=== PATIENT | female | born 1940 | race Caucasian/White ===

== ENCOUNTER 2017-09-02 17:07 | Emergency (ER) | payer MEDICARE, OTHER, SELFPAY ==
[2017-09-02 17:09] VITALS: BP 160/90; PULSE 74; RESP 18; TEMP 37.2; O2SAT 97
--- NOTE | 2017-09-02 17:29 | EKG12_ITS ---
Test Reason : N/V Blood Pressure : / mmHG Vent. Rate : 068 BPM Atrial Rate : 068 BPM P-R Int : 130 ms QRS Dur : 086 ms QT Int : 400 ms P-R-T Axes : 079 065 069 degrees QTc Int : 425 ms Normal sinus rhythm Nonspecific ST abnormality Abnormal ECG Confirmed by BETTIE SNOW, QUETA ([id number]), image editor DIANELYS GREENBERG ([id number]) on 09/07/2017 2:13:03 PM Referred By: ESTHELA Confirmed By:QUETA ALEXANDRE MD
--- NOTE | 2017-09-02 17:29 | CT_ITS ---
STUDY: CT BRAIN WITHOUT CONTRAST REASON FOR EXAM: Female, 77 years old. Headache, nausea/vomiting RADIATION DOSAGE (If Supplied By Facility): CTDIvol = ( 60.81 ) mGy, DLP = ( 998.67 ) mGycm TECHNIQUE: Transaxial CT imaging of the brain was performed without administration of intravenous contrast material. Individualized dose optimization techniques were used for this CT. COMPARISON: None. FINDINGS: Normal soft tissue structures. Normal calvarium. Slightly prominent size ventricles and extra-axial spaces with frontal atrophy. Mild white matter microangiopathic ischemic changes of the cerebral hemispheres. Normal basal ganglia and thalami. Normal brainstem. Normal cerebellum. There is no intracranial hemorrhage. There are no findings of an acute ischemic infarction. Normal visualized paranasal sinuses. CT/Brain/Head without Contrast IMPRESSION: Age-related and chronic changes of the brain. Electronically Signed: Morris Gaston DO at 18:22 EDT Tel [phone], Service support ,
[2017-09-02 17:37] VITALS: PULSE 69; RESP 15
[2017-09-02] MEDS: Ondansetron 4 MG/2 ML Vial IV (17:48)
[2017-09-02] MEDS: 0.9% Normal Saline 1,000 ML 150 ML IV (17:48)
[2017-09-02 18:01] LABS: Absolute Lymphocyte Count 4.71 X10^3/ul (0.83-4.51); Absolute Neutrophil Count 18.4 X10^3/uL (2.0-7.7); Basophil# 0.03 X10^3/uL; Basophil% 0.1 % (0-1); Eosinophil# 0.02 X10^3/uL; Eosinophils% 0.1 % (0-5); Hematocrit 43.7 % (37-47); Hemoglobin 14.8 g/dl (12.0-15.0); Lymphocyte # 4.71 X10^3/ul (4.0); Lymphocyte % 19.6 % (19-41); Mean Corp Hgb Conc 33.9 g/gl (32-36); Mean Corpuscular Hgb 31.6 pg (27.0-32.0); Mean Corpuscular Volume 93.4 fL (81-99); Mean Platelet Vol. 11.3 fl (6.2-12.0); Monocyte# 0.68 X10^3/uL; Monocyte% 2.8 % (0-10); Neutrophil # 18.42 X10^3/uL (2.7-7.7); Neutrophil % 76.9 % (47-70); Platelet Count 319 K/mm3 (150-450); RBC Distribution Width CV 13.4 % (11.6-14.6); RBC Distribution Width SD 44.2 fl (35.1-43.9); Red Blood Count 4.68 M/mm3 (4.2-5.4)
[2017-09-02] MEDS: Meclizine HCl 25 MG Tablet PO (18:05)
[2017-09-02 18:06] LABS: POSITIVE COUNT NO; POSITIVE DIFFERENTIAL NO; POSITIVE MORPHOLOGY NO
[2017-09-02 18:38] LABS: Anion Gap 9 (5-15); BUN 20 mg/dL (7-18); BUN/Creat Ratio 30.6 RATIO (10-20); Calcium,Total 9.2 mg/dL (8.5-10.1); Chloride 108 mmol/L (98-107); Creatinine, Serum 0.65 mg/dL (0.55-1.02); EST Glomerular Filtration Rate 94 mL/min (>60); Est Glom Filt Rate - Afr Amer 114 mL/min (>60); Estimated Creatinine Clearance 36.68 ml/min; Glucose 147 mg/dL (74-106); Lipase 206 U/L (73-393); Potassium 4.2 mmol/L (3.5-5.1); Sodium Level 144 mmol/L (136-145)
--- NOTE | 2017-09-02 18:50 | RAD_ITS ---
STUDY: X-RAY CHEST REASON FOR EXAM: Female, 77 years old. Cough TECHNIQUE: Frontal and lateral views COMPARISON: None. FINDINGS: The lungs are slightly hyperaerated. There is no demonstrated pleural abnormality. Mildly prominent size heart. Normal mediastinum and porfirio. There are metallic densities of the mediastinum. Normal visualized pulmonary arteries. Normal visualized aortic arch and descending thoracic aorta. Degenerative changes of the thoracic spine. Normal visualized ribs, clavicles, and shoulders. There is no demonstrated abnormality of the visualized soft tissue structures of the upper abdomen. RAD/Chest PA and Lateral IMPRESSION: Mildly prominent cardiac shadow. No acute pulmonary pathology. Electronically Signed: Morris Gaston DO at 19:02 EDT Tel [phone], Service support ,
[2017-09-02 19:25] VITALS: BP 147/68; PULSE 68; RESP 14; O2SAT 100
--- NOTE | 2017-09-02 19:59 | ED.VISSUMM ---
- ER Visit Summary Date of Service: 09/02/17 Chief Complaint: [Dizziness and vomiting] History of Present Illness: The patient is a 77 F [presents to the emergency department with complaint of dizziness and vomiting that started prior to coming the emergency department. 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 Patient took her medications when she got home and then went to a [facility] appointment. While sitting at the [employer] she developed dizziness initially that she describes as spinning sensation followed by vomiting. Patient is vomited multiple times and presents for evaluation. Patient denies any pain in her head. She denies any chest pain or shortness of breath. Patient states that she has had vertiginous type symptoms in the past off and on but not this severe. Patient does have a history of non-Hodgkin's lymphoma and COPD. There is question as to whether or not her symptoms are related to the Augmentin and prednisone that she started today.] Physical Examination: [HEENT-PERRLA, EOMI. Cranial nerves II through XII grossly intact. TMs clear. Mucous membranes moist. No adenopathy. Cardiovascular-regular rate and rhythm without murmur or ectopy Lungs-clear to auscultation, chest wall stable without crepitus or subcu emphysema Abdomen-normoactive bowel sounds, soft, nontender, no rebound or rigidity, no peritoneal signs. Neuro equn-kalqzk-khxy and heel rahman testing within normal limits, negative Romberg, negative pronator drift, fundi benign. Hallpike maneuver performed was positive for nystagmus with head turn to the right and left. Extremities-intact ?4, normal range of motion, normal pulses, atraumatic] Test Results: [EKG obtained on arrival shows sinus rhythm with a ventricular rate of 60 bpm with some nonspecific ST changes noted. CBC with differential showed an elevated white count of 24,000, hemoglobin 14.8, hematocrit 44, platelets 319. Chemistries unremarkable. Lipase was 206. Troponin is less than 0.015. CT scan of the brain without contrast showed chronic involutional changes otherwise nothing acute. Chest x-ray showed nothing acute.] Emergency Department Course and Treatment: [Patient was medicated with Zofran and Antivert and had significant improvement in her symptoms. Patient was able to ambulate to the bathroom and back without difficulty. Patient had no further vomiting. At this point I feel her elevated white blood cell count likely related to her non-Hodgkin's lymphoma in combination with reactive phenomenon due to the vomiting as well as the fact that she has started prednisone. Patient states that with her non-Hodgkin's lymphoma which she is currently being followed by Dr. Mcmillan he has had intermittent spikes in her white blood cell counts. I do not see any other etiology of infection.] Treatment Plan: [Patient will be discharged home with a prescription for Antivert as well as Zofran. Patient advised to return if persistent dizziness, vomiting, or condition should worsen in any way. At this point my suspicion is that patient likely has vertigo and her symptoms were not related to the prednisone and Augmentin. If patient should notice that soon after taking these medications tomorrow her symptoms return then we may need to look at discontinuing these medications.] Disposition: [Discharged home in stable condition] Impression: [Vertigo Vomiting] This note was generated with [employer] dictation software. It may contain incorrect words, spelling, and punctuation that were not noted in review of the chart prior to signing ED Disposition - Plan for ED Patient: Chief Complaint: Nausea/Vomiting/Diarrhea Referrals: Donnell Tse MD [Primary Care Provider] -
--- NOTE | 2017-09-02 20:04 | ED.DCSUM_ITS ---
- ER Visit Summary Date of Service: 09/02/17 Chief Complaint: [Dizziness and vomiting] History of Present Illness: The patient is a 77 F [presents to the emergency department with complaint of dizziness and vomiting that started prior to coming the emergency department. 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 Patient took her medications when she got home and then went to a [facility] appointment. While sitting at the [employer] she developed dizziness initially that she describes as spinning sensation followed by vomiting. Patient is vomited multiple times and presents for evaluation. Patient denies any pain in her head. She denies any chest pain or shortness of breath. Patient states that she has had vertiginous type symptoms in the past off and on but not this severe. Patient does have a history of non-Hodgkin's lymphoma and COPD. There is question as to whether or not her symptoms are related to the Augmentin and prednisone that she started today.] Physical Examination: [HEENT-PERRLA, EOMI. Cranial nerves II through XII grossly intact. TMs clear. Mucous membranes moist. No adenopathy. Cardiovascular-regular rate and rhythm without murmur or ectopy Lungs-clear to auscultation, chest wall stable without crepitus or subcu emphysema Abdomen-normoactive bowel sounds, soft, nontender, no rebound or rigidity, no peritoneal signs. Neuro ufyl-dxmdwe-vixd and heel rahman testing within normal limits, negative Romberg, negative pronator drift, fundi benign. Hallpike maneuver performed was positive for nystagmus with head turn to the right and left. Extremities-intact ?4, normal range of motion, normal pulses, atraumatic] Test Results: [EKG obtained on arrival shows sinus rhythm with a ventricular rate of 60 bpm with some nonspecific ST changes noted. CBC with differential showed an elevated white count of 24,000, hemoglobin 14.8, hematocrit 44, platelets 319. Chemistries unremarkable. Lipase was 206. Troponin is less than 0.015. CT scan of the brain without contrast showed chronic involutional changes otherwise nothing acute. Chest x-ray showed nothing acute.] Emergency Department Course and Treatment: [Patient was medicated with Zofran and Antivert and had significant improvement in her symptoms. Patient was able to ambulate to the bathroom and back without difficulty. Patient had no further vomiting. At this point I feel her elevated white blood cell count likely related to her non-Hodgkin's lymphoma in combination with reactive phenomenon due to the vomiting as well as the fact that she has started prednisone. Patient states that with her non-Hodgkin's lymphoma which she is currently being followed by Dr. Mcmillan he has had intermittent spikes in her white blood cell counts. I do not see any other etiology of infection.] Treatment Plan: [Patient will be discharged home with a prescription for Antivert as well as Zofran. Patient advised to return if persistent dizziness, vomiting, or condition should worsen in any way. At this point my suspicion is that patient likely has vertigo and her symptoms were not related to the prednisone and Augmentin. If patient should notice that soon after taking these medications tomorrow her symptoms return then we may need to look at discontinuing these medications.] Disposition: [Discharged home in stable condition] Impression: [Vertigo Vomiting] This note was generated with [employer] dictation software. It may contain incorrect words, spelling, and punctuation that were not noted in review of the chart prior to signing ED Disposition - Plan for ED Patient: Chief Complaint: Nausea/Vomiting/Diarrhea Referrals: Donnell Tse MD [Primary Care Provider] -
--- NOTE | 2017-09-02 20:04 | ED.DEP ---
ED Disposition - Plan for ED Patient: Chief Complaint: Nausea/Vomiting/Diarrhea Instructions: ED BPV Vertigo, ED Nausea Vomiting Prescriptions: Ondansetron [Zofran Odt] 4 mg PO Q8H PRN PRN #10 tab PRN Reason: Nausea Meclizine HCl [Antivert] 25 mg PO 4X/DAY PRN PRN #20 tab PRN Reason: Dizziness Referrals: Donnell Tse MD [Primary Care Provider] - 3-5 Days
[2017-09-02 20:19] VITALS: BP 155/100; PULSE 73; RESP 16; O2SAT 96
--- NOTE | 2017-09-02 20:20 | ED.RN ---
PT GIVEN WRITTEN AND VERBAL DISCHARGE INSTRUCTIONS AND HOME GOING PRESCRIPTIONS. PT VERBALIZES UNDERSTANDING AND DENIES ANY FURTHER QUESTIONS. THIS RN D/C IV. ANGIOCATH INTACT. SITE COVERED WITH 2X2 GAUZE AND PAPER TAPE. THIS RN ASSISTS PT IN DRESSING AND AMBULATES WITH PT OUT TO FAMILY VEHICLE.
== END 2017-09-02 20:21 | disposition home or self-care (01) ==
LOC: ED 18:31
PROVIDERS: Emergency Provider Emergency Medicine; Family Provider Family Medicine; PCP Family Medicine
DX: R42 Dizziness and giddiness (principal); R11.10 Vomiting, unspecified; C85.90 Non-Hodgkin lymphoma, unspecified, unspecified site; J44.9 Chronic obstructive pulmonary disease, unspecified; Z90.710 Acquired absence of both cervix and uterus; Z79.899 Other long term (current) drug therapy
CPT/HCPCS: 70450; 71046; 80048; 83690; 84484; 85025; 93005; 96361; 96374; 99285; J7030; A4216; J2405

== ENCOUNTER → 2018-03-15 06:43 | Outpatient (CLI) | payer MEDICARE, OTHER, SELFPAY ==
--- NOTE | 2018-03-15 06:58 | MRI_ITS ---
STUDY: MRI BRAIN WITH AND WITHOUT CONTRAST (ATTENTION INTERNAL AUDITORY CANALS - I.A.C.'s) REASON FOR EXAM: Female, 77 years old. dizziness, LEFT ear tinnitus, x several months. TECHNIQUE: Standardized multiplanar fat and water weighted pulse sequences were obtained. 5 ml of Gadavist contrast material was administered intravenously for the contrast portion of the examination. COMPARISON: CT of the head dated September 02 FINDINGS: Normal bilateral temporal bones. Normal bilateral internal auditory canals. There is no demonstrated intracanalicular or cisternal vestibular schwannoma (acoustic neuroma). Normal bilateral cochlea, vestibules and semicircular canals. There is approximately 0.5 x 2.0 cm enhancing mass at the right prepontine region in close proximity of the cisternal 5th cranial nerve. There is mild cerebral atrophy with widening of the extra-axial spaces and ventricular dilatation. There are multiple white matter hyperintensities, distributed throughout the deep white matter tracts of the cerebral hemispheres, consistent with mild chronic white matter ischemic changes. Normal bilateral basal ganglia. Normal thalami. Normal flow voids within the major intracranial circulation suggesting patency by spin echo criteria. Normal venous enhancement. There is no enhancing intra-axial or extra-axial abnormality. There is no extra-axial fluid accumulation. Normal sella turcica, pituitary gland, infundibular stalk, optic chiasm and hypothalamus. Normal tectal plate and pineal gland. Normal midbrain, emily and medulla. Normal cerebellum. Normal basal cisterns. No demonstrated orbital abnormality, within the constraints of a routine brain study. There is mucoperiosteal inflammatory disease of the paranasal sinuses consistent with mild chronic sinusitis. MRI/Brain W/WO Contrast IMPRESSION: Normal bilateral internal auditory canals (I.A.C's). 2 cm right prepontine enhancing lesion, most compatible with meningioma. Electronically Signed: Jose Alvarez MD at 16:00 EST Tel , Service support ,
[2018-03-15 07:45] LABS: CREATININE FINGERSTICK 0.8 mg/dL (0.55-1.02); EGFR FINGERSTICK > 60.0000 mL/min (>60)
--- OUTSIDE RECORDS SUMMARY | 2018-05-17 06:57 | XMS RPT_ITS ---
:1940 Author Organization OHIP Care Team Providers Name Role Phone JEY TSE Referring Unavailable JEY TSE Referring Unavailable JEY TSE Attending Unavailable JEY TSE Attending Unavailable JEY TSE Attending Unavailable KRUPA ANGULO Attending Unavailable JEY TSE Referring Unavailable JEY TSE Attending Unavailable JEY TSE Referring Unavailable JEY TSE Referring Unavailable JEY TSE Attending Unavailable JEY TSE Referring Unavailable ELENITA ARDON (TYPE PHOTOGRAPHY SUPERVISOR) Attending Unavailable JESS BUNDY (PA) Attending Unavailable JESS BUNDY (PA) Referring Unavailable JESS BUNDY (PA) Referring Unavailable Remberto WYATT (PA-C) Attending Unavailable ALVIN PENNINGTON Attending Unavailable JEY TSE Referring Unavailable ALVIN PENNINGTON Referring Unavailable Dennis Mendosa Attending Unavailable Dennis Mendosa Referring Unavailable Jey Tse Primary Care Unavailable Ronak Roper Attending Unavailable Jey Tse Referring Unavailable Thao Archer Attending Unavailable Ronak Roper Attending Unavailable Jey Tse Referring Unavailable Jey Tse Primary Care Unavailable Caro Palacios Attending Unavailable PROBLEMS PROBLEMS DATE TYPE CONDITION / CODE ATTENDING STATUS SOURCE 05/11/2016 Active Lymphoid leukemia, NA Active [place] unspecified not [facility] Main having achieved [place] remission / Repository C91.90(ICD-10) 03/18/2018 Active 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 [place] (current) drug [facility] therapy / [place] Z79.899(ICD-10) Repository 03/18/2018 Active Cough / R05(ICD-10) NA Active [place] [facility] [place] Repository 03/18/2018 Active Non-Hodgkin lymphoma, NA Active [place] unspecified, Clinic Main unspecified site / [place] C85.90(ICD-10) Repository 03/18/2018 Active Chronic obstructive NA Active [place] pulmonary disease, Clinic Main unspecified / [place] J44.9(ICD-10) Repository 11/20/2017 Active Encounter for NA Active [place] immunization / Clinic Main Z23(ICD-10) [place] Repository 09/29/2017 Active Hyperosmolality and NA Active [place] hypernatremia / Clinic Main E87.0(ICD-10) [place] Repository 09/29/2017 Active Other abnormal NA Active [place] findings in urine / Clinic Main R82.99(ICD-10) [place] Repository 09/16/2017 Active Diarrhea, unspecified NA Active [place] / R19.7(ICD-10) Clinic Main [place] Repository 09/16/2017 Active Hyperglycemia, NA Active [place] unspecified / Clinic Main R73.9(ICD-10) [place] Repository 10/27/2017 Unknown R42 - Dizziness and Ungur, Remus Active [place] giddiness / [facility] R42(ICD-10) Hospital Repository 05/11/2016 Active 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 not having [place] achieved remission / Repository C91.10(ICD-10) PROCEDURES PROCEDURES No Procedure Records FoundRESULTS RESULTS CBC AND DIFFERENTIAL Collected: 03/18/2018 Status: F Source: [place] 11:46 AM [facility] REPOSITORY TYPE CODE TESTS RESULT OUT OF REFERENCE UNITS RANGE LAB WBC 3.70-11.00 k/uL WBC 7.86 LAB RBC 3.90-5.20 m/uL RBC 4.90 LAB HGB 11.5-15.5 g/dL Hemoglobin 15.3 LAB HCT 36.0-46.0 % High Hematocrit 47.1 LAB MCV 80.0-100.0 fL MCV 96.1 LAB MCH 26.0-34.0 pG MCH 31.2 LAB MCHC 30.5-36.0 g/dL MCHC 32.5 LAB RDWCV 11.5-15.0 % RDW-CV 13.9 LAB PLTCT 150-400 k/uL Low Platelet Count 134 LAB MPV 9.0-12.7 fL MPV 12.4 LAB ANEUT % Neut% 55.3 LAB AANEUT 1.45-7.50 k/uL Abs Neut 4.32 LAB ALYMP % Lymph% 35.1 LAB AALYMP 1.00-4.00 k/uL Abs Lymph 2.76 LAB AMONO % [place]% 8.5 LAB AAMONO <0.87 k/uL Abs [place] 0.67 LAB AEOS % Eosin% 0.6 LAB AAEOS <0.46 k/uL Abs Eosin 0.05 LAB ABASO % Baso% 0.5 LAB AABASO <0.11 k/uL Abs Baso 0.04 LAB AUNRBC 0 /100 WBC NRBCs 0.0 LAB ABNRBC <0.01 k/uL Absolute nRBC <0.01 LAB DTYP DTYPE Auto Diff Performed By: #### CBCDIF, BMP #### [facility] [address] [place] [id number] BASIC METABOLIC PANL Collected: 03/18/2018 Status: F Source: [place] 11:46 AM [facility] MAIN CAMPUS REPOSITORY TYPE CODE TESTS RESULT OUT OF REFERENCE UNITS RANGE LAB GLU 74-99 mg/dL Glucose 95 Result Comment: The [place] Diabetes Association (ADA) provides guidance for cutoff values for fasting glucose and random glucose. The ADA defines fasting as no caloric intake for at least 8 hours. Fas ting plasma glucose results between 100 to 125 mg/dL indicate increased risk for diabetes (prediabetes). Fasting plasma glucose results greater than or equal to 126 mg/dL meet the criteria for diagnosis of diabetes. In the absence of unequivocal hyperglycemia, results should be confirmed by repeat testing. In a patient with classic symptoms of hyperglycemia or hyperglycemic crisis, random plasma glucose results greater than or equal to 200 mg/dL meet the criteria for diagnosis of diabetes. Reference: Standards of Medical Care in Diabetes 2016, [place] Diabetes Association. Diabetes Care. 2016.39(Suppl 1). LAB BUN 7-21 mg/dL BUN 12 LAB CRET 0.58-0.96 mg/dL Creatinine 0.68 LAB NA 136-144 mmol/L Sodium 142 LAB K 3.7-5.1 mmol/L Potassium Low 3.6 LAB CL 97-105 mmol/L Chloride 102 LAB CO2 22-30 mmol/L CO2 24 LAB AGAP 9-18 mmol/L Anion Gap 16 LAB CA 8.5-10.2 mg/dL Calcium, Total 9.3 LAB GFRAA eGFR- Amer. >60 LAB GFRNAA . eGFR-All Other Races >60 Result Comment: eGFR (Estimated GFR) Units of measure: mL/min/1.73 meters squared eGFR is derived from the reexpressed MDRD Study equation using the following parameters: serum creatinine, age, gender and race. The creatinine assay has been calibrated to be traceable to IDMS. An eGFR <60 mL/min/1.73m2 for >3 months is consistent with chronic kidney disease. Refer to KDOQI guidelines for clinical interpretation. In patients with unstable renal function, e.g. those with acute kidney injury, the eGFR may not accurately reflect actual GFR. Performed By: #### CBCDIF, BMP #### [facility] [address] [place], [place] [address] LIPID PANEL, BASIC Collected: 03/18/2018 Status: F Source: [place] 11:46 AM [facility] MAIN CAMPUS REPOSITORY TYPE CODE TESTS RESULT OUT OF REFERENCE UNITS RANGE LAB CHOL <200 mg/dL Cholesterol High 209 Result Comment: <200 mg/dL, Desirable 200-239 mg/dL, Borderline high >239 mg/dL, High LAB TRIGLY <150 mg/dL Triglyceride 86 Result Comment: <150 mg/dL, Normal 150-199 mg/dL, Borderline high 200-499 mg/dL, High >499 mg/dL, Very high LAB HDL >39 mg/dL HDL-Cholesterol 85 Result Comment: 40-59 mg/dL, Acceptable >59 mg/dL, High: Negative risk factor for coronary heart disease <40 mg/dL, Low: Positive risk factor for coronary heart disease LAB LDL <100 mg/dL LDL-Cholesterol High 107 Result Comment: <100 mg/dL, Optimal 100-129 mg/dL, Near optimal/above optimal 130-159 mg/dL, Borderline high 160-189 mg/dL, High >189 mg/dL, Very high Secondary prevention optimal LDL Cholesterol levels are recommended to be < 70 mg/dL LAB NONHDL <130 mg/dL Non HDL Cholesterol 124 Result Comment: <130 mg/dL, Optimal 130-159 mg/dL, Near optimal/above optimal 160-189 mg/dL, Borderline high 190-219 mg/dL, High >219 mg/dL, Very high Secondary prevention optimal non HDL Cholesterol levels are recommended to be < 100 mg/dL LAB FT hrs Fasting Time 12 LAB VLDL <30 mg/dL VLDL Cholesterol 17 LAB TCHDL <5.10 TC:HDL Ratio 2.46 LAB LDLHDL <2.54 LDL:HDL Ratio 1.26 Result Comment: Reference: 1. National Cholesterol Education Program ATP III Guideline At-A-Glance Quick Desk Reference: National Heart, Lung, and Blood [place]. National Institutes of Health. 2001: NIH Publication No. 01-3305. 2. An International Atherosclerosis Society position paper: global recommendations for the management of dyslipidemia: executive summary, Atherosclerosis. 2014: 232(2):410-413. Performed By: #### LIPB #### [facility] [address], [place] [address] XR CHEST 2V FRONTAL/LAT Observed: 03/18/2018 Status: F Source: [place] 11:25 AM [facility] MAIN [facility] REPOSITORY * * *Final Report* * * DATE OF EXAM: Mar 18 2018 11:25AM WOX [id number] - XR CHEST 2V FRONTAL/LAT / PROCEDURE REASON: Cough * * * * Physician Interpretation * * * * EXAMINATION: CHEST RADIOGRAPH (2 VIEW FRONTAL and LATERAL) CLINICAL HISTORY: Cough MQ: XC2_5 Comparison: 06/05/2016 RESULT: Lines, tubes, and devices: None. Lungs and pleura: No consolidation. No lung mass. No pleural effusion. Lung hyperexpansion consistent with COPD. Cardiomediastinal silhouette: Normal cardiac size. Stable aortic ectasia Other: Surgical clips in the deep left hilar region. IMPRESSION: No acute radiographic abnormality. School Social Worker: TAMMY Transcribe Date/Time: Mar 18 2018 11:53A Dictated by : KEYONA MANZO MD This examination was interpreted and the report reviewed and electronically signed by: KEYONA MANZO MD on Mar 18 2018 11:54AM EST [id number] PROGRESS Observed: 03/18/2018 Status: COMPLETED Source: [place] 11:[address] [facility] REPOSITORY HNO ID: [id number] Author: Sade Tierney (Rt) Olivia Florentino Service: (none) Author Type: Fitness Management Director Type: Progress Notes Filed: 03/18/2018 11:25 AM Note Text: Radiology Service Progress Note PATIENT NAME: Madison Penaloza DATE OF SERVICE: March 18, 2018 TIME: 11:16 AM PATIENT IDENTITY VERIFICATION COMPLETED USING TWO (2) METHODS: Patient confirmed name verbally and Date of . PATIENT GENDER DATA: Female. status: : No status: NO. PATIENT RELEVANT IMPLANT DATA REVIEWED: Not Applicable RADIOLOGY DEPARTMENT: General X-ray: Exam(s) Completed: Chest X-Ray PERIPHERAL IV DATA: Not applicable SIGNED BY: RT Bethanie March 18, 2018 11:16 AM PROGRESS Observed: 03/18/2018 Status: COMPLETED Source: [place] 10:[address] [facility] REPOSITORY HNO ID: [id number] Author: Jey Tse Service: (none) Author Type: Physician Type: Progress Notes Filed: 03/19/2018 10:26 AM Note Text: Patient presents with: URI HPI: Patient presents today for office visit for follow up. Nursing Notes: Tuyet Holm LPN 03/18/2018 10:17 AM Signed Patient presents today complaining of increased cough. Duration: 3-4 days ago. Cough is productive:yes states that is milky white. Fever: :No. Shortness of breath:YES. Sore throat :scratchy. Ear Pain :left ear. See note below saw ENT. Chest Pain :YES. Previous treatments tried: mucinex and just used last of phenergan DM prescribed which helps some. Saw ENT for ear trouble and then had MRI is waiting for call from [facility] main neurosurgeon to see ENT there. MRI printed for physician review. Saw Dr. Mendosa. Had mri that was normal for her IAC. 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 Has some mild inflammatory paranasal sinus disease with chronic sinusitis. She seemed like she was improving and then started up again. Dr Mendosa was seeing her for some dizziness she has been having. Has some hoarseness but she thinks he looked at her vocal cords as well. Does not feel as bad but feels like is getting worse again. Having cough which is white. MEDICATIONS: Current Outpatient Prescriptions: Promethazine-DM (PHENERGAN-DM) 6.25-15 mg/5 mL syrup Take 5 mL by mouth four times daily as needed. budesonide-formoterol (SYMBICORT) 160-4.5 mcg/actuation inhaler Inhale 2 Puffs as instructed twice daily. tiotropium (SPIRIVA WITH HANDIHALER) 18 mcg inhalation capsule INHALE THE CONTENTS OF ONE CAPSULE ONCE DAILY VENTOLIN HFA 90 mcg/actuation inhaler INHALE TWO PUFFS BY MOUTH 4 TIMES DAILY NEEDED FOR WHEEZING OR SHORTNESS OF BREATH fluticasone (FLONASE) 50 mcg/actuation nasal spray Use 1 [place] in each nostril once daily. alendronate (FOSAMAX) 70 mg tablet Take 1 tablet by mouth once each week. Take with a full glass of water, on an empty stomach; do NOT lie down for 30minutes. Cholecalciferol, Vitamin D3, (VITAMIN D-3) 2,000 unit cap Take 1 capsule by mouth once daily. CALCIUM ORAL Take 1 tablet by mouth once daily. MAGNESIUM ORAL Take 1 tablet by mouth once daily. doxycycline monohydrate (MONODOX) 100 mg capsule Take 1 capsule by mouth twice daily. No current facility-administered medications for this visit. ALLERGIES: ALLERGIES Allergen Reactions - Augmentin [Amoxicil* Vomiting - Codeine GI Upset, Vomiting - Shellfish Containin* Swelling, Anaphylaxis, Shortness of Breath - Bacitracin Itching - Latex Rash PAST MEDICAL HISTORY Diagnosis Date - Breast cancer (HCC) Left mastectomy. Right mastectomy. Bilateral reconstructions. No chemo/XRT. - Cervical cancer (HCC) Remote. SOHEILA/BSO. No chemo or XRT. - COPD (chronic obstructive pulmonary disease) (HCC) - Mitral valve regurgitation - Non Hodgkin's lymphoma (HCC) About 14 years ago. No XRT, chemotherapy. Watchful waiting. - Osteoporosis PAST SURGICAL HISTORY Procedure Laterality Date - BREAST RECONSTRUCTION - CATARACT EXTRACTION HX Bilateral 2011 - CATARACT SURGERY, COMPLEX - COLONOSCOPY W/BX 10/12/2016 - DANDC DIAG AND/OR THERAP, NOT OB - EGD - EGD W/O [facility] SPECIMEN W/BX 10/12/2016 - HEMORRHOIDECTOMY - MASTECTOMY HX Bilateral 1982 - PAST SURGICAL HISTORY OF Bronchial artery embolization, left lung - PAST SURGICAL HISTORY OF 2002 Lymph node removal on left arm - SLING OPER STRES INCONTINENCE - TOT ABDOMINL HYSTERECTOMY 1984 FAMILY HISTORY Problem Relation Age of Onset - Alzheimer's Disease Mother in her 80s. - Aneurysm Father AAA at age 61. - other (Chronic bronchitis.) Father - other (Other) Brother Parkinson's vs [place]'s. age 61. Social History Marital status: Spouse name: Years of education: Number of children: Social History Main Topics Smoking status: Former Smoker Packs/day: 1.00 Years: 30.00 Types: Cigarettes Quit date: 02/22/1999 Smokeless tobacco: Never Used Comment: Father smoked in childhood home. Alcohol use: Yes 6.0 oz/week Glasses of Wine (5oz): 4 per week Comment: With dinner. Drug use: No Reviewed current medications, allergies, past medical history, surgical history, family history and social history today. REVIEW OF SYSTEMS All other reviewed and negative other than HPI. VITALS: BP 136/72 Pulse 77 Temp 37 ?C (98.6 ?F) (Tympanic) SpO2 98% Last 4 Encounter Wt Readings: Date: Wt: 02/07/2018 49.9 kg (110 lb) 12/23/2017 49.9 kg (110 lb) 09/16/2017 47.6 kg (105 lb) 09/07/2017 48.1 kg (106 lb) PHYSICAL EXAMINATION: General appearance: Well appearing, alert, in no acute distress, well-hydrated, well nourished. Skin: Skin color, texture, turgor normal, no suspicious rashes or lesions Head: Normocephalic, no masses, lesions, tenderness or abnormalities Eyes: Anicteric sclera. Pupils are equally round and reactive to light. Extraocular movements are intact. Ears: External ears normal, canals clear Nose/Sinuses: Nares normal, septum midline, mucosa normal, no drainage or sinus tenderness Oropharynx: Lips, mucosa, and tongue normal, teeth and gums normal, oropharynx normal and purulent drainage in posterior pharynx Neck: Negative findings: no adenopath Lungs: lungs clear to auscultation. No wheezing, rhonchi, rales Heart: RRR without murmur, gallop, or rubs. No ectopy Abdomen: Normal abdominal exam, Abdomen soft, non-tender. Bowel sounds normal. No masses, organomegaly Extremities: No deformities, edema, skin discoloration, clubbing or cyanosis. Good capillary refill. ASSESSMENT/PLAN: 1. Cough - ICD9: 786.2, ICD10: R05 (primary diagnosis) - check labs and Call if symptoms worsen at all or if not better in one to two weeks - XR CHEST 2V FRONTAL/LAT - CBC + DIFF - BASIC METABOLIC PNL - see med orders. - Call if symptoms worsen at all or if not better in one to two weeks 2. Bacterial sinusitis - ICD9: 473.9, 041.9, ICD10: J32.9, B96.89 3. Meningioma (HCC) - ICD9: 225.2, ICD10: D32.9 Follow with neursurgery 4. Vertigo - ICD9: 780.4, ICD10: R42 - per ent and neurosurgery 5. CLL (chronic lymphocytic leukemia) ([facility]) - ICD9: 204.10, ICD10: C91.90 - check labs. - CBC + DIFF - BASIC METABOLIC PNL 6. Non-Hodgkin's lymphoma, unspecified body region, unspecified non-Hodgkin lymphoma type (HCC) - ICD9: 202.80, ICD10: C85.90 Check labs - CBC + DIFF - BASIC METABOLIC PNL 7. Chronic obstructive pulmonary disease, unspecified COPD type (HCC) - ICD9: 496, ICD10: J44.9 - CBC + DIFF - BASIC METABOLIC PNL 8. Bronchitis - ICD9: 490, ICD10: J40 - PROMETHAZINE-DM 6.25 MG-15 MG/5 ML ORAL SYRUP Jey Tse MD CNOV Observed: 03/18/2018 Status: COMPLETED Source: [place] 10:[address] [facility] REPOSITORY Office Visit (FAMPWS) MADISON PENALOZA ([id number]) 1940 F Date Time Provider Department 03/18/18 10:00 AM JEY TSE During your visit today, we recorded the following information about you: Temperature Pulse Blood pressure 98.6 degrees 77/minute 136/72 Tuyet Holm LPN 03/18/2018 10:17 AM Signed Patient presents today complaining of increased cough. Duration: 3-4 days ago. Cough is productive:yes states that is milky white. Fever: :No. Shortness of breath:YES. Sore throat :scratchy. Ear Pain :left ear. See note below saw ENT. Chest Pain :YES. Previous treatments tried: mucinex and just used last of phenergan DM prescribed which helps some. Saw ENT for ear trouble and then had MRI is waiting for call from [facility] main neurosurgeon to see ENT there. MRI printed for physician review. Jey Tse MD 03/19/2018 10:26 AM Signed Patient presents with: URI HPI: Patient presents today for office visit for follow up. Nursing Notes: Tuyet Holm LPN 03/18/2018 10:17 AM Signed Patient presents today complaining of increased cough. Duration: 3-4 days ago. Cough is productive:yes states that is milky white. Fever: :No. Shortness of breath:YES. Sore throat :scratchy. Ear Pain :left ear. See note below saw ENT. Chest Pain :YES. Previous treatments tried: mucinex and just used last of phenergan DM prescribed which helps some. Saw ENT for ear trouble and then had MRI is waiting for call from [facility] main neurosurgeon to see ENT there. MRI printed for physician review. Saw Dr. Mendosa. Had mri that was normal for her IAC. 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 Has some mild inflammatory paranasal sinus disease with chronic sinusitis. She seemed like she was improving and then started up again. Dr Mendosa was seeing her for some dizziness she has been having. Has some hoarseness but she thinks he looked at her vocal cords as well. Does not feel as bad but feels like is getting worse again. Having cough which is white. MEDICATIONS: Current Outpatient Prescriptions: Promethazine-DM (PHENERGAN-DM) 6.25-15 mg/5 mL syrup Take 5 mL by mouth four times daily as needed. budesonide-formoterol (SYMBICORT) 160-4.5 mcg/actuation inhaler Inhale 2 Puffs as instructed twice daily. tiotropium (SPIRIVA WITH HANDIHALER) 18 mcg inhalation capsule INHALE THE CONTENTS OF ONE CAPSULE ONCE DAILY VENTOLIN HFA 90 mcg/actuation inhaler INHALE TWO PUFFS BY MOUTH 4 TIMES DAILY NEEDED FOR WHEEZING OR SHORTNESS OF BREATH fluticasone (FLONASE) 50 mcg/actuation nasal spray Use 1 [place] in each nostril once daily. alendronate (FOSAMAX) 70 mg tablet Take 1 tablet by mouth once each week. Take with a full glass of water, on an empty stomach; do NOT lie down for 30minutes. Cholecalciferol, Vitamin D3, (VITAMIN D-3) 2,000 unit cap Take 1 capsule by mouth once daily. CALCIUM ORAL Take 1 tablet by mouth once daily. MAGNESIUM ORAL Take 1 tablet by mouth once daily. doxycycline monohydrate (MONODOX) 100 mg capsule Take 1 capsule by mouth twice daily. No current facility-administered medications for this visit. ALLERGIES: ALLERGIES Allergen Reactions - Augmentin [Amoxicil* Vomiting - Codeine GI Upset, Vomiting - Shellfish Containin* Swelling, Anaphylaxis, Shortness of Breath - Bacitracin Itching - Latex Rash PAST MEDICAL HISTORY Diagnosis Date - Breast cancer (HCC) Left mastectomy. Right mastectomy. Bilateral reconstructions. No chemo/XRT. - Cervical cancer (HCC) Remote. SOHEILA/BSO. No chemo or XRT. - COPD (chronic obstructive pulmonary disease) (HCC) - Mitral valve regurgitation - Non Hodgkin's lymphoma (HCC) About 14 years ago. No XRT, chemotherapy. Watchful waiting. - Osteoporosis PAST SURGICAL HISTORY Procedure Laterality Date - BREAST RECONSTRUCTION - CATARACT EXTRACTION HX Bilateral 2011 - CATARACT SURGERY, COMPLEX - COLONOSCOPY W/BX 10/12/2016 - DANDC DIAG AND/OR THERAP, NOT OB - EGD - EGD W/O [facility] SPECIMEN W/BX 10/12/2016 - HEMORRHOIDECTOMY - MASTECTOMY HX Bilateral 1982 - PAST SURGICAL HISTORY OF Bronchial artery embolization, left lung - PAST SURGICAL HISTORY OF 2002 Lymph node removal on left arm - SLING OPER STRES INCONTINENCE - TOT ABDOMINL HYSTERECTOMY 1984 FAMILY HISTORY Problem Relation Age of Onset - Alzheimer's Disease Mother in her 80s. - Aneurysm Father AAA at age 61. - other (Chronic bronchitis.) Father - other (Other) Brother Parkinson's vs [place]'s. age 61. Social History Marital status: Spouse name: Years of education: Number of children: Social History Main Topics Smoking status: Former Smoker Packs/day: 1.00 Years: 30.00 Types: Cigarettes Quit date: 02/22/1999 Smokeless tobacco: Never Used Comment: Father smoked in childhood home. Alcohol use: Yes 6.0 oz/week Glasses of Wine (5oz): 4 per week Comment: With dinner. Drug use: No Reviewed current medications, allergies, past medical history, surgical history, family history and social history today. REVIEW OF SYSTEMS All other reviewed and negative other than HPI. VITALS: BP 136/72 Pulse 77 Temp 37 ?C (98.6 ?F) (Tympanic) SpO2 98% Last 4 Encounter Wt Readings: Date: Wt: 02/07/2018 49.9 kg (110 lb) 12/23/2017 49.9 kg (110 lb) 09/16/2017 47.6 kg (105 lb) 09/07/2017 48.1 kg (106 lb) PHYSICAL EXAMINATION: General appearance: Well appearing, alert, in no acute distress, well-hydrated, well nourished. Skin: Skin color, texture, turgor normal, no suspicious rashes or lesions Head: Normocephalic, no masses, lesions, tenderness or abnormalities Eyes: Anicteric sclera. Pupils are equally round and reactive to light. Extraocular movements are intact. Ears: External ears normal, canals clear Nose/Sinuses: Nares normal, septum midline, mucosa normal, no drainage or sinus tenderness Oropharynx: Lips, mucosa, and tongue normal, teeth and gums normal, oropharynx normal and purulent drainage in posterior pharynx Neck: Negative findings: no adenopath Lungs: lungs clear to auscultation. No wheezing, rhonchi, rales Heart: RRR without murmur, gallop, or rubs. No ectopy Abdomen: Normal abdominal exam, Abdomen soft, non-tender. Bowel sounds normal. No masses, organomegaly Extremities: No deformities, edema, skin discoloration, clubbing or cyanosis. Good capillary refill. ASSESSMENT/PLAN: 1. Cough - ICD9: 786.2, ICD10: R05 (primary diagnosis) - check labs and Call if symptoms worsen at all or if not better in one to two weeks - XR CHEST 2V FRONTAL/LAT - CBC + DIFF - BASIC METABOLIC PNL - see med orders. - Call if symptoms worsen at all or if not better in one to two weeks 2. Bacterial sinusitis - ICD9: 473.9, 041.9, ICD10: J32.9, B96.89 3. Meningioma (HCC) - ICD9: 225.2, ICD10: D32.9 Follow with neursurgery 4. Vertigo - ICD9: 780.4, ICD10: R42 - per ent and neurosurgery 5. CLL (chronic lymphocytic leukemia) (HCC) - ICD9: 204.10, ICD10: C91.90 - check labs. - CBC + DIFF - BASIC METABOLIC PNL 6. Non-Hodgkin's lymphoma, unspecified body region, unspecified non-Hodgkin lymphoma type (HCC) - ICD9: 202.80, ICD10: C85.90 Check labs - CBC + DIFF - BASIC METABOLIC PNL 7. Chronic obstructive pulmonary disease, unspecified COPD type (HCC) - ICD9: 496, ICD10: J44.9 - CBC + DIFF - BASIC METABOLIC PNL 8. Bronchitis - ICD9: 490, ICD10: J40 - PROMETHAZINE-DM 6.25 MG-15 MG/5 ML ORAL SYRUP Jey Tse MD Referring Provider: SELF [[id number]] Allergies As of Date: 03/18/2018 Noted Allergy Reaction AUGMENTIN (AMOXICILLIN-POT CLAVUL*12/23/2017 11 - Vomiting CODEINE 03/03/2016 8 - GI Upset 11 - Vomiting SHELLFISH CONTAINING PRODUCTS 03/03/2016 7 - Swelling 10 - Anaphylaxis 12 - Shortness of Breath BACITRACIN 03/03/2016 9 - Itching LATEX 03/03/2016 2 - Rash Date Reviewed: 03/18/2018 Reviewed by: Tuyet Holm LPN - Fully Assessed Reason for Visit: URI [115] Primary Visit Diagnosis:Cough [R05] Other Visit Diagnoses:Bacterial sinusitis [J32.9, B96.89] Meningioma (HCC) [D32.9] Vertigo [R42] CLL (chronic lymphocytic leukemia) (HCC) [C91.90] Non-Hodgkin's lymphoma, unspecified body region, unspecified non-Hodgkin lymphoma type (HCC) [C85.90] Chronic obstructive pulmonary disease, unspecified COPD type (HCC) [J44.9] Acute otitis media, left [H66.92] Bronchitis [J40] Order(s):XR CHEST 2V FRONTAL/LAT [3992821] Order #: [id number] FUTURE CBC + DIFF [SQCBCDIF] Order #: [id number] FUTURE BASIC METABOLIC PNL [SQBMP] Order #: [id number] FUTURE predniSONE (DELTASONE) 20 mg tabletTake 1 tablet by mouth once daily for 5 days. Take daily with food.Disp: 5 tabletRfl: 0 cefUROXime (CEFTIN) 250 mg tabletTake 1 tablet by mouth twice daily for 10 days.Disp: 20 tabletRfl: 0 Promethazine-DM (PHENERGAN-DM) 6.25-15 mg/5 mL syrupTake 5 mL by mouth four times daily as needed.Disp: 120 mLRfl: 0 Prescriptions as of 03/18/2018 Sig: PROMETHAZINE-DM 6.25 MG-15 MG* Take 5 mL by mouth four times* BUDESONIDE-FORMOTEROL HFA 160* Inhale 2 Puffs as instructed * TIOTROPIUM BROMIDE 18 MCG CAP* INHALE THE CONTENTS OF ONE CA* VENTOLIN HFA 90 MCG/ACTUATION* INHALE TWO PUFFS BY MOUTH 4 T* FLUTICASONE 50 MCG/ACTUATION * Use 1 [place] in each nostril o* ALENDRONATE 70 MG TABLET Take 1 tablet by mouth once e* CHOLECALCIFEROL (VITAMIN D3) * Take 1 capsule by mouth once * CALCIUM ORAL Take 1 tablet by mouth once d* MAGNESIUM ORAL Take 1 tablet by mouth once d* PREDNISONE 20 MG TABLET Take 1 tablet by mouth once d* CEFUROXIME AXETIL 250 MG TABL* Take 1 tablet by mouth twice * DOXYCYCLINE MONOHYDRATE 100 M* Take 1 capsule by mouth twice* Problem List As Of Date 03/18/2018 Noted Resolved CLL (chronic lymphocytic leukemia) (HCC) [C91.9*INVALID FOR* Epigastric pain [R10.13] INVALID FOR* Emphysema of lung (HCC) [J43.9] INVALID FOR* Breast cancer (HCC) [C50.919] More... Mitral valve regurgitation [I34.0] More... Osteoporosis [M81.0] Non Hodgkin's lymphoma (HCC) [C85.90] More... COPD (chronic obstructive pulmonary disease) (H* Mixed hyperlipidemia [E78.2] INVALID FOR* History of breast cancer in female [Z85.3] INVALID FOR* Meningioma (HCC) [D32.9] INVALID FOR* More... Visit Notes: >> Tuyet Holm LPN WedMar 18, 2018 10:06 AM Status: Signed Patient presents today complaining of increased cough. Duration: 3-4 days ago. Cough is productive:yes states that is milky white. Fever: :No. Shortness of breath:YES. Sore throat :scratchy. Ear Pain :left ear. See note below saw ENT. Chest Pain :YES. Previous treatments tried: mucinex and just used last of phenergan DM prescribed which helps some. Saw ENT for ear trouble and then had MRI is waiting for call from [facility] main neurosurgeon to see ENT there. MRI printed for physician review. Prescriptions ordered this encounter Disp Refills Start End PREDNISONE 20 MG TABLET 5 ta* 0 03/18/2018 03/23/2018 Route: ORAL Sig: Take 1 tablet by mouth once daily for 5 days. Take daily with food. CEFUROXIME AXETIL 250 MG TABLET 20 t* 0 03/18/2018 03/28/2018 Cmt: augmentin is not an allergy just an intolerance Route: ORAL Sig: Take 1 tablet by mouth twice daily for 10 days. PROMETHAZINE-DM 6.25 MG-15 MG/5 ML O* 120 * 0 03/18/2018 Route: ORAL Sig: Take 5 mL by mouth four times daily as needed. Medications Discontinued During This Encounter Promethazine-DM (PHENERGAN-DM) 6.25-* 120 * 0 02/17/2018 03/18/2018 Route: ORAL Sig: Take 5 mL by mouth four times daily as needed. Disc: Reason for discontinue is not on file. Disposition: Return if symptoms worsen or fail to improve. Follow-up and Disposition History Recorded Encounter Status:Closed by JEY TSE MD on 03/19/18 CREATININE FINGERSTICK Collected: 03/15/2018 Status: F Source: [place] 7:38 AM [facility] [place] REPOSITORY TYPE CODE TESTS RESULT OUT OF RANGE REFERENCE UNITS LAB L9100.0210 0.55-1.02 mg/dL Normal CREATININE WB 0.8 LAB L9100.0220 >60 mL/min EGFR WB Normal > 60.0000 Performed By: #### L9100.0200 #### [facility] Point of Care [address] [place] [address] BRAIN W/WO CONTRAST Observed: 03/15/2018 Status: F Source: [place] 6:58 AM [facility] REPOSITORY [facility] Imaging Services [address] [place] [address] Brain W/WO Contrast MR#: [id number] Acct: [id number] Name: MADISON PENALOZA Rep #: [id number] : 1940 F 77 From: Jose Alvarez PCP: Jey Tse MD Status: REG CLI Study: Brain W/WO Contrast Date of Exam: 03/15/18 Exam# [id number] Ordering Dr: Dennis Mendosa MD STUDY: MRI BRAIN WITH AND WITHOUT CONTRAST (ATTENTION INTERNAL AUDITORY CANALS - I.A.C.'s) REASON FOR EXAM: Female, 77 years old. dizziness, LEFT ear tinnitus, x several months. TECHNIQUE: Standardized multiplanar fat and water weighted pulse sequences were obtained. 5 ml of Gadavist contrast material was administered intravenously for the contrast portion of the examination. COMPARISON: CT of the head dated September 02 FINDINGS: Normal bilateral temporal bones. Normal bilateral internal auditory canals. There is no demonstrated intracanalicular or cisternal vestibular schwannoma (acoustic neuroma). Normal bilateral cochlea, vestibules and semicircular canals. There is approximately 0.5 x 2.0 cm enhancing mass at the right prepontine region in close proximity of the cisternal 5th cranial nerve. There is mild cerebral atrophy with widening of the extra- axial spaces and ventricular dilatation. There are multiple white matter hyperintensities, distributed throughout the deep white matter tracts of the cerebral hemispheres, consistent with mild chronic white matter ischemic changes. Normal bilateral basal ganglia. Normal thalami. Normal flow voids within the major intracranial circulation suggesting patency by spin echo criteria. Normal venous enhancement. There is no enhancing intra-axial or extra-axial abnormality. There is no extra-axial fluid accumulation. Normal sella turcica, pituitary gland, infundibular stalk, optic chiasm and hypothalamus. Normal tectal plate and pineal gland. Normal midbrain, emily and medulla. Normal cerebellum. Normal basal cisterns. No demonstrated orbital abnormality, within the constraints of a routine brain study. There is mucoperiosteal inflammatory disease of the paranasal sinuses consistent with mild chronic sinusitis. MRI/Brain W/WO Contrast IMPRESSION: Normal bilateral internal auditory canals (I.A.C's). 2 cm right prepontine enhancing lesion, most compatible with meningioma. Electronically Signed: Jose Alvarez MD at 16:00 EST Tel , Service support , CC: Dennis Mendosa MD; Jey Tse MD School Social Worker: Signed PROGRESS Observed: 02/14/2018 Status: COMPLETED Source: [place] 11:30 AM [facility] [place] REPOSITORY O ID: [id number] Author: Jey Tse Service: (none) Author Type: Physician Type: Progress Notes Filed: 02/14/2018 11:37 AM Note Text: Patient presents with: Cough HPI: Patient presents today for office visit for follow up. Seen last week for uri. Has gotten worse. Now with layirngitis. Using her inhalers. Feeling more wheezy. Cough is productive of thick white sputum. No fever or chills No nausea or vomiting. No sinus pressure. Some left ear pain. MEDICATIONS: Current Outpatient Prescriptions: alendronate (FOSAMAX) 70 mg tablet Take 1 tablet by mouth once each week. Take with a full glass of water, on an empty stomach; do NOT lie down for 30minutes. budesonide-formoterol (SYMBICORT) 160-4.5 mcg/actuation inhaler Inhale 2 Puffs as instructed twice daily. CALCIUM ORAL Take 1 tablet by mouth once daily. Cholecalciferol, Vitamin D3, (VITAMIN D-3) 2,000 unit cap Take 1 capsule by mouth once daily. fluticasone (FLONASE) 50 mcg/actuation nasal spray Use 1 [facility] in each nostril once daily. MAGNESIUM ORAL Take 1 tablet by mouth once daily. tiotropium (SPIRIVA WITH HANDIHALER) 18 mcg inhalation capsule INHALE THE CONTENTS OF ONE CAPSULE ONCE DAILY VENTOLIN HFA 90 mcg/actuation inhaler INHALE TWO PUFFS BY MOUTH 4 TIMES DAILY NEEDED FOR WHEEZING OR SHORTNESS OF BREATH No current facility-administered medications for this visit. ALLERGIES: ALLERGIES Allergen Reactions - Augmentin [Amoxicil* Vomiting - Codeine GI Upset, Vomiting - Shellfish Containin* Swelling, Anaphylaxis, Shortness of Breath - Bacitracin Itching - Latex Rash PAST MEDICAL HISTORY Diagnosis Date - Breast cancer (HCC) Left mastectomy. Right mastectomy. Bilateral reconstructions. No chemo/XRT. - Cervical cancer (HCC) Remote. SOHEILA/BSO. No chemo or XRT. - COPD (chronic obstructive pulmonary disease) (HCC) - Mitral valve regurgitation - Non Hodgkin's lymphoma (HCC) About 14 years ago. No XRT, chemotherapy. Watchful waiting. - Osteoporosis PAST SURGICAL HISTORY Procedure Laterality Date - BREAST RECONSTRUCTION - CATARACT EXTRACTION HX Bilateral 2011 - CATARACT SURGERY, COMPLEX - COLONOSCOPY W/BX 10/12/2016 - [facility] DIAG AND/OR THERAP, NOT OB - EGD - EGD W/O [facility] SPECIMEN W/BX 10/12/2016 - HEMORRHOIDECTOMY - MASTECTOMY HX Bilateral 1982 - PAST SURGICAL HISTORY OF Bronchial artery embolization, left lung - PAST SURGICAL HISTORY OF 2002 Lymph node removal on left arm - SLING OPER STRES INCONTINENCE - TOT ABDOMINL HYSTERECTOMY 1984 FAMILY HISTORY Problem Relation Age of Onset - Alzheimer's Disease Mother in her 80s. - Aneurysm Father AAA at age 61. - other (Chronic bronchitis.) Father - other (Other) Brother Parkinson's vs [place]'s. age 61. Social History Marital status: Spouse name: Years of education: Number of children: Social History Main Topics Smoking status: Former Smoker Packs/day: 1.00 Years: 30.00 Types: Cigarettes Quit date: 02/22/1999 Smokeless tobacco: Never Used Comment: Father smoked in childhood home. Alcohol use: Yes 6.0 oz/week Glasses of Wine (5oz): 4 per week Comment: With dinner. Drug use: No Reviewed current medications, allergies, past medical history, surgical history, family history and social history today. REVIEW OF SYSTEMS All other reviewed and negative other than HPI. HEALTH MAINTENANCE: Reviewed health maintenance issues today and recommended the following in detail. VITALS: BP 124/72 Pulse 90 Temp 36.8 ?C (98.2 ?F) (Tympanic) SpO2 96% Last 4 Encounter Wt Readings: Date: Wt: 02/07/2018 49.9 kg (110 lb) 12/23/2017 49.9 kg (110 lb) 09/16/2017 47.6 kg (105 lb) 09/07/2017 48.1 kg (106 lb) PHYSICAL EXAMINATION: General appearance: Well appearing, alert, in no acute distress, well-hydrated, well nourished. Skin: Skin color, texture, turgor normal, no suspicious rashes or lesions Head: Normocephalic, no masses, lesions, tenderness or abnormalities Ears: left tm is full and red. Nose/Sinuses: Nares normal, septum midline, mucosa normal, no drainage or sinus tenderness Oropharynx: Lips, mucosa, and tongue normal, teeth and gums normal, oropharynx normal Neck: Negative findings: no adenopathy Lungs: lungs clear to auscultation. No wheezing, rhonchi, rales Heart: RRR without murmur, gallop, or rubs. No ectopy Abdomen: Normal abdominal exam, Abdomen soft, non-tender. Bowel sounds normal. No masses, organomegaly Extremities: No deformities, edema, skin discoloration, clubbing or cyanosis. Good capillary refill. ASSESSMENT/PLAN: 1. Acute otitis media, left - ICD9: 382.9, ICD10: H66.92 (primary diagnosis) - Follow up in one week if symptoms persist or worsen. - DOXYCYCLINE MONOHYDRATE 100 MG CAPSULE - PROMETHAZINE-DM 6.25 MG-15 MG/5 ML SYRUP 2. Bronchitis - ICD9: 490, ICD10: J40 - Discussed risks and benefits of new medication with the patient. Advised them to call if any side effects or questions. - Red flags for re-assessment reviewed with patient in detail. - Call if symptoms worsen at all or if not better in one to two weeks - DOXYCYCLINE MONOHYDRATE 100 MG CAPSULE - PROMETHAZINE-DM 6.25 MG-15 MG/5 ML SYRUP - PREDNISONE 20 MG TABLET 3. Chronic obstructive pulmonary disease, unspecified COPD type (HCC) - ICD9: 496, ICD10: J44.9 - PREDNISONE 20 MG TABLET Jey Tse MD CNOV Observed: 02/14/2018 Status: COMPLETED Source: [place] 11:[address] [facility] REPOSITORY [facility] MADISON PENALOZA ([id number]) 1940 F Date Time Provider Department 02/14/18 11:20 AM [facility]SE [facility] During your visit today, we recorded the following information about you: Temperature Pulse Blood pressure 98.2 degrees 90/minute 124/72 Jey Tse MD 02/14/2018 11:37 AM Signed Patient presents with: Cough HPI: Patient presents today for office visit for follow up. Seen last week for uri. Has gotten worse. Now with layirngitis. Using her inhalers. Feeling more wheezy. Cough is productive of thick white sputum. No fever or chills No nausea or vomiting. No sinus pressure. Some left ear pain. MEDICATIONS: Current Outpatient Prescriptions: alendronate (FOSAMAX) 70 mg tablet Take 1 tablet by mouth once each week. Take with a full glass of water, on an empty stomach; do NOT lie down for 30minutes. budesonide-formoterol (SYMBICORT) 160-4.5 mcg/actuation inhaler Inhale 2 Puffs as instructed twice daily. CALCIUM ORAL Take 1 tablet by mouth once daily. Cholecalciferol, Vitamin D3, (VITAMIN D-3) 2,000 unit cap Take 1 capsule by mouth once daily. fluticasone (FLONASE) 50 mcg/actuation nasal spray Use 1 [facility] in each nostril once daily. MAGNESIUM ORAL Take 1 tablet by mouth once daily. tiotropium (SPIRIVA WITH HANDIHALER) 18 mcg inhalation capsule INHALE THE CONTENTS OF ONE CAPSULE ONCE DAILY VENTOLIN HFA 90 mcg/actuation inhaler INHALE TWO PUFFS BY MOUTH 4 TIMES DAILY NEEDED FOR WHEEZING OR SHORTNESS OF BREATH No current facility-administered medications for this visit. ALLERGIES: ALLERGIES Allergen Reactions - Augmentin [Amoxicil* Vomiting - Codeine GI Upset, Vomiting - Shellfish Containin* Swelling, Anaphylaxis, Shortness of Breath - Bacitracin Itching - Latex Rash PAST MEDICAL HISTORY Diagnosis Date - Breast cancer (HCC) Left mastectomy. Right mastectomy. Bilateral reconstructions. No chemo/XRT. - Cervical cancer (HCC) Remote. SOHEILA/BSO. No chemo or XRT. - COPD (chronic obstructive pulmonary disease) (HCC) - Mitral valve regurgitation - Non Hodgkin's lymphoma (HCC) About 14 years ago. No XRT, chemotherapy. Watchful waiting. - Osteoporosis PAST SURGICAL HISTORY Procedure Laterality Date - BREAST RECONSTRUCTION - CATARACT EXTRACTION HX Bilateral 2011 - CATARACT SURGERY, COMPLEX - COLONOSCOPY W/BX 10/12/2016 - [facility] DIAG AND/OR THERAP, NOT OB - EGD - EGD W/O [facility] SPECIMEN W/BX 10/12/2016 - HEMORRHOIDECTOMY - MASTECTOMY HX Bilateral 1982 - PAST SURGICAL HISTORY OF Bronchial artery embolization, left lung - PAST SURGICAL HISTORY OF 2002 Lymph node removal on left arm - SLING OPER STRES INCONTINENCE - TOT ABDOMINL HYSTERECTOMY 1984 FAMILY HISTORY Problem Relation Age of Onset - Alzheimer's Disease Mother in her 80s. - Aneurysm Father AAA at age 61. - other (Chronic bronchitis.) Father - other (Other) Brother Parkinson's vs [place]'s. age 61. Social History Marital status: Spouse name: Years of education: Number of children: Social History Main Topics Smoking status: Former Smoker Packs/day: 1.00 Years: 30.00 Types: Cigarettes Quit date: 02/22/1999 Smokeless tobacco: Never Used Comment: Father smoked in childhood home. Alcohol use: Yes 6.0 oz/week Glasses of Wine (5oz): 4 per week Comment: With dinner. Drug use: No Reviewed current medications, allergies, past medical history, surgical history, family history and social history today. REVIEW OF SYSTEMS All other reviewed and negative other than HPI. HEALTH MAINTENANCE: Reviewed health maintenance issues today and recommended the following in detail. VITALS: BP 124/72 Pulse 90 Temp 36.8 ?C (98.2 ?F) (Tympanic) SpO2 96% Last 4 Encounter Wt Readings: Date: Wt: 02/07/2018 49.9 kg (110 lb) 12/23/2017 49.9 kg (110 lb) 09/16/2017 47.6 kg (105 lb) 09/07/2017 48.1 kg (106 lb) PHYSICAL EXAMINATION: General appearance: Well appearing, alert, in no acute distress, well-hydrated, well nourished. Skin: Skin color, texture, turgor normal, no suspicious rashes or lesions Head: Normocephalic, no masses, lesions, tenderness or abnormalities Ears: left tm is full and red. Nose/Sinuses: Nares normal, septum midline, mucosa normal, no drainage or sinus tenderness Oropharynx: Lips, mucosa, and tongue normal, teeth and gums normal, oropharynx normal Neck: Negative findings: no adenopathy Lungs: lungs clear to auscultation. No wheezing, rhonchi, rales Heart: RRR without murmur, gallop, or rubs. No ectopy Abdomen: Normal abdominal exam, Abdomen soft, non-tender. Bowel sounds normal. No masses, organomegaly Extremities: No deformities, edema, skin discoloration, clubbing or cyanosis. Good capillary refill. ASSESSMENT/PLAN: 1. Acute otitis media, left - ICD9: 382.9, ICD10: H66.92 (primary diagnosis) - Follow up in one week if symptoms persist or worsen. - DOXYCYCLINE MONOHYDRATE 100 MG CAPSULE - PROMETHAZINE-DM 6.25 MG-15 MG/5 ML SYRUP 2. Bronchitis - ICD9: 490, ICD10: J40 - Discussed risks and benefits of new medication with the patient. Advised them to call if any side effects or questions. - Red flags for re-assessment reviewed with patient in detail. - Call if symptoms worsen at all or if not better in one to two weeks - DOXYCYCLINE MONOHYDRATE 100 MG CAPSULE - PROMETHAZINE-DM 6.25 MG-15 MG/5 ML SYRUP - PREDNISONE 20 MG TABLET 3. Chronic obstructive pulmonary disease, unspecified COPD type (HCC) - ICD9: 496, ICD10: J44.9 - PREDNISONE 20 MG TABLET Jey Tse MD Referring Provider: SELF [[id number]] Allergies As of Date: 02/14/2018 Noted Allergy Reaction AUGMENTIN (AMOXICILLIN-POT CLAVUL*12/23/2017 11 - Vomiting CODEINE 03/03/2016 8 - GI Upset 11 - Vomiting SHELLFISH CONTAINING PRODUCTS 03/03/2016 7 - Swelling 10 - Anaphylaxis 12 - Shortness of Breath BACITRACIN 03/03/2016 9 - Itching LATEX 03/03/2016 2 - Rash Date Reviewed: 02/14/2018 Reviewed by: Tuyet Holm LPN - Fully Assessed Reason for Visit: Cough [28] Primary Visit Diagnosis:Acute otitis media, left [H66.92] Other Visit Diagnoses:Bronchitis [J40] Chronic obstructive pulmonary disease, unspecified COPD type ([facility]) [J44.9] Order(s):doxycycline monohydrate (MONODOX) 100 mg capsuleTake 1 capsule by mouth twice daily.Disp: 20 capsuleRfl: 0 Promethazine-DM (PHENERGAN-DM) 6.25-15 mg/5 mL syrupTake 5 mL by mouth four times daily as needed.Disp: 120 mLRfl: 0 predniSONE (DELTASONE) 20 mg tabletTake 1 tablet by mouth once daily for 5 days. Take daily with food.Disp: 5 tabletRfl: 0 Prescriptions as of 02/14/2018 Sig: ALENDRONATE 70 MG TABLET Take 1 tablet by mouth once e* BUDESONIDE-FORMOTEROL HFA 160* Inhale 2 Puffs as instructed * CALCIUM ORAL Take 1 tablet by mouth once d* CHOLECALCIFEROL (VITAMIN D3) * Take 1 capsule by mouth once * DOXYCYCLINE MONOHYDRATE 100 M* Take 1 capsule by mouth twice* FLUTICASONE 50 MCG/ACTUATION * Use 1 [facility] in each nostril o* MAGNESIUM ORAL Take 1 tablet by mouth once d* PREDNISONE 20 MG TABLET Take 1 tablet by mouth once d* PROMETHAZINE-DM 6.25 MG-15 MG* Take 5 mL by mouth four times* TIOTROPIUM BROMIDE 18 MCG CAP* INHALE THE CONTENTS OF ONE CA* VENTOLIN HFA 90 MCG/ACTUATION* INHALE TWO PUFFS BY MOUTH 4 T* Problem List As Of Date 02/14/2018 Noted Resolved CLL (chronic lymphocytic leukemia) ([facility]) [C91.9*INVALID FOR* Epigastric pain [R10.13] INVALID FOR* Emphysema of lung ([facility]) [J43.9] INVALID FOR* Breast cancer ([facility]) [C50.919] More... Mitral valve regurgitation [I34.0] More... Osteoporosis [M81.0] Non Hodgkin's lymphoma (HCC) [C85.90] More... COPD (chronic obstructive pulmonary disease) (H* Mixed hyperlipidemia [E78.2] INVALID FOR* History of breast cancer in female [Z85.3] INVALID FOR* Prescriptions ordered this encounter Disp Refills Start End DOXYCYCLINE MONOHYDRATE 100 MG CAPSU* 20 c* 0 02/14/2018 Route: ORAL Sig: Take 1 capsule by mouth twice daily. PROMETHAZINE-DM 6.25 MG-15 MG/5 ML S* 120 * 0 02/14/2018 Route: ORAL Sig: Take 5 mL by mouth four times daily as needed. PREDNISONE 20 MG TABLET 5 ta* 0 02/14/2018 02/19/2018 Route: ORAL Sig: Take 1 tablet by mouth once daily for 5 days. Take daily with food. Encounter Status:Closed by JEY TSE MD on 02/14/18 PROGRESS Observed: 02/07/2018 Status: COMPLETED Source: [place] 8:[address] [facility] REPOSITORY O ID: [id number] Author: Jey Tse Service: (none) Author Type: Physician Type: Progress Notes Filed: 02/07/2018 8:32 AM Note Text: No chief complaint on file. HPI: Patient presents today for office visit for acute visit. Nursing Notes: An Leach Ma 02/07/2018 8:10 AM Unsigned DURATION OF SYMPTOMS: Began 3 days ago ONSET OF SYMPTOMS: Gradual FEVER: No BODYACHES: Mild TIREDNESS: Mild HEADACHE: No EAR SYMPTOMS: Pressure in left ear STUFFY NOSE: Yes POST NASAL DRIP: No SNEEZING: No SORE THROAT: Yes - mild COUGH: Yes, with sputum production CHEST DISCOMFORT: Yes - described as heavy, tight SHORTNESS OF BREATH: Yes - at rest WHEEZING: Yes - patient has positive history of asthma SPUTUM PRODUCTION: Yellow OVER THE COUNTER MEDICATION PATIENT IS TAKING: No, using Tessalon Pearls ALLERGIES VERIFIED WITH PATIENT: Yes DOCUMENTED ALLERGIES: Augmentin [Amoxicillin-Pot Clavulanate]; Codeine; Shellfish Containing Products; Bacitracin; Latex Asthma is stable. Using her inhalers. Coughing is keeping her up at night. No gi.issues. MEDICATIONS: Current Outpatient Prescriptions: alendronate (FOSAMAX) 70 mg tablet Take 1 tablet by mouth once each week. Take with a full glass of water, on an empty stomach; do NOT lie down for 30minutes. budesonide-formoterol (SYMBICORT) 160-4.5 mcg/actuation inhaler Inhale 2 Puffs as instructed twice daily. CALCIUM ORAL Take 1 tablet by mouth once daily. Cholecalciferol, Vitamin D3, (VITAMIN D-3) 2,000 unit cap Take 1 capsule by mouth once daily. fluticasone (FLONASE) 50 mcg/actuation nasal spray Use 1 [place] in each nostril once daily. MAGNESIUM ORAL Take 1 tablet by mouth once daily. tiotropium (SPIRIVA WITH HANDIHALER) 18 mcg inhalation capsule INHALE THE CONTENTS OF ONE CAPSULE ONCE DAILY VENTOLIN HFA 90 mcg/actuation inhaler INHALE TWO PUFFS BY MOUTH 4 TIMES DAILY NEEDED FOR WHEEZING OR SHORTNESS OF BREATH No current facility-administered medications for this visit. ALLERGIES: ALLERGIES Allergen Reactions - Augmentin [Amoxicil* Vomiting - Codeine GI Upset, Vomiting - Shellfish Containin* Swelling, Anaphylaxis, Shortness of Breath - Bacitracin Itching - Latex Rash PAST MEDICAL HISTORY Diagnosis Date - Breast cancer (HCC) Left mastectomy. Right mastectomy. Bilateral reconstructions. No chemo/XRT. - Cervical cancer (HCC) Remote. SOHEILA/BSO. No chemo or XRT. - COPD (chronic obstructive pulmonary disease) (HCC) - Mitral valve regurgitation - Non Hodgkin's lymphoma (HCC) About 14 years ago. No XRT, chemotherapy. Watchful waiting. - Osteoporosis PAST SURGICAL HISTORY Procedure Laterality Date - BREAST RECONSTRUCTION - CATARACT EXTRACTION HX Bilateral 2011 - CATARACT SURGERY, COMPLEX - COLONOSCOPY W/BX 10/12/2016 - [facility] DIAG AND/OR THERAP, NOT OB - EGD - EGD W/O [facility] SPECIMEN W/BX 10/12/2016 - HEMORRHOIDECTOMY - MASTECTOMY HX Bilateral 1982 - PAST SURGICAL HISTORY OF Bronchial artery embolization, left lung - PAST SURGICAL HISTORY OF 2002 Lymph node removal on left arm - SLING OPER STRES INCONTINENCE - TOT ABDOMINL HYSTERECTOMY 1984 FAMILY HISTORY Problem Relation Age of Onset - Alzheimer's Disease Mother in her 80s. - Aneurysm Father AAA at age 61. - other (Chronic bronchitis.) Father - other (Other) Brother Parkinson's vs [place]'s. age 61. Social History Marital status: Spouse name: Years of education: Number of children: Social History Main Topics Smoking status: Former Smoker Packs/day: 1.00 Years: 30.00 Types: Cigarettes Quit date: 02/22/1999 Smokeless tobacco: Never Used Comment: Father smoked in childhood home. Alcohol use: Yes 6.0 oz/week Glasses of Wine (5oz): 4 per week Comment: With dinner. Drug use: No Reviewed current medications, allergies, past medical history, surgical history, family history and social history today. REVIEW OF SYSTEMS All other reviewed and negative other than HPI. HEALTH MAINTENANCE: Reviewed health maintenance issues today VITALS: BP 136/82 Pulse 72 Temp (!) 35.9 ?C (96.7 ?F) (Tympanic) Wt 49.9 kg (110 lb) SpO2 98% BMI 21.48 kg/m? Last 4 Encounter Wt Readings: Date: Wt: 02/07/2018 49.9 kg (110 lb) 12/23/2017 49.9 kg (110 lb) 09/16/2017 47.6 kg (105 lb) 09/07/2017 48.1 kg (106 lb) PHYSICAL EXAMINATION: General appearance: Well appearing, alert, in no acute distress, well-hydrated, well nourished. Skin: Skin color, texture, turgor normal, no suspicious rashes or lesions Head: Normocephalic, no masses, lesions, tenderness or abnormalities Eyes: Anicteric sclera. Pupils are equally round and reactive to light. Extraocular movements are intact. Ears: External ears normal, canals clear Nose/Sinuses: Nares normal, septum midline, mucosa normal, no drainage or sinus tenderness Oropharynx: Lips, mucosa, and tongue normal, teeth and gums normal, oropharynx normal Neck:no lymphaenopathy Lungs: lungs clear to auscultation. No wheezing, rhonchi, rales Heart: RRR without murmur, gallop, or rubs. No ectopy Abdomen: Normal abdominal exam, Abdomen soft, non-tender. Bowel sounds normal. No masses, organomegaly Extremities: No deformities, edema, skin discoloration, clubbing or cyanosis. Good capillary refill. ASSESSMENT/PLAN: 1. URI, acute - ICD9: 465.9, ICD10: J06.9 - Discussed viral etiology and rationale for treatment. - Symptomatic treatment with prn analgesia - Supportive care with fluids and rest - Follow up in one week if symptoms persist or sooner if worsening of symptoms Jey Tse MD CNOV Observed: 02/07/2018 Status: COMPLETED Source: [place] 8:[address] [facility] REPOSITORY Office Visit (FAMPWS) [place] ([id number]) 1940 F Date Time Provider Department 02/07/18 8:00 AM [facility] During your visit today, we recorded the following information about you: Temperature Pulse Blood pressure Weight 96.7 degrees 72/minute 136/82 49.9 kg An Leach Ma 02/07/2018 8:18 AM Signed DURATION OF SYMPTOMS: Began 3 days ago ONSET OF SYMPTOMS: Gradual FEVER: No BODYACHES: Mild TIREDNESS: Mild HEADACHE: No EAR SYMPTOMS: Pressure in left ear STUFFY NOSE: Yes POST NASAL DRIP: No SNEEZING: No SORE THROAT: Yes - mild COUGH: Yes, with sputum production CHEST DISCOMFORT: Yes - described as heavy, tight SHORTNESS OF BREATH: Yes - at rest WHEEZING: Yes - patient has positive history of asthma SPUTUM PRODUCTION: Yellow OVER THE COUNTER MEDICATION PATIENT IS TAKING: No, using Tessalon Pearls ALLERGIES VERIFIED WITH PATIENT: Yes DOCUMENTED ALLERGIES: Augmentin [Amoxicillin-Pot Clavulanate]; Codeine; Shellfish Containing Products; Bacitracin; Latex Jey Tse MD 02/07/2018 8:32 AM Signed No chief complaint on file. HPI: Patient presents today for office visit for acute visit. Nursing Notes: An Leach Ma 02/07/2018 8:10 AM Unsigned DURATION OF SYMPTOMS: Began 3 days ago ONSET OF SYMPTOMS: Gradual FEVER: No BODYACHES: Mild TIREDNESS: Mild HEADACHE: No EAR SYMPTOMS: Pressure in left ear STUFFY NOSE: Yes POST NASAL DRIP: No SNEEZING: No SORE THROAT: Yes - mild COUGH: Yes, with sputum production CHEST DISCOMFORT: Yes - described as heavy, tight SHORTNESS OF BREATH: Yes - at rest WHEEZING: Yes - patient has positive history of asthma SPUTUM PRODUCTION: Yellow OVER THE COUNTER MEDICATION PATIENT IS TAKING: No, using Tessalon Pearls ALLERGIES VERIFIED WITH PATIENT: Yes DOCUMENTED ALLERGIES: Augmentin [Amoxicillin-Pot Clavulanate]; Codeine; Shellfish Containing Products; Bacitracin; Latex Asthma is stable. Using her inhalers. Coughing is keeping her up at night. No gi.issues. MEDICATIONS: Current Outpatient Prescriptions: alendronate (FOSAMAX) 70 mg tablet Take 1 tablet by mouth once each week. Take with a full glass of water, on an empty stomach; do NOT lie down for 30minutes. budesonide-formoterol (SYMBICORT) 160-4.5 mcg/actuation inhaler Inhale 2 Puffs as instructed twice daily. CALCIUM ORAL Take 1 tablet by mouth once daily. Cholecalciferol, Vitamin D3, (VITAMIN D-3) 2,000 unit cap Take 1 capsule by mouth once daily. fluticasone (FLONASE) 50 mcg/actuation nasal spray Use 1 Providence in each nostril once daily. MAGNESIUM ORAL Take 1 tablet by mouth once daily. tiotropium (SPIRIVA WITH HANDIHALER) 18 mcg inhalation capsule INHALE THE CONTENTS OF ONE CAPSULE ONCE DAILY VENTOLIN HFA 90 mcg/actuation inhaler INHALE TWO PUFFS BY MOUTH 4 TIMES DAILY NEEDED FOR WHEEZING OR SHORTNESS OF BREATH No current facility-administered medications for this visit. ALLERGIES: ALLERGIES Allergen Reactions - Augmentin [Amoxicil* Vomiting - Codeine GI Upset, Vomiting - Shellfish Containin* Swelling, Anaphylaxis, Shortness of Breath - Bacitracin Itching - Latex Rash PAST MEDICAL HISTORY Diagnosis Date - Breast cancer (HCC) Left mastectomy. Right mastectomy. Bilateral reconstructions. No chemo/XRT. - Cervical cancer (HCC) Remote. SOHEILA/BSO. No chemo or XRT. - COPD (chronic obstructive pulmonary disease) (HCC) - Mitral valve regurgitation - Non Hodgkin's lymphoma (HCC) About 14 years ago. No XRT, chemotherapy. Watchful waiting. - Osteoporosis PAST SURGICAL HISTORY Procedure Laterality Date - BREAST RECONSTRUCTION - CATARACT EXTRACTION HX Bilateral 2011 - CATARACT SURGERY, COMPLEX - COLONOSCOPY W/BX 10/12/2016 - [facility] DIAG AND/OR THERAP, NOT OB - EGD - EGD W/O [facility] SPECIMEN W/BX 10/12/2016 - HEMORRHOIDECTOMY - MASTECTOMY HX Bilateral 1982 - PAST SURGICAL HISTORY OF Bronchial artery embolization, left lung - PAST SURGICAL HISTORY OF 2002 Lymph node removal on left arm - SLING OPER STRES INCONTINENCE - TOT ABDOMINL HYSTERECTOMY 1984 FAMILY HISTORY Problem Relation Age of Onset - Alzheimer's Disease Mother in her 80s. - Aneurysm Father AAA at age 61. - other (Chronic bronchitis.) Father - other (Other) Brother Parkinson's vs Donavon's. age 61. Social History Marital status: Spouse name: Years of education: Number of children: Social History Main Topics Smoking status: Former Smoker Packs/day: 1.00 Years: 30.00 Types: Cigarettes Quit date: 02/22/1999 Smokeless tobacco: Never Used Comment: Father smoked in childhood home. Alcohol use: Yes 6.0 oz/week Glasses of Wine (5oz): 4 per week Comment: With dinner. Drug use: No Reviewed current medications, allergies, past medical history, surgical history, family history and social history today. REVIEW OF SYSTEMS All other reviewed and negative other than HPI. HEALTH MAINTENANCE: Reviewed health maintenance issues today VITALS: BP 136/82 Pulse 72 Temp (!) 35.9 ?C (96.7 ?F) (Tympanic) Wt 49.9 kg (110 lb) SpO2 98% BMI 21.48 kg/m? Last 4 Encounter Wt Readings: Date: Wt: 02/07/2018 49.9 kg (110 lb) 12/23/2017 49.9 kg (110 lb) 09/16/2017 47.6 kg (105 lb) 09/07/2017 48.1 kg (106 lb) PHYSICAL EXAMINATION: General appearance: Well appearing, alert, in no acute distress, well-hydrated, well nourished. Skin: Skin color, texture, turgor normal, no suspicious rashes or lesions Head: Normocephalic, no masses, lesions, tenderness or abnormalities Eyes: Anicteric sclera. Pupils are equally round and reactive to light. Extraocular movements are intact. Ears: External ears normal, canals clear Nose/Sinuses: Nares normal, septum midline, mucosa normal, no drainage or sinus tenderness Oropharynx: Lips, mucosa, and tongue normal, teeth and gums normal, oropharynx normal Neck:no lymphaenopathy Lungs: lungs clear to auscultation. No wheezing, rhonchi, rales Heart: RRR without murmur, gallop, or rubs. No ectopy Abdomen: Normal abdominal exam, Abdomen soft, non-tender. Bowel sounds normal. No masses, organomegaly Extremities: No deformities, edema, skin discoloration, clubbing or cyanosis. Good capillary refill. ASSESSMENT/PLAN: 1. URI, acute - ICD9: 465.9, ICD10: J06.9 - Discussed viral etiology and rationale for treatment. - Symptomatic treatment with prn analgesia - Supportive care with fluids and rest - Follow up in one week if symptoms persist or sooner if worsening of symptoms Jey Tse MD Referring Provider: SELF [[id number]] Allergies As of Date: 02/07/2018 Noted Allergy Reaction AUGMENTIN (AMOXICILLIN-POT CLAVUL*12/23/2017 11 - Vomiting CODEINE 03/03/2016 8 - GI Upset 11 - Vomiting SHELLFISH CONTAINING PRODUCTS 03/03/2016 7 - Swelling 10 - Anaphylaxis 12 - Shortness of Breath BACITRACIN 03/03/2016 9 - Itching LATEX 03/03/2016 2 - Rash Date Reviewed: 02/07/2018 Reviewed by: An Leach Ma - Fully Assessed Primary Visit Diagnosis:URI, acute [J06.9] Prescriptions as of 02/07/2018 Sig: ALENDRONATE 70 MG TABLET Take 1 tablet by mouth once e* BUDESONIDE-FORMOTEROL HFA 160* Inhale 2 Puffs as instructed * CALCIUM ORAL Take 1 tablet by mouth once d* CHOLECALCIFEROL (VITAMIN D3) * Take 1 capsule by mouth once * FLUTICASONE 50 MCG/ACTUATION * Use 1 Providence in each nostril o* MAGNESIUM ORAL Take 1 tablet by mouth once d* TIOTROPIUM BROMIDE 18 MCG CAP* INHALE THE CONTENTS OF ONE CA* VENTOLIN HFA 90 MCG/ACTUATION* INHALE TWO PUFFS BY MOUTH 4 T* Problem List As Of Date 02/07/2018 Noted Resolved CLL (chronic lymphocytic leukemia) (HCC) [C91.9*INVALID FOR* Epigastric pain [R10.13] INVALID FOR* Emphysema of lung (HCC) [J43.9] INVALID FOR* Breast cancer (HCC) [C50.919] More... Mitral valve regurgitation [I34.0] More... Osteoporosis [M81.0] Non Hodgkin's lymphoma (HCC) [C85.90] More... COPD (chronic obstructive pulmonary disease) (H* Mixed hyperlipidemia [E78.2] INVALID FOR* History of breast cancer in female [Z85.3] INVALID FOR* Visit Notes: >> An Leach Ma Mon Feb 07, 2018 8:04 AM Status: Signed DURATION OF SYMPTOMS: Began 3 days ago ONSET OF SYMPTOMS: Gradual FEVER: No BODYACHES: Mild TIREDNESS: Mild HEADACHE: No EAR SYMPTOMS: Pressure in left ear STUFFY NOSE: Yes POST NASAL DRIP: No SNEEZING: No SORE THROAT: Yes - mild COUGH: Yes, with sputum production CHEST DISCOMFORT: Yes - described as heavy, tight SHORTNESS OF BREATH: Yes - at rest WHEEZING: Yes - patient has positive history of asthma SPUTUM PRODUCTION: Yellow OVER THE COUNTER MEDICATION PATIENT IS TAKING: No, using Tessalon Pearls ALLERGIES VERIFIED WITH PATIENT: Yes DOCUMENTED ALLERGIES: Augmentin [Amoxicillin-Pot Clavulanate]; Codeine; Shellfish Containing Products; Bacitracin; Latex Encounter Status:Closed by JEY TSE MD on 02/07/18 PROGRESS Observed: 12/23/2017 Status: COMPLETED Source: [place] 8:11 AM [facility] [place] REPOSITORY O ID: [id number] Author: Krupa Angulo Service: (none) Author Type: Physician Type: Progress Notes Filed: 12/23/2017 8:43 AM Note Text: [facility] [place], 12/23/2017: INTERVAL HISTORY: The patient is here for follow up of COPD. The last Pulmonary Clinic visit was 08/2017. Severe GI distress and vomiting within hours of Augmentin dose prescribed at last visit, seen in ED and completed alternate therapy without complication, and also completed prednisone; with improvement in presentation symptoms. There has been no ED care or hospital admission for exacerbation since. Claims to be consistently compliant with prescribed BID Symbicort and Spiriva QD. No unusual cough. Little non-purulent sputum. No hemoptysis. No pleuritic chest pain. Only occasional wheezing, not unusual. Exertional dyspnea variable but limit efforts to walk almost daily. Albuterol use varies depending on activity and weather; gets relief. ? PMH: Updated with patient today. FAMH: Updated with patient today. SOCH: Updated with patient today. ? Immunization History Administered Date(s) Administered Influenza Seasonal - High Dose - Age 65+ 12/07/2015 11/23/2016 11/20/2017 Pneumococcal-13 Vac Conjugate 03/03/2014 Pneumovax 12/24/2007 ? ? ROS: Reviewed with patient, confirmed as documented by Palak Marie LPN. TO ? Allergies were reviewed and updated, and medications were reconciled with the patient. ? PHYSICAL EXAMINATION: BP 136/80 Pulse 78 Resp 15 Wt 110 lb (49.9kg) SpO2 96% Gen: No acute distress. Cooperative with examination. ENT: Oral hygeine and dentition good. Pharynx clear. No halitosis. Resp: No stridor, accessory respiratory muscle use, supra- sternal or intercostal retractions. No wheezes, crackles. CV: Regular rythm. Heart tones normal. Radial pulses normal. Abd: Non distended. MSK: No kyphoscoliosis. Ext: Warm and well perfused. No clubbing, cyanosis, edema. Skin: No rash, ecchymoses. Neuro: Mental status normal. Affect normal. No tremor. ? DATA REVIEW: DATE: 09/02/17 06/05/16 FVC 2.15 (93 % pred) 2.12 (84 % pred) FEV1 1.03 (60 % pred) 1.12 (59 % pred) +6 % post BD FEV1/FVC 0.48 0.53 ? ? IMPRESSION/RECOMMEND: 1. Chronic obstructive pulmonary disease, emphysema and chronic bronchitis. - Continue Symbicort 160/4.5 2 puffs twice daily. ?Rinse mouth after use. - Continue Spiriva 1 puff once daily. - Trelegy not on insurance formulary. - Continue using Albuterol, 2 puffs prior to activities associated with shortness of breath and up to every 4 hours as needed for shortness of breath/wheezing. - Pneumococcal vaccinations are current and do not need repeated. - Annual Influenza vaccination also up to date. ? Re-assess in 6 months. ? I addressed the questions of the patient, and she expressed understanding and acceptance of my answers Krupa Angulo MD, [facility] [place] [facility] [address] [address] P: [phone] F: [phone] [email or web address] Observed: 12/23/2017 Status: COMPLETED Source: [place] 8:[address] [facility] REPOSITORY Office Visit (ERINWS) [place] ([id number]) 1940 F Date Time Provider Department 12/23/17 8:00 AM KRUPA ANGULO During your visit today, we recorded the following information about you: Pulse Respiration Blood pressure Weight 78/minute 15/minute 136/80 49.9 kg Palak Marie LPN 12/23/2017 8:15 AM Attested Attestation signed by Krupa Angulo at 12/23/2017 8:25 AM Reviewed with patient, confirmed as documented by Palak Marie LPN. TO ROS: General: Generally feels well. Appetite good. Eyes, Ears, nose, throat: denies post nasal drip. denies rhinorrhea. denies purulent nasal discharge. denies epistaxis. notes hoarseness. Vision stable. Cardiac: denies angina, denies edema, denies orthopnea. GI: denies heartburn. denies dysphagia. denies diarrhea. Uro/GENERAL DOC: notes dysuria. notes hesitancy. notes nocturia. Menses: post menopausal Musculoskeletal: notes joint pain. Neuro: denies headache, denies focal weakness. denies tremor. Skin: denies rash. Otherwise negative. Krupa Angulo MD 12/23/2017 8:43 AM Signed [facility] [place], 12/23/2017: INTERVAL HISTORY: The patient is here for follow up of COPD. The last Pulmonary Clinic visit was 08/2017. Severe GI distress and vomiting within hours of Augmentin dose prescribed at last visit, seen in ED and completed alternate therapy without complication, and also completed prednisone; with improvement in presentation symptoms. There has been no ED care or hospital admission for exacerbation since. Claims to be consistently compliant with prescribed BID Symbicort and Spiriva QD. No unusual cough. Little non-purulent sputum. No hemoptysis. No pleuritic chest pain. Only occasional wheezing, not unusual. Exertional dyspnea variable but limit efforts to walk almost daily. Albuterol use varies depending on activity and weather; gets relief. ? PMH: Updated with patient today. FAMH: Updated with patient today. SOCH: Updated with patient today. ? Immunization History Administered Date(s) Administered Influenza Seasonal - High Dose - Age 65+ 12/07/2015 11/23/2016 11/20/2017 Pneumococcal-13 Vac Conjugate 03/03/2014 Pneumovax 12/24/2007 ? ? ROS: Reviewed with patient, confirmed as documented by Palak Marie LPN. TO ? Allergies were reviewed and updated, and medications were reconciled with the patient. ? PHYSICAL EXAMINATION: BP 136/80 Pulse 78 Resp 15 Wt 110 lb (49.9kg) SpO2 96% Gen: No acute distress. Cooperative with examination. ENT: Oral hygeine and dentition good. Pharynx clear. No halitosis. Resp: No stridor, accessory respiratory muscle use, supra- sternal or intercostal retractions. No wheezes, crackles. CV: Regular rythm. Heart tones normal. Radial pulses normal. Abd: Non distended. MSK: No kyphoscoliosis. Ext: Warm and well perfused. No clubbing, cyanosis, edema. Skin: No rash, ecchymoses. Neuro: Mental status normal. Affect normal. No tremor. ? DATA REVIEW: DATE: 09/02/17 06/05/16 FVC 2.15 (93 % pred) 2.12 (84 % pred) FEV1 1.03 (60 % pred) 1.12 (59 % pred) +6 % post BD FEV1/FVC 0.48 0.53 ? ? IMPRESSION/RECOMMEND: 1. Chronic obstructive pulmonary disease, emphysema and chronic bronchitis. - Continue Symbicort 160/4.5 2 puffs twice daily. ?Rinse mouth after use. - Continue Spiriva 1 puff once daily. - Trelegy not on insurance formulary. - Continue using Albuterol, 2 puffs prior to activities associated with shortness of breath and up to every 4 hours as needed for shortness of breath/wheezing. - Pneumococcal vaccinations are current and do not need repeated. - Annual Influenza vaccination also up to date. ? Re-assess in 6 months. ? I addressed the questions of the patient, and she expressed understanding and acceptance of my answers Krupa Angulo MD, [facility] [place] [address] P: [phone] F: [phone] [email or web address] Krupa Angulo MD 12/23/2017 8:41 AM Addendum IMPRESSION/RECOMMEND: 1. Chronic obstructive pulmonary disease, emphysema and chronic bronchitis. - Continue Symbicort 160/4.5 2 puffs twice daily. ?Rinse mouth after use. - Continue Spiriva 1 puff once daily. - Trelegy not on insurance formulary. - Continue using Albuterol, 2 puffs prior to activities associated with shortness of breath and up to every 4 hours as needed for shortness of breath/wheezing. - Pneumococcal vaccinations are current and do not need repeated. - Annual Influenza vaccination also up to date. Krupa Angulo MD, [facility] [address] [address] P: [phone] F: [phone] [email or web address] Referring Provider: SELF [[id number]] Allergies As of Date: 12/23/2017 Noted Allergy Reaction AUGMENTIN (AMOXICILLIN-POT CLAVUL*12/23/2017 11 - Vomiting CODEINE 03/03/2016 8 - GI Upset 11 - Vomiting SHELLFISH CONTAINING PRODUCTS 03/03/2016 7 - Swelling 10 - Anaphylaxis 12 - Shortness of Breath BACITRACIN 03/03/2016 9 - Itching LATEX 03/03/2016 2 - Rash Date Reviewed: 12/23/2017 Reviewed by: Krupa Angulo - Fully Assessed Reason for Visit: Established Patient [175] Cmt: COPD Primary Visit Diagnosis:COPD with chronic bronchitis ([facility]) [J44.9] Other Visit Diagnoses:Pulmonary emphysema, unspecified emphysema type ([facility]) [J43.9] Mitral valve insufficiency, unspecified etiology [I34.0] CLL (chronic lymphocytic leukemia) ([facility]) [C91.90] Prescriptions as of 12/23/2017 Sig: VENTOLIN HFA 90 MCG/ACTUATION* INHALE TWO PUFFS BY MOUTH 4 T* TIOTROPIUM BROMIDE 18 MCG CAP* INHALE THE CONTENTS OF ONE CA* BUDESONIDE-FORMOTEROL HFA 160* Inhale 2 Puffs as instructed * FLUTICASONE 50 MCG/ACTUATION * Use 1 Providence in each nostril o* ALENDRONATE 70 MG TABLET Take 1 tablet by mouth once e* CHOLECALCIFEROL (VITAMIN D3) * Take 1 capsule by mouth once * CALCIUM ORAL Take 1 tablet by mouth once d* MAGNESIUM ORAL Take 1 tablet by mouth once d* Problem List As Of Date 12/23/2017 Noted Resolved CLL (chronic lymphocytic leukemia) ([facility]) [C91.9*INVALID FOR* Epigastric pain [R10.13] INVALID FOR* Emphysema of lung ([facility]) [J43.9] INVALID FOR* Breast cancer ([facility]) [C50.919] More... Mitral valve regurgitation [I34.0] More... Osteoporosis [M81.0] Non Hodgkin's lymphoma ([facility]) [C85.90] More... COPD (chronic obstructive pulmonary disease) (H* Mixed hyperlipidemia [E78.2] INVALID FOR* History of breast cancer in female [Z85.3] INVALID FOR* Notes for Staff Discussed this visit Other instructions from your clinician: IMPRESSION/RECOMMEND: 1. Chronic obstructive pulmonary disease, emphysema and chronic bronchitis. - Continue Symbicort 160/4.5 2 puffs twice daily. ?Rinse mouth after use. - Continue Spiriva 1 puff once daily. - Trelegy not on insurance formulary. - Continue using Albuterol, 2 puffs prior to activities associated with shortness of breath and up to every 4 hours as needed for shortness of breath/wheezing. - Pneumococcal vaccinations are current and do not need repeated. - Annual Influenza vaccination also up to date. Krupa Angulo MD, [facility] [place] [facility] [address] [place] [id number] P: [phone] F: [phone] Visit Notes: >> Palak Marie [employer] [facility] Dec 23, 2017 8:06 AM Status: Attested ROS: General: Generally feels well. Appetite good. Eyes, Ears, nose, throat: denies post nasal drip. denies rhinorrhea. denies purulent nasal discharge. denies epistaxis. notes hoarseness. Vision stable. Cardiac: denies angina, denies edema, denies orthopnea. GI: denies heartburn. denies dysphagia. denies diarrhea. Uro/GENERAL DOC: notes dysuria. notes hesitancy. notes nocturia. Menses: post menopausal Musculoskeletal: notes joint pain. Neuro: denies headache, denies focal weakness. denies tremor. Skin: denies rash. Otherwise negative. Medications Discontinued During This Encounter metroNIDAZOLE (FLAGYL) 500 mg tablet 30 t* 0 09/21/2017 12/23/2017 Route: ORAL Sig: Take 1 tablet by mouth three times daily. Patient not taking: Reported on 12/23/2017 Disc: Course of therapy completed Follow Up: Discussed this visit Disposition: Return in about 6 months (around 06/22/2018). Follow-up and Disposition History Recorded Encounter Status:Closed by KRUPA ANGULO MD on 12/23/17 CNNURSE Observed: 11/20/2017 Status: COMPLETED Source: [place] 9:[address] [facility] REPOSITORY Nurse Visit (CORWST) [place] PENALOZA ([id number]) 1940 F Date Time Provider Department 11/20/17 9:50 AM [facility] During your visit today, we recorded the following information about you: An Leach Ayana 11/20/2017 9:31 AM Signed 77 year old female here for INACTIVATED INFLUENZA VACCINE. Season Patient is identified by name and date of : Yes [] CONTRAINDICATIONS color enhanced section Age less than 6 months? No Allergy to eggs, chicken, chicken feathers, or chicken dander? No Allergy to thimerosal (a preservative) or formaldehyde, gelatin? No History of severe reaction to any vaccine component or a previous dose of influenza vaccination? No History of Guillain-[place] Syndrome within 6 weeks after a previous influenza vaccine? No Patient is not moderately or severely ill? No Current temperature greater or equal to 100.4F? No History of Bone Marrow Transplant prior 6 months or solid organ transplant in the past 3 months ? No History of fainting after a prior injection or medical procedure? No- ? If patient has fainted in the past, the CDC recommends sitting or lying down for 15 minutes after the vaccination. [] VERIFICATION color enhanced section Was the answer Yes for any of the above contraindications? No contraindications present. Acceptable to proceed with vaccine. Patient/guardian agrees the above answers are true to the best of their knowledge? Yes Flu vaccine information sheet given? Yes See immunization activity in [facility] for details of immunizations adminstered today. Patient age: [age] year old For The Flu Season 6-35 months old: Fluzone 0.25 ml - IM (Preservative Free) 3 years of age: Fluzone 0.5 ml - IM (Preservative Free) 3 years and older: Fluzone 0.5 ml- IM-(with Preservatives) 65+ years old: 2-49 years old Fluzone High-Dose 0.5 ml - IM (Preservative Free) FLUMIST- intranasal REMEMBER: If patient is less than 9 years of age and this is the first vaccine of Influenza to be received in any flu season, they should receive a second dose in one months time. Referring Provider: SELF [200] Allergies As of Date: 11/20/2017 Noted Allergy Reaction CODEINE 03/03/2016 8 - GI Upset 11 - Vomiting SHELLFISH CONTAINING PRODUCTS 03/03/2016 7 - Swelling 10 - Anaphylaxis 12 - Shortness of Breath BACITRACIN 03/03/2016 9 - Itching LATEX 03/03/2016 2 - Rash Date Reviewed: 09/16/2017 Reviewed by: An Leach Ma - Fully Assessed Reason for Visit: Imm/Inj [58] Cmt: Flu Vaccine Primary Visit Diagnosis:Need for vaccination [Z23] Order(s):INFLUENZA SEASONAL HIGH DOSE AGE 65+ [[id number]] Order #: [id number] Prescriptions as of 11/20/2017 Sig: METRONIDAZOLE 500 MG TABLET Take 1 tablet by mouth three * TIOTROPIUM BROMIDE 18 MCG CAP* INHALE THE CONTENTS OF ONE CA* BUDESONIDE-FORMOTEROL HFA 160* Inhale 2 Puffs as instructed * FLUTICASONE 50 MCG/ACTUATION * Use 1 Providence in each nostril o* ALENDRONATE 70 MG TABLET Take 1 tablet by mouth once e* X ALBUTEROL SULFATE HFA 90 MCG/* Inhale 2 Puffs as instructed * CHOLECALCIFEROL (VITAMIN D3) * Take 1 capsule by mouth once * CALCIUM ORAL Take 1 tablet by mouth once d* MAGNESIUM ORAL Take 1 tablet by mouth once d* Problem List As Of Date 11/20/2017 Noted Resolved CLL (chronic lymphocytic leukemia) (HCC) [C91.9*INVALID FOR* Epigastric pain [R10.13] INVALID FOR* Emphysema of lung (HCC) [J43.9] INVALID FOR* Breast cancer (HCC) [C50.919] More... Mitral valve regurgitation [I34.0] More... Osteoporosis [M81.0] Non Hodgkin's lymphoma (HCC) [C85.90] More... COPD (chronic obstructive pulmonary disease) (H* Mixed hyperlipidemia [E78.2] INVALID FOR* History of breast cancer in female [Z85.3] INVALID FOR* Encounter Status:Closed by AN LEACH MA on 11/20/17 PROGRESS Observed: 11/16/2017 Status: COMPLETED Source: [place] 10:[address] [facility] REPOSITORY HNO ID: [id number] Author: An Leach Ma Service: (none) Author Type: (none) Type: Progress Notes Filed: 11/20/2017 9:31 AM Note Text: 77 year old female here for INACTIVATED INFLUENZA VACCINE. 4604-6255 Season Patient is identified by name and date of : Yes [] CONTRAINDICATIONS color enhanced section Age less than 6 months? No Allergy to eggs, chicken, chicken feathers, or chicken dander? No Allergy to thimerosal (a preservative) or formaldehyde, gelatin? No History of severe reaction to any vaccine component or a previous dose of influenza vaccination? No History of Guillain-[place] Syndrome within 6 weeks after a previous influenza vaccine? No Patient is not moderately or severely ill? No Current temperature greater or equal to 100.4F? No History of Bone Marrow Transplant prior 6 months or solid organ transplant in the past 3 months ? No History of fainting after a prior injection or medical procedure? No- ? If patient has fainted in the past, the CDC recommends sitting or lying down for 15 minutes after the vaccination. [] VERIFICATION color enhanced section Was the answer Yes for any of the above contraindications? No contraindications present. Acceptable to proceed with vaccine. Patient/guardian agrees the above answers are true to the best of their knowledge? Yes Flu vaccine information sheet given? Yes See immunization activity in [facility] for details of immunizations adminstered today. Patient age: [age] year old For The 5083-3401 Flu Season 6-35 months old: Fluzone 0.25 ml - IM (Preservative Free) 3 years of age: Fluzone 0.5 ml - IM (Preservative Free) 3 years and older: Fluzone 0.5 ml- IM-(with Preservatives) 65+ years old: 2-49 years old Fluzone High-Dose 0.5 ml - IM (Preservative Free) FLUMIST- intranasal REMEMBER: If patient is less than 9 years of age and this is the first vaccine of Influenza to be received in any flu season, they should receive a second dose in one months time. CARDIOLOGY VISIT Observed: 10/29/2017 Status: F Source: [place] REPORT 9:29 AM [facility] REPOSITORY [facility] [address] [place] [address] OFFICE VISIT Date of Service: 10/29/17 MR#: [id number] Acct: [id number] Name: MADISON PENALOZA Rep #: [id number] : 1940 Provider: Ronak Roper MD Age/Sex: 77/F Location: [facility] Status: Signed HPI HPI Details: MADISON PENALOZA, is a 77 F who presents to the office today for for outpatient follow-up of her history of underlying mitral/tricuspid valve disease. She notes that overall she has been doing well from a cardiovascular standpoint. She denies any ongoing symptoms of chest discomfort, difficulty breathing, palpitations, near- syncope or syncope. Other than her transthoracic echocardiogram performed last year she is required no additional cardiovascular diagnostic studies or therapeutic intervention. Her blood pressure was noted to be elevated today. She commented that it has been elevated on other physician appointments as well. Her blood pressure was rechecked today. On recheck her blood pressure was approximately 140/86 mmHg. She states she does have the ability to check her blood pressure at home but she does not do so appear Intake Vital Signs10/29/17 Height 5 ft 1 in 10/29/17 Weight: 108 lb 10/29/17 Body Mass Index (BMI) 20.4 10/29/17 Blood Pressure 150/88 Intake Visit Reasons: 1 Y FU Allergies shellfish derived Allergy (Severe, Verified 10/29/17 08:39) Anaphylaxis bacitracin Allergy (Verified 10/29/17 08:39) Rash codeine Allergy (Verified 10/29/17 08:39) Rash latex Allergy (Verified 10/29/17 08:39) IF PT USES LATEX GLOVES GETS RASH Medications Albuterol IH (ProAir) [Proair Hfa (SP)Vent Pts] 1 - 2 puff INHALATION Q6H PRN PRN 10/09/16 [History Confirmed 10/29/17] Alendronate Sodium [Fosamax] 70 mg PO AVILSE 10/09/16 [History Confirmed 10/29/17] Budesonide/Formoterol 160/4.5 [Symbicort 160/4.5 Mcg Inhaler (SP)] 2 puff INHALATION DAILY 10/09/16 [History Confirmed 10/29/17] Calcium Carbonate [Calcium] 600 mg PO DAILY 10/09/16 [History Confirmed 10/29/17] Fluticasone 0.05% [Flonase Nasal Providence] 1 spray NASAL DAILY 10/09/16 [History Confirmed 10/29/17] Tiotropium Mora [Spiriva 18 MCG] 2 puff INHALATION DAILY 10/09/16 [History Confirmed 10/29/17] Meclizine HCl [Antivert] 25 mg PO 4X/DAY PRN PRN #20 tab 09/02/17 [Rx Confirmed 10/29/17] Ondansetron [Zofran Odt] 4 mg PO Q8H PRN PRN #10 tab 09/02/17 [Rx Confirmed 10/29/17] PFSH Medical History Nonrheumatic tricuspid valve regurgitation (Acute) Nonrheumatic mitral valve regurgitation (Acute) Major hemoptysis (Inactive) Nausea AND vomiting (Acute) Pneumothorax (Chronic) Non-Hodgkin lymphoma (Chronic) CML (chronic myelocytic leukemia) (Chronic) Weight loss (Chronic) COPD (chronic obstructive pulmonary disease) (Chronic) CLL (chronic lymphocytic leukemia) (Inactive) RLQ abdominal pain (Acute) Cervical cancer (Chronic) History of bilateral breast cancer (Chronic) Surgical History History of bladder surgery (Resolved) History of breast reconstruction (Resolved) History of cataract surgery (Resolved) History of dilatation and curettage (Resolved) History of lung surgery (Resolved) History of mastectomy (Resolved) Family History Father Abdominal aortic aneurysm (AAA) Social History Smoking Status: Former smoker alcohol intake: current details: 4 glasses wine per week substance use type: does not use ROS Const Const: Negative for fatigue, weakness, weight gain, weight loss, frequent falls or excessive sweating Eyes Eyes: Negative for change in vision, blurry vision or transient loss of vision ENT ENT: Negative for dizziness or balance problems Cardio Chest Pain: No Palpitations: No Edema: Bilateral (dependent edema) Muscle aches with walking: None Resp Respiratory: Positive for SOB with activity (HX COPD, baseline); negative for SOB at rest GI GI: Negative vomiting or vomiting blood/hematemesis : Negative for hematuria Musc Musc: Positive for muscle aches/ myalgia (nighttime bilat LE cramping); negative for balance problems, muscle weakness or joint pain Skin Skin: Negative non-healing lesions or rash Neuro Neuro: Positive for vertigo (patient started on meclizine); negative for weakness, blurry vision, dizziness, lightheadedness, frequent falls or orthostatic symptoms [place] Hematologic/Lymphatic: Negative for easy bleeding Endo Endo: Negative for fatigue or excessive sweating Psych Psych: Negative for anxiety or depression Allergy Allergy/Immunology: Negative for hives, Negative for rash Cardiology Exam Const Appearance: cooperative, healthy appearing, comfortable, no acute distress, well developed and well groomed Nutritional Appearance: thin Orientation: alert, awake and oriented x3 Head Head: normal to inspection, normocephalic and atraumatic Ears: hearing grossly normal bilaterally Nose: external nose normal Face and Sinus: face symmetric Mouth: oral mucosae normal Teeth and gingiva: fair dentition Eyes Eyelids: eyelids normal Conjunctivae: conjunctivae normal Pupils: PERRL EOM: EOM intact bilaterally Neck Neck: normal visual inspection and full ROM Carotids: normal carotid upstroke Chest Chest inspection: normal inspection of the chest and symmetric chest movement Auscultation: Bilateral: Clear to Auscultation Cardio Palpation: normal PMI Rate: regular rate Rhythm: regular rhythm Heart sounds: S1 normal, S2 normal and mid systolic click Murmur: Grade 2/6, mid systolic and LLSB GI GI: normal to inspection, soft and bowel sounds present Neuro General: alert, awake, oriented x3 and moves all extremities Skin Skin: no rashes or lesions noted Extremities Pulses: Normal: Right Radial Pulse, Left Radial Pulse Lower Extremity Edema: None: Bilateral Psych Psychological: normal affect Supplemental Info She did have a transthoracic echocardiogram performed on 11/06/2016. Interpretation Summary Left ventricular systolic function is normal. The estimated ejection fraction is 65 %. The left atrium is mildly enlarged. The right atrium is mildly enlarged. There is mild mitral annular calcification. Mild mitral valve prolapse, posterior leaflet Mild diffuse mitral valve thickening. Moderate (2+) mitral valve insufficiency. Mild to moderate (1-2+) tricuspid valve insufficiency. Mild focal aortic valve calcification. 2D echocardiographic images demonstrate a small mobile echodensity on the aortic side of the aortic valve appearing c/w a Lambls Excresence. Trivial pulmonic valve insufficiency. Right ventricular systolic pressure estimated to be 23 mmHg. She had a stress test performed at [facility] in [facility] on 07/04/2015. Pharmacologic stress testing with Cardiolite and myocardial perfusion imaging was performed on 07/04/2015. The study was negative for evidence of ischemia or infarction. No transient ischemic dilatation. Assessment AND Plan 1. Nonrheumatic mitral valve insufficiency I34.0 Plan At the present time she appears to be without any obvious acute symptoms. She will continue her current medical management and follow-up. Over time consideration will be given to a follow-up transthoracic echocardiogram to monitor her valvular heart these. 2. Nonrheumatic tricuspid valve regurgitation I36.1 Plan Again she appears to be without any acute changes. She will continue her current therapy and follow-up as noted above 3. HTN (hypertension) I10 Plan Her blood pressure is elevated. She was asked to monitor her blood pressure at home for approximately 4-6 weeks. She was asked to report those blood pressure recordings to the office. If her blood pressure trends remain elevated then she will need adjustment of medications and attempt to bring her blood pressure under better control Plan Detail Additional Comments Thank you for allowing me to participate in the care of your patient. Please don't hesitate to call if any issues arise. This note was generated using a voice recognition system and there may be incorrect words, spelling or punctuation that were not noted when reviewing the office note prior to saving. Follow Up 1 Year (PF) Coding Level of Care Code Off vis,est,level 3 Diagnoses Nonrheumatic mitral valve insufficiency I34.0 Nonrheumatic tricuspid valve regurgitation I36.1 HTN (hypertension) I10 Coding Level of Care Code Off vis,est,level 3 Diagnoses Nonrheumatic mitral valve insufficiency I34.0 Nonrheumatic tricuspid valve regurgitation I36.1 HTN (hypertension) I10 10/29/17 0929 <Electronically signed by Ronak Roper MD> Date Ronak Roper MD Cosigner Signature: Date (if applicable) CC: Jey Tse MD CBC Collected: 09/29/2017 Status: F Source: [place] 9:55 AM [facility] [place] REPOSITORY TYPE CODE TESTS RESULT OUT OF REFERENCE UNITS RANGE LAB WBC 3.70-11.00 k/uL WBC 10.62 LAB RBC 3.90-5.20 m/uL RBC 4.53 LAB HGB 11.5-15.5 g/dL Hemoglobin 14.0 LAB HCT 36.0-46.0 % Hematocrit 43.9 LAB MCV 80.0-100.0 fL MCV 96.9 LAB MCH 26.0-34.0 pG MCH 30.9 LAB MCHC 30.5-36.0 g/dL MCHC 31.9 LAB RDWCV 11.5-15.0 % RDW-CV 14.9 LAB PLTCT 150-400 k/uL Platelet Count 174 LAB MPV 9.0-12.7 fL MPV 12.2 LAB ABSNUC <0.01 k/uL Absolute High nRBC 0.02 Performed By: #### CBC, CMP #### [facility] [address] [place], [place] [address] COMP METABOLIC PANEL Collected: 09/29/2017 Status: F Source: [place] 9:[address] [facility] REPOSITORY TYPE CODE TESTS RESULT OUT OF REFERENCE UNITS RANGE LAB TP 6.3-8.0 g/dL Low Protein, Total 5.6 LAB ALB 3.9-4.9 g/dL Low Albumin 3.7 LAB CA 8.5-10.2 mg/dL Calcium, Total 9.1 LAB TBIL 0.2-1.3 mg/dL Bilirubin, Total 0.5 LAB ALKP 32-117 U/L Alkaline Phosphatase 60 LAB AST 13-35 U/L AST 32 LAB GLU 74-99 mg/dL Glucose 93 Result Comment: The [place] Diabetes Association (ADA) provides guidance for cutoff values for fasting glucose and random glucose. The ADA defines fasting as no caloric intake for at least 8 hours. Fas ting plasma glucose results between 100 to 125 mg/dL indicate increased risk for diabetes (prediabetes). Fasting plasma glucose results greater than or equal to 126 mg/dL meet the criteria for diagnosis of diabetes. In the absence of unequivocal hyperglycemia, results should be confirmed by repeat testing. In a patient with classic symptoms of hyperglycemia or hyperglycemic crisis, random plasma glucose results greater than or equal to 200 mg/dL meet the criteria for diagnosis of diabetes. Reference: Standards of Medical Care in Diabetes 2016, [place] [employer] Association. Diabetes Care. 2016.39(Suppl 1). LAB BUN 7-21 mg/dL BUN 20 LAB CRET 0.58-0.96 mg/dL Creatinine 0.70 LAB NA 136-144 mmol/L Sodium High 145 LAB K 3.7-5.1 mmol/L Potassium 4.1 LAB CL 97-105 mmol/L Chloride High 107 LAB CO2 22-30 mmol/L CO2 24 LAB AGAP 9-18 mmol/L Anion Gap 14 LAB ALT 7-38 U/L ALT 33 LAB GFRAA eGFR- Amer. >60 LAB GFRNAA . eGFR-All Other Races >60 Result Comment: eGFR (Estimated GFR) Units of measure: mL/min/1.73 meters squared eGFR is derived from the reexpressed MDRD Study equation using the following parameters: serum creatinine, age, gender and race. The creatinine assay has been calibrated to be traceable to IDMS. An eGFR <60 mL/min/1.73m2 for >3 months is consistent with chronic kidney disease. Refer to KDOQI guidelines for clinical interpretation. In patients with unstable renal function, e.g. those with acute kidney injury, the eGFR may not accurately reflect actual GFR. Performed By: #### CBC, CMP #### [facility] [address] [place], [place] [address] Observed: 09/29/2017 Status: F Source: [place] URINE CULTURE 9:[address] [facility] REPOSITORY Sp. Request/Comment: - Specimen received in preservative Culture Result - <10,000 CFU/ml Lactose negative gram negative bacilli --> ABNORMAL ALERT Insignificant colony count. No further workup. --> ABNORMAL ALERT Performed By: #### URCUL #### [facility] [address] [place], [place] [address] CNOV Observed: 09/29/2017 Status: COMPLETED Source: [place] 8:[address] [facility] REPOSITORY Office Visit (FAMPWS) MADISON PENALOZA ([id number]) 1940 F Date Time Provider Department 09/29/17 8:20 AM [facility] During your visit today, we recorded the following information about you: Temperature Pulse Respiration Blood pressure 97.3 degrees 80/minute 16/minute 138/78 Jey Tse MD 09/29/2017 11:22 AM Signed No chief complaint on file. HPI: Patient is a 77yo female, who presents today for office visit for F/U on C. Diff treatment (patient mentions virus on intake). Patient was dx with C. Diff on 09/21/17, and was directed to begin Flagyl, push fluids, and follow-up with office in one week. Does not have the diarrhea right now. It is more of constipation, and small amounts of pellet size stool, that is hard. Mrs. Penaloza has been trying to increase the amount of probiotics in diet, Boost, and yogurt. Is no longer eating rice. Increasing fiber in diet and probiotics can help regularity. Patient states she had intestinal problems in the past, doctor at that time prescribed a laxative regime, to make sure that Mrs. Penaloza remains. GI: Prior dx of C. Diff, was prescribed Flagyl, told to increase fluids, and is following up today. Was originally prescribed Augmentin (Amox/Clav) by respiratory therapist which might have lead to exacerbation. On palpation felt a little firm area on sit-up above navel, potentially a ventral hernia. Recommended follow-up up if there is any progression or pain. ONCO: Hx of malignant neoplasm of central left breast. She will see the oncologist next month, will get results sent to us. Patient was directed to never receive the shingles shot due to conditions. CLL: elevated white cells, and hematocrit on last CBC from 09/16/17. Ordering blood tests to see where patient is at on cell counts. Hyperglycemia: last value obtained was 89, recent hba1c is better. Urinary: yesterday it was brownish, but not having urinary pain. Ordering UA to check for presence of bacteria, prior to decision to start/not start antibiotics. No fever or chills. No hematuria. COPD: previous appointment showed numbers that are really good, according to patient. MEDICATIONS: Current Outpatient Prescriptions: metroNIDAZOLE (FLAGYL) 500 mg tablet Take 1 tablet by mouth three times daily. meclizine (ANTIVERT) 25 mg tab Take 25 mg by mouth three times daily. predniSONE (DELTASONE) 10 mg tablet 4 tabs daily for 3 days, 3 tabs daily for 3 days, 2 tabs daily for 3 days, 1 tabs daily for 3 days. benzonatate (TESSALON PERLE) 100 mg capsule Take 1 capsule by mouth three times daily as needed for Cough. albuterol HFA (PROVENTIL HFA, VENTOLIN HFA) 90 mcg/actuation inhaler Inhale 2 Puffs as instructed four times daily as needed. FOR WHEEZING AND SHORTNESS OF BREATH. tiotropium (SPIRIVA WITH HANDIHALER) 18 mcg inhalation capsule INHALE THE CONTENTS OF ONE CAPSULE ONCE DAILY budesonide-formoterol (SYMBICORT) 160-4.5 mcg/actuation inhaler Inhale 2 Puffs as instructed twice daily. fluticasone (FLONASE) 50 mcg/actuation nasal spray Use 1 Providence in each nostril once daily. alendronate (FOSAMAX) 70 mg tablet Take 1 tablet by mouth once each week. Take with a full glass of water, on an empty stomach; do NOT lie down for 30minutes. Cholecalciferol, Vitamin D3, (VITAMIN D-3) 2,000 unit cap Take 1 capsule by mouth once daily. CALCIUM ORAL Take 1 tablet by mouth once daily. MAGNESIUM ORAL Take 1 tablet by mouth once daily. No current facility-administered medications for this visit. ALLERGIES: ALLERGIES Allergen Reactions - Codeine GI Upset, Vomiting - Shellfish Containin* Swelling, Anaphylaxis, Shortness of Breath - Bacitracin Itching - Latex Rash PAST MEDICAL HISTORY Diagnosis Date - Breast cancer (HCC) Left mastectomy. Right mastectomy. Bilateral reconstructions. No chemo/XRT. - Cervical cancer (HCC) Remote. SOHEILA/BSO. No chemo or XRT. - COPD (chronic obstructive pulmonary disease) (HCC) - Mitral valve regurgitation - Non Hodgkin's lymphoma (HCC) About 14 years ago. No XRT, chemotherapy. Watchful waiting. - Osteoporosis PAST SURGICAL HISTORY Procedure Laterality Date - BREAST RECONSTRUCTION - CATARACT EXTRACTION HX Bilateral 2011 - CATARACT SURGERY, COMPLEX - COLONOSCOPY W/BX 10/12/2016 - DANDC DIAG AND/OR THERAP, NOT OB - EGD - EGD W/O BRSH SPECIMEN W/BX 10/12/2016 - HEMORRHOIDECTOMY - MASTECTOMY HX Bilateral 1982 - PAST SURGICAL HISTORY OF Bronchial artery embolization, left lung - PAST SURGICAL HISTORY OF 2002 Lymph node removal on left arm - SLING OPER STRES INCONTINENCE - TOT ABDOMINL HYSTERECTOMY 1984 FAMILY HISTORY Problem Relation Age of Onset - Alzheimer's Disease Mother in her 80s. - Aneurysm Father AAA at age 61. - Chronic bronchitis. [OTHER] Father Social History Marital status: Spouse name: Years of education: Number of children: Social History Main Topics Smoking status: Former Smoker Packs/day: 1.00 Years: 30.00 Types: Cigarettes Quit date: 02/22/1999 Smokeless tobacco: Never Used Comment: Father smoked in childhood home. Alcohol use: Yes 6.0 oz/week Glasses of Wine (5oz): 4 per week Comment: With dinner. Drug use: No Reviewed current medications, allergies, past medical history, surgical history, family history and social history today. REVIEW OF SYSTEMS All other reviewed and negative other than HPI. VITALS: BP 138/78 Pulse 80 Temp 36.3 ?C (97.3 ?F) (Tympanic) Resp 16 Last 4 Encounter Wt Readings: Date: Wt: 09/16/2017 47.6 kg (105 lb) 09/07/2017 48.1 kg (106 lb) 09/02/2017 48.1 kg (106 lb) 09/02/2017 48.1 kg (106 lb) PHYSICAL EXAMINATION: General appearance: Well appearing, alert, in no acute distress, well-hydrated, well nourished. Skin: Skin color, texture, turgor normal, no suspicious rashes or lesions Head: Normocephalic, no masses, lesions, tenderness or abnormalities Lungs: Lungs clear to auscultation. No wheezing, rhonchi, rales Heart: RRR without murmur, gallop, or rubs. No ectopy Abdomen: Palpated small firmness on sit-up. Potential for ventral hernia. Red flags for re-assessment reviewed with patient in detail. Normal abdominal exam, Abdomen soft, non-tender. Bowel sounds normal. No masses, organomegaly Extremities: No deformities, edema, skin discoloration, clubbing or cyanosis. Good capillary refill. Musculoskeletal: No joint swelling, deformity, or tenderness Peripheral pulses: Normal Back: no cva tenderness ASSESSMENT/PLAN: 1. Dark urine - ICD9: 791.9, ICD10: R82.99 (primary diagnosis) - check labs. Call if any issues. - UA DIP B/O - COMP METABOLIC PANEL - URINE CULTURE 2. Chronic obstructive pulmonary disease, unspecified COPD type (HCC) - ICD9: 496, ICD10: J44.9 - stable. 3. CLL (chronic lymphocytic leukemia) (HCC) - ICD9: 204.10, ICD10: C91.90 - recheck labs after treatment. - CBC 4. Non-Hodgkin's lymphoma, unspecified body region, unspecified non-Hodgkin lymphoma type (HCC) - ICD9: 202.80, ICD10: C85.90 - continue to follow with Dr. Pennington. 5. C. difficile colitis - ICD9: 008.45, ICD10: A04.72 - finish antibiotics. - Red flags for re-assessment reviewed with patient in detail. - discussed avoiding antibiotics unless necessary. Consider things like probiotics if needs to be on them. Jey Tse MD . An Leach Ma 09/29/2017 8:32 AM Signed Urology: patient is concerned about urinary symptoms. Duration of symptoms: few days Dysuria: No. Urinary urgency: No. Urinary frequency: No. Suprapubic pain: Yes. Back pain: No. Fever: No. Nausea: No. Vomiting: No. Pt c/o discolored urine and trouble starting to urinate. Bloating after eating. Pt c/o clogged ears. Still with dizziness. Referring Provider: JEY TSE [[id number]] Allergies As of Date: 09/29/2017 Noted Allergy Reaction CODEINE 03/03/2016 8 - GI Upset 11 - Vomiting SHELLFISH CONTAINING PRODUCTS 03/03/2016 7 - Swelling 10 - Anaphylaxis 12 - Shortness of Breath BACITRACIN 03/03/2016 9 - Itching LATEX 03/03/2016 2 - Rash Date Reviewed: 09/16/2017 Reviewed by: An Leach Ma - Fully Assessed Reason for Visit: Urinary Problem [252] Primary Visit Diagnosis:Dark urine [R82.99] Other Visit Diagnoses:Chronic obstructive pulmonary disease, unspecified COPD type ([facility]) [J44.9] CLL (chronic lymphocytic leukemia) ([facility]) [C91.90] Non-Hodgkin's lymphoma, unspecified body region, unspecified non-Hodgkin lymphoma type ([facility]) [C85.90] C. difficile colitis [A04.72] Order(s):UA DIP B/O [[id number]] Order #: [id number] CBC [SQCBC] Order #: [id number] FUTURE COMP METABOLIC PANEL [SQCMP] Order #: [id number] FUTURE URINE CULTURE [SQURCUL] Order #: [id number] Prescriptions as of 09/29/2017 Sig: METRONIDAZOLE 500 MG TABLET Take 1 tablet by mouth three * ALBUTEROL SULFATE HFA 90 MCG/* Inhale 2 Puffs as instructed * TIOTROPIUM BROMIDE 18 MCG CAP* INHALE THE CONTENTS OF ONE CA* BUDESONIDE-FORMOTEROL HFA 160* Inhale 2 Puffs as instructed * FLUTICASONE 50 MCG/ACTUATION * Use 1 [facility] in each nostril o* ALENDRONATE 70 MG TABLET Take 1 tablet by mouth once e* CHOLECALCIFEROL (VITAMIN D3) * Take 1 capsule by mouth once * CALCIUM ORAL Take 1 tablet by mouth once d* MAGNESIUM ORAL Take 1 tablet by mouth once d* Problem List As Of Date 09/29/2017 Noted Resolved CLL (chronic lymphocytic leukemia) ([facility]) [C91.9*INVALID FOR* Epigastric pain [R10.13] INVALID FOR* Emphysema of lung (HCC) [J43.9] INVALID FOR* Breast cancer (HCC) [C50.919] More... Mitral valve regurgitation [I34.0] More... Osteoporosis [M81.0] Non Hodgkin's lymphoma (HCC) [C85.90] More... COPD (chronic obstructive pulmonary disease) (H* Mixed hyperlipidemia [E78.2] INVALID FOR* History of breast cancer in female [Z85.3] INVALID FOR* Visit Notes: >> An Leach Ma WedSep 29, 2017 8:25 AM Status: Signed Urology: patient is concerned about urinary symptoms. Duration of symptoms: few days Dysuria: No. Urinary urgency: No. Urinary frequency: No. Suprapubic pain: Yes. Back pain: No. Fever: No. Nausea: No. Vomiting: No. Pt c/o discolored urine and trouble starting to urinate. Bloating after eating. Pt c/o clogged ears. Still with dizziness. Medications Discontinued During This Encounter predniSONE (DELTASONE) 10 mg tablet 30 t* 0 09/02/2017 09/29/2017 Si tabs daily for 3 days, 3 tabs daily for 3 days, 2 tabs daily for 3 days, 1 tabs daily for 3 days. Disc: Course of therapy completed meclizine (ANTIVERT) 25 mg tab 09/29/2017 Class: Historical Med Route: ORAL Sig: Take 25 mg by mouth three times daily. Disc: Course of therapy completed benzonatate (TESSALON PERLE) 100 mg * 30 c* 0 08/30/2017 09/29/2017 Route: ORAL Sig: Take 1 capsule by mouth three times daily as needed for Cough. Disc: Course of therapy completed Encounter Status:Closed by JEY TSE MD on 09/29/17 PROGRESS Observed: 09/29/2017 Status: COMPLETED Source: [place] 8:[address] [facility] REPOSITORY HNO ID: [id number] Author: Jey Tse Service: (none) Author Type: Physician Type: Progress Notes Filed: 09/29/2017 11:22 AM Note Text: No chief complaint on file. HPI: Patient is a 77yo female, who presents today for office visit for F/U on C. Diff treatment (patient mentions virus on intake). Patient was dx with C. Diff on 09/21/17, and was directed to begin Flagyl, push fluids, and follow-up with office in one week. Does not have the diarrhea right now. It is more of constipation, and small amounts of pellet size stool, that is hard. Mrs. Penaloza has been trying to increase the amount of probiotics in diet, Boost, and yogurt. Is no longer eating rice. Increasing fiber in diet and probiotics can help regularity. Patient states she had intestinal problems in the past, doctor at that time prescribed a laxative regime, to make sure that Mrs. Penaloza remains. GI: Prior dx of C. Diff, was prescribed Flagyl, told to increase fluids, and is following up today. Was originally prescribed Augmentin (Amox/Clav) by respiratory therapist which might have lead to exacerbation. On palpation felt a little firm area on sit-up above navel, potentially a ventral hernia. Recommended follow-up up if there is any progression or pain. ONCO: Hx of malignant neoplasm of central left breast. She will see the oncologist next month, will get results sent to us. Patient was directed to never receive the shingles shot due to conditions. CLL: elevated white cells, and hematocrit on last CBC from 09/16/17. Ordering blood tests to see where patient is at on cell counts. Hyperglycemia: last value obtained was 89, recent hba1c is better. Urinary: yesterday it was brownish, but not having urinary pain. Ordering UA to check for presence of bacteria, prior to decision to start/not start antibiotics. No fever or chills. No hematuria. COPD: previous appointment showed numbers that are really good, according to patient. MEDICATIONS: Current Outpatient Prescriptions: metroNIDAZOLE (FLAGYL) 500 mg tablet Take 1 tablet by mouth three times daily. meclizine (ANTIVERT) 25 mg tab Take 25 mg by mouth three times daily. predniSONE (DELTASONE) 10 mg tablet 4 tabs daily for 3 days, 3 tabs daily for 3 days, 2 tabs daily for 3 days, 1 tabs daily for 3 days. benzonatate (TESSALON PERLE) 100 mg capsule Take 1 capsule by mouth three times daily as needed for Cough. albuterol HFA (PROVENTIL HFA, VENTOLIN HFA) 90 mcg/actuation inhaler Inhale 2 Puffs as instructed four times daily as needed. FOR WHEEZING AND SHORTNESS OF BREATH. tiotropium (SPIRIVA WITH HANDIHALER) 18 mcg inhalation capsule INHALE THE CONTENTS OF ONE CAPSULE ONCE DAILY budesonide-formoterol (SYMBICORT) 160-4.5 mcg/actuation inhaler Inhale 2 Puffs as instructed twice daily. fluticasone (FLONASE) 50 mcg/actuation nasal spray Use 1 [place] in each nostril once daily. alendronate (FOSAMAX) 70 mg tablet Take 1 tablet by mouth once each week. Take with a full glass of water, on an empty stomach; do NOT lie down for 30minutes. Cholecalciferol, Vitamin D3, (VITAMIN D-3) 2,000 unit cap Take 1 capsule by mouth once daily. CALCIUM ORAL Take 1 tablet by mouth once daily. MAGNESIUM ORAL Take 1 tablet by mouth once daily. No current facility-administered medications for this visit. ALLERGIES: ALLERGIES Allergen Reactions - Codeine GI Upset, Vomiting - Shellfish Containin* Swelling, Anaphylaxis, Shortness of Breath - Bacitracin Itching - Latex Rash PAST MEDICAL HISTORY Diagnosis Date - Breast cancer (HCC) Left mastectomy. Right mastectomy. Bilateral reconstructions. No chemo/XRT. - Cervical cancer (HCC) Remote. SOHEILA/BSO. No chemo or XRT. - COPD (chronic obstructive pulmonary disease) (HCC) - Mitral valve regurgitation - Non Hodgkin's lymphoma (HCC) About 14 years ago. No XRT, chemotherapy. Watchful waiting. - Osteoporosis PAST SURGICAL HISTORY Procedure Laterality Date - BREAST RECONSTRUCTION - CATARACT EXTRACTION HX Bilateral 2011 - CATARACT SURGERY, COMPLEX - COLONOSCOPY W/BX 10/12/2016 - [facility] DIAG AND/OR THERAP, NOT OB - EGD - EGD W/O [facility] SPECIMEN W/BX 10/12/2016 - HEMORRHOIDECTOMY - MASTECTOMY HX Bilateral 1982 - PAST SURGICAL HISTORY OF Bronchial artery embolization, left lung - PAST SURGICAL HISTORY OF 2002 Lymph node removal on left arm - SLING OPER STRES INCONTINENCE - TOT ABDOMINL HYSTERECTOMY 1984 FAMILY HISTORY Problem Relation Age of Onset - Alzheimer's Disease Mother in her 80s. - Aneurysm Father AAA at age 61. - Chronic bronchitis. [OTHER] Father Social History Marital status: Spouse name: Years of education: Number of children: Social History Main Topics Smoking status: Former Smoker Packs/day: 1.00 Years: 30.00 Types: Cigarettes Quit date: 02/22/1999 Smokeless tobacco: Never Used Comment: Father smoked in childhood home. Alcohol use: Yes 6.0 oz/week Glasses of Wine (5oz): 4 per week Comment: With dinner. Drug use: No Reviewed current medications, allergies, past medical history, surgical history, family history and social history today. REVIEW OF SYSTEMS All other reviewed and negative other than HPI. VITALS: BP 138/78 Pulse 80 Temp 36.3 ?C (97.3 ?F) (Tympanic) Resp 16 Last 4 Encounter Wt Readings: Date: Wt: 09/16/2017 47.6 kg (105 lb) 09/07/2017 48.1 kg (106 lb) 09/02/2017 48.1 kg (106 lb) 09/02/2017 48.1 kg (106 lb) PHYSICAL EXAMINATION: General appearance: Well appearing, alert, in no acute distress, well-hydrated, well nourished. Skin: Skin color, texture, turgor normal, no suspicious rashes or lesions Head: Normocephalic, no masses, lesions, tenderness or abnormalities Lungs: Lungs clear to auscultation. No wheezing, rhonchi, rales Heart: RRR without murmur, gallop, or rubs. No ectopy Abdomen: Palpated small firmness on sit-up. Potential for ventral hernia. Red flags for re-assessment reviewed with patient in detail. Normal abdominal exam, Abdomen soft, non-tender. Bowel sounds normal. No masses, organomegaly Extremities: No deformities, edema, skin discoloration, clubbing or cyanosis. Good capillary refill. Musculoskeletal: No joint swelling, deformity, or tenderness Peripheral pulses: Normal Back: no cva tenderness ASSESSMENT/PLAN: 1. Dark urine - ICD9: 791.9, ICD10: R82.99 (primary diagnosis) - check labs. Call if any issues. - UA DIP B/O - COMP METABOLIC PANEL - URINE CULTURE 2. Chronic obstructive pulmonary disease, unspecified COPD type (HCC) - ICD9: 496, ICD10: J44.9 - stable. 3. CLL (chronic lymphocytic leukemia) (HCC) - ICD9: 204.10, ICD10: C91.90 - recheck labs after treatment. - CBC 4. Non-Hodgkin's lymphoma, unspecified body region, unspecified non-Hodgkin lymphoma type (HCC) - ICD9: 202.80, ICD10: C85.90 - continue to follow with Dr. Pennington. 5. C. difficile colitis - ICD9: 008.45, ICD10: A04.72 - finish antibiotics. - Red flags for re-assessment reviewed with patient in detail. - discussed avoiding antibiotics unless necessary. Consider things like probiotics if needs to be on them. Jey Tse MD . C DIFFICILE PCR Collected: 09/20/2017 Status: F Source: [place] 7:[address] [facility] REPOSITORY TYPE CODE TESTS RESULT OUT OF RANGE REFERENCE UNITS LAB CDFRES C Abnormal difficile PCR Positive for Alert C. difficile toxin by PCR Result Comment: . A positive PCR result may indicate C. difficile infection or colonization. The positive predictive value of this test for C. difficile infection is highest for patients with clinically significant diarrhea (>=3 unformed stools in 24 h) who do not have an alternative explanation (e.g., recent receipt of laxatives). Toxin EIA testing will also be performed as recommended by IDSA clinical practice guidelines for institutions without preagreed criteria for specimen submission. Performed By: #### CDPCR #### [facility] [address] [place] [address] C. DIFF TOXIN BY Collected: 09/20/2017 Status: F Source: [place] EIA LAB 7:[address] [facility] ORDER ONLY REPOSITORY TYPE CODE TESTS RESULT OUT OF REFERENCE UNITS RANGE LAB CDEIAT C. difficile toxin not detected C.diff by EIA. Toxin EIA Toxin EIA is less sensitive than cell cytotoxin and PCR assays. Clinical correlation of PCR positive/toxin EIA negative results is required to distinguish C. difficile colonization from disease. Performed By: #### CDEIA #### [facility] [employer] [address] [place] [address] Observed: 09/20/2017 Status: F Source: [place] OVA AND PARASITE SCR 7:[address] [facility] REPOSITORY Sp. Request/Comment: - Specimen received in Ova and Parasite Kit. Culture Result - Negative for Giardia lamblia and Cryptosporidium species by EIA. Performed By: #### OVAPSC #### [facility] [address] [place], [place] [address] ENTERIC BACT PNL PCR Collected: 09/20/2017 Status: F Source: [place] 7:[address] [facility] REPOSITORY TYPE CODE TESTS RESULT OUT OF REFERENCE UNITS RANGE LAB PCRSHG Shigella/EIEC Not Detected DNA LAB PCRCMP Campy jejun/coli DNA Not Detected LAB PCRSTX Shiga toxin gene(s) Not Detected LAB PCRSAL Salmonella spp. Not Detected DNA Performed By: #### STLPCR #### [facility] [employer] [address] [place], [place] [address] BASIC METABOLIC PANL Collected: 09/16/2017 Status: F Source: [place] 12:[address] [facility] REPOSITORY TYPE CODE TESTS RESULT OUT OF REFERENCE UNITS RANGE LAB GLU 74-99 mg/dL Glucose 89 Result Comment: The [place] Diabetes [employer] (ADA) provides guidance for cutoff values for fasting glucose and random glucose. The ADA defines fasting as no caloric intake for at least 8 hours. Fas ting plasma glucose results between 100 to 125 mg/dL indicate increased risk for diabetes (prediabetes). Fasting plasma glucose results greater than or equal to 126 mg/dL meet the criteria for diagnosis of diabetes. In the absence of unequivocal hyperglycemia, results should be confirmed by repeat testing. In a patient with classic symptoms of hyperglycemia or hyperglycemic crisis, random plasma glucose results greater than or equal to 200 mg/dL meet the criteria for diagnosis of diabetes. Reference: Standards of Medical Care in Diabetes 2016, [place] [employer] Association. Diabetes Care. 2016.39(Suppl 1). LAB BUN 7-21 mg/dL BUN 16 LAB CRET 0.58-0.96 mg/dL Creatinine 0.59 LAB NA 136-144 mmol/L Sodium High 147 LAB K 3.7-5.1 mmol/L Potassium 4.0 LAB CL 97-105 mmol/L Chloride High 108 LAB CO2 22-30 mmol/L CO2 22 LAB AGAP 9-18 mmol/L Anion Gap 17 LAB CA 8.5-10.2 mg/dL Calcium, Total 9.6 LAB GFRAA eGFR- Amer. >60 LAB GFRNAA . eGFR-All Other Races >60 Result Comment: eGFR (Estimated GFR) Units of measure: mL/min/1.73 meters squared eGFR is derived from the reexpressed MDRD Study equation using the following parameters: serum creatinine, age, gender and race. The creatinine assay has been calibrated to be traceable to [place]. An eGFR <60 mL/min/1.73m2 for >3 months is consistent with chronic kidney disease. Refer to KDOQI guidelines for clinical interpretation. In patients with unstable renal function, e.g. those with acute kidney injury, the eGFR may not accurately reflect actual GFR. Performed By: #### BMP, HBA1C, CBCDIF #### [facility] [employer] [address] [place], [place] [address] HEMOGLOBIN A1C Collected: 09/16/2017 Status: F Source: [place] 12:13 [facility] REPOSITORY TYPE CODE TESTS RESULT OUT OF REFERENCE UNITS RANGE LAB HGBA1C 4.3-5.6 % Hemoglobin A1c 5.5 LAB HBA0 mg/dL Est. Average Glucose 111 Result Comment: eAG: (Estimated average glucose) is a calculated value from HgbA1c and is provider relations representative of the average blood glucose level in the last 2-3 month period. Performed By: #### BMP, HBA1C, CBCDIF #### [facility] [employer] [address] [place], [place] [address] CBC AND DIFFERENTIAL Collected: 09/16/2017 Status: F Source: [place] 12:[address] [facility] REPOSITORY TYPE CODE TESTS RESULT OUT OF REFERENCE UNITS RANGE LAB WBC 3.70-11.00 k/uL WBC High 17.98 LAB RBC 3.90-5.20 m/uL RBC 5.00 LAB HGB 11.5-15.5 g/dL Hemoglobin 15.4 LAB HCT 36.0-46.0 % Hematocrit High 49.4 LAB MCV 80.0-100.0 fL MCV 98.8 LAB MCH 26.0-34.0 pG MCH 30.8 LAB MCHC 30.5-36.0 g/dL MCHC 31.2 LAB RDWCV 11.5-15.0 % RDW-CV 15.0 LAB PLTCT 150-400 k/uL Platelet Count 152 LAB MPV 9.0-12.7 fL MPV High 12.8 LAB ANEUT % Neut% 57.8 LAB AANEUT 1.45-7.50 k/uL Abs Neut High 10.39 LAB ALYMP % Lymph% 38.7 LAB AALYMP 1.00-4.00 k/uL Abs Lymph High 6.96 LAB AMONO % [place]% 2.8 LAB AAMONO <0.87 k/uL Abs [place] 0.50 LAB AEOS % Eosin% 0.7 LAB AAEOS <0.46 k/uL Abs Eosin 0.13 LAB ABASO % Baso% 0.0 LAB AABASO <0.11 k/uL Abs Baso 0.00 LAB ANIIMI Anisocytosis Present LAB OVAIMI Ovalocytes Few LAB POLIMI Polychromasia Slight LAB PLTEST Platelet Estimate Platelet estimate adequate LAB DTYP DTYPE Manual Diff Performed By: #### BMP, HBA1C, CBCDIF #### [facility] [address] [place] [id number] PROGRESS Observed: 09/16/2017 Status: COMPLETED Source: [place] 11:[address] [facility] REPOSITORY HNO ID: [id number] Author: Jey Tse Service: (none) Author Type: Physician Type: Progress Notes Filed: 09/16/2017 12:28 PM Note Text: Patient presents with: 6 Month Exam Diarrhea HPI: Patient presents today for office visit for follow up Nursing Notes: An Leach Ma 09/16/2017 11:30 AM Signed DIARRHEA: Pt is still with diarrhea. She has no more vomiting or nausea. Dizziness has resolved. Eating rice and taking probiotic. Having 2-3 bouts of diarrhea with every meals. Yesterday was about 2 times during the day. Reviewed recent office visits and ER visit. Had wbc of 24,000. Was to follow up with Dr. Pennington. Her glucose was up as well. No further vomiting or nausea. No bloody or black stools. No abd pain. Having some cramping. Still having diarrhea at least three or four times a day. PULM:recently was on augmentin and prednisone for copd exacerbation. Following with pulmonary. Just finished augmentin Osteoporosis: MEDICATIONS: Current Outpatient Prescriptions: meclizine (ANTIVERT) 25 mg tab Take 25 mg by mouth three times daily. predniSONE (DELTASONE) 10 mg tablet 4 tabs daily for 3 days, 3 tabs daily for 3 days, 2 tabs daily for 3 days, 1 tabs daily for 3 days. benzonatate (TESSALON PERLE) 100 mg capsule Take 1 capsule by mouth three times daily as needed for Cough. albuterol HFA (PROVENTIL HFA, VENTOLIN HFA) 90 mcg/actuation inhaler Inhale 2 Puffs as instructed four times daily as needed. FOR WHEEZING AND SHORTNESS OF BREATH. tiotropium (SPIRIVA WITH HANDIHALER) 18 mcg inhalation capsule INHALE THE CONTENTS OF ONE CAPSULE ONCE DAILY budesonide-formoterol (SYMBICORT) 160-4.5 mcg/actuation inhaler Inhale 2 Puffs as instructed twice daily. fluticasone (FLONASE) 50 mcg/actuation nasal spray Use 1 [facility] in each nostril once daily. alendronate (FOSAMAX) 70 mg tablet Take 1 tablet by mouth once each week. Take with a full glass of water, on an empty stomach; do NOT lie down for 30minutes. Cholecalciferol, Vitamin D3, (VITAMIN D-3) 2,000 unit cap Take 1 capsule by mouth once daily. CALCIUM ORAL Take 1 tablet by mouth once daily. MAGNESIUM ORAL Take 1 tablet by mouth once daily. No current facility-administered medications for this visit. ALLERGIES: ALLERGIES Allergen Reactions - Codeine GI Upset, Vomiting - Shellfish Containin* Swelling, Anaphylaxis, Shortness of Breath - Bacitracin Itching - Latex Rash PAST MEDICAL HISTORY Diagnosis Date - Breast cancer (HCC) Left mastectomy. Right mastectomy. Bilateral reconstructions. No chemo/XRT. - Cervical cancer (HCC) Remote. SOHEILA/BSO. No chemo or XRT. - COPD (chronic obstructive pulmonary disease) (HCC) - Mitral valve regurgitation - Non Hodgkin's lymphoma (HCC) About 14 years ago. No XRT, chemotherapy. Watchful waiting. - Osteoporosis PAST SURGICAL HISTORY Procedure Laterality Date - BREAST RECONSTRUCTION - CATARACT EXTRACTION HX Bilateral 2011 - CATARACT SURGERY, COMPLEX - COLONOSCOPY W/BX 10/12/2016 - [facility] DIAG AND/OR THERAP, NOT OB - EGD - EGD W/O [facility] SPECIMEN W/BX 10/12/2016 - HEMORRHOIDECTOMY - MASTECTOMY HX Bilateral 1982 - PAST SURGICAL HISTORY OF Bronchial artery embolization, left lung - PAST SURGICAL HISTORY OF 2002 Lymph node removal on left arm - SLING OPER STRES INCONTINENCE - TOT ABDOMINL HYSTERECTOMY 1984 FAMILY HISTORY Problem Relation Age of Onset - Alzheimer's Disease Mother in her 80s. - Aneurysm Father AAA at age 61. - Chronic bronchitis. [OTHER] Father Social History Marital status: Spouse name: Years of education: Number of children: Social History Main Topics Smoking status: Former Smoker Packs/day: 1.00 Years: 30.00 Types: Cigarettes Quit date: 02/22/1999 Smokeless tobacco: Never Used Comment: Father smoked in childhood home. Alcohol use: Yes 6.0 oz/week Glasses of Wine (5oz): 4 per week Comment: With dinner. Drug use: No Reviewed current medications, allergies, past medical history, surgical history, family history and social history today. REVIEW OF SYSTEMS All other reviewed and negative other than HPI. VITALS: BP 122/60 Pulse 72 Temp 36.1 ?C (97 ?F) (Tympanic) Resp 12 Wt 47.6 kg (105 lb) BMI 20.51 kg/m? Last 4 Encounter Wt Readings: Date: Wt: 09/16/2017 47.6 kg (105 lb) 09/07/2017 48.1 kg (106 lb) 09/02/2017 48.1 kg (106 lb) 09/02/2017 48.1 kg (106 lb) PHYSICAL EXAMINATION: General appearance: Well appearing, alert, in no acute distress, well-hydrated, well nourished. Skin: Skin color, texture, turgor normal, no suspicious rashes or lesions Head: Normocephalic, no masses, lesions, tenderness or abnormalities Oropharynx: Lips, mucosa, and tongue normal, teeth and gums normal, oropharynx normal Neck: Supple, no adenopathy; thyroid symmetric, normal size, no bruits Lungs: Lungs clear to auscultation. No wheezing, rhonchi, rales Heart: RRR without murmur, gallop, or rubs. No ectopy Abdomen: Normal abdominal exam, Abdomen soft, non-tender. Bowel sounds normal. No masses, organomegaly Extremities: No deformities, edema, skin discoloration, clubbing or cyanosis. Good capillary refill. Musculoskeletal: No joint swelling, deformity, or tenderness ASSESSMENT/PLAN: 1. Diarrhea, unspecified type - ICD9: 787.91, ICD10: R19.7 (primary diagnosis) - continue diet. Limit dairy. Call if symptoms worsen at all or if not better in one to two weeks - gi if continues. - CBC + DIFF - BASIC METABOLIC PNL - C. DIFFICILE PCR - CRYPTOSPORIDIUM AND GIARDIA ANTIGENS BY EIA - ENTERIC BACTERIAL PANEL BY PCR 2. Malignant neoplasm of central portion of left female breast, unspecified estrogen receptor status (HCC) - ICD9: 174.1, ICD10: C50.112 - stable. 3. Hyperglycemia - ICD9: 790.29, ICD10: R73.9 - HGB A1C 4. CLL (chronic lymphocytic leukemia) ([facility]) - ICD9: 204.10, ICD10: C91.90 - recheck labs. - CBC + DIFF 5. Pulmonary emphysema, unspecified emphysema type ([facility]) - ICD9: 492.8, ICD10: J43.9 - stable. Jey Tse MD RTO in six months and prn. CNOV Observed: 09/16/2017 Status: COMPLETED Source: [place] 10:[address] [facility] REPOSITORY Office Visit (FAMPWS) MADISON PENALOZA ([id number]) 1940 F Date Time Provider Department 09/16/17 10:40 AM JEY TSE FAMPWS During your visit today, we recorded the following information about you: Temperature Pulse Respiration Blood pressure 97 degrees 72/minute 12/minute 122/60 Weight 47.6 kg An Leach Ma 09/16/2017 11:30 AM Signed DIARRHEA: Pt is still with diarrhea. She has no more vomiting or nausea. Dizziness has resolved. Eating rice and taking probiotic. Having 2-3 bouts of diarrhea with every meals. Yesterday was about 2 times during the day. Jey Tse MD 09/16/2017 12:28 PM Signed Patient presents with: 6 Month Exam Diarrhea HPI: Patient presents today for office visit for follow up Nursing Notes: An Leach Ma 09/16/2017 11:30 AM Signed DIARRHEA: Pt is still with diarrhea. She has no more vomiting or nausea. Dizziness has resolved. Eating rice and taking probiotic. Having 2-3 bouts of diarrhea with every meals. Yesterday was about 2 times during the day. Reviewed recent office visits and ER visit. Had wbc of 24,000. Was to follow up with Dr. Pennington. Her glucose was up as well. No further vomiting or nausea. No bloody or black stools. No abd pain. Having some cramping. Still having diarrhea at least three or four times a day. PULM:recently was on augmentin and prednisone for copd exacerbation. Following with pulmonary. Just finished augmentin Osteoporosis: MEDICATIONS: Current Outpatient Prescriptions: meclizine (ANTIVERT) 25 mg tab Take 25 mg by mouth three times daily. predniSONE (DELTASONE) 10 mg tablet 4 tabs daily for 3 days, 3 tabs daily for 3 days, 2 tabs daily for 3 days, 1 tabs daily for 3 days. benzonatate (TESSALON PERLE) 100 mg capsule Take 1 capsule by mouth three times daily as needed for Cough. albuterol HFA (PROVENTIL HFA, VENTOLIN HFA) 90 mcg/actuation inhaler Inhale 2 Puffs as instructed four times daily as needed. FOR WHEEZING AND SHORTNESS OF BREATH. tiotropium (SPIRIVA WITH HANDIHALER) 18 mcg inhalation capsule INHALE THE CONTENTS OF ONE CAPSULE ONCE DAILY budesonide-formoterol (SYMBICORT) 160-4.5 mcg/actuation inhaler Inhale 2 Puffs as instructed twice daily. fluticasone (FLONASE) 50 mcg/actuation nasal spray Use 1 [place] in each nostril once daily. alendronate (FOSAMAX) 70 mg tablet Take 1 tablet by mouth once each week. Take with a full glass of water, on an empty stomach; do NOT lie down for 30minutes. Cholecalciferol, Vitamin D3, (VITAMIN D-3) 2,000 unit cap Take 1 capsule by mouth once daily. CALCIUM ORAL Take 1 tablet by mouth once daily. MAGNESIUM ORAL Take 1 tablet by mouth once daily. No current facility-administered medications for this visit. ALLERGIES: ALLERGIES Allergen Reactions - Codeine GI Upset, Vomiting - Shellfish Containin* Swelling, Anaphylaxis, Shortness of Breath - Bacitracin Itching - Latex Rash PAST MEDICAL HISTORY Diagnosis Date - Breast cancer (HCC) Left mastectomy. Right mastectomy. Bilateral reconstructions. No chemo/XRT. - Cervical cancer (HCC) Remote. SOHEILA/BSO. No chemo or XRT. - COPD (chronic obstructive pulmonary disease) (HCC) - Mitral valve regurgitation - Non Hodgkin's lymphoma (HCC) About 14 years ago. No XRT, chemotherapy. Watchful waiting. - Osteoporosis PAST SURGICAL HISTORY Procedure Laterality Date - BREAST RECONSTRUCTION - CATARACT EXTRACTION HX Bilateral 2011 - CATARACT SURGERY, COMPLEX - COLONOSCOPY W/BX 10/12/2016 - DANDC DIAG AND/OR THERAP, NOT OB - EGD - EGD W/O BRSH SPECIMEN W/BX 10/12/2016 - HEMORRHOIDECTOMY - MASTECTOMY HX Bilateral 1982 - PAST SURGICAL HISTORY OF Bronchial artery embolization, left lung - PAST SURGICAL HISTORY OF 2002 Lymph node removal on left arm - SLING OPER STRES INCONTINENCE - TOT ABDOMINL HYSTERECTOMY 1984 FAMILY HISTORY Problem Relation Age of Onset - Alzheimer's Disease Mother in her 80s. - Aneurysm Father AAA at age 61. - Chronic bronchitis. [OTHER] Father Social History Marital status: Spouse name: Years of education: Number of children: Social History Main Topics Smoking status: Former Smoker Packs/day: 1.00 Years: 30.00 Types: Cigarettes Quit date: 02/22/1999 Smokeless tobacco: Never Used Comment: Father smoked in childhood home. Alcohol use: Yes 6.0 oz/week Glasses of Wine (5oz): 4 per week Comment: With dinner. Drug use: No Reviewed current medications, allergies, past medical history, surgical history, family history and social history today. REVIEW OF SYSTEMS All other reviewed and negative other than HPI. VITALS: BP 122/60 Pulse 72 Temp 36.1 ?C (97 ?F) (Tympanic) Resp 12 Wt 47.6 kg (105 lb) BMI 20.51 kg/m? Last 4 Encounter Wt Readings: Date: Wt: 09/16/2017 47.6 kg (105 lb) 09/07/2017 48.1 kg (106 lb) 09/02/2017 48.1 kg (106 lb) 09/02/2017 48.1 kg (106 lb) PHYSICAL EXAMINATION: General appearance: Well appearing, alert, in no acute distress, well-hydrated, well nourished. Skin: Skin color, texture, turgor normal, no suspicious rashes or lesions Head: Normocephalic, no masses, lesions, tenderness or abnormalities Oropharynx: Lips, mucosa, and tongue normal, teeth and gums normal, oropharynx normal Neck: Supple, no adenopathy; thyroid symmetric, normal size, no bruits Lungs: Lungs clear to auscultation. No wheezing, rhonchi, rales Heart: RRR without murmur, gallop, or rubs. No ectopy Abdomen: Normal abdominal exam, Abdomen soft, non-tender. Bowel sounds normal. No masses, organomegaly Extremities: No deformities, edema, skin discoloration, clubbing or cyanosis. Good capillary refill. Musculoskeletal: No joint swelling, deformity, or tenderness ASSESSMENT/PLAN: 1. Diarrhea, unspecified type - ICD9: 787.91, ICD10: R19.7 (primary diagnosis) - continue diet. Limit dairy. Call if symptoms worsen at all or if not better in one to two weeks - gi if continues. - CBC + DIFF - BASIC METABOLIC PNL - C. DIFFICILE PCR - CRYPTOSPORIDIUM AND GIARDIA ANTIGENS BY EIA - ENTERIC BACTERIAL PANEL BY PCR 2. Malignant neoplasm of central portion of left female breast, unspecified estrogen receptor status (HCC) - ICD9: 174.1, ICD10: C50.112 - stable. 3. Hyperglycemia - ICD9: 790.29, ICD10: R73.9 - HGB A1C 4. CLL (chronic lymphocytic leukemia) (HCC) - ICD9: 204.10, ICD10: C91.90 - recheck labs. - CBC + DIFF 5. Pulmonary emphysema, unspecified emphysema type (HCC) - ICD9: 492.8, ICD10: J43.9 - stable. Jey Tse MD RTO in six months and prn. Referring Provider: JEY TSE [[id number]] Allergies As of Date: 09/16/2017 Noted Allergy Reaction CODEINE 03/03/2016 8 - GI Upset 11 - Vomiting SHELLFISH CONTAINING PRODUCTS 03/03/2016 7 - Swelling 10 - Anaphylaxis 12 - Shortness of Breath BACITRACIN 03/03/2016 9 - Itching LATEX 03/03/2016 2 - Rash Date Reviewed: 09/16/2017 Reviewed by: An Leach Ma - Fully Assessed Reason for Visit: 6 Month Exam [189] Diarrhea [35] Primary Visit Diagnosis:Diarrhea, unspecified type [R19.7] Other Visit Diagnoses:Malignant neoplasm of central portion of left female breast, unspecified estrogen receptor status (HCC) [C50.112] Hyperglycemia [R73.9] CLL (chronic lymphocytic leukemia) (HCC) [C91.90] Pulmonary emphysema, unspecified emphysema type (HCC) [J43.9] Order(s):CBC + DIFF [SQCBCDIF] Order #: [id number] FUTURE BASIC METABOLIC PNL [SQBMP] Order #: [id number] FUTURE HGB A1C [ATSVW1T] Order #: [id number] FUTURE C. DIFFICILE PCR [SQCDPCR] Order #: [id number] CRYPTOSPORIDIUM AND GIARDIA ANTIGENS BY EIA [SQOVAPSC] Order #: [id number] ENTERIC BACTERIAL PANEL BY PCR [SQSTLPCR] Order #: [id number] FUTURE Prescriptions as of 09/16/2017 Sig: MECLIZINE 25 MG TABLET Take 25 mg by mouth three gabriella* PREDNISONE 10 MG TABLET 4 tabs daily for 3 days, 3 ta* BENZONATATE 100 MG CAPSULE Take 1 capsule by mouth three* ALBUTEROL SULFATE HFA 90 MCG/* Inhale 2 Puffs as instructed * TIOTROPIUM BROMIDE 18 MCG CAP* INHALE THE CONTENTS OF ONE CA* BUDESONIDE-FORMOTEROL HFA 160* Inhale 2 Puffs as instructed * FLUTICASONE 50 MCG/ACTUATION * Use 1 Providence in each nostril o* ALENDRONATE 70 MG TABLET Take 1 tablet by mouth once e* CHOLECALCIFEROL (VITAMIN D3) * Take 1 capsule by mouth once * CALCIUM ORAL Take 1 tablet by mouth once d* MAGNESIUM ORAL Take 1 tablet by mouth once d* Problem List As Of Date 09/16/2017 Noted Resolved CLL (chronic lymphocytic leukemia) (HCC) [C91.9*INVALID FOR* Epigastric pain [R10.13] INVALID FOR* Emphysema of lung (HCC) [J43.9] INVALID FOR* Breast cancer (HCC) [C50.919] More... Mitral valve regurgitation [I34.0] More... Osteoporosis [M81.0] Non Hodgkin's lymphoma (HCC) [C85.90] More... COPD (chronic obstructive pulmonary disease) (H* Mixed hyperlipidemia [E78.2] INVALID FOR* History of breast cancer in female [Z85.3] INVALID FOR* Visit Notes: >> An Leach Ma [facility] Sep 16, 2017 11:26 AM Status: Signed DIARRHEA: Pt is still with diarrhea. She has no more vomiting or nausea. Dizziness has resolved. Eating rice and taking probiotic. Having 2-3 bouts of diarrhea with every meals. Yesterday was about 2 times during the day. Medications Discontinued During This Encounter ondansetron (ZOFRAN) 4 mg tablet 09/16/2017 Class: Historical Med Route: ORAL Sig: Take 4 mg by mouth every 8 hours as needed. Disc: Course of therapy completed Zinc 50 mg tab 09/16/2017 Class: Historical Med Route: ORAL Sig: Take by mouth. Disc: Course of therapy completed Disposition: Return in about 6 months (around 03/19/2018). Follow-up and Disposition History Recorded Encounter Status:Closed by JEY TSE MD on 09/16/17 PROGRESS Observed: 09/08/2017 Status: COMPLETED Source: [place] 9:[address] [facility] REPOSITORY O ID: [id number] Author: Elenita Ardon Service: (none) Author Type: Nurse Practitioner Type: Progress Notes Filed: 09/08/2017 10:04 AM Note Text: 09/08/2017 Patient presents with: ED Follow-up: vomiting/dizziness SUBJECTIVE: This is a 77 year old that is here today for ER follow up. She was seen in [facility] ER 09/02 for dizziness and vomiting. [facility] and augmentin for a persistent cough. She states that it started with room spinning, then she had an episode of emesis. EKG showed SR 60 CBC showed elevated WBC 24.0. CT brain showed chronic changes. Normal CXR. She was medicated with zofran and antivert that improved her symptoms, so she was discharged with scripts for these and told to follow up with Dr. Pennington as planned about the WBCs. She was diagnosed with vertigo. She states that they did a procedure on her that sounds like the Sariah maneuver. Her symptoms of room spinning and vomiting have improved, but she has had diarrhea since she was seen. She has 3 days of the prednisone and augmentin left. She feels that her cough is improving. Diarrhea is not watery, but mushy. No blood, foul odor, or mucous. No fever or chills. She is feeling more fatigued than normal. Admits that she is not eating a lot for fear of more diarrhea. She has not had any today and this is the first time in 4 days that she has not had some yet at this point in the day. It was small amounts several times a day. She is drinking extra water and ensure with her medication. Has attempted some bland foods. PAST MEDICAL HISTORY Diagnosis Date - Breast cancer (HCC) Left mastectomy. Right mastectomy. Bilateral reconstructions. No chemo/XRT. - Cervical cancer (HCC) Remote. SOHEILA/BSO. No chemo or XRT. - COPD (chronic obstructive pulmonary disease) (HCC) - Mitral valve regurgitation - Non Hodgkin's lymphoma (HCC) About 14 years ago. No XRT, chemotherapy. Watchful waiting. - Osteoporosis ALLERGIES Codeine; Shellfish Containing Products; Bacitracin; Latex MEDICATIONS Current Outpatient Prescriptions: ondansetron (ZOFRAN) 4 mg tablet Take 4 mg by mouth every 8 hours as needed. meclizine (ANTIVERT) 25 mg tab Take 25 mg by mouth three times daily. predniSONE (DELTASONE) 10 mg tablet 4 tabs daily for 3 days, 3 tabs daily for 3 days, 2 tabs daily for 3 days, 1 tabs daily for 3 days. amoxicillin-clavulanic acid (AUGMENTIN) 875-125 mg per tablet Take 1 tablet by mouth twice daily for 7 days. benzonatate (TESSALON PERLE) 100 mg capsule Take 1 capsule by mouth three times daily as needed for Cough. albuterol HFA (PROVENTIL HFA, VENTOLIN HFA) 90 mcg/actuation inhaler Inhale 2 Puffs as instructed four times daily as needed. FOR WHEEZING AND SHORTNESS OF BREATH. tiotropium (SPIRIVA WITH HANDIHALER) 18 mcg inhalation capsule INHALE THE CONTENTS OF ONE CAPSULE ONCE DAILY budesonide-formoterol (SYMBICORT) 160-4.5 mcg/actuation inhaler Inhale 2 Puffs as instructed twice daily. fluticasone (FLONASE) 50 mcg/actuation nasal spray Use 1 Providence in each nostril once daily. alendronate (FOSAMAX) 70 mg tablet Take 1 tablet by mouth once each week. Take with a full glass of water, on an empty stomach; do NOT lie down for 30minutes. Cholecalciferol, Vitamin D3, (VITAMIN D-3) 2,000 unit cap Take 1 capsule by mouth once daily. CALCIUM ORAL Take 1 tablet by mouth once daily. Zinc 50 mg tab Take by mouth. MAGNESIUM ORAL Take 1 tablet by mouth once daily. No current facility-administered medications for this visit. Medications and allergies reviewed by this provider. SOCIAL HISTORY Social History Marital status: Spouse name: Years of education: Number of children: Social History Main Topics Smoking status: Former Smoker Packs/day: 1.00 Years: 30.00 Types: Cigarettes Quit date: 02/22/1999 Smokeless tobacco: Never Used Comment: Father smoked in childhood home. Alcohol use: Yes 6.0 oz/week Glasses of Wine (5oz): 4 per week Comment: With dinner. Drug use: No REVIEW OF SYSTEMS GENERAL: No weight loss, malaise or fevers RESPIRATORY: Negative for cough, hemoptysis, wheezing, dyspnea or shortness of breath, See HPI CARDIOVASCULAR: Negative for chest pain, leg swelling, hypertension, CHF or palpitations GI: See HPI SKIN: Negative for lesions, rash, and itching NEURO: No history of headaches, syncope, paralysis, seizures or tremors and See HPI OBJECTIVE: BP 126/74 (BP Site: Left Arm, BP Position: Sitting, BP Cuff Size: Regular Adult) Pulse 66 Temp 36.3 ?C (97.4 ?F) (Left Tympanic) Resp 12 Wt 48.1 kg (106 lb) BMI 20.70 kg/m? . Vital signs reviewed by this provider. PHYSICAL EXAMINATION: General appearance: Well appearing, alert, in no acute distress, well-hydrated, well nourished. Skin: Skin color, texture, turgor normal, no suspicious rashes or lesions Eyes: Anicteric sclera. Pupils are equally round and reactive to light. Extraocular movements are intact. Ears: External ears normal, canals clear, TMs normal Neck: Supple, no adenopathy; thyroid symmetric, normal size, no bruits Lungs: Lungs clear to auscultation. No wheezing, rhonchi, rales Heart: RRR without murmur, gallop, or rubs. No ectopy Abdomen: Normal abdominal exam, Abdomen soft, non-tender. Bowel sounds normal. No masses, organomegaly Extremities: No deformities, edema, skin discoloration, clubbing or cyanosis. Good capillary refill. , Pulses: 2+ Neuro: Gait normal. Sensation grossly intact., Negative findings: speech normal, mental status intact, muscle tone normal, muscle strength normal ASSESSMENT/PLAN: 1. Follow up - ICD9: V67.9, ICD10: Z09 (primary diagnosis) - discussed that based on symptoms, it sounds like she likely had an episode of vertigo, but she may also be having a GI reaction to the antibiotic with the loose stools. Encouraged increased fluids, diet as tolerated with protein. 2. Vertigo - ICD9: 780.4, ICD10: R42 - Antivert as needed - offered refill because they will be going on a trip to [place], but she feels that she has enough if she needs it. - Discussed Sariah can be done on her own at home - Discussed if she continues to have these symptoms, PT may be beneficial as well - Follow up with PCP as planned 3. Diarrhea, unspecified type - ICD9: 787.91, ICD10: R19.7 - likely related to the antibiotic use - Encouraged probiotic. She states that she would prefer Activia yogurt - encouraged diet as tolerated and adequate fluids - follow up as planned with PCP. If symptoms persist or worsen may need stool studies. 4. Nausea and vomiting, intractability of vomiting not specified, unspecified vomiting type - ICD9: 787.01, ICD10: R11.2 - resolved - follow up if symptoms return Elenita Ardon APRN.TYPE PHOTOGRAPHY SUPERVISOR 12 LEAD ELECTROCARDIOGRAM Observed: 09/07/2017 Status: F Source: [place] 2:13 PM [facility] REPOSITORY [facility] Cardiovascular Services [address] [place] [id number] Lead EKG 09/02/17 1743 MR#: [id number] Acct: [id number] Name: MADISON PENALOZA Rep #: [id number] : 1940 77 From: Juventino Padilla MD Attending Dr: Status: DEP ER Ordering Dr: Caro Palacios DO Date: 09/02/17 Location: ED Sex: F C Admitted: Test Reason : N/V Blood Pressure : / mmHG Vent. Rate : 068 BPM Atrial Rate : 068 BPM P-R Int : 130 ms QRS Dur : 086 ms QT Int : 400 ms P-R-T Axes : 079 065 069 degrees QTc Int : 425 ms Normal sinus rhythm Nonspecific ST abnormality Abnormal ECG Confirmed by JUVENTINO PADILLA MD ([id number]), editor news DIANELYS GREENBERG ([id number]) on 09/07/2017 2:13:03 PM Referred By: ESTHELA Confirmed By:JUVENTINO PADILLA MD 09/07/17 1413 Date Juventino Padilla MD CC: Caro Tse MD Signed CNOV Observed: 09/07/2017 Status: COMPLETED Source: [place] 9:[address] [facility] REPOSITORY Office Visit (FAMPWS) MADISON PENALOZA ([id number]) 1940 F Date Time Provider Department 09/07/17 9:40 AM ELENITA ARDON [facility] During your visit today, we recorded the following information about you: Temperature Pulse Respiration Blood pressure 97.4 degrees 66/minute 12/minute 126/74 Weight 48.1 kg Elenita Ardon APRN.CNP 09/07/2017 10:33 AM Signed Sariah Maneuver Elenita Ardon APRN.CNP 09/08/2017 10:04 AM Signed 09/08/2017 Patient presents with: ED Follow-up: vomiting/dizziness SUBJECTIVE: This is a 77 year old that is here today for ER follow up. She was seen in [facility] ER 09/02 for dizziness and vomiting. She described [facility] she [facility] pred[facility]one and augmentin for a persistent cough. She states that it started with room spinning, then she had an episode of emesis. EKG showed SR 60 CBC showed elevated WBC 24.0. CT brain showed chronic changes. Normal CXR. She was medicated with zofran and antivert that improved her symptoms, so she was discharged with scripts for these and told to follow up with Dr. Pennington as planned about the WBCs. She was diagnosed with vertigo. She states that they did a procedure on her that sounds like the Sariah maneuver. Her symptoms of room spinning and vomiting have improved, but she has had diarrhea since she was seen. She has 3 days of the prednisone and augmentin left. She feels that her cough is improving. Diarrhea is not watery, but mushy. No blood, foul odor, or mucous. No fever or chills. She is feeling more fatigued than normal. Admits that she is not eating a lot for fear of more diarrhea. She has not had any today and this is the first time in 4 days that she has not had some yet at this point in the day. It was small amounts several times a day. She is drinking extra water and ensure with her medication. Has attempted some bland foods. PAST MEDICAL HISTORY Diagnosis Date - Breast cancer (HCC) Left mastectomy. Right mastectomy. Bilateral reconstructions. No chemo/XRT. - Cervical cancer (HCC) Remote. SOHEILA/BSO. No chemo or XRT. - COPD (chronic obstructive pulmonary disease) (HCC) - Mitral valve regurgitation - Non Hodgkin's lymphoma (HCC) About 14 years ago. No XRT, chemotherapy. Watchful waiting. - Osteoporosis ALLERGIES Codeine; Shellfish Containing Products; Bacitracin; Latex MEDICATIONS Current Outpatient Prescriptions: ondansetron (ZOFRAN) 4 mg tablet Take 4 mg by mouth every 8 hours as needed. meclizine (ANTIVERT) 25 mg tab Take 25 mg by mouth three times daily. predniSONE (DELTASONE) 10 mg tablet 4 tabs daily for 3 days, 3 tabs daily for 3 days, 2 tabs daily for 3 days, 1 tabs daily for 3 days. amoxicillin-clavulanic acid (AUGMENTIN) 875-125 mg per tablet Take 1 tablet by mouth twice daily for 7 days. benzonatate (TESSALON PERLE) 100 mg capsule Take 1 capsule by mouth three times daily as needed for Cough. albuterol HFA (PROVENTIL HFA, VENTOLIN HFA) 90 mcg/actuation inhaler Inhale 2 Puffs as instructed four times daily as needed. FOR WHEEZING AND SHORTNESS OF BREATH. tiotropium (SPIRIVA WITH HANDIHALER) 18 mcg inhalation capsule INHALE THE CONTENTS OF ONE CAPSULE ONCE DAILY budesonide-formoterol (SYMBICORT) 160-4.5 mcg/actuation inhaler Inhale 2 Puffs as instructed twice daily. fluticasone (FLONASE) 50 mcg/actuation nasal spray Use 1 Providence in each nostril once daily. alendronate (FOSAMAX) 70 mg tablet Take 1 tablet by mouth once each week. Take with a full glass of water, on an empty stomach; do NOT lie down for 30minutes. Cholecalciferol, Vitamin D3, (VITAMIN D-3) 2,000 unit cap Take 1 capsule by mouth once daily. CALCIUM ORAL Take 1 tablet by mouth once daily. Zinc 50 mg tab Take by mouth. MAGNESIUM ORAL Take 1 tablet by mouth once daily. No current facility-administered medications for this visit. Medications and allergies reviewed by this provider. SOCIAL HISTORY Social History Marital status: Spouse name: Years of education: Number of children: Social History Main Topics Smoking status: Former Smoker Packs/day: 1.00 Years: 30.00 Types: Cigarettes Quit date: 02/22/1999 Smokeless tobacco: Never Used Comment: Father smoked in childhood home. Alcohol use: Yes 6.0 oz/week Glasses of Wine (5oz): 4 per week Comment: With dinner. Drug use: No REVIEW OF SYSTEMS GENERAL: No weight loss, malaise or fevers RESPIRATORY: Negative for cough, hemoptysis, wheezing, dyspnea or shortness of breath, See HPI CARDIOVASCULAR: Negative for chest pain, leg swelling, hypertension, CHF or palpitations GI: See HPI SKIN: Negative for lesions, rash, and itching NEURO: No history of headaches, syncope, paralysis, seizures or tremors and See HPI OBJECTIVE: BP 126/74 (BP Site: Left Arm, BP Position: Sitting, BP Cuff Size: Regular Adult) Pulse 66 Temp 36.3 ?C (97.4 ?F) (Left Tympanic) Resp 12 Wt 48.1 kg (106 lb) BMI 20.70 kg/m? . Vital signs reviewed by this provider. PHYSICAL EXAMINATION: General appearance: Well appearing, alert, in no acute distress, well-hydrated, well nourished. Skin: Skin color, texture, turgor normal, no suspicious rashes or lesions Eyes: Anicteric sclera. Pupils are equally round and reactive to light. Extraocular movements are intact. Ears: External ears normal, canals clear, TMs normal Neck: Supple, no adenopathy; thyroid symmetric, normal size, no bruits Lungs: Lungs clear to auscultation. No wheezing, rhonchi, rales Heart: RRR without murmur, gallop, or rubs. No ectopy Abdomen: Normal abdominal exam, Abdomen soft, non-tender. Bowel sounds normal. No masses, organomegaly Extremities: No deformities, edema, skin discoloration, clubbing or cyanosis. Good capillary refill. , Pulses: 2+ Neuro: Gait normal. Sensation grossly intact., Negative findings: speech normal, mental status intact, muscle tone normal, muscle strength normal ASSESSMENT/PLAN: 1. Follow up - ICD9: V67.9, ICD10: Z09 (primary diagnosis) - discussed that based on symptoms, it sounds like she likely had an episode of vertigo, but she may also be having a GI reaction to the antibiotic with the loose stools. Encouraged increased fluids, diet as tolerated with protein. 2. Vertigo - ICD9: 780.4, ICD10: R42 - Antivert as needed - offered refill because they will be going on a trip to [place], but she feels that she has enough if she needs it. - Discussed Sariah can be done on her own at home - Discussed if she continues to have these symptoms, PT may be beneficial as well - Follow up with PCP as planned 3. Diarrhea, unspecified type - ICD9: 787.91, ICD10: R19.7 - likely related to the antibiotic use - Encouraged probiotic. She states that she would prefer Activia yogurt - encouraged diet as tolerated and adequate fluids - follow up as planned with PCP. If symptoms persist or worsen may need stool studies. 4. Nausea and vomiting, intractability of vomiting not specified, unspecified vomiting type - ICD9: 787.01, ICD10: R11.2 - resolved - follow up if symptoms return Elenita Ardon APRN.TYPE PHOTOGRAPHY SUPERVISOR Referring Provider: SELF [[id number]] Allergies As of Date: 09/07/2017 Noted Allergy Reaction CODEINE 03/03/2016 8 - GI Upset 11 - Vomiting SHELLFISH CONTAINING PRODUCTS 03/03/2016 7 - Swelling 10 - Anaphylaxis 12 - Shortness of Breath BACITRACIN 03/03/2016 9 - Itching LATEX 03/03/2016 2 - Rash Date Reviewed: 09/07/2017 Reviewed by: Ronda Ferraro Arm Rest Builder - Fully Assessed Reason for Visit: ED Follow-up [821] Cmt: vomiting/dizziness Reason For Visit History Recorded Primary Visit Diagnosis:Follow up [Z09] Other Visit Diagnoses:Vertigo [R42] Diarrhea, unspecified type [R19.7] Nausea and vomiting, intractability of vomiting not specified, unspecified vomiting type [R11.2] Prescriptions as of 09/07/2017 Sig: ONDANSETRON HCL 4 MG TABLET Take 4 mg by mouth every 8 ho* MECLIZINE 25 MG TABLET Take 25 mg by mouth three gabriella* PREDNISONE 10 MG TABLET 4 tabs daily for 3 days, 3 ta* AMOXICILLIN 875 MG-POTASSIUM * Take 1 tablet by mouth twice * BENZONATATE 100 MG CAPSULE Take 1 capsule by mouth three* ALBUTEROL SULFATE HFA 90 MCG/* Inhale 2 Puffs as instructed * TIOTROPIUM BROMIDE 18 MCG CAP* INHALE THE CONTENTS OF ONE CA* BUDESONIDE-FORMOTEROL HFA 160* Inhale 2 Puffs as instructed * FLUTICASONE 50 MCG/ACTUATION * Use 1 Providence in each nostril o* ALENDRONATE 70 MG TABLET Take 1 tablet by mouth once e* CHOLECALCIFEROL (VITAMIN D3) * Take 1 capsule by mouth once * CALCIUM ORAL Take 1 tablet by mouth once d* ZINC 50 MG TABLET Take by mouth. MAGNESIUM ORAL Take 1 tablet by mouth once d* Problem List As Of Date 09/07/2017 Noted Resolved CLL (chronic lymphocytic leukemia) (HCC) [C91.9*INVALID FOR* Epigastric pain [R10.13] INVALID FOR* Emphysema of lung (HCC) [J43.9] INVALID FOR* Breast cancer (HCC) [C50.919] More... Mitral valve regurgitation [I34.0] More... Osteoporosis [M81.0] Non Hodgkin's lymphoma (HCC) [C85.90] More... COPD (chronic obstructive pulmonary disease) (H* Mixed hyperlipidemia [E78.2] INVALID FOR* History of breast cancer in female [Z85.3] INVALID FOR* Other instructions from your clinician: Sariah Conde Encounter Status:Closed by ELENITA ARDON on 09/08/17 DISCHARGE INSTRUCTION Observed: 09/02/2017 Status: F [facility] [place] [facility] Medical Records Department [address] [place] [address] Discharge Instruction 09/02/172003 MR#: [id number] Acct: [id number] Name: MADISON PENALOZA Rep #: [id number] : 1940 77 From: Caro Palacios DO PCP: Jey Tse MD Status: REG ER ED Disposition - Plan for ED Patient: Chief Complaint: Nausea/Vomiting/Diarrhea Instructions: ED BPV Vertigo, ED Nausea Vomiting Prescriptions: Ondansetron [Zofran Odt] 4 mg PO Q8H PRN PRN #10 tab PRN Reason: Nausea Meclizine HCl [Antivert] 25 mg PO 4X/DAY PRN PRN #20 tab PRN Reason: Dizziness Referrals: Jey Tse MD [Primary Care Provider] - 3-5 Days What to do if you have Problems For any increased pain, shortness of breath, bleeding, nausea or vomiting, chest pain, or any unexpected problems, contact your Primary Care Provider. Call [facility] [facility] ([phone]) or report to the closest Emergency Room. Call 911 if necessary. 09/02/172004 <Electronically signed by Caro Palacios DO> Date Caro Palacios DO Cosigner Signature (If Indicated): Date CC: Jey Tse MD EMERGENCY DEPARTMENT Observed: 09/02/2017 Status: F Source: [place] SUMMARY 8:04 PM [facility] Medical Records Department [address] [place] [address] Emergency Department Summary 09/02/171958 MR#: [id number] Acct: [id number] Name: CAMADISON A Rep #: [id number] : 1940 77 From: Caro Palacios DO PCP: Jey Tse MD Status: REG ER - ER Visit Summary Date of Service: 09/02/17 Chief Complaint: [Dizziness and vomiting] History of Present Illness: The patient is a 77 F [presents to the emergency department with complaint of dizziness and vomiting that started prior to coming the emergency department. Patient states that earlier in the day she had seen the nurse practitioner for her hand plug shaper who started her on Augmentin and prednisone for cough that she has had for several weeks. Patient took her medications when she got home and [facility] While sitting at the [employer] she developed dizziness initially that she describes as spinning sensation followed by vomiting. Patient is vomited multiple times and presents for evaluation. Patient denies any pain in her head. She denies any chest pain or shortness of breath. Patient states that she has had vertiginous type symptoms in the past off and on but not this severe. Patient does have a history of non-Hodgkin's lymphoma and COPD. There is question as to whether or not her symptoms are related to the Augmentin and prednisone that she started today.] Physical Examination: [HEENT-PERRLA, EOMI. Cranial nerves II through XII grossly intact. TMs clear. Mucous membranes moist. No adenopathy. Cardiovascular-regular rate and rhythm without murmur or ectopy Lungs-clear to auscultation, chest wall stable without crepitus or subcu emphysema Abdomen-normoactive bowel sounds, soft, nontender, no rebound or rigidity, no peritoneal signs. Neuro zjcr-[id number]-uvhn and heel rahman testing within normal limits, negative Romberg, negative pronator drift, fundi benign. Hallpike maneuver performed was positive for nystagmus with head turn to the right and left. Extremities-intact 4, normal range of motion, normal pulses, atraumatic] Test Results: [EKG obtained on arrival shows sinus rhythm with a ventricular rate of 60 bpm with some nonspecific ST changes noted. CBC with differential showed an elevated white count of 24,000, hemoglobin 14.8, hematocrit 44, platelets 319. Chemistries unremarkable. Lipase was 206. Troponin is less than 0.015. CT scan of the brain without contrast showed chronic involutional changes otherwise nothing acute. Chest x-ray showed nothing acute.] Emergency Department Course and Treatment: [Patient was medicated with Zofran and Antivert and had significant improvement in her symptoms. Patient was able to ambulate to the bathroom and back without difficulty. Patient had no further vomiting. At this point I feel her elevated white blood cell count likely related to her non-Hodgkin's lymphoma in combination with reactive phenomenon due to the vomiting as well as the fact that she has started prednisone. Patient states that with her non-Hodgkin's lymphoma which she is currently being followed by Dr. Pennington he has had intermittent spikes in her white blood cell counts. I do not see any other etiology of infection.] Treatment Plan: [Patient will be discharged home with a prescription for Antivert as well as Zofran. Patient advised to return if persistent dizziness, vomiting, or condition should worsen in any way. At this point my suspicion is that patient likely has vertigo and her symptoms were not related to the prednisone and Augmentin. If patient should notice that soon after taking these medications tomorrow her symptoms return then we may need to look at discontinuing these medications.] Disposition: [Discharged home in stable condition] Impression: [Vertigo Vomiting] This note was generated with [employer]ak[employer] dictation software. It may contain incorrect words, spelling, and punctuation that were not noted in review of the chart prior to signing ED Disposition - Plan for ED Patient: Chief Complaint: Nausea/Vomiting/Diarrhea Referrals: Jey Tse MD [Primary Care Provider] - What to do if you have Problems For any increased pain, shortness of breath, bleeding, nausea or vomiting, chest pain, or any unexpected problems, contact your Primary Care Provider. Call [facility] ([phone]) or report to the closest Emergency Room. Call 911 if necessary. 09/02/172003 <Electronically signed by Caro Palacios DO> Date Caro Palacios DO Cosigner Signature (If Indicated): Date CC: Jey Tse MD CHEST PA AND LATERAL Observed: 09/02/2017 Status: F Source: [place] [facility] Imaging Services [address] [place] [address] Chest PA and Lateral MR#: [id number] Acct: [id number] Name: MADISON PENALOZA Rep #: [id number] : 1940 F 77 From: Morris Gaston DO PCP: Jey Tse MD Status: REG ER Study: Chest PA and Lateral Date of Exam: 09/02/17 Exam# [id number] Ordering Dr: Caro Palacios DO STUDY: X-RAY CHEST REASON FOR EXAM: Female, 77 years old. Cough TECHNIQUE: Frontal and lateral views COMPARISON: None. FINDINGS: The lungs are slightly hyperaerated. There is no demonstrated pleural abnormality. Mildly prominent size heart. Normal mediastinum and porfirio. There are metallic densities of the mediastinum. Normal visualized pulmonary arteries. Normal visualized aortic arch and descending thoracic aorta. Degenerative changes of the thoracic spine. Normal visualized ribs, clavicles, and shoulders. There is no demonstrated abnormality of the visualized soft tissue structures of the upper abdomen. RAD/Chest PA and Lateral IMPRESSION: Mildly prominent cardiac shadow. No acute pulmonary pathology. Electronically Signed: Morris Gaston DO at 19:02 EDT Tel [phone], Service support , CC: Caro Palacios DO; Jey Tse MD School Social Worker: Signed CBC W/DIFF, AUTOMATED Collected: 09/02/2017 Status: F Source: [place] 5:49 PM [facility] REPOSITORY TYPE CODE TESTS RESULT OUT OF RANGE REFERENCE UNITS LAB L100.1000 4.4-11.0 K/mm3 High WBC 24.0 LAB L100.1200 4.2-5.4 M/mm3 Normal RBC 4.68 LAB L100.1300 12.0-15.0 g/dl Normal HGB 14.8 LAB L100.1400 37-47 % Normal HCT 43.7 LAB L100.1500 81-99 fL Normal MCV 93.4 LAB L100.1600 27.0-32.0 pg Normal MCH 31.6 LAB L100.1700 32-36 g/gl Normal MCHC 33.9 LAB L100.1810 11.6-14.6 % Normal RDW CV 13.4 LAB L100.1820 35.1-43.9 fl High RDW SD 44.2 LAB L100.1900 150-450 K/mm3 Normal PLT 319 LAB L100.2000 6.2-12.0 fl Normal MPV 11.3 LAB L100.2100 47-70 % High NEUT% 76.9 LAB L100.2200 19-41 % Normal LY% 19.6 LAB L100.2300 0-10 % Normal MONO% 2.8 LAB L100.2400 0-5 % Normal EO% 0.1 LAB L100.2500 0-1 % Normal BASO% 0.1 LAB L100.2550 0.0-0.9 % Normal IM GRAN % 0.500 Result Comment: IG% - Immature Granulocytes (promyelocytes, myelocytes and metamyelocytes) > 1% indicates that a LEFT SHIFT is Present. LAB L100.2620 2.0-7.7 X10 3/uL High Absolute Neut 18.4 LAB L100.2720 0.83-4.51 X10 3/ul High Absolute Lymph 4.71 Performed By: #### L100.0100 #### [facility] [address] [place] [address]. [place], [place], [id number] BASIC METABOLIC Collected: 09/02/2017 Status: F Source: [place] PROFILE (BMP) 5:49 PM [facility] REPOSITORY TYPE CODE TESTS RESULT OUT OF RANGE REFERENCE UNITS LAB L501.0100 74-106 mg/dL High GLU 147 Result Comment: Fasting Glucose result greater than or equal to 126 mg/dL suggests DIABETES MELLITUS per A.D.A. criteria. Please note revised GLUCOSE reference range effective 2017. LAB L501.1000 7-18 mg/dL High BUN 20 LAB L501.1100 0.55-1.02 mg/dL Normal CREAT,SERUM 0.65 Result Comment: The validity of the calculated GFR AND GFRAA in patients over 70 years has not been determined. Clinical correlation is essential. LAB L501.1110 >60 mL/min Normal EST GFR 94 Result Comment: Non- GFR Calc LAB L501.1115 >60 mL/min Normal EST GFR - AA 114 Result Comment: GFR Calc LAB L501.1255 ml/min Normal Estimated CRCL 36.68 LAB L501.1300 10-20 RATIO High BUN/CRE 30.6 LAB L501.2200 8.5-10 mg/dL Normal .1 CA 9.2 LAB L501.5300 136-14 mmol/L Normal 5 NA 144 LAB L501.5600 3.5-5. mmol/L Normal 1 K 4.2 LAB L501.5900 98-107 mmol/L High CL 108 LAB L501.6100 21.0-3 mmol/L Normal 2.0 CO2 27.0 LAB L501.6200 5-15 Normal GAP 9 Performed By: #### L500.2500, L501.2450, L501.4010 #### [facility] [address] [facility]. [place], [place], [address] LIPASE Collected: 09/02/2017 Status: F Source: [place] 5:49 PM [facility] REPOSITORY TYPE CODE TESTS RESULT OUT OF RANGE REFERENCE UNITS LAB L501.2450 73-393 U/L Normal LIPASE 206 Performed By: #### L500.2500, L501.2450, L501.4010 #### [facility] [address] [facility] [place], [address] TROPONIN-I Collected: 09/02/2017 Status: F Source: [place] 5:49 PM [facility] REPOSITORY TYPE CODE TESTS RESULT OUT OF RANGE REFERENCE UNITS LAB L501.4010 <0.045 ng/mL Normal < 0.015 TROPONIN-I Result Comment: TROPONIN-I EXPECTED VALUES <0.045 Negative 0.045 - 0.590 Consistent with Cardiac Damage > OR = 0.600 Critical Value Not every elevated troponin is indicative of UT. These values should be used with clinical judgement in examining the patient's clinical picture for diagnosis. To establish a diagnosis of UT versus myocardial injury, there must be a demonstrated rise and/or fall in the troponin values, in addition to ischemic symptoms, EKG changes, new regional wall motion abnormality, and/or angiographical evidence. PLEASE NOTE: REFERENCE RANGES EDITED 17 Performed By: #### L500.2500, L501.2450, L501.4010 #### [facility] [address] [place], [address] BRAIN/HEAD WITHOUT Observed: 09/02/2017 Status: F Source: [place] CONTRAST 5:32 PM [facility] REPOSITORY [facility] Imaging Services [address] [place] [address] Brain/Head without Contrast MR#: [id number] Acct: [id number] Name: MADISON PENALOZA Rep #: [id number] : 1940 F 77 From: Morris Gaston DO PCP: Jey Tse MD Status: PRE ER Study: Brain/Head without Contrast Date of Exam: 09/02/17 Exam# [id number] Ordering Dr: Caro Palacios DO STUDY: CT BRAIN WITHOUT CONTRAST REASON FOR EXAM: Female, 77 years old. Headache, nausea/vomiting RADIATION DOSAGE (If Supplied By Facility): CTDIvol = ( 60.81 ) mGy, DLP = ( 998.67 ) mGycm TECHNIQUE: Transaxial CT imaging of the brain was performed without administration of intravenous contrast material. Individualized dose optimization techniques were used for this CT. COMPARISON: None. FINDINGS: Normal soft tissue structures. Normal calvarium. Slightly prominent size ventricles and extra-axial spaces with frontal atrophy. Mild white matter microangiopathic ischemic changes of the cerebral hemispheres. Normal basal ganglia and thalami. Normal brainstem. Normal cerebellum. There is no intracranial hemorrhage. There are no findings of an acute ischemic infarction. Normal visualized paranasal sinuses. CT/Brain/Head without Contrast IMPRESSION: Age-related and chronic changes of the brain. Electronically Signed: Morris Gaston DO at 18:22 EDT Tel [phone], Service support , CC: Caro Tse MD School Social Worker: Signed PROGRESS Observed: 09/02/2017 Status: COMPLETED Source: [place] 9:[address] [facility] REPOSITORY HNO ID: [id number] Author: Jess Bundy Service: (none) Author Type: Physician Waiter Type: Progress Notes Filed: 09/02/2017 9:33 AM Note Text: [facility] [place], 09/02/17: HPI: The patient is here for follow up of COPD. The last Pulmonary Clinic visit was 02/25/17. Patient was seen in PCP office 08/30/17 secondary to URI. Was not started on antibiotics at that time. Since then the patient has not required ED care for exacerbation. There has been no hospital admission for exacerbation. Claims to be consistently compliant with prescribed maintenance Rx. Cough improving. Tessalon Perles provide relief. Variable sputum, dark yellow and thick. Secretions are improving. No hemoptysis. No pleuritic chest pain. No fevers or chills at this time. No wheezing at this time. Exertional dyspnea worse with chest congestion. Walks every morning, unable to go as far as normal. PMH: Updated with patient today. FAMH: Updated with patient today. SOCH: Updated with patient today. Immunization History Administered Date(s) Administered Influenza Seasonal - High Dose - Age 65+ 12/07/2015 11/23/2016 Pneumococcal-13 Vac Conjugate 03/03/2014 ROS: General: Generally feels . Appetite good. Weight stable. Eyes, Ears, nose, throat: No post nasal drip, rhinorrhea, purulent nasal discharge, epistaxis. No hoarseness. Vision stable. Cardiac: No angina, edema, orthopnea. GI: No heartburn, dysphagia, diarrhea. Uro/GENERAL DOC: No dysuria, hesitancy, nocturia. Musculoskeletal: No pain. Neuro: No headache, focal weakness, tremor. Skin: No rash. Otherwise negative. Allergies were reviewed and updated, and medications were reconciled with the patient. PHYSICAL EXAMINATION: BP 118/60 Pulse 66 Resp 16 Ht 5' 0 (1.52m) Wt 106 lb (48.1kg) SpO2 96% BMI 20.70 kg/(m2). Gen: No acute distress. Cooperative with examination. ENT: Oral hygeine and dentition good. Pharynx clear. No halitosis. Resp: No stridor, accessory respiratory muscle use, supra- sternal or intercostal retractions. No wheezes, crackles. CV: Regular rythm. Heart tones normal. Radial pulses normal. Abd: Non distended. MSK: No kyphoscoliosis. Ext: Warm and well perfused. No clubbing, cyanosis, edema. Skin: No rash, ecchymoses. Neuro: Mental status normal. Affect normal. No tremor. DATA REVIEW: DATE: 09/02/17 06/05/16 FVC 2.15 (93 % pred) 2.12 (84 % pred) FEV1 1.03 (60 % pred) 1.12 (59 % pred) +6 % post BD FEV1/FVC 0.48 0.53 IMPRESSION/RECOMMEND: 1. Chronic obstructive pulmonary disease, emphysema and chronic bronchitis with acute exacerbation. - Start Augmentin 1 tablet daily for 7 days. Eat a yogurt daily while taking this medication. Sent to pharmacy. - Prednisone taper as directed. Sent to pharmacy. If no improvement after above treatment, please call the office or send a [employer] message and I will order a CXR. - Continue Symbicort 160/4.5 2 puffs twice daily. ?Rinse mouth after use. - Continue Spiriva 1 puff once daily. - Continue using Albuterol, 2 puffs prior to activities associated with shortness of breath and up to every 4 hours as needed for shortness of breath/wheezing. - Pneumococcal vaccination repeat 2019. Re-assess in 6 months. I addressed the questions of the patient, and she expressed understanding and acceptance of my answers. Jess Bundy PA-C [facility] [place] [facility] [place] [address] [place] [address] CNOV Observed: 09/02/2017 Status: COMPLETED Source: [place] 9:[address] [facility] REPOSITORY Office Visit (PULMWS) MADISON PENALOZA ([id number]) 1940 F Date Time Provider Department 09/02/17 9:00 AM JESS BUNDY During your visit today, we recorded the following information about you: Pulse Respiration Blood pressure Weight 66/minute 16/minute 118/60 48.1 kg Height 1.524 m Palak Marie MEG 09/02/2017 9:12 AM Signed Intake information documented in the prior visit with Mona Mauro, RFP WRITER today. Jess Bundy PA-C 09/02/2017 9:33 AM Signed [facility] [place], 09/02/17: HPI: The patient is here for follow up of COPD. The last Pulmonary Clinic visit was 02/25/17. Patient was seen in PCP office 08/30/17 secondary to URI. Was not started on antibiotics at that time. Since then the patient has not required ED care for exacerbation. There has been no hospital admission for exacerbation. Claims to be consistently compliant with prescribed maintenance Rx. Cough improving. Tessalon Perles provide relief. Variable sputum, dark yellow and thick. Secretions are improving. No hemoptysis. No pleuritic chest pain. No fevers or chills at this time. No wheezing at this time. Exertional dyspnea worse with chest congestion. Walks every morning, unable to go as far as normal. PMH: Updated with patient today. FAMH: Updated with patient today. SOCH: Updated with patient today. Immunization History Administered Date(s) Administered Influenza Seasonal - High Dose - Age 65+ 12/07/2015 11/23/2016 Pneumococcal-13 Vac Conjugate 03/03/2014 ROS: General: Generally feels . Appetite good. Weight stable. Eyes, Ears, nose, throat: No post nasal drip, rhinorrhea, purulent nasal discharge, epistaxis. No hoarseness. Vision stable. Cardiac: No angina, edema, orthopnea. GI: No heartburn, dysphagia, diarrhea. Uro/GENERAL DOC: No dysuria, hesitancy, nocturia. Musculoskeletal: No pain. Neuro: No headache, focal weakness, tremor. Skin: No rash. Otherwise negative. Allergies were reviewed and updated, and medications were reconciled with the patient. PHYSICAL EXAMINATION: BP 118/60 Pulse 66 Resp 16 Ht 5' 0 (1.52m) Wt 106 lb (48.1kg) SpO2 96% BMI 20.70 kg/(m2). Gen: No acute distress. Cooperative with examination. ENT: Oral hygeine and dentition good. Pharynx clear. No halitosis. Resp: No stridor, accessory respiratory muscle use, supra- sternal or intercostal retractions. No wheezes, crackles. CV: Regular rythm. Heart tones normal. Radial pulses normal. Abd: Non distended. MSK: No kyphoscoliosis. Ext: Warm and well perfused. No clubbing, cyanosis, edema. Skin: No rash, ecchymoses. Neuro: Mental status normal. Affect normal. No tremor. DATA REVIEW: DATE: 09/02/17 06/05/16 FVC 2.15 (93 % pred) 2.12 (84 % pred) FEV1 1.03 (60 % pred) 1.12 (59 % pred) +6 % post BD FEV1/FVC 0.48 0.53 IMPRESSION/RECOMMEND: 1. Chronic obstructive pulmonary disease, emphysema and chronic bronchitis with acute exacerbation. - Start Augmentin 1 tablet daily for 7 days. Eat a yogurt daily while taking this medication. Sent to pharmacy. - Prednisone taper as directed. Sent to pharmacy. If no improvement after above treatment, please call the office or send a [employer] message and I will order a CXR. - Continue Symbicort 160/4.5 2 puffs twice daily. ?Rinse mouth after use. - Continue Spiriva 1 puff once daily. - Continue using Albuterol, 2 puffs prior to activities associated with shortness of breath and up to every 4 hours as needed for shortness of breath/wheezing. - Pneumococcal vaccination repeat 2019. Re-assess in 6 months. I addressed the questions of the patient, and she expressed understanding and acceptance of my answers. Jess Bundy PA-C [facility] [place] [address] [place] [address] Jess Bundy PA-C 09/02/2017 9:32 AM Signed 1. Chronic obstructive pulmonary disease, emphysema and chronic bronchitis with acute exacerbation. - Start Augmentin 1 tablet daily for 7 days. Eat a yogurt daily while taking this medication. Sent to pharmacy. - Prednisone taper as directed. Sent to pharmacy. If no improvement after above treatment, please call the office or send a [employer] message and I will order a CXR. - Continue Symbicort 160/4.5 2 puffs twice daily. ?Rinse mouth after use. - Continue Spiriva 1 puff once daily. - Continue using Albuterol, 2 puffs prior to activities associated with shortness of breath and up to every 4 hours as needed for shortness of breath/wheezing. - Pneumococcal vaccination repeat 2019. Re-assess in 6 months. Referring Provider: JESS BUNDY [[id number]] Allergies As of Date: 09/02/2017 Noted Allergy Reaction CODEINE 03/03/2016 8 - GI Upset 11 - Vomiting SHELLFISH CONTAINING PRODUCTS 03/03/2016 7 - Swelling 10 - Anaphylaxis 12 - Shortness of Breath BACITRACIN 03/03/2016 9 - Itching LATEX 03/03/2016 2 - Rash Date Reviewed: 09/02/2017 Reviewed by: Jess Bundy - Fully Assessed Reason for Visit: Established Patient [175] Cmt: ILD Primary Visit Diagnosis:COPD with exacerbation (HCC) [J44.1] Order(s):predniSONE (DELTASONE) 10 mg tablet4 tabs daily for 3 days, 3 tabs daily for 3 days, 2 tabs daily for 3 days, 1 tabs daily for 3 days.Disp: 30 tabletRfl: 0 amoxicillin-clavulanic acid (AUGMENTIN) 875-125 mg per tabletTake 1 tablet by mouth twice daily for 7 days.Disp: 14 tabletRfl: 0 SPIROMETRY BASELINE ONLY [[id number]] Order #: [id number] FUTURE Prescriptions as of 09/02/2017 Sig: BENZONATATE 100 MG CAPSULE Take 1 capsule by mouth three* ALBUTEROL SULFATE HFA 90 MCG/* Inhale 2 Puffs as instructed * TIOTROPIUM BROMIDE 18 MCG CAP* INHALE THE CONTENTS OF ONE CA* BUDESONIDE-FORMOTEROL HFA 160* Inhale 2 Puffs as instructed * FLUTICASONE 50 MCG/ACTUATION * Use 1 [facility] in each nostril o* ALENDRONATE 70 MG TABLET Take 1 tablet by mouth once e* CALCIUM ORAL Take 1 tablet by mouth once d* PREDNISONE 10 MG TABLET 4 tabs daily for 3 days, 3 ta* AMOXICILLIN 875 MG-POTASSIUM * Take 1 tablet by mouth twice * CHOLECALCIFEROL (VITAMIN D3) * Take 1 capsule by mouth once * ZINC 50 MG TABLET Take by mouth. MAGNESIUM ORAL Take 1 tablet by mouth once d* Problem List As Of Date 09/02/2017 Noted Resolved CLL (chronic lymphocytic leukemia) ([facility]) [C91.9*INVALID FOR* Epigastric pain [R10.13] INVALID FOR* Emphysema of lung (HCC) [J43.9] INVALID FOR* Breast cancer (HCC) [C50.919] More... Mitral valve regurgitation [I34.0] More... Osteoporosis [M81.0] Non Hodgkin's lymphoma (HCC) [C85.90] More... COPD (chronic obstructive pulmonary disease) (H* Mixed hyperlipidemia [E78.2] INVALID FOR* History of breast cancer in female [Z85.3] INVALID FOR* Other instructions from your clinician: 1. Chronic obstructive pulmonary disease, emphysema and chronic bronchitis with acute exacerbation. - Start Augmentin 1 tablet daily for 7 days. Eat a yogurt daily while taking this medication. Sent to pharmacy. - Prednisone taper as directed. Sent to pharmacy. If no improvement after above treatment, please call the office or send a [employer] message and I will order a CXR. - Continue Symbicort 160/4.5 2 puffs twice daily. ?Rinse mouth after use. - Continue Spiriva 1 puff once daily. - Continue using Albuterol, 2 puffs prior to activities associated with shortness of breath and up to every 4 hours as needed for shortness of breath/wheezing. - Pneumococcal vaccination repeat 2019. Re-assess in 6 months. Visit Notes: >> Palak Cynthia WEAVER [facility] Sep 02, 2017 9:04 AM Status: Signed Intake information documented in the prior visit with Mona Mauro RFP WRITER today. Prescriptions ordered this encounter Disp Refills Start End PREDNISONE 10 MG TABLET 30 t* 0 09/02/2017 Si tabs daily for 3 days, 3 tabs daily for 3 days, 2 tabs daily for 3 days, 1 tabs daily for 3 days. AMOXICILLIN 875 MG-POTASSIUM CLAVULA* 14 t* 0 09/02/2017 09/09/2017 Route: ORAL Sig: Take 1 tablet by mouth twice daily for 7 days. Medications Discontinued During This Encounter sucralfate (CARAFATE) 1 gram tablet 90 t* 5 08/30/2017 09/02/2017 Route: ORAL Sig: Take 1 tablet by mouth three times daily. Disc: Discontinued by another Health Care Provider Disposition: Return in about 6 months (around 03/05/2018). Follow-up and Disposition History Recorded Encounter Status:Closed by JESS BUNDY on 09/02/17 PROGRESS Observed: 08/30/2017 Status: COMPLETED Source: [place] 9:[address] [facility] REPOSITORY HNO ID: [id number] Author: Morelia (Reynaldo) Kash Service: (none) Author Type: Nurse Practitioner Type: Progress Notes Filed: 08/30/2017 9:51 AM Note Text: 77 year old female with c/o cough sx over the last 3 weeks. She actually does feel like she is on the mend. Sore throat: scratchy from coughing. Runny/stuffy nose: Yes -- but feel that part is improving. Postnasal drip: Yes. Throat clearing: Yes. Sinus pain/ pressure: once and awhile. Teeth pain: Yes. Headache Yes. Body aches Yes. Ear pain: Yes - left ear. Cough: Yes. Production: Yes. Thick. Fever: No -- but didn't check. Hx asthma - COPD. Hx pneumonia Yes. Smoker: No. OTC meds tried: robitussin. ACTIVE PROBLEM LIST Cll (Chronic Lymphocytic Leukemia) (Hcc) Epigastric Pain Emphysema of Lung (Hcc) Breast Cancer (Hcc) Mitral Valve Regurgitation Osteoporosis Non Hodgkin's Lymphoma (Hcc) Copd (Chronic Obstructive Pulmonary Disease) (Hcc) Mixed Hyperlipidemia History of Breast Cancer in Female Current Outpatient Prescriptions: benzonatate (TESSALON PERLE) 100 mg capsule Take 1 capsule by mouth three times daily as needed for Cough. Disp: 30 capsule Rfl: 0 albuterol HFA (PROVENTIL HFA, VENTOLIN HFA) 90 mcg/actuation inhaler Inhale 2 Puffs as instructed four times daily as needed. FOR WHEEZING AND SHORTNESS OF BREATH. Disp: 1 Each Rfl: 3 tiotropium (SPIRIVA WITH HANDIHALER) 18 mcg inhalation capsule INHALE THE CONTENTS OF ONE CAPSULE ONCE DAILY Disp: 30 capsule Rfl: 11 budesonide-formoterol (SYMBICORT) 160-4.5 mcg/actuation inhaler Inhale 2 Puffs as instructed twice daily. Disp: 1 Inhaler Rfl: 11 fluticasone (FLONASE) 50 mcg/actuation nasal spray Use 1 [place] in each nostril once daily. Disp: 1 Bottle Rfl: 11 alendronate (FOSAMAX) 70 mg tablet Take 1 tablet by mouth once each week. Take with a full glass of water, on an empty stomach; do NOT lie down for 30minutes. Disp: 12 tablet Rfl: 3 sucralfate (CARAFATE) 1 gram tablet Take 1 tablet by mouth three times daily. Disp: 90 tablet Rfl: 5 Cholecalciferol, Vitamin D3, (VITAMIN D-3) 2,000 unit cap Take 1 capsule by mouth once daily. Disp: Rfl: CALCIUM ORAL Take 1 tablet by mouth once daily. Disp: Rfl: Zinc 50 mg tab Take by mouth. Disp: Rfl: MAGNESIUM ORAL Take 1 tablet by mouth once daily. Disp: Rfl: No current facility-administered medications for this visit. OBJECTIVE: BP 112/66 (BP Site: Left Arm, BP Position: Sitting, BP Cuff Size: Regular Adult) Pulse 60 Temp 36.8 ?C (98.3 ?F) (Left Tympanic) Resp 12 Wt 47.6 kg (105 lb) SpO2 98% BMI 20.17 kg/m? General Appearance: Well appearing, alert, in no acute distress, well-hydrated, well nourished.. Skin: Skin color, texture, turgor normal, no suspicious rashes or lesions. Head: Normocephalic, no masses, lesions, tenderness or abnormalities. Eyes: Anicteric sclera. Pupils are equally round and reactive to light. Extraocular movements are intact. . Ears: External ears normal, canals clear, Positive findings: R TM: air/fluid interface visualized, L TM: air/fluid interface visualized. Nose/Sinuses: Nares normal, septum midline, mucosa normal, no drainage or sinus tenderness. Oropharynx: Lips, mucosa, and tongue normal, teeth and gums normal, oropharynx normal. Neck: Supple, no adenopathy Lungs: Lungs clear to auscultation. No wheezing, rhonchi, rales. Heart: RRR without murmur, gallop, or rubs. No ectopy. Neurologic: Gait normal. Assessment: ASSESSMENT/PLAN: 1. URI, acute - ICD9: 465.9, ICD10: J06.9 (primary diagnosis) Pt actually feels that she is on the mend. She would like to hold off on antibiotic at this time. She is going to continue to monitor symptoms, if she notices worsening, she will contact the provider to consider antibiotic therapy. - Symptomatic treatment with prn analgesia - Supportive care with fluids and rest - BENZONATATE 100 MG CAPSULE 2. Epigastric pain - ICD9: 789.06, ICD10: R10.13 Refill: - SUCRALFATE 1 GRAM TABLET Discussed treatment plan and patient voices understanding. Patient's questions answered appropriately. Medications and potential side effects were discussed and patient voices understanding. Return to the office as scheduled or as needed for worsening/no improvement. Morelia Hewitt APRN.CNP CNOV Observed: 08/30/2017 Status: COMPLETED Source: [place] 9:[address] [facility] REPOSITORY Office Visit (FAMPWS) MADISON PENALOZA ([id number]) 1940 F Date Time Provider Department 08/30/17 9:00 AM MORELIA HEWITT (REYNALDO) MEKAWS During your visit today, we recorded the following information about you: Temperature Pulse Respiration Blood pressure 98.3 degrees 60/minute 12/minute 112/66 Weight 47.6 kg Morelia Hewitt APRN.CNP 08/30/2017 9:51 AM Signed 77 year old female with c/o cough sx over the last 3 weeks. She actually does feel like she is on the mend. Sore throat: scratchy from coughing. Runny/stuffy nose: Yes -- but feel that part is improving. Postnasal drip: Yes. Throat clearing: Yes. Sinus pain/ pressure: once and awhile. Teeth pain: Yes. Headache Yes. Body aches Yes. Ear pain: Yes - left ear. Cough: Yes. Production: Yes. Thick. Fever: No -- but didn't check. Hx asthma - COPD. Hx pneumonia Yes. Smoker: No. OTC meds tried: robitussin. ACTIVE PROBLEM LIST Cll (Chronic Lymphocytic Leukemia) (Hcc) Epigastric Pain Emphysema of Lung (Hcc) Breast Cancer (Hcc) Mitral Valve Regurgitation Osteoporosis Non Hodgkin's Lymphoma (Hcc) Copd (Chronic Obstructive Pulmonary Disease) (Hcc) Mixed Hyperlipidemia History of Breast Cancer in Female Current Outpatient Prescriptions: benzonatate (TESSALON PERLE) 100 mg capsule Take 1 capsule by mouth three times daily as needed for Cough. Disp: 30 capsule Rfl: 0 albuterol HFA (PROVENTIL HFA, VENTOLIN HFA) 90 mcg/actuation inhaler Inhale 2 Puffs as instructed four times daily as needed. FOR WHEEZING AND SHORTNESS OF BREATH. Disp: 1 Each Rfl: 3 tiotropium (SPIRIVA WITH HANDIHALER) 18 mcg inhalation capsule INHALE THE CONTENTS OF ONE CAPSULE ONCE DAILY Disp: 30 capsule Rfl: 11 budesonide-formoterol (SYMBICORT) 160-4.5 mcg/actuation inhaler Inhale 2 Puffs as instructed twice daily. Disp: 1 Inhaler Rfl: 11 fluticasone (FLONASE) 50 mcg/actuation nasal spray Use 1 [place] in each nostril once daily. Disp: 1 Bottle Rfl: 11 alendronate (FOSAMAX) 70 mg tablet Take 1 tablet by mouth once each week. Take with a full glass of water, on an empty stomach; do NOT lie down for 30minutes. Disp: 12 tablet Rfl: 3 sucralfate (CARAFATE) 1 gram tablet Take 1 tablet by mouth three times daily. Disp: 90 tablet Rfl: 5 Cholecalciferol, Vitamin D3, (VITAMIN D-3) 2,000 unit cap Take 1 capsule by mouth once daily. Disp: Rfl: CALCIUM ORAL Take 1 tablet by mouth once daily. Disp: Rfl: Zinc 50 mg tab Take by mouth. Disp: Rfl: MAGNESIUM ORAL Take 1 tablet by mouth once daily. Disp: Rfl: No current facility-administered medications for this visit. OBJECTIVE: BP 112/66 (BP Site: Left Arm, BP Position: Sitting, BP Cuff Size: Regular Adult) Pulse 60 Temp 36.8 ?C (98.3 ?F) (Left Tympanic) Resp 12 Wt 47.6 kg (105 lb) SpO2 98% BMI 20.17 kg/m? General Appearance: Well appearing, alert, in no acute distress, well-hydrated, well nourished.. Skin: Skin color, texture, turgor normal, no suspicious rashes or lesions. Head: Normocephalic, no masses, lesions, tenderness or abnormalities. Eyes: Anicteric sclera. Pupils are equally round and reactive to light. Extraocular movements are intact. . Ears: External ears normal, canals clear, Positive findings: R TM: air/fluid interface visualized, L TM: air/fluid interface visualized. Nose/Sinuses: Nares normal, septum midline, mucosa normal, no drainage or sinus tenderness. Oropharynx: Lips, mucosa, and tongue normal, teeth and gums normal, oropharynx normal. Neck: Supple, no adenopathy Lungs: Lungs clear to auscultation. No wheezing, rhonchi, rales. Heart: RRR without murmur, gallop, or rubs. No ectopy. Neurologic: Gait normal. Assessment: ASSESSMENT/PLAN: 1. URI, acute - ICD9: 465.9, ICD10: J06.9 (primary diagnosis) Pt actually feels that she is on the mend. She would like to hold off on antibiotic at this time. She is going to continue to monitor symptoms, if she notices worsening, she will contact the provider to consider antibiotic therapy. - Symptomatic treatment with prn analgesia - Supportive care with fluids and rest - BENZONATATE 100 MG CAPSULE 2. Epigastric pain - ICD9: 789.06, ICD10: R10.13 Refill: - SUCRALFATE 1 GRAM TABLET Discussed treatment plan and patient voices understanding. Patient's questions answered appropriately. Medications and potential side effects were discussed and patient voices understanding. Return to the office as scheduled or as needed for worsening/no improvement. Morelia Hewitt APRN.REYNALDO Hewitt APRN.REYNALDO 08/30/2017 9:45 AM Signed 1. Fred doss to the pharmacy. 2. If anything changes/worsens -- please let me know and consider antibiotic. (fever, worsening cough, coughing out blood, etc). 3. Lots of fluids. Referring Provider: SELF [[id number]] Allergies As of Date: 08/30/2017 Noted Allergy Reaction CODEINE 03/03/2016 8 - GI Upset 11 - Vomiting SHELLFISH CONTAINING PRODUCTS 03/03/2016 7 - Swelling 10 - Anaphylaxis 12 - Shortness of Breath BACITRACIN 03/03/2016 9 - Itching LATEX 03/03/2016 2 - Rash Date Reviewed: 08/30/2017 Reviewed by: Ronda Ferraro Arm Rest Builder - Fully Assessed Reason for Visit: Cough [28] Cmt: X 3 weeks Primary Visit Diagnosis:URI, acute [J06.9] Other Visit Diagnosis:Epigastric pain [R10.13] Order(s):sucralfate (CARAFATE) 1 gram tabletTake 1 tablet by mouth three times daily.Disp: 90 tabletRfl: 5 benzonatate (TESSALON PERLE) 100 mg capsuleTake 1 capsule by mouth three times daily as needed for Cough.Disp: 30 capsuleRfl: 0 Prescriptions as of 08/30/2017 Sig: SUCRALFATE 1 GRAM TABLET Take 1 tablet by mouth three * BENZONATATE 100 MG CAPSULE Take 1 capsule by mouth three* ALBUTEROL SULFATE HFA 90 MCG/* Inhale 2 Puffs as instructed * TIOTROPIUM BROMIDE 18 MCG CAP* INHALE THE CONTENTS OF ONE CA* BUDESONIDE-FORMOTEROL HFA 160* Inhale 2 Puffs as instructed * FLUTICASONE 50 MCG/ACTUATION * Use 1 Providence in each nostril o* ALENDRONATE 70 MG TABLET Take 1 tablet by mouth once e* CHOLECALCIFEROL (VITAMIN D3) * Take 1 capsule by mouth once * CALCIUM ORAL Take 1 tablet by mouth once d* ZINC 50 MG TABLET Take by mouth. MAGNESIUM ORAL Take 1 tablet by mouth once d* Problem List As Of Date 08/30/2017 Noted Resolved CLL (chronic lymphocytic leukemia) (HCC) [C91.9*INVALID FOR* Epigastric pain [R10.13] INVALID FOR* Emphysema of lung (HCC) [J43.9] INVALID FOR* Breast cancer (HCC) [C50.919] More... Mitral valve regurgitation [I34.0] More... Osteoporosis [M81.0] Non Hodgkin's lymphoma (HCC) [C85.90] More... COPD (chronic obstructive pulmonary disease) (H* Mixed hyperlipidemia [E78.2] INVALID FOR* History of breast cancer in female [Z85.3] INVALID FOR* Other instructions from your clinician: 1. Tessalon perles to the pharmacy. 2. If anything changes/worsens -- please let me know and consider antibiotic. (fever, worsening cough, coughing out blood, etc). 3. Lots of fluids. Prescriptions ordered this encounter Disp Refills Start End SUCRALFATE 1 GRAM TABLET 90 t* 5 08/30/2017 Route: ORAL Sig: Take 1 tablet by mouth three times daily. BENZONATATE 100 MG CAPSULE 30 c* 0 08/30/2017 Route: ORAL Sig: Take 1 capsule by mouth three times daily as needed for Cough. Medications Discontinued During This Encounter sucralfate (CARAFATE) 1 gram tablet 90 t* 5 09/17/2016 08/30/2017 Route: ORAL Sig: Take 1 tablet by mouth three times daily. Disc: Reason for discontinue is not on file. benzonatate (TESSALON PERLE) 100 mg * 30 c* 0 08/27/2017 08/30/2017 Route: ORAL Sig: Take 1 capsule by mouth three times daily as needed for Cough. Disc: Reason for discontinue is not on file. Encounter Status:Closed by MORELIA HEWITT CNP on 08/30/17 CNOVSP Observed: 05/11/2017 Status: COMPLETED Source: [place] 8:[address] [facility] REPOSITORY Visit (SP) Office (DAYA) MADISON PENALOZA ([id number]) 1940 F Date Time Provider Department 05/11/17 8:50 AM ALVIN PENNINGTON During your visit today, we recorded the following information about you: Temperature Pulse Blood pressure Weight 98.1 degrees 55/minute 144/80 48.3 kg Alvin Pennington MD 05/12/2017 7:26 AM Signed PATIENT NAME: Madison Penaloza. CLINIC NO: [id number]. ATTENDING PHYSICIAN: Alvin Pennington MD. DATE OF SERVICE:05/11/2017. ? DIAGNOSIS: CLL/SLL ANDamp; history of breast cancer. ? HPI: 76-year-old female with history of CLL/SLL well-differentiated lymphocytic lymphoma since 2002. Patient has been monitored closely and previously had a lymph node biopsy consistent with diagnosis. Patient has minimal symptoms, and was treated previously with rituximab over 10 years ago. Patient had no further treatment and bone marrow biopsy that showed minimal involvement with low-grade B-cell lymphoma. (CD5 positive, monoclonal B-cell population, 23% sample and bone marrow consistent with CLL) Patient had diminished immunoglobulin levels with no sign of infection in the past. She also had an episode of thrombocytopenia in 2014 which resolved spontaneously. FISH- CLL panel last year showed no evidence of structural or chromosomal alteration. PET/CT scan in 2013 showed no evidence of lymphoma. ? Patient has history of COPD from previous tobacco use ([id number]) and quit over 30 years ago. Patient also had history of borderline hypertension, and episode of hemoptysis recur bronchial artery embolization 2006. Patient was diagnosed with early breast cancer over 40 years ago and had bilateral mastectomy and total abdominal hysterectomy. She did not have any chemotherapy, radiation or hormonal/endocrine therapy for breast cancer. Family history significant for breast cancer and ovarian cancer. ? She noted some weight loss and recurrent epigastric pain. No change in bowel habits, diarrhea or constipation. She denied rectal bleeding or melena. Her abdominal pain is worse after taking certain type of food. She had tried gluten-free diet with minimal improvement last year. CT scan of abdomen and pelvis showed no abnormality last year. ? interim history: Patient denied fever, chills, night sweats, or increased fatigue. She has no chest pain, cough or shortness of breath. patient has no abdominal pain, abnormal appetite and her weight has been improving. All medications ANDamp; allergies updated and KP score reviewed by me. REVIEW OF SYSTEMS: ? CONSTITUTIONAL: No fevers, chills, nightsweats, unintended weight loss HEENT: Denies frequent or severe heaches, nasal congestion/sinus symptoms, problematic allergy problems. EYES: No diplopia or blurry vision. CARDIOVASCULAR: No chest pain, dyspnea, palpitations, orthopnea, PND, ankle edema. PULM: No dyspnea, unexplained cough. GI: + Epigastric pain, No dysphagia/odynophagia, problematic reflux, constipation, diarrhea, changes in stool habits, hematochezia, melena. : No new urinary complaints, including dysuria, gross hematuria or pyuria. NEURO: No new balance problems, peripheral weakness/paresthesias or numbness of concern. MUSC-SKEL: No new joint pain, swelling, or erythema. PSY: No concerns regarding depression, anxiety or panic. INTEGUMENTARY: No new skin changes (rash, new or changing mole, new growth) ? PHYSICAL EXAMINATION: 76-year-old female in no acute distress There were no vitals taken for this visit. HEENT: Head is normocephalic, atraumatic. Sclerae white, conjunctivae pink. PEERL. EOMs are intact. Oropharynx is benign. LYMPHATICS: There is no palpable adenopathy in the neck, supraclavicular region, axillae, or groin. LUNGS: Lungs are clear to percussion and auscultation. HEART: Heart is normal without murmurs, gallops, or rubs. ABDOMEN: Soft and nontender without organomegaly. No masses can be palpated. EXTREMITIES: Are without edema. NEUROLOGIC: Exam is physiologic ? LABORATORY DATA: Component Latest Ref Rng ANDamp; Units 05/11/2017 WBC, [place] 3.70 - 11.00 k/uL 12.40 (H) RBC, [place] 3.90 - 5.20 m/uL 4.78 Hemoglobin, [place] 11.5 - 15.5 g/dL 15.1 Hematocrit, [place] 36.0 - 46.0 % 45.7 MCV, [place] 80.0 - 100.0 fL 95.6 MCH, [place] 26.0 - 34.0 pg 31.6 MCHC, [place] 30.5 - 36.0 g/dL 33.0 RDW, [place] 11.5 - 15.0 % 14.4 Platelet Cnt, [place] 150 - 400 k/uL 169 MPV, [place] 9.0 - 12.7 fL 11.9 Absol Gran Count 1.45 - 7.50 k/uL 5.38 Component Latest Ref Rng ANDamp; Units 05/11/2017 Protein, Total 6.3 - 8.0 g/dL 6.3 Albumin 3.9 - 4.9 g/dL 4.4 Calcium 8.5 - 10.2 mg/dL 9.3 Bilirubin, Total 0.2 - 1.3 mg/dL 0.6 Alkaline Phosphatase 32 - 117 U/L 70 AST 13 - 35 U/L 26 Glucose 74 - 99 mg/dL 85 BUN 7 - 21 mg/dL 16 Creatinine 0.58 - 0.96 mg/dL 0.70 Sodium 136 - 144 mmol/L 145 (H) Potassium 3.7 - 5.1 mmol/L 3.6 (L) Chloride 97 - 105 mmol/L 105 CO2 22 - 30 mmol/L 28 Anion Gap 9 - 18 mmol/L 12 ALT 7 - 38 U/L 17 eGFR- ANDgt;60 eGFR-All Other Races . ANDgt;60 LD 135 - 214 U/L 258 (H) ASSESSMENT: 75-year-old female with history of CLL/SLL, previous treated with rituximab. Clinically, patient is stable with no progression of disease ?- history of constipation secondary to irritable bowel syndrome. EGD and colonoscopy last year were normal. Her weight has been improving since last year. ? PLAN: - continue observation, no treatment is needed at this time. -.Repeat CBC, CMP, LDH OV in 1 year - increase fiber and fluid with her diet. Start MiraLAX once daily for constipation and follow up with PCP ? Alvin Pennington MD. Referring Provider: JEY TSE [[id number]] Allergies As of Date: 05/11/2017 Noted Allergy Reaction CODEINE 03/03/2016 8 - GI Upset 11 - Vomiting SHELLFISH CONTAINING PRODUCTS 03/03/2016 7 - Swelling 10 - Anaphylaxis 12 - Shortness of Breath BACITRACIN 03/03/2016 9 - Itching LATEX 03/03/2016 2 - Rash Date Reviewed: 05/11/2017 Reviewed by: Jef Platt - Fully Assessed Reason for Visit: Established Patient [175] Primary Visit Diagnosis:CLL (chronic lymphocytic leukemia) (HCC) [C91.10] Other Visit Diagnosis:History of breast cancer in female [Z85.3] Level of Service: EST PATIENT VISIT LEVEL 3 [[id number]] Disposition: Return in about 1 year (around 05/11/2018). Follow-up and Disposition History Recorded Prescriptions as of 05/11/2017 Sig: ALBUTEROL SULFATE HFA 90 MCG/* Inhale 2 Puffs as instructed * TIOTROPIUM BROMIDE 18 MCG CAP* INHALE THE CONTENTS OF ONE CA* BUDESONIDE-FORMOTEROL HFA 160* Inhale 2 Puffs as instructed * FLUTICASONE 50 MCG/ACTUATION * Use 1 [place] in each nostril o* ALENDRONATE 70 MG TABLET Take 1 tablet by mouth once e* BENZONATATE 100 MG CAPSULE Take 1 capsule by mouth three* SUCRALFATE 1 GRAM TABLET Take 1 tablet by mouth three * CHOLECALCIFEROL (VITAMIN D3) * Take 1 capsule by mouth once * CALCIUM ORAL Take 1 tablet by mouth once d* MAGNESIUM ORAL Take 1 tablet by mouth once d* ZINC 50 MG TABLET Take by mouth. Medication notes this encounter ZINC 50 MG TABLET >> Jef Platt MA 05/11/2017 8:36 AM >> EJF PLATT MA alexandru May 11, 2017 8:36 AM Not taking. Problem List As Of Date 05/11/2017 Noted Resolved CLL (chronic lymphocytic leukemia) (HCC) [C91.1*INVALID FOR* Epigastric pain [R10.13] INVALID FOR* Emphysema of lung (HCC) [J43.9] INVALID FOR* Breast cancer (HCC) [C50.919] More... Mitral valve regurgitation [I34.0] More... Osteoporosis [M81.0] Non Hodgkin's lymphoma (HCC) [C85.90] More... COPD (chronic obstructive pulmonary disease) (H* Mixed hyperlipidemia [E78.2] INVALID FOR* Encounter Status:Closed by ALVIN PENNINGTON MD on 05/12/17 PROGRESS Observed: 05/11/2017 Status: COMPLETED Source: [place] 8:30 AM [facility] [place] REPOSITORY [facility] ID: [id number] Author: Alvin Pennington Service: (none) Author Type: Physician Type: Progress Notes Filed: 05/12/2017 7:26 AM Note Text: PATIENT NAME: Madison Penaloza. CLINIC NO: [id number]. ATTENDING PHYSICIAN: Alvin Pennington MD. DATE OF SERVICE:05/11/2017. ? DIAGNOSIS: CLL/SLL AND history of breast cancer. ? HPI: 76-year-old female with history of CLL/SLL well-differentiated lymphocytic lymphoma since 2002. Patient has been monitored closely and previously had a lymph node biopsy consistent with diagnosis. Patient has minimal symptoms, and was treated previously with rituximab over 10 years ago. Patient had no further treatment and bone marrow biopsy that showed minimal involvement with low-grade B-cell lymphoma. (CD5 positive, monoclonal B-cell population, 23% sample and bone marrow consistent with CLL) Patient had diminished immunoglobulin levels with no sign of infection in the past. She also had an episode of thrombocytopenia in 2014 which resolved spontaneously. FISH-CLL panel last year showed no evidence of structural or chromosomal alteration. PET/CT scan in 2013 showed no evidence of lymphoma. ? Patient has history of COPD from previous tobacco use ([id number]) and quit over 30 years ago. Patient also had history of borderline hypertension, and episode of hemoptysis recur bronchial artery embolization 2006. Patient was diagnosed with early breast cancer over 40 years ago and had bilateral mastectomy and total abdominal hysterectomy. She did not have any chemotherapy, radiation or hormonal/endocrine therapy for breast cancer. Family history significant for breast cancer and ovarian cancer. ? She noted some weight loss and recurrent epigastric pain. No change in bowel habits, diarrhea or constipation. She denied rectal bleeding or melena. Her abdominal pain is worse after taking certain type of food. She had tried gluten-free diet with minimal improvement last year. CT scan of abdomen and pelvis showed no abnormality last year. ? interim history: Patient denied fever, chills, night sweats, or increased fatigue. She has no chest pain, cough or shortness of breath. patient has no abdominal pain, abnormal appetite and her weight has been improving. All medications AND allergies updated and KP score reviewed by me. REVIEW OF SYSTEMS: ? CONSTITUTIONAL: No fevers, chills, nightsweats, unintended weight loss HEENT: Denies frequent or severe heaches, nasal congestion/sinus symptoms, problematic allergy problems. EYES: No diplopia or blurry vision. CARDIOVASCULAR: No chest pain, dyspnea, palpitations, orthopnea, PND, ankle edema. PULM: No dyspnea, unexplained cough. GI: + Epigastric pain, No dysphagia/odynophagia, problematic reflux, constipation, diarrhea, changes in stool habits, hematochezia, melena. : No new urinary complaints, including dysuria, gross hematuria or pyuria. NEURO: No new balance problems, peripheral weakness/paresthesias or numbness of concern. MUSC-SKEL: No new joint pain, swelling, or erythema. PSY: No concerns regarding depression, anxiety or panic. INTEGUMENTARY: No new skin changes (rash, new or changing mole, new growth) ? PHYSICAL EXAMINATION: 76-year-old female in no acute distress There were no vitals taken for this visit. HEENT: Head is normocephalic, atraumatic. Sclerae white, conjunctivae pink. PEERL. EOMs are intact. Oropharynx is benign. LYMPHATICS: There is no palpable adenopathy in the neck, supraclavicular region, axillae, or groin. LUNGS: Lungs are clear to percussion and auscultation. HEART: Heart is normal without murmurs, gallops, or rubs. ABDOMEN: Soft and nontender without organomegaly. No masses can be palpated. EXTREMITIES: Are without edema. NEUROLOGIC: Exam is physiologic ? LABORATORY DATA: Component Latest Ref Rng AND Units 05/11/2017 WBC, [place] 3.70 - 11.00 k/uL 12.40 (H) RBC, [place] 3.90 - 5.20 m/uL 4.78 Hemoglobin, [place] 11.5 - 15.5 g/dL 15.1 Hematocrit, [place] 36.0 - 46.0 % 45.7 MCV, [place] 80.0 - 100.0 fL 95.6 MCH, [place] 26.0 - 34.0 pg 31.6 MCHC, [place] 30.5 - 36.0 g/dL 33.0 RDW, [place] 11.5 - 15.0 % 14.4 Platelet Cnt, [place] 150 - 400 k/uL 169 MPV, [place] 9.0 - 12.7 fL 11.9 Absol Gran Count 1.45 - 7.50 k/uL 5.38 Component Latest Ref Rng AND Units 05/11/2017 Protein, Total 6.3 - 8.0 g/dL 6.3 Albumin 3.9 - 4.9 g/dL 4.4 Calcium 8.5 - 10.2 mg/dL 9.3 Bilirubin, Total 0.2 - 1.3 mg/dL 0.6 Alkaline Phosphatase 32 - 117 U/L 70 AST 13 - 35 U/L 26 Glucose 74 - 99 mg/dL 85 BUN 7 - 21 mg/dL 16 Creatinine 0.58 - 0.96 mg/dL 0.70 Sodium 136 - 144 mmol/L 145 (H) Potassium 3.7 - 5.1 mmol/L 3.6 (L) Chloride 97 - 105 mmol/L 105 CO2 22 - 30 mmol/L 28 Anion Gap 9 - 18 mmol/L 12 ALT 7 - 38 U/L 17 eGFR- >60 eGFR-All Other Races . >60 LD 135 - 214 U/L 258 (H) ASSESSMENT: 75-year-old female with history of CLL/SLL, previous treated with rituximab. Clinically, patient is stable with no progression of disease ?- history of constipation secondary to irritable bowel syndrome. EGD and colonoscopy last year were normal. Her weight has been improving since last year. ? PLAN: - continue observation, no treatment is needed at this time. -.Repeat CBC, CMP, LDH OV in 1 year - increase fiber and fluid with her diet. Start MiraLAX once daily for constipation and follow up with PCP ? Alvin Pennington MD. LUPE ABS GR + CBC Collected: 05/11/2017 Status: F Source: [place] 8:25 AM [facility] [place] REPOSITORY TYPE CODE TESTS RESULT OUT OF REFERENCE UNITS RANGE LAB WWBC 3.70-11.00 k/uL [place] High WBC 12.40 LAB WRBC 3.90-5.20 m/uL [place] RBC 4.78 LAB WHGB 11.5-15.5 g/dL [place] Hemoglobin 15.1 LAB WHCT 36.0-46.0 % [place] Hematocrit 45.7 LAB WMCV 80.0-100.0 fL [place] MCV 95.6 LAB WMCH 26.0-34.0 pg [place] MCH 31.6 LAB WMCHC 30.5-36.0 g/dL [place] MCHC 33.0 LAB WRDW 11.5-15.0 % [place] RDW 14.4 LAB WPLT 150-400 k/uL [place] Platelet Cnt 169 LAB WMPV 9.0-12.7 fL [place] MPV 11.9 Result Comment: Test performed at: [facility], [address] [place] [address]. LAB ABGRAN 1.45-7.50 k/uL Absol Gran 5.38 Count LD Collected: 05/11/2017 Status: F Source: [facility] 8:25 AM [facility] REPOSITORY TYPE CODE TESTS RESULT OUT OF RANGE REFERENCE UNITS LAB LD 135-214 U/L High LD 258 Performed By: #### LD6, CMP #### [facility] [address] [place], [place] [address] COMP METABOLIC PANEL Collected: 05/11/2017 Status: F Source: [place] 8:25 AM [facility] REPOSITORY TYPE CODE TESTS RESULT OUT OF REFERENCE UNITS RANGE LAB TP 6.3-8.0 g/dL Protein, Total 6.3 LAB ALB 3.9-4.9 g/dL Albumin 4.4 LAB CA 8.5-10.2 mg/dL Calcium, Total 9.3 LAB TBIL 0.2-1.3 mg/dL Bilirubin, Total 0.6 LAB ALKP 32-117 U/L Alkaline Phosphatase 70 LAB AST 13-35 U/L AST 26 LAB GLU 74-99 mg/dL Glucose 85 Result Comment: The [place] Diabetes [employer] (ADA) provides guidance for cutoff values for fasting glucose and random glucose. The ADA defines fasting as no caloric intake for at least 8 hours. Fas ting plasma glucose results between 100 to 125 mg/dL indicate increased risk for diabetes (prediabetes). Fasting plasma glucose results greater than or equal to 126 mg/dL meet the criteria for diagnosis of diabetes. In the absence of unequivocal hyperglycemia, results should be confirmed by repeat testing. In a patient with classic symptoms of hyperglycemia or hyperglycemic crisis, random plasma glucose results greater than or equal to 200 mg/dL meet the criteria for diagnosis of diabetes. Reference: Standards of Medical Care in Diabetes 2016, [place] [employer] Association. Diabetes Care. 2016.39(Suppl 1). LAB BUN 7-21 mg/dL BUN 16 LAB CRET 0.58-0.96 mg/dL Creatinine 0.70 LAB NA 136-144 mmol/L Sodium High 145 LAB K 3.7-5.1 mmol/L Low Potassium 3.6 LAB CL 97-105 mmol/L Chloride 105 LAB CO2 22-30 mmol/L CO2 28 LAB AGAP 9-18 mmol/L Anion Gap 12 LAB ALT 7-38 U/L ALT 17 LAB GFRAA eGFR- Amer. >60 LAB GFRNAA . eGFR-All Other Races >60 Result Comment: eGFR (Estimated GFR) Units of measure: mL/min/1.73 meters squared eGFR is derived from the reexpressed MDRD Study equation using the following parameters: serum creatinine, age, gender and race. The creatinine assay has been calibrated to be traceable to IDMS. An eGFR <60 mL/min/1.73m2 for >3 months is consistent with chronic kidney disease. Refer to KDOQI guidelines for clinical interpretation. In patients with unstable renal function, e.g. those with acute kidney injury, the eGFR may not accurately reflect actual GFR. Performed By: #### LD6, CMP #### [facility] [address] [place] [address] ALLERGIES ALLERGIES DATE TYPE / NAME / CODE REACTION SEVERITY SOURCE CODE 12/23/2017 DRUG/81205 AMOXICILLIN-POT Vomiting [facility] 1003(SNOME CLAVULANATE [address] [place] D CT) Repository 10/29/2017 Drug codeine/[id number] Rash Unknown [place] Allergy/41 0(RXNORM) Community 7886350([facility] OMED CT) Repository 10/29/2017 Drug bacitracin/[id number] Rash Unknown [place] Allergy/41 2798(RXNORM) Community 8589328([facility] OMED CT) Repository 10/29/2017 Drug latex/[id number]( IF PT USES LATEX Unknown [place] Allergy/41 RXNORM) GLOVES GETS RASH Community 2822673( Hospital OMED CT) Repository 10/29/2017 Drug shellfish Anaphylaxis SV [place] Allergy/41 derived/[id number] Community 1092947( 4(RXNORM) Hospital OMED CT) Repository 03/03/2016 DRUG CODEINE GI UPSET High [place] [address] [address] [place] 5127854(SN Repository OMED CT) 03/03/2016 Drug SHELLFISH SWELLING High [facility] Class/4195 CONTAINING [address] [place] [address](SNOM PRODUCTS Repository ED CT) 03/03/2016 DRUG BACITRACIN ITCHING [place] [address] [address] [place] 9329083(SN Repository OMED CT) 03/03/2016 DRUG LATEX RASH [place] [address] [address] [place] 3541796(SN Repository OMED CT) ENCOUNTERS ENCOUNTERS ADMIT/DISCHARGE ACCOUNT ADMITTING ENCOUNTER LOCATION SOURCE NUMBER CLASS 03/18/2018/03/18/19 [id number] Ambulatory [address] Repository 03/18/2018/03/18/19 [id number] Ambulatory [address] Repository 03/18/2018/03/18/19 [id number] Ambulatory [address] Repository 03/15/2018 [id number] [facility] 02/14/2018/02/17/20 [id number] Ambulatory [address] [place] Repository 02/07/2018/02/09/20 [id number] Ambulatory [address] Repository 12/23/2017/12/24/19 [id number] Ambulatory [address] Repository 11/20/2017/11/23/19 [id number] Ambulatory [address] Repository 11/01/2017 [id number] Ambulatory BMSBuilding:Loretta Andrade [facility] Repository 10/29/2017/10/30/19 [id number] Ambulatory BMSBuilding:Loretta Andrade 20 MS[facility] Repository 10/27/2017 [id number] Ambulatory BMSBuilding:Loretta Andrade MS[facility] Repository 09/29/2017/09/30/19 [id number] Ambulatory [address] Repository 09/29/2017/10/01/19 [id number] Ambulatory [address] Repository 09/16/2017/09/17/19 [id number] Ambulatory [address] Repository 09/16/2017/09/18/19 [id number] Ambulatory [address] Repository 09/07/2017/09/09/19 [id number] Ambulatory [address] Repository 09/02/2017/09/03/19 [id number] Emergency Lupe Andrade [address] [place] [address] ing:ED Repository 09/02/2017/09/03/19 [id number] Ambulatory [address] Repository 09/02/2017/09/07/19 [id number] Ambulatory [address] Repository 08/30/2017/09/01/19 [id number] Ambulatory [address] Repository 05/11/2017/05/13/19 [id number] Ambulatory [address] Repository 05/11/2017/05/12/19 [id number] Ambulatory [address] Repository PAYERS PAYERS ENCOUNTER GUARANTOR PAYER SUBSCRIBER SOURCE 03/15/2018 MADISON A Primary MADISON A [place] [id number] Insurance:MEDICARE STRINEDOB: [facility] DANBERRY PART A [facility] [id number] Number: Repository [id number]: [phone] [id number] [phone] () Date:2018-03-10 03/15/2018 Secondary MADISON A [place] Insurance:MUTUAL OF STRINEDOB: [facility] Number: [id number] Hospital [id number] Repository Date:1758[place]27[place], [place] [address]QV: 03/15/2018 Tertiary NOT GIVENUNK [place] Insurance:SELF PAY [facility] Number: Effective Repository Date:2018-03-10 11/01/2017 MADISON A Primary MADISON A [place] [id number] Insurance:MEDICARE STRINEDOB: Community DANBERRY PART A [facility] [id number] Number: Repository [id number]: [phone] [id number] [phone] () Date:2017-02-05 11/01/2017 Secondary MADISON A [place] Insurance:MUTUAL OF STRINEDOB: [facility] Number: [id number] Hospital [id number] Repository Date:2709-80-29JDMQZC [place], [place] [address]DO: 11/01/2017 Tertiary NOT GIVENUNK [place] Insurance:SELF PAY [facility] Number: Effective Repository Date:2017-02-05 10/29/2017 MADISON A Primary MADISON A [place] [id number] Insurance:MEDICARE STRINEDOB: Community DANBERRY PART A [facility] [id number] Number: Repository [id number]: [phone] [id number] [phone] () Date:2017-09-14 10/29/2017 Secondary MADISON A [place] Insurance:MUTUAL OF STRINEDOB: [facility] Number: [id number] Hospital [id number] Repository Date:9687-42-73QVSKKUMINNEAP[place]IS, [place] [address]LB: 10/29/2017 Tertiary NOT GIVENUNK [place] Insurance:SELF PAY [facility] Number: Effective Repository Date:2017-10-29 10/27/2017 MADISON A Primary MADISON A [place] [id number] Insurance:MEDICARE STRINEDOB: Community DANBERRY PART A [facility] [id number] Number: Repository [id number]: [phone] [id number] [phone] () Date:2017-10-27 10/27/2017 Secondary MADISON A [place] Insurance:MUTUAL OF STRINEDOB: [facility] Number: [id number] Hospital [id number] Repository Date:5132-63-93RBWAXW [place], [place] [address]RY: 10/27/2017 Tertiary NOT GIVENUNK [place] Insurance:SELF PAY [facility] Number: Effective Repository Date:2017-10-27 09/02/2017 MADISON A Primary MADISON A [place] [id number] Insurance:MEDICARE STRINEDOB: Community DANBERRY PART A [facility] [id number] Number: Repository [id number]: [phone] [id number] [phone] () Date:2017-09-02 09/02/2017 Secondary MADISON A [place] Insurance:MUTUAL OF STRINEDOB: [facility] Number: [id number] Hospital [id number] Repository Date:4116-73-20[place], [place] [address]BP: 09/02/2017 Tertiary NOT GIVENUNK [place] Insurance:SELF PAY [facility] Number: Effective Repository Date:2017-09-02
== END ==
PROVIDERS: Family Provider Family Medicine; PCP Family Medicine; Referring Provider Otolaryngology; Visit Provider Otolaryngology
DX: H93.12 Tinnitus, left ear (principal); R42 Dizziness and giddiness
CPT/HCPCS: 70553; A9585

== ENCOUNTER 2018-04-13 23:07 | Inpatient (IN) | payer MEDICARE, OTHER, SELFPAY ==
[2018-04-13 23:08] VITALS: BP 137/83; PULSE 71; RESP 16; TEMP 35.9; O2SAT 96; BMI 19.8
--- NOTE | 2018-04-13 23:15 | EKG12_ITS ---
Test Reason : Blood Pressure : / mmHG Vent. Rate : 072 BPM Atrial Rate : 072 BPM P-R Int : 126 ms QRS Dur : 086 ms QT Int : 394 ms P-R-T Axes : 077 053 052 degrees QTc Int : 431 ms Sinus rhythm with sinus arrhythmia with occasional Premature ventricular complexes Otherwise normal ECG Confirmed by BETTIE SNOW, QUETA ([id number]), health editor MARIXA LIPSCOMB ([id number]) on 04/18/2018 5:11:18 PM Referred By: Jonathan Hilario Confirmed By:QUETA ALEXANDRE MD
[2018-04-13] MEDS: Ondansetron 4 MG/2 ML Vial IV (23:28)
[2018-04-13] MEDS: 0.9% Normal Saline 1,000 ML 1000 ML IV (23:28)
[2018-04-13 23:46] LABS: Absolute Lymphocyte Count 4.01 X10^3/ul (0.83-4.51); Basophil# 0.01 X10^3/uL; Basophil% 0.1 % (0-1); Eosinophil# 0.15 X10^3/uL; Eosinophils% 0.8 % (0-5); Hematocrit 46.1 % (37-47); Hemoglobin 15.1 g/dl (12.0-15.0); Lymphocyte # 4.01 X10^3/ul (4.0); Lymphocyte % 22.4 % (19-41); Mean Corp Hgb Conc 32.8 g/gl (32-36); Mean Corpuscular Volume 94.7 fL (81-99); Mean Platelet Vol. 11.8 fl (6.2-12.0); Monocyte# 0.67 X10^3/uL; Monocyte% 3.7 % (0-10); Neutrophil # 13.04 X10^3/uL (2.7-7.7); Neutrophil % 72.7 % (47-70); Platelet Count 109 K/mm3 (150-450); RBC Distribution Width CV 14.8 % (11.6-14.6); RBC Distribution Width SD 49.3 fl (35.1-43.9); Red Blood Count 4.87 M/mm3 (4.2-5.4); White Blood Count 17.9 K/mm3 (4.4-11.0)
[2018-04-13 23:47] LABS: POSITIVE COUNT NO; POSITIVE DIFFERENTIAL NO; POSITIVE MORPHOLOGY NO
[2018-04-14] VITALS (8 sets, daily range): BP systolic 105–131; BP diastolic 59–73; PULSE 66–110; RESP 16–20; TEMP 36.8–36.9; O2SAT 92–95; BMI 20.7
[2018-04-14 00:06] LABS: ALB/GLOB Ratio 1.3 RATIO (0.9-2.4); AST(SGOT) 18 U/L (15-37); Alanine Aminotransfer ALT/SGPT 25 U/L (13-56); Albumin, Serum 3.3 g/dL (3.2-5.0); Alkaline Phosphatase 90 U/L (45-117); Anion Gap 6 (5-15); BUN 28 mg/dL (7-18); BUN/Creat Ratio 46.7 RATIO (10-20); Calcium,Total 8.3 mg/dL (8.5-10.1); Chloride 109 mmol/L (98-107); EST Glomerular Filtration Rate 104 mL/min (>60); Est Glom Filt Rate - Afr Amer 125 mL/min (>60); Estimated Creatinine Clearance 36.55 ml/min; Globulin 2.6 g/dL (2.2-4.2); Glucose 123 mg/dL (74-106); Lipase 162 U/L (73-393); Potassium 3.7 mmol/L (3.5-5.1); Protein, Total 5.9 g/dL (6.4-8.2); Sodium Level 145 mmol/L (136-145)
[2018-04-14 00:58] LABS: Mucous, Urine 0 SEEN /hpf (<or=2+); Red Blood Cells-Urine 0 SEEN /hpf (0-5)
[2018-04-14 01:00] LABS: Color, Urine Yellow (Yellow); Glucose, Dipstick Normal (Normal); Ketone-Dipstick Negative (Negative); Leukocyte Esterase-Dipstick 500 /ul (Negative); Nitrite-Dipstick Negative (Negative); Occult Blood-Urine Negative /ul (Negative); Protein-Dipstick Negative (Negative); Specific Gravity, Urine 1.005 (1.002-1.030); Urine Bilirubin Dipstick Negative (Negative); Urine Clarity Clear (Clear); Urine Urobilinogen Normal (Normal)
[2018-04-14 01:08] LABS: White Blood Cells 5-10 SEEN /hpf (0-5)
[2018-04-14 01:09] LABS: Bacteria RARE /hpf (None Seen); Squamous Epithelial Cells - UA 0-5 SEEN /hpf (5-10)
--- NOTE | 2018-04-14 02:07 | PCM.HP.STD ---
Problem List (1) Ileus Status: Acute (2) Gastroenteritis Status: Acute (3) Cystitis Status: Acute History of Present Illness Date of Admission: 04/14/18 Chief Complaint: nausea, vomiting and abdominal pain The patient is a 77 year old F with a significant history of breast cancer status post bilateral mastectomy; non-Hodgkin's lymphoma who presented to the emergency department because of 1 day history of nausea,vomiting, diarrhea and abdominal pain. Associated with her symptoms is chills. His symptoms started after having a sandwich that she prepared from home. Although her also ate a sandwich he did not have any of these symptoms. At the emergency department CT of the abdomen was remarkable for an ileus. Also patient was found to have elevated white count of 17.9. For the patient had abnormal urinalysis. Remarkably patient denies any urinary symptoms. Past Medical History Past Medical History (Chronic Problems): Chronic Problems (Last Reviewed 04/14/18 @ 05:02 by Jonathan Hilario MD) Pneumothorax (Chronic) Non-Hodgkin lymphoma (Chronic) CML (chronic myelocytic leukemia) (Chronic) Weight loss (Chronic) COPD (chronic obstructive pulmonary disease) (Chronic) Medical History: Medical History (Last Reviewed 04/14/18 @ 05:06 by Jonathan Hilario MD) Nonrheumatic tricuspid valve regurgitation (Acute) I36.1 Nonrheumatic mitral valve regurgitation (Acute) I34.0 Major hemoptysis (Inactive) R04.2 Nausea & vomiting (Acute) R11.2 Pneumothorax (Chronic) J93.9 Non-Hodgkin lymphoma (Chronic) C85.90 CML (chronic myelocytic leukemia) (Chronic) C92.10 Weight loss (Chronic) COPD (chronic obstructive pulmonary disease) (Chronic) J44.9 CLL (chronic lymphocytic leukemia) (Inactive) C91.10 RLQ abdominal pain (Acute) R10.31 Cervical cancer C53.9 History of bilateral breast cancer Z85.3 Allergies shellfish derived Allergy (Severe, Verified 04/13/18 23:14) Anaphylaxis bacitracin Allergy (Verified 04/13/18 23:14) Rash codeine Allergy (Verified 04/13/18 23:14) Rash latex Allergy (Verified 04/13/18 23:14) IF PT USES LATEX GLOVES GETS RASH Home Medications: Ambulatory Orders Medication Instructions Recorded Albuterol IH (ProAir) [Proair Hfa 1 - 2 puff INHALATION Q6H PRN PRN 10/09/16 (SP)Vent Pts] Alendronate Sodium [Fosamax] 70 mg PO AVILES 10/09/16 Budesonide/Formoterol 160/4.5 2 puff INHALATION DAILY 10/09/16 [Symbicort 160/4.5 Mcg Inhaler (SP)] Calcium Carbonate [Calcium] 600 mg PO DAILY 10/09/16 Fluticasone 0.05% [Flonase Nasal 1 spray NASAL DAILY 10/09/16 [place]] Tiotropium Hext [Spiriva 18 MCG] 2 puff INHALATION DAILY 10/09/16 Meclizine HCl [Antivert] 25 mg PO 4X/DAY PRN PRN #20 tab 09/02/17 Surgical History: Surgical History (Last Reviewed 04/14/18 @ 05:06 by Jonathan Hilario MD) History of bladder surgery Z98.890 sling surgery for stress incontinence History of breast reconstruction Z98.82 Bilateral 02/2015 History of cataract surgery Z98.49 History of dilatation and curettage Z98.890 History of lung surgery Z98.890 Lt Lung Bronchial Artery embolization 2006 History of mastectomy Z90.10 bilateral 1982 Surgical History: herniorrhaphy, hysterectomy, mastectomy - Bilateral, - - left pulmonary artery embolization for [id number] Psychiatric History: No pertinent 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 Denies: Fever, Weight Change HEENT: Denies: Head Aches, Sinus Congestion, Sinus Drainage Cardiovascular: Denies: Chest Pain, Palpitations Respiratory: Denies: Cough, Shortness of breath at rest, Sputum production Gastrointestinal: Reports: Abdominal Pain, Diarrhea, Nausea, Vomiting Genitourinary: Denies: Dysuria Musculoskeletal: Denies: Joint Pain, Joint Tenderness Skin: Denies: Rash, Wounds Neurological: Denies: Numbness, Tingling, Focal weakness Psychiatric: Denies: Anxiety, Depression, Homicidal Ideations, Suicidal Ideations Hematologic/ Lymphatic: Denies: Easy Bruising, Easy Bleeding VTE Information - Inpt Only VTE Present on Admission: No VTE Mechan Device Prophylaxis: None VTE Pharm Prophylaxis ordered?: Yes Patient Problems: Active and Suspected Problems (Last Reviewed 04/14/18 @ 05:02 by Jonathan Hilario MD) Ileus (Acute) Gastroenteritis (Acute) Cystitis (Acute) - Physical Exam General: Alert, Oriented x3, Cooperative HEENT: Atraumatic, PERRLA, EOMI, Normocephalic Neck: Supple, No JVD, Negative Carotid Bruits Lungs: Clear to auscultation, Normal air movement Cardiovascular: Regular rate, No murmurs Abdomen: Bowel Sounds Present, Soft, Tender - Right lower quadrant Extremities: No edema, Capillary Refill Less than 3 Seconds Skin: No rashes, No breakdown Musculoskeletal: No Tenderness to Palpation of Joints or Extremities Neurological: Cranial nerves II-XII grossly intact Psych/Mental Status: Normal Affect, Appropriate Vital Signs Temp Pulse Resp BP Pulse Ox 96.6 F L 82 17 113/59 L 93 04/13/18 23:08 04/14/18 01:12 04/14/18 01:12 04/14/18 01:12 04/14/18 01:12 Oxygen Delivery Method Room Air Weight: 47.627 kg Body Mass Index (BMI) 19.8 Laboratory Tests Past 24 Hrs 04/13/18 04/13/18 04/14/18 23:35 23:35 00:47 WBC 17.9 H RBC 4.87 Hgb 15.1 H Hct 46.1 MCV 94.7 MCH 31.0 MCHC 32.8 RDW 14.8 H RDW Differential 49.3 H Plt Count 109 L MPV 11.8 Immature Gran % (Auto) 0.300 Neut % (Auto) 72.7 H Lymph % (Auto) 22.4 [place] % (Auto) 3.7 Eos % (Auto) 0.8 Baso % (Auto) 0.1 Absolute Neuts (auto) 13.0 H Absolute Lymphs (auto) 4.01 Total Counted Not Reportable Sodium 145 Potassium 3.7 Chloride 109 H Carbon Dioxide 30.0 Anion Gap 6 BUN 28 H Creatinine 0.60 Estim Creat Clear Calc 36.55 Est GFR (MDRD) Af Amer 125 Est GFR (MDRD) Non-Af 104 BUN/Creatinine Ratio 46.7 H Glucose 123 H Calcium 8.3 L Total Bilirubin 0.50 AST 18 ALT 25 Alkaline Phosphatase 90 Troponin I < 0.015 Total Protein 5.9 L Albumin 3.3 Globulin 2.6 Albumin/Globulin Ratio 1.3 Lipase 162 Urine Color Yellow Urine Clarity Clear Urine pH 7.0 Ur Specific [place] 1.005 Urine Protein Negative Urine Glucose (UA) Normal Urine Ketones Negative Urine Occult Blood Negative Urine Nitrite Negative Urine Bilirubin Negative Urine Urobilinogen Normal Ur Leukocyte Esterase 500 H Urine RBC 0 SEEN Urine WBC 5-10 SEEN Ur Squamous Epith Cells 0-5 SEEN Urine Bacteria RARE Urine Mucus 0 SEEN Assessment/Plan All Active Problems (Last Reviewed 04/14/18 @ 05:02 by Jonathan Hilario MD) Ileus (Acute) Gastroenteritis (Acute) Cystitis (Acute) Nonrheumatic tricuspid valve regurgitation (Acute) Nonrheumatic mitral valve regurgitation (Acute) Nausea & vomiting (Acute) RLQ abdominal pain (Acute) The patient is a 77 year old F with a significant history of breast cancer status post bilateral mastectomy; non-Hodgkin's lymphoma who presented to the emergency department because of 1 day history of nausea vomiting and abdominal pain; and found to have radiographic evidence of ileus and abnormal urinalysis as well as elevated white counts consistent with acute gastroenteritis. Acute gastroenteritis Her ileus is probably from her acute gastroenteritis. Differential diagnosis include bacterial gastroenteritis and viral gastroenteritis. Patient received ceftriaxone the emergency department for probable cystitis. We will continue ceftriaxone and will add Flagyl. We will get enteric stool pathogen and C. difficile. Supportive treatment with IV hydration with potassium supplementation; and IV antiemetics with Zofran. PRN Toradol for pain We will keep n.p.o. for now. Acute Cystitis Patient with abnormal urinalysis. However with no urinary symptoms but because of her abdominal symptoms and chills will treat. In any case patient is receiving ceftriaxone for abdominal infection and this should help with any cystitis. Ileus Likely secondary to acute gastroenteritis. Bowel rest. Management as an acute gastroenteritis. History of asthma Stable PRN albuterol and scheduled DuoNeb ordered. Pulmicort continued. Osteoporosis Alendronate continued. DVT prophylaxis Subcutaneous heparin. Code Visit Inpatient E&M: 27483 Init Hosp L3
--- NOTE | 2018-04-14 02:22 | ED.DCSUM_ITS ---
- ER Visit Summary Date of Service: 04/14/18 Chief Complaint: Vomiting and diarrhea History of Present Illness: The patient is a 77 F with vomiting and diarrhea for 1.5 hours. The patient also reports upper abdominal pain. Denies fevers. Denies any history of this in the past. She did have an upper respiratory infection last month. She is not currently on antibiotics. She has a history of non-Hodgkin's lymphoma and a remote history of breast cancer. Physical Examination: Afebrile and vital signs unremarkable. Heart regular. Lungs clear. Abdomen is tender in the epigastric region. No guarding or rebound. Skin appears normal. Test Results: EKG showed sinus rhythm at a rate of 72. Troponin normal. White count 17.9, hemoglobin 15.1, platelets 109. Chloride 109, glucose 123, BUN 28. Hepatic panel and lipase normal. Urinalysis shows 500 leukocyte esterase, 5-10 white cells, and rare bacteria. Culture pending. CT showed ileus and nonspecific incidental findings. Emergency Department Course and Treatment: Patient treated with fluids and Zofran while awaiting results. Patient's leukocytosis is not a new finding. She is aware of this. She has no signs of sepsis. She does have signs of a urine infection and was treated with Rocephin. Culture pending. Patient has an ileus pattern on CT. I am not sure if her UTI is contributing or if she has another viral illness which is also very likely. Given her age, symptoms, abnormal CT, I did call the hospitalist to admit for further care. Treatment Plan: As above Disposition: Admission Impression: 1. Ileus 2. Nausea vomiting and diarrhea 3. UTI This note was generated with [employer] dictation software. It may contain incorrect words, spelling, and punctuation that were not noted in review of the chart prior to signing ED Disposition - Plan for ED Patient: Referrals: Donnell Tse MD [Primary Care Provider] -
[2018-04-14] MEDS: Ceftriaxone 1 GM/50 ML BAG IV (02:40)
[2018-04-14] MEDS: Potassium Chloride 40 MEQ in 0.45% Normal Saline 1,000 ML 100 MEQ IV (05:10)
[2018-04-14] MEDS: Ketorolac 15 MG/ML Vial IV ×3 (05:10→18:48)
[2018-04-14] MEDS: Ipratropium/Albuterol Sulfate 3 ML AMPUL.NEB INHALATION ×3 (07:34→19:36)
[2018-04-14] MEDS: Budesonide Respules 0.5 MG/2 ML AMPUL.NEB. INHALATION ×2 (07:37→19:36)
[2018-04-14] MEDS: Fluticasone 0.05% 1 SPRAY NASAL.SRY NASAL (09:53)
[2018-04-14] MEDS: Heparin Injection (Vial) 5,000 UNIT/ML VIAL 5000 UNIT SC ×2 (09:54→22:10)
--- NOTE | 2018-04-14 11:11 | PCM.PN.BLA ---
Progress Note Patient seen and examined. She was admitted for nausea, vomiting and diarrhea which is attributed to gastroenteritis that led to ileus. CT scan abdomen reviewed. Today, she has no more nausea or vomiting, no more diarrhea. Denies any more abdominal pain. She not passing flatus, no bowel movement. Her vital signs are stable. Routine blood work was remarkable for leukocytosis, otherwise normal. Urinalysis was unremarkable. She is on IV Rocephin for probable acute cystitis. Her urinalysis revealed clear urine, negative for nitrites, there was 5-10 WBCs and rare bacteria. I doubt that she has acute cystitis. Urine culture is pending. She is on IV Flagyl empirically for gastroenteritis. This gastroenteritis is likely viral in etiology. Plan to DC IV Rocephin, continue empiric IV Flagyl, IV fluids, start clear liquids, collect stool for C. difficile and enteric pathogens, repeat CBC and BMP tomorrow morning.
[2018-04-14] MEDS: 0.9% Normal Saline 1,000 ML 75 ML IV (11:40)
--- NOTE | 2018-04-14 11:42 | CASEMGMT ---
Social Work Pt HCPOA is in electronic medical record under summary section. HCPOA is pt spouse Andre Lofton. SW met with pt who confirmed this is correct. There is not a copy of living will in medical record. Pt states she does have a living will and will request spouse brings in document when he visits pt next. MILDRED Arredondo
[2018-04-14] MEDS: 0.9% NaCl Peripheral Flush Adult/Peds IV ×2 (12:58→18:22)
--- NOTE | 2018-04-14 14:38 | CASEMGMT ---
RN CM Assessment Introduced role of RN CM to patient. Patient is alert, oriented and able to participate in RN CM Assessment. Care providers, pharmacy, and demographics verified. Presentation: Admitted for ileus, Gastroenteritis. CC: N/V, Abd Pain PCP: Donnell Tse Specialists: ENT- Dr Mondragon, ONC- Dr Mcmillan, Cardio- Dr Roper, Pulm- Dr Rahman. Most Dr's/care from [facility]. Preferred Pharmacy: [facility] Insurance: Medicare A&B, [place] Prescription Benefit: Yes LNOK: Andre Lofton Living Arrangements: Retired, Lives with in a Home. Independent with ambulation but recently d/t ear issue causing dizziness- no dz as of yet, patient has been ambulating with stand by assist. Independent with ADL's. capable of assisting with care needs if needed and has a Dtr Johanna Salas and her that live in [place] who could help. 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 Transportation: Patient normally drives but has been transporting lately d/t ear/dizziness issue. States to transport on DC or her Dtr can. DME: Has a Walker at home but does not use. CM encouraged to use if walking without and dizziness for safety/fall prevention. Has a Nebulizer- from [employer]. Denies Home Oxygen or CPAP. States no preference on DME Company. HHC: None in past, prefer to use agency her has in the past but unsure of name- has written down at home. SNF: None in past, prefer to use facility her has in the past but unsure of name- has written down at home DC PLAN: Home with , no anticipated needs. Radha Mccarthy RNCM
--- NOTE | 2018-04-14 23:16 | CT_ITS ---
HISTORY: N/V/D X 1.5 HOURS, HX NON-HODGKINS, BREAST, OVARIAN, CERVICAL CA TECHNIQUE: Helically acquired images were obtained of the abdomen and pelvis following IV contrast. A radiation dose optimization technique was used for this scan. IV Contrast dosage and agent: 100 cc Isovue-300 contrast Oral contrast: None. COMPARISON: 10/16/2016 FINDINGS: LOWER CHEST: Lung bases are clear. No cardiomegaly or pericardial effusion observed. Small hiatal hernia, unchanged. Scattered benign appearing hepatic cysts, unchanged. Negative gallbladder. No biliary dilatation. Normal spleen and pancreas. Bilateral renal excretion of contrast without evidence of hydronephrosis or suspicious renal lesion. Adrenal glands are not enlarged. Abdominal aorta is atherosclerotic. No ascites. Stable retroperitoneal lymph nodes which are not enlarged by CT criteria. GI tract: No obstruction. Increased fluid within the stomach, small bowel, and right colon in keeping with ileus. Diverticulosis coli. Pelvis: The uterus surgically absent. Urinary bladder appears normal. The pelvis shows no free fluid or lymphadenopathy. Bones: No acute osseous abnormality. CT/Abdomen/Pelvis W IV Cont ONLY IMPRESSION: 1. Nonspecific ileus with increased fluid within the stomach, small bowel, and my colon. No bowel obstruction seen. 2. Diverticulosis coli and additional chronic changes, as above. Individualized dose optimization techniques were used for this CT. at 0105 Reported and signed by: Milton Pires MD Electronically Signed: Milton Pires, at 1:04 EST Tel , Service support ,
[2018-04-15] MEDS: Ketorolac 15 MG/ML Vial IV ×3 (00:17→12:26)
[2018-04-15 03:27] VITALS: BP 135/84; PULSE 65; RESP 20; TEMP 36.7; O2SAT 95
[2018-04-15 03:41] VITALS: PULSE 76; RESP 17
[2018-04-15] MEDS: Albuterol 2.5 MG/3 ML VIAL.NEB. INHALATION (03:41)
[2018-04-15 06:14] LABS: Anion Gap 7 (5-15); BUN 12 mg/dL (7-18); BUN/Creat Ratio 28.2 RATIO (10-20); Calcium,Total 7.4 mg/dL (8.5-10.1); Chloride 119 mmol/L (98-107); Creatinine, Serum 0.42 mg/dL (0.55-1.02); EST Glomerular Filtration Rate 154 mL/min (>60); Est Glom Filt Rate - Afr Amer 186 mL/min (>60); Estimated Creatinine Clearance 36.68 ml/min; Glucose 90 mg/dL (74-106); Potassium 3.5 mmol/L (3.5-5.1); Sodium Level 150 mmol/L (136-145)
[2018-04-15 06:20] LABS: Absolute Lymphocyte Count 4.04 X10^3/ul (0.83-4.51); Absolute Neutrophil Count 3.4 X10^3/uL (2.0-7.7); Basophil# 0.01 X10^3/uL; Basophil% 0.1 % (0-1); Eosinophil# 0.26 X10^3/uL; Eosinophils% 3.3 % (0-5); Hematocrit 36.9 % (37-47); Lymphocyte # 4.04 X10^3/ul (4.0); Lymphocyte % 50.8 % (19-41); Mean Corp Hgb Conc 32.5 g/gl (32-36); Mean Corpuscular Hgb 31.3 pg (27.0-32.0); Mean Corpuscular Volume 96.1 fL (81-99); Mean Platelet Vol. 11.7 fl (6.2-12.0); Monocyte# 0.26 X10^3/uL; Monocyte% 3.3 % (0-10); Neutrophil # 3.37 X10^3/uL (2.7-7.7); Neutrophil % 42.4 % (47-70); Platelet Count 88 K/mm3 (150-450); RBC Distribution Width SD 52.8 fl (35.1-43.9); Red Blood Count 3.84 M/mm3 (4.2-5.4)
[2018-04-15 06:38] LABS: POSITIVE COUNT NO; POSITIVE DIFFERENTIAL NO; POSITIVE MORPHOLOGY NO
[2018-04-15 07:17] VITALS: PULSE 72; RESP 22; O2SAT 92
[2018-04-15] MEDS: Ipratropium/Albuterol Sulfate 3 ML AMPUL.NEB INHALATION (07:17)
[2018-04-15] MEDS: Budesonide Respules 0.5 MG/2 ML AMPUL.NEB. INHALATION (07:18)
[2018-04-15 10:20] VITALS: BP 122/86; PULSE 70; RESP 18; TEMP 36.8; O2SAT 97
[2018-04-15] MEDS: Fluticasone 0.05% 1 SPRAY NASAL.SRY NASAL (10:27)
[2018-04-15] MEDS: Heparin Injection (Vial) 5,000 UNIT/ML VIAL 5000 UNIT SC (10:28)
--- NOTE | 2018-04-15 11:42 | PCM.DC ---
- Discharge Diagnoses Current Active Problems: Current Active and Chronic Problems (Last Updated 04/14/18 @ 09:13 by Veronika Rivera MD) Ileus (Acute) Gastroenteritis (Acute) You will use the following diet at home:: Regular Your food should be the consistency of: Regular Discharge Activity: Return to Normal Activity Weight Bearing Status: Weight bearing as tolerated Call your doctor if you observe: Fever of 101 or Higher, Shortness of breath, Dizziness, Fainting spells, Chest pain, Increased palpitations (irregular heartbeat), Uncontrolled pain Instructions: ED Gastroenteritis Viral Allergies/Adverse Reactions: Allergies shellfish derived Allergy (Severe, Verified 04/13/18 23:14) Anaphylaxis bacitracin Allergy (Verified 04/13/18 23:14) Rash codeine Allergy (Verified 04/13/18 23:14) Rash latex Allergy (Verified 04/13/18 23:14) IF PT USES LATEX GLOVES GETS RASH Medications to take at Discharge Albuterol IH (ProAir) [Proair Hfa] 1 - 2 puff INHALATION Q6H PRN PRN 10/09/16 Alendronate Sodium [Fosamax] 70 mg PO AVILES 10/09/16 Budesonide/Formoterol 160/4.5 [Symbicort 160/4.5 Mcg Inhaler (SP)] 2 puff INHALATION BID 10/09/16 Calcium Carbonate [Calcium] 600 mg PO DAILY 10/09/16 Fluticasone 0.05% [Flonase Nasal [place]] 1 spray NASAL DAILY 10/09/16 Tiotropium [place] [Spiriva 18 MCG] 2 puff INHALATION DAILY 10/09/16 Meclizine HCl [Antivert] 25 mg PO 4X/DAY PRN PRN #20 tab 09/02/17 Primary Care Physician: Donnell Tse MD [Primary Care Provider] - Please follow up with your Primary Care Physician in: 1 week. Test Results: Test results from this visit will be discussed in further detail at your follow-up appointment, if applicable.
[2018-04-15 12:41] VITALS: BP 144/58; PULSE 85; RESP 18; TEMP 37.2; O2SAT 96
--- NOTE | 2018-04-15 14:27 | PCM.DC.SUM ---
Discharge Date and Diagnosis Date of Admission: 04/14/18 Date of Discharge: 04/15/18 - Primary Discharge Diagnosis #1 acute gastroenteritis, probably viral in etiology. #2 nonspecific ileus. - Secondary Discharge Diagnosis Chronic Problems (Last Updated 04/14/18 @ 09:13 by Veronika Rivera MD) Nonrheumatic tricuspid valve regurgitation (Chronic) Nonrheumatic mitral valve regurgitation (Chronic) Pneumothorax (Chronic) Non-Hodgkin lymphoma (Chronic) CML (chronic myelocytic leukemia) (Chronic) Weight loss (Chronic) COPD (chronic obstructive pulmonary disease) (Chronic) CLL (chronic lymphocytic leukemia) (Chronic) Hospital Course and Treatment Imaging Results: Clinical Impression(s) from Imaging Studies Abdomen/Pelvis CT 04/14/18 23:16 IMPRESSION: 1. Nonspecific ileus with increased fluid within the stomach, small bowel, and my colon. No bowel obstruction seen. 2. Diverticulosis coli and additional chronic changes, as above. Individualized dose optimization techniques were used for this CT. at 0105 Reported and signed by: Milton Pires MD Electronically Signed: Milton Pires, at 1:04 EST Tel , Service support , Operations: None Procedures: None Summary of Care Provided: Patient seen and examined on the day of discharge and appeared to be stable to be discharged home. She has no more nausea and vomiting, no more diarrhea. She has been tolerating full liquid diet. Her vital signs are stable. The patient is a 77 year old F admitted because of symptoms of nausea, vomiting and diarrhea and she was found to have gastroenteritis which is likely viral that led to nonspecific ileus. CT scan abdomen and pelvis with IV contrast revealed nonspecific ileus with increased fluid within the stomach, small and large bowel, there was no bowel obstruction. On admission, patient did have leukocytosis and other routine blood work was unremarkable. Urinalysis revealed no evidence of acute cystitis. She denied any urinary symptoms but urine culture preliminary report revealed staph species which I think it is a contamination. Patient has been afebrile, leukocytosis resolved. She was treated with IV fluids and started empirically on IV Flagyl. Her symptoms completely resolved with. She remained afebrile, leukocytosis back to normal. Patient tolerated full liquid diet and today, started on regular diet and she did very well. Patient discharged home in a stable medical condition, no antibiotic given upon discharge, continued on her chronic medications without any changes, recommended to ensure good hydration, recommended follow-up with PCP in 1 week. - Physical Exam General: Alert, Oriented x3, Cooperative, No apparent distress HEENT: Atraumatic, PERRLA, EOMI, Normocephalic Oral: Moist Mucosa, No Gingival or Mucosal Lesions/ Ulcerations Neck: Supple, No JVD, Negative Carotid Bruits, Trachea Midline, Thyroid Normal Size and Texture Lungs: Clear to auscultation, No rhonchi, No wheeze, No rales, Diminished Cardiovascular: Regular rate, Regular Rhythm, Normal S1, Normal S2, No murmurs Abdomen: Bowel Sounds Present, Soft, Non Tender, Non-Distended, No Hepato-splenomegaly Extremities: No clubbing, No cyanosis, No edema Skin: No rashes, No breakdown Lymphatic: No Cervical, Supraclavicular, or Inguinal Adenopathy Neurological: Cranial nerves II-XII grossly intact, Neuro grossly intact Psych/Mental Status: Normal Affect, Appropriate Vital Signs Temp Pulse Resp BP Pulse Ox 98.9 F 85 18 144/58 H 96 04/15/18 12:41 04/15/18 12:41 04/15/18 12:41 04/15/18 12:41 04/15/18 12:41 Oxygen Delivery Method Room Air Weight: 111 lb 8.862 oz Body Mass Index (BMI) 20.7 Intake and Output for Last 24 Hours 04/13/18 04/14/18 04/15/18 23:59 23:59 23:59 Intake Total 1603 / 1603 2118 / 2118 Output Total 200 / 200 1850 / 1850 Balance 1403 / 1403 268 / 268 Microbiology Past 72 Hours 04/14/18 00:47 Urine Culture - Preliminary Urine, Clean Catch Staphylococcus species Laboratory Tests Past 24 Hrs 04/15/18 04/15/18 05:50 05:50 WBC 8.0 RBC 3.84 L Hgb 12.0 Hct 36.9 L MCV 96.1 MCH 31.3 MCHC 32.5 RDW 15.0 H RDW Differential 52.8 H Plt Count 88 L MPV 11.7 Immature Gran % (Auto) 0.100 Neut % (Auto) 42.4 L Lymph % (Auto) 50.8 H [place] % (Auto) 3.3 Eos % (Auto) 3.3 Baso % (Auto) 0.1 Absolute Neuts (auto) 3.4 Absolute Lymphs (auto) 4.04 Total Counted Not Reportable Sodium 150 H Potassium 3.5 Chloride 119 H Carbon Dioxide 24.0 Anion Gap 7 BUN 12 Creatinine 0.42 L Estim Creat Clear Calc 36.68 Est GFR (MDRD) Af Amer 186 Est GFR (MDRD) Non-Af 154 BUN/Creatinine Ratio 28.2 H Glucose 90 Calcium 7.4 L Discharge Activity: Return to Normal Activity Weight Bearing Status: Weight bearing as tolerated Call your doctor if you observe: Fever of 101 or Higher, Shortness of breath, Dizziness, Fainting spells, Chest pain, Increased palpitations (irregular heartbeat), Uncontrolled pain Home Medications: Medications to take at Discharge Albuterol IH (ProAir) [Proair Hfa] 1 - 2 puff INHALATION Q6H PRN PRN 10/09/16 Alendronate Sodium [Fosamax] 70 mg PO AVILES 10/09/16 Budesonide/Formoterol 160/4.5 [Symbicort 160/4.5 Mcg Inhaler (SP)] 2 puff INHALATION BID 10/09/16 Calcium Carbonate [Calcium] 600 mg PO DAILY 10/09/16 Fluticasone 0.05% [Flonase Nasal [place]] 1 spray NASAL DAILY 10/09/16 Tiotropium [place] [Spiriva 18 MCG] 2 puff INHALATION DAILY 10/09/16 Meclizine HCl [Antivert] 25 mg PO 4X/DAY PRN PRN #20 tab 09/02/17 Primary Care Physician: Donnell Tse MD [Primary Care Provider] - Please follow up with your Primary Care Physician in: 1 week. Please Follow Up With: Donnell Tse MD Patient Instructions: ED Gastroenteritis Viral Disposition: Home Minutes spent on discharge:: 26 Patient Condition:: Stable Medical Necessity - Tobacco Use Smoking Status: Former smoker Meaningful Use Info Meaningful Use Diagnoses (Choose all that apply): None applicable Code Visit Inpatient E&M: 88641 Disch Hosp
--- NOTE | 2018-04-18 14:45 | CASEMGMT ---
RN CM DC PHONE CALL DC DATE: 04/13/18 DC DISPOSITION: Home LACE/STRATA: 10/25 Message left on pt's machine which had her name as identifier. Call back information given if pt had questions re: medications, f/u or dc instructions. Joanna SUNSHINEN RN ACM
== END 2018-04-15 12:51 | disposition home or self-care (01) | DRG 389 ==
LOC: ED 23:39 → MS3 04-14 02:44
PROVIDERS: Admitting Provider Hospitalist; Emergency Provider Emergency Medicine; Family Provider Family Medicine; PCP Family Medicine; Referring Provider Hospitalist; Visit Provider Hospitalist
DX: K56.7 Ileus, unspecified (principal); C85.90 Non-Hodgkin lymphoma, unspecified, unspecified site; C91.10 Chronic lymphocytic leukemia of B-cell type not having achieved remission; C92.10 Chronic myeloid leukemia, BCR/ABL-positive, not having achieved remission; A08.4 Viral intestinal infection, unspecified; J45.909 Unspecified asthma, uncomplicated; M81.0 Age-related osteoporosis without current pathological fracture; J44.9 Chronic obstructive pulmonary disease, unspecified; Z87.891 Personal history of nicotine dependence; Z90.13 Acquired absence of bilateral breasts and nipples; Z85.3 Personal history of malignant neoplasm of breast; Z79.83 Long term (current) use of bisphosphonates; I36.1 Nonrheumatic tricuspid (valve) insufficiency; I34.0 Nonrheumatic mitral (valve) insufficiency; R63.4 Abnormal weight loss; Z68.20 Body mass index [BMI] 20.0-20.9, adult
CPT/HCPCS: 36415; 74177; 80048; 80053; 81001; 83690; 84484; 85025; 87077; 87086; 87088; 87186; 93005; 94640; 97162; 97166; 97530; 97802; 99284; J7030; J7050; Q9967; A4216; J2405

== ENCOUNTER 2018-06-25 10:10 | Emergency (ER) | payer MEDICARE, OTHER, SELFPAY ==
[2018-04-14 04:35] VITALS: BMI 20.7
[2018-06-25 10:11] VITALS: BP 143/94; PULSE 68; RESP 17; TEMP 36.3; O2SAT 97; BMI 19.2
--- NOTE | 2018-06-25 10:37 | MRI_ITS ---
STUDY: MRI CERVICAL SPINE WITH AND WITHOUT CONTRAST REASON FOR EXAM: Female, 78 years old. NECK PAIN -- pain neck into bilat arms x 1 month, hx breast ca, non hodgkins lymphoma, leukemia. TECHNIQUE: Standardized fat and water weighted pulse sequences were obtained in the sagittal and axial following administration of 10 IV Dotarem. COMPARISON: None FINDINGS: Normal foramen magnum and brainstem-cervical cord junction. Normal craniovertebral junction. Normal anterior atlantoaxial articulation. Normal odontoid process. There is straightening of the normal cervical lordosis. C2-3: There is minimal disc space narrowing and endplate spondylosis. There is no significant disc herniation, central canal or foraminal stenosis. There is facet arthropathy with minimal anterolisthesis C3-4: There is minimal disc space narrowing and endplate spondylosis. There is no central canal stenosis. There is uncovertebral and facet pathology with moderate left foraminal stenosis. There is mild right foraminal stenosis. C4-5: There is severe disc space narrowing and endplates spondylosis. There is grade 1 retrolisthesis with severe central canal stenosis there is uncovertebral facet arthropathy with severe right and mild left foraminal stenosis C5-6: There is severe disc space narrowing and endplates spondylosis.. There is minimal grade 1 retrolisthesis. There is severe central canal stenosis. There is uncovertebral arthropathy with severe right and mild left foraminal stenosis. C6-7: There is mild disc space narrowing and endplates spondylosis. Mild disc osteophyte complex with mild central canal stenosis. Uncovertebral arthropathy with minimal right and moderate left foraminal stenosis. C7-T1: There is minimal disc space narrowing and endplate spondylosis. There is no significant disc herniation, central canal or foraminal stenosis. Normal cervical cord. Normal visualized soft tissue structures. MRI/Spine Cervical W/WO Contrast IMPRESSION: No demonstrated lesion/masses. Moderate/severe multilevel degenerative changes. Electronically Signed: Jose Alvarez MD at 14:32 EDT Tel , Service support ,
--- NOTE | 2018-06-25 10:44 | ED.DCSUM_ITS ---
- ER Visit Summary Date of Service: 06/25/18 Chief Complaint: Neck pain History of Present Illness: The patient is a 78 F who presents for several weeks of neck pain, worse over the last 3 days. Patient has a history of CLL and adult leukemia. She has been having worsening neck pain over the last few weeks and states that she is having excruciating pain at night now, causing her to be unable to sleep. She has been on a muscle relaxer that was prescribed by her primary care doctor, which will make her sleepy but is no longer helping with the pain. She denies any current numbness or weakness in the arms or legs. She states the pain is starting to radiate into her shoulders and on her back. She denies fever, chest pain, shortness of breath, abdominal pain, nausea or vomiting. No history of trauma. Patient also has a history of M?ni?re's disease and a meningioma. She has not been on any recent chemotherapy or radiation treatment. Physical Examination: Vital signs: afebrile, hemodynamically stable, no hypoxia on room air General: well nourished, well developed, in no distress Skin: warm, dry, no rash, no pallor HEENT: normocephalic and atraumatic; PERRL, EOMI, moist mucous membranes, diffuse tenderness in the neck region, no deformities, step-offs or point tende rness in the cervical spine. Patient is able to flex the neck and rotated back and forth. She is sitting against on upright bed to avoid neck extension Cardiovascular: regular rate and rhythm without murmurs, no peripheral edema, 2+ pulses all distal extremities Respiratory: No increased work of breathing, lungs are clear to auscultation bilaterally, no rales, rhonchi or wheezing Abdominal: Abdomen is soft, nontender with normoactive bowel sounds, no guarding or rebound, no masses MSK: Moves all extremities, no deformities, normal strength Neuro: Awake and alert, oriented ?4. No facial droop, sensation and motor function intact and symmetric Test Results: Abnormal Lab Results 06/25/18 06/25/18 06/25/18 10:55 10:55 10:55 WBC 14.3 H RBC 4.25 Hgb 13.4 Hct 39.2 MCV 92.2 MCH 31.5 MCHC 34.2 RDW 13.7 RDW Differential 45.5 H Plt Count 182 MPV 11.6 Immature Gran % (Auto) 0.200 Neut % (Auto) 65.1 Lymph % (Auto) 25.7 [place] % (Auto) 7.2 Eos % (Auto) 1.5 Baso % (Auto) 0.3 Absolute Neuts (auto) 9.3 H Absolute Lymphs (auto) 3.68 Total Counted Not Reportable ESR 30 Sodium 137 Potassium 3.6 Chloride 100 Carbon Dioxide 28.0 Anion Gap 9 BUN 32 H Creatinine 0.72 Estim Creat Clear Calc 35.98 Est GFR (MDRD) Af Amer 101 Est GFR (MDRD) Non-Af 84 BUN/Creatinine Ratio 44.4 H Glucose 85 Calcium 9.4 C-React Prot Ext Range 06/25/18 10:55 WBC RBC Hgb Hct MCV MCH MCHC RDW RDW Differential Plt Count MPV Immature Gran % (Auto) Neut % (Auto) Lymph % (Auto) [place] % (Auto) Eos % (Auto) Baso % (Auto) Absolute Neuts (auto) Absolute Lymphs (auto) Total Counted ESR Sodium Potassium Chloride Carbon Dioxide Anion Gap BUN Creatinine Estim Creat Clear Calc Est GFR (MDRD) Af Amer Est GFR (MDRD) Non-Af BUN/Creatinine Ratio Glucose Calcium C-React Prot Ext Range 65.10 H Clinical Impression(s) from Imaging Studies Cervical Spine MRI 06/25/18 10:37 IMPRESSION: No demonstrated lesion/masses. Moderate/severe multilevel degenerative changes. Electronically Signed: Jose Alvarez MD at 14:32 EDT Tel , Service support , Medications Given Discontinued Medications Sodium Chloride () 500 mls @ 1,000 mls/hr IV .Q30M CANDELARIA Stop: 06/25/18 11:14 Last Admin: 06/25/18 10:56 Dose: 1,000 mls/hr Morphine Sulfate () 2 mg IV X1 ONE Stop: 06/25/18 10:39 Last Admin: 06/25/18 10:57 Dose: 2 mg Ondansetron HCl (Zofran) 4 mg IV X1 ONE Stop: 06/25/18 10:39 Last Admin: 06/25/18 10:57 Dose: 4 mg Emergency Department Course and Treatment: Patient presents complaining of severe neck pain, worse at nighttime, and does have a history of cancer. Patient was given morphine and Zofran for the neck pain as well as IV fluids due to the use of contrast. Labs were performed showing a leukocytosis of 14 but no findings concerning for blood dyscrasia. Labs were remarkable for mild dehydration but no electrolyte derangements. ESR was normal and CRP was elevated. MRI was performed that showed no masses or lesions, no spinal cord compression. Patient did have multilevel degenerative changes, including areas of severe stenosis. Patient's pain was much improved after pain medication. On neuro exam, she had no focal deficits. She declined a prescription for pain medication and is going to continue using ibuprofen. She currently takes 400 mg twice daily and she is going to increase up to 4 times a day at that dose. Patient is going to follow-up with her primary care doctor. She was given a copy of the MRI results as well as a disc with the imaging. Patient was given return precautions of symptoms to watch for. Patient was discharged home well- appearing and neurologically intact. Treatment Plan: [] Disposition: [] Impression: Neck pain, degenerative changes of the cervical spine This note was generated with IAMINTO[employer] dictation software. It may contain incorrect words, spelling, and punctuation that were not noted in review of the chart prior to signing ED Disposition - Plan for ED Patient: Disposition: Home or Assisted Living Instructions: ED Neck Pain No Trauma Referrals: Donnell Tse MD [Primary Care Provider] - As soon as possible Additional Instructions: Please follow-up with your doctor as soon as possible to discuss further management of your neck pain. You may use your ibuprofen up to 4 times a day as needed for pain. If you have severe uncontrolled pain, develop any numbness or weakness in your arms or legs, lose the ability to control your bowels or bladder, or you are unable to have a bowel movement or urinate, please return immediately to the emergency department for another evaluation.
[2018-06-25] MEDS: Morphine 2 MG/ML Syringe IV (10:57)
[2018-06-25] MEDS: Ondansetron 4 MG/2 ML Vial IV (10:57)
[2018-06-25 11:23] LABS: Absolute Lymphocyte Count 3.68 X10^3/ul (0.83-4.51); Absolute Neutrophil Count 9.3 X10^3/uL (2.0-7.7); Basophil# 0.04 X10^3/uL; Basophil% 0.3 % (0-1); Eosinophil# 0.21 X10^3/uL; Eosinophils% 1.5 % (0-5); Hematocrit 39.2 % (37-47); Hemoglobin 13.4 g/dl (12.0-15.0); Lymphocyte # 3.68 X10^3/ul (4.0); Lymphocyte % 25.7 % (19-41); Mean Corp Hgb Conc 34.2 g/gl (32-36); Mean Corpuscular Hgb 31.5 pg (27.0-32.0); Mean Corpuscular Volume 92.2 fL (81-99); Mean Platelet Vol. 11.6 fl (6.2-12.0); Monocyte# 1.03 X10^3/uL; Monocyte% 7.2 % (0-10); Neutrophil # 9.31 X10^3/uL (2.7-7.7); Neutrophil % 65.1 % (47-70); Platelet Count 182 K/mm3 (150-450); RBC Distribution Width CV 13.7 % (11.6-14.6); RBC Distribution Width SD 45.5 fl (35.1-43.9); Red Blood Count 4.25 M/mm3 (4.2-5.4); White Blood Count 14.3 K/mm3 (4.4-11.0)
[2018-06-25 11:25] LABS: POSITIVE COUNT NO; POSITIVE DIFFERENTIAL NO; POSITIVE MORPHOLOGY NO
[2018-06-25 11:32] LABS: BUN 32 mg/dL (7-18); Creatinine, Serum 0.72 mg/dL (0.55-1.02); Estimated Creatinine Clearance 35.98 ml/min; Glucose 85 mg/dL (74-106)
[2018-06-25 11:33] LABS: Anion Gap 9 (5-15); BUN/Creat Ratio 44.4 RATIO (10-20); Calcium,Total 9.4 mg/dL (8.5-10.1); Chloride 100 mmol/L (98-107); EST Glomerular Filtration Rate 84 mL/min (>60); Est Glom Filt Rate - Afr Amer 101 mL/min (>60); Potassium 3.6 mmol/L (3.5-5.1); Sodium Level 137 mmol/L (136-145)
[2018-06-25 11:53] LABS: Erythrocyte Sedimentation Rate 30 mm/hr (0-30)
[2018-06-25 12:41] VITALS: BP 160/91; PULSE 67; O2SAT 97
[2018-06-25 15:27] VITALS: BP 161/92; PULSE 72; RESP 14
== END 2018-06-25 15:27 | disposition home or self-care (01) ==
PROVIDERS: Emergency Provider Emergency Medicine; Family Provider Family Medicine; PCP Family Medicine
DX: M47.812 Spondylosis without myelopathy or radiculopathy, cervical region (principal); M54.2 Cervicalgia; M48.02 Spinal stenosis, cervical region; E86.0 Dehydration; H81.09 Meniere's disease, unspecified ear; Z85.6 Personal history of leukemia
CPT/HCPCS: 72156; 80048; 85025; 85652; 86140; 96361; 96374; 96375; 99283; A9575; J7030; J7040; A4216; J2405

== ENCOUNTER 2019-04-19 11:50 | Inpatient (IN) | payer MEDICARE, OTHER, SELFPAY ==
[2018-11-25 08:34] VITALS: BMI 19.0
[2019-04-19] VITALS (14 sets, daily range): BP systolic 136–158; BP diastolic 75–99; PULSE 74–89; RESP 18–24; TEMP 36.4–36.9; O2SAT 80–99; BMI 18.8; BMI 18.9; BMI 19.5
--- NOTE | 2019-04-19 12:46 | RAD_ITS ---
EXAM DESCRIPTION: PORTABLE AP CHEST CLINICAL HISTORY: 78 years Female, GENERAL WEAKNESS AND NOT FEELING WELL, COUGH GENERAL WEAKNESS AND NOT FEELING WELL, COUGH COMPARISON: Previous portable chest obtained on 09/02/2017 FINDINGS: The thorax is intact. The heart and mediastinum appear to be within normal limits. The lungs appear to be well areated without evidence of pneumonic consolidation or pleural effusion. RAD/Chest 1 View (Portable) IMPRESSION: Normal portable chest. Electronically Signed: Andre Rivas, at 13:56 EST Tel , Service support ,
[2019-04-19 13:01] LABS: Absolute Lymphocyte Count 4.16 X10^3/uL (0.83-4.51); Absolute Neutrophil Count 5.8 X10^3/uL (2.0-7.7); Basophil# 0.02 X10^3/uL; Basophil% 0.2 % (0-1); Eosinophil# 0.03 X10^3/uL; Eosinophils% 0.3 % (0-5); Hemoglobin 14.1 g/dL (12.0-15.0); Lymphocyte # 4.16 X10^3/ul (4.0); Lymphocyte % 38.2 % (19-41); Mean Corp Hgb Conc 34.4 g/dL (32-36); Mean Corpuscular Hgb 31.2 pg (27.0-32.0); Mean Corpuscular Volume 90.7 fL (81-99); Mean Platelet Vol. 11.6 fl (6.2-12.0); Monocyte# 0.83 X10^3/uL; Monocyte% 7.6 % (0-10); NRBC Flagged by Analyzer 0 % (0-5); Neutrophil % 53.2 % (47-70); POSITIVE MORPHOLOGY YES; Platelet Count 131 K/mm3 (150-450); RBC Distribution Width CV 13.2 % (11.6-14.6); RBC Distribution Width SD 44.6 fl (35.1-43.9); Red Blood Count 4.52 M/mm3 (4.2-5.4); White Blood Count 10.9 K/mm3 (4.4-11.0)
[2019-04-19] MEDS: Ipratropium/Albuterol Sulfate 3 ML AMPUL.NEB INHALATION ×2 (13:01→19:02)
[2019-04-19 13:08] LABS: Differential Indicated SCAN CRITERIA MET
[2019-04-19 13:10] LABS: ALB/GLOB Ratio 0.9 RATIO (0.9-2.4); AST(SGOT) 54 U/L (15-37); Alanine Aminotransfer ALT/SGPT 45 U/L (13-56); Albumin, Serum 3.3 g/dL (3.2-5.0); Alkaline Phosphatase 71 U/L (45-117); Anion Gap 9 (5-15); BUN 23 mg/dL (7-18); BUN/Creat Ratio 28.2 RATIO (10-20); Chloride 100 mmol/L (98-107); Creatinine, Serum 0.82 mg/dL (0.55-1.02); EST Glomerular Filtration Rate 72 mL/min (>60); Est Glom Filt Rate - Afr Amer 87 mL/min (>60); Estimated Creatinine Clearance 41.79 ml/min; Globulin 3.6 g/dL (2.2-4.2); Glucose 101 mg/dL (74-106); Protein, Total 6.9 g/dL (6.4-8.2); Sodium Level 136 mmol/L (136-145)
[2019-04-19] MEDS: 0.9% Normal Saline 1,000 ML 1000 ML IV (13:11)
[2019-04-19 13:28] LABS: Reactive Lymphocyte 1+
--- NOTE | 2019-04-19 15:04 | ED.VIS.GEN ---
History of Present Illness Chief Complaint: Cough Informant: Patient Narrative: Patient has COPD. She is here with her who has influenza she had similar symptoms as her . She also has cough and some difficulty breathing. She has some myalgias but no fever, she has some chills. No chest pain, she does not have oxygen at home. Past Medical History - Allergies and Home Meds Allergies/Adverse Reactions: Allergies shellfish derived Allergy (Severe, Verified 04/19/19 11:50) Anaphylaxis bacitracin Allergy (Verified 04/19/19 11:50) Rash codeine Allergy (Verified 04/19/19 11:50) Rash latex Allergy (Verified 04/19/19 11:50) IF PT USES LATEX GLOVES GETS RASH Primary Care Physician: Donnell Tse MD [Primary Care Provider] - Prior records reviewed: Yes Past Medical History: - - COPD Surgical History: herniorrhaphy, hysterectomy, mastectomy - Bilateral, - - left pulmonary artery embolization for [id number] Smoking Status: Former smoker - Family History Maternal Family History: Family History (Last Reviewed 11/25/18 @ 08:36 by Thao Archer) Father Abdominal aortic aneurysm (AAA) Family History: Reports: No pertinent history Review of Systems General: Reports: Chills Eyes: Denies: Visual changes - bilaterally Cardiovascular: Denies: Chest pain Respiratory: Reports: Dyspnea, Cough Gastrointestinal: Denies: Abdominal pain, Vomiting Genitourinary: Denies: Dysuria Musculoskeletal: Reports: Myalgias. Denies: Neck pain, Back pain Skin: Denies: Rash Neurological: Denies: Headache Hematologic: Denies: Easy bruising Physical Exam Vital Signs/Narrative: Vital Signs Temp Pulse Resp BP Pulse Ox 04/19/19 14:36 98.3 F 86 20 H 146/86 H 98 04/19/19 14:04 80 18 136/80 H 95 04/19/19 13:01 89 18 04/19/19 12:33 78 21 H 141/91 H 96 04/19/19 11:51 98.3 F 88 22 H 139/93 H 89 General: Well nourished Head: Normocephalic ENT: Dry mucous membranes Neck: Supple Cardiovascular: Regular rate, Regular rhythm Respiratory: Wheezing, - - Has bilateral wheezing, however she is speaking in full sentences. She is on 2 L of oxygen. Abdomen: Soft Back: Nontender, Normal Inspection Extremities: Nontender Skin: Normal color Neurological: Alert, Oriented x3 Diagnostic/Tx/Re-eval Chest X-Ray - ED: 1 View, Read by Radiologist, Normal - Rhythm Strip Rhythm Strip: Sinus Rhythm - EKG Initial EKG Interpretation: - - Normal sinus rhythm. Normal MI and QTc intervals. Grossly unremarkable EKG TURP rated by emergency doctor - Medical Decision Making Patient is hypoxic on room air, she was started on oxygen, her who has similar symptoms tested positive for influenza, she tested negative however she has the same symptoms at the peak of influenza season, I will treat with Tamiflu she received nebulizer due to her hypoxia I will admit her. ED Disposition - Plan for ED Patient: Disposition: [facility] Diagnosis: Influenza, Hypoxia Referrals: Donnell Tse MD [Primary Care Provider] -
--- NOTE | 2019-04-19 15:08 | PCM.HP.STD ---
Problem List (1) Hypoxia Status: Acute (2) Influenza Status: Acute (3) COPD exacerbation Status: Acute (4) HLD (hyperlipidemia) Status: Chronic Qualifiers: Hyperlipidemia type: unspecified Qualified Code(s): E78.5 - Hyperlipidemia, unspecified (5) Essential hypertension Status: Chronic (6) Non-Hodgkin lymphoma Status: Chronic Qualifiers: Non-Hodgkin lymphoma type: unspecified type Lymphoma site: unspecified region Qualified Code(s): C85.90 - Non-Hodgkin lymphoma, unspecified, unspecified site (7) CML (chronic myelocytic leukemia) Status: Chronic (8) CLL (chronic lymphocytic leukemia) Status: Chronic History of Present Illness Date of Admission: 04/19/19 Chief Complaint: Cough, dyspnea, malaise The patient is a 78 y/o F w/ PMHx: Chronic COPD, Former Tobacco use, HTN, HLD, Hx of CLL, Hx of CML, Hx of Non-Hodgkin's Lymphoma, Hx Breast CA BL s/p BL mastectomy with reconstruction, Hx Cervical CA who presents to the [facility] ED on 04/19/19 with history of onset congestion, rhinorrhea, sore throat, fatigue, malaise, arthralgias myalgias progressively worsening over the last several days with onset of wheezing and increased productive cough with subjective fevers and chills prompting eventual ED presentation with also spouse with similar symptoms who was diagnosed in the ED on day of ED presentation with acute influenza A. Work-up in the ED included T 98.3, heart rate 88, BP 139/93, respiratory rate initially 22, initially 89% on room air with improvement to 95% on 2 L nasal cannula, CBC with WC 10.9, hemoglobin 14.1, platelet 131 without market shift, CMP potassium 3.0, BUN/creatinine 23/0.82, AST/ALT 54/45, troponin less than 0.015, rapid influenza negative, chest x-ray with no acute cardiopulmonary findings. In the ED patient ministered normal saline, Tamiflu as well as DuoNeb therapy. also present in the ED and tested positive for influenza A therefore rapid influenza negative considered likely a false negative. Past Medical History Past Medical History (Chronic Problems): Chronic Problems (Last Reviewed 11/25/18 @ 08:36 by Thao Archer) HLD (hyperlipidemia) (Chronic) Meniere disease (Chronic) Essential hypertension (Chronic) Nonrheumatic tricuspid valve regurgitation (Chronic) Nonrheumatic mitral valve regurgitation (Chronic) Pneumothorax (Chronic) Non-Hodgkin lymphoma (Chronic) CML (chronic myelocytic leukemia) (Chronic) Weight loss (Chronic) COPD (chronic obstructive pulmonary disease) (Chronic) CLL (chronic lymphocytic leukemia) (Chronic) Medical History: Medical History (Last Reviewed 11/25/18 @ 08:36 by Thao Archer) Meniere disease (Chronic) H81.09 Essential hypertension (Chronic) I10 Nonrheumatic tricuspid valve regurgitation (Chronic) I36.1 Nonrheumatic mitral valve regurgitation (Chronic) I34.0 Pneumothorax (Chronic) J93.9 Non-Hodgkin lymphoma (Chronic) C85.90 CML (chronic myelocytic leukemia) (Chronic) C92.10 Weight loss (Chronic) COPD (chronic obstructive pulmonary disease) (Chronic) J44.9 CLL (chronic lymphocytic leukemia) (Chronic) C91.10 Cervical cancer C53.9 History of bilateral breast cancer Z85.3 Allergies shellfish derived Allergy (Severe, Verified 04/19/19 11:50) Anaphylaxis bacitracin Allergy (Verified 04/19/19 11:50) Rash codeine Allergy (Verified 04/19/19 11:50) Rash latex Allergy (Verified 04/19/19 11:50) IF PT USES LATEX GLOVES GETS RASH Home Medications: Ambulatory Orders Medication Instructions Recorded Albuterol Inhaler [Ventolin Hfa 1 - 2 puff INHALATION Q6H PRN PRN 04/19/19 (SP)] Alendronate Sodium [Fosamax] 70 mg PO FR 04/19/19 Budesonide/Formoterol 160/4.5 2 puff INHALATION BID 04/19/19 [Symbicort 160/4.5 Mcg Inhaler (SP)] Calcium Carbonate [Calcium] 500 mg PO DAILY 04/19/19 Fluticasone Propionate [Flonase 1 spray NS DAILY 04/19/19 Allergy Relief] Tiotropium Hunter [Spiriva 18 MCG] 1 puff INHALATION DAILY 04/19/19 Triamterene/Hctz 37.5/25Mg 1 tab PO DAILY 04/19/19 [Triamterene-Hctz 37.5-25 mg Tb] Surgical History: Surgical History (Last Reviewed 11/25/18 @ 08:36 by Thao Archer) History of bladder surgery Z98.890 sling surgery for stress incontinence History of breast reconstruction Z98.82 Bilateral 02/2015 History of cataract surgery Z98.49 History of dilatation and curettage Z98.890 History of lung surgery Z98.890 Lt Lung Bronchial Artery embolization 2006 History of mastectomy Z90.10 bilateral 1982 Surgical History: herniorrhaphy, hysterectomy, mastectomy - Bilateral, - - Left pulmonary artery embolization for [id number], bladder surgery, bilateral breast surgery with mastectomies and reconstructive surgery, cataract surgery, D&C, hernia repair. 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 Tobacco Use: Non-smoker Alcohol: Occasional - She drinks 1 glass of wine nightly. Drugs: None - *Family History Maternal Family History: Family History (Last Reviewed 11/25/18 @ 08:36 by Thao Archer) Father Abdominal aortic aneurysm (AAA) History Items: Dementia - Mother with history of Alzheimer's dementia. Paternal Family History: Family History (Last Reviewed 11/25/18 @ 08:36 by Thao Archer) Father Abdominal aortic aneurysm (AAA) History Items: - - Father with a history of AAA and heart disease. Review of Systems Constitutional: Reports: Anorexia, Chills, Fever, Malaise, Weakness, Fatigue. Denies: Weight Change HEENT: Reports: Nasal Congestion, Sinus Congestion, Sinus Drainage, Sore Throat. Denies: Head Aches Cardiovascular: Denies: Chest Pain, Palpitations Respiratory: Reports: Cough, Shortness of Breath, Shortness of breath at rest, Sputum production, Wheezing Gastrointestinal: Denies: Abdominal Pain, Nausea, Vomiting Genitourinary: Denies: Dysuria Musculoskeletal: Reports: Joint Pain, Muscle pain. Denies: Joint Tenderness Skin: Denies: Rash, Wounds Neurological: Denies: Numbness, Tingling, Focal weakness Psychiatric: Denies: Anxiety, Depression, Homicidal Ideations, Suicidal Ideations Hematologic/ Lymphatic: Reports: Easy Bruising, Easy Bleeding VTE Information - Inpt Only VTE Present on Admission: No VTE Mechan Device Prophylaxis: SCD's VTE Pharm Prophylaxis ordered?: Yes Patient Problems: Active and Suspected Problems (Last Reviewed 11/25/18 @ 08:36 by Thao Archer) Influenza (Acute) Hypoxia (Acute) COPD exacerbation (Acute) Subjective: Seated upright in ED bed, fatigued and ill-appearing. Objective: Physical Examination: General: awake, alert, oriented x 3 and cooperative, seated upright in the ED bed, fatigued and ill-appearing. Skin: normal color, turgor, no icterus, cyanosis. HEENT: AT/NC, EOMI, PERRLA, dry MM, no carotid bruits or JVD noted. Lungs: Diffusely diminished breath sounds, greater bases, mildly increased effort, diffuse soft end expiratory wheezing, coughing bouts with attempted increased effort, no obvious rhonchi or rales. Heart: Regular rate and rhythm; no gallop, rub audible. Abdomen: soft, thin mildly cachectic habitus, NTTP, ND, normal BS, no HSM. Extremities: no cyanosis, clubbing, or edema. Neurological: patient awake, alert, oriented x 3; cognitive function intact; pupils equally reactive to light and accomodation; cranial nerves II-XII grossly normal, moving all 4 extremities, no focal deficits, strength severely global decrease secondary to acute presentation. Psychiatric: affect appears fatigued, ill-appearing, no acute evidence of depressive or anxiety feelings. - Physical Exam Vitals/I&O's: Vital Signs Temp Pulse Resp BP Pulse Ox 98.3 F 86 20 H 146/86 H 98 04/19/19 14:36 04/19/19 14:36 04/19/19 14:36 04/19/19 14:36 04/19/19 14:36 Oxygen Flow Rate (L/min) 2 Oxygen Delivery Method Nasal Cannula Weight: 100 lb Body Mass Index (BMI) 18.8 Intake and Output for Last 24 Hours 04/17/19 04/18/19 04/19/19 23:59 23:59 23:59 Intake Total 1000 / 1000 Balance 1000 / 1000 Microbiology Past 72 Hours 04/19/19 13:05 Mucosa - Nose Influenza Types A,B Direct FA (NIKKI) - Final Laboratory Results 04/19/19 12:25: WBC 10.9, RBC 4.52, Hgb 14.1, Hct 41.0, MCV 90.7, MCH 31.2, MCHC 34.4, RDW Std Deviation 44.6 H, RDW Coeff of Anderson 13.2, Plt Count 131 L, MPV 11.6, Immature Gran % (Auto) 0.500, Neut % (Auto) 53.2, Lymph % (Auto) 38.2, Parke % (Auto) 7.6, Eos % (Auto) 0.3, Baso % (Auto) 0.2, Absolute Neuts (auto) 5.8, Absolute Lymphs (auto) 4.16, Nucleated RBC % 0, Reactive Lymphocytes 1+ 04/19/19 12:25: Sodium 136, Potassium 3.0 L, Chloride 100, Carbon Dioxide 27.0, Anion Gap 9, BUN 23 H, Creatinine 0.82, Estim Creat Clear Calc 41.79, Est GFR (MDRD) Af Amer 87, Est GFR (MDRD) Non-Af 72, BUN/Creatinine Ratio 28.2 H, Glucose 101, Calcium 9.0, Total Bilirubin 0.60, AST 54 H, ALT 45, Alkaline Phosphatase 71, Troponin I < 0.015, Total Protein 6.9, Albumin 3.3, Globulin 3.6, Albumin/Globulin Ratio 0.9 Assessment/Plan All Active Problems (Last Reviewed 11/25/18 @ 08:36 by Thao Archer) Influenza (Acute) Hypoxia (Acute) COPD exacerbation (Acute) Ileus (Acute) Gastroenteritis (Acute) The patient is a 78 y/o F w/ PMHx: Chronic COPD, Former Tobacco use, HTN, HLD, Hx of CLL, Hx of CML, Hx of Non-Hodgkin's Lymphoma, Hx Breast CA BL s/p BL mastectomy with reconstruction, Hx Cervical CA who presents to the [facility] ED on 04/19/19 with history of onset congestion, rhinorrhea, sore throat, fatigue, malaise, arthralgias myalgias progressively worsening over the last several days with onset of wheezing and increased productive cough with subjective fevers and chills prompting eventual ED presentation with also spouse with similar symptoms who was diagnosed in the ED on day of ED presentation with acute influenza A. 1. Hypoxia secondary to Acute on Chronic COPD Exacerbation secondary to General Malaise, Cough, Fever, General Debility secondary to Presumed Influenza A Viral Syndrome: CXR in the ED w/ no acute cardiopulmonary findings. Admission CBC w/ WBC 10.9 with no market left shift. Rapid influenza was negative however her was also evaluated in the ED with similar symptoms and tested influenza A positive therefore presumed that she unfortunately had a false negative testing. Will admit to medical surgical floor given improved vital signs, maintain on oxygen with wean as tolerated, continue ATC duonebs, PRN albuterol, discussed initiation of Solu-Medrol with ED physician with 125 mg IV x1 in the ED and continuation upon admission, HOB, IS parameters. 2. Hypokalemia: Admission K+ 3.0, supplementation given, repeat level in AM. 3. Hypertension: Given presentation and need for hydration we will temporarily hold patient diuretic, gently hydrate, resume once appropriate with PRN IV hydralazine in interim. 4. Hyperlipidemia: Not on regimen, defer to outpatient. 5. Hx of CLL, CML, Non-Hodgkin's Lymphoma, Breast CA, Cervical CA: Patient of note s/p BL s/p BL mastectomy with reconstruction, remission per patient report. 6. Severe protein calorie malnutrition: Evidenced per reduced BMI, habitus with obvious muscle and fat loss, nutrition consulted. 7. Former tobacco usage: Encouraged continued tobacco cessation. 8. DVT prophylaxis: SCDs, Lovenox. 9. CODE status: Patient HCPOA is her and living will is for her in place although her states it is not, encouraged discussions with case management and updating of their material. Discussed CODE status at length including difference between FULL code, DNR-CCA and DNR-CC status. Following discussions about the differences in these status, requested full CODE STATUS. Advanced Care Planning Face to Face Time: 16 minutes. Code Visit Inpatient E&M: 52540 Init Hosp L3 Procedures: 74915 Advncd Care Plan 30 Min
[2019-04-19] MEDS: MethylPREDNISolone 125 MG/2 ML Vial IV (15:25)
[2019-04-19] MEDS: Oseltamivir Phosphate 75 MG Capsule PO (15:25)
--- NOTE | 2019-04-19 15:51 | NURSING ---
MED SURG ACUTE INFLUENZA, HYPOXIA WHITE
[2019-04-19] MEDS: 0.9% Normal Saline 1,000 ML 100 ML IV (21:00)
[2019-04-19] MEDS: Oseltamivir Phosphate 30 MG Capsule PO (22:45)
[2019-04-19] MEDS: Famotidine 20 MG Tablet PO (22:45)
[2019-04-20] VITALS (10 sets, daily range): BP systolic 136–145; BP diastolic 77–99; PULSE 75–91; RESP 16–22; TEMP 36.4–36.6; O2SAT 93–97; BMI 19.5
--- NOTE | 2019-04-20 00:36 | NURSING ---
0025 Patient was up to bathroom with stand-by assist. Was short of breath. O2 sat was 85% on 2L NC. After she was settled back in bed, O2 sat climbed to 93% on 2L NC.
[2019-04-20 06:04] LABS: Absolute Lymphocyte Count 6.49 X10^3/uL (0.83-4.51); Absolute Neutrophil Count 6.4 X10^3/uL (2.0-7.7); Basophil# 0.01 X10^3/uL; Basophil% 0.1 % (0-1); Hematocrit 40.4 % (37-47); Hemoglobin 13.5 g/dL (12.0-15.0); Lymphocyte # 6.49 X10^3/ul (4.0); Lymphocyte % 49.3 % (19-41); Mean Corp Hgb Conc 33.4 g/dL (32-36); Mean Corpuscular Hgb 30.7 pg (27.0-32.0); Mean Corpuscular Volume 91.8 fL (81-99); Mean Platelet Vol. 11.5 fl (6.2-12.0); Monocyte% 1.5 % (0-10); NRBC Flagged by Analyzer 0 % (0-5); Neutrophil # 6.37 X10^3/uL (2.7-7.7); Neutrophil % 48.4 % (47-70); POSITIVE DIFFERENTIAL YES; Platelet Count 154 K/mm3 (150-450); RBC Distribution Width CV 13.3 % (11.6-14.6); RBC Distribution Width SD 45.6 fl (35.1-43.9); White Blood Count 13.2 K/mm3 (4.4-11.0)
[2019-04-20] MEDS: 0.9% Normal Saline 1,000 ML 100 ML IV ×3 (06:06→22:45)
[2019-04-20 06:08] LABS: Differential Indicated SCAN CRITERIA MET
[2019-04-20 06:27] LABS: Differential Comment SCANNED; Platelet Estimate ADEQUATE (ADEQ); Reactive Lymphocyte 1+
[2019-04-20 06:28] LABS: ALB/GLOB Ratio 0.8 RATIO (0.9-2.4); AST(SGOT) 46 U/L (15-37); Alanine Aminotransfer ALT/SGPT 45 U/L (13-56); Albumin, Serum 3.1 g/dL (3.2-5.0); Alkaline Phosphatase 73 U/L (45-117); Anion Gap 7 (5-15); BUN 20 mg/dL (7-18); BUN/Creat Ratio 32.2 RATIO (10-20); Calcium,Total 8.5 mg/dL (8.5-10.1); Chloride 108 mmol/L (98-107); Creatinine, Serum 0.62 mg/dL (0.55-1.02); EST Glomerular Filtration Rate 99 mL/min (>60); Est Glom Filt Rate - Afr Amer 120 mL/min (>60); Globulin 3.7 g/dL (2.2-4.2); Glucose 130 mg/dL (74-106); Potassium 3.8 mmol/L (3.5-5.1); Protein, Total 6.8 g/dL (6.4-8.2); Sodium Level 141 mmol/L (136-145)
[2019-04-20] MEDS: Ipratropium/Albuterol Sulfate 3 ML AMPUL.NEB INHALATION ×4 (07:12→18:49)
[2019-04-20] MEDS: Enoxaparin 40 MG/0.4 ML Syringe SC (08:12)
[2019-04-20] MEDS: guaiFENesin 10 ML UDC (200MG/10ML) 20 ML PO (08:12)
[2019-04-20] MEDS: Oseltamivir Phosphate 30 MG Capsule PO ×2 (08:12→22:45)
--- NOTE | 2019-04-20 11:30 | CASEMGMT ---
RN CM PIPING SUPERVISOR CM to room to meet with patient for initial transition planning/care coordination assessment. RN RONNELL introduced self and role at [facility]. Pt voices understanding and consents to assessment at this time. Pt sitting up in recliner chair in room, in no distress at this time. Pt is A/O at this time and answers all questions appropriately. Care providers, pharmacy, and demographics verified at this time. PCP: Dr Tse Specialists: Dr Mendosa--ENT, Dr Mcmillan-oncologist, Securities Underwriter--Dr Roper, Automatic Pinsetter Mechanic--Dr Varela Preferred Pharmacy: [facility] Retail Insurance: [facility], [place] Prescription Benefit: Yes Living Will/HPOA: Has Healthcare POA, who is her , Andre Lofton and copy found on file @ [facility]. States thought she had a LW done @ [facility] but records not found on file. Pt states would like to talk to to do new LW forms. Qing RODRIGUEZ, made aware. LNOK: , Andre Lofton. Daughter, Johanna Salas. Living Arrangements: Lives with her in one story home. Independent with ADL's and IADL's prior to admission. Daughter, Johanna and son-in-law live about a mile away. Transportation: Pt states does not drive d/t Meniere's disease. provides transportation. DME: States has the following DME: handicap bathroom with shower chair, rails/grab bars, hand held shower, and nebulizer. Has BSC and walker available to use if needed. Does not have Home O2. May need home oxygen at discharge. Given list of local DME companies. 1st preference is [employer]. HHC/SNF: No history of either. Pt wishes to return home at discharge. States she is not sure how well she will feel at discharge and if she may need/want HHC or OP therapy. CM to follow for home oxygen needs and any further discharge planning/needs. Pt voices no further concerns/needs at this time. Advised pt to ask for CM if any further questions/concerns/needs arise. Voices understanding. PLAN: Home. CM to follow for possible HHC or OP therapy. PT/OT evals pending. Follow for Home O2 needs. May need Home O2/ambulation testing completed prior to discharge. No preference of DME company Kimberli SUNSHINEN RN CM
[2019-04-20] MEDS: 0.9% Saline Lock 10 ML Syringe IV (13:32)
[2019-04-20 14:06] LABS: Pathologist Review Reviewed
--- NOTE | 2019-04-20 14:49 | CASEMGMT ---
Social Work Note SW received referral that pt would like to complete LW. Pt's HCPOA has already been completed and copy found on pt's chart. SW completed LW with pt. Original provided to pt and copy placed on pt's chart. Marie Hancock LEARNING AND DEVELOPMENT ASSOCIATE, CONTINUOUS DRYOUT OPERATOR HELPER
--- NOTE | 2019-04-20 14:50 | CASEMGMT ---
Social Work Note HCPOA found on pt's echart, JENNIFER printed copy off and placed on pt's chart. SW completed LW with pt. Copy placed on pt's chart. Marie Hancock DESK PEN SET ASSEMBLER, DENTAL SURGEON
--- NOTE | 2019-04-20 15:07 | CHAPLAIN ---
Type of Pastoral Visit _x__ Initial Visit ___ Follow-up Visit ___ On-call Visit ___ General Patient Visit ___ Spiritual Assessment ___ Family Conference ___ Bereavement ___ Rapid Response ___ Code Blue ___ Other (describe below) Pastoral Care Referral From _x__ Patient ___ Family ___ Nurse ___ Physician ___ Pneumatic Drum Sander ___ Management Services Technician ___ Other (describe below) Sacrament/Intervention _x__ Active listening ___ Anointing ___ Mormon ___ Bereavement ___ Communion ___ Tarsha exploration ___ ___ Life review _x__ Prayer ___ Reconciliation ___ Sacrament of Sick _x__ Supportive presence ___ Wedding ___ Other (describe below) Pastoral Comments
[2019-04-20] MEDS: Famotidine 20 MG Tablet PO (22:45)
[2019-04-20] MEDS: MELATONIN 3 MG TABLET PO (22:51)
[2019-04-21] VITALS (13 sets, daily range): BP systolic 127–148; BP diastolic 81–94; PULSE 69–86; RESP 20–28; TEMP 36.3–36.6; O2SAT 92–98
[2019-04-21] MEDS: Albuterol 2.5 MG/3 ML VIAL.NEB. INHALATION (01:02)
--- NOTE | 2019-04-21 01:16 | NURSING ---
0058 Patient put production line light saying she couldn't breathe, moderately anxious. She had just woken up and had to urinate. Despite being instructed to put on her call light before getting up, pt when to the bathroom by herself. Patient was at 92% on 3L NC, respirations 28. Parul, charge nurse, instructed patient to slow down her breathing and to breathe with pursed lips. As patient's respirations slowed, patient became less anxious. Pulse ox climbed to 94% on 3L NC. Respiratory called to give breathing treatment for wheezing in bases. After treatment, no wheezing auscultated. Fine crackles in bases. Bed alarm set.
[2019-04-21] MEDS: 0.9% Saline Lock 10 ML Syringe IV (05:18)
[2019-04-21] MEDS: Ipratropium/Albuterol Sulfate 3 ML AMPUL.NEB INHALATION ×3 (07:13→19:26)
[2019-04-21] MEDS: 0.9% Normal Saline 1,000 ML 100 ML IV ×2 (07:58→17:27)
[2019-04-21] MEDS: Enoxaparin 40 MG/0.4 ML Syringe SC (08:06)
[2019-04-21] MEDS: Oseltamivir Phosphate 30 MG Capsule PO ×2 (08:07→21:31)
[2019-04-21] MEDS: Acetaminophen 325 MG Tablet 650 MG PO (08:07)
[2019-04-21] MEDS: BENZOCAINE/MENTHOL 1 LOZENGE MUCOUS MEM (08:08)
--- NOTE | 2019-04-21 10:12 | PCM.PROGNOTE ---
Patient Problems: Active and Suspected Problems (Last Reviewed 11/25/18 @ 08:36 by Thao Archer) Influenza (Acute) Hypoxia (Acute) COPD exacerbation (Acute) Subjective: Patient was seen and examined today, she remains on O2 at 3 L via nasal cannula. She complains of shortness of breath with minimal ambulation, she denies any chest pain. Patient has a history of COPD and follows up with Dr. Varela at the [facility]. She states that over the past month she has noticed that she has become more short of breath and wondered whether she could benefit from oxygen. Patient was admitted 2 days ago with influenza A. Patient's daughter is in the room today and I discussed her medical care with her also. - Physical Exam Vitals/I&O's: Vital Signs Temp Pulse Resp BP Pulse Ox 97.7 F L 82 22 H 139/81 H 98 04/21/19 08:01 04/21/19 08:01 04/21/19 08:01 04/21/19 08:01 04/21/19 08:01 Oxygen Flow Rate (L/min) 3 Oxygen Delivery Method Nasal Cannula Weight: 46.856 kg Body Mass Index (BMI) 19.5 Intake and Output for Last 24 Hours 04/19/19 04/20/19 04/21/19 23:59 23:59 23:59 Intake Total 1300 / 1500 3995.00 / 3995.00 1120 / 1120 Output Total 250 / 250 300 / 300 Balance 1300 / 1500 3745.00 / 3745.00 820 / 820 General: Alert, Oriented x3, Cooperative, Well developed HEENT: Atraumatic, PERRLA, EOMI, Normocephalic Oral: Moist Mucosa Neck: Supple, No JVD, Trachea Midline, Thyroid Normal Size and Texture Lungs: Diminished, Wheezes - Scattered expiratory wheezes are noted bilaterally Cardiovascular: Regular rate, Regular Rhythm, Normal S1, Normal S2, No murmurs, PMI Normal, No rub noted Abdomen: Bowel Sounds Present, Soft, Non Tender, Non-Distended Extremities: No clubbing, No cyanosis, No edema, Capillary Refill Less than 3 Seconds Skin: No rashes, No breakdown Musculoskeletal: No Tenderness to Palpation of Joints or Extremities Neurological: Cranial nerves II-XII grossly intact, Neuro grossly intact, Sensory exam intact to light touch and pain, Coordination normal Psych/Mental Status: Normal Affect, Appropriate, Alert and oriented to time, place, person, mood and affect Microbiology Past 72 Hours 04/19/19 19:05 Mucosa - Nasopharyngeal Respiratory Panel (PCR) - Final Influenza A (Subtype H1) 04/19/19 13:05 Mucosa - Nose Influenza Types A,B Direct FA (NIKKI) - Final Laboratory Results 04/20/19 05:40: Diff Path Review Reviewed Current Medications Acetaminophen (Tylenol) 650 mg PO Q6H PRN PRN PRN Reason: Pain Score 1-10/Temp > 100.7 F Last Admin: 04/21/19 08:07 Dose: 650 mg Documented by: Al Hydroxide/Mg Hydroxide (Mylanta Ii) 30 ml PO Q6H PRN PRN PRN Reason: Gastric Burning Albuterol Sulfate (Ventolin Aerosols) 2.5 mg INHALATION Q2H PRN PRN PRN Reason: dyspnea, wheezing Last Admin: 04/21/19 01:02 Dose: 2.5 mg Documented by: Albuterol/Ipratropium (Duoneb) 3 ml INHALATION Q6HWA.RT CANDELARIA Enoxaparin Sodium (Lovenox) 40 mg SC DAILY [facility] Last Admin: 04/21/19 08:06 Dose: 40 mg Documented by: Famotidine (Pepcid) 20 mg PO QHS [facility] Last Admin: 04/20/19 22:45 Dose: 20 mg Documented by: Glucagon () 1 mg IM .X1 PRN PRN Reason: Hypoglycemia Guaifenesin (Robitussin) 20 ml PO Q4H PRN PRN PRN Reason: COUGH Last Admin: 04/20/19 08:12 Dose: 20 ml Documented by: Sodium Chloride () 1,000 mls @ 100 mls/hr IV .Q10H CANDELARIA Last Admin: 04/21/19 07:58 Dose: 100 mls/hr Documented by: Sodium Chloride () 250 mls @ 15 mls/hr IV .[id number] PRN PRN Reason: Saline Flush Magnesium Hydroxide (Milk Of Magnesia) 30 ml PO DAILY PRN PRN PRN Reason: Constipation Methylprednisolone (Solu-Medrol) 40 mg IV Q8 [facility] Last Admin: 04/21/19 05:05 Dose: 40 mg Documented by: Ondansetron HCl (Zofran) 4 mg IV Q8H PRN PRN PRN Reason: NAUSEA/VOMITING Oseltamivir Phosphate (Tamiflu) 30 mg PO BID CANDELARIA Stop: 04/24/19 10:01 Last Admin: 04/21/19 08:07 Dose: 30 mg Documented by: Sodium Chloride () 10 - 40 ml IV UD PRN PRN Reason: SALINE FLUSH Last Admin: 04/21/19 05:18 Dose: 10 ml Documented by: Throat Lozenges (Cepacol Sore Throat Lozenge) 1 lozenge MUCOUS MEM Q2H PRN PRN PRN Reason: SORE THROAT Last Admin: 04/21/19 08:08 Dose: 1 lozenge Documented by: Medical Necessity - Tobacco Use Smoking Status: Former smoker Tobacco Use: Non-smoker Assessment/Plan All Active Problems (Last Reviewed 11/25/18 @ 08:36 by Thao Archer) Influenza (Acute) Hypoxia (Acute) COPD exacerbation (Acute) Ileus (Acute) Gastroenteritis (Acute) #1 influenza A-continue Tamiflu #2 exacerbation of COPD secondary to influenza A infection-continue IV corticosteroids and aerosol treatments, I backed the patient's aerosol treatments down to every 6 hours due to complaints of nervousness and tremor with present aerosol treatments every 4 hours. I told her that she could ask for breathing treatments every 2 hours if necessary however. #3 hypoxia secondary to COPD and concurrent influenza A infection-most likely patient will need home O2 when she goes home #4 chronic lymphocytic leukemia #5 hyperlipidemia I will have pulmonary medicine see the patient to the rest of the daughter, she needs to establish care with a new electrician ship, she does not want to go back to Dr. Varela Code Visit Inpatient E&M: 25590 Subs Hosp L2
--- NOTE | 2019-04-21 12:24 | PCM.CONS.PUL ---
Reason for Consult Date of Consultation: 04/21/19 Reason for Consultation: COPD exacerbation History of Present Illness: The patient is a 78-year-old female, with a history as outlined below, who presented to the emergency department on April 19 with complaints of shortness of breath and cough. The patient has an apparent history of COPD of unknown severity, for which she follows with Dr. Varela at [facility]. She does have an approximate [id number] smoking history, having quit completely at the age of 47. She is currently prescribed Symbicort and as needed albuterol in her home environment. She does report having had pulmonary function studies completed through [facility] previously. She does not currently utilize supplemental oxygen at her baseline. On presentation to the emergency department, the patient was noted to be afebrile and hemodynamically stable. She was, nevertheless, saturating 89% on room air. Initial laboratory evaluation revealed no evidence of a leukocytosis. Chemistry profile was notable for a potassium of 3.0. Troponin was negative. Respiratory viral panel was positive for influenza A. Plain film chest x-ray revealed no acute cardiopulmonary process. The patient was subsequently admitted to the medical surgical floor, where she has been maintained on scheduled bronchodilators, Tamiflu and steroids. Past Medical History Past Medical History (Chronic Problems): Chronic Problems (Last Reviewed 11/25/18 @ 08:36 by Thao Archer) HLD (hyperlipidemia) (Chronic) Meniere disease (Chronic) Essential hypertension (Chronic) Nonrheumatic tricuspid valve regurgitation (Chronic) Nonrheumatic mitral valve regurgitation (Chronic) Pneumothorax (Chronic) Non-Hodgkin lymphoma (Chronic) CML (chronic myelocytic leukemia) (Chronic) Weight loss (Chronic) COPD (chronic obstructive pulmonary disease) (Chronic) CLL (chronic lymphocytic leukemia) (Chronic) Medical History: Medical History (Last Reviewed 11/25/18 @ 08:36 by Thao Archer) Meniere disease (Chronic) H81.09 Essential hypertension (Chronic) I10 Nonrheumatic tricuspid valve regurgitation (Chronic) I36.1 Nonrheumatic mitral valve regurgitation (Chronic) I34.0 Pneumothorax (Chronic) J93.9 Non-Hodgkin lymphoma (Chronic) C85.90 CML (chronic myelocytic leukemia) (Chronic) C92.10 Weight loss (Chronic) COPD (chronic obstructive pulmonary disease) (Chronic) J44.9 CLL (chronic lymphocytic leukemia) (Chronic) C91.10 Cervical cancer C53.9 History of bilateral breast cancer Z85.3 Allergies shellfish derived Allergy (Severe, Verified 04/19/19 11:50) Anaphylaxis bacitracin Allergy (Verified 04/19/19 11:50) Rash codeine Allergy (Verified 04/19/19 11:50) Rash latex Allergy (Verified 04/19/19 11:50) IF PT USES LATEX GLOVES GETS RASH Home Medications: Ambulatory Orders Medication Instructions Recorded Albuterol Inhaler [Ventolin Hfa 1 - 2 puff INHALATION Q6H PRN PRN 04/19/19 (SP)] Alendronate Sodium [Fosamax] 70 mg PO FR 04/19/19 Budesonide/Formoterol 160/4.5 2 puff INHALATION BID 04/19/19 [Symbicort 160/4.5 Mcg Inhaler (SP)] Calcium Carbonate [Calcium] 500 mg PO DAILY 04/19/19 Fluticasone Propionate [Flonase 1 spray NS DAILY 04/19/19 Allergy Relief] Tiotropium [place] [Spiriva 18 MCG] 1 puff INHALATION DAILY 04/19/19 Triamterene/Hctz 37.5/25Mg 1 tab PO DAILY 04/19/19 [Triamterene-Hctz 37.5-25 mg Tb] Surgical History: Surgical History (Last Reviewed 11/25/18 @ 08:36 by Thao Archer) History of bladder surgery Z98.890 sling surgery for stress incontinence History of breast reconstruction Z98.82 Bilateral 02/2015 History of cataract surgery Z98.49 History of dilatation and curettage Z98.890 History of lung surgery Z98.890 Lt Lung Bronchial Artery embolization 2006 History of mastectomy Z90.10 bilateral 1982 Surgical History: herniorrhaphy, hysterectomy, mastectomy - Bilateral, - - Left pulmonary artery embolization for [id number], bladder surgery, bilateral breast surgery with mastectomies and reconstructive surgery, cataract surgery, D&C, hernia repair. Psychiatric History: No pertinent psych hx [employer] History: cervical cancer Lives: Spouse/ Significant Other Smoking Status: Former smoker Tobacco Use: Non-smoker Alcohol: Occasional - She drinks 1 glass of wine nightly. Drugs: None - *Family History Maternal Family History: Family History (Last Reviewed 11/25/18 @ 08:36 by Thao Archer) Father Abdominal aortic aneurysm (AAA) History Items: Dementia - Mother with history of Alzheimer's dementia. Paternal Family History: Family History (Last Reviewed 11/25/18 @ 08:36 by Thao Archer) Father Abdominal aortic aneurysm (AAA) History Items: - - Father with a history of AAA and heart disease. Review of Systems Constitutional: Reports: Chills, Fever, Malaise, Fatigue Eyes: Denies: Blurred vision, Double vision HEENT: Denies: Head Aches, Sinus Congestion, Sinus Drainage Cardiovascular: Denies: Chest Pain, Palpitations Respiratory: Reports: Cough, Shortness of Breath Gastrointestinal: Denies: Abdominal Pain, Nausea, Vomiting Genitourinary: Denies: Dysuria Musculoskeletal: Reports: Muscle pain. Denies: Joint Pain, Joint Tenderness Skin: Denies: Rash, Wounds Neurological: Denies: Numbness, Tingling, Focal weakness Psychiatric: Denies: Anxiety, Depression, Homicidal Ideations, Suicidal Ideations Hematologic/ Lymphatic: Denies: Easy Bruising, Easy Bleeding Patient Problems: Active and Suspected Problems (Last Reviewed 11/25/18 @ 08:36 by Thao Archer) Influenza (Acute) Hypoxia (Acute) COPD exacerbation (Acute) Objective: The patient's most recent lab work, culture data and imaging studies have all been personally reviewed. - Physical Exam Vitals/I&O's: Vital Signs Temp Pulse Resp BP Pulse Ox 97.7 F L 82 22 H 139/81 H 98 04/21/19 08:01 04/21/19 08:01 04/21/19 08:01 04/21/19 08:01 04/21/19 08:01 Oxygen Flow Rate (L/min) 4 Oxygen Delivery Method Nasal Cannula Weight: 103 lb 4.797 oz Body Mass Index (BMI) 19.5 Intake and Output for Last 24 Hours 04/19/19 04/20/19 04/21/19 23:59 23:59 23:59 Intake Total 1300 / 1500 3995.00 / 3995.00 1120 / 1120 Output Total 250 / 250 300 / 300 Balance 1300 / 1500 3745.00 / 3745.00 820 / 820 General: Alert, Oriented x3, Cooperative, No apparent distress, - - Sitting in bedside recliner HEENT: Atraumatic, PERRLA, Normocephalic Oral: No Gingival or Mucosal Lesions/ Ulcerations Neck: Supple, No Nodes, Trachea Midline Lungs: Diminished, - - Faint end expiratory wheeze Cardiovascular: Regular rate, Regular Rhythm, Normal S1, Normal S2 Abdomen: Bowel Sounds Present, Soft, Non Tender Extremities: No clubbing, No cyanosis, No edema Skin: No breakdown Musculoskeletal: No Tenderness to Palpation of Joints or Extremities Lymphatic: No Cervical, Supraclavicular, or Inguinal Adenopathy Neurological: Cranial nerves II-XII grossly intact, Neuro grossly intact Psych/Mental Status: Alert and oriented to time, place, person, mood and affect Labs (Last 48 Hours) 04/19/19 04/19/19 04/19/19 12:25 12:25 12:25 WBC 10.9 RBC 4.52 Hgb 14.1 Hct 41.0 MCV 90.7 MCH 31.2 MCHC 34.4 RDW Std Deviation 44.6 H RDW Coeff of Anderson 13.2 Plt Count 131 L MPV 11.6 Immature Gran % (Auto) 0.500 Neut % (Auto) 53.2 Lymph % (Auto) 38.2 Cuming % (Auto) 7.6 Eos % (Auto) 0.3 Baso % (Auto) 0.2 Absolute Neuts (auto) 5.8 Absolute Lymphs (auto) 4.16 Nucleated RBC % 0 Differential Comment Diff Path Review Reactive Lymphocytes 1+ Platelet Estimate Sodium 136 Potassium 3.0 L Chloride 100 Carbon Dioxide 27.0 Anion Gap 9 BUN 23 H Creatinine 0.82 Estim Creat Clear Calc 41.79 Est GFR (MDRD) Af Amer 87 Est GFR (MDRD) Non-Af 72 BUN/Creatinine Ratio 28.2 H Glucose 101 Calcium 9.0 Magnesium 2.0 Total Bilirubin 0.60 AST 54 H ALT 45 Alkaline Phosphatase 71 Troponin I < 0.015 Total Protein 6.9 Albumin 3.3 Globulin 3.6 Albumin/Globulin Ratio 0.9 04/20/19 04/20/19 05:40 05:40 WBC 13.2 H RBC 4.40 Hgb 13.5 Hct 40.4 MCV 91.8 MCH 30.7 MCHC 33.4 RDW Std Deviation 45.6 H RDW Coeff of Anderson 13.3 Plt Count 154 MPV 11.5 Immature Gran % (Auto) 0.700 Neut % (Auto) 48.4 Lymph % (Auto) 49.3 H Cuming % (Auto) 1.5 Eos % (Auto) 0.0 Baso % (Auto) 0.1 Absolute Neuts (auto) 6.4 Absolute Lymphs (auto) 6.49 H Nucleated RBC % 0 Differential Comment SCANNED Diff Path Review Reviewed Reactive Lymphocytes 1+ Platelet Estimate ADEQUATE Sodium 141 Potassium 3.8 Chloride 108 H Carbon Dioxide 26.0 Anion Gap 7 BUN 20 H Creatinine 0.62 Estim Creat Clear Calc 35.40 Est GFR (MDRD) Af Amer 120 Est GFR (MDRD) Non-Af 99 BUN/Creatinine Ratio 32.2 H Glucose 130 H Calcium 8.5 Magnesium Total Bilirubin 0.60 AST 46 H ALT 45 Alkaline Phosphatase 73 Troponin I Total Protein 6.8 Albumin 3.1 L Globulin 3.7 Albumin/Globulin Ratio 0.8 L Microbiology 04/19/19 19:05 Mucosa - Nasopharyngeal Respiratory Panel (PCR) - Final Influenza A (Subtype H1) 04/19/19 13:05 Mucosa - Nose Influenza Types A,B Direct FA (NIKKI) - Final Clinical Impression(s) from Imaging Studies Chest X-Ray 04/19/19 12:46 IMPRESSION: Normal portable chest. Electronically Signed: Andre Rivas, at 13:56 EST Tel , Service support , Current Medications Acetaminophen (Tylenol) 650 mg PO Q6H PRN PRN PRN Reason: Pain Score 1-10/Temp > 100.7 F Last Admin: 04/21/19 08:07 Dose: 650 mg Documented by: Al Hydroxide/Mg Hydroxide (Mylanta Ii) 30 ml PO Q6H PRN PRN PRN Reason: Gastric Burning Albuterol Sulfate (Ventolin Aerosols) 2.5 mg INHALATION Q2H PRN PRN PRN Reason: dyspnea, wheezing Last Admin: 04/21/19 01:02 Dose: 2.5 mg Documented by: Albuterol/Ipratropium (Duoneb) 3 ml INHALATION Q6HWA.RT CANDELARIA Enoxaparin Sodium (Lovenox) 40 mg SC DAILY [facility] Last Admin: 04/21/19 08:06 Dose: 40 mg Documented by: Famotidine (Pepcid) 20 mg PO QHS CANDELARIA Last Admin: 04/20/19 22:45 Dose: 20 mg Documented by: Glucagon () 1 mg IM .X1 PRN PRN Reason: Hypoglycemia Guaifenesin (Robitussin) 20 ml PO Q4H PRN PRN PRN Reason: COUGH Last Admin: 04/20/19 08:12 Dose: 20 ml Documented by: Sodium Chloride () 1,000 mls @ 100 mls/hr IV .Q10H [facility] Last Admin: 04/21/19 07:58 Dose: 100 mls/hr Documented by: Sodium Chloride () 250 mls @ 15 mls/hr IV .[id number] PRN PRN Reason: Saline Flush Magnesium Hydroxide (Milk Of Magnesia) 30 ml PO DAILY PRN PRN PRN Reason: Constipation Methylprednisolone (Solu-Medrol) 40 mg IV Q8 [facility] Last Admin: 04/21/19 05:05 Dose: 40 mg Documented by: Ondansetron HCl (Zofran) 4 mg IV Q8H PRN PRN PRN Reason: NAUSEA/VOMITING Oseltamivir Phosphate (Tamiflu) 30 mg PO BID [facility] Stop: 04/24/19 10:01 Last Admin: 04/21/19 08:07 Dose: 30 mg Documented by: Sodium Chloride () 10 - 40 ml IV UD PRN PRN Reason: SALINE FLUSH Last Admin: 04/21/19 05:18 Dose: 10 ml Documented by: Throat Lozenges (Cepacol Sore Throat Lozenge) 1 lozenge MUCOUS MEM Q2H PRN PRN PRN Reason: SORE THROAT Last Admin: 04/21/19 08:08 Dose: 1 lozenge Documented by: Assessment/Plan All Active Problems (Last Reviewed 11/25/18 @ 08:36 by Thao Archer) Influenza (Acute) Hypoxia (Acute) COPD exacerbation (Acute) Ileus (Acute) Gastroenteritis (Acute) RECOMMENDATIONS: 1. Agree with continuing scheduled bronchodilators and steroids. 2. Continue Tamiflu x5 days. 3. Wean supplemental oxygen to maintain saturations at or above 90%. 4. Perform walking oximetry study prior to consideration for discharge home. 5. Outpatient pulmonary follow-up in 2 weeks. Recommend repeat pulmonary function studies. IMPRESSIONS: 1. Acute hypoxemic respiratory insufficiency Appears secondary to underlying COPD with exacerbation due to influenza A infection. Agree with continuing Tamiflu, with plans to complete a 5-day course. Continue steroids as ordered. Recommend transitioning to prednisone with plans for a taper at discharge. Continue bronchodilators. Perform walking oximetry study prior to consideration for discharge home. The patient may in fact have a supplemental oxygen need upon discharge. She should follow-up in the pulmonary medicine clinic within 2 weeks with our nurse practitioner. 2. History of non-Hodgkin's lymphoma/hypertension/hyperlipidemia/tobacco dependency in remission Complicates care, management, recovery and prognosis. Continue home medications as indicated. This note was generated with [employer]Crossing dictation software. It may contain incorrect words, spelling, and punctuation that were not noted in checking the note before signing. Code Visit Inpatient E&M: 63255 Init Hosp L3
--- NOTE | 2019-04-21 15:40 | CASEMGMT ---
SHANTELL REYNAGA in to follow up with patient regarding discharge planning. Patient will probably need home oxygen at discharge. Therapy recommending HHC at discharge. Patient had reviewed list and would like [employer] for DME and [facility]. SHANTELL REYNAGA sent referral to [facility] and they are able to accept.
[2019-04-21] MEDS: Famotidine 20 MG Tablet PO (21:31)
[2019-04-22] VITALS (8 sets, daily range): BP systolic 128–140; BP diastolic 70–86; PULSE 79–93; RESP 20; TEMP 36.5–36.7; O2SAT 85–97
[2019-04-22] MEDS: Ipratropium/Albuterol Sulfate 3 ML AMPUL.NEB INHALATION ×3 (00:47→13:14)
[2019-04-22] MEDS: 0.9% Normal Saline 1,000 ML 100 ML IV (03:08)
[2019-04-22] MEDS: Albuterol 2.5 MG/3 ML VIAL.NEB. INHALATION (05:33)
[2019-04-22] MEDS: Enoxaparin 40 MG/0.4 ML Syringe SC (09:04)
[2019-04-22] MEDS: Oseltamivir Phosphate 30 MG Capsule PO (09:05)
--- NOTE | 2019-04-22 11:54 | DCINST_ITS ---
- Discharge Diagnoses Current Active Problems: Current Active and Chronic Problems (Last Reviewed 11/25/18 @ 08:36 by Thao Archer) Influenza (Acute) Hypoxia (Acute) HLD (hyperlipidemia) (Chronic) COPD exacerbation (Acute) You will use the following diet at home:: No restrictions Your food should be the consistency of: Regular Your liquids should be the consistency of: Regular/Thin Discharge Activity: Return to Normal Activity Weight Bearing Status: Full weight bearing Additional Instructions: Use oxygen at 3 L/min via nasal cannula at all times Allergies/Adverse Reactions: Allergies shellfish derived Allergy (Severe, Verified 04/19/19 11:50) Anaphylaxis bacitracin Allergy (Verified 04/19/19 11:50) Rash codeine Allergy (Verified 04/19/19 11:50) Rash latex Allergy (Verified 04/19/19 11:50) IF PT USES LATEX GLOVES GETS RASH Medications to take at Discharge Alendronate Sodium [Fosamax] 70 mg PO FR 04/19/19 Budesonide/Formoterol 160/4.5 [Symbicort 160/4.5 Mcg Inhaler (SP)] 2 puff INHALATION BID 04/19/19 Calcium Carbonate [Calcium] 500 mg PO DAILY 04/19/19 Fluticasone Propionate [Flonase Allergy Relief] 1 spray NS DAILY 04/19/19 Tiotropium [place] [Spiriva 18 MCG] 1 puff INHALATION DAILY 04/19/19 Triamterene/Hctz 37.5/25Mg [Triamterene-Hctz 37.5-25 mg Tb] 1 tab PO DAILY 04/19/19 Albuterol Inhaler [Ventolin Hfa] 2 puff INHALATION 4X/DAY #1 inhaler 04/22/19 Loperamide [Imodium] 2 mg PO Q4H PRN PRN capsule 04/22/19 Oseltamivir Phosphate [Tamiflu] 30 mg PO BID #3 cap 04/22/19 Prednisone 10 mg PO UD #14 tab 04/22/19 The following prescriptions were given: Prednisone 10 mg PO UD #14 tab [facility] Oseltamivir Phosphate [Tamiflu] 30 mg PO BID #3 cap [facility]: [facility] Albuterol Inhaler [Ventolin Hfa] 2 puff INHALATION 4X/DAY #1 inhaler Transmission Status: Pending to [facility] Primary Care Physician: Donenll Tse MD [Primary Care Provider] - Please follow up with your Primary Care Physician in: in one week Test Results: Test results from this visit will be discussed in further detail at your follow- up appointment, if applicable. Please Follow Up With: Conrad Antunez, When: In 2 weeks-call for appointment
--- NOTE | 2019-04-22 12:15 | CM.UR ---
Notified [facility]--on-call center of needed O2. Spoke with Rajeev. Nurse on floor agreed to fax the clinical and order to [employer] number. Chencho Benton RN, [facility].
[2019-04-22] MEDS: 0.9% Saline Lock 10 ML Syringe IV (14:54)
--- NOTE | 2019-04-23 10:27 | DS.PCM_ITS ---
Discharge Date and Diagnosis Date of Admission: 04/19/19 Date of Discharge: 04/22/19 - Primary Discharge Diagnosis #1 influenza A #2 exacerbation of COPD secondary to influenza A infection #3 hypoxia secondary to COPD and concurrent influenza A infection #4 chronic lymphocytic leukemia #5 hyperlipidemia - Secondary Discharge Diagnosis Chronic Problems (Last Reviewed 11/25/18 @ 08:36 by Thao Archer) HLD (hyperlipidemia) (Chronic) Meniere disease (Chronic) Essential hypertension (Chronic) Nonrheumatic tricuspid valve regurgitation (Chronic) Nonrheumatic mitral valve regurgitation (Chronic) Pneumothorax (Chronic) Non-Hodgkin lymphoma (Chronic) CML (chronic myelocytic leukemia) (Chronic) Weight loss (Chronic) COPD (chronic obstructive pulmonary disease) (Chronic) CLL (chronic lymphocytic leukemia) (Chronic) Hospital Course and Treatment Operations: None Procedures: None Summary of Care Provided: The patient is a 78 year old F seen in the emergency room at [facility] with a chief complaint of shortness of breath. Patient was found to be hypoxic on room air, work-up in the emergency room included a chest x-ray that was unremarkable, patient's white blood cell count was normal at 10.9, and potassium was low at 3. Patient was admitted to [place] [address], nasal swab resulted positive for influenza A, patient was maintained on IV corticosteroids and aggressive aerosol treatments. Attempts were made to wean the patient's oxygen off but these were unsuccessful. Patient was seen in consultation by pulmonary medicine. On 04/21/2019, patient was seen and examined: On examination she appeared in good health and spirits. Vital signs as documented. Skin warm and dry and without overt rashes. Neck without JVD. Lungs clear. Heart exam notable for regular rhythm, normal sounds and absence of murmurs, rubs or gallops. Abdomen unremarkable and without evidence of organomegaly, masses, or abdominal aortic enlargement. Extremities nonedematous. Neuro: Cranial nerves II through XII are grossly intact, no focal motor deficits were noted, sensation to light touch and pinprick is intact. Psych: Patient is alert and oriented x3, she does not appear anxious or depressed On 04/21/2019, patient's pulse ox was checked on room air-at rest it was 90%, ambulating on room air it was 85%. Patient was 91% on 3 L ambulating, portable oxygen was set up for the patient, patient is expected to use portable oxygen outside the home and use the oxygen inside her home. On 04/21/2019, patient was discharged to home in stable condition. - Physical Exam Vitals/I&O's: Vital Signs Temp Pulse Resp BP Pulse Ox 97.7 F L 88 20 H 140/86 H 93 04/22/19 12:15 04/22/19 13:14 04/22/19 13:14 04/22/19 12:15 04/22/19 12:15 Oxygen Flow Rate (L/min) 3 Oxygen Delivery Method Nasal Cannula Weight: 46.856 kg Body Mass Index (BMI) 19.5 Intake and Output for Last 24 Hours 04/21/19 04/22/19 04/23/19 23:59 23:59 23:59 Intake Total 3020 / 3320 2418.33 / 2418.33 Output Total 1200 / 1200 400 / 400 Balance 1820 / 2120 2018.33 / 2018.33 Microbiology Past 72 Hours 04/21/19 11:10 Stool Enteric Bacteriology - Final 04/21/19 11:10 Stool C. difficile DNA Amplification - Final 04/19/19 19:05 Mucosa - Nasopharyngeal Respiratory Panel (PCR) - Final Influenza A (Subtype H1) Discharge Activity: Return to Normal Activity Weight Bearing Status: Full weight bearing Home Medications: Medications to take at Discharge Alendronate Sodium [Fosamax] 70 mg PO FR 04/19/19 Budesonide/Formoterol 160/4.5 [Symbicort 160/4.5 Mcg Inhaler (SP)] 2 puff INHALATION BID 04/19/19 Calcium Carbonate [Calcium] 500 mg PO DAILY 04/19/19 Fluticasone Propionate [Flonase Allergy Relief] 1 spray NS DAILY 04/19/19 Tiotropium [place] [Spiriva 18 MCG] 1 puff INHALATION DAILY 04/19/19 Triamterene/Hctz 37.5/25Mg [Triamterene-Hctz 37.5-25 mg Tb] 1 tab PO DAILY 04/19/19 Albuterol Inhaler [Ventolin Hfa] 2 puff INHALATION 4X/DAY #1 inhaler 04/22/19 Loperamide [Imodium] 2 mg PO Q4H PRN PRN cap 04/22/19 Oseltamivir Phosphate [Tamiflu] 30 mg PO BID #3 cap 04/22/19 Prednisone 10 mg PO UD #14 tab 04/22/19 Following Prescrptions Were Given to Patient: Prednisone 10 mg PO UD #14 tab Transmission Status: Received by [facility] Oseltamivir Phosphate [Tamiflu] 30 mg PO BID #3 cap Transmission Status: Received by [facility] Albuterol Inhaler [Ventolin Hfa] 2 puff INHALATION 4X/DAY #1 inhaler Transmission Status: Received by [facility] Primary Care Physician: Donnell Tse MD [Primary Care Provider] - Please follow up with your Primary Care Physician in: in one week Please Follow Up With: Conrad Antunez DO When: In 2 weeks-call for appointment Disposition: Home Minutes spent on discharge:: 33 Patient Condition:: Stable Medical Necessity - Tobacco Use Smoking Status: Former smoker Tobacco Use: Non-smoker Meaningful Use Info Meaningful Use Diagnoses (Choose all that apply): None applicable Code Visit Inpatient E&M: 21015 Disch Hosp
--- NOTE | 2019-04-24 15:33 | CASEMGMT ---
Case Management DC F/u Call: DC Date: 05/21/2019 DC Diagnosis: #1 influenza A #2 exacerbation of COPD secondary to influenza A infection #3 hypoxia secondary to COPD and concurrent influenza A infection #4 chronic lymphocytic leukemia #5 hyperlipidemia DC Disposition: Home with Home O2-[facility], [facility] HHC-Therapy Lace/Strata: 12/25 Called patient listed cell phone on demographics, no answer, Vm did not identify correct patient and therefore no VM was left. Radha Mccarthy RNCM
== END 2019-04-22 15:16 | disposition home or self-care (01) | DRG 193 ==
LOC: ED 15:10 → MS3 15:34
PROVIDERS: Admitting Provider Family Medicine; Emergency Provider Emergency Medicine; PCP Family Medicine; Visit Provider Family Medicine
DX: J10.1 Influenza due to other identified influenza virus with other respiratory manifestations (principal); E43 Unspecified severe protein-calorie malnutrition; J44.1 Chronic obstructive pulmonary disease with (acute) exacerbation; Z68.1 Body mass index [BMI] 19.9 or less, adult; C91.10 Chronic lymphocytic leukemia of B-cell type not having achieved remission; C85.90 Non-Hodgkin lymphoma, unspecified, unspecified site; E87.6 Hypokalemia; R09.02 Hypoxemia; I10 Essential (primary) hypertension; E78.5 Hyperlipidemia, unspecified; I36.1 Nonrheumatic tricuspid (valve) insufficiency; Z87.891 Personal history of nicotine dependence; Z85.3 Personal history of malignant neoplasm of breast
CPT/HCPCS: 36415; 71045; 80053; 83735; 84484; 85025; 87177; 87209; 87493; 87506; 87633; 87804; 94640; 94667; 94668; 97162; 97166; 97530; 97802; 99284; J7030; A4216

== ENCOUNTER → 2019-05-15 08:52 | Outpatient (CLI) | payer MEDICARE, OTHER, SELFPAY ==
[2019-05-02 10:48] VITALS: BMI 19.5
[2019-05-15 09:00] VITALS: PULSE 67; PULSE 83; PULSE 86; PULSE 89; PULSE 91; PULSE 92; PULSE 95; O2SAT 87; O2SAT 89; O2SAT 90; O2SAT 91; O2SAT 96; O2SAT 99
--- NOTE | 2019-05-15 09:48 | CPS ---
Patient arrived with with an O2 tank but currently not wearing it. Patient and said she has only been wearing it at night and have been tracking SpO2 multiple times a day. states her SpO2 is normally mid 90's Patient's pulse ox on RA resting was 97-99%. Patient walked the entire test on RA and stayed above 89% until the end of test at the 6 minute mark anthony. SpO2 at that time was 87%. Patient stopped and rested and was able to come up to a SpO2 of 91%. Patient did state that she did feel severe SOB at that time. I asked the patient if she was willing to walk a little further with the oxygen and she agreed. She walked an additional 3 minutes and her pulse ox stayed above 93%. Kristie [facility]
--- NOTE | 2019-05-15 11:54 | WT_ITS ---
PSN 6 Minute Walk Test - 6 Minute Walk Test 6 Minute Walk Test: 6 Minute Walk Test PSN:6-Minute Walk Test Start: 05/15/19 09:46 Freq: Status: Active Protocol: [id number].6MINW Document 05/15/19 09:00 CATARINO (Rec: 05/15/19 10:02 CATARINO [id number]) 6 Minute Walk Test Date Performed 05/15/19 Time Performed 09:00 Height 5 ft 1 in Weight: 100 lb Weight in Pounds 100.[address]: Sheba Damian Assistive device used: None Pre-test Oxygen Delivery Method Room Air Pulse Ox (%) 99 Pulse Rate (60-100 beats/min) 67 Dyspnea Bill Scale (0-10) 0 Exertion Bill Scale (6-20) 6 1st minute Oxygen Delivery Method Room Air Pulse Ox (%) 96 Pulse Rate (60-100 beats/min) 83 2nd minute Oxygen Delivery Method Room Air Pulse Ox (%) 90 Pulse Rate (60-100 beats/min) 86 3rd minute Oxygen Delivery Method Room Air Pulse Ox (%) 91 Pulse Rate (60-100 beats/min) 89 4th minute Oxygen Delivery Method Room Air Pulse Ox (%) 89 Pulse Rate (60-100 beats/min) 92 5th minute Oxygen Delivery Method Room Air Pulse Ox (%) 91 Pulse Rate (60-100 beats/min) 95 6th minute Oxygen Delivery Method Room Air Pulse Ox (%) 87 Pulse Rate (60-100 beats/min) 89 Dyspnea Bill Scale (0-10) 5 Exertion Bill Scale (6-20) 13 Post-test Oxygen Flow Rate (L/min) (L/min) 2 Oxygen Delivery Method Nasal Cannula Pulse Ox (%) 96 Pulse Rate (60-100 beats/min) 91 Full Laps Walked 17 Partial Lap, Number of Tiles Walked 0 Total Distance Walked (ft) 1003 05/15/19 09:48 Cardiopulmonary Services by Molly Garner Patient arrived with with an O2 tank but currently not wearing it. Patient and said she has only been wearing it at night and have been tracking SpO2 multiple times a day. states her SpO2 is normally mid 90's Patient's pulse ox on RA resting was 97-99%. Patient walked the entire test on RA and stayed above 89% until the end of test at the 6 minute mark anthony. SpO2 at that time was 87%. Patient stopped and rested and was able to come up to a SpO2 of 91%. Patient did state that she did feel severe SOB at that time. I asked the patient if she was willing to walk a little further with the oxygen and she agreed. She walked an additional 3 minutes and her pulse ox stayed above 93%. Kristie [facility] Initialized on 05/15/19 09:48 - END OF NOTE - Interpretation Interpretation: The patient ambulated 1003 feet over the course of 6 minutes beginning on room air without assistive devices or breaks. Pretesting oxygen saturation was noted to be 99% on room air. With ambulation, the candy oxygen saturation was 87% at minute 6 of testing. 2 L/min of supplemental oxygen was applied and the patient was able to complete the remainder of the test while maintaining oxygen saturations within appropriate limits. - Recommendations Recommendations: 2 L/min of supplemental oxygen should be utilized with exertion.
== END ==
LOC: PSN 08:52
PROVIDERS: PCP Family Medicine; Referring Provider Nurse Practitioner Acute Care; Visit Provider Nurse Practitioner Acute Care
DX: J44.1 Chronic obstructive pulmonary disease with (acute) exacerbation (principal)
CPT/HCPCS: 94618

== ENCOUNTER → 2019-09-07 10:40 | Outpatient (CLI) | payer MEDICARE, OTHER, SELFPAY ==
[2019-05-02 10:48] VITALS: BMI 19.5
[2019-06-01 07:49] VITALS: BMI 19.5
--- NOTE | 2019-09-08 08:53 | PFT ---
INTRODUCTION: The patient is a 79-year-old female that presents for pulmonary function studies secondary to a diagnosis of shortness of breath. Respiratory therapy reports good patient effort. Bronchodilators were used during testing. INTERPRETATION: Forced expiration spirometry demonstrates the presence of a moderately severe large airways obstructive ventilatory defect. There was no significant response to aerosolized bronchodilators. Spirograms are of fair quality and do not plateau indicating slow emptying of the lungs. Body plethysmography was performed and reveals an elevated TLC and RV, indicative of underlying hyperinflation and air trapping. Diffusing capacity by single breath CO is within normal limits. IMPRESSION: Irreversible moderately severe large airways obstructive ventilatory defect with associated hyperinflation and air trapping. Diffusing capacity was preserved.
== END ==
PROVIDERS: PCP Family Medicine; Referring Provider Nurse Practitioner Acute Care; Visit Provider Nurse Practitioner Acute Care
DX: J44.9 Chronic obstructive pulmonary disease, unspecified (principal)
CPT/HCPCS: 94060; 94726; 94729

== ENCOUNTER → 2019-09-25 11:57 | Outpatient (CLI) | payer MEDICARE, OTHER, SELFPAY ==
[2019-06-01 07:49] VITALS: BMI 19.5
--- NOTE | 2019-09-25 12:47 | PR.ITP_ITS ---
General Information - General Information Admitting Diagnosis: MODERATE TO SEVER GOLD CLASSIFICATION II COPD Gold Classification:: GOLD 2: Moderate - PFT FEV1:: 1.03 - 09/07/2019 FVC:: 2.35 FEV1/FVC%:: 44 - Education/Goals Barriers to Learning: Vision Impairment Individual Counseling: Initial Assessment: Dyspnea control techniques at rest, a ctivity, and ADLs, Exacerbation prevention & management, O2, Rx, system, safety, ADL management and pacing, Nutrition & weight management, Home exercise plan & guidelines Patient Goals: Increase endurance/stamina: Initial Assessment, Return to recreation/hobby: Initial Assessment, Control panic/anxiety: Initial Assessment, Return to work: Initial Assessment, Improve diet and nutrition: Initial Assessment, Symptom management: Initial Assessment, Take medications correctly: Initial Assessment, Improve weight: Initial Assessment Exercise - Initial Assessment - Visit Date of Eval: 09/25/19 - Problem/Goals Problems: Deconditioning Goals:: Aerobic exercise 30-60 mins x 9 weeks - Physician Prescribed Exercise Modalities: Treadmill, Rower, Airdyne, NuStep, SciFit Intensity: 60-80% of age predicted maximum heart rate reserve Target Heart Rate:: 93-121 - Plan Plan and Plan to Review:: Benefits of exercise, Core components of exercise, How to measure dyspnea level, How to monitor dyspnea level, Exercise intensity, Exercise safety guideline, Home exercise guidelines, Bill: 3-4/-13 Disease Management - Initial - Problems/Goals-Hypoxemia Hypoxemia Problems:: Hypoxemia Hypoxemia Goals:: Hypoxemia managed, Using O2 as Rx's safely - Problems/Goals-Medications Medication Goals: Correct technique/timing & care of MDI, DPI, nebulizer, and spacer. - Problems/Goals-Bronchial Hygiene Bronchial Hygiene Goals:: Pt demonstrates effective cough, effective secretion clearance., Pt describes signs and symptoms of infection. - Initial Assessment Medications: Yes MDI, Yes DPI, Yes NEB, No Spacer Patient Reports:: No cough - Plans Hypoxemia Plan:: Monitor SpO2 rest & with exercise, Train appropriate O2 use with exercise, Train O2 safety & systems Reviewed prescribed medications:: Purpose, Schedule, Side effects, Importance of compliance Instruct correct technique/timing & care:: MDI, DPI, Nebulizer Bronchial Hygiene Plan: Controlled cough, Vibratory PEP device, Role of exercise in secretion clearance, Hydration, Hand hygiene, Evaluate sputum, When to call MD, Signs/symptoms to report:, Influenza/Pneumovax vaccines Psychosocial - Initial Assess - Problems/Goals Problems: Impaired Q.O.L. - Psychosocial Test Depression:: Impaired QOL Tests Completed: SF - 36 survey completed, Mood Scale Test Referred to MD for counseling:: No - Plan Reviewed screening results: Yes Instructions given regarding:: Benefits of exercise, Relaxation techniques, Training in coping strategies Tobacco - Initial Assessment - Program Goals Tobacco Program Goals: Complete smoking cessation. Attend education classes. Improve Knowledge Test score - Stage of Change Stages of Change:: Action - QUIT SMOKING 45 YEARS AGO AFTER HAVING SMOKED FOR ABOUT 30 YEARS. - Learning Barriers Learning Barriers: Vision, Ready to Learn - Family Support Do you have family support?: Yes - Tobacco Use Tobacco Use: Non-smoker Do you use smokeless tobacco?: No - Intervention Smoking Cessation Referral:: No Individual Education/Counseling:: Yes Education Schedule Given:: Yes - Education Gave Education Materials For:: Pulmonary Disease, Risk Factors, Breathing Techniques, Medical Compliance, Pulmonary A&P, Exacerbation Signs & Symptoms, Stress & Relaxation Nutrition/Wt Mgmt - Initial - Problems/Goals Problems: Underweight Goals: BMI 21-25, Prevent further wt loss - Weight Management Knowledge Deficit Management of:: Underweight, Role of exercise in weight control Admit Height:: 5 ft 1 in Admit Weight:: 104 lb - REFER FOR MEDICAL NUTRITION THERAPY. Admit BMI:: 19.6 - Diabetes Diabetes:: No - Intervention Referral to dietitian:: Yes - MEDICAL NUTRITION THERAPY Referral to Diabetic Clinic:: No Will attend diet classes:: Yes - Plan Nutrition Plan: Yes Nutrition education class: Patient Health Questionnaire Initial Assessment 1. Little interest or pleasure in doing things: Not at all 2. Feeling down, depressed, or hopeless: Not at all 3. Trouble falling or staying asleep, or sleeping too much: Not at all 4. Feeling tired or having little energy: More than half the days 5. Poor appetite or overeating: Not at all 6. Feeling bad about yourself -- or that you are a failure or have let yourself or your family down: Not at all 7. Trouble concentrating on things, such as reading the newspaper or watching television: Not at all 8. Moving or speaking so slowly that other people could have noticed. Or the opposite - being so fidgety or restless that you have been moving around a lot more than usual: Not at all 9. Thoughts that you would be better off , or of hurting yourself in some way: Not at all How difficult have these problems made it for you to do your work, take care of things at home, or get along with other people?: Not difficult at all Total Score: 2 COPD Knowledge Test Initial COPD is a lung disease that:: Makes it hard to breathe & gets worse over time In the [place] the term COPD describes 2 main lung conditions:: Emphysema & chronic bronchitis The most common lung irritant that causes COPD is:: Cigarette smoke Common signs and symptoms of COPD include:: An ongoing cough/cough that produces a large amount of mucus, & SOB If you have COPD, what steps can you take?: Quit smoking & avoid secondhand smoke Swelling of the ankles is common in COPD:: False Fatigue [tiredness] is common in COPD:: True Wheezing is common in COPD:: True Crushing chest pain is common in COPD:: True Rapid weight loss is common in COPD:: True Breathlessness is a normal response to exercise: True Exercise should be avoided if it makes you short of breath: True All bronchodilators act within 10 minutes: True A spacer device increases the medication to the lungs: True Annual flu vaccine is recommended for pts w/lung disease: True COPD Knowledge Test Total Score:: 10 COPD Assessment Test [CAT] - Questions Never cough = 0, Cough all the time = 5: 1 No phlegm = 0, Chest full of phlegm = 5: 2 No chest tightness = 0, Chest very tight = 5: 2 No breathless w/exertion = 0, Very breathless w/exertion = 5: 2 No limitations w/activity = 0, Very limited w/activity = 5: 2 Confident leaving home = 0, Not at all confident = 5: 3 Sleep soundly = 0, Don't sleep soundly = 5: 2 Lots of energy = 0, No energy at all = 5: 2 Total CAT score:: 16 Self-Efficacy Initial Assessment We would like to know how confident you are in doing certain activities. Please select your confidence level for:: Select your confidence level for the following using the scale 1-10 where 1 is not at all confident and 10 is totally confident. Your score is the average of all 6 responses. Fatigue: How confident are you that you can keep the fatigue caused by your disease from interfering with the things you want to do? Select Number: 7 Physical Discomfort or Pain: How confident are you that you can keep the physical discomfort or pain of your disease from interfering with the things you want to do? Select Number: 7 Emotional Distress: How confident are you that you can keep the emotional distress caused by your disease from interfering with the things you want to do? Select Number: 8 Other Symptoms or Health Problems: How confident are you that you can keep other symptoms or health problems from interfering with the things you want to do? Select Number: 8 Different Tasks and Activities: How confident are you that you can do the different tasks and activities needed to manage your health condition so as to reduce your need to see a doctor? Select Number: 8 Medication: How confident are you that you can do things other than just taking medication to reduce how much your illness affects your everyday life? Select Number: 8 Total Score:: 7 Nutrition Survey - Nutrition Survey Instructions Scoring Instructions: Scoring is as follows: Yes = 1 points. No = 0 point. Patient score that is >/=12 is considered to be at potential nutritional risk and could benefit from a referral to a registered dietitian. - Nutrition Survey Initial Have you lost >10 lbs over the past 2 months without trying?: No Are you following a special diet at home for diabetes, low fat, or low salt?: Yes Are you interested in meeting with a dietitian for help understanding your diet?: No Do you eat less than 3 meals a day?: No Do you eat fatty meats (pal, sausage, ribs, etc), fried foods, desserts, large amounts of salad dressings, margarine, butter, or cheese most days?: No Do you have food allergies? [Enter types in comment field]: Yes - [facility] REFERRAL FOR MALNUTRITON EXCESS WEIGHT LOSS BMI <20; MEDICAL NUTRITION THERAPY. Do you eat in restaurants more than 3 times a week?: Yes Do you season food with salt, seasoning salt, or garlic salt?: No Do you used canned, boxed, frozen meals, or soups, seasoning packets?: No Total Score:: 3
--- NOTE | 2019-09-25 12:47 | PCM.PR.HP ---
History of Present Illness Arrival date:: 09/25/19 Arrival time:: 12:51 Date of Referral:: 09/13/19 Date of Evaluation: 09/25/19 Referring Physician: DR. DEB JMI Primary Diagnosis: CHRONIC OBSTRUCTIVE PULMONARY DISEASE, MODERATE GOLD CLASSIFICATION II/ History of Present Illness: PT IS A 79/F OF DR[address] DEB AMAYA'Pepe WHO PRESENTS TO PULM REHAB TODAY FOR HER MODERATELY SEVERE OBSTRUCTIVE DISEASE, (COPD)/ CHRONIC RESPIRATORY FAILURE WITH HYPOXIA. mMRC Breathless Scale: When is the patient short of breath? Y/N Grade: Description of Breathlessness: 0 I only get breathless with strenuous exercise. 1 I get short of breath when hurrying on level ground or walking up a slight hill. 2 On level ground, I walk slower than people of the same age because of breathless, or have to stop for breath when walking at my own pace. 3 I stop for breath after walking 100 yards or after a few minutes on level ground. 4 I am too breathless to leave the house or I am breathless when dressing. Respiratory Problems: Yes: Fatigue, Dyspnea with Activity, Cough with Secretions Home Medications: Home Medications Alendronate Sodium [Fosamax] 70 mg PO FR 04/19/19 Calcium Carbonate [Calcium] 500 mg PO DAILY 04/19/19 Triamterene/Hctz 37.5/25Mg [Triamterene-Hctz 37.5-25 mg Tb] 1 tab PO DAILY 04/19/19 Loperamide [Imodium] 2 mg PO Q4H PRN PRN cap 04/22/19 Oseltamivir Phosphate [Tamiflu] 30 mg PO BID #3 cap 04/22/19 albuterol sulfate 90 mcg/actuation aerosol inhaler 2 puff INHALATION 4X/DAY #1 inhaler 05/02/19 fluticasone propionate 50 mcg/actuation nasal spray,suspension 1 spray INTRANASAL DAILY #18.2 ml 05/02/19 guaifenesin 1,200 mg tablet, extended release 12 hr 1,200 mg PO Q12H #60 tab 05/02/19 tiotropium bromide 18 mcg capsule with inhalation device 18 mcg INHALATION DAILY #30 inh 05/02/19 benzonatate 100 mg capsule 100 mg PO ONCE PRN cap 05/03/19 magnesium 30 mg tablet 30 mg PO DAILY 05/03/19 sucralfate 1 gram tablet 1 g PO TID PRN tab 05/03/19 zinc 50 mg tablet 50 mg PO DAILY 05/03/19 budesonide-formoterol HFA 160 mcg-4.5 mcg/actuation aerosol inhaler 2 puff INHALATION BID #10.2 g 08/24/19 Oxygen, Home [Home Oxygen] 2 lpm NASAL 09/25/19 Allergies/Adverse Reactions: Allergies shellfish derived Allergy (Severe, Verified 09/13/19 13:07) Anaphylaxis bacitracin Allergy (Verified 09/13/19 13:07) Rash codeine Allergy (Verified 09/13/19 13:07) Rash latex Allergy (Verified 09/13/19 13:07) IF PT USES LATEX GLOVES GETS RASH [facility] Adverse Reaction (Uncoded 09/25/19 13:21) Swelling - Secretions Thick:: No Thin:: No Hx of Sleep Apnea: No Do you snore loudly (louder than talking or can be heard through closed doors)?: No - huSBANDS STATES FROM TIME TO TIME BUT NOT REGULARLY. Do you often feel tired/ fatigued/ sleepy during daytime?: Yes Has anyone observed you stop breathing during sleep?: No History of Hypertension (for STOP score): Yes STOP Results: Positive Medical Utilization Do you use a peak flow meter at home?: No Do you use a spacer device with your inhalers?: Yes Number of hospital visits in the last year?: 2 Number of emergency room visits in the last year?: 2 Do you see your physician on a regular schedule?: Yes How often?: PCP: 6 MO PULMONARY: 3 MO Advanced Directives - Advanced Directives Power of Director Energy: Yes Living Will: Yes Advance Directives Information Provided: No Advance Directives on File: Yes DNR Order?:: No - MOLST See MOLST form: No Past Medical History - Covid-19 Screening Fever: No Unexplained muscle aches: No Upper respiratory infections symptoms: Yes Gastro-intestinal symptoms: No Dla-Qwcs-Oeqgyw symptoms: No Has tested positive for COVID-19 in last 30 days: No Had contact w/person w/symptoms or Covid-19 (+) last 14 days: No Has High Risk Exposures ID'd by Health dept/Inf Control team: No 65 years or older:: Yes Lives in Assisted Living facility:: No Has a chronic lung disease or moderate to severe asthma:: Yes Has a serious heart condition:: No Immunocompromised:: No Severely obese (Body Mass Index of 40 or higher):: No Diabetic:: No Has chronic kidney disease undergoing dialysis:: No Has liver disease:: No Medical History: Past Medical History (Last Reviewed 09/13/19 @ 13:04 by Magda Butler) Meniere disease (Chronic) H81.09 Essential hypertension (Chronic) I10 Nonrheumatic tricuspid valve regurgitation (Chronic) I36.1 Nonrheumatic mitral valve regurgitation (Chronic) I34.0 Pneumothorax (Chronic) J93.9 Non-Hodgkin lymphoma (Chronic) C85.90 CML (chronic myelocytic leukemia) (Chronic) C92.10 Weight loss (Chronic) COPD (chronic obstructive pulmonary disease) (Chronic) J44.9 CLL (chronic lymphocytic leukemia) (Chronic) C91.10 Cervical cancer C53.9 History of bilateral breast cancer Z85.3 Surgical History: Past Surgical History (Last Reviewed 09/13/19 @ 13:04 by Magda Butler) History of bladder surgery Z98.890 sling surgery for stress incontinence History of breast reconstruction Z98.82 Bilateral 02/2015 History of cataract surgery Z98.49 History of dilatation and curettage Z98.890 History of lung surgery Z98.890 Lt Lung Bronchial Artery embolization 2006 History of mastectomy Z90.10 bilateral 1982 Family History: Family History (Last Reviewed 09/13/19 @ 13:04 by Magda Butler) Father Abdominal aortic aneurysm (AAA) - Current/ Previous Services Pulmonary Rehab:: No Social History - Smoking History Smoking Status: Former smoker Years Smokin Hx Tobacco Use: No Hx Smoking Exposure: No - Alcohol Use Alcohol Usage: Yes - 4 GLASSES OF WINE PER WEEK. - Substance Abuse Hx Substance Use: No - Occupation Occupation (List type of work in comments):: Retired - Hobbies, Recreation, Social Activities Hobbies: Other - GARDENING, FLOWERBEDS, REMODELING ROOM INTERIOR, LOVE SPENDING MONEY. Recreational Activities: I am able to engage in a few activities - USED TO POWER WALK AND CANT PERFORM THAT NOW, Functioning ADL/IADL - Current Ability Current Ability: Independent Self-Care (e.g.,grooming, dressing, & bathing), Independent Ambulation, Independent Transfer, Independent Household tasks (e.g., light meal prep, laundry, shopping) - Pt Functioning Prior to Problem Prior Functioning: Self-Care (e.g.,grooming, dressing, & bathing): Independent, Ambulation: Independent, Transfer: Independent, Household tasks (e.g., light meal prep, laundry, shopping): Independent Social Environment - Status Marital Status: - Current Living Arrangements Living Environment:: Spouse - Children How many children do you have?: 2 - SON/DAUGHTER Do any of your children live nearby?: Yes - DAUGHTER IN [place]/ SON [place] - Safety Do you feel safe in your surroundings?: Yes - Assistance Do you need any assistance at home?: NONE Review of Systems Review of Systems: Right click = Denies (Slash). Left click = Reports ([place]) Respiratory: Reports: Appetite, Normal, Sleep, Normal. Denies: Cough, SOB at Rest, Sputum production Is Patient Pain Free?: No Pain Location: none Pain Level: 0/10 Risk Factor Assessment - Chief Complaint Chief Complaint: 79/F WITH MODERATE TO SEVERE COPD. - Vital Signs Temperature: 97.3 F Pulse Rate: 88 Pulse Rhythm: Regular Respiratory Rate: 18 Pulse Ox: 90 Blood Pressure: 116/68 Nailbeds:: PINK - Diabetes Nutrition Referral for Diabetes: No - Obesity Height: 5 ft 1 in Weight:: 102 lb Weight in Pounds: 102.0 lbs Weight Source: Estimated by Patient Body Mass Index (BMI): 19.3 Nutritional Referral for Obesity: No - REFERRAL FOR MALNUTRITION/WEIGHT LOSS W/DECREASE BMI <19.3-20 - Physical Activity Physical Inactivity: Reg Exercise 30 min/day, Recreational activity - Risk Stratification Risk Guidelines: Lowest Risk: Risk Factor for Smoking, Risk Factor for Dyslipidemia, Risk Factor for Diabetes, Risk Factor for Obesity, Risk Factor for Hypertension, Risk Factor for Depression, Highest Risk: Risk Factor for Sedentary Lifestyle - For Smoking Smoking Risk Guidelines: Smoking Low Risk: None or quit greater than 6 months ago. Smoking Moderate Risk: Smoker or quit 6 months or less ago. Smoking High Risk: Smoker - For Dyslipidemia Dyslipidemia Risk Guidelines: Low Risk: Moderate Risk: High Risk: 15-25% fat 25.1-29% fat >/= 30% fat. <7% sat fat 7-9% sat fat >9% sat fat. <150 mg chol 150-299 mg chol >/= 300 mg chol. LDL <100 LDL 100-129 LDL >/= 130. Chol/HDL ratio <5.0 Chol/HDL ratio 5.0-6.0 Chol/HDL ratio >6.0. Triglycerides <100 Triglycerides 100-149 Triglycerides >/= 150 - For Diabetes Mellitus Diabetes Risk Guidelines: Diabetes Low Risk: HgA1c <6.5% and/or FBG <120. Diabetes Moderate Risk: HgA1c 6.6-7.9% and/or FBG 120-180. Diabetes High Risk: HgA1c >/= 8% and/or FBG >180 - For Obesity/Overweight Obesity/Overweight Risk Guidelines: Obesity Low Risk: BMI <25.0. Obesity Moderate Risk: BMI 25-29.9. Obesity High Risk: BMI >/= 30.0 - For Hypertension Hypertension Risk Guidelines: Hypertension Low Risk: Systolic <120 and Diastolic <80. Hypertension Moderate Risk: Systolic 120-139 and Diastolic 80-89. Hypertension High Risk: Systolic >/= 140 and Diastolic >/= 90 - For Sedentary Lifestyle Sedentary Lifestyle Risk Guidelines: Sedentary Lifestyle Low Risk: >/= 1,500 kcal/week. Sedentary Lifestyle Moderate Risk: 700-1,499 kcal/week. Sedentary Lifestyle High Risk: < 700 kcal/week - For Depression Depression Risk Guidelines: Depression Low Risk: Not clinically depressed. Depression Moderate Risk: Mildly depressed. Depression High Risk: Clinically depressed Motivation - Motivation to Participate On a scale of 1 to 10, how prepared are you to commit to attending program?: 10 What do you see as barriers to successfully being able to complete the program?: DIZZINESS/ SPELLS CONCERNING What do you see as the benefits of succesfully completing the program? In other words, what do you hope to get out of participating in the program?: FEEL BETTER/ HAVE ALWAYS EXERCISED AND DIFFICULT NOT BEING ABLE TO DO THING Are there issues you are dealing with that will interfere with completing the program?: DIZZY SPELLS Do you have a spouse or signficant other, family or friends who will help support you to complete the program?: NICHO AVILEZ Diagnostic Data Review - Pulmonary Function Test FEV1:: 1.03 - 09/07/2019 FVC:: 2.35 FEV1/FVC%:: 44 Gold Classification: GOLD class II(mod. COPD)with FEV1/FVC <70%, 50%</= FEV1< 50% predicted
[2019-09-25 13:20] VITALS: BMI 19.6
[2019-09-25 13:36] VITALS: BP 116/68; PULSE 88; RESP 18; TEMP 36.3; O2SAT 90; BMI 19.3
== END ==
PROVIDERS: PCP Family Medicine; Referring Provider Internal Medicine Critical Care Medicine; Visit Provider Internal Medicine Critical Care Medicine
DX: J44.9 Chronic obstructive pulmonary disease, unspecified (principal); I10 Essential (primary) hypertension; I36.1 Nonrheumatic tricuspid (valve) insufficiency; I34.0 Nonrheumatic mitral (valve) insufficiency; Z85.3 Personal history of malignant neoplasm of breast; Z79.899 Other long term (current) drug therapy

== ENCOUNTER 2019-10-23 09:15 | Outpatient (RCR) | payer MEDICARE, OTHER, SELFPAY ==
[2019-09-25 13:36] VITALS: BMI 19.3
== END 2019-10-23 23:59 ==
LOC: PR 09:15
PROVIDERS: PCP Family Medicine; Referring Provider Internal Medicine Critical Care Medicine; Visit Provider Internal Medicine Critical Care Medicine
DX: J44.9 Chronic obstructive pulmonary disease, unspecified (principal); J96.11 Chronic respiratory failure with hypoxia
CPT/HCPCS: 97150; G0424

== ENCOUNTER → 2019-11-17 09:46 | Outpatient (CLI) | payer MEDICARE, OTHER, SELFPAY ==
[2019-09-25 13:36] VITALS: BMI 19.3
--- NOTE | 2019-11-17 09:47 | ECHOD_ITS ---
Reason For Study: MITRAL VALVE PROLAPSE Procedure This was a 2D Doppler, Color Flow transthoracic echocardiogram. The exam was of adequate technical quality. Exam performed in department. Left Ventricle Normal LV size. Left ventricular systolic function is normal. The estimated ejection fraction is 65 %. The global longitudinal strain = -22 % (normal). No evidence for diastolic dysfunction. No regional wall motion abnormalities noted. Right Ventricle Normal RV size. Normal systolic function. Atria Normal left atrium. Normal right atrium. No doppler evidence for ASD. Mitral Valve There is moderate mitral annular calcification. Extension of the mitral annular calcification onto the base of the posterior mitral valve leaflet. Mild diffuse mitral valve thickening. Mild mitral valve prolapse, posterior leaflet. Mild-Moderate (1-2+) mitral valve insufficiency. Tricuspid Valve Mild diffuse thickening of the tricuspid valve. Mild to moderate (1-2+) tricuspid valve insufficiency. Right ventricular systolic pressure estimated to be 26 mmHg. Aortic Valve Trisinus/trileaflet aortic valve. Mild diffuse aortic valve thickening. Mild focal aortic valve calcification. Aortic sclerosis, no stenosis. Pulmonic Valve The pulmonic valve is not well visualized. Great Vessels Normal sized aortic root. Calcified aortic root. Pericardium/Pleural No pericardial effusion. MMode/2D Measurements & Calculations LVIDd: 3.3 cm IVSd: 1.00 cm Ao root diam: 2.8 cm LVIDs: 2.1 cm LVPWd: 1.0 cm RVDd: 3.2 cm FS: 35.3 % LAV(MOD-bp): 27.9 ml LVAd ap4: 22.2 cm2 SV(MOD-sp4): 38.3 ml LAV(MOD-bp) Indexed: 19.7 ml/m2 EDV(MOD-sp4): 61.5 ml LAV(MOD-sp2): 28.9 ml EDV(sp4-el): 63.0 ml LAV(MOD-sp4): 26.9 ml LVAs ap4: 12.5 cm2 ESV(MOD-sp4): 23.2 ml ESV(sp4-el): 23.6 ml EF(MOD-sp4): 62.3 % EF(sp4-el): 62.6 % SV(sp4-el): 39.4 ml LA A4 area: 12.4 cm2 LA dimension(2D): 2.8 cm RA A4 area: 12.9 cm2 Time Measurements MV dec time: 0.27 sec Doppler Measurements & Calculations MV E max king: 65.7 cm/sec Lat Peak E' King: 7.8 cm/sec Med Peak E' King: 5.1 cm/sec MV A max king: 78.2 cm/sec E/E' lat: 8.5 E/E' med: 13.0 MV E/A: 0.84 Ao V2 max: 161.4 cm/sec LV V1 max: 113.9 cm/sec PA V2 max: 103.3 cm/sec Ao max P.4 mmHg LV V1 max P.2 mmHg TR max king: 237.0 cm/sec TR max P.5 mmHg Interpretation Summary Left ventricular systolic function is normal. The estimated ejection fraction is 65 %. The global longitudinal strain = -22 % (normal). There is moderate mitral annular calcification. Extension of the mitral annular calcification onto the base of the posterior mitral valve leaflet. Mild diffuse mitral valve thickening. Mild mitral valve prolapse, posterior leaflet Mild-Moderate (1-2+) mitral valve insufficiency. Mild diffuse thickening of the tricuspid valve. Mild to moderate (1-2+) tricuspid valve insufficiency. Aortic sclerosis, no stenosis. Calcified aortic root. Right ventricular systolic pressure estimated to be 26 mmHg. No evidence for diastolic dysfunction. 2D echocardiographic images demonstrate a small mobile echodensity on the aortic side of the aortic valve appearing c/w a Lambls Excresence. Ordering Physician: Ronak Roper Referring Physician: DEB JIM Performed By: Marcella Luna RDCS
== END ==
PROVIDERS: PCP Family Medicine; Referring Provider Internal Medicine Cardiovascular Disease; Visit Provider Internal Medicine Cardiovascular Disease
DX: I36.1 Nonrheumatic tricuspid (valve) insufficiency (principal); J44.9 Chronic obstructive pulmonary disease, unspecified; J96.11 Chronic respiratory failure with hypoxia
CPT/HCPCS: 93306; 97150; G0424

== ENCOUNTER 2019-11-22 09:15 | Outpatient (RCR) | payer MEDICARE, OTHER, SELFPAY ==
[2019-09-25 13:36] VITALS: BMI 19.3
--- NOTE | 2019-10-26 09:15 | PCM.PR.TP ---
Exercise - 30-Day Assessment - Physician Prescribed Exercise Modalities: Treadmill, NuStep, SciFit Intensity: 60-80% of age predicted maximum heart rate reserve Aerobic Exercise [30-60 min 3-7x/week]:: Progressing Target heart rate: 93-121 Bill-13 METs - Progression: 0.5-1.0 MET, RPE 11-14 WEEK: 4.6 - Home Exercise Home Exercise:: No Disease Management - 30-Day - Hypoxemia Reassessment: Demonstrates knowledge of O2 Rx with exercise - Medications Medication list reviewed:: Yes Taking medications 100% of the time:: Met Medication reassessment: Yes Pt demonstrates correct technique timing for MDI, Yes Pt demonstrates correct technique timing for DPI, Yes Pt demonstrates correct technique timing for NEB, Yes Pt demonstrates correct technique timing for spacer - Bronchial Hygiene Bronchial Hygiene Plan: Yes Pt demonstrates correctly for effective cough, Yes Pt demo correct for improved hydration, Yes Pt demo correct for hand hygiene Psychosocial - 30-Day - Assessment Reassessment: Management of stress & depression, Practicing interventions, Demonstrate coping strategies, COPD assessment w/ CAT, Self efficacy score Tobacco - 30-Day Assessment - Program Goals Tobacco Program Goals: Complete smoking cessation. Attend education classes. Improve Knowledge Test score - Stage of Change Stages of Change:: Action - Learning Barriers Learning Barriers: Participates in education, Change in behavior - Family Support Do you have family support?: Yes - Tobacco Use Tobacco Use: Non-smoker - Education Gave Education Materials For:: Pulmonary Disease, Risk Factors, Breathing Techniques, Medical Compliance, Pulmonary A&P, Exacerbation Signs & Symptoms, Stress & Relaxation Nutrition/Wt Mgmt - 30-Day - Weight Management Weight Assessment:: BMI 21 to 25 Weight:: 101 lb 8 oz Weight Goals Progress:: Progressing Patient Health Questionnaire 30-Day Re-eval Assessment 1. Little interest or pleasure in doing things: Not at all 2. Feeling down, depressed, or hopeless: Not at all 3. Trouble falling or staying asleep, or sleeping too much: Not at all 4. Feeling tired or having little energy: Several days 5. Poor appetite or overeating: Not at all 6. Feeling bad about yourself -- or that you are a failure or have let yourself or your family down: Not at all 7. Trouble concentrating on things, such as reading the newspaper or watching television: Not at all 8. Moving or speaking so slowly that other people could have noticed. Or the opposite - being so fidgety or restless that you have been moving around a lot more than usual: Not at all 9. Thoughts that you would be better off , or of hurting yourself in some way: Not at all How difficult have these problems made it for you to do your work, take care of things at home, or get along with other people?: Not difficult at all Total Score: 1 COPD Assessment Test [CAT] - Questions Never cough = 0, Cough all the time = 5: 0 No phlegm = 0, Chest full of phlegm = 5: 0 No chest tightness = 0, Chest very tight = 5: 0 No breathless w/exertion = 0, Very breathless w/exertion = 5: 2 No limitations w/activity = 0, Very limited w/activity = 5: 3 Confident leaving home = 0, Not at all confident = 5: 1 Sleep soundly = 0, Don't sleep soundly = 5: 1 Lots of energy = 0, No energy at all = 5: 4 Total CAT score:: 11 Self-Efficacy 30-Day Re-eval Assessment We would like to know how confident you are in doing certain activities. Please select your confidence level for:: Select your confidence level for the following using the scale 1-10 where 1 is not at all confident and 10 is totally confident. Your score is the average of all 6 responses. Fatigue: How confident are you that you can keep the fatigue caused by your disease from interfering with the things you want to do? Select Number: 7 Physical Discomfort or Pain: How confident are you that you can keep the physical discomfort or pain of your disease from interfering with the things you want to do? Select Number: 8 Emotional Distress: How confident are you that you can keep the emotional distress caused by your disease from interfering with the things you want to do? Select Number: 8 Other Symptoms or Health Problems: How confident are you that you can keep other symptoms or health problems from interfering with the things you want to do? Select Number: 8 Different Tasks and Activities: How confident are you that you can do the different tasks and activities needed to manage your health condition so as to reduce your need to see a doctor? Select Number: 8 Medication: How confident are you that you can do things other than just taking medication to reduce how much your illness affects your everyday life? Select Number: 8 Total Score:: 7
== END 2019-11-22 23:59 ==
LOC: PR 09:15
PROVIDERS: PCP Family Medicine; Referring Provider Internal Medicine Critical Care Medicine; Visit Provider Internal Medicine Critical Care Medicine
DX: J44.9 Chronic obstructive pulmonary disease, unspecified (principal); J96.11 Chronic respiratory failure with hypoxia
CPT/HCPCS: 97150; G0424

== ENCOUNTER 2019-12-13 09:15 | Outpatient (RCR) | payer MEDICARE, OTHER, SELFPAY ==
[2019-09-25 13:36] VITALS: BMI 19.3
--- NOTE | 2019-11-29 06:39 | PCM.PR.TP ---
Exercise - 60-Day Assessment - Physician Prescribed Exercise Modalities: Treadmill, NuStep, SciFit Frequency (days/week): 3 Duration (Minutes):: 30-45 Intensity: 60-80% of age predicted maximum heart rate reserve Aerobic Exercise [30-60 min 3-7x/week]:: Progressing Target heart rate: 93-121 max HR 106 Bill-13 METs - Progression: 0.5-1.0 MET, RPE 11-14 WEEK: 5.6 - Home Exercise Home Exercise:: Yes Frequency:: daily Time (minutes):: 30 - walking Disease Management - 60-Day - Hypoxemia Reassessment: Demonstrates knowledge of O2 Rx at rest, Demonstrates knowledge of O2 Rx with exercise, Using O2 as prescribed, Has home O2 as prescribed - Medications Medication list reviewed:: Yes Taking medications 100% of the time:: Met Medication reassessment: Yes Pt demonstrates correct technique timing for MDI, Yes Pt demonstrates correct technique timing for DPI, Yes Pt demonstrates correct technique timing for NEB, Yes Pt demonstrates correct technique timing for spacer - Bronchial Hygiene Bronchial Hygiene Plan: Yes Pt demonstrates correctly for effective cough, Yes Pt demo correct for device, Yes Pt demo correct for improved hydration, Yes Pt demo correct for hand hygiene, Yes Pt demo correct for verbalize when to call MD Psychosocial - 60-Day - Assessment Depression reassess: Management of stress: Progressing, Management of depression: Progressing, Practicing interventions: Progressing Tobacco - 60-Day Assessment - Program Goals Tobacco Program Goals: Complete smoking cessation. Attend education classes. Improve Knowledge Test score - Stage of Change Stages of Change:: Action - Learning Barriers Learning Barriers: Participates in education - patient reports using booklet and online education - Family Support Do you have family support?: Yes - Tobacco Use Tobacco Use: Non-smoker - Education Gave Education Materials For:: Pulmonary Disease, Risk Factors, Breathing Techniques, Medical Compliance, Pulmonary A&P, Exacerbation Signs & Symptoms, Stress & Relaxation Nutrition/Wt Mgmt - 60-Day - Weight Management Weight Assessment:: BMI 21 to 25 Weight:: 101 lb 8 oz Weight Goals Progress:: Progressing Patient Health Questionnaire 60-Day Re-eval Assessment 1. Little interest or pleasure in doing things: Not at all 2. Feeling down, depressed, or hopeless: Not at all 3. Trouble falling or staying asleep, or sleeping too much: Not at all 4. Feeling tired or having little energy: Not at all 5. Poor appetite or overeating: Not at all 6. Feeling bad about yourself -- or that you are a failure or have let yourself or your family down: Not at all 7. Trouble concentrating on things, such as reading the newspaper or watching television: Not at all 8. Moving or speaking so slowly that other people could have noticed. Or the opposite - being so fidgety or restless that you have been moving around a lot more than usual: Not at all 9. Thoughts that you would be better off , or of hurting yourself in some way: Not at all Total Score: 0 COPD Assessment Test [CAT] - Questions Never cough = 0, Cough all the time = 5: 0 No phlegm = 0, Chest full of phlegm = 5: 0 No chest tightness = 0, Chest very tight = 5: 0 No breathless w/exertion = 0, Very breathless w/exertion = 5: 2 No limitations w/activity = 0, Very limited w/activity = 5: 1 Confident leaving home = 0, Not at all confident = 5: 0 Sleep soundly = 0, Don't sleep soundly = 5: 1 Lots of energy = 0, No energy at all = 5: 2 Total CAT score:: 6 Self-Efficacy 60-Day Re-eval Assessment We would like to know how confident you are in doing certain activities. Please select your confidence level for:: Select your confidence level for the following using the scale 1-10 where 1 is not at all confident and 10 is totally confident. Your score is the average of all 6 responses. Fatigue: How confident are you that you can keep the fatigue caused by your disease from interfering with the things you want to do? Select Number: 9 Physical Discomfort or Pain: How confident are you that you can keep the physical discomfort or pain of your disease from interfering with the things you want to do? Select Number: 10 Emotional Distress: How confident are you that you can keep the emotional distress caused by your disease from interfering with the things you want to do? Select Number: 10 Other Symptoms or Health Problems: How confident are you that you can keep other symptoms or health problems from interfering with the things you want to do? Select Number: 10 Different Tasks and Activities: How confident are you that you can do the different tasks and activities needed to manage your health condition so as to reduce your need to see a doctor? Select Number: 10 Medication: How confident are you that you can do things other than just taking medication to reduce how much your illness affects your everyday life? Select Number: 10 Total Score:: 9
== END 2019-12-23 23:59 ==
LOC: PR 09:15
PROVIDERS: PCP Family Medicine; Referring Provider Internal Medicine Critical Care Medicine; Visit Provider Internal Medicine Critical Care Medicine
DX: J44.9 Chronic obstructive pulmonary disease, unspecified (principal); J96.11 Chronic respiratory failure with hypoxia
CPT/HCPCS: 97150; G0424

== ENCOUNTER 2020-09-20 04:15 | Inpatient (IN) | payer MEDICARE, OTHER, SELFPAY ==
[2020-07-03 06:31] VITALS: BMI 18.8
[2020-09-20] VITALS (9 sets, daily range): BP systolic 105–143; BP diastolic 63–86; PULSE 54–88; RESP 12–20; TEMP 36.3–37; O2SAT 92–99; BMI 18.5; BMI 18.1
--- NOTE | 2020-09-20 04:28 | EKG12_ITS ---
Test Reason : ABD PAIN Blood Pressure : / mmHG Vent. Rate : 055 BPM Atrial Rate : 055 BPM P-R Int : 120 ms QRS Dur : 098 ms QT Int : 442 ms P-R-T Axes : 071 068 060 degrees QTc Int : 422 ms Sinus bradycardia with marked sinus arrhythmia Nonspecific ST abnormality Abnormal ECG Confirmed by SHIVA SNOW, ARMOND ([id number]), editorial clerk JEREMIE MENDOZA ([id number]) on 09/26/2020 1:15:03 PM Referred By: RAMIREZ Confirmed By:ARMOND SHANNON MD
--- NOTE | 2020-09-20 04:29 | RAD_ITS ---
STUDY: X-RAY CHEST REASON FOR EXAM: Female, 80 years old. chest pain TECHNIQUE: AP COMPARISON: 04/19/2019 FINDINGS: The lungs are clear and expanded. There is no demonstrated pleural abnormality. Normal size heart. Normal mediastinum and porfirio. Normal visualized pulmonary arteries. Normal visualized aortic arch and descending thoracic aorta. There are diffuse degenerative changes of the visualized thoracic spine. Normal visualized ribs, clavicles, and shoulders. There is no demonstrated abnormality of the visualized soft tissue structures of the upper abdomen. RAD/Chest 1 View (Portable) IMPRESSION: No focal lung consolidative changes. No interval radiographic change. Electronically Signed: Taz Jacobs MD at 6:26 EDT Tel , Service support ,
--- NOTE | 2020-09-20 04:30 | EDS_ITS ---
HPI HPI - GI History of Present Illness Chief Complaint: Abd Pain Informant: patient, spouse/S.O. and EMS Abdominal Pain/Flank Pain Onset: Yesterday Context: Gradual Onset Timing: Continuous and Waxes and wanes Quality: Aching and Sharp Location: Epigastric (and into mid-chest above it; no other radiation; no back or shoulder pain) Current Severity: Moderate Maximum Severity: Severe Worsened by: Nothing Relieved by: Nothing Nausea/Vomiting/Emesis GI Symptom: Positive for Nausea; Negative for Vomiting Diarrhea/Melena/Hematochezia GI Symptom: Negative for Diarrhea, Melena and Hematochezia Associated Symptoms Associated Symptoms: Negative for Dysuria, Frequency, Hematuria and Urgency Narrative Narrative: Patient started getting epigastric discomfort yesterday around 12 hours ago or maybe less, she is not sure exactly the onset time but she thought initially it was acid reflux/indigestion so she took some antiacids but they did not help at all whereas they usually do. Since then discomfort has persisted and become more severe, colicky, she presents for evaluation. She had a remote hysterectomy but no other abdominal surgeries that she can recall. [facility] Medical History (Updated 09/20/20 @ 07:[address] John Lindsey MD) Cervical cancer CLL (chronic lymphocytic leukemia) CML (chronic myelocytic leukemia) COPD (chronic obstructive pulmonary disease) Essential hypertension History of bilateral breast cancer Meniere disease Non-Hodgkin lymphoma Nonrheumatic mitral valve regurgitation Nonrheumatic tricuspid valve regurgitation Pneumothorax Weight loss Home Medications triamterene-hydrochlorothiazid 1 tab PO DAILY 04/19/19 [History Last Taken 04/19/19] fluticasone propionate 50 mcg/actuation nasal spray,suspension 1 spray INTRANASAL DAILY #18.2 ml 05/02/19 [Rx Last Taken Unknown] albuterol sulfate 90 mcg/actuation aerosol inhaler 2 puff INHALATION 4X/DAY #1 inhaler 11/27/19 [Rx Last Taken Unknown] budesonide-formoterol HFA 160 mcg-4.5 mcg/actuation aerosol inhaler 2 puff INHALATION BID #10.2 g 12/19/19 [Rx Last Taken Unknown] tiotropium bromide 18 mcg capsule with inhalation device 18 mcg INHALATION DAILY #30 inh 08/13/20 [Rx Last Taken Unknown] multivitamin 1 tab PO DAILY 09/20/20 [History Last Taken Unknown] Allergy/AdvReac Type Severity Reaction Status Date / Time shellfish derived Allergy Severe Anaphylaxis Verified 09/20/20 04:16 bacitracin Allergy Rash Verified 09/20/20 04:16 codeine Allergy Rash Verified 09/20/20 04:16 latex Allergy IF PT USES Verified 09/20/20 04:16 LATEX GLOVES GETS RASH WALNUTS AdvReac Swelling Uncoded 09/20/20 04:16 Family History Father Abdominal aortic aneurysm (AAA) Surgical History History of bladder surgery History of breast reconstruction History of cataract surgery History of dilatation and curettage History of lung surgery History of mastectomy Social History Smoking Status: Former smoker alcohol intake: current details: 4 glasses wine per week substance use type: does not use ROS ROS ED Constitutional Constitutional ED: Denies chills or fever(s) Eyes Eyes: Denies change in vision or diplopia ENT ENT ED: Denies rhinorrhea or sore throat Cardiovascular Cardiovascular: Denies chest pain or palpitations Respiratory/Chest Respiratory/Chest: Reports other Details: Chronic nonproductive cough, chronic dyspnea, stable and unchanged Gastrointestinal Gastrointestinal: Reports abdominal pain and nausea; Denies diarrhea or vomiting Genitourinary Genitourinary ED: Denies dysuria or hematuria Musculoskeletal Musculoskeletal: Denies back pain or neck pain Integumentary Denies abscess or rash Neurologic Neurologic: Denies headache(s), paresthesias or weakness Psychiatric Psychiatric: Denies anxiety or suicidal thoughts EXAM Physical Exam Const Vital Signs: 09/20/20 04:18 09/20/20 05:15 09/20/20 06:47 Temperature 97.3 F L 97.7 F L Temperature Source Temporal Temporal Pulse Rate 55 L 54 L 59 L Respiratory Rate 17 17 18 Blood Pressure 143/81 H 119/78 105/86 H Blood Pressure Mean 101 91 92 Pulse Ox 95 94 99 Oxygen Delivery Method Room Air Room Air Room Air Positive well nourished and well developed General Appearance ED: well developed and NAD HEENT Reports moist mucous membranes normocephalic and atraumatic Eyes PERRL and EOMs intact bilaterally Neck full ROM and supple Resp normal respiratory effort and clear to auscultation bilaterally Cardio regular rate, regular rhythm and no murmurs GI non-distended Auscultation: normoactive bowel sounds Palpation: soft and tender epigastric and RUQ; Negative for guarding or rebound tenderness present Back/Spine no CVA tenderness, normal ROM and normal to inspection General Back: other FROM Extremity normal to inspection General Extremety ED: Negative for edema, pulses abnormal or tenderness General Extremity: Negative for edema or pulses abnormal Neuro oriented x3, CN's II-XII intact bilaterally and no sensory deficits noted Sensorium / Orientation: awake and alert Motor Exam: strength 5/5 throughout Skin no rashes or lesions noted and no wounds MDM MDM MDM Narrative Medical decision making narrative: Given the patient's symptoms and time of presentation which is 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 Therefore, her pain was treated, labs were sent and she was sent for IV contrasted CT along with IV fluids to flush. Vital signs remained stable, after 2 doses of morphine 2 mg as well as Zofran she was feeling better. Labs show significant leukocytosis and an unusually low potassium that does not correlate with her symptoms; given her normal renal function, she was given IV potassium anyway, mainly to prevent it from going any lower if it is really 2.4; CT results are as below, showing suspicion for a small bowel obstruction. Her gallbladder is also distended, and given the upper discomfort and lack of vomiting, colicky nature of the symptoms, and the possibility of a gallstones seen in the neck, this is noted as well and not out of the realm of possibility. Since she is not vomiting and currently is comfortable, I have held off on NG. Discussion with the patient and family, she has had bowel obstruction in the past, and they do think her hysterectomy is the only abdominal surgery she had in the past. Plan is for admission to medical surgical floor. Discussed w/ surgery, who requests NGT placement in ED. Lab Data Attestation: I reviewed the patient's lab results. Labs: Laboratory Results - last 24 hr 09/20/20 09/20/20 04:40 04:40 WBC 23.7 H RBC 4.51 Hgb 14.1 Hct 42.1 MCV 93.3 MCH 31.3 MCHC 33.5 RDW Std Deviation 45.1 H RDW Coeff of Anderson 13.2 Plt Count 204 MPV 11.4 Immature Gran % (Auto) 0.500 Neut % (Auto) 62.7 Lymph % (Auto) 30.7 [facility] % (Auto) 4.6 Eos % (Auto) 1.1 Baso % (Auto) 0.4 Absolute Neuts (auto) 14.8 H Absolute Lymphs (auto) 7.26 H Nucleated RBC % 0 Sodium 142 Potassium 2.4 L* Chloride 101 Carbon Dioxide 32.0 Anion Gap 9 BUN 25 H Creatinine 0.77 Estim Creat Clear Calc 32.57 Est GFR (MDRD) Af Amer 93 Est GFR (MDRD) Non-Af 77 BUN/Creatinine Ratio 32.4 H Glucose 114 H Calcium 9.6 Total Bilirubin 0.80 AST 50 H ALT 54 Alkaline Phosphatase 69 Troponin I High Sens 9.1 Total Protein 6.4 Albumin 3.7 Globulin 2.7 Albumin/Globulin Ratio 1.4 Lipase 134 Radiography Diagnostic Testing: Radiology Impression Chest X-Ray 09/20/20 04:29 IMPRESSION: No focal lung consolidative changes. No interval radiographic change. Electronically Signed: Taz Jacobs MD at 6:26 EDT Tel , Service support , Abdomen/Pelvis CT 09/20/20 04:53 IMPRESSION: Multiple dilated fluid-filled loops of small bowel throughout the abdomen. There is focal transition point within the right lower quadrant, series 601 image 63-70. Findings concerning for underlying small bowel obstruction. No pneumatosis or free air visualized. Electronically Signed: Taz Jacobs MD at 7:17 EDT Tel , Service support , Rhythm Strip Rhythm Strip: Sinus Rhythm Rate: 60 Ectopy: PAC(s) EKG Initial EKG: Attestation: I personally reviewed and interpreted this EKG as follows: Interpretation: Sinus Rhythm and No Acute Injury Pattern Comments: Frequent PACs Discharge Plan Dx/Rx/DC Orders Clinical Impression: Small bowel obstruction Disposition Disposition: Acute Care Hospital [facility]
[2020-09-20] MEDS: Morphine 2 MG/ML Syringe IV ×2 (04:37→05:23)
[2020-09-20] MEDS: Ondansetron 4 MG/2 ML Vial IV (04:37)
[2020-09-20 04:46] LABS: Absolute Lymphocyte Count 7.26 X10^3/uL (0.83-4.51); Absolute Neutrophil Count 14.8 X10^3/uL (2.0-7.7); Basophil% 0.4 % (0-1); Eosinophil# 0.27 X10^3/uL; Eosinophils% 1.1 % (0-5); Hematocrit 42.1 % (37-47); Hemoglobin 14.1 g/dL (12.0-15.0); Lymphocyte # 7.26 X10^3/ul (0.83-4.51); Lymphocyte % 30.7 % (19-41); Mean Corp Hgb Conc 33.5 g/dL (32-36); Mean Corpuscular Hgb 31.3 pg (27.0-32.0); Mean Corpuscular Volume 93.3 fL (81-99); Mean Platelet Vol. 11.4 fl (6.2-12.0); Monocyte% 4.6 % (0-10); NRBC Flagged by Analyzer 0 % (0-5); Neutrophil # 14.82 X10^3/uL (2.7-7.7); Neutrophil % 62.7 % (47-70); POSITIVE DIFFERENTIAL YES; POSITIVE MORPHOLOGY YES; Platelet Count 204 K/mm3 (150-450); RBC Distribution Width CV 13.2 % (11.6-14.6); RBC Distribution Width SD 45.1 fl (35.1-43.9); Red Blood Count 4.51 M/mm3 (4.2-5.4); White Blood Count 23.7 K/mm3 (4.4-11.0)
[2020-09-20 04:49] LABS: Differential Indicated SCAN CRITERIA MET
--- NOTE | 2020-09-20 04:53 | CT_ITS ---
STUDY: CT ABDOMEN AND PELVIS WITH CONTRAST REASON FOR EXAM: Female, 80 years old. epigastric pain RADIATION DOSAGE (If Supplied By Facility): CTDIvol = ( 18.50 ) mGy, DLP = ( 305.85 ) mGycm TECHNIQUE: Transaxial images were obtained from the dome of the diaphragm to the symphysis pubis without oral contrast. IV 100mL Isovue-370 was administered. Sagittal and coronal images were reconstructed. Individualized dose optimization techniques were used for this CT. COMPARISON: CT abdomen pelvis from 04/14/2018 FINDINGS: The visualized lung bases are unremarkable. The visualized portions of the heart demonstrate scattered coronary artery calcifications. There is a bilateral breast implants. There are multiple small hepatic hypodensities likely cysts largest measuring 1.9 cm in diameter.. Normal gallbladder and extrahepatic biliary system. Normal spleen. Normal pancreas. Normal bilateral adrenal glands. Stable tiny bilateral renal cysts. Normal visualized stomach. There are multiple fluid-filled loops of small bowel throughout the abdomen measuring up to approximately 3 cm in diameter. There are multiple colonic diverticula consistent with diverticulosis. The distal small bowel is decompressed. There is non-visualization of the appendix. There is trace fluid within a small right inguinal hernia. Large amount of retained stool throughout the colon. Correlate for constipation. There is diffuse atherosclerotic calcification of the abdominal aorta, without a demonstrated aneurysm. Normal inferior vena cava. Normal retroperitoneum. Normal urinary bladder. Normal abdominal wall. There are diffuse degenerative changes of the visualized lumbar spine. CT/Abdomen/Pelvis W IV Cont ONLY IMPRESSION: Multiple dilated fluid-filled loops of small bowel throughout the abdomen. There is focal transition point within the right lower quadrant, series 601 image 63-70. Findings concerning for underlying small bowel obstruction. No pneumatosis or free air visualized. Electronically Signed: Taz Jacobs MD at 7:17 EDT Tel , Service support ,
[2020-09-20 05:17] LABS: ALB/GLOB Ratio 1.4 RATIO (0.9-2.4); AST(SGOT) 50 U/L (15-37); Alanine Aminotransfer ALT/SGPT 54 U/L (13-56); Albumin, Serum 3.7 g/dL (3.2-5.0); Alkaline Phosphatase 69 U/L (45-117); Anion Gap 9 (5-15); BUN 25 mg/dL (7-18); BUN/Creat Ratio 32.4 RATIO (10-20); Calcium,Total 9.6 mg/dL (8.5-10.1); Chloride 101 mmol/L (98-107); Creatinine, Serum 0.77 mg/dL (0.55-1.02); EST Glomerular Filtration Rate 77 mL/min (>60); Est Glom Filt Rate - Afr Amer 93 mL/min (>60); Estimated Creatinine Clearance 32.57 ml/min; Globulin 2.7 g/dL (2.2-4.2); Glucose 114 mg/dL (74-106); Lipase 134 U/L (73-393); Potassium 2.4 mmol/L (3.5-5.1); Protein, Total 6.4 g/dL (6.4-8.2); Sodium Level 142 mmol/L (136-145); Troponin-I HS 9.1 pg/mL (3.0-53.7)
[2020-09-20] MEDS: Potassium Chloride 10mEq/100mL 10 MEQ/100 ML IV.SOLN. 100 MEQ IV BOLUS ×3 (05:48→20:04)
--- NOTE | 2020-09-20 07:41 | NURSING ---
MED SURG [facility] SMALL BOWEL OBSTRUCTION
--- NOTE | 2020-09-20 08:09 | RAD_ITS ---
STUDY: X-RAY - ABDOMEN/PELVIS REASON FOR EXAM: Female, 80 years old. ngt placement -- KUB with both diaphragms for NG/OG Verification TECHNIQUE: Single AP view of the abdomen / pelvis. COMPARISON: None. FINDINGS: Nasogastric tube coiled in the left upper car quadrant with the tip likely in the cardia the stomach. There is an unremarkable bowel gas pattern. Excreted contrast in renal collecting systems bilaterally. Normal soft tissue structures. Normal visualized osseous structures. RAD/Abdomen Single View (Portable) IMPRESSION: 1. Nasogastric tube coiled in left upper quadrant with the tip likely in the cardia of the stomach. 2. No bowel obstruction. Electronically Signed: Alf Carbone MD at 8:27 EDT Tel , Service support ,
--- NOTE | 2020-09-20 08:09 | PCM.HP.STD ---
HPI - General General Date of Admission: 09/20/20 HPI Narrative EM PENALOZA, is a 80 F who presents with abdominal pain. She reports the abdominal pain is in her upper abdomen. Patient reports this started yesterday evening. She says she has had nausea but no vomiting. She has not passed a bowel movement or had any flatus since then. No lower abdominal pain. No fevers or chills. She has never had a bowel obstruction in the past. Her only abdominal surgical history is a hysterectomy. [facility] Medical History (Updated 09/20/20 @ 07:[address] John Lindsey MD) Cervical cancer CLL (chronic lymphocytic leukemia) CML (chronic myelocytic leukemia) COPD (chronic obstructive pulmonary disease) Essential hypertension History of bilateral breast cancer Meniere disease Non-Hodgkin lymphoma Nonrheumatic mitral valve regurgitation Nonrheumatic tricuspid valve regurgitation Pneumothorax Weight loss Home Medications triamterene-hydrochlorothiazid 1 tab PO DAILY 04/19/19 [History Last Taken 04/19/19] fluticasone propionate 50 mcg/actuation nasal spray,suspension 1 spray INTRANASAL DAILY #18.2 ml 05/02/19 [Rx Last Taken Unknown] albuterol sulfate 90 mcg/actuation aerosol inhaler 2 puff INHALATION 4X/DAY #1 inhaler 11/27/19 [Rx Last Taken Unknown] budesonide-formoterol HFA 160 mcg-4.5 mcg/actuation aerosol inhaler 2 puff INHALATION BID #10.2 g 12/19/19 [Rx Last Taken Unknown] tiotropium bromide 18 mcg capsule with inhalation device 18 mcg INHALATION DAILY #30 inh 08/13/20 [Rx Last Taken Unknown] multivitamin 1 tab PO DAILY 09/20/20 [History Last Taken Unknown] Allergy/AdvReac Type Severity Reaction Status Date / Time shellfish derived Allergy Severe Anaphylaxis Verified 09/20/20 04:16 bacitracin Allergy Rash Verified 09/20/20 04:16 codeine Allergy Rash Verified 09/20/20 04:16 latex Allergy IF PT USES Verified 09/20/20 04:16 LATEX GLOVES GETS RASH WALNUTS AdvReac Swelling Uncoded 09/20/20 04:16 Family History Father Abdominal aortic aneurysm (AAA) Surgical History History of bladder surgery History of breast reconstruction History of cataract surgery History of dilatation and curettage History of lung surgery History of mastectomy Social History Smoking Status: Former smoker alcohol intake: current details: 4 glasses wine per week substance use type: does not use ROS Constitutional Constitutional: Denies anorexia or fatigue ENT HEENT: Denies abnormal hearing Cardiovascular Cardiovascular: Denies chest pain Respiratory/Chest Respiratory/Chest: Reports dyspnea on exertion; Denies cough or dyspnea Gastrointestinal Gastrointestinal: Reports abdominal pain and nausea; Denies diarrhea, dysphagia, hematemesis or vomiting Genitourinary Genitourinary: Denies difficulty urinating Musculoskeletal Musculoskeletal: Denies abnormal gait Integumentary Integumentary: Denies jaundice Neurologic Neurologic: Denies abnormal gait Psychiatric Psychiatric: Denies anxiety Endocrine Endocrinology: Denies heat intolerance Vital Signs Vital Signs Vital Signs: 09/20/20 04:18 09/20/20 05:15 09/20/20 06:47 Temperature 97.3 F L 97.7 F L Temperature Source Temporal Temporal Pulse Rate 55 L 54 L 59 L Respiratory Rate 17 17 18 Blood Pressure 143/81 H 119/78 105/86 H Blood Pressure Mean 101 91 92 Pulse Ox 95 94 99 Oxygen Delivery Method Room Air Room Air Room Air Weight Weight: 98 lb 1.691 oz Body Mass Index (BMI) 18.5 Physical Exam Const oriented x3 and no apparent distress HEENT normocephalic Eyes PERRL Neck full ROM Chest inspection of chest normal Resp normal respiratory effort Cardio regular rate and regular rhythm GI soft to palpation Inspection: Negative for abdominal distention Palpation: tender epigastric Extremity normal to inspection Results Lab / Micro Data Result Diagrams: 09/20/20 04:40 09/20/20 04:40 Labs: Laboratory Results - last 24 hr 09/20/20 04:40: WBC 23.7 H, RBC 4.51, Hgb 14.1, Hct 42.1, MCV 93.3, MCH 31.3, MCHC 33.5, RDW Std Deviation 45.1 H, RDW Coeff of Anderson 13.2, Plt Count 204, MPV 11.4, Immature Gran % (Auto) 0.500, Neut % (Auto) 62.7, Lymph % (Auto) 30.7, [place] % (Auto) 4.6, Eos % (Auto) 1.1, Baso % (Auto) 0.4, Absolute Neuts (auto) 14.8 H, Absolute Lymphs (auto) 7.26 H, Nucleated RBC % 0 09/20/20 04:40: Sodium 142, Potassium 2.4 L*, Chloride 101, Carbon Dioxide 32.0, Anion Gap 9, BUN 25 H, Creatinine 0.77, Estim Creat Clear Calc 32.57, Est GFR (MDRD) Af Amer 93, Est GFR (MDRD) Non-Af 77, BUN/Creatinine Ratio 32.4 H, Glucose 114 H, Calcium 9.6, Total Bilirubin 0.80, AST 50 H, ALT 54, Alkaline Phosphatase 69, Troponin I High Sens 9.1, Total Protein 6.4, Albumin 3.7, Globulin 2.7, Albumin/Globulin Ratio 1.4, Lipase 134 Rhythm Strip Rhythm Strip: Sinus Rhythm Rate: 60 Ectopy: PAC(s) Radiology Impression Chest X-Ray 09/20/20 04:29 IMPRESSION: No focal lung consolidative changes. No interval radiographic change. Electronically Signed: Taz Jacobs MD at 6:26 EDT Tel , Service support , Abdomen/Pelvis CT 09/20/20 04:53 IMPRESSION: Multiple dilated fluid-filled loops of small bowel throughout the abdomen. There is focal transition point within the right lower quadrant, series 601 image 63-70. Findings concerning for underlying small bowel obstruction. No pneumatosis or free air visualized. Electronically Signed: Taz Jacobs MD at 7:17 EDT Tel , Service support , Assessment & Plan Assessment/Plan (1) Small bowel obstruction: PLAN: Patient is complaining of epigastric pain with nausea. I reviewed her CT scan the patient does have dilated loops of bowel with a transition point and decompressed distal small bowel. Patient does have a surgical history of a hysterectomy. She is never had a bowel obstruction in the past. NG was placed in the ER and did return 700 cc of enteric contents. I reviewed her CT scan with her and I will admit her to the floor on IV fluids. She is hypokalemic I will replace some potassium and recheck this afternoon. Keep NG in place and check KUB in the morning. If KUB is not improved and she is not passing flatus by morning I will order a contrast study. I will also start her on antibiotics due to her elevated white count to prevent translocation of gut bacteria. Omid Garcia MD Pager: [facility] [address] [place] [address], [address] [place] [address] Office:
[2020-09-20] MEDS: Oxymetazoline 0.05% 1 SPRAY SPRAY.BTL 2 SPRAY NASAL (08:10)
[2020-09-20] MEDS: Lidocaine 2% Jelly 1 APPLIC Tube TOPICAL (08:11)
[2020-09-20] MEDS: 0.9% Normal Saline 1,000 ML 100 ML IV ×2 (09:52→17:54)
--- NOTE | 2020-09-20 10:05 | CASEMGMT ---
SHANTELL REYNAGA assessment: Face to Face with patient for initial transition planning/care coordination assessment. SHANTELL REYNAGA introduced self and role at [facility], pt voices understanding and consents to assessment. Pt is sitting up in bed in no distress with NG tube in place on room air. Pt is A/Ox4 and answers all questions appropriately. Pt's /daughter are at bedside. Care providers, pharmacy, and demographics verified. Presentation: Nausea/epigastric pain since yesterday Admitting dx: Small bowel obstruction PCP: Carmencita Specialists: Hipolito, onc; [facility]; ml Antunez Preferred Pharmacy: [facility] Insurance: MCR A/B, [employer] Prescription Benefit: MCR D Living Will/HPOA: Pt has LW/HPOA and is aware that they are on file at [facility]. Pt's , Andre Lofton, is HPOA. LNOK: Andre Lofton, ; Johanna Salas, daughter Living Arrangements: Pt states lives with in 1 story home but our planning on moving into [facility] independent living soon. Pt is independent with ADL's. Transportation: Pt states /family drive and state no transportation concerns. DME/HHC: Pt states has the following DME but does not use: cane, walker, shower chair, and grab bar. Pt also states is on 2L nc at bedtime thru [employer]. Pt states no need for any further DME. Pt states has had HHC in the past but has not been to SNF. Pt states no concerns with going home at time of discharge. Pt is retired. Pt states does not smoke cigarettes or drink ETOH. Pt states no further concerns/needs. CM to follow for any further discharge planning/needs. Advised pt to ask for CM if any further questions/concerns/needs arise, voices understanding. Pt Goal: Home Plan[place] SHANTELL REYNAGA
[2020-09-20] MEDS: Potassium Chloride 10mEq/100mL 10 MEQ/100 ML IV.SOLN. 80 MEQ IV BOLUS ×3 (11:35→18:48)
[2020-09-20] MEDS: Fluticasone 0.05% 1 SPRAY NASAL.SRY NASAL (11:36)
[2020-09-20] MEDS: Albuterol 2.5 MG/3 ML VIAL.NEB. INHALATION ×2 (13:05→19:15)
[2020-09-20 15:18] LABS: Anion Gap 10 (5-15); BUN 24 mg/dL (7-18); BUN/Creat Ratio 40.6 RATIO (10-20); Chloride 104 mmol/L (98-107); Creatinine, Serum 0.59 mg/dL (0.55-1.02); EST Glomerular Filtration Rate 105 mL/min (>60); Est Glom Filt Rate - Afr Amer 126 mL/min (>60); Estimated Creatinine Clearance 31.91 ml/min; Glucose 131 mg/dL (74-106); Potassium 3.4 mmol/L (3.5-5.1); Sodium Level 141 mmol/L (136-145)
[2020-09-20] MEDS: Budesonide Respules 0.5 MG/2 ML AMPUL.NEB. INHALATION (19:15)
[2020-09-21] VITALS (9 sets, daily range): BP systolic 107–149; BP diastolic 63–77; PULSE 68–85; RESP 12–18; TEMP 36.6–37; O2SAT 91–100
[2020-09-21] MEDS: 0.9% Normal Saline 1,000 ML 100 ML IV ×2 (03:38→16:10)
[2020-09-21] MEDS: 0.9% Saline Lock 10 ML Syringe IV (05:50)
--- NOTE | 2020-09-21 05:55 | RAD_ITS ---
HISTORY: sbo. TECHNIQUE: XR Abdomen W/ Decub and/or Erect Views. # of images incl. paperwork: 2. COMPARISON: 09/20/2020. FINDINGS: LUNG BASES: Trace right pleural effusion. FREE AIR: None seen on upright view. BOWEL GAS PATTERN: Nasogastric tube tip in the left upper quadrant in the region of the stomach. Dilated air-fluid levels in the small bowel in the midabdomen. Moderate stool in the colon. CALCIFICATIONS: Probable calcified granulomas of the liver and spleen. SOFT TISSUES: Residual contrast in the bladder. BONES: Degenerative change. RAD/Abd Decub and/or Erect(Portabl IMPRESSION: Persistent small bowel obstruction. at 0906 Reported and signed by: Blanka Duckworth MD Electronically Signed: Blanka Duckworth MD at 9:05 EDT Tel , Service support ,
[2020-09-21] MEDS: Albuterol 2.5 MG/3 ML VIAL.NEB. INHALATION ×3 (06:58→18:45)
[2020-09-21] MEDS: Budesonide Respules 0.5 MG/2 ML AMPUL.NEB. INHALATION ×2 (06:58→18:45)
--- NOTE | 2020-09-21 07:22 | PCM.PN.SRG ---
Subjective Subjective Patient reports improvement in her abdominal pain but still no flatus. Objective Data Objective Data Vital Signs: Vital Signs Temp Pulse Resp BP Pulse Ox 98.4 F 68 16 149/77 H 100 09/21/20 02:36 09/21/20 02:36 09/21/20 02:36 09/21/20 02:36 09/21/20 02:36 Oxygen Delivery Method Room Air Weight: 96 lb 2.015 oz Body Mass Index (BMI) 18.1 Intake & Output: Intake and Output for Last 24 Hours 09/19/20 09/20/20 09/21/20 23:59 23:59 23:59 Intake Total 2061.67 / 2061.67 1023.33 / 1023.33 Output Total 700 / 800 200 / 200 Balance 1361.67 / 1261.67 823.33 / 823.33 Medical Nutrition Assessment Dietitian: Nutrition Therapy Diagnosis Start: 09/20/20 15:04 Freq: Status: Active Protocol: Document 09/20/20 15:04 OSVALDO (Rec: 09/20/20 15:05 OSVALDO [id number]) Nutrition Malnutrition Evidence of Malnutrition Exists No Intake Problem Inadequate Oral Intake Etiology r/t GI dysfunction Signs/Symptoms as evidenced by NPO status. Status Active Problem Recommendation Dietitian Recommendations/Changes Recommend transitional diet with goal of regular/general diet when medically appropriate. Recommend ensure enlive 120mL PO 4x/day at medpass when diet is advanced to PO. Lab / Micro Data Result Diagrams: 09/20/20 04:40 09/20/20 14:37 Labs: Laboratory Results - last 24 hr 09/20/20 14:37: Sodium 141, Potassium 3.4 L, Chloride 104, Carbon Dioxide 27.0, Anion Gap 10, BUN 24 H, Creatinine 0.59, Estim Creat Clear Calc 31.91, Est GFR (MDRD) Af Amer 126, Est GFR (MDRD) Non-Af 105, BUN/Creatinine Ratio 40.6 H, Glucose 131 H, Calcium 9.0 Radiography Diagnostic Testing: Radiology Impression KUB X-Ray 09/20/20 08:09 IMPRESSION: 1. Nasogastric tube coiled in left upper quadrant with the tip likely in the cardia of the stomach. 2. No bowel obstruction. Electronically Signed: Alf Carbone MD at 8:27 EDT Tel , Service support , Rhythm Strip Rhythm Strip: Sinus Rhythm Rate: 60 Ectopy: PAC(s) Physical Exam Const oriented x3 and no apparent distress Resp normal respiratory effort Cardio regular rate and regular rhythm GI soft to palpation and non-tender Assessment & Plan Assessment/Plan (1) Small bowel obstruction: PLAN: X-ray this morning appears improved but the read is pending. It appears that there is gas throughout the colon with stool. The patient's NG output was minimal. Once patient begins passing flatus today I will take the NG out and start clear liquids. Awaiting morning labs. Continue antibiotics for prophylaxis until white count resolves. Omid Garcia MD Pager: [facility] [address] [place] [address], [address] [place] [address] Office:
--- NOTE | 2020-09-21 07:33 | CPS ---
patient weaned to room air.
[2020-09-21 09:21] LABS: Absolute Lymphocyte Count 5.04 X10^3/uL (0.83-4.51); Absolute Neutrophil Count 9.3 X10^3/uL (2.0-7.7); Basophil# 0.06 X10^3/uL; Basophil% 0.4 % (0-1); Eosinophil# 0.17 X10^3/uL; Eosinophils% 1.1 % (0-5); Hematocrit 39.6 % (37-47); Hemoglobin 12.9 g/dL (12.0-15.0); Lymphocyte # 5.04 X10^3/ul (0.83-4.51); Lymphocyte % 32.9 % (19-41); Mean Corp Hgb Conc 32.6 g/dL (32-36); Mean Corpuscular Hgb 30.7 pg (27.0-32.0); Mean Corpuscular Volume 94.3 fL (81-99); Mean Platelet Vol. 12.4 fl (6.2-12.0); Monocyte# 0.67 X10^3/uL; Monocyte% 4.4 % (0-10); NRBC Flagged by Analyzer 0 % (0-5); Neutrophil # 9.33 X10^3/uL (2.7-7.7); Neutrophil % 60.9 % (47-70); POSITIVE DIFFERENTIAL YES; Platelet Count 171 K/mm3 (150-450); RBC Distribution Width CV 13.7 % (11.6-14.6); RBC Distribution Width SD 47.1 fl (35.1-43.9); White Blood Count 15.3 K/mm3 (4.4-11.0)
[2020-09-21 09:30] LABS: Differential Indicated SCAN CRITERIA MET
[2020-09-21 09:43] LABS: Anion Gap 8 (5-15); BUN 23 mg/dL (7-18); Calcium,Total 8.3 mg/dL (8.5-10.1); Chloride 110 mmol/L (98-107); Creatinine, Serum 0.66 mg/dL (0.55-1.02); EST Glomerular Filtration Rate 93 mL/min (>60); Est Glom Filt Rate - Afr Amer 112 mL/min (>60); Estimated Creatinine Clearance 31.91 ml/min; Glucose 90 mg/dL (74-106); Magnesium 1.6 mg/dL (1.6-2.6); Potassium 3.2 mmol/L (3.5-5.1); Sodium Level 144 mmol/L (136-145)
[2020-09-21 10:02] LABS: Differential Comment SCANNED
[2020-09-21] MEDS: Enoxaparin 40 MG/0.4 ML Syringe SC (10:35)
[2020-09-21] MEDS: Potassium Chloride 10mEq/100mL 10 MEQ/100 ML IV.SOLN. 80 MEQ IV BOLUS (12:41)
[2020-09-21] MEDS: Potassium Chloride 10mEq/100mL 10 MEQ/100 ML IV.SOLN. 100 MEQ IV BOLUS ×2 (13:49→14:49)
[2020-09-22] VITALS (7 sets, daily range): BP systolic 109–136; BP diastolic 65–74; PULSE 64–82; RESP 14–18; TEMP 36.4–37.1; O2SAT 96–100
[2020-09-22] MEDS: 0.9% Normal Saline 1,000 ML 100 ML IV (02:10)
[2020-09-22 06:02] LABS: Absolute Lymphocyte Count 4.53 X10^3/uL (0.83-4.51); Absolute Neutrophil Count 6.4 X10^3/uL (2.0-7.7); Basophil# 0.07 X10^3/uL; Basophil% 0.6 % (0-1); Eosinophil# 0.38 X10^3/uL; Eosinophils% 3.2 % (0-5); Hematocrit 35.4 % (37-47); Hemoglobin 11.7 g/dL (12.0-15.0); Lymphocyte # 4.53 X10^3/ul (0.83-4.51); Lymphocyte % 37.7 % (19-41); Mean Corp Hgb Conc 33.1 g/dL (32-36); Mean Corpuscular Hgb 31.1 pg (27.0-32.0); Mean Corpuscular Volume 94.1 fL (81-99); Monocyte# 0.57 X10^3/uL; Monocyte% 4.7 % (0-10); NRBC Flagged by Analyzer 0 % (0-5); Neutrophil # 6.41 X10^3/uL (2.7-7.7); Neutrophil % 53.3 % (47-70); Platelet Count 155 K/mm3 (150-450); RBC Distribution Width CV 13.9 % (11.6-14.6); RBC Distribution Width SD 47.8 fl (35.1-43.9); Red Blood Count 3.76 M/mm3 (4.2-5.4)
[2020-09-22 06:34] LABS: Anion Gap 5 (5-15); BUN 15 mg/dL (7-18); BUN/Creat Ratio 34.9 RATIO (10-20); Calcium,Total 7.1 mg/dL (8.5-10.1); Chloride 111 mmol/L (98-107); Creatinine, Serum 0.43 mg/dL (0.55-1.02); EST Glomerular Filtration Rate 151 mL/min (>60); Est Glom Filt Rate - Afr Amer 183 mL/min (>60); Estimated Creatinine Clearance 31.91 ml/min; Glucose 74 mg/dL (74-106); Potassium 3.1 mmol/L (3.5-5.1); Sodium Level 143 mmol/L (136-145)
--- NOTE | 2020-09-22 07:15 | PCM.PN.SRG ---
Subjective Subjective Patient reports no nausea or vomiting overnight and tolerated clears. She is not passing any flatus. She had a small bowel movement yesterday. Objective Data Objective Data Vital Signs: Vital Signs Temp Pulse Resp BP Pulse Ox 98.5 F 65 14 136/70 H 98 09/22/20 02:06 09/22/20 02:06 09/22/20 02:06 09/22/20 02:06 09/22/20 02:06 Oxygen Flow Rate (L/min) 2 Oxygen Delivery Method Nasal Cannula Weight: 96 lb 2.015 oz Body Mass Index (BMI) 18.1 Intake & Output: Intake and Output for Last 24 Hours 09/20/20 09/21/20 09/22/20 23:59 23:59 23:59 Intake Total 2061.67 / 2061.67 3200.66 / 3200.66 1521.67 / 1521.67 Output Total 700 / 800 350 / 350 Balance 1361.67 / 1261.67 2850.66 / 2850.66 1521.67 / 1521.67 Medical Nutrition Assessment Dietitian: Nutrition Therapy Diagnosis Start: 09/20/20 15:04 Freq: Status: Active Protocol: Document 09/20/20 15:04 OSVALDO (Rec: 09/20/20 15:05 OSVALDO [id number]) Nutrition Malnutrition Evidence of Malnutrition Exists No Intake Problem Inadequate Oral Intake Etiology r/t GI dysfunction Signs/Symptoms as evidenced by NPO status. Status Active Problem Recommendation Dietitian Recommendations/Changes Recommend transitional diet with goal of regular/general diet when medically appropriate. Recommend ensure enlive 120mL PO 4x/day at medpass when diet is advanced to PO. Lab / Micro Data Result Diagrams: 09/22/20 04:35 09/22/20 04:35 Labs: Laboratory Results - last 24 hr 09/21/20 08:18: WBC 15.3 H, RBC 4.20, Hgb 12.9, Hct 39.6, MCV 94.3, MCH 30.7, MCHC 32.6, RDW Std Deviation 47.1 H, RDW Coeff of Andersno 13.7, Plt Count 171, MPV 12.4 H, Immature Gran % (Auto) 0.300, Neut % (Auto) 60.9, Lymph % (Auto) 32.9, [place] % (Auto) 4.4, Eos % (Auto) 1.1, Baso % (Auto) 0.4, Absolute Neuts (auto) 9.3 H, Absolute Lymphs (auto) 5.04 H, Nucleated RBC % 0, Differential Comment SCANNED 09/21/20 08:18: Sodium 144, Potassium 3.2 L, Chloride 110 H, Carbon Dioxide 26.0, Anion Gap 8, BUN 23 H, Creatinine 0.66, Estim Creat Clear Calc 31.91, Est GFR (MDRD) Af Amer 112, Est GFR (MDRD) Non-Af 93, BUN/Creatinine Ratio 35.0 H, Glucose 90, Calcium 8.3 L, Magnesium 1.6 09/22/20 04:35: Sodium 143, Potassium 3.1 L, Chloride 111 H, Carbon Dioxide 27.0, Anion Gap 5, BUN 15, Creatinine 0.43 L, Estim Creat Clear Calc 31.91, Est GFR (MDRD) Af Amer 183, Est GFR (MDRD) Non-Af 151, BUN/Creatinine Ratio 34.9 H, Glucose 74, Calcium 7.1 L 09/22/20 04:35: WBC 12.0 H, RBC 3.76 L, Hgb 11.7 L, Hct 35.4 L, MCV 94.1, MCH 31.1, MCHC 33.1, RDW Std Deviation 47.8 H, RDW Coeff of Anderson 13.9, Plt Count 155, MPV 12.0, Immature Gran % (Auto) 0.500, Neut % (Auto) 53.3, Lymph % (Auto) 37.7, [place] % (Auto) 4.7, Eos % (Auto) 3.2, Baso % (Auto) 0.6, Absolute Neuts (auto) 6.4, Absolute Lymphs (auto) 4.53 H, Nucleated RBC % 0 Radiography Diagnostic Testing: Radiology Impression Abdomen X-Ray 09/21/20 05:55 IMPRESSION: Persistent small bowel obstruction. at 0906 Reported and signed by: Blanka Duckworth MD Electronically Signed: Blanka Duckworth MD at 9:05 EDT Tel , Service support , Rhythm Strip Rhythm Strip: Sinus Rhythm Rate: 60 Ectopy: PAC(s) Physical Exam Const oriented x3 and no apparent distress Resp normal respiratory effort Cardio regular rate GI soft to palpation and non-tender Assessment & Plan Assessment/Plan (1) Small bowel obstruction: PLAN: The patient had a small bowel movement was started on clear liquids yesterday but she is not passing any flatus. She denies any abdominal pain or nausea or vomiting and tolerated clears. As she is not passing flatus I will do a small bowel follow-through with Gastrografin. Once she has more significant bowel function I will advance her diet. I will continue the antibiotics as her white count is still elevated. Omid Garcia MD Pager: [facility] [address] [place] [address], [address] [place] [address] Office:
[2020-09-22] MEDS: Budesonide Respules 0.5 MG/2 ML AMPUL.NEB. INHALATION ×2 (07:20→19:05)
[2020-09-22] MEDS: Albuterol 2.5 MG/3 ML VIAL.NEB. INHALATION ×3 (07:22→19:05)
--- NOTE | 2020-09-22 07:24 | RAD_ITS ---
STUDY: FLUOROSCOPIC SMALL BOWEL FOLLOW-THROUGH WITH SERIAL FILMS, 09/22/2020 REASON FOR EXAM: Female, 80 years old. Small bowel obstruction TECHNIQUE: 2 KUB images obtained at 90 minutes and 4 hours after oral administration of GASTROGRAFIN contrast. 120 mL GASTROGRAFIN and 120 mL water administered orally. COMPARISON: X-ray abdomen 09/21/2020 FINDINGS: At 90 minutes after contrast administration there is persistent contrast retained within the gastric fundus and a small amount within the distal stomach, suggesting a prolonged lag phase and delayed gastric emptying. The stomach is empty on the four-hour film. At 90 minutes, contrast fills the entirety of the duodenum, jejunum and ileum and has just entered the cecum. No apparent significant delay in small bowel transit. At 4 hours, contrast has emptied from the duodenum and majority of jejunum, fills the ileum, and has advanced through the large bowel to the level of the sigmoid. The small and large bowel are nondilated. There are no features of acute obstruction. There is moderate distributed stool in the large bowel, similar to that seen on the x-ray abdomen of 09/21/2020, potentially manifestation of mild constipation. RAD/Small Bowel Series Only IMPRESSION: 1. There is evidence of delayed gastric emptying. 2. There is no evidence of bowel obstruction. Electronically Signed: Alf Maier MD at 12:36 EDT Tel , Service support ,
[2020-09-22] MEDS: Enoxaparin 40 MG/0.4 ML Syringe SC (07:59)
--- NOTE | 2020-09-22 10:45 | US_ITS ---
STUDY: ABDOMINAL ULTRASOUND - RIGHT UPPER QUADRANT REASON FOR VISIT: Female, 80 years old abdominal pain TECHNIQUE: Ultrasound evaluation of the right upper quadrant was performed with real-time and static ashby-scale imaging. TECHNICAL QUALITY: Adequate. COMPARISON: CT scan of the pelvis obtained on 09/20/2020 FINDINGS: Liver the liver is normal in size and shape. There is a simple cyst measuring 2.12 x 1.616 in the superior aspect the left lobe of the liver. The intrahepatic biliary tree appears to be normal. Hepatopedal flow is seen in the portal vein. The gallbladder is normal. The common bile duct measures 5.9 mm opacity over the right portal vein. The head body and tail of the pancreas are normal. No fluid is noted in MORISON''s pouch. The right kidney contains a simple cyst measuring 1 x 0.8 x 0.8 cm in size. The right kidney measures 9 x 4.1 x 1.3 cm in size and no evidence of hydronephrosis is identified. US/Gallbladder IMPRESSION: Normal gallbladder ultrasound. Electronically Signed: Andre Rivas DO at 10:35 EDT Tel , Service support ,
[2020-09-23 02:00] VITALS: BP 134/81; PULSE 66; RESP 18; TEMP 37.1; O2SAT 98
[2020-09-23 06:42] VITALS: PULSE 85; RESP 16; O2SAT 97
[2020-09-23] MEDS: Budesonide Respules 0.5 MG/2 ML AMPUL.NEB. INHALATION (06:42)
[2020-09-23] MEDS: Albuterol 2.5 MG/3 ML VIAL.NEB. INHALATION (06:42)
--- NOTE | 2020-09-23 07:57 | PCM.PN.SRG ---
Subjective Subjective Patient reports she has had several bowel movements and is passing flatus with no abdominal pain or nausea. Objective Data Objective Data Vital Signs: Vital Signs Temp Pulse Resp BP Pulse Ox 98.8 F 66 18 134/81 H 98 09/23/20 02:00 09/23/20 02:00 09/23/20 02:00 09/23/20 02:00 09/23/20 02:00 Oxygen Flow Rate (L/min) 3 Oxygen Delivery Method Nasal Cannula Weight: 96 lb 2.015 oz Body Mass Index (BMI) 18.1 Intake & Output: Intake and Output for Last 24 Hours 09/21/20 09/22/20 09/23/20 23:59 23:59 23:59 Intake Total 3200.66 / 3200.66 2271.67 / 2391.67 120 / 120 Output Total 350 / 350 Balance 2850.66 / 2850.66 2271.67 / 2391.67 120 / 120 Medical Nutrition Assessment Dietitian: Nutrition Therapy Diagnosis Start: 09/20/20 15:04 Freq: Status: Active Protocol: Document 09/20/20 15:04 OSVALDO (Rec: 09/20/20 15:05 OSVALDO [id number]) Nutrition Malnutrition Evidence of Malnutrition Exists No Intake Problem Inadequate Oral Intake Etiology r/t GI dysfunction Signs/Symptoms as evidenced by NPO status. Status Active Problem Recommendation Dietitian Recommendations/Changes Recommend transitional diet with goal of regular/general diet when medically appropriate. Recommend ensure enlive 120mL PO 4x/day at medpass when diet is advanced to PO. Lab / Micro Data Result Diagrams: 09/22/20 04:35 09/22/20 04:35 Radiography Diagnostic Testing: Radiology Impression Small Bowel X-Ray 09/22/20 07:24 IMPRESSION: 1. There is evidence of delayed gastric emptying. 2. There is no evidence of bowel obstruction. Electronically Signed: Alf Maier MD at 12:36 EDT Tel , Service support , Rhythm Strip Rhythm Strip: Sinus Rhythm Rate: 60 Ectopy: PAC(s) Physical Exam Const oriented x3 and no apparent distress Resp normal respiratory effort GI soft to palpation and non-tender Assessment & Plan Assessment/Plan (1) Small bowel obstruction: PLAN: The patient reports that she is passing flatus and having bowel movements with no abdominal pain. Small bowel follow-through showed passage of contrast into the colon. Patient tolerated regular diet after small bowel follow-through yesterday with no nausea. Patient is currently n.p.o. awaiting ultrasound of the gallbladder she has had longstanding right upper quadrant pain. I will also start the patient on a PPI Omid Garcia MD Pager: [facility] [address] [place] [address] Office:
[2020-09-23 09:10] VITALS: BP 119/68; PULSE 63; RESP 12; TEMP 36.8; O2SAT 98
--- NOTE | 2020-09-23 10:32 | DS.PCM_ITS ---
Providers Date of Admission: 09/20/20 Primary Care Physician: Dr. Donnell Tse MD Reason For Visit: SMALL BOWEL OBSTRUCTION Diagnosis Discharge Diagnosis (1) Small bowel obstruction: Status: Acute Code(s): K56.609 - Unspecified intestinal obstruction, unspecified as to partial versus complete obstruction Medications at Discharge Home Medications triamterene-hydrochlorothiazid 1 tab PO DAILY 04/19/19 fluticasone propionate 50 mcg/actuation nasal spray,suspension 1 spray INTRANASAL DAILY #18.2 ml 05/02/19 albuterol sulfate 90 mcg/actuation aerosol inhaler 2 puff INHALATION 4X/DAY #1 inhaler 11/27/19 budesonide-formoterol HFA 160 mcg-4.5 mcg/actuation aerosol inhaler 2 puff INHALATION BID #10.2 g 12/19/19 tiotropium bromide 18 mcg capsule with inhalation device 18 mcg INHALATION DAILY #30 inh 08/13/20 multivitamin 1 tab PO DAILY 09/20/20 Hospital Course Summary of Care Provided Hospital Course: Patient was admitted with a small bowel obstruction. The patient started passing small bowel movements the day after admission and was given a small bowel follow-through. The small bowel follow-through showed de layed emptying of the stomach but clear passage into the colon. The patient has had several bowel movements overnight and has no abdominal pain this morning. She was started on a regular diet which she tolerated and then was transferred home patient was concern for pain after eating that has been going on for the last few years and so an ultrasound the gallbladder was ordered which appears normal. Medical Records Data Medical Nutrition Assessment Dietitian: Nutrition Therapy Diagnosis Start: 09/20/20 15: 04 Freq: Status: Active Protocol: Document 09/20/20 15:04 OSVALDO (Rec: 09/20/20 15:05 OSVALDO [id number]) Nutrition Malnutrition Evidence of Malnutrition Exists No Intake Problem Inadequate Oral Intake Etiology r/t GI dysfunction Signs/Symptoms as evidenced by NPO status. Status Active Problem Recommendation Dietitian Recommendations/Changes Recommend transitional diet with goal of regular/general diet when medically appropriate. Recommend ensure enlive 120mL PO 4x/day at medpass when diet is advanced to PO. Weight / BMI Weight Weight: 96 lb 2.015 oz Body Mass Index (BMI) 18.1 ABG / Lab / Microbiology Data Result Diagrams: 09/22/20 04:35 08/01/21 04:35 Radiography Diagnostic Testing: Radiology Impression Small Bowel X-Ray 09/22/20 07:24 IMPRESSION: 1. There is evidence of delayed gastric emptying. 2. There is no evidence of bowel obstruction. Electronically Signed: Alf Maier MD at 12:36 EDT Tel , Service support , D/C Instructions Discharge Diet: Light diet - advance as tolerated Discharge Activity: No Restrictions Weight Bearing Status: Weight bearing as tolerated Please Follow Up With: Omid Garcia MD When: Please call to schedule 1 week follow up appointment. [phone] Meaningful Use Info Meaningful Use Diagnoses (Choose all that apply): None applicable Discharge Plan Admission Admit Date/Time: 09/20/20 07:57 Attending Provider: Omid Garcia Primary Care Provider: Donnell Tse Discharge Orders/Prescriptions Prescriptions: Continued fluticasone propionate 50 mcg/actuation spray,suspension 1 spray INTRANASAL DAILY Qty: 18.2 RF: 2 budesonide-formoterol 160-4.5 mcg/actuation HFA aerosol inhaler 2 puff inhalation BID Qty: 10.2 RF: 6 triamterene-hydrochlorothiazid 1 EACH tablet 1 tab PO DAILY RF: 0 multivitamin Tablet 1 tab PO DAILY RF: 0 albuterol sulfate 90 mcg/actuation HFA aerosol inhaler 2 puff inhalation 4X/DAY Qty: 1 RF: 2 tiotropium bromide 18 mcg capsule, w/inhalation device 18 mcg inhalation DAILY Qty: 30 RF: 6 Referrals / Follow Up: Donnell Tse MD [Primary Care Provider] - Disposition Disposition (needs filled in before D/C Order can be placed): Home, Self Care
[2020-09-23] MEDS: Fluticasone 0.05% 1 SPRAY NASAL.SRY NASAL (10:45)
--- NOTE | 2020-09-23 10:46 | CASEMGMT ---
This RN CM to room to check in with pt regarding discharge plan/needs. Pt declines any need for further resources and states no concerns with going home with . Pt voices no further questions/concerns/needs and thanks this RN RONNELL. SStkurt STINSON CM
[2020-09-23] MEDS: Pantoprazole Sodium 40 MG Tablet PO (10:49)
--- NOTE | 2020-09-23 11:10 | PHA.DC.MR ---
Pharmacy Service has performed discharge medication reconciliation for this patient. The patient's discharge medication list was reviewed for discrepancies and discrepancies were resolved. Home Medications triamterene-hydrochlorothiazid 1 tab PO DAILY 04/19/19 fluticasone propionate 50 mcg/actuation nasal spray,suspension 1 spray INTRANASAL DAILY #18.2 ml 05/02/19 albuterol sulfate 90 mcg/actuation aerosol inhaler 2 puff INHALATION 4X/DAY #1 inhaler 11/27/19 budesonide-formoterol HFA 160 mcg-4.5 mcg/actuation aerosol inhaler 2 puff INHALATION BID #10.2 g 12/19/19 tiotropium bromide 18 mcg capsule with inhalation device 18 mcg INHALATION DAILY #30 inh 08/13/20 multivitamin 1 tab PO DAILY 09/20/20 pantoprazole 40 mg PO DAILY 30 Days #30 tab 09/23/20
--- NOTE | 2020-09-24 13:38 | CASEMGMT ---
SHANTELL REYNAGA Discharge Follow-Up Phone Call. Aurea: Shazia Strata: 3 Discharge Date: 09/23/20 Adm Dx: SBO Call to pt to inquire about how she has been doing since being discharged from the hospital. Pt's answered and stated pt is not home, that she went to get her hair done w/their daughter. He states she has been doing very well. He states she slept well last night and has had a regular bowel movement. They were able to get the new prescription/Protonix prior to leaving the hospital and pt took the 1st dose today and is taking her other medications as ordered. He is aware of the appt scheduled w/Carmencita 10/01 and they called and got an appt scheduled w/Jose the same day. Their daughter is planning on taking pt to both of those appts that day. He denies having any questions or concerns and thanked SHANTELL REYNAGA for calling. Kimberli GARNER RN, CM
== END 2020-09-23 11:52 | disposition home or self-care (01) | DRG 390 ==
LOC: ED 07:30 → PCU 08:10
PROVIDERS: Admitting Provider Surgery; Emergency Provider Emergency Medicine; PCP Family Medicine; Visit Provider Surgery
DX: K56.609 Unspecified intestinal obstruction, unspecified as to partial versus complete obstruction (principal); E87.6 Hypokalemia; I49.1 Atrial premature depolarization; I10 Essential (primary) hypertension; I34.0 Nonrheumatic mitral (valve) insufficiency; I36.1 Nonrheumatic tricuspid (valve) insufficiency; H81.09 Meniere's disease, unspecified ear; J44.9 Chronic obstructive pulmonary disease, unspecified; Z85.3 Personal history of malignant neoplasm of breast; Z85.6 Personal history of leukemia; Z85.41 Personal history of malignant neoplasm of cervix uteri; Z90.710 Acquired absence of both cervix and uterus; Z79.899 Other long term (current) drug therapy; Z87.891 Personal history of nicotine dependence
CPT/HCPCS: 36415; 71045; 74018; 74019; 74177; 74250; 76705; 80048; 80053; 83690; 83735; 84484; 85025; 93005; 94640; 99285; J7030; J7040; Q9967; A4216; J2405

== ENCOUNTER 2020-12-13 23:42 | Observation (INO) | payer MEDICARE, OTHER, SELFPAY ==
[2020-12-13 23:45] VITALS: BP 147/76; PULSE 76; RESP 16; TEMP 36.4; O2SAT 97; BMI 18.8
[2020-12-14] VITALS (9 sets, daily range): BP systolic 109–131; BP diastolic 71–92; PULSE 58–79; RESP 14–16; TEMP 36.6–36.8; O2SAT 95–99; BMI 17.6
--- NOTE | 2020-12-14 00:03 | EKG12_ITS ---
Test Reason : CP Blood Pressure : / mmHG Vent. Rate : 073 BPM Atrial Rate : 073 BPM P-R Int : 118 ms QRS Dur : 096 ms QT Int : 378 ms P-R-T Axes : 064 059 062 degrees QTc Int : 416 ms Normal sinus rhythm with PAC's Nonspecific ST abnormality Abnormal ECG Confirmed by BETTIE SNOW, QUETA ([id number]), graphics editor JEREMIE MENDOZA ([id number]) on 12/17/2020 12:20:42 PM Referred By: MR Confirmed By:QUETA ALEXANDRE MD
--- NOTE | 2020-12-14 00:06 | RAD_ITS ---
STUDY: X-RAY CHEST REASON FOR EXAM: Female, 80 years old. chest pain TECHNIQUE: 1 view COMPARISON: 09/20/2020 FINDINGS: Cardiomediastinal silhouette is unremarkable. Costophrenic angles are sharp. Lungs are hyperinflated but clear. The trachea is midline. There is no pneumothorax. Multilevel thoracic spondylosis is noted. RAD/Chest 1 View (Portable) IMPRESSION: No acute cardiopulmonary process. Electronically Signed: Niranjan Cabrera MD at 0:55 EDT Tel , Service support ,
[2020-12-14] MEDS: Aspirin 81 MG TAB.CHEW 324 MG PO (00:14)
[2020-12-14 00:16] LABS: Absolute Lymphocyte Count 6.07 X10^3/uL (0.83-4.51); Absolute Neutrophil Count 16.8 X10^3/uL (2.0-7.7); Basophil% 0.4 % (0-1); Eosinophil# 0.26 X10^3/uL; Hematocrit 46.6 % (37-47); Hemoglobin 15.1 g/dL (12.0-15.0); Lymphocyte # 6.07 X10^3/ul (0.83-4.51); Lymphocyte % 24.1 % (19-41); Mean Corp Hgb Conc 32.4 g/dL (32-36); Mean Corpuscular Hgb 30.7 pg (27.0-32.0); Mean Corpuscular Volume 94.7 fL (81-99); Mean Platelet Vol. 11.9 fl (6.2-12.0); Monocyte# 1.81 X10^3/uL; Monocyte% 7.2 % (0-10); NRBC Flagged by Analyzer 0 % (0-5); Neutrophil # 16.79 X10^3/uL (2.7-7.7); Neutrophil % 66.8 % (47-70); POSITIVE DIFFERENTIAL YES; Platelet Count 236 K/mm3 (150-450); RBC Distribution Width CV 13.3 % (11.6-14.6); RBC Distribution Width SD 46.7 fl (35.1-43.9); Red Blood Count 4.92 M/mm3 (4.2-5.4); White Blood Count 25.2 K/mm3 (4.4-11.0)
[2020-12-14 00:19] LABS: Differential Indicated SCAN CRITERIA MET
[2020-12-14 00:35] LABS: Anion Gap 7 (5-15); BUN 31 mg/dL (7-18); Calcium,Total 10.1 mg/dL (8.5-10.1); Chloride 102 mmol/L (98-107); Creatinine, Serum 0.94 mg/dL (0.55-1.02); EST Glomerular Filtration Rate 61 mL/min (>60); Est Glom Filt Rate - Afr Amer 74 mL/min (>60); Estimated Creatinine Clearance 35.35 ml/min; Glucose 119 mg/dL (74-106); Potassium 3.2 mmol/L (3.5-5.1); Sodium Level 144 mmol/L (136-145); Troponin-I HS 5 pg/mL (3.0-54.0)
[2020-12-14 01:12] LABS: Differential Comment SCANNED
[2020-12-14 01:54] LABS: Troponin-I HS 6 pg/mL (3.0-54.0)
--- NOTE | 2020-12-14 02:23 | PCM.HP.STD ---
HPI - General General Date of Admission: 12/14/20 Date of Service: 12/14/20 Chief Complaint: Nausea, emesis, Chest pain HPI Narrative The patient is a 80 y/o F w/ PMHx: CML/CLL, Non-hodgkins lymphoma, Hx BL Breast CA, Chronic COPD, HTN, HLD, GERD who presents to the [facility] ED on 12/14/20 with history of intermittently primarily neck discomfort which then radiates to the shoulder region and occasionally into the chest, awakening her from sleep, primarily right-sided however she does note dull sensation also in the left but has less sensation secondary to history of breast cancer and mastectomy reported as dull aching and eventually sharp stabbing lasting seconds to minutes with associated diaphoresis, dyspnea, nausea with occasional emesis eventually completely resolving she notes often following an emesis prompting eventual ED evaluation. Following patient recent admission with bowel obstruction she has been very diligently attempting to keep her bowels very soft taking intermittently laxatives as opposed to bowel softeners reporting intermittent occasional diarrhea following his laxatives purportedly potentially every second day. Work-up in the ED included T 97.6, heart rate 76, BP 147/76, respiratory rate 16, 97% on room air, CBC with WBC 25.2, hemoglobin 15.1, platelets 236 with left shift and also lymphocytosis, BMP potassium 3.2, carbon oxide 35, BUN/creatinine 31/0.94, glucose 119, initial high-sensitivity cardiac troponin 5 with repeat 6, chest x-ray with no acute cardiopulmonary findings, rapid Covid testing negative, EKG with rate controlled new onset atrial fibrillation. In the ED patient administered ASA 324 mg po x 1. [facility] [place] Medical History (Updated 12/14/20 @ 02:[address] Amina Cespedes MD) Cervical cancer CLL (chronic lymphocytic leukemia) CML (chronic myelocytic leukemia) COPD (chronic obstructive pulmonary disease) Essential hypertension History of bilateral breast cancer Meniere disease Non-Hodgkin lymphoma Nonrheumatic mitral valve regurgitation Nonrheumatic tricuspid valve regurgitation Pneumothorax Weight loss Home Medications triamterene-hydrochlorothiazid 1 tab PO DAILY 04/19/19 [History Last Taken 09/19/20] albuterol sulfate 90 mcg/actuation aerosol inhaler 2 puff INHALATION 4X/DAY #1 inhaler 11/27/19 [Rx Last Taken 09/19/20] budesonide-formoterol HFA 160 mcg-4.5 mcg/actuation aerosol inhaler 2 puff INHALATION BID #10.2 g 12/19/19 [Rx Last Taken 09/19/20] tiotropium bromide 18 mcg capsule with inhalation device 18 mcg INHALATION DAILY #30 inh 08/13/20 [Rx Last Taken 09/19/20] multivitamin 1 tab PO DAILY 09/20/20 [History Last Taken 09/19/20] alendronate 70 mg PO QWEEK 12/13/20 [History Last Taken Unknown] benzonatate 100 mg PO TID PRN 12/13/20 [History Last Taken Unknown] Allergy/AdvReac Type Severity Reaction Status Date / Time shellfish derived Allergy Severe Anaphylaxis Verified 12/13/20 23:52 bacitracin Allergy Rash Verified 12/13/20 23:52 codeine Allergy Rash Verified 12/13/20 23:52 latex Allergy IF PT USES Verified 12/13/20 23:52 LATEX GLOVES GETS RASH WALNUTS AdvReac Swelling Uncoded 12/13/20 23:52 Family History (Updated 12/14/20 @ 03:[address] Amina Cespedes MD) Father Abdominal aortic aneurysm (AAA) Mother Alzheimers disease Surgical History History of bladder surgery History of breast reconstruction History of cataract surgery History of dilatation and curettage History of lung surgery History of mastectomy Social History (Updated 12/14/20 @ 03:[address] Amina Cespedes MD) household members: spouse Smoking Status: Former smoker how long ago did patient quit smokin ppd since 20s, quiting ~ 15 years prior to current presentation. alcohol intake: current details: 4 glasses wine per week substance use type: does not use ROS ROS Narrative Admission Review of Systems: CONSTITUTIONAL: No weight loss, fever, chills, + weakness or fatigue. HEENT: Eyes: No visual loss, blurred vision, double vision or yellow sclerae. Ears, Nose, Throat: No hearing loss, sneezing, congestion, runny nose or sore throat. SKIN: No rash or itching, lesions, wounds. CARDIOVASCULAR: + chest pain, No palpitations, edema, orthopnea, syncopal events. RESPIRATORY: + shortness of breath, No cough or sputum, wheezing, hemoptysis. GASTROINTESTINAL: + N/V, constipation rotating with diarrhea with usage laxatives, No anorexia, abdominal pain, melena, BRBPR. GENITOURINARY: No dysuria, frequency, urgency or retention. NEUROLOGICAL: No headache, dizziness, syncope, paralysis, ataxia, numbness or tingling in the extremities, focal weakness, change in bowel or bladder control, seizure. MUSCULOSKELETAL:+ muscle, back pain, joint pain or stiffness. HEMATOLOGIC: No anemia, bleeding or bruising. LYMPHATICS: No enlarged nodes. No history of splenectomy. PSYCHIATRIC: No history of depression or anxiety. ENDOCRINOLOGIC: No reports of sweating, cold or heat intolerance. No polyuria or polydipsia. ALLERGIES: + history of asthma, hives, eczema or rhinitis. Vital Signs Vital Signs Vital Signs: 12/13/20 23:45 12/13/20 23:48 12/14/20 00:11 Temperature 97.6 F L Temperature Source Oral Pulse Rate 76 Respiratory Rate 16 Respiratory Effort Normal Non-Labored Blood Pressure 147/76 H Blood Pressure Mean 99 Pulse Ox 97 Oxygen Delivery Method Room Air Room Air Weight Weight: 100 lb 1.438 oz Body Mass Index (BMI) 18.8 Physical Exam Narrative Physical Examination: General: Awake, alert, oriented x 3 and cooperative, seated upright in the ED bed in no apparent distress. Skin: Normal color, normal turgor, no icterus, no cyanosis. HEENT: AT/NC, EOMI, PERRLA, MMM, no carotid bruits or JVD noted. Lungs: Mildly diminished, greater bases, appropriate effort, no rales, ronchi or wheezing. Heart: Irregular; no gallop, rub audible, reproducible discomfort to palpation of the right lateral neck region which she states is the pain that she is having when she initially starts to have these episodes. Abdomen: Soft, NTTP, ND, normal BS, no HSM. Extremities: No cyanosis, clubbing, or edema. Neurological: Patient awake, alert, oriented as noted, cognitive function intact; pupils equally reactive to light and accommodation, cranial nerves II-XII grossly normal, moving all 4 extremities, no focal deficits, strength mildly to moderately global decrease secondary to acute presentation complaints. Psychiatric: Affect appears currently fatigued otherwise normal, no acute evidence of depressive or anxiety feelings. Results Lab / Micro Data Result Diagrams: 12/13/20 23:28 12/13/20 23:28 Labs: Laboratory Results - last 24 hr 12/13/20 23:28: WBC 25.2 H, RBC 4.92, Hgb 15.1 H, Hct 46.6, MCV 94.7, MCH 30.7, MCHC 32.4, RDW Std Deviation 46.7 H, RDW Coeff of Anderson 13.3, Plt Count 236, MPV 11.9, Immature Gran % (Auto) 0.500, Neut % (Auto) 66.8, Lymph % (Auto) 24.1, Citrus % (Auto) 7.2, Eos % (Auto) 1.0, Baso % (Auto) 0.4, Absolute Neuts (auto) 16.8 H, Absolute Lymphs (auto) 6.07 H, Nucleated RBC % 0, Differential Comment SCANNED, Diff Path Review June12/13/20 23:28: Sodium 144, Potassium 3.2 L, Chloride 102, Carbon Dioxide 35.0 H, Anion Gap 7, BUN 31 H, Creatinine 0.94, Estim Creat Clear Calc 35.35, Est GFR (MDRD) Af Amer 74, Est GFR (MDRD) Non-Af 61, BUN/Creatinine Ratio 33.0 H, Glucose 119 H, Calcium 10.1, Troponin I High Sens 5 12/14/20 01:30: Troponin I High Sens 6 Micro: Microbiology 12/14/20 00:10 Nasal Secretion SARS-CoV-2 Antigen (Rapid) - Final Radiology Impression Chest X-Ray 12/14/20 00:06 IMPRESSION: No acute cardiopulmonary process. Electronically Signed: Niranjan Cabrera MD at 0:55 EDT Tel , Service support , Assessment & Plan Assessment/Plan (1) Chest pain: QUALIFIERS: Chest pain type: unspecified Qualified Code(s): R07.9 - Chest pain, unspecified PLAN: The patient is a 80 y/o F w/ PMHx: CML/CLL, Non-hodgkins lymphoma, Hx BL Breast CA, Chronic COPD, HTN, HLD, GERD who presents to the [facility] ED on 12/14/20 with history of intermittently primarily neck discomfort which then radiates to the shoulder region and occasionally into the chest, awakening her from sleep, primarily right-sided however she does note dull sensation also in the left but has less sensation secondary to history of breast cancer and mastectomy reported as dull aching and eventually sharp stabbing lasting seconds to minutes with associated diaphoresis, dyspnea, nausea with occasional emesis eventually completely resolving she notes often following an emesis. 1. Atypical chest pain with ? New Onset Paroxsymal atrial fibrillation (Lower suspicion for PAF, appears more consistent with sinus arrhythmia): EKG in ED question sinus arrhythmia versus A. fib per discussion with ED physician, noted to be primarily sinus arrhythmia on monitor which patient admits she has had prior with unremarkable chest x-ray and cardiac enzymes x2 normal however to be cautious given will admit to PCU, maintain on telemetry to further elucidate if patient having truly rhythm changes, complete cardiac enzyme serial set, obtain magnesium level, last ECHO 11/17/19 thus will request repeat with at that time noted normal LV systolic function, EF 65%, mild diffuse MV thickening with mild MV prolapse, mild to moderate MVI, mild diffuse thickening tricuspid valve, mild to moderate TVI, aortic sclerosis with no stenosis, RVSP 26 millimercury with no evidence of diastolic dysfunction, obtain TSH level, will place on therapeutic lovenox in the interim, given atypical chest pain D-dimer requested given history of recent hospitalization with new onset arrhythmia. 2. Hypokalemia: Admission K+ 3.2, magnesium level requested, supplementation given, repeat level in AM. 3. History of recent SBO: Patient reports taking laxatives intermittently per Surgery recommendation based on stool consistency needs following recent bowel obstruction with ongoing bowel movements; however will need to continue to further discuss appropriate intake of these agents and encourage usage of stool softeners and diet alterations. Potassium decreased, magnesium level pending as noted. 4. CML/CLL, history non-Hodgkin's lymphoma, history of bilateral breast cancer: Patient CBC with WBC 25.2, routinely elevated up into the 20s per review of records, plan repeat CBC in a.m., status post mastectomy with reconstructive surgery considered in remission. 5. Chronic COPD: We will hold patient home inhalers and temporarily transition to ATC DuoNeb therapies, as needed albuterol. 6. Hypertension: We will continue triamterene/hydrochlorothiazide home regimen, PRN hydralazine. 7. Hyperlipidemia: Not on regimen, FLP in AM. 8. Former Tobacco use: Encourage continued tobacco cessation. 9. GERD: We will maintain on PPI. 10. DVT prophylaxis: SCDs, Lovenox. 11. CODE status: Patient HCPMALLORY is her who is present and living will is currently in place. Discussed CODE status at length including difference between FULL code, DNR-CCA and DNR-CC status. Following discussions about the differences in these status, requested Full Code status. Advanced Care Planning Face to Face Time: 16 minutes. Charges/Coding Visit Charges OBSV E&M: 83126 Initial observation care L3 Procedures Hospitalists Procedures: 75826 Advncd Care Plan 30 Min
--- NOTE | 2020-12-14 02:24 | ED.VIS.CHEST ---
HPI History of Present Illness Chief Complaint: Chest Pain Narrative Narrative: Patient presenting for evaluation secondary to chest pain. Patient has a underlying history of COPD, CML, hypertension, hyperlipidemia and some mitral valve regurgitation. Patient states that intermittently she has been dealing with episodes where she will be woken from sleep with a sudden onset of chest pain shortness of breath and a cold sweat. States that this is not necessarily exertional, will happen intermittently and then will spontaneously resolve. She denies any past history of heart attacks. Additionally patient states that she has been dealing with relatively frequent loose stools. She was admitted to the hospital secondary to a small bowel obstruction in the summer, states that she will have frequent daily loose stools, but when she does not have a stool in a day she reports that she will take a laxative at the recommendation of general surgery. Patient denies any abdominal pain. Patient denies any underlying history of heart arrhythmias. Review of systems otherwise negative. [facility] Medical History (Updated 12/14/20 @ 02:[address] Mu Flores MD) Cervical cancer CLL (chronic lymphocytic leukemia) CML (chronic myelocytic leukemia) COPD (chronic obstructive pulmonary disease) Essential hypertension History of bilateral breast cancer Meniere disease Non-Hodgkin lymphoma Nonrheumatic mitral valve regurgitation Nonrheumatic tricuspid valve regurgitation Pneumothorax Weight loss Home Medications triamterene-hydrochlorothiazid 1 tab PO DAILY 04/19/19 [History Last Taken 09/19/20] albuterol sulfate 90 mcg/actuation aerosol inhaler 2 puff INHALATION 4X/DAY #1 inhaler 11/27/19 [Rx Last Taken 09/19/20] budesonide-formoterol HFA 160 mcg-4.5 mcg/actuation aerosol inhaler 2 puff INHALATION BID #10.2 g 12/19/19 [Rx Last Taken 09/19/20] tiotropium bromide 18 mcg capsule with inhalation device 18 mcg INHALATION DAILY #30 inh 08/13/20 [Rx Last Taken 09/19/20] multivitamin 1 tab PO DAILY 09/20/20 [History Last Taken 09/19/20] alendronate 70 mg PO QWEEK 12/13/20 [History Last Taken Unknown] benzonatate 100 mg PO TID PRN 12/13/20 [History Last Taken Unknown] Allergy/AdvReac Type Severity Reaction Status Date / Time shellfish derived Allergy Severe Anaphylaxis Verified 12/13/20 23:52 bacitracin Allergy Rash Verified 12/13/20 23:52 codeine Allergy Rash Verified 12/13/20 23:52 latex Allergy IF PT USES Verified 12/13/20 23:52 LATEX GLOVES GETS RASH WALNUTS AdvReac Swelling Uncoded 12/13/20 23:52 Family History Father Abdominal aortic aneurysm (AAA) Surgical History History of bladder surgery History of breast reconstruction History of cataract surgery History of dilatation and curettage History of lung surgery History of mastectomy Social History Smoking Status: Former smoker alcohol intake: current details: 4 glasses wine per week substance use type: does not use ROS ROS ED Constitutional Constitutional ED: Denies fever(s) Eyes Eyes: Denies change in vision ENT ENT ED: Denies rhinorrhea or sore throat Cardiovascular Cardiovascular: Reports as per HPI and chest pain Respiratory/Chest Respiratory/Chest: Reports dyspnea Gastrointestinal Gastrointestinal: Reports diarrhea Genitourinary Genitourinary ED: Denies dysuria Musculoskeletal Musculoskeletal: Denies myalgias or neck pain Integumentary Denies rash Neurologic Neurologic: Denies headache(s), paresthesias or weakness Psychiatric Psychiatric: Denies depression Endocrine Endocrinology: Denies polydipsia or polyuria Hematologic/Lymphatic Hematologic/Lymphatic: Denies easy bleeding or easy bruising Allergic/Immunologic Allergic/Immunologic ED: Denies urticaria EXAM Physical Exam Const Vital Signs: 12/13/20 23:45 12/13/20 23:48 12/14/20 00:11 Temperature 97.6 F L Temperature Source Oral Pulse Rate 76 Respiratory Rate 16 Respiratory Effort Normal Non-Labored Blood Pressure 147/76 H Blood Pressure Mean 99 Pulse Ox 97 Oxygen Delivery Method Room Air Room Air Positive well nourished and well developed Constitutional Narrative: Elderly female not acutely distressed General Appearance ED: well developed and NAD HEENT Reports moist mucous membranes normocephalic and atraumatic Eyes EOMs intact bilaterally Neck no lymphadenopathy, supple and no JVD Chest Wall inspection of chest normal and palpation of chest normal Chest Narrative: No evidence of vesicular rash Resp normal respiratory effort and clear to auscultation bilaterally Auscultation: Negative for rales, rhonchi or wheezes Cardio regular rate, S1 normal heart sound, S2 normal heart sound and no murmurs Rate: other Other Details: Heart is irregularly irregular with a controlled rate Peripheral Pulses: radial pulses present and posterior tibial pulses present GI normal to inspection, nondistended, normoactive bowel sounds, soft to palpation and non-tender Extremity normal to inspection Extremity Narrative: Calves are supple no palpable cord General Extremety ED: Negative for edema or tenderness General Extremity: Negative for edema Neuro oriented x3 and no sensory deficits noted Sensorium / Orientation: awake and alert Psych mental status grossly normal Skin no rashes or lesions noted Heart Score ECG: Nonspecific Repolarization Age: >/= 65 years Risk Factors: 1 or 2 Risk Factors Troponin: </= Normal Limit Score: 4 MDM MDM MDM Narrative Medical decision making narrative: Patient presenting for evaluation secondary to chest pain. Patient was noted to have a leukocytosis of 25,000 which trending back she does have intermittent issues with likely given her CML. She has a benign abdomen I do not believe that abdominal imaging is indicated. EKG and telemetry monitoring seems to show evidence of new onset of atrial fibrillation that is rate controlled. Patient's chemistry shows mild hypokalemia high-sensitivity troponins were found to be negative. Patient's heart score is at least a 4 she has been having paroxysmal chest pain that is been waking her up at night and has been associated with diaphoresis and shortness of breath and has a new onset of atrial fibrillation. I believe that she likely requires admission for cardiac rule out. Patient will be discussed with the hospitalist. Lab Data Labs: Laboratory Results - last 24 hr 12/13/20 12/13/20 12/14/20 23:28 23:28 01:30 WBC 25.2 H RBC 4.92 Hgb 15.1 H Hct 46.6 MCV 94.7 MCH 30.7 MCHC 32.4 RDW Std Deviation 46.7 H RDW Coeff of Anderson 13.3 Plt Count 236 MPV 11.9 Immature Gran % (Auto) 0.500 Neut % (Auto) 66.8 Lymph % (Auto) 24.1 [place] % (Auto) 7.2 Eos % (Auto) 1.0 Baso % (Auto) 0.4 Absolute Neuts (auto) 16.8 H Absolute Lymphs (auto) 6.07 H Nucleated RBC % 0 Differential Comment SCANNED Diff Path Review May foll Sodium 144 Potassium 3.2 L Chloride 102 Carbon Dioxide 35.0 H Anion Gap 7 BUN 31 H Creatinine 0.94 Estim Creat Clear Calc 35.35 Est GFR (MDRD) Af Amer 74 Est GFR (MDRD) Non-Af 61 BUN/Creatinine Ratio 33.0 H Glucose 119 H Calcium 10.1 Troponin I High Sens 5 6 Radiography Diagnostic Testing: Clinical Impression(s) from Imaging Studies Chest X-Ray 12/14/20 00:06 IMPRESSION: No acute cardiopulmonary process. Electronically Signed: Niranjan Cabrera MD at 0:55 EDT Tel , Service support , Discharge Plan Triage Chief Complaint: Chest Pain Other Complaint: Nausea/Vomiting ED Provider: Mu Flores Dx/Rx/DC Orders Clinical Impression: CLL (chronic lymphocytic leukemia), Chest pain, A-fib Prescriptions: No Action budesonide-formoterol 160-4.5 mcg/actuation HFA aerosol inhaler 2 puff inhalation BID Qty: 10.2 RF: 6 triamterene-hydrochlorothiazid 1 EACH tablet 1 tab PO DAILY RF: 0 multivitamin Tablet 1 tab PO DAILY RF: 0 alendronate 70 mg tablet 70 mg PO QWEEK RF: 0 benzonatate 100 mg Capsule 100 mg PO TID PRN (Reason: Cough) RF: 0 albuterol sulfate 90 mcg/actuation HFA aerosol inhaler 2 puff inhalation 4X/DAY Qty: 1 RF: 2 tiotropium bromide 18 mcg capsule, w/inhalation device 18 mcg inhalation DAILY Qty: 30 RF: 6 Primary Care Provider: Donnell Tse Referrals: Donnell Tse MD [Primary Care Provider] - Disposition Disposition: Acute Care Hospital [facility]
[2020-12-14 02:59] LABS: Magnesium 1.7 mg/dL (1.6-2.6)
[2020-12-14 03:13] LABS: D-Dimer Quantitative (DVT/PE) 1.74 FEU/ug/m (0.27-0.49)
--- NOTE | 2020-12-14 03:30 | ECHOD_ITS ---
Reason For Study: PAF Procedure This was a 2D Doppler, Color Flow transthoracic echocardiogram. Exam performed portable in patient room. Left Ventricle Normal LV size. Left ventricular systolic function is normal. The estimated ejection fraction is 60 %. Stage 1 diastolic dysfunction. No regional wall motion abnormalities noted. Right Ventricle Normal RV size. Normal systolic function. Atria Normal left atrium. Normal right atrium. Mitral Valve Posterior leaflet mitral valve prolapse. Mild (1+) mitral valve insufficiency. Tricuspid Valve Normal tricuspid valve. Mild to moderate (1-2+) tricuspid valve insufficiency. Pulmonary artery systolic pressure is 38 mmHg. Aortic Valve Trisinus/trileaflet aortic valve. Mild focal aortic valve calcification. Pulmonic Valve Normal pulmonic valve. Great Vessels Normal aortic root. The pulmonary artery is normal size. Normal inferior vena cava. Pericardium/Pleural No pericardial effusion. MMode/2D Measurements & Calculations LVIDd: 4.5 cm IVSd: 0.86 cm Ao root diam: 3.0 cm LVIDs: 2.6 cm LVPWd: 0.96 cm RVDd: 3.8 cm FS: 43.5 % LAV(MOD-bp): 26.2 ml LVAd ap4: 22.1 cm2 SV(MOD-sp4): 40.2 ml LAV(MOD-bp) Indexed: 18.6 ml/m2 LVLd ap4: 6.7 cm LAV(MOD-sp2): 28.3 ml EDV(MOD-sp4): 59.3 ml LAV(MOD-sp4): 23.1 ml EDV(sp4-el): 62.1 ml LVAs ap4: 10.9 cm2 LVLs ap4: 5.2 cm ESV(MOD-sp4): 19.1 ml ESV(sp4-el): 19.2 ml EF(MOD-sp4): 67.8 % EF(sp4-el): 69.0 % SV(sp4-el): 42.9 ml LA A4 area: 11.0 cm2 LA dimension(2D): 3.1 cm RA A4 area: 15.8 cm2 Doppler Measurements & Calculations MV E max king: 67.9 cm/sec Lat Peak E' King: 7.7 cm/sec Med Peak E' King: 6.6 cm/sec MV A max king: 84.1 cm/sec E/E' lat: 8.8 E/E' med: 10.3 MV E/A: 0.81 Ao V2 max: 190.7 cm/sec LV V1 max: 110.0 cm/sec PA V2 max: 97.3 cm/sec Ao max P.5 mmHg LV V1 max P.8 mmHg Ao V2 mean: 135.8 cm/sec Ao mean P.1 mmHg Ao V2 VTI: 38.7 cm TR max king: 294.2 cm/sec TR max P.6 mmHg ECHO/Echo Complete Interpretation Summary Normal LV size. Left ventricular systolic function is normal. The estimated ejection fraction is 60 %. Stage 1 diastolic dysfunction. Mild to moderate (1-2+) tricuspid valve insufficiency. Posterior leaflet mitral valve prolapse. Ordering Physician: Amina Cespedes Referring Physician: Donnell Tse Performed By: Melanie Dee, RDCS, RVT
--- NOTE | 2020-12-14 03:31 | PCS.PANDOC ---
PANDEMIC DOCUMENTATION INITIATED: Date: 10/07/2020 Time: 190
--- NOTE | 2020-12-14 03:51 | CT_ITS ---
HISTORY: suspect PE. Chest pain TECHNIQUE: Helically acquired images were obtained of the chest following 75mL Isovue-370 IV IV contrast as per pulmonary angiogram protocol with 3D reconstructions. A radiation dose optimization technique was used for this scan. COMPARISON: Chest radiograph on same day FINDINGS: # of images incl. paperwork: [id number] THYROID IMAGED PORTION: Unremarkable. PULMONARY ARTERIES: No pulmonary embolism. No gross arterial enlargement. AORTA/AORTIC ARCH: Mild atherosclerosis. No ectasia. No dissection. HEART/PERICARDIUM: No cardiomegaly. No significant pericardial fluid. Mild coronary atherosclerosis. ADENOPATHY: No suspicious mediastinal or hilar adenopathy by size criteria. LUNG PARENCHYMA: No consolidation. Moderate to severe diffuse emphysematous change. Mild bilateral posterior diaphragmatic wall eventration. ESOPHAGUS: Mild mid esophageal circumferential wall thickening. Proximal distal esophagus are decompressed, limiting evaluation. PLEURAL EFFUSION: None. PNEUMOTHORAX: None. UPPER ABDOMEN IMAGED PORTION: Left hepatic 0.9 cm cyst. MUSCULOSKELETAL: No acute osseous finding. Prior bilateral mastectomy with implants. CT/CTA Chest W/WO Contrast IMPRESSION: 1. No pulmonary embolism or evidence of acute cardiopulmonary process. 2. Mid circumferential mid esophageal wall thickening which can be seen with esophagitis in the appropriate setting. Correlate for history of gastroesophageal reflux. GI follow-up recommended for consideration of endoscopic visualization or fluoroscopic esophagram. 3. Moderate to severe diffuse emphysematous change. Individualized dose optimization techniques were used for this CT. at 0515 Reported and signed by: Milton Mcmullen MD Electronically Signed: Milton Mcmullen MD at 5:14 EDT Tel , Service support ,
[2020-12-14] MEDS: 0.9% Normal Saline 1,000 ML 100 ML IV (04:55)
[2020-12-14] MEDS: Potassium Chloride Oral Tablet 20 MEQ 40 MEQ PO (04:55)
[2020-12-14 05:45] LABS: Absolute Lymphocyte Count 3.77 X10^3/uL (0.83-4.51); Absolute Neutrophil Count 10.8 X10^3/uL (2.0-7.7); Basophil# 0.04 X10^3/uL; Basophil% 0.3 % (0-1); Eosinophil# 0.18 X10^3/uL; Eosinophils% 1.1 % (0-5); Hematocrit 39.7 % (37-47); Hemoglobin 12.8 g/dL (12.0-15.0); Lymphocyte # 3.77 X10^3/ul (0.83-4.51); Lymphocyte % 23.8 % (19-41); Mean Corp Hgb Conc 32.2 g/dL (32-36); Mean Corpuscular Hgb 30.5 pg (27.0-32.0); Mean Corpuscular Volume 94.7 fL (81-99); Mean Platelet Vol. 11.9 fl (6.2-12.0); Monocyte# 0.92 X10^3/uL; Monocyte% 5.8 % (0-10); NRBC Flagged by Analyzer 0 % (0-5); Neutrophil # 10.82 X10^3/uL (2.7-7.7); Neutrophil % 68.5 % (47-70); Platelet Count 174 K/mm3 (150-450); RBC Distribution Width CV 13.5 % (11.6-14.6); RBC Distribution Width SD 46.5 fl (35.1-43.9); Red Blood Count 4.19 M/mm3 (4.2-5.4); White Blood Count 15.8 K/mm3 (4.4-11.0)
--- NOTE | 2020-12-14 05:55 | EKG12_ITS ---
Test Reason : AM EKG Blood Pressure : / mmHG Vent. Rate : 070 BPM Atrial Rate : 070 BPM P-R Int : 126 ms QRS Dur : 086 ms QT Int : 400 ms P-R-T Axes : 068 064 061 degrees QTc Int : 432 ms Sinus rhythm with marked sinus arrhythmia Otherwise normal ECG Confirmed by SHIVA SNOW, ARMOND ([id number]), food editor JEREMIE MENDOZA ([id number]) on 12/18/2020 9:36:06 AM Referred By: CARISSA Confirmed By:ARMOND SHANNON MD
[2020-12-14 06:28] LABS: Troponin-I HS 6 pg/mL (3.0-54.0)
[2020-12-14 06:38] LABS: ALB/GLOB Ratio 1.1 RATIO (0.9-2.4); AST(SGOT) 21 U/L (15-37); Alanine Aminotransfer ALT/SGPT 23 U/L (13-56); Albumin, Serum 2.9 g/dL (3.2-5.0); Alkaline Phosphatase 76 U/L (45-117); Anion Gap 5 (5-15); BUN 34 mg/dL (7-18); BUN/Creat Ratio 43.2 RATIO (10-20); Calcium,Total 8.8 mg/dL (8.5-10.1); Chloride 102 mmol/L (98-107); Cholesterol 166 mg/dL (200); Creatinine, Serum 0.79 mg/dL (0.55-1.02); EST Glomerular Filtration Rate 75 mL/min (>60); Est Glom Filt Rate - Afr Amer 91 mL/min (>60); Estimated Creatinine Clearance 30.96 ml/min; Globulin 2.7 g/dL (2.2-4.2); Glucose 107 mg/dL (74-106); High Density Lipoprotein 78 mg/dL; Potassium 4.1 mmol/L (3.5-5.1); Protein, Total 5.6 g/dL (6.4-8.2); Sodium Level 139 mmol/L (136-145); Thyroid Stim Hormone (TSH) 0.84 uIU/mL (0.358-3.74); Triglycerides 66 mg/dL; Very Low Density Lipoprotein 13 mg/dL (5-40)
[2020-12-14] MEDS: Ipratropium/Albuterol Sulfate 3 ML AMPUL.NEB INHALATION (06:59)
[2020-12-14] MEDS: Glucerna Shake 120 ML LIQUID PO (08:06)
[2020-12-14] MEDS: Pantoprazole Sodium 40 MG Tablet PO (09:51)
[2020-12-14] MEDS: Enoxaparin 40 MG/0.4 ML Syringe SC (09:51)
[2020-12-14] MEDS: Triamterene 37.5MG/Hctz 25MG Capsule 1 CAP PO (09:51)
--- NOTE | 2020-12-14 10:40 | DS.PCM_ITS ---
Providers Date of Admission: 12/14/20 Primary Care Physician: Dr. Donnell Tse MD Reason For Visit: PAF NEW ONSET Diagnosis Discharge Diagnosis (1) Chest pain: Status: Acute Code(s): R07.9 - Chest pain, unspecified Qualifiers: Chest pain type: unspecified Qualified Code(s): R07.9 - Chest pain, unspecified Medications at Discharge Home Medications triamterene-hydrochlorothiazid 1 tab PO DAILY 04/19/19 albuterol sulfate 90 mcg/actuation aerosol inhaler 2 puff INHALATION 4X/DAY #1 inhaler 11/27/19 budesonide-formoterol HFA 160 mcg-4.5 mcg/actuation aerosol inhaler 2 puff INHALATION BID #10.2 g 12/19/19 tiotropium bromide 18 mcg capsule with inhalation device 18 mcg INHALATION DAILY #30 inh 08/13/20 multivitamin 1 tab PO DAILY 09/20/20 alendronate 70 mg PO QWEEK 12/13/20 benzonatate 100 mg PO TID PRN 12/13/20 pantoprazole 40 mg PO DAILY #30 tab 12/14/20 Hospital Course Operations None Procedures 2-D Echocardiogram Summary of Care Provided Minutes Spent on Discharge: 35 Hospital Course: Mrs. Lofton is a 80-year-old white female who presented to the emergency department at [facility] on 12/14/2020 with nausea, vomiting, chest pain. She reported to me that her pain was sharp and located under her left breast and radiated just around her her left breast. She had one episode of nausea and vomiting. The pain was sharp and stabbing in nature and lasted seconds in the emergency department she reported associated diaphoresis dyspnea nausea prior to presentation but all symptoms were resolved when she presented to the emergency department. On the day following admission her symptoms had completely resolved and she reported being back to baseline. Her work-up in the emergency department was essentially benign other than some mild hypokalemia. Her initial high-sensitivity cardiac troponin was 5 with a repeat of 6x2. There was some concern that she possibly had new onset atrial fibrillation with a controlled rate on EKG but upon my review of 3 EKGs it appears that it was sinus arrhythmia with a normal CA interval as there were P waves present throughout the entire EKG. A D-dimer was slightly elevated at greater than 1 and therefore a CTA of her chest was performed and showed no pulmonary embolism or acute cardiopulmonary process, mid circumferential esophageal wall thickening, and moderate to severe diffuse emphysematous changes in the bilateral lungs. Given the mid esophageal thickening she was started on Protonix and recommend follow-up with Dr. Barfield from gastroenterology as an outpatient for possible EGD. She is on alendronate at baseline and does complain of intermittent GERD symptoms at times. An echocardiogram was performed and showed normal LV function with an EF of 60% and stage I diastolic dysfunction, mild to moderate tricuspid valve insufficiency and posterior leaflet mitral valve prolapse. These valvular abnormalities are chronic and stable for her. Her ejection fraction is stable compared to recent echocardiograms. Given her symptom resolved, normal troponins, and normal echocardiogram we discussed the potential of performing a stress test but the patient would like to forego that at this time given the fact that she is feeling well and the rest of her cardiac work-up has been negative. She indicates that she does exercise on a daily basis at her assisted living and feels like this is helping her overall. It was noted that she had some perioral erythema. She admitted that she ate a peanut butter fudge that a fellow resident had brought to her unknowingly that had walnuts in it and she had an allergic reaction as she is allergic to walnuts at baseline. She states that this is much improved and feels that all her symptoms may be attributed this as well. She was discharged home in stable condition. She was instructed to follow-up with her PCP in 2 to 4 weeks, Dr. Barfield in 2 weeks, and Dr. Roper as scheduled on a yearly basis as long as she remained asymptomatic. As noted above she was also given a prescription for Protonix until she can be evaluated by GI. Discharge diagnoses: Atypical chest pain-resolved Nausea and vomiting-resolved Leukocytosis Esophageal wall thickening GERD Tricuspid valve insufficiency Mitral valve prolapse COPD/emphysema Osteoporosis Hypertension CLL CML History of bilateral breast cancer M?ni?re's disease Weight loss Physical Exam Const alert, oriented x3 and no apparent distress Constitutional Narrative: Thin elderly white female sitting up in bed watching television, appears comfortable, nontoxic General Appearance: cooperative, comfortable, well kempt, well developed and frail Orientation / Consciousness: awake Exam Limitations: no limitations Nutritional Appearance: thin HEENT normocephalic, head/scalp atraumatic, hearing grossly normal bilaterally and moist oral mucous membranes HEENT Narrative: Perioral erythema from recent allergic reaction to walnuts-no open sores or wounds Eyes PERRL, EOMs intact bilaterally and conjunctivae normal Neck no lymphadenopathy, supple, no JVD and no carotid bruits Neck Narrative: Trachea midline, no thyroid enlargement Resp normal respiratory effort, no retractions, no use of accessory muscles and clear to auscultation bilaterally Auscultation: Negative for crackles, rales, rhonchi or wheezes Cardio regular rate, regular rhythm, S1 normal heart sound, S2 normal heart sound, no murmurs, no rub, no gallops, no clicks and no JVD Cardio Narrative: Scattered ectopic beats GI normal to inspection, nondistended, normoactive bowel sounds, soft to palpation, non-tender and non-distended Extremity normal to inspection, full ROM and no clubbing, cyanosis or edema Skin no rashes or lesions noted, no wounds, skin turgor normal and no jaundice Skin Narrative: Perioral abnormalities as noted above Neuro oriented x3, CN's II-XII intact bilaterally, moves all extremities, no focal motor deficits and no sensory deficits noted Neuro Narrative: Generalized weakness Sensorium / Orientation: awake and alert Speech: speech normal Psych affect normal Psych Narrative: Very pleasant Weight / BMI Weight Weight: 42.3 kg Body Mass Index (BMI) 17.6 ABG / Lab / Microbiology Data Result Diagrams: 12/14/20 05:20 12/14/20 05:20 Laboratory: Laboratory Results - last 24 hr 12/13/20 23:28: WBC 25.2 H, RBC 4.92, Hgb 15.1 H, Hct 46.6, MCV 94.7, MCH 30.7, MCHC 32.4, RDW Std Deviation 46.7 H, RDW Coeff of Anderson 13.3, Plt Count 236, MPV 11.9, Immature Gran % (Auto) 0.500, Neut % (Auto) 66.8, Lymph % (Auto) 24.1, [place] % (Auto) 7.2, Eos % (Auto) 1.0, Baso % (Auto) 0.4, Absolute Neuts (auto) 16.8 H, Absolute Lymphs (auto) 6.07 H, Nucleated RBC % 0, Differential Comment SCANNED, Diff Path Review June12/13/20 23:28: Sodium 144, Potassium 3.2 L, Chloride 102, Carbon Dioxide 35.0 H , Anion Gap 7, BUN 31 H, Creatinine 0.94, Estim Creat Clear Calc 35.35, Est GFR (MDRD) Af Amer 74, Est GFR (MDRD) Non-Af 61, BUN/Creatinine Ratio 33.0 H, Glucose 119 H, Calcium 10.1, Troponin I High Sens 5 12/13/20 23:28: Magnesium 1.7 12/14/20 01:30: Troponin I High Sens 6 12/14/20 02:45: D-Dimer Quant (PE/DVT) 1.74 H* 12/14/20 05:20: WBC 15.8 H, RBC 4.19 L, Hgb 12.8, Hct 39.7, MCV 94.7, MCH 30.5, MCHC 32.2, RDW Std Deviation 46.5 H, RDW Coeff of Anderson 13.5, Plt Count 174, MPV 11.9, Immature Gran % (Auto) 0.500, Neut % (Auto) 68.5, Lymph % (Auto) 23.8, [place] % (Auto) 5.8, Eos % (Auto) 1.1, Baso % (Auto) 0.3, Absolute Neuts (auto) 10.8 H, Absolute Lymphs (auto) 3.77, Nucleated RBC % 0 12/14/20 05:20: Sodium 139, Potassium 4.1, Chloride 102, Carbon Dioxide 32.0, Anion Gap 5, BUN 34 H, Creatinine 0.79, Estim Creat Clear Calc 30.96, Est GFR (MDRD) Af Amer 91, Est GFR (MDRD) Non-Af 75, BUN/Creatinine Ratio 43.2 H, Glucose 107 H, Calcium 8.8, Total Bilirubin 0.50, AST 21, ALT 23, Alkaline Phosphatase 76, Total Protein 5.6 L, Albumin 2.9 L, Globulin 2.7, Albumin/Globulin Ratio 1.1, Triglycerides 66, Cholesterol 166, LDL Cholesterol 75, VLDL Cholesterol 13, HDL Cholesterol 78, TSH 0.84 12/14/20 05:20: Troponin I High Sens 6 Microbiology: Microbiology 12/14/20 00:10 Nasal Secretion SARS-CoV-2 Antigen (Rapid) - Final Radiography Diagnostic Testing: Radiology Impression Chest X-Ray 12/14/20 00:06 IMPRESSION: No acute cardiopulmonary process. Electronically Signed: Niranjan Cabrera MD at 0:55 EDT Tel , Service support , Echocardiogram 12/14/20 03:30 Interpretation Summary Normal LV size. Left ventricular systolic function is normal. The estimated ejection fraction is 60 %. Stage 1 diastolic dysfunction. Mild to moderate (1-2+) tricuspid valve insufficiency. Posterior leaflet mitral valve prolapse. Ordering Physician: Amina Cespedes Referring Physician: Donnell Tse Performed By: Melanie Dee RDCS, RVT Chest CTA 12/14/20 03:51 IMPRESSION: 1. No pulmonary embolism or evidence of acute cardiopulmonary process. 2. Mid circumferential mid esophageal wall thickening which can be seen with esophagitis in the appropriate setting. Correlate for history of gastroesophageal reflux. GI follow-up recommended for consideration of endoscopic visualization or fluoroscopic esophagram. 3. Moderate to severe diffuse emphysematous change. Individualized dose optimization techniques were used for this CT. at 0515 Reported and signed by: Milton Mcmullen MD Electronically Signed: Milton Mcmullen MD at 5:14 EDT Tel , Service support , D/C Instructions Discharge Diet: Low fat / Low cholesterol Discharge Activity: Return to Normal Activity Meaningful Use Info Meaningful Use Diagnoses (Choose all that apply): None applicable Discharge Plan Admission Admit Date/Time: 12/14/20 02:34 Primary Reason for Your Visit: Chest pain Attending Provider: Carmen Duvall Primary Care Provider: Donnell Tse Discharge Orders/Prescriptions Prescriptions: New pantoprazole 40 mg Tablet,Delayed Release (Dr/Ec) 40 mg PO DAILY Qty: 30 RF: 0 Continued budesonide-formoterol 160-4.5 mcg/actuation HFA aerosol inhaler 2 puff inhalation BID Qty: 10.2 RF: 6 triamterene-hydrochlorothiazid 1 EACH tablet 1 tab PO DAILY RF: 0 multivitamin Tablet 1 tab PO DAILY RF: 0 alendronate 70 mg tablet 70 mg PO QWEEK RF: 0 benzonatate 100 mg Capsule 100 mg PO TID PRN (Reason: Cough) RF: 0 albuterol sulfate 90 mcg/actuation HFA aerosol inhaler 2 puff inhalation 4X/DAY Qty: 1 RF: 2 tiotropium bromide 18 mcg capsule, w/inhalation device 18 mcg inhalation DAILY Qty: 30 RF: 6 Referrals / Follow Up: Ronak Roper MD [STAFF PHYSICIAN] - See Referral Note (as scheduled) FriendFederico DO [STAFF PHYSICIAN] - Within 2 Weeks (esophageal thickening in CTA of chest/GERD) Donnell Tse MD [Primary Care Provider] - Within 1 Month Disposition Disposition (needs filled in before D/C Order can be placed): Home, Self Care Charges/Coding Visit Charges Inpatient E&M: 34369 Disch Hosp
--- NOTE | 2020-12-14 10:59 | PCM.DC ---
Discharge Instructions Diet Discharge Diet: Low fat / Low cholesterol Activity Discharge Activity: Return to Normal Activity Follow Up Care Test Results: Test results from this visit will be discussed in further detail at your follow-up appointment, if applicable. Discharge Plan Admission Admit Date/Time: 12/14/20 02:34 Primary Reason for Your Visit: Chest pain Attending Provider: Carmen Duvall Primary Care Provider: Donnell Tse Discharge Orders/Prescriptions Prescriptions: New pantoprazole 40 mg Tablet,Delayed Release (Dr/Ec) 40 mg PO DAILY Qty: 30 RF: 0 Continued budesonide-formoterol 160-4.5 mcg/actuation HFA aerosol inhaler 2 puff inhalation BID Qty: 10.2 RF: 6 triamterene-hydrochlorothiazid 1 EACH tablet 1 tab PO DAILY RF: 0 multivitamin Tablet 1 tab PO DAILY RF: 0 alendronate 70 mg tablet 70 mg PO QWEEK RF: 0 benzonatate 100 mg Capsule 100 mg PO TID PRN (Reason: Cough) RF: 0 albuterol sulfate 90 mcg/actuation HFA aerosol inhaler 2 puff inhalation 4X/DAY Qty: 1 RF: 2 tiotropium bromide 18 mcg capsule, w/inhalation device 18 mcg inhalation DAILY Qty: 30 RF: 6 Referrals / Follow Up: Ronak Roper MD [STAFF PHYSICIAN] - See Referral Note (as scheduled) Federico Barfield DO [STAFF PHYSICIAN] - Within 2 Weeks (esophageal thickening in CTA of chest/GERD) Donnell Tse MD [Primary Care Provider] - Within 1 Month Disposition Disposition (needs filled in before D/C Order can be placed): Home, Self Care
[2020-12-16 13:32] LABS: Pathologist Review Reviewed
== END 2020-12-14 10:46 | disposition home or self-care (01) ==
LOC: ED 12-14 02:32 → PCU 12-14 02:58
PROVIDERS: Admitting Provider Family Medicine; Emergency Provider Emergency Medicine; PCP Family Medicine; Visit Provider Internal Medicine
DX: I48.0 Paroxysmal atrial fibrillation (principal); C92.10 Chronic myeloid leukemia, BCR/ABL-positive, not having achieved remission; C91.10 Chronic lymphocytic leukemia of B-cell type not having achieved remission; J44.9 Chronic obstructive pulmonary disease, unspecified; I10 Essential (primary) hypertension; E78.5 Hyperlipidemia, unspecified; K21.9 Gastro-esophageal reflux disease without esophagitis; C85.90 Non-Hodgkin lymphoma, unspecified, unspecified site; Z85.3 Personal history of malignant neoplasm of breast; Z79.899 Other long term (current) drug therapy; Z79.51 Long term (current) use of inhaled steroids; Z87.891 Personal history of nicotine dependence; E87.6 Hypokalemia
CPT/HCPCS: 36415; 71045; 71275; 80048; 80053; 80061; 83735; 84443; 84484; 85025; 85379; 87426; 93005; 93306; 94640; 96360; 96361; 96372; 99218; 99285; J7030; Q9967; A4216; G0378

== ENCOUNTER 2021-02-11 12:37 | Day surgery (SDC) | payer MEDICARE, OTHER, SELFPAY ==
[2021-02-11] VITALS (7 sets, daily range): BP systolic 107–139; BP diastolic 70–88; PULSE 53–81; RESP 16; TEMP 35.9–36.9; O2SAT 97–100
--- NOTE | 2021-02-11 | EGD_PTH ---
PATIENT: EM PENALOZA LOC: EN U#:[id number] AGE/SX: 80/F ROOM: RE02/11/[address]: Dr. Federico Barfield DO : 1940 BED: DIS: 02/11/2021 SPEC #: [id number] RECD: 02/11/21 16:48 STATUS: ROSY REShyanne #: [id number] NIDHI: 02/11/21 00:[address]: Federico Barfield DEPT: SURGICAL PATHOLOGY RECD BY: Michael Bowen ENTERED: 02/12/21 08:43 SP TYPE: EGD BIOPSY SARITHA DR: Dr. Donnell Tse MD Tissues: A - Duodenum, NOS B - Gastric mucous membrane C - Esophageal mucous membrane Procedures: Surgery Specimen Level IV HEADER OPERATION: [place] PRE-[place] DIAGNOSIS: Abdominal pain, constipation TISSUE SUBMITTED: A ? Duodenum biopsy, B ? Antrum biopsy for H. pylori and path, C ? Esophageal biopsy MICROSCOPIC DIAGNOSIS A. Duodenum, biopsy: No pathologic change. B. Gastric antrum, biopsy: Chronic gastritis. See comment. C. Esophagus, biopsy: Fragments of gastric mucosa with chronic inflammation. AM:sean 02/13/2021 COMMENT B. The results of immunohistochemistry for Helicobacter pylori will be reported separately ([id number]). MICROSCOPIC DESCRIPTION Slides are reviewed. GROSS DESCRIPTION A - Received in fixative is one container labeled with the patient's name and designated duodenum. The specimen consists of multiple irregular fragments of light rdz soft tissue that in aggregate measure 0.7 x 0.2 x 0.1 cm. The specimen is totally submitted in one cassette. B - Received in fixative is one container labeled with the patient's name and designated gastric antrum. The specimen consists of two irregular fragments of light rdz soft tissue that in aggregate measure 0.5 x 0.5 x 0.1 cm. The specimen is totally submitted in one cassette. C - Received in fixative is one container labeled with the patient's name and designated esophagus biopsy. The specimen consists of multiple irregular fragments of light rdz soft tissue that in aggregate measure 0.6 x 0.5 x 0.1 cm. The specimen is totally submitted in one cassette. / AM:sean 02/12/21 TC:3 CPT: 86055 x3
[2021-02-11] MEDS: Lactated Ringers 1,000 ML 15 ML IV (13:05)
--- NOTE | 2021-02-11 14:00 | IMM_PTH ---
PATIENT: EM PENALOZA LOC: EN U#:[id number] AGE/SX: 80/F ROOM: RE02/11/[address]: Dr. Federico Barfield DO : 1940 BED: DIS: 02/11/2021 SPEC #: [id number] RECD: 02/12/21 10:13 STATUS: ROSY REQ #: [id number] NIDHI: 02/11/21 14:[address]: Federico Barfield DEPT: IMMUNOHISTOCHEMISTRY RECD BY: Yuliana Garrison ENTERED: 02/12/21 10:14 SP TYPE: IMMUNO OTHR DR: Dr. Donnell Tse MD Tissues: B - Stomach, NOS Procedures: H Pylori (initial) PHYSICIAN & INSTITUTION [place] [address] SPECIMEN INFORMATION: Tissue Source: B ? Antrum biopsy Clinical Info: Abdominal pain, constipation Specimen Number: [id number] CPT code: 28035 METHODOLOGY: Deparaffinized sections of prefer/formalin-fixed tissue or PAP/DQ stained slides are incubated with monoclonal/polyclonal antibodies/oligonucleotide probes. Localization is made via biotin free immunoperoxidase method. Appropriate controls are performed and reacted as expected. Results on target cell population are indicated in the following table: RESULTS: ANTIBODY / CLONE RESULT Block B H Pylori (polyclonal) negative These tests were developed and their performance characteristics determined by [facility]. They may not have been cleared or approved by the U.S. Food and Drug Administration. The FDA has determined that such clearance or approval is not necessary. INTERPRETATION: B. Antrum biopsy: Negative for Helicobacter pylori organisms. AM:sean 02/13/2021
--- NOTE | 2021-02-11 14:39 | PCM.HP.BLA ---
History and Physical Date of Admission: 02/11/21 80 F who presents to the office today for the evaluation of abdominal pain and chronic constipation. She has been struggling with constipation for multiple years. She gets nauseous when she eats too much. She has not been evaluated for gastroparesis. She does take an aspirin on a daily basis. She has no family history of any GI issues. She has not had any abdominal surgeries. Her symptoms are lower abdominal cramps typically occurring on the left side with nausea and vomiting. She is typically constipated and takes TUMs to help with bowel movement every two days. Has attempted OTC laxative that caused her to have urgent diarrhea. History of bowel obstruction twice in the last couple of months. Does not take in roughage because it makes her constipation worse. ROS ENT ENT: Positive for ear discharge, hearing loss, tinnitus, nasal congestion and hoarseness Resp Respiratory: Positive for wheezing Cardio Cardiology: Positive for shortness of breath and dyspnea on exertion Gastro GI: Positive for abdominal pain, change in bowel habits, constipation and heartburn Musc Musculoskeletal: Positive for restless legs and leg pain at night Skin Skin: Positive for dry skin and itchy eyes Neuro Neurology: Positive for restless legs Endo Endocrine: Positive for cold intolerance Aller/Imm Allergy/Immunologic: Positive for itchy eyes and wheezing Laron/Lymp Hematologic/Lymphatic: Positive for easy bruising Exam Const General: cooperative and comfortable Nutritional Appearance: average body habitus and well nourished [facility] Head: normal to inspection Ears: hearing grossly normal bilaterally Nose: external nose normal Face and sinus: normal facial exam Mouth: oral mucosae normal Throat: posterior oropharynx normal Eyes General: appearance normal, both eyes and all related structures Neck Neck: normal visual inspection Chest Chest palpation & inspection: normal inspection of the chest and normal palpation of entire chest wall Resp Effort & Inspection: normal respiratory effort Auscultation: Bilateral: Clear to Auscultation Cardio Palpation: normal PMI Rate: regular rate Rhythm: regular rhythm GI Inspection: normal to inspection Auscultation: normal bowel sounds Percussion: normal to percussion Palpation: no hepatosplenomegaly Skin General: no rashes or lesions noted Neuro General: patient alert Extrem General: normal to inspection Psych Affect: normal affect Quality Reporting Tobacco Screening ([facility]) Smoking Status: Former smoker Assessment and Plan Assessment and Plan (1) Abdominal pain: Status: Acute Plan - Dr. Caballero Friend, DO: We will evaluate her upper GI tract to see if she has any abnormalities that will require the usage of Tums to make it feel better. Her abdominal pain could be secondary to chronic constipation however in the setting of the elderly who do not present commonly with GI disease, she should undergo repeat evaluation of her upper GI tract and possibly occult her colon. (2) Constipation: Status: Acute Plan - Dr. Caballero Friend, DO: I believe by her history she has chronic idiopathic constipation although it could also be a pelvic floor dysfunction. We may have to repeat imaging so we can see specifically with the barium enema I have re-examined the patient. There are no clinical changes since date of exam.
--- NOTE | 2021-02-11 15:07 | OP.CCLET_ITS ---
10/29/2021 Donnell Tse Re : Upper GI endoscopy procedure for Madison Lofton Dear Carmencita This procedure was performed on Thursday, February 11, 2021. My impressions and recommendations are as follows: Impressions : - LA Grade A reflux esophagitis. Biopsied. - Medium-sized hiatal hernia. - Non-bleeding gastric ulcer with no stigmata of bleeding. Biopsied. - Duodenitis. Biopsied. Recommendations : - Discharge patient to home. - Resume previous diet. - Continue present medications. - Await pathology results. - Repeat upper endoscopy in 1 year for surveillance based on pathology results. - Return to GI office in 1 week. My findings are described in the full procedure note, which is enclosed. If I can be of further assistance, please feel free to contact me at . Sincerely, Federico Barfield, 02/11/2021 3:07:07 PM This report has been signed electronically.
--- NOTE | 2021-02-11 15:07 | OP.EGD_ITS ---
Patient Name: Madison Lofton Procedure Date: 02/11/2021 2:35 PM Date of : 1940 Age: 80 Procedure: Upper GI endoscopy Indications: Epigastric abdominal pain, Heartburn Providers: Federico Barfield DO Medicines: See the Anesthesia note for documentation of the administered medications Patient Profile: This is a 80 year old female. Refer to note in patient chart for documentation of history and physical. Patient has symptoms of acute abdominal cramping and acute epigastric abdominal pain. Complications: No immediate complications. Procedure: Pre-Anesthesia Assessment: - Prior to the procedure, a History and Physical was performed, and patient medications and allergies were reviewed. The risks and benefits of the procedure and the sedation options and risks were discussed with the patient. All questions were answered and informed consent was obtained. Patient identification and proposed procedure were verified by the physician in the pre-procedure area. Mental Status Examination: alert and oriented. Airway Examination: normal oropharyngeal airway and neck mobility. Respiratory Examination: clear to auscultation. CV Examination: normal. Prophylactic Antibiotics: The patient does not require prophylactic antibiotics. Prior Anticoagulants: The patient has taken no previous anticoagulant or antiplatelet agents. ASA Grade Assessment: II - A patient with mild systemic disease. After reviewing the risks and benefits, the patient was deemed in satisfactory condition to undergo the procedure. The anesthesia plan was to use moderate sedation / analgesia (conscious sedation). Immediately prior to administration of medications, the patient was re-assessed for adequacy to receive sedatives. The heart rate, respiratory rate, oxygen saturations, blood pressure, adequacy of pulmonary ventilation, and response to care were monitored throughout the procedure. The physical status of the patient was re-assessed after the procedure. After obtaining informed consent, the endoscope was passed under direct vision. Throughout the procedure, the patient's blood pressure, pulse, and oxygen saturations were monitored continuously. The colonoscope was introduced through the mouth, and advanced to the second part of duodenum. The upper GI endoscopy was accomplished without difficulty. The patient tolerated the procedure well. Moderate Sedation: Moderate (conscious) sedation was administered by the endoscopy nurse and supervised by the endoscopist. The following parameters were monitored: oxygen saturation, heart rate, blood pressure, and response to care. Total physician intraservice time was 15 minutes. Scope In: 2:51:15 PM Scope Out: 2:58:16 PM Total Procedure Duration Time 0 hours 7 minutes 1 second Findings: LA Grade A (one or more mucosal breaks less than 5 mm, not extending between tops of 2 mucosal folds) esophagitis with no bleeding was found 34 to 35 cm from the incisors. Biopsies were taken with a cold forceps for histology. Verification of patient identification for the specimen was done. Estimated blood loss was minimal. A medium-sized hiatal hernia was present. One non-bleeding linear gastric ulcer with no stigmata of bleeding was found in the gastric antrum. The lesion was 3 mm in largest dimension. This was biopsied with a cold forceps for histology. Verification of patient identification for the specimen was done. Estimated blood loss was minimal. Localized mild inflammation characterized by congestion (edema) was found in the duodenal bulb. Biopsies were taken with a cold forceps for histology. Verification of patient identification for the specimen was done. Estimated blood loss was minimal. Impression: - LA Grade A reflux esophagitis. Biopsied. - Medium-sized hiatal hernia. - Non-bleeding gastric ulcer with no stigmata of bleeding. Biopsied. - Duodenitis. Biopsied. Recommendation: - Discharge patient to home. - Resume previous diet. - Continue present medications. - Await pathology results. - Repeat upper endoscopy in 1 year for surveillance based on pathology results. - Return to GI office in 1 week. Procedure Code(s): --- Professional --- 41206, Esophagogastroduodenoscopy, flexible, transoral; with biopsy, single or multiple 24285, 59, Moderate sedation services provided by the same physician or other qualified health wound care rn performing the diagnostic or therapeutic service that the sedation supports, requiring the presence of an independent trained observer to assist in the monitoring of the patient's level of consciousness and physiological status; initial 15 minutes of intraservice time, patient age 5 years or older CPT copyright 2017 [employer]. All rights reserved. The codes documented in this report are preliminary and upon maintenance mechanic review may be revised to meet current compliance requirements. Federico Barfield DO 02/11/2021 3:07:07 PM This report has been signed electronically. Number of Addenda: 1 Note Initiated On: 02/11/2021 2:35 PM Addendum Number: 1 Addendum Date: 10/29/2021 7:20:58 AM MAC was used instead of moderate sedation for the patient. Federico Barfield DO 10/29/2021 7:21:05 AM This report has been signed electronically.
== END 2021-02-11 16:06 | disposition home or self-care (01) ==
LOC: EN 12:39 → AC 12:40
PROVIDERS: PCP Family Medicine; Referring Provider Family Medicine; Visit Provider Internal Medicine Gastroenterology
PROC: 0DJ08ZZ Inspection of Upper Intestinal Tract, Via Natural or Artificial Opening Endoscopic (ICD-10-PCS; CPT 43235; principal; 2021-02-11 13:55)
DX: K29.50 Unspecified chronic gastritis without bleeding (principal); K21.00 Gastro-esophageal reflux disease with esophagitis, without bleeding; K29.80 Duodenitis without bleeding; K44.9 Diaphragmatic hernia without obstruction or gangrene; K25.9 Gastric ulcer, unspecified as acute or chronic, without hemorrhage or perforation; K59.00 Constipation, unspecified; I34.0 Nonrheumatic mitral (valve) insufficiency; I10 Essential (primary) hypertension; I36.1 Nonrheumatic tricuspid (valve) insufficiency; K21.9 Gastro-esophageal reflux disease without esophagitis; J44.9 Chronic obstructive pulmonary disease, unspecified; M19.90 Unspecified osteoarthritis, unspecified site; Z85.6 Personal history of leukemia; Z85.3 Personal history of malignant neoplasm of breast; Z85.41 Personal history of malignant neoplasm of cervix uteri; Z85.72 Personal history of non-Hodgkin lymphomas; Z79.899 Other long term (current) drug therapy; Z87.891 Personal history of nicotine dependence
CPT/HCPCS: 43239; 88305; 88342; J7120; J2405

== ENCOUNTER 2021-09-12 11:40 | Emergency (ER) | payer MEDICARE, OTHER, SELFPAY ==
[2021-09-12 11:42] VITALS: BP 147/85; PULSE 71; RESP 16; TEMP 36.3; O2SAT 97; BMI 18.3
--- NOTE | 2021-09-12 11:56 | CT_ITS ---
EXAM: CT LUMBAR SPINE WITHOUT INTRAVENOUS CONTRAST CLINICAL INDICATION: back pain TECHNIQUE: Helically acquired images were obtained of the lumbar spine without intravenous contrast. 2D reformats were reviewed. This CT exam was performed using one or more of the following dose reduction techniques: automated exposure control, adjustment of the mA and/or kV according to patient size, and/or use of iterative reconstruction technique. This report was created using [employer] report generation technology. COMPARISON: None. FINDINGS: VERTEBRAE: Multilevel disc space, vertebral body hypertrophy and facet arthropathy. Mild anterior listhesis of L4 on L5 and L5 on S1 related to the degenerative change. DISCS/SPINAL CANAL/NEURAL FORAMINA: Moderate to marked spinal stenosis noted at L4-5 and [id number] spinal stenosis at L5-S1 related to the listhesis, disc protrusion and bony hypertrophy. Prominent neural foraminal narrowing noted at L3-4, L4-5 and L5-S1. VASCULATURE: Visualized abdominal aorta is not dilated. LYMPH NODES: Unremarkable. No retroperitoneal adenopathy. CT/Spine Lumbar without Contrast IMPRESSION: Significant spinal stenosis at L4-5 related to disc degeneration and facet arthropathy. Similar but less prominent changes at L5-S1. Multilevel neural foraminal narrowing. Electronically Signed: Kvng Manuel MD at 13:19 EDT ,
--- NOTE | 2021-09-12 11:57 | EDS_ITS ---
HPI <NEFTALI Caputo - Last Filed: 09/12/21 13:34> History of Present Illness Chief Complaint: Back Narrative Narrative: 81-year-old female with history of COPD, CML, hypertension presents to the emergency department with 2 weeks of worsening lower back pain. Patient denies any injury. Patient has seen her PCP for this, he has done an x-ray which showed degenerative disc disease, as well as exercise Tylenol, 2 rounds of steroids. Patient states the pain is in her lower back and radiates down both thighs. She denies any fevers or chills peer denies any bowel or bladder incontinence. Denies any falls, recent injury. She is here today because the Tylenol is no longer helping. PFS <NEFTALI Caputo - Last Filed: 09/12/21 13:34> FOR[facility]LY [facility] Medical History Abdominal pain Arthritis Back pain Cardiology follow-up encounter Cervical cancer CLL (chronic lymphocytic leukemia) CML (chronic myelocytic leukemia) Constipation Constipation COPD (chronic obstructive pulmonary disease) Easy bruising Essential hypertension Former smoker Gastric reflux Gastritis History of bilateral breast cancer History of echocardiogram History of edema History of stress test Hoarseness Hx of small bowel obstruction Hypertension Leg cramps Meniere disease Nonrheumatic mitral valve regurgitation Nonrheumatic tricuspid valve regurgitation On home oxygen therapy Pneumothorax Thrush Weight loss Home Medications triamterene 37.5 mg-hydrochlorothiazide 25 mg tablet 1 tab PO DAILY bp 04/19/19 [History Last Taken 09/19/20] multivitamin 1 tab PO DAILY vitamin 09/20/20 [History Last Taken 02/11/21] alendronate 70 mg tablet 70 mg PO QWEEK 12/13/20 [History Last Taken Unknown] benzonatate 100 mg capsule 100 mg PO TID PRN Cough 12/13/20 [History Last Taken Unknown] famotidine 20 mg tablet 20 mg PO BID #60 tabs 02/11/21 [Rx Last Taken Unknown] Ventolin HFA 90 mcg/actuation aerosol inhaler (albuterol sulfate) 2 puff inhalation Q4H PRN shortness of breath or wheezing #3 device 07/03/21 [Rx Last Taken Unknown] budesonide-formoterol HFA 160 mcg-4.5 mcg/actuation aerosol inhaler (Symbicort) 2 puff inhalation BID copd #3 device 07/03/21 [Rx Last Taken Unknown] tiotropium bromide 18 mcg capsule with inhalation device 18 mcg inhalation DAILY copd #3 ea 07/03/21 [Rx Last Taken Unknown] acetaminophen 500 mg capsule 1,000 mg PO Q6H PRN acute pain #10 caps 08/08/21 [Rx Last Taken Unknown] prednisone 10 mg tablet 10 mg PO DIRECTED #30 tabs 08/08/21 [Rx Last Taken Unknown] hydrocodone-acetaminophen 5-325mg 5mg-325mg 1 tab PO Q6H PRN pain 3 days #10 tabs 09/12/21 [Rx Last Taken Unknown] ondansetron 4 mg disintegrating tablet 4 mg PO Q8H PRN nausea and vomiting #10 tabs 09/12/21 [Rx Last Taken Unknown] Allergy/AdvReac Type Severity Reaction Status Date / Time shellfish derived Allergy Severe Anaphylaxis Verified 09/12/21 11:41 bacitracin Allergy Rash Verified 09/12/21 11:41 codeine Allergy Rash Verified 09/12/21 11:41 latex Allergy IF PT USES Verified 09/12/21 11:41 LATEX GLOVES GETS RASH WALNUTS AdvReac Swelling Uncoded 09/12/21 11:41 Family History Father Abdominal aortic aneurysm (AAA) Mother Alzheimers disease Surgical History History of bladder surgery History of breast reconstruction History of cataract surgery History of dilatation and curettage History of esophagogastroduodenoscopy (EGD) History of lung surgery History of mastectomy Hx of bilateral cataract extraction Hx of bilateral oophorectomy Hx of colonoscopy Hx of lymph node excision Social History household members: spouse number of children: 2 current occupational status: retired Smoking Status: Former smoker how long ago did patient quit smokin ppd since 20s, quiting ~ 15 years prior to current presentation. alcohol intake: current details: 4 glasses wine per week substance use type: does not use ROS <NEFTALI Caputo - Last Filed: 09/12/21 13:34> ROS ED ROS Narrative Constitutional: Negative for fever, chills, weight loss, weakness Eyes: Negative for vision loss, vision change, double vision ENT: Negative for any sore throat, ear pain, congestion Cardiovascular: Negative for any chest pain, tightness, palpitations Respiratory: Negative for any cough, sputum production, hemoptysis, dyspnea, dyspnea on exertion, orthopnea Gastrointestinal: Negative for any abdominal pain, nausea, vomiting, diarrhea, constipation, blood in stool, blood in vomit : Negative for any urinary frequency, dysuria, retention, blood in urine Muscle skeletal: Negative for any muscle joint pain, stiffness, myalgias, arthralgias, neck pain. Positive for mid to lower back pain Neurological: Negative for any headache, syncope, numbness or tingling, dizziness Skin: Negative for any rashes, lumps, itching, abrasions, lacerations Psychiatric: Negative for any depression, anxiety, stress, suicidal ideation, homicidal ideation Hematologic: Negative for any easy bruising, excessive bruising, easy bleeding Allergies: Negative for any eczema, hives, rash EXAM <NEFTALI Caputo - Last Filed: 09/12/21 13:34> Physical Exam Narrative Exam Narrative: Vital signs reviewed. HEET: Head normocephalic atraumatic, TMs clear bilaterally. Posterior pharynx is clear, moist mucous membranes. Nares clear bilaterally. Neck: Supple with no lymphadenopathy or tenderness. No signs of meningismus, negative jolt sign. Cardiac: Regular rate and rhythm no murmurs gallops or rubs, equal peripheral pulses bilaterally. Respiratory: Lungs clear to auscultation bilaterally. No chest tenderness. Abdomen: Soft, nontender, nondistended. No abdominal bruit or pulsatile masses. No hepatosplenomegaly Extremities: No peripheral edema, no signs of gross trauma or deformity. Active full range of motion of all extremities. Patient able to dorsiflex, plantarflex against resistance. No neurological focal deficits. Neuro: Cranial nerves II through XII intact, no focal neurological deficits. Skin: Clean dry and intact with no rash, purpura, petechiae, vesicles or pustules. Backs/flank: No CVA tenderness, no deformity. Patient does have pain to palpation more to the right lower lumbar spine however patient does have pain throughout spinal exam. Psych: Normal mood and affect. No SI, HI or acute psychosis. Const Vital Signs: 09/12/21 11:42 Temperature 97.4 F L Temperature Source Temporal Pulse Rate 71 Respiratory Rate 16 Blood Pressure 147/85 H Blood Pressure Mean 105 Pulse Ox 97 Oxygen Delivery Method Room Air <Dr. Dimitris Michelle DO - Last Filed: 09/13/21 09:19> Physical Exam Const Vital Signs: 09/12/21 11:42 Temperature 97.4 F L Temperature Source Temporal Pulse Rate 71 Respiratory Rate 16 Blood Pressure 147/85 H Blood Pressure Mean 105 Pulse Ox 97 Oxygen Delivery Method Room Air MDM <Ronak TonyNEFTALI terrazas - Last Filed: 09/12/21 13:34> MDM Radiography Diagnostic Testing: Clinical Impression(s) from Imaging Studies Lumbar Spine CT 09/12/21 11:56 IMPRESSION: Significant spinal stenosis at L4-5 related to disc degeneration and facet arthropathy. Similar but less prominent changes at L5-S1. Multilevel neural foraminal narrowing. Electronically Signed: Kvng Manuel MD at 13:19 EDT , Treatment and Re-Evaluation Narrative: Patient arrives in mild distress secondary to back pain. Patient presents to the emergency department 2 weeks of uncontrolled back pain that rates down the right leg. Patient's physical examination is consistent with muscle skeletal back pain, physical examination yields no red flag signs, no signs of cauda equina, spinal abscess. Patient did receive an x-ray however today I did perform a lumbar CT spine. This showed significant spinal stenosis at L4-L5, related to the disc degeneration and facet arthropathy. Similar but less prominent changes at L5-S1. Multilevel neural foraminal narrowing. Patient did receive IM morphine, by mouth Zofran. On reassessment, the patient felt much better, she still has slight pain in her right leg however the pain is tolerable. Patient be sent home on [place], Zofran, she will follow-up with Dr. Triana who is pain management. She is given strict return precaution to return for any worsening lower extremity weakness, fever or chills. <Dr. Dimitris Michelle DO - Last Filed: 09/13/21 09:19> MDM MDM Narrative Medical decision making narrative: Attending note: Patient seen and evaluated with bioinformatics assistant. I perform my own [id number] evaluation. I agree with the plan of work-up. Increasing low back pain for the past 10 years denies trauma. Down both legs. No weakness. Outpatient x-rays with arthritis. Currently taking Tylenol. Being referred to pain management. No loss of bowel or bladder control. Exam tender palpation midline lumbar no step-offs. Straight leg test negative minimal patellar reflex bilaterally. Pulses are intact distally. Patient treated for pain with morphine lumbar CT notes spinal stenosis L4-L5 with multilevel narrowing. Patient able to ambulate. Prescription for pain control. Follow-up with pain management. Radiography Diagnostic Testing: Clinical Impression(s) from Imaging Studies Lumbar Spine CT 09/12/21 11:56 IMPRESSION: Significant spinal stenosis at L4-5 related to disc degeneration and facet arthropathy. Similar but less prominent changes at L5-S1. Multilevel neural foraminal narrowing. Electronically Signed: Kvng Manuel MD at 13:19 EDT , Discharge Plan Triage Chief Complaint: Back ED Midlevel Provider: Ronak Lopez ED Provider: Dimitris Michelle Dx/Rx/DC Orders Clinical Impression: Lumbar back pain, Radicular pain of lower extremity Instructions: Back Basics: A Healthy Spine, ED Back Pain (Acute or Chronic) Prescriptions: New hydrocodone-acetaminophen 5-325 mg tablet 1 tab PO Q6H PRN (Reason: pain) 3 Days Qty: 10 0RF ondansetron 4 mg tablet,disintegrating 4 mg PO Q8H PRN (Reason: nausea and vomiting) Qty: 10 0RF No Action budesonide-formoterol [Symbicort] 160-4.5 mcg/actuation HFA aerosol inhaler 2 puff inhalation BID Qty: 3 3RF tiotropium bromide 18 mcg capsule, w/inhalation device 18 mcg inhalation DAILY Qty: 3 3RF albuterol sulfate [Ventolin HFA] 90 mcg/actuation HFA aerosol inhaler 2 puff inhalation Q4H PRN (Reason: shortness of breath or wheezing) Qty: 3 3RF prednisone 10 mg tablet 10 mg PO DIRECTED Qty: 30 0RF Rx Instructions: 40mg daily for 3 days, then 30mg daily for 3 days, then 20mg daily for 3 days, then 10mg daily for 3 days. acetaminophen 500 mg capsule 1,000 mg PO Q6H PRN (Reason: acute pain) Qty: 10 0RF triamterene-hydrochlorothiazid 1 EACH tablet 1 tab PO DAILY multivitamin Tablet 1 tab PO DAILY alendronate 70 mg tablet 70 mg PO QWEEK benzonatate 100 mg Capsule 100 mg PO TID PRN (Reason: Cough) famotidine 20 mg tablet 20 mg PO BID Qty: 60 2RF Primary Care Provider: Donnell Tse Referrals: Donnell Tse MD [Primary Care Provider] - Activity Restrictions/Additional Instructions: Make sure you follow-up with Dr. Triana. Use pain medicine as needed. Print Language: Mosotho Disposition Disposition: Home, Self Care Discharge Date/Time: 09/12/21 13:42
[2021-09-12] MEDS: Morphine 4 MG/ML Syringe IM (12:07)
[2021-09-12] MEDS: Ondansetron ODT 4 MG Tablet PO (12:08)
== END 2021-09-12 13:42 | disposition home or self-care (01) ==
PROVIDERS: Emergency Provider Emergency Medicine; PCP Family Medicine; Visit Provider Emergency Medicine
DX: M54.50 Low back pain, unspecified (principal); C92.10 Chronic myeloid leukemia, BCR/ABL-positive, not having achieved remission; J44.9 Chronic obstructive pulmonary disease, unspecified; I10 Essential (primary) hypertension; Z87.891 Personal history of nicotine dependence; M54.10 Radiculopathy, site unspecified; K21.9 Gastro-esophageal reflux disease without esophagitis; Z85.3 Personal history of malignant neoplasm of breast; Z87.19 Personal history of other diseases of the digestive system; I34.0 Nonrheumatic mitral (valve) insufficiency; Z99.81 Dependence on supplemental oxygen; Z85.41 Personal history of malignant neoplasm of cervix uteri; Z79.899 Other long term (current) drug therapy
CPT/HCPCS: 72131; 96372; 99282

== ENCOUNTER 2021-09-14 00:10 | Observation (INO) | payer MEDICARE, OTHER, SELFPAY ==
[2021-09-14] VITALS (11 sets, daily range): BP systolic 97–161; BP diastolic 66–95; PULSE 59–80; RESP 17–20; TEMP 36.2–37.3; O2SAT 91–100; BMI 17.9; BMI 18.5
[2021-09-14] MEDS: Morphine 4 MG/ML Syringe IM (00:42)
[2021-09-14] MEDS: Metoclopramide 5 MG TABLET PO (00:56)
--- NOTE | 2021-09-14 01:20 | EX.ED.DYSGE1 ---
HPI History of Present Illness Chief Complaint: Nausea/Vomiting Informant: patient and spouse/S.O. Narrative Narrative: Patient present secondary to back pain and nausea. Patient was seen here in the ER on the secondary to back pain. Back pain had been ongoing for the past 2 weeks. She been seen by her primary care physician and on [address] scan of the lumbar spine reveals degenerative changes with some spinal stenosis. Patient was discharged on [place] and Zofran. Patient apparently has had some nausea with the pain medication and did not realize she was supposed to take the Zofran first. Tonight she presents secondary to pain and nausea. [facility] Medical History Abdominal pain Arthritis Back pain Cardiology follow-up encounter Cervical cancer CLL (chronic lymphocytic leukemia) CML (chronic myelocytic leukemia) Constipation Constipation COPD (chronic obstructive pulmonary disease) Easy bruising Essential hypertension Former smoker Gastric reflux Gastritis History of bilateral breast cancer History of echocardiogram History of edema History of stress test Hoarseness Hx of small bowel obstruction Hypertension Leg cramps Meniere disease Nonrheumatic mitral valve regurgitation Nonrheumatic tricuspid valve regurgitation On home oxygen therapy Pneumothorax Thrush Weight loss Home Medications triamterene 37.5 mg-hydrochlorothiazide 25 mg tablet 1 tab PO DAILY bp 04/19/19 [History Last Taken 09/19/20] multivitamin 1 tab PO DAILY vitamin 09/20/20 [History Last Taken 02/11/21] alendronate 70 mg tablet 70 mg PO QWEEK 12/13/20 [History Last Taken Unknown] benzonatate 100 mg capsule 100 mg PO TID PRN Cough 12/13/20 [History Last Taken Unknown] Ventolin HFA 90 mcg/actuation aerosol inhaler (albuterol sulfate) 2 puff inhalation Q4H PRN shortness of breath or wheezing #3 device 07/03/21 [Rx Last Taken Unknown] budesonide-formoterol HFA 160 mcg-4.5 mcg/actuation aerosol inhaler (Symbicort) 2 puff inhalation BID copd #3 device 07/03/21 [Rx Last Taken Unknown] tiotropium bromide 18 mcg capsule with inhalation device 18 mcg inhalation DAILY copd #3 ea 07/03/21 [Rx Last Taken Unknown] acetaminophen 500 mg capsule 1,000 mg PO Q6H PRN acute pain #10 caps 08/08/21 [Rx Last Taken Unknown] hydrocodone-acetaminophen 5-325mg 5mg-325mg 1 tab PO Q6H PRN pain 3 days #10 tabs 09/12/21 [Rx Last Taken Unknown] ondansetron 4 mg disintegrating tablet 4 mg PO Q8H PRN nausea and vomiting #10 tabs 09/12/21 [Rx Last Taken Unknown] Allergy/AdvReac Type Severity Reaction Status Date / Time shellfish derived Allergy Severe Anaphylaxis Verified 09/12/21 11:41 bacitracin Allergy Rash Verified 09/12/21 11:41 codeine Allergy Rash Verified 09/12/21 11:41 latex Allergy IF PT USES Verified 09/12/21 11:41 LATEX GLOVES GETS RASH WALNUTS AdvReac Swelling Uncoded 09/12/21 11:41 Family History Father Abdominal aortic aneurysm (AAA) Mother Alzheimers disease Surgical History History of bladder surgery History of breast reconstruction History of cataract surgery History of dilatation and curettage History of esophagogastroduodenoscopy (EGD) History of lung surgery History of mastectomy Hx of bilateral cataract extraction Hx of bilateral oophorectomy Hx of colonoscopy Hx of lymph node excision Social History household members: spouse number of children: 2 current occupational status: retired Smoking Status: Former smoker how long ago did patient quit smokin ppd since 20s, quiting ~ 15 years prior to current presentation. alcohol intake: current details: 4 glasses wine per week substance use type: does not use ROS ROS ED Constitutional Constitutional ED: Denies chills or fever(s) Eyes Eyes: Denies change in vision or discharge from eye(s) ENT ENT ED: Denies discharge from eye(s), rhinorrhea or sore throat Cardiovascular Cardiovascular: Denies chest pain or palpitations Respiratory/Chest Respiratory/Chest: Denies cough or dyspnea Gastrointestinal Gastrointestinal: Reports nausea; Denies abdominal pain, diarrhea or vomiting Genitourinary Genitourinary ED: Denies difficulty urinating or dysuria Musculoskeletal Musculoskeletal: Reports back pain and extremity pain Integumentary Denies Abrasions or rash Neurologic Neurologic: Denies headache(s) or weakness Psychiatric Psychiatric: Denies anxiety or depression Allergic/Immunologic Allergic/Immunologic ED: Denies lip swelling or urticaria EXAM Physical Exam Const Vital Signs: 09/14/21 00:11 09/14/21 00:14 Temperature 97.2 F L 97.2 F L Temperature Source Temporal Temporal Pulse Rate 59 L 59 L Respiratory Rate 18 18 Blood Pressure 160/91 H 160/91 H Blood Pressure Mean 114 114 Positive well nourished and well developed General Appearance ED: well developed HEENT Reports normocephalic and head/scalp atraumatic Eyes PERRL and EOMs intact bilaterally Neck supple Chest Wall inspection of chest normal and palpation of chest normal Resp normal respiratory effort and clear to auscultation bilaterally Cardio regular rate and regular rhythm GI non-tender Auscultation: hypoactive bowel sounds Palpation: soft Back/Spine Back/Spine Narrative: Reproducible tenderness over the right sciatic notch. No midline tenderness over the thoracic or lumbar spine. Extremity normal to inspection Neuro oriented x3 and no sensory deficits noted Sensorium / Orientation: alert Motor Exam: strength 5/5 throughout Psych Mood & Affect: anxious Skin no rashes or lesions noted MDM MDM MDM Narrative Medical decision making narrative: Patient's work-up and treatment from the is reviewed. She is given a dose of IM morphine here along with a p.o. dose of Reglan. She had taken Zofran 1/2-hour prior to arrival. She had taken p.o. [place] 1 hour prior to arrival. Lab Data Labs: Laboratory Results - last 24 hr 09/14/21 09/14/21 03:16 03:16 WBC 10.5 RBC 4.08 L Hgb 12.6 Hct 38.5 MCV 94.4 MCH 30.9 MCHC 32.7 RDW Std Deviation 52.6 H RDW Coeff of [place] 15.3 H Plt Count 195 MPV 10.7 Immature Gran % (Auto) 1.000 H Neut % (Auto) 69.6 Lymph % (Auto) 24.3 [place] % (Auto) 3.6 Eos % (Auto) 1.0 Baso % (Auto) 0.5 Absolute Neuts (auto) 7.3 Absolute Lymphs (auto) 2.54 Nucleated RBC % 0 Sodium 139 Potassium 3.8 Chloride 103 Carbon Dioxide 31.0 Anion Gap 5 BUN 30 H Creatinine 0.60 Estim Creat Clear Calc 31.03 Est GFR (MDRD) Af Amer 123 Est GFR (MDRD) Non-Af 102 BUN/Creatinine Ratio 49.8 H Glucose 126 H Calcium 9.1 Treatment and Re-Evaluation Narrative: Patient reported no improvement in her pain after IM morphine. IV line is an established and patient given 4 mg of IV morphine along with 4 mg of IV Zofran. She is also given solu-medrol and a Lidoderm patch. On repeat evaluation she was resting more comfortably. She is on 3 L nasal cannula. As we are working on getting her O2 turned down patient had recurrent pain over the right sciatic notch. This time she was not able to sit up on the side of the bed. She has had 2 doses of narcotics and at this time will require admission for intractable pain. Lab work and urinalysis will be obtained. Patient just had a CT scan of her L-spine obtained 2 days ago. Addendum: Prior to transfer to the floor patient was complaining of some slight chest tightness and felt she might have indigestion. EKG is obtained and reveals sinus rhythm at 65 bpm with no acute ischemia. She is given a dose of IV Protonix. Discharge Plan Dx/Rx/DC Orders Clinical Impression: Sciatica, Intractable back pain, Nausea Disposition Disposition: Acute Care [facility]
[2021-09-14] MEDS: MethylPREDNISolone 125 MG/2 ML Vial 80 MG IV (01:39)
[2021-09-14] MEDS: Morphine 4 MG/ML Syringe IV (01:39)
[2021-09-14] MEDS: Ondansetron 4 MG/2 ML Vial IV (01:39)
[2021-09-14] MEDS: Lidocaine 5% Patch 1 PATCH TOPICAL ×2 (01:40→08:14)
[2021-09-14 03:23] LABS: Absolute Lymphocyte Count 2.54 X10^3/uL (0.83-4.51); Absolute Neutrophil Count 7.3 X10^3/uL (2.0-7.7); Basophil# 0.05 X10^3/uL; Basophil% 0.5 % (0-1); Hematocrit 38.5 % (37-47); Hemoglobin 12.6 g/dL (12.0-15.0); Lymphocyte # 2.54 X10^3/ul (0.83-4.51); Lymphocyte % 24.3 % (19-41); Mean Corp Hgb Conc 32.7 g/dL (32-36); Mean Corpuscular Hgb 30.9 pg (27.0-32.0); Mean Corpuscular Volume 94.4 fL (81-99); Mean Platelet Vol. 10.7 fl (6.2-12.0); Monocyte# 0.38 X10^3/uL; Monocyte% 3.6 % (0-10); NRBC Flagged by Analyzer 0 % (0-5); Neutrophil # 7.29 X10^3/uL (2.7-7.7); Neutrophil % 69.6 % (47-70); Platelet Count 195 K/mm3 (150-450); RBC Distribution Width CV 15.3 % (11.6-14.6); RBC Distribution Width SD 52.6 fl (35.1-43.9); Red Blood Count 4.08 M/mm3 (4.2-5.4); White Blood Count 10.5 K/mm3 (4.4-11.0)
[2021-09-14 03:38] LABS: Anion Gap 5 (5-15); BUN 30 mg/dL (7-18); BUN/Creat Ratio 49.8 RATIO (10-20); Calcium,Total 9.1 mg/dL (8.5-10.1); Chloride 103 mmol/L (98-107); EST Glomerular Filtration Rate 102 mL/min (>60); Est Glom Filt Rate - Afr Amer 123 mL/min (>60); Estimated Creatinine Clearance 31.03 ml/min; Glucose 126 mg/dL (74-106); Potassium 3.8 mmol/L (3.5-5.1); Sodium Level 139 mmol/L (136-145)
--- NOTE | 2021-09-14 03:47 | HP.PCM.HOS_ITS ---
[facility] - General General Date of Admission: 09/14/21 Date of Service: 09/14/21 Chief Complaint: Lower back pain. HPI Narrative EM PENALOZA, is a 81 F with a significant history of COPD on home nighttime oxygen who presents emergency department with 2-week history of persistent lower back pain that radiates to her bilateral legs. She described the pain as sharp. Her pain improves after she has walked for some time. Her pain worsens when she lies down for a long time. Associated with symptoms is headaches; nausea;vomiting and vertigo. Also complaining of chest pain at emergency department. FORMERLY [facility] Medical History Abdominal pain Arthritis Back pain Cardiology follow-up encounter Cervical cancer CLL (chronic lymphocytic leukemia) CML (chronic myelocytic leukemia) Constipation Constipation COPD (chronic obstructive pulmonary disease) Easy bruising Essential hypertension Former smoker Gastric reflux Gastritis History of bilateral breast cancer History of echocardiogram History of edema History of stress test Hoarseness Hx of small bowel obstruction Hypertension Leg cramps Meniere disease Nonrheumatic mitral valve regurgitation Nonrheumatic tricuspid valve regurgitation On home oxygen therapy Pneumothorax Thrush Weight loss Home Medications triamterene 37.5 mg-hydrochlorothiazide 25 mg tablet 1 tab PO DAILY bp 04/19/19 [History Last Taken 09/19/20] multivitamin 1 tab PO DAILY vitamin 09/20/20 [History Last Taken 02/11/21] alendronate 70 mg tablet 70 mg PO QWEEK 12/13/20 [History Last Taken Unknown] benzonatate 100 mg capsule 100 mg PO TID PRN Cough 12/13/20 [History Last Taken Unknown] Ventolin HFA 90 mcg/actuation aerosol inhaler (albuterol sulfate) 2 puff inhalation Q4H PRN shortness of breath or wheezing #3 device 07/03/21 [Rx Last Taken Unknown] budesonide-formoterol HFA 160 mcg-4.5 mcg/actuation aerosol inhaler (Symbicort) 2 puff inhalation BID copd #3 device 07/03/21 [Rx Last Taken Unknown] tiotropium bromide 18 mcg capsule with inhalation device 18 mcg inhalation DAILY copd #3 ea 07/03/21 [Rx Last Taken Unknown] acetaminophen 500 mg capsule 1,000 mg PO Q6H PRN acute pain #10 caps 08/08/21 [Rx Last Taken Unknown] hydrocodone-acetaminophen 5-325mg 5mg-325mg 1 tab PO Q6H PRN pain 3 days #10 tabs 09/12/21 [Rx Last Taken Unknown] ondansetron 4 mg disintegrating tablet 4 mg PO Q8H PRN nausea and vomiting #10 tabs 09/12/21 [Rx Last Taken Unknown] Allergy/AdvReac Type Severity Reaction Status Date / Time shellfish derived Allergy Severe Anaphylaxis Verified 09/12/21 11:41 bacitracin Allergy Rash Verified 09/12/21 11:41 codeine Allergy Rash Verified 09/12/21 11:41 latex Allergy IF PT USES Verified 09/12/21 11:41 LATEX GLOVES GETS RASH WALNUTS AdvReac Swelling Uncoded 09/12/21 11:41 Family History Father Abdominal aortic aneurysm (AAA) Mother Alzheimers disease Surgical History History of bladder surgery History of breast reconstruction History of cataract surgery History of dilatation and curettage History of esophagogastroduodenoscopy (EGD) History of lung surgery History of mastectomy Hx of bilateral cataract extraction Hx of bilateral oophorectomy Hx of colonoscopy Hx of lymph node excision Social History household members: spouse number of children: 2 current occupational status: retired Smoking Status: Former smoker how long ago did patient quit smokin ppd since 20s, quiting ~ 15 years prior to current presentation. alcohol intake: current details: 4 glasses wine per week substance use type: does not use ROS ROS Narrative Pertinent positives and pertinent negatives as noted in HPI. All other systems were reviewed and are negative. Vital Signs Vital Signs Vital Signs: 09/14/21 00:11 09/14/21 00:14 Temperature 97.2 F L 97.2 F L Temperature Source Temporal Temporal Pulse Rate 59 L 59 L Respiratory Rate 18 18 Blood Pressure 160/91 H 160/91 H Blood Pressure Mean 114 114 Weight Weight: 43.091 kg Body Mass Index (BMI) 17.9 Physical Exam Narrative Physical exam: General: Well-nourished, well-developed. Head: Normocephalic, atraumatic, no tenderness Eyes: Vision is grossly intact. EOMI ENT, no trauma, moist mucous membranes, no rhinorrhea Neck: Nontender, full range of motion CVS: Regular rate and rhythm. S1-S2 present. No murmur, gallop or rub. Respiratory : clear to auscultation bilaterally, chest wall nontender, no wheezing Abdomen: Soft, nontender, nondistended, normal bowel sounds, no masses : Deferred Back: Nontender, no CVA tenderness, no midline spinal tenderness, deformities, step-offs Extremities: Positive straight leg leg raise test on bilateral lower extremities right worse than left. Skin: Normal color, no trauma, abrasions Neuro: Alert, oriented, cranial nerves II through XII grossly intact. Psychiatry: Normal mood. Normal affect. Not depressed. Not anxious. Results Medical Records Data Attestation: I reviewed the patient's medical records Lab / Micro Data Attestation: I reviewed the patient's lab results. Result Diagrams: 09/14/21 03:16 09/14/21 03:16 Labs: Laboratory Results - last 24 hr 09/14/21 03:16: WBC 10.5, RBC 4.08 L, Hgb 12.6, Hct 38.5, MCV 94.4, MCH 30.9, MCHC 32.7, RDW Std Deviation 52.6 H, RDW Coeff of [place] 15.3 H, Plt Count 195, MPV 10.7, Immature Gran % (Auto) 1.000 H, Neut % (Auto) 69.6, Lymph % (Auto) 24.3, [place] % (Auto) 3.6, Eos % (Auto) 1.0, Baso % (Auto) 0.5, Absolute Neuts (auto) 7.3, Absolute Lymphs (auto) 2.54, Nucleated RBC % 0 09/14/21 03:16: Sodium 139, Potassium 3.8, Chloride 103, Carbon Dioxide 31.0, Anion Gap 5, BUN 30 H, Creatinine 0.60, Estim Creat Clear Calc 31.03, Est GFR (MDRD) Af Amer 123, Est GFR (MDRD) Non-Af 102, BUN/Creatinine Ratio 49.8 H, Glucose 126 H, Calcium 9.1 Assessment & Plan Assessment/Plan (1) Lumbar back pain: (2) Radicular pain of lower extremity: PLAN: Plan Intractable lower back pain with sciatica Started on Lidoderm patch at the emergency department and continued. Home Sharon continued. Decadron continued. PT and OT work with patient for strengthening balance training. Chest pain EKG showed sinus rhythm with no abnormalities. Sharon as needed for pain. Hypertension Blood pressure is not within goal Home blood pressure continued. Pain control. PRN Hydralazine ordered. Trend blood pressure and adjust blood pressure medications. DVT Prophylaxis: SCD ordered Charges/Coding Visit Charges OBSV E&M: 78575 Initial observation care L3
--- NOTE | 2021-09-14 04:41 | EKG12_ITS ---
Test Reason : cp Blood Pressure : / mmHG Vent. Rate : 065 BPM Atrial Rate : 065 BPM P-R Int : 118 ms QRS Dur : 086 ms QT Int : 388 ms P-R-T Axes : 070 065 066 degrees QTc Int : 403 ms Normal sinus rhythm Nonspecific ST abnormality Abnormal ECG Confirmed by BETTIE SNOW, QUETA ([id number]), film editor supervisor JEREMIE MENDOZA ([id number]) on 09/16/2021 9:07:33 AM Referred By: Aroldo Confirmed By:QUETA ALEXANDRE MD
[2021-09-14 05:02] LABS: Mucous, Urine 0 SEEN /hpf (<or=2+)
[2021-09-14 05:19] LABS: Color, Urine Yellow (Yellow); Glucose, Dipstick Normal (Normal); Ketone-Dipstick Negative (Negative); Leukocyte Esterase-Dipstick 25 /ul (Negative); Nitrite-Dipstick Positive (Negative); Occult Blood-Urine 25 /ul (Negative); Protein-Dipstick Negative (Negative); Specific Gravity, Urine 1.025 (1.002-1.030); Urine Bilirubin Dipstick Negative (Negative); Urine Clarity Sl. Cloudy (Clear); Urine Urobilinogen Normal (Normal)
[2021-09-14 05:41] LABS: Bacteria 4+ /hpf (None Seen); Red Blood Cells-Urine 0-5 SEEN /hpf (0-5); Squamous Epithelial Cells - UA 0-5 SEEN /hpf (5-10); White Blood Cells 0-5 SEEN /hpf (0-5)
[2021-09-14] MEDS: 0.9% Saline Lock 10 ML Syringe IV ×2 (06:07→09:54)
[2021-09-14] MEDS: Multivitamins,Therapeutic Tablet 1 TABLET PO (08:15)
[2021-09-14] MEDS: dexAMETHasone 4 MG Tablet PO ×3 (08:15→16:06)
--- NOTE | 2021-09-14 09:01 | PN.HOSP_ITS ---
Subjective Subjective Patient seen and examined. She still complains of intractable back pain. She denies any fever, chills, nausea, cough or diarrhea. Review of systems is otherwise negative. She did feel a bit dizzy whilst having orthostatics checked, but this has resolved. Objective Data Objective Data Vital Signs: Vital Signs Temp Pulse Resp BP Pulse Ox O2 Del Method O2 Flow Rate 98.1 F 64 18 130/68 H 95 Room Air 3 09/14/21 05:48 09/14/21 07:48 09/14/21 08:21 09/14/21 07:48 09/14/21 08:21 09/14/21 08:21 09/14/21 06:34 Oxygen Flow Rate (L/min) 3 Oxygen Delivery Method Room Air Weight: 97 lb 14.164 oz Body Mass Index (BMI) 18.5 Intake & Output: Intake and Output for Last 24 Hours 09/12/21 09/13/21 09/14/21 23:59 23:59 23:59 Intake Total 110 / 110 Balance 110 / 110 Lab / Micro Data Result Diagrams: 09/14/21 03:16 09/14/21 03:16 Labs: Laboratory Results - last 24 hr 09/14/21 03:16: WBC 10.5, RBC 4.08 L, Hgb 12.6, Hct 38.5, MCV 94.4, MCH 30.9, MCHC 32.7, RDW Std Deviation 52.6 H, RDW Coeff of [place] 15.3 H, Plt Count 195, MPV 10.7, Immature Gran % (Auto) 1.000 H, Neut % (Auto) 69.6, Lymph % (Auto) 24.3, [place] % (Auto) 3.6, Eos % (Auto) 1.0, Baso % (Auto) 0.5, Absolute Neuts (auto) 7.3, Absolute Lymphs (auto) 2.54, Nucleated RBC % 0 09/14/21 03:16: Sodium 139, Potassium 3.8, Chloride 103, Carbon Dioxide 31.0, Anion Gap 5, BUN 30 H, Creatinine 0.60, Estim Creat Clear Calc 31.03, Est GFR (MDRD) Af Amer 123, Est GFR (MDRD) Non-Af 102, BUN/Creatinine Ratio 49.8 H, Glucose 126 H, Calcium 9.1 09/14/21 04:58: Urine Color Yellow, Urine Clarity Sl. Cloudy, Urine pH 6.0, Ur Specific [place] 1.025, Urine Protein Negative, Urine Glucose (UA) Normal, Urine Ketones Negative, Urine Occult Blood 25 H, Urine Nitrite Positive H, Urine Bilirubin Negative, Urine Urobilinogen Normal, Ur Leukocyte Esterase 25 H, Urine RBC 0-5 SEEN, Urine WBC 0-5 SEEN, Ur Squamous Epith Cells 0-5 SEEN, Urine Bacteria 4+, Urine Mucus 0 SEEN Physical Exam Const alert, oriented x3 and no apparent distress HEENT head/scalp atraumatic and oropharynx normal Mouth: dry mucous membranes Neck no lymphadenopathy and supple Resp normal respiratory effort, no retractions, no use of accessory muscles and clear to auscultation bilaterally Cardio regular rate, regular rhythm, S1 normal heart sound, S2 normal heart sound and no murmurs GI normal to inspection, nondistended, normoactive bowel sounds, soft to palpation, non-tender and non-distended Extremity normal to inspection, full ROM and no clubbing, cyanosis or edema Neuro oriented x3, CN's II-XII intact bilaterally, moves all extremities and no focal motor deficits Sensorium / Orientation: awake and alert Motor Exam: strength 5/5 throughout Psych affect normal Assessment & Plan Assessment/Plan (1) Lumbar back pain: (2) Radicular pain of lower extremity: (3) Sciatica: (4) Intractable back pain: PLAN: Plan #Intractable lower back pain due to sciatica with radiculopathy * continue current pain meds * PT/;OT on board * fall precautions * on [place] and dexamethasone * lidoderm patch in place * #Chronic respiratory failure due to COPD: on 2l of oxygen. Breathing treatment with bronchodilators. #Hypertension: on Triamterene/HCTZ #History of bilateral breast cancer: stable. DVT prophylaxis; SCDs Charges/Coding Visit Charges Inpatient E&M: 68742 Subs Hosp L2
[2021-09-14] MEDS: Triamterene 37.5MG/Hctz 25MG Capsule 1 CAP PO (09:54)
[2021-09-14] MEDS: 0.9% Normal Saline 1,000 ML 150 ML IV ×2 (09:54→16:08)
[2021-09-14] MEDS: HYDROcodone Bitartrate/Apap 5/325 Tablet PO ×3 (10:02→22:39)
[2021-09-14] MEDS: Acetaminophen 500 MG Tablet 1000 MG PO ×2 (12:33→19:37)
[2021-09-14] MEDS: Ipratropium/Albuterol Sulfate 3 ML AMPUL.NEB INHALATION ×2 (13:12→19:55)
[2021-09-15 04:00] VITALS: BP 152/83; PULSE 73; RESP 18; TEMP 36.7; O2SAT 98
[2021-09-15 04:48] LABS: Absolute Lymphocyte Count 4.51 X10^3/uL (0.83-4.51); Absolute Neutrophil Count 9.1 X10^3/uL (2.0-7.7); Basophil# 0.01 X10^3/uL; Basophil% 0.1 % (0-1); Hematocrit 40.4 % (37-47); Hemoglobin 13.3 g/dL (12.0-15.0); Lymphocyte # 4.51 X10^3/ul (0.83-4.51); Lymphocyte % 31.6 % (19-41); Mean Corp Hgb Conc 32.9 g/dL (32-36); Mean Corpuscular Hgb 30.9 pg (27.0-32.0); Mean Corpuscular Volume 93.7 fL (81-99); Mean Platelet Vol. 10.8 fl (6.2-12.0); Monocyte# 0.51 X10^3/uL; Monocyte% 3.6 % (0-10); NRBC Flagged by Analyzer 0 % (0-5); Neutrophil # 9.11 X10^3/uL (2.7-7.7); Neutrophil % 63.9 % (47-70); Platelet Count 243 K/mm3 (150-450); RBC Distribution Width CV 15.3 % (11.6-14.6); RBC Distribution Width SD 52.7 fl (35.1-43.9); Red Blood Count 4.31 M/mm3 (4.2-5.4); White Blood Count 14.3 K/mm3 (4.4-11.0)
[2021-09-15] MEDS: HYDROcodone Bitartrate/Apap 5/325 Tablet PO (04:48)
[2021-09-15 05:08] LABS: Anion Gap 4 (5-15); BUN 25 mg/dL (7-18); BUN/Creat Ratio 39.5 RATIO (10-20); Calcium,Total 9.4 mg/dL (8.5-10.1); Chloride 104 mmol/L (98-107); Creatinine, Serum 0.63 mg/dL (0.55-1.02); EST Glomerular Filtration Rate 96 mL/min (>60); Est Glom Filt Rate - Afr Amer 117 mL/min (>60); Estimated Creatinine Clearance 31.97 ml/min; Glucose 118 mg/dL (74-106); Potassium 4.1 mmol/L (3.5-5.1); Sodium Level 138 mmol/L (136-145)
[2021-09-15 06:40] VITALS: PULSE 80; RESP 18; O2SAT 98
[2021-09-15] MEDS: Ipratropium/Albuterol Sulfate 3 ML AMPUL.NEB INHALATION ×2 (06:40→13:12)
[2021-09-15 07:51] VITALS: BP 132/71; PULSE 70; RESP 18; TEMP 36.7; O2SAT 99
[2021-09-15] MEDS: dexAMETHasone 4 MG Tablet PO ×3 (08:01→17:10)
[2021-09-15] MEDS: Multivitamins,Therapeutic Tablet 1 TABLET PO (08:01)
[2021-09-15] MEDS: Triamterene 37.5MG/Hctz 25MG Capsule 1 CAP PO (09:44)
[2021-09-15] MEDS: Lidocaine 5% Patch 1 PATCH TOPICAL (09:44)
--- NOTE | 2021-09-15 10:17 | CASEMGMT ---
Addendum entered by Lucy Little 09/15/21 14:25: SHANTELL REYNAGA into pt room, pt at bedside. Pt is aware of her appt time on Wednesday. Pt is aware of ordered oxygen. She does have portable oxygen tanks as well as a pox at home. She denies further needs. Addendum entered by Lucy Little 09/15/21 11:44: Received return call from Citlali at [facility] therapy, she states pt has an appt on Wednesday at noon. Original Note: SHANTELL REYNAGA in to discuss [employer] form with patient. SHANTELL REYNAGA explained [employer] form, patient voiced understanding. Pt signed form and filed in chart. Pt provided with a copy of signed [employer] form. Patient states she lives in the [place] at [facility] with her . She nor her drive and the use volunteers from [facility] for transportation. She states she has an outpt therapy appt at [facility] set up for this Wednesday. Pt has a rollator at home and feels she can return home. Pt states she uses oxygen at home prn during the day and always at night but is unsure of the liter flow. Pt uses [employer], will call to verify rx. TC cherie Pierson at [facility] she confirms that pt does live in [place], they do have pull cords but it is recommended that the pt call 911 first before using. She states they do have a therapy gym next to the [facility] of [place] and it is considered outpt therapy. TC to therapy gym, left message on to verify pt appt time. Requested returned call. Patient had no further questions or concerns at this time.
--- NOTE | 2021-09-15 11:25 | DS.PCM_ITS ---
Providers Date of Admission: 09/14/21 Primary Care Physician: Dr. Donnell Tse MD Reason For Visit: INTRACTABLE BACK PAIN Diagnosis Discharge Diagnosis (1) Lumbar back pain: Status: Acute Code(s): M54.50 - Low back pain, unspecified (2) Radicular pain of lower extremity: Status: Acute Code(s): M54.10 - Radiculopathy, site unspecified (3) Sciatica: Status: Acute Code(s): M54.30 - Sciatica, unspecified side (4) Intractable back pain: Status: Acute Code(s): M54.9 - Dorsalgia, unspecified Plan #Intractable lower back pain due to sciatica with radiculopathy * continue current pain meds * PT/;OT on board * fall precautions * on [place] and dexamethasone * lidoderm patch in place * #Chronic respiratory failure due to COPD: on 2l of oxygen. Breathing treatment with bronchodilators. #Hypertension: on Triamterene/HCTZ #History of bilateral breast cancer: stable. DVT prophylaxis; SCDs Medications at Discharge Home Medications triamterene 37.5 mg-hydrochlorothiazide 25 mg tablet 1 tab PO DAILY bp 04/19/19 multivitamin 1 tab PO DAILY vitamin 09/20/20 alendronate 70 mg tablet 70 mg PO QWEEK 12/13/20 benzonatate 100 mg capsule 100 mg PO TID PRN Cough 12/13/20 Ventolin HFA 90 mcg/actuation aerosol inhaler (albuterol sulfate) 2 puff inhalation Q4H PRN shortness of breath or wheezing #3 device 07/03/21 budesonide-formoterol HFA 160 mcg-4.5 mcg/actuation aerosol inhaler (Symbicort) 2 puff inhalation BID copd #3 device 07/03/21 tiotropium bromide 18 mcg capsule with inhalation device 18 mcg inhalation DAILY copd #3 ea 07/03/21 ondansetron 4 mg disintegrating tablet 4 mg PO Q8H PRN nausea and vomiting #10 tabs 09/12/21 hydrocodone-acetaminophen 5-325mg 5mg-325mg 1 tab PO Q6H PRN pain 3 days #12 tabs 09/15/21 lidocaine 5 % topical patch (Lidoderm) 1 patch topical DAILY #15 ea 09/15/21 Hospital Course Operations None Procedures None Summary of Care Provided Minutes Spent on Discharge: 40 Hospital Course: Patient is a 81 y/o female with a PMH as outlined who was admitted via the ED with a complaint of lower back pain that radiates down to her legs. She has a history of sciatica. She had associated headache, nausea, vomiting and vertigo. Review of systems was otherwise negative. Review of systems is otherwise negative. She was admitted to be managed for acute on chronic back pain. She was started on pain meds, and lidoderm patch. CT of the lumbar spine showed significant spinal stenosis at L4-5 due to disc degeneration and facet arthropathy. MRI of the lumbar spine was done which showed L4-5 canal stenosis and anterolisthesis and disc bulge as well as borderline L5-S1 canal stenosis with mild anterior listhesis and disc bulge. She did well with physical therapy and was able to ambulate. She remained stable and was discharged home on 09/15/2021. She is to follow up with her PCP and with pain management for pain shots. Patient seen and examined prior to discharge. She had no active complaints and had an uneventful night. Review of systems is otherwise negative. Labs and vitals reviewed. Home meds reviewed and reconciled. Physical Exam Const alert, oriented x3 and no apparent distress General Appearance: cooperative and comfortable Orientation / Consciousness: awake Exam Limitations: no limitations HEENT normocephalic, head/scalp atraumatic, hearing grossly normal bilaterally, moist oral mucous membranes and oropharynx normal Mouth: oral and palatal mucosa normal Eyes PERRL, EOMs intact bilaterally and conjunctivae normal Neck no lymphadenopathy and supple Resp normal respiratory effort, no retractions, no use of accessory muscles and clear to auscultation bilaterally Cardio regular rate, regular rhythm, S1 normal heart sound, S2 normal heart sound and no murmurs GI normal to inspection, nondistended, normoactive bowel sounds, soft to palpation, non-tender and non-distended Extremity normal to inspection, full ROM and no clubbing, cyanosis or edema Skin no rashes or lesions noted Neuro oriented x3, CN's II-XII intact bilaterally, moves all extremities and no focal motor deficits Sensorium / Orientation: awake and alert Motor Exam: strength 5/5 throughout Psych affect normal Weight / BMI Weight Weight: 97 lb 14.164 oz Body Mass Index (BMI) 18.5 ABG / Lab / Microbiology Data Result Diagrams: 09/15/21 04:12 09/15/21 04:12 Laboratory: Laboratory Results - last 24 hr 09/15/21 04:12: WBC 14.3 H, RBC 4.31, Hgb 13.3, Hct 40.4, MCV 93.7, MCH 30.9, MCHC 32.9, RDW Std Deviation 52.7 H, RDW Coeff of [place] 15.3 H, Plt Count 243, MPV 10.8, Immature Gran % (Auto) 0.800, Neut % (Auto) 63.9, Lymph % (Auto) 31.6, [place] % (Auto) 3.6, Eos % (Auto) 0.0, Baso % (Auto) 0.1, Absolute Neuts (auto) 9.1 H, Absolute Lymphs (auto) 4.51, Nucleated RBC % 0 09/15/21 04:12: Sodium 138, Potassium 4.1, Chloride 104, Carbon Dioxide 30.0, Anion Gap 4 L, BUN 25 H, Creatinine 0.63, Estim Creat Clear Calc 31.97, Est GFR (MDRD) Af Amer 117, Est GFR (MDRD) Non-Af 96, BUN/Creatinine Ratio 39.5 H, Glucose 118 H, Calcium 9.4 D/C Instructions Discharge Diet: Low fat / Low cholesterol Discharge Activity: Return to Normal Activity Weight Bearing Status: Weight bearing as tolerated Call your doctor if you observe: Fever of 101 or Higher, Shortness of breath, Swelling in the ankles, Increased palpitations (irregular heartbeat) and Uncontrolled pain Meaningful Use Info Meaningful Use Diagnoses (Choose all that apply): None applicable Discharge Plan Admission Admit Date/Time: 09/14/21 03:39 Primary Reason for Your Visit: intractable back pain due to spinal stenosis Attending Provider: Yeimi Moore Primary Care Provider: Donnell Tse Consulting Providers: Jonathan Hilario Instructions Patient Instructions: Causes of Lumbar (Low Back) Pain, ED Back Pain (Acute or Chronic) Discharge Orders/Prescriptions Prescriptions: New lidocaine [Lidoderm] 5 % adhesive patch,medicated 1 patch topical DAILY Qty: 15 0RF Rx Instructions: leave on most painful area for up to 12 hrs hydrocodone-acetaminophen 5-325 mg tablet 1 tab PO Q6H PRN (Reason: pain) 3 Days Qty: 12 0RF Continued budesonide-formoterol [Symbicort] 160-4.5 mcg/actuation HFA aerosol inhaler 2 puff inhalation BID Qty: 3 3RF tiotropium bromide 18 mcg capsule, w/inhalation device 18 mcg inhalation DAILY Qty: 3 3RF albuterol sulfate [Ventolin HFA] 90 mcg/actuation HFA aerosol inhaler 2 puff inhalation Q4H PRN (Reason: shortness of breath or wheezing) Qty: 3 3RF triamterene-hydrochlorothiazid 1 EACH tablet 1 tab PO DAILY multivitamin Tablet 1 tab PO DAILY alendronate 70 mg tablet 70 mg PO QWEEK Label Comments: pt has not been taking benzonatate 100 mg Capsule 100 mg PO TID PRN (Reason: Cough) ondansetron 4 mg tablet,disintegrating 4 mg PO Q8H PRN (Reason: nausea and vomiting) Qty: 10 0RF Discontinued acetaminophen 500 mg capsule 1,000 mg PO Q6H PRN (Reason: acute pain) Qty: 10 0RF hydrocodone-acetaminophen 5-325 mg tablet 1 tab PO Q6H PRN (Reason: pain) 3 Days Qty: 10 0RF Referrals / Follow Up: Sav Nowak MD [Med Staff - Active Staff] - Within 1 Week Donnell Tse MD [Primary Care Provider] - Within 2 Weeks Disposition Disposition (needs filled in before D/C Order can be placed): Home, Self Care Charges/Coding Visit Charges OBSV E&M: 86062 Observation care discharge
[2021-09-15 13:19] VITALS: PULSE 78; RESP 20
[2021-09-15 14:52] VITALS: BP 134/90; PULSE 77; RESP 16; TEMP 36.8; O2SAT 95
[2021-09-15 17:04] VITALS: BP 151/84; PULSE 78; RESP 18; TEMP 36.8; O2SAT 94
--- NOTE | 2021-09-15 18:40 | MRI_ITS ---
STUDY: MRI LUMBAR SPINE WITHOUT CONTRAST REASON FOR EXAM: Female, 81 years old. spinal stenosis TECHNIQUE: Standardized fat and water weighted pulse sequences were obtained in the sagittal and axial planes. COMPARISON: CT lumbar spine 09/12/2021. FINDINGS: No demonstrated fracture. Vertebral bodies are normal in height. T12-L1: Dehydration. Normal bilateral facet joints. Normal central canal. Normal bilateral lateral recesses. Normal intervertebral neural foramina. L1-2: Disc dehydration. Normal bilateral facet joints. Normal central canal. Normal bilateral lateral recesses. Normal intervertebral neural foramina. L2-3: Disc dehydration. Normal bilateral facet joints. Normal central canal. Normal bilateral lateral recesses. Small, noncompressive inferior foraminal disc protrusions. No significant foraminal stenosis. L3-4: Disc dehydration. Normal bilateral facet joints. Normal central canal. Normal bilateral lateral recesses. Small, noncompressive left inferior foraminal disc protrusion. No significant foraminal stenosis. L4-5: Disc dehydration and mild disc space narrowing. 4 mm degenerative anterolisthesis. No spondylolysis. Severe concentric canal stenosis due to anterolisthesis, mild disc bulge, moderate facet and ligamentous hypertrophy. Mild foraminal encroachment due to anterolisthesis and disc bulge. L5-S1: Disc dehydration. 1 to 2 mm degenerative anterolisthesis. No spondylolysis. Mild, noncompressive disc bulge. Borderline canal stenosis. Moderate facet hypertrophy. Mild foraminal encroachment due to anterolisthesis and disc bulge. Normal visualized sacral ala. Bilateral renal cysts measure up to 1 cm. Normal visualized paraspinous soft tissue structures. MRI/Spine Lumbar (Routine) IMPRESSION: L4-5 canal stenosis. Anterolisthesis and disc bulge are contributory. Borderline L5-S1 canal stenosis. Mild anterolisthesis and disc bulge are contributory. Electronically Signed: Cindy López MD at 21:05 EDT Reading Location ID and State: [id number] / Tel , Service support ,
== END 2021-09-15 19:50 | disposition home or self-care (01) ==
LOC: ED 03:14 → MS3 03:53
PROVIDERS: Admitting Provider Hospitalist; Emergency Provider Emergency Medicine; PCP Family Medicine; Visit Provider Student in an Organized Health Care Education/Training Program
DX: M48.07 Spinal stenosis, lumbosacral region (principal); C91.10 Chronic lymphocytic leukemia of B-cell type not having achieved remission; J44.9 Chronic obstructive pulmonary disease, unspecified; R11.2 Nausea with vomiting, unspecified; I10 Essential (primary) hypertension; R07.9 Chest pain, unspecified; M54.40 Lumbago with sciatica, unspecified side; R51.9 Headache, unspecified; R42 Dizziness and giddiness; M48.061 Spinal stenosis, lumbar region without neurogenic claudication; K21.9 Gastro-esophageal reflux disease without esophagitis; Z87.891 Personal history of nicotine dependence; Z99.81 Dependence on supplemental oxygen; Z79.899 Other long term (current) drug therapy
CPT/HCPCS: 36415; 72148; 80048; 81001; 85025; 93005; 94640; 96361; 96365; 96372; 96375; 97162; 99218; 99285; J7030; A4216; G0378; J2405

== ENCOUNTER 2022-04-15 12:47 | Emergency (ER) | payer MEDICARE, OTHER, SELFPAY ==
[2022-04-15] VITALS (25 sets, daily range): BP systolic 99–147; BP diastolic 63–89; PULSE 57–75; RESP 14–28; TEMP 36.6; O2SAT 95–100; BMI 16.9
--- NOTE | 2022-04-15 13:08 | CT_ITS ---
INDICATION: weakness, headache, dizzy EXAMINATION: CT BRAIN - CT Head or Brain W/O Contrast Injection TECHNIQUE: Multiple axial images were obtained of the head without intravenous contrast. A radiation dose optimization technique was used for this scan. IV Contrast dosage and agent: None. COMPARISON: 09/02/2017. FINDINGS: BRAIN PARENCHYMA: Moderate cortical and central atrophy, moderate chronic microvascular ischemic change periventricular white matter, mild cerebellar atrophy. CSF SPACES: Lateral calcified choroid plexus cysts the atria of the lateral ventricles bilaterally which are essentially a normal anatomic variant. CALVARIUM, SKULL BASE, PARANASAL SINUSES AND MASTOID AIR CELLS: Clear. No discrete lytic or blastic abnormalities. ORBITS: Both globes, extraocular muscles, optic nerves and retrobulbar fat appear unremarkable. ASPECTS Score for Acute Strokes: [address]/Brain/Head without Contrast IMPRESSION: Moderate cortical and central atrophy, mild cerebellar atrophy. Moderate chronic microvascular ischemic change periventricular white matter. Calcified choroid plexus cyst within the atria of the lateral ventricles bilaterally essentially normal anatomic variant. Electronically Signed: Ole Fonatna MD, JEANETTE at 13:54 EST ,
--- NOTE | 2022-04-15 13:08 | EKG12_ITS ---
Test Reason : ABD PAIN Blood Pressure : / mmHG Vent. Rate : 058 BPM Atrial Rate : 058 BPM P-R Int : 132 ms QRS Dur : 094 ms QT Int : 404 ms P-R-T Axes : 074 056 067 degrees QTc Int : 396 ms Sinus bradycardia with Premature atrial complexes Nonspecific ST abnormality Abnormal ECG Confirmed by BETTIE SNOW, QUETA ([id number]), publication editor JEREMIE MENDOZA ([id number]) on 04/17/2022 1:02:40 PM Referred By: Confirmed By:QUETA ALEXANDRE MD
--- NOTE | 2022-04-15 13:15 | EX.ED.DYSGE1 ---
HPI History of Present Illness Chief Complaint: Abd Pain Detail of Chief Complaint: Generalized weakness Informant: patient, spouse/S.O. and family Narrative Narrative: Patient presents via EMS secondary to generalized weakness. 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 She is complaining of that today also. states that 2 days ago she was not able to get out of bed because she was just too weak. Again today she was too weak to get out of bed. She apparently told EMS she had abdominal pain. She told nursing staff that she had left-sided body pain. To me she does complains of generalized weakness and not feeling well. She denies chest pain or significant shortness of breath. Family does not feel as if she is eating enough. She denies any falls or injuries. [facility] Medical History Abdominal pain Arthritis Back pain Cardiology follow-up encounter Cervical cancer CLL (chronic lymphocytic leukemia) CML (chronic myelocytic leukemia) Constipation COPD (chronic obstructive pulmonary disease) Easy bruising Essential hypertension Former smoker Gastric reflux Gastritis History of bilateral breast cancer History of echocardiogram History of edema History of stress test Hoarseness Hx of small bowel obstruction Hypertension Intractable back pain Leg cramps Lumbar back pain Meniere disease Nonrheumatic mitral valve regurgitation Nonrheumatic tricuspid valve regurgitation On home oxygen therapy Pneumothorax Radicular pain of lower extremity Sciatica Thrush Weight loss Home Medications triamterene 37.5 mg-hydrochlorothiazide 25 mg tablet 1 tab PO DAILY bp 04/19/19 [History Last Taken 09/19/20] multivitamin 1 tab PO DAILY vitamin 09/20/20 [History Last Taken 02/11/21] alendronate 70 mg tablet 70 mg PO QWEEK 12/13/20 [History Last Taken Unknown] benzonatate 100 mg capsule 100 mg PO TID PRN Cough 12/13/20 [History Last Taken Unknown] ondansetron 4 mg disintegrating tablet 4 mg PO Q8H PRN nausea and vomiting #10 tabs 09/12/21 [Rx Last Taken Unknown] hydrocodone-acetaminophen 5-325mg 5mg-325mg 1 tab PO Q6H PRN pain 3 days #12 tabs 09/15/21 [Rx Last Taken Unknown] lidocaine 5 % topical patch (Lidoderm) 1 patch topical DAILY #15 ea 09/15/21 [Rx Last Taken Unknown] Ventolin HFA 90 mcg/actuation aerosol inhaler (albuterol sulfate) 2 puff inhalation Q4H PRN shortness of breath or wheezing #3 device 01/07/22 [Rx Last Taken Unknown] budesonide-formoterol HFA 160 mcg-4.5 mcg/actuation aerosol inhaler (Symbicort) 2 puff inhalation BID copd #3 device 01/07/22 [Rx Last Taken Unknown] tiotropium bromide 18 mcg capsule with inhalation device 18 mcg inhalation DAILY copd #3 ea 01/07/22 [Rx Last Taken Unknown] doxycycline hyclate 100 mg capsule 100 mg PO BID #20 caps 02/12/22 [Rx Last Taken Unknown] meclizine 25 mg chewable tablet (Antivert) 25 mg PO BID PRN vertigo #20 tabs 04/15/22 [Rx Last Taken Unknown] Allergy/AdvReac Type Severity Reaction Status Date / Time shellfish derived Allergy Severe Anaphylaxis Verified 04/15/22 12:59 bacitracin Allergy Rash Verified 04/15/22 12:59 codeine Allergy Rash Verified 04/15/22 12:59 latex Allergy IF PT USES Verified 04/15/22 12:59 LATEX GLOVES GETS RASH wal[place] Allergy Swelling Verified 04/15/22 12:59 Family History Father Abdominal aortic aneurysm (AAA) Mother Alzheimers disease Surgical History History of bladder surgery History of breast reconstruction History of cataract surgery History of dilatation and curettage History of esophagogastroduodenoscopy (EGD) History of lung surgery History of mastectomy Hx of bilateral cataract extraction Hx of bilateral oophorectomy Hx of colonoscopy Hx of lymph node excision Social History household members: spouse number of children: 2 current occupational status: retired Smoking Status: Former smoker how long ago did patient quit smokin ppd since 20s, quiting ~ 15 years prior to current presentation. alcohol intake: current details: 4 glasses wine per week substance use type: does not use ROS ROS ED Constitutional Constitutional ED: Denies chills or fever(s) Eyes Eyes: Denies change in vision or discharge from eye(s) ENT ENT ED: Denies discharge from eye(s), rhinorrhea or sore throat Cardiovascular Cardiovascular: Denies chest pain or palpitations Respiratory/Chest Respiratory/Chest: Denies cough or dyspnea Gastrointestinal Gastrointestinal: Reports abdominal pain; Denies diarrhea, nausea or vomiting Genitourinary Genitourinary ED: Denies difficulty urinating or dysuria Musculoskeletal Musculoskeletal: Denies back pain or extremity pain Integumentary Denies Abrasions or rash Neurologic Neurologic: Reports weakness and other Details: Spinning sensation ; Denies headache(s) Psychiatric Psychiatric: Denies anxiety or depression Allergic/Immunologic Allergic/Immunologic ED: Denies lip swelling or urticaria EXAM Physical Exam Const Vital Signs: 04/15/22 12:48 Temperature 98 F Temperature Source Oral Pulse Rate 62 Respiratory Rate 18 Blood Pressure 129/85 H Blood Pressure Mean 99 Pulse Ox 96 Oxygen Delivery Method Room Air Positive well nourished and well developed General Appearance ED: well developed HEENT Reports normocephalic and head/scalp atraumatic Eyes PERRL and EOMs intact bilaterally Neck supple Chest Wall inspection of chest normal and palpation of chest normal Resp normal respiratory effort and clear to auscultation bilaterally Cardio regular rate and regular rhythm GI non-tender Auscultation: hypoactive bowel sounds Palpation: soft Extremity normal to inspection Neuro oriented x3 and no sensory deficits noted Sensorium / Orientation: alert Motor Exam: strength 5/5 throughout Psych mental status grossly normal Skin no rashes or lesions noted MDM MDM MDM Narrative Medical decision making narrative: Patient placed on groundwater monitoring technician to evaluate for arrhythmia. Lab work obtained to evaluate for leukocytosis, anemia, electrolyte derangement. Urinalysis obtained to evaluate for infection. CT scan of the head obtained given her dizziness and headache. Patient given IV fluids. Lab Data Attestation: I reviewed the patient's lab results. Labs: Laboratory Results - last 24 hr 04/15/22 04/15/22 04/15/22 12:50 12:50 14:30 WBC 15.6 H RBC 4.72 Hgb 14.6 Hct 43.2 MCV 91.5 MCH 30.9 MCHC 33.8 RDW Std Deviation 44.9 H RDW Coeff of [place] 13.4 Plt Count 200 MPV 11.8 Immature Gran % (Auto) 0.300 Neut % (Auto) 61.8 Lymph % (Auto) 32.0 [place] % (Auto) 5.3 Eos % (Auto) 0.3 Baso % (Auto) 0.3 Absolute Neuts (auto) 9.6 H Absolute Lymphs (auto) 4.98 H Nucleated RBC % 0 Sodium 138 Potassium 3.4 L Chloride 99 Carbon Dioxide 28.0 Anion Gap 11 BUN 35 H Creatinine 0.80 Estim Creat Clear Calc 36.55 Est GFR (MDRD) Af Amer 89 Est GFR (MDRD) Non-Af 74 BUN/Creatinine Ratio 44.0 H Glucose 126 H Calcium 9.8 Total Bilirubin 0.60 Direct Bilirubin 0.19 AST 21 ALT 27 Alkaline Phosphatase 79 Troponin I High Sens 4 Total Protein 6.5 Albumin 3.7 Globulin 2.8 Urine Color Yellow Urine Clarity Sl. Cloudy Urine pH 6.0 Ur Specific [place] 1.020 Urine Protein 15 H Urine Glucose (UA) Normal Urine Ketones 5 H Urine Occult Blood Negative Urine Nitrite Negative Urine Bilirubin Negative Urine Urobilinogen Normal Ur Leukocyte Esterase 100 H Urine RBC 0 SEEN Urine WBC 0-5 SEEN Ur Squamous Epith Cells 0-5 SEEN Urine Bacteria 0 SEEN Hyaline Casts 0-5 SEEN Urine Mucus 0 SEEN Radiography Diagnostic Testing: Clinical Impression(s) from Imaging Studies Brain CT 04/15/22 13:08 IMPRESSION: Moderate cortical and central atrophy, mild cerebellar atrophy. Moderate chronic microvascular ischemic change periventricular white matter. Calcified choroid plexus cyst within the atria of the lateral ventricles bilaterally essentially normal anatomic variant. Electronically Signed: Ole Fontana MD, JEANETTE at 13:54 EST Reading Location ID and State: [facility] / [place] Tel , Service support , EKG Initial EKG: Attestation: I personally reviewed and interpreted this EKG as follows: Interpretation: Sinus Bradycardia (Sinus bradycardia with PACs. No acute ischemia.) Treatment and Re-Evaluation Narrative: CBC reveals a white count of 15.6 however patient does have a history of leukemia and runs a chronically elevated white count. This is near her baseline. Hemoglobin is 14.6. Chemistry studies reveal slightly low potassium at 3.4. This is replaced orally. Troponin is normal at 4. Urinalysis reveals no sign of acute infection. Urine ketones are 5. CT scan of the head reveals chronic changes with no acute findings. Patient will have been given the oral potassium replacement along with a dose of Antivert. On repeat evaluation she does feel improved. She was able to get up to the bedside commode without difficulty. Although she is on a medication for M?ni?re's disease from her ENT doctor, she does not remember the name of it. I do not see that she has been prescribed Antivert in reviewing the area pharmacy medication fills. I will write her a short course of Antivert to see if this helps with her vertigo. Return instructions were provided. and daughter at bedside are comfortable with the plan. Discharge Plan Triage Chief Complaint: Abd Pain ED Provider: Jess Kendrick Dx/Rx/DC Orders Clinical Impression: Vertigo, Weakness Instructions: ED Vertigo, Unspecified, ED Weakness (Uncertain Cause) Prescriptions: New meclizine [Antivert] 25 mg tablet,chewable 25 mg PO BID PRN (Reason: vertigo) Qty: 20 0RF No Action budesonide-formoterol [Symbicort] 160-4.5 mcg/actuation HFA aerosol inhaler 2 puff inhalation BID Qty: 3 3RF tiotropium bromide 18 mcg capsule, w/inhalation device 18 mcg inhalation DAILY Qty: 3 3RF albuterol sulfate [Ventolin HFA] 90 mcg/actuation HFA aerosol inhaler 2 puff inhalation Q4H PRN (Reason: shortness of breath or wheezing) Qty: 3 3RF triamterene-hydrochlorothiazid 1 EACH tablet 1 tab PO DAILY multivitamin Tablet 1 tab PO DAILY alendronate 70 mg tablet 70 mg PO QWEEK Label Comments: pt has not been taking benzonatate 100 mg Capsule 100 mg PO TID PRN (Reason: Cough) ondansetron 4 mg tablet,disintegrating 4 mg PO Q8H PRN (Reason: nausea and vomiting) Qty: 10 0RF lidocaine [Lidoderm] 5 % adhesive patch,medicated 1 patch topical DAILY Qty: 15 0RF Rx Instructions: leave on most painful area for up to 12 hrs hydrocodone-acetaminophen 5-325 mg tablet 1 tab PO Q6H PRN (Reason: pain) 3 Days Qty: 12 0RF doxycycline hyclate 100 mg capsule 100 mg PO BID Qty: 20 0RF Primary Care Provider: Donnell Tse Referrals: Donnell Tse MD [Primary Care Provider] - 1-2 Weeks Disposition Disposition: Home, Self Care
[2022-04-15 13:23] LABS: Absolute Lymphocyte Count 4.98 X10^3/uL (0.83-4.51); Absolute Neutrophil Count 9.6 X10^3/uL (2.0-7.7); Basophil# 0.05 X10^3/uL; Basophil% 0.3 % (0-1); Eosinophil# 0.05 X10^3/uL; Eosinophils% 0.3 % (0-5); Hematocrit 43.2 % (37-47); Hemoglobin 14.6 g/dL (12.0-15.0); Lymphocyte # 4.98 X10^3/ul (0.83-4.51); Mean Corp Hgb Conc 33.8 g/dL (32-36); Mean Corpuscular Hgb 30.9 pg (27.0-32.0); Mean Corpuscular Volume 91.5 fL (81-99); Mean Platelet Vol. 11.8 fl (6.2-12.0); Monocyte# 0.82 X10^3/uL; Monocyte% 5.3 % (0-10); NRBC Flagged by Analyzer 0 % (0-5); Neutrophil # 9.61 X10^3/uL (2.7-7.7); Neutrophil % 61.8 % (47-70); Platelet Count 200 K/mm3 (150-450); RBC Distribution Width CV 13.4 % (11.6-14.6); RBC Distribution Width SD 44.9 fl (35.1-43.9); Red Blood Count 4.72 M/mm3 (4.2-5.4); White Blood Count 15.6 K/mm3 (4.4-11.0)
[2022-04-15] MEDS: 0.9% Normal Saline 1,000 ML 100 ML IV (13:23)
[2022-04-15 13:44] LABS: AST(SGOT) 21 U/L (15-37); Alanine Aminotransfer ALT/SGPT 27 U/L (13-56); Albumin, Serum 3.7 g/dL (3.2-5.0); Alkaline Phosphatase 79 U/L (45-117); Anion Gap 11 (5-15); BUN 35 mg/dL (7-18); Bilirubin, Direct 0.19 mg/dL (0.00-0.30); Calcium,Total 9.8 mg/dL (8.5-10.1); Chloride 99 mmol/L (98-107); EST Glomerular Filtration Rate 74 mL/min (>60); Est Glom Filt Rate - Afr Amer 89 mL/min (>60); Estimated Creatinine Clearance 36.55 ml/min; Globulin 2.8 g/dL (2.2-4.2); Glucose 126 mg/dL (74-106); Potassium 3.4 mmol/L (3.5-5.1); Protein, Total 6.5 g/dL (6.4-8.2); Sodium Level 138 mmol/L (136-145); Troponin-I HS 4 pg/mL (3.0-54.0)
[2022-04-15] MEDS: Potassium Chloride Oral Tablet 20 MEQ 40 MEQ PO (14:29)
[2022-04-15] MEDS: Meclizine 12.5 MG Tablet PO (14:29)
[2022-04-15 14:43] LABS: Bacteria 0 SEEN /hpf (None Seen); Mucous, Urine 0 SEEN /hpf (<or=2+); Red Blood Cells-Urine 0 SEEN /hpf (0-5)
[2022-04-15 14:46] LABS: Color, Urine Yellow (Yellow); Glucose, Dipstick Normal (Normal); Ketone-Dipstick 5 mg/dl (Negative); Leukocyte Esterase-Dipstick 100 /ul (Negative); Nitrite-Dipstick Negative (Negative); Occult Blood-Urine Negative /ul (Negative); Protein-Dipstick 15 mg/dl (Negative); Urine Bilirubin Dipstick Negative (Negative); Urine Clarity Sl. Cloudy (Clear); Urine Urobilinogen Normal (Normal)
[2022-04-15 15:02] LABS: Hyaline Cast 0-5 SEEN /lpf (0-5); Squamous Epithelial Cells - UA 0-5 SEEN /hpf (5-10); White Blood Cells 0-5 SEEN /hpf (0-5)
== END 2022-04-15 15:52 | disposition home or self-care (01) ==
PROVIDERS: Emergency Provider Emergency Medicine; PCP Family Medicine; Visit Provider Emergency Medicine
DX: R53.1 Weakness (principal); J44.9 Chronic obstructive pulmonary disease, unspecified; R10.9 Unspecified abdominal pain; Z87.891 Personal history of nicotine dependence; I10 Essential (primary) hypertension; Z87.898 Personal history of other specified conditions; H81.09 Meniere's disease, unspecified ear
CPT/HCPCS: 70450; 80048; 80076; 81001; 84484; 85025; 93005; 99285; J7030; A4216

== ENCOUNTER 2022-11-18 10:33 | Emergency (ER) | payer MEDICARE, OTHER, SELFPAY ==
[2022-11-18] VITALS (7 sets, daily range): BP systolic 134–150; BP diastolic 80–86; PULSE 66–72; RESP 12–24; TEMP 36.5; O2SAT 95–97; BMI 18.3
[2022-11-18 10:59] LABS: Absolute Neutrophil Count 10.8 X10^3/uL (2.0-7.7); Basophil# 0.07 X10^3/uL; Basophil% 0.4 % (0-1); Eosinophil# 0.32 X10^3/uL; Hematocrit 43.3 % (37-47); Hemoglobin 13.8 g/dL (12.0-15.0); Mean Corp Hgb Conc 31.9 g/dL (32-36); Mean Corpuscular Hgb 30.4 pg (27.0-32.0); Mean Corpuscular Volume 95.4 fL (81-99); Mean Platelet Vol. 11.8 fl (6.2-12.0); Monocyte# 1.07 X10^3/uL; Monocyte% 6.7 % (0-10); NRBC Flagged by Analyzer 0 % (0-5); Neutrophil # 10.84 X10^3/uL (2.7-7.7); Neutrophil % 68.3 % (47-70); Platelet Count 161 K/mm3 (150-450); RBC Distribution Width CV 14.1 % (11.6-14.6); RBC Distribution Width SD 49.1 fl (35.1-43.9); Red Blood Count 4.54 M/mm3 (4.2-5.4); White Blood Count 15.9 K/mm3 (4.4-11.0)
--- NOTE | 2022-11-18 11:00 | RAD_ITS ---
STUDY: X-RAY CHEST REASON FOR EXAM: Female, 82 years old. Chest pain TECHNIQUE: Single AP portable view of the chest. COMPARISON: Comparison is made with prior study dated December 14, 2020. FINDINGS: EKG electrodes are seen. Hyperinflation. Stable mild increased markings at the lung bases suggestive of mild scarring. There is no demonstrated pleural abnormality. Normal size heart. Normal mediastinum and porfirio. Normal visualized pulmonary arteries. There is atherosclerotic calcification of the aortic arch with tortuosity. Surgical clips are seen overlying the aortopulmonary window. Normal visualized thoracic spine. Normal visualized ribs, clavicles, and shoulders. There is no demonstrated abnormality of the visualized soft tissue structures of the upper abdomen. RAD/Chest 1 View (Portable) IMPRESSION: Hyperinflation. No acute abnormality is seen. Findings suggest mild scarring at the lung bases. Electronically Signed: Brandan Lee MD at 11:19 EDT ,
--- NOTE | 2022-11-18 11:03 | ED.VIS.CHEST ---
HPI History of Present Illness Chief Complaint: Chest Pain Narrative Narrative: 82-year-old female presenting with pain in the sternum. Patient states onset was 2 days ago. She states she was walking with her rollator and a friend of hers came up to her in the hallway and tried to hug her at which point she fell hitting her sternum on her rollator. She does not recall what happened as she states she fell and hit her head. She presumes she lost consciousness. She states she has history of rib fractures in the past secondary to fall. States is worse when she takes a deep breath. Not had fever, chills, cough. PFSH [facility] Medical History Abdominal pain Arthritis Back pain Cardiology follow-up encounter Cervical cancer CLL (chronic lymphocytic leukemia) CML (chronic myelocytic leukemia) Constipation COPD (chronic obstructive pulmonary disease) Easy bruising Essential hypertension Former smoker Gastric reflux Gastritis History of bilateral breast cancer History of echocardiogram History of edema History of stress test Hoarseness Hx of small bowel obstruction Hypertension Intractable back pain Leg cramps Lumbar back pain Meniere disease Nonrheumatic mitral valve regurgitation Nonrheumatic tricuspid valve regurgitation On home oxygen therapy Pneumothorax Radicular pain of lower extremity Sciatica Thrush Weight loss Home Medications triamterene 37.5 mg-hydrochlorothiazide 25 mg tablet 1 tab PO DAILY bp 04/19/19 [History Last Taken 09/19/20] multivitamin 1 tab PO DAILY vitamin 09/20/20 [History Last Taken 02/11/21] alendronate 70 mg tablet 70 mg PO QWEEK 12/13/20 [History Last Taken Unknown] benzonatate 100 mg capsule 100 mg PO TID PRN Cough 12/13/20 [History Last Taken Unknown] ondansetron 4 mg disintegrating tablet 4 mg PO Q8H PRN nausea and vomiting #10 tabs 09/12/21 [Rx Last Taken Unknown] lidocaine 5 % topical patch (Lidoderm) 1 patch topical DAILY #15 ea 09/15/21 [Rx Last Taken Unknown] Ventolin HFA 90 mcg/actuation aerosol inhaler (albuterol sulfate) 2 puff inhalation Q4H PRN shortness of breath or wheezing #3 device 01/07/22 [Rx Last Taken Unknown] tiotropium bromide 18 mcg capsule with inhalation device 18 mcg inhalation DAILY copd #3 ea 01/07/22 [Rx Last Taken Unknown] meclizine 25 mg chewable tablet (Antivert) 25 mg PO BID PRN vertigo #20 tabs 04/15/22 [Rx Last Taken Unknown] fluticasone 232 mcg-salmeterol 14 mcg/actuation breath activated powdr (AirDuo RespiClick) 1 inh inhalation Q12H #1 ea 10/09/22 [Rx Last Taken Unknown] lidocaine 5 % topical patch (Lidoderm) 1 patch topical DAILY PRN pain #15 ea 11/18/22 [Rx Last Taken Unknown] Allergy/AdvReac Type Severity Reaction Status Date / Time shellfish derived Allergy Severe Anaphylaxis Verified 11/18/22 10:40 bacitracin Allergy Rash Verified 11/18/22 10:40 codeine Allergy Rash Verified 11/18/22 10:40 latex Allergy IF PT USES Verified 11/18/22 10:40 LATEX GLOVES GETS RASH wal[place] Allergy Swelling Verified 11/18/22 10:40 amoxicillin [From Augmentin] AdvReac Mild Vomiting Verified 11/18/22 10:40 clavulanic acid AdvReac Mild Vomiting Verified 11/18/22 10:40 [From Augmentin] Family History Father Abdominal aortic aneurysm (AAA) Mother Alzheimers disease Surgical History History of bladder surgery History of breast reconstruction History of cataract surgery History of dilatation and curettage History of esophagogastroduodenoscopy (EGD) History of lung surgery History of mastectomy Hx of bilateral cataract extraction Hx of bilateral oophorectomy Hx of colonoscopy Hx of lymph node excision Social History household members: spouse number of children: 2 current occupational status: retired Smoking Status: Former smoker how long ago did patient quit smokin ppd since 20s, quiting ~ 15 years prior to current presentation. alcohol intake: current details: 4 glasses wine per week substance use type: does not use ROS ROS ED Constitutional Constitutional ED: Denies chills, fever(s) or sweats Eyes Eyes: Denies blurry vision or change in vision ENT ENT ED: Denies ear pain or sore throat Cardiovascular Cardiovascular: Reports chest pain; Denies palpitations or racing heartbeat Respiratory/Chest Respiratory/Chest: Denies cough, dyspnea or sputum Gastrointestinal Gastrointestinal: Denies abdominal pain, constipation, diarrhea, nausea or vomiting Genitourinary Genitourinary ED: Denies dysuria, hematuria or urinary frequency Musculoskeletal Musculoskeletal: Denies arthralgias, myalgias or neck pain Integumentary Denies abscess, Abrasions or rash Neurologic Neurologic: Denies headache(s), paresthesias or weakness Psychiatric Psychiatric: Denies anxiety, depression, suicidal ideation or suicidal thoughts Endocrine Endocrinology: Denies polydipsia or polyuria EXAM Physical Exam Const Vital Signs: 11/18/22 10:37 11/18/22 10:41 11/18/22 10:56 Temperature 97.7 F L Temperature Source Temporal Pulse Rate 72 Respiratory Rate 16 Respiratory Effort Normal Non-Labored Blood Pressure 150/86 H Blood Pressure Mean 107 Pulse Ox 97 97 Oxygen Delivery Method Room Air 11/18/22 12:33 11/18/22 13:02 Temperature Temperature Source Pulse Rate 69 66 Respiratory Rate 16 12 Respiratory Effort Blood Pressure 140/80 H 134/80 H Blood Pressure Mean 100 98 Pulse Ox 97 96 Oxygen Delivery Method Room Air Room Air Positive well nourished General Appearance ED: NAD HEENT Reports TM's clear and moist mucous membranes Tympanic Membrane ED: Yes TM's clear Eyes PERRL and EOMs intact bilaterally Chest Wall Chest Narrative: Palpation of her mid sternum. Equal symmetric breath sounds or chest wall rise. Resp normal respiratory effort and clear to auscultation bilaterally Cardio regular rate and regular rhythm GI normal to inspection, nondistended, normoactive bowel sounds Neuro oriented x3 and CN's II-XII intact bilaterally Sensorium / Orientation: awake and alert Psych mental status grossly normal Skin no rashes or lesions noted Heart Score History: Slightly/Non-Suspicious ECG: Normal Risk Factors: 1 or 2 Risk Factors Troponin: </= Normal Limit Score: 1 MDM MDM MDM Narrative Medical decision making narrative: Patient presenting with chest wall pain. Its over her sternum. She had mechanical fall injuring this. Most likely this represents sternal contusion however sternal fracture, rib fracture, ACS, pneumonia, pneumothorax are all included in the differential. CBC will be obtained to assess white blood cell count, hemoglobin, platelets. Assess renal function, electrolytes, glucose. High-sensitivity troponin and EKG to assess for ischemia and dysrhythmia. Chest x-ray to rule out pneumonia or pneumothorax. Lidoderm patch was applied to the sternum. CBC shows slight leukocytosis of 15.9 however patient has history of CML and this is about the right range for her. Hemoglobin stable at 13.8. Platelets are 161. Renal function and electrolytes within normal limits with exception of a potassium of 3.4. X-ray my interpretation showed no acute process. CT brain was ordered as the patient hit her head and cannot recall the incident when she fell. Negative. D-dimer was elevated at 0.96 and therefore CTA was performed. CTA does not show any PE, dissection, pneumonia. It does show a liver that he which will need to be followed up but is not acute. Impression: 1. Chest pain 2. History of CML 3. Fall 4. Closed head injury 5. Costochondritis Lab Data Attestation: I reviewed the patient's lab results. Labs: Laboratory Results - last 24 hr 11/18/22 11/18/22 10:17 13:15 WBC 15.9 H RBC 4.54 Hgb 13.8 Hct 43.3 MCV 95.4 MCH 30.4 MCHC 31.9 L RDW Std Deviation 49.1 H RDW Coeff of [place] 14.1 Plt Count 161 MPV 11.8 Immature Gran % (Auto) 0.600 Neut % (Auto) 68.3 Lymph % (Auto) 22.0 [place] % (Auto) 6.7 Eos % (Auto) 2.0 Baso % (Auto) 0.4 Absolute Neuts (auto) 10.8 H Absolute Lymphs (auto) 3.50 Nucleated RBC % 0 D-Dimer Quant (PE/DVT) 0.96 H* Sodium 142 Potassium 3.4 L Chloride 104 Carbon Dioxide 35.0 H Anion Gap 3 L BUN 24 H Creatinine 0.72 Estim Creat Clear Calc 31.17 Est GFR (MDRD) Af Amer 100 Est GFR (MDRD) Non-Af 82 BUN/Creatinine Ratio 33.2 H Glucose 81 Calcium 9.1 Troponin I High Sens 7 6 Radiography Diagnostic Testing: Clinical Impression(s) from Imaging Studies Chest X-Ray 11/18/22 11:00 IMPRESSION: Hyperinflation. No acute abnormality is seen. Findings suggest mild scarring at the lung bases. Electronically Signed: Brandan Lee MD at 11:19 EDT , Brain CT 11/18/22 11:04 IMPRESSION: Chronic involutional changes of the brain. Electronically Signed: Brandan Lee MD at 12:18 EDT , Chest CTA 11/18/22 11:32 IMPRESSION: Hyperinflation. No evidence of pulmonary embolism. Diffuse emphysematous changes. 1.2 cm nodular density in the peripheral lateral aspect of the right lower lobe. Correlation with a PET scan is recommended. Electronically Signed: Brandan Lee MD at 12:21 EDT , Discharge Plan Triage Chief Complaint: Chest Pain ED Provider: Ponce Wang Dx/Rx/DC Orders Instructions: ED Chest Wall Pain, Costochondritis Prescriptions: New lidocaine [Lidoderm] 5 % adhesive patch,medicated 1 patch topical DAILY PRN (Reason: pain) Qty: 15 0RF Rx Instructions: leave on most painful area for up to 12 hrs No Action tiotropium bromide 18 mcg capsule, w/inhalation device 18 mcg inhalation DAILY Qty: 3 3RF albuterol sulfate [Ventolin HFA] 90 mcg/actuation HFA aerosol inhaler 2 puff inhalation Q4H PRN (Reason: shortness of breath or wheezing) Qty: 3 3RF triamterene-hydrochlorothiazid 1 EACH tablet 1 tab PO DAILY multivitamin Tablet 1 tab PO DAILY alendronate 70 mg tablet 70 mg PO QWEEK Patient Comments: pt has not been taking benzonatate 100 mg Capsule 100 mg PO TID PRN (Reason: Cough) ondansetron 4 mg tablet,disintegrating 4 mg PO Q8H PRN (Reason: nausea and vomiting) Qty: 10 0RF lidocaine [Lidoderm] 5 % adhesive patch,medicated 1 patch topical DAILY Qty: 15 0RF Rx Instructions: leave on most painful area for up to 12 hrs meclizine [Antivert] 25 mg tablet,chewable 25 mg PO BID PRN (Reason: vertigo) Qty: 20 0RF fluticasone propion-salmeterol [AirDuo RespiClick] 232-14 mcg/actuation aerosol powdr breath activated 1 inh inhalation Q12H Qty: 1 11RF Primary Care Provider: Donnell Tse Referrals: Donnell Tse MD [Primary Care Provider] - Disposition Disposition: Home, Self Care
--- NOTE | 2022-11-18 11:04 | CT_ITS ---
STUDY: CT BRAIN WITHOUT CONTRAST REASON FOR EXAM: Female, 82 years old. Headache. RADIATION DOSAGE (If Supplied By Facility): CTDIvol = ( 44.99 ) mGy, DLP = ( 745.49 ) mGycm TECHNIQUE: Transaxial CT imaging of the brain was performed without administration of intravenous contrast material. Individualized dose optimization techniques were used for this CT. COMPARISON: Comparison is made with prior study dated April 15, 2022. FINDINGS: Normal soft tissue structures. Normal calvarium. There is mild cerebral atrophy with widening of the extra-axial spaces and ventricular dilatation. There are areas of decreased attenuation within the white matter tracts of the supratentorial brain, consistent with microvascular disease changes. Normal basal ganglia and thalami. Normal brainstem. Normal cerebellum. There is no intracranial hemorrhage. There are no findings of an acute ischemic infarction. Normal visualized paranasal sinuses. CT/Brain/Head without Contrast IMPRESSION: Chronic involutional changes of the brain. Electronically Signed: Brandan Lee MD at 12:18 EDT ,
[2022-11-18 11:16] LABS: Anion Gap 3 (5-15); BUN 24 mg/dL (7-18); BUN/Creat Ratio 33.2 RATIO (10-20); Calcium,Total 9.1 mg/dL (8.5-10.1); Chloride 104 mmol/L (98-107); Creatinine, Serum 0.72 mg/dL (0.55-1.02); EST Glomerular Filtration Rate 82 mL/min (>60); Est Glom Filt Rate - Afr Amer 100 mL/min (>60); Estimated Creatinine Clearance 31.17 ml/min; Glucose 81 mg/dL (74-106); Potassium 3.4 mmol/L (3.5-5.1); Sodium Level 142 mmol/L (136-145); Troponin-I HS (w/2H Reflex) 7 pg/mL (3.0-54.0)
[2022-11-18 11:21] LABS: D-Dimer Quantitative (DVT/PE) 0.96 FEU/ug/m (0.27-0.49)
--- NOTE | 2022-11-18 11:32 | CT_ITS ---
STUDY: CTA CHEST REASON FOR EXAM: Female, 82 years old. Chest pain RADIATION DOSAGE (If Supplied By Facility): CTDIvol = ( 4.06 ) mGy, DLP = ( 121.12 ) mGycm TECHNIQUE: The examination was performed with the intravenous administration of IV 75mL Isovue-370. Post-processing of the angiographic images was performed, with multiplanar reformation and 3D reconstruction. Individualized dose optimization techniques were used for this CT. COMPARISON: Comparison is made with prior chest radiograph done earlier in the day as well as prior CT scan of the chest dated December 14, 2020. FINDINGS: Bilateral breast prostheses. Normal enhancement of the main pulmonary artery and right and left pulmonary arteries. Normal enhancement of the bilateral peripheral pulmonary arteries. There is no demonstrated pulmonary embolism. Normal thoracic aorta and visualized great vessels. There is no demonstrated aortic dissection. Normal heart and pericardium. Normal mediastinum. Normal hilar regions. Normal visualized trachea and bronchi. Hyperinflation. Diffuse emphysematous changes worse in the upper lobes. There is a 1.2 cm nodular density in the peripheral lateral aspect of the right lower lobe as seen on axial image #87 and coronal image #199. Correlation with a PET scan is recommended. Normal chest wall structures. There are degenerative changes of thoracic spine. There is a 2.1 cm cyst in the anterior aspect of the left lobe of the liver. CT/CTA Chest W/WO Contrast IMPRESSION: Hyperinflation. No evidence of pulmonary embolism. Diffuse emphysematous changes. 1.2 cm nodular density in the peripheral lateral aspect of the right lower lobe. Correlation with a PET scan is recommended. Electronically Signed: Brandan Lee MD at 12:21 EDT ,
[2022-11-18] MEDS: Lidocaine 5% Patch 1 PATCH TOPICAL (12:26)
[2022-11-18 12:55] LABS: Reflex Troponin-HS? (from REC) Y
[2022-11-18 13:44] LABS: Troponin-I HS 6 pg/mL (3.0-54.0)
== END 2022-11-18 14:55 | disposition home or self-care (01) ==
PROVIDERS: Emergency Provider Student in an Organized Health Care Education/Training Program; PCP Family Medicine; Visit Provider Student in an Organized Health Care Education/Training Program
DX: R07.9 Chest pain, unspecified (principal); C92.Z0 Other myeloid leukemia not having achieved remission; J44.9 Chronic obstructive pulmonary disease, unspecified; M94.0 Chondrocostal junction syndrome [Tietze]; Z87.891 Personal history of nicotine dependence; I10 Essential (primary) hypertension; W17.89XA Other fall from one level to another, initial encounter; Z99.81 Dependence on supplemental oxygen; Z79.899 Other long term (current) drug therapy; Z79.51 Long term (current) use of inhaled steroids; Z90.10 Acquired absence of unspecified breast and nipple; S09.90XA Unspecified injury of head, initial encounter
CPT/HCPCS: 70450; 71045; 71275; 80048; 84484; 85025; 85379; 93005; 99284; Q9967; A4216

== ENCOUNTER 2022-12-04 13:33 | Emergency (ER) | payer MEDICARE, OTHER, SELFPAY ==
[2022-12-04 13:36] VITALS: BP 122/72; PULSE 82; RESP 28; TEMP 36.7; O2SAT 95; BMI 18.3
--- NOTE | 2022-12-04 15:54 | EX.ED.DYSGE1 ---
HPI History of Present Illness Chief Complaint: Other, Pain/Inj Narrative Narrative: Patient is a very pleasant 82-year-old female who is presenting to the ER with chief complaint of left-sided pain intermittently for the past several weeks. Patient has a friend at bedside that is a good source of history. It was documented that patient had a respiratory rate of 28 initially during triage, patient is currently breathing very comfortably at 18 times a minute. Patient has no shortness of breath, no chest pain. She has no headache or neck pain. Patient is complaining of left shoulder pain this been intermittent but occurring daily since last 2 or 3 weeks. Patient did have a fall in a same level 3 to 4 weeks ago. Patient lives at a assisted living. Her lives a few doors down at the assisted living facility. Patient says that several weeks ago, she was standing up, she uses a walker for ambulation. Another individual came to hug her, had tripped on her walker, falling into the patient, and a patient fell down, also having FOOSH injury. Patient was seen in the ER several weeks ago. Patient stated that she did have rib pain/chest wall pain, she no longer does. Patient is having left shoulder pain. Patient feels like she has intermittent left-sided pain, but the only pain she has in the ER today is to her left shoulder. No strokelike signs or symptoms. Patient is able to move her left shoulder with mild discomfort with mild grimace to her face. No other falls, no new traumas compared to several weeks ago. No other acute complaints. [facility] Medical History Abdominal pain Arthritis Back pain Cardiology follow-up encounter Cervical cancer CLL (chronic lymphocytic leukemia) CML (chronic myelocytic leukemia) Constipation COPD (chronic obstructive pulmonary disease) Easy bruising Essential hypertension Former smoker Gastric reflux Gastritis History of bilateral breast cancer History of echocardiogram History of edema History of stress test Hoarseness Hx of small bowel obstruction Hypertension Intractable back pain Leg cramps Lumbar back pain Meniere disease Nonrheumatic mitral valve regurgitation Nonrheumatic tricuspid valve regurgitation On home oxygen therapy Pneumothorax Radicular pain of lower extremity Sciatica Thrush Weight loss Home Medications triamterene 37.5 mg-hydrochlorothiazide 25 mg tablet 1 tab PO DAILY bp 04/19/19 [History Last Taken 09/19/20] multivitamin 1 tab PO DAILY vitamin 09/20/20 [History Last Taken 02/11/21] alendronate 70 mg tablet 70 mg PO QWEEK 12/13/20 [History Last Taken Unknown] benzonatate 100 mg capsule 100 mg PO TID PRN Cough 12/13/20 [History Last Taken Unknown] ondansetron 4 mg disintegrating tablet 4 mg PO Q8H PRN nausea and vomiting #10 tabs 09/12/21 [Rx Last Taken Unknown] lidocaine 5 % topical patch (Lidoderm) 1 patch topical DAILY #15 ea 09/15/21 [Rx Last Taken Unknown] Ventolin HFA 90 mcg/actuation aerosol inhaler (albuterol sulfate) 2 puff inhalation Q4H PRN shortness of breath or wheezing #3 device 01/07/22 [Rx Last Taken Unknown] tiotropium bromide 18 mcg capsule with inhalation device 18 mcg inhalation DAILY copd #3 ea 01/07/22 [Rx Last Taken Unknown] meclizine 25 mg chewable tablet (Antivert) 25 mg PO BID PRN vertigo #20 tabs 04/15/22 [Rx Last Taken Unknown] fluticasone 232 mcg-salmeterol 14 mcg/actuation breath activated powdr (AirDuo RespiClick) 1 inh inhalation Q12H #1 ea 10/09/22 [Rx Last Taken Unknown] lidocaine 5 % topical patch (Lidoderm) 1 patch topical DAILY PRN pain #15 ea 11/18/22 [Rx Last Taken Unknown] meloxicam 7.5 mg tablet 7.5 mg PO DAILY #20 tabs 12/04/22 [Rx Last Taken Unknown] Allergy/AdvReac Type Severity Reaction Status Date / Time shellfish derived Allergy Severe Anaphylaxis Verified 12/04/22 13:34 bacitracin Allergy Rash Verified 12/04/22 13:34 codeine Allergy Rash Verified 12/04/22 13:34 latex Allergy IF PT USES Verified 12/04/22 13:34 LATEX GLOVES GETS RASH walnut Allergy Swelling Verified 12/04/22 13:34 amoxicillin [From Augmentin] AdvReac Mild Vomiting Verified 12/04/22 13:34 clavulanic acid AdvReac Mild Vomiting Verified 12/04/22 13:34 [From Augmentin] Family History Father Abdominal aortic aneurysm (AAA) Mother Alzheimers disease Surgical History History of bladder surgery History of breast reconstruction History of cataract surgery History of dilatation and curettage History of esophagogastroduodenoscopy (EGD) History of lung surgery History of mastectomy Hx of bilateral cataract extraction Hx of bilateral oophorectomy Hx of colonoscopy Hx of lymph node excision Social History household members: spouse number of children: 2 current occupational status: retired Smoking Status: Former smoker how long ago did patient quit smokin ppd since 20s, quiting ~ 15 years prior to current presentation. alcohol intake: current details: 4 glasses wine per week substance use type: does not use ROS ROS ED ROS Narrative REVIEW OF SYSTEMS: Unless otherwise stated in this report the patient's positive and negative responses for review of systems for constitutional, eyes, ENT, cardiovascular, respiratory, gastrointestinal, neurological, , musculoskeletal, and integument systems and related systems to the presenting problem are either stated in the history of present illness or were not pertinent or were negative for the symptoms and/or complaints related to the presenting medical problem. EXAM Physical Exam Narrative Exam Narrative: Vital signs reviewed and patient is not hypoxic. General: The patient appears well and in no apparent distress. Patient is resting comfortably on cart. Not toxic, lethargic, or listless. Skin: Warm, dry, no pallor noted. There is no rash noted. Head: Normocephalic, atraumatic, no midline or paracervical tenderness palpation. Full range of motion of cervical spine with difficulty. Eye: Normal conjunctiva, no drainage, EOMI. PERRL. Ears, Nose, Mouth, and Throat: oral mucosa is moist. Nares patent. Mouth without vesicles. Cardiovascular: Regular Rate and Rhythm, no murmurs, gallops, or rubs Respiratory: Patient is in no distress, no accessory muscle use, lungs are clear to auscultation, no wheezing, rales or rhonchi Back: non-tender, no CVA tenderness bilaterally to percussion. NO CTLS midline or paraspinal tenderness to palpation. GI: Soft, no tenderness to palpation, no masses appreciated. No rebound, guarding, or rigidity noted. Musculoskeletal: The patient has full range of motion of all extremities and joints with no difficulty except to the left shoulder. Patient has full flexion extension abduction with mild to moderate pain. She has moderate pain with abduction of the 45 degrees left shoulder, she has mild pain with flexion extension of left shoulder. Upper and lower extremities with no difficulty or pain. Patient has full range of motion of left lower extremity of her left hip, knee, ankle and foot with no difficulty or pain. Full range of motion of right No signs of fracture or dislocation. Patient has no motor, no sensory deficits. Neurological: A&O x4, normal speech, no focal neurological deficits. Psychiatric: Cooperative Const Vital Signs: 12/04/22 13:35 12/04/22 13:36 Temperature 98.1 F Temperature Source Temporal Pulse Rate 82 Respiratory Rate 28 H Respiratory Effort Normal Non-Labored Respiratory Pattern Normal Blood Pressure 122/72 H Blood Pressure Mean 88 Pulse Ox 95 Oxygen Delivery Method Room Air MDM MDM MDM Narrative Medical decision making narrative: Education was done at bedside. No signs for acute new imaging at this time. Patient has no pain to the anterior, lateral, posterior chest wall. Patient does have full range of motion of the left shoulder with mild to moderate pain. No indication for sling. No new recent trauma in the past 3 to 4 weeks. Patient may have underlying left shoulder injury. Patient was placed on Mobic, patient will follow-up with her orthopedic surgeon that she saw several weeks ago as well. Friend at bedside is very helpful with history, and follow-up. Patient friend at bedside will talk to patient's daughter as well to help secure orthopedic follow-up. Patient continues ice if needed. No questions at discharge. Patient was given her orthopedic surgeon, Dr. Cool for information as a backup. Patient does have an established orthopedic surgeon already. Discharge Plan Triage Chief Complaint: Other, Pain/Inj ED Provider: Sav Carter Dx/Rx/DC Orders Clinical Impression: Chronic left shoulder pain Instructions: The Shoulder Joint, ED Chronic Pain, ED Rotator Cuff Tear, ED RICE Prescriptions: New meloxicam 7.5 mg tablet 7.5 mg PO DAILY Qty: 20 0RF No Action tiotropium bromide 18 mcg capsule, w/inhalation device 18 mcg inhalation DAILY Qty: 3 3RF albuterol sulfate [Ventolin HFA] 90 mcg/actuation HFA aerosol inhaler 2 puff inhalation Q4H PRN (Reason: shortness of breath or wheezing) Qty: 3 3RF triamterene-hydrochlorothiazid 1 EACH tablet 1 tab PO DAILY multivitamin Tablet 1 tab PO DAILY alendronate 70 mg tablet 70 mg PO QWEEK Patient Comments: pt has not been taking benzonatate 100 mg Capsule 100 mg PO TID PRN (Reason: Cough) ondansetron 4 mg tablet,disintegrating 4 mg PO Q8H PRN (Reason: nausea and vomiting) Qty: 10 0RF lidocaine [Lidoderm] 5 % adhesive patch,medicated 1 patch topical DAILY Qty: 15 0RF Rx Instructions: leave on most painful area for up to 12 hrs meclizine [Antivert] 25 mg tablet,chewable 25 mg PO BID PRN (Reason: vertigo) Qty: 20 0RF lidocaine [Lidoderm] 5 % adhesive patch,medicated 1 patch topical DAILY PRN (Reason: pain) Qty: 15 0RF Rx Instructions: leave on most painful area for up to 12 hrs fluticasone propion-salmeterol [AirDuo RespiClick] 232-14 mcg/actuation aerosol powdr breath activated 1 inh inhalation Q12H Qty: 1 11RF Primary Care Provider: Donnell Tse Referrals: Gage Cool MD [Med Staff - Active Staff] - Donnell Tse MD [Primary Care Provider] - Activity Restrictions/Additional Instructions: Continue to use ice 20 minutes on, 20 minutes off. Follow-up with your orthopedic surgeon. Another orthopedic surgeon name and number has been given to you as discussed for a second option for left shoulder pain. You can take Tylenol with Mobic daily as well Disposition Disposition: Home, Self Care Discharge Date/Time: 12/04/22 15:43
== END 2022-12-04 15:43 | disposition home or self-care (01) ==
PROVIDERS: Emergency Provider Emergency Medicine; PCP Family Medicine; Visit Provider Emergency Medicine
DX: M25.512 Pain in left shoulder (principal); J44.9 Chronic obstructive pulmonary disease, unspecified; I10 Essential (primary) hypertension; Z87.891 Personal history of nicotine dependence; G89.29 Other chronic pain; Z99.81 Dependence on supplemental oxygen; Z79.899 Other long term (current) drug therapy; Z90.10 Acquired absence of unspecified breast and nipple
CPT/HCPCS: 99284

== ENCOUNTER → 2023-07-13 | Outpatient (REF) | payer MEDICARE, OTHER, SELFPAY ==
[2023-07-13 11:01] LABS: Color, Urine Straw (Yellow); Glucose, Dipstick Normal (Normal); Ketone-Dipstick Negative (Negative); Leukocyte Esterase-Dipstick Negative /ul (Negative); Nitrite-Dipstick Negative (Negative); Occult Blood-Urine Negative /ul (Negative); Protein-Dipstick Negative (Negative); Urine Bilirubin Dipstick Negative (Negative); Urine Clarity Clear (Clear); Urine Urobilinogen Normal (Normal); Urine pH 6.5 (5.0 - 8.0)
== END ==
LOC: OLS.WHLTSB 09:35
PROVIDERS: PCP Family Medicine
DX: R39.9 Unspecified symptoms and signs involving the genitourinary system (principal); G89.29 Other chronic pain
CPT/HCPCS: 81002; 87077; 87086; 87088; 87186

== ENCOUNTER → 2023-10-14 07:00 | Outpatient (REF) | payer MEDICARE, OTHER, SELFPAY ==
[2023-10-14 12:27] LABS: Mucous, Urine 0 SEEN /hpf (<or=2+); Red Blood Cells-Urine 0 SEEN /hpf (0-5); Squamous Epithelial Cells - UA 0 SEEN /hpf (5-10)
[2023-10-14 12:38] LABS: Color, Urine Yellow (Yellow); Glucose, Dipstick Normal (Normal); Ketone-Dipstick Negative (Negative); Leukocyte Esterase-Dipstick 25 /ul (Negative); Nitrite-Dipstick Positive (Negative); Occult Blood-Urine Negative /ul (Negative); Protein-Dipstick Negative (Negative); Urine Bilirubin Dipstick Negative (Negative); Urine Clarity Clear (Clear); Urine Urobilinogen Normal (Normal); Urine pH 6.5 (5.0 - 8.0)
[2023-10-14 12:51] LABS: Bacteria 4+ /hpf (None Seen); White Blood Cells 0-5 SEEN /hpf (0-5)
== END ==
LOC: OLS.WHLTSB 07:00
PROVIDERS: PCP Family Medicine
DX: N39.0 Urinary tract infection, site not specified (principal)
CPT/HCPCS: 81001; 87077; 87086; 87088; 87186

== ENCOUNTER → 2024-02-08 20:00 | Outpatient (REF) | payer MEDICARE, OTHER, SELFPAY ==
[2024-02-09 06:43] LABS: Mucous, Urine 0 SEEN /hpf (<or=2+)
[2024-02-09 06:59] LABS: Color, Urine Yellow (Yellow); Glucose, Dipstick Normal (Normal); Ketone-Dipstick Negative (Negative); Leukocyte Esterase-Dipstick 500 /ul (Negative); Nitrite-Dipstick Positive (Negative); Occult Blood-Urine 25 /ul (Negative); Protein-Dipstick 15 mg/dl (Negative); Specific Gravity, Urine 1.015 (1.002-1.030); Urine Bilirubin Dipstick Negative (Negative); Urine Clarity Cloudy (Clear); Urine Urobilinogen 4 mg/dl (Normal)
[2024-02-09 07:51] LABS: Bacteria 4+ /hpf (None Seen); Red Blood Cells-Urine 0-5 SEEN /hpf (0-5); Renal Epithelial Cells 0-5 SEEN /hpf (0-5); Squamous Epithelial Cells - UA 0-5 SEEN /hpf (5-10); White Blood Cells 25-50 SEEN /hpf (0-5)
== END ==
LOC: OLS.WHLTSB 20:00
PROVIDERS: PCP Family Medicine
DX: N39.0 Urinary tract infection, site not specified (principal)
CPT/HCPCS: 81001; 87077; 87086; 87088; 87186

== ENCOUNTER → 2024-02-18 20:00 | Outpatient (REF) | payer MEDICARE, OTHER, SELFPAY ==
[2024-02-19 09:32] LABS: Glucose, Dipstick Normal (Normal); Ketone-Dipstick Negative (Negative); Leukocyte Esterase-Dipstick 500 /ul (Negative); Nitrite-Dipstick Positive (Negative); Occult Blood-Urine Negative /ul (Negative); Protein-Dipstick Negative (Negative); Specific Gravity, Urine 1.015 (1.002-1.030); Urine Bilirubin Dipstick Negative (Negative); Urine Urobilinogen Normal (Normal)
[2024-02-19 09:40] LABS: Color, Urine Yellow (Yellow)
[2024-02-19 09:41] LABS: Urine Clarity Clear (Clear)
== END ==
LOC: OLS.WHLCAR 20:00
PROVIDERS: PCP Family Medicine
DX: N39.0 Urinary tract infection, site not specified (principal)
CPT/HCPCS: 81002; 87086; 87088; 87186

== ENCOUNTER → 2024-03-14 11:00 | Outpatient (REF) | payer MEDICARE, OTHER, SELFPAY | LOC: OLS.WHLTSB 11:00 | PROVIDERS: PCP Family Medicine | DX: J44.9 Chronic obstructive pulmonary disease, unspecified (principal); J06.9 Acute upper respiratory infection, unspecified; N39.0 Urinary tract infection, site not specified; B37.0 Candidal stomatitis; H04.123 Dry eye syndrome of bilateral lacrimal glands | CPT/HCPCS: 87449 ==

== ENCOUNTER 2024-08-22 16:32 | Inpatient (IN) | payer MEDICARE, OTHER, SELFPAY ==
[2024-08-22] VITALS (18 sets, daily range): BP systolic 121–177; BP diastolic 73–107; PULSE 71–93; RESP 17–28; TEMP 36.2–37.2; O2SAT 89–100; BMI 17.4; BMI 16.7
--- NOTE | 2024-08-22 17:17 | RAD_ITS ---
PROCEDURE: CHEST PA AND LATERAL 08/22/2024 REASON FOR EXAM: SHORTNESS OF BREATH, COUGH TECHNIQUE: CHEST PA AND LATERAL COMPARISON: 11/18/2022 FINDINGS: Overlying dense breasts limits evaluation of underlying bilateral lower lobes. Focal consolidations within the bilateral lower lobes not excluded. No significant pleural effusion. No pneumothorax. Hyperinflated lungs may reflect COPD. Cardiac silhouette is unchanged. No acute fractures. RAD/Chest PA and Lateral IMPRESSION: Overlying dense breasts limits evaluation of underlying bilateral lower lobes. Focal consolidations within the bilateral lower lobes not excluded. Hyperinflated lungs may reflect COPD. Reading Location: [id number]
--- NOTE | 2024-08-22 17:23 | ED.VIS.DYS ---
HPI History of Present Illness Chief Complaint: Shortness of Breath Narrative Narrative: Chief complaint and HPI: Shortness of breath. 84-year-old female with past medical history of COPD, HTN, M?ni?re's disease presents for evaluation of shortness of breath and cough. History taken by patient as well as family member in the room. Family member in the room states that the patient resides at a care facility. States that she has been endorsing some shortness of breath, cough, URI symptoms for the past several days. Went to an urgent care today and found to have an oxygen saturation of 88% and patient was sent to the emergency department. Patient states she does not wear oxygen at baseline however does wear chronic oxygen at night, approximately 3 L. Denies any chest pain, abdominal pain, nausea, vomiting. Review of systems: See HPI Medications: As listed on the chart Allergies: As listed on the chart PFSH: Per chart Vital signs: As listed on the chart. Reviewed. Physical exam: Gen: A&O x3, NAD Head: Normocephalic, atraumatic Eyes: No sclera icterus, conjunctiva clear ENT: Moist mucous membranes Neck: Trachea midline, No JVD CV: RRR, no murmurs, no peripheral edema Resp: Diminished in the bilateral bases, mildly coarse, expiratory wheezing, on 2 L nasal cannula GI: Abd soft, non-distended, non-tender, no r/r/g Musc: Full ROM, no deformity Skin: Warm, dry Neuro: Alert, oriented, grossly intact, sensation intact Psych: Cooperative, appropriate mood and affect [facility] Medical History Intractable back pain Sciatica Radicular pain of lower extremity Lumbar back pain Thrush Hx of small bowel obstruction Gastritis Constipation Arthritis Easy bruising Back pain Gastric reflux Former smoker On home oxygen therapy Hoarseness Leg cramps History of edema Hypertension Cardiology follow-up encounter History of stress test History of echocardiogram Abdominal pain Meniere disease Essential hypertension History of bilateral breast cancer Cervical cancer Nonrheumatic tricuspid valve regurgitation Nonrheumatic mitral valve regurgitation Pneumothorax CML (chronic myelocytic leukemia) Weight loss COPD (chronic obstructive pulmonary disease) CLL (chronic lymphocytic leukemia) Home Medications ?Medication ?Instructions ?Recorded ?Last Taken ?Type triamterene 37.5 1 tab PO DAILY bp 04/19/19 08/22/24 History mg-hydrochlorothiazide 25 mg tablet meclizine 25 mg chewable tablet 25 mg PO BID PRN vertigo #20 tabs 04/15/22 08/22/24 Rx (Antivert) Ventolin HFA 90 mcg/actuation 2 puff inhalation Q4H PRN 01/12/24 Unknown Rx aerosol inhaler (albuterol sulfate) shortness of breath or wheezing #3 device acetaminophen 325 mg capsule 650 mg PO Q4H PRN pain 01/12/24 Unknown History fluticasone 232 mcg-salmeterol 14 1 inh inhalation Q12H copd #1 ea 01/12/24 08/22/24 Rx mcg/actuation breath activated powdr (AirDuo RespiClick) rivastigmine tartrate 1.5 mg 1.5 mg PO BID memory 01/12/24 08/22/24 History capsule tiotropium bromide 18 mcg capsule 18 mcg inhalation DAILY copd #3 ea 01/12/24 08/22/24 Rx with inhalation device Allergy/AdvReac Type Severity Reaction Status Date / Time shellfish derived Allergy Severe Anaphylaxis Verified 08/22/24 16:36 bacitracin Allergy Rash Verified 08/22/24 16:36 codeine Allergy Rash Verified 08/22/24 16:36 latex Allergy IF PT USES Verified 08/22/24 16:36 LATEX GLOVES GETS RASH walnut Allergy Swelling Verified 08/22/24 16:36 amoxicillin (From Augmentin) AdvReac Mild Vomiting Verified 08/22/24 16:36 clavulanic acid (From AdvReac Mild Vomiting Verified 08/22/24 16:36 Augmentin) Family History Father Abdominal aortic aneurysm (AAA) Mother Alzheimers disease Surgical History History of esophagogastroduodenoscopy (EGD) Hx of bilateral cataract extraction Hx of lymph node excision Hx of bilateral oophorectomy Hx of colonoscopy History of dilatation and curettage History of lung surgery History of bladder surgery History of cataract surgery History of breast reconstruction History of mastectomy Social History household members: spouse number of children: 2 current occupational status: retired Smoking Status: Former smoker quit date: 02/22/94 how long ago did patient quit smokin ppd since 20s alcohol intake: current alcohol intake frequency: holidays/special occasions only Alcohol type: wine details: 4 glasses wine per week substance use type: does not use EXAM Physical Exam Const Vital Signs: 08/22/24 16:32 08/22/24 16:34 08/22/24 17:02 Temperature 97.5 F L 97.4 F L Temperature Source Oral Oral Oral Pulse Rate 83 82 80 Respiratory Rate 24 H 24 H 28 H Respiratory Effort Respiratory Depth Respiratory Pattern Blood Pressure 132/89 H 132/89 H 136/101 H Blood Pressure Mean 103 103 112 Pulse Ox 89 89 99 Oxygen Delivery Method Room Air Room Air Nasal Cannula Oxygen Flow Rate (L/min) 2 08/22/24 17:08 08/22/24 17:17 08/22/24 17:30 Temperature Temperature Source Pulse Rate 77 Respiratory Rate 18 Respiratory Effort Short of Breath Respiratory Depth Deep Respiratory Pattern Tachypnea Blood Pressure 121/107 H Blood Pressure Mean 111 Pulse Ox 100 97 Oxygen Delivery Method Nasal Cannula Nasal Cannula Room Air Oxygen Flow Rate (L/min) 2 2 08/22/24 17:34 08/22/24 17:34 08/22/24 17:41 Temperature 98.6 F 98.3 F Temperature Source Oral Oral Pulse Rate 71 93 73 Respiratory Rate 28 H 17 23 H Respiratory Effort Respiratory Depth Respiratory Pattern Tachypnea Blood Pressure 138/102 H 137/93 H Blood Pressure Mean 114 107 Pulse Ox 98 97 Oxygen Delivery Method Nasal Cannula Room Air Oxygen Flow Rate (L/min) 2 08/22/24 18:00 08/22/24 19:15 08/22/24 19:27 Temperature 98.6 F 99 F Temperature Source Oral Oral Pulse Rate 73 84 75 Respiratory Rate 28 H 26 H 18 Respiratory Effort Respiratory Depth Respiratory Pattern Blood Pressure 151/73 H 131/85 H 131/85 H Blood Pressure Mean 99 100 100 Pulse Ox 99 90 91 Oxygen Delivery Method Nasal Cannula Room Air Room Air Oxygen Flow Rate (L/min) 2 08/22/24 19:40 08/22/24 20:00 08/22/24 20:30 Temperature 98.7 F Temperature Source Pulse Rate 77 87 71 Respiratory Rate 20 H 24 H 22 H Respiratory Effort Respiratory Depth Respiratory Pattern Normal Blood Pressure 135/80 H 177/96 H Blood Pressure Mean 98 123 Pulse Ox 97 93 Oxygen Delivery Method Nasal Cannula Oxygen Flow Rate (L/min) 2 08/22/24 21:00 08/22/24 22:00 Temperature 98.8 F 98.8 F Temperature Source Oral Oral Pulse Rate 88 81 Respiratory Rate 22 H 24 H Respiratory Effort Respiratory Depth Respiratory Pattern Blood Pressure 124/93 H 121/88 H Blood Pressure Mean 103 99 Pulse Ox 90 98 Oxygen Delivery Method Room Air Nasal Cannula Oxygen Flow Rate (L/min) 2 MDM MDM MDM Narrative Medical decision making narrative: 84-year-old female with past medical history of COPD, HTN, M?ni?re's disease presents for evaluation of shortness of breath and cough. History taken by patient as well as family member in the room. See HPI. Associated symptoms are URI symptoms. Was found to be 80% on room air at urgent care and sent to the emergency department. Was 89% on room air here. Currently on 2 L nasal cannula. Wears chronic oxygen at night approximately 3 L. Differential diagnosis includes but is not limited to COPD exacerbation, viral illness, pneumonia. 500 cc NS bolus, DuoNebs, Solu-Medrol ordered for symptoms. Laboratory workup ordered including chest x-ray. CBC with leukocytosis of 15.2 however this appears to be her baseline with history of CML. No anemia. Patient has thrombocytopenia at 127. Previous labs are from 2022. VBG without acidosis or hypercapnia. BMP with baseline elevated BUN. No ARIANA. Lactic acid unremarkable. Chest x-ray was personally reviewed and interpreted by me, ED physician. No obvious consolidation, effusion, pneumothorax, cardiomegaly. Radiology in agreement. Overlying does breast limits evaluation of bilateral lower lobes, focal consolidations within the bilateral lower lobes not excluded. Findings consistent with COPD. On reevaluation, patient still has diffuse expiratory wheezing. She is still tachypneic. Still requiring 2 L nasal cannula. Although she does have oxygen available at the care facility and my concern is for her symptoms and tachypnea. I think that she would benefit from admission for continued DuoNebs. She confirmed understanding the plan. Will give Levaquin to help with COPD exacerbation. Patient was discussed with Dr. Pope accepted admission. Impression: 1. COPD exacerbation Lab Data Labs: Laboratory Results - last 24 hr 08/22/24 17:35 WBC 15.2 H RBC 4.97 Hgb 14.5 Hct 42.9 MCV 86.3 MCH 29.2 MCHC 33.8 RDW Std Deviation 45.6 H RDW Coeff of [place] 14.4 Plt Count 127 L MPV 12.6 H Immature Gran % (Auto) 0.500 Neut % (Auto) 64.4 Lymph % (Auto) 25.4 [place] % (Auto) 8.3 Eos % (Auto) 1.0 Baso % (Auto) 0.4 Absolute Neuts (auto) 9.8 H Absolute Lymphs (auto) 3.85 Nucleated RBC % 0 Sodium 133 Potassium 4.1 Chloride 94 L Carbon Dioxide 25.2 Anion Gap 14 BUN 31 H Creatinine 0.76 Estim Creat Clear Calc 35.86 L Est GFR (MDRD) Non-Af 79 BUN/Creatinine Ratio 40.5 H Glucose 118 H Lactic Acid 1.4 Calcium 8.6 Magnesium 1.7 ABG Data ABG results: ABG 08/22/24 17:55 Specimen Type NAHOMY Sample Site Not entered VBG pH 7.52 H VBG pO2 36 VBG HCO3 27 H VBG Total CO2 28 VBG O2 Sat (Calc) 76 H VBG Base Excess 4 H POC Mix VBG pCO2 Pt Tmp 33.0 L O2 Delivery Device Room Air Radiography Diagnostic Testing: Clinical Impression(s) from Imaging Studies Chest X-Ray 08/22/24 17:17 IMPRESSION: Overlying dense breasts limits evaluation of underlying bilateral lower lobes. Focal consolidations within the bilateral lower lobes not excluded. Hyperinflated lungs may reflect COPD. Reading Location: [facility] Discharge Plan Triage Chief Complaint: Shortness of Breath ED Provider: Juno Cruz Dx/Rx/DC Orders Clinical Impression: COPD exacerbation Primary Care Provider: Donnell Tse Disposition Disposition: Home, Self Care Discharge Date/Time: 08/22/24 22:34
[2024-08-22] MEDS: 0.9% Normal Saline (500mL Bag) 500 ML 999 ML IV (17:31)
[2024-08-22 17:48] LABS: Hematocrit 42.9 % (37-47); Hemoglobin 14.5 g/dL (12.0-15.0); Immature Granulocytes Count 0.070 X10^3/uL (0.0-0.0); Mean Corp Hgb Conc 33.8 g/dL (32-36); Mean Corpuscular Volume 86.3 fL (81-99); Mean Platelet Vol. 12.6 fl (6.2-12.0); NRBC Flagged by Analyzer 0 % (0-5); Platelet Count 127 K/mm3 (150-450); RBC Distribution Width CV 14.4 % (11.6-14.6); RBC Distribution Width SD 45.6 fl (35.1-43.9); Red Blood Count 4.97 M/mm3 (4.2-5.4); White Blood Count 15.2 K/mm3 (4.4-11.0)
[2024-08-22 18:00] LABS: SITE Not entered; VBG BASE EXCESS 4 mmol/L (-1.0-3.5); VBG PO2 36 mmHg (25-40); VBG SO2 76 % (50-70); VBG TCO2 28 mmol/L (23-33)
[2024-08-22 18:10] LABS: Anion Gap 14 (5-15); BUN 31 mg/dL (4-19); BUN/Creat Ratio 40.5 RATIO (10-20); Calcium,Total 8.6 mg/dL (7.6-11.0); Carbon Dioxide 25.2 mmol/L (21.0-32.0); Chloride 94 mmol/L (98-108); Estimated Creatinine Clearance 35.86 ml/min (50-250); Glucose 118 mg/dL (70-99); Potassium 4.1 mmol/L (3.3-5.1)
[2024-08-22] MEDS: levoFLOXacin IV 750 MG/150 ML BAG 100 MG IV (20:00)
--- NOTE | 2024-08-22 21:41 | HP.PCM.HOS_ITS ---
[facility] - General General Date of Admission: 08/22/24 Date of Service: 08/22/24 Chief Complaint: SOB and Cough. 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 Ms. Penaloza reports her symptoms began approximately 3-4 days prior to admission with a gradual-onset of dyspnea on exertion that progressed to shortness of breath at rest. She also admits to URI symptoms with nonproductive cough and wheezing. She then went to an urgent care earlier today and was found to have an oxygen saturation of 88% on room air and was sent directly to the emergency department for further evaluation and treatment. She states her symptoms are similar to her previous AE COPD. She denies associated fever, chills, chest pain, palpitations, heart racing, lower extremity edema, abdominal pain, nausea, vomiting, diarrhea, headache or rash. In the ER she was noted to have clinical evidence of AE COPD with laboratory evidence of Leukocytosis of 15.2 K present on admission with a CXR that revealed overlying dense breast limits evaluation of underlying lower lobes with hyperinflated lungs that may reflect COPD with a corresponding VBG that revealed pH 7.52/ total CO2 28 mmol/L/ PaO2 36 mmHg/ HCO3 27 mmol/L at 76% on RA consistent with Acute-on Chronic Respiratory Insufficiency and she was then admitted to the PCU for ongoing care for stay that is expected to extend beyond 2 midnights. [facility] Medical History Intractable back pain Sciatica Radicular pain of lower extremity Lumbar back pain Thrush Hx of small bowel obstruction Gastritis Constipation Arthritis Easy bruising Back pain Gastric reflux Former smoker On home oxygen therapy Hoarseness Leg cramps History of edema Hypertension Cardiology follow-up encounter History of stress test History of echocardiogram Abdominal pain Meniere disease Essential hypertension History of bilateral breast cancer Cervical cancer Nonrheumatic tricuspid valve regurgitation Nonrheumatic mitral valve regurgitation Pneumothorax CML (chronic myelocytic leukemia) Weight loss COPD (chronic obstructive pulmonary disease) CLL (chronic lymphocytic leukemia) Home Medications ?Medication ?Instructions ?Recorded ?Last Taken ?Type triamterene 37.5 1 tab PO DAILY bp 04/19/19 0 08/22/24 History mg-hydrochlorothiazide 25 mg tablet meclizine 25 mg chewable tablet 25 mg PO BID PRN verti go #20 tabs 04/15/22 08/22/24 Rx (Antivert) Ventolin HFA 90 mcg/actuation 2 puff inhalation Q4H MN N 01/12/24 Unknown Rx aerosol inhaler (albuterol sulfate) shortness of breat h or wheezing #3 device acetaminophen 325 mg capsule 650 mg PO Q4H PRN pain Unknown History fluticasone 232 mcg-salmeterol 14 1 inh inhalation Q12 H copd #1 ea 01/12/24 08/22/24 Rx mcg/actuation breath activated powdr (AirDuo RespiClick) rivastigmine tartrate 1.5 mg 1.5 mg PO BID memory 12/2408/22/24 History capsule tiotropium bromide 18 mcg capsule 18 mcg inhalation DA JUDE copd #3 ea 01/12/24 08/22/24 Rx with inhalation device Allergy/AdvReac Type Severity Reaction Status Date / Time shellfish derived Allergy Severe Anaphylaxis Verified 08/22/24 16:36 bacitracin Allergy Rash Verified 08/22/24 16:36 codeine Allergy Rash Verified 08/22/24 16:36 latex Allergy IF PT USES Verified 08/22/24 16:36 LATEX GLOVES GETS RASH walnut Allergy Swelling Verified 08/22/24 16:36 amoxicillin (From Augmentin) AdvReac Mild Vomiting Verified 08/22/24 16:36 clavulanic acid (From AdvReac Mild Vomiting Verified 08/22/24 16:36 Augmentin) Family History Father Abdominal aortic aneurysm (AAA) Mother Alzheimers disease Surgical History History of esophagogastroduodenoscopy (EGD) Hx of bilateral cataract extraction Hx of lymph node excision Hx of bilateral oophorectomy Hx of colonoscopy History of dilatation and curettage History of lung surgery History of bladder surgery History of cataract surgery History of breast reconstruction History of mastectomy Social History household members: spouse number of children: 2 current occupational status: retired Smoking Status: Former smoker quit date: 02/22/94 how long ago did patient quit smokin ppd since 20s alcohol intake: current alcohol intake frequency: holidays/special occasions only Alcohol type: wine details: 4 glasses wine per week substance use type: does not use Vital Signs Vital Signs Vital Signs: 08/22/24 16:32 08/22/24 16:34 08/22/24 17:02 Temperature 97.5 F L 97.4 F L Temperature Source Oral Oral Oral Pulse Rate 83 82 80 Respiratory Rate 24 H 24 H 28 H Respiratory Effort Respiratory Depth Respiratory Pattern Blood Pressure 132/89 H 132/89 H 136/101 H Blood Pressure Mean 103 103 112 Pulse Ox 89 89 99 Oxygen Delivery Method Room Air Room Air Nasal Cannula Oxygen Flow Rate (L/min) 2 08/22/24 17:08 08/22/24 17:17 08/22/24 17:30 Temperature Temperature Source Pulse Rate 77 Respiratory Rate 18 Respiratory Effort Short of Breath Respiratory Depth Deep Respiratory Pattern Tachypnea Blood Pressure 121/107 H Blood Pressure Mean 111 Pulse Ox 100 97 Oxygen Delivery Method Nasal Cannula Nasal Cannula Room Air Oxygen Flow Rate (L/min) 2 2 08/22/24 17:34 08/22/24 17:34 08/22/24 17:41 Temperature 98.6 F 98.3 F Temperature Source Oral Oral Pulse Rate 71 93 73 Respiratory Rate 28 H 17 23 H Respiratory Effort Respiratory Depth Respiratory Pattern Tachypnea Blood Pressure 138/102 H 137/93 H Blood Pressure Mean 114 107 Pulse Ox 98 97 Oxygen Delivery Method Nasal Cannula Room Air Oxygen Flow Rate (L/min) 2 08/22/24 18:00 08/22/24 19:15 08/22/24 19:27 Temperature 98.6 F 99 F Temperature Source Oral Oral Pulse Rate 73 84 75 Respiratory Rate 28 H 26 H 18 Respiratory Effort Respiratory Depth Respiratory Pattern Blood Pressure 151/73 H 131/85 H 131/85 H Blood Pressure Mean 99 100 100 Pulse Ox 99 90 91 Oxygen Delivery Method Nasal Cannula Room Air Room Air Oxygen Flow Rate (L/min) 2 08/22/24 19:40 08/22/24 20:00 08/22/24 20:30 Temperature 98.7 F Temperature Source Pulse Rate 77 87 71 Respiratory Rate 20 H 24 H 22 H Respiratory Effort Respiratory Depth Respiratory Pattern Normal Blood Pressure 135/80 H 177/96 H Blood Pressure Mean 98 123 Pulse Ox 97 93 Oxygen Delivery Method Nasal Cannula Oxygen Flow Rate (L/min) 2 08/22/24 21:00 Temperature 98.8 F Temperature Source Oral Pulse Rate 88 Respiratory Rate 22 H Respiratory Effort Respiratory Depth Respiratory Pattern Blood Pressure 124/93 H Blood Pressure Mean 103 Pulse Ox 90 Oxygen Delivery Method Room Air Oxygen Flow Rate (L/min) Weight Weight: 92 lb 5.979 oz Body Mass Index (BMI) 17.4 Physical Exam Const alert and oriented x3 Constitutional Narrative: Mild distress noted with frail, 'pink puffer' phenotype. General Appearance: cooperative HEENT normocephalic, head/scalp atraumatic, hearing grossly normal bilaterally and moist oral mucous membranes Eyes PERRL, EOMs intact bilaterally and conjunctivae normal Neck no lymphadenopathy and supple Resp Resp Narrative: Diminished breath sounds throughout with diffuse expiratory wheezing. Auscultation: wheezes Cardio regular rate and regular rhythm GI normal to inspection, nondistended, normoactive bowel sounds, soft to palpation, non-tender and non-distended Extremity normal to inspection, full ROM and no clubbing, cyanosis or edema Skin Skin Narrative: No evidence of rash, abscess, wounds or jaundice. Neuro oriented x3, CN's II-XII intact bilaterally, moves all extremities and no focal motor deficits Sensorium / Orientation: awake, alert, oriented to person, oriented to place and oriented to time Speech: speech normal Psych Psych Narrative: Patient was noted to be anxious on 2L NC and requesting trial of BiPAP due to fatigue. Mood & Affect: anxious Results Medical Records Data Attestation: I reviewed the patient's medical records Lab / Micro Data Attestation: I reviewed the patient's lab results. 08/22/24 17:35 08/22/24 17:35 Labs: Laboratory Results - last 24 hr 08/22/24 17:35: WBC 15.2 H, RBC 4.97, Hgb 14.5, Hct 42.9, MCV 86.3, MCH 29.2, MCHC 33.8, RDW Std Deviation 45.6 H, RDW Coeff of Anderson 14.4, Plt Count 127 L, MPV 12.6 H, Immature Gran % (Auto) 0.500, Neut % (Auto) 64.4, Lymph % (Auto) 25.4, [place] % (Auto) 8.3, Eos % (Auto) 1.0, Baso % (Auto) 0.4, Absolute Neuts (auto) 9.8 H, Absolute Lymphs (auto) 3.85, Nucleated RBC % 0, Sodium 133, Potassium 4.1, Chloride 94 L, Carbon Dioxide 25.2, Anion Gap 14, BUN 31 H, Creatinine 0.76, Estim Creat Clear Calc 35.86 L, Est GFR (MDRD) Non-Af 79, BUN/Creatinine Ratio 40.5 H, Glucose 118 H, Lactic Acid 1.4, Calcium 8.6 Micro: Microbiology 08/22/24 17:38 Mucosa - Nose SARS-CoV-2, Influenza & RSV (PCR) - Final ABG Data ABG results: ABG 08/22/24 17:55 Specimen Type NAHOMY Sample Site Not entered VBG pH 7.52 H VBG pO2 36 VBG HCO3 27 H VBG Total CO2 28 VBG O2 Sat (Calc) 76 H VBG Base Excess 4 H POC Mix VBG pCO2 Pt Tmp 33.0 L O2 Delivery Device Room Air Imaging Radiology Impression Chest X-Ray 08/22/24 17:17 IMPRESSION: Overlying dense breasts limits evaluation of underlying bilateral lower lobes. Focal consolidations within the bilateral lower lobes not excluded. Hyperinflated lungs may reflect COPD. Reading Location: [id number] Imaging Services [address] [place] [id number] Chest without Contrast MR#: [id number] Acct: [id number] Name: EM PENALOZA Rep #: [id number] : 1940 F 84 From: Ankur Souza MD PCP: Dr. Donnell Tse MD Status: ADM IN Study: Chest without Contrast Date of Exam: 08/22/24 Exam# [id number] Ordering Dr: Naeem Barnett DO PROCEDURE: CHEST WITHOUT CONTRAST 08/22/2024 REASON FOR EXAM: CXR OBSCURED BY BREAST TISSUE. QUESTIONABLE PNA. TECHNIQUE: Chest CT without contrast. Coronal and Sagittal reconstruction series were provided. One or more dose reduction techniques were used (e.g., Automated exposure control, adjustment of the mA and/or kV according to patient size, use of iterative reconstruction technique RADIATION DOSE SUMMARY: CTDlvol: 6 mGy DLP: 231 mGycm COMPARISON: CT 11/18/2022 FINDINGS: Small tracheal secretions. Small right lower lobe secretions within a dilated bronchial, series 4 images 90/93. Otherwise patent central airways. Severe emphysema. Bilateral linear scar/atelectasis. No effusion or pneumothorax. On the left, there is small posterior lower lobe nodular lung densities, series 4, image 91, possibly infectious. On the right, series 4, image 67, stable 12 mm pleural-based oval-shaped density consistent with benign etiology. Series 601, image 116, interval development of a lower lobe spiculated density measuring approximately 5 x 8 mm, pleural-based and favoring scarring. Unremarkable base of neck and axilla. Thoracic spine degeneration. Normal esophagus. Normal heart size. No acute vascular findings. No acute abdominal wall findings. Diffuse hepatic steatosis. Liver cyst. CT/Chest without Contrast IMPRESSION: In the posterior aspect of the left lower lobe, there is a small area of nodular densities possibly infectious in etiology. In the posterior right lower lobe, there is a pleural-based spiculated density, not present previously, favoring scarring. Lung nodule not excluded. Recommend three-month follow up imaging. Reading Location: [place] [id number] CC: Dr. Naeem Barnett DO; Dr. Donnell Tse MD ~ Senior Research Manager: Signed Assessment & Plan Assessment/Plan (1) COPD exacerbation: (2) Pneumonia: QUALIFIERS: Pneumonia type: due to unspecified organism L aterality: left Lung location: lower lobe of lung Qualified Code(s): J18.9 - Pneumonia, unspecified organism (3) Leukocytosis: QUALIFIERS: Leukocytosis type: unspecified Qualified Code(s): D 72.829 - Elevated white blood cell count, unspecified (4) Acute respiratory failure: QUALIFIERS: Respiratory failure complication: hypoxia Qualified Code(s): J96.01 - Acute respiratory failure with hypoxia (5) Nonrheumatic mitral valve regurgitation: (6) Nonrheumatic tricuspid valve regurgitation: (7) Essential hypertension: PLAN: Plan 1. AE COPD with laboratory evidence of Leukocytosis of 15.2 K present on admission with a CXR that revealed overlying dense breast limits evaluation of underlying lower lobes with hyperinflated lungs that may reflect COPD and with subsequent CT scan of the chest without contrast that revealed small area of nodular densities in the posterior aspect of the Left lower lobe possibly infectious in etiology consistent with suspected early Pneumonia - Admit to general medical floor. Continue IV methylprednisolone twice daily plus start empiric IV doxycycline. Check urinary antigens to Streptococcus pneumonia and Legionella. Give scheduled and as needed nebulizers and inhalers. Give acetaminophen as needed for cset-bh-[id number] (level 1-5/10) pain or fever. Give morphine IV as needed for severe (level 6-10/10) pain. 2. Acute Respiratory Failure; with patient eventually started on BiPAP due to #1 - Patient could not tolerate BiPAP. Wean supplemental oxygen as tolerated. 3. History of nonrheumatic mitral/tricuspid valve regurgitation adding to the medical complexity of #1 & #2 - Check echocardiogram this admission to see if her valvular disease is and/or playing a role in her illness. 4. Essential hypertension; on triamterene-hydrochlorothiazide - Maintain home regimen plus give prn IV hydralazine for systolic blood pressure >160 mmHg. 5. History of pneumothorax - Noted. 6. History of CML - Noted. 7. History of M?ni?re's disease; on as needed meclizine twice daily - Maintain present therapy. 8. Mild cognitive impairment; on rivastigmine twice daily - Continue rivastigmine as previous. 9. History of influenza - Noted with recent URI. Viral panel pending. 10. Seasonal allergies; on loratadine - Continue daily loratadine. 11. History of small bowel obstruction - Noted. 12. History of breast cancer; s/p bilateral mastectomy (1982) with breast reconstruction (2016) - Noted. 13. History of cervical cancer - Noted. 14. Chronic constipation - Give laxatives prn. 15. History of thrush; on oral fluconazole - Maintain to complete course of therapy. 16. OA; with history of cervicalgia and Left shoulder pain - Give acetaminophen prn as outlined in #1. 17. DVT/GI prophylaxis - Enoxaparin 40 mg sq daily plus SCD's. Give pantoprazole 40 mg daily in light of high-dose steroids for #1. Total time: Approximately (but not less than) 55 minutes. Charges/Coding Visit Charges Inpatient E&M: 26288 Init Hosp L2
--- OUTSIDE RECORDS SUMMARY | 2024-08-22 23:11 | XMS RPT_ITS | CCD ---
Author Organization [facility] Care Team Providers Care Timber Cruiser Name Role Phone Suzi RN, Thao Oakes Unavailable [phone] Suzi RN, Thao Oakes Unavailable [phone] Suzi RN, Thao Oakes Unavailable [phone] Marcela More Unavailable Unavailable Suzi RN, Thao Oakes Unavailable [phone] Suzi RN, Thao Oakes Unavailable [phone] Donnell Dooley MD Primary Care Provider Dennis Mendosa Unavailable Dr. Donnell Dooley Primary Care Provider Dr. Donnell Dooley Referring Provider Emmy DRAPERY COUNSELOR, DRAPERY COUNSELOR-C Lashanda Sr Attending Provider Dr. Conrad Antunez Attending Provider Chey CROCKER, DRAPERY COUNSELOR-C oKri Attending Provider Unav ailable Donnell Dooley MD Primary Care Provider Dennis Mendosa Unavailable Donnell Dooley MD Primary Care Provider Dennis Mendosa Unavailable Donnell Dooley MD Primary Care Provider Dennis Mendosa Unavailable Dr. Donnell Dooley Primary Care Provider Dr. Donnell Dooley Referring Provider Rickie DRAPERY COUNSELOR, DRAPERY COUNSELOR-C Sheba Attending Provider DONNELL DOOLEY Primary Care Unavailable DANIKA HELMS Attending Unavailable DANIKA HELMS Admitting Unavailable Dr. Donnell Dooley Primary Care Provider Soumya, Dr. Jacobo Referring Provider Dr. Conrad Antunez Attending Provider [phone] Cornelius SNOW, Margarito Unavailable BHARATIDALLAS Referring Unavailable SOUMYA, DONNELL Maldonado Primary Care Unavailable Inez Donnell SNOW Primary Care Provider Haagen DRIER HELPER.MARKER MACHINE, Morelia Unavailable Suppan DRIER HELPER.MARKER MACHINE, Amber A Unavailable Suppan DRIER HELPER.MARKER MACHINE, Amber A Unavailable Suppan DRIER HELPER.MARKER MACHINE, Amber A Unavailable [phone] Sheba Damian Attending Unavailable Soumya, Donnell Referring Unavailable Soumya, Donnell Primary Care Unavailable Soumya OLS, Donnell Attending Unavailable Inez, Donnlel Primary Care Unavailable Soumya OLS, Donnell Attending Unavailable Inez, Donnell Primary Care Unavailable Soumya, Donnell Primary Care Unavailable Soumya OLS, Donnell Attending Unavailable Inez, Donnell Primary Care Unavailable Soumya OLS, Donnell Attending Unavailable Inez OLS, Donnell Attending Unavailable Inez, Donnell Primary Care Unavailable SOUMYA, DONNELL J Primary Care Unavailable DANIKA HELMS Attending Unavailable SOUMYA, DONNELL J Primary Care Unavailable TESTDANIKA ELIAS Referring Unavailable SOUMYA, DONNELL J Primary Care Unavailable SOUMYA, DONNELL Maldonado Attending Unavailable HAAGEN, MORELIA Attending Unavailable SOUMYA, DONNELL J Primary Care Unavailable HAAGEN, MORELIA Referring Unavailable SOUMYA, DONNELL J Primary Care Unavailable HAAGEN, MORELIA Referring Unavailable SOUMYA, DONNELL J Primary Care Unavailable SOUMYA, DONNELL J Primary Care Unavailable SOUMYA, DONNELL J Referring Unavailable SOUMYA, DONNELL J Primary Care Unavailable SOUMYA, DONNELL J Primary Care Unavailable SOUMYA, DONNELL Maldonado Attending Unavailable Soumya , Dr. Jacobo Primary Care Provider [phone] Dr. Juno Cruz DO Emergency Provider Dr. Naeem Barnett DO Admit Provider Unavail able Barnett DO, Dr. Hartley Attending Provider Unav ailable Allergies Allergy Classification Reported Allergen(s) Allergy Type Date of Onset Reaction(s) Facility Amoxicillin / Clavulanate (3 sources) Amoxicillin / Clavulanate Drug Allergy 8 Vomiting [facility] Work Phone: Bacitracin (3 sources) Bacitracin Drug Allergy 7 Itching [facility] Latex (3 sources) Latex Substance Allergy 7 Rash [facility] Opioid Agonists (3 sources) Codeine Drug Allergy 7 GI Upset, Vomiting [facility] walnut allergenic extract (3 sources) walnut allergenic extract Drug Allergy 2 Swelling [facility] (20 sources) bacitracin; Translations: [BACITRACIN] drug allergy 7 Itching [facility] Work Phone: (20 sources) codeine; Translations: [CODEINE] drug allergy 7 GI Upset, Vomiting [facility] Work Phone: (20 sources) Latex; Translations: [LATEX] drug allergy 7 Rash [facility] Work Phone: (6 sources) Shellfish drug allergy 7 swelling, anaphylaxis [facility] Work Phone: (20 sources) Amoxicillin / Clavulanate; Translations: [AMOXICILLIN-PO T CLAVULANATE] Drug Allergy 8 Vomiting [facility] Work Phone: (20 sources) Shellfish; Translations: [SHELLFISH CONTAINING PRODUCTS] Drug Allergy 7 Swelling, Anaphylaxis, Shortness of Breath, Other: See Comments, Yumi [facility] (5 sources) Shellfish; Translations: [shellfish derived] Allergy to substance 2 Anaphylaxis [facility] (1 source) WALNUTS Propensity to adverse reactions 2 Swelling [facility] Work Phone: (20 sources) walnut allergenic extract; Translations: [WALNUT] Drug Allergy 2 Swelling [facility] (2 sources) Amoxicillin Drug Allergy 3 Vomiting [facility] (2 sources) Clavulanate Drug Allergy 3 Vomiting [facility] (1 source) Amoxicillin Drug Allergy 4 [facility] (1 source) Clavulanate Drug Allergy 4 [facility] (1 source) walnut Drug allergy (disorder) 4 [facility] Medications Current Medications Medication Drug Class(es) Dates Sig (Normalized) Sig (Original) acetaminophen 325 mg oral capsule (20 sources) Start: 01-12-2024 take 2 capsules by mouth every four hours as needed Acetaminophen 325 mg capsule Active 650 mg PO Q4H as needed January 12, 2024 1:00am Start: 08-08-2021 End: 09-15-2021 take 2 capsules by mouth every six hours as needed for pain Acetaminophen 500 mg capsule Discontinued 1000 mg PO EVERY 6 HOURS as needed for acute pain August 08, 2021 12:00am September 15, 2021 3:09pm Start: 08-08-2021 End: 09-15-2021 take 1000 mg by mouth every six hours Acetaminophen Discontinued 1000 MG PO EVERY 6 HOURS August 08, 2021 12:00am September 15, 2021 3:09pm ACETAMINOPHEN OR AL Take by mouth as needed. Active ACETAMINOPHEN OR AL Take by mouth as needed. 0 Active ACETAMINOPHEN OR AL Take by mouth. 0 Active Comment on above: Take by mouth. Take by mouth as nee ded. [id number] 200 actuat albuterol 0.09 mg/actuat metered dose inhaler (20 sources) beta2-Adrenergic Agonist Start: 07-03-2021 End: 01-12-2024 Albuterol Sulfate (Ventolin Hfa) 90 mcg/actuation HFA aerosol inhaler Active 2 NMA INHALATION Q4H as needed for shortness of breath or wheezing 3 January 12, 2024 2:10pm Start: 07-03-2021 End: 01-07-2022 take 1 puff(s) by inhalation every four hours Albuterol Sulfate (Ventolin Hfa) 90 mcg/actuation HFA aerosol inhaler Discontinued 2 PUFF INHALATION Q4H November 24, 2021 12:09pm January 07, 2022 11:32am Start: 04-24-2021 End: 07-03-2021 Albuterol Sulfate (Ventolin Hfa) 90 mcg/actuation HFA aerosol inhaler Discontinued 2 NMA INHALATION EVERY 6 HOURS as needed for shortness of breath or wheezing 18 3 April 24, 2021 4:26pm July 03, 2021 10:54am Start: 04-24-2021 End: 07-03-2021 take 1 puff(s) by inhalation every six hours Albuterol Sulfate (Ventolin Hfa) 90 mcg/actuation HFA aerosol inhaler Discontinued 2 PUFF INHALATION EVERY 6 HOURS April 24, 2021 4:26pm July 03, 2021 10:54am Start: 06-14-2020 take 2 puff(s) by in halation every six hours as needed for wheezing VENTOLIN HFA 90 mcg/actuation inhaler Indications: Chronic obstructive pulmonary disease, unspecified COPD type (HCC) Inhale 2 Puffs as instructed every 6 hours as needed for Wheezing/Shortness of Breath. 18 g 5 06/14/2020 Active Start: 04-22-2019 End: 04-24-2021 Albuterol Sulfate 90 mcg/act uation HFA aerosol inhaler Discontinued 2 NMA INHALATION 4 TIMES DAILY 02 23April 23, 2021 4:11pm April 24, 2021 3:50pm Start: 04-22-2019 End: 04-24-2021 take 1 puff(s) by inhalation four times daily Albuterol Sulfate Discontinued 2 PUFF INHALATION 4 TIMES DAILY April 23, 2021 4:11pm April 24, 2021 3:50pm Start: 04-19-2019 End: 04-22-2019 Albuterol Sulfate 1 INHALER inhaler Discontinued 1 - 2 NMA inhalation EVERY 6 HOURS NEEDED as needed for SOB/WHEEZE April 19, 2019 1:00am April 22, 2019 12:52pm Start: 04-19-2019 End: 04-22-2019 take 1 puff(s) by inhalation every six hours as needed Albuterol Sulfate Discontinued 1 - 2 PUFF inhalation EVERY 6 HOURS NEEDED April 19, 2019 1:00am April 22, 2019 12:52pm Start: 10-21-2016 PROAIR HFA 108 (90 Base) MCG/ACT AERS as directed ALBUTEROL SULFATE [id number] Thao Archer RN Start: 10-21-2016 PROAIR HFA 108 (90 Base) MCG/ACT AERS as directed ALBUTEROL SULFATE [id number] Thao Archer RN Comment on above: Inhale 2 Puffs as in structed every 6 hours as needed for Wheezing/Shortness of Breath. albuterol 0.833 mg/ml / ipratropium bromide 0.167 mg/ml inhalation solution (20 sources) Anticholinergic, beta2-Adrenergic Agonist Start: 019 take 3 mL by inhalation every six hours as needed for wheezing ipratropium-albute rol (DUONEB) 0.5 mg-3 mg(2.5 mg base)/3 mL nebu Indications: COPD with exacerbation (HCC) Inhale 3 mL as instructed every 6 hours as needed (wheezing/shortnes s of breath). 120 Vial 3 03/28/2018 Active Comment on above: Inhale 3 mL as instr ucted every 6 hours as needed (wheezing/shortness of breath). aspirin 81 mg delayed release oral tablet (17 sources) Platelet Aggregation Inhibitor, Nonsteroidal Anti-inflammatory Drug Start: take 1 tablet by mouth once daily Aspirin (Adult Aspirin Regimen) 81 mg tablet,delayed release (DR/EC) Active 81 mg PO daily January 12, 2024 1:00am End: 01-14-2024 take 1 tablet by mouth twice daily aspirin, enteric coated (ASPIRIN, ENTERIC COATED) 81 mg EC tablet Take 81 mg by mouth two times a day. 01/14/2024 Discontinued azithromycin 250 mg oral tablet (1 source) Macrolide Antimicrobial Start: 03-09-2024 End: 03-14-2024 azithromycin (ZITHROMAX Z-ZAHEER) 250 mg tablet Indications: Bacterial pneumonia Take 2 tablets day one, then, 1 tablet daily until gone. 6 tablet 03/09/2024 03/14/2024 Active Calcium (20 sources) Phosphate Binder, Calcium take 1 tablet by mouth once daily CALCIUM ORAL Take 1 tablet by mouth once daily. Active take 1 tablet by mouth once keya y CALCIUM ORAL Take 1 tablet by mouth once daily. 0 Active Comment on above: Take 1 tablet by ruben th once daily. Calcium Carbonate (20 sources) take 1 tablet by mouth at bedtime as needed calcium carbonate (TUMS ORAL) Take 1 tablet by mouth at bedtime as needed. Active take 1 tablet by ruben th at bedtime as needed calcium carbonate (TUMS ORAL) Take 1 tablet by mouth at bedtime as needed. 0 Active Comment on above: Take 1 tablet by ruben at bedtime as needed. doxycycline hyclate 100 mg oral tablet (19 sources) Tetracycline-clas s Drug Start: 04-02-2023 End: 04-12-2023 take 1 tablet by mouth twice daily doxycycline (VIBRA-TABS) 100 mg tablet Indications: Cellulitis of skin , Left ankle swelling , Discoloration of skin of lower leg , Acute left ankle pain , Blister of left lower extremity, initial encounter Take 1 tablet by mouth two times a day for 10 days. 20 tablet 0 04/02/2023 04/12/2023 Active Start: 10-12-2022 End: 12-23-2022 take 1 capsule by mouth twice daily doxycycline hyclate (VIBRAMYCIN) 100 mg capsule Indications: Post-operative state Take 1 capsule by mouth twice daily. 14 capsule 0 10/12/2022 12/23/2022 Discontinued Start: 03-16-2022 End: 03-23-2022 take 1 tablet by mouth twice daily doxycycline monohydrate 100 mg tablet Indications: Rhinosinusitis Take 1 tablet by mouth twice daily for 7 days. 14 tablet 0 03/16/2022 03/23/2022 Active Start: 02-12-2022 End: 08-11-2022 take 1 capsule by mouth twice daily Doxycycline Hyclate 100 mg capsule Discontinued 100 mg PO TWICE A DAY 20 0 February 12, 2022 1:00am August 11, 2022 7:37am Comment on above: Take 1 tablet by ruben twice daily for 7 days. Take 1 capsule by mo [facility] twice daily. Take 1 tablet by ruben two times a day for 10 days. enteric contrast (will be provided with radiology test) (1 source) Start: End: take 1 dose by mouth once, then take 1 dose by mouth once enteric contrast (will be provided with radiology test) Indications: Pelvic pain Take 1 Each by mouth one time only for [address] ABD/PEL WO Routine order Administer, As Directed One Time Only, via Oral, Rectal, both Oral and Rectal, Enteric Tube, Stoma or Indwelling Catheter, Enteric Contrast as designated per enteric contrast guidelines 1 Each 0 08/04/2023 08/04/2023 Active famotidine 20 mg oral tablet (1 source) Histamine-2 Receptor Antagonist Start: 1 take 20 mg by mouth twice daily Famotidine Active 20 MG PO TWICE A DAY 60 February 11, 2021 1:00am fluconazole 100 mg oral tablet (2 sources) Azole Antifungal Start: 3 End: 4 take 1 tablet by mouth once daily Fluconazole 100 mg tablet Active 100 mg PO daily 7 0 January 12, 2024 1:00am 60 actuat fluticasone propionate 0.232 mg/actuat / salmeterol xinafoate 0.014 mg/actuat dry powder inhaler (20 sources) Corticosteroid, beta2-Adrenergic Agonist Start: 3 fluticasone propion-salmeterol 232-14 mcg/actuation 10/09/2022 Active Start: 09-15-2022 End: 01-12-2024 Fluticasone Propion-Salmeter ol (Airduo Respiclick) 232-14 mcg/actuation aerosol powdr breath activated Active 1 NMA INHALATION Q12H 1 January 12, 2024 2:10pm copd Start: 09-15-2022 End: 10-09-2022 Fluticasone Propion-Salmeter ol (Airduo Respiclick) 232-14 mcg/actuation aerosol powdr breath activated Active 1 INH INHALATION Q12H 1 October 09, 2022 9:17am hydroCHLOROthiazide 25 mg / triamterene 37.5 mg oral capsule (20 sources) Potassium-sparing Diuretic, Thiazide Diuretic Start: 06-15-2022 End: 04-03-2023 take 1 capsule by mouth once daily triamterene-hydroCHLOROthiazide (DYAZIDE) 37.5-25 mg per capsule Take 1 capsule by mouth once daily. 90 capsule 1 10/05/2022 Active Start: 05-21-2022 End: 06-15-2022 triamterene-hydroCHLOROthiaz marcie (DYAZIDE) 37.5-25 mg per capsule Start: 04-19-2019 Triamterene-Hy drochlorothiazid 1 EACH tablet Active 1 {tbl} PO DAILY April 19, 2019 1:00am bp Start: 04-19-2019 take 1 tablet by ruben once daily Triamterene-Hydrochlorothiazid Active 1 TABLET PO DAILY April 19, 2019 1:00am Start: 05-30-2018 End: 05-09-2021 take 1 capsule by mouth once daily as needed triamterene-hydrochlorothiazide (DYAZIDE ) 37.5-25 mg per capsule Take 1 capsule by mouth once daily. As needed. 30 capsule 5 05/30/2018 05/09/2021 Discontinued Comment on above: Take 1 capsule by mo [facility] once daily. Hydrocolloid Dressing (DUODERM CGF BORDER DRESSING) 4 X 4 bndg (12 sources) Start: 05-18-2023 End: 08-16-2023 Hydrocolloid Dressing (DUODERM CGF BORDER DRESSING) 4 X 4 bndg Indications: Venous stasis ulcer of other part of lower leg limited to breakdown of skin, unspecified laterality, unspecified whether varicose veins present (HCC) Apply 1 Each to affected area every 36 hours. 5 Each 2 05/18/2023 08/16/2023 Active Comment on above: Apply 1 Each to affe cted area every 36 hours. lidocaine 0.05 mg/mg medicated patch (20 sources) Antiarrhythmic, Amide Local Anesthetic Start: 09-15-2021 Lidocaine (Lidoderm) 5 % adhesive patch,medicated Active 1 NMA TOPICAL DAILY as needed for pain 15 0 November 18, 2022 2:24pm leave on most painful area for up to 12 hrs End: 01-14-2024 apply 1 dose transdermal route every twenty-four hours lidocaine (LIDODERM) 5 % Apply 1 Patch as directed every 24 hours. 01/14/2024 Discontinued Comment on above: Apply 1 Patch as dir ected every 24 hours. loratadine 10 mg oral tablet (1 source) Start: 01-12-2024 take 1 tablet by mouth once daily as needed Loratadine 10 mg tablet Active 10 mg PO daily as needed January 12, 2024 1:00am Magnesium (20 sources) take 1 tablet by mouth once daily MAGNESIUM ORAL Take 1 tablet by mouth once daily. Active take 1 tablet by mouth once keya y MAGNESIUM ORAL Take 1 tablet by mouth once daily. 0 Active Comment on above: [facility] meclizine hydrochloride 25 mg oral tablet (20 sources) Antiemetic Start: 04-21-2022 meclizine (ANTIVERT) 25 mg tab Take 25 mg by mouth as needed. 04/21/2022 Active Start: 04-15-2022 take 1 tablet by ruben th twice daily as needed Meclizine (Antivert) 25 mg tablet,chewable Active 25 mg PO TWICE A DAY as needed for vertigo 20 0 April 15, 2022 4:39pm Comment on above: Take 25 mg by mouth as needed. Multivitamin preparation (3 sources) Start: 09-20-2020 take 1 tablet by mouth once daily Multivitamin Active 1 TABLET PO DAILY September 19, 2020 11:00pm Start: 09-20-2020 take 1 tablet by ruben th once daily Multivitamin Active 1 TABLET PO DAILY September 20, 2020 12:00am nitrofurantoin, macrocrystals 25 mg / nitrofurantoin, monohydrate 75 mg oral capsule (2 sources) Nitrofuran Antibacterial Start: 02-18-2024 End: 02-23-2024 take 1 capsule by mouth twice daily at mealtime nitrofurantoin monohydrate and macrocrystal (MACROBID) 100 mg capsule Take 1 capsule by mouth two times a day with meals for 5 days. 10 capsule 02/18/2024 02/23/2024 Active Start: 02-07-2024 End: 02-12-2024 take 1 capsule by mouth twice daily at mealtime nitrofurantoin monohydrate and macrocrystal (MACROBID) 100 mg capsule Take 1 capsule by mouth two times a day with meals for 5 days. 10 capsule 02/07/2024 02/12/2024 Active OXYGEN, HOME THERAPY, (20 sources) Start: 06-14-2020 OXYGEN, HOME T HERAPY, Inhale 3 L/min as instructed as directed. 06/14/2020 Active Start: 06-14-2020 OXYGEN, HOME T HERAPY, Inhale 3 L/min as instructed as directed. 0 06/14/2020 Active Comment on above: Inhale 3 L/min as in structed as directed. predniSONE 20 mg oral tablet (8 sources) Start: 2 End: 2 take 1 tablet by mouth once daily at mealtime predniSONE (DELTASONE) 20 mg tablet Indications: Sciatica, right side Take 1 tablet by mouth once daily for 5 days. Take daily with food. 5 tablet 0 09/04/2021 09/09/2021 Active Start: 08-08-2021 take 40 mg by mouth once daily, then take 30 mg by mouth once daily, then take 20 mg by mouth once daily, then take 10 mg by mouth once daily Prednisone Active 10 MG PO As Directed August 08, 2021 12:00am 40mg daily for 3 days, then 30mg daily for 3 days, then 20mg daily for 3 days, then 10mg daily for 3 days. Start: 04-22-2019 End: 06-01-2019 Prednisone 10 MG tablet Disc ontinued 10 mg PO DIRECTED April 22, 2019 1:00am June 01, 2019 10:13am 2 twice a day for 2 days, then 1 twice a day for 2 days, then 1/day for 2 days then stop Comment on above: [facility]. Take daily with food. rivastigmine 1.5 mg oral capsule (20 sources) Start: 01-12-2024 take 1 capsule by mouth twice daily Rivastigmine Tartrate 1.5 mg capsule Active 1.5 mg PO TWICE A DAY January 12, 2024 1:00am memory Start: 09-09-2021 End: 04-03-2023 take 1 capsule by mouth twice daily rivastigmine tartrate (EXELON) 1.5 mg capsule Indications: Mild cognitive impairment Take 1 capsule by mouth twice daily. 180 capsule 1 10/05/2022 Active Start: 09-04-2021 End: 12-09-2021 apply 1 dose transdermal route once daily rivastigmine (EXELON PATCH) 4.6 mg/24 hour patch Indications: Mild cognitive disorder Apply 1 Patch as directed once daily. 30 Patch 5 09/04/2021 12/09/2021 Discontinued Comment on above: Apply 1 Patch as dir ected once daily. Take 1 capsule by mo [facility] twice daily. Tiotropium Crawford 18 mcg capsule, w/inhalation device (2 sources) Start: take 1 capsule by inhalation once daily Tiotropium Crawford 18 mcg capsule, w/inhalation device Active 18 ug INHALATION DAILY 3 3 January 12, 2024 2:10pm copd Start: 02-16-2023 End: 01-12-2024 take 1 capsule by inhalation once daily Tiotropium Crawford 18 mcg capsule, w/inhalation device Discontinued 18 ug INHALATION DAILY 3 3 February 16, 2023 2:31pm January 12, 2024 2:10pm copd Zinc (20 sources) take 1 tablet by mouth once keya y Zinc 50 mg tab Take 50 mg by mouth once daily. Active take 1 tablet by mouth once keya y Zinc 50 mg tab Take 50 mg by mouth once daily. 0 Active Comment on above: Take 50 mg by mouth once daily. Completed/Discontinued Medications Medication Drug Class(es) Dates Sig (Normalized) Sig (Original) acetaminophen 325 mg / HYDROcodone bitartrate 7.5 mg oral tablet (8 sources) Opioid Agonist Start: 09-22-2021 End: 09-23-2021 take 1 tablet by mouth every eight hours as needed for pain HYDROcodone-Acetami nophen (NORCO) 7.5-325 mg per tablet Indications: DDD (degenerative disc disease), lumbar Take 1 tablet by mouth every 8 hours as needed for pain for up to 7 days. 15 tablet 0 09/22/2021 09/23/2021 Discontinued Start: 09-12-2021 End: 08-11-2022 Hydrocodone-Acetaminophen 5- 325 mg tablet Discontinued 1 {tbl} PO EVERY 6 HOURS as needed for pain 12 3 September 15, 2021 August 11, 2022 7:38am Lumbar back pain Radicular pain of lower extremity Low back pain, unspecified Radiculopathy, site unspecified Start: 09-12-2021 End: 08-11-2022 take 1 tablet by mouth every six hours Hydrocodone-Acetaminophen Discontinued 1 TABLET PO EVERY 6 HOURS 12 September 15, 2021 August 11, 2022 7:38am Comment on above: Take 1 tablet by ruben th every 8 hours as needed for pain for up to 7 days. alendronic acid 70 mg oral tablet (4 sources) Bisphosphonate Start: 12-14-19 End: 01-12-20 take 1 tablet by mouth every week Alendronate 70 mg tablet Discontinued 70 mg PO EVERY WEEK December 13, 2020 12:00am January 12, 2024 2:17pm amoxicillin 875 mg / clavulanate 125 mg oral tablet (4 sources) Penicillin-class Antibacterial Start: 10-16-19 End: 10-28-19 Amoxicillin-Pot Clavulanate 1 EACH tablet Discontinued 1 NMA PO TWICE A DAY 10 0 October 15, 2016 12:00am October 27, 2017 10:27am Start: 10-15-2016 End: 10-27-2017 Amoxicillin-Pot Clavulanate Discontinued 1 EACH PO TWICE A DAY 10 October 15, 2016 12:00am October 27, 2017 10:27am benzonatate 100 mg oral capsule (20 sources) Non-narcotic Antitussive Start: 07-15-2020 End: 01-12-2024 take 1 capsule by mouth three times daily as needed for cough Benzonatate 100 mg Capsule Discontinued 100 mg PO THREE TIMES A DAY as needed for Cough December 13, 2020 12:00am January 12, 2024 2:10pm Comment on above: Take 1 capsule by mo [facility] three times daily as needed. Budesonide-Formote rol (20 sources) Corticosteroid, beta2-Adrenergic Agonist Start: 09-15-2022 End: 09-15-2022 Budesonide-Formote rol (Symbicort) 160-4.5 mcg/actuation HFA aerosol inhaler Discontinued 2 NMA INHALATION TWICE A DAY 1 September 15, 2022 12:00am September 15, 2022 11:14am administer with spacer, rinse mouth after each use Start: 09-15-2022 End: 09-15-2022 take 1 puff(s) by mouth twice daily Budesonide-Formoterol (Symbicort) 160-4.5 mcg/actuation HFA aerosol inhaler Discontinued 2 PUFF INHALATION TWICE A DAY 1 September 15, 2022 12:00am September 15, 2022 11:14am administer with spacer, rinse mouth after each use Start: 01-07-2022 End: 05-14-2022 Budesonide-Formoterol (Symbi joseph) 160-4.5 mcg/actuation HFA aerosol inhaler Discontinued 2 NMA INHALATION TWICE A DAY 3 3 January 07, 2022 11:31am May 14, 2022 12:09pm copd Start: 01-07-2022 End: 05-14-2022 take 1 puff(s) by inhalation twice daily Budesonide-Formoterol (Symbicort) 160-4.5 mcg/actuation HFA aerosol inhaler Discontinued 2 PUFF INHALATION TWICE A DAY 3 January 07, 2022 11:31am May 14, 2022 12:09pm Start: 01-07-2022 take 1 puff(s) by in halation twice daily Budesonide-Formoterol (Symbicort) 160-4.5 mcg/actuation HFA aerosol inhaler Active 2 PUFF INHALATION TWICE A DAY 3 January 07, 2022 10:31am Start: 07-03-2021 End: 01-07-2022 Budesonide-Formoterol (Symbi joseph) 160-4.5 mcg/actuation HFA aerosol inhaler Discontinued 2 NMA INHALATION TWICE A DAY 3 3 July 03, 2021 10:52am January 07, 2022 11:32am copd Start: 07-03-2021 End: 01-07-2022 take 1 puff(s) by inhalation twice daily Budesonide-Formoterol (Symbicort) 160-4.5 mcg/actuation HFA aerosol inhaler Discontinued 2 PUFF INHALATION TWICE A DAY 3 July 03, 2021 10:52am January 07, 2022 11:32am Start: 07-03-2021 End: 01-07-2022 take 1 puff(s) by inhalation twice daily Budesonide-Formoterol (Symbicort) 160-4.5 mcg/actuation HFA aerosol inhaler Discontinued 2 PUFF INHALATION TWICE A DAY 3 July 03, 2021 9:52am January 07, 2022 10:32am Start: 07-03-2021 take 1 puff(s) by in halation twice daily Budesonide-Formoterol (Symbicort) 160-4.5 mcg/actuation HFA aerosol inhaler Active 2 PUFF INHALATION TWICE A DAY 3 July 03, 2021 10:52am Start: 03-03-2021 End: 07-03-2021 Budesonide-Formoterol (Symbi joseph) 160-4.5 mcg/actuation HFA aerosol inhaler Discontinued 2 NMA INHALATION TWICE A DAY 10.2 6 March 03, 2021 11:25am July 03, 2021 10:54am copd Start: 03-03-2021 End: 07-03-2021 take 1 puff(s) by inhalation twice daily Budesonide-Formoterol (Symbicort) 160-4.5 mcg/actuation HFA aerosol inhaler Discontinued 2 PUFF INHALATION TWICE A DAY 10.2 March 03, 2021 10:25am July 03, 2021 9:54am Start: 03-03-2021 End: 07-03-2021 take 1 puff(s) by inhalation twice daily Budesonide-Formoterol (Symbicort) 160-4.5 mcg/actuation HFA aerosol inhaler Discontinued 2 PUFF INHALATION TWICE A DAY 10.2 March 03, 2021 11:25am July 03, 2021 10:54am Start: 02-07-2021 End: 03-03-2021 Budesonide-Formoterol (Symbi joseph) 160-4.5 mcg/actuation HFA aerosol inhaler Discontinued 2 NMA INHALATION TWICE A DAY February 07, 2021 2:41pm March 03, 2021 11:26am copd Start: 02-07-2021 End: 03-03-2021 take 1 puff(s) by inhalation twice daily Budesonide-Formoterol (Symbicort) 160-4.5 mcg/actuation HFA aerosol inhaler Discontinued 2 PUFF INHALATION TWICE A DAY February 07, 2021 1:41pm March 03, 2021 10:26am Start: 02-07-2021 End: 03-03-2021 take 1 puff(s) by inhalation twice daily Budesonide-Formoterol (Symbicort) 160-4.5 mcg/actuation HFA aerosol inhaler Discontinued 2 PUFF INHALATION TWICE A DAY February 07, 2021 2:41pm March 03, 2021 11:26am Start: 10-10-2020 End: 10-07-2022 take 2 puff(s) by inhalation twice daily SYMBICORT 160-4.5 mcg/actuation inhaler Inhale 2 Puffs as instructed twice daily. 1 Inhaler 5 10/10/2020 10/07/2022 Discontinued Start: 12-19-2019 End: 02-07-2021 Budesonide-Formoterol 160-4. 5 mcg/actuation HFA aerosol inhaler Discontinued 2 NMA INHALATION TWICE A DAY 10.2 December 19, 2019 2:10pm February 07, 2021 2:41pm copd Start: 12-19-2019 End: 02-07-2021 take 1 puff(s) by inhalation twice daily Budesonide-Formoterol Discontinued 2 PUFF INHALATION TWICE A DAY 10.2 December 19, 2019 1:10pm February 07, 2021 1:41pm Start: 12-19-2019 End: 02-07-2021 take 1 puff(s) by inhalation twice daily Budesonide-Formoterol Discontinued 2 PUFF INHALATION TWICE A DAY 10.2 December 19, 2019 2:10pm February 07, 2021 2:41pm Start: 08-24-2019 End: 12-19-2019 Budesonide-Formoterol 160-4. 5 mcg/actuation HFA aerosol inhaler Discontinued 2 NMA INHALATION TWICE A DAY 10.2 6 August 24, 2019 8:19am December 19, 2019 2:11pm copd Start: 08-24-2019 End: 12-19-2019 take 1 puff(s) by inhalation twice daily Budesonide-Formoterol Discontinued 2 PUFF INHALATION TWICE A DAY 10.2 August 24, 2019 7:19am December 19, 2019 1:11pm Start: 08-24-2019 End: 12-19-2019 take 1 puff(s) by inhalation twice daily Budesonide-Formoterol Discontinued 2 PUFF INHALATION TWICE A DAY 10.2 August 24, 2019 8:19am December 19, 2019 2:11pm Start: 04-19-2019 End: 08-24-2019 Budesonide-Formoterol 160-4. 5 mcg/actuation HFA aerosol inhaler Discontinued 2 NMA INHALATION TWICE A DAY 10.2 2 May 02, 2019 11:05am August 24, 2019 8:19am copd Start: 04-19-2019 End: 08-24-2019 take 1 puff(s) by inhalation twice daily Budesonide-Formoterol Discontinued 2 PUFF INHALATION TWICE A DAY 10.2 May 02, 2019 11:05am August 24, 2019 8:19am Start: 10-21-2016 SYMBICORT 160- 4.5 MCG/ACT AERO as directed BUDESONIDE-FORMOTEROL FUMARATE [id number] Thao Archer RN Start: 10-21-2016 SYMBICORT 160- 4.5 MCG/ACT AERO as directed BUDESONIDE-FORMOTEROL FUMARATE [id number] Thao L Archer RN Comment on above: Inhale 2 Puffs as in structed twice daily. [id number] C ORAL (4 sources) End: 06-04-2021 [id number] ORAL Take by mouth. 06/04/2021 Discontinued End: 06-04-2021 [id number] ORAL Take by mouth. 0 06/04/2021 Discontinued CALCIUM-MAGNESIU M-ZINC ORAL Take by mouth. 0 Active Comment on above: Take by mouth. cholecalciferol 2000 unt oral capsule (20 sources) Vitamin D Start: 7 take 1 tablet by mouth once daily VITAMIN D3 2000 UNIT CAPS One tablet by mouth daily CHOLECALCIFEROL [id number] Thao Archer RN take 1 capsule by mouth once lisbet ly Cholecalciferol, Vitamin D3, 25 mcg (1,000 unit) cap Take 1,000 Units by mouth once daily. Active Cholecalciferol, Vitamin D3, (VITAMIN D) 25 mcg (1,000 unit) cap Take 1,000 Units by mouth once daily. 0 Active Comment on above: Take 1,000 Units by mouth once daily. clotrimazole 10 mg oral lozenge (2 sources) Azole Antifungal Start: 05-27-19 End: 06-10-19 clotrimazole (MYCELEX) 10 mg lorna Indications: Thrush Use 1 Lorna as instructed five times daily for 14 days. 70 tablet 0 05/26/2021 06/04/2021 Discontinued Comment on above: Use 1 Lorna as inst ructed five times daily for 14 days. donepezil hydrochloride 5 mg oral tablet (4 sources) Start: 06-05-19 End: 09-05-19 take 1 tablet by mouth once daily at bedtime donepezil (ARICEPT) 5 mg tablet Indications: Mild cognitive impairment Take 1 tablet by mouth daily at bedtime. 30 tablet 11 06/04/2021 09/04/2021 Discontinued Comment on above: Take 1 tablet by ruben th daily at bedtime. fluticasone propionate 0.05 mg/actuat metered dose nasal spray (20 sources) Corticosteroid Start: 04-19-19 End: 05-02-19 Fluticasone Propionate 9.9 ML spray,suspension Discontinued 1 NMA NS DAILY April 19, 2019 1:00am May 02, 2019 11:07am allergies Start: 04-19-2019 End: 05-02-2019 Fluticasone Propionate Discontinued 1 SPRAY NS DAILY April 19, 2019 1:00am May 02, 2019 11:07am Start: 03-08-2017 End: 06-15-2022 take 1 spray(s) nasal route once daily fluticasone (FLONASE) 50 mcg/actuation nasal spray Use 1 [place] in each nostril once daily. 1 Bottle 11 03/08/2017 06/15/2022 Discontinued (Other) Start: 10-21-2016 FLUTICASONE MA OPIONATE 50 MCG/ACT SUSP (0.05mg/inh) 1 spray each nostril once a day FLUTICASONE PROPIONATE [id number] Thao Archer RN Start: 10-21-2016 take 0.05 mg by inha lation once daily FLUTICASONE PROPIONATE 50 MCG/ACT SUSP (0.05mg/inh) 1 spray each nostril once a day FLUTICASONE PROPIONATE [id number] Thao Archer RN Comment on above: Use 1 [place] in each nostril once daily. 12 hr guaiFENesin 1200 mg extended release oral tablet (8 sources) Start: End: take 1 tablet by mouth every twelve hours as needed Guaifenesin 1,200 mg tablet extended release 12hr Discontinued 1200 mg PO Q12H as needed November 27, 2019 10:09am July 03, 2020 12:48pm iv contrast (will be provided with radiology test) (1 source) Start: End: inject 1 dose intravenously once iv contrast (will be provided with radiology test) Indications: Brain mass , Meningioma (HCC) MRI Brain Inject, intravenously, once for 1 dose.No IV access, insert saline lock prior to beginning of sedation, infusion, injection of imaging exam.Discontinue saline lock post exam. If Pt. has a central line or IVAD, may access for administration according to line specific nursing protocol.Once exam is complete flush line and de-access according to line specific nursing protocol in the MR contrast administration guidelines link 1 Each 05/06/2021 05/07/2021 lisinopril 5 mg oral tablet (4 sources) Angiotensin Converting Enzyme Inhibitor Start: End: take 1 tablet by mouth once daily Lisinopril 5 mg tablet Discontinued 5 mg PO DAILY November 29, 2017 12:00am November 29, 2017 11:26am meloxicam 7.5 mg oral tablet (20 sources) Nonsteroidal Anti-inflammatory Drug Start: End: take 1 tablet by mouth once daily meloxicam (MOBIC) 7.5 mg tablet Take 7.5 mg by mouth once daily. 12/06/2022 01/14/2024 Discontinued Comment on above: Take 7.5 mg by mouth once daily. Mometasone-Formote rol (Dulera) 200-5 mcg/actuation HFA aerosol inhaler (2 sources) Start: End: Mometasone-Formoterol (Dulera) 200-5 mcg/actuation HFA aerosol inhaler Discontinued 2 NMA INHALATION TWICE A DAY 13 May 14, 2022 12:00am September 15, 2022 8:14am Start: 05-14-2022 End: 09-15-2022 take 1 puff(s) by inhalation twice daily Mometasone-Formoterol (Dulera) 200-5 mcg/actuation HFA aerosol inhaler Discontinued 2 PUFF INHALATION TWICE A DAY May 14, 2022 12:00am September 15, 2022 8:14am Multivitamin Tablet (1 source) Start: 09-20-2020 End: 01-12-2024 Multivitamin Tablet Discontinued 1 {tbl} PO DAILY September 20, 2020 12:00am January 12, 2024 2:17pm vitamin NICOTINE POLACRILEX GUM (6 sources) Cholinergic Nicotinic Agonist Start: 10-21-2016 NICORETTE GUM as directed NICOTINE POLACRILEX GUM [id number] Thao Archer RN nystatin [id number] unt/ml oral suspension (20 sources) Polyene Antifungal Start: 05-29-2021 End: 08-08-2021 take 1 mL by mouth three times daily Nystatin 100,000 unit/mL suspension Discontinued 5 mL PO THREE TIMES A DAY 473 0 May 29, 2021 12:00am August 08, 2021 10:47am swish and swallow, use for one week Start: 05-29-2021 End: 08-08-2021 nystatin (MYCOSTATIN) 100,00 0 unit/mL suspension three times daily. 05/29/2021 Active Comment on above: three times daily. ondansetron 4 mg disintegrating oral tablet (4 sources) Serotonin-3 Receptor Antagonist Start: 09-13-19 End: 01-12-20 take 1 tablet by mouth every eight hours as needed for nausea and vomiting Ondansetron 4 mg tablet,disintegrati ng Discontinued 4 mg PO Q8H as needed for nausea and vomiting 10 September 12, 2021 12:00am January 12, 2024 2:17pm oseltamivir 30 mg oral capsule (4 sources) Neuraminidase Inhibitor Start: 04-22-19 End: 11-27-19 take 1 capsule by mouth twice daily Oseltamivir 30 MG capsule Discontinued 30 mg PO TWICE A DAY 3 April 22, 2019 1:00am November 27, 2019 10:08am pantoprazole 40 mg delayed release oral tablet (20 sources) Proton Pump Inhibitor Start: 05-07-19 End: 12-10-19 take 1 tablet by mouth once daily pantoprazole DR (PROTONIX) 40 mg tablet Take 1 tablet by mouth once daily. 30 tablet 2 05/06/2021 12/09/2021 Discontinued Start: 02-11-2021 End: 02-11-2021 Pantoprazole (Protonix) 40 m g tablet,delayed release (DR/EC) Discontinued 40 mg PO DAILY 60 2 February 11, 2021 1:00am February 11, 2021 4:29pm Take two times a day for eight weeks then once a day for eight weeks. Start: 12-14-2020 End: 02-11-2021 Pantoprazole 40 mg tablet,de layed release (DR/EC) Discontinued 40 mg PO NEEDED as needed for GERD February 07, 2021 2:41pm February 11, 2021 4:10pm Comment on above: Take 1 tablet by ruben th once daily. sucralfate 100 mg/ml oral suspension (10 sources) Aluminum Complex Start: End: take 1 mL by mouth three times daily 1 hour(s) before mealtime Sucralfate (Carafate) 100 mg/mL suspension Discontinued 10 mL PO before meals 1000 0 February 11, 2021 1:00am May 29, 2021 10:24am Take three times a day, one hour before meals on a empty stomach for thirty days. Start: 10-21-2016 SUCRALFATE 1 G M TABS 1g tid SUCRALFATE [id number] Thao Archer RN sulfamethoxazole 800 mg / trimethoprim 160 mg oral tablet (4 sources) Dihydrofolate Reductase Inhibitor Antibacterial, Sulfonamide Antimicrobial Start: 10-17-2023 End: 10-24-2023 take 1 tablet by mouth twice daily sulfamethoxazole-trimethoprim (BACTRIM DS) 800-160 mg per tablet Take 1 tablet by mouth two times a day for 5 days. 10 tablet 10/17/2023 10/17/2023 Discontinued tiotropium 0.018 mg inhalation powder (20 sources) Anticholinergic Start: 05-02-2019 End: 02-16-2023 take 1 capsule by inhalation once daily Tiotropium Crawford 18 mcg capsule, w/inhalation device Discontinued 18 ug INHALATION DAILY 1 0 December 12, 2021 2:19pm January 07, 2022 11:32am copd Start: 04-19-2019 End: 05-02-2019 Tiotropium Crawford 1 PUFF in haler Discontinued 1 NMA INHALATION DAILY April 19, 2019 1:00am May 02, 2019 11:07am copd Start: 04-19-2019 End: 05-02-2019 take 1 puff(s) by inhalation once daily Tiotropium [place] Discontinued 1 PUFF INHALATION DAILY April 19, 2019 1:00am May 02, 2019 11:07am Start: 03-15-2019 take 1 capsule by in halation once daily tiotropium (SPIRIVA WITH HANDIHALER) 18 mcg inhalation capsule INHALE THE CONTENTS OF ONE CAPSULE VIA HANDIHALER ONCE DAILY 90 capsule 3 03/15/2019 Active Start: 10-21-2016 SPIRIVA HANDIH ALER 18 MCG CAPS as directed TIOTROPIUM BROMIDE MONOHYDRATE [id number] Thao Archer RN Start: 10-21-2016 SPIRIVA HANDIH ALER 18 MCG CAPS as directed TIOTROPIUM BROMIDE MONOHYDRATE [id number] Thao Archer RN Comment on above: INHALE THE CONTENTS OF ONE CAPSULE VIA HANDIHALER ONCE DAILY traMADol hydrochloride 50 mg oral tablet (4 sources) Opioid Agonist Start: 3 End: 3 take 1 tablet by mouth every eight hours as needed for pain traMADol (ULTRAM) 50 mg tablet Indications: Post-operative state Take 1 tablet by mouth every 8 hours as needed for pain for up to 7 days. 21 tablet 0 10/12/2022 10/19/2022 Comment on above: Take 1 tablet by ruben th every 8 hours as needed for pain for up to 7 days. zinc gluconate 50 mg oral tablet (6 sources) Start: 7 take 1 tablet by mouth once daily ZINC GLUCONATE 50 MG TABS One tablet by mouth daily ZINC GLUCONATE [id number] Thao Archer RN Problems Active Problems Problem Classification Problem Date Documented Da te Episodic/Chronic Abdominal pain (20 sources) Abdominal pain; Translations: [Unspecified abdominal pain] Onset: 05-11-2016 Resolved: 12-20-2020 01-16-2021 Episodic Acquired foot deformities (11 sources) Hallux valgus; Translations: [Hallux valgus (acquired), right foot] Onset: 10-12-2022 Chronic Cardiac dysrhythmias (20 sources) Atrial fibrillation; Translations: [Unspecified atrial fibrillation] Onset: 06-15-2022 Resolved: 12-23-2022 12-14-2020 Chronic Chronic obstructive pulmonary disease and bronchiectasis (20 sources) Chronic obstructive lung disease; Translations: [Pulmonary emphysema] Onset: 06-05-2016 Resolved: 06-15-2022 10-21-2016 Chronic Conditions associated with dizziness or vertigo (20 sources) Meniere's disease; Translations: [Meniere's disease, unspecified ear] Onset: 05-30-2018 05-30-2018 Chronic Conditions associated with dizziness or vertigo (3 sources) Vertigo; Translations: [Dizziness and giddiness] 04-15-2022 Episodic Delirium, dementia, and amnestic and other cognitive disorders (1 source) Mild cognitive disorder ; Translations: [Unspecified mental disorder due to known physiological condition] Chronic Disorders of lipid metabolism (20 sources) Mixed hyperlipidemia; Translations: [Mixed hyperlipidemia] Onset: 03-30-2017 03-30-2017 Chronic Essential hypertension (6 sources) Essential hypertension; Translations: [Essential (primary) hypertension] 11-07-2018 Chronic Fluid and electrolyte disorders (1 source) Hypokalemia; Translations: [Hypokalemia] Episodic Gastritis and duodenitis (5 sources) Gastritis; Translations: [Gastritis, unspecified, without bleeding] Episodic Genitourinary symptoms and ill-defined conditions (2 sources) Urinary symptoms ; Translations: [Unspecified symptoms and signs involving the genitourinary system] 08-04-2023 Episodic Heart valve disorders (20 sources) Non-rheumatic mitral regurgitation ; Translations: [Mitral valve regurgitation] Onset: 10-21-2016 10-21-2016 Chronic Immunizations and screening for infectious disease (1 source) Patient encounter status; Translations: [Encounter for immunization] Episodic Influenza (4 sources) Influenza; Translations: [Influenza due to unidentified influenza virus with other respiratory manifestations] 04-19-2019 Episodic Intestinal obstruction without hernia (8 sources) Intestinal obstruction co-occurrent and due to decreased peristalsis; Translations: [Ileus, unspecified] 04-19-2019 Episodic Leukemias (4 sources) Chronic myeloid leukemia; Translations: [Chronic myeloid leukemia, BCR/ABL-positive, not having achieved remission] 04-14-2018 Chronic Malaise and fatigue (20 sources) Muscle weakness; Translations: [Weakness] Onset: 08-03-2022 Resolved: 06-28-2023 Episodic Mycoses (17 sources) Candidiasis of mouth; Translations: [Candidal stomatitis] Onset: 03-21-2024 Episodic Nausea and vomiting (3 sources) Nausea; Translations: [Nausea] 09-20-2021 Episodic Non-Hodgkin`s lymphoma (20 sources) B-cell lymphoma (clinical); 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, unspecified site] Onset: 08-05-2021 Chronic Noninfectious gastroenteritis (4 sources) Gastroenteritis; Translations: [Noninfective gastroenteritis and colitis, unspecified] 04-19-2019 Episodic Nonspecific chest pain (20 sources) Chest pain; Translations: [Chest pain, unspecified] Onset: 11-26-2022 Resolved: 06-28-2023 12-22-2020 Episodic Open wounds of extremities (2 sources) Open wound of toe; Translations: [Unspecified open wound of unspecified toe(s) without damage to nail, initial encounter] Episodic Osteoporosis (20 sources) Osteoporosis; Translations: [Age-related osteoporosis without current pathological fracture] Onset: 12-20-2020 12-20-2020 Chronic Other and unspecified benign neoplasm (20 sources) Neoplasm of meninges; Translations: [Benign neoplasm of meninges, unspecified] Onset: 03-16-2018 12-20-2020 Chronic Other and unspecified benign neoplasm (1 source) Benign neoplasm of meninges, unspecified; Translations: [Meningioma (HCC)] Onset: 12-20-2020 Chronic Other circulatory disease (1 source) Abnormal peripheral pulse; Translations: [Other specified symptoms and signs involving the circulatory and respiratory systems] 02-28-2024 Episodic Other connective tissue disease (2 sources) Pain of toe of left foot; Translations: [Pain in left toe(s)] Episodic Other connective tissue disease (1 source) Pain of toe of right foot; Translations: [Pain in right toe(s)] 10-06-2022 Episodic Other eye disorders (1 source) Pain of bilateral eyes; Translations: [Ocular pain, bilateral] 08-14-2023 Episodic Other gastrointestinal disorders (5 sources) Personal history of other diseases of the digestive system; Translations: [History of small bowel obstruction] Episodic Other gastrointestinal disorders (8 sources) Constipation; Translations: [Constipation, unspecified] 04-15-2022 Episodic Other gastrointestinal disorders (1 source) Constipation, unspecified; Translations: [Constipation, unspecified] Episodic Other hereditary and degenerative nervous system conditions (20 sources) Impaired cognition; Translations: [Mild cognitive impairment, so stated] Onset: 09-09-2021 Chronic Other hereditary and degenerative nervous system conditions (1 source) Mild cognitive impairment, so stated; Translations: [Mild cognitive impairment] Onset: 09-09-2021 Chronic Other lower respiratory disease (4 sources) Hypoxia; Translations: [Hypoxemia] 04-19-2019 Episodic Other lower respiratory disease (1 source) Cough; Translations: [Acute cough] Episodic Other lower respiratory disease (1 source) Cough; Translations: [Acute cough] 03-16-2022 Episodic Other lower respiratory disease (2 sources) Respiratory insufficiency; Translations: [Other abnormalities of breathing] 08-22-2024 Episodic Other nervous system disorders (1 source) Mass lesion of brain; Translations: [Other specified disorders of brain] Chronic Other nervous system disorders (1 source) Other chronic pain; Translations: [Other chronic pain] Onset: 07-30-2023 Chronic Other nervous system disorders (1 source) Abnormal gait; Translations: [Unsteadiness on feet] Episodic Other nervous system disorders (1 source) Impairment of balance; Translations: [Other abnormalities of gait and mobility] Episodic Other non-traumatic joint disorders (2 sources) Shoulder pain; Translations: [Pain in left shoulder] 08-08-2021 Episodic Other non-traumatic joint disorders (2 sources) Pain in left shoulder; Translations: [Left shoulder pain] 08-08-2021 Episodic Other non-traumatic joint disorders (2 sources) Chronic pain of left upper limb; Translations: [Pain in left shoulder] 12-04-2022 Episodic Other non-traumatic joint disorders (3 sources) Swollen ankle region; Translations: [Effusion, left ankle] 04-02-2023 Episodic Other non-traumatic joint disorders (3 sources) Acute ankle pain; Translations: [Pain in left ankle and joints of left foot] 04-02-2023 Episodic Other non-traumatic joint disorders (1 source) Effusion, left ankle; Translations: [Left ankle swelling] Onset: 04-02-2023 Episodic Other non-traumatic joint disorders (1 source) Pain in left ankle and joints of left foot; Translations: [Acute left ankle pain] Onset: 04-02-2023 Episodic Other nutritional; endocrine; and metabolic disorders (1 source) Hypercalcemia; Translations: [Hypercalcemia] Chronic Other nutritional; endocrine; and metabolic disorders (3 sources) Weight loss; Translations: [Abnormal weight loss] 04-14-2018 Episodic Other nutritional; endocrine; and metabolic disorders (1 source) Weight decreased; Translations: [Abnormal weight loss] 10-27-2017 Episodic Other skin disorders (10 sources) Foot callus; Translations: [Corns and callosities] Episodic Other skin disorders (3 sources) Finding of color of limb; Translations: [Disorder of pigmentation, unspecified] 04-02-2023 Episodic Other skin disorders (1 source) Disorder of pigmentation, unspecified; Translations: [Discoloration of skin of lower leg] Onset: 04-02-2023 Episodic Other skin disorders (1 source) Disorder of the skin and subcutaneous tissue, unspecified; Translations: [Skin lesion] Onset: 07-12-2024 Episodic Other upper respiratory disease (1 source) Chronic rhinitis; Translations: [Unspecified sinusitis (chronic)] Chronic Other upper respiratory infections (1 source) Acute upper respiratory infection, unspecified; Translations: [Acute upper respiratory infection, unspecified] Onset: 03-22-2024 Episodic Elizabeth-; endo-; and myocarditis; cardiomyopathy (except that caused by tuberculosis or sexually transmitted disease) (20 sources) Heart valve disorder; Translations: [Endocarditis, valve unspecified] Onset: 06-28-2023 10-07-2022 Chronic Pleurisy; pneumothorax; pulmonary collapse (4 sources) Pneumothorax; Translations: [Pneumothorax, unspecified] 04-14-2018 Episodic Pneumonia (except that caused by tuberculosis or sexually transmitted disease) (1 source) Bacterial pneumonia; Translations: [Unspecified bacterial pneumonia] 03-09-2024 Episodic Residual codes; unclassified (4 sources) Acute pain; Translations: [Pain, unspecified] 08-08-2021 Episodic Residual codes; unclassified (3 sources) Postoperative state; Translations: [Other specified postprocedural states] 10-13-2022 Episodic Residual codes; unclassified (2 sources) Localized edema; Translations: [Localized edema] 04-02-2023 Episodic Residual codes; unclassified (1 source) Localized edema; Translations: [Localized edema] Onset: 04-02-2023 Episodic Respiratory failure; insufficiency; arrest (adult) (20 sources) Chronic hypoxemic respiratory failure; Translations: [Chronic respiratory failure with hypoxia] Onset: 06-15-2022 Chronic Screening and history of mental health and substance abuse codes (2 sources) Encounter for screening for depression; Translations: [Encounter for screening examination for other mental health and behavioral disorders] Onset: 07-12-2024 Episodic Skin and subcutaneous tissue infections (4 sources) Cellulitis of skin; Translations: [Cellulitis, unspecified] Onset: 04-02-2023 04-02-2023 Episodic Spondylosis; intervertebral disc disorders; other back problems (1 source) Degeneration of lumbar intervertebral disc; Translations: [Other intervertebral disc degeneration, lumbar region] Chronic Spondylosis; intervertebral disc disorders; other back problems (20 sources) Sciatica; Translations: [Sciatica, right side] Episodic Superficial injury; contusion (4 sources) Traumatic blister of lower limb; Translations: [Blister (nonthermal), left lower leg, initial encounter] Onset: 04-02-2023 04-02-2023 Episodic Unclassified (1 source) Cough, unspecified; Translations: [Cough, unspecified] Onset: 03-22-2024 Urinary tract infections (1 source) Urinary tract infection, site not specified; Translations: [Urinary tract infection, site not specified] Onset: 03-22-2024 Episodic Varicose veins of lower extremity (2 sources) Venous stasis ulcer with edema of left lower leg; Translations: [Varicose veins of left lower extremity with ulcer of unspecified site] 05-04-2023 Episodic Past or Other Problems Problem Classification Problem Date Documented Da te Episodic/Chronic Cancer of breast (20 sources) History of malignant neoplasm of breast; Translations: [Personal history of malignant neoplasm of breast] Onset: 05-12-2017 Resolved: 03-24-2018 06-12-2020 Episodic Chronic ulcer of skin (20 sources) Ulcer of toe; Translations: [Non-pressure chronic ulcer of other part of right foot limited to breakdown of skin] Onset: 06-28-2023 Resolved: 01-14-2024 Chronic Leukemias (20 sources) History of chronic lymphocytic leukemia; Translations: [Personal history of leukemia] Onset: 05-11-2016 12-20-2020 Episodic Other circulatory disease (1 source) Other specified symptoms and signs involving the circulatory and respiratory systems; Translations: [Diminished pulses in lower extremity] Onset: 03-21-2024 Episodic Results Test Name Value Interpretation Reference Range Facility Absolute lymphocyte countOrd ered By: Juno Cruz on 08-22-2024 Lymphocytes Auto (Unsp spec) [#/Vol] 3.85 10*3/uL 0.83-4.51 [facility] Absolute neutrophil countOrd ered By: Juno Cruz on 08-22-2024 Neutrophils (Bld) [#/Vol] 9.8 10*3/uL High 2.0-7.7 [facility] Anion gap in Serum or Plasma Ordered By: Juno Cruz on 08-22-2024 Anion gap [Moles/Vol] 14 mmol/L 5-15 [facility] Automated lymphocyte count a s percentage of total leukocytesOrdered By: Juno Cruz on 08-22-2024 Lymphocytes/100 WBC Auto (Unsp spec) 25.4 % 19-41 [facility] BUN/creatinine ratioOrdered By: Juno Cruz on 08-22-2024 Urea nitrogen/Creatinine [Mass ratio] 40.5 mg/mg High 10-20 [facility] Basophil percentageOrdered B y: Juno Cruz on 08-22-2024 Basophils/100 WBC (Bld) 0.4 % 0-1 [facility] CO2 (BldV) [Moles/Vol]Ordere d By: Juno Cruz on 08-22-2024 CO2 [Moles/Vol] 28 mmol/L 23-33 [facility] Carbon dioxide, total [Moles /volume] in Central venous bloodOrdered By: Juno Cruz on 08-22-2024 CO2 [Moles/Vol] 25.2 mmol/L 21.0-32.0 [facility] Chloride assayOrdered By: Albert Cruz on 08-22-2024 Chloride [Moles/Vol] 94 mmol/L Low 98-108 [facility] Eosinophil percentageOrdered By: Juno Cruz on 08-22-2024 Eosinophils/100 WBC (Bld) 1.0 % 0-5 [facility] Erythrocyte distribution wid th ratioOrdered By: Juno Cruz on 08-22-2024 Erythrocyte distribution width (RBC) [Ratio] 14.4 % 11.6-14.6 [facility] Erythrocyte distribution wid th standard deviationOrdered By: Juno Alonzo on 08-22-2024 Erythrocyte distribution width (RBC) [Ratio] 45.6 fl High 35.1-43.9 [facility] Glomerular filtration rate ( GFR) estimation/1.73 sq m using serum, plasma, or whole bOrdered By: Juno Cruz on 08-22-2024 GFR/1.73 sq M.predicted among non-blacks MDRD (S/P/Bld) [Vol rate/Area] 79 mL/min/{1.73_m2} >60 [facility] Comment on above: mL/min/1.73m2 CKD-EP I Creatinine Equation (2020) Hematocrit Auto (Bld) [Volum e fraction]Ordered By: Juno Cruz on 08-22-2024 Hematocrit (Bld) [Volume fraction] 42.9 % 37-47 [facility] Hemoglobin measurementOrdere d By: Juno Cruz on 08-22-2024 Hemoglobin (Bld) [Mass/Vol] 14.5 g/dL 12.0-15.0 [facility] Immature granulocytes/100 WB C Auto (Bld)Ordered By: Juno Cruz on 08-22-2024 Immature granulocytes/100 WBC (Bld) 0.500 % 0.0-0.9 [facility] Comment on above: IG% - Immature Granu locytes (promyelocytes, myelocytes and metamyelocytes) > 1% indicates that a LEFT SHIFT is Present. Influenza virus A and B and SARS-CoV-2 (COVID-19) and Respiratory syncytial virus RNAOrdered By: Juno Cruz on 08-22-2024 SARS-CoV-2 (COVID-19) RNA AIME+probe Ql (Unsp spec) [facility] Lactic acid measurementOrder ed By: Juno Cruz on 08-22-2024 Lactate [Moles/Vol] 1.4 mmol/L 0.0-2.0 [facility] MCV (mean corpuscular volume ) determinationOrdered By: Juno Cruz on 08-22-2024 MCV (RBC) [Entitic vol] 86.3 fL 81-99 [facility] Mean corpuscular hemoglobin (MCH) determinationOrdered By: Juno Cruz on 08-22-2024 MCH (RBC) [Entitic mass] 29.2 pg 27.0-32.0 [facility] Mean corpuscular hemoglobin concentration (MCHC) determinationOrdered By: Juno Cruz on 08-22-2024 MCHC (RBC) [Mass/Vol] 33.8 g/dL 32-36 [facility] Mean platelet volume determi nationOrdered By: Juno Cruz on 08-22-2024 Platelet mean volume (Bld) [Entitic vol] 12.6 fL High 6.2-12.0 [facility] Monocyte percentageOrdered B y: Juno Cruz on 08-22-2024 Monocytes/100 WBC (Bld) 8.3 % 0-10 [facility] Neutrophil percentageOrdered By: Juno Cruz on 08-22-2024 Neutrophils/100 WBC (Bld) 64.4 % 47-70 [facility] No Panel InformationOrdered By: Juno Cruz on 08-22-2024 Blood Gas Sample Site Not entered [facility] Blood Gas Specimen Type NAHOMY [facility] Oxygen Delivery Device Room Air [facility] Nucleated red blood cell per centageOrdered By: Juno Cruz on 08-22-2024 Nucleated RBC/100 WBC (Bld) [Ratio] 0 % 0-5 [facility] Platelet countOrdered By: Albert Cruz on 08-22-2024 Platelets (Bld) [#/Vol] 127 10*3/uL Low 150-450 [facility] Potassium measurement (mass/ volume)Ordered By: Juno Cruz on 08-22-2024 Potassium (Unsp spec) [Mass/Vol] 4.1 mmol/L 3.3-5.1 [facility] Comment on above: Hemolysis present, R esults could be affected. RBC Auto (Bld) [#/Vol]Ordere d By: Juno Cruz on 08-22-2024 RBC (Bld) [#/Vol] 4.97 10*6/uL 4.2-5.4 [facility] Serum creatinine measurement (mass/volume)Ordered By: Juno Cruz on 08-22-2024 Creatinine [Mass/Vol] 0.76 mg/dL 0.70-1.20 [facility] Serum glucose measurement (m ass/volume)Ordered By: Juno Cruz on 08-22-2024 Glucose [Mass/Vol] 118 mg/dL High 70-99 [facility] Serum or plasma calcium dmitry urement (mass/volume)Ordered By: Juno Alonzo on 08-22-2024 Calcium [Mass/Vol] 8.6 mg/dL 7.6-11.0 [facility] Serum or plasma urea nitroge n measurement (mass/volume)Ordered By: Juno Cruz on 08-22-2024 Urea nitrogen [Mass/Vol] 31 mg/dL High 4-19 [facility] Sodium levelOrdered By: Anthony Cruz on 08-22-2024 Sodium [Moles/Vol] 133 mmol/L 133-145 [facility] Venous blood base excess myriam surementOrdered By: Juno Cruz on 08-22-2024 Base excess Calc (BldV) [Moles/Vol] 4 mmol/L High -1.0-3.5 [facility] Venous blood bicarbonate myriam surementOrdered By: Juno Cruz on 08-22-2024 HCO3 (Bld) [Moles/Vol] 27 mmol/L High 22-26 [facility] Venous blood oxygen saturati on measurementOrdered By: Juno Cruz on 08-22-2024 Oxygen saturation in Blood 76 % High 50-70 [facility] Venous blood pH measurementO rdered By: Juno Cruz on 08-22-2024 pH (BldV) 7.52 [pH] High 7.32-7.42 [facility] Venous blood partial pressur e of carbon dioxide measurementOrdered By: Juno Cruz on 08-22-2024 CO2 (BldV) [Partial pressure] 33.0 mm[Hg] Low 41-51 [facility] Venous blood partial pressur e of oxygen measurementOrdered By: Juno Alonzo on 08-22-2024 Oxygen (BldV) [Partial pressure] 36 mm[Hg] 25-40 [facility] White blood cell (WBC) count Ordered By: Juno Cruz on 08-22-2024 WBC (Bld) [#/Vol] 15.2 10*3/uL High 4.4-11.0 [facility] ) MADISON LOFTON ([id number]) 1940 F Date Time Provider Department 07/12/24 1:00 PM DONNELL DOOLEY FAMPWS During your visit today, we recorded the following information about you: Pulse Blood pressure Weight Height 76/minute 134/70 42.4 kg 1.499 m Donnell Dooley MD 07/12/2024 5:49 PM Signed Madison Lofton is a 84 year old female here for a Medicare wellness visit. Medicare Health Risk Assessment General Health Good Exercise: Minutes/Day 30 min Exercise: Days/Week 3 days Alcohol: Daily Use Monthly or less Alcohol: Drinks/Day Patient does not drink Alcohol: 6 or more drinks Never Feel off balance Yes, using rollator. Concerns: Teeth/Dentures No Concerns: Sexual function No Troubled by feelings None of the above Frequency: Eating healthy diet Several days ADLs requiring help In assisted living. Safety precautions in home/vehicle Yes Smoke, vape, chews tobacco No Difficulty hearing No Difficulty seeing No Current Providers Specialists: I have reviewed specialist-related care of the patient in the medical record. Current care team: Patient Care Team: Donnell Dooley MD as PCP - General (Family Medicine) Dennis Mendosa (Ent - Otolaryngology) Margarito Shields MD (Hematology/Oncology) Morelia Hewitt APRN.REYNALDO as Retail Management Keyholder (Family Medicine) Amber Griffith APRN.CNP as Retail Management Keyholder (Family Medicine) Dr Helms, podiatry. Now seeing podiatry at facility. Dr Antunez, pulmonary. Dr Diallo, optho. [facility]-not followed up. Defers follow up. Dr Barfield, GASTROENTEROLOGY not recently. Medical/Family history review Reviewed and updated problem list, medical/surgical/famil y/social history, medications, and allergies. Opioid use review Opioid Medications (last 90 days) No data to display Anxiety/Depression screening (Lower risk for depression) YANETH-7 Score: 0. Recommendation: no further intervention at this time Cognitive screening Mini Cog Score: 2 Brief Assessment of Cognitive Health (BACH) Results: The patient endorsed minimal depression symptoms on PHQ-8[1]. The patient endorsed a minimal level of stress. The patient reported getting about 8 hours of sleep per night, which falls into the recommended category based on National Sleep Foundation Guidelines [2].They endorsed no recent sleep problems. The patient?s cognitive test performance was VALID. When invalid, probability of cognitive impairment score should be disregarded. Probability of cognitive impairment [3]: 89.64% Above 50% - Probable cognitive impairment; Specialty evaluation may be warranted 20-50% - Possible cognitive impairment; Address moderate to severe depression and sleep issues and retest Below 20% - Very low chance of cognitive impairment Moderate to severe levels of depression or stress may contribute to subjective cognitive complaints in the absence of cognitive impairment [1] Brian K, Kirsty TW, Vitor RL, Luther JAIRON, Joshua JT, Duarte AH. The PHQ-8 as a measure of current depression in the general population. J Affect Disord. 2009;114(1-3):163-173. doi: 10.1016/j.antwan.2008.06. 026 [2] Tomy et al. National Sleep Foundation's sleep time duration recommendations: methodology and results summary. Sleep Health. 2015 Mar;1(1):40-43. doi: 10.1016/j.sleh.2014.12 .010. [3] Chacho RM, Sharon O, Jenna AF, Victorina DP. Automated detection of cognitive impairment in clinical practice. J Neurol. 2023 Jef . doi: 10.1007/d50940-727-090 44-8. Epub ahead of print. PMID: 32079011. Cognitive screening reviewed and Patient has known cognitive impairment. Functional Observation Was the patient's Timed Up AND Go test unsteady or >= 12 seconds? No Advance Care Planning Surrogate decision maker and/or advance care plan documented DNRCC- per records. ROS No chest pain or shortness of breath. No edema. Measurements BP 134/70 Pulse 76 Ht 149.9 cm (4' 11) Wt 42.4 kg (93 lb 6.4 oz) SpO2 98% BMI 18.86 kg/m? Vision Screening: Follows with optometry/ophthalmolog y PHYSICAL EXAM: GEN: pleasant, no acute distress, alert HEENT: PERRL, EOMI, MMM Skin: has a 1 cm area on left forehead that is not healing and has raised pearly edges. NECK: supple, no lymphadenopathy, no thyromegaly HEART: regular rate, regular rhythm, no murmurs LUNGS: clear to auscultation, no wheezes or crackles, no increased WOB ABD: soft, non-distended, no masses palpated, non-tender EXT: no clubbing, no cyanosis, no edema Assessment/Plan ASSESSMENT/PLAN: 1. Medicare annual wellness visit, subsequent - ICD9: V70.0, ICD10: Z00.00 (primary diagnosis) - Counseled on healthy diet and regular exercise 2. Meningioma (HCC) - ICD9: 225.2, ICD10: D32.9 - hold on following per discussion with daughter. 3. VHD (valvular heart disease) - ICD9: 424.90, ICD10: I38 - hold on fo (more content not included)... [facility] MADISON LOFT[facility] ([id number]) 1940 F Date Time Provider Department 04/24/24 REENA ARANGO During your visit today, we recorded the following information about you: Reena Arango DO 04/24/2024 7:26 AM Signed Bill, I was called from your patient's assisted living facility this weekend yesterday on Rick, March 2 regarding the patient having loose stools. There was an issue with concern by the nurse who reviewed the patient's medications and was concerned about the use of Imodium with the potential for complications. Patient had not been on recent antibiotics. Patient has not been experiencing any nausea or vomiting. No abdominal distention or warning signs of the abdomen being distended or having bowel obstruction or severe ileus. I wrote for Imodium 1 tablet every 6 hours as needed for loose stool that she was requesting for a maximum of 2 doses and reevaluate with a diet that avoids milk, artificial flavorings and sweeteners and high-fiber foods at least for the next 24 to 48 hours encouraging good p.o. fluid intake. All the best Reena Allergies As of Date: 04/24/2024 Noted Allergy Reaction AUGMENTIN (AMOXICILLIN-POT CLAVUL*12/23/2017 11 - Vomiting CODEINE 03/03/2016 8 - GI Upset 11 - Vomiting SHELLFISH CONTAINING PRODUCTS 03/03/2016 7 - Swelling 10 - Anaphylaxis 12 - Shortness of Breath 14 - Other: See Comments 4 - Hives Comments: No serious trouble with recent re-introduction of shellfish into diet. BACITRACIN 03/03/2016 9 - Itching LATEX 03/03/2016 2 - Rash WALNUT 01/07/2022 7 - Swelling Date Reviewed: 02/28/2024 Reviewed by: Sherron Warren RN - Fully Assessed Prescriptions as of 04/24/2024 - fluticasone propion-salmeterol 232-14 mcg/actuation - ACETAMINOPHEN ORAL Take by mouth as needed. - rivastigmine tartrate (EXELON) 1.5 mg capsule Take 1 capsule by mouth twice daily. - triamterene-hydroCHLOR Othiazide (DYAZIDE) 37.5-25 mg per capsule Take 1 capsule by mouth once daily. - meclizine (ANTIVERT) 25 mg tab Take 25 mg by mouth as needed. - calcium carbonate (TUMS ORAL) Take 1 tablet by mouth at bedtime as needed. - nystatin (MYCOSTATIN) 100,000 unit/mL suspension three times daily. - Cholecalciferol, Vitamin D3, 25 mcg (1,000 unit) cap Take 1,000 Units by mouth once daily. - VENTOLIN HFA 90 mcg/actuation inhaler Inhale 2 Puffs as instructed every 6 hours as needed for Wheezing/Shortness of Breath. - OXYGEN, HOME THERAPY, Inhale 3 L/min as instructed as directed. - tiotropium (SPIRIVA WITH HANDIHALER) 18 mcg inhalation capsule INHALE THE CONTENTS OF ONE CAPSULE VIA HANDIHALER ONCE DAILY - Zinc 50 mg tab Take 50 mg by mouth once daily. - ipratropium-albuterol (DUONEB) 0.5 mg-3 mg(2.5 mg base)/3 mL nebu Inhale 3 mL as instructed every 6 hours as needed (wheezing/shortness of breath). - CALCIUM ORAL Take 1 tablet by mouth once daily. - MAGNESIUM ORAL Take 1 tablet by mouth once daily. 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] Chronic bronchitis (HCC) [J42] 06/15/2022 Mixed hyperlipidemia [E78.2] 03/30/2017 History of breast cancer in female [Z85.3] 05/12/2017 03/24/2018 Meningioma (HCC) [D32.9] 03/16/2018 Meniere's disease [H81.09] MVP (mitral valve prolapse) [I34.1] 12/20/2020 Mild cognitive impairment [G31.84] 09/09/2021 Chronic respiratory failure with hypoxia (HCC) *06/15/2022 Atrial fibrillation (HCC) [I48.91] 06/15/2022 12/23/2022 Chest pain, unspecified [R07.9] 11/26/2022 06/28/2023 Diagnosed: 12/23/2022 Weakness [R53.1] 08/03/2022 06/28/2023 Diagnosed: 12/23/2022 Ulcer of toe of right foot, limited to breakdow*06/28/2023 01/14/2024 Encounter Status:Closed by REENA ARANGO on 04/24/24 [facility] 03-22-2024 [facility] Telephone (MEKAWS) MADISON LOFTON ([id number]) 1940 F Date Time Provider Department 03/22/24 DONNELL DOOLEY [facility] During your visit today, we recorded the following information about you: Jessica Middleton LPN 03/22/2024 9:56 AM Signed Sandy with [facility] called to request ed list and dx list for pt. Pt was identified with name and date of . Done. Jessica Middleton LPN Allergies As of Date: 03/22/2024 Noted Allergy Reaction AUGMENTIN (AMOXICILLIN-POT CLAVUL*12/23/2017 11 - Vomiting CODEINE 03/03/2016 8 - GI Upset 11 - Vomiting SHELLFISH CONTAINING PRODUCTS 03/03/2016 7 - Swelling 10 - Anaphylaxis 12 - Shortness of Breath 14 - Other: See Comments 4 - Hives Comments: No serious trouble with recent re-introduction of shellfish into diet. BACITRACIN 03/03/2016 9 - Itching LATEX 03/03/2016 2 - Rash WALNUT 01/07/2022 7 - Swelling Date Reviewed: 02/28/2024 Reviewed by: Sherron Warren, RN - Fully Assessed Reason for Visit: Release Of Medical Records [2017] Prescriptions as of 03/22/2024 - fluticasone propion-salmeterol 232-14 mcg/actuation - ACETAMINOPHEN ORAL Take by mouth as needed. - rivastigmine tartrate (EXELON) 1.5 mg capsule Take 1 capsule by mouth twice daily. - triamterene-hydroCHLOR Othiazide (DYAZIDE) 37.5-25 mg per capsule Take 1 capsule by mouth once daily. - meclizine (ANTIVERT) 25 mg tab Take 25 mg by mouth as needed. - calcium carbonate (TUMS ORAL) Take 1 tablet by mouth at bedtime as needed. - nystatin (MYCOSTATIN) 100,000 unit/mL suspension three times daily. - Cholecalciferol, Vitamin D3, 25 mcg (1,000 unit) cap Take 1,000 Units by mouth once daily. - VENTOLIN HFA 90 mcg/actuation inhaler Inhale 2 Puffs as instructed every 6 hours as needed for Wheezing/Shortness of Breath. - OXYGEN, HOME THERAPY, Inhale 3 L/min as instructed as directed. - tiotropium (SPIRIVA WITH HANDIHALER) 18 mcg inhalation capsule INHALE THE CONTENTS OF ONE CAPSULE VIA HANDIHALER ONCE DAILY - Zinc 50 mg tab Take 50 mg by mouth once daily. - ipratropium-albuterol (DUONEB) 0.5 mg-3 mg(2.5 mg base)/3 mL nebu Inhale 3 mL as instructed every 6 hours as needed (wheezing/shortness of breath). - CALCIUM ORAL Take 1 tablet by mouth once daily. - MAGNESIUM ORAL Take 1 tablet by mouth once daily. 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] Chronic bronchitis (HCC) [J42] 06/15/2022 Mixed hyperlipidemia [E78.2] 03/30/2017 History of breast cancer in female [Z85.3] 05/12/2017 03/24/2018 Meningioma (HCC) [D32.9] 03/16/2018 Meniere's disease [H81.09] MVP (mitral valve prolapse) [I34.1] 12/20/2020 Mild cognitive impairment [G31.84] 09/09/2021 Chronic respiratory failure with hypoxia (HCC) *06/15/2022 Atrial fibrillation (HCC) [I48.91] 06/15/2022 12/23/2022 Chest pain, unspecified [R07.9] 11/26/2022 06/28/2023 Diagnosed: 12/23/2022 Weakness [R53.1] 08/03/2022 06/28/2023 Diagnosed: 12/23/2022 Ulcer of toe of right foot, limited to breakdow*06/28/2023 01/14/2024 Encounter Status:Closed by JESSICA MIDDLETON on 03/22/24 Normal [facility]on 2024 [facility] Non-Invasive Vascula r [facility] Lower Extremity Arterial Physiology Study Bilateral/Complete Date of service/time: 03/21/2024 11:14:04 AM Name: MRS. MADISON LOFTON Date of : 1940 Age: 83 years Gender: F Clinical Indication Decreased pulses. TECHNIQUE -------- An arterial physiological examination was performed, including measurement of blood pressures using continuous wave Doppler and recording of plethysmographic with or without Doppler waveforms at the below-mentioned limb segments. FINDINGS -------- RIGHT SIDE AT REST Right Doppler Waveforms Dorsalis pedis: Monophasic. Post tibial: Monophasic. Right Pressures Brachial: 114 mmHg High thigh: 124 mmHg Low thigh: 108 mmHg Calf: 99 mmHg Ankle dorsalis pedis: 88 mmHg CARINE: 0.77 Partially non-compressible arteries. Ankle posterior tibial: 75 mmHg CARINE: 0.66 Digit: 49 mmHg Right PVR Waveforms High thigh: Normal. Low thigh: Normal. Calf: Moderately dampened. Ankle: Moderately dampened. Transmetatarsal: Moderately dampened. Digit: Moderately dampened. LEFT SIDE AT REST Left Doppler Waveforms Dorsalis pedis: Monophasic. Post tibial: Monophasic. Left Pressures Brachial: 109 mmHg High thigh: 115 mmHg Low thigh: 107 mmHg Calf: 109 mmHg Ankle dorsalis pedis: 255 mmHg CARINE: 2.24 Non-compressible arteries. Ankle posterior tibial: 106 mmHg CARINE: 0.93 Partially non-compressible arteries. Digit: 46 mmHg Left PVR Waveforms High thigh: Normal. Low thigh: Mildly dampened. Calf: Moderately dampened. Ankle: Moderately dampened. Transmetatarsal: Moderately dampened. Digit: Moderately dampened. IMPRESSION Compared to prior study of 05/05/2021, Dampened waveforms compared to previous. RIGHT SIDE Resting right ankle brachial index: 0.77 Partially non-compressible arteries, CARINE not accurate. Right toe brachial index: 0.43 Non-compressible vessels, results called by PVR tracings. Abnormal toe brachial index at rest is evidence of peripheral artery disease. Right ankle: Moderate disease at rest. Right distal superficial femoral and/or popliteal disease. Right infrapopliteal disease. Results called by tracings. LEFT SIDE Resting left ankle brachial index: 2.24 Non-compressible arteries, CARINE not accurate. Left toe brachial index: 0.40 Non-compressible vessels, results called by PVR tracings. Abnormal toe brachial index at rest is evidence of peripheral artery disease. Left ankle: Moderate disease at rest. Left distal superficial femoral and/or popliteal disease. Left infrapopliteal disease. Results called by tracings. Technologist: Eugenia Whelan RVT [facility] Ordering physician: DANIKA HELMS Interpreting physician: AMINA Hart DO Final CC [employer] [facility] Image : [id number] See Link below for Image [facility] (CHELSEA[facility] MADISON LOFTON ([id number]) 1940 F Date Time Provider Department 03/09/24 DONNELL DOOLEY During your visit today, we recorded the following information about you: Guera Roy RN 03/09/2024 9:18 AM Signed Ronda nurse with [facility] calls with patient update. Patient has a cough with sinus/chest congestion for the past 3-4 days. Lungs are clear except right lower lobe faint wheeze on expiration. Patient reports SOB with exertion. Patient has ventolin inhaler that is helpful. No chest pain or fever. Patient complained of body aches last night and tylenol prn was given. No complains this morning. Patient is COVID negative. Patient has OTC Claritin that was given for nasal symptoms. Patient doesn't have any prn orders for cough medication. Ronda reports that if provider would like a CXR they have the ability to do one there. Call back number is [phone]. SHANTELL Mitchell William J, MD 03/09/2024 11:18 AM Signed Ok for chest xray Can use robitussin dm 5 cc po q 8 hours prn cough Skye Payton MA 03/09/2024 11:44 AM Signed Call to Ronda and notified her of message below from PCP. Verbalized understanding. During call she asked if PCP wanted 2 or 3 view chest x-ray. Was able to send message to PCP and ask. PCP advised 3 view chest x-ray. Ronda was made aware of this. Skye Payton MA Allergies As of Date: 03/09/2024 Noted Allergy Reaction AUGMENTIN (AMOXICILLIN-POT CLAVUL*12/23/2017 11 - Vomiting CODEINE 03/03/2016 8 - GI Upset 11 - Vomiting SHELLFISH CONTAINING PRODUCTS 03/03/2016 7 - Swelling 10 - Anaphylaxis 12 - Shortness of Breath 14 - Other: See Comments 4 - Hives Comments: No serious trouble with recent re-introduction of shellfish into diet. BACITRACIN 03/03/2016 9 - Itching LATEX 03/03/2016 2 - Rash WALNUT 01/07/2022 7 - Swelling Date Reviewed: 02/28/2024 Reviewed by: Sherron Warren RN - Fully Assessed Reason for Visit: Patient Update [1234] Prescriptions as of 03/09/2024 - fluticasone propion-salmeterol 232-14 mcg/actuation - ACETAMINOPHEN ORAL Take by mouth as needed. - rivastigmine tartrate (EXELON) 1.5 mg capsule Take 1 capsule by mouth twice daily. - triamterene-hydroCHLOR Othiazide (DYAZIDE) 37.5-25 mg per capsule Take 1 capsule by mouth once daily. - meclizine (ANTIVERT) 25 mg tab Take 25 mg by mouth as needed. - calcium carbonate (TUMS ORAL) Take 1 tablet by mouth at bedtime as needed. - nystatin (MYCOSTATIN) 100,000 unit/mL suspension three times daily. - Cholecalciferol, Vitamin D3, 25 mcg (1,000 unit) cap Take 1,000 Units by mouth once daily. - VENTOLIN HFA 90 mcg/actuation inhaler Inhale 2 Puffs as instructed every 6 hours as needed for Wheezing/Shortness of Breath. - OXYGEN, HOME THERAPY, Inhale 3 L/min as instructed as directed. - tiotropium (SPIRIVA WITH HANDIHALER) 18 mcg inhalation capsule INHALE THE CONTENTS OF ONE CAPSULE VIA HANDIHALER ONCE DAILY - Zinc 50 mg tab Take 50 mg by mouth once daily. - ipratropium-albuterol (DUONEB) 0.5 mg-3 mg(2.5 mg base)/3 mL nebu Inhale 3 mL as instructed every 6 hours as needed (wheezing/shortness of breath). - CALCIUM ORAL Take 1 tablet by mouth once daily. - MAGNESIUM ORAL Take 1 tablet by mouth once daily. 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] Chronic bronchitis (HCC) [J42] 06/15/2022 Mixed hyperlipidemia [E78.2] 03/30/2017 History of breast cancer in female [Z85.3] 05/12/2017 03/24/2018 Meningioma (HCC) [D32.9] 03/16/2018 Meniere's disease [H81.09] MVP (mitral valve prolapse) [I34.1] 12/20/2020 Mild cognitive impairment [G31.84] 09/09/2021 Chronic respiratory failure with hypoxia (HCC) *06/15/2022 Atrial fibrillation (HCC) [I48.91] 06/15/2022 12/23/2022 Chest pain, unspecified [R07.9] 11/26/2022 06/28/2023 Diagnosed: 12/23/2022 Weakness [R53.1] 08/03/2022 06/28/2023 Diagnosed: 12/23/2022 Ulcer of toe of right foot, limited to breakdow*06/28/2023 01/14/2024 Encounter Status:[facility] MADISON LOFTON ([id number]) 1940 F Date Time Provider Department 03[facility]09[facility]24 [facility] During your visit today, we recorded the following information about you: Alejandrina Cooper RN 03/09/2024 4:54 PM Signed Ronda from [place] calling with results to chest x ray. Results show Slight left lower lobe infiltrate (Left Basilar infiltrate without any mass or fusion). Patient still has cough and other symptoms without fever. Pharmacy is [facility]. Please review and advise, SHANTELL Emmanuel Jacqueline A, APRN.MARKER MACHINE 03/09/2024 5:11 PM Signed Called patient and daughter answered. I let her know that mother does have a pneumonia. I will send an order of Zpak to her pharmacy. Not in distress and daughter says she has an inhaler and wears O2 at night. RX sent. No QT prolongation on last ECG. Renal function ok. Allergies As of Date: 03/09/2024 Noted Allergy Reaction AUGMENTIN (AMOXICILLIN-POT CLAVUL*12/23/2017 11 - Vomiting CODEINE 03/03/2016 8 - GI Upset 11 - Vomiting SHELLFISH CONTAINING PRODUCTS 03/03/2016 7 - Swelling 10 - Anaphylaxis 12 - Shortness of Breath 14 - Other: See Comments 4 - Hives Comments: No serious trouble with recent re-introduction of shellfish into diet. BACITRACIN 03/03/2016 9 - Itching LATEX 03/03/2016 2 - Rash WALNUT 01/07/2022 7 - Swelling Date Reviewed: 02/28/2024 Reviewed by: Sherron Warren RN - Fully Assessed Reason for Visit: Results [95] Primary Visit Diagnosis:Bacterial pneumonia [J15.9] Order(s):azithromycin (ZITHROMAX Z-ZAHEER) 250 mg tabletTake 2 tablets day one, then, 1 tablet daily until gone.Disp: 6 tabletRfl: 0 Prescriptions as of 03/09/2024 - azithromycin (ZITHROMAX Z-ZAHEER) 250 mg tablet Take 2 tablets day one, then, 1 tablet daily until gone. - fluticasone propion-salmeterol 232-14 mcg/actuation - ACETAMINOPHEN ORAL Take by mouth as needed. - rivastigmine tartrate (EXELON) 1.5 mg capsule Take 1 capsule by mouth twice daily. - triamterene-hydroCHLOR Othiazide (DYAZIDE) 37.5-25 mg per capsule Take 1 capsule by mouth once daily. - meclizine (ANTIVERT) 25 mg tab Take 25 mg by mouth as needed. - calcium carbonate (TUMS ORAL) Take 1 tablet by mouth at bedtime as needed. - nystatin (MYCOSTATIN) 100,000 unit/mL suspension three times daily. - Cholecalciferol, Vitamin D3, 25 mcg (1,000 unit) cap Take 1,000 Units by mouth once daily. - VENTOLIN HFA 90 mcg/actuation inhaler Inhale 2 Puffs as instructed every 6 hours as needed for Wheezing/Shortness of Breath. - OXYGEN, HOME THERAPY, Inhale 3 L/min as instructed as directed. - tiotropium (SPIRIVA WITH HANDIHALER) 18 mcg inhalation capsule INHALE THE CONTENTS OF ONE CAPSULE VIA HANDIHALER ONCE DAILY - Zinc 50 mg tab Take 50 mg by mouth once daily. - ipratropium-albuterol (DUONEB) 0.5 mg-3 mg(2.5 mg base)/3 mL nebu Inhale 3 mL as instructed every 6 hours as needed (wheezing/shortness of breath). - CALCIUM ORAL Take 1 tablet by mouth once daily. - MAGNESIUM ORAL Take 1 tablet by mouth once daily. 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] Chronic bronchitis (HCC) [J42] 06/15/2022 Mixed hyperlipidemia [E78.2] 03/30/2017 History of breast cancer in female [Z85.3] 05/12/2017 03/24/2018 Meningioma (HCC) [D32.9] 03/16/2018 Meniere's disease [H81.09] MVP (mitral valve prolapse) [I34.1] 12/20/2020 Mild cognitive impairment [G31.84] 09/09/2021 Chronic respiratory failure with hypoxia (HCC) *06/15/2022 Atrial fibrillation (HCC) [I48.91] 06/15/2022 12/23/2022 Chest pain, unspecified [R07.9] 11/26/2022 06/28/2023 Diagnosed: 12/23/2022 Weakness [R53.1] 08/03/2022 06/28/2023 Diagnosed: 12/23/2022 Ulcer of toe of right foot, limited to breakdow*06/28/2023 01/14/2024 Prescriptions ordered this encounter Disp Refills Start End AZITHROMYCIN 250 MG TABLET 6 ta* 0 03/09/2024 03/14/2024 Sig: Take 2 tablets day one, then, 1 tablet daily until gone. Encounter Status:Closed by AMBER GRIFFITH on 03/09/24 [facility] CNOVon 02-28-2024 CNOV Office Visit (PODIWS ) MADISON LOFTON ([id number]) 1940 F Date Time Provider Department 02/28/24 10:45 AM DANIKA HELMS During your visit today, we recorded the following information about you: Sherron Warren RN 02/28/2024 11:08 AM Signed AMB ROOMING INTAKE FLOWSHEET DATA Pain Pain Level: 8 Pain Location: Toe Description: Throbbing Duration Units: Months Frequency: Continuous Intervention/Comfort measure: Relaxation, Reposition Patient presents with: Right Foot - Established Patient, Follow Up, Pain Patient presents for right 5th toe pain. States that it has been bothering her for the last few months. Develops callus to 1st and 5th toe. GENOVEVA 10/29/22 Danika Helms 02/28/2024 11:08 AM Signed Chief Complaint: This 83 year old female who presents with chief complaint:right 5th toenail pain HPI Patient presents to clinic for evaluation of right foot Complains of right 5th toenail pain She states the toenail is severely thick and causes her pain She is here to discuss options. PAIN EVALUATION 02/24/2024 0810 02/28/2024 1010 Pain Level: 7 8 Pain Location: Toe Toe Description: Throbbing Throbbing Duration Units: -- Months Frequency: -- Continuous Intervention/Comfort measure: -- Relaxation;Reposition Hemoglobin A1C (%) Date Value 09/16/2017 5.5 PCP: Donnell Dooley MD PAST MEDICAL HISTORY Diagnosis Date Breast cancer (HCC) Left mastectomy. Right mastectomy. Bilateral reconstructions. No chemo/XRT. Cervical cancer (HCC) Remote. SOHEILA/BSO. No chemo or XRT. COPD (chronic obstructive pulmonary disease) (HCC) Gastroenteritis History of ileus Meniere's disease [facility]. Meningioma (HCC) Mitral valve regurgitation Non Hodgkin's lymphoma (HCC) About 14 years ago. No XRT, chemotherapy. Watchful waiting. Osteoporosis Current Outpatient Medications Medication Sig fluticasone propion-salmeterol 232-14 mcg/actuation ACETAMINOPHEN ORAL Take by mouth as needed. rivastigmine tartrate (EXELON) 1.5 mg capsule Take 1 capsule by mouth twice daily. triamterene-hydroCHLOR Othiazide (DYAZIDE) 37.5-25 mg per capsule Take 1 capsule by mouth once daily. meclizine (ANTIVERT) 25 mg tab Take 25 mg by mouth as needed. calcium carbonate (TUMS ORAL) Take 1 tablet by mouth at bedtime as needed. nystatin (MYCOSTATIN) 100,000 unit/mL suspension three times daily. Cholecalciferol, Vitamin D3, 25 mcg (1,000 unit) cap Take 1,000 Units by mouth once daily. VENTOLIN HFA 90 mcg/actuation inhaler Inhale 2 Puffs as instructed every 6 hours as needed for Wheezing/Shortness of Breath. OXYGEN, HOME THERAPY, Inhale 3 L/min as instructed as directed. tiotropium (SPIRIVA WITH HANDIHALER) 18 mcg inhalation capsule INHALE THE CONTENTS OF ONE CAPSULE VIA HANDIHALER ONCE DAILY Zinc 50 mg tab Take 50 mg by mouth once daily. ipratropium-albuterol (DUONEB) 0.5 mg-3 mg(2.5 mg base)/3 mL nebu Inhale 3 mL as instructed every 6 hours as needed (wheezing/shortness of breath). CALCIUM ORAL Take 1 tablet by mouth once daily. MAGNESIUM ORAL Take 1 tablet by mouth once daily. No current facility-administered medications for this visit. ALLERGIES Allergen Reactions Augmentin [Amoxicil* Vomiting Codeine GI Upset, Vomiting Shellfish Containin* Swelling, Anaphylaxis, Shortness of Breath, Other: See Comments, Hives No serious trouble with recent re-introduction of shellfish into diet. Bacitracin Itching Latex Rash Freeman Swelling PAST SURGICAL HISTORY Procedure Laterality Date BREAST RECONSTRUCTION CATARACT EXTRACTION HX Bilateral 2011 CATARACT SURGERY, COMPLEX COLONOSCOPY W/BIOPSY SINGLE/MULTIPLE 10/12/2016 [facility] DIAG AND/OR THERAP, NOT OB EGD TRANSORAL BIOPSY SINGLE/MULTIPLE 10/12/2016 EGD W/O [facility] SPEC VARICIES INJ N/A HEMORRHOIDECTOMY MASTECTOMY HX Bilateral 1982 PAST SURGICAL HISTORY OF Bronchial artery embolization, left lung PAST SURGICAL HISTORY OF 2002 Lymph node removal on left arm SLING OPER STRES INCONTINENCE TOT ABDOMINL HYSTERECTOMY 1984 FAMILY HISTORY Problem Relation Age of Onset Alzheimer's Disease Mother in her 80s. Aneurysm Father AAA at age 61. other (Chronic bronchitis.) Father other (Other) Brother Parkinson's vs Donavon's. age 61. other (Other) Other Meningioma: multiple cousins Social History Tobacco Use Smoking status: Former Current packs/day: 0.00 Average packs/day: 1 pack/day for 30.0 years (30.0 ttl pk-yrs) Types: Cigarettes Start date: 02/22/1969 Quit date: 02/22/1999 Years since quittin.0 Smokeless tobacco: Never Tobacco comments: Father smoked in childhood home. Vaping Use Vaping status: Never Used Substance Use Topics Alcohol use: Yes Alcohol/week: 4.0 standard drinks of alcohol Types: 4 Glasses of Wine (5oz) per week Comment: With dinner. Drug use: No REVIEW OF (more content not included)... [facility] MAD[facility] LOFTON ([id number]) 1940 F Date Time Provider Department 02/18/24 DONNELL DOOLEY [facility] During your visit today, we recorded the following information about you: Alejandrina Cooper RN 02/18/2024 4:37 PM Signed Tanika from [facility] calls and states that patient is complaining of lower abdomen pain. Patient completed antibiotics on 02/12 for UTI. Nursing did urine dip on patient, patient was positive for WBCs, Nitrites, Protein, and Ketones. Tanika is faxing over results to provider. [facility]. Please review and advise, SHANTELL Emmanuel William J, MD 02/18/2024 4:48 PM Signed Have them send for c and s. Rx sent An Barker MA 02/18/2024 5:03 PM Signed Tanika nurse, notified that antibiotic was called in and to obtain urine culture with sensitivity. She verbalizes understanding and is agreeable. An Barker MA February 18, 2024 5:03 PM Allergies As of Date: 02/18/2024 Noted Allergy Reaction AUGMENTIN (AMOXICILLIN-POT CLAVUL*12/23/2017 11 - Vomiting CODEINE 03/03/2016 8 - GI Upset 11 - Vomiting SHELLFISH CONTAINING PRODUCTS 03/03/2016 7 - Swelling 10 - Anaphylaxis 12 - Shortness of Breath 14 - Other: See Comments 4 - Hives Comments: No serious trouble with recent re-introduction of shellfish into diet. BACITRACIN 03/03/2016 9 - Itching LATEX 03/03/2016 2 - Rash WALNUT 01/07/2022 7 - Swelling Date Reviewed: 01/14/2024 Reviewed by: Olinda Knight MA - Fully Assessed Reason for Visit: Patient Update [1234] Order(s):nitrofurantoi n monohydrate and macrocrystal (MACROBID) 100 mg capsuleTake 1 capsule by mouth two times a day with meals for 5 days.Disp: 10 capsuleRfl: 0 Prescriptions as of 02/18/2024 - nitrofurantoin monohydrate and macrocrystal (MACROBID) 100 mg capsule Take 1 capsule by mouth two times a day with meals for 5 days. - fluticasone propion-salmeterol 232-14 mcg/actuation - ACETAMINOPHEN ORAL Take by mouth as needed. - rivastigmine tartrate (EXELON) 1.5 mg capsule Take 1 capsule by mouth twice daily. - triamterene-hydroCHLOR Othiazide (DYAZIDE) 37.5-25 mg per capsule Take 1 capsule by mouth once daily. - meclizine (ANTIVERT) 25 mg tab Take 25 mg by mouth as needed. - calcium carbonate (TUMS ORAL) Take 1 tablet by mouth at bedtime as needed. - nystatin (MYCOSTATIN) 100,000 unit/mL suspension three times daily. - Cholecalciferol, Vitamin D3, 25 mcg (1,000 unit) cap Take 1,000 Units by mouth once daily. - VENTOLIN HFA 90 mcg/actuation inhaler Inhale 2 Puffs as instructed every 6 hours as needed for Wheezing/Shortness of Breath. - OXYGEN, HOME THERAPY, Inhale 3 L/min as instructed as directed. - tiotropium (SPIRIVA WITH HANDIHALER) 18 mcg inhalation capsule INHALE THE CONTENTS OF ONE CAPSULE VIA HANDIHALER ONCE DAILY - Zinc 50 mg tab Take 50 mg by mouth once daily. - ipratropium-albuterol (DUONEB) 0.5 mg-3 mg(2.5 mg base)/3 mL nebu Inhale 3 mL as instructed every 6 hours as needed (wheezing/shortness of breath). - CALCIUM ORAL Take 1 tablet by mouth once daily. - MAGNESIUM ORAL Take 1 tablet by mouth once daily. 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] Chronic bronchitis (HCC) [J42] 06/15/2022 Mixed hyperlipidemia [E78.2] 03/30/2017 History of breast cancer in female [Z85.3] 05/12/2017 03/24/2018 Meningioma (HCC) [D32.9] 03/16/2018 Meniere's disease [H81.09] MVP (mitral valve prolapse) [I34.1] 12/20/2020 Mild cognitive impairment [G31.84] 09/09/2021 Chronic respiratory failure with hypoxia (HCC) *06/15/2022 Atrial fibrillation (HCC) [I48.91] 06/15/2022 12/23/2022 Chest pain, unspecified [R07.9] 11/26/2022 06/28/2023 Diagnosed: 12/23/2022 Weakness [R53.1] 08/03/2022 06/28/2023 Diagnosed: 12/23/2022 Ulcer of toe of right foot, limited to breakdow*06/28/2023 01/14/2024 Prescriptions ordered this encounter Disp Refills Start End NITROFURANTOIN MONOHYDRATE AND MACROCR* 10 c* 0 02/18/2024 02/23/2024 Route: ORAL Sig: Take 1 capsule by mouth two times a day with meals for 5 days. Encounter Status:Closed by DONNELL DOOLEY on 02/18/24 [facility] KIRSTYM[facility] ([id number]) 1940 F Date Time Provider Department 02/07/24 DONNELL DOOLEY [facility] During your visit today, we recorded the following information about you: Donnell Dooley MD 02/07/2024 7:58 PM Signed See sheet from Alejandrina Swan RN 02/11/2024 11:04 AM Signed Patient's daughter calls and states that patient has been on antibiotic for UTI for a couple of days. Daughter reports that patient is still out of it. Daughter asking if there is anything else that can be prescribed? Please review and advise, SHANTELL Emmanuel William J, MD 02/11/2024 11:05 AM Signed If still confused, to Jennifer Pérez LPN 02/11/2024 11:40 AM Signed Left message for Johanna to call and speak with triage. I did pull culture report from [facility] so we are sure the ATB she is on should help. If not helping that is why she needs ER. Remberto Bob, SHANTELL 02/11/2024 12:08 PM Signed Johanna returned call and given provider's message below with verbalized understanding. Johanna agreeable. Allergies As of Date: 02/07/2024 Noted Allergy Reaction AUGMENTIN (AMOXICILLIN-POT CLAVUL*12/23/2017 11 - Vomiting CODEINE 03/03/2016 8 - GI Upset 11 - Vomiting SHELLFISH CONTAINING PRODUCTS 03/03/2016 7 - Swelling 10 - Anaphylaxis 12 - Shortness of Breath 14 - Other: See Comments 4 - Hives Comments: No serious trouble with recent re-introduction of shellfish into diet. BACITRACIN 03/03/2016 9 - Itching LATEX 03/03/2016 2 - Rash WALNUT 01/07/2022 7 - Swelling Date Reviewed: 01/14/2024 Reviewed by: Olinda Knight MA - Fully Assessed Reason for Visit: Patient Update [1234] Order(s):nitrofurantoi n monohydrate and macrocrystal (MACROBID) 100 mg capsuleTake 1 capsule by mouth two times a day with meals for 5 days.Disp: 10 capsuleRfl: 0 Prescriptions as of 02/11/2024 - nitrofurantoin monohydrate and macrocrystal (MACROBID) 100 mg capsule Take 1 capsule by mouth two times a day with meals for 5 days. - fluticasone propion-salmeterol 232-14 mcg/actuation - ACETAMINOPHEN ORAL Take by mouth as needed. - rivastigmine tartrate (EXELON) 1.5 mg capsule Take 1 capsule by mouth twice daily. - triamterene-hydroCHLOR Othiazide (DYAZIDE) 37.5-25 mg per capsule Take 1 capsule by mouth once daily. - meclizine (ANTIVERT) 25 mg tab Take 25 mg by mouth as needed. - calcium carbonate (TUMS ORAL) Take 1 tablet by mouth at bedtime as needed. - nystatin (MYCOSTATIN) 100,000 unit/mL suspension three times daily. - Cholecalciferol, Vitamin D3, 25 mcg (1,000 unit) cap Take 1,000 Units by mouth once daily. - VENTOLIN HFA 90 mcg/actuation inhaler Inhale 2 Puffs as instructed every 6 hours as needed for Wheezing/Shortness of Breath. - OXYGEN, HOME THERAPY, Inhale 3 L/min as instructed as directed. - tiotropium (SPIRIVA WITH HANDIHALER) 18 mcg inhalation capsule INHALE THE CONTENTS OF ONE CAPSULE VIA HANDIHALER ONCE DAILY - Zinc 50 mg tab Take 50 mg by mouth once daily. - ipratropium-albuterol (DUONEB) 0.5 mg-3 mg(2.5 mg base)/3 mL nebu Inhale 3 mL as instructed every 6 hours as needed (wheezing/shortness of breath). - CALCIUM ORAL Take 1 tablet by mouth once daily. - MAGNESIUM ORAL Take 1 tablet by mouth once daily. Problem List As Of Date 02/07/2024 Noted Resolved Personal history of CLL (chronic lymphocytic le*05/11/2016 Epigastric pain [R10.13] 05/11/2016 12/20/2020 Emphysema of lung (HCC) [J43.9] 06/05/2016 History of breast cancer [Z85.3] VHD (valvular heart disease) [I38] Osteoporosis [M81.0] Small B-cell lymphoma (HCC) [C83.00] Chronic bronchitis (HCC) [J42] 06/15/2022 Mixed hyperlipidemia [E78.2] 03/30/2017 History of breast cancer in female [Z85.3] 05/12/2017 03/24/2018 Meningioma (HCC) [D32.9] 03/16/2018 Meniere's disease [H81.09] MVP (mitral valve prolapse) [I34.1] 12/20/2020 Mild cognitive impairment [G31.84] 09/09/2021 Chronic respiratory failure with hypoxia (HCC) *06/15/2022 Atrial fibrillation (HCC) [I48.91] 06/15/2022 12/23/2022 Chest pain, unspecified [R07.9] 11/26/2022 06/28/2023 Diagnosed: 12/23/2022 Weakness [R53.1] 08/03/2022 06/28/2023 Diagnosed: 12/23/2022 Ulcer of toe of right foot, limited to breakdow*06/28/2023 01/14/2024 Prescriptions ordered this encounter Disp Refills Start End NITROFURANTOIN MONOHYDRATE AND MACROCR* 10 c* 0 02/07/2024 02/12/2024 Route: ORAL Sig: Take 1 capsule by mouth two times a day with meals for 5 days. Encounter Status:Closed by Remberto BOB on 02/11/24 [facility] 01-14-2024 CNOV Office Visit (FAMPWS ) MADISON LOFTON ([id number]) 1940 F Date Time Provider Department 01/14/24 2:20 PM DONNELL DOOLEY During your visit today, we recorded the following information about you: Pulse Blood pressure Weight Height 59/minute 118/66 45.9 kg 1.499 m Donnell Dooley MD 01/14/2024 2:48 PM Signed Patient presents with: 6 Month Exam HPI: Patient presents today for office visit for follow up. Here with daughter today. Mentions bruising all over. Is on asa. No gi bleeding or hematuria. She was using it for primary prevention. Discussed stopping. Mostly on her hands. Follows with Hem/Onc. Sees Pulm. Using her oxygen at night. Breathing has been stable. HTN: Denies chest pain Some shortness of breath. Hx of COPD. Uses inhalers. Occ headaches Does have dizziness. Hx of Meniere's. Occ palpitations No syncope Occ pedal edema No falls. Short term memory is worse. Daughter thinks is worse since passing of her dad. Emotinally ffels she is doing ok. Note was copied and pasted, without alteration from previous ov: Has been seeing Yvonne for venous stasis ulcer. Is doing much better. Wound care following at facility. Is now almost healed. Has a very small scab in the area. Saw Dr Triana recently. Sees Dr Antunez in a month. Still sees Dr Mendosa for meniere's. Had recent dizziness. Uses meclizine prn. Has not been back to see cardiology. Last echo showed 1-2 + TR. They prefer we wait to repeat an echo. No chest pain. Breathing is stable. No current edema. No palpitations. No falls. Last MRI was 2021 for her meningioma. Will consider repeat in one year. Still using her oxygen at night. Memory is about the same. Some short term memory issues. Physically feels well. Appetite is ok. Latest Ref Rng 01/10/2024 WBC 3.70 - 11.00 k/uL 11.27 (H) RBC 3.90 - 5.20 m/uL 4.31 Hemoglobin 11.5 - 15.5 g/dL 12.9 Hematocrit 36.0 - 46.0 % 40.4 MCV 80.0 - 100.0 fL 93.7 MCH 26.0 - 34.0 pg 29.9 MCHC 30.5 - 36.0 g/dL 31.9 RDW-CV 11.5 - 15.0 % 14.4 Platelet Count 150 - 400 k/uL 173 MPV 9.0 - 12.7 fL 12.1 Neut% % 56.3 Abs Neut (ANC) 1.45 - 7.50 k/uL 6.33 Lymph% % 31.1 Abs Lymph 1.00 - 4.00 k/uL 3.51 Ravalli% % 7.6 Abs Ravalli <0.87 k/uL 0.86 Eosin% % 3.7 Abs Eosin <0.46 k/uL 0.42 Baso% % 0.8 Abs Baso <0.11 k/uL 0.09 Immature Gran % % 0.5 IMMATURE GRANS (ABS) <0.10 k/uL 0.06 NRBC /100 WBC 0.0 Absolute nRBC <0.01 k/uL <0.01 DTYPE Auto Protein, Total 6.3 - 8.0 g/dL 5.8 (L) Albumin 3.9 - 4.9 g/dL 3.8 (L) Calcium 8.5 - 10.2 mg/dL 9.9 Bilirubin, Total 0.2 - 1.3 mg/dL 0.4 Alkaline Phosphatase 34 - 123 U/L 93 AST 13 - 35 U/L 25 ALT 7 - 38 U/L 18 Glucose 74 - 99 mg/dL 90 BUN 7 - 21 mg/dL 23 (H) Creatinine 0.58 - 0.96 mg/dL 0.68 Sodium 136 - 144 mmol/L 146 (H) Potassium 3.7 - 5.1 mmol/L 4.4 Chloride 98 - 107 mmol/L 106 CO2 22 - 30 mmol/L 31 (H) Anion Gap 8 - 15 mmol/L 9 eGFR >=60 mL/min/1.73m? 88 Cholesterol, Total <200 mg/dL 210 (H) Triglyceride <150 mg/dL 85 HDL Cholesterol >39 mg/dL 83 Non HDL Cholesterol <130 mg/dL 127 Fasting Time hrs 12 VLDL Cholesterol <30 mg/dL 17 TC:HDL Ratio <5.10 2.53 LDL Cholesterol <100 mg/dL 110 (H) LDL:HDL Ratio <2.54 1.33 MEDICATIONS: Current Outpatient Medications Medication Sig aspirin, enteric coated (ASPIRIN, ENTERIC COATED) 81 mg EC tablet Take 81 mg by mouth two times a day. fluticasone propion-salmeterol 232-14 mcg/actuation meloxicam (MOBIC) 7.5 mg tablet Take 7.5 mg by mouth once daily. ACETAMINOPHEN ORAL Take by mouth as needed. rivastigmine tartrate (EXELON) 1.5 mg capsule Take 1 capsule by mouth twice daily. triamterene-hydroCHLOR Othiazide (DYAZIDE) 37.5-25 mg per capsule Take 1 capsule by mouth once daily. meclizine (ANTIVERT) 25 mg tab Take 25 mg by mouth as needed. calcium carbonate (TUMS ORAL) Take 1 tablet by mouth at bedtime as needed. nystatin (MYCOSTATIN) 100,000 unit/mL suspension three times daily. Cholecalciferol, Vitamin D3, 25 mcg (1,000 unit) cap Take 1,000 Units by mouth once daily. VENTOLIN HFA 90 mcg/actuation inhaler Inhale 2 Puffs as instructed every 6 hours as needed for Wheezing/Shortness of Breath. OXYGEN, HOME THERAPY, Inhale 3 L/min as instructed as directed. tiotropium (SPIRIVA WITH HANDIHALER) 18 mcg inhalation capsule INHALE THE CONTENTS OF ONE CAPSULE VIA HANDIHALER ONCE DAILY Zinc 50 mg tab Take 50 mg by mouth once daily. ipratropium-albuterol (DUONEB) 0.5 mg-3 mg(2.5 mg base)/3 mL nebu Inhale 3 mL as instructed every 6 hours as needed (wheezing/shortness of breath). CALCIUM ORAL Take 1 tablet by mouth once daily. MAGNESIUM ORAL Take 1 tablet by mouth once daily. No current facility-administered medications for this visit. ALLERGIES: ALLERGIES Allergen Reactions Augmentin [Amoxicil* Vomiting Codeine GI Upset, Vomiting Shellfish (more content not included)... Normal [facility] Pulmonary Visit Reporton Pulmonary Visit Report [facility] [place] [address] [place] [address] OFFICE VISIT Date of Service: 01/12/24 MR#: [id number] Acct: [id number] Name: MADISON LOFTON Rep #: [id number] 0 : 1940 Provider: NEFTALI Damian Age/Sex: 83/F Location: [facility] [place] Status: Signed Assessment and Plan Assessment and Plan (1) COPD (chronic obstructive pulmonary disease): Status: Chronic Qualifiers: COPD type: unspecified COPD Qualified Code(s): J44.9 - Chronic obstructive pulmonary disease, unspecified Plan: Stable, she does not appear to be an exacerbation of COPD today. No need for prednisone or antibiotic. Continue current maintenance medication, currently on triple therapy with use of air duo and Spiriva HandiHaler. No additional testing at this time. Contact the office for any new or worsening symptoms. An acute visit and typically be arranged within 1-2 days. Follow-up in 1 year. (2) Oral thrush: Status: Acute Plan: Recurrent. Treating with fluconazole 100 mg daily x 7 days. Medications: New fluconazole 100 mg PO QDAY 7 tabs 0RF Refilled fluticasone propion-salmeterol 232-14 mcg/actuation (AirDuo RespiClick) 1 inh inhalation Q12H 1 ea 11RF Ventolin HFA 90 mcg/actuation (albuterol sulfate) 2 puffs inhalation Q4H PRN 3 device 3RF shortness of breath or wheezing NS tiotropium bromide 18 mcg inhalation DAILY 3 ea 3RF copd Discontinued fluconazole Discontinued Reason: Order Completed 100 mg PO QDAY 3 tabs 0RF HPI 6 M FU Chief Complaint: Routine follow-up HPI Comments Details: This patient presents to the office today for follow-up of her COPD with chronic hypoxic respiratory failure. She is ambulatory, currently on room air and accompanied today by her daughter. She has not recently been seen in the ED or urgent care for any respiratory illness. She has not required any antibiotics or prednisone for any breathing problems. She is compliant with use of air duo twice daily. She does report rinsing her mouth out after each use. She denies any medication side effects such as sore throat or thrush. She is compliant with Spiriva HandiHaler daily. She has not recently needed to use the Tessalon Perles. She is using her albuterol rescue inhaler a couple times per week. She does have Shortness of breath on exertion occasionally. Currently she denies any cough, sputum production or hemoptysis. She has occasional wheezing on exertion, usually helped with the use of the albuterol. She denies any chest tightness, chest pain or palpitations. She also denies any fever, chills or body aches. She is compliant with supplemental oxygen with sleep. Intake Vital Signs 02/16/23 08:40 01/12/24 07:36 Height 5 ft 1.02 in 5 ft 1.02 in Weight: 94 lb 8 oz 100 lb BMI 17.8 18.8 BP 117/78 140/81 H Blood Pressure Location Lt brachial Lt brachial Position Sitting Sitting Respiration 16 16 Pulse 70 78 Pulse Source Monitor Monitor Temp 98.4 F 97.6 F L Temperature Source Temporal Artery Tympanic Pulse Oximetry (%) 97 93 Oxygen Delivery Method room air room air Intake Visit Reasons: 6 M FU [employer] Required: No DME Vendor: [employer] Accompanied by: Daughter Is patient in pain?: No Allergies shellfish derived Allergy (Severe, Verified 01/12/24 12:51) Anaphylaxis bacitracin Allergy (Verified 01/12/24 12:51) Rash codeine Allergy (Verified 01/12/24 12:51) Rash latex Allergy (Verified 01/12/24 12:51) IF PT USES LATEX GLOVES GETS RASH walnut Allergy (Verified 01/12/24 12:51) Swelling amoxicillin (From Augmentin) Adverse Reaction (Mild, Verified 01/12/24 12:51) Vomiting clavulanic acid (From Augmentin) Adverse Reaction (Mild, Verified 01/12/24 12:51) Vomiting Medications ???Medication ???Instructions ???Recorded ???Confirmed ???Type triamterene 37.5 1 tab PO DAILY bp 04/19/19 01/12/24 History mg-hydrochlorothiazide 25 mg tablet lidocaine 5 % topical patch 1 patch topical DAILY #15 ea 09/15/21 01/12/24 Rx (Lidoderm) meclizine 25 mg chewable tablet 25 mg PO BID PRN vertigo #20 tabs 04/15/22 01/12/24 Rx (Antivert) lidocaine 5 % topical patch 1 patch topical DAILY PRN pain #15 11/18/22 01/12/24 Rx (Lidoderm) ea Ventolin HFA 90 mcg/actuation 2 puff inhalation Q4H PRN 01/12/24 01/12/24 Rx aerosol inhaler (albuterol sulfate) shortness of breath or wheezing #3 device acetaminophen 325 mg capsule 650 mg PO Q4H PRN 01/12/24 01/12/24 History aspirin 81 mg tablet,delayed 81 mg PO QDAY 01/12/24 01/12/24 History release (Adult Aspirin Regimen) fluconazole 100 mg tablet 100 mg PO QDAY #7 tabs 01/12/24 Rx fluticasone 232 mcg-salmeterol 14 1 inh inhalation Q12H #1 ea 01/12/24 01/12/24 Rx mcg/actuation breath activated powdr (AirDuo RespiClick) lo (more content not included)... Normal [facility] CBC W Auto Differential pane l (Bld)on 01-10-2024 Basophils (Bld) [#/Vol] 0.09 10*3/uL Normal <0.11 [facility] Comment on above: Order Comment: Speci men Type: BLOOD SPECIMENOrdering Facility: [facility] Address: [address] [place] [address] Performed By: #### 5 7021-8 ####[facility] LABCLIA [id number] [place] [address] [place] Basophils/100 WBC (Bld) 0.8 % Normal [facility] Comment on above: Order Comment: Speci men Type: BLOOD SPECIMENOrdering Facility: [facility] Address: [address] [place] [address] Performed By: #### 5 7021-8 ####[facility] LABCLIA [id number] [place] [address] [place] Differential cell count method Nom (Bld) Auto Normal [facility] Comment on above: Order Comment: Speci men Type: BLOOD SPECIMENOrdering Facility: [facility] Address: [address] [place] [address] Performed By: #### 5 7021-8 ####[facility] LABCLIA [id number] [place] [address] [place] Eosinophils (Bld) [#/Vol] 0.42 10*3/uL Normal <0.46 [facility] Comment on above: Order Comment: Speci men Type: BLOOD SPECIMENOrdering Facility: [facility] Address: [address] [place] [address] Performed By: #### 5 7021-8 ####[facility] LABCLIA [id number] [place] [address] [place] Eosinophils/100 WBC (Bld) 3.7 % Normal [facility] Comment on above: Order Comment: Speci men Type: BLOOD SPECIMENOrdering Facility: [facility] Address: [address] [place] [address] Performed By: #### 5 7021-8 ####[facility] LABIA [id number] [place] [address] [place] Erythrocyte distribution width (RBC) [Ratio] 14.4 % Normal 11.5-15.0 [facility] Comment on above: Order Comment: Speci men Type: BLOOD SPECIMENOrdering Facility: [facility] Address: [address] [place] [address] Performed By: #### 5 7021-8 ####[facility] LABIA [id number] [place] [address] [place] Hematocrit (Bld) [Volume fraction] 40.4 % Normal 36.0-46.0 [facility] Comment on above: Order Comment: Speci men Type: BLOOD SPECIMENOrdering Facility: [facility] Address: [address] [place] [address] Performed By: #### 5 7021-8 ####[facility] LABIA [id number] [place] [address] [place] Hemoglobin (Bld) [Mass/Vol] 12.9 g/dL Normal 11.5-15.5 [facility] Comment on above: Order Comment: Speci men Type: BLOOD SPECIMENOrdering Facility: [facility] Address: [address] [place] [address] Performed By: #### 5 7021-8 ####[facility] LABCLIA [id number] [place] [address] [place] Immature granulocytes (Bld) [#/Vol] 0.06 10*3/uL Normal <0.10 [facility] Comment on above: Order Comment: Speci men Type: BLOOD SPECIMENOrdering Facility: [facility] Address: [address] [place] [address] Performed By: #### 5 7021-8 ####[facility] LABCLIA [id number] [address] [place] Immature granulocytes/100 WBC (Bld) 0.5 % Normal [facility] Comment on above: Order Comment: Speci men Type: BLOOD SPECIMENOrdering Facility: [facility] Address: [address] [place] [address] Performed By: #### 5 7021-8 ####[facility] LABCLIA [id number] [place] [address] [place] Lymphocytes (Bld) [#/Vol] 3.51 10*3/uL Normal 1.00-4.00 [facility] Comment on above: Order Comment: Speci men Type: BLOOD SPECIMENOrdering Facility: [facility] Address: [address] [place] [address] Performed By: #### 5 7021-8 ####[facility] LABCLIA [id number] [place] [address] [place] Lymphocytes/100 WBC (Bld) 31.1 % Normal [facility] Comment on above: Order Comment: Speci men Type: BLOOD SPECIMENOrdering Facility: [facility] Address: [address] [place] [address] Performed By: #### 5 7021-8 ####[facility] LABCLIA [id number] [place] [address] [place] MCH (RBC) [Entitic mass] 29.9 pg Normal 26.0-34.0 [facility] Comment on above: Order Comment: Speci men Type: BLOOD SPECIMENOrdering Facility: [facility] Address: [address] [place] [address] Performed By: #### 5 7021-8 ####[facility] LABCLIA [id number] [place] [address] [place] MCHC (RBC) [Mass/Vol] 31.9 g/dL Normal 30.5-36.0 [facility] Comment on above: Order Comment: Speci men Type: BLOOD SPECIMENOrdering Facility: [facility] Address: [address] [place] [address] Performed By: #### 5 7021-8 ####[facility] LABCLIA [id number] [place] [address] [place] MCV (RBC) [Entitic vol] 93.7 fL Normal 80.0-100.0 [facility] Comment on above: Order Comment: Speci men Type: BLOOD SPECIMENOrdering Facility: [facility] Address: [address] [place] [address] Performed By: #### 5 7021-8 ####[facility] LABCLIA [id number] [place] [address] [place] Monocytes (Bld) [#/Vol] 0.86 10*3/uL Normal <0.87 [facility] Comment on above: Order Comment: Speci men Type: BLOOD SPECIMENOrdering Facility: [facility] Address: [address] [place] [address] Performed By: #### 5 7021-8 ####[facility] LABCLIA [id number] [address] [place] Monocytes/100 WBC (Bld) 7.6 % Normal [facility] Comment on above: Order Comment: Speci men Type: BLOOD SPECIMENOrdering Facility: [facility] Address: [address] [place] [address] Performed By: #### 5 7021-8 ####[facility] LABCLIA [id number] [place] [address] [place] Neutrophils (Bld) [#/Vol] 6.33 10*3/uL Normal 1.45-7.50 [facility] Comment on above: Order Comment: Speci men Type: BLOOD SPECIMENOrdering Facility: [facility] Address: [address] [place] [address] Performed By: #### 5 7021-8 ####[facility] LABCLIA [id number] [place] [address] [place] Neutrophils/100 WBC (Bld) 56.3 % Normal [facility] Comment on above: Order Comment: Speci men Type: BLOOD SPECIMENOrdering Facility: [facility] Address: [address] [place] [address] Performed By: #### 5 7021-8 ####[facility] LABCLIA [id number] [place] [address] [place] Nucleated RBC (Bld) [#/Vol] 10*3/uL Normal <0.01 [facility] Comment on above: Order Comment: Speci men Type: BLOOD SPECIMENOrdering Facility: [facility] Address: [address] [place] [address] Performed By: #### 5 7021-8 ####[facility] LABCLIA [id number] [place] [address] [place] Nucleated RBC/100 WBC (Bld) [Ratio] 0.0 /100 WBC Normal [facility] Comment on above: Order Comment: Speci men Type: BLOOD SPECIMENOrdering Facility: [facility] Address: [address] [place] [address] Performed By: #### 5 7021-8 ####[facility] LABCLIA [id number] [place] [address] [place] Platelet mean volume (Bld) [Entitic vol] 12.1 fL Normal 9.0-12.7 [facility] Comment on above: Order Comment: Speci men Type: BLOOD SPECIMENOrdering Facility: [facility] Address: [address] [place] [address] Performed By: #### 5 7021-8 ####[facility] LABCLIA [id number] [place] [address] [place] Platelets (Bld) [#/Vol] 173 10*3/uL Normal 150-400 [facility] Comment on above: Order Comment: Speci men Type: BLOOD SPECIMENOrdering Facility: [facility] Address: [address] [place] [address] Performed By: #### 5 7021-8 ####[facility] LABCLIA [id number] [place] [address] [place] RBC (Bld) [#/Vol] 4.31 10*6/uL Normal 3.90-5.20 [facility] Comment on above: Order Comment: Speci men Type: BLOOD SPECIMENOrdering Facility: [facility] Address: [address] [place] [address] Performed By: #### 5 7021-8 ####[facility] LABIA [id number] [place] [address] [place] WBC (Bld) [#/Vol] 11.27 10*3/uL High 3.70-11.00 [facility] Comment on above: Order Comment: Speci men Type: BLOOD SPECIMENOrdering Facility: [facility] Address: [address] [place] [address] Performed By: #### 5 7021-8 ####[facility] LABCLIA [id number] [place] [address] [place] Comprehensive metabolic 2000 panelon 01-10-2024 Albumin [Mass/Vol] 3.8 g/dL Low 3.9-4.9 [facility] Comment on above: Order Comment: Speci men Type: BLOOD SPECIMENOrdering Facility: [facility] Address: [address] [place] [id number] Performed By: #### 2 4331-1, ####[facility] LABCLIA [id number] [facility] [place] [address] [place] ALP [Catalytic activity/Vol] 93 U/L Normal 34-123 [facility] Comment on above: Order Comment: Speci men Type: BLOOD SPECIMENOrdering Facility: [facility] Address: [address] [place] [address] Performed By: #### 2 4331-1, ####[facility] LABCLIA [id number] [place] [address] [place] ALT [Catalytic activity/Vol] 18 U/L Normal 7-38 [facility] Comment on above: Order Comment: Speci men Type: BLOOD SPECIMENOrdering Facility: [facility] Address: [address] [place] [address] Performed By: #### 2 4331-1, ####[facility] LABCLIA [id number] [place] [address] [place] Anion gap [Moles/Vol] 9 mmol/L Normal 8-15 [facility] Comment on above: Order Comment: Speci men Type: BLOOD SPECIMENOrdering Facility: [facility] Address: [address] [place] [address] Performed By: #### 2 4331-1, ####[facility] LABCLIA [id number] [place] [address] [place] AST [Catalytic activity/Vol] 25 U/L Normal 13-35 [facility] Comment on above: Order Comment: Speci men Type: BLOOD SPECIMENOrdering Facility: [facility] Address: [address] [place] [address] Performed By: #### 2 4331-1, ####[facility] LABCLIA [id number] [address] [address] [place] Bilirubin [Mass/Vol] 0.4 mg/dL Normal 0.2-1.3 [facility] Comment on above: Order Comment: Speci men Type: BLOOD SPECIMENOrdering Facility: [facility] Address: [address] [place] [address] Performed By: #### 2 4331-, ####[facility] LABCLIA [id number] [place] [address] [place] Calcium [Mass/Vol] 9.9 mg/dL Normal 8.5-10.2 [facility] Comment on above: Order Comment: Speci men Type: BLOOD SPECIMENOrdering Facility: [facility] Address: [address] [place] [address] Performed By: #### 2 4331-, ####[facility] LABCLIA [id number] [place] [address] [place] Chloride [Moles/Vol] 106 mmol/L Normal 98-107 [facility] Comment on above: Order Comment: Speci men Type: BLOOD SPECIMENOrdering Facility: [facility] Address: [address] [place], [place] [address] Performed By: #### 2 4331-, ####[facility] LABCLIA [id number] [address] [address] [place] CO2 [Moles/Vol] 31 mmol/L High 22-30 [facility] Comment on above: Order Comment: Speci men Type: BLOOD SPECIMENOrdering Facility: [facility] Address: [address] [place], [place] [address] Performed By: #### 2 4331-1, 70999-9 ####[facility] LABCLIA [id number] [place] [address] [place] Creatinine [Mass/Vol] 0.68 mg/dL Normal 0.58-0.96 [facility] Comment on above: Order Comment: Cindy michelle Type: BLOOD SPECIMENOrdering Facility: [facility] Address: [address] [place] [address] Performed By: #### 2 4331-1, 24107-3 ####[facility] [id number] [place] [address] [facility] [place] Creatinine and Glomerular filtration rate.predicted panel (S/P/Bld) 88 mL/min/1.73m??? Normal >=60 [facility] Comment on above: Order Comment: Cindy michelle Type: BLOOD SPECIMENOrdering Facility: [facility] Address: [address] [place] [address] Result Comment: Hailey mated Glomerular Filtration Rate (eGFR) is calculated using the 2020 CKD-EPI creatinine equation. This equation utilizes serum creatinine, sex, and age as parameters. The creatinine assay has traceable calibration to isotope dilution-mass spectrometry. Refer to KDIGO guidelines for clinical interpretation. In patients with unstable renal function, e.g. those with acute kidney injury, the eGFR may not accurately reflect actual GFR. Performed By: #### 2 4331-1, 54477-9 ####[facility] [id number] [place] [address] [place] Glucose [Mass/Vol] 90 mg/dL Normal 74-99 [facility] Comment on above: Order Comment: Cindy miguel angel Type: BLOOD SPECIMENOrdering Facility: [facility] Address: [address] [place] [address] Result Comment: The [place] Diabetes Association (ADA) provides guidance for cutoff values for fasting glucose and random glucose. The ADA defines fasting as no caloric intake for at least 8 hours. Fasting plasma glucose results between 100 to 125 [...] Standards of Medical Care in Diabetes 2016, [place] [employer] Association. Diabetes Care. 2016.39(Suppl 1). Performed By: #### 2 4331-1, ####[facility] LABCLIA [id number] [place] [address] [place] Potassium [Moles/Vol] 4.4 mmol/L Normal 3.7-5.1 [facility] Comment on above: Order Comment: Speci men Type: BLOOD SPECIMENOrdering Facility: [facility] Address: [address] [place] [address] Performed By: #### 2 4331-, ####[facility] LABCLIA [id number] [place] [address] [place] Protein [Mass/Vol] 5.8 g/dL Low 6.3-8.0 [facility] Comment on above: Order Comment: Speci men Type: BLOOD SPECIMENOrdering Facility: [facility] Address: [address] [place] [address] Performed By: #### 2 433-, ####[facility] LABCLIA [id number] [place] [address] [place] Sodium [Moles/Vol] 146 mmol/L High 136-144 [facility] Comment on above: Order Comment: Speci men Type: BLOOD SPECIMENOrdering Facility: [facility] Address: [address] [place] [address] Performed By: #### 2 4331-, ####[facility] LABCLIA [id number] [place] [id number] [place] Urea nitrogen [Mass/Vol] 23 mg/dL High 7-21 [facility] Comment on above: Order Comment: Speci men Type: BLOOD SPECIMENOrdering Facility: [facility] Address: [address] [place] [address] Performed By: #### 2 4331-1, 54858-3 ####[facility] LABCLIA [id number] [place] [address] [place] Lipid 1996 panelon 4 Cholesterol [Mass/Vol] 210 mg/dL High <200 [facility] Comment on above: Order Comment: Speci men Type: BLOOD SPECIMENOrdering Facility: [facility] Address: [address] [place] [address] Result Comment: <200 mg/dL, Desirable 200-239 mg/dL, Borderline high >239 mg/dL, High Performed By: #### 2 4331-1, ####[facility] LABCLIA [id number] [address] [place] Cholesterol in HDL [Mass/Vol] 83 mg/dL Normal >39 [facility] Comment on above: Order Comment: Speci men Type: BLOOD SPECIMENOrdering Facility: [facility] Address: [address] [place] [address] Result Comment: 40-5 9 mg/dL, Acceptable >59 mg/dL, High: Negative risk factor for coronary heart disease <40 mg/dL, Low: Positive risk factor for coronary heart disease Performed By: #### 2 4331-1, 66422-4 ####[facility] LABCLIA [id number] [address] [place] Cholesterol in LDL [Mass/Vol] 110 mg/dL High <100 [facility] Comment on above: Order Comment: Speci men Type: BLOOD SPECIMENOrdering Facility: [facility] Address: [address] [place] [address] Result Comment: <100 mg/dL, Optimal 100-129 mg/dL, Near optimal/above optimal 130-159 mg/dL, Borderline high 160-189 mg/dL, High >189 mg/dL, Very high Secondary prevention optimal LDL Cholesterol levels are recommended to be < 70 mg/dL Performed By: #### 2 4331-1, 26852-2 ####[facility] LABCLIA [id number] [address] [place] Cholesterol in LDL/Cholesterol in HDL [Mass ratio] 1.33 {ratio} Normal <2.54 [facility] Comment on above: Order Comment: Speci men Type: BLOOD SPECIMENOrdering Facility: [facility] Address: [address] [place] [address] Result Comment: Refe rence: 1. National Cholesterol Education Program ATP III Guideline At-A-Glance Quick Desk Reference: National Heart, Lung, and Blood [place]. National Institutes of Health. 2001: NIH Publication No. 01-3305. 2. An International Atherosclerosis Society position paper: global recommendations for the management of dyslipidemia: executive summary, Atherosclerosis. 2014: 232(2):410-413. Performed By: #### 2 4331-, 89894-9 ####[facility] LABCLIA [id number] [place] [address] [place] Cholesterol in VLDL [Mass/Vol] 17 mg/dL Normal <30 [facility] Comment on above: Order Comment: Speci men Type: BLOOD SPECIMENOrdering Facility: [facility] Address: [address] [place] [address] Performed By: #### 2 4331-, 55062-5 ####[facility] LABCLIA [id number] [place] [address] [place] Cholesterol non HDL [Mass/Vol] 127 mg/dL Normal <130 [facility] Comment on above: Order Comment: Speci men Type: BLOOD SPECIMENOrdering Facility: [facility] Address: [address] [place] [address] Result Comment: <130 mg/dL, Optimal 130-159 mg/dL, Near optimal/above optimal 160-189 mg/dL, Borderline high 190-219 mg/dL, High >219 mg/dL, Very high Secondary prevention optimal non HDL Cholesterol levels are recommended to be <100 mg/dL Performed By: #### 2 4331-1, ####[facility] LABCLIA [id number] [place] [address] [place] Cholesterol.total/Azalea sterol in HDL [Mass ratio] 2.53 {ratio} Normal <5.10 [facility] Comment on above: Order Comment: Speci men Type: BLOOD SPECIMENOrdering Facility: [facility] Address: [address] [place] [address] Performed By: #### 2 4331-1, ####[facility] [id number] [address] [place] FASTING TIME 12 hrs Normal [facility] Comment on above: Order Comment: Speci men Type: BLOOD SPECIMENOrdering Facility: [facility] Address: [address] [place] [address] Performed By: #### 2 4331-1, ####[facility] [id number] [place] [address] [place] Triglyceride [Mass/Vol] 85 mg/dL Normal <150 [facility] Comment on above: Order Comment: Speci men Type: BLOOD SPECIMENOrdering Facility: [facility] Address: [address] [place] [address] Result Comment: <150 mg/dL, Normal 150-199 mg/dL, Borderline high 200-499 mg/dL, High >499 mg/dL, Very high Performed By: #### 2 4331-1, ####[facility] [id number] [address] [place] Angel 01-06-2024 [place] Telephone ([facility]) MADISON LOFTON ([id number]) 1940 F Date Time Provider Department 01/06/24 DONNELL DOOLEY During your visit today, we recorded the following information about you: Jennifer Holm LPN 01/06/2024 12:30 PM Signed Rescheduled visit from this week till next. Johanna asking if there are any labs that should be done prior to visit? She doesn't have any major concerns. She has noticed a little more decline in memory but she does relate this a little to the loss of Andre. Donnell Dooley MD 01/06/2024 1:48 PM Signed Orders placed Jessica Middleton LPN 01/06/2024 2:02 PM Signed Detailed VM left on Johanna's identified voicemail of information below. Jessica Middleton LPN Allergies As of Date: 01/06/2024 Noted Allergy Reaction AUGMENTIN (AMOXICILLIN-POT CLAVUL*12/23/2017 11 - Vomiting CODEINE 03/03/2016 8 - GI Upset 11 - Vomiting SHELLFISH CONTAINING PRODUCTS 03/03/2016 7 - Swelling 10 - Anaphylaxis 12 - Shortness of Breath 14 - Other: See Comments 4 - Hives Comments: No serious trouble with recent re-introduction of shellfish into diet. 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 - fluticasone propion-salmeterol 232-14 mcg/actuation - meloxicam (MOBIC) 7.5 mg tablet Take 7.5 mg by mouth once daily. - lidocaine (LIDODERM) 5 % Apply 1 Patch as directed every 24 hours. - ACETAMINOPHEN ORAL Take by mouth as needed. - rivastigmine tartrate (EXELON) 1.5 mg capsule Take 1 capsule by mouth twice daily. - triamterene-hydroCHLOR Othiazide (DYAZIDE) 37.5-25 mg per capsule Take 1 capsule by mouth once daily. - meclizine (ANTIVERT) 25 mg tab Take 25 mg by mouth as needed. - calcium carbonate (TUMS ORAL) Take 1 tablet by mouth at bedtime as needed. - nystatin (MYCOSTATIN) 100,000 unit/mL suspension three times daily. - Cholecalciferol, Vitamin D3, 25 mcg (1,000 unit) cap Take 1,000 Units by mouth once daily. - VENTOLIN HFA 90 mcg/actuation inhaler Inhale 2 Puffs as instructed every 6 hours as needed for Wheezing/Shortness of Breath. - OXYGEN, HOME THERAPY, Inhale 3 L/min as instructed as directed. - tiotropium (SPIRIVA WITH HANDIHALER) 18 mcg inhalation capsule INHALE THE CONTENTS OF ONE CAPSULE VIA HANDIHALER ONCE DAILY - Zinc 50 mg tab Take 50 mg by mouth once daily. - ipratropium-albuterol (DUONEB) 0.5 mg-3 mg(2.5 mg base)/3 mL nebu Inhale 3 mL as instructed every 6 hours as needed (wheezing/shortness of breath). - CALCIUM ORAL Take 1 tablet by mouth once daily. - MAGNESIUM ORAL Take 1 tablet by mouth once daily. Problem List As Of Date 01/06/2024 Noted Resolved Personal history of CLL (chronic lymphocytic le*05/11/2016 Epigastric pain [R10.13] 05/11/2016 12/20/2020 Emphysema of lung (HCC) [J43.9] 06/05/2016 History of breast cancer [Z85.3] VHD (valvular heart disease) [I38] Osteoporosis [M81.0] Small B-cell lymphoma (HCC) [C83.00] Chronic bronchitis (HCC) [J42] 06/15/2022 Mixed hyperlipidemia [E78.2] 03/30/2017 History of breast cancer in female [Z85.3] 05/12/2017 03/24/2018 Meningioma (HCC) [D32.9] 03/16/2018 Meniere's disease [H81.09] MVP (mitral valve prolapse) [I34.1] 12/20/2020 Mild cognitive impairment [G31.84] 09/09/2021 Chronic respiratory failure with hypoxia (HCC) *06/15/2022 Atrial fibrillation (HCC) [I48.91] 06/15/2022 12/23/2022 Chest pain, unspecified [R07.9] 11/26/2022 06/28/2023 Diagnosed: 12/23/2022 Weakness [R53.1] 08/03/2022 06/28/2023 Diagnosed: 12/23/2022 Ulcer of toe of right foot, limited to breakdow*06/28/2023 Encounter Status:Closed by JESSICA MIDDLETON on 01/06/24 [facility] MADISON LOFTON ([id number]) 1940 F Date Time Provider Department 10/16[facility]23 [facility] During your visit today, we recorded the following information about you: Tammy North LPN 10/16/2023 11:24 AM Signed Nurse from [facility] called to state that the urine culture report showed that one of the bacteria is resistant to macrobid. She is faxing the report for review. Tammy North LPN 10/16/2023 11:49 AM Signed Culture showed that Proteus mirabilie is susceptible to: ampicillin ampicillin.sulbactam cefazolin cefepime ceftriaxone ciprofloxacin ertapanem gentamicin levofloxacin piperacillin/tazobacta m tobramycin trimethoprim/sulfameth o See scanned documents Desi Gomez MD 10/17/2023 7:46 AM Addendum Rx sent for Bactrim DS BID x 7 days. Stop Macrobid. Go to ER with worsening symptoms of fever/chills, confusion, nausea, vomiting, abdominal pain, flank pain. Attempted to call daughter with this message without answer. LM to call office back regarding this. Thao Bowen LPN 10/18/2023 1:37 PM Signed Message left on unit support representative Rusty shane , instructed to call office and ask for a triage nurse for update. MEG Gonzalez Sherrie, RN 10/18/2023 4:05 PM Signed Certified Tumor Registrar Haleigh at [facility] returning call to state patient is improving since she began the Bactrim, as ordered by Dr. Gomez. Kaleigh Simmons RN Allergies As of Date: 10/16/2023 Noted Allergy Reaction AUGMENTIN (AMOXICILLIN-POT CLAVUL*12/23/2017 11 - Vomiting CODEINE 03/03/2016 8 - GI Upset 11 - Vomiting SHELLFISH CONTAINING PRODUCTS 03/03/2016 7 - Swelling 10 - Anaphylaxis 12 - Shortness of Breath 14 - Other: See Comments 4 - Hives Comments: No serious trouble with recent re-introduction of shellfish into diet. BACITRACIN 03/03/2016 9 - Itching LATEX 03/03/2016 2 - Rash WALNUT 01/07/2022 7 - Swelling Date Reviewed: 08/14/2023 Reviewed by: Sav Mejía APRN.MARKER MACHINE - Fully Assessed Reason for Visit: Orders [681] Order(s):[] sulfamethoxazole-trime thoprim (BACTRIM DS) 800-160 mg per tabletTake 1 tablet by mouth two times a day for 7 days.Disp: 14 tabletRfl: 0 Prescriptions as of 11/24/2023 - aspirin, enteric coated (ASPIRIN, ENTERIC COATED) 81 mg EC tablet Take 81 mg by mouth two times a day. - fluticasone propion-salmeterol 232-14 mcg/actuation - meloxicam (MOBIC) 7.5 mg tablet Take 7.5 mg by mouth once daily. - lidocaine (LIDODERM) 5 % Apply 1 Patch as directed every 24 hours. - ACETAMINOPHEN ORAL Take by mouth as needed. - rivastigmine tartrate (EXELON) 1.5 mg capsule Take 1 capsule by mouth twice daily. - triamterene-hydroCHLOR Othiazide (DYAZIDE) 37.5-25 mg per capsule Take 1 capsule by mouth once daily. - meclizine (ANTIVERT) 25 mg tab Take 25 mg by mouth as needed. - calcium carbonate (TUMS ORAL) Take 1 tablet by mouth at bedtime as needed. - nystatin (MYCOSTATIN) 100,000 unit/mL suspension three times daily. - Cholecalciferol, Vitamin D3, 25 mcg (1,000 unit) cap Take 1,000 Units by mouth once daily. - VENTOLIN HFA 90 mcg/actuation inhaler Inhale 2 Puffs as instructed every 6 hours as needed for Wheezing/Shortness of Breath. - OXYGEN, HOME THERAPY, Inhale 3 L/min as instructed as directed. - tiotropium (SPIRIVA WITH HANDIHALER) 18 mcg inhalation capsule INHALE THE CONTENTS OF ONE CAPSULE VIA HANDIHALER ONCE DAILY - Zinc 50 mg tab Take 50 mg by mouth once daily. - ipratropium-albuterol (DUONEB) 0.5 mg-3 mg(2.5 mg base)/3 mL nebu Inhale 3 mL as instructed every 6 hours as needed (wheezing/shortness of breath). - CALCIUM ORAL Take 1 tablet by mouth once daily. - MAGNESIUM ORAL Take 1 tablet by mouth once daily. 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] Chronic bronchitis (HCC) [J42] 06/15/2022 Mixed hyperlipidemia [E78.2] 03/30/2017 History of breast cancer in female [Z85.3] 05/12/2017 03/24/2018 Meningioma (HCC) [D32.9] 03/16/2018 Meniere's disease [H81.09] MVP (mitral valve prolapse) [I34.1] 12/20/2020 Mild cognitive impairment [G31.84] 09/09/2021 Chronic respiratory failure with hypoxia (HCC) *06/15/2022 Atrial fibrillation (HCC) [I48.91] 06/15/2022 12/23/2022 Chest pain, unspecified [R07.9] 11/26/2022 06/28/2023 Diagnosed: 12/23/2022 Weakness [R53.1] 08/03/2022 06/28/2023 Diagnosed: 12/23/2022 Ulcer of toe of right foot, limited to breakdow*06/28/2023 Prescriptions ordered this encounter Disp Refills Start End SULFAMETHOXAZOLE 800 MG-TRIMETHOPRIM* 10 (more content not included)... [facility] MADISON LOFTON ([id number]) 1940 F Date Time Provider Department 10/13/23 DONNELL DOOLEY [facility] During your visit today, we recorded the following information about you: Kaleigh Simmons, RN 10/13/2023 4:54 PM Signed Nurse Haleigh calling from [facility] regarding patient. Reports they have sent a fax over to PCP office indicating pt has had recent abnormal urine dip along with confusion, increased frequency and urgency. Asking provider if they wish to order a urine culture and/or medication? Please either respond back on their fax, and fax to [phone] or call Nurse at [phone] with reply. Thank you. Jennifer Holm LPN 10/13/2023 5:13 PM Signed UA showed 70+ WBC +nitrite no blood Morelia Hewitt APRN.MARKER MACHINE 10/13/2023 5:18 PM Signed Start macrobid 100 mg twice daily for 10 days. Send urine for culture. Morelia Hewitt APRN.REYNALDO WillJennifer giles LPN 10/13/2023 5:24 PM Signed Orders were given to Haleigh via phone. Allergies As of Date: 10/13/2023 Noted Allergy Reaction AUGMENTIN (AMOXICILLIN-POT CLAVUL*12/23/2017 11 - Vomiting CODEINE 03/03/2016 8 - GI Upset 11 - Vomiting SHELLFISH CONTAINING PRODUCTS 03/03/2016 7 - Swelling 10 - Anaphylaxis 12 - Shortness of Breath 14 - Other: See Comments 4 - Hives Comments: No serious trouble with recent re-introduction of shellfish into diet. BACITRACIN 03/03/2016 9 - Itching LATEX 03/03/2016 2 - Rash WALNUT 01/07/2022 7 - Swelling Date Reviewed: 08/14/2023 Reviewed by: Sav Mejía APRN.MARKER MACHINE - Fully Assessed Reason for Visit: Patient Update [1234] Prescriptions as of 10/13/2023 - aspirin, enteric coated (ASPIRIN, ENTERIC COATED) 81 mg EC tablet Take 81 mg by mouth two times a day. - fluticasone propion-salmeterol 232-14 mcg/actuation - meloxicam (MOBIC) 7.5 mg tablet Take 7.5 mg by mouth once daily. - lidocaine (LIDODERM) 5 % Apply 1 Patch as directed every 24 hours. - ACETAMINOPHEN ORAL Take by mouth as needed. - rivastigmine tartrate (EXELON) 1.5 mg capsule Take 1 capsule by mouth twice daily. - triamterene-hydroCHLOR Othiazide (DYAZIDE) 37.5-25 mg per capsule Take 1 capsule by mouth once daily. - meclizine (ANTIVERT) 25 mg tab Take 25 mg by mouth as needed. - calcium carbonate (TUMS ORAL) Take 1 tablet by mouth at bedtime as needed. - nystatin (MYCOSTATIN) 100,000 unit/mL suspension three times daily. - Cholecalciferol, Vitamin D3, 25 mcg (1,000 unit) cap Take 1,000 Units by mouth once daily. - VENTOLIN HFA 90 mcg/actuation inhaler Inhale 2 Puffs as instructed every 6 hours as needed for Wheezing/Shortness of Breath. - OXYGEN, HOME THERAPY, Inhale 3 L/min as instructed as directed. - tiotropium (SPIRIVA WITH HANDIHALER) 18 mcg inhalation capsule INHALE THE CONTENTS OF ONE CAPSULE VIA HANDIHALER ONCE DAILY - Zinc 50 mg tab Take 50 mg by mouth once daily. - ipratropium-albuterol (DUONEB) 0.5 mg-3 mg(2.5 mg base)/3 mL nebu Inhale 3 mL as instructed every 6 hours as needed (wheezing/shortness of breath). - CALCIUM ORAL Take 1 tablet by mouth once daily. - MAGNESIUM ORAL Take 1 tablet by mouth once daily. 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] Chronic bronchitis (HCC) [J42] 06/15/2022 Mixed hyperlipidemia [E78.2] 03/30/2017 History of breast cancer in female [Z85.3] 05/12/2017 03/24/2018 Meningioma (HCC) [D32.9] 03/16/2018 Meniere's disease [H81.09] MVP (mitral valve prolapse) [I34.1] 12/20/2020 Mild cognitive impairment [G31.84] 09/09/2021 Chronic respiratory failure with hypoxia (HCC) *06/15/2022 Atrial fibrillation (HCC) [I48.91] 06/15/2022 12/23/2022 Chest pain, unspecified [R07.9] 11/26/2022 06/28/2023 Diagnosed: 12/23/2022 Weakness [R53.1] 08/03/2022 06/28/2023 Diagnosed: 12/23/2022 Ulcer of toe of right foot, limited to breakdow*06/28/2023 Encounter Status:Closed by JENNIFER HOLM on 10/13/23 [facility] 08-16-2023 [facility] Telephone ([facility]) MADISON LOFTON ([id number]) 1940 F Date Time Provider Department 08/16/23 MORELIA HEWITT During your visit today, we recorded the following information about you: Morelia Hewitt APRN.MARKER MACHINE 08/16/2023 7:57 PM Signed Can please let patient know that I received her CT results. There were no acute findings. It incidentally showed some non-worrisome cysts on her liver. It also showed some diverticulosis, but no symptoms of infection. It showed her bladder was a little distended. Does it feel like she is emptying her bladder completely when she urinates? Parish Correia LPN 08/17/2023 9:41 AM Signed Phoned daughterJohanna. LM to return call to office. MEG Fulton Beth, LPN 08/17/2023 10:07 AM Signed Patient daughter Johanna returned call and went over results, notes from Morelia Hewitt DRAPERY COUNSELOR, daughter said mother is voiding more often may not be getting empty. Morelia Hewitt APRN.REYNALDO 08/17/2023 10:23 AM Signed Lets have her get an ultrasound of the bladder to r/o urinary retention. The order is in. Morelia Hewitt APRN.Ruby Jaquez OCCA 08/17/2023 11:19 AM Signed TC no answer. Left VM to return call.ANDERS Neff Stephanie, SHANTELL 08/17/2023 11:32 AM Signed Johanna Calls back and notified of below. Johanna voices understanding. Johanna transferred to machine operator farmworker to get testing scheduled. Alejandrina Cooper RN Allergies As of Date: 08/16/2023 Noted Allergy Reaction AUGMENTIN (AMOXICILLIN-POT CLAVUL*12/23/2017 11 - Vomiting CODEINE 03/03/2016 8 - GI Upset 11 - Vomiting SHELLFISH CONTAINING PRODUCTS 03/03/2016 7 - Swelling 10 - Anaphylaxis 12 - Shortness of Breath 14 - Other: See Comments 4 - Hives Comments: No serious trouble with recent re-introduction of shellfish into diet. BACITRACIN 03/03/2016 9 - Itching LATEX 03/03/2016 2 - Rash WALNUT 01/07/2022 7 - Swelling Date Reviewed: 08/14/2023 Reviewed by: Sav Mejía APRN.MARKER MACHINE - Fully Assessed Reason for Visit: Results [95] Primary Visit Diagnosis:Urinary frequency [R35.0] Order(s): KIDNEY/BLADDER [[id number]] Order #: [id number] FUTURE Prescriptions as of 08/17/2023 - aspirin, enteric coated (ASPIRIN, ENTERIC COATED) 81 mg EC tablet Take 81 mg by mouth two times a day. - fluticasone propion-salmeterol 232-14 mcg/actuation - meloxicam (MOBIC) 7.5 mg tablet Take 7.5 mg by mouth once daily. - lidocaine (LIDODERM) 5 % Apply 1 Patch as directed every 24 hours. - ACETAMINOPHEN ORAL Take by mouth as needed. - rivastigmine tartrate (EXELON) 1.5 mg capsule Take 1 capsule by mouth twice daily. - triamterene-hydroCHLOR Othiazide (DYAZIDE) 37.5-25 mg per capsule Take 1 capsule by mouth once daily. - meclizine (ANTIVERT) 25 mg tab Take 25 mg by mouth as needed. - calcium carbonate (TUMS ORAL) Take 1 tablet by mouth at bedtime as needed. - nystatin (MYCOSTATIN) 100,000 unit/mL suspension three times daily. - Cholecalciferol, Vitamin D3, 25 mcg (1,000 unit) cap Take 1,000 Units by mouth once daily. - VENTOLIN HFA 90 mcg/actuation inhaler Inhale 2 Puffs as instructed every 6 hours as needed for Wheezing/Shortness of Breath. - OXYGEN, HOME THERAPY, Inhale 3 L/min as instructed as directed. - tiotropium (SPIRIVA WITH HANDIHALER) 18 mcg inhalation capsule INHALE THE CONTENTS OF ONE CAPSULE VIA HANDIHALER ONCE DAILY - Zinc 50 mg tab Take 50 mg by mouth once daily. - ipratropium-albuterol (DUONEB) 0.5 mg-3 mg(2.5 mg base)/3 mL nebu Inhale 3 mL as instructed every 6 hours as needed (wheezing/shortness of breath). - CALCIUM ORAL Take 1 tablet by mouth once daily. - MAGNESIUM ORAL Take 1 tablet by mouth once daily. 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] Chronic bronchitis (HCC) [J42] 06/15/2022 Mixed hyperlipidemia [E78.2] 03/30/2017 History of breast cancer in female [Z85.3] 05/12/2017 03/24/2018 Meningioma (HCC) [D32.9] 03/16/2018 Meniere's disease [H81.09] MVP (mitral valve prolapse) [I34.1] 12/20/2020 Mild cognitive impairment [G31.84] 09/09/2021 Chronic respiratory failure with hypoxia (HCC) *06/15/2022 Atrial fibrillation (HCC) [I48.91] 06/15/2022 12/23/2022 Chest pain, unspecified [R07.9] 11/26/2022 06/28/2023 Weakness [R53.1] 08/03/2022 06/28/2023 Ulcer of toe of right foot, limited to breakdow*06/28/2023 Encounter Status:Closed by ALEJANDRINA COOPER on 08/17/23 [facility] Carmen 08-14-2023 CNOV Office Visit (UCWSTR ) MADISON LOFTON ([id number]) 1940 F Date Time Provider Department 08/14/23 1:45 PM [facility] During your visit today, we recorded the following information about you: Temperature Pulse Respiration Blood pressure 98.1 degrees 63/minute 20/minute 131/78 Weight 42 kg Sav Mejía APRN.MARKER MACHINE 08/14/2023 2:12 PM Signed Subjective HPI Nontoxic-appearing female presents urgent care chief complaint bilateral eye swelling and redness. Duration of symptoms 1 week. Associated symptoms listed above. Patient is presents today due to worsening eye redness and swelling. States left eye is painful. Is noticing worsening vision in this eye. Presents today for evaluation. Has been using antihistamine eyedrops and Claritin. This has not helped. Denies any eye trauma. History of cataract surgery. Past medical history prescription medications allergies reviewed. .Patient presents with: Eye Problem: Bilat eyes, redness, swelling, x 1 week PAST MEDICAL HISTORY Diagnosis Date Breast cancer (HCC) Left mastectomy. Right mastectomy. Bilateral reconstructions. No chemo/XRT. Cervical cancer (HCC) Remote. SOHEILA/BSO. No chemo or XRT. COPD (chronic obstructive pulmonary disease) (HCC) Gastroenteritis History of ileus Meniere's disease [facility]. Meningioma (HCC) Mitral valve regurgitation Non Hodgkin's lymphoma (HCC) About 14 years ago. No XRT, chemotherapy. Watchful waiting. Osteoporosis PAST SURGICAL HISTORY Procedure Laterality Date BREAST RECONSTRUCTION CATARACT EXTRACTION HX Bilateral 2011 CATARACT SURGERY, COMPLEX COLONOSCOPY W/BIOPSY SINGLE/MULTIPLE 10/12/2016 [facility] DIAG AND/OR THERAP, NOT OB EGD TRANSORAL BIOPSY SINGLE/MULTIPLE 10/12/2016 EGD W/O BRSH SPEC VARICIES INJ N/A HEMORRHOIDECTOMY MASTECTOMY HX Bilateral 1982 PAST SURGICAL HISTORY OF Bronchial artery embolization, left lung PAST SURGICAL HISTORY OF 2002 Lymph node removal on left arm SLING OPER STRES INCONTINENCE TOT ABDOMINL HYSTERECTOMY 1984 ALLERGIES Augmentin [Amoxicillin-Pot Clavulanate], Codeine, Shellfish Containing Products, Bacitracin, Latex, and Freeman MEDICATIONS aspirin, enteric coated (ASPIRIN, ENTERIC COATED) 81 mg EC tablet Take 81 mg by mouth two times a day. Hydrocolloid Dressing (DUODERM CGF BORDER DRESSING) 4 X 4 bndg Apply 1 Each to affected area every 36 hours. fluticasone propion-salmeterol 232-14 mcg/actuation meloxicam (MOBIC) 7.5 mg tablet Take 7.5 mg by mouth once daily. lidocaine (LIDODERM) 5 % Apply 1 Patch as directed every 24 hours. ACETAMINOPHEN ORAL Take by mouth as needed. rivastigmine tartrate (EXELON) 1.5 mg capsule Take 1 capsule by mouth twice daily. triamterene-hydroCHLOR Othiazide (DYAZIDE) 37.5-25 mg per capsule Take 1 capsule by mouth once daily. meclizine (ANTIVERT) 25 mg tab Take 25 mg by mouth as needed. calcium carbonate (TUMS ORAL) Take 1 tablet by mouth at bedtime as needed. nystatin (MYCOSTATIN) 100,000 unit/mL suspension three times daily. Cholecalciferol, Vitamin D3, 25 mcg (1,000 unit) cap Take 1,000 Units by mouth once daily. VENTOLIN HFA 90 mcg/actuation inhaler Inhale 2 Puffs as instructed every 6 hours as needed for Wheezing/Shortness of Breath. OXYGEN, HOME THERAPY, Inhale 3 L/min as instructed as directed. tiotropium (SPIRIVA WITH HANDIHALER) 18 mcg inhalation capsule INHALE THE CONTENTS OF ONE CAPSULE VIA HANDIHALER ONCE DAILY Zinc 50 mg tab Take 50 mg by mouth once daily. ipratropium-albuterol (DUONEB) 0.5 mg-3 mg(2.5 mg base)/3 mL nebu Inhale 3 mL as instructed every 6 hours as needed (wheezing/shortness of breath). CALCIUM ORAL Take 1 tablet by mouth once daily. MAGNESIUM ORAL Take 1 tablet by mouth once daily. FAMILY HISTORY Problem Relation Age of Onset Alzheimer's Disease Mother in her 80s. Aneurysm Father AAA at age 61. other (Chronic bronchitis.) Father other (Other) Brother Parkinson's vs [place]'s. age 61. other (Other) Other Meningioma: multiple cousins Social History Tobacco Use Smoking status: Former Packs/day: 1.00 Years: 30.00 Additional pack years: 0.00 Total pack years: 30.00 Types: Cigarettes Quit date: 02/22/1999 Years since quittin.4 Smokeless tobacco: Never Tobacco comments: Father smoked in childhood home. Vaping Use Vaping Use: Never used Substance Use Topics Alcohol use: Yes Alcohol/week: 4.0 standard drinks of alcohol Types: 4 Glasses of Wine (5oz) per week Comment: With dinner. Drug use: No BP 131/78 Pulse 63 Temp 36.7 ?C (98.1 ?F) Resp 20 Wt 42 kg (92 lb 9.5 oz) SpO2 98% BMI 18.18 kg/m? Review of Systems Constitutional: Negative for chills, fever and malaise/fatigue. HENT: Negative for congestion, ear discharge, ear pain, sinus pain and sore throat. Eyes: Positive for blurred visio (more content not included)... Normal [facility] CT ABD/PEL WO IVCONon 2023 CT ABD/PEL WO IVCON * * *Final Report* * * DATE OF EXAM: Aug 11 2023 3:50PM [facility] 0531 - CT ABD/PEL WO IVCON / PROCEDURE REASON: Pelvic pain * * * * Physician Interpretation * * * * EXAMINATION: CT ABDOMEN AND PELVIS WITHOUT IV CONTRAST CLINICAL HISTORY: Breast carcinoma. Chronic lymphocytic leukemia TECHNIQUE: Non-IV contrast imaging of the abdomen and pelvis was performed using standard technique, scanning from just above the dome of the diaphragm to the symphysis pubis. Unenhanced imaging is limited for the evaluation of some intra-abdominal and pelvic pathology. MQ: [id number]_3 Contrast: IV: None Oral: 10 ml of Omni 240 10-25ml diluted with water CT Radiation dose: Integrated Dose-length product (DLP) for this visit = 184 mGy*cm. CT Dose Reduction Employed: Automated exposure control(AEC) and iterative recon COMPARISON: None. RESULT: Abdomen / Pelvis: Liver: Left hepatic lobe 2.3 cm cyst. Additional 1.3 cm left hepatic lobe cyst. No suspicious hepatic lesion on these nonenhanced scans.. Biliary: Gallbladder is collapsed. No biliary dilatation. Spleen: No splenomegaly. Pancreas: Unremarkable. Adrenals: Bilateral adrenal fullness is likely related to hyperplasia. Kidneys: No calculus, hydronephrosis or finding to suggest a solid mass in the unenhanced kidney. Probable left renal cyst. Probable hemorrhagic subcentimeter right renal cyst. GI Tract: No bowel dilation. Significant diverticulosis without evidence of diverticulitis Lymph Nodes: No lymphadenopathy. Mesentery/peritoneum: No ascites. Retroperitoneum: No mass. Vasculature: Arterial atherosclerotic disease without aneurysm. Pelvis: No mass or ascites. Moderate distention of the urinary bladder Bones/Soft Tissues: No acute abnormality. Mild grade 1 spondylolisthesis of L4 on L5. Lower thorax: Unremarkable. Localizer images: No additional findings. IMPRESSION: No acute process within the abdomen or pelvis. Diverticulosis without diverticulitis. No definite suspicious mass or adenopathy. Incidental findings as described Hat Lacer: PSCB Transcribe Date/Time: Aug 16 2023 1:24P Dictated by : MANI RICHARDSON MD This examination was interpreted and the report reviewed and electronically signed by: MANI RICHARDSON MD on Aug 16 2023 1:39PM EST [id number] Normal [facility] Bacteria Ur Culton 4 Bacteria identified Cx Nom (U) ORGANISM ID: 1 <10,000 CFU/ml Lactose negative gram negative bacilli Insignificant colony count. No further workup. Normal [facility] Comment on above: Performed By: #### 6 30-4 ####[facility] LABCLIA [id number] [address] [facility] CNOVon 08-04-2023 CNOV Office Visit (MEKAWS ) MADISON LOFTON ([id number]) 1940 F Date Time Provider Department 08/04/23 9:00 AM MORELIA EHWITT During your visit today, we recorded the following information about you: Pulse Respiration Blood pressure 84/minute 16/minute 124/82 Morelia Hewitt APRN.MARKER MACHINE 08/04/2023 10:03 AM Signed This is a 83 year old female who presents today with: Patient presents with: Acute Visit: Loss of bladder control, lower abdominal pain, pressure when urinating; no blood in urine HISTORY OF PRESENT ILLNESS: Madison Lofton is a 83 year old female. Patient presents with: Acute Visit: Loss of bladder control, lower abdominal pain, pressure when urinating; no blood in urine Pt presents today with complaint of suprapubic area and in the lower back. (Does get pain shots in the lower back). Started a month ago. Lives at [place]. Refers did a urine sample about a month ago, but was normal. No fever/chills. Sometimes some abdominal pain with urination. Increased frequency of urination. Wears pads all the time - more leakage of urine. + urgency. Doesn't think there was blood - but a couple of times questioned it. No constipation/diarrhea. Stooling more than she used to. No pain with stooling. No hematochezia/melena. Remote colonoscopy does show diverticulosis. No vaginal discharge/odor. Hx of SOHEILA/BSO. No vaginal bleeding. No vaginal protrusions. PAST MEDICAL HISTORY: PAST MEDICAL HISTORY Diagnosis Date Breast cancer (HCC) Left mastectomy. Right mastectomy. Bilateral reconstructions. No chemo/XRT. Cervical cancer (HCC) Remote. SOHEILA/BSO. No chemo or XRT. COPD (chronic obstructive pulmonary disease) (HCC) Gastroenteritis History of ileus Meniere's disease [facility]. Meningioma (HCC) Mitral valve regurgitation Non Hodgkin's lymphoma (HCC) About 14 years ago. No XRT, chemotherapy. Watchful waiting. Osteoporosis PAST SURGICAL HISTORY Procedure Laterality Date BREAST RECONSTRUCTION CATARACT EXTRACTION HX Bilateral 2011 CATARACT SURGERY, COMPLEX COLONOSCOPY W/BIOPSY SINGLE/MULTIPLE 10/12/2016 [facility] DIAG AND/OR THERAP, NOT OB EGD TRANSORAL BIOPSY SINGLE/MULTIPLE 10/12/2016 EGD W/O BRSH SPEC VARICIES INJ N/A HEMORRHOIDECTOMY MASTECTOMY HX Bilateral 1982 PAST SURGICAL HISTORY OF Bronchial artery embolization, left lung PAST SURGICAL HISTORY OF 2002 Lymph node removal on left arm SLING OPER STRES INCONTINENCE TOT ABDOMINL HYSTERECTOMY 1984 ALLERGIES Augmentin [Amoxicillin-Pot Clavulanate], Codeine, Shellfish Containing Products, Bacitracin, Latex, and Freeman MEDICATIONS Current Outpatient Medications Medication Sig aspirin, enteric coated (ASPIRIN, ENTERIC COATED) 81 mg EC tablet Take 81 mg by mouth two times a day. Hydrocolloid Dressing (DUODERM CGF BORDER DRESSING) 4 X 4 bndg Apply 1 Each to affected area every 36 hours. fluticasone propion-salmeterol 232-14 mcg/actuation meloxicam (MOBIC) 7.5 mg tablet Take 7.5 mg by mouth once daily. lidocaine (LIDODERM) 5 % Apply 1 Patch as directed every 24 hours. ACETAMINOPHEN ORAL Take by mouth as needed. rivastigmine tartrate (EXELON) 1.5 mg capsule Take 1 capsule by mouth twice daily. triamterene-hydroCHLOR Othiazide (DYAZIDE) 37.5-25 mg per capsule Take 1 capsule by mouth once daily. meclizine (ANTIVERT) 25 mg tab Take 25 mg by mouth as needed. calcium carbonate (TUMS ORAL) Take 1 tablet by mouth at bedtime as needed. nystatin (MYCOSTATIN) 100,000 unit/mL suspension three times daily. Cholecalciferol, Vitamin D3, 25 mcg (1,000 unit) cap Take 1,000 Units by mouth once daily. VENTOLIN HFA 90 mcg/actuation inhaler Inhale 2 Puffs as instructed every 6 hours as needed for Wheezing/Shortness of Breath. OXYGEN, HOME THERAPY, Inhale 3 L/min as instructed as directed. tiotropium (SPIRIVA WITH HANDIHALER) 18 mcg inhalation capsule INHALE THE CONTENTS OF ONE CAPSULE VIA HANDIHALER ONCE DAILY Zinc 50 mg tab Take 50 mg by mouth once daily. ipratropium-albuterol (DUONEB) 0.5 mg-3 mg(2.5 mg base)/3 mL nebu Inhale 3 mL as instructed every 6 hours as needed (wheezing/shortness of breath). CALCIUM ORAL Take 1 tablet by mouth once daily. MAGNESIUM ORAL Take 1 tablet by mouth once daily. No current facility-administered medications for this visit. FAMILY HISTORY Problem Relation Age of Onset Alzheimer's Disease Mother in her 80s. Aneurysm Father AAA at age 61. other (Chronic bronchitis.) Father other (Other) Brother Parkinson's vs Donavon's. age 61. other (Other) Other Meningioma: multiple cousins Social History Tobacco Use Smoking status: Former Packs/day: 1.00 Years: 30.00 Additional pack years: 0.00 Total pack years: 30.00 Types: Cigarettes Quit date: 02/22/1999 Years since quittin.4 Smokeless tobacco: Never Tobacco comments: Fathe (more content not included)... Normal [facility] UA DIP, URINE (POC)on 2023 BILIRUBIN UA (POCT) Negative Negative [facility] CLARITY UA (POCT) Clear [facility] COLOR UA (POCT) Yellow [facility] GLUCOSE UA (POCT) Negative Negative mg/dL [facility] Hemoglobin Ql (U) Negative Negative [facility] KETONE UA (POCT) Negative Negative mg/dL [facility] LEUKOCYTES UA (POCT) Negative Negative [facility] NITRITE UA (POCT) Negative Negative [facility] PH UA (POCT) 6.0 4.5 - 8.0 [facility] Protein Ql (U) Negative Negative mg/dL [facility] SPECIFIC GRAVITY UA (POCT) 1.025 1.005 - 1.030 [facility] UROBILINOGEN UA (POCT) 0.2 Lisha l E.U./dL [facility] Location:[address], [address] [place] [address] POINT OF CARE [facility] CNCOon 08-03-2023 CNCO Letter Text Normal [facility] US DVT LOWER LTon 04-02-2023 US DVT LOWER LT * * *Final Report* * * DATE OF EXAM: Apr 02 2023 4:25PM LDU 1006 - US DVT LOWER LT / PROCEDURE REASON: multiple diagnoses * * * * Physician Interpretation * * * * EXAMINATION: LEFT LOWER EXTREMITY DEEP VENOUS ULTRASOUND WITH DOPPLER IMAGING CLINICAL HISTORY: Lower extremity swelling TECHNIQUE: Grayscale with compression maneuvers, color Doppler and spectral Doppler imaging of the left proximal deep veins was performed. Grayscale with compression maneuvers of the peroneal and posterior tibial veins was performed. The left great and small saphenous veins were evaluated at their insertion to the deep system. The contralateral common femoral vein was imaged for comparison. Images were obtained and stored in a permanent archive. MQ: [id number]_1 COMPARISON: None RESULT: LEFT LOWER EXTREMITY PROXIMAL DEEP VEINS Distal External Iliac, Common Femoral and proximal Profunda Veins: Compression: Normal Doppler: Normal, spontaneous respirophasic flow. Normal response to augmentation. Femoral vein: Compression: Normal Doppler: Normal, spontaneous flow. Normal response to augmentation. Popliteal vein: Compression: Normal Doppler: Normal, spontaneous flow. Normal response to augmentation. CALF DEEP VEINS Peroneal veins: Normal compression. Posterior tibial veins: Normal compression. Gastrocnemius and Soleal veins: Not imaged. SUPERFICIAL VEINS Great saphenous: Patent and compressible at insertion into common femoral vein; not otherwise assessed. Small Saphenous: Patent and compressible in the proximal calf, not otherwise assessed. RIGHT LOWER EXTREMITY (FOR COMPARISON) Common Femoral Vein: Compression: Normal Doppler: Normal, spontaneous respirophasic flow. Normal response to augmentation. IMPRESSION: Negative study for proximal DVT in the left lower extremity. Negative study for calf DVT in the left lower extremity. Negative study for superficial thrombophlebitis in the imaged segments of the left lower extremity. Hat Lacer: PSCB Transcribe Date/Time: Apr 02 2023 4:53P Dictated by : GENOVEVA SCHERER MD This examination was interpreted and the report reviewed and electronically signed by: GENOVEVA SCHERER MD on Apr 02 2023 4:55PM EST [id number] Normal [facility] US Lower extremity vein - le fton 04-02-2023 [facility] Absolute lymphocyte countOrd ered By: Ponce Wang on 11-18-2022 Lymphocytes Auto (Unsp spec) [#/Vol] 3.50 10*3/uL 0.83-4.51 [facility] Basophil percentageOrdered B y: Ponce Wang on 11-18-2022 Basophils/100 WBC (Bld) 0.4 % 0-1 [facility] Chloride [Moles/Vol] 104 mmol/L 98-107 [facility] Eosinophils/100 WBC (Bld) 2.0 % 0-5 [facility] Glucose [Mass/Vol] 81 mg/dL 74-106 [facility] Neutrophils (Bld) [#/Vol] 10.8 10*3/uL 2.0-7.7 [facility] Neutrophils/100 WBC (Bld) 68.3 % 47-70 [facility] Potassium [Moles/Vol] 3.4 mmol/L 3.5-5.1 [facility] Sodium [Moles/Vol] 142 mmol/L 136-145 [facility] WBC (Bld) [#/Vol] 15.9 10*3/uL 4.4-11.0 [facility] Blood erythrocytes count (nu mber/volume)Ordered By: Ponce Wang on 11-18-2022 RBC (Bld) [#/Vol] 4.54 10*6/uL 4.2-5.4 [facility] Blood hemoglobin measurement (mass/volume)Ordered By: Ponce Wang on 11-18-2022 Hemoglobin (Bld) [Mass/Vol] 13.8 g/dL 12.0-15.0 [facility] Blood lymphocytes/100 leukoc ytesOrdered By: Ponce Wang on 11-18-2022 Lymphocytes/100 WBC (Bld) 22.0 % 19-41 [facility] Blood monocytes/100 leukocyt esOrdered By: Ponce Wang on 11-18-2022 Monocytes/100 WBC (Bld) 6.7 % 0-10 [facility] Blood platelet mean volumeOr dered By: Ponce Wang on 11-18-2022 Platelet mean volume (Bld) [Entitic vol] 11.8 fL 6.2-12.0 [facility] Determination of erythrocyte mean corpuscular volume (MCV)Ordered By: Ponce Wang on 11-18-2022 MCV (RBC) [Entitic vol] 95.4 fL 81-99 [facility] Hematocrit Auto (Bld) [Volum e fraction]Ordered By: Ponce Wang on 11-18-2022 Hematocrit (Bld) [Volume fraction] 43.3 % 37-47 [facility] - Chemistry and C hemistry - challengeOrdered By: Ponce Wang on 11-18-2022 CO2 [Moles/Vol] 35.0 mmol/L 21.0-32.0 [facility] Urea nitrogen/Creatinine [Mass ratio] 33.2 mg/mg 10-20 [facility] - Hematology and Cell countsOrdered By: Ponce Wang on 11-18-2022 Erythrocyte distribution width (RBC) [Entitic vol] 49.1 fL 35.1-43.9 [facility] Erythrocyte distribution width (RBC) [Ratio] 14.1 % 11.6-14.6 [facility] Immature granulocytes/100 WBC (Bld) 0.600 % 0.0-0.9 [facility] Comment on above: IG% - Immature Granu locytes (promyelocytes, myelocytes and metamyelocytes) > 1% indicates that a LEFT SHIFT is Present. MCH (RBC) [Entitic mass] 30.4 pg 27.0-32.0 [facility] Nucleated RBC/100 WBC (Bld) [Ratio] 0 % 0-5 [facility] MCHC Auto (RBC) [Mass/Vol]Or dered By: Ponce Wang on 11-18-2022 MCHC (RBC) [Mass/Vol] 31.9 g/dL 32-36 [facility] No Panel InformationOrdered By: Ponce Wang on 11-18-2022 Troponin I High Sensitivity 6 pg/mL 3.0-54.0 [facility] Comment on above: Please Note: New Cheryl t Units and Gender Specific Reference Ranges. For more information see Policy Stat Procedure [place] High Sensitivity Troponin (TNIH) and attachments. D-Dimer Quantitative (PE/DVT) 0.96 FEU/ug/m 0.27-0.49 [facility] Comment on above: D-Dimer ELEVATED (>0 .49): Additional studies and clinicalassessments are indicated to conclude diagnosis of:Deep Vein Thrombosis (DVT) or Pulmonary Embolism (PE)CRITICAL VALUE VERIFIED. CALLED TO LUZWUU14/27/23 [address].RESULTS READ BACK BY SAME. Estimated Creatinine Clearance Calc 31.17 ml/min [facility] Estimated GFR (MDRD) Amer 100 mL/min >60 [facility] Comment on above: GFR Calc Estimated GFR (MDRD) Non-Af Amer 82 mL/min >60 [facility] Comment on above: Non- GFR Calc Platelets bldOrdered By: Adan Wang on 11-18-2022 Platelets (Bld) [#/Vol] 161 10*3/uL 150-450 [facility] Serum or plasma calcium dmitry urement (mass/volume)Ordered By: Ponce Wang on 11-18-2022 Calcium [Mass/Vol] 9.1 mg/dL 8.5-10.1 [facility] Serum or plasma creatinine m easurement (mass/volume)Ordered By: Ponce Wang on 11-18-2022 Creatinine [Mass/Vol] 0.72 mg/dL 0.55-1.02 [facility] Comment on above: The validity of the calculated GFR & GFRAA in patients over 70 years has not been determined. Clinical correlation is essential. Serum or plasma urea nitroge n measurement (mass/volume)Ordered By: Ponce Wang on 11-18-2022 Urea nitrogen [Mass/Vol] 24 mg/dL 7-18 [facility] Thin prep Papanicolaou smear with manual screeningOrdered By: Ponce Wang on 11-18-2022 Thin prep Papanicolaou smear with manual screening 3 5-15 [facility] ANES POSTPROC EVALon 023 ANES POSTPROC EVAL HNO ID: [id number] Author: Donnell Palmer DO Service: Anesthesiology Author Type: Physician Type: Anesthesia Postprocedure Evaluation Filed: 10/12/2022 1:09 PM Note Text: POST ANESTHESIA EVALUATION NOTE : 1940 Procedure Summary Date: 10/12/22 Room / Location: [place] [address] / [place] Anesthesia Start: 1121 Anesthesia Stop: 1241 Procedure: AMPUTATION TOE(S) (Right: Foot) Diagnosis: Hammer toe of right foot (Hammer toe of right foot [M20.41]) Surgeons: Danika Helms Responsible Provider: Donnell Palmer DO Anesthesia Type: MAC ASA Status: 3 Anesthesia Type: MAC Last Vitals Vitals Value Taken Time BP 128/79 10/12/22 1300 Temp 36.5 ?C (97.7 ?F) 10/12/22 1238 Pulse 51 10/12/22 1307 Resp 30 10/12/22 1307 SpO2 100 % 10/12/22 1307 Vitals shown include unvalidated device data. Post Anesthesia Patient Status Patient Evaluation: PACU. PACU/ICU Patient Condition: stable. Anticipated Disposition: phase 2 then home. Neurological Status: aware and responsive. Pulmonary Status: breathing comfortably on supplemental oxygen Airway Control: returned to baseline unsupported. Cardiovascular Status: stable. Pain Management: clinically adequate Postoperative Hydration: acceptable. Intraoperative Events: no significant anesthesia events Post Operative Nausea/Vomiting Status: no significant post operative nausea or vomiting Recommendation: continue current plan of care and further care per PACU/ICU/floor team. Anesthesia Observations No Documentation SIGNATURE: Donnell Palmer DO PATIENT NAME: Madison Lofton DATE: October 12, 2022 TIME: 1:09 PM CSN: [id number] [facility] ANES PRE-OPon 10-12-2022 ANES PRE-OP HNO ID: [id number] Author: Donnell Palmer DO Service: Anesthesiology Author Type: Physician Type: Anesthesia Preprocedure Evaluation Filed: 10/12/2022 10:47 AM Note Text: Summary: Breast Ca, Cervical Ca, Nonhogkin. Emphysema (PRN albuterol and O2), +1MR, +1-2TR ANESTHESIOLOGY DAY OF SURGERY NOTE : 1940 Procedure Information Date/Time: 10/12/22 1225 Procedure: AMPUTATION TOE(S) (Right) [place] [place] Surgeons: Danika Helms Estimated body mass index is 18.16 kg/m? as calculated from the following: Height as of 10/07/22: 152.4 cm (5'). Weight as of 10/07/22: 42.2 kg (93 lb). Most recent hematocrit and potassium results: Hematocrit 41.4 10/09/2022 Potassium 3.5 10/09/2022 Relevant Problems CARDIO (+) Atrial fibrillation (HCC) (+) MVP (mitral valve prolapse) NEURO-PSYCH (+) History of breast cancer (+) Personal history of CLL (chronic lymphocytic leukemia) PULMONARY (+) Emphysema of lung (HCC) I - PHYSICAL EVALUATION AIRWAY Patient intubated: No. Tracheostomy tube not present Mallampati: I. TM distance: >3 FB. Neck ROM: full ROM without neurological symptoms. Mouth opening: adequate. Short neck: no. Thick neck: no DENTAL Dental findings: teeth intact. Additional exam findings: yes. CARDIOVASCULAR Rhythm: regular Rate: normal PULMONARY Breath sounds clear to auscultation. II - ANESTHESIA PLAN ASA Score: 3 Anesthetic Plan: MAC The patient is not a current smoker. (Former smoker) NPO Status: adequate Beta Major Monitoring Plan Monitoring plan: standard ASA. Post Procedure Analgesic Plan Postoperative analgesic plan: parenteral or oral opioids, multimodal analgesia and per surgical service. Informed Consent Anesthetic risks, benefits, alternatives, personnel and consent discussed: yes. Patient / Responsible Democrat agrees to proceed: yes Patient / Surrogate agrees to blood products: Yes DNR status not reviewed with patient and/or family prior to surgery. Significant changes in the patient condition since the History and Physical, not otherwise documented in primary service progress note: no. Potential Anesthesia issues that may suggest increased risk of complications or contraindication to planned procedure: none. No vitals data found for the desired time range. Facility-Administered Medications as of 10/12/2022 Medication Dose Route Frequency - lidocaine (PF) 10 mg/mL (1 %) 1-2 mg injection (XYLOCAINE) 0.1-0.2 mL INTRADERMAL PRN - lactated ringers iv infusion 5-30 mL/hr INTRAVENOUS CONTINUOUS - NaCl 0.9% iv flush bag 20 mL INTRAVENOUS PRN - ceFAZolin iv piggyback 2 g in D5W (iso-osmotic) 100 mL (ANCEF) 2 g INTRAVENOUS Pre-Op Once Outpatient Medications as of 10/12/2022 Medication Sig - OXYGEN, HOME THERAPY, Inhale 3 L/min as instructed as directed. (Patient taking differently: Inhale 3 L/min as instructed as directed. At night) - rivastigmine tartrate (EXELON) 1.5 mg capsule Take 1 capsule by mouth twice daily. - triamterene-hydroCHLOR Othiazide (DYAZIDE) 37.5-25 mg per capsule Take 1 capsule by mouth once daily. - meclizine (ANTIVERT) 25 mg tab - calcium carbonate (TUMS ORAL) Take 1 tablet by mouth at bedtime as needed. - nystatin (MYCOSTATIN) 100,000 unit/mL suspension three times daily. - Cholecalciferol, Vitamin D3, 25 mcg (1,000 unit) cap Take 1,000 Units by mouth once daily. - VENTOLIN HFA 90 mcg/actuation inhaler Inhale 2 Puffs as instructed every 6 hours as needed for Wheezing/Shortness of Breath. - tiotropium (SPIRIVA WITH HANDIHALER) 18 mcg inhalation capsule INHALE THE CONTENTS OF ONE CAPSULE VIA HANDIHALER ONCE DAILY - Zinc 50 mg tab Take 50 mg by mouth once daily. - ipratropium-albuterol (DUONEB) 0.5 mg-3 mg(2.5 mg base)/3 mL nebu Inhale 3 mL as instructed every 6 hours as needed (wheezing/shortness of breath). - CALCIUM ORAL Take 1 tablet by mouth once daily. - MAGNESIUM ORAL Take 1 tablet by mouth once daily. I have interviewed and examined the patient. I have reviewed the medical record and/or the pre-anesthesia evaluation, pertinent labs, and test results. This contains updated information obtained within 48 hours of Surgery/Procedure. SIGNATURE: Donnell Palmer DO PATIENT NAME: Madison Lofton DATE: October 12, 2022 TIME: 10:46 AM CSN: [id number] [facility] OPERATIVE NOon 10-12-2022 OPERATIVE NO HNO ID: [id number] Author: Danika Helms Service: ? Author Type: Physician Type: Operative Report Filed: 10/13/2022 10:44 PM Note Text: OPERATIVE/PROCEDURE REPORT LOG ID: [id number] SURGERY/PROCEDURE DATE: 10/12/2022 INCISION/PROCEDURE START TIME: 11:49 AM INCISION CLOSE/PROCEDURE END TIME: 12:27 PM SURGEON(S)/PROCEDURALI ST(S) AND OIL BURNER(S): Surgeon(s) and Role: * Danika Helms - Primary Registered Nurse Rubber Liner: Carlee Ruiz RN SURGERY/PROCEDURE(S): Right 2nd toe amputation Removal of neuroma, right 2nd interspace ANESTHESIA: Monitored Anesthesia Care SURGERY/PROCEDURE DETAILS: patient is a pleasant 82 year old who I have treated on a regular schedule for recurrent corns and callus to the medial aspect of right 2nd toe and lateral aspect of right hallux. The callus is caused by slight bunion defromity of the first ray combined with a medial deviation of the 2nd toe. She has treated these corns and callus with padding and periodic debridement. Over the last 1 year, the pain has become more severe and the duration between debridements is getting shorter. We have discussed various treatment options not limited to continued use of padding and periodic debridement to first ray reconstruction to 2nd toe amputation. We discussed the recovery of first ray reconstruction would be longer duration so she has freely elected to proceed with 2nd toe amputation. I discussed the recovery for 2nd toe amputation to include partial weightbearing with walker. I discussed risks associated with 2nd toe amputation not limited to infection, wound scarring, wound dehiscence, worsening bunion deformity, need for more proximal amputation should this amputation fail, cardiac arrest, dvt, . 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 She understands all risks and consents to proceed. Pre-op pvr were performed. She does have calcified vessels but normal tbi. She was offered referral to vascular surgery/medicine but opted to proceed with surgery. Patient was transferred from the pre-op holding area to the operating room table in the supine position. She was placed under monitored anesthesia care and the right foot was prepped and draped in the usual aseptic technique. 5 cc of 1% lidocaine plain was injected to the 2nd ray. C-arm was used to help plan two converging incisions two resect the 2nd toe at the mtpj. A skin incision was planned. A tournqiuet was applied to the right foot but never inflated. A racket incision planned medially and laterally was then drawn out. The incision was performed with 15 blade down to level of 2nd mtpj. The 2nd toe was disarticulated at the mtpj. The toe was sent to the back table where it was sent for pathology. The surgical incision was then irrigated with normal saline using pulse lavage. I then debrided all tendinous structures. There was a fairly large neuroma of the plantar 2nd interspace and this was resected and passed to the back table for pathology confirmation. One final irrigation was performed. Counts were performed and were correct. The incision was then repaired with 3-0 nylon. The skin was found to be very thin and delicate to perform deep closure so closure was only performed with nylon. Post-op dressing was performed consisting of adaptic, 4x4 guaze to incision and well padded abd to dorsal and platnar foot and ankle. Abd was secured with corbin and lightly applied tricia. Patient was awakened and found to be in stable condition. She was transferred to the pacu in stable condition. PRE-OP/PRE-PROCEDURE DIAGNOSIS: painful callus, right 2nd toe. Hallux valgus, right 2nd toe. Hammertoe, right 2nd toe POST-OP/POST-PROCEDURE DIAGNOSIS: Same as Preop ESTIMATED BLOOD LOSS: 5 mls SPECIMENS: toe to pathology IMPLANTABLE DEVICES: NONE DRAINS: None COMPLICATIONS: None CLOSURE TECHNIQUE: Primary PARTICIPATION IN SURGERY/PROCEDURE: No qualified resident/fellow was available. SIGNATURE: Danika Helms DPM PATIENT NAME: Madison Lofton DATE: October 12, 2022 TIME: 9:13 PM [facility] SURGICAL PATHOLOGYon 023 CASE REPORT [facility] Comment on above: Order Comment: Speci miguel angel Type: TISSUE SPECIMEN Ordering Facility: [facility] Address: [address] [place], [place] [phone] Result Comment: Surg ica Pathology Report Case: [id number] Authorizing Provider: Danika Helms Collected: 10/12/2022 11:53 AM Ordering Location: [facility] Surgery Received: 10/12/2022 02:58 PM Pathologist: Dianne Bullock MD Specimens: A) - DIGIT SECOND, RIGHT FOOT, right second toe amputation B) - SOFT TISSUE, right second toe neuroma Performed By: #### S #### [facility] CLIA [id number] [address] [place] [address] [place] CLINICAL HISTORY Normal [facility] Comment on above: Order Comment: Speci men Type: TISSUE SPECIMEN Ordering Facility: [facility] Address: [address] [place], [place] [phone] Result Comment: Pre- op diagnosis: Hammer toe of right foot [M20.41] Performed By: #### S #### [facility] CLIA [id number] [address] [place] [address] [place] FINAL DIAGNOSIS Normal [facility] Comment on above: Order Comment: Speci men Type: TISSUE SPECIMEN Ordering Facility: [facility] Address: [address] [place] [address] Result Comment: A. S econd digit, right foot, amputation: - Osteocartilaginous tissue with degenerative changes. - Skin with hyperkeratosis. B. Soft tissue, right second toe, excision: - Neuroma. Performed By: #### S #### [facility] CLIA [id number] [address] [place] [address] [place] FINAL PERFORMING LAB Normal [facility] Comment on above: Order Comment: Speci men Type: TISSUE SPECIMEN Ordering Facility: [facility] Address: [address] [place] [address] Result Comment: Diag nostic interpretation performed at [place] [address] CLIA# [id number] Aerial Erector: Octaviano Glynn M.D. Performed By: #### S #### [facility] CLIA [id number] [address] [place] [address] GROSS DESCRIPTION [facility] Comment on above: Order Comment: Speci men Type: TISSUE SPECIMEN Ordering Facility: [facility] Address: [address] [place] [address] Result Comment: A. D IGIT SECOND, RIGHT FOOT Received in formalin designated right second toe amputation is a toe measuring 5.3 x 1.5 x 1.4 cm. On the medial aspect is a callus lesion measuring 0.5 x 0.4 cm. Sectioning the bone reveals a softened cut surface. A patient service representative section of the bone and skin lesion are submitted in cassette A1 after decalcification. B. SOFT TISSUE Received in formalin designated right second toe neuroma is an irregular segments of white rubbery tissue with yellow fatty tissue measuring 3 x 0.9 x 0.4 cm. The specimen is totally submitted in cassette B1. BF October 13, 2022 12:44 PM Gross examination performed at [facility], [address] [place] [address] Performed By: #### S #### [facility] CLIA [id number] [address] [place] XR FLUOROSCOPYon 10-12-2022 XR FLUOROSCOPY * * *Final Report* * * DATE OF EXAM: Oct 12 2022 12:50PM MDR [id number] - XR FLUOROSCOPY / PROCEDURE REASON: AMOUTATION SECOND TOE RIGHT FOOT * * * * Physician Interpretation * * * * XR FLUOROSCOPY HISTORY: Indication: AMOUTATION SECOND TOE RIGHT FOOT AMPUTATION RIGHT SECOND TOE TECHNIQUE: Fluoroscopic Radiation Summary: Plane A, Air Kerma: 5.1 mGy Dose Area Product (DAP): 0.0 mGy*cm^2 Fluoro time: 0:16 min:sec Images obtained: 4 Spot film images/cine fluoroscopy images under fluoroscopic guidance. Images were stored in a permanent archive. Comparison: NONE. RESULT: Findings: Imaging provided for interval amputation of the second digit. Postsurgical changes are noted in the soft tissues. See procedural note in Epic for further discussion. IMPRESSION: As discussed Hat Lacer: TAMMY Transcribe Date/Time: Oct 12 2022 1:30P Dictated by : JANNY BOWMAN DO This examination was interpreted and the report reviewed and electronically signed by: JANNY BOWMAN DO on Oct 12 2022 1:34PM EST [id number] [facility] XR FOOT 3V AP/LAT/OBL RTon 0 10-12-2022 XR FOOT 3V AP/LAT/OBL RT * * *Final Report* * * DATE OF EXAM: Oct 12 2022 2:15PM MDX [id number] - XR FOOT 3V AP/LAT/OBL RT / PROCEDURE REASON: Post-operative / post-procedure assessment, symptomatic * * * * Physician Interpretation * * * * EXAMINATION / TECHNIQUE: XR FOOT 3V AP/LAT/OBL RT PATIENT/TECHNOLOGIST PROVIDED HISTORY: POST OP CLINICAL INFORMATION ( PROVIDED BY ORDERING CLINICIAN) : Post-operative / post-procedure assessment, symptomatic COMPARISON: 10/06/2022 RESULT: Interval amputation second digit at the MTP joint with expected subcutaneous air and soft tissue swelling. No fracture, erosion, or radiopaque foreign body. IMPRESSION: Expected postoperative changes. Hat Lacer: TAMMY Transcribe Date/Time: Oct 12 2022 2:59P Dictated by : TRACEY HURTADO MD This examination was interpreted and the report reviewed and electronically signed by: TRACEY HURTADO MD on Oct 12 2022 3:01PM EST [id number] Normal [facility] CBC W Auto Differential pane l (Bld)on 06-15-2022 Basophils (Bld) [#/Vol] 0.06 10*3/uL <0.11 k/uL [facility] Basophils/100 WBC (Bld) 0.4 % [facility] Differential cell count method Nom (Bld) Auto [facility] Eosinophils (Bld) [#/Vol] 0.19 10*3/uL <0.46 k/uL [facility] Eosinophils/100 WBC (Bld) 1.3 % [facility] Erythrocyte distribution width (RBC) [Ratio] 13.3 % 11.5 - 15.0 % [facility] Hematocrit (Bld) [Volume fraction] 43.3 % 36.0 - 46.0 % [facility] Hemoglobin (Bld) [Mass/Vol] 14.4 g/dL 11.5 - 15.5 g/dL [facility] Immature granulocytes (Bld) [#/Vol] 0.07 10*3/uL <0.10 k/uL [facility] Immature granulocytes/100 WBC (Bld) 0.5 % [facility] Lymphocytes (Bld) [#/Vol] 3.82 10*3/uL 1.00 - 4.00 k/uL [facility] Lymphocytes/100 WBC (Bld) 25.7 % [facility] MCH (RBC) [Entitic mass] 31.4 pg 26.0 - 34.0 pg [facility] MCHC (RBC) [Mass/Vol] 33.3 g/dL 30.5 - 36.0 g/dL [facility] MCV (RBC) [Entitic vol] 94.5 fL 80.0 - 100.0 fL [facility] Monocytes (Bld) [#/Vol] 1.03 10*3/uL High <0.87 k/uL [facility] Monocytes/100 WBC (Bld) 6.9 % [facility] Neutrophils (Bld) [#/Vol] 9.70 10*3/uL High 1.45 - 7.50 k/uL [facility] Neutrophils/100 WBC (Bld) 65.2 % [facility] Nucleated RBC (Bld) [#/Vol] <0.01 k/uL [facility] Nucleated RBC/100 WBC (Bld) [Ratio] 0.0 /100 WBC [facility] Platelet mean volume (Bld) [Entitic vol] 12.2 fL 9.0 - 12.7 fL [facility] Platelets (Bld) [#/Vol] 193 10*3/uL 150 - 400 k/uL [facility] RBC (Bld) [#/Vol] 4.58 10*6/uL 3.90 - 5.2 0 m/uL [facility] WBC (Bld) [#/Vol] 14.87 10*3/uL High 3.70 - 11 .00 k/uL [facility] Absolute lymphocyte countOrd ered By: Dr. Kendrick on 04-15-2022 Lymphocytes Auto (Unsp spec) [#/Vol] 4.98 10*3/uL 0.83-4.51 [facility] Basophil percentageOrdered B y: Dr. Kendrick on 04-15-2022 Basophil percentage 0-5 SEEN /hpf 0-5 [facility] Basophils/100 WBC (Bld) 0.3 % 0-1 [facility] Bilirubin [Mass/Vol] 0.60 mg/dL 0.20-1.00 [facility] Comment on above: For patients on eltr ombopag therapy, use of Dimension [place] TBIL is not recommended. Chloride [Moles/Vol] 99 mmol/L 98-107 [facility] Eosinophils/100 WBC (Bld) 0.3 % 0-5 [facility] Glucose [Mass/Vol] 126 mg/dL 74-106 [facility] Comment on above: Fasting Glucose resu lt greater than or equal to 126 mg/dL suggests DIABETES MELLITUS per A.D.A. criteria. Neutrophils (Bld) [#/Vol] 9.6 10*3/uL 2.0-7.7 [facility] Neutrophils/100 WBC (Bld) 61.8 % 47-70 [facility] Potassium [Moles/Vol] 3.4 mmol/L 3.5-5.1 [facility] Protein [Mass/Vol] 6.5 g/dL 6.4-8.2 [facility] Sodium [Moles/Vol] 138 mmol/L 136-145 [facility] WBC (Bld) [#/Vol] 15.6 10*3/uL 4.4-11.0 [facility] Bilirubin Test strip Ql (U)O rdered By: Dr. Kendrick on 04-15-2022 Bilirubin Ql (U) Negative Negative [facility] Blood erythrocytes count (nu mber/volume)Ordered By: Dr. Kendrick on 04-15-2022 RBC (Bld) [#/Vol] 4.72 10*6/uL 4.2-5.4 [facility] Blood hemoglobin measurement (mass/volume)Ordered By: Dr. Kendrick on 04-15-2022 Hemoglobin (Bld) [Mass/Vol] 14.6 g/dL 12.0-15.0 [facility] Blood lymphocytes/100 leukoc ytesOrdered By: Dr. Kendrick on 04-15-2022 Lymphocytes/100 WBC (Bld) 32.0 % 19-41 [facility] Blood monocytes/100 leukocyt esOrdered By: Dr. Kendrick on 04-15-2022 Monocytes/100 WBC (Bld) 5.3 % 0-10 [facility] Blood platelet mean volumeOr dered By: Dr. Kendrick on 04-15-2022 Platelet mean volume (Bld) [Entitic vol] 11.8 fL 6.2-12.0 [facility] Determination of erythrocyte mean corpuscular volume (MCV)Ordered By: Dr. Kendrick on 04-15-2022 MCV (RBC) [Entitic vol] 91.5 fL 81-99 [facility] Direct bilirubinOrdered By: Dr. Kendrick on 04-15-2022 Bilirubin.direct [Mass/Vol] 0.19 mg/dL 0.00-0.30 [facility] Hematocrit Auto (Bld) [Volum e fraction]Ordered By: Dr. Kendrick on 04-15-2022 Hematocrit (Bld) [Volume fraction] 43.2 % 37-47 [facility] Hyaline casts LM.LPF (Urine sed) [#/Area]Ordered By: Dr. Kendrick on 04-15-2022 Hyaline casts (Urine sed) [#/Area] 0 /[LPF] 0-5 [facility] Ketones Test strip Ql (U)Ord ered By: Dr. Kendrick on 04-15-2022 Ketones Ql (U) 5 mg/dl Negative [facility] Laboratory - Chemistry and C hemistry - challengeOrdered By: Dr. Kendrick on 04-15-2022 ALP [Catalytic activity/Vol] 79 U/L 45-117 [facility] ALT [Catalytic activity/Vol] 27 U/L 13-56 [facility] CO2 [Moles/Vol] 28.0 mmol/L 21.0-32.0 [facility] Globulin (S) [Mass/Vol] 2.8 g/dL 2.2-4.2 [facility] Urea nitrogen/Creatinine [Mass ratio] 44.0 mg/mg 10-20 [facility] - Hematology and Cell countsOrdered By: Dr. Kendrick on 04-15-2022 Erythrocyte distribution width (RBC) [Entitic vol] 44.9 fL 35.1-43.9 [facility] Erythrocyte distribution width (RBC) [Ratio] 13.4 % 11.6-14.6 [facility] Immature granulocytes/100 WBC (Bld) 0.300 % 0.0-0.9 [facility] Comment on above: IG% - Immature Granu locytes (promyelocytes, myelocytes and metamyelocytes) > 1% indicates that a LEFT SHIFT is Present. MCH (RBC) [Entitic mass] 30.9 pg 27.0-32.0 [facility] Nucleated RBC/100 WBC (Bld) [Ratio] 0 % 0-5 [facility] MCHC Auto (RBC) [Mass/Vol]Or dered By: Dr. Kendrick on 04-15-2022 MCHC (RBC) [Mass/Vol] 33.8 g/dL 32-36 [facility] Mucus LM Ql (Urine sed)Order ed By: Dr. Kendrick on 04-15-2022 Mucus Ql (Urine sed) 0 SEEN /hpf [facility] Nitrite Test strip Ql (U)Ord ered By: Dr. Kendrick on 04-15-2022 Nitrite Ql (U) Negative Negative [facility] No Panel InformationOrdered By: Dr. Kendrick on 04-15-2022 Estimated Creatinine Clearance Calc 36.55 ml/min [facility] Estimated GFR (MDRD) Amer 89 mL/min >60 [facility] Comment on above: GFR Calc Estimated GFR (MDRD) Non-Af Amer 74 mL/min >60 [facility] Comment on above: Non- GFR Calc Troponin I High Sensitivity 4 pg/mL 3.0-54.0 [facility] Comment on above: Please Note: New Cheryl t Units and Gender Specific Reference Ranges. For more information see Policy Stat Procedure [place] High Sensitivity Troponin (TNIH) and attachments. Platelets bldOrdered By: Dr. Kendrick on 04-15-2022 Platelets (Bld) [#/Vol] 200 10*3/uL 150-450 [facility] Protein Test strip Ql (U)Ord ered By: Dr. Kendrick on 04-15-2022 Protein Ql (U) 15 mg/dl Negative [facility] Serum or plasma albumin dmitry urement (mass/volume)Ordered By: Dr. Kendrick on 04-15-2022 Albumin [Mass/Vol] 3.7 g/dL 3.2-5.0 [facility] Serum or plasma calcium dmitry urement (mass/volume)Ordered By: Dr. Kendrick on 04-15-2022 Calcium [Mass/Vol] 9.8 mg/dL 8.5-10.1 [facility] Serum or plasma creatinine m easurement (mass/volume)Ordered By: Dr. Kendrick on 04-15-2022 Creatinine [Mass/Vol] 0.80 mg/dL 0.55-1.02 [facility] Comment on above: The validity of the calculated GFR & GFRAA in patients over 70 years has not been determined. Clinical correlation is essential. Serum or plasma urea nitroge n measurement (mass/volume)Ordered By: Dr. Kendrick on 04-15-2022 Urea nitrogen [Mass/Vol] 35 mg/dL 7-18 [facility] Squamous epithelial cells de tection in urine sediment by light microscopyOrdered By: Dr. Kendrick on 04-15-2022 Epithelial cells.squamous LM Ql (Urine sed) 0-5 SEEN /hpf 5-10 [facility] Thin prep Papanicolaou smear with manual screeningOrdered By: Dr. Kendrick on 04-15-2022 Thin prep Papanicolaou smear with manual screening 21 U/L 15-37 [facility] Thin prep Papanicolaou smear with manual screening 11 5-15 [facility] Urine blood detectionOrdered By: Dr. Kendrick on 04-15-2022 RBC Ql (U) Negative Negative [facility] RBC Ql (U) 0 SEEN /hpf 0-5 [facility] Urine clarityOrdered By: Dr. Kendrick on 04-15-2022 Clarity (U) Sl. Cloudy Clear [facility] Urine color determinationOrd ered By: Dr. Kendrick on 04-15-2022 Color (U) Yellow Yellow [facility] Urine glucose detectionOrder ed By: Dr. Kendrick on 04-15-2022 Glucose Ql (U) Normal mg/dl Normal [facility] Urine leukocyte esterase det ection by dipstickOrdered By: Dr. Kendrick on 04-15-2022 Leukocyte esterase Test strip Ql (U) 100 /ul Negative [facility] Urine pHOrdered By: Dr. Terry horvath on 04-15-2022 pH (U) 6.0 [pH] 5.0 - 8.0 [facility] Urine sediment bacteria coun t by microscopy (number/high power field)Ordered By: Dr. Kendrick on 04-15-2022 Bacteria LM.HPF (Urine sed) [#/Area] 0 /[HPF] None Seen [facility] Urine specific gravity measu rementOrdered By: Dr. Kendrick on 04-15-2022 Specific gravity (U) [Rel density] 1.020 1.002-1.030 [facility] Urobilinogen Auto test strip Ql (U)Ordered By: Dr. Kendrick on 04-15-2022 Urobilinogen Ql (U) Normal mg/dl Normal [facility] XR CHEST 2V FRONTAL/LATon [facility] XR Chest PA and Lateralon IMPRESSION: No acute radiographic abnormality. Hat Lacer: PSCB Transcribe Date/Time: Mar 16 2022 11:37A Dictated by : DOMI HOLLINGSWORTH MD This examination was interpreted and the report reviewed and electronically signed by: DOMI HOLLINGSWORTH MD on Mar 16 2022 11:38AM [facility] DIVISION OF RADIOLOGY * * *Final Report* * * DATE OF EXAM: Mar 16 2022 11:30AM WOX 5291 - XR CHEST 2V FRONTAL/LAT / PROCEDURE REASON: Acute cough * * * * Physician Interpretation * * * * EXAMINATION: CHEST RADIOGRAPH (2 VIEW FRONTAL & LATERAL) CLINICAL HISTORY: Acute cough MQ: XC2_6 EXAM DATE/TIME: 03/16/2022 11:30 AM COMPARISON: Chest x-ray dated May 06, 2021 RESULT: Lines, tubes, and devices: None. Lungs and pleura: Lungs hyperinflated with stable mild linear scarring at the left base. No consolidation. No lung mass. No pleural effusion. No pneumothorax. Cardiomediastinal silhouette: Stable cardiomediastinal silhouette with surgical clips in the region of the left mediastinum. Bones and soft tissues: Osseous demineralization. Mild degenerative changes. DIVISION OF RADIOLOGY Provider, Kiera Onofre [facility] - 03/16/2022 * * *Final Report* * * DATE OF EXAM: Mar 16 2022 11:30AM WOX 5291 - XR CHEST 2V FRONTAL/LAT / PROCEDURE REASON: Acute cough * * * * Physician Interpretation * * * * EXAMINATION: CHEST RADIOGRAPH (2 VIEW FRONTAL & LATERAL) CLINICAL HISTORY: Acute cough MQ: XC2_6 EXAM DATE/TIME: 03/16/2022 11:30 AM COMPARISON: Chest x-ray dated May 06, 2021 RESULT: Lines, tubes, and devices: None. Lungs and pleura: Lungs hyperinflated with stable mild linear scarring at the left base. No consolidation. No lung mass. No pleural effusion. No pneumothorax. Cardiomediastinal silhouette: Stable cardiomediastinal silhouette with surgical clips in the region of the left mediastinum. Bones and soft tissues: Osseous demineralization. Mild degenerative changes. IMPRESSION IMPRESSION: No acute radiographic abnormality. Hat Lacer: PSCB Transcribe Date/Time: Mar 16 2022 11:37A Dictated by : DOMI HOLLINGSWORTH MD This examination was interpreted and the report reviewed and electronically signed by: DOMI HOLLINGSWORTH MD on Mar 16 2022 11:38AM EST [facility] Radiology Study observation (narrative) [facility] XR Chest PA and LateralOrder ed By: [facility] Provider on 03-16-2022 [facility] XR Lumbar spine 3 Viewson IMPRESSION: Lumbar spine degenerative changes as described above. Hat Lacer: TAMMY Transcribe Date/Time: Sep 05 2021 3:24P Dictated by : HALINA GARBER MD This examination was interpreted and the report reviewed and electronically signed by: HALINA GARBER MD on Sep 05 2021 3:29PM EST [email or web address]_ USE_DIVISIO N OF RADIOLOGY * * *Final Report* * * DATE OF EXAM: Sep 04 2021 4:53PM WOX 5228 - XR LUMBAR 3V AP/LAT/L5-S1 / PROCEDURE REASON: Sciatica, right side * * * * Physician Interpretation * * * * EXAM TITLE: XR LUMBAR 3V AP/LAT/L5-S1 EXAM DATE/TIME: 09/04/2021 4:53 PM COMPARISON: None. CLINICAL INDICATION/HISTORY: Pain. TECHNIQUE: AP, lateral and cone down lateral views of the lumbar spine are presented. FINDINGS: There are five cdp-taj-nxefqrx lumbar vertebrae. No acute fractures demonstrated. There is grade 1 L4 on L5 anterolisthesis. The disc spaces are grossly preserved. There is mild osteophyte formation, with facet arthrosis. Kissing spine seen on lateral view. The bones are osteopenic. Others: There are vascular calcifications [id number]_ USE_DIVISIO N OF RADIOLOGY [facility] * * *Final Report* * * DATE OF EXAM: Sep 04 2021 4:53PM WOX 5228 - XR LUMBAR 3V AP/LAT/L5-S1 / PROCEDURE REASON: Sciatica, right side * * * * Physician Interpretation * * * * EXAM TITLE: XR LUMBAR 3V AP/LAT/L5-S1 EXAM DATE/TIME: 09/04/2021 4:53 PM COMPARISON: None. CLINICAL INDICATION/HISTORY: Pain. TECHNIQUE: AP, lateral and cone down lateral views of the lumbar spine are presented. FINDINGS: There are five osu-crx-rlgkync lumbar vertebrae. No acute fractures demonstrated. There is grade 1 L4 on L5 anterolisthesis. The disc spaces are grossly preserved. There is mild osteophyte formation, with facet arthrosis. Kissing spine seen on lateral view. The bones are osteopenic. Others: There are vascular calcifications IMPRESSION IMPRESSION: Lumbar spine degenerative changes as described above. Hat Lacer: PSCB Transcribe Date/Time: Sep 05 2021 3:24P Dictated by : HALINA GARBER MD This examination was interpreted and the report reviewed and electronically signed by: HALINA GARBER MD on Sep 05 2021 3:29PM EST [facility] XR Lumbar spine 3 ViewsOrder ed By: Ccf Provider on 09-05-2021 [facility] XR Lumbar spine 3 Viewson Radiology Study observation (narrative) [facility] MRI BRAIN WO/W IVCONon 05-26 [facility] XR Chest PA and Lateralon IMPRESSION: Stable chest. No acute cardiopulmonary process. Hat Lacer: [facility] Transcribe Date/Time: May 06 2021 4:26P Dictated by : JENNIFER JONES MD This examination was interpreted and the report reviewed and electronically signed by: JENNIFER JONES MD on May 06 2021 4:28PM EST DIVISION OF RADIOLOGY * * *Final Report* * * DATE OF EXAM: May 06 2021 3:08PM WOX 5291 - XR CHEST 2V FRONTAL/LAT / PROCEDURE REASON: Mild cognitive impairment * * * * Physician Interpretation * * * * EXAMINATION: CHEST RADIOGRAPH (2 VIEW FRONTAL & LATERAL) CLINICAL HISTORY: Mild cognitive impairment MQ: XC2_6 EXAM DATE/TIME: 05/06/2021 3:08 PM COMPARISON: Comparison is made to prior 2 view chest studies from 03/18/2018 and 06/05/2016 RESULT: Lines, tubes, and devices: None. Lungs and pleura: The lungs are hyperinflated and chronic interstitial lung changes with lingular and bibasilar fibrotic scarring appear stable. There is no focal consolidation or acute pleural process/fluid. There is no vascular redistribution to suggest pulmonary edema. Cardiomediastinal silhouette: The cardiac, mediastinal and hilar shadows are unchanged with unfolded descending thoracic aorta. Surgical clips in the region of the left mediastinum are unchanged. Other: The bony structures are intact DIVISION OF RADIOLOGY Provider, Terrence allen [place] - 05/06/2021 * * *Final Report* * * DATE OF EXAM: May 06 2021 3:08PM WOX 5291 - XR CHEST 2V FRONTAL/LAT / PROCEDURE REASON: Mild cognitive impairment * * * * Physician Interpretation * * * * EXAMINATION: CHEST RADIOGRAPH (2 VIEW FRONTAL & LATERAL) CLINICAL HISTORY: Mild cognitive impairment MQ: XC2_6 EXAM DATE/TIME: 05/06/2021 3:08 PM COMPARISON: Comparison is made to prior 2 view chest studies from 03/18/2018 and 06/05/2016 RESULT: Lines, tubes, and devices: None. Lungs and pleura: The lungs are hyperinflated and chronic interstitial lung changes with lingular and bibasilar fibrotic scarring appear stable. There is no focal consolidation or acute pleural process/fluid. There is no vascular redistribution to suggest pulmonary edema. Cardiomediastinal silhouette: The cardiac, mediastinal and hilar shadows are unchanged with unfolded descending thoracic aorta. Surgical clips in the region of the left mediastinum are unchanged. Other: The bony structures are intact IMPRESSION IMPRESSION: Stable chest. No acute cardiopulmonary process. 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 -Nonspecific ST depression -Seen with left ventricular hypertrophy (strain) or digitalis effect. ABNORMAL Invalid Interpretation Code [employer] Work Phone: [employer] use only - for [employer] import when terms are not otherwise specified 393 ms Invalid Interpretation Code [employer] Work Phone: [phone] P wave axis, electrocardiogram 64 deg Invalid Interpretation Code [employer] Work Phone: [phone] MA interval, electrocardiogram 140 ms Invalid Interpretation Code [employer] Work Phone: [phone] Pulse (Heart Rate) 56 /min Invalid Interpretation Code [facility] Work Phone: [phone] QRS axis, electrocardiogram 41 deg Invalid Interpretation Code [employer] Work Phone: [phone] QRS duration, electrocardiogram 84 ms Invalid Interpretation Code [employer] Work Phone: [phone] QT interval, electrocardiogram new path ms Invalid Interpretation Code [employer] Work Phone: [phone] T wave axis, electrocardiogram 42 deg Invalid Interpretation Code [employer] Work Phone: [phone] 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 Donnell Dooley MD Work Phone: [facility] 08-22-2024 22:00-0400 Diastolic blood pressure 88 mm[Hg] Dr. Donnell Dooley MD Work Phone: [facility] 08-22-2024 22:00-0400 Heart rate 81 /min Dr. Donnell Dooley MD Work Phone: [facility] 08-22-2024 22:00-0400 Inhaled oxygen flow rate 2 L/min Dr. Donnell Dooley MD Work Phone: [facility] 08-22-2024 22:00-0400 Respiratory rate 24 /min Dr. Donnell Dooley MD Work Phone: [facility] 08-22-2024 22:00-0400 SaO2% (BldA) [Mass fraction] 98 % Dr. Donnell Dooley MD Work Phone: [facility] 08-22-2024 22:00-0400 Systolic blood pressure 121 mm[Hg] Dr. Donnell Dooley MD Work Phone: [facility] 08-22-2024 17:02-0400 Body mass index (BMI) [Ratio] 17.4 kg/m2 Dr. Donnell Dooley MD Work Phone: [facility] 08-22-2024 17:02-0400 Body weight 41.[address] Donnell Dooley MD Work Phone: [facility] 08-22-2024 16:32-0400 Body height 154.[address] Donnell Dooley MD Work Phone: [facility] 01-14-2024 14:07-0500 Body height 149.9 cm Donnell Dooley MD Work Phone: [facility] 01-14-2024 14:07-0500 Body mass index (BMI) [Ratio] 20.44 kg/m2 Donnell Dooley MD Work Phone: [facility] 01-14-2024 14:07-0500 Body weight 45.9 kg Donnell Dooley MD Work Phone: [facility] 01-14-2024 14:07-0500 Diastolic blood pressure 66 mm[Hg] Donnell Dooley MD Work Phone: [facility] 01-14-2024 14:07-0500 Heart rate 59 /min Donnell Dooley MD Work Phone: [facility] 01-14-2024 14:07-0500 SaO2% (BldA) [Mass fraction] 99 % Donnell Dooley MD Work Phone: [facility] 01-14-2024 14:07-0500 Systolic blood pressure 118 mm[Hg] Donnell Dooley MD Work Phone: [facility] 08-14-2023 13:47-0400 Body mass index (BMI) [Ratio] 18.18 kg/m2 Sav Mejía APRN.CNP Work Phone: [facility] 08-14-2023 13:47-0400 Body temperature 98.1 [degF] Sav Mejía DRIER HELPER.MARKER MACHINE Work Phone: [facility] 08-14-2023 13:47-0400 Body weight 42 kg Sav Mejía DRIER HELPER.MARKER MACHINE Work Phone: [facility] 08-14-2023 13:47-0400 Diastolic blood pressure 78 mm[Hg] Sav Mejía DRIER HELPER.MARKER MACHINE Work Phone: [facility] 08-14-2023 13:47-0400 Heart rate 63 /min Sav Mejía DRIER HELPER.MARKER MACHINE Work Phone: [facility] 08-14-2023 13:47-0400 Respiratory rate 20 /min Sav Mejía DRIER HELPER.MARKER MACHINE Work Phone: [facility] 08-14-2023 13:47-0400 SaO2% (BldA) [Mass fraction] 98 % Sav Mejía DRIER HELPER.MARKER MACHINE Work Phone: [facility] 08-14-2023 13:47-0400 Systolic blood pressure 131 mm[Hg] Sav Mejía DRIER HELPER.MARKER MACHINE Work Phone: [facility] 08-04-2023 09:13-0400 Diastolic blood pressure 82 mm[Hg] Morelia Haagen DRIER HELPER.MARKER MACHINE Work Phone: [facility] 08-04-2023 09:13-0400 Heart rate 84 /min Morelia Haagen DRIER HELPER.MARKER MACHINE Work Phone: [facility] 08-04-2023 09:13-0400 Respiratory rate 16 /min Morelia Haagen DRIER HELPER.MARKER MACHINE Work Phone: [facility] 08-04-2023 09:13-0400 Systolic blood pressure 124 mm[Hg] Morelia Haagen DRIER HELPER.MARKER MACHINE Work Phone: [facility] 06-28-2023 10:04-0400 Body mass index (BMI) [Ratio] 18.26 kg/m2 Donnell Dooley MD Work Phone: [facility] 06-28-2023 10:04-0400 Body weight 42.19 kg Donnell Dooley MD Work Phone: [facility] 06-28-2023 10:04-0400 Diastolic blood pressure 72 mm[Hg] Donnell Dooley MD Work Phone: [facility] 06-28-2023 10:04-0400 Heart rate 64 /min Donnell Dooley MD Work Phone: [facility] 06-28-2023 10:04-0400 SaO2% (BldA) [Mass fraction] 99 % Donnell Dooley MD Work Phone: [facility] 06-28-2023 10:04-0400 Systolic blood pressure 122 mm[Hg] Donnell Dooley MD Work Phone: [facility] 05-18-2023 11:05-0400 Body weight 44.73 kg Amber Suppan DRIER HELPER.FERRYBOAT HELPER Work Phone: [facility] 05-18-2023 11:05-0400 Diastolic blood pressure 80 mm[Hg] Amber Suppan DRIER HELPER.FERRYBOAT HELPER Work Phone: [facility] 05-18-2023 11:05-0400 Heart rate 70 /min Amber Suppan DRIER HELPER.FERRYBOAT HELPER Work Phone: [facility] 05-18-2023 11:05-0400 SaO2% (BldA) [Mass fraction] 99 % Amber Suppan DRIER HELPER.FERRYBOAT HELPER Work Phone: [facility] 05-18-2023 11:05-0400 Systolic blood pressure 112 mm[Hg] Amber Suppan DRIER HELPER.FERRYBOAT HELPER Work Phone: [facility] 05-04-2023 14:19-0400 Body temperature 98.8 [degF] Amber Suppan DRIER HELPER.FERRYBOAT HELPER Work Phone: [facility] 05-04-2023 14:19-0400 Body weight 43.09 kg Amber Suppan DRIER HELPER.FERRYBOAT HELPER Work Phone: [facility] 05-04-2023 14:19-0400 Diastolic blood pressure 64 mm[Hg] Amber Suppan DRIER HELPER.FERRYBOAT HELPER Work Phone: [facility] 05-04-2023 14:19-0400 Heart rate 71 /min Amber Suppan DRIER HELPER.FERRYBOAT HELPER Work Phone: [facility] 05-04-2023 14:19-0400 Respiratory rate 14 /min Amber Suppan DRIER HELPER.FERRYBOAT HELPER Work Phone: [facility] 05-04-2023 14:19-0400 SaO2% (BldA) [Mass fraction] 95 % Amber Suppan DRIER HELPER.FERRYBOAT HELPER Work Phone: [facility] 05-04-2023 14:19-0400 Systolic blood pressure 102 mm[Hg] Amber Suppan DRIER HELPER.FERRYBOAT HELPER Work Phone: [facility] 04-05-2023 13:39-0500 Body weight 42.64 kg Dallas Bharati DRIER HELPER.MARKER MACHINE Work Phone: [facility] 04-05-2023 13:39-0500 Diastolic blood pressure 78 mm[Hg] Dallas Bharati DRIER HELPER.MARKER MACHINE Work Phone: [facility] 04-05-2023 13:39-0500 Heart rate 80 /min Dallas Bharati DRIER HELPER.MARKER MACHINE Work Phone: [facility] 04-05-2023 13:39-0500 Respiratory rate 16 /min Dallas Bharati DRIER HELPER.MARKER MACHINE Work Phone: [facility] 04-05-2023 13:39-0500 Systolic blood pressure 118 mm[Hg] Dallas Bharati DRIER HELPER.MARKER MACHINE Work Phone: [facility] 04-02-2023 12:56-0500 Body weight 44.54 kg Dallas Bharati DRIER HELPER.MARKER MACHINE Work Phone: [facility] 04-02-2023 12:56-0500 Diastolic blood pressure 70 mm[Hg] Dallas Bharati DRIER HELPER.MARKER MACHINE Work Phone: [facility] 04-02-2023 12:56-0500 Heart rate 69 /min Dallas Bharati DRIER HELPER.MARKER MACHINE Work Phone: [facility] 04-02-2023 12:56-0500 SaO2% (BldA) [Mass fraction] 96 % Dallas Bharati DRIER HELPER.MARKER MACHINE Work Phone: [facility] 04-02-2023 12:56-0500 Systolic blood pressure 110 mm[Hg] Dallas Bharati DRIER HELPER.MARKER MACHINE Work Phone: [facility] 01-27-2023 09:52-0500 Body height 152 cm Margarito Shields MD Work Phone: [facility] 01-27-2023 09:52-0500 Body temperature 98.4 [degF] Margarito Shields MD Work Phone: [facility] 01-27-2023 09:52-0500 Body weight 40.37 kg Margarito Shields MD Work Phone: [facility] 01-27-2023 09:52-0500 Diastolic blood pressure 77 mm[Hg] Margarito Shields MD Work Phone: [facility] 01-27-2023 09:52-0500 Heart rate 89 /min Margarito Shields MD Work Phone: [facility] 01-27-2023 09:52-0500 SaO2% (BldA) [Mass fraction] 100 % Margarito Shields MD Work Phone: [facility] 01-27-2023 09:52-0500 Systolic blood pressure 119 mm[Hg] Margarito Shields MD Work Phone: [facility] 12-23-2022 11:04-0400 Body height 152.4 cm Donnell Dooley MD Work Phone: [facility] 12-23-2022 11:04-0400 Body weight 42.64 kg Donnell Dooley MD Work Phone: [facility] 12-23-2022 11:04-0400 Diastolic blood pressure 70 mm[Hg] Donnell Dooley MD Work Phone: [facility] 12-23-2022 11:04-0400 Heart rate 78 /min Donnell Dooley MD Work Phone: [facility] 12-23-2022 11:04-0400 SaO2% (BldA) [Mass fraction] 95 % Donnell Dooley MD Work Phone: [facility] 12-23-2022 11:04-0400 Systolic blood pressure 94 mm[Hg] Donnell Dooley MD Work Phone: [facility] 12-04-2022 13:36-0400 Body height 154.[address] Donnell Dooley Work Phone: [facility] 12-04-2022 13:36-0400 Body mass index (BMI) [Ratio] 18.3 kg/m2 Dr. Donnell Dooley Work Phone: 2(095)222-976784 [place] [address] 12-04-2022 13:36-0400 Body temperature 98.1 [degF] Dr. Donnell Dooley Work Phone: 0(820)398-925211 [place] [address] 12-04-2022 13:36-0400 Body weight 44.[address] Donnell Dooley Work Phone: 7(701)059-956211 [place] [address] 12-04-2022 13:36-0400 Diastolic blood pressure 72 mm[Hg] Dr. Donnell Dooley Work Phone: 0(515)982-774984 [place] [address] 12-04-2022 13:36-0400 Heart rate 82 /min Dr. Donnell Dooley Work Phone: 7(812)063-796384 [place] [address] 12-04-2022 13:36-0400 Respiratory rate 28 /min Dr. Donnell Dooley Work Phone: 8(956)054-582384 [place] [address] 12-04-2022 13:36-0400 SaO2% (BldA) [Mass fraction] 95 % Dr. Donnell Dooley Work Phone: 7(966)141-390184 [place] [address] 12-04-2022 13:36-0400 Systolic blood pressure 122 mm[Hg] Dr. Donnell Dooley Work Phone: [facility] 11-18-2022 14:30-0400 Diastolic blood pressure 82 mm[Hg] Dr. Donnell Dooley Work Phone: [facility] 11-18-2022 14:30-0400 Heart rate 66 /min Dr. Donnell Dooley Work Phone: [facility] 11-18-2022 14:30-0400 Respiratory rate 21 /min Dr. Donnell Dooley Work Phone: 1(163)799-839353 [address] 11-18-2022 14:30-0400 SaO2% (BldA) [Mass fraction] 96 % Dr. Donnell Dooley Work Phone: [facility] 11-18-2022 14:30-0400 Systolic blood pressure 141 mm[Hg] Dr. Donnell Dooley Work Phone: 2(009)771-750111 [place] [address] 11-18-2022 10:37-0400 Body mass index (BMI) [Ratio] 18.3 kg/m2 Dr. Donnell Dooley Work Phone: 6(044)110-833511 [place] [address] 11-18-2022 10:37-0400 Body temperature 97.7 [degF] Dr. Donnell Dooley Work Phone: [facility] 11-18-2022 10:37-0400 Body weight [address] Donnell Dooley Work Phone: [facility] 10-05-2022 19:26-0400 Body weight 42.19 kg Donnell Dooley MD Work Phone: [facility] 10-05-2022 19:26-0400 Diastolic blood pressure 82 mm[Hg] Donnell Dooley MD Work Phone: [facility] 10-05-2022 19:26-0400 Heart rate 63 /min Donnell Dooley MD Work Phone: [facility] 10-05-2022 19:26-0400 SaO2% (BldA) [Mass fraction] 98 % Donnell Dooley MD Work Phone: [facility] 10-05-2022 19:26-0400 Systolic blood pressure 132 mm[Hg] Donnell Dooley MD Work Phone: [facility] 08-11-2022 06:23-0400 Body mass index (BMI) [Ratio] 17.2 kg/m2 Dr. Donnell Dooley Work Phone: [facility] 08-11-2022 06:23-0400 Body temperature 97.6 [degF] Dr. Donnell Dooley Work Phone: [facility] 08-11-2022 06:23-0400 Body weight 41.[address] Donnell Dooley Work Phone: [facility] 08-11-2022 06:23-0400 Diastolic blood pressure 71 mm[Hg] Dr. Donnell Dooley Work Phone: [facility] 08-11-2022 06:23-0400 Heart rate 61 /min Dr. Donnell Dooley Work Phone: [facility] 08-11-2022 06:23-0400 Respiratory rate 18 /min Dr. Donnell Dooley Work Phone: [facility] 08-11-2022 06:23-0400 SaO2% (BldA) [Mass fraction] 93 % Dr. Donnell Dooley Work Phone: [facility] 08-11-2022 06:23-0400 Systolic blood pressure 106 mm[Hg] Dr. Donnell Dooley Work Phone: [facility] 06-15-2022 10:03-0400 Body height 152.4 cm Donnell Dooley MD Work Phone: [facility] 06-15-2022 10:03-0400 Body weight 42.37 kg Donnell Dooley MD Work Phone: [facility] 06-15-2022 10:03-0400 Diastolic blood pressure 72 mm[Hg] Donnell Dooley MD Work Phone: [facility] 06-15-2022 10:03-0400 Heart rate 60 /min Donnell Dooley MD Work Phone: [facility] 06-15-2022 10:03-0400 SaO2% (BldA) [Mass fraction] 97 % Donnell Dooley MD Work Phone: [facility] 06-15-2022 10:03-0400 Systolic blood pressure 120 mm[Hg] Donnell Dooley MD Work Phone: [facility] 04-15-2022 15:40-0500 Heart rate 62 /min Dr. Donnell Dooley Work Phone: [facility] 04-15-2022 15:40-0500 Respiratory rate 21 /min Dr. Donnell Dooley Work Phone: [facility] 04-15-2022 15:40-0500 SaO2% (BldA) [Mass fraction] 100 % Dr. Donnell Dooley Work Phone: [facility] 04-15-2022 15:31-0500 Diastolic blood pressure 84 mm[Hg] Dr. Donnell Dooley Work Phone: [facility] 04-15-2022 15:31-0500 Systolic blood pressure 147 mm[Hg] Dr. Donnell Dooley Work Phone: [facility] 04-15-2022 12:48-0500 Body height 154.[address] Donnell oDoley Work Phone: [facility] 04-15-2022 12:48-0500 Body mass index (BMI) [Ratio] 16.9 kg/m2 Dr. Donnell Dooley Work Phone: [facility] 04-15-2022 12:48-0500 Body temperature 98 [degF] Dr. Donnell Dooley Work Phone: [facility] 04-15-2022 12:48-0500 Body weight 40.[address] Donnell Dooley Work Phone: [facility] 03-16-2022 10:27-0500 Body temperature 97.3 [degF] Patsy Valencia APRN.CNP Work Phone: [facility] 03-16-2022 10:27-0500 Body weight 40.01 kg Patsy Valencia APRN.MARKER MACHINE Work Phone: [facility] 03-16-2022 10:27-0500 Diastolic blood pressure 78 mm[Hg] Patsy Valencia APRN.MARKER MACHINE Work Phone: [facility] 03-16-2022 10:27-0500 Heart rate 69 /min Patsy Valencia APRN.MARKER MACHINE Work Phone: [facility] 03-16-2022 10:27-0500 Respiratory rate 18 /min Patsy Valencia APRN.MARKER MACHINE Work Phone: [facility] 03-16-2022 10:27-0500 SaO2% (BldA) [Mass fraction] 99 % Patsy Valencia APRN.MARKER MACHINE Work Phone: [facility] 03-16-2022 10:27-0500 Systolic blood pressure 116 mm[Hg] Patsy Valencia APRN.MARKER MACHINE Work Phone: [facility] 01-07-2022 10:18-0500 Body mass index (BMI) [Ratio] 17.4 kg/m2 Dr. Donnell Dooley Work Phone: [facility] 01-07-2022 10:18-0500 Body temperature 96.8 [degF] Dr. Donnell Dooley Work Phone: [facility] 01-07-2022 10:18-0500 Body weight 41.[address] Donnell Dooley Work Phone: [facility] 01-07-2022 10:18-0500 Diastolic blood pressure 67 mm[Hg] Dr. Donnell Dooley Work Phone: [facility] 01-07-2022 10:18-0500 Heart rate 72 /min Dr. Donnell Dooley Work Phone: [facility] 01-07-2022 10:18-0500 Respiratory rate 18 /min Dr. Donnell Dooley Work Phone: [facility] 01-07-2022 10:18-0500 SaO2% (BldA) [Mass fraction] 93 % Dr. Donnell Dooley Work Phone: [facility] 01-07-2022 10:18-0500 Systolic blood pressure 111 mm[Hg] Dr. Donnell Dooley Work Phone: [facility] 12-09-2021 13:20-0400 Body height 152.4 cm Donnell Dooley MD Work Phone: [facility] 12-09-2021 13:20-0400 Body weight 40.1 kg Donnell Dooley MD Work Phone: [facility] 12-09-2021 13:20-0400 Diastolic blood pressure 72 mm[Hg] Donnell Dooley MD Work Phone: [facility] 12-09-2021 13:20-0400 Systolic blood pressure 114 mm[Hg] Donnell Dooley MD Work Phone: [facility] 09-12-2021 11:42-0400 Body height 154.[address] Donnell Dooley Work Phone: [facility] Work Phone: 09-12-2021 11:42-0400 Body mass index (BMI) [Ratio] 18.3 kg/m2 Dr. Donnell Dooley Work Phone: [facility] Work Phone: 09-12-2021 11:42-0400 Body temperature 97.4 [degF] Dr. Donnell Dooley Work Phone: [facility] Work Phone: 09-12-2021 11:42-0400 Body weight 43.[address] Donnell Dooley Work Phone: [facility] Work Phone: 09-12-2021 11:42-0400 Diastolic blood pressure 85 mm[Hg] Dr. Donnell Dooley Work Phone: [facility] Work Phone: 09-12-2021 11:42-0400 Heart rate 71 /min Dr. Donnell Dooley Work Phone: [facility] Work Phone: 09-12-2021 11:42-0400 Respiratory rate 16 /min Dr. Donnell Dooley Work Phone: [facility] Work Phone: 09-12-2021 11:42-0400 SaO2% (BldA) [Mass fraction] 97 % Dr. Donnell Dooley Work Phone: [facility] Work Phone: 09-12-2021 11:42-0400 Systolic blood pressure 147 mm[Hg] Dr. Donnell Dooley Work Phone: [facility] Work Phone: 09-04-2021 15:56-0400 Body weight 44 kg Donnell Dooley MD Work Phone: [facility] 09-04-2021 15:56-0400 Diastolic blood pressure 82 mm[Hg] Donnell Dooley MD Work Phone: [facility] 09-04-2021 15:56-0400 Heart rate 72 /min Donnell Dooley MD Work Phone: [facility] 09-04-2021 15:56-0400 Systolic blood pressure 162 mm[Hg] Donnell Dooley MD Work Phone: [facility] 08-08-2021 11:47-0400 Diastolic blood pressure 90 mm[Hg] Dr. Donnell Dooley Work Phone: [facility] Work Phone: 08-08-2021 11:47-0400 Systolic blood pressure 150 mm[Hg] Dr. Donnell Dooley Work Phone: [facility] Work Phone: 08-08-2021 11:44-0400 Body mass index (BMI) [Ratio] 18.3 kg/m2 Dr. Donnell Dooley Work Phone: [facility] Work Phone: 08-08-2021 11:44-0400 Body temperature 99.1 [degF] Dr. Donnell Dooley Work Phone: [facility] Work Phone: 08-08-2021 11:44-0400 Body weight 43.[address] Donnell Dooley Work Phone: [facility] Work Phone: 08-08-2021 11:44-0400 Heart rate 72 /min Dr. Donnell Dooley Work Phone: [facility] Work Phone: 08-08-2021 11:44-0400 Respiratory rate 20 /min Dr. Donnell Dooley Work Phone: [facility] Work Phone: 08-08-2021 11:44-0400 SaO2% (BldA) [Mass fraction] 100 % Dr. Donnell Dooley Work Phone: [facility] Work Phone: 08-04-2021 11:23-0400 Body temperature 98.1 [degF] Jane Mcmillan MD Work Phone: [facility] 08-04-2021 11:23-0400 Body weight 43.55 kg Jane Mcmillan MD Work Phone: [facility] 08-04-2021 11:23-0400 Diastolic blood pressure 77 mm[Hg] Jane Mcmillan MD Work Phone: [facility] 08-04-2021 11:23-0400 Heart rate 54 /min Jane Mcmillan MD Work Phone: [facility] 08-04-2021 11:23-0400 Systolic blood pressure 125 mm[Hg] Jane Mcmillan MD Work Phone: [facility] 07-03-2021 10:04-0400 Body mass index (BMI) [Ratio] 18.1 kg/m2 Dr. Donnell Dooley Work Phone: [facility] Work Phone: 07-03-2021 10:04-0400 Body temperature 97.7 [degF] Dr. Donnell Dooley Work Phone: [facility] Work Phone: 07-03-2021 10:04-0400 Body weight 43.[address] Donnell Dooley Work Phone: [facility] Work Phone: 07-03-2021 10:04-0400 Diastolic blood pressure 77 mm[Hg] Dr. Donnell Dooley Work Phone: [facility] Work Phone: 07-03-2021 10:04-0400 Heart rate 74 /min Dr. Donnell Dooley Work Phone: [facility] Work Phone: 07-03-2021 10:04-0400 Respiratory rate 17 /min Dr. Donnell Dooley Work Phone: [facility] Work Phone: 07-03-2021 10:04-0400 SaO2% (BldA) [Mass fraction] 98 % Dr. Donnell Dooley Work Phone: [facility] Work Phone: 07-03-2021 10:04-0400 Systolic blood pressure 125 mm[Hg] Dr. Donnell Dooley Work Phone: [facility] Work Phone: 06-04-2021 14:05-0400 Body weight 43.55 kg Donnell Dooley MD Work Phone: [facility] 06-04-2021 14:05-0400 Diastolic blood pressure 82 mm[Hg] Donnell Dooley MD Work Phone: [facility] 06-04-2021 14:05-0400 Heart rate 70 /min Dnonell Dooley MD Work Phone: [facility] 06-04-2021 14:05-0400 SaO2% (BldA) [Mass fraction] 99 % Donnell Dooley MD Work Phone: [facility] 06-04-2021 14:05-0400 Systolic blood pressure 138 mm[Hg] Donnell Dooley MD Work Phone: [facility] 05-29-2021 09:44-0400 Body mass index (BMI) [Ratio] 18.7 kg/m2 Dr. Donnell Dooley Work Phone: [facility] Work Phone: 05-29-2021 09:44-0400 Body weight 44.[address] Donnell Dooley Work Phone: [facility] Work Phone: 05-29-2021 09:44-0400 Diastolic blood pressure 79 mm[Hg] Dr. Donnell Dooley Work Phone: [facility] Work Phone: 05-29-2021 09:44-0400 Heart rate 72 /min Dr. Donnell Dooley Work Phone: [facility] Work Phone: 05-29-2021 09:44-0400 SaO2% (BldA) [Mass fraction] 91 % Dr. Donnell Dooley Work Phone: [facility] Work Phone: 05-29-2021 09:44-0400 Systolic blood pressure 156 mm[Hg] Dr. Donnell Dooley Work Phone: [facility] Work Phone: 10-22-2016 13:38-0400 BMI (Body Mass Index) 18.17 kg/m2 [facility] Work Phone: 10-22-2016 13:38-0400 BP Diastolic 62 mm[Hg] Thao Archer RN [facility] Work Phone: 10-22-2016 13:38-0400 BP Systolic 116 mm[Hg] Thao Archer RN [facility] Work Phone: 10-22-2016 13:38-0400 Height 154.94 cm [facility] Work Phone: 10-22-2016 13:38-0400 Pulse (Heart Rate) 60 /min [facility] Work Phone: 10-22-2016 13:38-0400 Respiratory Rate 16 /min [facility] Work Phone: 10-22-2016 13:38-0400 Weight 43.64 kg [facility] Work Phone: Encounters Encounter Date Encounter Type Care Provider Facility Start: 08-22-2024 Evaluation and management of inpatient Dr. Naeem Barnett DO -[facility] Work Phone: Start: 07-12-2024 End: 07-12-2024 ambulatory DONNELL DOOLEY Facility:[facility] Start: 07-12-2024 Patient encounter procedure DONNELL DOOLEY [facility] Start: 06-28-2024 End: 06-28-2024 ambulatory Hannah Mills MA [facility] Start: 06-28-2024 End: 06-28-2024 Patient encounter procedure Hannah Mills MA [facility] Comment on above: Population Health Na vigation Outreach ([facility] [employer] [facility] ) Start: 05-11-2024 End: 05-11-2024 ambulatory Hannah Mills MA [facility] Start: 05-11-2024 End: 05-11-2024 Patient encounter procedure Hannah Mills MA [facility] Comment on above: Population Health Na vigation Outreach ([facility] [employer]) Start: 04-24-2024 End: 04-24-2024 Telephone encounter Reena Ricardo Arango DO Work Phone: [facility] [place] Start: 04-11-2024 End: 04-13-2024 Follow-up encounter [facility] Work Phone: Vasculary Surgery Start: 03-22-2024 End: 03-22-2024 Telephone encounter Donnell Dooley MD Work Phone: [facility] [place] Comment on above: Release Of Medical R ecords Start: 03-21-2024 End: 03-21-2024 ambulatory DONNELL Erica [facility] Facility:[facility] Start: 03-14-2024 ambulatory [facility] Facility:[facility] Start: 03-09-2024 End: 03-09-2024 Telephone encounter Donnell Dooley MD Work Phone: [facility] Comment on above: Patient Update Results Start: 02-28-2024 End: 02-28-2024 ambulatory [facility] Facility:[facility] Start: 02-28-2024 End: 02-28-2024 Patient encounter procedure Danika Helms Work Phone: Podiatry Comment on above: Onychomycosis (Prima ry Dx); Diminished pulses in lower extremity Start: 02-18-2024 [facility] Facility:[facility] Start: 02-18-2024 End: 02-18-2024 Telephone encounter Donnell Dooley MD Work Phone: [facility] Comment on above: Patient Update Start: 02-08-2024 [facility] Start: 02-07-2024 End: 02-11-2024 Telephone encounter Donnell Dooley MD Work Phone: [facility] Comment on above: Patient Update Start: 01-14-2024 End: 01-14-2024 Patient encounter procedure Donnell Dooley MD Work Phone: [facility] Comment on above: Mixed hyperlipidemia (Primary Dx); VHD (valvular heart disease); Meningioma (HCC); Meniere's disease of both ears; Pulmonary emphysema, unspecified emphysema type (HCC); Personal history of CLL (chronic lymphocytic leukemia); History of breast cancer; Mild cognitive impairment; Age-related osteoporosis without current pathological fracture Start: 01-14-2024 End: 01-14-2024 ambulatory [facility] Facility:[facility] Start: 01-12-2024 End: 01-12-2024 ambulatory Sheba Damian Facility:[facility] Start: 01-10-2024 End: 01-10-2024 ambulatory [facility] Facility:[facility] Start: 01-06-2024 End: 01-06-2024 Telephone encounter Donnell Dooley MD Work Phone: [facility] Comment on above: Orders Start: 10-17-2023 End: 10-17-2023 ambulatory Roger Boateng RN NURSE AIR TRAFFIC INSTRUCTOR Comment on above: Information Start: 10-17-2023 End: 10-17-2023 Patient encounter procedure Isabel Vegas RN NURSE AIR TRAFFIC INSTRUCTOR Comment on above: Clinical Update Start: 10-16-2023 End: 11-24-2023 Telephone encounter Desi Gomez MD Work Phone: [facility] Comment on above: Orders Start: 10-14-2023 ambulatory Donnell Dooley [facility] ty:[facility] Start: 10-13-2023 End: 10-13-2023 Telephone encounter Donnell Dooley MD Work Phone: [facility] Comment on above: Patient Update Start: 08-16-2023 Telephone encounter Morelia storm DRIER HELPER.MARKER MACHINE Work Phone: [facility] Comment on above: Results Start: 08-14-2023 End: 08-14-2023 ambulatory DONNELL DOOLEY Facility:[facility] Start: 08-14-2023 End: 08-14-2023 Patient encounter procedure Sav Mejía DRIER HELPER.MARKER MACHINE Work Phone: [facility] Comment on above: Eye pain, bilateral (Primary Dx) Start: 08-11-2023 End: 08-11-2023 ambulatory [facility] Facility:[facility] Start: 08-11-2023 End: 08-11-2023 Subsequent hospital visit by physician Ct Prep [facility] Cat Scan Comment on above: Pelvic pain [R10.2] Start: 08-04-2023 End: 08-04-2023 ambulatory [facility] Facility:[facility] Start: 08-04-2023 End: 08-04-2023 Office outpatient visit 25 minutes Morelia Hewitt APRN.MARKER MACHINE Work Phone: [facility] Comment on above: Pelvic pain (Primary Dx); UTI symptoms Start: 08-03-2023 ambulatory Donnell Dooley MD Work Phone: [facility] Start: 08-03-2023 E-mail encounter fro m caregiver [facility] Start: 08-03-2023 Letter encounter [facility] Comment on above: letter Start: 08-03-2023 Manual pelvic examination Donnell Dooley MD Work Phone: [facility] Comment on above: Pelvic Pain Start: 08-02-2023 ambulatory Donnell Dooley MD Work Phone: [facility] Start: 08-02-2023 Letter encounter Donnell jaimes MD Work Phone: [facility] Comment on above: letter request Start: 07-15-2023 Telephone encounter Amber Griffith APRN.FERRYBOAT HELPER Work Phone: [facility] Start: 07-13-2023 End: 07-13-2023 ambulatory Donnell ELLSWORTH Facility:[facility] Start: 06-28-2023 End: 06-28-2023 Patient encounter procedure Donnell Dooley MD Work Phone: [facility] Comment on above: Mixed hyperlipidemia (Primary Dx); VHD (valvular heart disease); Pulmonary emphysema, unspecified emphysema type (HCC); Chronic respiratory failure with hypoxia (HCC); Meniere's disease of both ears; Small B-cell lymphoma, unspecified body region (HCC); History of breast cancer; Personal history of CLL (chronic lymphocytic leukemia); Meningioma (HCC); Mild cognitive impairment; Ulcer of toe of right foot, limited to breakdown of skin (HCC) Start: 05-18-2023 Telephone encounter Amber Griffith APRN.FERRYBOAT HELPER Work Phone: [facility] Start: 05-18-2023 End: 05-18-2023 Office outpatient visit 15 minutes Amber Griffith APRN.FERRYBOAT HELPER Work Phone: [facility] Comment on above: Venous stasis ulcer of other part of lower leg limited to breakdown of skin, unspecified laterality, unspecified whether varicose veins present (HCC) (Primary Dx) Start: 05-14-2023 Telephone encounter Donnell Dooley MD Work Phone: [facility] [place] Comment on above: Wound dressing quest ion Start: 05-04-2023 End: 05-04-2023 Office outpatient visit 15 minutes Amber Griffith APRN.FERRYBOAT HELPER Work Phone: [facility] [place] Comment on above: Venous stasis ulcer of left lower leg with edema of left lower leg (HCC) (HCC) (Primary Dx) Start: 04-05-2023 End: 04-05-2023 Patient encounter procedure Dallas Calabrese APRN.MARKER MACHINE Work Phone: [facility] [place] Comment on above: Cellulitis of skin ( Primary Dx); Left ankle swelling; Discoloration of skin of lower leg; Acute left ankle pain; Blister of left lower extremity, initial encounter Start: 04-02-2023 [facility] Start: 04-02-2023 End: 04-02-2023 Subsequent hospital visit by physician [facility] Comment on above: Cellulitis of skin [ L03.90] Start: 04-02-2023 Telephone encounter [facility] Comment on above: Request for order Start: 04-02-2023 End: 04-02-2023 Patient encounter procedure Dallas Calabrese APRN.MARKER MACHINE Work Phone: [facility] [place] Comment on above: Cellulitis of skin ( Primary Dx); Left ankle swelling; Discoloration of skin of lower leg; Acute left ankle pain; Blister of left lower extremity, initial encounter; Localized edema Start: 01-27-2023 End: 01-27-2023 ambulatory Margarito Shields MD Work Phone: Hematology/Oncology Comment on above: Small B-cell lymphom a, unspecified body region (HCC) Start: 01-27-2023 End: 01-27-2023 Patient encounter procedure Margarito Shields MD Work Phone: [place] [facility] Start: 12-23-2022 Telephone encounter Donnell Dooley MD Work Phone: [facility] [place] Start: 12-23-2022 End: 12-23-2022 Patient encounter procedure Donnell Dooley MD Work Phone: [facility] Comment on above: Mild cognitive impai rment (Primary Dx); MVP (mitral valve prolapse); Mixed hyperlipidemia; Meningioma (HCC); History of breast cancer; Small B-cell lymphoma, unspecified body region (HCC); Age-related osteoporosis without current pathological fracture; Pulmonary emphysema, unspecified emphysema type (HCC); VHD (valvular heart disease) Start: 12-11-2022 Telephone encounter Donnell Dooley MD Work Phone: [facility] Comment on above: Forms Start: 12-08-2022 Telephone encounter Donnell Dooley MD Work Phone: [facility] Comment on above: Orders Start: 12-04-2022 Telephone encounter Donnell Dooley MD Work Phone: [facility] Comment on above: Pain on left side Start: 12-04-2022 End: 12-04-2022 Emergency department patient [facility] Start: 11-18-2022 End: 11-18-2022 Emergency department patient visit Dr. [facility] Start: 11-16-2022 Telephone encounter Donnell Dooley MD Work Phone: [facility] Comment on above: Patient Update; Orde rs Start: 10-29-2022 End: 10-29-2022 Patient encounter procedure Danika Helms Work Phone: Podiatry Comment on above: Post-operative state (Primary Dx); Callus of foot Start: 10-22-2022 End: 10-22-2022 Patient encounter procedure Danika Helms Work Phone: Podiatry Comment on above: Post-operative state (Primary Dx) Start: 10-19-2022 Telephone encounter Danika Linda Work Phone: Podiatry Start: 10-13-2022 End: 10-13-2022 Patient encounter procedure Danika Helms Work Phone: Podiatry Comment on above: Post-operative state (Primary Dx) Start: 10-12-2022 Telephone encounter Danika Linda Work Phone: Podiatry Comment on above: Appointment Patient Update Start: 10-12-2022 End: 10-12-2022 ambulatory DONNELL DOOLEY Facility:[facility] Start: 10-08-2022 Telephone encounter Danika Linda Work Phone: Podiatry Comment on above: Student Assistant - O ther Start: 10-07-2022 Telephone encounter Tianna Davidson APRN.CNP Work Phone: Pre Anesthesia Comment on above: Request for outside medical records Start: 10-06-2022 End: 10-06-2022 Patient encounter procedure Danika Helms Work Phone: Podiatry Comment on above: Onychomycosis (Prima ry Dx); Pain in toe of left foot; Pain in toe of right foot; Callus of foot; Hallux valgus of right foot Start: 10-05-2022 End: 10-05-2022 Patient encounter procedure Donnell Dooley MD Work Phone: [facility] [place] Comment on above: Mild cognitive impai rment (Primary Dx); Meningioma (HCC); Atrial fibrillation, unspecified type (HCC); Mixed hyperlipidemia; Mitral valve insufficiency, unspecified etiology; MVP (mitral valve prolapse); Chronic respiratory failure with hypoxia (HCC); Pulmonary emphysema, unspecified emphysema type (HCC); Personal history of CLL (chronic lymphocytic leukemia); History of breast cancer; Meniere's disease of both ears; Small B-cell lymphoma, unspecified body region (HCC); Age-related osteoporosis without current pathological fracture Start: 10-02-2022 Telephone encounter Donnell Dooley MD Work Phone: [facility] [place] Comment on above: Moving to [facility] Start: 09-30-2022 Telephone encounter Donnell Dooley MD Work Phone: [facility] [place] Comment on above: Letter Start: 09-17-2022 Telephone encounter Donnell Dooley MD Work Phone: [facility] Comment on above: Release Of Medical R ecords Start: 08-11-2022 End: 08-11-[address] Donnell Dooley Work Phone: [facility] [place] Work Phone: Start: 07-23-2022 End: 07-23-2022 Patient encounter procedure Danika Helms Work Phone: Podiatry Comment on above: Callus of foot (Prim claudine Dx); Hallux valgus of right foot Start: 06-18-2022 End: 06-18-2022 Patient encounter procedure Danika Hemls Work Phone: Podiatry Comment on above: Hallux valgus of rig ht foot (Primary Dx); Callus of foot; Open wound of toe, initial encounter Start: 06-17-2022 Telephone encounter Donnell Dooley MD Work Phone: [facility] Comment on above: Patient Update Results Start: 06-15-2022 End: 06-15-2022 Patient encounter procedure Donnell Dooley MD Work Phone: [facility] Comment on above: Meningioma (HCC) (Pr imary Dx); Small B-cell lymphoma, unspecified body region (HCC); Pulmonary emphysema, unspecified emphysema type (HCC); Chronic respiratory failure with hypoxia (HCC); Atrial fibrillation, unspecified type (HCC); Mild cognitive impairment; MVP (mitral valve prolapse); Age-related osteoporosis without current pathological fracture; Mixed hyperlipidemia Start: 05-19-2022 Telephone encounter Donnell Dooley MD Work Phone: [facility] Comment on above: Forms Start: 05-14-2022 End: 05-14-2022 Patient encounter procedure Danika Helms Work Phone: Podiatry Comment on above: Open wound of toe, i nitial encounter (Primary Dx) Start: 04-30-2022 End: 04-30-2022 Patient encounter procedure Danika Helms Work Phone: Podiatry Comment on above: Onychomycosis (Prima ry Dx); Hallux valgus of right foot; Callus of foot Start: 04-15-2022 ambulatory Donnell Dooley MD Work Phone: [facility] Comment on above: Neurologic Problem Start: 04-15-2022 End: 04-15-2022 Emergency department patient visit Dr. Donnell Dooley Work Phone: [facility] Start: 03-25-2022 End: 03-25-2022 Patient encounter procedure Danika Helms Work Phone: Podiatry Comment on above: Hallux valgus of rig ht foot (Primary Dx); Callus of foot; Ulcer of toe of right foot, limited to breakdown of skin (HCC) Start: 03-16-2022 ambulatory Donnell Dooley MD Work Phone: [facility] Comment on above: Cough Start: 03-16-2022 End: 03-16-2022 Subsequent hospital visit by physician Xr [facility] Work Phone: Radiology Comment on above: Acute cough [R05.1] Start: 03-16-2022 End: 03-16-2022 Patient encounter procedure Patsy Valencia APRN.CNP Work Phone: [facility] Comment on above: Acute cough (Primary Dx); Rhinosinusitis Start: 01-27-2022 End: 01-27-2022 Patient encounter procedure Danika Helms Work Phone: Podiatry Comment on above: Hallux valgus of rig ht foot (Primary Dx); Ulcer of toe of right foot, limited to breakdown of skin (HCC) Start: 01-07-2022 End: 01-07-[address] Donnell Dooley Work Phone: [facility] Start: 12-22-2021 End: 12-22-2021 Patient encounter procedure Danika Helms Work Phone: Podiatry Comment on above: Callus of foot (Prim claudine Dx); Hallux valgus of right foot; Onychomycosis; Pain in toe of left foot Start: 12-09-2021 End: 12-09-2021 Patient encounter procedure Donnell Dooley MD Work Phone: [facility] [place] Comment on above: Mild cognitive impai rment (Primary Dx); Encounter for immunization; Meningioma (HCC); Mitral valve insufficiency, unspecified etiology; Pulmonary emphysema, unspecified emphysema type (HCC); Small B-cell lymphoma, unspecified body region (HCC) Start: 11-20-2021 ambulatory No Pcp [facility] [place] Start: 11-06-2021 End: 11-06-2021 Patient encounter procedure Danika Scooter Work Phone: Podiatry Comment on above: Callus of foot (Prim claudine Dx); Hallux valgus of right foot Start: 10-29-2021 Telephone encounter Donnell Dooley MD Work Phone: [facility] [place] Comment on above: Orders Start: 10-23-2021 ambulatory No Pcp (Historical) [facility] [place] Start: 10-09-2021 End: 10-09-2021 Patient encounter procedure Danika Scooter Work Phone: Podiatry Comment on above: Hallux valgus of rig ht foot (Primary Dx); Callus of foot; Onychomycosis Start: 09-22-2021 Telephone encounter Donnell Dooley MD Work Phone: [facility] [place] Comment on above: Patient Update; Medi cation Request Start: 09-16-2021 Telephone encounter Donnell Dooley MD Work Phone: [facility] [place] Comment on above: Results Start: 09-12-2021 End: 09-12-2021 Emergency department patient visit Dr. Donnell Dooley Work Phone: [place] [facility] Start: 09-11-2021 Telephone encounter Donnell Dooley MD Work Phone: [facility] [place] Comment on above: Low Back Pain (& francisco ateral legs) Start: 09-08-2021 Telephone encounter Donnell Dooley MD Work Phone: [facility] [place] Comment on above: Patient Update; Medi cation Problem Start: 09-05-2021 Telephone encounter Donnell Dooley MD Work Phone: [facility] Comment on above: Insurance Authorizat ion (Rivastigmine patch ) Start: 09-04-2021 End: 09-04-2021 Subsequent hospital visit by physician Xr [facility] [place] Work Phone: Radiology Comment on above: Sciatica, right side [M54.31] Start: 09-04-2021 End: 09-04-2021 Patient encounter procedure Donnell Dooley MD Work Phone: [facility] Comment on above: Mild cognitive disor ruiz (Primary Dx); Pulmonary emphysema, unspecified emphysema type (HCC); Sciatica, right side; History of breast cancer; Personal history of CLL (chronic lymphocytic leukemia) Start: 08-19-2021 End: 08-19-2021 Patient encounter procedure Danika Helms Work Phone: Podiatry Comment on above: Hallux valgus of rig ht foot (Primary Dx); Callus of foot Start: 08-08-2021 Non-patient / Non-visit Dr. Jessica Dooley Work Phone: [facility] Start: 08-04-2021 End: 08-04-2021 ambulatory Jane Mcmillan MD Work Phone: Hematology/Oncology Comment on above: History of breast ca ncer (Primary Dx); Small B-cell lymphoma, unspecified body region (HCC); Meningioma (HCC) Start: 08-04-2021 End: 08-04-2021 Patient encounter procedure Jane Mcmillan MD Work Phone: [facility] Start: 07-03-2021 End: 07-03-[address] Donnell [facility] Start: 06-04-2021 End: 06-04-2021 Patient encounter procedure Donnell Dooley MD Work Phone: [facility] Comment on above: Hypokalemia (Primary Dx); Mild cognitive impairment; Meningioma (HCC); Pulmonary emphysema, unspecified emphysema type (HCC); Personal history of CLL (chronic lymphocytic leukemia) Start: 05-29-2021 End: 05-29-[address] Donnell Dooley Work Phone: [facility] Start: 05-26-2021 End: 05-26-2021 Subsequent hospital visit by physician Mri Radio [facility] (I-Stat/1.5t) Work Phone: Radiology Comment on above: Brain mass [G93.89] Start: 05-26-2021 ambulatory Donnell Dooley MD Work Phone: [facility] [place] Comment on above: Madison Lofton, thru sh Start: 05-06-2021 End: 05-06-2021 Subsequent hospital visit by physician Xr [facility] [place] Work Phone: Radiology Comment on above: Mild cognitive impai rment [G31.84] Procedures Date Procedure Procedure Detail Performing Clinician Start: 08-22-[address] Donnell Dooely MD Work Phone: Start: 08-22-2024 X-ray of chest, PA a nd lateral views Dr. Donnell Dooley MD Work Phone: Start: 08-22-2024 SARS-CoV-2, Influenz a & RSV (PCR) Dr. Donnell Dooley MD Work Phone: Start: 08-04-2023 Urnls dip stick/tabl et rgnt auto w/o microscopy Morelia Hewitt DRIER HELPER.MARKER MACHINE Work Phone: Start: 06-28-2023 Adult depression scr eening assessment Donnell Dooley MD Work Phone: Start: 04-02-2023 Dup-scan xtr veins unilateral/limited study Dallas Calabrese DRIER HELPER.MARKER MACHINE Work Phone: Start: 11-18-2022 CT angiography of ch est with contrast Dr. Donnell Dooley Work Phone: Start: 11-18-2022 CT of head without contrast Dr. Donnell Dooley Work Phone: Start: 11-18-2022 Plain chest X-ray Dr. Augusto Dooley Work Phone: Start: 04-15-2022 CT of head without contrast Dr. Donnell Dooley Work Phone: Start: 03-16-2022 Radiologic exam chest 2 views Patsy Valencia APRN.CNP Work Phone: Start: 12-09-2021 INFLUENZA SEASONAL QUADRIVALENT HIGH DOSE AGE 65+ Donnell Dooley MD Work Phone: Start: 12-09-2021 PFIZER-BIONTECH COVI D-19 BIVALENT BOOSTER VACCINE, AGE 12+ YR Donnell Dooley MD Work Phone: Start: 09-12-2021 CT of lumbar spine Dr. Donnell Dooley Work Phone: Start: 09-04-2021 Radex spine lumbosac ral 2/3 views Donnell Dooley MD Work Phone: Start: 09-04-2021 Adult depression scr eening assessment Donnell Dooley MD Work Phone: Start: 05-26-2021 Mri brain brain stem w/o w/contrast material Donnell Dooley MD Work Phone: Start: 05-06-2021 Radiologic exam chest 2 views Donnell Dooley MD Work Phone: Start: 06-10-2020 Adult depression scr eening assessment Donnell Dooley MD Work Phone: Start: 10-22-2016 End: 11-09-2016 Echocardiography Ronak Roper MD Start: 10-22-2016 End: 10-22-2016 Electrocardiogram, complete Ronak fields MD Start: 10-22-2016 End: 10-22-2016 Follow Up Appt 1 year Ronak Gorman Start: 10-22-2016 End: 10-22-2016 PFM Ronak Roper MD Plan of Treatment Date Care Activity Detail Author Start: 01-09-2027 Diabetes Screening Diabetes Screenin g [facility] Start: 01-27-2026 Diabetes Screening Diabetes Screenin g [facility] Start: 10-09-2025 DIABETES SCREEN DIABETES SCREEN [facility] Start: 10-09-2025 Diabetes Screening Diabetes Screenin g [facility] Start: 07-09-2025 DIABETES SCREEN DIABETES SCREEN [facility] Start: 06-15-2025 DIABETES SCREEN DIABETES SCREEN [facility] Start: 08-22-2024 Verification routine [facility] Start: 08-22-2024 Admission procedure [facility] Start: 08-22-2024 Hospital admission, emergency, from emergency room, medical nature [facility] Start: 08-22-2024 [facility] Start: 08-22-2024 Respiratory Panel (PCR) Respiratory Panel (PCR) [facility] Start: 08-04-2024 DIABETES SCREEN DIABETES SCREEN [facility] Start: 07-12-2024 End: 07-12-2024 Patient encounter procedure 07/12/2024 1:00 PM EDT Office Visit Family [facility] [address] [place] [address] Donnell Dooley MD [address] [place], [place] [id number] Medicare Wellness [facility] Comment on above: Medicare Wellness Start: 06-27-2024 Anxiety Screening Anxiety Screening [facility] Start: 06-27-2024 Covid-19 Vaccine () Covid-19 Vaccine () [facility] Comment on above: Postponed from 03/02 (Declined at this time) Start: 06-27-2024 Depression Screening Depression Scre ening [facility] Start: 06-05-2024 Covid-19 Vaccine (8 - Moderna risk season) Covid-19 Vaccine (8 - Moderna risk ) [facility] Start: 05-06-2024 DIABETES SCREEN DIABETES SCREEN [facility] Start: 04-05-2024 Annual PCP Team Manager Merchandising glenda Disease Visit Annual PCP Team Chronic Disease Visit [facility] Start: 04-02-2024 Annual PCP Team Manager Merchandising glenda Disease Visit Annual PCP Team Chronic Disease Visit [facility] Start: 03-21-2024 End: 03-21-2024 Patient encounter procedure 03/21/2024 11:00 AM EST Office Visit [facility] [address] [place] [address] Onychomycosis [B35.1] [facility] Comment on above: Onychomycosis [B35.1 ] Start: 02-28-2024 End: 02-28-2024 Patient encounter procedure 02/28/2024 10:45 AM EST Office Visit Podiatry [address] [place] [address] Danika Helms [address] [address] foot and nail pain Podiatry Comment on above: foot and nail pain Start: 02-23-2024 Advance Directive Discussion Advance Directive Discussion [facility] Start: 01-31-2024 Covid-19 Vaccine ( season) Covid-19 Vaccine () [facility] Start: 01-26-2024 End: 01-26-2024 ambulatory [facility] Comment on above: CBC/LDH* 1 YR OV/LABS EARLY* Start: 01-25-2024 End: 01-25-2024 ambulatory [facility] Comment on above: CBC/LDH* 1 YR OV/LABS EARLY* Start: 01-14-2024 End: 01-14-2024 Patient encounter procedure 01/14/2024 2:20 PM EST Office Visit Family Shanique Andrade [address] [place] [address] Donnell Dooley MD [address] [place] [address] 6 month follow up Family [facility]ique Andrade Comment on above: 6 month follow up Start: 01-10-2024 End: 01-10-2024 ambulatory 01/10/2024 7:15 AM EST Results Only [facility] [address] [place] [address] [place] [facility] Start: 01-07-2024 End: 01-07-2024 Patient encounter procedure 01/07/2024 10:40 AM EST Office Visit Family Shanique Andrade [address] [place] [address] Donnell Dooley MD [address] [place] [address] 6 month follow up Family [facility]ique Andrade Comment on above: 6 month follow up Start: 01-06-2024 End: 04-06-2024 CBC W Auto Differential panel - Blood COMPLETE BLOOD COUNT AND DIFFERENTIAL Lab Routine Mixed hyperlipidemia Small B-cell lymphoma, unspecified body region (HCC) Expected: 01/06/2024, Expires: 04/06/2024 [facility] Work Phone: Comment on above: Expected: 01/06/2024 , Expires: 04/06/2024 Start: 01-06-2024 End: 04-06-2024 Comprehensive metabolic 2000 panel - Serum or Plasma COMPREHENSIVE METABOLIC PANEL Lab Routine Mixed hyperlipidemia Small B-cell lymphoma, unspecified body region (HCC) Expected: 01/06/2024, Expires: 04/06/2024 [facility] Comment on above: Expected: 01/06/2024 , Expires: 04/06/2024 Start: 01-06-2024 End: 04-06-2024 Lipid 1996 panel - Serum or Plasma LIPID PANEL BASIC Lab Routine Mixed hyperlipidemia Small B-cell lymphoma, unspecified body region (HCC) Expected: 01/06/2024, Expires: 04/06/2024 [facility] Comment on above: Expected: 01/06/2024 , Expires: 04/06/2024 Start: 12-24-2023 Annual PCP Team Manager Merchandising glenda Disease Visit Annual PCP Team Chronic Disease Visit [facility] Start: 12-24-2023 Covid-19 Vaccine () Covid-19 Vaccine () [facility] Comment on above: Postponed from 10/23 (Declined at this time) Start: 12-24-2023 RSV Vaccine (1 - 1-d ose 60+ series) RSV Vaccine (1 - 1-dose 60+ series) [facility] Comment on above: Postponed from 06/07 (Declined at this time) Start: 10-24-2023 Covid-19 Vaccine ( season) Covid-19 Vaccine () [facility] Start: 10-24-2023 Influenza vaccination Influenza Vacc ine (#1) [facility] Start: 10-06-2023 ANNUAL PCP TEAM DELIVERY ROUTE DRIVER GLENDA DISEASE VISIT ANNUAL PCP TEAM CHRONIC DISEASE VISIT [facility] Start: 10-06-2023 COVID-19 VACCINE (6 - Moderna risk series) COVID-19 VACCINE (6 - Moderna risk series) [facility] Comment on above: Postponed from 02/03 (Declined at this time) Start: 08-11-2023 End: 08-11-2023 Patient encounter procedure Cat Scan Comment on above: Pelvic pain [R10.2] Start: 08-04-2023 End: 08-04-2023 Patient encounter procedure 08/04/2023 9:00 AM EDT Office Visit [facility] [address], [place] [id number] Morelia Hewitt APRN.MARKER MACHINE [address], [place] [id number] Pelvic Pain; See nurse Triage note [facility] Comment on above: Pelvic Pain; See evan se Triage note Start: 06-16-2023 ANNUAL PCP TEAM DELIVERY ROUTE DRIVER GLENDA DISEASE VISIT ANNUAL PCP TEAM CHRONIC DISEASE VISIT [facility] Start: 03-02-2023 Covid-19 Vaccine () Covid-19 Vaccine () [facility] Start: 02-22-2023 Advance Directive Discussion Advance Directive Discussion [facility] Start: 02-22-2023 Depression Assessment Depression Ass essment [facility] Start: 01-27-2023 End: 04-28-2023 CBC W Auto Differential panel - Blood CBC + DIFF Lab Routine Small B-cell lymphoma, unspecified body region (HCC) Expected: 01/27/2023, Expires: 04/28/2023 [facility] Work Phone: Comment on above: Expected: 01/27/2023 , Expires: 04/28/2023 Start: 01-27-2023 End: 04-28-2023 Lactate dehydrogenase [Enzymatic activity/volume] in Serum or Plasma LD LACTATE DEHYDRO Lab Routine Small B-cell lymphoma, unspecified body region (HCC) Expected: 01/27/2023, Expires: 04/28/2023 [facility] Work Phone: Comment on above: Expected: 01/27/2023 , Expires: 04/28/2023 Start: 12-09-2022 ANNUAL PCP TEAM DELIVERY ROUTE DRIVER GLENDA DISEASE VISIT ANNUAL PCP TEAM CHRONIC DISEASE VISIT [facility] Start: 11-18-2022 [facility] Start: 10-23-2022 Covid-19 Vaccine ( season) Covid-19 Vaccine () [facility] Start: 10-23-2022 Influenza vaccination C [facility] Start: 09-04-2022 [facility] DEPRESSION SCREENING [facility] Start: 09-04-2022 ANNUAL PCP TEAM DELIVERY ROUTE DRIVER GLENDA DISEASE VISIT ANNUAL PCP TEAM CHRONIC DISEASE VISIT [facility] Start: 06-17-2022 End: 08-17-2022 Basic metabolic 2000 panel - Serum or Plasma BASIC METABOLIC PNL Lab Routine Hypercalcemia Expected: 06/17/2022, Expires: 08/17/2022 [facility] Work Phone: Comment on above: Expected: 06/17/2022 , Expires: 08/17/2022 Start: 06-17-2022 End: 08-17-2022 Calcium.ionized [Moles/volume] in Blood CALCIUM IONIZED BLOOD Lab Routine Hypercalcemia Expected: 06/17/2022, Expires: 08/17/2022 [facility] Work Phone: Comment on above: Expected: 06/17/2022 , Expires: 08/17/2022 Start: 06-15-2022 End: 08-15-2022 25-hydroxyvitamin D3 [Mass/volume] in Serum or Plasma [facility] Work Phone: Comment on above: Expected: 06/15/2022 , Expires: 08/15/2022 Start: 06-15-2022 End: 08-15-2022 Comprehensive metabolic 2000 panel - Serum or Plasma [facility] Work Phone: Comment on above: Expected: 06/15/2022 , Expires: 08/15/2022 Start: 06-15-2022 End: 08-15-2022 LIPID PANEL, NONFASTING [facility] Work Phone: Comment on above: Expected: 06/15/2022 , Expires: 08/15/2022 Start: 06-04-2022 ANNUAL PCP TEAM DELIVERY ROUTE DRIVER GLENDA DISEASE VISIT ANNUAL PCP TEAM CHRONIC DISEASE VISIT [facility] Start: 05-06-2022 ANNUAL PCP TEAM DELIVERY ROUTE DRIVER GLENDA DISEASE VISIT ANNUAL PCP TEAM CHRONIC DISEASE VISIT [facility] Start: 02-22-2022 ADVANCE DIRECTIVE DISCUSSION ADVANCE DIRECTIVE DISCUSSION [facility] Start: 02-22-2022 DEPRESSION ASSESSMENT DEPRESSION ASS ESSMENT [facility] Start: 10-23-2021 Influenza vaccination INFLUENZA (#1) [facility] Start: 10-01-2021 HEPATITIS C SCREENING HEPATITIS C [facility] Comment on above: Postponed from 06/07 (Declined at this time) Start: 07-03-2021 Patient referral [facility] Work Phone: Start: 06-10-2021 Adult depression scr eening assessment DEPRESSION SCREENING [facility] Start: 06-04-2021 End: 08-04-2021 POTASSIUM BLD POTASSIUM BLD Lab Routine Hypokalemia Expected: 06/04/2021, Expires: 08/04/2021 [facility] Work Phone: Comment on above: Expected: 06/04/2021 , Expires: 08/04/2021 Start: 06-04-2021 End: 08-04-2021 Thyrotropin [Units/volume] in Serum or Plasma TSH BLD Lab Routine Hypokalemia Mild cognitive impairment Expected: 06/04/2021, Expires: 08/04/2021 [facility] Work Phone: Comment on above: Expected: 06/04/2021 , Expires: 08/04/2021 Start: 02-22-2021 ADVANCE DIRECTIVE DISCUSSION ADVANCE DIRECTIVE DISCUSSION [facility] Start: 02-22-2021 DEPRESSION ASSESSMENT DEPRESSION ASS ESSMENT [facility] Start: 10-01-2020 COVID-19 VACCINE (3 - Booster for Moderna series) COVID-19 VACCINE (3 - Booster for Moderna series) [facility] Start: 05-29-2020 COVID-19 VACCINE (3 - Moderna risk series) COVID-19 VACCINE (3 - Moderna risk series) [facility] Start: 11-01-2017 End: 11-01-2017 Appointment Appointment [facility] Work Phone: Start: 10-22-2016 End: 10-22-2016 Appointment Appointment [facility] Work Phone: Start: 10-22-2016 End: 10-23-2016 Echocardiography Echocardiogram (complete) [facility] Work Phone: Start: 10-22-2016 End: 10-22-2016 Follow Up Appt 1 year Follow Up Appt 1 year [facility] Work Phone: Start: 10-22-2016 End: 10-22-2016 PFM PFM [facility] Work Phone: Start: 2002 RSV Vaccine (1 - 1-d ose 60+ series) RSV Vaccine (1 - 1-dose 60+ series) [facility] Start: 1961 Urine microalbumin profile DTAP,TDAP ,TD (1 - Tdap) [facility] Bacteria identified in Urine by Culture URINE CULTURE Microbiology Routine Pelvic pain 08/04/2023 9:44 AM EDT [facility] End: 09-02-2024 CT Abdomen and Pelvis WO contrast CT ABD/PEL WO IVCON Radiology Routine Pelvic pain 1 Occurrences starting 08/04/2023 until 09/02/2024 [facility] Work Phone: Comment on above: 1 Occurrences starti ng 08/04/2023 until 09/02/2024 CT Abdomen and Pelvi s WO contrast CT ABD/PEL WO IVCON Radiology Routine Pelvic pain 08/11/2023 3:50 PM EDT [facility] Work Phone: Magnesium measurement [facility] Patient [facility] Work Phone: Patient referral [facility] Work Phone: Radex spine lumbosac ral 2/3 views XR LUMBAR GENERAL 3V AP/LAT/L5-S1 Radiology Routine Sciatica, right side 09/04/2021 4:53 PM EDT [facility] Work Phone: End: 12-16-2023 Radiologic exam chest 2 views XR CHEST 2V FRONTAL/LAT Radiology Routine Chest pain, unspecified type 1 Occurrences starting 11/16/2022 until 12/16/2023 [facility] Work Phone: Comment on above: 1 Occurrences starti ng 11/16/2022 until 12/16/2023 Respiratory pathogen s DNA and RNA panel - Respiratory specimen by AIME with probe detection [facility] End: 09-15-2024 US Kidney - bilateral and Urinary bladder US KIDNEY/BLADDER Radiology Routine Urinary frequency 1 Occurrences starting 08/17/2023 until 09/15/2024 [facility] Work Phone: Comment on above: 1 Occurrences starti ng 08/17/2023 until 09/15/2024 End: 04-02-2024 US Lower extremity vein US LEG VEIN DVT UNL [facility] Vascular Lab STAT Cellulitis of skin Left ankle swelling Discoloration of skin of lower leg Acute left ankle pain Blister of left lower extremity, initial encounter Localized edema 1 Occurrences starting 04/02/2023 until 04/02/2024 [facility] Work Phone: Comment on above: 1 Occurrences starti ng 04/02/2023 until 04/02/2024 End: 02-27-2025 US.doppler Extremity arteries - bilateral for physiologic artery study PVR ANK PRESS FRANCISCO [facility] Vascular Lab Routine Onychomycosis Diminished pulses in lower extremity 1 Occurrences starting 02/28/2024 until 02/27/2025 [facility] Work Phone: Comment on above: 1 Occurrences starti ng 02/28/2024 until 02/27/2025 End: 11-05-2023 XR FOOT GENERAL 3V AP/LAT/OBL RIGHT XR FOOT GENERAL 3V AP/LAT/OBL RIGHT Radiology Routine Callus of foot 1 Occurrences starting 10/06/2022 until 11/05/2023 [facility] Work Phone: Comment on above: 1 Occurrences starti ng 10/06/2022 until 11/05/2023 XR FOOT GENERAL 3V AP/LAT/OBL RIGHT XR FOOT GENERAL 3V AP/LAT/OBL RIGHT Radiology Routine Callus of foot 10/06/2022 2:35 PM EDT [facility] Work Phone: [facility] Immunizations Immunization Date Immunization Notes Care Provider Yury baldwin 12-06-2023 COVID-19 vaccine, unspecified formulation Donnell Dooley MD Work Phone: [facility] 12-06-2023 influenza virus vacc ine, unspecified formulation Donnell Dooley MD Work Phone: [facility] 02-09-2023 respiratory syncytia l virus (RSV) vaccine, unspecified formulation Donnell Dooley MD Work Phone: [facility] 01-05-2023 COVID-19 vaccine, ag e 12+ yr, season (Divshot) Margarito Shields MD Work Phone: [facility] 12-10-2022 influenza, high dose seasonal, preservative-free Donnell Dooley MD Work Phone: [facility] 10-19-2023 influenza virus vacc ine, unspecified formulation Donnell Dooley MD Work Phone: [facility] 12-09-2021 COVID-19 booster vaccine, age 12+ yr, bivalent (PFIZER-[employer]) Donnell Dooley MD Work Phone: [facility] 12-09-2021 influenza, high-dose , quadrivalent vaccine (FLUZONE HIGH DOSE QUADRIVALENT) Donnell Dooley MD Work Phone: [facility] 12-09-2021 influenza virus vacc ine, unspecified formulation Donnell Dooley MD Work Phone: [facility] 07-22-2021 COVID-19 original vaccine, full dose, monovalent (MODERNA) Donnell Dooley MD Work Phone: [facility] 01-06-2021 COVID-19 original vaccine, full dose, monovalent (MODERNA) Donnell Dooley MD Work Phone: [facility] 12-19-2020 influenza, high dose seasonal, preservative-free Donnell Dooley MD Work Phone: [facility] 11-13-2020 zoster vaccine recombinant Donnell Dooley MD Work Phone: [facility] 08-05-2020 zoster vaccine recombinant Donnell Dooley MD Work Phone: [facility] 08-05-2020 zoster vaccine, live Donnell Dooley MD Work Phone: [facility] 05-01-2020 COVID-19 vaccine, fu ll dose (MODERNA) Donnell Dooley MD Work Phone: [facility] 04-04-2020 COVID-19 vaccine, fu ll dose (MODERNA) Donnell Dooley MD Work Phone: [facility] 11-25-2019 influenza, high-dose , quadrivalent vaccine (FLUZONE HIGH DOSE QUADRIVALENT) Donnell Dooley MD Work Phone: [facility] Work Phone: 11-29-2017 influenza, injectabl e, quadrivalent, preservative free Dr. Donnell Dooley Work Phone: [facility] 11-29-2017 influenza, seasonal, injectable Dr. Donnell Dooley Work Phone: [facility] 11-29-2017 influenza, seasonal, injectable, preservative free Donnell Dooley MD Work Phone: [facility] 11-20-2017 influenza, high dose seasonal, preservative-free Donnell Dooley MD Work Phone: [facility] 11-23-2016 influenza, high dose seasonal, preservative-free Donnell Dooley MD Work Phone: [facility] 12-07-2015 influenza, high dose seasonal, preservative-free Donnell Dooley MD Work Phone: [facility] Work Phone: 11-23-[address] Donnell Dooley Work Phone: [facility] 11-23-2015 influenza, seasonal, injectable, preservative free Donnell Dooley MD Work Phone: [facility] 03-03-2014 pneumococcal conjuga te vaccine, 13 valent Donnell Dooley MD Work Phone: [facility] Work Phone: 12-24-2007 pneumococcal polysaccharide vaccine, 23 valent Donnell Dooley MD Work Phone: [facility] Work Phone: Payers Date Payer Category Payer Self-pay [id number] 2008 Private Health Insurance [facility] [id number] 2008 Unknown [employer]IC[employer] SUPPLEMENT [id number] 2008-Present [phone] [id number] [employer] [place] [id number] Indemnity [id number] 2008 Unknown [id number] 2008 Unknown [employer]IC[employer] SUPPLEMENT [id number] 2008-Present [phone] [id number] [employer] [place] [id number] Indemnity [id number] 2008 Medicare [id number] 2007 Medicare MEDICARE MEDICAR E A AND B [id number] 2007-Present [phone] [facility] [address] [place] [address] Medicare [id number] 2007 Medicare [id number] 2007 Medicare [id number] Unknown [id number] Unknown [id number] Unknown [id number] Unknown [id number] Unknown [id number] Unknown [id number] Social History Date Type Detail Facility Start: 03-03-2016 End: 08-22-2024 Tobacco smoking status NHIS Ex-smoker [facility] Start: 02-22-1969 End: 02-22-1999 History of tobacco use Current smoker [facility] Start: 02-22-1969 End: 02-22-1999 History of tobacco use Cigarette Smoker [facility] Start: 03-03-2016 End: 10-29-2022 Cigarettes smoked current (pack per day) - Reported 1 [facility] Work Phone: Start: 03-03-2016 End: 01-14-2024 Tobacco use and exposure Smokeless tobacco non-user [facility] Start: 05-06-2021 End: 02-28-2024 Alcohol intake Current drinker of alcohol (finding) [facility] Start: 06-10-2020 History SDOH Alcohol Frequency 4 [facility] Start: 06-10-2020 History SDOH Alcohol Std Drinks 1 [facility] Start: 03-03-2016 History SDOH Alcohol Comment With dinner. [facility] Start: 06-10-2020 History SDOH Social Connections Phone 3 [facility] Start: 06-10-2020 History SDOH Social Connections Protestant 98 [facility] Start: 06-10-2020 History SDOH Social Connections Meetings 2 [facility] Start: 06-10-2020 History SDOH Physical Activity DPW 7 [facility] Start: 06-10-2020 Education 21 [facility] Start: 09-10-2016 End: 12-09-2021 Tobacco Comment Father smoked in childhood home. [facility] Start: 1940 Sex Assigned At Not on file [facility] Start: 04-26-2021 End: 12-22-2021 Exposure to SARS-CoV-2 (event) Not sure [facility] Start: 09-12-2021 End: 12-04-2022 Tobacco smoking status DEIS Unknown if ever smoked [facility] Start: 04-19-2019 Occasional [facility] Start: 04-19-2019 None [facility] Start: 04-19-2019 Spouse/ Significant Other [facility] Start: 04-20-2019 Non-smoker [facility] Start: 1940 Sex Assigned At Female [facility] Start: 09-13-2021 End: 09-23-2021 Exposure to SARS-CoV-2 (event) Unable to assess [facility] Work Phone: Start: 07-23-2022 End: 10-29-2022 Tobacco use panel [facility] Work Phone: Adult Depression Screening Assessment 0 [facility] Work Phone: Do you belong to any clubs or organizations such as yazidism groups, unions, fraternal or athletic groups, or school groups? Yes [facility] Are you now , , , , never or living with a partner? [facility] How often to you hav e a drink containing alcohol? 2-3 time sa week [facility] How many standard dr inks containing alcohol do you have on a typical day? 1 or 2 [facility] How often do you hav e 6 or more drinks on 1 occasion? Never [facility] How hard is it for y ou to pay for the very basics like food, housing, medical care, and heating Not very hard [facility] Do you feel stress - tense, restless, nervous, or anxious, or unable to sleep at night because your mind is troubled all the time - these days [OSQ] Rather much [facility] (I/We) worried wheth er (my/our) food would run out before (I/we) got money to buy more. Never true [facility] In the past 12 month s, was there a time when you were not able to pay the mortgage or rent on time? No [facility] How often to you hav e a drink containing alcohol? Monthly or less [facility] Do you feel stress - tense, restless, nervous, or anxious, or unable to sleep at night because your mind is troubled all the time - these days [OSQ] Not at all [facility] Are you now , , , , never or living with a partner? [facility] Mental Status Date Assessment Result Facility 12-04-2022 Cognitive function Level Of Cons ciousness Awake;Alert;Appropriate;Follow s Commands [facility] Work Phone: 11-18-2022 Cognitive function Awake;Alert;A ppropriate;Follow s Commands [facility] Work Phone: 04-15-2022 Cognitive function Level Of Cons ciousness Awake;Alert;Appropriate [facility] Work Phone: Clinical Notes 05-12-2017 to 08-22-2024 Note Date & Type Note Facility 08-22-2024 Evaluation note Diagnosis Onset Date Resolution Essential hypertension acute 2024 8:07pm Respiratory insufficiency acute August 22, 2024 8:07pm COPD exacerbation chronic August 8:07pm [facility] Work Phone: 1(789) 648-748307-01-2025 Radiology Diagnostic study note [facility] Imaging Services [address] [place] [address] Chest PA and Lateral MR#: [id number] Acct: [id number] Name: MADISON LOFTON MILY Rep #: [id number] : 1940 F [id number] From: Stephani Espino MD PCP: Dr. Donnell Dooley MD Status: REG E R Study:Chest PA and Lateral Date of Exam: 08/22/24 Exam# [id number] Ordering Dr: Juno Garza DO PROCEDURE: CHEST PA AND LATERAL 08/22/2024 REASON FOR EXAM: SHORTNESS OF BREATH, COUGH TECHNIQUE: CHEST PA AND LATERAL COMPARISON: 11/18/2022 FINDINGS: Overlying dense breasts limits evaluation of underlying bilateral lower lobes. Focal consolidationswithin the bilateral lower lobes not excluded. No significant pleural effusion. No pneumothorax. Hyperinflated lungs may reflect COPD. Cardiac silhouette is unchanged. No acute fractures. RAD/Chest PA and Lateral IMPRESSION: Overlying dense breasts limits evaluation of underlying bilateral lower lobes. Focal consolidationswithin the bilateral lower lobes not excluded. Hyperinflated lungs may reflect COPD. Reading Location: [id number] CC: Dr. Juno Cruz DO; Dr. Donnell Dooley MD ~ Hat Lacer: Signed [facility]05-21-2025 NoteHNO ID: [id number] Author: DONNELL DOOLEY MD Service: ? Author Type: Physician Type: Progress Notes Filed: 07/12/2024 17:49 Note Text: Madison Lofton is a 84 year old female here for a Medicare wellness visit. Medicare Health Risk Assessment General Health Good Exercise: Minutes/Day 30 min Exercise: Days/Week 3 days Alcohol: Daily Use Monthly or less Alcohol: Drinks/Day Patient does not drink Alcohol: 6 or more drinks Never Feel off balance Yes, using rollator. Concerns: Teeth/Dentures No Concerns: Sexual function No Troubled by feelings None of the above Frequency: Eating healthy diet Several days ADLs requiring help In assisted living. Safety precautions in home/vehicle Yes Smoke, vape, chews tobacco No Difficulty hearing No Difficulty seeing No Current Providers Specialists: I have reviewed specialist-related care of the patient in the medical record. Current care team: Patient Care Team: Donnell Dooley MD as PCP - General (Family Medicine) Dennis Mendosa (Ent - Otolaryngology) Margarito Shields MD (Hematology/Oncology) Morelia Hewitt APRN.MARKER MACHINE as Retail Management Keyholder (Family Medicine) Amber Griffith APRN.REYNALDO as Retail Management Keyholder (Family Medicine) Dr Helms, podiatry. Now seeing podiatry at facility. Dr Antunez, pulmonary. Dr Diallo, optho. [facility]-not followed up. Defers follow up. Dr Barfield, GASTROENTEROLOGY not recently. Medical/Family history review Reviewed and updated problem list, medical/surgical/family/social history, medications, and allergies. Opioid use review Opioid Medications (last 90 days) No data to display Anxiety/Depression screening (Lower risk for depression) YANETH-7 Score: 0. Recommendation: no further intervention at this time Cognitive screening Mini Cog Score: 2 Brief Assessment of Cognitive Health (BACH) Results: The patient endorsed minimal depression symptoms on PHQ-8[1]. The patient endorsed a minimal level of stress. The patient reported getting about 8 hours of sleep per night, which falls into the recommended category based on National Sleep Foundation Guidelines [2].They endorsed no recent sleep problems. The patient?s cognitive test performance was VALID. When invalid, probability of cognitive impairment score should be disregarded. Probability of cognitive impairment [3]: 89.64% Above 50% - Probable cognitive impairment; Specialty evaluation may be warranted 20-50% - Possible cognitive impairment; Address moderate to severe depression and sleep issues and retest Below 20% - Very low chance of cognitive impairment Moderate to severe levels of depression or stress may contribute to subjective cognitive complaints in the absence of cognitive impairment [1] Brian K, Kirsty TW, Vitor RL, Luther JAIRON, Joshua MaldonadoT, Duarte AH. The PHQ-8 as a measure of current depression in the general population. J Affect Disord. 2009;114(1-3):163-173. doi: 10.1016/j.antwan.2008.06.026 [2] Tomy et al. National Sleep Foundation's sleep time duration recommendations: methodology and results summary. Sleep Health. 2015 Apr;1(1):40-43. doi: 10.1016/j.sleh.2014.12.010. [3] Chacho RM, Sharon O, Postlyndsay AF, Victorina DP. Automated detection of cognitive impairment in clinical practice. J Neurol. 2023 Jef . doi: 10.1007/o19265-059-98881-2. Epub ahead of print. PMID: 03096006. Cognitive screening reviewed and Patient has known cognitive impairment. Functional Observation Was the patient's Timed Up AND Go test unsteady or >= 12 seconds? No Advance Care Planning Surrogate decision maker and/or advance care plan documented DNRCC- per records. ROS No chest pain or shortness of breath. No edema. Measurements BP 134/70 Pulse 76 Ht 149.9 cm (4' 11) Wt 42.4 kg (93 lb 6.4 oz) SpO2 98% BMI 18.86 kg/m? Vision Screening: Follows with optometry/ophthalmology PHYSICAL EXAM: GEN: pleasant, no acute distress, alert HEENT: PERRL, EOMI, MMM Skin: has a 1 cm area on left forehead that is not healing and has raised pearly edges. NECK: supple, no lymphadenopathy, no thyromegaly HEART: regular rate, regular rhythm, no murmurs LUNGS: clear to auscultation, no wheezes or crackles, no increased WOB ABD: soft, non-distended, no masses palpated, non-tender EXT: no clubbing, no cyanosis, no edema Assessment/Plan ASSESSMENT/PLAN: 1. Medicare annual wellness visit, subsequent - ICD9: V70.0, ICD10: Z00.00 (primary diagnosis) - Counseled on healthy diet and regular exercise 2. Meningioma (HCC) - ICD9: 225.2, ICD10: D32.9 - hold on following per discussion with daughter. 3. VHD (valvular heart disease) - ICD9: 424.90, ICD10: I38 - hold on following for now as above 4. Mixed hyperlipidemia - ICD9: 272.2, ICD10: E78.2 - stable 5. MVP (mitral valve prolapse) - ICD9: 424.0, ICD10: I34.1 - as above. 6. Chronic respiratory failure with hypoxia (HCC) - ICD9: 518.83, 799.02, ICD10: J96.11 - stabl (more content not included)...[facility]05-07-2025 Note HNO ID: [id number] Author: HANNAH MILLS MA Service: ? Author Type: Rapid Transit Operator Type: Progress Notes Filed: 06/28/2024 12:19 Note Text: POPULATION HEALTH NAVIGATION OUTREACH Action/FYI Updated appointment notes HCC CLOSURE Topic Due (Y or N) Comments Medicare Wellness PCP Follow up Colorectal Cancer Screening Controlling Blood Pressure A1C HCC y Flu Vaccine Care Everywhere Reviewed MyChart Activation Updated Appointment Note y Reason for Outreach Care Gap/HCC or Scheduling Wellness Visits Care Gaps due: Medicare Annual Wellness Visit Patient Contacted: Unable or unnecessary to reach patient: HCC related Patient already scheduled Updated appointment notes HCC related Navigation Signature: Hannah Mills MA June 28, 2024 12:10 [facility]05-07-2025 History of Present illness Narrative* Hannah Mills MA - 06/28/2024 12:10 PM EDT POPULATION HEALTH NAVIGATION OUTREACH Action/FYI Updated appointment notes HCC CLOSURE Topic Due (Y or N) Comments Medicare Wellness PCP Follow up Colorectal Cancer Screening Controlling Blood Pressure A1C HCC y Flu Vaccine Care Everywhere Reviewed MyChart Activation Updated Appointment Note y Reason for Outreach Care Gap/HCC or Scheduling Wellness Visits Care Gaps due: Medicare Annual Wellness Visit Patient Contacted: Unable or unnecessary to reach patient: HCC related Patient already scheduled Updated appointment notes HCC related Navigation Signature: Hannah Mills MA June 28, 2024 12:10 PM documented in this encounterBarney [facility] NotePatient Outreach (NETNAV) MADISON LOFTON ([id number]) 1940 F Date Time Provider Department 06/28/24 HANNAH MILLS NETNAEduardo During your visit today, we recorded the following information about you: Hannah Mills MA 06/28/2024 12:19 PM Signed POPULATION HEALTH NAVIGATION OUTREACH Action/FYI Updated appointment notes HCC CLOSURE Topic Due (Y or N) Comments Medicare Wellness PCP Follow up Colorectal Cancer Screening Controlling Blood Pressure A1C HCC y Flu Vaccine Care Everywhere Reviewed MyChart Activation Updated Appointment Note y Reason for Outreach Care Gap/HCC or Scheduling Wellness Visits Care Gaps due: Medicare Annual Wellness Visit Patient Contacted: Unable or unnecessary to reach patient: HCC related Patient already scheduled Updated appointment notes HCC related Navigation Signature: Hannah Mills MA June 28, 2024 12:10 PM Allergies As of Date: 06/28/2024 Noted Allergy Reaction AUGMENTIN (AMOXICILLIN-POT CLAVUL*12/23/2017 11 - Vomiting CODEINE 03/03/2016 8 - GI Upset 11 - Vomiting SHELLFISH CONTAINING PRODUCTS 03/03/2016 7 - Swelling 10 - Anaphylaxis 12 - Shortness of Breath 14 - Other: See Comments 4 - Hives Comments: No serious trouble with recent re-introduction of shellfish into diet. BACITRACIN 03/03/2016 9 - Itching LATEX 03/03/2016 2 - Rash WALNUT 01/07/2022 7 - Swelling Date Reviewed: 02/28/2024 Reviewed by: Sherron Warren, RN - Fully Assessed Reason for Visit: Population Health Navigation Outreach [3910] Cmt: TRA BRODYSnehal [facility] Prescriptions as of 06/28/2024 - fluticasone propion-salmeterol 232-14 mcg/actuation - ACETAMINOPHEN ORAL Take by mouth as needed. - rivastigmine tartrate (EXELON) 1.5 mg capsule Take 1 capsule by mouth twice daily. - triamterene-hydroCHLOROthiazide (DYAZIDE) 37.5-25 mg per capsule Take 1 capsule by mouth once daily. - meclizine (ANTIVERT) 25 mg tab Take 25 mg by mouth as needed. - calcium carbonate (TUMS ORAL) Take 1 tablet by mouth at bedtime as needed. - nystatin (MYCOSTATIN) 100,000 unit/mL suspension three times daily. - Cholecalciferol, Vitamin D3, 25 mcg (1,000 unit) cap Take 1,000 Units by mouth once daily. - VENTOLIN HFA 90 mcg/actuation inhaler Inhale 2 Puffs as instructed every 6 hours as needed for Wheezing/Shortness of Breath. - OXYGEN, HOME THERAPY, Inhale 3 L/min as instructed as directed. - tiotropium (SPIRIVA WITH HANDIHALER) 18 mcg inhalation capsule INHALE THE CONTENTS OF ONE CAPSULE VIA HANDIHALER ONCE DAILY - Zinc 50 mg tab Take 50 mg by mouth once daily. - ipratropium-albuterol (DUONEB) 0.5 mg-3 mg(2.5 mg base)/3 mL nebu Inhale 3 mL as instructed every 6 hours as needed (wheezing/shortness of breath). - CALCIUM ORAL Take 1 tablet by mouth once daily. - MAGNESIUM ORAL Take 1 tablet by mouth once daily. 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] Chronic bronchitis (HCC) [J42] 06/15/2022 Mixed hyperlipidemia [E78.2] 03/30/2017 History of breast cancer in female [Z85.3] 05/12/2017 03/24/2018 Meningioma (HCC) [D32.9] 03/16/2018 Meniere's disease [H81.09] MVP (mitral valve prolapse) [I34.1] 12/20/2020 Mild cognitive impairment [G31.84] 09/09/2021 Chronic respiratory failure with hypoxia (HCC) *06/15/2022 Atrial fibrillation (HCC) [I48.91] 06/15/2022 12/23/2022 Chest pain, unspecified [R07.9] 11/26/2022 06/28/2023 Diagnosed: 12/23/2022 Weakness [R53.1] 08/03/2022 06/28/2023 Diagnosed: 12/23/2022 Ulcer of toe of right foot, limited to breakdow*06/28/2023 01/14/2024 Encounter Status:Closed by HANNAH MILLS on 06/28/24[facility]03-20-2025 NoteHNO ID: [id number] Author: HANNAH MILLS MA Service: ? Author Type: Rapid Transit Operator Type: Progress Notes Filed: 05/11/2024 15:36 Note Text: POPULATION HEALTH NAVIGATION OUTREACH Action/FYI UPDATED APPOINTMENT NOTES HCC CLOSURE Topic Due (Y or N) Comments Medicare Wellness PCP Follow up Colorectal Cancer Screening Controlling Blood Pressure A1C HCC Y Flu Vaccine Care Everywhere Reviewed MyChart Activation Updated Appointment Note Y Reason for Outreach Care Gap/HCC or Scheduling Wellness Visits Care Gaps due: N/A Patient Contacted: Unable or unnecessary to reach patient: HCC related Patient already scheduled Updated appointment notes Navigation Signature: Hannah Mills MA [facility] 11, 2024 [facility] History of Present illness Narrative* Hannah Mills MA - 05/11/2024 1:33 PM EDT POPULATION HEALTH NAVIGATION OUTREACH Action/FYI UPDATED APPOINTMENT NOTES HCC CLOSURE Topic Due (Y or N) Comments Medicare Wellness PCP Follow up Colorectal Cancer Screening Controlling Blood Pressure A1C HCC Y Flu Vaccine Care Everywhere Reviewed MyChart Activation Updated Appointment Note Y Reason for Outreach Care Gap/HCC or Scheduling Wellness Visits Care Gaps due: N/A Patient Contacted: Unable or unnecessary to reach patient: HCC related Patient already scheduled Updated appointment notes Navigation Signature: Hannah Mills MA May 11, 2024 1:33 PM documented in this encounterBarney [facility]03-[facility] NotePatient Outreach (NETNAV) MADISON LOFTON ([id number]) 1940 F Date Time Provider Department 05/11/24 HANNAH MILLS NETNAEduardo During your visit today, we recorded the following information about you: Hannah Mills MA 05/11/2024 3:36 PM Signed POPULATION HEALTH NAVIGATION OUTREACH Action/ UPDATED APPOINTMENT NOTES HCC CLOSURE Topic Due (Y or N) Comments Medicare Wellness PCP Follow up Colorectal Cancer Screening Controlling Blood Pressure A1C HCC Y Flu Vaccine Care Everywhere Reviewed MyChart Activation Updated Appointment Note Y Reason for Outreach Care Gap/HCC or Scheduling Wellness Visits Care Gaps due: N/A Patient Contacted: Unable or unnecessary to reach patient: HCC related Patient already scheduled Updated appointment notes Navigation Signature: Hannah Mills MA May 11, 2024 1:33 PM Allergies As of Date: 05/11/2024 Noted Allergy Reaction AUGMENTIN (AMOXICILLIN-POT CLAVUL*12/23/2017 11 - Vomiting CODEINE 03/03/2016 8 - GI Upset 11 - Vomiting SHELLFISH CONTAINING PRODUCTS 03/03/2016 7 - Swelling 10 - Anaphylaxis 12 - Shortness of Breath 14 - Other: See Comments 4 - Hives Comments: No serious trouble with recent re-introduction of shellfish into diet. BACITRACIN 03/03/2016 9 - Itching LATEX 03/03/2016 2 - Rash WALNUT 01/07/2022 7 - Swelling Date Reviewed: 02/28/2024 Reviewed by: Sherron Warren, RN - Fully Assessed Reason for Visit: Population Health Navigation Outreach [3910] Cmt: TRA BRODYSnehal ANDRADE [facility] Prescriptions as of 05/11/2024 - fluticasone propion-salmeterol 232-14 mcg/actuation - ACETAMINOPHEN ORAL Take by mouth as needed. - rivastigmine tartrate (EXELON) 1.5 mg capsule Take 1 capsule by mouth twice daily. - triamterene-hydroCHLOROthiazide (DYAZIDE) 37.5-25 mg per capsule Take 1 capsule by mouth once daily. - meclizine (ANTIVERT) 25 mg tab Take 25 mg by mouth as needed. - calcium carbonate (TUMS ORAL) Take 1 tablet by mouth at bedtime as needed. - nystatin (MYCOSTATIN) 100,000 unit/mL suspension three times daily. - Cholecalciferol, Vitamin D3, 25 mcg (1,000 unit) cap Take 1,000 Units by mouth once daily. - VENTOLIN HFA 90 mcg/actuation inhaler Inhale 2 Puffs as instructed every 6 hours as needed for Wheezing/Shortness of Breath. - OXYGEN, HOME THERAPY, Inhale 3 L/min as instructed as directed. - tiotropium (SPIRIVA WITH HANDIHALER) 18 mcg inhalation capsule INHALE THE CONTENTS OF ONE CAPSULE VIA HANDIHALER ONCE DAILY - Zinc 50 mg tab Take 50 mg by mouth once daily. - ipratropium-albuterol (DUONEB) 0.5 mg-3 mg(2.5 mg base)/3 mL nebu Inhale 3 mL as instructed every 6 hours as needed (wheezing/shortness of breath). - CALCIUM ORAL Take 1 tablet by mouth once daily. - MAGNESIUM ORAL Take 1 tablet by mouth once daily. 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] Chronic bronchitis (HCC) [J42] 06/15/2022 Mixed hyperlipidemia [E78.2] 03/30/2017 History of breast cancer in female [Z85.3] 05/12/2017 03/24/2018 Meningioma (HCC) [D32.9] 03/16/2018 Meniere's disease [H81.09] MVP (mitral valve prolapse) [I34.1] 12/20/2020 Mild cognitive impairment [G31.84] 09/09/2021 Chronic respiratory failure with hypoxia (HCC) *06/15/2022 Atrial fibrillation (HCC) [I48.91] 06/15/2022 12/23/2022 Chest pain, unspecified [R07.9] 11/26/2022 06/28/2023 Diagnosed: 12/23/2022 Weakness [R53.1] 08/03/2022 06/28/2023 Diagnosed: 12/23/2022 Ulcer of toe of right foot, limited to breakdow*06/28/2023 01/14/2024 Encounter Status:Closed by HANNAH MILLS on 05/11/24[facility]03-03-2025 Telephone encounter Note* Telephone Encounter - Reena Arango DO - 04/24/2024 7:24 AM EST Bill I was called from your patient's assisted living facility this weekend yesterday on Wednesday, April 2regarding the patient having loose stools. There was an issue with concern by the nurse who reviewed the patient's medications and was concerned about the use of Imodium with the potential for complications. Patient had not been on recent antibiotics. Patient has not been experiencing any nausea or vomiting. No abdominal distention or warning signs of the abdomen being distended or having bowel obstruction or severe ileus. I wrote for Imodium 1 tablet every 6 hours as needed for loose stool that she was requesting for a maximum of 2 doses and reevaluate with a diet that avoids milk, artificial flavorings and sweetenersand high-fiber foods at least for the next 24 to 48 hours encouraging good p.o. fluid intake. All the best Reena [facility] Work Phone: [phone]) 787-496803-03-2025 Miscellaneous Notes* Telephone Encounter - Reena Arango DO - 04/24/2024 7:24 AM EST Tom I was called from your patient's assisted living facility this weekend yesterday on April 2regarding the patient having loose stools. There was an issue with concern by the nurse who reviewed the patient's medications and was concerned about the use of Imodium with the potential for complications. Patient had not been on recent antibiotics. Patient has not been experiencing any nausea or vomiting. No abdominal distention or warning signs of the abdomen being distended or having bowel obstruction or severe ileus. I wrote for Imodium 1 tablet every 6 hours as needed for loose stool that she was requesting for a maximum of 2 doses and reevaluate with a diet that avoids milk, artificial flavorings and sweetenersand high-fiber foods at least for the next 24 to 48 hours encouraging good p.o. fluid intake. All the best Reena documented in this encounterBarney [facility] Center01-29-2025 Telephone encounter Note * Telephone Encounter - Jessica Middleton LPN - 03/22/2024 9:55 AM EST Sandy with [facility] called to request ed list and dx list for pt. Pt was identified withname and date of . Done. Jessica Middleton LPN [facility]01-29-2025 Miscellaneous Notes* Telephone Encounter - Jessica Middleton LPN - 03/22/2024 9:55 AM EST Sandy with [facility] called to request ed list and dx list for pt. Pt was identified withname and date of . Done. Jessica Middleton LPN documented in this encounterBarney [facility] Center01-16-2025 Telephone encounter Note * Telephone Encounter - Amber Griffith APRN.CNP - 03/09/2024 5:06 PM EST Called patient and daughter answered. I let her know that mother does have a pneumonia. I will sendan order of Zpak to her pharmacy. Not in distress and daughter says she has an inhaler and wears O2at night. RX sent. No QT prolongation on last ECG. Renal function ok. [facility]01-16-2025 Miscellaneous Notes* Telephone Encounter - Amber Griffith APRN.CNP - 03/09/2024 5:06 PM EST Called patient and daughter answered. I let her know that mother does have a pneumonia. I will sendan order of Zpak to her pharmacy. Not in distress and daughter says she has an inhaler and wears O2at night. RX sent. No QT prolongation on last ECG. Renal function ok. * Telephone Encounter - Alejandrina Cooper RN - 03/09/2024 4:51 PM EST Ronda from [facility] calling with results to chest x ray. Results show Slight left lower lobe infiltrate (Left Basilar infiltrate without any mass or fusion). Patient still has cough and other symptoms without fever. Pharmacy is [facility]. Please review and advise, Alejandrina Cooper RN documented in this encounterBarney Children'S [facility] Center01-16-2025 Telephone encounter Note * Telephone Encounter - Alejandrina Cooper RN - 03/09/2024 4:51 PM EST Ronda from [facility] calling with results to chest x ray. Results show Slight left lower lobe infiltrate (Left Basilar infiltrate without any mass or fusion). Patient still has cough and other symptoms without fever. Pharmacy is [facility]. Please review and advise, Alejandrina Cooper RN [facility]01-16-[facility]25 Telephone encounter Note* Telephone Encounter - Skye Payton MA - 03/09/2024 11:42 AM EST Call to Ronda and notified her of message below from PCP. Verbalized understanding. During call she asked if PCP wanted 2 or 3 view chest x-ray. Was able to send message to PCP and ask. PCP advised 3 view chest x-ray. Ronda was made aware of this. Skye Payton MA [facility]01-16-2025 Miscellaneous Notes* Telephone Encounter - Skye Payton MA - 03/09/2024 11:42 AM EST Call to Ronda and notified her of message below from PCP. Verbalized understanding. During call she asked if PCP wanted 2 or 3 view chest x-ray. Was able to send message to PCP and ask. PCP advised 3 view chest x-ray. Ronda was made aware of this. Skye Payton MA * Telephone Encounter - Donnell Dooley MD - 03/09/2024 11:17 AM EST Ok for chest xray Can use robitussin dm 5 cc po q 8 hours prn cough * Telephone Encounter - Guera Roy RN - 03/09/2024 9:13 AM EST Ronda nurse with [facility] calls with patient update. Patient has a cough with sinus/chest congestionfor the past 3-4 days. Lungs are clear except right lower lobe faint wheeze on expiration. Patient reports SOB with exertion. Patient has ventolin inhaler that is helpful. No chest pain or fever. Patient complained of body aches last night and tylenol prn was given. No complains this morning. Patient is COVID negative. Patient has OTC Claritin that was given for nasal symptoms. Patient doesn't have any prn orders for cough medication. Ronda reports that if provider would like a CXR they have the ability to do one there. Call back number is [phone]. Guera Roy RN documented in this encounterBarney Children'S [facility] Center01-16-2025 Telephone encounter Note * Telephone Encounter - Donnell Dooley MD - 03/09/2024 11:17 AM EST Ok for chest xray Can use robitussin dm 5 cc po q 8 hours prn cough [facility]01-[facility] Telephone encounter Note* Telephone Encounter - Guera Roy RN - 03/09/2024 9:13 AM EST Ronda nurse with [facility] calls with patient update. Patient has a cough with sinus/chest congestionfor the past 3-4 days. Lungs are clear except right lower lobe faint wheeze on expiration. Patient reports SOB with exertion. Patient has ventolin inhaler that is helpful. No chest pain or fever. Patient complained of body aches last night and tylenol prn was given. No complains this morning. Patient is COVID negative. Patient has OTC Claritin that was given for nasal symptoms. Patient doesn't have any prn orders for cough medication. Ronda reports that if provider would like a CXR they have the ability to do one there. Call back number is [phone]. Guera Roy RN [facility]01-06-2025 NoteHNO ID: [id number] Author: DANIKA HELMS, ? Service: ? Author Type: Physician Type: Progress Notes Filed: 02/28/2024 11:08 Note Text: Chief Complaint: This 83 year old female who presents with chief complaint:right 5th toenail pain HPI Patient presents to clinic for evaluation of right foot Complains of right 5th toenail pain She states the toenail is severely thick and causes her pain She is here to discuss options. PAIN EVALUATION 02/24/2024 0810 02/28/2024 1010 Pain Level: 7 8 Pain Location: Toe Toe Description: Throbbing Throbbing Duration Units: -- Months Frequency: -- Continuous Intervention/Comfort measure: -- Relaxation;Reposition Hemoglobin A1C (%) Date Value 09/16/2017 5.5 PCP: Donnell Dooley MD PAST MEDICAL HISTORY Diagnosis Date Breast cancer (HCC) Left mastectomy. Right mastectomy. Bilateral reconstructions. No chemo/XRT. Cervical cancer (HCC) Remote. SOHEILA/BSO. No chemo or XRT. COPD (chronic obstructive pulmonary disease) (HCC) Gastroenteritis History of ileus Meniere's disease [facility]. Meningioma (HCC) Mitral valve regurgitation Non Hodgkin's lymphoma (HCC) About 14 years ago. No XRT, chemotherapy. Watchful waiting. Osteoporosis Current Outpatient Medications Medication Sig fluticasone propion-salmeterol 232-14 mcg/actuation ACETAMINOPHEN ORAL Take by mouth as needed. rivastigmine tartrate (EXELON) 1.5 mg capsule Take 1 capsule by mouth twice daily. triamterene-hydroCHLOROthiazide (DYAZIDE) 37.5-25 mg per capsule Take 1 capsule by mouth once daily. meclizine (ANTIVERT) 25 mg tab Take 25 mg by mouth as needed. calcium carbonate (TUMS ORAL) Take 1 tablet by mouth at bedtime as needed. nystatin (MYCOSTATIN) 100,000 unit/mL suspension three times daily. Cholecalciferol, Vitamin D3, 25 mcg (1,000 unit) cap Take 1,000 Units by mouth once daily. VENTOLIN HFA 90 mcg/actuation inhaler Inhale 2 Puffs as instructed every 6 hours as needed for Wheezing/Shortness of Breath. OXYGEN, HOME THERAPY, Inhale 3 L/min as instructed as directed. tiotropium (SPIRIVA WITH HANDIHALER) 18 mcg inhalation capsule INHALE THE CONTENTS OF ONE CAPSULE VIA HANDIHALER ONCE DAILY Zinc 50 mg tab Take 50 mg by mouth once daily. ipratropium-albuterol (DUONEB) 0.5 mg-3 mg(2.5 mg base)/3 mL nebu Inhale 3 mL as instructed every 6 hours as needed (wheezing/shortness of breath). CALCIUM ORAL Take 1 tablet by mouth once daily. MAGNESIUM ORAL Take 1 tablet by mouth once daily. No current facility-administered medications for this visit. ALLERGIES Allergen Reactions Augmentin [Amoxicil* Vomiting Codeine GI Upset, Vomiting Shellfish Containin* Swelling, Anaphylaxis, Shortness of Breath, Other: See Comments, Hives No serious trouble with recent re-introduction of shellfish into diet. Bacitracin Itching Latex Rash Freeman Swelling PAST SURGICAL HISTORY Procedure Laterality Date BREAST RECONSTRUCTION CATARACT EXTRACTION HX Bilateral 2011 CATARACT SURGERY, COMPLEX COLONOSCOPY W/BIOPSY SINGLE/MULTIPLE 10/12/2016 DANDC DIAG AND/OR THERAP, NOT OB EGD TRANSORAL BIOPSY SINGLE/MULTIPLE 10/12/2016 EGD W/O BRSH SPEC VARICIES INJ N/A HEMORRHOIDECTOMY MASTECTOMY HX Bilateral 1982 PAST SURGICAL HISTORY OF Bronchial artery embolization, left lung PAST SURGICAL HISTORY OF 2002 Lymph node removal on left arm SLING OPER STRES INCONTINENCE TOT ABDOMINL HYSTERECTOMY 1984 FAMILY HISTORY Problem Relation Age of Onset Alzheimer's Disease Mother in her 80s. Aneurysm Father AAA at age 61. other (Chronic bronchitis.) Father other (Other) Brother Parkinson's vs [place]'s. age 61. other (Other) Other Meningioma: multiple cousins Social History Tobacco Use Smoking status: Former Current packs/day: 0.00 Average packs/day: 1 pack/day for 30.0 years (30.0 ttl pk-yrs) Types: Cigarettes Start date: 02/22/1969 Quit date: 02/22/1999 Years since quittin.0 Smokeless tobacco: Never Tobacco comments: Father smoked in childhood home. Vaping Use Vaping status: Never Used Substance Use Topics Alcohol use: Yes Alcohol/week: 4.0 standard drinks of alcohol Types: 4 Glasses of Wine (5oz) per week Comment: With dinner. Drug use: No REVIEW OF SYSTEMS GENERAL: Negative for Malaise, significant weight loss, fever RESPIRATORY: Negative for cough, wheezing and shortness of breath CARDIOVASCULAR: Negative for chest pain, leg swelling and palpitations GI: Negative for abdominal discomfort, blood in stools or black stools and change in bowel habits : Negative for dysuria, frequency and incontinence MUSCULOSKELETAL: Negative for joint pain or swelling, back pain, and muscle pain. SKIN: Negative for lesions, rash, and itching. HEMATOLOGY/LYMPHOLOGY Negative for prolonged bleeding, bruising easily, and swollen nodes. ENDOCRINE: Negative for cold or heat intolerance, polyuria, polydipsia and g (more content not included)...[facility]01-06-2025 History of Present illness Narrative* Danika Helms - 02/28/2024 10:18 AM EST Images from the original note were not included. Chief Complaint: This 83 year old female who presents with chief complaint:right 5th toenail pain HPI Patient presents to clinic for evaluation of right foot Complains of right 5th toenail pain She states the toenail is severely thick and causes her pain She is here to discuss options. PAIN EVALUATION 02/24/2024 0810 02/28/2024 1010 Pain Level: 7 8 Pain Location: Toe Toe Description: Throbbing Throbbing Duration Units: -- Months Frequency: -- Continuous Intervention/Comfort measure: -- Relaxation;Reposition Hemoglobin A1C (%) Date Value 09/16/2017 5.5 PCP: Donnell Dooley MD PAST MEDICAL HISTORY Diagnosis Date Breast cancer (HCC) Left mastectomy. Right mastectomy. Bilateral reconstructions. No chemo/XRT. Cervical cancer (HCC) Remote. SOHEILA/BSO. No chemo or XRT. COPD (chronic obstructive pulmonary disease) (HCC) Gastroenteritis History of ileus Meniere's disease [facility]. Meningioma (HCC) Mitral valve regurgitation Non Hodgkin's lymphoma (HCC) About 14 years ago. No XRT, chemotherapy. Watchful waiting. Osteoporosis Current Outpatient Medications Medication Sig fluticasone propion-salmeterol 232-14 mcg/actuation ACETAMINOPHEN ORAL Take by mouth as needed. rivastigmine tartrate (EXELON) 1.5 mg capsule Take 1 capsule by mouth twice daily. triamterene-hydroCHLOROthiazide (DYAZIDE) 37.5-25 mg per capsule Take 1 capsule by mouth once daily. meclizine (ANTIVERT) 25 mg tab Take 25 mg by mouth as needed. calcium carbonate (TUMS ORAL) Take 1 tablet by mouth at bedtime as needed. nystatin (MYCOSTATIN) 100,000 unit/mL suspension three times daily. Cholecalciferol, Vitamin D3, 25 mcg (1,000 unit) cap Take 1,000 Units by mouth once daily. VENTOLIN HFA 90 mcg/actuation inhaler Inhale 2 Puffs as instructed every 6 hours as needed for Wheezing/Shortness of Breath. OXYGEN, HOME THERAPY, Inhale 3 L/min as instructed as directed. tiotropium (SPIRIVA WITH HANDIHALER) 18 mcg inhalation capsule INHALE THE CONTENTS OF ONE CAPSULE VIA HANDIHALER ONCE DAILY Zinc 50 mg tab Take 50 mg by mouth once daily. ipratropium-albuterol (DUONEB) 0.5 mg-3 mg(2.5 mg base)/3 mL nebu Inhale 3 mL as instructed every 6hours as needed (wheezing/shortness of breath). CALCIUM ORAL Take 1 tablet by mouth once daily. MAGNESIUM ORAL Take 1 tablet by mouth once daily. No current facility-administered medications for this visit. ALLERGIES Allergen Reactions Augmentin [Amoxicil* Vomiting Codeine GI Upset, Vomiting Shellfish Containin* Swelling, Anaphylaxis, Shortness of Breath, Other: See Comments, Hives No serious trouble with recent re-introduction of shellfish into diet. Bacitracin Itching Latex Rash Freeman Swelling PAST SURGICAL HISTORY Procedure Laterality Date BREAST RECONSTRUCTION CATARACT EXTRACTION HX Bilateral 2011 CATARACT SURGERY, COMPLEX COLONOSCOPY W/BIOPSY SINGLE/MULTIPLE 10/12/2016 D&C DIAG &/OR THERAP, NOT OB EGD TRANSORAL BIOPSY SINGLE/MULTIPLE 10/12/2016 EGD W/O BRSH SPEC VARICIES INJ N/A HEMORRHOIDECTOMY MASTECTOMY HX Bilateral 1982 PAST SURGICAL HISTORY OF Bronchial artery embolization, left lung PAST SURGICAL HISTORY OF 2002 Lymph node removal on left arm SLING OPER STRES INCONTINENCE TOT ABDOMINL HYSTERECTOMY 1984 FAMILY HISTORY Problem Relation Age of Onset Alzheimer's Disease Mother in her 80s. Aneurysm Father AAA at age 61. other (Chronic bronchitis.) Father other (Other) Brother Parkinson's vs [place]'s. age 61. other (Other) Other Meningioma: multiple cousins Social History Tobacco Use Smoking status: Former Current packs/day: 0.00 Average packs/day: 1 pack/day for 30.0 years (30.0 ttl pk-yrs) Types: Cigarettes Start date: 02/22/1969 Quit date: 02/22/1999 Years since quittin.0 Smokeless tobacco: Never Tobacco comments: Father smoked in childhood home. Vaping Use Vaping status: Never Used Substance Use Topics Alcohol use: Yes Alcohol/week: 4.0 standard drinks of alcohol Types: 4 Glasses of Wine (5oz) per week Comment: With dinner. Drug use: No REVIEW OF SYSTEMS GENERAL: Negative for Malaise, significant weight loss, fever RESPIRATORY: Negative for cough, wheezing and shortness of breath CARDIOVASCULAR: Negative for chest pain, leg swelling and palpitations GI: Negative for abdominal discomfort, blood in stools or black stools and change in bowel habits : Negative for dysuria, frequency and incontinence MUSCULOSKELETAL: Negative for joint pain or swelling, back pain, and muscle pain. SKIN: Negative for lesions, rash, and itching. HEMATOLOGY/LYMPHOLOGY Negative for prolonged bleeding, bruising easily, and swollen nodes. ENDOCRINE: Negative for cold or heat intolerance, polyuria, polydipsia and goiter. NEURO: negative Physical Exam: Constitutional: Pt is a well developed 83 year old female who is alert, oriented and cooperative Eyes: Following during examination. No redness or drainage. Respiratory: RR normal and nonlabored. Even breathing. No evidence of distress or shortness of breath. Psychology: Patient is engaged during conversation. Normal affect and mood. Does not appear depressed or anxious during encounter. Vascular: Dorsalis pedis and posterior tibial pulses nonpalpable as b/l Capillary Fill time < 5 seconds to digits 1-5 b/l Skin temperature warm to cool proximal to distal b/l Hair growth decreased to digits Neurological: intact light touch/epicritic sensation no significant neurological deficits Dermatological: Right 5th toenail is dystrophic and painful. No signs of infection. Musculoskeletal/Orthopaedic: Patient has pain to palpation of right 5th toe at nail bed Foot type is neutral structurally Right 2nd toe amputation Radiographs: n/a ASSESSMENT: (B35.1) Onychomycosis (primary encounter diagnosis) (R09.89) Diminished pulses in lower extremity PLAN: Discussed painful dystrophic toenail of right 5th toe. Discussed options not limited to periodic debridement vs total nail removal. She has had nail removal in past and did well. She even had a 2nd toe amputation of the right foot and healed nicely. She does have pvr from 2021. It shows false elevation of carine with normal tbi. I discussed removal of right 5th toenail via chemical matrixectomy. She has interest in proceeding with this. I would like to repeat pvr prior to toenail removal. If pvr is normal, will plan for chemical matrixectomy of right 5th toenail. Toenail was debrided as courtesy. Gel toe cap dispensed for b/l 5th toe Danika Helms DPM Podiatry [address] [facility] [address] Dept: [phone] Dept * Sherron Warren RN - 02/28/2024 10:07 AM EST [facility] ROOMING INTAKE FLOWSHEET DATA Pain Pain Level: 8 Pain Location: Toe Description: Throbbing Duration Units: Months Frequency: Continuous Intervention/Comfort measure: Relaxation, Reposition Patient presents with: Right Foot - Established Patient, Follow Up, Pain Patient presents for right 5th toe pain. States that it has been bothering her for the last few months. Develops callus to 1st and 5th toe. [facility] 10/29/22 [facility] in [facility]Bar[facility] NoteHNO ID: [id number] Author: SHERRON WARREN RN Service: ? Author Type: Registered Nurse Type: Progress Notes Filed: 02/28/2024 11:08 Note Text: [facility] ROOMING INTAKE FLOWSHEET DATA Pain Pain Level: 8 Pain Location: Toe Description: Throbbing Duration Units: Months Frequency: Continuous Intervention/Comfort measure: Relaxation, Reposition Patient presents with: Right Foot - Established Patient, Follow Up, Pain Patient presents for right 5th toe pain. States that it has been bothering her for the last few months. Develops callus to 1st and 5th toe. [facility] 10/29/22[facility]12-27-2024 Telephone encounter Note* Telephone Encounter - An Barker MA - 02/18/2024 5:02 PM EST Tanika, nurse, notified that antibiotic was called in and to obtain urine culture with sensitivity. She verbalizes understanding and is agreeable. An Barker MA February 18, 2024 5:03 PM [facility]12-27-2024 Miscellaneous Notes* Telephone Encounter - An Barker MA - 02/18/2024 5:02 PM EST Tanika, nurse, notified that antibiotic was called in and to obtain urine culture with sensitivity. She verbalizes understanding and is agreeable. An Barker MA February 18, 2024 5:03 PM * Telephone Encounter - Donnell Dooley MD - 02/18/2024 4:48 PM EST Have them send for c and s. Rx sent * Telephone Encounter - Alejandrina Cooper RN - 02/18/2024 4:35 PM EST Tanika from [facility] calls and states that patient is complaining of lower abdomen pain. Patient completed antibiotics on 02/12 for UTI. Nursing did urine dip on patient, patient was positive for WBCs, Nitrites, Protein, and Ketones. Tanika is faxing over results to provider. [facility] Please review and advise, Alejandrina Cooper RN documented in this encounterBarney [facility]12-27-2024 Telephone encounter Note * Telephone Encounter - Donnell Dooley MD - 02/18/2024 4:48 PM EST Have them send for c and s. Rx sent [facility]12-27-2024 Telephone encounter Note* Telephone Encounter - Alejandrina Cooper RN - 02/18/2024 4:35 PM EST Tanika from [facility] calls and states that patient is complaining of lower abdomen pain. Patient completed antibiotics on 02/12 for UTI. Nursing did urine dip on patient, patient was positive for WBCs, Nitrites, Protein, and Ketones. Tanika is faxing over results to provider. [facility]. Please review and advise, Alejandrina Cooper RN [facility]12-20-2024 Telephone encounter Note* Telephone Encounter - Remberto Bob RN - 02/11/2024 12:08 PM EST Johanna returned call and given provider's message below with verbalized understanding. Johanna agreeable. [facility]12-20-2024 Miscellaneous Notes* Telephone Encounter - Remberto Bob RN - 02/11/2024 12:08 PM EST Johanna returned call and given provider's message below with verbalized understanding. Johanna agreeable. * Telephone Encounter - Jennifer Holm LPN - 02/11/2024 11:38 AM EST Left message for Johanna to call and speak with triage. I did pull culture report from [facility] so we are sure the ATB she is on should help. If not helping that is why she needs ER. * Telephone Encounter - Donnell Dooley MD - 02/11/2024 11:05 AM EST If still confused, to ER * Telephone Encounter - Alejandrina Cooper RN - 02/11/2024 11:03 AM EST Patient's daughter calls and states that patient has been on antibiotic for UTI for a couple of days. Daughter reports that patient is still out of it. Daughter asking if there is anything else that can be prescribed? Please review and advise, Alejandrina Cooper RN * Telephone Encounter - Donnell Dooley MD - 02/07/2024 7:57 PM EST See sheet from [facility] documented in this encounterBarney [facility]12-20-2024 Telephone encounter Note * Telephone Encounter - Jennifer Holm LPN - 02/11/2024 11:38 AM EST Left message for [place] to call and speak with triage. I did pull culture report from [facility] so we are sure the ATB she is on should help. If not helping that is why she needs ER. [facility]12-20-2024 Telephone encounter Note* Telephone Encounter - Donnell Dooley MD - 02/11/2024 11:05 AM EST If still confused, to ER [facility]12-20-2024 Telephone encounter Note* Telephone Encounter - Alejandrina Cooper RN - 02/11/2024 11:03 AM EST Patient's daughter calls and states that patient has been on antibiotic for UTI for a couple of days. Daughter reports that patient is still out of it. Daughter asking if there is anything else that can be prescribed? Please review and advise, Alejandrina Cooper RN [facility]12-16-2024 Telephone encounter Note* Telephone Encounter - Donnell Dooley MD - 02/07/2024 7:57 PM EST See sheet from [facility]11-22-2024 NoteHNO ID: [id number] Author: DONNELL DOOLEY MD Service: ? Author Type: Physician Type: Progress Notes Filed: 01/14/2024 14:48 Note Text: Patient presents with: 6 Month Exam HPI: Patient presents today for office visit for follow up. Here with daughter today. Mentions bruising all over. Is on asa. No gi bleeding or hematuria. She was using it for primary prevention. Discussed stopping. Mostly on her hands. Follows with Hem/Onc. Sees Pulm. Using her oxygen at night. Breathing has been stable. HTN: Denies chest pain Some shortness of breath. Hx of COPD. Uses inhalers. Occ headaches Does have dizziness. Hx of Meniere's. Occ palpitations No syncope Occ pedal edema No falls. Short term memory is worse. Daughter thinks is worse since passing of her dad. Emotinally ffels she is doing ok. Note was copied and pasted, without alteration from previous ov: Has been seeing Yvonne for venous stasis ulcer. Is doing much better. Wound care following at facility. Is now almost healed. Has a very small scab in the area. Saw Dr Triana recently. Sees Dr Antunez in a month. Still sees Dr Mendosa for meniere's. Had recent dizziness. Uses meclizine prn. Has not been back to see cardiology. Last echo showed 1-2 + TR. They prefer we wait to repeat an echo. No chest pain. Breathing is stable. No current edema. No palpitations. No falls. Last MRI was 2021 for her meningioma. Will consider repeat in one year. Still using her oxygen at night. Memory is about the same. Some short term memory issues. Physically feels well. Appetite is ok. Latest Ref Rng 01/10/2024 WBC 3.70 - 11.00 k/uL 11.27 (H) RBC 3.90 - 5.20 m/uL 4.31 Hemoglobin 11.5 - 15.5 g/dL 12.9 Hematocrit 36.0 - 46.0 % 40.4 MCV 80.0 - 100.0 fL 93.7 MCH 26.0 - 34.0 pg 29.9 MCHC 30.5 - 36.0 g/dL 31.9 RDW-CV 11.5 - 15.0 % 14.4 Platelet Count 150 - 400 k/uL 173 MPV 9.0 - 12.7 fL 12.1 Neut% % 56.3 Abs Neut (ANC) 1.45 - 7.50 k/uL 6.33 Lymph% % 31.1 Abs Lymph 1.00 - 4.00 k/uL 3.51 [place]alli% % 7.6 Abs [place] <0.87 k/uL 0.86 Eosin% % 3.7 Abs Eosin <0.46 k/uL 0.42 Baso% % 0.8 Abs Baso <0.11 k/uL 0.09 Immature Gran % % 0.5 IMMATURE GRANS (ABS) <0.10 k/uL 0.06 NRBC /100 WBC 0.0 Absolute nRBC <0.01 k/uL <0.01 DTYPE Auto Protein, Total 6.3 - 8.0 g/dL 5.8 (L) Albumin 3.9 - 4.9 g/dL 3.8 (L) Calcium 8.5 - 10.2 mg/dL 9.9 Bilirubin, Total 0.2 - 1.3 mg/dL 0.4 Alkaline Phosphatase 34 - 123 U/L 93 AST 13 - 35 U/L 25 ALT 7 - 38 U/L 18 Glucose 74 - 99 mg/dL 90 BUN 7 - 21 mg/dL 23 (H) Creatinine 0.58 - 0.96 mg/dL 0.68 Sodium 136 - 144 mmol/L 146 (H) Potassium 3.7 - 5.1 mmol/L 4.4 Chloride 98 - 107 mmol/L 106 CO2 22 - 30 mmol/L 31 (H) Anion Gap 8 - 15 mmol/L 9 eGFR >=60 mL/min/1.73m? 88 Cholesterol, Total <200 mg/dL 210 (H) Triglyceride <150 mg/dL 85 HDL Cholesterol >39 mg/dL 83 Non HDL Cholesterol <130 mg/dL 127 Fasting Time hrs 12 VLDL Cholesterol <30 mg/dL 17 TC:HDL Ratio <5.10 2.53 LDL Cholesterol <100 mg/dL 110 (H) LDL:HDL Ratio <2.54 1.33 MEDICATIONS: Current Outpatient Medications Medication Sig aspirin, enteric coated (ASPIRIN, ENTERIC COATED) 81 mg EC tablet Take 81 mg by mouth two times a day. fluticasone propion-salmeterol 232-14 mcg/actuation meloxicam (MOBIC) 7.5 mg tablet Take 7.5 mg by mouth once daily. ACETAMINOPHEN ORAL Take by mouth as needed. rivastigmine tartrate (EXELON) 1.5 mg capsule Take 1 capsule by mouth twice daily. triamterene-hydroCHLOROthiazide (DYAZIDE) 37.5-25 mg per capsule Take 1 capsule by mouth once daily. meclizine (ANTIVERT) 25 mg tab Take 25 mg by mouth as needed. calcium carbonate (TUMS ORAL) Take 1 tablet by mouth at bedtime as needed. nystatin (MYCOSTATIN) 100,000 unit/mL suspension three times daily. Cholecalciferol, Vitamin D3, 25 mcg (1,000 unit) cap Take 1,000 Units by mouth once daily. VENTOLIN HFA 90 mcg/actuation inhaler Inhale 2 Puffs as instructed every 6 hours as needed for Wheezing/Shortness of Breath. OXYGEN, HOME THERAPY, Inhale 3 L/min as instructed as directed. tiotropium (SPIRIVA WITH HANDIHALER) 18 mcg inhalation capsule INHALE THE CONTENTS OF ONE CAPSULE VIA HANDIHALER ONCE DAILY Zinc 50 mg tab Take 50 mg by mouth once daily. ipratropium-albuterol (DUONEB) 0.5 mg-3 mg(2.5 mg base)/3 mL nebu Inhale 3 mL as instructed every 6 hours as needed (wheezing/shortness of breath). CALCIUM ORAL Take 1 tablet by mouth once daily. MAGNESIUM ORAL Take 1 tablet by mouth once daily. No current facility-administered medications for this visit. ALLERGIES: ALLERGIES Allergen Reactions Augmentin [Amoxicil* Vomiting Codeine GI Upset, Vomiting Shellfish Containin* Swelling, Anaphylaxis, Shortness of Breath, Other: See Comments, Hives No serious trouble with recent re-introduction of shellfish into diet. Bacitracin Itching Latex Rash Freeman Swelling PAST MEDICAL HISTORY Diagnosis Date Breast cancer (HCC (more content not included)...[facility] 01-14-2024 History of Present illness Narrative* Donnell Dooley MD - 01/14/2024 2:08 PM EST Patient presents with: 6 Month Exam HPI: Patient presents today for office visit for follow up. Here with daughter today. Mentions bruising all over. Is on asa. No gi bleeding or hematuria. She was using it for primary prevention. Discussed stopping. Mostly on her hands. Follows with Hem/Onc. Sees Pulm. Using her oxygen at night. Breathing has been stable. HTN: Denies chest pain Some shortness of breath. Hx of COPD. Uses inhalers. Occ headaches Does have dizziness. Hx of Meniere's. Occ palpitations No syncope Occ pedal edema No falls. Short term memory is worse. Daughter thinks is worse since passing of her dad. Emotinally ffels sheis doing ok. Note was copied and pasted, without alteration from previous ov: Has been seeing Yvonne for venous stasis ulcer. Is doing much better. Wound care following at facility. Is now almost healed. Has a very small scab in the area. Saw Dr Triana recently. Sees Dr Antunez in a month. Still sees Dr Mendosa for meniere's. Had recent dizziness. Uses meclizine prn. Has not been back to see cardiology. Last echo showed 1-2 + TR. They prefer we wait to repeat an echo. No chest pain. Breathing is stable. No current edema. No palpitations. No falls. Last MRI was 2021 for her meningioma. Will consider repeat in one year. Still using her oxygen at night. Memory is about the same. Some short term memory issues. Physically feels well. Appetite is ok. Latest Ref Rng 01/10/2024 WBC 3.70 - 11.00 k/uL 11.27 (H) RBC 3.90 - 5.20 m/uL 4.31 Hemoglobin 11.5 - 15.5 g/dL 12.9 Hematocrit 36.0 - 46.0 % 40.4 MCV 80.0 - 100.0 fL 93.7 MCH 26.0 - 34.0 pg 29.9 MCHC 30.5 - 36.0 g/dL 31.9 RDW-CV 11.5 - 15.0 % 14.4 Platelet Count 150 - 400 k/uL 173 MPV 9.0 - 12.7 fL 12.1 Neut% % 56.3 Abs Neut (ANC) 1.45 - 7.50 k/uL 6.33 Lymph% % 31.1 Abs Lymph 1.00 - 4.00 k/uL 3.51 [place]% % 7.6 Abs [place] <0.87 k/uL 0.86 Eosin% % 3.7 Abs Eosin <0.46 k/uL 0.42 Baso% % 0.8 Abs Baso <0.11 k/uL 0.09 Immature Gran % % 0.5 IMMATURE GRANS (ABS) <0.10 k/uL 0.06 NRBC /100 WBC 0.0 Absolute nRBC <0.01 k/uL <0.01 DTYPE Auto Protein, Total 6.3 - 8.0 g/dL 5.8 (L) Albumin 3.9 - 4.9 g/dL 3.8 (L) Calcium 8.5 - 10.2 mg/dL 9.9 Bilirubin, Total 0.2 - 1.3 mg/dL 0.4 Alkaline Phosphatase 34 - 123 U/L 93 AST 13 - 35 U/L 25 ALT 7 - 38 U/L 18 Glucose 74 - 99 mg/dL 90 BUN 7 - 21 mg/dL 23 (H) Creatinine 0.58 - 0.96 mg/dL 0.68 Sodium 136 - 144 mmol/L 146 (H) Potassium 3.7 - 5.1 mmol/L 4.4 Chloride 98 - 107 mmol/L 106 CO2 22 - 30 mmol/L 31 (H) Anion Gap 8 - 15 mmol/L 9 eGFR >=60 mL/min/1.73m 88 Cholesterol, Total <200 mg/dL 210 (H) Triglyceride <150 mg/dL 85 HDL Cholesterol >39 mg/dL 83 Non HDL Cholesterol <130 mg/dL 127 Fasting Time hrs 12 VLDL Cholesterol <30 mg/dL 17 TC:HDL Ratio <5.10 2.53 LDL Cholesterol <100 mg/dL 110 (H) LDL:HDL Ratio <2.54 1.33 MEDICATIONS: Current Outpatient Medications Medication Sig aspirin, enteric coated (ASPIRIN, ENTERIC COATED) 81 mg EC tablet Take 81 mg by mouth two times a day. fluticasone propion-salmeterol 232-14 mcg/actuation meloxicam (MOBIC) 7.5 mg tablet Take 7.5 mg by mouth once daily. ACETAMINOPHEN ORAL Take by mouth as needed. rivastigmine tartrate (EXELON) 1.5 mg capsule Take 1 capsule by mouth twice daily. triamterene-hydroCHLOROthiazide (DYAZIDE) 37.5-25 mg per capsule Take 1 capsule by mouth once daily. meclizine (ANTIVERT) 25 mg tab Take 25 mg by mouth as needed. calcium carbonate (TUMS ORAL) Take 1 tablet by mouth at bedtime as needed. nystatin (MYCOSTATIN) 100,000 unit/mL suspension three times daily. Cholecalciferol, Vitamin D3, 25 mcg (1,000 unit) cap Take 1,000 Units by mouth once daily. VENTOLIN HFA 90 mcg/actuation inhaler Inhale 2 Puffs as instructed every 6 hours as needed for Wheezing/Shortness of Breath. OXYGEN, HOME THERAPY, Inhale 3 L/min as instructed as directed. tiotropium (SPIRIVA WITH HANDIHALER) 18 mcg inhalation capsule INHALE THE CONTENTS OF ONE CAPSULE VIA HANDIHALER ONCE DAILY Zinc 50 mg tab Take 50 mg by mouth once daily. ipratropium-albuterol (DUONEB) 0.5 mg-3 mg(2.5 mg base)/3 mL nebu Inhale 3 mL as instructed every 6hours as needed (wheezing/shortness of breath). CALCIUM ORAL Take 1 tablet by mouth once daily. MAGNESIUM ORAL Take 1 tablet by mouth once daily. No current facility-administered medications for this visit. ALLERGIES: ALLERGIES Allergen Reactions Augmentin [Amoxicil* Vomiting Codeine GI Upset, Vomiting Shellfish Containin* Swelling, Anaphylaxis, Shortness of Breath, Other: See Comments, Hives No serious trouble with recent re-introduction of shellfish into diet. Bacitracin Itching Latex Rash Freeman Swelling PAST MEDICAL HISTORY Diagnosis Date Breast cancer (HCC) Left mastectomy. Right mastectomy. Bilateral reconstructions. No chemo/XRT. Cervical cancer (HCC) Remote. SOHEILA/BSO. No chemo or XRT. COPD (chronic obstructive pulmonary disease) (HCC) Gastroenteritis History of ileus Meniere's disease [facility]. Meningioma (HCC) Mitral valve regurgitation Non Hodgkin's lymphoma (HCC) About 14 years ago. No XRT, chemotherapy. Watchful waiting. Osteoporosis PAST SURGICAL HISTORY Procedure Laterality Date BREAST RECONSTRUCTION CATARACT EXTRACTION HX Bilateral 2011 CATARACT SURGERY, COMPLEX COLONOSCOPY W/BIOPSY SINGLE/MULTIPLE 10/12/2016 D&C DIAG &/OR THERAP, NOT OB EGD TRANSORAL BIOPSY SINGLE/MULTIPLE 10/12/2016 EGD W/O BRSH SPEC VARICIES INJ N/A HEMORRHOIDECTOMY MASTECTOMY HX Bilateral 1982 PAST SURGICAL HISTORY OF Bronchial artery embolization, left lung PAST SURGICAL HISTORY OF 2002 Lymph node removal on left arm SLING OPER STRES INCONTINENCE TOT ABDOMINL HYSTERECTOMY 1984 FAMILY HISTORY Problem Relation Age of Onset Alzheimer's Disease Mother in her 80s. Aneurysm Father AAA at age 61. other (Chronic bronchitis.) Father other (Other) Brother Parkinson's vs [place]'s. age 61. other (Other) Other Meningioma: multiple cousins Social History Tobacco Use Smoking status: Former Current packs/day: 0.00 Average packs/day: 1 pack/day for 30.0 years (30.0 ttl pk-yrs) Types: Cigarettes Start date: 02/22/1969 Quit date: 02/22/1999 Years since quittin.9 Smokeless tobacco: Never Tobacco comments: Father smoked in childhood home. Vaping Use Vaping status: Never Used Substance Use Topics Alcohol use: Yes Alcohol/week: 4.0 standard drinks of alcohol Types: 4 Glasses of Wine (5oz) per week Comment: With dinner. Drug use: No Reviewed current medications, allergies, past medical history, surgical history, family history andsocial history today. REVIEW OF SYSTEMS No gi or gu iseus. All other reviewed and negative other than HPI. HEALTH MAINTENANCE: Reviewed health maintenance issues today and recommended the following in detail. Covid-19 Vaccine( season) -believes it was due. Done on day of flu VITALS: BP 118/66 Pulse (!) 59 Ht 149.9 cm (4' 11) Wt 45.9 kg (101 lb 3.1 oz) SpO2 99% BMI 20.44kg/m Last 4 Encounter Wt Readings: Date: Wt: 08/14/2023 42 kg (92 lb 9.5 oz) 06/28/2023 42.2 kg (93 lb) 05/18/2023 44.7 kg (98 lb 9.6 oz) 05/04/2023 43.1 kg (95 lb) PHYSICAL EXAMINATION: General appearance: Well appearing, alert, in no acute distress, well-hydrated, well nourished. Skin: Skin color, texture, turgor normal, no suspicious rashes or lesions. Some age purpura. Will stop asa and see if improves. Red flags for re-assessment reviewed with patient in detail. Head: Normocephalic, no masses, lesions, tenderness or abnormalities Lungs: Lungs clear to auscultation. No wheezing, rhonchi, rales Heart: RRR without murmur, gallop, or rubs. No ectopy Abdomen: Normal abdominal exam, Abdomen soft, non-tender. Bowel sounds normal. No masses, organomegaly Extremities: No deformities, edema, skin discoloration, clubbing or cyanosis. Good capillary refill. Musculoskeletal: No joint swelling, deformity, or tenderness ASSESSMENT/PLAN: 1. Mixed hyperlipidemia - ICD9: 272.2, ICD10: E78.2 (primary diagnosis) - Controlled - Continue current medications 2. VHD (valvular heart disease) - ICD9: 424.90, ICD10: I38 - consider checking in next year. 3. Meningioma (HCC) - ICD9: 225.2, ICD10: D32.9 Can consider repeat mri . Wants to wait. 4. Meniere's disease of both ears - ICD9: 386.00, ICD10: H81.03 - stable. 5. Pulmonary emphysema, unspecified emphysema type (HCC) - ICD9: 492.8, ICD10: J43.9 - stable. 6. Personal history of CLL (chronic lymphocytic leukemia) - ICD9: V10.61, ICD10: Z85.6 - follows with heme onc 7. History of breast cancer - ICD9: V10.3, ICD10: Z85.3 - stable. 8. Mild cognitive impairment - ICD9: 331.83, ICD10: G31.84 - stable. 9. Age-related osteoporosis without current pathological fracture - ICD9: 733.01, ICD10: M81.0 - declines further testing due to age. Donnell Dooley MD documented in this encounterBar[facility] Telephone encounter Note * Telephone Encounter - Jessica Middleton LPN - 01/06/2024 2:01 PM EST Detailed VM left on Johanna's identified voicemail of information below. Jessica Middleton LPN [facility]11-14-2024 Miscellaneous Notes* Telephone Encounter - Jessica Middleton LPN - 01/06/2024 2:01 PM EST Detailed VM left on Johanna's identified voicemail of information below. Jessica Middleton LPN * Telephone Encounter - Donnell Dooley MD - 01/06/2024 1:48 PM EST Orders placed * Telephone Encounter - Jennifer Holm LPN - 01/06/2024 12:29 PM EST Rescheduled visit from this week till next. Johanna asking if there are any labs that should be done prior to visit? She doesn't have any major concerns. She has noticed a little more decline in memorybut she does relate this a little to the loss of Andre. documented in this encounterBarney [facility]11-14-2024 Telephone encounter Note * Telephone Encounter - Donnell Dooley MD - 01/06/2024 1:48 PM EST Orders placed [facility]11-14-2024 Telephone encounter Note* Telephone Encounter - Jennifer Holm LPN - 01/06/2024 12:29 PM EST Rescheduled visit from this week till next. Johanna asking if there are any labs that should be done prior to visit? She doesn't have any major concerns. She has noticed a little more decline in memorybut she does relate this a little to the loss of Andre. [facility]08-26[facility] Telephone encounter Note* Telephone Encounter - Kaleigh Simmons RN - 10/18/2023 4:02 PM EDT Certified Tumor Registrar Haleigh at [facility] returning call to [facility] patient is improving since shebegan the Bactrim, as ordered by Dr. Gomez. Kaleigh Simmons RN [facility]08-26-2024 Miscellaneous Notes* Telephone Encounter - Kaleigh Simmons RN - 10/18/2023 4:02 PM EDT Certified Tumor Registrar Haleigh at [facility] returning call to [facility] patient is improving since shebegan the Bactrim, as ordered by Dr. Gomez. Kaleigh Simmons RN * Telephone Encounter - Thao Bowen LPN - 10/18/2023 1:36 PM EDT Message left on unit support representative Rusty svitlana , instructed to call office and ask for a triage nurse for update. Thao Bowen LPN * Telephone Encounter - Desi Gomez MD - 10/17/2023 7:35 AM EDT Rx sent for Bactrim DS BID x 7 days. Stop Macrobid. Go to ER with worsening symptoms of fever/chills, confusion, nausea, vomiting, abdominal pain, flank pain. Attempted to call daughter with this message without answer. LM to call office back regarding this. * Telephone Encounter - Tammy North LPN - 10/16/2023 11:41 AM EDT Culture showed that Proteus mirabilie is susceptible to: ampicillin ampicillin.sulbactam cefazolin cefepime ceftriaxone ciprofloxacin ertapanem gentamicin levofloxacin piperacillin/tazobactam tobramycin trimethoprim/sulfametho See scanned documents * Telephone Encounter - Tammy North LPN - 10/16/2023 11:18 AM EDT Nurse from [facility] called to state that the urine culture report showed that one ofthe bacteria is resistant to macrobid. She is faxing the report for review. documented in this encounterBarney [facility] Center08-26-2024 Telephone encounter Note * Telephone Encounter - Thao Bowen LPN - 10/18/2023 1:36 PM EDT Message left on unit support representative Rusty ROBERTS, instructed to call office and ask for a triage nurse for update. Thao Bowen LPN [facility]08-25-2024 Telephone encounter Note* Telephone Encounter - Isabel Vegas RN - 10/17/2023 10:08 AM EDT Caregiver calling to verify new antibiotic and pharmacy information. Spoke with MEG Andrade from [facility]. Verified medication and pharmacy info in [facility]. Caregiver denies anynew or worsening symptoms of which a provider is not aware:Yes . [facility]08-25-[facility] Miscellaneous Notes* Telephone Encounter - Isabel Vegas RN - 10/17/2023 10:08 AM EDT Caregiver calling to verify new antibiotic and pharmacy information. Spoke with MEG Andrade from [facility]. Verified medication and pharmacy info in [facility]. Caregiver denies anynew or worsening symptoms of which a provider is not aware:Yes . documented in this encounterBarney [facility] Center08-25-2024 Telephone encounter Note * Telephone Encounter - Roger Boateng RN - 10/17/2023 8:30 AM EDT Daughter calling with request for return call/Message from office: Message from office reviewed - see PCP encounter dated 10/17/23 at 7:36 am. Daughter verbalized understanding of message given. Daughter denies any new or worsening symptoms of which a provider is not aware: Yes. Daughter was informed of the message from Dr. Gomez regarding starting Bactrim and that the medication was sent to the [facility] in [place]. Daughter is advising that the medication should have been sent to [facility] because the patient is a resident at [facility]. On file, KEVIN sees [facility], daughter advising that this is incorrect. Daughter unsure of the contact information for [facility]. Daughter will have nurse from [facility] call back with the contact information for [facility] so it is ensured medication goes to the correct pharmacy. [facility]08-[facility] Miscellaneous Notes* Telephone Encounter - Roger Boateng RN - 10/17/2023 8:30 AM EDT Daughter calling with request for return call/Message from office: Message from office reviewed - see PCP encounter dated 10/17/23 at 7:36 am. Daughter verbalized understanding of message given. Daughter denies any new or worsening symptoms of which a provider is not aware: Yes. Daughter was informed of the message from Dr. Gomez regarding starting Bactrim and that the medication was sent to the [facility] in [place]. Daughter is advising that the medication should have been sent to [facility] because the patient is a resident at [facility]. On file, KEVIN sees [facility], daughter advising that this is incorrect. Daughter unsure of the contact information for [facility]. Daughter will have nurse from [facility] call back with the contact information for [facility] so it is ensured medication goes to the correct pharmacy. documented in this encounterBarney [facility] Center08-25-2024 Telephone encounter Note * Telephone Encounter - Desi Gomez MD - 10/17/2023 7:35 AM EDT Rx sent for Bactrim DS BID x 7 days. Stop Macrobid. Go to ER with worsening symptoms of fever/chills, confusion, nausea, vomiting, abdominal pain, flank pain. Attempted to call daughter with this message without answer. LM to call office back regarding this. [facility]08-[facility] Telephone encounter Note* Telephone Encounter - Tammy North LPN - 10/16/2023 11:41 AM EDT Culture showed that Proteus mirabilie is susceptible to: ampicillin ampicillin.sulbactam cefazolin cefepime ceftriaxone ciprofloxacin ertapanem gentamicin levofloxacin piperacillin/tazobactam tobramycin trimethoprim/sulfametho See scanned documents [facility]08-24-20[facility] Telephone encounter Note* Telephone Encounter - Tammy North LPN - 10/16/2023 11:18 AM EDT Nurse from [facility] called to state that the urine culture report showed that one ofthe bacteria is resistant to macrobid. She is faxing the report for review. [facility]08-[facility] Telephone encounter Note* Telephone Encounter - Jennifer Holm LPN - 10/13/2023 5:23 PM EDT Orders were given to Haleigh via phone. [facility]08-21-2024 Miscellaneous Notes* Telephone Encounter - Jennifer Holm LPN - 10/13/2023 5:23 PM EDT Orders were given to Haleigh via phone. * Telephone Encounter - Morelia Hewitt APRN.CNP - 10/13/2023 5:18 PM EDT Start macrobid 100 mg twice daily for 10 days. Send urine for culture. Morelia Hewitt APRN.MARKER MACHINE * Telephone Encounter - Jennifer Holm LPN - 10/13/2023 5:11 PM EDT UA showed 70+ WBC +nitrite no blood * Telephone Encounter - Kaleigh Simmons RN - 10/13/2023 4:48 PM EDT Nurse Haleigh calling from [facility] regarding patient. Reports they have sent a fax over to PCP office indicating pt has had recent abnormal urine dip along with confusion, increased frequency and urgency. Asking provider if they wish to order a urine culture and/or medication? Please either respond back on their fax, and fax to [phone] or call Nurse at [phone] withreply. Thank you. documented in this encounterBarney [facility] Center08-21-2024 Telephone encounter Note * Telephone Encounter - Morelia Hewitt APRN.CNP - 10/13/2023 5:18 PM EDT Start macrobid 100 mg twice daily for 10 days. Send urine for culture. Morelia Hewitt APRN.MARKER MACHINE [facility] Work Phone: [phone]) 653-357408-21-2024 Telephone encounter Note* Telephone Encounter - Jennifer Holm LPN - 10/13/2023 5:11 PM EDT UA showed 70+ WBC +nitrite no blood [facility]08-21-2024 Telephone encounter Note* Telephone Encounter - Kaleigh Simmons RN - 10/13/2023 4:48 PM EDT Nurse Ricardo calling from [facility] regarding patient. Reports they have sent a fax over to PCP office indicating pt has had recent abnormal urine dip along with confusion, increased frequency and urgency. Asking provider if they wish to order a urine culture and/or medication? Please either respond back on their fax, and fax to [phone] or call Nurse at [phone] withreply. Thank you. [facility]06-25-2024 Telephone encounter Note* Telephone Encounter - Alejandrina Cooper RN - 08/17/2023 11:32 AM EDT Johanna Calls back and notified of below. Johanna voices understanding. Johanna transferred to machine operator farmworker to get testing scheduled. Alejandrina Cooper RN [facility]06-25-2024 Miscellaneous Notes* Telephone Encounter - Alejandrina Cooper RN - 08/17/2023 11:32 AM EDT Johanna Calls back and notified of below. Johanna voices understanding. Johanna transferred to machine operator farmworker to get testing scheduled. Alejandrina Cooper, RN * Telephone Encounter - Ruby Delgado OCCA - 08/17/2023 11:18 AM EDT TC no answer. Left VM to return call.ANDERS [place]ff * Telephone Encounter - Morelia Hewitt APRN.CNP - 08/17/2023 10:22 AM EDT Lets have her get an ultrasound of the bladder to r/o urinary retention. The order is in. Morelia Hewitt APRN.REYNALDO * Telephone Encounter - Jennifer Conrad LPN - 08/17/2023 10:06 AM EDT Patient daughter Johanna returned call and went over results, notes from Morelia Hewitt DRAPERY COUNSELOR, daughter said mother is voiding more often may not be getting empty. * Telephone Encounter - Parish Correia LPN - 08/17/2023 9:39 AM EDT Phoned daughterJohanna. LM to return call to office. Parish Correia LPN * Telephone Encounter - Morelia Hewitt APRN.CNP - 08/16/2023 7:55 PM EDT Can please let patient know that I received her CT results. There were no acute findings. It incidentally showed some non-worrisome cysts on her liver. It also showed some diverticulosis, but no symptoms of infection. It showed her bladder was a little distended. Does it feel like she is emptying her bladder completely when she urinates? documented in this encounterBarney [facility]06-25-2024 Telephone encounter Note * Telephone Encounter - Ruby Delgado OCCA - 08/17/2023 11:18 AM EDT TC no answer. Left VM to return call.ANDERS Neff [facility]06-25-2024 Telephone encounter Note* Telephone Encounter - Morelia Hewitt APRN.CNP - 08/17/2023 10:22 AM EDT Lets have her get an ultrasound of the bladder to r/o urinary retention. The order is in. Morelia Hewitt APRN.REYNALDO [facility]06-25-2024 Telephone encounter Note* Telephone Encounter - Jennifer Conrad LPN - 08/17/2023 10:06 AM EDT Patient daughter Johanna returned call and went over results, notes from Morelia Hewitt DRAPERY COUNSELOR, daughter said mother is voiding more often may not be getting empty. [facility]06-25-[facility] Telephone encounter Note* Telephone Encounter - Parish Correia LPN - 08/17/2023 9:39 AM EDT Phoned daughter, Johanna. LM to return call to office. Parish Correia LPN [facility]06-24-2024 Telephone encounter Note* Telephone Encounter - Morelia Hewitt APRN.CNP - 08/16/2023 7:55 PM EDT Can please let patient know that I received her CT results. There were no acute findings. It incidentally showed some non-worrisome cysts on her liver. It also showed some diverticulosis, but no symptoms of infection. It showed her bladder was a little distended. Does it feel like she is emptying her bladder completely when she urinates? [facility]06-22-2024 NoteHNO ID: [id number] Author: SAV MEJÍA APRN.MARKER MACHINE Service: ? Author Type: Nurse Practitioner Type: Progress Notes Filed: 08/14/2023 14:12 Note Text: Subjective HPI Nontoxic-appearing female presents urgent care chief complaint bilateral eye swelling and redness. Duration of symptoms 1 week. Associated symptoms listed above. Patient is presents today due to worsening eye redness and swelling. States left eye is painful. Is noticing worsening vision in this eye. Presents today for evaluation. Has been using antihistamine eyedrops and Claritin. This has not helped. Denies any eye trauma. History of cataract surgery. Past medical history prescription medications allergies reviewed. .Patient presents with: Eye Problem: Bilat eyes, redness, swelling, x 1 week PAST MEDICAL HISTORY Diagnosis Date Breast cancer (HCC) Left mastectomy. Right mastectomy. Bilateral reconstructions. No chemo/XRT. Cervical cancer (HCC) Remote. SOHEILA/BSO. No chemo or XRT. COPD (chronic obstructive pulmonary disease) (HCC) Gastroenteritis History of ileus Meniere's disease [facility]. Meningioma (HCC) Mitral valve regurgitation Non Hodgkin's lymphoma (HCC) About 14 years ago. No XRT, chemotherapy. Watchful waiting. Osteoporosis PAST SURGICAL HISTORY Procedure Laterality Date BREAST RECONSTRUCTION CATARACT EXTRACTION HX Bilateral 2011 CATARACT SURGERY, COMPLEX COLONOSCOPY W/BIOPSY SINGLE/MULTIPLE 10/12/2016 [facility] DIAG AND/OR THERAP, NOT OB EGD TRANSORAL BIOPSY SINGLE/MULTIPLE 10/12/2016 EGD W/O BRSH SPEC VARICIES INJ N/A HEMORRHOIDECTOMY MASTECTOMY HX Bilateral 1982 PAST SURGICAL HISTORY OF Bronchial artery embolization, left lung PAST SURGICAL HISTORY OF 2002 Lymph node removal on left arm SLING OPER STRES INCONTINENCE TOT ABDOMINL HYSTERECTOMY 1984 ALLERGIES Augmentin [Amoxicillin-Pot Clavulanate], Codeine, Shellfish Containing Products, Bacitracin, Latex, and Freeman MEDICATIONS aspirin, enteric coated (ASPIRIN, ENTERIC COATED) 81 mg EC tablet Take 81 mg by mouth two times a day. Hydrocolloid Dressing (DUODERM CGF BORDER DRESSING) 4 X 4 bndg Apply 1 Each to affected area every 36 hours. fluticasone propion-salmeterol 232-14 mcg/actuation meloxicam (MOBIC) 7.5 mg tablet Take 7.5 mg by mouth once daily. lidocaine (LIDODERM) 5 % Apply 1 Patch as directed every 24 hours. ACETAMINOPHEN ORAL Take by mouth as needed. rivastigmine tartrate (EXELON) 1.5 mg capsule Take 1 capsule by mouth twice daily. triamterene-hydroCHLOROthiazide (DYAZIDE) 37.5-25 mg per capsule Take 1 capsule by mouth once daily. meclizine (ANTIVERT) 25 mg tab Take 25 mg by mouth as needed. calcium carbonate (TUMS ORAL) Take 1 tablet by mouth at bedtime as needed. nystatin (MYCOSTATIN) 100,000 unit/mL suspension three times daily. Cholecalciferol, Vitamin D3, 25 mcg (1,000 unit) cap Take 1,000 Units by mouth once daily. VENTOLIN HFA 90 mcg/actuation inhaler Inhale 2 Puffs as instructed every 6 hours as needed for Wheezing/Shortness of Breath. OXYGEN, HOME THERAPY, Inhale 3 L/min as instructed as directed. tiotropium (SPIRIVA WITH HANDIHALER) 18 mcg inhalation capsule INHALE THE CONTENTS OF ONE CAPSULE VIA HANDIHALER ONCE DAILY Zinc 50 mg tab Take 50 mg by mouth once daily. ipratropium-albuterol (DUONEB) 0.5 mg-3 mg(2.5 mg base)/3 mL nebu Inhale 3 mL as instructed every 6 hours as needed (wheezing/shortness of breath). CALCIUM ORAL Take 1 tablet by mouth once daily. MAGNESIUM ORAL Take 1 tablet by mouth once daily. FAMILY HISTORY Problem Relation Age of Onset Alzheimer's Disease Mother in her 80s. Aneurysm Father AAA at age 61. other (Chronic bronchitis.) Father other (Other) Brother Parkinson's vs [place]'s. age 61. other (Other) Other Meningioma: multiple cousins Social History Tobacco Use Smoking status: Former Packs/day: 1.00 Years: 30.00 Additional pack years: 0.00 Total pack years: 30.00 Types: Cigarettes Quit date: 02/22/1999 Years since quittin.4 Smokeless tobacco: Never Tobacco comments: Father smoked in childhood home. Vaping Use Vaping Use: Never used Substance Use Topics Alcohol use: Yes Alcohol/week: 4.0 standard drinks of alcohol Types: 4 Glasses of Wine (5oz) per week Comment: With dinner. Drug use: No BP 131/78 Pulse 63 Temp 36.7 ?C (98.1 ?F) Resp 20 Wt 42 kg (92 lb 9.5 oz) SpO2 98% BMI 18.18 kg/m? Review of Systems Constitutional: Negative for chills, fever and malaise/fatigue. HENT: Negative for congestion, ear discharge, ear pain, sinus pain and sore throat. Eyes: Positive for blurred vision, pain, discharge and redness. Negative for double vision and photophobia. Respiratory: Negative for cough, hemoptysis, sputum production, shortness of breath, wheezing and stridor. Cardiovascular: Negative for chest pain. Gastrointestinal: Negative for abdominal pain, diarrhea, na (more content not included)...[facility]06-22-2024 History of Present illness Narrative* Sav Mejía, RADHA.MARKER MACHINE - 08/14/2023 1:54 PM EDT Subjective HPI Nontoxic-appearing female presents urgent care chief complaint bilateral eye swelling and redness. Duration of symptoms 1 week. Associated symptoms listed above. Patient is presents today due to worsening eye redness and swelling. States left eye is painful. Is noticing worsening vision in this eye. Presents today for evaluation. Has been using antihistamine eyedrops and Claritin. This has not helped. Denies any eye trauma. History of cataract surgery. Past medical history prescription medications allergies reviewed. .Patient presents with: Eye Problem: Bilat eyes, redness, swelling, x 1 week PAST MEDICAL HISTORY Diagnosis Date Breast cancer (HCC) Left mastectomy. Right mastectomy. Bilateral reconstructions. No chemo/XRT. Cervical cancer (HCC) Remote. SOHEILA/BSO. No chemo or XRT. COPD (chronic obstructive pulmonary disease) (HCC) Gastroenteritis History of ileus Meniere's disease [facility]. Meningioma (HCC) Mitral valve regurgitation Non Hodgkin's lymphoma (HCC) About 14 years ago. No XRT, chemotherapy. Watchful waiting. Osteoporosis PAST SURGICAL HISTORY Procedure Laterality Date BREAST RECONSTRUCTION CATARACT EXTRACTION HX Bilateral 2011 CATARACT SURGERY, COMPLEX COLONOSCOPY W/BIOPSY SINGLE/MULTIPLE 10/12/2016 [facility]&C DIAG &/OR THERAP, NOT OB EGD TRANSORAL BIOPSY SINGLE/MULTIPLE 10/12/2016 EGD W/O BRSH SPEC VARICIES INJ N/A HEMORRHOIDECTOMY MASTECTOMY HX Bilateral 1982 PAST SURGICAL HISTORY OF Bronchial artery embolization, left lung PAST SURGICAL HISTORY OF 2002 Lymph node removal on left arm SLING OPER STRES INCONTINENCE TOT ABDOMINL HYSTERECTOMY 1984 ALLERGIES Augmentin [Amoxicillin-Pot Clavulanate], Codeine, Shellfish Containing Products, Bacitracin, Latex, and Freeman MEDICATIONS aspirin, enteric coated (ASPIRIN, ENTERIC COATED) 81 mg EC tablet Take 81 mg by mouth two times a day. Hydrocolloid Dressing (DUODERM CGF BORDER DRESSING) 4 X 4 bndg Apply 1 Each to affected area every 36 hours. fluticasone propion-salmeterol 232-14 mcg/actuation meloxicam (MOBIC) 7.5 mg tablet Take 7.5 mg by mouth once daily. lidocaine (LIDODERM) 5 % Apply 1 Patch as directed every 24 hours. ACETAMINOPHEN ORAL Take by mouth as needed. rivastigmine tartrate (EXELON) 1.5 mg capsule Take 1 capsule by mouth twice daily. triamterene-hydroCHLOROthiazide (DYAZIDE) 37.5-25 mg per capsule Take 1 capsule by mouth once daily. meclizine (ANTIVERT) 25 mg tab Take 25 mg by mouth as needed. calcium carbonate (TUMS ORAL) Take 1 tablet by mouth at bedtime as needed. nystatin (MYCOSTATIN) 100,000 unit/mL suspension three times daily. Cholecalciferol, Vitamin D3, 25 mcg (1,000 unit) cap Take 1,000 Units by mouth once daily. VENTOLIN HFA 90 mcg/actuation inhaler Inhale 2 Puffs as instructed every 6 hours as needed for Wheezing/Shortness of Breath. OXYGEN, HOME THERAPY, Inhale 3 L/min as instructed as directed. tiotropium (SPIRIVA WITH HANDIHALER) 18 mcg inhalation capsule INHALE THE CONTENTS OF ONE CAPSULE VIA HANDIHALER ONCE DAILY Zinc 50 mg tab Take 50 mg by mouth once daily. ipratropium-albuterol (DUONEB) 0.5 mg-3 mg(2.5 mg base)/3 mL nebu Inhale 3 mL as instructed every 6hours as needed (wheezing/shortness of breath). CALCIUM ORAL Take 1 tablet by mouth once daily. MAGNESIUM ORAL Take 1 tablet by mouth once daily. FAMILY HISTORY Problem Relation Age of Onset Alzheimer's Disease Mother in her 80s. Aneurysm Father AAA at age 61. other (Chronic bronchitis.) Father other (Other) Brother Parkinson's vs [place]'s. age 61. other (Other) Other Meningioma: multiple cousins Social History Tobacco Use Smoking status: Former Packs/day: 1.00 Years: 30.00 Additional pack years: 0.00 Total pack years: 30.00 Types: Cigarettes Quit date: 02/22/1999 Years since quittin.4 Smokeless tobacco: Never Tobacco comments: Father smoked in childhood home. Vaping Use Vaping Use: Never used Substance Use Topics Alcohol use: Yes Alcohol/week: 4.0 standard drinks of alcohol Types: 4 Glasses of Wine (5oz) per week Comment: With dinner. Drug use: No BP 131/78 Pulse 63 Temp 36.7 C (98.1 F) Resp 20 Wt 42 kg (92 lb 9.5 oz) SpO2 98% BMI 18.18 kg/m Review of Systems Constitutional: Negative for chills, fever and malaise/fatigue. HENT: Negative for congestion, ear discharge, ear pain, sinus pain and sore throat. Eyes: Positive for blurred vision, pain, discharge and redness. Negative for double vision and photophobia. Respiratory: Negative for cough, hemoptysis, sputum production, shortness of breath, wheezing and stridor. Cardiovascular: Negative for chest pain. Gastrointestinal: Negative for abdominal pain, diarrhea, nausea and vomiting. Musculoskeletal: Negative for myalgias. Skin: Negative for itching and rash. Neurological: Negative for dizziness and headaches. Objective Physical Exam Constitutional: General: She is not in acute distress. Appearance: She is not toxic-appearing. HENT: Head: Normocephalic. Nose: Nose normal. Eyes: General: Lids are normal. Right eye: Discharge present. Left eye: Discharge present. Conjunctiva/sclera: Right eye: Right conjunctiva is injected. Left eye: Left conjunctiva is injected. Pupils: Pupils are equal, round, and reactive to light. Cardiovascular: Rate and Rhythm: Normal rate. Musculoskeletal: Cervical back: Normal range of motion. Skin: General: Skin is warm and dry. Neurological: General: No focal deficit present. Mental Status: She is alert. ASSESSMENT/PLAN: 1. Eye pain, bilateral - ICD9: 379.91, ICD10: H57.13 Patient had moderate amount of redness bilateral. Limbus was injected bilaterally. Visual changes left eye was acute and worsening. Recommended patient reach out to ophthalmology office for further evaluation care. Patient and daughter verbalized understand agrees plan of care. Sav Mejía APRN.REYNALDO documented in this encounterBarney [facility]06-[facility] History of Present illness Narrative* Erin Simon RT(R) - 08/11/2023 3:20 PM EDT Radiology Service Progress Note PATIENT NAME: Madison Lofton DATE OF SERVICE: August 11, 2023 TIME: 3:52 PM PATIENT IDENTITY VERIFICATION COMPLETED USING TWO (2) IDENTIFIERS: Name and Date of confirmedby patient verbally. FALL SCREENING: Has the patient had 2 falls in the last year or 1 fall with injury or currently using an Ambulatory Assistive Device (Walker, Cane, Wheelchair, Crutches, etc.)? No PATIENT GENDER DATA: Female. status: : No status: NO. PATIENT RELEVANT IMPLANT DATA REVIEWED: Yes PATIENT PRESENTS WITH AN IMPLANTABLE OR ATTACHED RADIO FREQUENCY ENGINEER: No RADIOLOGY DEPARTMENT: CT; Exam(s) Completed: Abdomen/Pelvis PERIPHERAL IV DATA: Not applicable SIGNED BY: RT Samantha(Stephanie) August 11, 2023 3:52 PM documented in this encounterBarney Children'S [facility]06-19-2024 NoteHNO ID: [id number] Author: ERIN SIMON RT(R) Service: ? Author Type: Wardrobe Specialist Type: Progress Notes Filed: 08/11/2023 15:52 Note Text: Radiology Service Progress Note PATIENT NAME: Madison Lofton DATE OF SERVICE: August 11, 2023 TIME: 3:52 PM PATIENT IDENTITY VERIFICATION COMPLETED USING TWO (2) IDENTIFIERS: Name and Date of confirmed by patient verbally. FALL SCREENING: Has the patient had 2 falls in the last year or 1 fall with injury or currently using an Ambulatory Assistive Device (Walker, Cane, Wheelchair, Crutches, etc.)? No PATIENT GENDER DATA: Female. status: : No status: NO. PATIENT RELEVANT IMPLANT DATA REVIEWED: Yes PATIENT PRESENTS WITH AN IMPLANTABLE OR ATTACHED RADIO FREQUENCY ENGINEER: No RADIOLOGY DEPARTMENT: CT; Exam(s) Completed: Abdomen/Pelvis PERIPHERAL IV DATA: Not applicable SIGNED BY: RT Samantha(R) August 11, 2023 3:52 [facility]06-12-2024 Instructions* Patient Instructions* Morelia Hewitt APRN.CNP - 08/04/2023 9:[address] To ER with any severe symptoms. documented in this encounterBarney Children'S [facility]06-12-2024 NoteHNO ID: [id number] Author: MORELIA HEWITT APRN.CNP Service: ? Author Type: Nurse Practitioner Type: Progress Notes Filed: 08/04/2023 10:03 Note Text: This is a 83 year old female who presents today with: Patient presents with: Acute Visit: Loss of bladder control, lower abdominal pain, pressure when urinating; no blood in urine HISTORY OF PRESENT ILLNESS: Madison Lofton is a 83 year old female. Patient presents with: Acute Visit: Loss of bladder control, lower abdominal pain, pressure when urinating; no blood in urine Pt presents today with complaint of suprapubic area and in the lower back. (Does get pain shots in the lower back). Started a month ago. Lives at [place]. Refers did a urine sample about a month ago, but was normal. No fever/chills. Sometimes some abdominal pain with urination. Increased frequency of urination. Wears pads all the time - more leakage of urine. + urgency. Doesn't think there was blood - but a couple of times questioned it. No constipation/diarrhea. Stooling more than she used to. No pain with stooling. No hematochezia/melena. Remote colonoscopy does show diverticulosis. No vaginal discharge/odor. Hx of SOHEILA/BSO. No vaginal bleeding. No vaginal protrusions. PAST MEDICAL HISTORY: PAST MEDICAL HISTORY Diagnosis Date Breast cancer (HCC) Left mastectomy. Right mastectomy. Bilateral reconstructions. No chemo/XRT. Cervical cancer (HCC) Remote. SOHEILA/BSO. No chemo or XRT. COPD (chronic obstructive pulmonary disease) (HCC) Gastroenteritis History of ileus Meniere's disease [facility]. Meningioma (HCC) Mitral valve regurgitation Non Hodgkin's lymphoma (HCC) About 14 years ago. No XRT, chemotherapy. Watchful waiting. Osteoporosis PAST SURGICAL HISTORY Procedure Laterality Date BREAST RECONSTRUCTION CATARACT EXTRACTION HX Bilateral 2011 CATARACT SURGERY, COMPLEX COLONOSCOPY W/BIOPSY SINGLE/MULTIPLE 10/12/2016 [facility] DIAG AND/OR THERAP, NOT OB EGD TRANSORAL BIOPSY SINGLE/MULTIPLE 10/12/2016 EGD W/O BRSH SPEC VARICIES INJ N/A HEMORRHOIDECTOMY MASTECTOMY HX Bilateral 1982 PAST SURGICAL HISTORY OF Bronchial artery embolization, left lung PAST SURGICAL HISTORY OF 2002 Lymph node removal on left arm SLING OPER STRES INCONTINENCE TOT ABDOMINL HYSTERECTOMY 1984 ALLERGIES Augmentin [Amoxicillin-Pot Clavulanate], Codeine, Shellfish Containing Products, Bacitracin, Latex, and Freeman MEDICATIONS Current Outpatient Medications Medication Sig aspirin, enteric coated (ASPIRIN, ENTERIC COATED) 81 mg EC tablet Take 81 mg by mouth two times a day. Hydrocolloid Dressing (DUODERM CGF BORDER DRESSING) 4 X 4 bndg Apply 1 Each to affected area every 36 hours. fluticasone propion-salmeterol 232-14 mcg/actuation meloxicam (MOBIC) 7.5 mg tablet Take 7.5 mg by mouth once daily. lidocaine (LIDODERM) 5 % Apply 1 Patch as directed every 24 hours. ACETAMINOPHEN ORAL Take by mouth as needed. rivastigmine tartrate (EXELON) 1.5 mg capsule Take 1 capsule by mouth twice daily. triamterene-hydroCHLOROthiazide (DYAZIDE) 37.5-25 mg per capsule Take 1 capsule by mouth once daily. meclizine (ANTIVERT) 25 mg tab Take 25 mg by mouth as needed. calcium carbonate (TUMS ORAL) Take 1 tablet by mouth at bedtime as needed. nystatin (MYCOSTATIN) 100,000 unit/mL suspension three times daily. Cholecalciferol, Vitamin D3, 25 mcg (1,000 unit) cap Take 1,000 Units by mouth once daily. VENTOLIN HFA 90 mcg/actuation inhaler Inhale 2 Puffs as instructed every 6 hours as needed for Wheezing/Shortness of Breath. OXYGEN, HOME THERAPY, Inhale 3 L/min as instructed as directed. tiotropium (SPIRIVA WITH HANDIHALER) 18 mcg inhalation capsule INHALE THE CONTENTS OF ONE CAPSULE VIA HANDIHALER ONCE DAILY Zinc 50 mg tab Take 50 mg by mouth once daily. ipratropium-albuterol (DUONEB) 0.5 mg-3 mg(2.5 mg base)/3 mL nebu Inhale 3 mL as instructed every 6 hours as needed (wheezing/shortness of breath). CALCIUM ORAL Take 1 tablet by mouth once daily. MAGNESIUM ORAL Take 1 tablet by mouth once daily. No current facility-administered medications for this visit. FAMILY HISTORY Problem Relation Age of Onset Alzheimer's Disease Mother in her 80s. Aneurysm Father AAA at age 61. other (Chronic bronchitis.) Father other (Other) Brother Parkinson's vs Donavon's. age 61. other (Other) Other Meningioma: multiple cousins Social History Tobacco Use Smoking status: Former Packs/day: 1.00 Years: 30.00 Additional pack years: 0.00 Total pack years: 30.00 Types: Cigarettes Quit date: 02/22/1999 Years since quittin.4 Smokeless tobacco: Never Tobacco comments: Father smoked in childhood home. Vaping Use Vaping Use: Never used Substance Use Topics Alcohol use: Yes Alcohol/week: 4.0 standard drinks of alcohol Types: 4 Glasses of Wine (5oz) per week Comment: With dinner. Drug use: No EXAM: BP (more content not included)...[facility]06-12-2024 History of Present illness Narrative* Morelia Hewitt APRN.MARKER MACHINE - 08/04/2023 9:26 AM EDT This is a 83 year old female who presents today with: Patient presents with: Acute Visit: Loss of bladder control, lower abdominal pain, pressure when urinating; no blood in urine HISTORY OF PRESENT ILLNESS: Madison Lofton is a 83 year old female. Patient presents with: Acute Visit: Loss of bladder control, lower abdominal pain, pressure when urinating; no blood in urine Pt presents today with complaint of suprapubic area and in the lower back. (Does get pain shots in the lower back). Started a month ago. Lives at [place]. Refers did a urine sample about a month ago, but was normal. No fever/chills. Sometimes some abdominal pain with urination. Increased frequency of urination. Wears pads all the time - more leakage of urine. + urgency. Doesn't think there was blood - but a couple of times questioned it. No constipation/diarrhea. Stooling more than she used to. No pain with stooling. No hematochezia/melena. Remote colonoscopy does show diverticulosis. No vaginal discharge/odor. Hx of SOHEILA/BSO. No vaginal bleeding. No vaginal protrusions. PAST MEDICAL HISTORY: PAST MEDICAL HISTORY Diagnosis Date Breast cancer (HCC) Left mastectomy. Right mastectomy. Bilateral reconstructions. No chemo/XRT. Cervical cancer (HCC) Remote. SOHEILA/BSO. No chemo or XRT. COPD (chronic obstructive pulmonary disease) (HCC) Gastroenteritis History of ileus Meniere's disease [facility]. Meningioma (HCC) Mitral valve regurgitation Non Hodgkin's lymphoma (HCC) About 14 years ago. No XRT, chemotherapy. Watchful waiting. Osteoporosis PAST SURGICAL HISTORY Procedure Laterality Date BREAST RECONSTRUCTION CATARACT EXTRACTION HX Bilateral 2011 CATARACT SURGERY, COMPLEX COLONOSCOPY W/BIOPSY SINGLE/MULTIPLE 10/12/2016 [facility] &/OR THERAP, NOT OB EGD TRANSORAL BIOPSY SINGLE/MULTIPLE 10/12/2016 EGD W/O BRSH SPEC VARICIES INJ N/A HEMORRHOIDECTOMY MASTECTOMY HX Bilateral 1982 PAST SURGICAL HISTORY OF Bronchial artery embolization, left lung PAST SURGICAL HISTORY OF 2002 Lymph node removal on left arm SLING OPER STRES INCONTINENCE TOT ABDOMINL HYSTERECTOMY 1984 ALLERGIES Augmentin [Amoxicillin-Pot Clavulanate], Codeine, Shellfish Containing Products, Bacitracin, Latex, and Freeman MEDICATIONS Current Outpatient Medications Medication Sig aspirin, enteric coated (ASPIRIN, ENTERIC COATED) 81 mg EC tablet Take 81 mg by mouth two times a day. Hydrocolloid Dressing (DUODERM CGF BORDER DRESSING) 4 X 4 bndg Apply 1 Each to affected area every 36 hours. fluticasone propion-salmeterol 232-14 mcg/actuation meloxicam (MOBIC) 7.5 mg tablet Take 7.5 mg by mouth once daily. lidocaine (LIDODERM) 5 % Apply 1 Patch as directed every 24 hours. ACETAMINOPHEN ORAL Take by mouth as needed. rivastigmine tartrate (EXELON) 1.5 mg capsule Take 1 capsule by mouth twice daily. triamterene-hydroCHLOROthiazide (DYAZIDE) 37.5-25 mg per capsule Take 1 capsule by mouth once daily. meclizine (ANTIVERT) 25 mg tab Take 25 mg by mouth as needed. calcium carbonate (TUMS ORAL) Take 1 tablet by mouth at bedtime as needed. nystatin (MYCOSTATIN) 100,000 unit/mL suspension three times daily. Cholecalciferol, Vitamin D3, 25 mcg (1,000 unit) cap Take 1,000 Units by mouth once daily. VENTOLIN HFA 90 mcg/actuation inhaler Inhale 2 Puffs as instructed every 6 hours as needed for Wheezing/Shortness of Breath. OXYGEN, HOME THERAPY, Inhale 3 L/min as instructed as directed. tiotropium (SPIRIVA WITH HANDIHALER) 18 mcg inhalation capsule INHALE THE CONTENTS OF ONE CAPSULE VIA HANDIHALER ONCE DAILY Zinc 50 mg tab Take 50 mg by mouth once daily. ipratropium-albuterol (DUONEB) 0.5 mg-3 mg(2.5 mg base)/3 mL nebu Inhale 3 mL as instructed every 6hours as needed (wheezing/shortness of breath). CALCIUM ORAL Take 1 tablet by mouth once daily. MAGNESIUM ORAL Take 1 tablet by mouth once daily. No current facility-administered medications for this visit. FAMILY HISTORY Problem Relation Age of Onset Alzheimer's Disease Mother in her 80s. Aneurysm Father AAA at age 61. other (Chronic bronchitis.) Father other (Other) Brother Parkinson's vs Donavon's. age 61. other (Other) Other Meningioma: multiple cousins Social History Tobacco Use Smoking status: Former Packs/day: 1.00 Years: 30.00 Additional pack years: 0.00 Total pack years: 30.00 Types: Cigarettes Quit date: 02/22/1999 Years since quittin.4 Smokeless tobacco: Never Tobacco comments: Father smoked in childhood home. Vaping Use Vaping Use: Never used Substance Use Topics Alcohol use: Yes Alcohol/week: 4.0 standard drinks of alcohol Types: 4 Glasses of Wine (5oz) per week Comment: With dinner. Drug use: No EXAM: BP 124/82 Pulse 84 Resp 16 PHYSICAL EXAM: General Appearance: Well appearing, alert, in no acute distress, well-hydrated, well nourished.. Skin: Skin color, texture, turgor normal, no suspicious rashes or lesions. Head: Normocephalic, no masses, lesions, tenderness or abnormalities. Eyes: Anicteric sclera. Pupils are equally round and reactive to light. Extraocular movements are intact. . Lungs: Lungs clear to auscultation. No wheezing, rhonchi, rales.. Heart: RRR without murmur, gallop, or rubs. No ectopy. Abdomen: Abdomen soft. + tenderness across the lower abdomen/suprapubic area. No rebound. Mild involuntary guarding. Bowel sounds normal. No masses, organomegaly. Neurologic: Gait normal. ASSESSMENT/PLAN: 1. Pelvic pain - ICD9: [id number], ICD10: R10.2 (primary diagnosis) - Work up with CT Abdomen/Pelvis - URINE CULTURE - CT ABD/PEL WO IVCON - ENTERIC CONTRAST (RADIOLOGY PROCEDURE) 83 yo with pmh of CLL and breast cancer with 1 month hx of abdominal/pelvic pain. Urine dip negative. Will send for culture. Will get imaging of abdomen/pelvis to r/o other pathology. 2. UTI symptoms - ICD9: 788.99, ICD10: R39.9 - UA DIP, URINE (POC) Discussed treatment plan and patient voices understanding. Patient's questions answered appropriately. Medications and potential side effects were discussed and patient voices understanding. Return to the office as scheduled or as needed for worsening/no improvement. Morelia Hewitt APRN.MARKER MACHINE documented in this encounterBarney [facility]06-11-2024 Telephone encounter Note * Telephone Encounter - Zoey Lorenzo LPN - 08/03/2023 4:48 PM EDT Pt's daughter Johanna requested letter be sent through . Zoey Lorenzo LPN [facility]06-11-2024 Miscellaneous Notes* Telephone Encounter - Zoey Lorenzo LPN - 08/03/2023 4:48 PM EDT Pt's daughter Johanna requested letter be sent through . Zoey Lorenzo LPN documented in this encounterBarney Children'[facility]06-11-2024 Telephone encounter Note * Telephone Encounter - Olinda Knight MA - 08/03/2023 1:47 PM EDT Placed call to Johanna. Left message for return call. Mail or fax letter? Olinda Knight MA [facility]06-11-2024 Miscellaneous Notes* Telephone Encounter - Olinda Knight MA - 08/03/2023 1:47 PM EDT Placed call to Johanna. Left message for return call. Mail or fax letter? Olinda Knight MA * Telephone Encounter - Donnell Dooley MD - 08/03/2023 12:09 PM EDT See printed letter. Also wrote husbands documented in this encounterBarney [facility]06-11-2024 Telephone encounter Note * Telephone Encounter - Alejandrina Cooper RN - 08/03/2023 1:05 PM EDT Patient call in for pelvic pain with urination frequency and burning. Nurse Triage assessment completed with protocol recommending for disposition of See PCP in 24 hours. Patient scheduled with [facility] for tomorrow morning at 9:00 am. Care advice reviewed with patient, patient stated understanding. Patient advised to contact office or seek evaluation in urgent care or ER if symptoms persist or gets worse. Reason for Disposition [1] MILD (e.g., does not interfere with normal activities) pelvic pain AND [2] pain comes and goes (cramps) AND [3] present > 48 hours Answer Assessment - Initial Assessment Questions 1. LOCATION: Patient's Pain is in Pelvic Region 2. RADIATION: Pain in in Groin area 3. ONSET: X 1 week 4. SUDDEN: Gradual 5. PATTERN Pain has been off and on; more constant now 6. SEVERITY: Able to do normal activities with pain 7. RECURRENT SYMPTOM: Has had before; Has been diagnosed with UTI previously 8. CAUSE: Unsure 9. RELIEVING/AGGRAVATING FACTORS: Denies 10. OTHER SYMPTOMS: Urinary frequency; Burning with Urination Protocols used: Pelvic Pain - [id number] [facility]06-11-2024 Miscellaneous Notes* Telephone Encounter - Alejandrina Cooper RN - 08/03/2023 1:05 PM EDT Patient call in for pelvic pain with urination frequency and burning. Nurse Triage assessment completed with protocol recommending for disposition of See PCP in 24 hours. Patient scheduled with [facility] for tomorrow morning at 9:00 am. Care advice reviewed with patient, patient stated understanding. Patient advised to contact office or seek evaluation in urgent care or ER if symptoms persist or gets worse. Reason for Disposition [1] MILD (e.g., does not interfere with normal activities) pelvic pain AND [2] pain comes and goes (cramps) AND [3] present > 48 hours Answer Assessment - Initial Assessment Questions 1. LOCATION: Patient's Pain is in Pelvic Region 2. RADIATION: Pain in in Groin area 3. ONSET: X 1 week 4. SUDDEN: Gradual 5. PATTERN Pain has been off and on; more constant now 6. SEVERITY: Able to do normal activities with pain 7. RECURRENT SYMPTOM: Has had before; Has been diagnosed with UTI previously 8. CAUSE: Unsure 9. RELIEVING/AGGRAVATING FACTORS: Denies 10. OTHER SYMPTOMS: Urinary frequency; Burning with Urination Protocols used: Pelvic Pain - [id number] documented in this encounterBarney Children'S [facility] Center06-11-2024 Telephone encounter Note * Telephone Encounter - Donnell Dooley MD - 08/03/2023 12:09 PM EDT See printed letter. Also wrote husbands [facility]05-23-[facility] Telephone encounter Note* Telephone Encounter - Amber Griffith APRN.CNS - 07/15/2023 5:10 PM EDT [facility] report of urine culture. There are 3 organisms all colonized. Contaminated urine. Treating bacteria is not appropriate. It does not appear that she has a urinarytract infection. [facility]05-23-2024 Miscellaneous Notes* Telephone Encounter - Amber Griffith APRN.CNS - 07/15/2023 5:10 PM EDT [facility] report of urine culture. There are 3 organisms all colonized. Contaminated urine. Treating bacteria is not appropriate. It does not appear that she has a urinarytract infection. documented in this encounterBarney Children'S [facility] Center05-06-2024 History of Present illness Narrative* Donnell Dooley MD - 06/28/2023 10:35 AM EDT Patient presents with: 6 Month Exam HPI: Patient presents today for office visit for follow up. Has been seeing Yvonne for venous stasis ulcer. Is doing much better. Wound care following at facility. Is now almost healed. Has a very small scab in the area. Saw Dr Triana recently. Sees Dr Antunez in a month. Still sees Dr Mendosa for meniere's. Had recent dizziness. Uses meclizine prn. Has not been back to see cardiology. Last echo showed 1-2 + TR. They prefer we wait to repeat an echo. No chest pain. Breathing is stable. No current edema. No palpitations. No falls. Last MRI was 2021 for her meningioma. Will consider repeat in one year. Still using her oxygen at night. Memory is about the same. Some short term memory issues. Physically feels well. Appetite is ok. Following with Dr Shields Note was copied and pasted, without alteration from last check up with me on 12/23/22. Has not seen Dr. Haq. Memory is the same. Not any worse. She writes a lot of things down to help her remember. Had last mri in 2021. PULM: Still seeing Dr. Antunez with [facility] Breathing is stable Using oxygen at night Not using rescue inhaler often Needs follow up with heme onc. Seeing Dr. Nowak for pain management. Gets steroids shots. Had toe amputation via Dr. Helms for hammer toe. Had one fall but was mechanical. No injuries. Will hold on further bone density testing due to age. Cardiology followed her remotely for her valves. Latest Ref Rng 01/27/2023 WBC 3.70 - 11.00 k/uL 11.73 (H) RBC 3.90 - 5.20 m/uL 4.44 Hemoglobin 11.5 - 15.5 g/dL 13.2 Hematocrit 36.0 - 46.0 % 40.3 MCV 80.0 - 100.0 fL 90.8 MCH 26.0 - 34.0 pg 29.7 MCHC 30.5 - 36.0 g/dL 32.8 RDW-CV 11.5 - 15.0 % 14.6 Platelet Count 150 - 400 k/uL 157 MPV 9.0 - 12.7 fL 11.9 Neut% % 59.1 Abs Neut (ANC) 1.45 - 7.50 k/uL 6.93 Lymph% % 31.4 Abs Lymph 1.00 - 4.00 k/uL 3.68 Ravalli% % 5.8 Abs Ravalli <0.87 k/uL 0.68 Eosin% % 2.7 Abs Eosin <0.46 k/uL 0.32 Baso% % 0.7 Abs Baso <0.11 k/uL 0.08 Immature Gran % % 0.3 IMMATURE GRANS (ABS) <0.10 k/uL 0.04 NRBC /100 WBC 0.0 Absolute nRBC <0.01 k/uL <0.01 DTYPE Auto Protein, Total 6.3 - 8.0 g/dL 6.1 (L) Albumin 3.9 - 4.9 g/dL 4.4 Calcium 8.5 - 10.2 mg/dL 9.6 Bilirubin, Total 0.2 - 1.3 mg/dL 0.4 Alkaline Phosphatase 34 - 123 U/L 100 AST 13 - 35 U/L 18 ALT 7 - 38 U/L 8 Glucose 74 - 99 mg/dL 88 BUN 7 - 21 mg/dL 27 (H) Creatinine 0.58 - 0.96 mg/dL 0.77 Sodium 136 - 144 mmol/L 144 Potassium 3.7 - 5.1 mmol/L 3.6 (L) Chloride 97 - 105 mmol/L 105 CO2 22 - 30 mmol/L 31 (H) Anion Gap 9 - 18 mmol/L 8 (L) eGFR >=60 mL/min/1.73m 78 LD 135 - 214 U/L 242 (H) Legend: (H) High (L) Low MEDICATIONS: Current Outpatient Medications Medication Sig aspirin, enteric coated (ASPIRIN, ENTERIC COATED) 81 mg EC tablet Take 81 mg by mouth two times a day. fluticasone propion-salmeterol 232-14 mcg/actuation rivastigmine tartrate (EXELON) 1.5 mg capsule Take 1 capsule by mouth twice daily. triamterene-hydroCHLOROthiazide (DYAZIDE) 37.5-25 mg per capsule Take 1 capsule by mouth once daily. meclizine (ANTIVERT) 25 mg tab Take 25 mg by mouth as needed. VENTOLIN HFA 90 mcg/actuation inhaler Inhale 2 Puffs as instructed every 6 hours as needed for Wheezing/Shortness of Breath. tiotropium (SPIRIVA WITH HANDIHALER) 18 mcg inhalation capsule INHALE THE CONTENTS OF ONE CAPSULE VIA HANDIHALER ONCE DAILY Hydrocolloid Dressing (DUODERM CGF BORDER DRESSING) 4 X 4 bndg Apply 1 Each to affected area every 36 hours. meloxicam (MOBIC) 7.5 mg tablet Take 7.5 mg by mouth once daily. lidocaine (LIDODERM) 5 % Apply 1 Patch as directed every 24 hours. ACETAMINOPHEN ORAL Take by mouth as needed. calcium carbonate (TUMS ORAL) Take 1 tablet by mouth at bedtime as needed. nystatin (MYCOSTATIN) 100,000 unit/mL suspension three times daily. Cholecalciferol, Vitamin D3, 25 mcg (1,000 unit) cap Take 1,000 Units by mouth once daily. OXYGEN, HOME THERAPY, Inhale 3 L/min as instructed as directed. Zinc 50 mg tab Take 50 mg by mouth once daily. ipratropium-albuterol (DUONEB) 0.5 mg-3 mg(2.5 mg base)/3 mL nebu Inhale 3 mL as instructed every 6hours as needed (wheezing/shortness of breath). CALCIUM ORAL Take 1 tablet by mouth once daily. MAGNESIUM ORAL Take 1 tablet by mouth once daily. No current facility-administered medications for this visit. ALLERGIES: ALLERGIES Allergen Reactions Augmentin [Amoxicil* Vomiting Codeine GI Upset, Vomiting Shellfish Containin* Swelling, Anaphylaxis, Shortness of Breath, Other: See Comments, Hives No serious trouble with recent re-introduction of shellfish into diet. Bacitracin Itching Latex Rash Freeman Swelling PAST MEDICAL HISTORY Diagnosis Date Breast cancer (HCC) Left mastectomy. Right mastectomy. Bilateral reconstructions. No chemo/XRT. Cervical cancer (HCC) Remote. SOHEILA/BSO. No chemo or XRT. COPD (chronic obstructive pulmonary disease) (HCC) Gastroenteritis History of ileus Meniere's disease [facility]. Meningioma (HCC) Mitral valve regurgitation Non Hodgkin's lymphoma (HCC) About 14 years ago. No XRT, chemotherapy. Watchful waiting. Osteoporosis PAST SURGICAL HISTORY Procedure Laterality Date BREAST RECONSTRUCTION CATARACT EXTRACTION HX Bilateral 2011 CATARACT SURGERY, COMPLEX COLONOSCOPY W/BIOPSY SINGLE/MULTIPLE 10/12/2016 D&C DIAG &/OR THERAP, NOT OB EGD TRANSORAL BIOPSY SINGLE/MULTIPLE 10/12/2016 EGD W/O BRSH SPEC VARICIES INJ N/A HEMORRHOIDECTOMY MASTECTOMY HX Bilateral 1982 PAST SURGICAL HISTORY OF Bronchial artery embolization, left lung PAST SURGICAL HISTORY OF 2002 Lymph node removal on left arm SLING OPER STRES INCONTINENCE TOT ABDOMINL HYSTERECTOMY 1985 FAMILY HISTORY Problem Relation Age of Onset Alzheimer's Disease Mother in her 80s. Aneurysm Father AAA at age 61. other (Chronic bronchitis.) Father other (Other) Brother Parkinson's vs [place]'s. age 61. other (Other) Other Meningioma: multiple cousins Social History Tobacco Use Smoking status: Former Packs/day: 1.00 Years: 30.00 Additional pack years: 0.00 Total pack years: 30.00 Types: Cigarettes Quit date: 02/22/1999 Years since quittin.3 Smokeless tobacco: Never Tobacco comments: Father smoked in childhood home. Vaping Use Vaping Use: Never used Substance Use Topics Alcohol use: Yes Alcohol/week: 4.0 standard drinks of alcohol Types: 4 Glasses of Wine (5oz) per week Comment: With dinner. Drug use: No Reviewed current medications, allergies, past medical history, surgical history, family history andsocial history today. REVIEW OF SYSTEMS Weight is down a little but near her baseline. No gi or gu issues. All other reviewed and negative other than HPI. HEALTH MAINTENANCE: Reviewed health maintenance issues today and recommended the following in detail. Bone Density Screening due on 07/03/2022 Advance Directive Discussion due on 02/22/2023 Behavioral Health Screening Never done Covid-19 Vaccine( season) due on 03/02/2023 VITALS: BP 122/72 Pulse 64 Wt 42.2 kg (93 lb) SpO2 99% BMI 18.26 kg/m Last 4 Encounter Wt Readings: Date: Wt: 06/28/2023 42.2 kg (93 lb) 05/18/2023 44.7 kg (98 lb 9.6 oz) 05/04/2023 43.1 kg (95 lb) 04/05/2023 42.6 kg (94 lb) PHYSICAL EXAMINATION: General appearance: Well appearing, alert, in no acute distress, well-hydrated, well nourished. Skin: ulcer is much better Head: Normocephalic, no masses, lesions, tenderness or abnormalities Lungs: Lungs clear to auscultation. No wheezing, rhonchi, rales Heart: RRR without murmur, gallop, or rubs. No ectopy Abdomen: Normal abdominal exam, Abdomen soft, non-tender. Bowel sounds normal. No masses, organomegaly Extremities: No deformities, edema, skin discoloration, clubbing or cyanosis. Good capillary refill. ASSESSMENT/PLAN: 1. Mixed hyperlipidemia - ICD9: 272.2, ICD10: E78.2 (primary diagnosis) - will follow up. 2. VHD (valvular heart disease) - ICD9: 424.90, ICD10: I38 - consider an echo when we see her next. 3. Pulmonary emphysema, unspecified emphysema type (HCC) - ICD9: 492.8, ICD10: J43.9 - stable. Continue meds. 4. Chronic respiratory failure with hypoxia (HCC) - ICD9: 518.83, 799.02, ICD10: J96.11 - doing well. 5. Meniere's disease of both ears - ICD9: 386.00, ICD10: H81.03 - follow. Per ent 6. Small B-cell lymphoma, unspecified body region (HCC) - ICD9: 200.80, ICD10: C83.00 - per heme onc 7. History of breast cancer - ICD9: V10.3, ICD10: Z85.3 - doing well. Hx of bilateral mastectomy 8. Personal history of CLL (chronic lymphocytic leukemia) - ICD9: V10.61, ICD10: Z85.6 - per heme onc 9. Meningioma (HCC) - ICD9: 225.2, ICD10: D32.9 - consider mri in one year. 10. Mild cognitive impairment - ICD9: 331.83, ICD10: G31.84 - remains stable. Donnell Dooley MD documented in this encounterBarney [facility]03-26-2024 Miscellaneous Notes* Telephone Encounter - An Barker MA - 05/18/2023 1:46 PM EDT See other telephone encounter An Barker MA May 18, 2023 1:47 PM * Telephone Encounter - Amber Griffith APRN.FERRYBOAT HELPER - 05/18/2023 12:51 PM EDT Images from the original note were not included. Robyn Wound Nurse from [facility] calls and states that she just received the office note visit from today. Robyn states that she does not think that duoderm is working for patient's wound. It is keepingthe wound too moist. Roybn is still recommending a Gricel collagen type dressing, top with alginate (an absorbant gauze) and change daily. Robyn did receive order for this on 05/14/2023 however office visit not does not match this. Please review and advise, Alejandrina Cooper RN Note Robyn Wound Nurse from [facility] [phone] Alejandrina Cooper, RN documented in this encounterBarney Children'S [facility]03-26-2024 Nurse Note* An Barker MA - 05/18/2023 1:25 PM EDT Robyn,Wound Nurse from [facility] called after visit was complete. and states that she does not think that duoderm is working for patient's wound. It is keeping the wound too moist. Robyn is recommendinga Gricel collagen type dressing, topped with alginate, changed daily. Provider agreed with plan. An Barker MA May 18, 2023 1:46 PM documented in this encounterBarney Children'S [facility] Center03-26-2024 Miscellaneous Notes* Telephone Encounter - An Barker MA - 05/18/2023 1:22 PM EDT Spoke with Robyn Wound nurse, and advised ok to continue prism collagen type dressing, topped with alginate, changed daily. * Telephone Encounter - Amber Griffith APRN.CNS - 05/18/2023 12:48 PM EDT Please let [facility] care facility that it is fine for them to dress daily with wound nurse's recommendation. documented in this encounterBarney Children'S Medical Center03-26-2024 Instructions* Patient Instructions* Amber Griffith APRN.CNS - 05/18/2023 11:39 AM EDT 1) May change Duoderm every 3-5 days and if soiled 2) Cleanse with normal saline and reapply 3) More supplies sent to pharmacy of record 4) Follow up with Dr. Dooley 06/27 for routine care and wound check documented in this encounterBarney Children'S [facility] Center03-26-2024 History of Present illness Narrative* Amber Griffith APRN.CNS - 05/18/2023 11:29 AM EDT This is a 82 year old female who presents today with: Patient presents with: Recheck: Left lower leg wound check, HISTORY OF PRESENT ILLNESS: Madison Lofton is a 82 year old female. Patient presents with: Recheck: Left lower leg wound check, Left lower medial leg lesion is covered by duoderm. Some granulated tissue around all borders. Increasing protein. No fever or chills., Ankle 1+ pedal edema. Some discomfort when open to the air. Stings. PAST MEDICAL HISTORY: PAST MEDICAL HISTORY Diagnosis Date Breast cancer (HCC) Left mastectomy. Right mastectomy. Bilateral reconstructions. No chemo/XRT. Cervical cancer (HCC) Remote. SOHEILA/BSO. No chemo or XRT. COPD (chronic obstructive pulmonary disease) (HCC) Gastroenteritis History of ileus Meniere's disease [facility]. Meningioma (HCC) Mitral valve regurgitation Non Hodgkin's lymphoma (HCC) About 14 years ago. No XRT, chemotherapy. Watchful waiting. Osteoporosis PAST SURGICAL HISTORY Procedure Laterality Date BREAST RECONSTRUCTION CATARACT EXTRACTION HX Bilateral 2011 CATARACT SURGERY, COMPLEX COLONOSCOPY W/BIOPSY SINGLE/MULTIPLE 10/12/2016 D&C DIAG &/OR THERAP, NOT OB EGD TRANSORAL BIOPSY SINGLE/MULTIPLE 10/12/2016 EGD W/O BRSH SPEC VARICIES INJ N/A HEMORRHOIDECTOMY MASTECTOMY HX Bilateral 1982 PAST SURGICAL HISTORY OF Bronchial artery embolization, left lung PAST SURGICAL HISTORY OF 2003 Lymph node removal on left arm SLING OPER STRES INCONTINENCE TOT ABDOMINL HYSTERECTOMY 1984 ALLERGIES Augmentin [Amoxicillin-Pot Clavulanate], Codeine, Shellfish Containing Products, Bacitracin, Latex, and Freeman MEDICATIONS Current Outpatient Medications Medication Sig fluticasone propion-salmeterol 232-14 mcg/actuation meloxicam (MOBIC) 7.5 mg tablet Take 7.5 mg by mouth once daily. lidocaine (LIDODERM) 5 % Apply 1 Patch as directed every 24 hours. ACETAMINOPHEN ORAL Take by mouth as needed. meclizine (ANTIVERT) 25 mg tab Take 25 mg by mouth as needed. calcium carbonate (TUMS ORAL) Take 1 tablet by mouth at bedtime as needed. nystatin (MYCOSTATIN) 100,000 unit/mL suspension three times daily. Cholecalciferol, Vitamin D3, 25 mcg (1,000 unit) cap Take 1,000 Units by mouth once daily. VENTOLIN HFA 90 mcg/actuation inhaler Inhale 2 Puffs as instructed every 6 hours as needed for Wheezing/Shortness of Breath. OXYGEN, HOME THERAPY, Inhale 3 L/min as instructed as directed. tiotropium (SPIRIVA WITH HANDIHALER) 18 mcg inhalation capsule INHALE THE CONTENTS OF ONE CAPSULE VIA HANDIHALER ONCE DAILY Zinc 50 mg tab Take 50 mg by mouth once daily. ipratropium-albuterol (DUONEB) 0.5 mg-3 mg(2.5 mg base)/3 mL nebu Inhale 3 mL as instructed every 6hours as needed (wheezing/shortness of breath). CALCIUM ORAL Take 1 tablet by mouth once daily. MAGNESIUM ORAL Take 1 tablet by mouth once daily. rivastigmine tartrate (EXELON) 1.5 mg capsule Take 1 capsule by mouth twice daily. triamterene-hydroCHLOROthiazide (DYAZIDE) 37.5-25 mg per capsule Take 1 capsule by mouth once daily. No current facility-administered medications for this visit. FAMILY HISTORY Problem Relation Age of Onset Alzheimer's Disease Mother in her 80s. Aneurysm Father AAA at age 61. other (Chronic bronchitis.) Father other (Other) Brother Parkinson's vs [place]'s. age 61. other (Other) Other Meningioma: multiple cousins Social History Tobacco Use Smoking status: Former Packs/day: 1.00 Years: 30.00 Additional pack years: 0.00 Total pack years: 30.00 Types: Cigarettes Quit date: 02/22/1999 Years since quittin.2 Smokeless tobacco: Never Tobacco comments: Father smoked in childhood home. Vaping Use Vaping Use: Never used Substance Use Topics Alcohol use: Yes Alcohol/week: 4.0 standard drinks of alcohol Types: 4 Glasses of Wine (5oz) per week Comment: With dinner. Drug use: No EXAM: BP 112/80 (BP Site: Right Arm) Pulse 70 Wt 44.7 kg (98 lb 9.6 oz) SpO2 99% BMI 19.36 kg/m PHYSICAL EXAM: General Appearance: Well appearing, alert, in no acute distress, well-hydrated, well nourished.. Skin: Skin color, texture, turgor normal, no suspicious rashes or lesions, some lower ext. Hair growth. Lesion is clean, pink, 1.3 cm X 2.6cm. Granulated tissue.. Head: Normocephalic, no masses, lesions, tenderness or abnormalities. Musculoskeletal: No joint swelling, deformity, or tenderness. LABS: ASSESSMENT/PLAN: 1. Venous stasis ulcer of other part of lower leg limited to breakdown of skin, unspecified laterality, unspecified whether varicose veins present (HCC) - ICD9: 454.0, ICD10: I83.008, L97.801 Improving. Wound care nurse checking at facility. - Douderm removed. Cleansed with normal saline. - Duoderm quartered and reapplied. More Douderm ordered. - Follow up with Dr. Dooley early June Discussed treatment plan and patient voices understanding. Patient's questions answered appropriately. Medications and potential side effects were discussed and patient voices understanding. Return to the office as scheduled or as needed for worsening/no improvement. Amber Griffith APRN.CNS The patient indicates understanding of these issues and agrees with the plan. documented in this encounterBarney Children'S [facility] Center03-22-2024 Miscellaneous Notes* Telephone Encounter - Olinda Knight MA - 05/14/2023 2:37 PM EDT Amber Griffith APRN.CNS Clinical Nurse Specialist Signed 1:50 PM Addend Copy Please let visiting nurse know that they may use their dressing of preference. * Telephone Encounter - Olinda Knight MA - 05/14/2023 2:34 PM EDT Robyn informed per Yvonne's message in other TC to use their preferred dressing. Robyn verbalized understanding. Olinda Knight MA * Telephone Encounter - Remberto Bob RN - 05/14/2023 12:47 PM EDT Robyn, Wound Care Nurse @ [facility], reports pcp provider ordered duoderm for patient's LLL wound. Reports it is not working, the drainage is just sitting there, the wound is macerated, and larger. Robyn is recommending using a Gricel collagen type dressing, top with alginate (an absorbant gauze) and change daily. Asking for verbal order to use the recommended treatment. Please call Robyn with verbal order: [phone] Robyn will be there until 3 or 4 today. documented in this encounterBarney Children'S [facility] Center03-22-2024 Miscellaneous Notes* Telephone Encounter - Olinda Knight MA - 05/14/2023 2:36 PM EDT See other TC. Olinda Knight MA * Telephone Encounter - Amber Griffith APRN.CNS - 05/14/2023 1:50 PM EDT Please let visiting nurse know that they may use their dressing of preference. documented in this encounterBarney Children'S Medical Center03-12-2024 Instructions* Patient Instructions* Amber Griffith APRN.CNS - 05/04/2023 2:54 PM EDT 1) Duoderm every 3 days and as needed 2) Increase protein in diet 3) Increase vitamin C in your diet 4) Keep left leg elevated 5) Follow up in 2 weeks documented in this encounterBarney Children'S [facility] Center03-12-2024 History of Present illness Narrative* Amber Griffith APRN.CNS - 05/04/2023 2:42 PM EDT This is a 82 year old female who presents today with: Patient presents with: Edema: Swelling and pain in left ankle. Has open sore that is draining as well. HISTORY OF PRESENT ILLNESS: Madison Lofton is a 82 year old female. Patient presents with: Edema: Swelling and pain in left ankle. Has open sore that is draining as well. Took off old dressing and it has some yellow drainage. Fallen a couple months ago. Had scab there. Thast turned to a blood blister. Foot at last appt. Was red, swollen. Took doxycycline to treat cellulitis. Lives in [facility]. Pain is improved. Had throbbing, achy. No fever or chills. Stomach is not upset. No diarrhea. Bowels are loose from facility. PAST MEDICAL HISTORY: PAST MEDICAL HISTORY Diagnosis Date Breast cancer (HCC) Left mastectomy. Right mastectomy. Bilateral reconstructions. No chemo/XRT. Cervical cancer (HCC) Remote. SOHEILA/BSO. No chemo or XRT. COPD (chronic obstructive pulmonary disease) (HCC) Gastroenteritis History of ileus Meniere's disease [facility]. Meningioma (HCC) Mitral valve regurgitation Non Hodgkin's lymphoma (HCC) About 14 years ago. No XRT, chemotherapy. Watchful waiting. Osteoporosis PAST SURGICAL HISTORY Procedure Laterality Date BREAST RECONSTRUCTION CATARACT EXTRACTION HX Bilateral 2011 CATARACT SURGERY, COMPLEX COLONOSCOPY W/BIOPSY SINGLE/MULTIPLE 10/12/2016 D&C DIAG &/OR THERAP, NOT OB EGD TRANSORAL BIOPSY SINGLE/MULTIPLE 10/12/2016 EGD W/O BRSH SPEC VARICIES INJ N/A HEMORRHOIDECTOMY MASTECTOMY HX Bilateral 1982 PAST SURGICAL HISTORY OF Bronchial artery embolization, left lung PAST SURGICAL HISTORY OF 2002 Lymph node removal on left arm SLING OPER STRES INCONTINENCE TOT ABDOMINL HYSTERECTOMY 1984 ALLERGIES Augmentin [Amoxicillin-Pot Clavulanate], Codeine, Shellfish Containing Products, Bacitracin, Latex, and Freeman MEDICATIONS Current Outpatient Medications Medication Sig fluticasone propion-salmeterol 232-14 mcg/actuation meloxicam (MOBIC) 7.5 mg tablet Take 7.5 mg by mouth once daily. lidocaine (LIDODERM) 5 % Apply 1 Patch as directed every 24 hours. ACETAMINOPHEN ORAL Take by mouth as needed. meclizine (ANTIVERT) 25 mg tab Take 25 mg by mouth as needed. calcium carbonate (TUMS ORAL) Take 1 tablet by mouth at bedtime as needed. nystatin (MYCOSTATIN) 100,000 unit/mL suspension three times daily. Cholecalciferol, Vitamin D3, 25 mcg (1,000 unit) cap Take 1,000 Units by mouth once daily. VENTOLIN HFA 90 mcg/actuation inhaler Inhale 2 Puffs as instructed every 6 hours as needed for Wheezing/Shortness of Breath. OXYGEN, HOME THERAPY, Inhale 3 L/min as instructed as directed. tiotropium (SPIRIVA WITH HANDIHALER) 18 mcg inhalation capsule INHALE THE CONTENTS OF ONE CAPSULE VIA HANDIHALER ONCE DAILY Zinc 50 mg tab Take 50 mg by mouth once daily. ipratropium-albuterol (DUONEB) 0.5 mg-3 mg(2.5 mg base)/3 mL nebu Inhale 3 mL as instructed every 6hours as needed (wheezing/shortness of breath). CALCIUM ORAL Take 1 tablet by mouth once daily. MAGNESIUM ORAL Take 1 tablet by mouth once daily. rivastigmine tartrate (EXELON) 1.5 mg capsule Take 1 capsule by mouth twice daily. triamterene-hydroCHLOROthiazide (DYAZIDE) 37.5-25 mg per capsule Take 1 capsule by mouth once daily. No current facility-administered medications for this visit. FAMILY HISTORY Problem Relation Age of Onset Alzheimer's Disease Mother in her 80s. Aneurysm Father AAA at age 61. other (Chronic bronchitis.) Father other (Other) Brother Parkinson's vs [place]'s. age 61. other (Other) Other Meningioma: multiple cousins Social History Tobacco Use Smoking status: Former Packs/day: 1.00 Years: 30.00 Additional pack years: 0.00 Total pack years: 30.00 Types: Cigarettes Quit date: 02/22/1999 Years since quittin.2 Smokeless tobacco: Never Tobacco comments: Father smoked in childhood home. Vaping Use Vaping Use: Never used Substance Use Topics Alcohol use: Yes Alcohol/week: 4.0 standard drinks of alcohol Types: 4 Glasses of Wine (5oz) per week Comment: With dinner. Drug use: No EXAM: BP 102/64 Pulse 71 Temp 37.1 C (98.8 F) (Left Tympanic) Resp 14 Wt 43.1 kg (95 lb) SpO2 95% BMI 18.65 kg/m PHYSICAL EXAM: General Appearance: Well appearing, alert, in no acute distress, well-hydrated, well nourished.. Skin: Left inner rahman with nickel sized ulcer. Clean. Borders granulating pink. Head: Normocephalic, no masses, lesions, tenderness or abnormalities. Lungs: Lungs clear to auscultation. No wheezing, rhonchi, rales. Diminished throughout. Heart: RRR DANIELLA @ sternal border, gallop, or rubs. No ectopy, 1+ pedal edema left only. Extremities: No deformities, edema, skin discoloration, clubbing or cyanosis. Good capillary refill. , Pulses: 2+francisco. D.P.. ASSESSMENT/PLAN: 1. Venous stasis ulcer of left lower leg with edema of left lower leg (HCC) (HCC) - ICD9: 454.8, 454.0, ICD10: I83.029, I83.892, L97.929, R60.0 Healing - Use duoderm to wound q 3 days - Increase protein - Increase vitamin C - Elevate left leg when possible - Follow up in 2 weeks Discussed treatment plan and patient voices understanding. Patient's questions answered appropriately. Medications and potential side effects were discussed and patient voices understanding. Return to the office as scheduled or as needed for worsening/no improvement. Amber Griffith APRN.CNS The patient indicates understanding of these issues and agrees with the plan. documented in this encounterBarney Children'S [facility] Center02-12-2024 Instructions* Patient Instructions* Dallas Calabrese APRN.CNP - 04/05/2023 2:03 PM EST Complete the course of the doxycycline antibiotic. Place the non-adherent dressing (ok to cut it in half) over the blister/wound and wrap with the ACEbandage. No adhesive or tape over top-skin is too thin. Complete this dressing for 10 days-should be through 04/12. Please have nursing staff reassess and communicate update with my office. Continue to elevate as much as possible during this time as well. documented in this encounterBarney Children'S [facility] Center02-12-2024 History of Present illness Narrative* Dallas Calabrese APRN.CNP - 04/05/2023 1:44 PM EST Chief Complaint Patient presents with: Follow Up: Cellulitis left ankle HPI Madison Lofton is a 82 year old female who presents here today for Above Complaints. Per visit with myself 3 days ago on 04/02/2023: Chief Complaint Patient presents with: Blister: Blood filled blister and swelling of left ankle x 1 week HPI Madison Lofton is a 82 year old female who presents here today for Above Complaints.. Currently: Started with a bruise to left lower rahman about a week ago, no injury. About 2 days ago turned into a blood blister. Ankle red and throbbing, warm. Took some Tylenol which helped just a little bit. Has not been elevating. Denies fever. Shoe is tight. Past medical history, appointments, medications, allergies reviewed. Previous Medical History PAST MEDICAL HISTORY PAST MEDICAL HISTORY Diagnosis Date Breast cancer (HCC) Left mastectomy. Right mastectomy. Bilateral reconstructions. No chemo/XRT. Cervical cancer (HCC) Remote. SOHEILA/BSO. No chemo or XRT. COPD (chronic obstructive pulmonary disease) (HCC) Gastroenteritis History of ileus Meniere's disease [facility]. Meningioma (HCC) Mitral valve regurgitation Non Hodgkin's lymphoma (HCC) About 14 years ago. No XRT, chemotherapy. Watchful waiting. Osteoporosis Previous Surgical History PAST SURGICAL HISTORY PAST SURGICAL HISTORY Procedure Laterality Date BREAST RECONSTRUCTION CATARACT EXTRACTION HX Bilateral 2011 CATARACT SURGERY, COMPLEX COLONOSCOPY W/BIOPSY SINGLE/MULTIPLE 10/12/2016 D&C DIAG &/OR THERAP, NOT OB EGD TRANSORAL BIOPSY SINGLE/MULTIPLE 10/12/2016 EGD W/O BRSH SPEC VARICIES INJ N/A HEMORRHOIDECTOMY MASTECTOMY HX Bilateral 1982 PAST SURGICAL HISTORY OF Bronchial artery embolization, left lung PAST SURGICAL HISTORY OF 2002 Lymph node removal on left arm SLING OPER STRES INCONTINENCE TOT ABDOMINL HYSTERECTOMY 1984 Family History FAMILY HISTORY FAMILY HISTORY Problem Relation Age of Onset Alzheimer's Disease Mother in her 80s. Aneurysm Father AAA at age 61. other (Chronic bronchitis.) Father other (Other) Brother Parkinson's vs [place]'s. age 61. other (Other) Other Meningioma: multiple cousins Patient Allergies ALLERGIES ALLERGIES Allergen Reactions Augmentin [Amoxicil* Vomiting Codeine GI Upset, Vomiting Shellfish Containin* Swelling, Anaphylaxis, Shortness of Breath, Other: See Comments, Hives No serious trouble with recent re-introduction of shellfish into diet. Bacitracin Itching Latex Rash Freeman Swelling Current Medications Current Outpatient Medications on File Prior to Visit Medication Sig fluticasone propion-salmeterol 232-14 mcg/actuation meloxicam (MOBIC) 7.5 mg tablet Take 7.5 mg by mouth once daily. lidocaine (LIDODERM) 5 % Apply 1 Patch as directed every 24 hours. ACETAMINOPHEN ORAL Take by mouth as needed. rivastigmine tartrate (EXELON) 1.5 mg capsule Take 1 capsule by mouth twice daily. triamterene-hydroCHLOROthiazide (DYAZIDE) 37.5-25 mg per capsule Take 1 capsule by mouth once daily. meclizine (ANTIVERT) 25 mg tab Take 25 mg by mouth as needed. calcium carbonate (TUMS ORAL) Take 1 tablet by mouth at bedtime as needed. nystatin (MYCOSTATIN) 100,000 unit/mL suspension three times daily. Cholecalciferol, Vitamin D3, 25 mcg (1,000 unit) cap Take 1,000 Units by mouth once daily. VENTOLIN HFA 90 mcg/actuation inhaler Inhale 2 Puffs as instructed every 6 hours as needed for Wheezing/Shortness of Breath. OXYGEN, HOME THERAPY, Inhale 3 L/min as instructed as directed. tiotropium (SPIRIVA WITH HANDIHALER) 18 mcg inhalation capsule INHALE THE CONTENTS OF ONE CAPSULE VIA HANDIHALER ONCE DAILY Zinc 50 mg tab Take 50 mg by mouth once daily. ipratropium-albuterol (DUONEB) 0.5 mg-3 mg(2.5 mg base)/3 mL nebu Inhale 3 mL as instructed every 6hours as needed (wheezing/shortness of breath). CALCIUM ORAL Take 1 tablet by mouth once daily. MAGNESIUM ORAL Take 1 tablet by mouth once daily. No current facility-administered medications on file prior to visit. Social History SOCIAL HISTORY Social History Tobacco Use Smoking status: Former Packs/day: 1.00 Years: 30.00 Additional pack years: 0.00 Total pack years: 30.00 Types: Cigarettes Quit date: 02/22/1999 Years since quittin.1 Smokeless tobacco: Never Tobacco comments: Father smoked in childhood home. Vaping Use Vaping Use: Never used Substance Use Topics Alcohol use: Yes Alcohol/week: 4.0 standard drinks of alcohol Types: 4 Glasses of Wine (5oz) per week Comment: With dinner. Drug use: No Review of Symptoms REVIEW OF SYSTEMS See HPI, otherwise negative EXAM: BP 110/70 (BP Site: Left Arm, BP Position: Sitting, BP Cuff Size: Regular Adult) Pulse 69 Wt 44.5 kg (98 lb 3.2 oz) SpO2 96% BMI 19.28 kg/m General Appearance: Well appearing, alert, in no acute distress, well-hydrated, well nourished. andThin. Lungs: Lungs clear to auscultation. No wheezing, rhonchi, rales.. Heart: RRR without murmur, gallop, or rubs. No ectopy. Extremities: left ankle and lower leg with erythema, warmth, quarter-sized blood blister-is not draining, 2+ nonpitting edema. Psychiatric: pleasant, cooperative. Health Maintenance List Advance Directive Discussion due on 02/22/2023 Depression Assessment due on 02/22/2023 Covid-19 Vaccine( season) due on 03/02/2023 RSV Vaccine(1 - 1-dose 60+ series) due on 12/24/2023 Annual PCP Team Chronic Disease Visit due on 04/02/2024 Diabetes Screening due on 01/27/2026 Bone Density Screening Completed Spirometry Completed Influenza Vaccine Completed Shingrix Vaccine Completed Pneumococcal Vaccine: 65+ Completed HPV Vaccine Aged Out DTaP,Tdap,Td Vaccine Discontinued Colorectal Cancer Screening Discontinued Data reviewed Previous records office notes ASSESSMENT/PLAN: 1. Cellulitis of skin - ICD9: 682.9, ICD10: L03.90 (primary diagnosis) - Begin treatment with as ordered - No lymphangetic streaking, this was defined for patient to watch for and to seek medical care immediately if appears - Tricia wrap to LLE, elevated as much as possible, limit time in dependent position Follow up in the office in 3 days Ultrasound to r/o DVT - DOXYCYCLINE HYCLATE 100 MG TABLET - US LEG VEIN DVT UNL VAS LAB - US DVT LOWER LEFT 2. Left ankle swelling - ICD9: 719.07, ICD10: M25.472 - Begin treatment with as ordered - No lymphangetic streaking, this was defined for patient to watch for and to seek medical care immediately if appears - Tricia wrap to LLE, elevated as much as possible, limit time in dependent position Follow up in the office in 3 days Ultrasound to r/o DVT - DOXYCYCLINE HYCLATE 100 MG TABLET - US LEG VEIN DVT UNL VAS LAB - US DVT LOWER LEFT 3. Discoloration of skin of lower leg - ICD9: 709.00, ICD10: L81.9 - Begin treatment with as ordered - No lymphangetic streaking, this was defined for patient to watch for and to seek medical care immediately if appears - Tricia wrap to LLE, elevated as much as possible, limit time in dependent position Follow up in the office in 3 days Ultrasound to r/o DVT - DOXYCYCLINE HYCLATE 100 MG TABLET - US LEG VEIN DVT UNL VAS LAB - US DVT LOWER LEFT 4- Begin treatment with as ordered - No lymphangetic streaking, this was defined for patient to watch for and to seek medical care immediately if appears - Tricia wrap to LLE, elevated as much as possible, limit time in dependent position Follow up in the office in 3 days Ultrasound to r/o DVT - DOXYCYCLINE HYCLATE 100 MG TABLET - US LEG VEIN DVT UNL VAS LAB - US DVT LOWER LEFT 5. Blister of left lower extremity, initial encounter - ICD9: 916.2, ICD10: S80.822A - Begin treatment with as ordered - No lymphangetic streaking, this was defined for patient to watch for and to seek medical care immediately if appears - Tricia wrap to LLE, elevated as much as possible, limit time in dependent position Follow up in the office in 3 days Ultrasound to r/o DVT - DOXYCYCLINE HYCLATE 100 MG TABLET - US LEG VEIN DVT UNL VAS LAB - US DVT LOWER LEFT 6. Localized edema - ICD9: 782.3, ICD10: R60.0 - Begin treatment with as ordered - No lymphangetic streaking, this was defined for patient to watch for and to seek medical care immediately if appears - Tricia wrap to LLE, elevated as much as possible, limit time in dependent position Follow up in the office in 3 days Ultrasound to r/o DVT - US LEG VEIN DVT UNL VAS LAB - US DVT LOWER LEFT Dallas Calabrese, DRIER HELPER.MARKER MACHINE Currently: Ultrasound was negative for DVT. Has been wearing TRICIA bandage to LLE and elevating as much as possible. Blister is still present but has leaked a little bit of brownish fluid. Denies fever. Swelling and redness is significantly better. Is tolerating doxycycline well. Past medical history, appointments, medications, allergies reviewed. Previous Medical History PAST MEDICAL HISTORY Diagnosis Date Breast cancer (HCC) Left mastectomy. Right mastectomy. Bilateral reconstructions. No chemo/XRT. Cervical cancer (HCC) Remote. SOHEILA/BSO. No chemo or XRT. COPD (chronic obstructive pulmonary disease) (HCC) Gastroenteritis History of ileus Meniere's disease [facility]. Meningioma (HCC) Mitral valve regurgitation Non Hodgkin's lymphoma (HCC) About 14 years ago. No XRT, chemotherapy. Watchful waiting. Osteoporosis Previous Surgical History PAST SURGICAL HISTORY Procedure Laterality Date BREAST RECONSTRUCTION CATARACT EXTRACTION HX Bilateral 2011 CATARACT SURGERY, COMPLEX COLONOSCOPY W/BIOPSY SINGLE/MULTIPLE 10/12/2016 D&C DIAG &/OR THERAP, NOT OB EGD TRANSORAL BIOPSY SINGLE/MULTIPLE 10/12/2016 EGD W/O BRSH SPEC VARICIES INJ N/A HEMORRHOIDECTOMY MASTECTOMY HX Bilateral 1982 PAST SURGICAL HISTORY OF Bronchial artery embolization, left lung PAST SURGICAL HISTORY OF 2002 Lymph node removal on left arm SLING OPER STRES INCONTINENCE TOT ABDOMINL HYSTERECTOMY 1984 Family History FAMILY HISTORY Problem Relation Age of Onset Alzheimer's Disease Mother in her 80s. Aneurysm Father AAA at age 61. other (Chronic bronchitis.) Father other (Other) Brother Parkinson's vs [place]'s. age 61. other (Other) Other Meningioma: multiple cousins Patient Allergies ALLERGIES Allergen Reactions Augmentin [Amoxicil* Vomiting Codeine GI Upset, Vomiting Shellfish Containin* Swelling, Anaphylaxis, Shortness of Breath, Other: See Comments, Hives No serious trouble with recent re-introduction of shellfish into diet. Bacitracin Itching Latex Rash Freeman Swelling Current Medications Current Outpatient Medications on File Prior to Visit Medication Sig doxycycline (VIBRA-TABS) 100 mg tablet Take 1 tablet by mouth two times a day for 10 days. fluticasone propion-salmeterol 232-14 mcg/actuation meloxicam (MOBIC) 7.5 mg tablet Take 7.5 mg by mouth once daily. lidocaine (LIDODERM) 5 % Apply 1 Patch as directed every 24 hours. ACETAMINOPHEN ORAL Take by mouth as needed. meclizine (ANTIVERT) 25 mg tab Take 25 mg by mouth as needed. calcium carbonate (TUMS ORAL) Take 1 tablet by mouth at bedtime as needed. nystatin (MYCOSTATIN) 100,000 unit/mL suspension three times daily. Cholecalciferol, Vitamin D3, 25 mcg (1,000 unit) cap Take 1,000 Units by mouth once daily. VENTOLIN HFA 90 mcg/actuation inhaler Inhale 2 Puffs as instructed every 6 hours as needed for Wheezing/Shortness of Breath. OXYGEN, HOME THERAPY, Inhale 3 L/min as instructed as directed. tiotropium (SPIRIVA WITH HANDIHALER) 18 mcg inhalation capsule INHALE THE CONTENTS OF ONE CAPSULE VIA HANDIHALER ONCE DAILY Zinc 50 mg tab Take 50 mg by mouth once daily. ipratropium-albuterol (DUONEB) 0.5 mg-3 mg(2.5 mg base)/3 mL nebu Inhale 3 mL as instructed every 6hours as needed (wheezing/shortness of breath). CALCIUM ORAL Take 1 tablet by mouth once daily. MAGNESIUM ORAL Take 1 tablet by mouth once daily. rivastigmine tartrate (EXELON) 1.5 mg capsule Take 1 capsule by mouth twice daily. triamterene-hydroCHLOROthiazide (DYAZIDE) 37.5-25 mg per capsule Take 1 capsule by mouth once daily. No current facility-administered medications on file prior to visit. Social History Social History Tobacco Use Smoking status: Former Packs/day: 1.00 Years: 30.00 Additional pack years: 0.00 Total pack years: 30.00 Types: Cigarettes Quit date: 02/22/1999 Years since quittin.1 Smokeless tobacco: Never Tobacco comments: Father smoked in childhood home. Vaping Use Vaping Use: Never used Substance Use Topics Alcohol use: Yes Alcohol/week: 4.0 standard drinks of alcohol Types: 4 Glasses of Wine (5oz) per week Comment: With dinner. Drug use: No Review of Symptoms REVIEW OF SYSTEMS See HPI, otherwise negative EXAM: BP 118/78 (BP Site: Left Arm, BP Position: Sitting, BP Cuff Size: Regular Adult) Pulse 80 Resp 16 Wt 42.6 kg (94 lb) BMI 18.45 kg/m General Appearance: Well appearing, alert, in no acute distress, well-hydrated, well nourished. andThin. Skin: LLE-trace edema, mild erythema, nickel-sized blood blister-no drainage, no warmth Lungs: Lungs clear to auscultation. No wheezing, rhonchi, rales.. Heart: RRR without murmur, gallop, or rubs. No ectopy. Extremities:LLE-trace edema, mild erythema, nickel-sized blood blister-no drainage, no warmth Psychiatric: pleasant, cooperative. Health Maintenance List Advance Directive Discussion due on 02/22/2023 Depression Assessment due on 02/22/2023 Covid-19 Vaccine( season) due on 03/02/2023 RSV Vaccine(1 - 1-dose 60+ series) due on 12/24/2023 Annual PCP Team Chronic Disease Visit due on 04/02/2024 Diabetes Screening due on 01/27/2026 Bone Density Screening Completed Spirometry Completed Influenza Vaccine Completed Shingrix Vaccine Completed Pneumococcal Vaccine: 65+ Completed HPV Vaccine Aged Out DTaP,Tdap,Td Vaccine Discontinued Colorectal Cancer Screening Discontinued Data reviewed Previous records, office notes ASSESSMENT/PLAN: 1. Cellulitis of skin - ICD9: 682.9, ICD10: L03.90 (primary diagnosis) Significant improvement. Complete doxycycline course Non-adherent dressing to blister daily and prn Continue with TRICIA wrap at least until the end of the doxy course Continue with elevation 2. Left ankle swelling - ICD9: 719.07, ICD10: M25.472 Significant improvement. Complete doxycycline course Non-adherent dressing to blister daily and prn Continue with TRICIA wrap at least until the end of the doxy course Continue with elevation 3. Discoloration of skin of lower leg - ICD9: 709.00, ICD10: L81.9 Significant improvement. Complete doxycycline course Non-adherent dressing to blister daily and prn Continue with TRICIA wrap at least until the end of the doxy course Continue with elevation 4. Acute left ankle pain - ICD9: 719.47, ICD10: M25.572 Significant improvement. Complete doxycycline course Non-adherent dressing to blister daily and prn Continue with TRICIA wrap at least until the end of the doxy course Continue with elevation 5. Blister of left lower extremity, initial encounter - ICD9: 916.2, ICD10: S80.822A Significant improvement. Complete doxycycline course Non-adherent dressing to blister daily and prn Continue with TRICIA wrap at least until the end of the doxy course Continue with elevation Dallas Calabrese APRN.MARKER MACHINE documented in this encounterBarney [facility]24 NoteHNO ID: [id number] Author: IZAIAH ROSSI TECHNOLOGIST Service: ? Author Type: Technologist Type: Progress Notes Filed: 04/02/2023 16:25 Note Text: Radiology Service Progress Note PATIENT NAME: Madison Lofton DATE OF SERVICE: April 02, 2023 TIME: 4:25 PM PATIENT IDENTITY VERIFICATION COMPLETED USING TWO (2) IDENTIFIERS: Name and Date of confirmed by patient verbally. FALL SCREENING: Has the patient had 2 falls in the last year or 1 fall with injury or currently using an Ambulatory Assistive Device (Walker, Cane, Wheelchair, Crutches, etc.)? No PATIENT GENDER DATA: Female. status: : No status: NO. PATIENT RELEVANT IMPLANT DATA REVIEWED: Yes PATIENT PRESENTS WITH AN IMPLANTABLE OR ATTACHED RADIO FREQUENCY ENGINEER: No RADIOLOGY DEPARTMENT: Ultrasound PERIPHERAL IV DATA: Not applicable SIGNED BY: GILL ProctorOLOGIST April 02, 2023 4:25 [facility]02-09-2024 History of Present illness Narrative* Izaiah Rossi TECHNOLOGIST - 04/02/2023 4:00 PM EST Radiology Service Progress Note PATIENT NAME: Madison Lofton DATE OF SERVICE: April 02, 2023 TIME: 4:25 PM PATIENT IDENTITY VERIFICATION COMPLETED USING TWO (2) IDENTIFIERS: Name and Date of confirmedby patient verbally. FALL SCREENING: Has the patient had 2 falls in the last year or 1 fall with injury or currently using an Ambulatory Assistive Device (Walker, Cane, Wheelchair, Crutches, etc.)? No PATIENT GENDER DATA: Female. status: : No status: NO. PATIENT RELEVANT IMPLANT DATA REVIEWED: Yes PATIENT PRESENTS WITH AN IMPLANTABLE OR ATTACHED RADIO FREQUENCY ENGINEER: No RADIOLOGY DEPARTMENT: Ultrasound PERIPHERAL IV DATA: Not applicable SIGNED BY: TECHNOLOGIST Esthela April 02, 2023 4:25 PM documented in this encounterBarney [facility]02-09-2024 Miscellaneous Notes* Telephone Encounter - Patrizia Bradford - 04/02/2023 3:18 PM EST Faxed to [facility]IK[facility] Bradford * Telephone Encounter - Dallas Calabrese APRN.CNP - 04/02/2023 3:13 PM EST Can my order be printed? Or am I supposed to put in a whole new order? Dallas Calabrese APRN.CNP * Telephone Encounter - Remberto Bob RN - 04/02/2023 2:41 PM EST Maura- [facility]- reports daughter informed them Hospitality Director sent Rx to pharmacy for doxycycline. Maura asking provider to fax them an order so that they can put it into their system. documented in this encounterBarney Children'S [facility]02-09-2024 Instructions* Patient Instructions* Dallas Calabrese APRN.CNP - 04/02/2023 1:59 PM EST Take the doxycycline (antibiotic) twice daily with food. Elevate your left leg as much as possible. Limit time it is in a dependent position. Tricia wrap to your lower leg-not super tight but enough that is is supportive. Don't wear a tight shoe on this leg for now. Don't specifically break the blister, but ok if it breaks on its own. We'll follow up in the office on Wednesday 04/05 at 1:20. documented in this encounterBarney Children'[facility]02-09-2024 History of Present illness Narrative* Dallas Calabrese APRN.REYNALDO - 04/02/2023 1:36 PM EST Chief Complaint Patient presents with: Blister: Blood filled blister and swelling of left ankle x 1 week HPI Madison Lofton is a 82 year old female who presents here today for Above Complaints.. Currently: Started with a bruise to left lower rahman about a week ago, no injury. About 2 days ago turned into a blood blister. Ankle red and throbbing, warm. Took some Tylenol which helped just a little bit. Has not been elevating. Denies fever. Shoe is tight. Past medical history, appointments, medications, allergies reviewed. Previous Medical History PAST MEDICAL HISTORY Diagnosis Date Breast cancer (HCC) Left mastectomy. Right mastectomy. Bilateral reconstructions. No chemo/XRT. Cervical cancer (HCC) Remote. SOHEILA/BSO. No chemo or XRT. COPD (chronic obstructive pulmonary disease) (HCC) Gastroenteritis History of ileus Meniere's disease [facility]. Meningioma (HCC) Mitral valve regurgitation Non Hodgkin's lymphoma (HCC) About 14 years ago. No XRT, chemotherapy. Watchful waiting. Osteoporosis Previous Surgical History PAST SURGICAL HISTORY Procedure Laterality Date BREAST RECONSTRUCTION CATARACT EXTRACTION HX Bilateral 2011 CATARACT SURGERY, COMPLEX COLONOSCOPY W/BIOPSY SINGLE/MULTIPLE 10/12/2016 D&C DIAG &/OR THERAP, NOT OB EGD TRANSORAL BIOPSY SINGLE/MULTIPLE 10/12/2016 EGD W/O BRSH SPEC VARICIES INJ N/A HEMORRHOIDECTOMY MASTECTOMY HX Bilateral 1982 PAST SURGICAL HISTORY OF Bronchial artery embolization, left lung PAST SURGICAL HISTORY OF 2002 Lymph node removal on left arm SLING OPER STRES INCONTINENCE TOT ABDOMINL HYSTERECTOMY 1984 Family History FAMILY HISTORY Problem Relation Age of Onset Alzheimer's Disease Mother in her 80s. Aneurysm Father AAA at age 61. other (Chronic bronchitis.) Father other (Other) Brother Parkinson's vs [place]'s. age 61. other (Other) Other Meningioma: multiple cousins Patient Allergies ALLERGIES Allergen Reactions Augmentin [Amoxicil* Vomiting Codeine GI Upset, Vomiting Shellfish Containin* Swelling, Anaphylaxis, Shortness of Breath, Other: See Comments, Hives No serious trouble with recent re-introduction of shellfish into diet. Bacitracin Itching Latex Rash Freeman Swelling Current Medications Current Outpatient Medications on File Prior to Visit Medication Sig fluticasone propion-salmeterol 232-14 mcg/actuation meloxicam (MOBIC) 7.5 mg tablet Take 7.5 mg by mouth once daily. lidocaine (LIDODERM) 5 % Apply 1 Patch as directed every 24 hours. ACETAMINOPHEN ORAL Take by mouth as needed. rivastigmine tartrate (EXELON) 1.5 mg capsule Take 1 capsule by mouth twice daily. triamterene-hydroCHLOROthiazide (DYAZIDE) 37.5-25 mg per capsule Take 1 capsule by mouth once daily. meclizine (ANTIVERT) 25 mg tab Take 25 mg by mouth as needed. calcium carbonate (TUMS ORAL) Take 1 tablet by mouth at bedtime as needed. nystatin (MYCOSTATIN) 100,000 unit/mL suspension three times daily. Cholecalciferol, Vitamin D3, 25 mcg (1,000 unit) cap Take 1,000 Units by mouth once daily. VENTOLIN HFA 90 mcg/actuation inhaler Inhale 2 Puffs as instructed every 6 hours as needed for Wheezing/Shortness of Breath. OXYGEN, HOME THERAPY, Inhale 3 L/min as instructed as directed. tiotropium (SPIRIVA WITH HANDIHALER) 18 mcg inhalation capsule INHALE THE CONTENTS OF ONE CAPSULE VIA HANDIHALER ONCE DAILY Zinc 50 mg tab Take 50 mg by mouth once daily. ipratropium-albuterol (DUONEB) 0.5 mg-3 mg(2.5 mg base)/3 mL nebu Inhale 3 mL as instructed every 6hours as needed (wheezing/shortness of breath). CALCIUM ORAL Take 1 tablet by mouth once daily. MAGNESIUM ORAL Take 1 tablet by mouth once daily. No current facility-administered medications on file prior to visit. Social History Social History Tobacco Use Smoking status: Former Packs/day: 1.00 Years: 30.00 Additional pack years: 0.00 Total pack years: 30.00 Types: Cigarettes Quit date: 02/22/1999 Years since quittin.1 Smokeless tobacco: Never Tobacco comments: Father smoked in childhood home. Vaping Use Vaping Use: Never used Substance Use Topics Alcohol use: Yes Alcohol/week: 4.0 standard drinks of alcohol Types: 4 Glasses of Wine (5oz) per week Comment: With dinner. Drug use: No Review of Symptoms REVIEW OF SYSTEMS See HPI, otherwise negative EXAM: BP 110/70 (BP Site: Left Arm, BP Position: Sitting, BP Cuff Size: Regular Adult) Pulse 69 Wt 44.5 kg (98 lb 3.2 oz) SpO2 96% BMI 19.28 kg/m General Appearance: Well appearing, alert, in no acute distress, well-hydrated, well nourished. andThin. Lungs: Lungs clear to auscultation. No wheezing, rhonchi, rales.. Heart: RRR without murmur, gallop, or rubs. No ectopy. Extremities: left ankle and lower leg with erythema, warmth, quarter-sized blood blister-is not draining, 2+ nonpitting edema. Psychiatric: pleasant, cooperative. Health Maintenance List Advance Directive Discussion due on 02/22/2023 Depression Assessment due on 02/22/2023 Covid-19 Vaccine( season) due on 03/02/2023 RSV Vaccine(1 - 1-dose 60+ series) due on 12/24/2023 Annual PCP Team Chronic Disease Visit due on 04/02/2024 Diabetes Screening due on 01/27/2026 Bone Density Screening Completed Spirometry Completed Influenza Vaccine Completed Shingrix Vaccine Completed Pneumococcal Vaccine: 65+ Completed HPV Vaccine Aged Out DTaP,Tdap,Td Vaccine Discontinued Colorectal Cancer Screening Discontinued Data reviewed Previous records office notes ASSESSMENT/PLAN: 1. Cellulitis of skin - ICD9: 682.9, ICD10: L03.90 (primary diagnosis) - Begin treatment with as ordered - No lymphangetic streaking, this was defined for patient to watch for and to seek medical care immediately if appears - Tricia wrap to LLE, elevated as much as possible, limit time in dependent position Follow up in the office in 3 days Ultrasound to r/o DVT - DOXYCYCLINE HYCLATE 100 MG TABLET - US LEG VEIN DVT UNL VAS LAB - US DVT LOWER LEFT 2. Left ankle swelling - ICD9: 719.07, ICD10: M25.472 - Begin treatment with as ordered - No lymphangetic streaking, this was defined for patient to watch for and to seek medical care immediately if appears - Tricia wrap to LLE, elevated as much as possible, limit time in dependent position Follow up in the office in 3 days Ultrasound to r/o DVT - DOXYCYCLINE HYCLATE 100 MG TABLET - US LEG VEIN DVT UNL VAS LAB - US DVT LOWER LEFT 3. Discoloration of skin of lower leg - ICD9: 709.00, ICD10: L81.9 - Begin treatment with as ordered - No lymphangetic streaking, this was defined for patient to watch for and to seek medical care immediately if appears - Tricia wrap to LLE, elevated as much as possible, limit time in dependent position Follow up in the office in 3 days Ultrasound to r/o DVT - DOXYCYCLINE HYCLATE 100 MG TABLET - US LEG VEIN DVT UNL VAS LAB - US DVT LOWER LEFT 4- Begin treatment with as ordered - No lymphangetic streaking, this was defined for patient to watch for and to seek medical care immediately if appears - Tricia wrap to LLE, elevated as much as possible, limit time in dependent position Follow up in the office in 3 days Ultrasound to r/o DVT - DOXYCYCLINE HYCLATE 100 MG TABLET - US LEG VEIN DVT UNL VAS LAB - US DVT LOWER LEFT 5. Blister of left lower extremity, initial encounter - ICD9: 916.2, ICD10: S80.822A - Begin treatment with as ordered - No lymphangetic streaking, this was defined for patient to watch for and to seek medical care immediately if appears - Tricia wrap to LLE, elevated as much as possible, limit time in dependent position Follow up in the office in 3 days Ultrasound to r/o DVT - DOXYCYCLINE HYCLATE 100 MG TABLET - US LEG VEIN DVT UNL VAS LAB - US DVT LOWER LEFT 6. Localized edema - ICD9: 782.3, ICD10: R60.0 - Begin treatment with as ordered - No lymphangetic streaking, this was defined for patient to watch for and to seek medical care immediately if appears - Tricia wrap to LLE, elevated as much as possible, limit time in dependent position Follow up in the office in 3 days Ultrasound to r/o DVT - US LEG VEIN DVT UNL VAS LAB - US DVT LOWER LEFT Dallas Calabrese APRN.MARKER MACHINE documented in this encounterBarney [facility]12-06-2023 History of Present illness Narrative* Margarito Shields MD - 01/27/2023 9:55 AM EST HISTORY OF PRESENT ILLNESS: Madison Lofton is a 82 year old female dx with CLL/SLL in [place] 18 years ago on basis of LN biopsy, she cannot recal site of biopsy. R[place] 10 years ago, not sure why, records scant. Here for follow up, feels well. CLINICAL IMPRESSION: SLL, doing well, no clinical evidence of disease RECOMMENDATION/PLAN: 1. See back 1 year 2. She'll matilda if she notices any changes of concern Written and verbal health teaching given to patient, patient verbalizes understanding and agrees with treatment plan. PAST MEDICAL HISTORY Diagnosis Date Breast cancer (HCC) Left mastectomy. Right mastectomy. Bilateral reconstructions. No chemo/XRT. Cervical cancer (HCC) Remote. SOHEILA/BSO. No chemo or XRT. COPD (chronic obstructive pulmonary disease) (HCC) Gastroenteritis History of ileus Meniere's disease [facility]. Meningioma (HCC) Mitral valve regurgitation Non Hodgkin's lymphoma (HCC) About 14 years ago. No XRT, chemotherapy. Watchful waiting. Osteoporosis PAST SURGICAL HISTORY Procedure Laterality Date BREAST RECONSTRUCTION CATARACT EXTRACTION HX Bilateral 2011 CATARACT SURGERY, COMPLEX COLONOSCOPY W/BIOPSY SINGLE/MULTIPLE 10/12/2016 D&C DIAG &/OR THERAP, NOT OB EGD TRANSORAL BIOPSY SINGLE/MULTIPLE 10/12/2016 EGD W/O BRSH SPEC VARICIES INJ N/A HEMORRHOIDECTOMY MASTECTOMY HX Bilateral 1982 PAST SURGICAL HISTORY OF Bronchial artery embolization, left lung PAST SURGICAL HISTORY OF 2002 Lymph node removal on left arm SLING OPER STRES INCONTINENCE TOT ABDOMINL HYSTERECTOMY 1984 FAMILY HISTORY Problem Relation Age of Onset Alzheimer's Disease Mother in her 80s. Aneurysm Father AAA at age 61. other (Chronic bronchitis.) Father other (Other) Brother Parkinson's vs [place]'s. age 61. other (Other) Other Meningioma: multiple cousins Social History Tobacco Use Smoking status: Former Packs/day: 1.00 Years: 30.00 Additional pack years: 0.00 Total pack years: 30.00 Types: Cigarettes Quit date: 02/22/1999 Years since quittin.9 Smokeless tobacco: Never Tobacco comments: Father smoked in childhood home. Vaping Use Vaping Use: Never used Substance Use Topics Alcohol use: Yes Alcohol/week: 4.0 standard drinks of alcohol Types: 4 Glasses of Wine (5oz) per week Comment: With dinner. Drug use: No ALLERGIES: ALLERGIES Allergen Reactions Augmentin [Amoxicil* Vomiting Codeine GI Upset, Vomiting Shellfish Containin* Swelling, Anaphylaxis, Shortness of Breath, Other: See Comments, Hives No serious trouble with recent re-introduction of shellfish into diet. Bacitracin Itching Latex Rash Freeman Swelling CURRENT OUTPATIENT MEDICATIONS: fluticasone propion-salmeterol 232-14 mcg/actuation meloxicam (MOBIC) 7.5 mg tablet Take 7.5 mg by mouth once daily. lidocaine (LIDODERM) 5 % Apply 1 Patch as directed every 24 hours. ACETAMINOPHEN ORAL Take by mouth as needed. rivastigmine tartrate (EXELON) 1.5 mg capsule Take 1 capsule by mouth twice daily. triamterene-hydroCHLOROthiazide (DYAZIDE) 37.5-25 mg per capsule Take 1 capsule by mouth once daily. meclizine (ANTIVERT) 25 mg tab Take 25 mg by mouth as needed. calcium carbonate (TUMS ORAL) Take 1 tablet by mouth at bedtime as needed. nystatin (MYCOSTATIN) 100,000 unit/mL suspension three times daily. Cholecalciferol, Vitamin D3, 25 mcg (1,000 unit) cap Take 1,000 Units by mouth once daily. VENTOLIN HFA 90 mcg/actuation inhaler Inhale 2 Puffs as instructed every 6 hours as needed for Wheezing/Shortness of Breath. OXYGEN, HOME THERAPY, Inhale 3 L/min as instructed as directed. tiotropium (SPIRIVA WITH HANDIHALER) 18 mcg inhalation capsule INHALE THE CONTENTS OF ONE CAPSULE VIA HANDIHALER ONCE DAILY Zinc 50 mg tab Take 50 mg by mouth once daily. ipratropium-albuterol (DUONEB) 0.5 mg-3 mg(2.5 mg base)/3 mL nebu Inhale 3 mL as instructed every 6hours as needed (wheezing/shortness of breath). CALCIUM ORAL Take 1 tablet by mouth once daily. MAGNESIUM ORAL Take 1 tablet by mouth once daily. REVIEW OF SYSTEMS: GENERAL: No fever, night sweats, weight loss or malaise. All other reviewed and negative other than HPI. PHYSICAL EXAMINATION: VITAL SIGNS: BP 119/77 Pulse 89 Temp 98.4 Ht 4' 11.843 (1.52m) Wt 89 lb (40.4kg) SpO2 100% BMI 17.47 kg/(m^2). GENERAL APPEARANCE: Well appearing, in no acute distress, alert and oriented x3, well-hydrated, well nourished. No palpable adenopathy or splenomegaly. I spent a total of 45 minutes on the date of the service which included preparing to see the patient, [id number] patient care, completing clinical documentation, obtaining and/or reviewing separately obtained history, performing a medically appropriate examination, counseling and educating the pat ient/family/caregiver, independently interpreting results (not separately reported), and communicating results to the patient/family/caregiver. Electronically Signed: Margarito Shields MD January 27, 2023 9:55 AM documented in this encounterBarney Children'S Medical Center11-01-2023 Miscellaneous Notes* Telephone Encounter - Yary AllynMalinaLianna - 12/23/2022 2:39 PM EDT Scheduled with daughterJohanna * Telephone Encounter - Judith Garcia LPN - 12/23/2022 12:59 PM EDT Pt. Of Dr. Mcmillan PLAN: - Continue observation, no treatment is needed at this time for her lymphoma. -.Repeat CBC, CMP, LDH and OV in 1 year Please contact pt. And schedule appt. With Dr. Shields. Judith Garcia LPN * Telephone Encounter - Thao Domínguez - 12/23/2022 12:47 PM EDT Please review consult from Dr. Dooley and call patient to schedule. documented in this encounterBarney Children'S Medical Center11-01-2023 History of Present illness Narrative* Donnell Dooley MD - 12/23/2022 10:38 AM EDT Patient presents with: Follow Up HPI: Patient presents today for office visit for follow up. Currently resides in [facility]. Follows with podiatry. Has not seen Dr. Haq. Memory is the same. Not any worse. She writes a lot of things down to help her remember. Had last mri in 2021. PULM: Still seeing Dr. Antunez with [facility] Breathing is stable Using oxygen at night Not using rescue inhaler often Needs follow up with heme onc. Seeing Dr. Nowak for pain management. Gets steroids shots. Had toe amputation via Dr. Helms for hammer toe. Had one fall but was mechanical. No injuries. Will hold on further bone density testing due to age. Cardiology followed her remotely for her valves. See previous ov: Needs to move due to issues with her memory. Lives with her . Will be moving to Assisted Living. She is overdue to follow with oncology. She had seen Dr Mcmillan who has since retired. Still sees Dr Antunez, at [facility]. Meds have recently been changed. Uses oxygen at hs. Follows with Dr. Helms, podiatry. Sees Dr. Triana for pain management. Has had some more increased pain. Meniere's is stable. Sees Dr Ramírez and uses meclizine prn. [facility]es [facility] but needs to follow up with them as well. Overdue to see Dr. Haq. Followed with her MRI and memory with him. No recent falls. Has a rollator but has not had to use it. Appetite and sleeping is stable. No issues with bowels or urine. Nursing will be managing her meds. No chest pain or shortness of breath. No current dizziness. No edema. MEDICATIONS: Current Outpatient Medications Medication Sig fluticasone propion-salmeterol 232-14 mcg/actuation meloxicam (MOBIC) 7.5 mg tablet lidocaine (LIDODERM) 5 % Apply 1 Patch as directed every 24 hours. ACETAMINOPHEN ORAL Take by mouth. rivastigmine tartrate (EXELON) 1.5 mg capsule Take 1 capsule by mouth twice daily. triamterene-hydroCHLOROthiazide (DYAZIDE) 37.5-25 mg per capsule Take 1 capsule by mouth once daily. meclizine (ANTIVERT) 25 mg tab calcium carbonate (TUMS ORAL) Take 1 tablet by mouth at bedtime as needed. nystatin (MYCOSTATIN) 100,000 unit/mL suspension three times daily. Cholecalciferol, Vitamin D3, 25 mcg (1,000 unit) cap Take 1,000 Units by mouth once daily. VENTOLIN HFA 90 mcg/actuation inhaler Inhale 2 Puffs as instructed every 6 hours as needed for Wheezing/Shortness of Breath. OXYGEN, HOME THERAPY, Inhale 3 L/min as instructed as directed. tiotropium (SPIRIVA WITH HANDIHALER) 18 mcg inhalation capsule INHALE THE CONTENTS OF ONE CAPSULE VIA HANDIHALER ONCE DAILY Zinc 50 mg tab Take 50 mg by mouth once daily. ipratropium-albuterol (DUONEB) 0.5 mg-3 mg(2.5 mg base)/3 mL nebu Inhale 3 mL as instructed every 6hours as needed (wheezing/shortness of breath). CALCIUM ORAL Take 1 tablet by mouth once daily. MAGNESIUM ORAL Take 1 tablet by mouth once daily. No current facility-administered medications for this visit. ALLERGIES: ALLERGIES Allergen Reactions Augmentin [Amoxicil* Vomiting Codeine GI Upset, Vomiting Shellfish Containin* Swelling, Anaphylaxis, Shortness of Breath, Other: See Comments, Hives No serious trouble with recent re-introduction of shellfish into diet. Bacitracin Itching Latex Rash Freeman Swelling PAST MEDICAL HISTORY Diagnosis Date Breast cancer (HCC) Left mastectomy. Right mastectomy. Bilateral reconstructions. No chemo/XRT. Cervical cancer (HCC) Remote. SOHEILA/BSO. No chemo or XRT. COPD (chronic obstructive pulmonary disease) (HCC) Gastroenteritis History of ileus Meniere's disease [facility]. Meningioma (HCC) Mitral valve regurgitation Non Hodgkin's lymphoma (HCC) About 14 years ago. No XRT, chemotherapy. Watchful waiting. Osteoporosis PAST SURGICAL HISTORY Procedure Laterality Date BREAST RECONSTRUCTION CATARACT EXTRACTION HX Bilateral 2011 CATARACT SURGERY, COMPLEX COLONOSCOPY W/BIOPSY SINGLE/MULTIPLE 10/12/2016 D&C DIAG &/OR THERAP, NOT OB EGD TRANSORAL BIOPSY SINGLE/MULTIPLE 10/12/2016 EGD W/O BRSH SPEC VARICIES INJ N/A HEMORRHOIDECTOMY MASTECTOMY HX Bilateral 1982 PAST SURGICAL HISTORY OF Bronchial artery embolization, left lung PAST SURGICAL HISTORY OF 2002 Lymph node removal on left arm SLING OPER STRES INCONTINENCE TOT ABDOMINL HYSTERECTOMY 1984 FAMILY HISTORY Problem Relation Age of Onset Alzheimer's Disease Mother in her 80s. Aneurysm Father AAA at age 61. other (Chronic bronchitis.) Father other (Other) Brother Parkinson's vs [place]'s. age 61. other (Other) Other Meningioma: multiple cousins Social History Tobacco Use Smoking status: Former Packs/day: 1.00 Years: 30.00 Additional pack years: 0.00 Total pack years: 30.00 Types: Cigarettes Quit date: 02/22/1999 Years since quittin.8 Smokeless tobacco: Never Tobacco comments: Father smoked in childhood home. Vaping Use Vaping Use: Never used Substance Use Topics Alcohol use: Yes Alcohol/week: 4.0 standard drinks of alcohol Types: 4 Glasses of Wine (5oz) per week Comment: With dinner. Drug use: No Reviewed current medications, allergies, past medical history, surgical history, family history andsocial history today. REVIEW OF SYSTEMS All other reviewed and negative other than HPI. HEALTH MAINTENANCE: Reviewed health maintenance issues today and recommended the following in detail. RSV Vaccine(1 - 1-dose 60+ series) Never done Influenza Vaccine(1) due on 10/23/2022 Covid-19 Vaccine(2022- season) due on 10/23/2022 VITALS: BP 94/70 Pulse 78 Ht 152.4 cm (5') Wt 42.6 kg (94 lb) SpO2 95% BMI 18.36 kg/m Last 4 Encounter Wt Readings: Date: Wt: 10/07/2022 42.2 kg (93 lb) 10/05/2022 42.2 kg (93 lb) 06/15/2022 42.4 kg (93 lb 6.4 oz) 03/16/2022 40 kg (88 lb 3.2 oz) PHYSICAL EXAMINATION: General appearance: Well appearing, alert, [...] joint swelling, deformity, or tenderness ASSESSMENT/PLAN: 1. Atrial fibrillation, unspecified type (HCC) - ICD9: 427.31, ICD10: I48.91 (primary diagnosis) - stable. 2. Mild cognitive impairment - ICD9: 331.83, ICD10: G31.84 - stable. 3. MVP (mitral valve prolapse) - ICD9: 424.0, ICD10: I34.1 - consider echo next year., 4. Mixed hyperlipidemia - ICD9: 272.2, ICD10: E78.2 - stable. 5. Meningioma (HCC) - ICD9: 225.2, ICD10: D32.9 - last mri was stable. 6. History of breast cancer - ICD9: V10.3, ICD10: Z85.3 - stable. 7. Small B-cell lymphoma, unspecified body region (HCC) - ICD9: 200.80, ICD10: C83.00 - due for follow up - CONSULT TO HEMATOLOGY 8. Age-related osteoporosis without current pathological fracture - ICD9: 733.01, ICD10: M81.0 - hold on testing due to age. 9. Pulmonary emphysema, unspecified emphysema type (HCC) - ICD9: 492.8, ICD10: J43.9 - stable. Per pulmonary. Donnell Dooley MD documented in this encounterBarney Children'S Medical Center10-20-2023 Miscellaneous Notes* Telephone Encounter - Jennifer Holm LPN - 12/11/2022 2:03 PM EDT Completed and faxed back as requested. * Telephone Encounter - Parish Correia LPN - 12/11/2022 10:22 AM EDT Type of form: NH orders Form received via fax When form is completed, Fax form to [phone] Form has been forwarded to Physician Mailbox: Dr. Soumya Correia LPN documented in this encounterBarney Children'S Medical Center10-17-2023 Miscellaneous Notes* Telephone Encounter - Amber Clark LPN - 12/08/2022 3:58 PM EDT Therapy department at [facility], notified. Verbalized understanding. * Telephone Encounter - Donnell Dooley MD - 12/08/2022 3:53 PM EDT Ok to do * Telephone Encounter - Amber Clark LPN - 12/08/2022 3:42 PM EDT Faxed received from [facility] Requesting OT Eval and Tx orders for patient due to recent ER visit, collar bone discomfort, and patient reporting difficulty dressing now. Please review and advise documented in this encounterBarney Children'S Medical Center10-13-2023 Miscellaneous Notes* Telephone Encounter - Jessica Middleton LPN - 12/04/2022 12:56 PM EDT Spoke with Haleigh and she will contact daughter with information listed below. Jessica Middleton LPN * Telephone Encounter - An Barker Ma - 12/04/2022 12:32 PM EDT Left message for patient to return call. An Barker Ma * Telephone Encounter - Donnell Dooley MD - 12/04/2022 12:18 PM EDT If she is having pain all the way to her foot that means it is likely in her chest?? Likely needs seen. If any shortness of breath, neuro issues or chest discomfort to ER * Telephone Encounter - Jessica Middleton LPN - 12/04/2022 12:00 PM EDT Haleigh with [facility] called to let you know pt woke up this am complaining of left shoulder pain and now she is having left shoulder pain down to left foot. Vital signs are stable, 11:45am BP 112/64 pulse 73. Pt denies any chest pain. Please advise Jessica Ricardo LPN documented in this encounterBarney Children'S Medical Center09-25-2023 Miscellaneous Notes* Telephone Encounter - Skye Payton Ma - 11/16/2022 2:05 PM EDT Called and spoke with Maura pt Nurse. They will complete 2V chest x-ray. Skye Payton Ma * Telephone Encounter - Donnell Dooley MD - 11/16/2022 1:51 PM EDT Ok for them to get xray of chest. * Telephone Encounter - Kaleigh Simmons RN - 11/16/2022 1:22 PM EDT Haleigh, nurse at [facility] nursing facility calling. States patient fell today, approx 1 hour ago. Pt was hugging someone and lost her balance and her sternum hit the arm of her walker. Is having some discomfort in the center of her chest and pt states she has fractured ribs there before. No other injuriesreported. No other sx's reported. Haleigh asking Dr. Dooley if can have order for xray? Please call Haleigh at [phone]. Thank you. documented in this encounterBarney Children'S Medical Center09-07-2023 History of Present illness Narrative* Danika Helms - 10/29/2022 1:36 PM EDT DOS: 10/12/22 POD: 17 Surgical side: right 2nd toe amputation This 82 year old presents post op right 2nd toe amputation Pain level: 0/10 Vomiting, fever, chills, shortness of breath: no Pain Control: n/a Weightbearing status: full weightbearing 5.5 (09/16/2017) PAST MEDICAL HISTORY Diagnosis Date Breast cancer (HCC) Left mastectomy. Right mastectomy. Bilateral reconstructions. No chemo/XRT. Cervical cancer (HCC) Remote. SOHEILA/BSO. No chemo or XRT. COPD (chronic obstructive pulmonary disease) (HCC) Gastroenteritis History of ileus Meniere's disease [facility]. Meningioma (HCC) Mitral valve regurgitation Non Hodgkin's lymphoma (HCC) About 14 years ago. No XRT, chemotherapy. Watchful waiting. Osteoporosis Current Outpatient Medications Medication Sig ACETAMINOPHEN ORAL Take by mouth. doxycycline hyclate (VIBRAMYCIN) 100 mg capsule Take 1 capsule by mouth twice daily. rivastigmine tartrate (EXELON) 1.5 mg capsule Take 1 capsule by mouth twice daily. triamterene-hydroCHLOROthiazide (DYAZIDE) 37.5-25 mg per capsule Take 1 capsule by mouth once daily. meclizine (ANTIVERT) 25 mg tab calcium carbonate (TUMS ORAL) Take 1 tablet by mouth at bedtime as needed. nystatin (MYCOSTATIN) 100,000 unit/mL suspension three times daily. Cholecalciferol, Vitamin D3, 25 mcg (1,000 unit) cap Take 1,000 Units by mouth once daily. VENTOLIN HFA 90 mcg/actuation inhaler Inhale 2 Puffs as instructed every 6 hours as needed for Wheezing/Shortness of Breath. OXYGEN, HOME THERAPY, Inhale 3 L/min as instructed as directed. tiotropium (SPIRIVA WITH HANDIHALER) 18 mcg inhalation capsule INHALE THE CONTENTS OF ONE CAPSULE VIA HANDIHALER ONCE DAILY Zinc 50 mg tab Take 50 mg by mouth once daily. ipratropium-albuterol (DUONEB) 0.5 mg-3 mg(2.5 mg base)/3 mL nebu Inhale 3 mL as instructed every 6hours as needed (wheezing/shortness of breath). CALCIUM ORAL Take 1 tablet by mouth once daily. MAGNESIUM ORAL Take 1 tablet by mouth once daily. No current facility-administered medications for this visit. ALLERGIES Allergen Reactions Augmentin [Amoxicil* Vomiting Codeine GI Upset, Vomiting Shellfish Containin* Swelling, Anaphylaxis, Shortness of Breath, Other: See Comments, Hives No serious trouble with recent re-introduction of shellfish into diet. Bacitracin Itching Latex Rash Freeman Swelling Objective: Incision site is healed without evidence of dehiscence. Mild inversion of proximal incision likely due to thinning of skin. no erythema and edema surrounding surgical site. No drainage. Nolymphadenopathy. No lymphangitis. No surrounding cellulitis. Callus to left medial hallux Patient has no pain to palpation of right calf. Negative Lau's test. Assessment: (Z98.890) Post-operative state (primary encounter diagnosis) (L84) Callus of foot Plan: Suture was removed today. Incision is healed There is small amount of inversion of proximal incision and this was likely due to the thinning of skin. Discussed this with patient and daughter. I do not foresee any issues with this as the incision is healed Ok to shower. Ok to return to regular shoe. Ok to apply lotion to feet. Patient very happy with outcome. Prior Callus to right hallux shaved with 15 blade and dremmel. Do not expect this to return now that the toe has been amputated. Danika Helms DPM * Denise Bowman LPN - 10/29/2022 8:34 AM EDT AMB ROOMING INTAKE FLOWSHEET DATA Patient presents with: Right 2nd Toe - Post Op, Established Patient, Follow Up Denise Bowman LPN documented in this encounterBarney Children'S Medical Center08-31-2023 Instructions* Patient Instructions* Danika Helms - 10/22/2022 9:07 AM EDT Your foot looks great Continue with bandage change every 2-3 days Continue with post-op shoe Plan for suture removal next week documented in this encounterBarney Children'S Medical Center08-31-2023 History of Present illness Narrative* Danika Helms - 10/22/2022 9:03 AM EDT DOS: 10/12/22 POD: 10 POV: 3 Surgical side: right This 82 year old presents post op right 2nd toe amputation Pain level: 0/10 Vomiting, fever, chills, shortness of breath: n/a Pain Control: n/a Weightbearing status: full weight bearing in post-op shoe 5.5 (09/16/2017) PAST MEDICAL HISTORY Diagnosis Date Breast cancer (HCC) Left mastectomy. Right mastectomy. Bilateral reconstructions. No chemo/XRT. Cervical cancer (HCC) Remote. SOHEILA/BSO. No chemo or XRT. COPD (chronic obstructive pulmonary disease) (HCC) Gastroenteritis History of ileus Meniere's disease [facility]. Meningioma (HCC) Mitral valve regurgitation Non Hodgkin's lymphoma (HCC) About 14 years ago. No XRT, chemotherapy. Watchful waiting. Osteoporosis Current Outpatient Medications Medication Sig ACETAMINOPHEN ORAL Take by mouth. doxycycline hyclate (VIBRAMYCIN) 100 mg capsule Take 1 capsule by mouth twice daily. rivastigmine tartrate (EXELON) 1.5 mg capsule Take 1 capsule by mouth twice daily. triamterene-hydroCHLOROthiazide (DYAZIDE) 37.5-25 mg per capsule Take 1 capsule by mouth once daily. meclizine (ANTIVERT) 25 mg tab calcium carbonate (TUMS ORAL) Take 1 tablet by mouth at bedtime as needed. nystatin (MYCOSTATIN) 100,000 unit/mL suspension three times daily. Cholecalciferol, Vitamin D3, 25 mcg (1,000 unit) cap Take 1,000 Units by mouth once daily. VENTOLIN HFA 90 mcg/actuation inhaler Inhale 2 Puffs as instructed every 6 hours as needed for Wheezing/Shortness of Breath. OXYGEN, HOME THERAPY, Inhale 3 L/min as instructed as directed. tiotropium (SPIRIVA WITH HANDIHALER) 18 mcg inhalation capsule INHALE THE CONTENTS OF ONE CAPSULE VIA HANDIHALER ONCE DAILY Zinc 50 mg tab Take 50 mg by mouth once daily. ipratropium-albuterol (DUONEB) 0.5 mg-3 mg(2.5 mg base)/3 mL nebu Inhale 3 mL as instructed every 6hours as needed (wheezing/shortness of breath). CALCIUM ORAL Take 1 tablet by mouth once daily. MAGNESIUM ORAL Take 1 tablet by mouth once daily. No current facility-administered medications for this visit. ALLERGIES Allergen Reactions Augmentin [Amoxicil* Vomiting Codeine GI Upset, Vomiting Shellfish Containin* Swelling, Anaphylaxis, Shortness of Breath, Other: See Comments, Hives No serious trouble with recent re-introduction of shellfish into diet. Bacitracin Itching Latex Rash Freeman Swelling Objective: Incision site is well coapted with no evidence of dehiscence. No erythema and edema surrounding surgical site. No drainage. No lymphadenopathy. No lymphangitis. No surrounding cellulitis. Patient has no pain to palpation of right calf. Negative Lau's test. Assessment: (Z98.890) Post-operative state (primary encounter diagnosis) Plan: Bandage removed and new dressing applied. Sutures: will plan for removal next week Weightbearing status: full weightbearing as tolerated RTC 1 week for suture removal Change dressing every 2-3 days Danika Helms DPM * Denise Bowman LPN - 10/22/2022 8:38 AM EDT AMB ROOMING INTAKE FLOWSHEET DATA Patient presents with: Right 2nd Toe - Established Patient, Post Op, Pain, Amputation Denise Bowman LPN documented in this encounterBarney Children'S Medical Center08-28-2023 Miscellaneous Notes* Telephone Encounter - Denise Bowman LPN - 10/19/2022 4:52 PM EDT Patient rescheduled. Denise Bowman LPN * Telephone Encounter - Denise Bowman LPN - 10/19/2022 4:32 PM EDT Called patients daughter to possibly move patients appointment due to provider being in surgery. Please transfer patient to podiatry staff. Denise Bowman LPN documented in this encounterBarney Children'S Medical Center08-22-2023 History of Present illness Narrative* Danika Helms - 10/13/2022 12:33 PM EDT DOS: 10/12/22 POD: 1 POV: 1 Surgical side: right 2nd toe amputation This 82 year old presents post op right 2nd toe amputation Pain level: minimal Vomiting, fever, chills, shortness of breath: no Pain Control: tramadol Weightbearing status: partial weightbearing 5.5 (09/16/2017) PAST MEDICAL HISTORY Diagnosis Date Breast cancer (HCC) Left mastectomy. Right mastectomy. Bilateral reconstructions. No chemo/XRT. Cervical cancer (HCC) Remote. SOHEILA/BSO. No chemo or XRT. COPD (chronic obstructive pulmonary disease) (HCC) Gastroenteritis History of ileus Meniere's disease [facility]. Meningioma (HCC) Mitral valve regurgitation Non Hodgkin's lymphoma (HCC) About 14 years ago. No XRT, chemotherapy. Watchful waiting. Osteoporosis Current Outpatient Medications Medication Sig doxycycline hyclate (VIBRAMYCIN) 100 mg capsule Take 1 capsule by mouth twice daily. traMADol (ULTRAM) 50 mg tablet Take 1 tablet by mouth every 8 hours as needed for pain for up to 7 days. rivastigmine tartrate (EXELON) 1.5 mg capsule Take 1 capsule by mouth twice daily. triamterene-hydroCHLOROthiazide (DYAZIDE) 37.5-25 mg per capsule Take 1 capsule by mouth once daily. meclizine (ANTIVERT) 25 mg tab calcium carbonate (TUMS ORAL) Take 1 tablet by mouth at bedtime as needed. nystatin (MYCOSTATIN) 100,000 unit/mL suspension three times daily. Cholecalciferol, Vitamin D3, 25 mcg (1,000 unit) cap Take 1,000 Units by mouth once daily. VENTOLIN HFA 90 mcg/actuation inhaler Inhale 2 Puffs as instructed every 6 hours as needed for Wheezing/Shortness of Breath. OXYGEN, HOME THERAPY, Inhale 3 L/min as instructed as directed. tiotropium (SPIRIVA WITH HANDIHALER) 18 mcg inhalation capsule INHALE THE CONTENTS OF ONE CAPSULE VIA HANDIHALER ONCE DAILY Zinc 50 mg tab Take 50 mg by mouth once daily. ipratropium-albuterol (DUONEB) 0.5 mg-3 mg(2.5 mg base)/3 mL nebu Inhale 3 mL as instructed every 6hours as needed (wheezing/shortness of breath). CALCIUM ORAL Take 1 tablet by mouth once daily. MAGNESIUM ORAL Take 1 tablet by mouth once daily. No current facility-administered medications for this visit. ALLERGIES Allergen Reactions Augmentin [Amoxicil* Vomiting Codeine GI Upset, Vomiting Shellfish Containin* Swelling, Anaphylaxis, Shortness of Breath, Other: See Comments, Hives No serious trouble with recent re-introduction of shellfish into diet. Bacitracin Itching Latex Rash Freeman Swelling Objective: Incision site is well coapted with no evidence of dehiscence. Mild erythema and edema surrounding surgical site. No drainage. No lymphadenopathy. No lymphangitis. No surrounding cellulitis. Small bleed at site of incision where guaze was removed. Incision is well approximated without dehiscence. Patient has no pain to palpation of right calf. Negative Lau's test. Assessment: (Z98.890) Post-operative state (primary encounter diagnosis) Plan: Bandage removed and new dressing applied. Sutures: will remove suture at 2-3 weeks post-op Weightbearing status: continue with assisted ambulation with walker RTC on Wednesday. Monitoring closely due to thin frail skin Danika Helms DPM * Jess Evans - 10/13/2022 11:10 AM EDT Patient presents with: Right Foot - Established Patient, Post Op: 1 day post right 2nd toe Patient reports no pain at this time. She takes tramadol for pain. She ambulates with a walker. Sheis wearing a surgical shoe at this time. documented in this encounterBarney Children'S Medical Center08-22-2023 Instructions* Patient Instructions* Danika Helms - 10/13/2022 11:43 AM EDT Patient is 1 day s/p right 2nd toe amputation. She is to continue with ambulation with walker and post-op shoe Do not get wet in shower Change dressing every [address] adapatic/nonadherent to incision followed by carlene folded logitudinally in half over the incision. Place abd on top and bottom of foot and secure with roll guaze. Prefer abd as I fear with her restless leg, may cause irritation from 4x4. Apply tricia wrap to foot and ankle Take aspirin twice daily to lower risk of blood clot Take antibiotic doxycycline 100 mg twice daily for prophylaxis Take tramadol every 8 hours for pain. Can take as needed. If you have any questions, call scooter at [phone] documented in this encounterBarney Children'S Medical Center08-21-2023 Miscellaneous Notes* Telephone Encounter - Danika Helms - 10/12/2022 8:31 PM EDT I called patient this evening and spoke with daughter. Patient daughter reports that her pain is doing well. Has no complaints. Is coming in for a dressing change tomorrow am. If they have any questions or concerns, they are to contact the office Danika Helms DPM documented in this encounterBarney Children'S Medical Center08-21-2023 Miscellaneous Notes* Telephone Encounter - Denise Bowman LPN - 10/12/2022 3:33 PM EDT Patient is scheduled for 10/13/2022 at 11. Denise Bowman LPN * Telephone Encounter - Denise Bowman LPN - 10/12/2022 3:12 PM EDT Called patients moraima Spencer to schedule 1 day follow up. No response. VM left. Denise Bowman LPN * Telephone Encounter - Danika Helms - 10/12/2022 1:10 PM EDT I would like to have this patient come in tomorrow for dressing change. Her skin was very thin and I want her to come in so I can monitor closely. Can you call daughter to schedule Danika Helms DPM documented in this encounterBarney Children'S Medical Center08-18-2023 Miscellaneous Notes* Telephone Encounter - Denise Bowman LPN - 10/09/2022 2:44 PM EDT PAT patient preoperative instruction was faxed to [phone] with the att. to [facility] nurse station. Denise Bowman LPN * Telephone Encounter - Erin Peter LPN - 10/09/2022 1:38 PM EDT Amy. WEAVER with [facility] called. Verified name and date of of patient. Patienthas been admitted to their facility on Wednesday. The facility was provided information today by patients daughter of surgery on Wednesday but the facility needs to know which medications can and cannotbe given and any pre and post surgery orders. The daughter was not sure. Erin Peter LPN * Telephone Encounter - Denise Bowman LPN - 10/08/2022 9:49 AM EDT While patient was in office on 10/06/2022 Patient was scheduled for amputation of right 2nd toe. Patient was provided with surgical folder with surgical confirmation letter, hibiclens, mitchellicleloreta instruction, and map of [facility]. Patient was schedule for preadmission testing and surgical request was placed in [facility]. Denise Bowman LPN documented in this encounterBarney Children'S Medical Center08-18-2023 Miscellaneous Notes* Telephone Encounter - Molly Delacruz LPN - 10/09/2022 9:59 AM EDT Received Cardiac records from [facility]. Original sent to [facility] through Onbase scanning. Molly Delacruz LPN * Telephone Encounter - Molly Delacruz LPN - 10/07/2022 11:44 AM EDT Fax request sent to [facility] for last office visit and cardiac testing for upcoming surgery. Molly Delacruz LPN * Telephone Encounter - Molly Delacruz LPN - 10/07/2022 11:37 AM EDT Fax request sent to [facility] requesting last office visit. Molly Delacruz LPN documented in this encounterBarney Children'S Medical Center08-15-2023 Miscellaneous Notes* Telephone Encounter - Guera Roy RN - 10/06/2022 1:11 PM EDT Faxed OV note and medication list to [phone] per request of Domonique. Guera Roy RN * Telephone Encounter - Remberto Bob RN - 10/02/2022 11:44 AM EDT Titi HAIRSTON, reports patient will be moving from independent living to assisted living on 10-07-22.Will need H & P within 30 days of moving date. Last seen in pcp office: 06-14-22. Scheduled apptfor H & P on 10-05-22. documented in this encounterBarney Children'S Medical Center08-15-2023 History of Present illness Narrative* Danika Helms - 10/06/2022 1:09 PM EDT Subjective: Patient presents to clinic c/o painful toenails. They state that the nails are especially painful with shoe gear and pressure. Patient also complaining of painful callus between her pnnwi9sb and 2nd toe. She states that it has been about 2 months since she had her callus debrided and as a result, her pain to her first and 2nd toe is severe. No other pedal complaints at this time. Patient states no change in medications or medical history since last visit. Objective: Patient presents to clinic ambulating in [facility] Vasc: DP and PT pulses are palpable bilateral. CFT is less than 5 seconds bilateral. Skin temperature is warm to cool proximal to distal bilateral. There is no edema or varicosities noted. Neuro: Protective sensation is intact to the foot and toes when tested with the 5.07 SWM bilateral.Vibratory sensation is intact at the hallux IPJ bilateral. The hallux is downgoing bilateral. Derm: Nails 2-5 b/l are painful, discolored-yellow, thick, crumbly, dystrophic and with subungal debris. Skin is of normal turgor, texture and hair growth is present bilateral. There is callus to thelateral aspect of right hallux and medial aspect of right 2nd toe. No underlying ulceration. No signs of infection. Ortho: Muscle strength is 5/5 for all pedal groups tested. Ankle joint DF is full with the knee extended with no pain or crepitus noted. 1st MPJ ROM is decreased bilateral. Bunion present to right foot leading to rubbing on 2nd toe Assessment: (B35.1) Onychomycosis (primary encounter diagnosis) (M79.675) Pain in toe of left foot (M79.674) Pain in toe of right foot (L84) Callus of foot (M20.11) Hallux valgus of right foot Plan: Patient was seen and evaluated. Nails 1-5 bilateral were debrided in length and thickness. Patient has large callus to right 1st and right 2nd toe. These were debrided with 15 blade. No underlying ulceration. There is considerable pain from rubbing between the first and 2nd toe leading to callus. I discussed treatment options to help reduce pressure between the toes not limited to lambs wool, gel padding, use of band aides. Also discussed periodic debridement of callus as conservative options. We discussed surgical options for the bunion of right foot to help reduce callus. If she were interested in bunion correction, a first mtpj fusion is one option but would require considerable down time. Alternative options to bunion correction include 2nd toe amputation. We discussed 2nd toe amputation as cause to help eliminate rubbing from 2nd toe. I discussed risks of amputation not limited toinfection, pain, swelling, bleeding, slow wound healing, progression of bunion deformity. Patient understands these risks. After long discussion, she has elected to pursue right 2nd toe amputation. Will have patient pursue pat tomorrow. Danika Helms DPM * Tammy Daniel RN - 10/06/2022 1:04 PM EDT Patient presents with: Left Foot - Established Patient, Debridement of Nail Right Foot - Established Patient, Debridement of Nail documented in this encounterBarney Children'S Medical Center08-14-2023 Instructions* Patient Instructions* Donnell Dooley MD - 10/05/2022 7:45 PM EDT Needs to see hematology, neurology, and pulmonary. documented in this encounterBarney Children'S Medical Center08-14-2023 History of Present illness Narrative* Donnell Dooley MD - 10/05/2022 7:33 PM EDT Patient presents with: Follow Up: H&P for moving into assisted living HPI: Patient presents today for office visit for visit for assisted living. Needs to move due to issues with her memory. Lives with her . Will be moving to Assisted Living. She is overdue to follow with oncology. She had seen Dr Mcmillan who has since retired. Still sees Dr Antunez, at [facility]. Meds have recently been changed. Uses oxygen at hs. Follows with Dr. Helms, podiatry. Sees Dr. Triana for pain management. Has had some more increased pain. Meniere's is stable. Sees Dr Ramírez and uses meclizine prn. Sees [facility] but needs to follow up with them as well. Overdue to see Dr. Haq. Followed with her MRI and memory with him. No recent falls. Has a rollator but has not had to use it. Appetite and sleeping is stable. No issues with bowels or urine. Nursing will be managing her meds. No chest pain or shortness of breath. No current dizziness. No edema. Component Latest Ref Rng & Units 06/15/2022 07/09/2022 WBC 3.70 - 11.00 k/uL 14.87 (H) RBC 3.90 - 5.20 m/uL 4.58 Hemoglobin 11.5 - 15.5 g/dL 14.4 Hematocrit 36.0 - 46.0 % 43.3 MCV 80.0 - 100.0 fL 94.5 MCH 26.0 - 34.0 pg 31.4 MCHC 30.5 - 36.0 g/dL 33.3 RDW-CV 11.5 - 15.0 % 13.3 Platelet Count 150 - 400 k/uL 193 MPV 9.0 - 12.7 fL 12.2 Neut% % 65.2 Abs Neut (ANC) 1.45 - 7.50 k/uL 9.70 (H) Lymph% % 25.7 Abs Lymph 1.00 - 4.00 k/uL 3.82 Ravalli% % 6.9 Abs Ravalli <0.87 k/uL 1.03 (H) Eosin% % 1.3 Abs Eosin <0.46 k/uL 0.19 Baso% % 0.4 Abs Baso <0.11 k/uL 0.06 Immature Gran % % 0.5 IMMATURE GRANS (ABS) <0.10 k/uL 0.07 NRBC /100 WBC 0.0 Absolute nRBC <0.01 k/uL <0.01 DTYPE Auto Protein, Total 6.3 - 8.0 g/dL 6.4 Albumin 3.9 - 4.9 g/dL 4.5 Calcium 8.5 - 10.2 mg/dL 10.3 (H) 9.9 Bilirubin, Total 0.2 - 1.3 mg/dL 0.5 Alkaline Phosphatase 34 - 123 U/L 93 AST 13 - 35 U/L 28 ALT 7 - 38 U/L 21 Glucose 74 - 99 mg/dL 95 102 (H) BUN 7 - 21 mg/dL 43 (H) 32 (H) Creatinine 0.58 - 0.96 mg/dL 0.87 0.74 Sodium 136 - 144 mmol/L 140 143 Potassium 3.7 - 5.1 mmol/L 3.5 (L) 3.7 Chloride 97 - 105 mmol/L 98 103 CO2 22 - 30 mmol/L 30 28 Anion Gap 9 - 18 mmol/L 12 12 eGFR >=60 mL/min/1.73m 67 82 Total Cholesterol, Nonfasting <200 mg/dL 247 (H) Triglycerides, Nonfasting <150 mg/dL 120 HDL Cholesterol, Nonfasting >39 mg/dL 91 LDL Cholesterol, Nonfasting <100 mg/dL 132 (H) Non HDL Cholesterol, Nonfasting <130 mg/dL 156 (H) VLDL Cholesterol, Nonfasting <30 mg/dL 24 Total Chol/HDL Ratio, Nonfasting <5.10 mg/dL 2.71 LDL/HDL Ratio, Nonfasting <2.54 mg/dL 1.45 Normalized Calcium 1.08 - 1.30 mmol/L 1.25 Ionized Calcium 1.08 - 1.30 mmol/L 1.28 Vitamin D 25 Hydroxy 31.0 - 80.0 ng/mL 40.3 MEDICATIONS: Current Outpatient Medications Medication Sig rivastigmine tartrate (EXELON) 1.5 mg capsule Take 1 capsule by mouth twice daily. triamterene-hydroCHLOROthiazide (DYAZIDE) 37.5-25 mg per capsule Take 1 capsule by mouth once daily. meclizine (ANTIVERT) 25 mg tab calcium carbonate (TUMS ORAL) Take 1 tablet by mouth at bedtime as needed. nystatin (MYCOSTATIN) 100,000 unit/mL suspension three times daily. Cholecalciferol, Vitamin D3, 25 mcg (1,000 unit) cap Take 1,000 Units by mouth once daily. SYMBICORT 160-4.5 mcg/actuation inhaler Inhale 2 Puffs as instructed twice daily. VENTOLIN HFA 90 mcg/actuation inhaler Inhale 2 Puffs as instructed every 6 hours as needed for Wheezing/Shortness of Breath. OXYGEN, HOME THERAPY, Inhale 3 L/min as instructed as directed. tiotropium (SPIRIVA WITH HANDIHALER) 18 mcg inhalation capsule INHALE THE CONTENTS OF ONE CAPSULE VIA HANDIHALER ONCE DAILY Zinc 50 mg tab Take 50 mg by mouth once daily. ipratropium-albuterol (DUONEB) 0.5 mg-3 mg(2.5 mg base)/3 mL nebu Inhale 3 mL as instructed every 6hours as needed (wheezing/shortness of breath). CALCIUM ORAL Take 1 tablet by mouth once daily. MAGNESIUM ORAL Take 1 tablet by mouth once daily. No current facility-administered medications for this visit. ALLERGIES: ALLERGIES Allergen Reactions Augmentin [Amoxicil* Vomiting Codeine GI Upset, Vomiting Shellfish Containin* Swelling, Anaphylaxis, Shortness of Breath, Other: See Comments, Hives No serious trouble with recent re-introduction of shellfish into diet. Bacitracin Itching Latex Rash Freeman Swelling PAST MEDICAL HISTORY Diagnosis Date Breast cancer (HCC) Left mastectomy. Right mastectomy. Bilateral reconstructions. No chemo/XRT. Cervical cancer (HCC) Remote. SOHEILA/BSO. No chemo or XRT. COPD (chronic obstructive pulmonary disease) (HCC) Gastroenteritis History of ileus Meniere's disease [facility]. Meningioma (HCC) Mitral valve regurgitation Non Hodgkin's lymphoma (HCC) About 14 years ago. No XRT, chemotherapy. Watchful waiting. Osteoporosis PAST SURGICAL HISTORY Procedure Laterality Date BREAST RECONSTRUCTION CATARACT EXTRACTION HX Bilateral 2011 CATARACT SURGERY, COMPLEX COLONOSCOPY W/BIOPSY SINGLE/MULTIPLE 10/12/2016 D&C DIAG &/OR THERAP, NOT OB EGD TRANSORAL BIOPSY SINGLE/MULTIPLE 10/12/2016 EGD W/O BRSH SPEC VARICIES INJ N/A HEMORRHOIDECTOMY MASTECTOMY HX Bilateral 1982 PAST SURGICAL HISTORY OF Bronchial artery embolization, left lung PAST SURGICAL HISTORY OF 2002 Lymph node removal on left arm SLING OPER STRES INCONTINENCE TOT ABDOMINL HYSTERECTOMY 1985 FAMILY HISTORY Problem Relation Age of Onset Alzheimer's Disease Mother in her 80s. Aneurysm Father AAA at age 61. other (Chronic bronchitis.) Father other (Other) Brother Parkinson's vs [place]'s. age 61. other (Other) Other Meningioma: multiple cousins Social History Tobacco Use Smoking status: Former Packs/day: 1.00 Years: 30.00 Additional pack years: 0.00 Total pack years: 30.00 Types: Cigarettes Quit date: 02/22/1999 Years since quittin.6 Smokeless tobacco: Never Tobacco comments: Father smoked in childhood home. Vaping Use Vaping Use: Never used Substance Use Topics Alcohol use: Yes Alcohol/week: 4.0 standard drinks of alcohol Types: 4 Glasses of Wine (5oz) per week Comment: With dinner. Drug use: No Reviewed current medications, allergies, past medical history, surgical history, family history andsocial history today. REVIEW OF SYSTEMS All other reviewed and negative other than HPI. HEALTH MAINTENANCE: Reviewed health maintenance issues today and recommended the following in detail. VITALS: BP 132/82 Pulse 63 Wt 42.2 kg (93 lb) SpO2 98% BMI 18.16 kg/m Last 4 Encounter Wt Readings: Date: Wt: 10/05/2022 42.2 kg (93 lb) 06/15/2022 42.4 kg (93 lb 6.4 oz) 03/16/2022 40 kg (88 lb 3.2 oz) 12/09/2021 40.1 kg (88 lb 6.4 oz) PHYSICAL EXAMINATION: General appearance: Well appearing, alert, [...] normal Neck: Negative findings: no adenopathy Lungs: Lungs clear to auscultation. No wheezing, rhonchi, rales Heart: RRR without murmur, gallop, or rubs. No ectopy Abdomen: Normal abdominal exam, Abdomen soft, non-tender. Bowel sounds normal. No masses, organomegaly Extremities: No deformities, edema, skin discoloration, clubbing or cyanosis. Good capillary refill. Musculoskeletal: No joint swelling, deformity, or tenderness ASSESSMENT/PLAN: 1. Mild cognitive impairment - ICD9: 331.83, ICD10: G31.84 (primary diagnosis) - agree with assisted living Continue meds. - RIVASTIGMINE 1.5 MG CAPSULE 2. Meningioma (HCC) - ICD9: 225.2, ICD10: D32.9 - due for neuro follow up. Has been stable on MRI. 3. Atrial fibrillation, unspecified type (HCC) - ICD9: 427.31, ICD10: I48.91 - stable. Per cardiology. 4. Mixed hyperlipidemia - ICD9: 272.2, ICD10: E78.2 - Controlled - Continue current medications - Counseled on healthy diet and regular exercise 5. Mitral valve insufficiency, unspecified etiology - ICD9: 424.0, ICD10: I34.0 - stable. 6. MVP (mitral valve prolapse) - ICD9: 424.0, ICD10: I34.1 - stable. 7. Chronic respiratory failure with hypoxia (HCC) - ICD9: 518.83, 799.02, ICD10: J96.11 - doing well. 8. Pulmonary emphysema, unspecified emphysema type (HCC) - ICD9: 492.8, ICD10: J43.9 - doing well. 9. Personal history of CLL (chronic lymphocytic leukemia) - ICD9: V10.61, ICD10: Z85.6 - follow with hematology. 10. History of breast cancer - ICD9: V10.3, ICD10: Z85.3 - as above. 11. Meniere's disease of both ears - ICD9: 386.00, ICD10: H81.03 - use meds prn. 12. Small B-cell lymphoma, unspecified body region (HCC) - ICD9: 200.80, ICD10: C83.00 - see hematology. 13. Age-related osteoporosis without current pathological fracture - ICD9: 733.01, ICD10: M81.0 At age 82, would not pursue follow up. Donnell Dooley RTO in six months and prn. documented in this encounterBarney Children'S Medical Center08-10-2023 Miscellaneous Notes* Telephone Encounter - Olinda Knight - 10/01/2022 4:38 PM EDT Faxed to [facility]. Olinda Knight * Telephone Encounter - Donnell Dooley MD - 10/01/2022 8:37 AM EDT Printed. * Telephone Encounter - Alejandrina Cooper RN - 09/30/2022 12:52 PM EDT Patient's daughter calls and states that patient is moving from independent living to [facility] assisted care. Daughter states that [facility] is going to need a letter from provider that states that provider recommends patient to be in assisted living. Please review and advise, Alejandrina Cooper RN documented in this encounterBarney Children'S Medical Center07-27-2023 Miscellaneous Notes* Telephone Encounter - Guera Roy RN - 09/17/2022 10:51 AM EDT Domonique with [facility] calls to request Face Sheet, Insurance Info, OV Note, Current Medication list withH&P. Verbal ok received from daughter Johanna to send. Faxed to [facility] per request. Guera Roy RN documented in this encounterBarney Children'S Medical Center06-01-2023 History of Present illness Narrative* Danika Helms - 07/23/2022 10:38 AM EDT Images from the original note were not included. FOLLOW UP PODIATRIC OFFICE VISIT Chief Complaint: This 82 year old who presents for follow up:callus of right hallux Patient presents to clinic for follow-up painful callus of right hallux She treats with padding She is here for debridement. PAIN EVALUATION 07/23/2022 1031 Pain Level: 9 Pain Location: Other: See Comment bilateral hallux Description: Sore Duration Amount of Time: 2 Duration Units: Months Frequency: Intermittent Intervention/Comfort measure: Reposition;Relaxation Hemoglobin A1C Date Value Ref Range Status 09/16/2017 5.5 4.3 - 5.6 % Final PCP: Donnell Dooley MD PAST MEDICAL HISTORY Diagnosis Date Breast cancer (HCC) Left mastectomy. Right mastectomy. Bilateral reconstructions. No chemo/XRT. Cervical cancer (HCC) Remote. SOHEILA/BSO. No chemo or XRT. COPD (chronic obstructive pulmonary disease) (HCC) Gastroenteritis History of ileus Meniere's disease [facility]el[facility]. Meningioma (HCC) Mitral valve regurgitation Non Hodgkin's lymphoma (HCC) About 14 years ago. No XRT, chemotherapy. Watchful waiting. Osteoporosis Current Outpatient Medications Medication Sig rivastigmine tartrate (EXELON) 1.5 mg capsule Take 1 capsule by mouth twice daily. triamterene-hydroCHLOROthiazide (DYAZIDE) 37.5-25 mg per capsule Take 1 capsule by mouth once daily. meclizine (ANTIVERT) 25 mg tab nystatin (MYCOSTATIN) 100,000 unit/mL suspension three times daily. Cholecalciferol, Vitamin D3, 25 mcg (1,000 unit) cap Take 1,000 Units by mouth once daily. SYMBICORT 160-4.5 mcg/actuation inhaler Inhale 2 Puffs as instructed twice daily. VENTOLIN HFA 90 mcg/actuation inhaler Inhale 2 Puffs as instructed every 6 hours as needed for Wheezing/Shortness of Breath. OXYGEN, HOME THERAPY, Inhale 3 L/min as instructed as directed. tiotropium (SPIRIVA WITH HANDIHALER) 18 mcg inhalation capsule INHALE THE CONTENTS OF ONE CAPSULE VIA HANDIHALER ONCE DAILY Zinc 50 mg tab Take 50 mg by mouth once daily. ipratropium-albuterol (DUONEB) 0.5 mg-3 mg(2.5 mg base)/3 mL nebu Inhale 3 mL as instructed every 6hours as needed (wheezing/shortness of breath). CALCIUM ORAL Take 1 tablet by mouth once daily. MAGNESIUM ORAL Take 1 tablet by mouth once daily. calcium carbonate (TUMS ORAL) Take 1 tablet by mouth at bedtime as needed. No current facility-administered medications for this visit. ALLERGIES Allergen Reactions Augmentin [Amoxicil* Vomiting Codeine GI Upset, Vomiting Shellfish Containin* Swelling, Anaphylaxis, Shortness of Breath, Other: See Comments, Hives No serious trouble with recent re-introduction of shellfish into diet. Bacitracin Itching Latex Rash Freeman Swelling PAST SURGICAL HISTORY Procedure Laterality Date BREAST RECONSTRUCTION CATARACT EXTRACTION HX Bilateral 2011 CATARACT SURGERY, COMPLEX COLONOSCOPY W/BIOPSY SINGLE/MULTIPLE 10/12/2016 D&C DIAG &/OR THERAP, NOT OB EGD TRANSORAL BIOPSY SINGLE/MULTIPLE 10/12/2016 EGD W/O BRSH SPEC VARICIES INJ N/A HEMORRHOIDECTOMY MASTECTOMY HX Bilateral 1982 PAST SURGICAL HISTORY OF Bronchial artery embolization, left lung PAST SURGICAL HISTORY OF 2002 Lymph node removal on left arm SLING OPER STRES INCONTINENCE TOT ABDOMINL HYSTERECTOMY 1984 Physical Exam: OBJECTIVE: Constitutional: Pt is a well developed 82 year old female who is alert, oriented, cooperative and in no apparent distress. Eyes: Following during examination. No redness or drainage. Respiratory: RR normal and nonlabored. Even breathing. No evidence of distress. Psychology: Patient is engaged during conversation. Normal affect and mood. Does not appear depressed or anxious. NVSI unchanged from previous visit. Dermatological: Callus is noted to right hallux lateral aspect and medial aspect of right 2nd toe. Left hallux nail bed is now healed. Musculoskeletal/Orthopaedic: Patient has pain to palpation of right great toe at site of callus Moderate bunion is noted to right foot ASSESSMENT: (L84) Callus of foot (primary encounter diagnosis) (M20.11) Hallux valgus of right foot PLAN: Discussed callus of right great toe and right 2nd toe. Callus was reduced with 15 blade and dremmel. Continue with padding Left hallux nail bed is now healed Follow-up 4 weeks for callus debridement Danika Helms DPM * Denise Bowman LPN - 07/23/2022 10:29 AM EDT AMB ROOMING INTAKE FLOWSHEET DATA Pain Pain Level: 9 Pain Location: Other: See Comment (bilateral hallux) Description: Sore Duration Amount of Time: 2 Duration Units: Months Frequency: Intermittent Intervention/Comfort measure: Reposition, Relaxation Patient presents with: Right 2nd Toe - Corns, Established Patient, Follow Up Right Great Toe - Established Patient, Follow Up, Pain Left Great Toe - Established Patient, Follow Up, Ulcer, Pain Denise Bowman LPN documented in this encounterBarney Children'S Medical Center04-27-2023 History of Present illness Narrative* Danika Helms - 06/18/2022 12:40 PM EDT FOLLOW UP PODIATRIC OFFICE VISIT Chief Complaint: This 82 year old who presents for follow up:painful callus of right hallux. She isalso here for follow-up total nail matrixectomy of left hallux Patient presents to clinic for follow-up painful callus of right hallux. She uses band aide to prevent rubbing of great toe. She is also here for follow-up left hallux toenail matrixectomy. She has no pain. PAIN EVALUATION No data found in the last 1 encounters. Hemoglobin A1C Date Value Ref Range Status 09/16/2017 5.5 4.3 - 5.6 % Final PCP: Donnell Dooley MD PAST MEDICAL HISTORY Diagnosis Date Breast cancer (HCC) Left mastectomy. Right mastectomy. Bilateral reconstructions. No chemo/XRT. Cervical cancer (HCC) Remote. SOHEILA/BSO. No chemo or XRT. COPD (chronic obstructive pulmonary disease) (HCC) Gastroenteritis History of ileus Meniere's disease [facility]pe Candelaria ENT. Meningioma (HCC) Mitral valve regurgitation Non Hodgkin's lymphoma (HCC) About 14 years ago. No XRT, chemotherapy. Watchful waiting. Osteoporosis Current Outpatient Medications Medication Sig rivastigmine tartrate (EXELON) 1.5 mg capsule Take 1 capsule by mouth twice daily. triamterene-hydroCHLOROthiazide (DYAZIDE) 37.5-25 mg per capsule Take 1 capsule by mouth once daily. meclizine (ANTIVERT) 25 mg tab calcium carbonate (TUMS ORAL) Take 1 tablet by mouth at bedtime as needed. nystatin (MYCOSTATIN) 100,000 unit/mL suspension three times daily. Cholecalciferol, Vitamin D3, 25 mcg (1,000 unit) cap Take 1,000 Units by mouth once daily. SYMBICORT 160-4.5 mcg/actuation inhaler Inhale 2 Puffs as instructed twice daily. VENTOLIN HFA 90 mcg/actuation inhaler Inhale 2 Puffs as instructed every 6 hours as needed for Wheezing/Shortness of Breath. OXYGEN, HOME THERAPY, Inhale 3 L/min as instructed as directed. tiotropium (SPIRIVA WITH HANDIHALER) 18 mcg inhalation capsule INHALE THE CONTENTS OF ONE CAPSULE VIA HANDIHALER ONCE DAILY Zinc 50 mg tab Take 50 mg by mouth once daily. ipratropium-albuterol (DUONEB) 0.5 mg-3 mg(2.5 mg base)/3 mL nebu Inhale 3 mL as instructed every 6hours as needed (wheezing/shortness of breath). CALCIUM ORAL Take 1 tablet by mouth once daily. MAGNESIUM ORAL Take 1 tablet by mouth once daily. No current facility-administered medications for this visit. ALLERGIES Allergen Reactions Augmentin [Amoxicil* Vomiting Codeine GI Upset, Vomiting Shellfish Containin* Swelling, Anaphylaxis, Shortness of Breath, Other: See Comments, Hives No serious trouble with recent re-introduction of shellfish into diet. Bacitracin Itching Latex Rash Freeman Swelling PAST SURGICAL HISTORY Procedure Laterality Date BREAST RECONSTRUCTION CATARACT EXTRACTION HX Bilateral 2011 CATARACT SURGERY, COMPLEX COLONOSCOPY W/BIOPSY SINGLE/MULTIPLE 10/12/2016 D&C DIAG &/OR THERAP, NOT OB EGD TRANSORAL BIOPSY SINGLE/MULTIPLE 10/12/2016 EGD W/O BRSH SPEC VARICIES INJ N/A HEMORRHOIDECTOMY MASTECTOMY HX Bilateral 1982 PAST SURGICAL HISTORY OF Bronchial artery embolization, left lung PAST SURGICAL HISTORY OF 2002 Lymph node removal on left arm SLING OPER STRES INCONTINENCE TOT ABDOMINL HYSTERECTOMY 1984 Physical Exam: OBJECTIVE: Constitutional: Pt is a well developed 82 year old female who is alert, oriented, cooperative and in no apparent distress. Eyes: Following during examination. No redness or drainage. Respiratory: RR normal and nonlabored. Even breathing. No evidence of distress. Psychology: Patient is engaged during conversation. Normal affect and mood. Does not appear depressed or anxious. NVSI unchanged from previous visit. Dermatological: Right hallux has pre-ulcerative callus. No ulceration noted on exam other than a very small pinpoint opening. No signs of infectino Left hallux nail bed has dry eschar. This was reduced with dremmel and appearshealed Musculoskeletal/Orthopaedic: Patient has pain to palpation of right hallux and right 2nd toe where toes rub Moderate bunion is noted to right foot ASSESSMENT: (M20.11) Hallux valgus of right foot (primary encounter diagnosis) (L84) Callus of foot (S91.109A) Open wound of toe, initial encounter PLAN: Discussed the painful callus of right hallux. This is caused by rubbing between first and 2nd toe. Continue with padding. Callus was reduced with dremmel and 15 blade to right hallux. Left hallux nail bed appears to be healed. Small eschar of nail bed reduced with dremmel. F/u in 4 weeks for callus debridement. Patient is not interested in surgery for bunion/recurrent callus. * Tammy Daniel RN - 06/18/2022 11:38 AM EDT Patient presents with: Right Great Toe - Follow Up, Callous Daughter with patient. Here for callus debridement of R hallux. L hallux appears to be healing wellpost total nail removal. documented in this encounterBarney [facility]27[facility]23 Miscellaneous Notes* Telephone Encounter - Ronda Ruiz MA - 06/18/2022 11:51 AM EDT Patient present to podi appt. 06/18/22 with no complaints. Will close TE at this time. Ronda Ruiz MA * Telephone Encounter - Jennifer Holm LPN - 06/17/2022 2:37 PM EDT Left message for patient to call office and speak with nurse. * Telephone Encounter - Donnell Dooley MD - 06/17/2022 2:16 PM EDT If that severe, to ER * Telephone Encounter - Kaleigh Simmons RN - 06/17/2022 1:40 PM EDT Patient reports she saw Dr. Dooley recently on 06/15. Currently complaining of moderate lower abdominal pain, below naval in center. -rates pain 7-8/10 -denies fever, chills, sweats -notes urinary frequency today -has not taken any OTC medications. -no burning with urination -no foul urine odor -no blood in urine -no flank/back pain Patient asking if PCP can advise? Thank you. documented in this encounterBarney [facility]04-26-2023 Miscellaneous Notes* Telephone Encounter - Kaleigh Simmons RN - 06/17/2022 1:40 PM EDT Patient returned call and given provider's message below and patient verbalized understanding. Radha Simmons RN * Telephone Encounter - Stefanie Crawford Ma - 06/17/2022 1:29 PM EDT Left message for patient to call office back Stefanie Crawford Ma * Telephone Encounter - Donnell Dooley MD - 06/17/2022 12:27 PM EDT Cholesterol is still up. Watch diet. Calcium slightly up. Likely lab error. Kidney function looks like she is a little dry and k is low. Push fluids. Recheck labs in one week documented in this encounterBarney [facility]04-24-[facility]23 History of Past illness Narrative* Problem Noted Date Diagnosed Date Resolved Date Atrial fibrillation 06/15/2022 12/24/19 Last Assessment & Plan: Assessment: following [facility], records requested History of breast cancer in female 05/12/2017 03/24/2018 Epigastric pain 05/11/2016 12/20/2020 Chronic bronchitis Overview: Sees Dr. Antunez at [facility] documented as of this encounter (statuses as of 12/23/2022) [facility] History of Past illness Narrative* Problem Noted Date Diagnosed Date Resolved Date Atrial fibrillation 06/15/2022 12/24/19 Last Assessment & Plan: Assessment: following [facility], records requested History of breast cancer in female 05/12/2017 03/24/2018 Epigastric pain 05/11/2016 12/20/2020 Chronic bronchitis Overview: Sees Dr. Antunez at [facility] documented as of this encounter (statuses as of 12/24/2022) [facility] History of Past illness Narrative* Problem Noted Date Diagnosed Date Resolved Date Atrial fibrillation 06/15/2022 12/24/19 Last Assessment & Plan: Assessment: following [facility], records requested History of breast cancer in female 05/12/2017 03/24/2018 Epigastric pain 05/11/2016 12/20/2020 Chronic bronchitis Overview: Sees Dr. Antunez at [facility] documented as of this encounter (statuses as of 01/27/2023) [facility] History of Past illness Narrative* Problem Noted Date Diagnosed Date Resolved Date Atrial fibrillation 06/15/2022 12/24/19 Last Assessment & Plan: Assessment: following [facility], records requested History of breast cancer in female 05/12/2017 03/24/2018 Epigastric pain 05/11/2016 12/20/2020 Chronic bronchitis 3 Overview: Sees Dr. Antunez at [facility] documented as of this encounter (statuses as of 04/02/2023) [facility] of Past illness Narrative* Problem Noted Date Diagnosed Date Resolved Date Atrial fibrillation 06/15/2022 12/24/19 Last Assessment & Plan: Assessment: following [facility], records requested History of breast cancer in female 05/12/2017 03/24/2018 Epigastric pain 05/11/2016 12/20/2020 Chronic bronchitis Overview: Sees Dr. Antunez at [facility] documented as of this encounter (statuses as of 04/03/2023) [facility] of Past illness Narrative* Problem Noted Date Diagnosed Date Resolved Date Atrial fibrillation 06/15/2022 12/24/19 Last Assessment & Plan: Assessment: following [facility], records requested History of breast cancer in female 05/12/2017 03/24/2018 Epigastric pain 05/11/2016 12/20/2020 Chronic bronchitis Overview: Sees Dr. Antunez at [facility] documented as of this encounter (statuses as of 04/07/2023) [facility] of Past illness Narrative* Problem Noted Date Diagnosed Date Resolved Date Atrial fibrillation 06/15/2022 12/24/19 Last Assessment & Plan: Assessment: following [facility], records requested History of breast cancer in female 05/12/2017 03/24/2018 Epigastric pain 05/11/2016 12/20/2020 Chronic bronchitis Overview: Sees Dr. Antunez at [facility] documented as of this encounter (statuses as of 04/07/2023) [facility] of Past illness Narrative* Problem Noted Date Diagnosed Date Resolved Date Atrial fibrillation 06/15/2022 12/24/19 Last Assessment & Plan: Assessment: following [facility], records requested History of breast cancer in female 05/12/2017 03/24/2018 Epigastric pain 05/11/2016 12/20/2020 Chronic bronchitis Overview: Sees Dr. Antunez at [facility] documented as of this encounter (statuses as of 05/05/2023) [facility] of Past illness Narrative* Problem Noted Date Diagnosed Date Resolved Date Atrial fibrillation 06/15/2022 12/24/19 Last Assessment & Plan: Assessment: following [facility], records requested History of breast cancer in female 05/12/2017 03/24/2018 Epigastric pain 05/11/2016 12/20/2020 Chronic bronchitis 3 Overview: Sees Dr. Antunez at [facility] documented as of this encounter (statuses as of 05/14/2023) [facility] of Past illness Narrative* Problem Noted Date Diagnosed Date Resolved Date Atrial fibrillation 06/15/2022 12/24/19 Last Assessment & Plan: Assessment: following [facility], records requested History of breast cancer in female 05/12/2017 03/24/2018 Epigastric pain 05/11/2016 12/20/2020 Chronic bronchitis 3 Overview: Sees Dr. Antunez at [facility] documented as of this encounter (statuses as of 05/14/2023) [facility] of Past illness Narrative* Problem Noted Date Diagnosed Date Resolved Date Atrial fibrillation 06/15/2022 12/24/19 Last Assessment & Plan: Assessment: following [facility], records requested History of breast cancer in female 05/12/2017 03/24/2018 Epigastric pain 05/11/2016 12/20/2020 Chronic bronchitis 3 Overview: Sees Dr. Antunez at [facility] documented as of this encounter (statuses as of 05/18/2023) [facility] of Past illness Narrative* Problem Noted Date Diagnosed Date Resolved Date Atrial fibrillation 06/15/2022 12/24/19 Last Assessment & Plan: Assessment: following [facility], records requested History of breast cancer in female 05/12/2017 03/24/2018 Epigastric pain 05/11/2016 12/20/2020 Chronic bronchitis Overview: Sees Dr. Antunez at [facility] documented as of this encounter (statuses as of 05/18/2023) [facility] History of Present illness Narrative* Donnell Dooley MD - 06/15/2022 10:03 AM EDT Patient presents with: 6 Month Exam HPI: Patient presents today for office visit for follow up. HTN: Does not monitor BP No chest pain No new shortness of breath. Hx of COPD No edema Intermittent palpitations. Followed by Cardiology No syncope No headaches Some dizziness. Takes meclizine prn Followed by Pulm. Dr. Antunez. Her breathing is actually doing better. Not having to use her rescue meds as much. Wears oxygen at hs Saw Neurology once. Tolerating Rivastigmine. Short term memory is not good. Saw pain management. Pain is doing well. Sees Dr. Barfield for her gi issues. MEDICATIONS: Current Outpatient Medications Medication Sig triamterene-hydroCHLOROthiazide (DYAZIDE) 37.5-25 mg per capsule meclizine (ANTIVERT) 25 mg tab rivastigmine tartrate (EXELON) 1.5 mg capsule Take 1 capsule by mouth twice daily. calcium carbonate (TUMS ORAL) Take 1 tablet by mouth at bedtime as needed. nystatin (MYCOSTATIN) 100,000 unit/mL suspension three times daily. Cholecalciferol, Vitamin D3, 25 mcg (1,000 unit) cap Take 1,000 Units by mouth once daily. SYMBICORT 160-4.5 mcg/actuation inhaler Inhale 2 Puffs as instructed twice daily. VENTOLIN HFA 90 mcg/actuation inhaler Inhale 2 Puffs as instructed every 6 hours as needed for Wheezing/Shortness of Breath. OXYGEN, HOME THERAPY, Inhale 3 L/min as instructed as directed. tiotropium (SPIRIVA WITH HANDIHALER) 18 mcg inhalation capsule INHALE THE CONTENTS OF ONE CAPSULE VIA HANDIHALER ONCE DAILY Zinc 50 mg tab Take 50 mg by mouth once daily. ipratropium-albuterol (DUONEB) 0.5 mg-3 mg(2.5 mg base)/3 mL nebu Inhale 3 mL as instructed every 6hours as needed (wheezing/shortness of breath). CALCIUM ORAL Take 1 tablet by mouth once daily. MAGNESIUM ORAL Take 1 tablet by mouth once daily. No current facility-administered medications for this visit. ALLERGIES: ALLERGIES Allergen Reactions Augmentin [Amoxicil* Vomiting Codeine GI Upset, Vomiting Shellfish Containin* Swelling, Anaphylaxis, Shortness of Breath, Other: See Comments, Hives No serious trouble with recent re-introduction of shellfish into diet. Bacitracin Itching Latex Rash Freeman Swelling PAST MEDICAL HISTORY Diagnosis Date Breast cancer (HCC) Left mastectomy. Right mastectomy. Bilateral reconstructions. No chemo/XRT. Cervical cancer (HCC) Remote. SOHEILA/BSO. No chemo or XRT. COPD (chronic obstructive pulmonary disease) (HCC) Gastroenteritis History of ileus Meniere's disease Dr. Mendosa, [facility]. Meningioma (HCC) Mitral valve regurgitation Non Hodgkin's lymphoma (HCC) About 14 years ago. No XRT, chemotherapy. Watchful waiting. Osteoporosis PAST SURGICAL HISTORY Procedure Laterality Date BREAST RECONSTRUCTION CATARACT EXTRACTION HX Bilateral 2011 CATARACT SURGERY, COMPLEX COLONOSCOPY W/BIOPSY SINGLE/MULTIPLE 10/12/2016 D&C DIAG &/OR THERAP, NOT OB EGD TRANSORAL BIOPSY SINGLE/MULTIPLE 10/12/2016 EGD W/O BRSH SPEC VARICIES INJ N/A HEMORRHOIDECTOMY MASTECTOMY HX Bilateral 1982 PAST SURGICAL HISTORY OF Bronchial artery embolization, left lung PAST SURGICAL HISTORY OF 2002 Lymph node removal on left arm SLING OPER STRES INCONTINENCE TOT ABDOMINL HYSTERECTOMY 1984 FAMILY HISTORY Problem Relation Age of Onset Alzheimer's Disease Mother in her 80s. Aneurysm Father AAA at age 61. other (Chronic bronchitis.) Father other (Other) Brother Parkinson's vs [place]'s. age 61. other (Other) Other Meningioma: multiple cousins Social History Tobacco Use Smoking status: Former Packs/day: 1.00 Years: 30.00 Pack years: 30.00 Types: Cigarettes Quit date: 02/22/1999 Years since quittin.3 Smokeless tobacco: Never Tobacco comments: Father smoked in childhood home. Vaping Use Vaping Use: Never used Substance Use Topics Alcohol use: Yes Alcohol/week: 4.0 standard drinks Types: 4 Glasses of Wine (5oz) per week Comment: With dinner. Drug use: No Reviewed current medications, allergies, past medical history, surgical history, family history andsocial history today. REVIEW OF SYSTEMS No falls. No issues with urine or bowels. No falls. All other reviewed and negative other than HPI. HEALTH MAINTENANCE: Reviewed health maintenance issues today and recommended the following in detail. ADVANCE DIRECTIVE DISCUSSION - on file. DEPRESSION ASSESSMENT - done VITALS: BP 120/72 Pulse 60 Ht 152.4 cm (5') Wt 42.4 kg (93 lb 6.4 oz) SpO2 97% BMI 18.24 kg/m Last 4 Encounter Wt Readings: Date: Wt: 03/16/2022 40 kg (88 lb 3.2 oz) 12/09/2021 40.1 kg (88 lb 6.4 oz) 09/04/2021 44 kg (97 lb) 08/04/2021 43.5 kg (96 lb) PHYSICAL EXAMINATION: General appearance: Well appearing, alert, in no acute distress, well-hydrated, well nourished. Skin: Skin color, texture, turgor normal, no suspicious rashes or lesions Head: Normocephalic, no masses, lesions, tenderness or abnormalitie Lungs: Lungs clear to auscultation. No wheezing, rhonchi, rales Heart: RRR without murmur, gallop, or rubs. No ectopy Abdomen: Normal abdominal exam, Abdomen soft, non-tender. Bowel sounds normal. No masses, organomegaly Extremities: No deformities, edema, skin discoloration, clubbing or cyanosis. Good capillary refill. Musculoskeletal: No joint swelling, deformity, or tenderness ASSESSMENT/PLAN: 1. Meningioma (HCC) - ICD9: 225.2, ICD10: D32.9 (primary diagnosis) - stable. Had mri last year. 2. Small B-cell lymphoma, unspecified body region (HCC) - ICD9: 200.80, ICD10: C83.00 - has been dong well. 3. Pulmonary emphysema, unspecified emphysema type (HCC) - ICD9: 492.8, ICD10: J43.9 - stable. 4. Chronic respiratory failure with hypoxia (HCC) - ICD9: 518.83, 799.02, ICD10: J96.11 - uses oxygen at hs. 5. Atrial fibrillation, unspecified type (HCC) - ICD9: 427.31, ICD10: I48.91 Overdue for repeat follow up with cardiology. 6. Mild cognitive impairment - ICD9: 331.83, ICD10: G31.84 - stable. 7. MVP (mitral valve prolapse) - ICD9: 424.0, ICD10: I34.1 - per cardiology 8. Age-related osteoporosis without current pathological fracture - ICD9: 733.01, ICD10: M81.0 - check vit d. Hold on scan given her agel Donnell Dooley MD documented in this encounterBarney [facility]03-29-2023 Miscellaneous Notes* Telephone Encounter - Jennifer Holm LPN - 05/20/2022 1:23 PM EDT Completed and faxed. * Telephone Encounter - Parish Correia LPN - 05/19/2022 10:40 AM EDT Type of form: Physical Therapy Orders Form received via fax When form is completed, Fax form to [phone] Form has been forwarded to Physician Mailbox: Dr. Soumya Correia LPN documented in this encounterBarney [facility]'S [facility]03-23-2023 History of Present illness Narrative* Danika Helms - 05/14/2022 1:49 PM EDT FOLLOW UP PODIATRIC OFFICE VISIT Chief Complaint: This 81 year old who presents for follow up:left hallux toenail removal Patient presents to clinic for follow-up left hallux toenail removal Patient denies any pain Denies any drainage Continues with local wound care PAIN EVALUATION No data found in the last 1 encounters. Hemoglobin A1C Date Value Ref Range Status 09/16/2017 5.5 4.3 - 5.6 % Final PCP: Donnell Dooley MD PAST MEDICAL HISTORY Diagnosis Date Breast cancer (HCC) Left mastectomy. Right mastectomy. Bilateral reconstructions. No chemo/XRT. Cervical cancer (HCC) Remote. SOHEILA/BSO. No chemo or XRT. COPD (chronic obstructive pulmonary disease) (HCC) Gastroenteritis History of ileus Meniere's disease [facility]. Meningioma (HCC) Mitral valve regurgitation Non Hodgkin's lymphoma (HCC) About 14 years ago. No XRT, chemotherapy. Watchful waiting. Osteoporosis Current Outpatient Medications Medication Sig meclizine (ANTIVERT) 25 mg tab rivastigmine tartrate (EXELON) 1.5 mg capsule Take 1 capsule by mouth twice daily. calcium carbonate (TUMS ORAL) Take 1 tablet by mouth at bedtime as needed. nystatin (MYCOSTATIN) 100,000 unit/mL suspension three times daily. Cholecalciferol, Vitamin D3, 25 mcg (1,000 unit) cap Take 1,000 Units by mouth once daily. SYMBICORT 160-4.5 mcg/actuation inhaler Inhale 2 Puffs as instructed twice daily. VENTOLIN HFA 90 mcg/actuation inhaler Inhale 2 Puffs as instructed every 6 hours as needed for Wheezing/Shortness of Breath. OXYGEN, HOME THERAPY, Inhale 3 L/min as instructed as directed. tiotropium (SPIRIVA WITH HANDIHALER) 18 mcg inhalation capsule INHALE THE CONTENTS OF ONE CAPSULE VIA HANDIHALER ONCE DAILY Zinc 50 mg tab Take 50 mg by mouth once daily. ipratropium-albuterol (DUONEB) 0.5 mg-3 mg(2.5 mg base)/3 mL nebu Inhale 3 mL as instructed every 6hours as needed (wheezing/shortness of breath). fluticasone (FLONASE) 50 mcg/actuation nasal spray Use 1 [place] in each nostril once daily. CALCIUM ORAL Take 1 tablet by mouth once daily. MAGNESIUM ORAL Take 1 tablet by mouth once daily. benzonatate (TESSALON PERLE) 100 mg capsule Take 1 capsule by mouth three times daily as needed. (Patient not taking: No sig reported) No current facility-administered medications for this visit. ALLERGIES Allergen Reactions Augmentin [Amoxicil* Vomiting Codeine GI Upset, Vomiting Shellfish Containin* Swelling, Anaphylaxis, Shortness of Breath, Other: See Comments, Hives No serious trouble with recent re-introduction of shellfish into diet. Bacitracin Itching Latex Rash Freeman Swelling PAST SURGICAL HISTORY Procedure Laterality Date BREAST RECONSTRUCTION CATARACT EXTRACTION HX Bilateral 2011 CATARACT SURGERY, COMPLEX COLONOSCOPY W/BIOPSY SINGLE/MULTIPLE 10/12/2016 D&C DIAG &/OR THERAP, NOT OB EGD TRANSORAL BIOPSY SINGLE/MULTIPLE 10/12/2016 EGD W/O BRSH SPEC VARICIES INJ N/A HEMORRHOIDECTOMY MASTECTOMY HX Bilateral 1982 PAST SURGICAL HISTORY OF Bronchial artery embolization, left lung PAST SURGICAL HISTORY OF 2002 Lymph node removal on left arm SLING OPER STRES INCONTINENCE TOT ABDOMINL HYSTERECTOMY 1984 Physical Exam: OBJECTIVE: Constitutional: Pt is a well developed 81 year old female who is alert, oriented, cooperative and in no apparent distress. Eyes: Following during examination. No redness or drainage. Respiratory: RR normal and nonlabored. Even breathing. No evidence of distress. Psychology: Patient is engaged during conversation. Normal affect and mood. Does not appear depressed or anxious. NVSI unchanged from previous visit. Dermatological: Left hallux toenail has been removed. Nail bed appears to be healing without signs of infection Small callus of right medial 2nd toe. No ulceration noted. Musculoskeletal/Orthopaedic: Patient has no pain to palpation of b/l feet ASSESSMENT: Open wound of toe, initial encounter (primary encounter diagnosis) PLAN: Left hallux appears to be healling s/p total nail matrixectomy Continue with local wound care until toe is completely healed Continue with toe spacer to prevent rubbing between toes Follow-up in one month for callus. Callus reduced with dremmel. Danika Helms DPM * Denise Bowman LPN - 05/14/2022 1:08 PM EDT AMB ROOMING INTAKE FLOWSHEET DATA Patient presents with: Left Great Toe - Established Patient, Follow Up, Ingrown Toenail 2 week follow nail removal Left great toe. Denise Bowman LPN documented in this encounterBarney Children'[facility]03-23-2023 Instructions* Patient Instructions* Danika Helms - 05/14/2022 1:45 PM EDT Your wound appears to be healing Continue with soaks for 1-2 more weeks or until healed Call if any issues arise documented in this encounterBarney Children'S [facility] Center03-09-2023 History of Present illness Narrative* Sherron Warren RN - 04/30/2022 11:31 AM EST Patient's wound irrigated with saline and dressed with bacitracin, non adherent gauze and coban. Post-op nail care reviewed with patient and printed copy provided. Patient verbalized understanding atthis time. * Sherron Warren RN - 04/30/2022 9:08 AM EST UNIVERSAL PROTOCOL / SAFETY CHECKLIST Procedure to be Performed: Total nail matrixectomy, left hallux Sign In: A Moment of CARE was completed. Personnel directly involved with the procedure wore the appropriate PPE (Personal Protective Equipment). Special equipment: Nail kit Patient/Surrogate Stated/Verified: PATIENT VERIFIED(optional for EMERGENT procedures): Patient name, Date of , Relevant allergies, and The intended procedure Time Out Communication: Intended patient and procedure match the source documents. Consent documented and matches the intended procedure. No relevant labs, photos, and/or imaging studies were applicable for review. Correct side/site marked and visible. Medications required for procedure verified. No fire risk assessment and interventions applicable. No implant(s) inserted. Sign Out: SIGN OUT (optional for EMERGENT procedures): No specimen collected. All instruments, equipment, possible retained foreign bodies accounted for. Post-procedure follow-up management communicated and Plan of Care Visit completed when applicable. Sherron Warren RN * Danika Helms - 04/30/2022 9:06 AM EST FOLLOW UP PODIATRIC OFFICE VISIT Chief Complaint: This 81 year old who presents for follow up:painful deformed toenail of left hallux. Also complains of painful callus of right hallux Patient presents to clinic for follow-up painful toenail of left hallux. The nail is deformed, dystrophic and painful. She is here to have the nail removed She also complains of painful callus of right hallux. She is here for debridement. She does use gelpadding which does help. PAIN EVALUATION No data found in the last 1 encounters. Hemoglobin A1C Date Value Ref Range Status 09/16/2017 5.5 4.3 - 5.6 % Final PCP: Donnell Dooley MD PAST MEDICAL HISTORY Diagnosis Date Breast cancer (HCC) Left mastectomy. Right mastectomy. Bilateral reconstructions. No chemo/XRT. Cervical cancer (HCC) Remote. SOHEILA/BSO. No chemo or XRT. COPD (chronic obstructive pulmonary disease) (HCC) Gastroenteritis History of ileus Meniere's disease Dr. Mendosa, [facility]. Meningioma (HCC) Mitral valve regurgitation Non Hodgkin's lymphoma (HCC) About 14 years ago. No XRT, chemotherapy. Watchful waiting. Osteoporosis Current Outpatient Medications Medication Sig meclizine (ANTIVERT) 25 mg tab rivastigmine tartrate (EXELON) 1.5 mg capsule Take 1 capsule by mouth twice daily. calcium carbonate (TUMS ORAL) Take 1 tablet by mouth at bedtime as needed. nystatin (MYCOSTATIN) 100,000 unit/mL suspension three times daily. Cholecalciferol, Vitamin D3, 25 mcg (1,000 unit) cap Take 1,000 Units by mouth once daily. SYMBICORT 160-4.5 mcg/actuation inhaler Inhale 2 Puffs as instructed twice daily. VENTOLIN HFA 90 mcg/actuation inhaler Inhale 2 Puffs as instructed every 6 hours as needed for Wheezing/Shortness of Breath. OXYGEN, HOME THERAPY, Inhale 3 L/min as instructed as directed. tiotropium (SPIRIVA WITH HANDIHALER) 18 mcg inhalation capsule INHALE THE CONTENTS OF ONE CAPSULE VIA HANDIHALER ONCE DAILY Zinc 50 mg tab Take 50 mg by mouth once daily. ipratropium-albuterol (DUONEB) 0.5 mg-3 mg(2.5 mg base)/3 mL nebu Inhale 3 mL as instructed every 6hours as needed (wheezing/shortness of breath). fluticasone (FLONASE) 50 mcg/actuation nasal spray Use 1 [place] in each nostril once daily. CALCIUM ORAL Take 1 tablet by mouth once daily. MAGNESIUM ORAL Take 1 tablet by mouth once daily. benzonatate (TESSALON PERLE) 100 mg capsule Take 1 capsule by mouth three times daily as needed. (Patient not taking: No sig reported) No current facility-administered medications for this visit. ALLERGIES Allergen Reactions Augmentin [Amoxicil* Vomiting Codeine GI Upset, Vomiting Shellfish Containin* Swelling, Anaphylaxis, Shortness of Breath, Other: See Comments, Hives No serious trouble with recent re-introduction of shellfish into diet. Bacitracin Itching Latex Rash Freeman Swelling PAST SURGICAL HISTORY Procedure Laterality Date BREAST RECONSTRUCTION CATARACT EXTRACTION HX Bilateral 2011 CATARACT SURGERY, COMPLEX COLONOSCOPY W/BIOPSY SINGLE/MULTIPLE 10/12/2016 D&C DIAG &/OR THERAP, NOT OB EGD TRANSORAL BIOPSY SINGLE/MULTIPLE 10/12/2016 EGD W/O BRSH SPEC VARICIES INJ N/A HEMORRHOIDECTOMY MASTECTOMY HX Bilateral 1982 PAST SURGICAL HISTORY OF Bronchial artery embolization, left lung PAST SURGICAL HISTORY OF 2002 Lymph node removal on left arm SLING OPER STRES INCONTINENCE TOT ABDOMINL HYSTERECTOMY 1984 Physical Exam: OBJECTIVE: Constitutional: Pt is a well developed 81 year old female who is alert, oriented, cooperative and in no apparent distress. Eyes: Following during examination. No redness or drainage. Respiratory: RR normal and nonlabored. Even breathing. No evidence of distress. Psychology: Patient is engaged during conversation. Normal affect and mood. Does not appear depressed or anxious. Vascular: DP and PT pulses are faintly palpable b/l. CFT is brisk. Pulses are audible with doppler. Non-Invasive [facility] Lower Extremity Arterial Physiology Study Bilateral/Complete Date of service/time: 05/05/2021 8:59:09 AM Name: MRS. MADISON LOFTON Date of : 1940 Age: 80 years Gender: F Clinical Indication Abnormal pulses and pre surgical evaluation. TECHNIQUE -------- An arterial physiological examination was performed, including measurement of blood pressures using continuous wave Doppler and recording of plethysmographic with or without Doppler waveforms at the below-mentioned limb segments. FINDINGS -------- RIGHT SIDE AT REST Right Doppler Waveforms Dorsalis pedis: Biphasic. Post tibial: Triphasic. Right Pressures Brachial: 116 mmHg Ankle dorsalis pedis: 208 mmHg CARINE: 1.64 Partially non-compressible arteries. Ankle posterior tibial: 169 mmHg CARINE: 1.33 Digit: 89 mmHg Right PVR Waveforms Ankle: Normal. Digit: Normal. LEFT SIDE AT REST Left Doppler Waveforms Dorsalis pedis: Biphasic. Post tibial: Biphasic. Left Pressures Brachial: 127 mmHg Ankle dorsalis pedis: 150 mmHg CARINE: 1.18 Ankle posterior tibial: 144 mmHg CARINE: 1.13 Digit: 89 mmHg Left PVR Waveforms Ankle: Normal. Digit: Normal. IMPRESSION RIGHT SIDE Resting right ankle brachial index: 1.64 Partially non-compressible arteries, CARINE not accurate. Right toe brachial index: 0.70 Non-compressible vessels, results called by PVR tracings. Normal toe brachial index at rest in the right leg. Right ankle: Normal at rest. LEFT SIDE Resting left ankle brachial index: 1.18 Left toe brachial index: 0.70 Normal ankle brachial index at rest in the left leg. Normal toe brachial index at rest in the left leg. Left ankle: Normal at rest. Technologist: Eugenia Wang RVT, [facility] Ordering physician: DANIKA HELMS Interpreting physician: AMINA Hart DO Dermatological: Left hallux toenail is deformed, thick, discolored, painful. Callus without ulceration to right hallux Musculoskeletal/Orthopaedic: Patient has pain to palpation of left hallux nail plate Pateint has bunion deformity of right foot ASSESSMENT: (B35.1) Onychomycosis (primary encounter diagnosis) (M20.11) Hallux valgus of right foot (L84) Callus of foot PLAN: Discussed the left hallux toenail. It is deformed and discolored. We discussed various etiologies not limited to fungus, possible past trauma or in some rare cases, malignancy. I discussed removal ofthe nail, sending nail for evaluation and possibly arranging nail bed sample. She elected to just proceed with removal of the nail with matrixectomy. I discussed risks of this procedure not limited to infection, pain, swelling, bleeding, slow wound healing, nail bed laceration, loss of toe. Patientconsents to proceed with nail removal. I had long review in presence of my nursing staff regarding circulation to her toes. I reviewed pvrfrom april 2021. She has normal carine on left foot and normal tbi. I used doppler today and pulses were audible. I offered repeat pvr. She declined this. She understands if she does not have adequate perfusion, she could be at risk of losing her toe. She understands this. She consents to proceed withtotal nail matrixectomy. Discussed risks of toenail procedure not limited to infection, pain, swelling, bleeding, painful scarring, recurrence, need for revised procedure. Patient consented to proceed. Patient was properly identified by name and procedure. The left hallux was then injected with 3 cc of 1% lidocaine plain. The toe was then prepped and draped in the usual aseptic technique. A digital tournicot was applied to the toe. The entire nail was then freed and removed. Careful inspection was performed to assure no remaining spicule present. 3 applications of phenol were then administered x 30 seconds each followed by alcohol rinse. Sterile dressing was then applied consisting of amerigel, guaze, corbin and venita n. Tournicot was removed and hyperemic response was noted. Patient tolerated well. Patient will f/uin 2 weeks. Callus was reduced to right hallux with 15 blade and dremmel. Danika Helms DPM * Denise Bowman LPN - 04/30/2022 8:18 AM EST AMB ROOMING INTAKE FLOWSHEET DATA Patient presents with: Left Foot - Established Patient, Follow Up, removal of nail Right Foot - Established Patient, Follow Up, Callous Patient presents to office for removal of left great toe toenail and shaving callous on right foot. Denise Bowman LPN documented in this encounterBarney [facility]03-09-2023 Instructions* Patient Instructions* Sherron Warren RN - 04/30/2022 9:09 AM EST Post-Op Nail Instructions Minimize activity until the anesthesia wears off (about 2-8 hours). Increase activity to tolerance Remove bandage tomorrow Soak affected toe/foot in epsom salts for 15-20 minutes twice daily After soaking, apply antibiotic ointment (OTC Neosporin) to affected toe and re bandage OTC Ibuprofen if having pain, provided you have no allergies or intolerance to NSAIDS Mild drainage, redness, and blood is expected, but if you expeirence severe pain, increase in drainage, swelling, or red streaking please contact our office immediately Feel free to contact office as well if you have any questions/concerns [phone], ask for Podiatry Nurse documented in this encounterBarney Children'[facility]02-22-2023 Miscellaneous Notes* Telephone Encounter - Guera Roy RN - 04/15/2022 12:03 PM EST calls to report that patient isn't feeling well. Currently lying down because she has pain,numbness, and weakness to left side of face neck, extending into left arm. Nurse triage completed. Protocol recommends call EMS now. agrees and will hang up and call 911 immediately. Reason for Disposition [1] Numbness (i.e., loss of sensation) of the face, arm / hand, or leg / foot on one side of the body AND [2] sudden onset AND [3] present now Answer Assessment - Initial Assessment Questions 1. SYMPTOM: calls to report that patient is not not feeling well today. Symptoms started inthe night. Patient is complaining of pain to left side of face with numbness and weakness that extends in to neck and left arm. 2. ONSET: In the night while sleeping. Patient woke up and felt off. 3. LAST NORMAL: Yesterday 4. PATTERN Constant since started and present now 5. CARDIAC SYMPTOMS: Denies chest pain, difficulty breathing, or palpitation 6. NEUROLOGIC SYMPTOMS: Reports dizziness and off balance but also has Meniere's disease 7. OTHER SYMPTOMS: Just feels off. Protocols used: Neurologic [id number] documented in this encounterBarney Children'[facility]02-04-2023 History of Present illness Narrative* Danika Helms - 03/28/2022 2:08 PM EST FOLLOW UP PODIATRIC OFFICE VISIT Chief Complaint: This 81 year old who presents for follow up:callus/preulcerative lesion of right hallux Patient presents to clinic for follow-up callus/pre-ulcerative lesion of right hallux She has been using padding and this helps No other complaints. PAIN EVALUATION 03/25/2022 1106 Pain Level: 4 Pain Location: Foot-Right Frequency: Intermittent Intervention/Comfort measure: Reposition;Distractions;Relaxation Hemoglobin A1C Date Value Ref Range Status 09/16/2017 5.5 4.3 - 5.6 % Final PCP: Donnell Dooley MD PAST MEDICAL HISTORY Diagnosis Date Breast cancer (HCC) Left mastectomy. Right mastectomy. Bilateral reconstructions. No chemo/XRT. Cervical cancer (HCC) Remote. SOHEILA/BSO. No chemo or XRT. COPD (chronic obstructive pulmonary disease) (HCC) Gastroenteritis History of ileus Meniere's disease [facility]. Meningioma (HCC) Mitral valve regurgitation Non Hodgkin's lymphoma (HCC) About 14 years ago. No XRT, chemotherapy. Watchful waiting. Osteoporosis Current Outpatient Medications Medication Sig rivastigmine tartrate (EXELON) 1.5 mg capsule Take 1 capsule by mouth twice daily. calcium carbonate (TUMS ORAL) Take 1 tablet by mouth at bedtime as needed. nystatin (MYCOSTATIN) 100,000 unit/mL suspension three times daily. Cholecalciferol, Vitamin D3, 25 mcg (1,000 unit) cap Take 1,000 Units by mouth once daily. SYMBICORT 160-4.5 mcg/actuation inhaler Inhale 2 Puffs as instructed twice daily. VENTOLIN HFA 90 mcg/actuation inhaler Inhale 2 Puffs as instructed every 6 hours as needed for Wheezing/Shortness of Breath. OXYGEN, HOME THERAPY, Inhale 3 L/min as instructed as directed. tiotropium (SPIRIVA WITH HANDIHALER) 18 mcg inhalation capsule INHALE THE CONTENTS OF ONE CAPSULE VIA HANDIHALER ONCE DAILY Zinc 50 mg tab Take 50 mg by mouth once daily. ipratropium-albuterol (DUONEB) 0.5 mg-3 mg(2.5 mg base)/3 mL nebu Inhale 3 mL as instructed every 6hours as needed (wheezing/shortness of breath). fluticasone (FLONASE) 50 mcg/actuation nasal spray Use 1 [place] in each nostril once daily. CALCIUM ORAL Take 1 tablet by mouth once daily. MAGNESIUM ORAL Take 1 tablet by mouth once daily. benzonatate (TESSALON PERLE) 100 mg capsule Take 1 capsule by mouth three times daily as needed. (Patient not taking: No sig reported) No current facility-administered medications for this visit. ALLERGIES Allergen Reactions Augmentin [Amoxicil* Vomiting Codeine GI Upset, Vomiting Shellfish Containin* Swelling, Anaphylaxis, Shortness of Breath, Other: See Comments, Hives No serious trouble with recent re-introduction of shellfish into diet. Bacitracin Itching Latex Rash Freeman Swelling PAST SURGICAL HISTORY Procedure Laterality Date BREAST RECONSTRUCTION CATARACT EXTRACTION HX Bilateral 2011 CATARACT SURGERY, COMPLEX COLONOSCOPY W/BIOPSY SINGLE/MULTIPLE 10/12/2016 D&C DIAG &/OR THERAP, NOT OB EGD TRANSORAL BIOPSY SINGLE/MULTIPLE 10/12/2016 EGD W/O BRSH SPEC VARICIES INJ N/A HEMORRHOIDECTOMY MASTECTOMY HX Bilateral 1982 PAST SURGICAL HISTORY OF Bronchial artery embolization, left lung PAST SURGICAL HISTORY OF 2002 Lymph node removal on left arm SLING OPER STRES INCONTINENCE TOT ABDOMINL HYSTERECTOMY 1984 Physical Exam: OBJECTIVE: Constitutional: Pt is a well developed 81 year old female who is alert, oriented, cooperative and in no apparent distress. Eyes: Following during examination. No redness or drainage. Respiratory: RR normal and nonlabored. Even breathing. No evidence of distress. Psychology: Patient is engaged during conversation. Normal affect and mood. Does not appear depressed or anxious. NVSI unchanged from previous visit. Dermatological: Pre-ulcerative lesion of right hallux. Upon debridement, there is superficial, noninfected ulceration about 1 mm. No deep extension. Musculoskeletal/Orthopaedic: Patient has no pain to palpation of right foot There is mild to moderate bunion of right foot ASSESSMENT: (M20.11) Hallux valgus of right foot (primary encounter diagnosis) (L84) Callus of foot (L97.511) Ulcer of toe of right foot, limited to breakdown of skin (HCC) PLAN: Patient presents to clinic for follow-up painful callus of right hallux. The cause of callus again discussed with patient . Cause of callus is related to hallux valgus deformity rubbing on 2nd toe. The callus was debrided today with 15 blade and tissue nippers. Upon debridement, there is a very small opening, about 1 mm in diameter but this does not extend past the superficial layer of skin. There are no signs of infection. I discussed with patient that this callus is a pre-ulcerative lesion and if left untreated can leadto deep sore which could place her at risk of infection. Her options include padding and periodic debridement vs bunion correction vs 2nd toe amputation. Patient is not interested in surgery. She has elected for conservaive care Small wound of right hallux debrided with 15 blade. Total debridement is approximately 1 mm in diameter. I want her to continue with padding. If she develops any issues, she is to contact this office F/u in 1 month Danika Helms DPM * Sherron Warren RN - 03/25/2022 11:06 AM EST AMB ROOMING INTAKE FLOWSHEET DATA Pain Pain Level: 4 Pain Location: Foot-Right Frequency: Intermittent Intervention/Comfort measure: Reposition, Distractions, Relaxation Patient presents with: Right Foot - Established Patient, Follow Up, Pain, Callous Patient presents for 4 week follow up of right foot pain and callus. documented in this encounterBarney [facility]01-23-2023 History of Present illness Narrative* Patsy Valencia APRN.MARKER MACHINE - 03/16/2022 10:44 AM EST CC: Patient presents with: Cough: Cough, wheezing, fatigue, dizziness x 2 weeks Patient does have a history of M ni re's to the dizziness is related to that. Patient did have a follow-up for her annual appointment for the M ni re's disease today but canceled due to not feeling well. HPI: Madison Lofton is a 81 year old female who presents to the office with complaint of cough, nonproductive and wheezing for 2 weeks. Symptoms are staying the same. Associated symptoms includes fatigue. Denies fever, dyspnea, nausea, vomiting , and diarrhea. Treatments tried include nothing so far. with no relief of symptoms. Sick contacts: unknown. History of asthma, frequent episodes of bronchitis, chronic bronchitis, bronchiectasis or COPD: No Smoker: No Seasonal/environmental allergies: No The ROS is otherwise negative. The patient's pmh, medications, allergies, and past visits are reviewed. PHYSICAL EXAM: BP 116/78 Pulse 69 Temp 36.3 C (97.3 F) Resp 18 Wt 40 kg (88 lb 3.2 oz) SpO2 99% BMI 17.23 kg/m General appearance: alert, cooperative, pleasant, in no acute distress Head: Normocephalic Eyes: EOM's intact, conjunctiva pink and moist, no icterus, sclera white, non-injected Ears: Right ear: External ear/canal- Normal, TM - clear with good landmarks. Left ear: External ear/canal- Normal, TM - clear with good landmarks Oropharynx:moist without lesions, No erythema, exudates or tonsillar hypertrophy. Heart: Negative. RRR without obvious murmur, gallop, or rubs. No ectopy. Lungs: clear to auscultation, without rales or wheeze, good air exchange PAST MEDICAL HISTORY Diagnosis Date Breast cancer (HCC) Left mastectomy. Right mastectomy. Bilateral reconstructions. No chemo/XRT. Cervical cancer (HCC) Remote. SOHEILA/BSO. No chemo or XRT. COPD (chronic obstructive pulmonary disease) (HCC) Gastroenteritis History of ileus Meniere's disease [facility]. Meningioma (HCC) Mitral valve regurgitation Non Hodgkin's lymphoma (HCC) About 14 years ago. No XRT, chemotherapy. Watchful waiting. Osteoporosis PAST SURGICAL HISTORY Procedure Laterality Date BREAST RECONSTRUCTION CATARACT EXTRACTION HX Bilateral 2011 CATARACT SURGERY, COMPLEX COLONOSCOPY W/BIOPSY SINGLE/MULTIPLE 10/12/2016 D&C DIAG &/OR THERAP, NOT OB EGD TRANSORAL BIOPSY SINGLE/MULTIPLE 10/12/2016 EGD W/O BRSH SPEC VARICIES INJ N/A HEMORRHOIDECTOMY MASTECTOMY HX Bilateral 1982 PAST SURGICAL HISTORY OF Bronchial artery embolization, left lung PAST SURGICAL HISTORY OF 2002 Lymph node removal on left arm SLING OPER STRES INCONTINENCE TOT ABDOMINL HYSTERECTOMY 1984 ALLERGIES Augmentin [Amoxicillin-Pot Clavulanate], Codeine, Shellfish Containing Products, Bacitracin, Latex, and Freeman MEDICATIONS rivastigmine tartrate (EXELON) 1.5 mg capsule Take 1 capsule by mouth twice daily. calcium carbonate (TUMS ORAL) Take 1 tablet by mouth at bedtime as needed. nystatin (MYCOSTATIN) 100,000 unit/mL suspension three times daily. Cholecalciferol, Vitamin D3, 25 mcg (1,000 unit) cap Take 1,000 Units by mouth once daily. SYMBICORT 160-4.5 mcg/actuation inhaler Inhale 2 Puffs as instructed twice daily. VENTOLIN HFA 90 mcg/actuation inhaler Inhale 2 Puffs as instructed every 6 hours as needed for Wheezing/Shortness of Breath. OXYGEN, HOME THERAPY, Inhale 3 L/min as instructed as directed. tiotropium (SPIRIVA WITH HANDIHALER) 18 mcg inhalation capsule INHALE THE CONTENTS OF ONE CAPSULE VIA HANDIHALER ONCE DAILY Zinc 50 mg tab Take 50 mg by mouth once daily. ipratropium-albuterol (DUONEB) 0.5 mg-3 mg(2.5 mg base)/3 mL nebu Inhale 3 mL as instructed every 6hours as needed (wheezing/shortness of breath). fluticasone (FLONASE) 50 mcg/actuation nasal spray Use 1 [place] in each nostril once daily. CALCIUM ORAL Take 1 tablet by mouth once daily. MAGNESIUM ORAL Take 1 tablet by mouth once daily. benzonatate (TESSALON PERLE) 100 mg capsule Take 1 capsule by mouth three times daily as needed. (Patient not taking: No sig reported) FAMILY HISTORY Problem Relation Age of Onset Alzheimer's Disease Mother in her 80s. Aneurysm Father AAA at age 61. other (Chronic bronchitis.) Father other (Other) Brother Parkinson's vs [place]'s. age 61. other (Other) Other Meningioma: multiple cousins Social History Tobacco Use Smoking status: Former Packs/day: 1.00 Years: 30.00 Pack years: 30.00 Types: Cigarettes Quit date: 02/22/1999 Years since quittin.0 Smokeless tobacco: Never Tobacco comments: Father smoked in childhood home. Vaping Use Vaping Use: Never used Substance Use Topics Alcohol use: Yes Alcohol/week: 4.0 standard drinks Types: 4 Glasses of Wine (5oz) per week Comment: With dinner. Drug use: No * * * * Physician Interpretation * * * * EXAMINATION: CHEST RADIOGRAPH (2 VIEW FRONTAL & LATERAL) CLINICAL HISTORY: Acute cough MQ: [id number] EXAM DATE/TIME: 03/16/2022 11:30 AM COMPARISON: Chest x-ray dated May 06, 2021 RESULT: Lines, tubes, and devices: None. Lungs and pleura: Lungs hyperinflated with stable mild linear scarring at the left base. No consolidation. No lung mass. No pleural effusion. No pneumothorax. Cardiomediastinal silhouette: Stable cardiomediastinal silhouette with surgical clips in the region of the left mediastinum. Bones and soft tissues: Osseous demineralization. Mild degenerative changes. IMPRESSION IMPRESSION: No acute radiographic abnormality. Hat Lacer: TAMMY Transcribe Date/Time: Mar 16 2022 11:37A Dictated by : DOMI HOLLINGSWORTH MD ASSESSMENT/PLAN: 1. Acute cough - ICD9: 786.2, ICD10: R05.1 (primary diagnosis) - XR CHEST 2V FRONTAL/LAT 2. Rhinosinusitis - ICD9: 473.9, ICD10: J31.0, J32.9 - DOXYCYCLINE MONOHYDRATE 100 MG TABLET Due to recent amoxicillin usage. Pneumonia ruled out with chest xray. Instructed patient to increase water intake and monitor urine output. Prescription instructions reviewed with patient daughter as applicable. Potential red flag symptomsdiscussed with the patient. Reviewed appropriate action plan to take if red flag symptoms occur go to the ER. . Patient daughter agreeable to treatment plan. Patsy Valencia APRN.MARKER MACHINE documented in this encounterBarney Children'S [facility] Center01-23-2023 Miscellaneous Notes* Telephone Encounter - Remberto Bob RN - 03/16/2022 9:07 AM EST Protocol recommends ER Now. Daughter agreeable and will take patient to ER. Reason for Disposition [1] MODERATE difficulty breathing (e.g., speaks in phrases, SOB even at rest, pulse 100-120) AND [2] still present when not coughing Answer Assessment - Initial Assessment Questions 1. ONSET: 2 weeks ago 2. SEVERITY: Constant-hx of COPD and on oxygen at night 3. SPUTUM: Non productive 4. HEMOPTYSIS: No 5. DIFFICULTY BREATHING: Moderate SOB. Uses 3 inhalers for COPD 6. FEVER: Not sure 7. CARDIAC HISTORY: No 8. LUNG HISTORY: COPD. Lung bleed-put stent in lung-12 years ago. 9. PE RISK FACTORS: No hx blood clots. Sleeps a lot. 10. OTHER SYMPTOMS: Sore throat. Dizziness-hx of menieres. Right ear pain- appt with Dr. Mendosa today at 10:30 am. 11. : No 12. TRAVEL: No exposures. Had flu over [place]. Lives at [facility] independent living. Protocols used: Cough - Acute [id number] documented in this encounterBarney Children'S [facility] Center12-06-2022 History of Present illness Narrative* Danika Helms - 01/27/2022 12:53 PM EST Images from the original note were not included. FOLLOW UP PODIATRIC OFFICE VISIT Chief Complaint: This 81 year old who presents for follow up:callus of right hallux Patient presents to clinic for follow-up right hallux callus. She complains of pain to the lateral aspect of right hallux She uses toe cap to 2nd toe to prevent rubbing. She denies any redness or drainage to right hallux. PAIN EVALUATION 01/27/2022 0913 Pain Level: 6 up to 8/10 Pain Location: Toe Frequency: Intermittent Intervention/Comfort measure: Reposition;Relaxation;Distractions Hemoglobin A1C Date Value Ref Range Status 09/16/2017 5.5 4.3 - 5.6 % Final PCP: Donnell Dooley MD PAST MEDICAL HISTORY Diagnosis Date Breast cancer (HCC) Left mastectomy. Right mastectomy. Bilateral reconstructions. No chemo/XRT. Cervical cancer (HCC) Remote. SOHEILA/BSO. No chemo or XRT. COPD (chronic obstructive pulmonary disease) (HCC) Gastroenteritis History of ileus Meniere's disease Dr. Mendosa, [place] [facility]. Meningioma (HCC) Mitral valve regurgitation Non Hodgkin's lymphoma (HCC) About 14 years ago. No XRT, chemotherapy. Watchful waiting. Osteoporosis Current Outpatient Medications Medication Sig rivastigmine tartrate (EXELON) 1.5 mg capsule Take 1 capsule by mouth twice daily. calcium carbonate (TUMS ORAL) Take 1 tablet by mouth at bedtime as needed. nystatin (MYCOSTATIN) 100,000 unit/mL suspension three times daily. Cholecalciferol, Vitamin D3, 25 mcg (1,000 unit) cap Take 1,000 Units by mouth once daily. SYMBICORT 160-4.5 mcg/actuation inhaler Inhale 2 Puffs as instructed twice daily. VENTOLIN HFA 90 mcg/actuation inhaler Inhale 2 Puffs as instructed every 6 hours as needed for Wheezing/Shortness of Breath. OXYGEN, HOME THERAPY, Inhale 3 L/min as instructed as directed. tiotropium (SPIRIVA WITH HANDIHALER) 18 mcg inhalation capsule INHALE THE CONTENTS OF ONE CAPSULE VIA HANDIHALER ONCE DAILY Zinc 50 mg tab Take 50 mg by mouth once daily. ipratropium-albuterol (DUONEB) 0.5 mg-3 mg(2.5 mg base)/3 mL nebu Inhale 3 mL as instructed every 6hours as needed (wheezing/shortness of breath). fluticasone (FLONASE) 50 mcg/actuation nasal spray Use 1 [place] in each nostril once daily. CALCIUM ORAL Take 1 tablet by mouth once daily. MAGNESIUM ORAL Take 1 tablet by mouth once daily. benzonatate (TESSALON PERLE) 100 mg capsule Take 1 capsule by mouth three times daily as needed. (Patient not taking: No sig reported) No current facility-administered medications for this visit. ALLERGIES Allergen Reactions Augmentin [Amoxicil* Vomiting Codeine GI Upset, Vomiting Shellfish Containin* Swelling, Anaphylaxis, Shortness of Breath, Other: See Comments, Hives No serious trouble with recent re-introduction of shellfish into diet. Bacitracin Itching Latex Rash Freeman Swelling PAST SURGICAL HISTORY Procedure Laterality Date BREAST RECONSTRUCTION CATARACT EXTRACTION HX Bilateral 2011 CATARACT SURGERY, COMPLEX COLONOSCOPY W/BIOPSY SINGLE/MULTIPLE 10/12/2016 D&C DIAG &/OR THERAP, NOT OB EGD TRANSORAL BIOPSY SINGLE/MULTIPLE 10/12/2016 EGD W/O BRSH SPEC VARICIES INJ N/A HEMORRHOIDECTOMY MASTECTOMY HX Bilateral 1982 PAST SURGICAL HISTORY OF Bronchial artery embolization, left lung PAST SURGICAL HISTORY OF 2002 Lymph node removal on left arm SLING OPER STRES INCONTINENCE TOT ABDOMINL HYSTERECTOMY 1984 Physical Exam: OBJECTIVE: Constitutional: Pt is a well developed 81 year old female who is alert, oriented, cooperative and in no apparent distress. Eyes: Following during examination. No redness or drainage. Respiratory: RR normal and nonlabored. Even breathing. No evidence of distress. Psychology: Patient is engaged during conversation. Normal affect and mood. Does not appear depressed or anxious. NVSI unchanged from previous visit. Dermatological: Callus to right lateral hallux. Upon debridement, she has a very superficial, 1 mm ulceration without signs of infection. Dryness is noted to b/l feet. Musculoskeletal/Orthopaedic: Patient has pain to palpation of lateral aspect of right hallux Bunion is present to right foot found to be rubbing on 2nd toe ASSESSMENT: (M20.11) Hallux valgus of right foot (primary encounter diagnosis) (L97.511) Ulcer of toe of right foot, limited to breakdown of skin (HCC) PLAN: Callus to right hallux debrided with 15 blade. Upon debridement, she has a very superficial, noinfected 1 mm ulceration . This is caused by rubbing between first and 2nd toe. The ulceration was carefully debrided thru dermis with tissue nipper and 15 blade. I am going to treat with band aide until it heals. It likely will heal within the next few days. It is important for patient to wear padding between toes to prevent rubbing. If she has any issues with this sore, she can call for immediate follow-up, otherwise, I will have her follow-up in 3-4 weeks I again discussed treatment for the cause of this problem. She could opt for amputation of 2nd toe vs arthroplasty of 2nd toe vs reconstruction of bunion. She is not interested in surgery. She will f/u in 3-4 weeks for callus debridement. She will follow-up earlier if problems arise. Danika Helms DPM * Sherron Warren RN - 01/27/2022 9:12 AM EST AMB ROOMING INTAKE FLOWSHEET DATA Risk Screening Do you have concerns about personal safety or safety in the home?: No Pain Pain Level: 6 (up to 8/10) Pain Location: Toe Frequency: Intermittent Intervention/Comfort measure: Reposition, Relaxation, Distractions Patient presents with: Right Foot - Established Patient, Follow Up, Pain Patient presents for Right greater toe pain. documented in this encounterBarney [facility] History of Present illness Narrative* Danika Helms - 12/22/2021 12:44 PM EDT FOLLOW UP PODIATRIC OFFICE VISIT Chief Complaint: This 81 year old who presents for follow up:callus of right hallux Patient presents to clinic for painful callus of right hallux. She has been using lambs wool and has noticed less pain in right great toe She does complain of painful left great toenail. No other complaints. PAIN EVALUATION No data found in the last 1 encounters. Hemoglobin A1C Date Value Ref Range Status 09/16/2017 5.5 4.3 - 5.6 % Final PCP: Donnell Dooley MD PAST MEDICAL HISTORY Diagnosis Date Breast cancer (HCC) Left mastectomy. Right mastectomy. Bilateral reconstructions. No chemo/XRT. Cervical cancer (HCC) Remote. SOHEILA/BSO. No chemo or XRT. COPD (chronic obstructive pulmonary disease) (HCC) Gastroenteritis History of ileus Meniere's disease [facility]. Meningioma (HCC) Mitral valve regurgitation Non Hodgkin's lymphoma (HCC) About 14 years ago. No XRT, chemotherapy. Watchful waiting. Osteoporosis Current Outpatient Medications Medication Sig rivastigmine tartrate (EXELON) 1.5 mg capsule Take 1 capsule by mouth twice daily. calcium carbonate (TUMS ORAL) Take 1 tablet by mouth at bedtime as needed. nystatin (MYCOSTATIN) 100,000 unit/mL suspension three times daily. Cholecalciferol, Vitamin D3, 25 mcg (1,000 unit) cap Take 1,000 Units by mouth once daily. SYMBICORT 160-4.5 mcg/actuation inhaler Inhale 2 Puffs as instructed twice daily. VENTOLIN HFA 90 mcg/actuation inhaler Inhale 2 Puffs as instructed every 6 hours as needed for Wheezing/Shortness of Breath. OXYGEN, HOME THERAPY, Inhale 3 L/min as instructed as directed. tiotropium (SPIRIVA WITH HANDIHALER) 18 mcg inhalation capsule INHALE THE CONTENTS OF ONE CAPSULE VIA HANDIHALER ONCE DAILY Zinc 50 mg tab Take 50 mg by mouth once daily. ipratropium-albuterol (DUONEB) 0.5 mg-3 mg(2.5 mg base)/3 mL nebu Inhale 3 mL as instructed every 6hours as needed (wheezing/shortness of breath). fluticasone (FLONASE) 50 mcg/actuation nasal spray Use 1 [place] in each nostril once daily. CALCIUM ORAL Take 1 tablet by mouth once daily. MAGNESIUM ORAL Take 1 tablet by mouth once daily. benzonatate (TESSALON PERLE) 100 mg capsule Take 1 capsule by mouth three times daily as needed. (Patient not taking: Reported on 12/22/2021) No current facility-administered medications for this visit. ALLERGIES Allergen Reactions Augmentin [Amoxicil* Vomiting Codeine GI Upset, Vomiting Shellfish Containin* Swelling, Anaphylaxis, Shortness of Breath, Other: See Comments, Hives No serious trouble with recent re-introduction of shellfish into diet. Bacitracin Itching Latex Rash PAST SURGICAL HISTORY Procedure Laterality Date BREAST RECONSTRUCTION CATARACT EXTRACTION HX Bilateral 2011 CATARACT SURGERY, COMPLEX COLONOSCOPY W/BIOPSY SINGLE/MULTIPLE 10/12/2016 D&C DIAG &/OR THERAP, NOT OB EGD TRANSORAL BIOPSY SINGLE/MULTIPLE 10/12/2016 EGD W/O BRSH SPEC VARICIES INJ N/A HEMORRHOIDECTOMY MASTECTOMY HX Bilateral 1982 PAST SURGICAL HISTORY OF Bronchial artery embolization, left lung PAST SURGICAL HISTORY OF 2002 Lymph node removal on left arm SLING OPER STRES INCONTINENCE TOT ABDOMINL HYSTERECTOMY 1984 Physical Exam: OBJECTIVE: Constitutional: Pt is a well developed 81 year old female who is alert, oriented, cooperative and in no apparent distress. Eyes: Following during examination. No redness or drainage. Respiratory: RR normal and nonlabored. Even breathing. No evidence of distress. Psychology: Patient is engaged during conversation. Normal affect and mood. Does not appear depressed or anxious. NVSI unchanged from previous visit. Dermatological: Left great toenail is thick, dystrophic, painful. Callus present to right hallux. No underlying ulceration is noted. Musculoskeletal/Orthopaedic: Patient has pain to palpation of lateral aspect of right hallux Moderate bunion is present to right great toe ASSESSMENT: (L84) Callus of foot (primary encounter diagnosis) (M20.11) Hallux valgus of right foot (B35.1) Onychomycosis (M79.675) Pain in toe of left foot PLAN: Discussed painful callus of right hallux. Very minimal callus present today as patient has been using lambs wool. REcommend she continue with lambs wool. Light debridement was performed with 15 bladeand dremmel. In order to perform a complete physical exam, limited shaving of callus area was performed. This incidental service is integral to the evaluation and management visit in order to appropriately manage and treat the patient (for their complaint or for this visit). Discussed pain in left great toenail. She has dystrophic toenail and also has distal tuft exostosis. Discussed options not limited to periodic debridemetn of nail vs resection of spur vs permanent removal of toenail. Patient may consider total nail removal in the future. F/u in 1 month Danika Helms DPM * Tammy Daniel RN - 12/22/2021 9:17 AM EDT Patient presents with: Right Foot - Follow Up, Callous documented in this encounterBarney [facility]10-18-2022 History of Present illness Narrative* Donnell Dooley MD - 12/09/2021 1:21 PM EDT Patient presents with: Follow Up HPI: Patient presents today for office visit for 3 month follow up. No complaints. Feeling well. No worsening cough or shortness of breath. Heme onc: does not have to go back til next summer. Had two injections with Dr Triana. Had bone density in 2020. Has not been back to see neurology. Tolerating aricept. Just had mri of her brain. No changes in memory. Still sees cardiology. No chest pain or edema. See previous noted. Had some neck soreness a month ago but was put on a medrol per the DRAPERY COUNSELOR at her facility and it improved. Now having some issues with her right hip and back on her leg. Hurts to lay down and move. No falls or trauma. No redness or warmth in the leg. Has some mild numbness No issues controlling bowel or bladder. Neuro:will not take aricept. [place] dizzy. Has menier's also. PULM: still wearing oxygen prn. Still using her inhalers. Sees Dr. Antunez at pulmonary Heme/onc:follows with Dr Mcmillan MEDICATIONS: Current Outpatient Medications Medication Sig rivastigmine tartrate (EXELON) 1.5 mg capsule Take 1 capsule by mouth twice daily. calcium carbonate (TUMS ORAL) Take 1 tablet by mouth at bedtime as needed. benzonatate (TESSALON PERLE) 100 mg capsule Take 1 capsule by mouth three times daily as needed. nystatin (MYCOSTATIN) 100,000 unit/mL suspension three times daily. Cholecalciferol, Vitamin D3, 25 mcg (1,000 unit) cap Take 1,000 Units by mouth once daily. SYMBICORT 160-4.5 mcg/actuation inhaler Inhale 2 Puffs as instructed twice daily. VENTOLIN HFA 90 mcg/actuation inhaler Inhale 2 Puffs as instructed every 6 hours as needed for Wheezing/Shortness of Breath. OXYGEN, HOME THERAPY, Inhale 3 L/min as instructed as directed. tiotropium (SPIRIVA WITH HANDIHALER) 18 mcg inhalation capsule INHALE THE CONTENTS OF ONE CAPSULE VIA HANDIHALER ONCE DAILY Zinc 50 mg tab Take 50 mg by mouth once daily. ipratropium-albuterol (DUONEB) 0.5 mg-3 mg(2.5 mg base)/3 mL nebu Inhale 3 mL as instructed every 6hours as needed (wheezing/shortness of breath). fluticasone (FLONASE) 50 mcg/actuation nasal spray Use 1 [place] in each nostril once daily. CALCIUM ORAL Take 1 tablet by mouth once daily. MAGNESIUM ORAL Take 1 tablet by mouth once daily. No current facility-administered medications for this visit. ALLERGIES: ALLERGIES Allergen Reactions Augmentin [Amoxicil* Vomiting Codeine GI Upset, Vomiting Shellfish Containin* Swelling, Anaphylaxis, Shortness of Breath, Other: See Comments, Hives No serious trouble with recent re-introduction of shellfish into diet. Bacitracin Itching Latex Rash PAST MEDICAL HISTORY Diagnosis Date Breast cancer (HCC) Left mastectomy. Right mastectomy. Bilateral reconstructions. No chemo/XRT. Cervical cancer (HCC) Remote. SOHEILA/BSO. No chemo or XRT. COPD (chronic obstructive pulmonary disease) (HCC) Gastroenteritis History of ileus Meniere's disease [facility]. Meningioma (HCC) Mitral valve regurgitation Non Hodgkin's lymphoma (HCC) About 14 years ago. No XRT, chemotherapy. Watchful waiting. Osteoporosis PAST SURGICAL HISTORY Procedure Laterality Date BREAST RECONSTRUCTION CATARACT EXTRACTION HX Bilateral 2011 CATARACT SURGERY, COMPLEX COLONOSCOPY W/BIOPSY SINGLE/MULTIPLE 10/12/2016 D&C DIAG &/OR THERAP, NOT OB EGD TRANSORAL BIOPSY SINGLE/MULTIPLE 10/12/2016 EGD W/O BRSH SPEC VARICIES INJ N/A HEMORRHOIDECTOMY MASTECTOMY HX Bilateral 1982 PAST SURGICAL HISTORY OF Bronchial artery embolization, left lung PAST SURGICAL HISTORY OF 2002 Lymph node removal on left arm SLING OPER STRES INCONTINENCE TOT ABDOMINL HYSTERECTOMY 1984 FAMILY HISTORY Problem Relation Age of Onset Alzheimer's Disease Mother in her 80s. Aneurysm Father AAA at age 61. other (Chronic bronchitis.) Father other (Other) Brother Parkinson's vs [place]'s. age 61. other (Other) Other Meningioma: multiple cousins Social History Tobacco Use Smoking status: Former Packs/day: 1.00 Years: 30.00 Pack years: 30.00 Types: Cigarettes Quit date: 02/22/1999 Years since quittin.8 Smokeless tobacco: Never Tobacco comments: Father smoked in childhood home. Vaping Use Vaping Use: Never used Substance Use Topics Alcohol use: Yes Alcohol/week: 10.0 standard drinks Types: 4 Glasses of Wine (5oz) per week Comment: With dinner. Drug use: No Reviewed current medications, allergies, past medical history, surgical history, family history andsocial history today. REVIEW OF SYSTEMS All other reviewed and negative other than HPI. HEALTH MAINTENANCE: Reviewed health maintenance issues today and recommended the following in detail. COVID-19 VACCINE(5 - Booster for Moderna series) due on 09/16/2021 INFLUENZA(1) due on 10/23/2021 VITALS: Ht 152.4 cm (5') Wt 40.1 kg (88 lb 6.4 oz) BMI 17.26 kg/m Last 4 Encounter Wt Readings: Date: Wt: 12/09/2021 40.1 kg (88 lb 6.4 oz) 09/04/2021 44 kg (97 lb) 08/04/2021 43.5 kg (96 lb) 06/04/2021 43.5 kg (96 lb) PHYSICAL EXAMINATION: General appearance: Well appearing, alert, in no acute distress, well-hydrated, well nourished. Skin: Skin color, texture, turgor normal, no suspicious rashes or lesions Head: Normocephalic, no masses, lesions, tenderness or abnormalities Eyes: Anicteric sclera. Pupils are equally round and reactive to light. Extraocular movements are intact. Lungs: Lungs clear to auscultation. No wheezing, rhonchi, rales Heart: RRR without murmur, gallop, or rubs. No ectopy Abdomen: Normal abdominal exam, Abdomen soft, non-tender. Bowel sounds normal. No masses, organomegaly Extremities: No deformities, edema, skin discoloration, clubbing or cyanosis. Good capillary refill. Musculoskeletal: No joint swelling, deformity, or tenderness Peripheral pulses: Normal Neuro: Negative. ASSESSMENT/PLAN: 1. Mild cognitive impairment - ICD9: 331.83, ICD10: G31.84 (primary diagnosis) - continue meds. - RIVASTIGMINE 1.5 MG CAPSULE 2. Encounter for immunization - ICD9: V03.89, ICD10: Z23 - INFLUENZA SEASONAL QUADRIVALENT HIGH DOSE AGE 65+ - PFI[employer]ER-[employer] COVID-19 BIVALENT BOOSTER VACCINE, AGE 12+ YR 3. Meningioma (HCC) - ICD9: 225.2, ICD10: D32.9 - stable. 4. Mitral valve insufficiency, unspecified etiology - ICD9: 424.0, ICD10: I34.0 - call if any issues. 5. Pulmonary emphysema, unspecified emphysema type (HCC) - ICD9: 492.8, ICD10: J43.9 - stable. 6. Small B-cell lymphoma, unspecified body region (HCC) - ICD9: 200.80, ICD10: C83.00 - stable. Donnell Dooley MD RTO in six months documented in this encounterBarney [facility]09-29-2022 History of Present illness Narrative* Catrachita Osuna - 11/20/2021 2:15 PM EDT POPULATION HEALTH NAVIGATION OUTREACH Action/I [place] Support: Called pt to schedule an appt in Pain Management. Lvm for pt to call [phone] for scheduling. Pt identified by name and : NO Outreach Outcome/Action Unable to reach patient: Left message Did you use a PCP flex slot to schedule this appointment? No Reason for Outreach Care Gap or Scheduling/Wellness visits Payer: Payor: MEDICARE / Plan: MEDICARE A AND B / Product Type: Medicare / Care Gap Reviewed:: Specialty Scheduling Reminder: Reminder note to check Health Maintenance for items below Health Maintenance items due: DTAP,TDAP,TD(1 - Tdap) Never done COVID-19 VACCINE(3 - Moderna risk series) due on 05/29/2020 DEPRESSION ASSESSMENT Never done INFLUENZA(1) due on 10/23/2021 Message Sent to Practice: No Navigation Signature: Catrachita Osuna November 20, 2021 2:15 PM documented in this encounterBarney Children'[facility]09-15-2022 History of Present illness Narrative* Danika Helms - 11/06/2021 12:45 PM EDT FOLLOW UP PODIATRIC OFFICE VISIT Chief Complaint: This 81 year old who presents for follow up:painful callus of right foot Patient presents to clinic for follow-up painful callus of right foot. Patient complains of callus between right 1st and 2nd toe and another callus to plantar aspect of right 5th metatarsal head Patient comes in for debridement and this does provide relief She has no other complaints other than superficial blister of left heel that she is applying band aide too PAIN EVALUATION 11/06/2021 1026 Pain Level: 7 Pain Location: Toe Description: Dull;Sharp Duration Units: Unknown Frequency: Continuous Intervention/Comfort measure: Relaxation Hemoglobin A1C Date Value Ref Range Status 09/16/2017 5.5 4.3 - 5.6 % Final PCP: Donnell Dooley MD PAST MEDICAL HISTORY Diagnosis Date Breast cancer (HCC) Left mastectomy. Right mastectomy. Bilateral reconstructions. No chemo/XRT. Cervical cancer (HCC) Remote. SOHEILA/BSO. No chemo or XRT. COPD (chronic obstructive pulmonary disease) (HCC) Gastroenteritis History of ileus Meniere's disease [facility]. Meningioma (HCC) Mitral valve regurgitation Non Hodgkin's lymphoma (HCC) About 14 years ago. No XRT, chemotherapy. Watchful waiting. Osteoporosis Current Outpatient Medications Medication Sig rivastigmine tartrate (EXELON) 1.5 mg capsule Take 1 capsule by mouth twice daily. rivastigmine (EXELON PATCH) 4.6 mg/24 hour patch Apply 1 Patch as directed once daily. calcium carbonate (TUMS ORAL) Take 1 tablet by mouth at bedtime as needed. benzonatate (TESSALON PERLE) 100 mg capsule Take 1 capsule by mouth three times daily as needed. nystatin (MYCOSTATIN) 100,000 unit/mL suspension three times daily. Cholecalciferol, Vitamin D3, 25 mcg (1,000 unit) cap Take 1,000 Units by mouth once daily. pantoprazole DR (PROTONIX) 40 mg tablet Take 1 tablet by mouth once daily. SYMBICORT 160-4.5 mcg/actuation inhaler Inhale 2 Puffs as instructed twice daily. VENTOLIN HFA 90 mcg/actuation inhaler Inhale 2 Puffs as instructed every 6 hours as needed for Wheezing/Shortness of Breath. OXYGEN, HOME THERAPY, Inhale 3 L/min as instructed as directed. tiotropium (SPIRIVA WITH HANDIHALER) 18 mcg inhalation capsule INHALE THE CONTENTS OF ONE CAPSULE VIA HANDIHALER ONCE DAILY Zinc 50 mg tab Take 50 mg by mouth once daily. ipratropium-albuterol (DUONEB) 0.5 mg-3 mg(2.5 mg base)/3 mL nebu Inhale 3 mL as instructed every 6hours as needed (wheezing/shortness of breath). fluticasone (FLONASE) 50 mcg/actuation nasal spray Use 1 [place] in each nostril once daily. CALCIUM ORAL Take 1 tablet by mouth once daily. MAGNESIUM ORAL Take 1 tablet by mouth once daily. No current facility-administered medications for this visit. ALLERGIES Allergen Reactions Augmentin [Amoxicil* Vomiting Codeine GI Upset, Vomiting Shellfish Containin* Swelling, Anaphylaxis, Shortness of Breath, Other: See Comments, Hives No serious trouble with recent re-introduction of shellfish into diet. Bacitracin Itching Latex Rash PAST SURGICAL HISTORY Procedure Laterality Date BREAST RECONSTRUCTION CATARACT EXTRACTION HX Bilateral 2011 CATARACT SURGERY, COMPLEX COLONOSCOPY W/BIOPSY SINGLE/MULTIPLE 10/12/2016 D&C DIAG &/OR THERAP, NOT OB EGD TRANSORAL BIOPSY SINGLE/MULTIPLE 10/12/2016 EGD W/O [facility] SPEC VARICIES INJ N/A HEMORRHOIDECTOMY MASTECTOMY HX Bilateral 1982 PAST SURGICAL HISTORY OF Bronchial artery embolization, left lung PAST SURGICAL HISTORY OF 2002 Lymph node removal on left arm SLING OPER STRES INCONTINENCE TOT ABDOMINL HYSTERECTOMY 1984 Physical Exam: OBJECTIVE: Constitutional: Pt is a well developed 81 year old female who is alert, oriented, cooperative and in no apparent distress. Eyes: Following during examination. No redness or drainage. Respiratory: RR normal and nonlabored. Even breathing. No evidence of distress. Psychology: Patient is engaged during conversation. Normal affect and mood. Does not appear depressed or anxious. NVSI unchanged from previous visit. Dermatological: Nails 1-5 b/l are normal. Webspaces clean and dry 1-4 b/l. Skin appears well hydrated and supple. good color, texture, turgor. No open lesions present. Callus to lateral aspect of right hallux ipj. Callus to plantar aspect of right 5th metatarsal head. No open wounds present to left foot Musculoskeletal/Orthopaedic: Patient has pain to palpation of callus of right foot Moderate bunion is present to right great toe ASSESSMENT: (L84) Callus of foot (primary encounter diagnosis) (M20.11) Hallux valgus of right foot PLAN: Again discussed callus of right great toe. The cause of callus is caused by bunion. Recommend toe spacer and/or lambs wool. Callus reduced with 15 blade today. Discussed treatment not limited to padding vs surgery. Patient is inclined to continue with conservative care Callus to right 5th metatarsal debrided with 15 blade. Blister of left heel is now healed F/u in 4-5 weeks or prn. Danika Helms DPM * Blanka Jordan RN - 11/06/2021 10:24 AM EDT Patient presents with: Left Foot - Follow Up, Established Patient Right Foot - Follow Up, Established Patient AMB ROOMING INTAKE FLOWSHEET DATA Risk Screening Do you have concerns about personal safety or safety in the home?: No Pain Pain Level: 7 Pain Location: Toe Description: Dull, Sharp Duration Units: Unknown Frequency: Continuous Intervention/Comfort measure: Relaxation documented in this encounterBarney Children'[facility]09-07-2022 Miscellaneous Notes* Telephone Encounter - Jennifer Holm LPN - 10/29/2021 4:33 PM EDT Faxed order as requested. * Telephone Encounter - Donnell Dooley MD - 10/29/2021 4:20 PM EDT done * Telephone Encounter - Jennifer Holm LPN - 10/29/2021 4:01 PM EDT [facility] requesting order for outpatient PT orders due to decreased strength, balance, and walking without assistive device. Please see pending order so can be printed and faxed as requested to [phone]. documented in this encounterBarney Children'S [facility] Center09-01-2022 History of Present illness Narrative* Molly Hays - 10/23/2021 5:40 PM EDT POPULATION HEALTH NAVIGATION OUTREACH Action/[facility] RP OUTREACH: M for Patient to call [phone] to schedule PT Consult Pt identified by name and : NO Outreach Outcome/Action Unable to reach patient: Left message Did you use a PCP flex slot to schedule this appointment? No Reason for Outreach Care Gap or Scheduling/Wellness visits Payer: Payor: MEDICARE / Plan: MEDICARE A AND B / Product Type: Medicare / Care Gap Reviewed:: N/A Reminder: Reminder note to check Health Maintenance for items below Health Maintenance items due: DTAP,TDAP,TD(1 - Tdap) Never done COVID-19 VACCINE(3 - Moderna risk series) due on 05/29/2020 INFLUENZA(1) due on 10/23/2021 Message Sent to Practice: No Navigation Signature: Molly Hays October 23, 2021 5:40 PM documented in this encounterBarney Children'S [facility] Center08-18-2022 History of Present illness Narrative* Danika Helms - 10/09/2021 11:00 AM EDT FOLLOW UP PODIATRIC OFFICE VISIT Chief Complaint: This 81 year old who presents for follow up:callus of right 2nd toe Patient presents to clinic for follow-up callus of right hallux Patient states that she has intermittent pain of right hallux. She states that keeping the callus filed helps with the pain. She is here to have the callus filed today. Patient also compains of thick toenail of left hallux. PAIN EVALUATION No data found in the last 1 encounters. Hemoglobin A1C Date Value Ref Range Status 09/16/2017 5.5 4.3 - 5.6 % Final PCP: Donnell Dooley MD PAST MEDICAL HISTORY Diagnosis Date Breast cancer (HCC) Left mastectomy. Right mastectomy. Bilateral reconstructions. No chemo/XRT. Cervical cancer (HCC) Remote. SOHEILA/BSO. No chemo or XRT. COPD (chronic obstructive pulmonary disease) (HCC) Gastroenteritis History of ileus Meniere's disease [facility]. Meningioma (HCC) Mitral valve regurgitation Non Hodgkin's lymphoma (HCC) About 14 years ago. No XRT, chemotherapy. Watchful waiting. Osteoporosis Current Outpatient Medications Medication Sig rivastigmine tartrate (EXELON) 1.5 mg capsule Take 1 capsule by mouth twice daily. calcium carbonate (TUMS ORAL) Take 1 tablet by mouth at bedtime as needed. benzonatate (TESSALON PERLE) 100 mg capsule Take 1 capsule by mouth three times daily as needed. nystatin (MYCOSTATIN) 100,000 unit/mL suspension three times daily. Cholecalciferol, Vitamin D3, 25 mcg (1,000 unit) cap Take 1,000 Units by mouth once daily. SYMBICORT 160-4.5 mcg/actuation inhaler Inhale 2 Puffs as instructed twice daily. VENTOLIN HFA 90 mcg/actuation inhaler Inhale 2 Puffs as instructed every 6 hours as needed for Wheezing/Shortness of Breath. OXYGEN, HOME THERAPY, Inhale 3 L/min as instructed as directed. tiotropium (SPIRIVA WITH HANDIHALER) 18 mcg inhalation capsule INHALE THE CONTENTS OF ONE CAPSULE VIA HANDIHALER ONCE DAILY Zinc 50 mg tab Take 50 mg by mouth once daily. ipratropium-albuterol (DUONEB) 0.5 mg-3 mg(2.5 mg base)/3 mL nebu Inhale 3 mL as instructed every 6hours as needed (wheezing/shortness of breath). fluticasone (FLONASE) 50 mcg/actuation nasal spray Use 1 [place] in each nostril once daily. CALCIUM ORAL Take 1 tablet by mouth once daily. MAGNESIUM ORAL Take 1 tablet by mouth once daily. rivastigmine (EXELON PATCH) 4.6 mg/24 hour patch Apply 1 Patch as directed once daily. pantoprazole DR (PROTONIX) 40 mg tablet Take 1 tablet by mouth once daily. No current facility-administered medications for this visit. ALLERGIES Allergen Reactions Augmentin [Amoxicil* Vomiting Codeine GI Upset, Vomiting Shellfish Containin* Swelling, Anaphylaxis, Shortness of Breath, Other: See Comments, Hives No serious trouble with recent re-introduction of shellfish into diet. Bacitracin Itching Latex Rash PAST SURGICAL HISTORY Procedure Laterality Date BREAST RECONSTRUCTION CATARACT EXTRACTION HX Bilateral 2011 CATARACT SURGERY, COMPLEX COLONOSCOPY W/BIOPSY SINGLE/MULTIPLE 10/12/2016 D&C DIAG &/OR THERAP, NOT OB EGD EGD TRANSORAL BIOPSY SINGLE/MULTIPLE 10/12/2016 HEMORRHOIDECTOMY MASTECTOMY HX Bilateral 1982 PAST SURGICAL HISTORY OF Bronchial artery embolization, left lung PAST SURGICAL HISTORY OF 2002 Lymph node removal on left arm SLING OPER STRES INCONTINENCE TOT ABDOMINL HYSTERECTOMY 1984 Physical Exam: OBJECTIVE: Constitutional: Pt is a well developed 81 year old female who is alert, oriented, cooperative and in no apparent distress. Eyes: Following during examination. No redness or drainage. Respiratory: RR normal and nonlabored. Even breathing. No evidence of distress. Psychology: Patient is engaged during conversation. Normal affect and mood. Does not appear depressed or anxious. NVSI unchanged from previous visit. Dermatological: Nails 1-5 b/l are normal length but increased thickness noted to left hallux. Webspaces clean and dry 1-4 b/l. Skin appears well hydrated and supple. good color, texture, turgor. No open lesions present. Callus present to right lateral hallux. No ulceration is noted. Musculoskeletal/Orthopaedic: Patient has pain to palpation of right hallux at site of callus Mild to moderate bunion is noted to right foot with arthritis in mpj ASSESSMENT: (M20.11) Hallux valgus of right foot (primary encounter diagnosis (L84) Callus of foot (B35.1) Onychomycosis PLAN: 1. Callus was debrided with 15 blade and tissue nippers. In order to perform a complete physical exam, limited shaving of callus area was performed. This incidental service is integral to the evaluation and management visit in order to appropriately manage and treat the patient (for their complaintor for this visit). 2. Discussed options to continue with padding vs lambs wool vs first mpj fusion vs 2nd toe amputation. Patient has elected to continue with padding and periodic debridement 3. Left hallux toenail was filed with katarina. Could consider removal in future. * Denise Bowamn LPN - 10/09/2021 10:43 AM EDT AMB ROOMING INTAKE FLOWSHEET DATA Risk Screening Do you have concerns about personal safety or safety in the home?: No Patient presents with: Left Foot - Established Patient, Follow Up, callus Right Foot - Established Patient, Follow Up, callus Present with daughter. Denise Bowman LPN documented in this encounterBarney Children'[facility]08-02-2022 Miscellaneous Notes* Telephone Encounter - Tammy North LPN - 09/23/2021 11:47 AM EDT Daughter aware of same. Script was called to [facility] and [facility] was notified to disregard the script as it was sent in error. * Telephone Encounter - Donnell Dooley MD - 09/22/2021 12:57 PM EDT I would use them sparingly as they are opiates and can affect her breathing etc. They can cause constipation, aid in falls and are addictive. Small amount sent. * Telephone Encounter - Sherron Wei RN - 09/22/2021 11:46 AM EDT Pt daughter called in and reports Pt was in the hospital about a week ago for low back pain that goes into the hip. She states they did imaging and it came back ok. Daughter thinks it might be a pinched nerve. Pt is in PT right now. Daughter scheduled her to see Dr Triana, but couldn't get her in until 10/14/21. She reports she got [place] ordered from the hospital to take every 6 hours, but daughter doesn't remember the dose. She states the hospital told them to call the PCP for ore pain medication once it ran out. They are asking if you would send a prescription in to [facility] [place]. Please call and advise. documented in this encounterBarney Children'S Medical Center07-26-2022 Miscellaneous Notes* Telephone Encounter - An Barker Ma - 09/16/2021 4:43 PM EDT notified of results. Patient is setup with Dr Triana in Sep. Will fax results to office.. * Telephone Encounter - Donnell Dooley MD - 09/16/2021 3:52 PM EDT Shows degenerative changes and some spinal stenosis. I saw they were referring to pain management. Did they set that up * Telephone Encounter - Guera Roy RN - 09/16/2021 3:46 PM EDT calls to ask provider to review and advise on results of MRI of lumbar back completed yesterday at [facility]. Andre is requesting a call back at [phone]. Please review and advise, Guera Roy RN documented in this encounterBarney Children'S Medical Center07-25-2022 Miscellaneous Notes* Telephone Encounter - Guera Roy RN - 09/15/2021 10:06 AM EDT Daughter (Johanna) calls to request referral be sent to Dr. Nowak for pain management to arrange appointment for post hospitalization. Faxed per daughter request to [phone] with note patient currently hospitalized. Guera Roy RN * Telephone Encounter - Jennifer Holm LPN - 09/12/2021 11:55 AM EDT Will await ER records to complete referral. * Telephone Encounter - Donnell Dooley MD - 09/12/2021 10:56 AM EDT I did place referral, however, they will probably want to see Er work up before scheduling. * Telephone Encounter - Tianna Ugalde LPN - 09/12/2021 10:49 AM EDT Patients daughter calling, she is going to take patient to the ER. Asking if a referral can be sent to Dr. Triana to try and be proactive. Please advise. * Telephone Encounter - Mony Rodriguez RN - 09/11/2021 4:46 PM EDT Spoke with patient's . Given message from provider's office. Patient's verbalizes understanding. Mony Rodriguez RN * Telephone Encounter - Donnell Dooley MD - 09/11/2021 10:55 AM EDT If that severe, needs seen. If new weakness or is extremely severe, needs-could be seen in ER * Telephone Encounter - Inna Harris LPN - 09/11/2021 10:47 AM EDT Pt's Andre reports pain is having more back pain. States pt has extreme pain when she lays down at hs. Pt was in background & states pain, numbness & tingling is at her waist & goes down both legs. reports pain feels like someone is stabbing her in the back. Pt states at hs her pain is a 10 on 1-10 pain scale. Pain is tolerable during the day & when she is up & moving around. Pt finished prednisone & thinks it helped some. Is taking Tylenol XStrength with little improvement in pain. Asking what pt can do or take for pain now? Uses [facility]. Inna Harris LPN documented in this encounterBarney Children'S Medical Center07-19-2022 Miscellaneous Notes* Telephone Encounter - Stefanie Crawford Ma - 09/09/2021 12:04 PM EDT Images from the original note were not included. PA received and denied patient must try Rivastigmine capsule or have specific medical reason why can not take capsule. I did not see where in past capsule has been tried. Would you like to switch to capsule? If so please resend to [facility] Crawford Ma * Telephone Encounter - Stefanie Crawford Ma - 09/05/2021 3:46 PM EDT Prior Authorization has been completed online at [employer] for Rivastigmine Patch , will await response. [id number] Please keep encounter open until final decision has been received and documented from insurance company. Stefanie Crawford MA documented in this encounterBarney Children'S Medical Center07-18-2022 Miscellaneous Notes* Telephone Encounter - Jennifer Holm LPN - 09/08/2021 12:49 PM EDT Notified daughter via [employer] that office was working on PA. * Telephone Encounter - Donnell Dooley MD - 09/08/2021 12:32 PM EDT See other message. Pill for exelon tends to be worse for side effects than aricept. Patch is not. We are going to try and see if I can get them to approve the patch. * Telephone Encounter - Sherron Wei RN - 09/08/2021 11:36 AM EDT PT order sent to [facility] at fax # [phone]. She also reports that the patch the provider ordered for the Pt was declined by her insurance. She states her mom can take the pill and is [facility]. documented in this encounterBarney Children'S Medical Center07-14-2022 History of Present illness Narrative* Donnell Dooley MD - 09/04/2021 4:05 PM EDT Patient presents with: Follow Up: 3 month follow up Back Pain: sciatica right leg 1 week HPI: Patient presents today for office visit for follow up. Had some neck soreness a month ago but was put on a medrol per the DRAPERY COUNSELOR at her facility and it improved. Now having some issues with her right hip and back on her leg. Hurts to lay down and move. No falls or trauma. No redness or warmth in the leg. Has some mild numbness No issues controlling bowel or bladder. Neuro:will not take aricept. [place] dizzy. Has menier's also. PULM: still wearing oxygen prn. Still using her inhalers. Sees Dr. Antunez at pulmonary Heme/onc:follows with Dr Mcmillan. MEDICATIONS: Current Outpatient Medications Medication Sig calcium carbonate (TUMS ORAL) Take 1 tablet by mouth at bedtime as needed. benzonatate (TESSALON PERLE) 100 mg capsule Take 1 capsule by mouth three times daily as needed. nystatin (MYCOSTATIN) 100,000 unit/mL suspension three times daily. donepezil (ARICEPT) 5 mg tablet Take 1 tablet by mouth daily at bedtime. Cholecalciferol, Vitamin D3, (VITAMIN D) 25 mcg (1,000 unit) cap Take 1,000 Units by mouth once daily. pantoprazole DR (PROTONIX) 40 mg tablet Take 1 tablet by mouth once daily. SYMBICORT 160-4.5 mcg/actuation inhaler Inhale 2 Puffs as instructed twice daily. VENTOLIN HFA 90 mcg/actuation inhaler Inhale 2 Puffs as instructed every 6 hours as needed for Wheezing/Shortness of Breath. OXYGEN, HOME THERAPY, Inhale 3 L/min as instructed as directed. tiotropium (SPIRIVA WITH HANDIHALER) 18 mcg inhalation capsule INHALE THE CONTENTS OF ONE CAPSULE VIA HANDIHALER ONCE DAILY Zinc 50 mg tab Take 50 mg by mouth once daily. (Patient not taking: Reported on 08/19/2021 ) ipratropium-albuterol (DUONEB) 0.5 mg-3 mg(2.5 mg base)/3 mL nebu Inhale 3 mL as instructed every 6hours as needed (wheezing/shortness of breath). fluticasone (FLONASE) 50 mcg/actuation nasal spray Use 1 [place] in each nostril once daily. CALCIUM ORAL Take 1 tablet by mouth once daily. MAGNESIUM ORAL Take 1 tablet by mouth once daily. No current facility-administered medications for this visit. ALLERGIES: ALLERGIES Allergen Reactions Augmentin [Amoxicil* Vomiting Codeine GI Upset, Vomiting Shellfish Containin* Swelling, Anaphylaxis, Shortness of Breath, Other: See Comments, Hives No serious trouble with recent re-introduction of shellfish into diet. Bacitracin Itching Latex Rash PAST MEDICAL HISTORY Diagnosis Date Breast cancer (HCC) Left mastectomy. Right mastectomy. Bilateral reconstructions. No chemo/XRT. Cervical cancer (HCC) Remote. SOHEILA/BSO. No chemo or XRT. COPD (chronic obstructive pulmonary disease) (HCC) Gastroenteritis History of ileus Meniere's disease [facility]. Meningioma (HCC) Mitral valve regurgitation Non Hodgkin's lymphoma (HCC) About 14 years ago. No XRT, chemotherapy. Watchful waiting. Osteoporosis PAST SURGICAL HISTORY Procedure Laterality Date BREAST RECONSTRUCTION CATARACT EXTRACTION HX Bilateral 2011 CATARACT SURGERY, COMPLEX COLONOSCOPY W/BIOPSY SINGLE/MULTIPLE 10/12/2016 D&C DIAG &/OR THERAP, NOT OB EGD EGD TRANSORAL BIOPSY SINGLE/MULTIPLE 10/12/2016 HEMORRHOIDECTOMY MASTECTOMY HX Bilateral 1982 PAST SURGICAL HISTORY OF Bronchial artery embolization, left lung PAST SURGICAL HISTORY OF 2002 Lymph node removal on left arm SLING OPER STRES INCONTINENCE TOT ABDOMINL HYSTERECTOMY 1984 FAMILY HISTORY Problem Relation Age of Onset Alzheimer's Disease Mother in her 80s. Aneurysm Father AAA at age 61. other (Chronic bronchitis.) Father other (Other) Brother Parkinson's vs [place]'s. age 61. other (Other) Other Meningioma: multiple cousins Social History Tobacco Use Smoking status: Former Smoker Packs/day: 1.00 Years: 30.00 Pack years: 30.00 Types: Cigarettes Quit date: 02/22/1999 Years since quittin.5 Smokeless tobacco: Never Used Tobacco comment: Father smoked in childhood home. Vaping Use Vaping Use: Never used Substance Use Topics Alcohol use: Yes Alcohol/week: 10.0 standard drinks Types: 4 Glasses of Wine (5oz) per week Comment: With dinner. Drug use: No Reviewed current medications, allergies, past medical history, surgical history, family history andsocial history today. REVIEW OF SYSTEMS All other reviewed and negative other than HPI. HEALTH MAINTENANCE: Reviewed health maintenance issues today and recommended the following in detail. DEPRESSION SCREENING due on 06/10/2021 VITALS: BP 162/82 Pulse 72 Wt 44 kg (97 lb) BMI 18.94 kg/m Last 4 Encounter Wt Readings: Date: Wt: 09/04/2021 44 kg (97 lb) 08/04/2021 43.5 kg (96 lb) 06/04/2021 43.5 kg (96 lb) 05/06/2021 43 kg (94 lb 12.8 oz) PHYSICAL EXAMINATION: General appearance: Well appearing, alert, in no acute distress, well-hydrated, well nourished. Skin: Skin color, texture, turgor normal, no suspicious rashes or lesions Head: Normocephalic, no masses, lesions, tenderness or abnormalities BACK: Normal curvature of spine. No spine tenderness. Tender over right sciatic notch. Straight legtest positive at 45 degrees. Deep tendon reflexes 2+/4 at patellas. Normal lower extremity strength. Lungs: Lungs clear to auscultation. No wheezing, rhonchi, rales Heart: RRR without murmur, gallop, or rubs. No ectopy Abdomen: Normal abdominal exam, Abdomen soft, non-tender. Bowel sounds normal. No masses, organomegaly Extremities: No deformities, edema, skin discoloration, clubbing or cyanosis. Good capillary refill. , no redness or calf tenderness. ASSESSMENT/PLAN: 1. Mild cognitive disorder - ICD9: 294.9, ICD10: F09 (primary diagnosis) - Discussed risks and benefits of new medication with the patient. Advised them to call if any sideeffects or questions. - update with Progress report in one month - RIVASTIGMINE 4.6 MG/24 HOUR TRANSDERMAL PATCH 2. Pulmonary emphysema, unspecified emphysema type (HCC) - ICD9: 492.8, ICD10: J43.9 3. Sciatica, right side - ICD9: 724.3, ICD10: M54.31 - Discussed risks and benefits of new medication with the patient. Advised them to call if any sideeffects or questions. Red flags for re-assessment reviewed with patient in detail. Call if symptoms worsen at all or if not better by early next week. Consider physical therapy Reviewed diagnosis and treatment options in detail. Questions were answered. Patient expressed understanding of treatment plan. - XR LUMBAR GENERAL 3V AP/LAT/L5-S1 - PREDNISONE 20 MG TABLET 4. History of breast cancer - ICD9: V10.3, ICD10: Z85.3 - per onc 5. Personal history of CLL (chronic lymphocytic leukemia) - ICD9: V10.61, ICD10: Z85.6 - Per onc Donnell Dooley RTO in three months and prn. documented in this encounterBarney Children'S Medical Center06-28-2022 Instructions* Patient Instructions* Danika Helms - 08/19/2021 11:19 AM EDT Use toe spacer or lambs wool to prevent rubbing Follow-up every 4 weeks for callus paring. documented in this encounterBarney Children'S Medical Center06-28-2022 History of Present illness Narrative* Danika Helms - 08/19/2021 10:58 AM EDT Images from the original note were not included. FOLLOW UP PODIATRIC OFFICE VISIT Chief Complaint: This 81 year old who presents for follow up:painful callus of right 2nd toe Patient presents to clinic for follow-up painful callus of right 2nd toe. She uses padding which does provide some relief but all of a sudden, the callus returns and she experiences pain. She uses wider shoes because of the callus. She is interested in possibly pursuing surgery. Her grand daughter is getting November 22. She would either prefer to have surgery now or have it after the wed. PAIN EVALUATION 08/19/2021 1051 Pain Level: patient unable to rate, states it's just very sore Pain Location: Foot-Right Description: Sore Duration Amount of Time: 1 Duration Units: Years Frequency: Intermittent Intervention/Comfort measure: Reposition;Relaxation;Other: See comment OTC callus pad Hemoglobin A1C Date Value Ref Range Status 09/16/2017 5.5 4.3 - 5.6 % Final PCP: Donnell Dooley MD PAST MEDICAL HISTORY Diagnosis Date Breast cancer (HCC) Left mastectomy. Right mastectomy. Bilateral reconstructions. No chemo/XRT. Cervical cancer (HCC) Remote. SOHEILA/BSO. No chemo or XRT. COPD (chronic obstructive pulmonary disease) (HCC) Gastroenteritis History of ileus Meniere's disease [facility]. Meningioma (HCC) Mitral valve regurgitation Non Hodgkin's lymphoma (HCC) About 14 years ago. No XRT, chemotherapy. Watchful waiting. Osteoporosis Current Outpatient Medications Medication Sig calcium carbonate (TUMS ORAL) Take 1 tablet by mouth at bedtime as needed. benzonatate (TESSALON PERLE) 100 mg capsule Take 1 capsule by mouth three times daily as needed. nystatin (MYCOSTATIN) 100,000 unit/mL suspension three times daily. donepezil (ARICEPT) 5 mg tablet Take 1 tablet by mouth daily at bedtime. Cholecalciferol, Vitamin D3, (VITAMIN D) 25 mcg (1,000 unit) cap Take 1,000 Units by mouth once daily. SYMBICORT 160-4.5 mcg/actuation inhaler Inhale 2 Puffs as instructed twice daily. VENTOLIN HFA 90 mcg/actuation inhaler Inhale 2 Puffs as instructed every 6 hours as needed for Wheezing/Shortness of Breath. OXYGEN, HOME THERAPY, Inhale 3 L/min as instructed as directed. tiotropium (SPIRIVA WITH HANDIHALER) 18 mcg inhalation capsule INHALE THE CONTENTS OF ONE CAPSULE VIA HANDIHALER ONCE DAILY ipratropium-albuterol (DUONEB) 0.5 mg-3 mg(2.5 mg base)/3 mL nebu Inhale 3 mL as instructed every 6hours as needed (wheezing/shortness of breath). fluticasone (FLONASE) 50 mcg/actuation nasal spray Use 1 [place] in each nostril once daily. CALCIUM ORAL Take 1 tablet by mouth once daily. MAGNESIUM ORAL Take 1 tablet by mouth once daily. pantoprazole DR (PROTONIX) 40 mg tablet Take 1 tablet by mouth once daily. Zinc 50 mg tab Take 50 mg by mouth once daily. (Patient not taking: Reported on 08/19/2021 ) No current facility-administered medications for this visit. ALLERGIES Allergen Reactions Augmentin [Amoxicil* Vomiting Codeine GI Upset, Vomiting Shellfish Containin* Swelling, Anaphylaxis, Shortness of Breath, Other: See Comments, Hives No serious trouble with recent re-introduction of shellfish into diet. Bacitracin Itching Latex Rash PAST SURGICAL HISTORY Procedure Laterality Date BREAST RECONSTRUCTION CATARACT EXTRACTION HX Bilateral 2011 CATARACT SURGERY, COMPLEX COLONOSCOPY W/BIOPSY SINGLE/MULTIPLE 10/12/2016 D&C DIAG &/OR THERAP, NOT OB EGD EGD TRANSORAL BIOPSY SINGLE/MULTIPLE 10/12/2016 HEMORRHOIDECTOMY MASTECTOMY HX Bilateral 1982 PAST SURGICAL HISTORY OF Bronchial artery embolization, left lung PAST SURGICAL HISTORY OF 2002 Lymph node removal on left arm SLING OPER STRES INCONTINENCE TOT ABDOMINL HYSTERECTOMY 1984 Physical Exam: OBJECTIVE: Constitutional: Pt is a well developed 81 year old female who is alert, oriented, cooperative and in no apparent distress. Eyes: Following during examination. No redness or drainage. Respiratory: RR normal and nonlabored. Even breathing. No evidence of distress. Psychology: Patient is engaged during conversation. Normal affect and mood. Does not appear depressed or anxious. NVSI unchanged from previous visit. Dermatological: Callus present to right 2nd toe medial aspect There is callus of right hallux lateral ipj that upon debridement, has very superficial, 1 mm open wound. No sign of infection. Musculoskeletal/Orthopaedic: Patient has pain to palpation of left hallux lateral aspect at site of underlying superficial wound. Mild bunion with advanced arthritic changes of 1st mtpj. xrays from april reviewed. She has bunion with arthritis of right 1st mtpj ASSESSMENT: (M20.11) Hallux valgus of right foot (primary encounter diagnosis) (L84) Callus of foot Ulceration of foot PLAN: Discussed callus of right 1st and 2nd toe. The etiology of the callus is rubbing from right great toe. Today, I debrided the callus of right 1st and 2nd toe with 15 blade and tissue nippers. She has very small wound of right hallux that measures 1 mm. Today, debridement was performed with tissue nippers thru dermis. Total debridement was 1 mm x 1 mm. I want her to use neosporin and band aid to the right great toe. Once the wound heals, I will have her use gel pad on 2nd toe to prevent rubbing. I do believe the cause of the wound is bunion/arthritis. We discussed options from a surgical standpoint 1. Amputation of right 2nd toe 2. Arthroplasty of right 2nd pipj 3. Fusion of right 1st mtpj. This patient would like to pursue fusion of right 1st mtpj. Could consider arthroplasty if necessary of 2nd toe but I think once the great toe is straight, there will be no rubbing. We discussed recovery. She would like to have surgery after the weddning in November. I will plan to see her every 3-4 weeks to shave the callus to prevent ulceration from forming. * Tammy Daniel RN - 08/19/2021 10:51 AM EDT AMB ROOMING INTAKE FLOWSHEET DATA Pain Pain Level: (patient unable to rate, states it's just very sore) Pain Location: Foot-Right Description: Sore Duration Amount of Time: (1) Duration Units: Years Frequency: Intermittent Intervention/Comfort measure: Reposition, Relaxation, Other: See comment (OTC callus pad) Patient presents with: Right Foot - Established Patient, Callous Patient would like to discuss surgical options. Her granddaughter is getting in November andshe would like to either have surgery now or wait until after the wedding. documented in this encounterBarney Children'S Medical Center06-13-2022 History of Present illness Narrative* Jane Mcmillan MD - 08/04/2021 11:17 AM EDT PATIENT NAME: Madison Lofton. CLINIC NO: [id number]. ATTENDING PHYSICIAN: Jane Mcmillan MD. DATE OF SERVICE:08/04/2021 DIAGNOSIS: History of SLL & breast cancer, bilateral mastectomy - meningioma HPI: 81-year-old female with history of CLL/SLL well-differentiated lymphocytic lymphoma since 2002. Patient has been monitored closely and previously had a lymph node biopsy consistent with her diagnosis. Patient has minimal symptoms, and was treated previously with rituximab over 10 years ago. Patient had no further treatment and bone marrow biopsy that showed minimal involvement with [id number] lymphoma. (CD5 positive, monoclonal B-cell population, 23% sample and bone marrow consistentwith CLL) Patient had diminished immunoglobulin levels with no sign of infection in the past. She also had an episode of thrombocytopenia in 2014 which resolved spontaneously. FISH-CLL panel last year showed no evidence of structural or chromosomal alteration. PET/CT scan in 2013 showed no evidenceof lymphoma. Patient has history of COPD from previous tobacco use ([id number]) and quit over 30 years ago. Patient also had history of borderline hypertension, and episode of hemoptysis recur bronchial artery embolization 2006. Patient was diagnosed with early breast cancer over 40 years ago and had bilateral mastectomy and total abdominal hysterectomy. She did not have any chemotherapy, radiation or hormonal/endocrine therapy for breast cancer. Family history significant for breast cancer and ovarian cancer. interim history: She denied fever, chills, or night sweats. She has no chest pain, cough or shortness of breath. She has no abdominal pain, bloating or jaundice. Her appetite and weight has been stable . No headaches or neurological symptoms. Her only symptom is increased fatigue and dizziness Blayne ni re disease All medications & allergies updated and reviewed by me. REVIEW OF SYSTEMS: CONSTITUTIONAL: No fevers, chills, nightsweats, unintended weight loss HEENT: Denies frequent or severe heaches, nasal congestion/sinus symptoms, problematic allergy problems. EYES: No diplopia or blurry vision. CARDIOVASCULAR: No chest pain, dyspnea, palpitations, orthopnea, PND, ankle edema. PULM: No dyspnea, unexplained cough. GI: No abdominal pain, bloating, dysphagia/odynophagia, problematic reflux, constipation, diarrhea,changes in stool habits, hematochezia, melena. : No new urinary complaints, including dysuria, gross hematuria or pyuria. NEURO: No new balance problems, peripheral weakness/paresthesias or numbness of concern. MUSC-SKEL: No new joint pain, swelling, or erythema. PSY: No concerns regarding depression, anxiety or panic. INTEGUMENTARY: No new skin changes (rash, new or changing mole, new growth) PHYSICAL EXAMINATION: 81-year-old female in no acute distress BP 125/77 Pulse 54 Temp (Src) 98.1 (Temporal) Wt 96 lb (43.5kg) HEENT: Head is normocephalic, atraumatic. Sclerae white, conjunctivae pink. PEERL. EOMs are intact.Oropharynx is benign. LYMPHATICS: There is no palpable adenopathy in the neck, supraclavicular region, axillae, or groin. BREASTS: Bilateral mastectomy with reconstruction prosthesis. LUNGS: Lungs are clear to percussion and auscultation. HEART: Heart is normal without murmurs, gallops, or rubs. ABDOMEN: Soft and nontender without hepatosplenomegaly. No masses can be palpated. EXTREMITIES: Are without edema. NEUROLOGIC: Exam is physiologic LABORATORY DATA: Component Latest Ref Rng & Units 08/04/2021 WBC 3.70 - 11.00 k/uL 14.94 (H) RBC 3.90 - 5.20 m/uL 4.44 Hemoglobin 11.5 - 15.5 g/dL 13.8 Hematocrit 36.0 - 46.0 % 40.5 MCV 80.0 - 100.0 fL 91.2 MCH 26.0 - 34.0 pg 31.1 MCHC 30.5 - 36.0 g/dL 34.1 RDW-CV 11.5 - 15.0 % 13.9 Platelet Count 150 - 400 k/uL 214 MPV 9.0 - 12.7 fL 11.1 Neut% % 60.7 Abs Neut (ANC) 1.45 - 7.50 k/uL 9.07 (H) Lymph% % 29.9 Abs Lymph 1.00 - 4.00 k/uL 4.46 (H) [place]% % 5.7 Abs [place] <0.87 k/uL 0.85 Eosin% % 2.7 Abs Eosin <0.46 k/uL 0.40 Baso% % 0.7 Abs Baso <0.11 k/uL 0.11 (H) Immature Gran % % 0.3 IMMATURE GRANS (ABS) <0.10 k/uL 0.05 NRBC /100 WBC 0.0 Absolute nRBC <0.01 k/uL <0.01 DTYPE Auto Component Latest Ref Rng & Units 08/04/2021 Protein, Total 6.3 - 8.0 g/dL 6.3 Albumin 3.9 - 4.9 g/dL 4.4 Calcium 8.5 - 10.2 mg/dL 10.0 Bilirubin, Total 0.2 - 1.3 mg/dL 0.4 Alkaline Phosphatase 34 - 123 U/L 102 AST 13 - 35 U/L 29 ALT 7 - 38 U/L 26 Glucose 74 - 99 mg/dL 89 BUN 7 - 21 mg/dL 24 (H) Creatinine 0.58 - 0.96 mg/dL 0.77 Sodium 136 - 144 mmol/L 140 Potassium 3.7 - 5.1 mmol/L 3.8 Chloride 97 - 105 mmol/L 101 CO2 22 - 30 mmol/L 29 Anion Gap 9 - 18 mmol/L 10 eGFR >=60 mL/min/1.73m 79 LD 135 - 214 U/L 260 (H) MRI brain: COMPARISON: 03/15/2018. 03/21/2019 IMPRESSION: No significant change in the appearance of the brain since 03/15/2018. Right petroclival dural thickening minimally extending into right Meckel's caves and abutting the cavernous sinus with no significant mass effect on the brainstem. Moderate microvascular ischemic change and mild volume loss. ASSESSMENT: 81 year-old female with history of CLL/SLL, she was previous treated with rituximab. - Clinically, stable with no progression of disease on exam - history of breast cancer, bilateral mastectomy MAJO - Meningioma also stable on MRI with no neurological symptoms PLAN: - Continue observation, no treatment is needed at this time for her lymphoma. -.Repeat CBC, CMP, LDH and OV in 1 year Portions of this documentation were copied and pasted from previous office visit notes in order to provide a cohesive continuity of the history. The note has been reviewed and edited and updated as necessary. Jane Mcmillan MD. Cc: Dr. Donnell Dooley documented in this encounterBar[facility] History of Present illness Narrative* Donnell Dooley MD - 06/04/2021 2:14 PM EDT Patient presents with: Follow Up: memory issue HPI: Patient presents today for office visit for follow up. Previous MMSE was Reviewed work up. Will follow potassium and thyroid. Does get frustrated with her memory. She has an appt coming up with neurology. I did offer that we could add something like aricept Discussed risks and benefits of new medication with the patient. Advised them to call if any side effects or questions. She is willing to try it. No headache. No new numbness or weakness. See previous ov: Complains of mild dysuria on and off for two weeks. No hematuria. No incontinence. No falls or new balance issues. Poor appetite. Has noted some luq discomfort as above. No real changes with her bowels. Some heartburn. She is taking tums at night to help with symptoms. She used to be on protonix but is now off. Dr Barfield had treated the ulcer. Sees Dr. Barfield in a few weeks. See previous note. Family concerned with memory. Accompanied by her and her daughter. They have moved to [place] in October. Has had issues with memory assessments done recently. Did have an issues about six weeks ago where she was not feeling well and was saying strange things. Has had episodes where she is talking about things that did not occur. She has also noted some issues with her memory. 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 Short term memory has been an issues. Has really been going on since the fall in hind sight. Is up and down. No new headaches. Has meniere's-just saw Dr. Mendosa. No focal numbness or weakness. No vision or speech issues. Has had issues where she feels like she has had some issues with finding words. No chest pain No new shortness of breath. No palpitations. No syncope. No fever. No worsening cough or bowel changes. Has been seeing Dr. Friend. She is taking a teaspoon of mineral oil and kiwi extract Component Latest Ref Rng & Units 05/06/2021 WBC 3.70 - 11.00 k/uL 13.36 (H) RBC 3.90 - 5.20 m/uL 4.83 Hemoglobin 11.5 - 15.5 g/dL 14.7 Hematocrit 36.0 - 46.0 % 46.3 (H) MCV 80.0 - 100.0 fL 95.9 MCH 26.0 - 34.0 pg 30.4 MCHC 30.5 - 36.0 g/dL 31.7 RDW-CV 11.5 - 15.0 % 13.6 Platelet Count 150 - 400 k/uL 219 MPV 9.0 - 12.7 fL 11.8 NRBC /100 WBC 0.0 Absolute nRBC <0.01 k/uL <0.01 Neut% % 54.0 Abs Neut (ANC) 1.45 - 7.50 k/uL 7.21 Lymph% % 45.0 Abs Lymph 1.00 - 4.00 k/uL 6.01 (H) [place]% % 0.0 Abs [place] <0.87 k/uL 0.00 Eosin% % 1.0 Abs Eosin <0.46 k/uL 0.13 Baso% % 0.0 Abs Baso <0.11 k/uL 0.00 Platelet Estimate Adequate Red Cell Morph Reviewed Ovalocytes Few RBC Fragments None Seen Few (A) DTYPE Manual Color Yellow Yellow Clarity Clear Clear Glucose, Urine Negative Negative Bilirubin, Urine Negative Negative Ketones, Urine Negative Negative Specific [place], Ur 1.005 - 1.030 1.019 Hemoglobin/Blood,Ur Negative Negative pH, Urine 5.0 - 8.0 5.0 Protein, Urine Negative Negative Urobilinogen Negative Negative Nitrites Negative Negative Leukest Negative Trace (A) WBC, Urine 0-5 /HPF 0-5 /HPF RBC, Urine 0-3 /HPF 0-3 /HPF Epithelial Cells /HPF Few Non-Squamous Epithelial Cells None Seen /HPF Few (A) Protein, Total 6.3 - 8.0 g/dL 6.3 Albumin 3.9 - 4.9 g/dL 4.6 Calcium 8.5 - 10.2 mg/dL 9.7 Bilirubin, Total 0.2 - 1.3 mg/dL 0.3 Alkaline Phosphatase 34 - 123 U/L 80 AST 13 - 35 U/L 27 ALT 7 - 38 U/L 24 Glucose 74 - 99 mg/dL 77 BUN 7 - 21 mg/dL 24 (H) Creatinine 0.58 - 0.96 mg/dL 0.73 Sodium 136 - 144 mmol/L 144 Potassium 3.7 - 5.1 mmol/L 3.5 (L) Chloride 97 - 105 mmol/L 104 CO2 22 - 30 mmol/L 29 Anion Gap 9 - 18 mmol/L 11 eGFR >=60 mL/min/1.73m 84 GLUCOSE UA (POCT) Negative mg/dL Negative BILIRUBIN UA (POCT) Negative Negative KETONE UA (POCT) Negative mg/dL Negative SPECIFIC GRAVITY UA (POCT) 1.005 - 1.030 1.025 HEMOGLOBIN/BLOOD UA (POCT) Negative Trace-lysed (A) PH UA (POCT) 4.5 - 8.0 5.5 PROTEIN UA (POCT) Negative mg/dL Negative UROBILINOGEN UA (POCT) Normal E.U./dL 0.2 NITRITE UA (POCT) Negative Negative LEUKOCYTES UA (POCT) Negative Negative COLOR UA (POCT) Yellow CLARITY UA (POCT) Clear Syphilis Screen Result Nonreactive Nonreactive Syphilis Interpretation Cannot exclude recent Treponemal infection if specimen collected within 7-10 days after appearance of suspect lesions or 2-3 weeks after an exposure. Clinical correlation is required. Culture No growth (<1,000 CFU/ml) Folate >4.7 ng/mL 13.2 Vitamin B1 (TDP), Whole Blood 84.3 - 213.3 nmol/L 244.3 (H) WSR 0 - 20 mm/hr 2 Lipase 16 - 61 U/L 51 MRI: No significant change in the appearance of the brain since 03/15/2018. Right petroclival dural thickening minimally extending into right Meckel's caves and abutting the cavernous sinus with no significant mass effect on the brainstem. Moderate microvascular ischemic change and mild volume loss. MEDICATIONS: Current Outpatient Medications Medication Sig nystatin (MYCOSTATIN) 100,000 unit/mL suspension three times daily. Cholecalciferol, Vitamin D3, (VITAMIN D) 25 mcg (1,000 unit) cap Take 1,000 Units by mouth once daily. pantoprazole DR (PROTONIX) 40 mg tablet Take 1 tablet by mouth once daily. ZSTSZDT-ONNBJGIYS-ISNA ORAL Take by mouth. SYMBICORT 160-4.5 mcg/actuation inhaler Inhale 2 Puffs as instructed twice daily. VENTOLIN HFA 90 mcg/actuation inhaler Inhale 2 Puffs as instructed every 6 hours as needed for Wheezing/Shortness of Breath. OXYGEN, HOME THERAPY, Inhale 3 L/min as instructed as directed. tiotropium (SPIRIVA WITH HANDIHALER) 18 mcg inhalation capsule INHALE THE CONTENTS OF ONE CAPSULE VIA HANDIHALER ONCE DAILY Zinc 50 mg tab Take 50 mg by mouth once daily. ipratropium-albuterol (DUONEB) 0.5 mg-3 mg(2.5 mg base)/3 mL nebu Inhale 3 mL as instructed every 6hours as needed (wheezing/shortness of breath). fluticasone (FLONASE) 50 mcg/actuation nasal spray Use 1 [place] in each nostril once daily. CALCIUM ORAL Take 1 tablet by mouth once daily. MAGNESIUM ORAL Take 1 tablet by mouth once daily. No current facility-administered medications for this visit. ALLERGIES: ALLERGIES Allergen Reactions Augmentin [Amoxicil* Vomiting Codeine GI Upset, Vomiting Shellfish Containin* Swelling, Anaphylaxis, Shortness of Breath, Other: See Comments, Hives No serious trouble with recent re-introduction of shellfish into diet. Bacitracin Itching Latex Rash PAST MEDICAL HISTORY Diagnosis Date Breast cancer (HCC) Left mastectomy. Right mastectomy. Bilateral reconstructions. No chemo/XRT. Cervical cancer (HCC) Remote. SOHEILA/BSO. No chemo or XRT. COPD (chronic obstructive pulmonary disease) (HCC) Gastroenteritis History of ileus Meniere's disease [facility]. Meningioma (HCC) Mitral valve regurgitation Non Hodgkin's lymphoma (HCC) About 14 years ago. No XRT, chemotherapy. Watchful waiting. Osteoporosis PAST SURGICAL HISTORY Procedure Laterality Date BREAST RECONSTRUCTION CATARACT EXTRACTION HX Bilateral 2011 CATARACT SURGERY, COMPLEX COLONOSCOPY W/BIOPSY SINGLE/MULTIPLE 10/12/2016 D&C DIAG &/OR THERAP, NOT OB EGD EGD TRANSORAL BIOPSY SINGLE/MULTIPLE 10/12/2016 HEMORRHOIDECTOMY MASTECTOMY HX Bilateral 1982 PAST SURGICAL HISTORY OF Bronchial artery embolization, left lung PAST SURGICAL HISTORY OF 2003 Lymph node removal on left arm SLING OPER STRES INCONTINENCE TOT ABDOMINL HYSTERECTOMY 1984 FAMILY HISTORY Problem Relation Age of Onset Alzheimer's Disease Mother in her 80s. Aneurysm Father AAA at age 61. other (Chronic bronchitis.) Father other (Other) Brother Parkinson's vs [place]'s. age 61. other (Other) Other Meningioma: multiple cousins Social History Tobacco Use Smoking status: Former Smoker Packs/day: 1.00 Years: 30.00 Pack years: 30.00 Types: Cigarettes Quit date: 02/22/1999 Years since quittin.2 Smokeless tobacco: Never Used Tobacco comment: Father smoked in childhood home. Vaping Use Vaping Use: Never used Substance Use Topics Alcohol use: Yes Alcohol/week: 10.0 standard drinks Types: 4 Glasses of Wine (5oz) per week Comment: With dinner. Drug use: No Reviewed current medications, allergies, past medical history, surgical history, family history andsocial history today. REVIEW OF SYSTEMS All other reviewed and negative other than HPI. HEALTH MAINTENANCE: Reviewed health maintenance issues today ADVANCE DIRECTIVE DISCUSSION done. See chart. Has a new medical power of litigation attorney form VITALS: BP 138/82 Pulse 70 Wt 43.5 kg (96 lb) SpO2 99% BMI 18.75 kg/m Last 4 Encounter Wt Readings: Date: Wt: 06/04/2021 43.5 kg (96 lb) 05/06/2021 43 kg (94 lb 12.8 oz) 12/20/2020 43.1 kg (95 lb) 10/01/2020 42.8 kg (94 lb 6.4 oz) PHYSICAL EXAMINATION: General appearance: Well appearing, alert, [...] swelling, deformity, or tenderness Peripheral pulses: Normal Neuro: Gait normal. Reflexes normal and symmetric. Sensation grossly intact. ASSESSMENT/PLAN: 1. Hypokalemia - ICD9: 276.8, ICD10: E87.6 (primary diagnosis) - check labs. - TSH BLD - POTASSIUM BLD 2. Mild cognitive impairment - ICD9: 331.83, ICD10: G31.84 - Discussed risks and benefits of new medication with the patient. Advised them to call if any sideeffects or questions. - see neuro - TSH BLD - DONEPEZIL 5 MG TABLET 3. Meningioma (HCC) - ICD9: 225.2, ICD10: D32.9 - unchanged. 4. Pulmonary emphysema, unspecified emphysema type (HCC) - ICD9: 492.8, ICD10: J43.9 - stable. 5. Personal history of CLL (chronic lymphocytic leukemia) - ICD9: V10.61, ICD10: Z85.6 - stable. Donnell Dooley RTO in three months and prn. documented in this encounterBarney [facility]04-04-[facility] History of Present illness Narrative* RT Nkechi(R) - 05/26/2021 2:20 PM EDT Radiology Service Progress Note DATE OF SERVICE: May 26, 2021 TIME: 3:06 PM PATIENT IDENTITY VERIFICATION COMPLETED USING TWO (2) STANDARD IDENTIFIERS: Name and Date of confirmed by patient verbally. FALL SCREENING: Has the patient had 2 falls in the last year or 1 fall with injury or currently using an Ambulatory Assistive Device (Walker, Cane, Wheelchair, Crutches, etc.)? No PATIENT GENDER DATA: Female. status: : No status: NO. PATIENT RELEVANT IMPLANT DATA REVIEWED: Yes ALLERGIES: Reviewed and unchanged CONTRAST ALLERGY: NO. EXAM: MRI - CONTRAST TYPE: GROUP II PERIPHERAL IV DATA: Ambulatory: A peripheral IV was started in the Right antecubital site with a Angio cath: 22 gauge. RADIOLOGY DEPARTMENT: MR; Exam(s) Completed: Head: Routine Brain SIGNATURE: RT Nkechi(R) PATIENT NAME: Madison Lofton DATE: May 26, 2021 TIME: 3:06 PM documented in this encounterBarney [facility]03-15-2022 History of Present illness Narrative* Magali Lau RT(R) - 05/06/2021 3:00 PM EDT Radiology Service Progress Note PATIENT NAME: Madison Lofton DATE OF SERVICE: May 06, 2021 TIME: 2:55 PM PATIENT IDENTITY VERIFICATION COMPLETED USING TWO (2) IDENTIFIERS: Name and Date of confirmedby patient verbally. FALL SCREENING: Has the patient had 2 falls in the last year or 1 fall with injury or currently using an Ambulatory Assistive Device (Walker, Cane, Wheelchair, Crutches, etc.)? No PATIENT GENDER DATA: Female. status: : No status: NO. PATIENT RELEVANT IMPLANT DATA REVIEWED: Yes RADIOLOGY DEPARTMENT: General X-ray: Exam(s) Completed: Chest X-Ray PERIPHERAL IV DATA: Not applicable SIGNED BY: RT Angelica(R) May 06, 2021 2:55 PM documented in this encounterBarney [facility]03-21-[facility] History of Past illness Narrative* Problem Noted Date Resolved Date History of breast cancer in female 05/12/2017 03/24/2018 Epigastric pain 05/11/2016 12/20/2020 Non Hodgkin's lymphoma 1 Overview: About 14 years ago. No XRT, chemotherapy. Watchful waiting. documented as of this encounter (statuses as of 05/26/2021) [facility] of Past illness Narrative* Problem Noted Date Resolved Date History of breast cancer in female 05/12/2017 03/24/2018 Epigastric pain 05/11/2016 12/20/2020 Non Hodgkin's lymphoma 1 Overview: About 14 years ago. No XRT, chemotherapy. Watchful waiting. documented as of this encounter (statuses as of 05/27/2021) [facility] of Past illness Narrative* Problem Noted Date Resolved Date History of breast cancer in female 05/12/2017 03/24/2018 Epigastric pain 05/11/2016 12/20/2020 Non Hodgkin's lymphoma Overview: About 14 years ago. No XRT, chemotherapy. Watchful waiting. documented as of this encounter (statuses as of 06/04/2021) [address]21-2018 History of Past illness Narrative* Problem Noted Date Resolved Date History of breast cancer in female 05/12/2017 03/24/2018 Epigastric pain 05/11/2016 12/20/2020 documented as of this encounter (statuses as of 08/05/2021) [address]21-2018 History of Past illness Narrative* Problem Noted Date Resolved Date History of breast cancer in female 05/12/2017 03/24/2018 Epigastric pain 05/11/2016 12/20/2020 documented as of this encounter (statuses as of 08/19/2021) [address]21-2018 History of Past illness Narrative* Problem Noted Date Resolved Date History of breast cancer in female 05/12/2017 03/24/2018 Epigastric pain 05/11/2016 12/20/2020 documented as of this encounter (statuses as of 09/04/2021) [address]21-2018 History of Past illness Narrative* Problem Noted Date Resolved Date History of breast cancer in female 05/12/2017 03/24/2018 Epigastric pain 05/11/2016 12/20/2020 documented as of this encounter (statuses as of 09/08/2021) [address]21-2018 History of Past illness Narrative* Problem Noted Date Resolved Date History of breast cancer in female 05/12/2017 03/24/2018 Epigastric pain 05/11/2016 12/20/2020 documented as of this encounter (statuses as of 09/09/2021) [address]21-2018 History of Past illness Narrative* Problem Noted Date Resolved Date History of breast cancer in female 05/12/2017 03/24/2018 Epigastric pain 05/11/2016 12/20/2020 documented as of this encounter (statuses as of 09/15/2021) [address]21-2018 History of Past illness Narrative* Problem Noted Date Resolved Date History of breast cancer in female 05/12/2017 03/24/2018 Epigastric pain 05/11/2016 12/20/2020 documented as of this encounter (statuses as of 09/16/2021) [address]21-2018 History of Past illness Narrative* Problem Noted Date Resolved Date History of breast cancer in female 05/12/2017 03/24/2018 Epigastric pain 05/11/2016 12/20/2020 documented as of this encounter (statuses as of 09/23/2021) [address]21-2018 History of Past illness Narrative* Problem Noted Date Resolved Date History of breast cancer in female 05/12/2017 03/24/2018 Epigastric pain 05/11/2016 12/20/2020 documented as of this encounter (statuses as of 10/09/2021) [address]21-2018 History of Past illness Narrative* Problem Noted Date Resolved Date History of breast cancer in female 05/12/2017 03/24/2018 Epigastric pain 05/11/2016 12/20/2020 documented as of this encounter (statuses as of 10/23/2021) [address]21-2018 History of Past illness Narrative* Problem Noted Date Resolved Date History of breast cancer in female 05/12/2017 03/24/2018 Epigastric pain 05/11/2016 12/20/2020 documented as of this encounter (statuses as of 10/29/2021) [address]21-2018 History of Past illness Narrative* Problem Noted Date Resolved Date History of breast cancer in female 05/12/2017 03/24/2018 Epigastric pain 05/11/2016 12/20/2020 documented as of this encounter (statuses as of 11/06/2021) [address]21-2018 History of Past illness Narrative* Problem Noted Date Resolved Date History of breast cancer in female 05/12/2017 03/24/2018 Epigastric pain 05/11/2016 12/20/2020 documented as of this encounter (statuses as of 11/20/2021) [address]21-2018 History of Past illness Narrative* Problem Noted Date Resolved Date History of breast cancer in female 05/12/2017 03/24/2018 Epigastric pain 05/11/2016 12/20/2020 documented as of this encounter (statuses as of 12/09/2021) [facility] Narrative* Problem Noted Date Resolved Date History of breast cancer in female 05/12/2017 03/24/2018 Epigastric pain 05/11/2016 12/20/2020 documented as of this encounter (statuses as of 12/22/2021) [facility] Narrative* Problem Noted Date Resolved Date History of breast cancer in female 05/12/2017 03/24/2018 Epigastric pain 05/11/2016 12/20/2020 documented as of this encounter (statuses as of 01/27/2022) [address]-2018 History of Past illness Narrative* Problem Noted Date Resolved Date History of breast cancer in female 05/12/2017 03/24/2018 Epigastric pain 05/11/2016 12/20/2020 documented as of this encounter (statuses as of 03/16/2022) [facility] Narrative* Problem Noted Date Resolved Date History of breast cancer in female 05/12/2017 03/24/2018 Epigastric pain 05/11/2016 12/20/2020 documented as of this encounter (statuses as of 03/16/2022) [facility] Narrative* Problem Noted Date Resolved Date History of breast cancer in female 05/12/2017 03/24/2018 Epigastric pain 05/11/2016 12/20/2020 documented as of this encounter (statuses as of 03/28/2022) [facility] Narrative* Problem Noted Date Resolved Date History of breast cancer in female 05/12/2017 03/24/2018 Epigastric pain 05/11/2016 12/20/2020 documented as of this encounter (statuses as of 04/15/2022) [facility] Narrative* Problem Noted Date Resolved Date History of breast cancer in female 05/12/2017 03/24/2018 Epigastric pain 05/11/2016 12/20/2020 documented as of this encounter (statuses as of 04/30/2022) [address]-2018 History of Past illness Narrative* Problem Noted Date Resolved Date History of breast cancer in female 05/12/2017 03/24/2018 Epigastric pain 05/11/2016 12/20/2020 documented as of this encounter (statuses as of 05/14/2022) [facility] N[facility]ative* Problem Noted Date Resolved Date History of breast cancer in female 05/12/2017 03/24/2018 Epigastric pain 05/11/2016 12/20/2020 documented as of this encounter (statuses as of 05/20/2022) [facility] Narrative* Problem Noted Date Resolved Date History of breast cancer in female 05/12/2017 03/24/2018 Epigastric pain 05/11/2016 12/20/2020 Chronic bronchitis 06/15/2022 Overview: Sees Dr. Antunez at [facility] documented as of this encounter (statuses as of 06/15/2022) [facility] Narrative* Problem Noted Date Resolved Date History of breast cancer in female 05/12/2017 03/24/2018 Epigastric pain 05/11/2016 12/20/2020 Chronic bronchitis 06/15/2022 Overview: Sees Dr. Antunez at [facility] documented as of this encounter (statuses as of 06/18/2022) [facility] Narrative* Problem Noted Date Resolved Date History of breast cancer in female 05/12/2017 03/24/2018 Epigastric pain 05/11/2016 12/20/2020 Chronic bronchitis 06/15/2022 Overview: Sees Dr. Antunez at [facility] documented as of this encounter (statuses as of 06/18/2022) [facility] Narrative* Problem Noted Date Resolved Date History of breast cancer in female 05/12/2017 03/24/2018 Epigastric pain 05/11/2016 12/20/2020 Chronic bronchitis 06/15/2022 Overview: Sees Dr. Antunez at [facility] documented as of this encounter (statuses as of 06/27/2022) [facility] Narrative* Problem Noted Date Resolved Date History of breast cancer in female 05/12/2017 03/24/2018 Epigastric pain 05/11/2016 12/20/2020 Chronic bronchitis 06/15/2022 Overview: Sees Dr. Antunez at [facility] documented as of this encounter (statuses as of 07/23/2022) [facility] Narrative* Problem Noted Date Diagnosed Date Resolved Date History of breast cancer in female 05/12/2017 03/24/2018 Epigastric pain 05/11/2016 12/20/2020 Chronic bronchitis 3 Overview: Sees Dr. Antunez at [facility] documented as of this encounter (statuses as of 09/17/2022) [facility] History of Past illness Narrative* Problem Noted Date Diagnosed Date Resolved Date History of breast cancer in female 05/12/2017 03/24/2018 Epigastric pain 05/11/2016 12/20/2020 Chronic bronchitis 3 Overview: Sees Dr. Antunez at [facility] documented as of this encounter (statuses as of 10/02/2022) [facility]2018 History of Past illness Narrative* Problem Noted Date Diagnosed Date Resolved Date History of breast cancer in female 05/12/2017 03/24/2018 Epigastric pain 05/11/2016 12/20/2020 Chronic bronchitis 3 Overview: Seerohan Antunez at [facility] documented as of this encounter (statuses as of 10/06/2022) [facility]2018 History of Past illness Narrative* Problem Noted Date Diagnosed Date Resolved Date History of breast cancer in female 05/12/2017 03/24/2018 Epigastric pain 05/11/2016 12/20/2020 Chronic bronchitis 3 Overview: Seerohan Antunez at [facility] documented as of this encounter (statuses as of 10/07/2022) [facility] History of Past illness Narrative* Problem Noted Date Diagnosed Date Resolved Date History of breast cancer in female 05/12/2017 03/24/2018 Epigastric pain 05/11/2016 12/20/2020 Chronic bronchitis 3 Overview: Sees Dr. Antunez at [facility] documented as of this encounter (statuses as of 10/07/2022) [facility] History of Past illness Narrative* Problem Noted Date Diagnosed Date Resolved Date History of breast cancer in female 05/12/2017 03/24/2018 Epigastric pain 05/11/2016 12/20/2020 Chronic bronchitis 3 Overview: Sees Dr. Antunez at [facility] documented as of this encounter (statuses as of 10/09/2022) [facility] History of Past illness Narrative* Problem Noted Date Diagnosed Date Resolved Date History of breast cancer in female 05/12/2017 03/24/2018 Epigastric pain 05/11/2016 12/20/2020 Chronic bronchitis 3 Overview: Seerohan Antunez at [facility] documented as of this encounter (statuses as of 10/12/2022) [facility] History of Past illness Narrative* Problem Noted Date Diagnosed Date Resolved Date History of breast cancer in female 05/12/2017 03/24/2018 Epigastric pain 05/11/2016 12/20/2020 Chronic bronchitis 3 Overview: Seerohan Antunez at [facility] documented as of this encounter (statuses as of 10/13/2022) [facility] History of Past illness Narrative* Problem Noted Date Diagnosed Date Resolved Date History of breast cancer in female 05/12/2017 03/24/2018 Epigastric pain 05/11/2016 12/20/2020 Chronic bronchitis 3 Overview: Seerohan Antunez at [facility] documented as of this encounter (statuses as of 10/13/2022) [facility] History of Past illness Narrative* Problem Noted Date Diagnosed Date Resolved Date History of breast cancer in female 05/12/2017 03/24/2018 Epigastric pain 05/11/2016 12/20/2020 Chronic bronchitis 3 Overview: Seerohan Antunez at [facility] documented as of this encounter (statuses as of 10/20/2022) [facility] History of Past illness Narrative* Problem Noted Date Diagnosed Date Resolved Date History of breast cancer in female 05/12/2017 03/24/2018 Epigastric pain 05/11/2016 12/20/2020 Chronic bronchitis 3 Overview: Sees Dr. Antunez at [facility] documented as of this encounter (statuses as of 10/22/2022) [facility] History of Past illness Narrative* Problem Noted Date Diagnosed Date Resolved Date History of breast cancer in female 05/12/2017 03/24/2018 Epigastric pain 05/11/2016 12/20/2020 Chronic bronchitis 3 Overview: Seerohan Antunez at [facility] documented as of this encounter (statuses as of 10/29/2022) [facility] History of Past illness Narrative* Problem Noted Date Diagnosed Date Resolved Date History of breast cancer in female 05/12/2017 03/24/2018 Epigastric pain 05/11/2016 12/20/2020 Chronic bronchitis 3 Overview: Seerohan Antunez at [facility] documented as of this encounter (statuses as of 11/16/2022) [facility] History of Past illness Narrative* Problem Noted Date Diagnosed Date Resolved Date History of breast cancer in female 05/12/2017 03/24/2018 Epigastric pain 05/11/2016 12/20/2020 Chronic bronchitis 3 Overview: Seerohan Antunez at [facility] documented as of this encounter (statuses as of 12/04/2022) [facility] History of Past illness Narrative* Problem Noted Date Diagnosed Date Resolved Date History of breast cancer in female 05/12/2017 03/24/2018 Epigastric pain 05/11/2016 12/20/2020 Chronic bronchitis 3 Overview: Sees Dr. Antunez at [facility] documented as of this encounter (statuses as of 12/09/2022) [facility] History of Past illness Narrative* Problem Noted Date Diagnosed Date Resolved Date History of breast cancer in female 05/12/2017 03/24/2018 Epigastric pain 05/11/2016 12/20/2020 Chronic bronchitis 3 Overview: Sees Dr. Antunez at [facility] documented as of this encounter (statuses as of 12/11/2022) [facility] Thrush- Primary Candidiasis of mouth [facility] Diagnosis Brain mass Unspecified condition of brain Meningioma (HCC) Benign neoplasm of cerebral meninges [facility] Diagnosis Hypokalemia- Primary Hypopotassemia Mild cognitive impairment Mild cognitive impairment, so stated Meningioma (HCC) Benign neoplasm of cerebral meninges Pulmonary emphysema, unspecified emphysema type (HCC) Personal history of CLL (chronic lymphocytic leukemia) Personal history of lymphoid leukemia [facility] History of breast cancer- Primary Personal history of malignant neoplasm of breast Small B-cell lymphoma, unspecified body region (HCC) Meningioma (HCC) Benign neoplasm of cerebral meninges [facility] Diagnosis Hallux valgus of right foot- Primary Callus of foot Corns and callosities [facility] Diagnosis Mild cognitive disorder- Primary Unspecified persistent mental disorders due to conditions classified elsewhere Pulmonary emphysema, unspecified emphysema type (HCC) Sciatica, right side History of breast cancer Personal history of malignant neoplasm of breast Personal history of CLL (chronic lymphocytic leukemia) Personal history of lymphoid leukemia [facility] Diagnosis Mild cognitive impairment- Primary Mild cognitive impairment, so stated [facility] Diagnosis Onset Date Resolution Status Constipation acute Gastritis acute Hx of small bowel obstruction acute Thrush acute Chronic respiratory failure with hypoxia chronic COPD (chronic obstructive pulmonary disease) [facility] Work Phone: Evaluation note* Diagnosis Acute midline low back pain without sciatica- Primary [facility]* Diagnosis DDD (degenerative disc disease), lumbar- Primary Degeneration of lumbar or lumbosacral intervertebral disc [facility] Diagnosis Hallux valgus of right foot- Primary Callus of foot Corns and callosities Onychomycosis Dermatophytosis of nail [facility] [place] [facility] Diagnosis Decreased strength- Primary Muscle weakness (generalized) Unsteady gait Abnormality of gait Balance problem Other symptoms involving nervous and musculoskeletal systems [facility] Diagnosis Callus of foot- Primary Corns and callosities Hallux valgus of right foot [facility] Diagnosis Mild cognitive impairment- Primary Mild cognitive impairment, so stated Encounter for immunization Need for other specified prophylactic vaccination against single bacterial disease Meningioma (HCC) Benign neoplasm of cerebral meninges Mitral valve insufficiency, unspecified etiology Pulmonary emphysema, unspecified emphysema type (HCC) Small B-cell lymphoma, unspecified body region (HCC) [facility] Diagnosis Callus of foot- Primary Corns and callosities Hallux valgus of right foot Onychomycosis Dermatophytosis of nail Pain in toe of left foot Pain in limb [facility] Diagnosis Hallux valgus of right foot- Primary Ulcer of toe of right foot, limited to breakdown of skin (HCC) [facility] [place] [facility]* Diagnosis Acute cough- Primary Rhinosinusitis Unspecified sinusitis (chronic) [facility] [place] [facility] Diagnosis Hallux valgus of right foot- Primary Callus of foot Corns and callosities Ulcer of toe of right foot, limited to breakdown of skin (HCC) [facility] Diagnosis Onset Date Resolution Status Chronic respiratory failure with hypoxia chronic COPD (chronic obstructive pulmonary disease) 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, unspecified body region (HCC) Pulmonary emphysema, unspecified emphysema type (HCC) Chronic respiratory failure with hypoxia (HCC) Chronic respiratory failure Atrial fibrillation, unspecified type (HCC) Mild cognitive impairment Mild cognitive impairment, so stated MVP (mitral valve prolapse) Mitral valve disorders Age-related osteoporosis without current pathological fracture Senile osteoporosis Mixed hyperlipidemia [facility] Diagnosis Hallux valgus of right foot- Primary Callus of foot Corns and callosities Open wound of toe, initial encounter [facility] Diagnosis Hypercalcemia- Primary [facility]* Diagnosis Callus of foot- Primary Corns and callosities Hallux valgus of right foot [facility]* Diagnosis Mild cognitive impairment- Primary Mild cognitive impairment, so stated Meningioma (HCC) Benign neoplasm of cerebral meninges Atrial fibrillation, unspecified type (HCC) Mixed hyperlipidemia Mitral valve insufficiency, unspecified etiology MVP (mitral valve prolapse) Mitral valve disorders Chronic respiratory failure with hypoxia (HCC) Chronic respiratory failure Pulmonary emphysema, unspecified emphysema type (HCC) Personal history of CLL (chronic lymphocytic leukemia) Personal history of lymphoid leukemia History of breast cancer Personal history of malignant neoplasm of breast Meniere's disease of both ears Meniere's disease, unspecified Small B-cell lymphoma, unspecified body region (HCC) Age-related osteoporosis without current pathological fracture Senile osteoporosis Hammer toe of right foot [facility] Diagnosis Onychomycosis- Primary Dermatophytosis of nail Pain in toe of left foot Pain in limb Pain in toe of right foot Pain in limb Callus of foot Corns and callosities Hallux valgus of right foot Hammer toe of right foot [facility]* Diagnosis Post-operative state- Primary Other postprocedural status [facility]* Diagnosis Post-operative state- Primary Other postprocedural status [facility]* Diagnosis Post-operative state- Primary Other postprocedural status Callus of foot Corns and callosities [facility]* Diagnosis Chest pain, unspecified type- Primary [facility] [place] [facility] Diagnosis Mild cognitive impairment- Primary Mild cognitive impairment, so stated MVP (mitral valve prolapse) Mitral valve disorders Mixed hyperlipidemia Meningioma (HCC) Benign neoplasm of cerebral meninges History of breast cancer Personal history of malignant neoplasm of breast Small B-cell lymphoma, unspecified body region (HCC) Age-related osteoporosis without current pathological fracture Senile osteoporosis Pulmonary emphysema, unspecified emphysema type (HCC) VHD (valvular heart disease) Endocarditis, valve unspecified, unspecified cause [facility] [place] [facility]* Diagnosis Small B-cell lymphoma, unspecified body region (HCC) [facility] [place] [facility]* Diagnosis Cellulitis of skin Cellulitis and abscess of unspecified site Left ankle swelling Effusion of ankle and foot joint Discoloration of skin of lower leg Dyschromia, unspecified Acute left ankle pain Blister of left lower extremity, initial encounter Localized edema Edema [facility] [place] [facility]* Diagnosis Cellulitis of skin- Primary Cellulitis and abscess of unspecified site Left ankle swelling Effusion of ankle and foot joint Discoloration of skin of lower leg Dyschromia, unspecified Acute left ankle pain Blister of left lower extremity, initial encounter Localized edema Edema [facility] [place] [facility]* Diagnosis Cellulitis of skin- Primary Cellulitis and abscess of unspecified site Left ankle swelling Effusion of ankle and foot joint Discoloration of skin of lower leg Dyschromia, unspecified Acute left ankle pain Blister of left lower extremity, initial encounter [facility] [place] [facility]* Diagnosis Venous stasis ulcer of left lower leg with edema of left lower leg (HCC) (HCC)- Primary [facility] [place] [facility]* Diagnosis Venous stasis ulcer of other part of lower leg limited to breakdown of skin, unspecified laterality, unspecified whether varicose veins present (HCC)- Primary documented in this encounter [facility] note* Diagnosis Mixed hyperlipidemia- Primary VHD (valvular heart disease) Endocarditis, valve unspecified, unspecified cause Pulmonary emphysema, unspecified emphysema type (HCC) Chronic respiratory failure with hypoxia (HCC) Chronic respiratory failure Meniere's disease of both ears Meniere's disease, unspecified Small B-cell lymphoma, unspecified body region (HCC) History of breast cancer Personal history of malignant neoplasm of breast Personal history of CLL (chronic lymphocytic leukemia) Personal history of lymphoid leukemia Meningioma (HCC) Benign neoplasm of cerebral meninges Mild cognitive impairment Mild cognitive impairment, so stated Ulcer of toe of right foot, limited to breakdown of skin (HCC) [facility] Diagnosis Pelvic pain- Primary UTI symptoms Other symptoms involving urinary system [facility] [place] [facility]* Diagnosis Pelvic pain [facility] [place] [facility]* Diagnosis Eye pain, bilateral- Primary [facility] [place] [facility]* Diagnosis Urinary frequency- Primary [facility] [place] [facility]* Diagnosis Acute cough Pre-operative examination- Primary Preoperative examination, unspecified Atrial fibrillation, unspecified type (HCC) Chronic respiratory failure with hypoxia (HCC) Chronic respiratory failure Mild cognitive impairment Mild cognitive impairment, so stated Pulmonary emphysema, unspecified emphysema type (HCC) Small B-cell lymphoma, unspecified body region (HCC) Meningioma (HCC) Benign neoplasm of cerebral meninges Age-related osteoporosis without current pathological fracture Senile osteoporosis History of breast cancer Personal history of malignant neoplasm of breast Meniere's disease of both ears Meniere's disease, unspecified VHD (valvular heart disease) Endocarditis, valve unspecified, unspecified cause [facility] [place] [facility]* Diagnosis Sciatica, right side Pre-operative examination- Primary Preoperative examination, unspecified Atrial fibrillation, unspecified type (HCC) Chronic respiratory failure with hypoxia (HCC) Chronic respiratory failure Mild cognitive impairment Mild cognitive impairment, so stated Pulmonary emphysema, unspecified emphysema type (HCC) Small B-cell lymphoma, unspecified body region (HCC) Meningioma (HCC) Benign neoplasm of cerebral meninges Age-related osteoporosis without current pathological fracture Senile osteoporosis History of breast cancer Personal history of malignant neoplasm of breast Meniere's disease of both ears Meniere's disease, unspecified VHD (valvular heart disease) Endocarditis, valve unspecified, unspecified cause [facility] [place] [facility]* Diagnosis Mild cognitive impairment Mild cognitive impairment, so stated Pre-operative examination- Primary Preoperative examination, unspecified Atrial fibrillation, unspecified type (HCC) Chronic respiratory failure with hypoxia (HCC) Chronic respiratory failure Mild cognitive impairment Mild cognitive impairment, so stated Pulmonary emphysema, unspecified emphysema type (HCC) Small B-cell lymphoma, unspecified body region (HCC) Meningioma (HCC) Benign neoplasm of cerebral meninges Age-related osteoporosis without current pathological fracture Senile osteoporosis History of breast cancer Personal history of malignant neoplasm of breast Meniere's disease of both ears Meniere's disease, unspecified VHD (valvular heart disease) Endocarditis, valve unspecified, unspecified cause [facility] [place] [facility]* Diagnosis Pre-operative examination- Primary Preoperative examination, unspecified Atrial fibrillation, unspecified type (HCC) Chronic respiratory failure with hypoxia (HCC) Chronic respiratory failure Mild cognitive impairment Mild cognitive impairment, so stated Pulmonary emphysema, unspecified emphysema type (HCC) Small B-cell lymphoma, unspecified body region (HCC) Meningioma (HCC) Benign neoplasm of cerebral meninges Age-related osteoporosis without current pathological fracture Senile osteoporosis History of breast cancer Personal history of malignant neoplasm of breast Meniere's disease of both ears Meniere's disease, unspecified VHD (valvular heart disease) Endocarditis, valve unspecified, unspecified cause Mixed hyperlipidemia- Primary Small B-cell lymphoma, unspecified body region (HCC) documented in this encounter [facility] note* Diagnosis Pre-operative examination- Primary Preoperative examination, unspecified Atrial fibrillation, unspecified type (HCC) Chronic respiratory failure with hypoxia (HCC) Chronic respiratory failure Mild cognitive impairment Mild cognitive impairment, so stated Pulmonary emphysema, unspecified emphysema type (HCC) Small B-cell lymphoma, unspecified body region (HCC) Meningioma (HCC) Benign neoplasm of cerebral meninges Age-related osteoporosis without current pathological fracture Senile osteoporosis History of breast cancer Personal history of malignant neoplasm of breast Meniere's disease of both ears Meniere's disease, unspecified VHD (valvular heart disease) Endocarditis, valve unspecified, unspecified cause Mixed hyperlipidemia- Primary VHD (valvular heart disease) Endocarditis, valve unspecified, unspecified cause Meningioma (HCC) 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 Meniere's disease, unspecified Pulmonary emphysema, unspecified emphysema type (HCC) Personal history of CLL (chronic lymphocytic leukemia) Personal history of lymphoid leukemia History of breast cancer Personal history of malignant neoplasm of breast Mild cognitive impairment Mild cognitive impairment, so stated Age-related osteoporosis without current pathological fracture Senile osteoporosis documented in this encounter [facility] note* Diagnosis Pre-operative examination- Primary Preoperative examination, unspecified Atrial fibrillation, unspecified type (HCC) Chronic respiratory failure with hypoxia (HCC) Chronic respiratory failure Mild cognitive impairment Mild cognitive impairment, so stated Pulmonary emphysema, unspecified emphysema type (HCC) Small B-cell lymphoma, unspecified body region (HCC) Meningioma (HCC) Benign neoplasm of cerebral meninges Age-related osteoporosis without current pathological fracture Senile osteoporosis History of breast cancer Personal history of malignant neoplasm of breast Meniere's disease of both ears Meniere's disease, unspecified VHD (valvular heart disease) Endocarditis, valve unspecified, unspecified cause Onychomycosis- Primary Dermatophytosis of nail Diminished pulses in lower extremity Other symptoms involving cardiovascular system [facility] Diagnosis Pre-operative examination- Primary Preoperative examination, unspecified Atrial fibrillation, unspecified type (HCC) Chronic respiratory failure with hypoxia (HCC) Chronic respiratory failure Mild cognitive impairment Mild cognitive impairment, so stated Pulmonary emphysema, unspecified emphysema type (HCC) Small B-cell lymphoma, unspecified body region (HCC) Meningioma (HCC) Benign neoplasm of cerebral meninges Age-related osteoporosis without current pathological fracture Senile osteoporosis History of breast cancer Personal history of malignant neoplasm of breast Meniere's disease of both ears Meniere's disease, unspecified VHD (valvular heart disease) Endocarditis, valve unspecified, unspecified cause Bacterial pneumonia- Primary Bacterial pneumonia, unspecified [facility] Additional Instructions Continue to use ice 20 minutes on, 20 minutes off. Follow-up with your orthopedic surgeon. Another orthopedic surgeon name and number has been given to you as discussed for a second option for left shoulder pain. You can take Tylenol with Mobic daily as [facility] Work Phone: Reason for referral (narrative)* Diagnostic Procedure Only (Routine) - Closed Specialty Diagnoses / Procedures Referred By Contac t Referred To Contact XR IMAGING Diagnoses Sciatica, right side Procedures XR LUMBAR GENERAL 3V AP/LAT/L5-S1 RADEX SPINE LUMBOSACRAL 2/3 VIEWS Donnell Dooley MD [id number] [place] [address] Xr Imaging Referral ID Status Reason Start Date Expiration Date V isits Requested Visits Authorized [id number] Closed Auto-Generate d Referral 09/04/2021 10/04/2022 1 1 [facility] for referral (narrative)* Diagnostic Procedure Only (Routine) - Closed Specialty Diagnoses / Procedures Referred By Contac t Referred To Contact XR IMAGING Diagnoses Callus of foot Procedures XR FOOT GENERAL 3V AP/LAT/OBL RIGHT RADEX FOOT COMPLETE MINIMUM 3 VIEWS Danika Helms [address] [place] [address] [place] [address] Referral ID Status Reason Start Date Expiration Date V isits Requested Visits Authorized [id number] Closed Auto-Generate d Referral 10/06/2022 11/05/2023 1 1 [facility] for referral (narrative)* Diagnostic Procedure Only (Urgent) - Closed Specialty Diagnoses / Procedures Referred By Contac t Referred To Contact US IMAGING Diagnoses Cellulitis of skin Left ankle swelling Discoloration of skin of lower leg Acute left ankle pain Blister of left lower extremity, initial encounter Localized edema Procedures US DVT LOWER LEFT DUP-SCAN XTR VEINS UNILATERAL/LIMITED STUDY Dallas Calabrese APRN.MARKER MACHINE [address] [place] [address] [place] [address] Referral ID Status Reason Start Date Expiration Date V isits Requested Visits Authorized [id number] Closed Auto-Generate d Referral 04/02/2023 05/01/2024 1 1 [facility] for referral (narrative)* Diagnostic Procedure Only (Urgent) - Closed Specialty Diagnoses / Procedures Referred By Contac t Referred To Contact US IMAGING Diagnoses Cellulitis of skin Left ankle swelling Discoloration of skin of lower leg Acute left ankle pain Blister of left lower extremity, initial encounter Localized edema Procedures US DVT LOWER LEFT DUP-SCAN XTR VEINS UNILATERAL/LIMITED STUDY Dallas Calabrese APRN.MARKER MACHINE [address] [place] [address] Us Imaging [facility] Referral ID Status Reason Start Date Expiration Date V isits Requested Visits Authorized [id number] Closed Auto-Generate d Referral 04/02/2023 05/01/2024 1 1 * Outpatient Procedure (Urgent) - Pending Review Specialty Diagnoses / Procedures Referred By Contac t Referred To Contact [facility] Diagnoses Cellulitis of skin Left ankle swelling Discoloration of skin of lower leg Acute left ankle pain Blister of left lower extremity, initial encounter Localized edema Procedures US LEG VEIN DVT UNL VAS LAB DUP-SCAN XTR VEINS UNILATERAL/LIMITED STUDY Dallas Calabrese APRN.MARKER MACHINE [address] [place] [address] [facility] [address] [place] [id number] Referral ID Status Reason Start Date Expiration Date Visits Requested Visits Authorized [id number] Pending Review Auto-Generat ed Referral 04/02/2023 04/01/2024 1 1 [facility] for referral (narrative)* Diagnostic Procedure Only (Routine) - Pending Review Specialty Diagnoses / Procedures Referred By Contac t Referred To Contact US IMAGING Diagnoses Urinary frequency Procedures US KIDNEY/BLADDER US RETROPERITONEAL REAL TIME W/IMAGE COMPLETE Morelia Hewitt APRN.MARKER MACHINE [address] [place] [address] Us Imaging [facility] Referral ID Status Reason Start Date Expiration Date Visits Requested Visits Authorized [id number] Pending Review Auto-Generat ed Referral 08/17/2023 09/15/2024 1 1 [facility] for referral (narrative)* Diagnostic Procedure Only (Routine) - Closed Specialty Diagnoses / Procedures Referred By Contac t Referred To Contact XR IMAGING Diagnoses Sciatica, right side Procedures XR LUMBAR GENERAL 3V AP/LAT/L5-S1 RADEX SPINE LUMBOSACRAL 2/3 VIEWS Soumya, Donnell J, MD [address] [place] [address] [place] [address] Referral ID Status Reason Start Date Expiration Date V isits Requested Visits Authorized [id number] Closed Auto-Generate d Referral 09/04/2021 10/04/2022 1 1 [facility] for referral (narrative)* Outpatient Procedure (Routine) - Authorized Specialty Diagnoses / Procedures Referred By Contac t Referred To Contact [facility] Diagnoses Onychomycosis Diminished pulses in lower extremity Procedures PVR ANK PRESS [place] V[facility] NON-INVAS PHYSIOLOGIC STD EXTREMITY ART 2 LEVEL Danika Helms [address] [address] [facility] [address] [place] [id number] Referral ID Status Reason Start Date Expiration Date Visits Requested Visits Authorized [id number] Authorized Auto-Generat ed Referral 02/28/2024 02/27/2025 1 1 [facility] for referral (narrative)No reason for referral information available[facility] Reason for visit Narrative* Diagnostic Procedure Only (Urgent) - Closed Specialty Diagnoses / Procedures Referred By Contac t Referred To Contact US IMAGING Diagnoses Cellulitis of skin Left ankle swelling Discoloration of skin of lower leg Acute left ankle pain Blister of left lower extremity, initial encounter Localized edema Procedures US DVT LOWER LEFT DUP-SCAN XTR VEINS UNILATERAL/LIMITED STUDY Dallas Calabrese, RADHA.MARKER MACHINE [address] [place] [address] [place] [address] Referral ID Status Reason Start Date Expiration Date V isits Requested Visits Authorized [id number] Closed Auto-Generate d Referral 04/02/2023 05/01/2024 1 1 [facility] for visit Narrative* Diagnostic Procedure Only (Routine) - Closed Specialty Diagnoses / Procedures Referred By Contac t Referred To Contact XR IMAGING Diagnoses Sciatica, right side Procedures XR LUMBAR GENERAL 3V AP/LAT/L5-S1 RADEX SPINE LUMBOSACRAL 2/3 VIEWS Donnell Dooley MD [address] [place] [address] [place] [address] Referral ID Status Reason Start Date Expiration Date V isits Requested Visits Authorized [id number] Closed Auto-Generate d Referral 09/04/2021 10/04/2022 1 1 [facility] Advance Directives Documents on File Type Date Recorded Patient Director Of Assessment Expl anation Advance Directive(s) 08/17/2017 6:17 AM Documents on File Type Date Recorded Patient Director Of Assessment Expl anation Advance Directive(s) 08/17/2017 6:17 AM Advance Directive Response Recorded Date/ Time Name of Medical Power of Perfect Binder Feeder Offbearer September 12, 2021 12:09pm Living Will Yes September 12, 2021 12:09pm Power of Perfect Binder Feeder Offbearer Yes September 12 12:09pm Advance Directive Response Recorded Date/ Time Name of Medical Power of Perfect Binder Feeder Offbearer Johanna Salas April 15, 2022 3:45pm Living Will Yes April 15 023 3:45pm Power of Perfect Binder Feeder Offbearer Yes April 15, 2022 3:45pm Advance Directive Response Recorded Date/ Time Name of Medical Power of Perfect Binder Feeder Offbearer johanna salas- daughter November 18, 2022 10:41am Name of Medical Power of Perfect Binder Feeder Offbearer . December 04, 2022 1:36pm Living Will Yes December 04 1:36pm Power of Perfect Binder Feeder Offbearer Yes December 04, 2022 1:36pm Advance Directive Response Recorded Date/ Time Do you have a Healthcare Power of Perfect Binder Feeder Offbearer? Yes August 22, 2024 5:08pm Reason for Referral Specialty Diagnoses / Procedures Referred By Luis Fernando larkin Referred To Contact MR IMAGING Diagnoses Brain mass Meningioma (HCC) Procedures MRI BRAIN WO/W IVCON MRI BRAIN BRAIN STEM W/O W/CONTRAST MATERIAL Donnell Dooley MD [address] [place] [address] Mr Imaging Referral ID Status Reason Start Date Expiration Date V isits Requested Visits Authorized [id number] Closed Auto-Generate d Referral 05/06/2021 06/05/2022 1 1 Specialty Diagnoses / Procedures Referred By Contac t Referred To Contact Pain Management Diagnoses Acute midline low back pain without sciatica Procedures CONSULT TO PAIN MGT OFFICE/OUTPATIENT [facility] MDM 60-74 MINUTES Donnell Dooley MD [address] [place] [address] Referral ID Status Reason Start Date Expiration Date Visits Requested Visits Authorized [id number] Authorized PCP Requested Referral 09/12/2021 09/12/2022 1 1 Specialty Diagnoses / Procedures Referred By Contac t Referred To Contact [facility] Diagnoses Decreased strength Unsteady gait Balance problem Procedures CONSULT TO PHYSICAL THERAPY PHYSICAL THERAPY EVALUATION [facility] COMPLEX 45 MINS Donnell Dooley MD [address] [place] [address] [facility] [address] [place] [address] Referral ID Status Reason Start Date Expiration Date Visits Requested Visits Authorized [id number] Authorized PCP Requested Referral Auto-Generate d Referral 10/29/2021 10/29/2022 99 99 Specialty Diagnoses / Procedures Referred By Contac t Referred To Contact Hematology Diagnoses Small B-cell lymphoma, unspecified body region (HCC) Procedures CONSULT TO HEMATOLOGY OFFICE/OUTPATIENT [facility] MDM 60-74 MINUTES Donnell Dooley MD [address] [place] [address] Referral ID Status Reason Start Date Expiration Date Visits Requested Visits Authorized [id number] Authorized PCP Requested Referral 12/23/2022 12/23/2023 1 1 Specialty Diagnoses / Procedures Referred By Contac t Referred To Contact CT IMAGING Diagnoses Pelvic pain Procedures CT ABD/PEL WO IVCON CT ABD & PELVIS W/O CONTRAST Morelia Hewitt, DRIER HELPER.MARKER MACHINE [address] [place] [address] [place] [address] Referral ID Status Reason Start Date Expiration Date Visits Requested Visits Authorized [id number] Authorized Auto-Generat ed Referral 08/04/2023 09/02/2024 1 1 Chief Complaint and Reason for Visit Chief Complaint 6 WK FU 6 M FU Amb Documentation severe back pain Reason for Visit Constipation Gastritis Hx of small bowel obstruction Thrush Chronic respiratory failure with hypoxia COPD (chronic obstructive pulmonary disease) Chief Complaint 6 M FU abd pain Reason for Visit Chronic respiratory failure with hypoxia COPD (chronic obstructive pulmonary disease) Chief Complaint 6 M FU chest pain L sided pain Reason for Visit Chronic respiratory failure with hypoxia COPD (chronic obstructive pulmonary disease) Chief Complaint Admit Date COPD August 22, 2024 8:07p m Reason for Visit Admit Date Essential hypertension August 22, 2024 8: 07pm Respiratory insufficiency August 22, 2024 8:07pm COPD exacerbation August 22, 2024 8:07p m Family History Relationship Condition Age at Onset Recorded Date/T sonam father Abdominal aortic aneurysm (AAA) Unknown mother Alzheimer's disease Unknown Summary Purpose Additional Source Comments Source Comments (unrecognize d section and content) In the event this informatio n is protected by the Federal Confidentiality of Alcohol and Drug Abuse Patient Records regulations: The Federal rules restrict any use of the information to criminally investigate or prosecute any alcohol or drug abuse patient.[facility] the event this information is protected by the Federal Confidentiality of Alcohol and Drug Abuse Patient Records regulations: The Federal rules restrict any use of the information to criminally investigate or prosecute any alcohol or drug abuse patient.[facility] CenterIn the event this information is protected by the Federal Confidentiality of Alcohol and Drug Abuse Patient Records regulations: The Federal rules restrict any use of the information to criminally investigate or prosecute any alcohol or drug abuse patient.[facility] Center[facility] the event this information is protected by the Federal Confidentiality of Alcohol and Drug Abuse Patient Records regulations: The Federal rules restrict any use of the information to criminally investigate or prosecute any alcohol or drug abuse patient.[facility] CenterIn the event this information is protected by the Federal Confidentiality of Alcohol and Drug Abuse Patient Records regulations: The Federal rules restrict any use of the information to criminally investigate or prosecute any alcohol or drug abuse patient.[facility] CenterIn the event this information is protected by the Federal Confidentiality of Alcohol and Drug Abuse Patient Records regulations: The Federal rules restrict any use of the information to criminally investigate or prosecute any alcohol or drug abuse patient.[facility] CenterIn the event this information is protected by the Federal Confidentiality of Alcohol and Drug Abuse Patient Records regulations: The Federal rules restrict any use of the information to criminally investigate or prosecute any alcohol or drug abuse patient.[facility] CenterIn the event this information is protected by the Federal Confidentiality of Alcohol and Drug Abuse Patient Records regulations: The Federal rules restrict any use of the information to criminally investigate or prosecute any alcohol or drug abuse patient.[facility] CenterIn the event this information is protected by the Federal Confidentiality of Alcohol and Drug Abuse Patient Records regulations: The Federal rules restrict any use of the information to criminally investigate or prosecute any alcohol or drug abuse patient.[facility] CenterIn the event this information is protected by the Federal Confidentiality of Alcohol and Drug Abuse Patient Records regulations: The Federal rules restrict any use of the information to criminally investigate or prosecute any alcohol or drug abuse patient.[facility] CenterIn the event this information is protected by the Federal Confidentiality of Alcohol and Drug Abuse Patient Records regulations: The Federal rules restrict any use of the information to criminally investigate or prosecute any alcohol or drug abuse patient.[facility] CenterIn the event this information is protected by the Federal Confidentiality of Alcohol and Drug Abuse Patient Records regulations: The Federal rules restrict any use of the information to criminally investigate or prosecute any alcohol or drug abuse patient.[facility] CenterIn the event this information is protected by the Federal Confidentiality of Alcohol and Drug Abuse Patient Records regulations: The Federal rules restrict any use of the information to criminally investigate or prosecute any alcohol or drug abuse patient.[facility] CenterIn the event this information is protected by the Federal Confidentiality of Alcohol and Drug Abuse Patient Records regulations: The Federal rules restrict any use of the information to criminally investigate or prosecute any alcohol or drug abuse patient.[facility] CenterIn the event this information is protected by the Federal Confidentiality of Alcohol and Drug Abuse Patient Records regulations: The Federal rules restrict any use of the information to criminally investigate or prosecute any alcohol or drug abuse patient.[facility] CenterIn the event this information is protected by the Federal Confidentiality of Alcohol and Drug Abuse Patient Records regulations: The Federal rules restrict any use of the information to criminally investigate or prosecute any alcohol or drug abuse patient.[facility] CenterIn the event this information is protected by the Federal Confidentiality of Alcohol and Drug Abuse Patient Records regulations: The Federal rules restrict any use of the information to criminally investigate or prosecute any alcohol or drug abuse patient.[facility] CenterIn the event this information is protected by the Federal Confidentiality of Alcohol and Drug Abuse Patient Records regulations: The Federal rules restrict any use of the information to criminally investigate or prosecute any alcohol or drug abuse patient.[facility] CenterIn the event this information is protected by the Federal Confidentiality of Alcohol and Drug Abuse Patient Records regulations: The Federal rules restrict any use of the information to criminally investigate or prosecute any alcohol or drug abuse patient.[facility] CenterIn the event this information is protected by the Federal Confidentiality of Alcohol and Drug Abuse Patient Records regulations: The Federal rules restrict any use of the information to criminally investigate or prosecute any alcohol or drug abuse patient.[facility] CenterIn the event this information is protected by the Federal Confidentiality of Alcohol and Drug Abuse Patient Records regulations: The Federal rules restrict any use of the information to criminally investigate or prosecute any alcohol or drug abuse patient.[facility] CenterIn the event this information is protected by the Federal Confidentiality of Alcohol and Drug Abuse Patient Records regulations: The Federal rules restrict any use of the information to criminally investigate or prosecute any alcohol or drug abuse patient.[facility] CenterIn the event this information is protected by the Federal Confidentiality of Alcohol and Drug Abuse Patient Records regulations: The Federal rules restrict any use of the information to criminally investigate or prosecute any alcohol or drug abuse patient.[facility] CenterIn the event this information is protected by the Federal Confidentiality of Alcohol and Drug Abuse Patient Records regulations: The Federal rules restrict any use of the information to criminally investigate or prosecute any alcohol or drug abuse patient.[facility] CenterIn the event this information is protected by the Federal Confidentiality of Alcohol and Drug Abuse Patient Records regulations: The Federal rules restrict any use of the information to criminally investigate or prosecute any alcohol or drug abuse patient.[facility] CenterIn the event this information is protected by the Federal Confidentiality of Alcohol and Drug Abuse Patient Records regulations: The Federal rules restrict any use of the information to criminally investigate or prosecute any alcohol or drug abuse patient.[facility] CenterIn the event this information is protected by the Federal Confidentiality of Alcohol and Drug Abuse Patient Records regulations: The Federal rules restrict any use of the information to criminally investigate or prosecute any alcohol or drug abuse patient.[facility] CenterIn the event this information is protected by the Federal Confidentiality of Alcohol and Drug Abuse Patient Records regulations: The Federal rules restrict any use of the information to criminally investigate or prosecute any alcohol or drug abuse patient.[facility] CenterIn the event this information is protected by the Federal Confidentiality of Alcohol and Drug Abuse Patient Records regulations: The Federal rules restrict any use of the information to criminally investigate or prosecute any alcohol or drug abuse patient.[facility] CenterIn the event this information is protected by the Federal Confidentiality of Alcohol and Drug Abuse Patient Records regulations: The Federal rules restrict any use of the information to criminally investigate or prosecute any alcohol or drug abuse patient.[facility] CenterIn the event this information is protected by the Federal Confidentiality of Alcohol and Drug Abuse Patient Records regulations: The Federal rules restrict any use of the information to criminally investigate or prosecute any alcohol or drug abuse patient.[facility] CenterIn the event this information is protected by the Federal Confidentiality of Alcohol and Drug Abuse Patient Records regulations: The Federal rules restrict any use of the information to criminally investigate or prosecute any alcohol or drug abuse patient.[facility] CenterIn the event this information is protected by the Federal Confidentiality of Alcohol and Drug Abuse Patient Records regulations: The Federal rules restrict any use of the information to criminally investigate or prosecute any alcohol or drug abuse patient.[facility] CenterIn the event this information is protected by the Federal Confidentiality of Alcohol and Drug Abuse Patient Records regulations: The Federal rules restrict any use of the information to criminally investigate or prosecute any alcohol or drug abuse patient.[facility] CenterIn the event this information is protected by the Federal Confidentiality of Alcohol and Drug Abuse Patient Records regulations: The Federal rules restrict any use of the information to criminally investigate or prosecute any alcohol or drug abuse patient.[facility] CenterIn the event this information is protected by the Federal Confidentiality of Alcohol and Drug Abuse Patient Records regulations: The Federal rules restrict any use of the information to criminally investigate or prosecute any alcohol or drug abuse patient.[facility] CenterIn the event this information is protected by the Federal Confidentiality of Alcohol and Drug Abuse Patient Records regulations: The Federal rules restrict any use of the information to criminally investigate or prosecute any alcohol or drug abuse patient.[facility] CenterIn the event this information is protected by the Federal Confidentiality of Alcohol and Drug Abuse Patient Records regulations: The Federal rules restrict any use of the information to criminally investigate or prosecute any alcohol or drug abuse patient.[facility] the event this information is protected by the Federal Confidentiality of Alcohol and Drug Abuse Patient Records regulations: The Federal rules restrict any use of the information to criminally investigate or prosecute any alcohol or drug abuse patient.[facility] CenterIn the event this information is protected by the Federal Confidentiality of Alcohol and Drug Abuse Patient Records regulations: The Federal rules restrict any use of the information to criminally investigate or prosecute any alcohol or drug abuse patient.[facility] CenterIn the event this information is protected by the Federal Confidentiality of Alcohol and Drug Abuse Patient Records regulations: The Federal rules restrict any use of the information to criminally investigate or prosecute any alcohol or drug abuse patient.[facility]In the event this information is protected by the Federal Confidentiality of Alcohol and Drug Abuse Patient Records regulations: The Federal rules restrict any use of the information to criminally investigate or prosecute any alcohol or drug abuse patient.[facility] CenterIn the event this information is protected by the Federal Confidentiality of Alcohol and Drug Abuse Patient Records regulations: The Federal rules restrict any use of the information to criminally investigate or prosecute any alcohol or drug abuse patient.[facility] CenterIn the event this information is protected by the Federal Confidentiality of Alcohol and Drug Abuse Patient Records regulations: The Federal rules restrict any use of the information to criminally investigate or prosecute any alcohol or drug abuse patient.[facility] CenterIn the event this information is protected by the Federal Confidentiality of Alcohol and Drug Abuse Patient Records regulations: The Federal rules restrict any use of the information to criminally investigate or prosecute any alcohol or drug abuse patient.[facility] CenterIn the event this information is protected by the Federal Confidentiality of Alcohol and Drug Abuse Patient Records regulations: The Federal rules restrict any use of the information to criminally investigate or prosecute any alcohol or drug abuse patient.[facility] CenterIn the event this information is protected by the Federal Confidentiality of Alcohol and Drug Abuse Patient Records regulations: The Federal rules restrict any use of the information to criminally investigate or prosecute any alcohol or drug abuse patient.[facility] CenterIn the event this information is protected by the Federal Confidentiality of Alcohol and Drug Abuse Patient Records regulations: The Federal rules restrict any use of the information to criminally investigate or prosecute any alcohol or drug abuse patient.[facility] CenterIn the event this information is protected by the Federal Confidentiality of Alcohol and Drug Abuse Patient Records regulations: The Federal rules restrict any use of the information to criminally investigate or prosecute any alcohol or drug abuse patient.[facility] CenterIn the event this information is protected by the Federal Confidentiality of Alcohol and Drug Abuse Patient Records regulations: The Federal rules restrict any use of the information to criminally investigate or prosecute any alcohol or drug abuse patient.[facility] CenterIn the event this information is protected by the Federal Confidentiality of Alcohol and Drug Abuse Patient Records regulations: The Federal rules restrict any use of the information to criminally investigate or prosecute any alcohol or drug abuse patient.[facility] CenterIn the event this information is protected by the Federal Confidentiality of Alcohol and Drug Abuse Patient Records regulations: The Federal rules restrict any use of the information to criminally investigate or prosecute any alcohol or drug abuse patient.[facility] CenterIn the event this information is protected by the Federal Confidentiality of Alcohol and Drug Abuse Patient Records regulations: The Federal rules restrict any use of the information to criminally investigate or prosecute any alcohol or drug abuse patient.[facility] CenterIn the event this information is protected by the Federal Confidentiality of Alcohol and Drug Abuse Patient Records regulations: The Federal rules restrict any use of the information to criminally investigate or prosecute any alcohol or drug abuse patient.[facility] CenterIn the event this information is protected by the Federal Confidentiality of Alcohol and Drug Abuse Patient Records regulations: The Federal rules restrict any use of the information to criminally investigate or prosecute any alcohol or drug abuse patient.[facility] CenterIn the event this information is protected by the Federal Confidentiality of Alcohol and Drug Abuse Patient Records regulations: The Federal rules restrict any use of the information to criminally investigate or prosecute any alcohol or drug abuse patient.[facility] CenterIn the event this information is protected by the Federal Confidentiality of Alcohol and Drug Abuse Patient Records regulations: The Federal rules restrict any use of the information to criminally investigate or prosecute any alcohol or drug abuse patient.[facility] CenterIn the event this information is protected by the Federal Confidentiality of Alcohol and Drug Abuse Patient Records regulations: The Federal rules restrict any use of the information to criminally investigate or prosecute any alcohol or drug abuse patient.[facility] CenterIn the event this information is protected by the Federal Confidentiality of Alcohol and Drug Abuse Patient Records regulations: The Federal rules restrict any use of the information to criminally investigate or prosecute any alcohol or drug abuse patient.[facility] CenterIn the event this information is protected by the Federal Confidentiality of Alcohol and Drug Abuse Patient Records regulations: The Federal rules restrict any use of the information to criminally investigate or prosecute any alcohol or drug abuse patient.[facility] CenterIn the event this information is protected by the Federal Confidentiality of Alcohol and Drug Abuse Patient Records regulations: The Federal rules restrict any use of the information to criminally investigate or prosecute any alcohol or drug abuse patient.[facility] CenterIn the event this information is protected by the Federal Confidentiality of Alcohol and Drug Abuse Patient Records regulations: The Federal rules restrict any use of the information to criminally investigate or prosecute any alcohol or drug abuse patient.[facility] CenterIn the event this information is protected by the Federal Confidentiality of Alcohol and Drug Abuse Patient Records regulations: The Federal rules restrict any use of the information to criminally investigate or prosecute any alcohol or drug abuse patient.[facility] CenterIn the event this information is protected by the Federal Confidentiality of Alcohol and Drug Abuse Patient Records regulations: The Federal rules restrict any use of the information to criminally investigate or prosecute any alcohol or drug abuse patient.[facility] CenterIn the event this information is protected by the Federal Confidentiality of Alcohol and Drug Abuse Patient Records regulations: The Federal rules restrict any use of the information to criminally investigate or prosecute any alcohol or drug abuse patient.[facility] CenterIn the event this information is protected by the Federal Confidentiality of Alcohol and Drug Abuse Patient Records regulations: The Federal rules restrict any use of the information to criminally investigate or prosecute any alcohol or drug abuse patient.[facility] CenterIn the event this information is protected by the Federal Confidentiality of Alcohol and Drug Abuse Patient Records regulations: The Federal rules restrict any use of the information to criminally investigate or prosecute any alcohol or drug abuse patient.[facility] CenterIn the event this information is protected by the Federal Confidentiality of Alcohol and Drug Abuse Patient Records regulations: The Federal rules restrict any use of the information to criminally investigate or prosecute any alcohol or drug abuse patient.[facility] CenterIn the event this information is protected by the Federal Confidentiality of Alcohol and Drug Abuse Patient Records regulations: The Federal rules restrict any use of the information to criminally investigate or prosecute any alcohol or drug abuse patient.[facility] CenterIn the event this information is protected by the Federal Confidentiality of Alcohol and Drug Abuse Patient Records regulations: The Federal rules restrict any use of the information to criminally investigate or prosecute any alcohol or drug abuse patient.[facility] CenterIn the event this information is protected by the Federal Confidentiality of Alcohol and Drug Abuse Patient Records regulations: The Federal rules restrict any use of the information to criminally investigate or prosecute any alcohol or drug abuse patient.[facility] CenterIn the event this information is protected by the Federal Confidentiality of Alcohol and Drug Abuse Patient Records regulations: The Federal rules restrict any use of the information to criminally investigate or prosecute any alcohol or drug abuse patient.[facility] CenterIn the event this information is protected by the Federal Confidentiality of Alcohol and Drug Abuse Patient Records regulations: The Federal rules restrict any use of the information to criminally investigate or prosecute any alcohol or drug abuse patient.[facility] CenterIn the event this information is protected by the Federal Confidentiality of Alcohol and Drug Abuse Patient Records regulations: The Federal rules restrict any use of the information to criminally investigate or prosecute any alcohol or drug abuse patient.[facility] CenterIn the event this information is protected by the Federal Confidentiality of Alcohol and Drug Abuse Patient Records regulations: The Federal rules restrict any use of the information to criminally investigate or prosecute any alcohol or drug abuse patient.[facility] CenterIn the event this information is protected by the Federal Confidentiality of Alcohol and Drug Abuse Patient Records regulations: The Federal rules restrict any use of the information to criminally investigate or prosecute any alcohol or drug abuse patient.[facility] CenterIn the event this information is protected by the Federal Confidentiality of Alcohol and Drug Abuse Patient Records regulations: The Federal rules restrict any use of the information to criminally investigate or prosecute any alcohol or drug abuse patient.[facility] CenterIn the event this information is protected by the Federal Confidentiality of Alcohol and Drug Abuse Patient Records regulations: The Federal rules restrict any use of the information to criminally investigate or prosecute any alcohol or drug abuse patient.[facility] CenterIn the event this information is protected by the Federal Confidentiality of Alcohol and Drug Abuse Patient Records regulations: The Federal rules restrict any use of the information to criminally investigate or prosecute any alcohol or drug abuse patient.[facility] CenterIn the event this information is protected by the Federal Confidentiality of Alcohol and Drug Abuse Patient Records regulations: The Federal rules restrict any use of the information to criminally investigate or prosecute any alcohol or drug abuse patient.[facility] CenterIn the event this information is protected by the Federal Confidentiality of Alcohol and Drug Abuse Patient Records regulations: The Federal rules restrict any use of the information to criminally investigate or prosecute any alcohol or drug abuse patient.[facility] CenterIn the event this information is protected by the Federal Confidentiality of Alcohol and Drug Abuse Patient Records regulations: The Federal rules restrict any use of the information to criminally investigate or prosecute any alcohol or drug abuse patient.[facility] CenterIn the event this information is protected by the Federal Confidentiality of Alcohol and Drug Abuse Patient Records regulations: The Federal rules restrict any use of the information to criminally investigate or prosecute any alcohol or drug abuse patient.[facility] CenterIn the event this information is protected by the Federal Confidentiality of Alcohol and Drug Abuse Patient Records regulations: The Federal rules restrict any use of the information to criminally investigate or prosecute any alcohol or drug abuse patient.[facility] CenterIn the event this information is protected by the Federal Confidentiality of Alcohol and Drug Abuse Patient Records regulations: The Federal rules restrict any use of the information to criminally investigate or prosecute any alcohol or drug abuse patient.[facility] CenterIn the event this information is protected by the Federal Confidentiality of Alcohol and Drug Abuse Patient Records regulations: The Federal rules restrict any use of the information to criminally investigate or prosecute any alcohol or drug abuse patient.[facility] CenterIn the event this information is protected by the Federal Confidentiality of Alcohol and Drug Abuse Patient Records regulations: The Federal rules restrict any use of the information to criminally investigate or prosecute any alcohol or drug abuse patient.[facility] CenterIn the event this information is protected by the Federal Confidentiality of Alcohol and Drug Abuse Patient Records regulations: The Federal rules restrict any use of the information to criminally investigate or prosecute any alcohol or drug abuse patient.[facility] CenterIn the event this information is protected by the Federal Confidentiality of Alcohol and Drug Abuse Patient Records regulations: The Federal rules restrict any use of the information to criminally investigate or prosecute any alcohol or drug abuse patient.[facility] CenterIn the event this information is protected by the Federal Confidentiality of Alcohol and Drug Abuse Patient Records regulations: The Federal rules restrict any use of the information to criminally investigate or prosecute any alcohol or drug abuse patient.[facility] Care Teams (unrecognized sec tion and content) Timber Cruiser Relationship Specialty Start Date End Date Donnell Dooley MD [address] [place], [place] [id number] PCP - General Family Practice 05/11/16 Dennis Mendosa [address] [place] [address] Ent - Otolaryngology 03/30/18 Timber Cruiser Relationship Specialty Start Date End Date Donnell Dooley MD [address] [place] [address] PCP - General Family Practice 05/11/16 Dennis Mendosa [address] [place] [address] Ent - Otolaryngology 03/30/18 Timber Cruiser Relationship Specialty Start Date End Date Donnell Dooley MD [address] [place] [address] PCP - General Family Practice 05/11/16 Dennis Mendosa [address] [place] [address] Ent - Otolaryngology 03/30/18 Timber Cruiser Relationship Specialty Start Date End Date Donnell Dooley MD [address] [place] [address] PCP - General Family Practice 05/11/16 Dennis Mendosa [address] [place] [address] Ent - Otolaryngology 03/30/18 Timber Cruiser Relationship Specialty Start Date End Date Donnell Dooley MD [address] [place] [address] PCP - General Family Practice 05/11/16 Dennis Mendosa [address] [place] [address] Ent - Otolaryngology 03/30/18 Timber Cruiser Relationship Specialty Start Date End Date Donnell Dooley MD [address] [place] [address] PCP - General Family Practice 05/11/16 Dennis Mendosa [address] [place] [address] Ent - Otolaryngology 03/30/18 Timber Cruiser Relationship Specialty Start Date End Date Donnell Dooley MD [address] [place] [address] PCP - General Family Practice 05/11/16 Dennis Mendosa [address] [place] [address] Ent - Otolaryngology 03/30/18 Timber Cruiser Relationship Specialty Start Date End Date Donnell Dooley MD [address] [place] [address] PCP - General Family Practice 05/11/16 Dennis Mendosa [address] [place] [address] Ent - Otolaryngology 03/30/18 Timber Cruiser Relationship Specialty Start Date End Date Donnell Dooley MD [address] [place] [address] PCP - General Family Practice 05/11/16 Dennis Mendoas [address] [place] [address] Ent - Otolaryngology 03/30/18 Timber Cruiser Relationship Specialty Start Date End Date Donnell Dooley MD [address] [place] [address] PCP - General Family Practice 05/11/16 Dennis Mendosa [address] [place] [address] Ent - Otolaryngology 03/30/18 Timber Cruiser Relationship Specialty Start Date End Date Donnell Dooley MD [address] [place] [address] PCP - General Family Practice 05/11/16 Dennis Mendosa [address] [place] [address] Ent - Otolaryngology 03/30/18 Timber Cruiser Relationship Specialty Start Date End Date Donnell Dooley MD [address] [place] [address] PCP - General Family Practice 05/11/16 Dennis Mendosa [address] [place] [address] Ent - Otolaryngology 03/30/18 Timber Cruiser Relationship Specialty Start Date End Date Donnell Dooley MD [address] [place] [address] PCP - General Family Practice 05/11/16 Dennis Mendosa [address] [place] [address] Ent - Otolaryngology 03/30/18 Timber Cruiser Relationship Specialty Start Date End Date Donnell Dooley MD [address] [place] [address] PCP - General Family Medicine 05/11/16 Dennis Mendosa [address] [place] [address] Ent - Otolaryngology 03/30/18 Timber Cruiser Relationship Specialty Start Date End Date Donnell Dooley MD [address] [place] [address] PCP - General Family Medicine 05/11/16 Dennis Mendosa [address] [place] [address] Ent - Otolaryngology 03/30/18 Timber Cruiser Relationship Specialty Start Date End Date Donnell Dooley MD [address] [place] [address] PCP - General Family Medicine 05/11/16 Dennis Mendosa [address] [place] [address] Ent - Otolaryngology 03/30/18 Timber Cruiser Relationship Specialty Start Date End Date Donnell Dooley MD [address] [place] [address] PCP - General Family Medicine 05/11/16 Dennis Mendosa [address] [place] [address] Ent - Otolaryngology 03/30/18 Timber Cruiser Relationship Specialty Start Date End Date Donnell Dooley MD [address] [place] [address] PCP - General Family Medicine 05/11/16 Dennis Mendosa [address] [place] [address] Ent - Otolaryngology 03/30/18 Timber Cruiser Relationship Specialty Start Date End Date Donnell Dooley MD [address] [place] [address] PCP - General Family Medicine 05/11/16 Dennis Mendosa [address] [place] [address] Ent - Otolaryngology 03/30/18 Timber Cruiser Relationship Specialty Start Date End Date Donnell Dooley MD [address] [place] [address] PCP - General Family Medicine 05/11/16 Dennis Mendosa [address] [place] [address] Ent - Otolaryngology 03/30/18 Team Status: Active Member Role Status Dates Dr. Donnell Dooley MD Family Provider Active Dr. Donnell Dooley MD Primary Care Provider Active Team Status: Inactive Member Role Status Dates Dr. Donnell Dooley MD Primary Care Provider, Referring Provider Active Sheba Damian DRAPERY COUNSELOR, DRAPERY COUNSELOR-C Attending Provider Active Team Status: Inactive Member Role Status Dates Dr. Donnell Dooley MD Primary Care Provider Active Dr. Jess Kendrick MD Emergency Provider Active Timber Cruiser Relationship Specialty Start Date End Date Donnell Dooley MD [address] [place] [address] PCP - General Family Medicine 05/11/16 Dennis Mendosa [address] [place] [address] Ent - Otolaryngology 03/30/18 Timber Cruiser Relationship Specialty Start Date End Date Donnell Dooley MD [address] [place] [address] PCP - General Family Medicine 05/11/16 Dennis Mendosa [address] [place] [address] Ent - Otolaryngology 03/30/18 Timber Cruiser Relationship Specialty Start Date End Date Donnell Dooley MD [address] [place] [address] PCP - General Family Medicine 05/11/16 Dennis Mendosa [address] [place] [address] Ent - Otolaryngology 03/30/18 Timber Cruiser Relationship Specialty Start Date End Date Donnell Dooley MD [address] [place], [place] [address] PCP - General Family Medicine 05/11/16 Dennis Mendosa [address] [place] [address] Ent - Otolaryngology 03/30/18 Timber Cruiser Relationship Specialty Start Date End Date Donnell Dooley MD [address] [place], [place] 44[address] PCP - General Family Medicine 05/11/16 Dennis Mendosa [address] [place] [address] Ent - Otolaryngology 03/30/18 Timber Cruiser Relationship Specialty Start Date End Date Donnell Dooley MD [address] [place], [place] [address] PCP - General Family Medicine 05/11/16 Dennis Mendosa [address] [place] [address] Ent - Otolaryngology 03/30/18 Timber Cruiser Relationship Specialty Start Date End Date Donnell Dooley MD [address] [place], [place] [address] PCP - General Family Medicine 05/11/16 Dennis Mendosa [address] [place] [address] Ent - Otolaryngology 03/30/18 Timber Cruiser Relationship Specialty Start Date End Date Donnell Dooley MD [address] [place] [address] PCP - General Family Medicine 05/11/16 Dennis Mendosa [address] [place] [address] Ent - Otolaryngology 03/30/18 Timber Cruiser Relationship Specialty Start Date End Date Donnell Dooley MD [address] [place], [place] [address] PCP - General Family Medicine 05/11/16 Dennis Mendosa [address] [place] [address] Ent - Otolaryngology 03/30/18 Timber Cruiser Relationship Specialty Start Date End Date Donnell Dooley MD [address] [place], [place] 368851 PCP - General Family Medicine 05/11/16 Dennis Mendosa [address] [place] [address] Ent - Otolaryngology 03/30/18 Timber Cruiser Relationship Specialty Start Date End Date Donnell Dooley MD [address] [place], [place] [address] PCP - General Family Medicine 05/11/16 Dennis Mendosa [address] [place] [address] Ent - Otolaryngology 03/30/18 Timber Cruiser Relationship Specialty Start Date End Date Donnell Dooley MD [address] [place] [address] PCP - General Family Medicine 05/11/16 Dennis Mendosa [address] [place] [address] Ent - Otolaryngology 03/30/18 Timber Cruiser Relationship Specialty Start Date End Date Donnell Dooley MD [address] [place], [place] [address] PCP - General Family Medicine 05/11/16 Dennis Mendosa [address] [place] [address] Ent - Otolaryngology 03/30/18 Timber Cruiser Relationship Specialty Start Date End Date Donnell Dooley MD [address] [place], [place] 372961 PCP - General Family Medicine 05/11/16 Dennis Mendosa [address] [place] [address] Ent - Otolaryngology 03/30/18 Timber Cruiser Relationship Specialty Start Date End Date Donnell Dooley MD [address] [place], [place] 440791 PCP - General Family Medicine 05/11/16 Dennis Mendosa [address] [place] [address] Ent - Otolaryngology 03/30/18 Timber Cruiser Relationship Specialty Start Date End Date Donnell Dooley MD [address] [place] [address] PCP - General Family Medicine 05/11/16 Dennis Mendosa [address] [place] [address] Ent - Otolaryngology 03/30/18 Team Status: Inactive Member Role Status Dates Dr. Donnell Dooley MD Primary Care Provider, Referring Provider Active Dr. Conrad Antunez , DO Attending Provider Active Team Status: Inactive Member Role Status Dates Dr. Donnell Dooley MD Primary Care Provider Active Dr. Ponce Wang , DO Attending Provider, Emergency Provider Active Team Status: Inactive Member Role Status Dates Dr. Donnell Dooley MD Primary Care Provider Active Dr. Sav Carter , Emergency Provider Active Timber Cruiser Relationship Specialty Start Date End Date Donnell Dooley MD [address] [place], [place] 344541 PCP - General Family Medicine 05/11/16 Dennis Mendosa [address] [place] [address] Ent - Otolaryngology 03/30/18 Timber Cruiser Relationship Specialty Start Date End Date Donnell Dooley MD [address] [place], [place] 603441 PCP - General Family Medicine 05/11/16 Dennis Mendosa [address] [place] [address] Ent - Otolaryngology 03/30/18 Timber Cruiser Relationship Specialty Start Date End Date Donnell Dooley MD [address] [place], [place] 685331 PCP - General Family Medicine 05/11/16 Dennis Mendosa [address] [place] [address] Ent - Otolaryngology 03/30/18 Timber Cruiser Relationship Specialty Start Date End Date Donnell Dooley MD [address] [facility] [place] [address] PCP - General Family Medicine 05/11/16 Dennis Mendosa [address] [place] [address] Ent - Otolaryngology 03/30/18 Margarito Shields MD [address] [facility] [place] [address] [phone] Hematology/Oncology 01/28/23 Timber Cruiser Relationship Specialty Start Date End Date Donnell Dooley MD [address] [facility] [place] 487[address] PCP - General Family Medicine 05/11/16 Dennis Mendosa [address] [place] [address] Ent - Otolaryngology 03/30/18 Margarito Shields MD [address] [address] Hematology/Oncology 01/28/23 Timber Cruiser Relationship Specialty Start Date End Date Donnell Dooley MD [address] [place] [address] PCP - General Family Medicine 05/11/16 Dennis Mendosa [address] [place] [address] Ent - Otolaryngology 03/30/18 Margarito Shields MD [address] [place] [address] Hematology/Oncology 01/28/23 Timber Cruiser Relationship Specialty Start Date End Date Donnell Dooley MD [address] [place] [address] PCP - General Family Medicine 05/11/16 Dennis Mendosa [address] [place] [address] Ent - Otolaryngology 03/30/18 Margarito Shields MD [address] [place], [place] 907421 [phone] Hematology/Oncology 01/28/23 Timber Cruiser Relationship Specialty Start Date End Date Donnell Dooley MD [address] [place] [address] PCP - General Family Medicine 05/11/16 Dennis Mendosa [address] [place] [address] Ent - Otolaryngology 03/30/18 Margarito Shields MD [address] [place] [address] Hematology/Oncology 01/28/23 Timber Cruiser Relationship Specialty Start Date End Date Donnell Dooley MD [address] [place] [address] PCP - General Family Medicine 05/11/16 Dennis Mendosa [address] [place] [address] Ent - Otolaryngology 03/30/18 Margarito Shields MD [address] [place] [address] Hematology/Oncology 01/28/23 Timber Cruiser Relationship Specialty Start Date End Date Donnell Dooley MD [address] [place] [address] PCP - General Family Medicine 05/11/16 Dennis Mendosa [address] [place] [address] Ent - Otolaryngology 03/30/18 Margarito Shields MD [address] [place] [address] Hematology/Oncology 01/28/23 Timber Cruiser Relationship Specialty Start Date End Date Donnell Dooley MD [address] [place], [place] [address] PCP - General Family Medicine 05/11/16 Dennis Mendosa [address] [place] [phone] Ent - Otolaryngology 03/30/18 Margarito Shields MD [address] [place], [place] [address] [phone] Hematology/Oncology 01/28/23 Timber Cruiser Relationship Specialty Start Date End Date Donnell Dooley MD [address] [place] [address] PCP - General Family Medicine 05/11/16 Dennis Mendosa [address] [place] [address] Ent - Otolaryngology 03/30/18 Margarito Shields MD [address] [place] [address] Hematology/Oncology 01/28/23 Timber Cruiser Relationship Specialty Start Date End Date Donnell Dooley MD [address] [place] [address] PCP - General Family Medicine 05/11/16 Dennis Mendosa [address] [place] [address] Ent - Otolaryngology 03/30/18 Margarito Shields MD [address] [place] [address] Hematology/Oncology 01/28/23 Timber Cruiser Relationship Specialty Start Date End Date Donnell Dooley MD [address] [place] [address] PCP - General Family Medicine 05/11/16 Dennis Mendosa [address] [place] [address] Ent - Otolaryngology 03/30/18 Margarito Shields MD [address] [place] [address] Hematology/Oncology 01/28/23 Timber Cruiser Relationship Specialty Start Date End Date Donnell Dooley MD [address] [place] [address] PCP - General Family Medicine 05/11/16 Dennis Mendosa [address] [place] [phone] Ent - Otolaryngology 03/30/18 Margarito Shields MD [address] [place] [address] Hematology/Oncology 01/28/23 Timber Cruiser Relationship Specialty Start Date End Date Donnell Dooley MD [address] [place] [address] PCP - General Family Medicine 05/11/16 Dennis Mendosa [address] [place] [phone] Ent - Otolaryngology 03/30/18 Margarito Shields MD [address] [place] [address] Hematology/Oncology 01/28/23 Timber Cruiser Relationship Specialty Start Date End Date Donnell Dooley MD [address] [place] [address] PCP - General Family Medicine 05/11/16 Dennis Mendosa [address] [place] [address] Ent - Otolaryngology 03/30/18 Margarito Shields MD [address] [place] [address] Hematology/Oncology 01/28/23 Timber Cruiser Relationship Specialty Start Date End Date Donnell Dooley MD [address] [place] [address] PCP - General Family Medicine 05/11/16 Dennis Mendosa [address] [place] [phone] Ent - Otolaryngology 03/30/18 Margarito Shields MD [address] [place], [place] [address] [phone] Hematology/Oncology 01/28/23 Timber Cruiser Relationship Specialty Start Date End Date Donnell Dooley MD [address] [place] [address] PCP - General Family Medicine 05/11/16 Dennis Mendosa [address] [place] [address] Ent - Otolaryngology 03/30/18 Margarito Shields MD [address] [place] [address] Hematology/Oncology 01/28/23 Timber Cruiser Relationship Specialty Start Date End Date Donnell Dooley MD [address] [place], [place] [address] PCP - General Family Medicine 05/11/16 Dennis Mendosa [address] [place] [phone] Ent - Otolaryngology 03/30/18 Timber Cruiser Relationship Specialty Start Date End Date Donnell Dooley MD [address] [place], [place] [address] PCP - General Family Medicine 05/11/16 Dennis Mendosa [address] [place] [phone] Ent - Otolaryngology 03/30/18 Timber Cruiser Relationship Specialty Start Date End Date Donnell Dooley MD [address] [place], [place] [id number] PCP - General Family Medicine 05/11/16 Dennis Mendosa [address] [place] [phone] Ent - Otolaryngology 03/30/18 Timber Cruiser Relationship Specialty Start Date End Date Donnell Dooley MD [address] [place], [place] [id number] PCP - General Family Medicine 05/11/16 Dennis Mendosa [address] [place] [phone] Ent - Otolaryngology 03/30/18 Margarito Shields MD [address] [place], [place] [phone] Hematology/Oncology 01/28/23 Timber Cruiser Relationship Specialty Start Date End Date Donnell Dooley MD [address] [place] [address] PCP - General Family Medicine 05/11/16 Dennis Mendosa [address] [place] [phone] Ent - Otolaryngology 03/30/18 Margarito Shields MD [address] [place] [address] Hematology/Oncology 01/28/23 Timber Cruiser Relationship Specialty Start Date End Date Donnell Dooley MD [address] [place] [address] PCP - General Family Medicine 05/11/16 Dennis Mendosa [address] [place] [phone] Ent - Otolaryngology 03/30/18 Margarito Shields MD [address] [place] [address] Hematology/Oncology 01/28/23 Morelia Hewitt APRN.MARKER MACHINE [address] [place] [address] [employer] Keyholder Family Medicine 01/31/24 Amber Griffith APRN.MARKER MACHINE [address] [place] [address] [employer] Keyholder Family Medicine 01/31/24 Timber Cruiser Relationship Specialty Start Date End Date Donnell Dooley MD [address] [place], [place] [address] PCP - General Family Medicine 05/11/16 Dennis Mendosa [address] [place] [phone] Ent - Otolaryngology 03/30/18 Margarito Shields MD [address] [place] [address] Hematology/Oncology 01/28/23 Morelia Hewitt, DRIER HELPER.MARKER MACHINE [address] [place] [address] [facility] 01/31/24 Amber Griffith DRIER HELPER.MARKER MACHINE [address] [place] [address] [facility] 01/31/24 Timber Cruiser Relationship Specialty Start Date End Date Donnell Dooley MD [address] [place] [address] PCP - General Family Medicine 05/11/16 Dennis Mendosa [address] [place] [phone] Ent - Otolaryngology 03/30/18 Margarito Shields MD [address] [place] [address] Hematology/Oncology 01/28/23 Morelia Hewitt, DRIER HELPER.MARKER MACHINE [address] [place] [address] [employer] [facility] Family [facility] 01/31/24 Amber Griffith DRIER HELPER.MARKER MACHINE [address] [place] [address] [employer] Management Key[facility] Family Medicine 01/31/24 Timber Cruiser Relationship Specialty Start Date End Date Donnell Dooley MD [address] [place] [address] PCP - General Family Medicine 05/11/16 Dennis Mendosa [address] [place] [address] Ent - Otolaryngology 03/30/18 Margarito Shields MD [address] [place] [address] Hematology/Oncology 01/28/23 Morelia Hewitt APRN.MARKER MACHINE [address] [place] [address] [employer] [facility] Family [facility] 01/31/24 Amber Griffith DRIER HELPER.MARKER MACHINE [address] [place] [address] [employer] [facility] Family [facility] 01/31/24 Timber Cruiser Relationship Specialty Start Date End Date Donnell Dooley MD [address] [place] [address] PCP - General Family Medicine 05/11/16 Dennis Mendosa [address] [place] [phone] Ent - Otolaryngology 03/30/18 Margarito Shields MD [address] [place] [address] Hematology/Oncology 01/28/23 Morelia Hewitt APRN.MARKER MACHINE [address] [place] [address] Retail Management Keyholder Family [facility] 01/31/24 Amber Griffith APRN.MARKER MACHINE [address] [place] [address] [facility] 01/31/24 Timber Cruiser Relationship Specialty Start Date End Date Donnell Dooley MD [address] [facility] [address] PCP - General Family Medicine 05/11/16 Dennis Mendosa [address] [facility] [place] [phone] Ent - Otolaryngology 03/30/18 Margarito Shields MD [address] [place] [address] Hematology/Oncology 01/28/23 Morelia Hewitt, DRIER HELPER.MARKER MACHINE [address] [place] [address] [facility] 01/31/24 Amber Griffith APRN.MARKER MACHINE [address] [facility] [place] [address] Retail Management Keyholder Family [facility] 01/31/24 Timber Cruiser Relationship Specialty Start Date End Date Donnell Dooley MD [address] [place] [address] PCP - General Family Medicine 05/11/16 Dennis Mendosa [address] [place] [phone] Ent - Otolaryngology 03/30/18 Margarito Shields MD [address] [place] [address] Hematology/Oncology 01/28/23 Morelia Hewitt APRN.MARKER MACHINE [address] [place] [address] [facility] 01/31/24 Amber Griffith DRIER HELPER.MARKER MACHINE [address] [place] [address] [facility] 01/31/24 Timber Cruiser Relationship Specialty Start Date End Date Donnell Dooley MD [address] [place] [address] PCP - General Family Medicine 05/11/16 Dennis Mendosa [address] [place] [phone] Ent - Otolaryngology 03/30/18 Margarito Shields MD [address] [place] [address] Hematology/Oncology 01/28/23 Morelia Hewitt, DRIER HELPER.MARKER MACHINE [address] [place] [address] [facility] 01/31/24 Amber Griffith DRIER HELPER.MARKER MACHINE [address] [place] [address] [facility] 01/31/24 Timber Cruiser Relationship Specialty Start Date End Date Donnell Dooley MD [address] [place], [place] [address] PCP - General Family Medicine 05/11/16 Dennis Mendosa [address] [place] [address] Ent - Otolaryngology 03/30/18 Margarito Shields MD [address] [place], [place] [address] Hematology/Oncology 01/28/23 Morelia Hewitt, RADHA.MARKER MACHINE [address] [place] [address] [facility] 01/31/24 Amber Griffith DRIER HELPER.MARKER MACHINE [address] [place] [address] [facility] 01/31/24 Team Status: Active Member Role/Relationship Status Dates Dr. Donnell Dooley MD Primary Care Provider Active Team Status: Active Member Role/Relationship Status Dates Dr. Donnell Dooley MD Primary Care Provider Active Start: August 22, 2024 Dr. Juno Cruz DO Emergency Provider Activ e Start: August 22, 2024 Dr. Naeem Barnett DO Admit Provider Active Start: August 22, 2024 Dr. Naeem de Matthew , DO Attending Provider Active Start: August 22, 2024 Reason for Visit (unrecogniz ed section and content) Reason Comments Established Patient Specialty Diagnoses / Procedures Referred By Contac t Referred To Contact Hematology Diagnoses Small B-cell lymphoma, unspecified body region (HCC) Procedures CONSULT TO HEMATOLOGY OFFICE/OUTPATIENT NEW HIGH MDM 60-74 MINUTES Donnell Dooley MD [address] [place] [address] Referral ID Status Reason Start Date Expiration Date V isits Requested Visits Authorized [id number] Closed PCP Requested Referral 12/23/2022 12/23/2023 1 1 Specialty Diagnoses / Procedures Referred By Contac t Referred To Contact MR IMAGING Diagnoses Brain mass Meningioma (HCC) Procedures MRI BRAIN WO/W IVCON MRI BRAIN BRAIN STEM W/O W/CONTRAST MATERIAL Donnell Dooley MD [address] [place] [address] Mr Imaging Referral ID Status Reason Start Date Expiration Date V isits Requested Visits Authorized [id number] Closed Auto-Generate d Referral 05/06/2021 06/05/2022 1 1 Reason Comments Follow Up memory issue Reason Comments Established Patient Callous Reason Comments Follow Up 3 month follow up Back Pain sciatica right leg 1 week Reason Comments Patient Update Medication Problem Reason Comments Insurance Authorization Rivastigmine pat ch Reason Comments Low Back Pain & bilateral legs Reason Comments Results Reason Comments Patient Update Medication Request Reason Comments Established Patient Follow Up callus callus Reason Comments Orders Reason Comments Follow Up Established Patient Reason Comments Follow Up Reason Comments Follow Up Callous Reason Comments Established Patient Follow Up Pain Reason Comments Cough Reason Comments Cough Cough, wheezing, fat igue, dizziness x 2 weeks Reason Comments Established Patient Follow Up Pain Callous Reason Comments Neurologic Problem Reason Comments Established Patient Follow Up removal of nail Callous Reason Comments Established Patient Follow Up Ingrown Toenail Reason Comments Forms Reason Comments 6 Month Exam Reason Comments Patient Update Reason Comments Corns Established Patient Follow Up Pain Ulcer Reason Comments Release Of Medical Records Reason Comments Letter Reason Comments Follow Up H&P for moving into assisted living Reason Comments Moving to assisted living [facility] Reason Comments Established Patient Debridement of Nail Reason Comments Request for outside medical records Reason Comments Student Assistant - Other Reason Comments Appointment Reason Comments Established Patient 1 day post right 2nd toe Post Op 1 day post right 2nd toe Reason Comments Established Patient Post Op Pain Amputation Reason Comments Post Op Established Patient Follow Up Reason Comments Patient Update Orders Reason Comments Pain on left side Reason Comments Orders Reason Comments Follow Up Reason Comments Request for order Reason Comments Blister Blood filled blister and swelling of left ankle x 1 week Reason Comments Follow Up Cellulitis left ankl e Reason Comments Edema Swelling and pain in left ankle. Has open sore that is draining as well. Reason Comments Wound dressing question Reason Comments Recheck Left lower leg wound check, Reason Comments Pelvic Pain Reason Comments Acute Visit Loss of bladder cont rol, lower abdominal pain, pressure when urinating; no blood in urine Specialty Diagnoses / Procedures Referred By Contac t Referred To Contact CT IMAGING Diagnoses Pelvic pain Procedures CT ABD/PEL WO IVCON CT ABD & PELVIS W/O CONTRAST Morelia Hewitt, RADHA.MARKER MACHINE [address] [place] [address] [place] [address] Referral ID Status Reason Start Date Expiration Date V isits Requested Visits Authorized [id number] Closed Auto-Generate d Referral 08/04/2023 09/02/2024 [address] Specialty Diagnoses / Procedures Referred By Contac t Referred To Contact CT IMAGING Diagnoses Pelvic pain Procedures CT ABD/PEL WO IVCON CT ABD & PELVIS W/O CONTRAST Morelia Hewitt, RADHA.MARKER MACHINE [address] [place] [address] Ct Imaging [facility] Reason Comments Eye Problem Bilat eyes, redness, swelling, x 1 week Reason Comments Results Reason Comments Information Reason Comments Clinical Update Reason Comments Established Patient Follow Up Pain Reason Onset Date Comments Population Health Navigation Outreach 05/11/2024 [facility] Reason Onset Date Comments Population Health Navigation Outreach 06/28/2024 [facility] Goals (unrecognized section and content) Goals may be documented in a n alternate sectionGoals may be documented in an alternate sectionGoals may be documented in an alternate sectionGoals may be documented in an alternate section INFORMATION SOURCE (unrecogn ized section and content) DATE CREATED AUTHOR 10/17/2022 [facility] DATE CREATED AUTHOR AUTHOR'S ORGANIZ ATION 04/04/2023 [facility] DATE CREATED AUTHOR AUTHOR'S ORGANIZ ATION 03/24/2024 [facility] DATE CREATED AUTHOR AUTHOR'S ORGANTHIERRY ATION 07/19/2024 [facility] FOR RECORDS PERTAINING TO PATIENTS WHO ARE OR HAVE BEEN ENROLLED IN A CHEMICAL DEPENDENCY/SUBSTANCEABUSE PROGRAM, SOME INFORMATION MAY BE OMITTED. This clinical summary was aggregated from multiple sources. Caution should be exercised in using it in the provision of clinical care. This summary normalizes information from multiple sources, and as a consequence, information in this document may materially change the coding, format and clinical context of patient data. In addition, data may be omitted in some cases. CLINICAL DECISIONS SHOULD BE BASED ON THE PRIMARY CLINICAL RECORDS. [employer] [facility]. provides no warranty or guarantee of the accuracy or completeness of information in this document.
--- OUTSIDE RECORDS SUMMARY | 2024-08-22 23:12 | XMS RPT_ITS | CCD ---
Author Organization [facility] CliniSyoh Care Team Providers Care Physician General Internal Medicine Name Role Phone Suzi RN, Thao Oakes Unavailable [phone] Suzi RN, Thao Oakes Unavailable [phone] Suzi RN, Thao Oakes Unavailable [phone] Marcela More Unavailable Unavailable Suzi RN, Thao Oakes Unavailable [phone] Suzi RN, Thao Oakes Unavailable [phone] Donnell Dooley MD Primary Care Provider Dennis Mendosa Unavailable Dr. Donnell Dooley Primary Care Provider Dr. Donnell Dooley Referring Provider Emmy JET BLADE POLISHER, JET BLADE POLISHER-C Lashanda Sr Attending Provider Dr. Conrad Antunez Attending Provider Chey CROCKER, JET BLADE POLISHER-C Kori Attending Provider Unav ailable Donnell Dooley MD Primary Care Provider Dennis Mendosa Unavailable Donnell Dooley MD Primary Care Provider Dennis Mendosa Unavailable Donnell Dooley MD Primary Care Provider Dennis Mendosa Unavailable Dr. Donnell Dooley Primary Care Provider Dr. Donnell Dooley Referring Provider Rickie JET BLADE POLISHER, JET BLADE POLISHER-C Sheba Attending Provider DONNELL DOOLEY Primary Care Unavailable DANIKA HELMS Attending Unavailable DANIKA HELMS Admitting Unavailable Dr. Donnell Dooley Primary Care Provider Soumya, Dr. Jacobo Referring Provider Dr. Conrad Antunez Attending Provider [phone] Cornelius SNOW, Margarito Unavailable BHARATIDALLAS Referring Unavailable SOUMYA, DONNELL Maldonado Primary Care Unavailable [place] Donnell SNOW Primary Care Provider Haagen OFFSET LITHOGRAPHIC PRESS OPERATOR.CREDIT CORRESPONDENCE CLERK, Morelia Unavailable Suppan OFFSET LITHOGRAPHIC PRESS OPERATOR.CREDIT CORRESPONDENCE CLERK, Amber A Unavailable Suppan OFFSET LITHOGRAPHIC PRESS OPERATOR.CREDIT CORRESPONDENCE CLERK, Amber A Unavailable [phone] Suppan OFFSET LITHOGRAPHIC PRESS OPERATOR.CREDIT CORRESPONDENCE CLERK, Amber A Unavailable Sheba Damian Attending Unavailable Soumya, Donnell Referring Unavailable Soumya, Donnell Primary Care Unavailable Soumya OLS, Donnell Attending Unavailable [place], Donnell Primary Care Unavailable Soumya OLS, Donnell Attending Unavailable [place], Donnell Primary Care Unavailable Soumya, Donnell Primary Care Unavailable Soumya OLS, Donnell Attending Unavailable [place], Donnell Primary Care Unavailable Soumya OLS, Donnell Attending Unavailable [place] OLS, Donnell Attending Unavailable [place], Donnell Primary Care Unavailable SOUMYA, ODNNELL J Primary Care Unavailable DANIKA HELMS Attending [...] Soumya , Dr. Jacobo Primary Care Provider [phone] Dr. Juno Cruz DO Emergency Provider Dr. Naeem Barnett DO Admit Provider Unavail able Barnett DO, Dr. Hartley Attending Provider Unav ailable Allergies Allergy Classification Reported Allergen(s) Allergy Type Date of Onset Reaction(s) Facility Amoxicillin / Clavulanate (3 sources) Amoxicillin / Clavulanate Drug Allergy 8 Vomiting [facility] Work Phone: Bacitracin (3 sources) Bacitracin Drug Allergy 7 Itching [facility] Latex (3 sources) Latex Substance Allergy 7 Rash [facility] Opioid Agonists (3 sources) Codeine Drug Allergy 7 GI Upset, Vomiting [facility] walnut allergenic extract (3 sources) walnut allergenic extract Drug Allergy 2 Swelling [facility] (20 sources) bacitracin; Translations: [BACITRACIN] drug allergy 7 Itching [facility] Work Phone: (20 sources) codeine; Translations: [CODEINE] drug allergy 7 GI Upset, Vomiting [facility] Work Phone: (20 sources) Latex; Translations: [LATEX] drug allergy 7 Rash [facility] Work Phone: (6 sources) Shellfish drug allergy 7 swelling, anaphylaxis [facility] Work Phone: (20 sources) Amoxicillin / Clavulanate; Translations: [AMOXICILLIN-PO T CLAVULANATE] Drug Allergy 8 Vomiting [facility] Work Phone: (20 sources) Shellfish; Translations: [SHELLFISH CONTAINING PRODUCTS] Drug Allergy 7 Swelling, Anaphylaxis, Shortness of Breath, Other: See Comments, Yuim [facility] (5 sources) Shellfish; Translations: [shellfish derived] Allergy to substance 2 Anaphylaxis [facility] (1 source) WALNUTS Propensity to adverse reactions 2 Swelling [facility] Work Phone: (20 sources) walnut allergenic extract; Translations: [WALNUT] Drug Allergy 2 Swelling [facility] (2 sources) Amoxicillin Drug Allergy 3 Vomiting [facility] (2 sources) Clavulanate Drug Allergy 3 Vomiting [facility] (1 source) Amoxicillin Drug Allergy 4 [facility] Repository (1 source) Clavulanate Drug Allergy 4 [facility] Repository (1 source) walnut Drug allergy (disorder) 4 [facility] Repository Medications Current Medications Medication Drug Class(es) [...] mouth. Take by mouth as nee ded. [id number] 200 actuat albuterol 0.09 mg/actuat metered dose [...] Base) MCG/ACT AERS as directed ALBUTEROL SULFATE [id number] Thao Archer RN Start: 10-21-2016 PROAIR HFA 108 (90 Base) MCG/ACT AERS as directed ALBUTEROL SULFATE [id number] Thao Archer RN Comment on above: Inhale [...] 7 days. Take [address] [facility] twice daily. Take 1 tablet by [...] on above: Take [address] [facility] once daily. Hydrocolloid Dressing (DUODERM CGF [...] Comment on above: Take 1 tablet by [facility] once daily. meclizine hydrochloride 25 mg [...] Comment on above: Take 1 tablet by [facility] once daily for 5 days. Take [...] once daily. Take [address] [facility] twice daily. Tiotropium [place] 18 mcg capsule, w/inhalation device (2 sources) Start: take 1 capsule by inhalation once daily Tiotropium [place] 18 mcg capsule, w/inhalation device Active 18 ug INHALATION DAILY 3 3 January 12, 2024 2:10pm copd Start: 02-16-2023 End: 01-12-2024 take 1 capsule by inhalation once daily Tiotropium [place] 18 mcg capsule, w/inhalation device Discontinued 18 [...] on above: Take [address] [facility] three times daily as needed. Budesonide-Formote [...] 4.5 MCG/ACT AERO as directed BUDESONIDE-FORMOTEROL FUMARATE [id number] Thao Archer RN Start: 10-21-2016 SYMBICORT 160- 4.5 MCG/ACT AERO as directed BUDESONIDE-FORMOTEROL FUMARATE [id number] Thao L Archer RN Comment on above: Inhale 2 Puffs as in structed twice daily. XEKMJPL-FOHWDUVVH-YRS C ORAL (4 sources) End: 06-04-2021 PGLCEXU-SYNJAMCHJ-HRXM ORAL Take by mouth. 06/04/2021 Discontinued End: 06-04-2021 FVIRBRH-WJFMHNEWZ-VJTR ORAL Take by mouth. 0 06/04/2021 Discontinued CALCIUM-MAGNESIU M-ZINC ORAL Take by mouth. 0 Active Comment on above: Take by mouth. cholecalciferol 2000 unt oral capsule (20 sources) Vitamin D Start: 7 take 1 tablet by mouth once daily VITAMIN D3 2000 UNIT CAPS One tablet by mouth daily CHOLECALCIFEROL [id number] Thao Archer RN take 1 capsule by [...] (FLONASE) 50 mcg/actuation nasal spray Use 1 [place] in each nostril once daily. 1 Bottle 11 03/08/2017 06/15/2022 Discontinued (Other) Start: 10-21-2016 FLUTICASONE AR OPIONATE 50 MCG/ACT SUSP (0.05mg/inh) 1 spray each nostril once a day FLUTICASONE PROPIONATE [id number] Thao Archer RN Start: 10-21-2016 take 0.05 mg by inha lation once daily FLUTICASONE PROPIONATE 50 MCG/ACT SUSP (0.05mg/inh) 1 spray each nostril once a day FLUTICASONE PROPIONATE [id number] Thao Archer RN Comment on above: Use 1 [place] in each nostril once daily. 12 hr [...] NICORETTE GUM as directed NICOTINE POLACRILEX GUM 92194589905 Thao Archer RN nystatin 706696 unt/ml oral suspension (20 sources) Polyene Antifungal [...] 1 G M TABS 1g tid SUCRALFATE 22857314121 Thao Archer RN sulfamethoxazole 800 mg / [...] 1 capsule by inhalation once daily Tiotropium [place] 18 mcg capsule, w/inhalation device Discontinued 18 ug INHALATION DAILY 1 0 December 12, 2021 2:19pm January 07, 2022 11:32am copd Start: 04-19-2019 End: 05-02-2019 Tiotropium [place] 1 PUFF in haler Discontinued 1 NMA INHALATION DAILY April 19, 2019 1:00am May 02, 2019 11:07am copd Start: 04-19-2019 End: 05-02-2019 take 1 puff(s) by inhalation once daily Tiotropium [place] Discontinued 1 PUFF INHALATION DAILY April 19, 2019 1:00am May 02, 2019 11:07am Start: 03-15-2019 take 1 capsule by in halation once daily tiotropium (SPIRIVA WITH HANDIHALER) 18 mcg inhalation capsule INHALE THE CONTENTS OF ONE CAPSULE VIA HANDIHALER ONCE DAILY 90 capsule 3 03/15/2019 Active Start: 10-21-2016 SPIRIVA HANDIH ALER 18 MCG CAPS as directed TIOTROPIUM BROMIDE MONOHYDRATE [id number] Thao Archer RN Start: 10-21-2016 SPIRIVA HANDIH ALER 18 MCG CAPS as directed TIOTROPIUM BROMIDE MONOHYDRATE 15946558207 Thao Archer RN Comment on above: INHALE [...] One tablet by mouth daily ZINC GLUCONATE 60405543648 Thao Archer RN Problems Active Problems Problem [...] Auto (Unsp spec) [#/Vol] 3.85 10*3/uL 0.83-4.51 [facility] Absolute neutrophil countOrd ered By: Juno Cruz on 08-22-2024 Neutrophils (Bld) [#/Vol] 9.8 10*3/uL High 2.0-7.7 [facility] Anion gap in Serum or Plasma Ordered By: Juno Cruz on 08-22-2024 Anion gap [Moles/Vol] 14 mmol/L 5-15 [facility] Automated lymphocyte count a s percentage of total leukocytesOrdered By: Juno Cruz on 08-22-2024 Lymphocytes/100 WBC Auto (Unsp spec) 25.4 % 19-41 [facility] BUN/creatinine ratioOrdered By: Juno Cruz on 08-22-2024 Urea nitrogen/Creatinine [Mass ratio] 40.5 mg/mg High 10-20 [facility] Basophil percentageOrdered B y: Juno Cruz on 08-22-2024 Basophils/100 WBC (Bld) 0.4 % 0-1 W [facility] CO2 (BldV) [Moles/Vol]Ordere d By: Juno Cruz on 08-22-2024 CO2 [Moles/Vol] 28 mmol/L 23-33 [facility] Carbon dioxide, total [Moles /volume] in Central venous bloodOrdered By: Juno Cruz on 08-22-2024 CO2 [Moles/Vol] 25.2 mmol/L 21.0-32.0 [facility] Chloride assayOrdered By: Albert Cruz on 08-22-2024 Chloride [Moles/Vol] 94 mmol/L Low 98-108 [facility] Eosinophil percentageOrdered By: Juno Cruz on 08-22-2024 Eosinophils/100 WBC (Bld) 1.0 % 0-5 [facility] Erythrocyte distribution wid th ratioOrdered By: Juno Cruz on 08-22-2024 Erythrocyte distribution width (RBC) [Ratio] 14.4 % 11.6-14.6 [facility] Erythrocyte distribution wid th standard deviationOrdered By: Juno Alonzo on 08-22-2024 Erythrocyte distribution width (RBC) [Ratio] 45.6 fl High 35.1-43.9 [facility] Glomerular filtration rate ( GFR) estimation/1.73 sq m using serum, plasma, or whole bOrdered By: Juno Cruz on 08-22-2024 GFR/1.73 sq M.predicted among non-blacks MDRD (S/P/Bld) [Vol rate/Area] 79 mL/min/{1.73_m2} >60 [facility] Comment on above: mL/min/1.73m2 CKD-EP I Creatinine Equation (2020) Hematocrit Auto (Bld) [Volum e fraction]Ordered By: Juno Cruz on 08-22-2024 Hematocrit (Bld) [Volume fraction] 42.9 % 37-47 [facility] Hemoglobin measurementOrdere d By: Juno Cruz on 08-22-2024 Hemoglobin (Bld) [Mass/Vol] 14.5 g/dL 12.0-15.0 [facility] Immature granulocytes/100 WB C Auto (Bld)Ordered By: Juno Cruz on 08-22-2024 Immature granulocytes/100 WBC (Bld) 0.500 % 0.0-0.9 [facility] Comment on above: IG% - Immature Granu locytes (promyelocytes, myelocytes and metamyelocytes) > 1% indicates that a LEFT SHIFT is Present. Influenza virus A and B and SARS-CoV-2 (COVID-19) and Respiratory syncytial virus RNAOrdered By: Juno Cruz on 08-22-2024 SARS-CoV-2 (COVID-19) RNA AIME+probe Ql (Unsp spec) [facility] Lactic acid measurementOrder ed By: Juno Cruz on 08-22-2024 Lactate [Moles/Vol] 1.4 mmol/L 0.0-2.0 [facility] MCV (mean corpuscular volume ) determinationOrdered By: Juno Cruz on 08-22-2024 MCV (RBC) [Entitic vol] 86.3 fL 81-99 W [facility] Mean corpuscular hemoglobin (MCH) determinationOrdered By: Juno Cruz on 08-22-2024 MCH (RBC) [Entitic mass] 29.2 pg 27.0-32.0 [facility] Mean corpuscular hemoglobin concentration (MCHC) determinationOrdered By: Juno Cruz on 08-22-2024 MCHC (RBC) [Mass/Vol] 33.8 g/dL 32-36 [facility] Mean platelet volume determi nationOrdered By: Juno Cruz on 08-22-2024 Platelet mean volume (Bld) [Entitic vol] 12.6 fL High 6.2-12.0 [facility] Monocyte percentageOrdered B y: Juno Cruz on 08-22-2024 Monocytes/100 WBC (Bld) 8.3 % 0-10 [facility] Neutrophil percentageOrdered By: Juno Cruz on 08-22-2024 Neutrophils/100 WBC (Bld) 64.4 % 47-70 [facility] No Panel InformationOrdered By: Juno Cruz on 08-22-2024 Blood Gas Sample Site Not entered [facility] Blood Gas Specimen Type NAHOMY W [facility] Oxygen Delivery Device Room Air [facility] Nucleated red blood cell per centageOrdered By: Juno Cruz on 08-22-2024 Nucleated RBC/100 WBC (Bld) [Ratio] 0 % 0-5 [facility] Platelet countOrdered By: Albert Cruz on 08-22-2024 Platelets (Bld) [#/Vol] 127 10*3/uL Low 150-450 [facility] Potassium measurement (mass/ volume)Ordered By: Juno Cruz on 08-22-2024 Potassium (Unsp spec) [Mass/Vol] 4.1 mmol/L 3.3-5.1 [facility] Comment on above: Hemolysis present, R esults could be affected. RBC Auto (Bld) [#/Vol]Ordere d By: Juno Cruz on 08-22-2024 RBC (Bld) [#/Vol] 4.97 10*6/uL 4.2-5.4 [facility] Serum creatinine measurement (mass/volume)Ordered By: Juno Cruz on 08-22-2024 Creatinine [Mass/Vol] 0.76 mg/dL 0.70-1.20 [facility] Serum glucose measurement (m ass/volume)Ordered By: Juno Cruz on 08-22-2024 Glucose [Mass/Vol] 118 mg/dL High 70-99 [facility] Serum or plasma calcium dmitry urement (mass/volume)Ordered By: Juno Alonzo on 08-22-2024 Calcium [Mass/Vol] 8.6 mg/dL 7.6-11.0 [facility] Serum or plasma urea nitroge n measurement (mass/volume)Ordered By: Juno Cruz on 08-22-2024 Urea nitrogen [Mass/Vol] 31 mg/dL High 4-19 [facility] Sodium levelOrdered By: Anthony Cruz on 08-22-2024 Sodium [Moles/Vol] 133 mmol/L 133-145 [facility] Venous blood base excess myriam surementOrdered By: Juno Cruz on 08-22-2024 Base excess Calc (BldV) [Moles/Vol] 4 mmol/L High -1.0-3.5 [facility] Venous blood bicarbonate myriam surementOrdered By: Juno Cruz on 08-22-2024 HCO3 (Bld) [Moles/Vol] 27 mmol/L High 22-26 [facility] Venous blood oxygen saturati on measurementOrdered By: Juno Cruz on 08-22-2024 Oxygen saturation in Blood 76 % High 50-70 [facility] Venous blood pH measurementO rdered By: Juno Cruz on 08-22-2024 pH (BldV) 7.52 [pH] High 7.32-7.42 [facility] Venous blood partial pressur e of carbon dioxide measurementOrdered By: Juno Cruz on 08-22-2024 CO2 (BldV) [Partial pressure] 33.0 mm[Hg] Low 41-51 [facility] Venous blood partial pressur e of oxygen measurementOrdered By: Juno Alonzo on 08-22-2024 Oxygen (BldV) [Partial pressure] 36 mm[Hg] 25-40 [facility] White blood cell (WBC) count Ordered By: Juno Cruz on 08-22-2024 WBC (Bld) [#/Vol] 15.2 10*3/uL [facility] MADISON LOFTON ([id number]) 1940 F Date Time Provider Department 07/12/24 [...] Shields MD (Hematology/Oncology) Morelia Hewitt APRN.REYNALDO as Trustee Of Estate (Family Medicine) Amber Griffith APRN.CNP as Trustee Of Estate (Family Medicine) Dr Helms, podiatry. Now seeing podiatry at facility. Dr Antunez, pulmonary. Dr Diallo, optho. [facility]-not followed up. Defers follow up. [...] practice. J Neurol. 2023 Jef . doi: 10.1007/o73856-719-374 44-8. Epub ahead of print. PMID: 05911102. Cognitive screening reviewed and Patient has known [...] on fo (more content not included)... Normal [facility] LO[facility] ([id number]) 1940 F Date Time Provider Department 04/24/24 [...] Status:Closed by REENA ARANGO on 04/24/24 [facility] Angel 03-22-2024 [facility] Telephone (MEKAWS) MADISON LOFTON ([id number]) 1940 F Date Time Provider Department 03/22/24 DONNELL DOOLEY [facility] During your visit today, we recorded the following information about you: Jessica Middleton LPN 03/22/2024 9:56 AM Signed Sandy with [facility] called to request ed list and [...] Status:Closed by JESSICA MIDDLETON on 03/22/24 Normal [facility] PVR LEG FRANCISCO VAS LABon 2024 [facility] Non-Invasive Vascula r Laboratory [facility] Lower Extremity Arterial Physiology Study Bilateral/Complete [...] called by tracings. Technologist: Eugenia Whelan [facility]T [facility] Ordering physician: DANIKA HELMS Interpreting physician: AMINA Hart DO Final CC ITN Medical Image : [id number] See Link below for Image [facility] Telephone (CHELSEA) MADISON LOFTON ([id number]) 1940 F Date Time Provider Department 03/09/24 DONNELL DOOLEY During your visit today, we recorded the following information about you: Guera Roy RN 03/09/2024 9:18 AM Signed Ronda nurse with [facility] calls with patient update. Patient has [...] do one there. Call back number is [phone]. SHANTELL Mitchell William J, MD 03/09/2024 11:18 [...] Encounter Status:Closed by SKYE PAYTON [facility] MADISON LOFTON ([id number]) 1940 F Date Time Provider Department 03/09/24 [facility] During your visit today, we recorded the following information about you: Alejandrina Cooper RN 03/09/2024 4:54 PM Signed Ronda from [place] calling with results to chest x ray. Results show Slight left lower lobe infiltrate (Left Basilar infiltrate without any mass or fusion). Patient still has cough and other symptoms without fever. Pharmacy is [facility]. Please review and advise, SHANTELL Emmanuel Jacqueline A, APRN.CREDIT CORRESPONDENCE CLERK 03/09/2024 5:11 PM Signed Called patient and [...] Status:Closed by AMBER GRIFFITH on 03/09/24 [facility] CNOVon 02-28-2024 CNOV Office Visit (PODIWS ) MADISON LOFTON ([id number]) 1940 F Date Time Provider Department 02/28/24 [...] shellfish into diet. Bacitracin Itching Latex Rash [place] Swelling PAST SURGICAL HISTORY Procedure Laterality Date BREAST RECONSTRUCTION CATARACT EXTRACTION HX Bilateral 2011 CATARACT SURGERY, COMPLEX COLONOSCOPY W/BIOPSY SINGLE/MULTIPLE 10/12/2016 [facility] DIAG AND/OR THERAP, NOT OB EGD TRANSORAL BIOPSY SINGLE/MULTIPLE 10/12/2016 EGD W/O [facility] SPEC VARICIES INJ N/A HEMORRHOIDECTOMY MASTECTOMY HX [...] REVIEW OF (more content not included)... Normal [facility] MADISON LOFTON ([id number]) 1940 F Date Time Provider Department 02/18/24 DONNELL DOOLEY [facility] During your visit today, we recorded the following information about you: Alejandrina Cooper RN 02/18/2024 4:37 PM Signed Tanika from [place] calls and states that patient is complaining [...] Encounter Status:Closed by DONNELL DOOLEY on 02/18/24 [facility] 02[facility]07-20[facility] KIRSTYMADISON ([id number]) 1940 F Date Time Provider Department 02/07/24 DONNELL DOOLEY [facility] During your visit today, we recorded [...] helping that is why she needs ER. Rembreto Bob, SHANTELL 02/11/2024 12:08 PM Signed Johanna [...] Status:Closed by Remberto BOB on 02/11/24 [facility] Carmen 01-14-2024 CNOV Office Visit (FAMPWS ) MADISON LOFTON ([id number]) 1940 F Date Time Provider Department 01/14/24 [...] Abs Lymph 1.00 - 4.00 k/uL 3.51 [place]% % 7.6 Abs [place] <0.87 k/uL 0.86 [place]% % 3.7 Abs [...] Vomiting Shellfish (more content not included)... Normal [facility] Pulmonary Visit Reporton Pulmonary Visit Report [facility] [place] 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 Normal [facility] CBC W Auto Differential pane l (Bld)on 01-10-2024 Basophils (Bld) [#/Vol] 0.09 10*3/uL Normal <0.11 [facility] Comment on above: Order Comment: Speci men Type: BLOOD SPECIMENOrdering Facility: [facility] Address: [address] [place] [address] Performed By: #### 5 7021-8 ####[facility] LABCLIA [id number] [place] [address] [place] Basophils/100 WBC (Bld) 0.8 % Normal C [facility] Comment on above: Order Comment: Speci men Type: BLOOD SPECIMENOrdering Facility: [facility] Address: [address] [place] [address] Performed By: #### 5 7021-8 ####[facility] LABCLIA [id number] [place] [address] [place] Differential cell count method Nom (Bld) Auto Normal [facility] Comment on above: Order Comment: Speci men Type: BLOOD SPECIMENOrdering Facility: [facility] Address: [address] [place] [address] Performed By: #### 5 7021-8 ####[facility] LABCLIA [id number] [place] [address] [place] Eosinophils (Bld) [#/Vol] 0.42 10*3/uL Normal <0.46 [facility] Comment on above: Order Comment: Speci men Type: BLOOD SPECIMENOrdering Facility: [facility] Address: [address] [place] [address] Performed By: #### 5 7021-8 ####[facility] LABCLIA [id number] [place] [address] [place] Eosinophils/100 WBC (Bld) 3.7 % Normal [facility] Comment on above: Order Comment: Speci men Type: BLOOD SPECIMENOrdering Facility: [facility] Address: [address] [place] [address] Performed By: #### 5 7021-8 ####[facility] LABIA [id number] [place] [address] [place] Erythrocyte distribution width (RBC) [Ratio] 14.4 % Normal 11.5-15.0 [facility] Comment on above: Order Comment: Speci men Type: BLOOD SPECIMENOrdering Facility: [facility] Address: [address] [place] [address] Performed By: #### 5 7021-8 ####[facility] LABIA [id number] [place] [address] [place] Hematocrit (Bld) [Volume fraction] 40.4 % Normal 36.0-46.0 [facility] Comment on above: Order Comment: Speci men Type: BLOOD SPECIMENOrdering Facility: [facility] Address: [address] [place] [address] Performed By: #### 5 7021-8 ####[facility] LABIA [id number] [place] [address] [place] Hemoglobin (Bld) [Mass/Vol] 12.9 g/dL Normal 11.5-15.5 [facility] Comment on above: Order Comment: Speci men Type: BLOOD SPECIMENOrdering Facility: [facility] Address: [address] [place] [address] Performed By: #### 5 7021-8 ####[facility] LABCLIA [id number] [place] [address] [place] Immature granulocytes (Bld) [#/Vol] 0.06 10*3/uL Normal <0.10 [facility] Comment on above: Order Comment: Speci men Type: BLOOD SPECIMENOrdering Facility: [facility] Address: [address] [place] [address] Performed By: #### 5 7021-8 ####[facility] LABCLIA [id number] [address] [place] Immature granulocytes/100 WBC (Bld) 0.5 % Normal [facility] Comment on above: Order Comment: Speci men Type: BLOOD SPECIMENOrdering Facility: [facility] Address: [address] [place] [address] Performed By: #### 5 7021-8 ####[facility] LABCLIA [id number] [place] [address] [place] Lymphocytes (Bld) [#/Vol] 3.51 10*3/uL Normal 1.00-4.00 [facility] Comment on above: Order Comment: Speci men Type: BLOOD SPECIMENOrdering Facility: [facility] Address: [address] [place] [address] Performed By: #### 5 7021-8 ####[facility] LABCLIA [id number] [place] [address] [place] Lymphocytes/100 WBC (Bld) 31.1 % Normal [facility] Comment on above: Order Comment: Speci men Type: BLOOD SPECIMENOrdering Facility: [facility] Address: [address] [place] [address] Performed By: #### 5 7021-8 ####[facility] LABCLIA [id number] [place] [address] [place] MCH (RBC) [Entitic mass] 29.9 pg Normal 26.0-34.0 [facility] Comment on above: Order Comment: Speci men Type: BLOOD SPECIMENOrdering Facility: [facility] Address: [address] [place] [address] Performed By: #### 5 7021-8 ####[facility] LABCLIA [id number] [place] [address] [place] MCHC (RBC) [Mass/Vol] 31.9 g/dL Normal 30.5-36.0 [facility] Comment on above: Order Comment: Speci men Type: BLOOD SPECIMENOrdering Facility: [facility] Address: [address] [place] [address] Performed By: #### 5 7021-8 ####[facility] LABCLIA [id number] [place] [address] [place] MCV (RBC) [Entitic vol] 93.7 fL Normal 80.0-100.0 C [facility] Comment on above: Order Comment: Speci men Type: BLOOD SPECIMENOrdering Facility: [facility] Address: [address] [place] [address] Performed By: #### 5 7021-8 ####[facility] LABCLIA [id number] [place] [address] [place] Monocytes (Bld) [#/Vol] 0.86 10*3/uL Normal <0.87 [facility] Comment on above: Order Comment: Speci men Type: BLOOD SPECIMENOrdering Facility: [facility] Address: [address] [place] [address] Performed By: #### 5 7021-8 ####[facility] LABCLIA [id number] [address] [place] Monocytes/100 WBC (Bld) 7.6 % Normal C [facility] Comment on above: Order Comment: Speci men Type: BLOOD SPECIMENOrdering Facility: [facility] Address: [address] [place] [address] Performed By: #### 5 7021-8 ####[facility] LABCLIA [id number] [place] [address] [place] Neutrophils (Bld) [#/Vol] 6.33 10*3/uL Normal 1.45-7.50 [facility] Comment on above: Order Comment: Speci men Type: BLOOD SPECIMENOrdering Facility: [facility] Address: [address] [place] [address] Performed By: #### 5 7021-8 ####[facility] LABCLIA [id number] [place] [address] [place] Neutrophils/100 WBC (Bld) 56.3 % Normal [facility] Comment on above: Order Comment: Speci men Type: BLOOD SPECIMENOrdering Facility: [facility] Address: [address] [place] [address] Performed By: #### 5 7021-8 ####[facility] LABCLIA [id number] [place] [address] [place] Nucleated RBC (Bld) [#/Vol] 10*3/uL Normal <0.01 [facility] Comment on above: Order Comment: Speci men Type: BLOOD SPECIMENOrdering Facility: [facility] Address: [address] [place] [address] Performed By: #### 5 7021-8 ####[facility] LABCLIA [id number] [place] [address] [place] Nucleated RBC/100 WBC (Bld) [Ratio] 0.0 /100 WBC Normal [facility] Comment on above: Order Comment: Speci men Type: BLOOD SPECIMENOrdering Facility: [facility] Address: [address] [place] [address] Performed By: #### 5 7021-8 ####[facility] LABCLIA [id number] [place] [address] [place] Platelet mean volume (Bld) [Entitic vol] 12.1 fL Normal 9.0-12.7 [facility] Comment on above: Order Comment: Speci men Type: BLOOD SPECIMENOrdering Facility: [facility] Address: [address] [place] [address] Performed By: #### 5 7021-8 ####[facility] LABCLIA [id number] [place] [address] [place] Platelets (Bld) [#/Vol] 173 10*3/uL Normal 150-400 [facility] Comment on above: Order Comment: Speci men Type: BLOOD SPECIMENOrdering Facility: [facility] Address: [address] [place] [address] Performed By: #### 5 7021-8 ####[facility] LABCLIA [id number] [place] [address] [place] RBC (Bld) [#/Vol] 4.31 10*6/uL Normal 3.90-5.20 [facility] Comment on above: Order Comment: Speci men Type: BLOOD SPECIMENOrdering Facility: [facility] Address: [address] [place] [address] Performed By: #### 5 7021-8 ####[facility] LABIA [id number] [place] [address] [place] WBC (Bld) [#/Vol] 11.27 10*3/uL High 3.70-11.00 [facility] Comment on above: Order Comment: Speci men Type: BLOOD SPECIMENOrdering Facility: [facility] Address: [address] [place] [address] Performed By: #### 5 7021-8 ####[facility] LABCLIA [id number] [place] [address] [place] Comprehensive metabolic 2000 panelon 01-10-2024 Albumin [Mass/Vol] 3.8 g/dL Low 3.9-4.9 [facility] Comment on above: Order Comment: Speci men Type: BLOOD SPECIMENOrdering Facility: [facility] Address: [address] [id number] Performed By: #### 2 4331-1, ####[facility] LABCLIA [id number] [facility] [place] [address] [place] ALP [Catalytic activity/Vol] 93 U/L Normal 34-123 [facility] Comment on above: Order Comment: Speci men Type: BLOOD SPECIMENOrdering Facility: [facility] Address: [address] [place] [address] Performed By: #### 2 4331-1, ####[facility] LABCLIA [id number] [place] [address] [place] ALT [Catalytic activity/Vol] 18 U/L Normal 7-38 [facility] Comment on above: Order Comment: Speci men Type: BLOOD SPECIMENOrdering Facility: [facility] Address: [address] [place] [address] Performed By: #### 2 4331-1, ####[facility] LABCLIA [id number] [place] [address] [place] Anion gap [Moles/Vol] 9 mmol/L Normal 8-15 [facility] Comment on above: Order Comment: Speci men Type: BLOOD SPECIMENOrdering Facility: [facility] Address: [address] [place] [address] Performed By: #### 2 4331-1, ####[facility] LABCLIA [id number] [place] [address] [place] AST [Catalytic activity/Vol] 25 U/L Normal 13-35 [facility] Comment on above: Order Comment: Speci men Type: BLOOD SPECIMENOrdering Facility: [facility] Address: [address] [place] [address] Performed By: #### 2 4331-1, ####[facility] LABCLIA [id number] [address] [address] [place] Bilirubin [Mass/Vol] 0.4 mg/dL Normal 0.2-1.3 [facility] Comment on above: Order Comment: Speci men Type: BLOOD SPECIMENOrdering Facility: [facility] Address: [address] [place] [address] Performed By: #### 2 4331-, ####[facility] LABCLIA [id number] [place] [address] [place] Calcium [Mass/Vol] 9.9 mg/dL Normal 8.5-10.2 [facility] Comment on above: Order Comment: Speci men Type: BLOOD SPECIMENOrdering Facility: [facility] Address: [address] [place] [address] Performed By: #### 2 4331-, ####[facility] LABCLIA [id number] [place] [address] [place] Chloride [Moles/Vol] 106 mmol/L Normal 98-107 [facility] Comment on above: Order Comment: Speci men Type: BLOOD SPECIMENOrdering Facility: [facility] Address: [address] [place], [place] [address] Performed By: #### 2 4331-, ####[facility] LABCLIA [id number] [address] [address] [place] CO2 [Moles/Vol] 31 mmol/L High 22-30 [facility] Comment on above: Order Comment: Speci men Type: BLOOD SPECIMENOrdering Facility: [facility] Address: [address] [place], [place] [address] Performed By: #### 2 4331-1, 24144-2 ####[facility] LABCLIA [id number] [place] [address] [place] Creatinine [Mass/Vol] 0.68 mg/dL Normal 0.58-0.96 [facility] Comment on above: Order Comment: Cindy michelle Type: BLOOD SPECIMENOrdering Facility: [facility] Address: [address] [place] [address] Performed By: #### 2 4331-1, 46780-3 ####[facility] [id number] [place] [address] [place] [facility] [place] Creatinine and Glomerular filtration rate.predicted panel (S/P/Bld) 88 mL/min/1.73m??? Normal >=60 [facility] Comment on above: Order Comment: Cindy michelle Type: BLOOD SPECIMENOrdering Facility: [facility] Address: [address] [place] [address] Result Comment: Hailey mated Glomerular Filtration Rate [...] actual GFR. Performed By: #### 2 4331-1, 03210-0 ####[facility] [id number] [place] [address] [place] Glucose [Mass/Vol] 90 mg/dL Normal 74-99 [facility] Comment on above: Order Comment: Cindy miguel angel Type: BLOOD SPECIMENOrdering Facility: [facility] Address: [address] [place] [address] Result Comment: The [place] Diabetes Association (ADA) provides guidance for cutoff [...] Standards of Medical Care in Diabetes 2016, [place] [employer]. Diabetes Care. 2016.39(Suppl 1). Performed By: #### 2 4331-1, ####[facility] LABCLIA [id number] [place] [address] [place] Potassium [Moles/Vol] 4.4 mmol/L Normal 3.7-5.1 [facility] Comment on above: Order Comment: Speci men Type: BLOOD SPECIMENOrdering Facility: [facility] Address: [address] [place] [address] Performed By: #### 2 4331-, ####[facility] LABCLIA [id number] [place] [address] [place] Protein [Mass/Vol] 5.8 g/dL Low 6.3-8.0 [facility] Comment on above: Order Comment: Speci men Type: BLOOD SPECIMENOrdering Facility: [facility] Address: [address] [place] [address] Performed By: #### 2 433-, ####[facility] LABCLIA [id number] [place] [address] [place] Sodium [Moles/Vol] 146 mmol/L High 136-144 [facility] Comment on above: Order Comment: Speci men Type: BLOOD SPECIMENOrdering Facility: [facility] Address: [address] [place] [address] Performed By: #### 2 4331-, ####[facility] LABCLIA [id number] [place] [id number] [place] Urea nitrogen [Mass/Vol] 23 mg/dL High 7-21 [facility] Comment on above: Order Comment: Speci men Type: BLOOD SPECIMENOrdering Facility: [facility] Address: [address] [place] [address] Performed By: #### 2 4331-1, 68558-9 ####[facility] LABCLIA [id number] [place] [address] [place] Lipid 1996 panelon 4 Cholesterol [Mass/Vol] 210 mg/dL High <200 [facility] Comment on above: Order Comment: Speci men Type: BLOOD SPECIMENOrdering Facility: [facility] Address: [address] [place] [address] Result Comment: <200 mg/dL, Desirable 200-239 mg/dL, Borderline high >239 mg/dL, High Performed By: #### 2 4331-1, ####[facility] LABCLIA [id number] [address] [place] Cholesterol in HDL [Mass/Vol] 83 mg/dL Normal >39 [facility] Comment on above: Order Comment: Speci men Type: BLOOD SPECIMENOrdering Facility: [facility] Address: [address] [place] [address] Result Comment: 40-5 9 mg/dL, Acceptable >59 mg/dL, High: Negative risk factor for coronary heart disease <40 mg/dL, Low: Positive risk factor for coronary heart disease Performed By: #### 2 4331-1, 40621-2 ####[facility] LABCLIA [id number] [address] [place] Cholesterol in LDL [Mass/Vol] 110 mg/dL High <100 [facility] Comment on above: Order Comment: Speci men Type: BLOOD SPECIMENOrdering Facility: [facility] Address: [address] [place] [address] Result Comment: <100 mg/dL, Optimal 100-129 mg/dL, Near optimal/above optimal 130-159 mg/dL, Borderline high 160-189 mg/dL, High >189 mg/dL, Very high Secondary prevention optimal LDL Cholesterol levels are recommended to be < 70 mg/dL Performed By: #### 2 4331-1, 03177-3 ####[facility] LABCLIA [id number] [address] [place] Cholesterol in LDL/Cholesterol in HDL [Mass ratio] 1.33 {ratio} Normal <2.54 [facility] Comment on above: Order Comment: Speci men Type: BLOOD SPECIMENOrdering Facility: [facility] Address: [address] [place] [address] Result Comment: Refe rence: 1. National Cholesterol Education Program ATP III Guideline At-A-Glance Quick Desk Reference: National Heart, Lung, and Blood Barron. National Institutes of Health. 2001: NIH Publication No. 01-3305. 2. An International Atherosclerosis Society position paper: global recommendations for the management of dyslipidemia: executive summary, Atherosclerosis. 2014: 232(2):410-413. Performed By: #### 2 4331-, 23896-3 ####[facility] LABCLIA [id number] [place] [address] [place] Cholesterol in VLDL [Mass/Vol] 17 mg/dL Normal <30 [facility] Comment on above: Order Comment: Speci men Type: BLOOD SPECIMENOrdering Facility: [facility] Address: [address] [place] [address] Performed By: #### 2 4331-, 89344-7 ####[facility] LABCLIA [id number] [place] [address] [place] Cholesterol non HDL [Mass/Vol] 127 mg/dL Normal <130 [facility] Comment on above: Order Comment: Speci men Type: BLOOD SPECIMENOrdering Facility: [facility] Address: [address] [place] [address] Result Comment: <130 mg/dL, Optimal 130-159 mg/dL, Near optimal/above optimal 160-189 mg/dL, Borderline high 190-219 mg/dL, High >219 mg/dL, Very high Secondary prevention optimal non HDL Cholesterol levels are recommended to be <100 mg/dL Performed By: #### 2 4331-1, ####[facility] LABCLIA [id number] [place] [address] [place] Cholesterol.total/Azalea sterol in HDL [Mass ratio] 2.53 {ratio} Normal <5.10 [facility] Comment on above: Order Comment: Speci men Type: BLOOD SPECIMENOrdering Facility: [facility] Address: [address] [place] [address] Performed By: #### 2 4331-1, ####[facility] LABIA [id number] [address] [place] FASTING TIME 12 hrs Normal [facility] Comment on above: Order Comment: Speci men Type: BLOOD SPECIMENOrdering Facility: [facility] Address: [address] [place] [address] Performed By: #### 2 4331-1, ####[facility] LABIA [id number] [place] [address] [place] Triglyceride [Mass/Vol] 85 mg/dL Normal <150 C [facility] Comment on above: Order Comment: Speci men Type: BLOOD SPECIMENOrdering Facility: [facility] Address: [address] [place] [address] Result Comment: <150 mg/dL, Normal 150-199 mg/dL, Borderline high 200-499 mg/dL, High >499 mg/dL, Very high Performed By: #### 2 4331-1, ####[facility] LABIA [id number] [address] [place] Angel 01-06-2024 [facility] Telephone ([facility]) MADISON LOFTON ([id number]) 1940 F Date Time Provider Department 01/06/24 [...] Date Reviewed: 08/14/2023 Reviewed by: Sav Mejía APRN.CREDIT CORRESPONDENCE CLERK - Fully Assessed Reason for Visit: Orders [681] Primary Visit Diagnosis:Mixed hyperlipidemia [E78.2] Other Visit Diagnosis:Small B-cell lymphoma, 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 MADISON LOFTON ([id number]) 1940 F Date Time Provider Department 10/16/23 [facility] During your visit today, we recorded the following information about you: Tammy North LPN 10/16/2023 11:24 AM Signed Nurse from [facility] called to state that the urine culture [...] 10/18/2023 1:37 PM Signed Message left on community coordinator Rusty shane , instructed to call office and ask for a triage nurse for update. MEG Gonzalez Sherrie, RN 10/18/2023 4:05 PM Signed Outside Sales Representative Insurance Haleigh at [facility] returning call to state patient is improving [...] Date Reviewed: 08/14/2023 Reviewed by: Sav Mejía APRN.CREDIT CORRESPONDENCE CLERK - Fully Assessed Reason for Visit: Orders [...] MG-TRIMETHOPRIM* 10 (more content not included)... [facility] MADISON LOFTON ([id number]) 1940 F Date Time Provider Department 10/13/23 DONNELL DOOLEY [facility] During your visit today, we recorded the following information about you: Kaleigh Simmons, RN 10/13/2023 4:54 PM Signed Nurse Haleigh calling from [facility] regarding patient. Reports they have sent a fax over to PCP office indicating pt has had recent abnormal urine dip along with confusion, increased frequency and urgency. Asking provider if they wish to order a urine culture and/or medication? Please either respond back on their fax, and fax to [phone] or call Nurse at [phone] with reply. Thank you. Jennifer Holm LPN 10/13/2023 5:13 PM Signed UA showed 70+ WBC +nitrite no blood Morelia Hewitt APRN.CREDIT CORRESPONDENCE CLERK 10/13/2023 5:18 PM Signed Start macrobid 100 [...] Date Reviewed: 08/14/2023 Reviewed by: Sav Mejía APRN.CREDIT CORRESPONDENCE CLERK - Fully Assessed Reason for Visit: Patient [...] Encounter Status:Closed by JENNIFER HOLM on 10/13/23 [facility] 08-16-2023 [facility] Telephone ([facility]) MADISON LOFTON ([id number]) 1940 F Date Time Provider Department 08/16/23 MORELIA HEWITT During your visit today, we recorded the following information about you: Morelia Hewitt APRN.CREDIT CORRESPONDENCE CLERK 08/16/2023 7:57 PM Signed Can please let [...] call and went over results, notes from Mroelia Hewitt [employer], daughter said mother is voiding more often [...] below. Johanna voices understanding. Johanna transferred to airline lounge receptionist to get testing scheduled. Alejandrina Cooper RN [...] Date Reviewed: 08/14/2023 Reviewed by: Sav Mejía APRN.CREDIT CORRESPONDENCE CLERK - Fully Assessed Reason for Visit: Results [95] Primary Visit Diagnosis:Urinary frequency [R35.0] Order(s): KIDNEY/BLADDER [[id number]] Order #: [id number] FUTURE Prescriptions as of 08/17/2023 - aspirin, [...] Status:Closed by ALEJANDRINA COOPER on 08/17/23 [facility] Carmen 08-14-2023 CNOV Office Visit ([facility] ) MADISON LOFTON ([id number]) 1940 F Date Time Provider Department 08/14/23 1:45 PM [facility] During your visit today, we recorded the following information about you: Temperature Pulse Respiration Blood pressure 98.1 degrees 63/minute 20/minute 131/78 Weight 42 kg Sav Mejía APRN.CREDIT CORRESPONDENCE CLERK 08/14/2023 2:12 PM Signed Subjective HPI Nontoxic-appearing [...] CATARACT SURGERY, COMPLEX COLONOSCOPY W/BIOPSY SINGLE/MULTIPLE 10/12/2016 [facility] DIAG AND/OR THERAP, NOT OB EGD TRANSORAL BIOPSY SINGLE/MULTIPLE 10/12/2016 EGD W/O BRSH SPEC VARICIES INJ N/A HEMORRHOIDECTOMY MASTECTOMY HX Bilateral 1982 PAST SURGICAL HISTORY OF Bronchial artery embolization, left lung PAST SURGICAL HISTORY OF 2002 Lymph node removal on left arm SLING OPER STRES INCONTINENCE TOT ABDOMINL HYSTERECTOMY 1984 ALLERGIES Augmentin [Amoxicillin-Pot Clavulanate], Codeine, Shellfish Containing Products, Bacitracin, Latex, and [place] MEDICATIONS aspirin, enteric coated (ASPIRIN, ENTERIC COATED) [...] bronchitis.) Father other (Other) Brother Parkinson's vs Lannon's. age 61. other (Other) Other Meningioma: multiple [...] blurred visio (more content not included)... Normal [facility] CT ABD/PEL WO IVCONon 2023 CT ABD/PEL WO IVCON * * *Final Report* * * DATE OF EXAM: Aug 11 2023 3:50PM [facility] 0531 - CT ABD/PEL WO IVCON [...] mass or adenopathy. Incidental findings as described Sport Psychologist: PSCB Transcribe Date/Time: Aug 16 2023 1:24P Dictated by : MANI RICHARDSON MD This examination was interpreted and the report reviewed and electronically signed by: MANI RICHARDSON MD on Aug 16 2023 1:39PM EST [id number] Normal [facility] Bacteria Ur Culton 4 Bacteria identified Cx Nom (U) ORGANISM ID: 1 <10,000 CFU/ml Lactose negative gram negative bacilli Insignificant colony count. No further workup. Normal [facility] Comment on above: Performed By: #### 6 30-4 ####[facility] LABCLIA [id number] [address] OF [facility] CNOVon 08-04-2023 CNOV Office Visit (MEKAWS ) MADISON LOFTON ([id number]) 1940 F Date Time Provider Department 08/04/23 9:00 AM MORELIA HEWITT During your visit today, we recorded the following information about you: Pulse Respiration Blood pressure 84/minute 16/minute 124/82 Morelia Hewitt APRN.CREDIT CORRESPONDENCE CLERK 08/04/2023 10:03 AM Signed This is a [...] back). Started a month ago. [facility]. Refers did a urine sample about a [...] CATARACT SURGERY, COMPLEX COLONOSCOPY W/BIOPSY SINGLE/MULTIPLE 10/12/2016 [facility] DIAG AND/OR THERAP, NOT OB EGD TRANSORAL BIOPSY SINGLE/MULTIPLE 10/12/2016 EGD W/O BRSH SPEC VARICIES INJ N/A HEMORRHOIDECTOMY MASTECTOMY HX Bilateral 1982 PAST SURGICAL HISTORY OF Bronchial artery embolization, left lung PAST SURGICAL HISTORY OF 2002 Lymph node removal on left arm SLING OPER STRES INCONTINENCE TOT ABDOMINL HYSTERECTOMY 1984 ALLERGIES Augmentin [Amoxicillin-Pot Clavulanate], Codeine, Shellfish Containing Products, Bacitracin, Latex, and [place] MEDICATIONS Current Outpatient Medications Medication Sig aspirin, [...] comments: Fathe (more content not included)... Normal [facility] UA DIP, URINE (POC)on 2023 BILIRUBIN UA (POCT) Negative Negative [facility] CLARITY UA (POCT) Clear [facility] COLOR UA (POCT) Yellow [facility] GLUCOSE UA (POCT) Negative Negative mg/dL [facility] Hemoglobin Ql (U) Negative Negative [facility] KETONE UA (POCT) Negative Negative mg/dL [facility] LEUKOCYTES UA (POCT) Negative Negative [facility] NITRITE UA (POCT) Negative Negative [facility] PH UA (POCT) 6.0 4.5 - 8.0 [facility] Protein Ql (U) Negative Negative mg/dL [facility] SPECIFIC GRAVITY UA (POCT) 1.025 1.005 - 1.030 [facility] UROBILINOGEN UA (POCT) 0.2 Lisha l E.U./dL [facility] Location:[address], [address] [place] [address] POINT OF CARE [facility] CNCOon 08-03-2023 CNCO Letter Text Normal [facility] US DVT LOWER LTon 04-02-2023 US [...] imaged segments of the left lower extremity. Sport Psychologist: PSCB Transcribe Date/Time: Apr 02 2023 4:53P Dictated by : GENOVEVA SCHERER MD This examination was interpreted and the report reviewed and electronically signed by: GENOVEVA SCHERER MD on Apr 02 2023 4:55PM EST [id number] Normal [facility] US Lower extremity vein - le fton 04-02-2023 [facility] Absolute lymphocyte countOrd ered By: Ponce Wang on 11-18-2022 Lymphocytes Auto (Unsp spec) [#/Vol] 3.50 10*3/uL 0.83-4.51 [facility] Basophil percentageOrdered B y: Ponce Wang on 11-18-2022 Basophils/100 WBC (Bld) 0.4 % 0-1 [facility] Chloride [Moles/Vol] 104 mmol/L 98-107 [facility] Eosinophils/100 WBC (Bld) 2.0 % 0-5 [facility] Glucose [Mass/Vol] 81 mg/dL 74-106 [facility] Neutrophils (Bld) [#/Vol] 10.8 10*3/uL 2.0-7.7 [facility] Neutrophils/100 WBC (Bld) 68.3 % 47-70 [facility] Potassium [Moles/Vol] 3.4 mmol/L 3.5-5.1 [facility] Sodium [Moles/Vol] 142 mmol/L 136-145 [facility] WBC (Bld) [#/Vol] 15.9 10*3/uL 4.4-11.0 [facility] Blood erythrocytes count (nu mber/volume)Ordered By: Ponce Wang on 11-18-2022 RBC (Bld) [#/Vol] 4.54 10*6/uL 4.2-5.4 [facility] Blood hemoglobin measurement (mass/volume)Ordered By: Ponce Wang on 11-18-2022 Hemoglobin (Bld) [Mass/Vol] 13.8 g/dL 12.0-15.0 [facility] Blood lymphocytes/100 leukoc ytesOrdered By: Ponce Wang on 11-18-2022 Lymphocytes/100 WBC (Bld) 22.0 % 19-41 [facility] Blood monocytes/100 leukocyt esOrdered By: Ponce Wang on 11-18-2022 Monocytes/100 WBC (Bld) 6.7 % 0-10 [facility] Blood platelet mean volumeOr dered By: Ponce Wang on 11-18-2022 Platelet mean volume (Bld) [Entitic vol] 11.8 fL 6.2-12.0 [facility] Determination of erythrocyte mean corpuscular volume (MCV)Ordered By: Ponce Wang on 11-18-2022 MCV (RBC) [Entitic vol] 95.4 fL 81-99 [facility] Hematocrit Auto (Bld) [Volum e fraction]Ordered By: Ponce Wang on 11-18-2022 Hematocrit (Bld) [Volume fraction] 43.3 % 37-47 [facility] Laboratory - Chemistry and C hemistry - challengeOrdered By: Ponce Wang on 11-18-2022 CO2 [Moles/Vol] 35.0 mmol/L 21.0-32.0 [facility] Urea nitrogen/Creatinine [Mass ratio] 33.2 mg/mg 10-20 [facility] Laboratory - Hematology and Cell countsOrdered By: Ponce Wang on 11-18-2022 Erythrocyte distribution width (RBC) [Entitic vol] 49.1 fL 35.1-43.9 [facility] Erythrocyte distribution width (RBC) [Ratio] 14.1 % 11.6-14.6 [facility] Immature granulocytes/100 WBC (Bld) 0.600 % 0.0-0.9 [facility] Comment on above: IG% - Immature Granu locytes (promyelocytes, myelocytes and metamyelocytes) > 1% indicates that a LEFT SHIFT is Present. MCH (RBC) [Entitic mass] 30.4 pg 27.0-32.0 [facility] Nucleated RBC/100 WBC (Bld) [Ratio] 0 % 0-5 [facility] MCHC Auto (RBC) [Mass/Vol]Or dered By: Ponce Wang on 11-18-2022 MCHC (RBC) [Mass/Vol] 31.9 g/dL 32-36 [facility] No Panel InformationOrdered By: Ponce Wang on 11-18-2022 Troponin I High Sensitivity 6 pg/mL 3.0-54.0 [facility] Comment on above: Please Note: New Cheryl t Units and Gender Specific Reference Ranges. For more information see Policy Stat Procedure [place] High Sensitivity Troponin (TNIH) and attachments. D-Dimer Quantitative (PE/DVT) 0.96 FEU/ug/m 0.27-0.49 [facility] Comment on above: D-Dimer ELEVATED (>0 .49): Additional studies and clinicalassessments are indicated to conclude diagnosis of:Deep Vein Thrombosis (DVT) or Pulmonary Embolism (PE)CRITICAL VALUE VERIFIED. CALLED TO [id number]/23 [address].RESULTS READ BACK BY SAME. Estimated Creatinine Clearance Calc 31.17 ml/min [facility] Estimated GFR (MDRD) Amer 100 mL/min >60 [facility] Comment on above: GFR Calc Estimated GFR (MDRD) Non-Af Amer 82 mL/min >60 [facility] Comment on above: Non- GFR Calc Platelets bldOrdered By: Adan Wang on 11-18-2022 Platelets (Bld) [#/Vol] 161 10*3/uL 150-450 [facility] Serum or plasma calcium dmitry urement (mass/volume)Ordered By: Ponce Wang on 11-18-2022 Calcium [Mass/Vol] 9.1 mg/dL 8.5-10.1 [facility] Serum or plasma creatinine m easurement (mass/volume)Ordered By: Ponce Wang on 11-18-2022 Creatinine [Mass/Vol] 0.72 mg/dL 0.55-1.02 [facility] Comment on above: The validity of the calculated GFR & GFRAA in patients over 70 years has not been determined. Clinical correlation is essential. Serum or plasma urea nitroge n measurement (mass/volume)Ordered By: Ponce Wang on 11-18-2022 Urea nitrogen [Mass/Vol] 24 mg/dL 7-18 [facility] Thin prep Papanicolaou smear with manual screeningOrdered By: Ponce Wang on 11-18-2022 Thin prep Papanicolaou smear with manual screening 3 5-15 [facility] ANES POSTPROC EVALon 023 ANES POSTPROC EVAL HNO ID: [id number] Author: Donnell Palmer DO Service: Anesthesiology Author Type: Physician Type: Anesthesia Postprocedure Evaluation Filed: 10/12/2022 1:09 PM Note Text: POST ANESTHESIA EVALUATION NOTE : 1940 Procedure Summary Date: 10/12/22 Room / Location: [place] [address] / [place] Anesthesia Start: 1121 Anesthesia Stop: 1241 [...] October 12, 2022 TIME: 1:09 PM CSN: [id number] [facility] ANES PRE-OPon 10-12-2022 ANES PRE-OP HNO ID: [id number] Author: Donnell Palmer DO Service: Anesthesiology Author Type: Physician Type: Anesthesia Preprocedure Evaluation Filed: 10/12/2022 10:47 AM Note Text: Summary: Breast Ca, Cervical Ca, Nonhogkin. Emphysema (PRN albuterol and O2), +1MR, +1-2TR ANESTHESIOLOGY DAY OF SURGERY NOTE : 1940 Procedure Information Date/Time: 10/12/22 1225 Procedure: AMPUTATION TOE(S) (Right) Location: [place] [facility]01 / [place] Surgeons: Danika Helms Estimated body mass [...] and consent discussed: yes. Patient / Responsible Republican agrees to proceed: yes Patient / Surrogate [...] October 12, 2022 TIME: 10:46 AM CSN: [id number] [facility] OPERATIVE NOon 10-12-2022 OPERATIVE NO HNO ID: [id number] Author: Danika Helms Service: ? Author Type: Physician Type: Operative Report Filed: 10/13/2022 10:44 PM Note Text: OPERATIVE/PROCEDURE REPORT LOG ID: [id number] SURGERY/PROCEDURE DATE: 10/12/2022 INCISION/PROCEDURE START TIME: 11:49 AM INCISION CLOSE/PROCEDURE END TIME: 12:27 PM SURGEON(S)/PROCEDURALI ST(S) AND SCHEDULING CLERK(S): Surgeon(s) and Role: * Danika Helms - Primary Registered Nurse Sanitarian Inspector: Carlee Ruiz RN SURGERY/PROCEDURE(S): Right 2nd toe [...] DATE: October 12, 2022 TIME: 9:13 PM [facility] SURGICAL PATHOLOGYon 023 CASE REPORT [facility] Comment on above: Order Comment: Speci miguel angel Type: TISSUE SPECIMEN Ordering Facility: [facility] Address: [address] [place], [place] [id number] Result Comment: Surg ica Pathology Report Case: [id number] Authorizing Provider: Danika Helms Collected: 10/12/2022 11:53 AM Ordering Location: [facility] Surgery Received: 10/12/2022 02:58 PM Pathologist: Dianne Bullock MD Specimens: A) - DIGIT SECOND, RIGHT FOOT, right second toe amputation B) - SOFT TISSUE, right second toe neuroma Performed By: #### S #### [facility] CLIA [id number] [address] [place] [address] [place] CLINICAL HISTORY Normal [facility] Comment on above: Order Comment: Speci men Type: TISSUE SPECIMEN Ordering Facility: [facility] Address: [address] [place], [place] [id number] Result Comment: Pre- op diagnosis: Hammer toe of right foot [M20.41] Performed By: #### S #### [facility] CLIA [id number] [address] [place] [address] [place] FINAL DIAGNOSIS Normal [facility] Comment on above: Order Comment: Speci men Type: TISSUE SPECIMEN Ordering Facility: [facility] Address: [address] [place] [address] Result Comment: A. S econd digit, right foot, amputation: - Osteocartilaginous tissue with degenerative changes. - Skin with hyperkeratosis. B. Soft tissue, right second toe, excision: - Neuroma. Performed By: #### S #### [facility] CLIA [id number] [address] [place] [address] [place] FINAL PERFORMING LAB Normal [facility] Comment on above: Order Comment: Speci men Type: TISSUE SPECIMEN Ordering Facility: [facility] Address: [address] [place] [address] Result Comment: Diag nostic interpretation performed at [place] [address] CLIA# [id number] Shade Classifier: Octaviano Glynn M.D. Performed By: #### S #### [facility] CLIA [id number] [address] [place] [address] GROSS DESCRIPTION [facility] Comment on above: Order Comment: Speci men Type: TISSUE SPECIMEN Ordering Facility: [facility] Address: [address] [place] [address] Result Comment: A. D IGIT SECOND, RIGHT FOOT Received in formalin designated right second toe amputation is a toe measuring 5.3 x 1.5 x 1.4 cm. On the medial aspect is a callus lesion measuring 0.5 x 0.4 cm. Sectioning the bone reveals a softened cut surface. A union contract representative section of the bone and skin lesion are submitted in cassette A1 after decalcification. B. SOFT TISSUE Received in formalin designated right second toe neuroma is an irregular segments of white rubbery tissue with yellow fatty tissue measuring 3 x 0.9 x 0.4 cm. The specimen is totally submitted in cassette B1. BF October 13, 2022 12:44 PM Gross examination performed at [facility], [address] [place] [address] Performed By: #### S #### [facility] CLIA [id number] [place] XR FLUOROSCOPYon 10-12-2022 [...] Epic for further discussion. IMPRESSION: As discussed Sport Psychologist: TAMMY Transcribe Date/Time: Oct 12 2022 1:30P Dictated by : JANNY BOWMAN DO This examination was interpreted and the report reviewed and electronically signed by: JANNY BOWMAN DO on Oct 12 2022 1:34PM EST [id number] [facility] XR FOOT 3V AP/LAT/OBL RTon 0 10-12-2022 [...] radiopaque foreign body. IMPRESSION: Expected postoperative changes. Sport Psychologist: TAMMY Transcribe Date/Time: Oct 12 2022 2:59P Dictated by : TRACEY HURTADO MD This examination was interpreted and the report reviewed and electronically signed by: TRACEY HURTADO MD on Oct 12 2022 3:01PM EST [id number] Normal [facility] CBC W Auto Differential pane l (Bld)on 06-15-2022 Basophils (Bld) [#/Vol] 0.06 10*3/uL <0.11 k/uL [facility] Basophils/100 WBC (Bld) 0.4 % C [facility] Differential cell count method Nom (Bld) Auto [facility] Eosinophils (Bld) [#/Vol] 0.19 10*3/uL <0.46 k/uL [facility] Eosinophils/100 WBC (Bld) 1.3 % [facility] Erythrocyte distribution width (RBC) [Ratio] 13.3 % 11.5 - 15.0 % [facility] Hematocrit (Bld) [Volume fraction] 43.3 % 36.0 - 46.0 % [facility] Hemoglobin (Bld) [Mass/Vol] 14.4 g/dL 11.5 - 15.5 g/dL [facility] Immature granulocytes (Bld) [#/Vol] 0.07 10*3/uL <0.10 k/uL [facility] Immature granulocytes/100 WBC (Bld) 0.5 % [facility] Lymphocytes (Bld) [#/Vol] 3.82 10*3/uL 1.00 - 4.00 k/uL [facility] Lymphocytes/100 WBC (Bld) 25.7 % [facility] MCH (RBC) [Entitic mass] 31.4 pg 26.0 - 34.0 pg [facility] MCHC (RBC) [Mass/Vol] 33.3 g/dL 30.5 - 36.0 g/dL [facility] MCV (RBC) [Entitic vol] 94.5 fL 80.0 - 100.0 fL [facility] Monocytes (Bld) [#/Vol] 1.03 10*3/uL High <0.87 k/uL [facility] Monocytes/100 WBC (Bld) 6.9 % C [facility] Neutrophils (Bld) [#/Vol] 9.70 10*3/uL High 1.45 - 7.50 k/uL [facility] Neutrophils/100 WBC (Bld) 65.2 % [facility] Nucleated RBC (Bld) [#/Vol] <0.01 k/uL [facility] Nucleated RBC/100 WBC (Bld) [Ratio] 0.0 /100 WBC [facility] Platelet mean volume (Bld) [Entitic vol] 12.2 fL 9.0 - 12.7 fL [facility] Platelets (Bld) [#/Vol] 193 10*3/uL 150 - 400 k/uL [facility] RBC (Bld) [#/Vol] 4.58 10*6/uL 3.90 - 5.2 0 m/uL [facility] WBC (Bld) [#/Vol] 14.87 10*3/uL High 3.70 - 11 .00 k/uL [facility] Absolute lymphocyte countOrd ered By: Dr. Kendrick on 04-15-2022 Lymphocytes Auto (Unsp spec) [#/Vol] 4.98 10*3/uL 0.83-4.51 [facility] Basophil percentageOrdered B y: Dr. Kendrick on 04-15-2022 Basophil percentage 0-5 SEEN /hpf 0-5 [facility] Basophils/100 WBC (Bld) 0.3 % 0-1 [facility] Bilirubin [Mass/Vol] 0.60 mg/dL 0.20-1.00 [facility] Comment on above: For patients on eltr ombopag therapy, use of Dimension [place] TBIL is not recommended. Chloride [Moles/Vol] 99 mmol/L 98-107 [facility] Eosinophils/100 WBC (Bld) 0.3 % 0-5 [facility] Glucose [Mass/Vol] 126 mg/dL 74-106 [facility] Comment on above: Fasting Glucose resu lt greater than or equal to 126 mg/dL suggests DIABETES MELLITUS per A.D.A. criteria. Neutrophils (Bld) [#/Vol] 9.6 10*3/uL 2.0-7.7 [facility] Neutrophils/100 WBC (Bld) 61.8 % 47-70 [facility] Potassium [Moles/Vol] 3.4 mmol/L 3.5-5.1 [facility] Protein [Mass/Vol] 6.5 g/dL 6.4-8.2 [facility] Sodium [Moles/Vol] 138 mmol/L 136-145 [facility] WBC (Bld) [#/Vol] 15.6 10*3/uL 4.4-11.0 [facility] Bilirubin Test strip Ql (U)O rdered By: Dr. Kendrick on 04-15-2022 Bilirubin Ql (U) Negative Negative [facility] Blood erythrocytes count (nu mber/volume)Ordered By: Dr. Kendrick on 04-15-2022 RBC (Bld) [#/Vol] 4.72 10*6/uL 4.2-5.4 [facility] Blood hemoglobin measurement (mass/volume)Ordered By: Dr. Kendrick on 04-15-2022 Hemoglobin (Bld) [Mass/Vol] 14.6 g/dL 12.0-15.0 [facility] Blood lymphocytes/100 leukoc ytesOrdered By: Dr. Kendrick on 04-15-2022 Lymphocytes/100 WBC (Bld) 32.0 % 19-41 [facility] Blood monocytes/100 leukocyt esOrdered By: Dr. Kendrick on 04-15-2022 Monocytes/100 WBC (Bld) 5.3 % 0-10 W [facility] Blood platelet mean volumeOr dered By: Dr. Kendrick on 04-15-2022 Platelet mean volume (Bld) [Entitic vol] 11.8 fL 6.2-12.0 [facility] Determination of erythrocyte mean corpuscular volume (MCV)Ordered By: Dr. Kendrick on 04-15-2022 MCV (RBC) [Entitic vol] 91.5 fL 81-99 [facility] Direct bilirubinOrdered By: Dr. Kendrick on 04-15-2022 Bilirubin.direct [Mass/Vol] 0.19 mg/dL 0.00-0.30 [facility] Hematocrit Auto (Bld) [Volum e fraction]Ordered By: Dr. Kendrick on 04-15-2022 Hematocrit (Bld) [Volume fraction] 43.2 % 37-47 [facility] Hyaline casts LM.LPF (Urine sed) [#/Area]Ordered By: Dr. Kendrick on 04-15-2022 Hyaline casts (Urine sed) [#/Area] 0 /[LPF] 0-5 [facility] Ketones Test strip Ql (U)Ord ered By: Dr. Kendrick on 04-15-2022 Ketones Ql (U) 5 mg/dl Negative [facility] Laboratory - Chemistry and C hemistry - challengeOrdered By: Dr. Kendrick on 04-15-2022 ALP [Catalytic activity/Vol] 79 U/L 45-117 [facility] ALT [Catalytic activity/Vol] 27 U/L 13-56 [facility] CO2 [Moles/Vol] 28.0 mmol/L 21.0-32.0 [facility] Globulin (S) [Mass/Vol] 2.8 g/dL 2.2-4.2 [facility] Urea nitrogen/Creatinine [Mass ratio] 44.0 mg/mg 10-20 [facility] Laboratory - Hematology and Cell countsOrdered By: Dr. Kendrick on 04-15-2022 Erythrocyte distribution width (RBC) [Entitic vol] 44.9 fL 35.1-43.9 [facility] Erythrocyte distribution width (RBC) [Ratio] 13.4 % 11.6-14.6 [facility] Immature granulocytes/100 WBC (Bld) 0.300 % 0.0-0.9 [facility] Comment on above: IG% - Immature Granu locytes (promyelocytes, myelocytes and metamyelocytes) > 1% indicates that a LEFT SHIFT is Present. MCH (RBC) [Entitic mass] 30.9 pg 27.0-32.0 [facility] Nucleated RBC/100 WBC (Bld) [Ratio] 0 % 0-5 [facility] MCHC Auto (RBC) [Mass/Vol]Or dered By: Dr. Kendrick on 04-15-2022 MCHC (RBC) [Mass/Vol] 33.8 g/dL 32-36 [facility] Mucus LM Ql (Urine sed)Order ed By: Dr. Kendrick on 04-15-2022 Mucus Ql (Urine sed) 0 SEEN /hpf [facility] Nitrite Test strip Ql (U)Ord ered By: Dr. Kendrick on 04-15-2022 Nitrite Ql (U) Negative Negative [facility] No Panel InformationOrdered By: Dr. Kendrick on 04-15-2022 Estimated Creatinine Clearance Calc 36.55 ml/min [facility] Estimated GFR (MDRD) Amer 89 mL/min >60 [facility] Comment on above: GFR Calc Estimated GFR (MDRD) Non-Af Amer 74 mL/min >60 [facility] Comment on above: Non- GFR Calc Troponin I High Sensitivity 4 pg/mL 3.0-54.0 [facility] Comment on above: Please Note: New Cheryl t Units and Gender Specific Reference Ranges. For more information see Policy Stat Procedure [place] High Sensitivity Troponin (TNIH) and attachments. Platelets bldOrdered By: Dr. Kendrick on 04-15-2022 Platelets (Bld) [#/Vol] 200 10*3/uL 150-450 [facility] Protein Test strip Ql (U)Ord ered By: Dr. Kendrick on 04-15-2022 Protein Ql (U) 15 mg/dl Negative [facility] Serum or plasma albumin dmitry urement (mass/volume)Ordered By: Dr. Kendrick on 04-15-2022 Albumin [Mass/Vol] 3.7 g/dL 3.2-5.0 [facility] Serum or plasma calcium dmitry urement (mass/volume)Ordered By: Dr. Kendrick on 04-15-2022 Calcium [Mass/Vol] 9.8 mg/dL 8.5-10.1 [facility] Serum or plasma creatinine m easurement (mass/volume)Ordered By: Dr. Kendrick on 04-15-2022 Creatinine [Mass/Vol] 0.80 mg/dL 0.55-1.02 [facility] Comment on above: The validity of the calculated GFR & GFRAA in patients over 70 years has not been determined. Clinical correlation is essential. Serum or plasma urea nitroge n measurement (mass/volume)Ordered By: Dr. Kendrick on 04-15-2022 Urea nitrogen [Mass/Vol] 35 mg/dL 7-18 [facility] Squamous epithelial cells de tection in urine sediment by light microscopyOrdered By: Dr. Kendrick on 04-15-2022 Epithelial cells.squamous LM Ql (Urine sed) 0-5 SEEN /hpf 5-10 [facility] Thin prep Papanicolaou smear with manual screeningOrdered By: Dr. Kendrick on 04-15-2022 Thin prep Papanicolaou smear with manual screening 21 U/L 15-37 [facility] Thin prep Papanicolaou smear with manual screening 11 5-15 [facility] Urine blood detectionOrdered By: Dr. Kendrick on 04-15-2022 RBC Ql (U) Negative Negative [facility] RBC Ql (U) 0 SEEN /hpf 0-5 [facility] Urine clarityOrdered By: Dr. Kendrick on 04-15-2022 Clarity (U) Sl. Cloudy Clear [facility] Urine color determinationOrd ered By: Dr. Kendrick on 04-15-2022 Color (U) Yellow Yellow [facility] Urine glucose detectionOrder ed By: Dr. Kendrick on 04-15-2022 Glucose Ql (U) Normal mg/dl Normal [facility] Urine leukocyte esterase det ection by dipstickOrdered By: Dr. Kendrick on 04-15-2022 Leukocyte esterase Test strip Ql (U) 100 /ul Negative [facility] Urine pHOrdered By: Dr. Terry horvath on 04-15-2022 pH (U) 6.0 [pH] 5.0 - 8.0 [facility] Urine sediment bacteria coun t by microscopy (number/high power field)Ordered By: Dr. Kendrick on 04-15-2022 Bacteria LM.HPF (Urine sed) [#/Area] 0 /[HPF] None Seen [facility] Urine specific gravity measu rementOrdered By: Dr. Kendrick on 04-15-2022 Specific gravity (U) [Rel density] 1.020 1.002-1.030 [facility] Urobilinogen Auto test strip Ql (U)Ordered By: Dr. Kendrick on 04-15-2022 Urobilinogen Ql (U) Normal mg/dl Normal [facility] XR CHEST 2V FRONTAL/LATon [facility] XR Chest PA and Lateralon IMPRESSION: No acute radiographic abnormality. Sport Psychologist: PSCB Transcribe Date/Time: Mar 16 2022 11:37A Dictated by : DOMI HOLLINGSWORTH MD This examination was interpreted and the report reviewed and electronically signed by: DOMI HOLLINGSWORTH MD on Mar 16 2022 11:38AM [facility] DIVISION OF RADIOLOGY * * *Final Report* [...] changes. DIVISION OF RADIOLOGY Provider, Kiera Onofre [facility] - 03/16/2022 * * *Final Report* [...] changes. IMPRESSION IMPRESSION: No acute radiographic abnormality. Sport Psychologist: PSCB Transcribe Date/Time: Mar 16 2022 11:37A Dictated by : DOMI HOLLINGSWORTH MD This examination was interpreted and the report reviewed and electronically signed by: DOMI HOLLINGSWORTH MD on Mar 16 2022 11:38AM EST [facility] Radiology Study observation (narrative) [facility] XR Chest PA and LateralOrder ed By: [facility] Provider on 03-16-2022 [facility] XR Lumbar spine 3 Viewson IMPRESSION: Lumbar spine degenerative changes as described above. Sport Psychologist: TAMMY Transcribe Date/Time: Sep 05 2021 3:24P [...] spine are presented. FINDINGS: There are five [id number] lumbar vertebrae. No acute fractures demonstrated. There is grade 1 L4 on L5 anterolisthesis. The disc spaces are grossly preserved. There is mild osteophyte formation, with facet arthrosis. Kissing spine seen on lateral view. The bones are osteopenic. Others: There are vascular calcifications ZZZ_DO_NOT_ USE_DIVISIO N OF RADIOLOGY [facility] * * *Final Report* * [...] spine are presented. FINDINGS: There are five [id number] lumbar vertebrae. No acute fractures demonstrated. There is grade 1 L4 on L5 anterolisthesis. The disc spaces are grossly preserved. There is mild osteophyte formation, with facet arthrosis. Kissing spine seen on lateral view. The bones are osteopenic. Others: There are vascular calcifications IMPRESSION IMPRESSION: Lumbar spine degenerative changes as described above. Sport Psychologist: [facility] Transcribe Date/Time: Sep 05 2021 3:24P Dictated by : HALINA GARBER MD This examination was interpreted and the report reviewed and electronically signed by: HALINA GARBER MD on Sep 05 2021 3:29PM EST [facility] XR Lumbar spine 3 ViewsOrder ed By: Ccf Provider on 09-05-2021 [facility] XR Lumbar spine 3 Viewson Radiology Study observation (narrative) [facility] MRI BRAIN WO/W IVCONon 05-26 [facility] XR Chest PA and Lateralon IMPRESSION: Stable chest. No acute cardiopulmonary process. Sport Psychologist: [facility] Transcribe Date/Time: May 06 2021 4:26P Dictated by : JENNIFER OJNES MD This examination was interpreted and the [...] intact DIVISION OF RADIOLOGY Provider, Terrence allen Barron - 05/06/2021 * * *Final Report* * [...] IMPRESSION: Stable chest. No acute cardiopulmonary process. Sport Psychologist: [facility] Transcribe Date/Time: May 06 2021 4:26P Dictated by : JENNIFER JONES MD This examination was interpreted and the report reviewed and electronically signed by: JENNIFER JONES MD on May 06 2021 4:28PM EST [facility] Radiology Study [facility]narrative[facility] Chest PA and LateralOrder ed By: Terrence Provider on 05-06-2021 [facility] Clinical Lists Update: Prelo rating clerk 11-09-2016 Left ventricular Ejection fraction 65 % Invalid Interpretation Code [employer] Work Phone: Office Visiton 10-22-2016 Documentation of current medications (procedure) Done Invalid Interpretation Code [employer] Work Phone: Fall risk assessment No Invalid Interpretation Code [employer] Work Phone: Tobacco use CPHS Former smoker Invalid Interpretation Code [employer] Work Phone: Replaced Document: Nayan RAMÍREZ Observationson 10-22-2016 electrocardiogram interpretation Sinus Bradycardia Voltage criteria for LVH (S(V1)+R(V5) exceeds 4.00 mV). -Nonspecific ST depression -Seen with left ventricular hypertrophy (strain) or digitalis effect. ABNORMAL Invalid Interpretation Code [employer] Work Phone: GE use only - for [employer] import when terms are not otherwise specified 393 ms Invalid Interpretation Code [employer] Work Phone: [phone] P wave axis, electrocardiogram 64 deg Invalid Interpretation Code [employer] Work Phone: [phone] AR interval, electrocardiogram 140 ms Invalid Interpretation Code [employer] Work Phone: [phone] Pulse (Heart Rate) 56 /min Invalid Interpretation Code [employer] Work Phone: [phone] QRS axis, electrocardiogram 41 deg Invalid Interpretation Code [employer] Work Phone: [phone] QRS duration, electrocardiogram 84 ms Invalid Interpretation Code [employer] Work Phone: [phone] QT interval, electrocardiogram new path ms Invalid Interpretation Code [employer] Work Phone: [phone] T wave axis, electrocardiogram 42 deg Invalid Interpretation Code [employer] Work Phone: [phone] Clinical Lists Update: Prelo rating clerk 10-21-2016 Tobacco smoking status NHIS Former smoker [employer] Work Phone: [phone] Tobacco use [facility] Former smoker Invalid Interpretation Code [employer] Work Phone: [phone] Vital Signs Date Time Vital Sign Value Performing Clinician Ziggy arriola 08-22-2024 22:00-0400 Body temperature 98.8 [degF] Dr. Donnell Dooley MD Work Phone: [facility] 08-22-2024 22:00-0400 Diastolic blood pressure 88 mm[Hg] Dr. Donnell Dooley MD Work Phone: [facility] 08-22-2024 22:00-0400 Heart rate 81 /min Dr. Donnell Dooley MD Work Phone: [facility] 08-22-2024 22:00-0400 Inhaled oxygen flow rate 2 L/min Dr. Donnell Dooley MD Work Phone: [facility] 08-22-2024 22:00-0400 Respiratory rate 24 /min Dr. Donnell Dooley MD Work Phone: [facility] 08-22-2024 22:00-0400 SaO2% (BldA) [Mass fraction] 98 % Dr. Donnell Dooley MD Work Phone: [facility] 08-22-2024 22:00-0400 Systolic blood pressure 121 mm[Hg] Dr. Donnell Dooley MD Work Phone: [facility] 08-22-2024 17:02-0400 Body mass index (BMI) [Ratio] 17.4 kg/m2 Dr. Donnell Dooley MD Work Phone: [facility] 08-22-2024 17:02-0400 Body weight 41.[address] Donnell Dooley MD Work Phone: [facility] 08-22-2024 16:32-0400 Body height 154.[address] Donnell Dooley MD Work Phone: [facility] 01-14-2024 14:07-0500 Body height 149.9 cm Donnell Dooley MD Work Phone: [facility] 01-14-2024 14:07-0500 Body mass index (BMI) [Ratio] 20.44 kg/m2 Donnell Dooley MD Work Phone: [facility] 01-14-2024 14:07-0500 Body weight 45.9 kg Donnell Dooley MD Work Phone: [facility] 01-14-2024 14:07-0500 Diastolic blood pressure 66 mm[Hg] Donnell Dooley MD Work Phone: [facility] 01-14-2024 14:07-0500 Heart rate 59 /min Donnell Dooley MD Work Phone: [facility] 01-14-2024 14:07-0500 SaO2% (BldA) [Mass fraction] 99 % Donnell Dooley MD Work Phone: [facility] 01-14-2024 14:07-0500 Systolic blood pressure 118 mm[Hg] Donnell Dooley MD Work Phone: [facility] 08-14-2023 13:47-0400 Body mass index (BMI) [Ratio] 18.18 kg/m2 Sav Mejía APRN.CNP Work Phone: [facility] 08-14-2023 13:47-0400 Body temperature 98.1 [degF] Sav Mejía OFFSET LITHOGRAPHIC PRESS OPERATOR.CREDIT CORRESPONDENCE CLERK Work Phone: [facility] 08-14-2023 13:47-0400 Body weight 42 kg Sav Mejía OFFSET LITHOGRAPHIC PRESS OPERATOR.CREDIT CORRESPONDENCE CLERK Work Phone: [facility] 08-14-2023 13:47-0400 Diastolic blood pressure 78 mm[Hg] Sav Mejía OFFSET LITHOGRAPHIC PRESS OPERATOR.CREDIT CORRESPONDENCE CLERK Work Phone: [facility] 08-14-2023 13:47-0400 Heart rate 63 /min Sav Mejía OFFSET LITHOGRAPHIC PRESS OPERATOR.CREDIT CORRESPONDENCE CLERK Work Phone: [facility] 08-14-2023 13:47-0400 Respiratory rate 20 /min Sav Mejía OFFSET LITHOGRAPHIC PRESS OPERATOR.CREDIT CORRESPONDENCE CLERK Work Phone: [facility] 08-14-2023 13:47-0400 SaO2% (BldA) [Mass fraction] 98 % Sav Mejía OFFSET LITHOGRAPHIC PRESS OPERATOR.CREDIT CORRESPONDENCE CLERK Work Phone: [facility] 08-14-2023 13:47-0400 Systolic blood pressure 131 mm[Hg] Sav Mejía OFFSET LITHOGRAPHIC PRESS OPERATOR.CREDIT CORRESPONDENCE CLERK Work Phone: [facility] 08-04-2023 09:13-0400 Diastolic blood pressure 82 mm[Hg] Morelia Haagen OFFSET LITHOGRAPHIC PRESS OPERATOR.CREDIT CORRESPONDENCE CLERK Work Phone: [facility] 08-04-2023 09:13-0400 Heart rate 84 /min Morelia Haagen OFFSET LITHOGRAPHIC PRESS OPERATOR.CREDIT CORRESPONDENCE CLERK Work Phone: [facility] 08-04-2023 09:13-0400 Respiratory rate 16 /min Morelia Haagen OFFSET LITHOGRAPHIC PRESS OPERATOR.CREDIT CORRESPONDENCE CLERK Work Phone: [facility] 08-04-2023 09:13-0400 Systolic blood pressure 124 mm[Hg] Morelia Haagen OFFSET LITHOGRAPHIC PRESS OPERATOR.CREDIT CORRESPONDENCE CLERK Work Phone: [facility] 06-28-2023 10:04-0400 Body mass index (BMI) [Ratio] 18.26 kg/m2 Donnell Dooley MD Work Phone: [facility] 06-28-2023 10:04-0400 Body weight 42.19 kg Donnell Dooley MD Work Phone: [facility] 06-28-2023 10:04-0400 Diastolic blood pressure 72 mm[Hg] Donnell Dooley MD Work Phone: [facility] 06-28-2023 10:04-0400 Heart rate 64 /min Donnell Dooley MD Work Phone: [facility] 06-28-2023 10:04-0400 SaO2% (BldA) [Mass fraction] 99 % Donnell Dooley MD Work Phone: [facility] 06-28-2023 10:04-0400 Systolic blood pressure 122 mm[Hg] Donnell Dooley MD Work Phone: [facility] 05-18-2023 11:05-0400 Body weight 44.73 kg Amber Suppan OFFSET LITHOGRAPHIC PRESS OPERATOR.ASSOCIATE WEB DEVELOPER Work Phone: [facility] 05-18-2023 11:05-0400 Diastolic blood pressure 80 mm[Hg] Amber Suppan OFFSET LITHOGRAPHIC PRESS OPERATOR.ASSOCIATE WEB DEVELOPER Work Phone: [facility] 05-18-2023 11:05-0400 Heart rate 70 /min Amber Suppan OFFSET LITHOGRAPHIC PRESS OPERATOR.ASSOCIATE WEB DEVELOPER Work Phone: [facility] 05-18-2023 11:05-0400 SaO2% (BldA) [Mass fraction] 99 % Amber Suppan OFFSET LITHOGRAPHIC PRESS OPERATOR.ASSOCIATE WEB DEVELOPER Work Phone: [facility] 05-18-2023 11:05-0400 Systolic blood pressure 112 mm[Hg] Amber Suppan OFFSET LITHOGRAPHIC PRESS OPERATOR.ASSOCIATE WEB DEVELOPER Work Phone: [facility] 05-04-2023 14:19-0400 Body temperature 98.8 [degF] Amber Suppan OFFSET LITHOGRAPHIC PRESS OPERATOR.ASSOCIATE WEB DEVELOPER Work Phone: [facility] 05-04-2023 14:19-0400 Body weight 43.09 kg Amber Suppan OFFSET LITHOGRAPHIC PRESS OPERATOR.ASSOCIATE WEB DEVELOPER Work Phone: [facility] 05-04-2023 14:19-0400 Diastolic blood pressure 64 mm[Hg] Amber Suppan OFFSET LITHOGRAPHIC PRESS OPERATOR.ASSOCIATE WEB DEVELOPER Work Phone: [facility] 05-04-2023 14:19-0400 Heart rate 71 /min Amber Suppan OFFSET LITHOGRAPHIC PRESS OPERATOR.ASSOCIATE WEB DEVELOPER Work Phone: [facility] 05-04-2023 14:19-0400 Respiratory rate 14 /min Amber Suppan OFFSET LITHOGRAPHIC PRESS OPERATOR.ASSOCIATE WEB DEVELOPER Work Phone: [facility] 05-04-2023 14:19-0400 SaO2% (BldA) [Mass fraction] 95 % Amber Suppan OFFSET LITHOGRAPHIC PRESS OPERATOR.ASSOCIATE WEB DEVELOPER Work Phone: [facility] 05-04-2023 14:19-0400 Systolic blood pressure 102 mm[Hg] Amber Suppan OFFSET LITHOGRAPHIC PRESS OPERATOR.ASSOCIATE WEB DEVELOPER Work Phone: [facility] 04-05-2023 13:39-0500 Body weight 42.64 kg Dallas Bharati OFFSET LITHOGRAPHIC PRESS OPERATOR.CREDIT CORRESPONDENCE CLERK Work Phone: [facility] 04-05-2023 13:39-0500 Diastolic blood pressure 78 mm[Hg] Dallas Bharati OFFSET LITHOGRAPHIC PRESS OPERATOR.CREDIT CORRESPONDENCE CLERK Work Phone: [facility] 04-05-2023 13:39-0500 Heart rate 80 /min Dallas Bharati OFFSET LITHOGRAPHIC PRESS OPERATOR.CREDIT CORRESPONDENCE CLERK Work Phone: [facility] 04-05-2023 13:39-0500 Respiratory rate 16 /min Dallas Bharati OFFSET LITHOGRAPHIC PRESS OPERATOR.CREDIT CORRESPONDENCE CLERK Work Phone: [facility] 04-05-2023 13:39-0500 Systolic blood pressure 118 mm[Hg] Dallas Bharati OFFSET LITHOGRAPHIC PRESS OPERATOR.CREDIT CORRESPONDENCE CLERK Work Phone: [facility] 04-02-2023 12:56-0500 Body weight 44.54 kg Dallas Bharati OFFSET LITHOGRAPHIC PRESS OPERATOR.CREDIT CORRESPONDENCE CLERK Work Phone: [facility] 04-02-2023 12:56-0500 Diastolic blood pressure 70 mm[Hg] Dallas Bharati OFFSET LITHOGRAPHIC PRESS OPERATOR.CREDIT CORRESPONDENCE CLERK Work Phone: [facility] 04-02-2023 12:56-0500 Heart rate 69 /min Dallas Bharati OFFSET LITHOGRAPHIC PRESS OPERATOR.CREDIT CORRESPONDENCE CLERK Work Phone: [facility] 04-02-2023 12:56-0500 SaO2% (BldA) [Mass fraction] 96 % Dallas Bharati OFFSET LITHOGRAPHIC PRESS OPERATOR.CREDIT CORRESPONDENCE CLERK Work Phone: [facility] 04-02-2023 12:56-0500 Systolic blood pressure 110 mm[Hg] Dallas Bharati OFFSET LITHOGRAPHIC PRESS OPERATOR.CREDIT CORRESPONDENCE CLERK Work Phone: [facility] 01-27-2023 09:52-0500 Body height 152 cm Margarito Shields MD Work Phone: [facility] 01-27-2023 09:52-0500 Body temperature 98.4 [degF] Margarito Shields MD Work Phone: [facility] 01-27-2023 09:52-0500 Body weight 40.37 kg Margarito Shields MD Work Phone: [facility] 01-27-2023 09:52-0500 Diastolic blood pressure 77 mm[Hg] Margarito Shields MD Work Phone: [facility] 01-27-2023 09:52-0500 Heart rate 89 /min Margarito Shields MD Work Phone: [facility] 01-27-2023 09:52-0500 SaO2% (BldA) [Mass fraction] 100 % Margarito Shields MD Work Phone: [facility] 01-27-2023 09:52-0500 Systolic blood pressure 119 mm[Hg] Margarito Shields MD Work Phone: [facility] 12-23-2022 11:04-0400 Body height 152.4 cm Donnell Dooley MD Work Phone: [facility] 12-23-2022 11:04-0400 Body weight 42.64 kg Donnell Dooley MD Work Phone: [facility] 12-23-2022 11:04-0400 Diastolic blood pressure 70 mm[Hg] Donnell Dooley MD Work Phone: [facility] 12-23-2022 11:04-0400 Heart rate 78 /min Donnell Dooley MD Work Phone: [facility] 12-23-2022 11:04-0400 SaO2% (BldA) [Mass fraction] 95 % Donnell Dooley MD Work Phone: [facility] 12-23-2022 11:04-0400 Systolic blood pressure 94 mm[Hg] Donnell Dooley MD Work Phone: [facility] 12-04-2022 13:36-0400 Body height 154.[address] Donnell Dooley Work Phone: [facility] 12-04-2022 13:36-0400 Body mass index (BMI) [Ratio] 18.3 kg/m2 Dr. Donnell Dooley Work Phone: 6(463)000-499491 [place] [address] 12-04-2022 13:36-0400 Body temperature 98.1 [degF] Dr. Donnell Dooley Work Phone: 1(861)602-922317 [place] [address] 12-04-2022 13:36-0400 Body weight 44.[address] Donnell Dooley Work Phone: 4(717)025-478117 [place] [address] 12-04-2022 13:36-0400 Diastolic blood pressure 72 mm[Hg] Dr. Donnell Dooley Work Phone: 4(679)457-380691 [place] [address] 12-04-2022 13:36-0400 Heart rate 82 /min Dr. Donnell Dooley Work Phone: 3(148)611-205191 [place] [address] 12-04-2022 13:36-0400 Respiratory rate 28 /min Dr. Donnell Dooley Work Phone: 9(865)712-485891 [place] [address] 12-04-2022 13:36-0400 SaO2% (BldA) [Mass fraction] 95 % Dr. Donnell Dooley Work Phone: 4(124)604-816391 [place] [address] 12-04-2022 13:36-0400 Systolic blood pressure 122 mm[Hg] Dr. Donnell Dooley Work Phone: [facility] 11-18-2022 14:30-0400 Diastolic blood pressure 82 mm[Hg] Dr. Donnell Dooley Work Phone: [facility] 11-18-2022 14:30-0400 Heart rate 66 /min Dr. Donnell Dooley Work Phone: [facility] 11-18-2022 14:30-0400 Respiratory rate 21 /min Dr. Donnell Dooley Work Phone: 8(891)084-606394 [address] 11-18-2022 14:30-0400 SaO2% (BldA) [Mass fraction] 96 % Dr. Donnell Dooley Work Phone: [facility] 11-18-2022 14:30-0400 Systolic blood pressure 141 mm[Hg] Dr. Donnell Dooley Work Phone: 4(247)524-771117 [place] [address] 11-18-2022 10:37-0400 Body mass index (BMI) [Ratio] 18.3 kg/m2 Dr. Donnell Dooley Work Phone: 2(182)524-276017 [place] [address] 11-18-2022 10:37-0400 Body temperature 97.7 [degF] Dr. Donnell Dooley Work Phone: [facility] 11-18-2022 10:37-0400 Body weight [address] Donnell Dooley Work Phone: [facility] 10-05-2022 19:26-0400 Body weight 42.19 kg Donnell Dooley MD Work Phone: [facility] 10-05-2022 19:26-0400 Diastolic blood pressure 82 mm[Hg] Donnell Dooley MD Work Phone: [facility] 10-05-2022 19:26-0400 Heart rate 63 /min Donnell Dooley MD Work Phone: [facility] 10-05-2022 19:26-0400 SaO2% (BldA) [Mass fraction] 98 % Donnell Dooley MD Work Phone: [facility] 10-05-2022 19:26-0400 Systolic blood pressure 132 mm[Hg] Donnell Dooley MD Work Phone: [facility] 08-11-2022 06:23-0400 Body mass index (BMI) [Ratio] 17.2 kg/m2 Dr. Donnell Dooley Work Phone: [facility] 08-11-2022 06:23-0400 Body temperature 97.6 [degF] Dr. Donnell Dooley Work Phone: [facility] 08-11-2022 06:23-0400 Body weight 41.[address] Donnell Dooley Work Phone: [facility] 08-11-2022 06:23-0400 Diastolic blood pressure 71 mm[Hg] Dr. Donnell Dooley Work Phone: [facility] 08-11-2022 06:23-0400 Heart rate 61 /min Dr. Donnell Dooley Work Phone: [facility] 08-11-2022 06:23-0400 Respiratory rate 18 /min Dr. Donnell Dooley Work Phone: [facility] 08-11-2022 06:23-0400 SaO2% (BldA) [Mass fraction] 93 % Dr. Donnell Dooley Work Phone: [facility] 08-11-2022 06:23-0400 Systolic blood pressure 106 mm[Hg] Dr. Donnell Dooley Work Phone: [facility] 06-15-2022 10:03-0400 Body height 152.4 cm Donnell Dooley MD Work Phone: [facility] 06-15-2022 10:03-0400 Body weight 42.37 kg Donnell Dooley MD Work Phone: [facility] 06-15-2022 10:03-0400 Diastolic blood pressure 72 mm[Hg] Donnell Dooley MD Work Phone: [facility] 06-15-2022 10:03-0400 Heart rate 60 /min Donnell Dooley MD Work Phone: [facility] 06-15-2022 10:03-0400 SaO2% (BldA) [Mass fraction] 97 % Donnell Dooley MD Work Phone: [facility] 06-15-2022 10:03-0400 Systolic blood pressure 120 mm[Hg] Donnell Dooley MD Work Phone: [facility] 04-15-2022 15:40-0500 Heart rate 62 /min Dr. Donnell Dooley Work Phone: [facility] 04-15-2022 15:40-0500 Respiratory rate 21 /min Dr. Donnell Dooley Work Phone: [facility] 04-15-2022 15:40-0500 SaO2% (BldA) [Mass fraction] 100 % Dr. Donnell Dooley Work Phone: [facility] 04-15-2022 15:31-0500 Diastolic blood pressure 84 mm[Hg] Dr. Donnell Dooley Work Phone: [facility] 04-15-2022 15:31-0500 Systolic blood pressure 147 mm[Hg] Dr. Donnell Dooley Work Phone: [facility] 04-15-2022 12:48-0500 Body height 154.[address] Donnell Dooley Work Phone: [facility] 04-15-2022 12:48-0500 Body mass index (BMI) [Ratio] 16.9 kg/m2 Dr. Donnell Dooley Work Phone: [facility] 04-15-2022 12:48-0500 Body temperature 98 [degF] Dr. Donnell Dooley Work Phone: [facility] 04-15-2022 12:48-0500 Body weight 40.[address] Donnell Dooley Work Phone: [facility] 03-16-2022 10:27-0500 Body temperature 97.3 [degF] Patsy Valencia APRN.CNP Work Phone: [facility] 03-16-2022 10:27-0500 Body weight 40.01 kg Patsy Valencia APRN.CREDIT CORRESPONDENCE CLERK Work Phone: [facility] 03-16-2022 10:27-0500 Diastolic blood pressure 78 mm[Hg] Patsy Valencia APRN.CREDIT CORRESPONDENCE CLERK Work Phone: [facility] 03-16-2022 10:27-0500 Heart rate 69 /min Patsy Valencia APRN.CREDIT CORRESPONDENCE CLERK Work Phone: [facility] 03-16-2022 10:27-0500 Respiratory rate 18 /min Patsy Valencia APRN.CREDIT CORRESPONDENCE CLERK Work Phone: [facility] 03-16-2022 10:27-0500 SaO2% (BldA) [Mass fraction] 99 % Patsy Valencia APRN.CREDIT CORRESPONDENCE CLERK Work Phone: [facility] 03-16-2022 10:27-0500 Systolic blood pressure 116 mm[Hg] Patsy Valencia APRN.CREDIT CORRESPONDENCE CLERK Work Phone: [facility] 01-07-2022 10:18-0500 Body mass index (BMI) [Ratio] 17.4 kg/m2 Dr. Donnell Dooley Work Phone: [facility] 01-07-2022 10:18-0500 Body temperature 96.8 [degF] Dr. Donnell Dooley Work Phone: [facility] 01-07-2022 10:18-0500 Body weight 41.[address] Donnell Dooley Work Phone: [facility] 01-07-2022 10:18-0500 Diastolic blood pressure 67 mm[Hg] Dr. Donnell Dooley Work Phone: [facility] 01-07-2022 10:18-0500 Heart rate 72 /min Dr. Donnell Dooley Work Phone: [facility] 01-07-2022 10:18-0500 Respiratory rate 18 /min Dr. Donnell Dooley Work Phone: [facility] 01-07-2022 10:18-0500 SaO2% (BldA) [Mass fraction] 93 % Dr. Donnell Dooley Work Phone: [facility] 01-07-2022 10:18-0500 Systolic blood pressure 111 mm[Hg] Dr. Donnell Dooley Work Phone: [facility] 12-09-2021 13:20-0400 Body height 152.4 cm Donnell Dooley MD Work Phone: [facility] 12-09-2021 13:20-0400 Body weight 40.1 kg Donnell Dooley MD Work Phone: [facility] 12-09-2021 13:20-0400 Diastolic blood pressure 72 mm[Hg] Donnell Dooley MD Work Phone: [facility] 12-09-2021 13:20-0400 Systolic blood pressure 114 mm[Hg] Donnell Dooley MD Work Phone: [facility] 09-12-2021 11:42-0400 Body height 154.[address] Donnell Dooley Work Phone: [facility] Work Phone: 09-12-2021 11:42-0400 Body mass index (BMI) [Ratio] 18.3 kg/m2 Dr. oDnnell Dooley Work Phone: [facility] Work Phone: 09-12-2021 11:42-0400 Body temperature 97.4 [degF] Dr. Donnell Dooley Work Phone: [facility] Work Phone: 09-12-2021 11:42-0400 Body weight 43.[address] Donnell Dooley Work Phone: [facility] Work Phone: 09-12-2021 11:42-0400 Diastolic blood pressure 85 mm[Hg] Dr. Donnell Dooley Work Phone: [facility] Work Phone: 09-12-2021 11:42-0400 Heart rate 71 /min Dr. Donnell Dooley Work Phone: [facility] Work Phone: 09-12-2021 11:42-0400 Respiratory rate 16 /min Dr. Donnell Dooley Work Phone: [facility] Work Phone: 09-12-2021 11:42-0400 SaO2% (BldA) [Mass fraction] 97 % Dr. Donnell Dooley Work Phone: [facility] Work Phone: 09-12-2021 11:42-0400 Systolic blood pressure 147 mm[Hg] Dr. Donnell Dooley Work Phone: [facility] Work Phone: 09-04-2021 15:56-0400 Body weight 44 kg Donnell Dooley MD Work Phone: [facility] 09-04-2021 15:56-0400 Diastolic blood pressure 82 mm[Hg] Donnell Dooley MD Work Phone: [facility] 09-04-2021 15:56-0400 Heart rate 72 /min Donnell Dooley MD Work Phone: [facility] 09-04-2021 15:56-0400 Systolic blood pressure 162 mm[Hg] Donenll Dooley MD Work Phone: [facility] 08-08-2021 11:47-0400 Diastolic blood pressure 90 mm[Hg] Dr. Donnell Dooley Work Phone: [facility] Work Phone: 08-08-2021 11:47-0400 Systolic blood pressure 150 mm[Hg] Dr. Donnell Dooley Work Phone: [facility] Work Phone: 08-08-2021 11:44-0400 Body mass index (BMI) [Ratio] 18.3 kg/m2 Dr. Donnell Dooley Work Phone: [facility] Work Phone: 08-08-2021 11:44-0400 Body temperature 99.1 [degF] Dr. Donnell Dooley Work Phone: [facility] Work Phone: 08-08-2021 11:44-0400 Body weight 43.[address] Donnell Dooley Work Phone: [facility] Work Phone: 08-08-2021 11:44-0400 Heart rate 72 /min Dr. Donnell Dooley Work Phone: [facility] Work Phone: 08-08-2021 11:44-0400 Respiratory rate 20 /min Dr. Donnell Dooley Work Phone: [facility] Work Phone: 08-08-2021 11:44-0400 SaO2% (BldA) [Mass fraction] 100 % Dr. Donnell Dooley Work Phone: [facility] Work Phone: 08-04-2021 11:23-0400 Body temperature 98.1 [degF] Jane Mcmillan MD Work Phone: [facility] 08-04-2021 11:23-0400 Body weight 43.55 kg Jane Mcmillan MD Work Phone: [facility] 08-04-2021 11:23-0400 Diastolic blood pressure 77 mm[Hg] Jane Mcmillan MD Work Phone: [facility] 08-04-2021 11:23-0400 Heart rate 54 /min Jane Mcmillan MD Work Phone: [facility] 08-04-2021 11:23-0400 Systolic blood pressure 125 mm[Hg] Jane Mcmillan MD Work Phone: [facility] 07-03-2021 10:04-0400 Body mass index (BMI) [Ratio] 18.1 kg/m2 Dr. Donnell Dooley Work Phone: [facility] Work Phone: 07-03-2021 10:04-0400 Body temperature 97.7 [degF] Dr. Donnell Dooley Work Phone: [facility] Work Phone: 07-03-2021 10:04-0400 Body weight 43.[address] Donnell Dooley Work Phone: [facility] Work Phone: 07-03-2021 10:04-0400 Diastolic blood pressure 77 mm[Hg] Dr. Donnell Dooley Work Phone: [facility] Work Phone: 07-03-2021 10:04-0400 Heart rate 74 /min Dr. Donnell Dooley Work Phone: [facility] Work Phone: 07-03-2021 10:04-0400 Respiratory rate 17 /min Dr. Donnell Dooley Work Phone: [facility] Work Phone: 07-03-2021 10:04-0400 SaO2% (BldA) [Mass fraction] 98 % Dr. Donnell Dooley Work Phone: [facility] Work Phone: 07-03-2021 10:04-0400 Systolic blood pressure 125 mm[Hg] Dr. Donnell Dooley Work Phone: [facility] Work Phone: 06-04-2021 14:05-0400 Body weight 43.55 kg Donnell Dooley MD Work Phone: [facility] 06-04-2021 14:05-0400 Diastolic blood pressure 82 mm[Hg] Donnell Dooley MD Work Phone: [facility] 06-04-2021 14:05-0400 Heart rate 70 /min Donnell Dooley MD Work Phone: [facility] 06-04-2021 14:05-0400 SaO2% (BldA) [Mass fraction] 99 % Donnell Dooley MD Work Phone: [facility] 06-04-2021 14:05-0400 Systolic blood pressure 138 mm[Hg] Donnell Dooley MD Work Phone: [facility] 05-29-2021 09:44-0400 Body mass index (BMI) [Ratio] 18.7 kg/m2 Dr. Donnell Dooley Work Phone: [facility] Work Phone: 05-29-2021 09:44-0400 Body weight 44.[address] Donnell Dooley Work Phone: [facility] Work Phone: 05-29-2021 09:44-0400 Diastolic blood pressure 79 mm[Hg] Dr. Donnell Dooley Work Phone: [facility] Work Phone: 05-29-2021 09:44-0400 Heart rate 72 /min Dr. Donnell Dooley Work Phone: [facility] Work Phone: 05-29-2021 09:44-0400 SaO2% (BldA) [Mass fraction] 91 % Dr. Donnell Dooley Work Phone: [facility] Work Phone: 05-29-2021 09:44-0400 Systolic blood pressure 156 mm[Hg] Dr. Donnell Dooley Work Phone: [facility] Work Phone: 10-22-2016 13:38-0400 BMI (Body Mass Index) 18.17 kg/m2 [facility] Work Phone: 10-22-2016 13:38-0400 BP Diastolic 62 mm[Hg] Thao Archer RN [facility] Work Phone: 10-22-2016 13:38-0400 [...] management of inpatient Dr. Naeem Barnett DO -[facility] Work Phone: Start: 07-12-2024 End: 07-12-2024 ambulatory DONNELL DOOLEY Facility:[facility] Start: 07-12-2024 Patient encounter procedure DONNELL DOOLEY [facility] Start: 06-28-2024 End: 06-28-2024 ambulatory Hannah Mills MA [facility] Start: 06-28-2024 End: 06-28-2024 Patient encounter procedure Hannah Mills MA [facility] Comment on above: Population Health Na vigation Outreach ([facility] [place] [facility] ) Start: 05-11-2024 End: 05-11-2024 ambulatory Hannah Mills MA [facility] [facility] Start: 05-11-2024 End: 05-11-2024 Patient encounter procedure Hannah Mills MA [facility] [place] [facility] Comment on above: Population Health Na vigation Outreach ([facility] [place] [facility]) Start: 04-24-2024 End: 04-24-2024 Telephone encounter Reena Ricardo Arango DO Work Phone: [facility] [place] Start: 04-11-2024 End: 04-13-2024 Follow-up encounter [facility] Work Phone: Vasculary Surgery Start: 03-22-2024 End: 03-22-2024 Telephone encounter Donnell Dooley MD Work Phone: [facility] [place] Comment on above: Release Of Medical R ecords Start: 03-21-2024 End: 03-21-2024 ambulatory DONNELL Erica [facility] Facility:[facility] Start: 03-14-2024 ambulatory [facility] Facility:[facility] Start: 03-09-2024 End: 03-09-2024 Telephone encounter Donnell Dooley MD Work Phone: [facility] Comment on above: Patient Update Results Start: 02-28-2024 End: 02-28-2024 ambulatory [facility] Facility:[facility] Start: 02-28-2024 End: 02-28-2024 Patient encounter procedure Danika Helms Work Phone: Podiatry Comment on above: Onychomycosis (Prima ry Dx); Diminished pulses in lower extremity Start: 02-18-2024 [facility] Facility:[facility] Start: 02-18-2024 End: 02-18-2024 Telephone encounter Donnell Dooley MD Work Phone: [facility] Comment on above: Patient Update Start: 02-08-2024 [facility] Start: 02-07-2024 End: 02-11-2024 Telephone encounter Donnell Dooley MD Work Phone: [facility] Comment on above: Patient Update Start: 01-14-2024 End: 01-14-2024 Patient encounter procedure Donnell Dooley MD Work Phone: [facility] Comment on above: Mixed hyperlipidemia (Primary Dx); VHD (valvular heart disease); Meningioma (HCC); Meniere's disease of both ears; Pulmonary emphysema, unspecified emphysema type (HCC); Personal history of CLL (chronic lymphocytic leukemia); History of breast cancer; Mild cognitive impairment; Age-related osteoporosis without current pathological fracture Start: 01-14-2024 End: 01-14-2024 ambulatory [facility] Facility:[facility] Start: 01-12-2024 End: 01-12-2024 ambulatory Sheba Damian Facility:[facility] Start: 01-10-2024 End: 01-10-2024 ambulatory [facility] Facility:[facility] Start: 01-06-2024 End: 01-06-2024 Telephone encounter Donnell Dooley MD Work Phone: [facility] Comment on above: Orders Start: 10-17-2023 End: 10-17-2023 ambulatory Roger Boateng RN N[facility] Comment on above: Information Start: 10-17-2023 End: 10-17-2023 Patient encounter procedure Isabel Vegas RN N[facility] Comment on above: Clinical Update Start: 10-16-2023 End: 11-24-2023 Telephone encounter Desi Gomez MD Work Phone: [facility] Comment on above: Orders Start: 10-14-2023 ambulatory Donnell Dooley [facility] ty:[facility] Start: 10-13-2023 End: 10-13-2023 Telephone encounter Donnell Dooley MD Work Phone: [facility] Comment on above: Patient Update Start: 08-16-2023 Telephone encounter Morelia storm OFFSET LITHOGRAPHIC PRESS OPERATOR.CREDIT CORRESPONDENCE CLERK Work Phone: [facility] Comment on above: Results Start: 08-14-2023 End: 08-14-2023 ambulatory DONNELL DOOLEY Facility:[facility] Start: 08-14-2023 End: 08-14-2023 Patient encounter procedure Sav Mejía OFFSET LITHOGRAPHIC PRESS OPERATOR.CREDIT CORRESPONDENCE CLERK Work Phone: [facility] Comment on above: Eye pain, bilateral (Primary Dx) Start: 08-11-2023 End: 08-11-2023 ambulatory [facility] Facility:[facility] Start: 08-11-2023 End: 08-11-2023 Subsequent hospital visit by physician [facility] Comment on above: Pelvic pain [R10.2] Start: 08-04-2023 End: 08-04-2023 ambulatory [facility] Facility:[facility] Start: 08-04-2023 End: 08-04-2023 Office outpatient visit 25 minutes Morelia Hewitt APRN.CREDIT CORRESPONDENCE CLERK Work Phone: [facility] Comment on above: Pelvic pain (Primary Dx); UTI symptoms Start: 08-03-2023 ambulatory Donnell Dooley MD Work Phone: [facility] Start: 08-03-2023 E-mail encounter fro m caregiver [facility] Start: 08-03-2023 Letter encounter [facility] Comment on above: letter Start: 08-03-2023 Manual pelvic examination Donnell Dooley MD Work Phone: [facility] Comment on above: Pelvic Pain Start: 08-02-2023 ambulatory Donnell Dooley MD Work Phone: [facility] Start: 08-02-2023 Letter encounter Donnell jaimes MD Work Phone: [facility] Comment on above: letter request Start: 07-15-2023 Telephone encounter Amber Griffith APRN.ASSOCIATE WEB DEVELOPER Work Phone: [facility] Start: 07-13-2023 End: 07-13-2023 ambulatory Donnell ELLSWORTH Facility:[facility] Start: 06-28-2023 End: 06-28-2023 Patient encounter procedure Donnell Dooley MD Work Phone: [facility] Comment on above: Mixed hyperlipidemia (Primary [...] (HCC) Start: 05-18-2023 Telephone encounter Amber Griffith APRN.ASSOCIATE WEB DEVELOPER Work Phone: [facility] Start: 05-18-2023 End: 05-18-2023 Office outpatient visit 15 minutes Amber Griffith APRN.ASSOCIATE WEB DEVELOPER Work Phone: [facility] Comment on above: Venous stasis ulcer of other part of lower leg limited to breakdown of skin, unspecified laterality, unspecified whether varicose veins present (HCC) (Primary Dx) Start: 05-14-2023 Telephone encounter Donnell Dooley MD Work Phone: [facility] [place] Comment on above: Wound dressing quest ion Start: 05-04-2023 End: 05-04-2023 Office outpatient visit 15 minutes Amber Griffith APRN.ASSOCIATE WEB DEVELOPER Work Phone: [facility] [place] Comment on above: Venous stasis ulcer of left lower leg with edema of left lower leg (HCC) (HCC) (Primary Dx) Start: 04-05-2023 End: 04-05-2023 Patient encounter procedure Dallas Calabrese APRN.CREDIT CORRESPONDENCE CLERK Work Phone: [facility] [place] Comment on above: Cellulitis of skin ( Primary Dx); Left ankle swelling; Discoloration of skin of lower leg; Acute left ankle pain; Blister of left lower extremity, initial encounter Start: 04-02-2023 ambulatory [facility] [facility] Start: 04-02-2023 End: 04-02-2023 Subsequent hospital visit by physician [facility] Comment on above: Cellulitis of skin [ L03.90] Start: 04-02-2023 Telephone encounter [facility] Do[facility] MD [facility] Comment on above: Request for order Start: 04-02-2023 End: 04-02-2023 Patient encounter procedure Dallas Calabrese APRN.CREDIT CORRESPONDENCE CLERK Work Phone: [facility] [place] Comment on above: Cellulitis of skin [...] procedure Margarito Shields MD Work Phone: [place] [facility] Start: 12-23-2022 Telephone encounter Donnell Dooley MD Work Phone: [facility] [place] Start: 12-23-2022 End: 12-23-2022 Patient encounter procedure Donnell Dooley MD Work Phone: [facility] Comment on above: Mild cognitive impai rment (Primary Dx); MVP (mitral valve prolapse); Mixed hyperlipidemia; Meningioma (HCC); History of breast cancer; Small B-cell lymphoma, unspecified body region (HCC); Age-related osteoporosis without current pathological fracture; Pulmonary emphysema, unspecified emphysema type (HCC); VHD (valvular heart disease) Start: 12-11-2022 Telephone encounter Donnell Dooley MD Work Phone: [facility] Comment on above: Forms Start: 12-08-2022 Telephone encounter Donnell Dooley MD Work Phone: [facility] Comment on above: Orders Start: 12-04-2022 Telephone encounter Donnell Dooley MD Work Phone: [facility] Comment on above: Pain on left side Start: 12-04-2022 End: 12-04-2022 Emergency department patient [facility] Start: 11-18-2022 End: 11-18-2022 Emergency department patient visit Dr. 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 Start: 10-07-2022 Telephone encounter [...] encounter procedure Donnell Dooley MD Work Phone: [facility] [place] Comment on above: Mild cognitive [...] Telephone encounter Donnell Dooley MD Work Phone: [facility] [place] Comment on above: Moving to [facility] Start: 09-30-2022 Telephone encounter Donnell Dooley MD Work Phone: [facility] [place] Comment on above: Letter Start: 09-17-2022 Telephone encounter Donnell Dooley MD Work Phone: [facility] Comment on above: Release Of Medical R ecords Start: 08-11-2022 End: 08-11-[address] Donnell Dooley Work Phone: [facility] [place] Work Phone: Start: 07-23-2022 End: 07-23-2022 Patient encounter procedure Danika Helms Work Phone: Podiatry Comment on above: Callus of foot (Prim claudine Dx); Hallux valgus of right foot Start: 06-18-2022 End: 06-18-2022 Patient encounter procedure Danika Helms Work Phone: Podiatry Comment on above: Hallux valgus of rig ht foot (Primary Dx); Callus of foot; Open wound of toe, initial encounter Start: 06-17-2022 Telephone encounter Donnell Dooley MD Work Phone: [facility] Comment on above: Patient Update Results Start: 06-15-2022 End: 06-15-2022 Patient encounter procedure Donnell Dooley MD Work Phone: [facility] Comment on above: Meningioma (HCC) (Pr imary Dx); Small B-cell lymphoma, unspecified body region (HCC); Pulmonary emphysema, unspecified emphysema type (HCC); Chronic respiratory failure with hypoxia (HCC); Atrial fibrillation, unspecified type (HCC); Mild cognitive impairment; MVP (mitral valve prolapse); Age-related osteoporosis without current pathological fracture; Mixed hyperlipidemia Start: 05-19-2022 Telephone encounter Donnell Dooley MD Work Phone: [facility] Comment on above: Forms Start: 05-14-2022 [...] 04-15-2022 ambulatory Donnell Dooley MD Work Phone: [facility] Comment on above: Neurologic Problem Start: 04-15-2022 End: 04-15-2022 Emergency department patient visit Dr. Donnell Dooley Work Phone: [facility] Start: 03-25-2022 End: 03-25-2022 Patient encounter procedure Danika Helms Work Phone: Podiatry Comment on above: Hallux valgus of rig ht foot (Primary Dx); Callus of foot; Ulcer of toe of right foot, limited to breakdown of skin (HCC) Start: 03-16-2022 ambulatory Donnell Dooley MD Work Phone: [facility] Comment on above: Cough Start: 03-16-2022 End: 03-16-2022 Subsequent hospital visit by physician Xr [facility] Work Phone: Radiology Comment on above: Acute cough [R05.1] Start: 03-16-2022 End: 03-16-2022 Patient encounter procedure Patsy Valencia APRN.CNP Work Phone: [facility] Comment on above: Acute cough (Primary Dx); Rhinosinusitis Start: 01-27-2022 End: 01-27-2022 Patient encounter procedure Danika Helms Work Phone: Podiatry Comment on above: Hallux valgus of rig ht foot (Primary Dx); Ulcer of toe of right foot, limited to breakdown of skin (HCC) Start: 01-07-2022 End: 01-07-[address] Donnell Dooley Work Phone: [facility] Start: 12-22-2021 End: 12-22-2021 Patient encounter procedure Danika Helms Work Phone: Podiatry Comment on above: Callus of foot (Prim claudine Dx); Hallux valgus of right foot; Onychomycosis; Pain in toe of left foot Start: 12-09-2021 End: 12-09-2021 Patient encounter procedure Donnell Dooley MD Work Phone: [facility] [place] Comment on above: Mild cognitive impai rment (Primary Dx); Encounter for immunization; Meningioma (HCC); Mitral valve insufficiency, unspecified etiology; Pulmonary emphysema, unspecified emphysema type (HCC); Small B-cell lymphoma, unspecified body region (HCC) Start: 11-20-2021 ambulatory No Pcp [facility] [place] Start: 11-06-2021 End: 11-06-2021 Patient encounter procedure Danika Scooter Work Phone: Podiatry Comment on above: Callus of foot (Prim claudine Dx); Hallux valgus of right foot Start: 10-29-2021 Telephone encounter Donnell Dooley MD Work Phone: [facility] [place] Comment on above: Orders Start: 10-23-2021 ambulatory No Pcp (Historical) [facility] [place] Start: 10-09-2021 End: 10-09-2021 Patient encounter procedure Danika Scooter Work Phone: Podiatry Comment on above: Hallux valgus of rig ht foot (Primary Dx); Callus of foot; Onychomycosis Start: 09-22-2021 Telephone encounter Donnell Dooley MD Work Phone: [facility] [place] Comment on above: Patient Update; Medi cation Request Start: 09-16-2021 Telephone encounter Donnell Dooley MD Work Phone: [facility] [place] Comment on above: Results Start: 09-12-2021 End: 09-12-2021 Emergency department patient [facility] Start: 09-11-2021 Telephone encounter Donnell Dooley MD Work Phone: [facility] [place] Comment on above: Low Back Pain (& francisco ateral legs) Start: 09-08-2021 Telephone encounter Donnell Dooley MD Work Phone: [facility] [place] Comment on above: Patient Update; Medi cation Problem Start: 09-05-2021 Telephone encounter Donnell Dooley MD Work Phone: [facility] Comment on above: Insurance Authorizat ion (Rivastigmine patch ) Start: 09-04-2021 End: 09-04-2021 Subsequent hospital visit by physician Xr [facility] [place] Work Phone: Radiology Comment on above: Sciatica, right side [M54.31] Start: 09-04-2021 End: 09-04-2021 Patient encounter procedure Donnell Dooley MD Work Phone: [facility] Comment on above: Mild cognitive disor [...] / Non-visit Dr. Jessica Dooley Work Phone: [facility] Start: 08-04-2021 End: 08-04-2021 ambulatory Jane Mcmillan MD Work Phone: Hematology/Oncology Comment on above: History of breast ca ncer (Primary Dx); Small B-cell lymphoma, unspecified body region (HCC); Meningioma (HCC) Start: 08-04-2021 End: 08-04-2021 Patient encounter procedure Jane Mcmillan MD Work Phone: [facility] Start: 07-03-2021 End: 07-03-[address] Don[facility] Start: 06-04-2021 End: 06-04-2021 Patient encounter procedure Donnell Dooley MD Work Phone: [facility] Comment on above: Hypokalemia (Primary Dx); Mild cognitive impairment; Meningioma (HCC); Pulmonary emphysema, unspecified emphysema type (HCC); Personal history of CLL (chronic lymphocytic leukemia) Start: 05-29-2021 End: 05-29-[address] Donnell Dooley Work Phone: [facility] Start: 05-26-2021 End: 05-26-2021 Subsequent hospital visit by physician Mri Radio [facility] (I-Stat/1.5t) Work Phone: Radiology Comment on above: Brain mass [G93.89] Start: 05-26-2021 ambulatory Donnell Dooley MD Work Phone: [facility] [place] Comment on above: Madison Lofton, thru sh Start: 05-06-2021 End: 05-06-2021 Subsequent hospital visit by physician Xr [facility] [place] Work Phone: Radiology Comment on above: Mild cognitive impai rment [G31.84] Procedures Date Procedure Procedure Detail Performing Clinician Start: 08-22-[address] Donnell Dooley MD Work Phone: Start: 08-22-2024 X-ray of chest, PA a nd lateral views Dr. Donnell Dooley MD Work Phone: Start: 08-22-2024 SARS-CoV-2, Influenz a & RSV (PCR) Dr. Donnell Dooley MD Work Phone: Start: 08-04-2023 Urnls dip stick/tabl et rgnt auto w/o microscopy Morelia Hewitt OFFSET LITHOGRAPHIC PRESS OPERATOR.CREDIT CORRESPONDENCE CLERK Work Phone: Start: 06-28-2023 Adult depression scr eening assessment Donnell Dooley MD Work Phone: Start: 04-02-2023 Dup-scan xtr veins unilateral/limited study Dallas Calabrese OFFSET LITHOGRAPHIC PRESS OPERATOR.CREDIT CORRESPONDENCE CLERK Work Phone: Start: 11-18-2022 CT angiography of [...] Start: 01-09-2027 Diabetes Screening Diabetes Screenin g [facility] Start: 01-27-2026 Diabetes Screening Diabetes Screenin g [facility] Start: 10-09-2025 DIABETES SCREEN DIABETES SCREEN [facility] Start: 10-09-2025 Diabetes Screening Diabetes Screenin g [facility] Start: 07-09-2025 DIABETES SCREEN DIABETES SCREEN [facility] Start: 06-15-2025 DIABETES SCREEN DIABETES SCREEN [facility] Start: 08-22-2024 Verification routine [facility] Start: 08-22-2024 Admission procedure [facility] Start: 08-22-2024 Hospital admission, emergency, from emergency room, medical nature [facility] Start: 08-22-[address] [facility] Start: 08-22-2024 Respiratory Panel (PCR) Respiratory Panel (PCR) [facility] Start: 08-04-2024 DIABETES SCREEN DIABETES SCREEN [facility] Start: 07-12-2024 End: 07-12-2024 Patient encounter procedure 07/12/2024 1:00 PM EDT Office Visit Family [facility] [address] [place] [address] Donnell Dooley MD [address] [place], [place] [id number] Medicare Wellness [facility] Comment on above: Medicare Wellness Start: 06-27-2024 Anxiety Screening Anxiety Screening [facility] Start: 06-27-2024 Covid-19 Vaccine () Covid-19 Vaccine () [facility] Comment on above: Postponed from 03/02 (Declined at this time) Start: 06-27-2024 Depression Screening Depression Scre ening [facility] Start: 06-05-2024 Covid-19 Vaccine (8 - Moderna risk season) Covid-19 Vaccine (8 - Moderna risk ) [facility] Start: 05-06-2024 DIABETES SCREEN DIABETES SCREEN [facility] Start: 04-05-2024 Annual PCP Team Rider Ticket Worker glenda Disease Visit Annual PCP Team Chronic Disease Visit [facility] Start: 04-02-2024 Annual PCP Team Rider Ticket Worker glenda Disease Visit Annual PCP Team Chronic Disease Visit [facility] Start: 03-21-2024 End: 03-21-2024 Patient encounter procedure 03/21/2024 11:00 AM EST Office Visit Vascul[facility] Surgery [address] [place] [address] Onychomycosis [B35.1] [facility] Comment on above: Onychomycosis [B35.1 ] Start: 02-28-2024 End: 02-28-2024 Patient encounter procedure 02/28/2024 10:45 AM EST Office Visit Podiatry [address] [place] [address] Danika Hemls [address] [address] foot and nail pain Podiatry Comment on above: foot and nail pain Start: 02-23-2024 Advance Directive Discussion Advance Directive Discussion [facility] Start: 01-31-2024 Covid-19 Vaccine ( season) Covid-19 Vaccine () [facility] Start: 01-26-2024 End: 01-26-2024 ambulatory [facility] Comment on above: CBC/LDH* 1 YR OV/LABS EARLY* Start: 01-25-2024 End: 01-25-2024 ambulatory [facility] Comment on above: CBC/LDH* 1 YR OV/LABS EARLY* Start: 01-14-2024 End: 01-14-2024 Patient encounter procedure 01/14/2024 2:20 PM EST Office Visit Family Shanique Andrade [address] [place] [address] Donnell Dooley MD [address] [place] [address] 6 month follow up Family Shanique Andrade Comment on above: 6 month follow up Start: 01-10-2024 End: 01-10-2024 ambulatory 01/10/2024 7:15 AM EST Results Only [facility] [address] [place] [address] [place] [facility] Start: 01-07-2024 End: 01-07-2024 Patient encounter procedure 01/07/2024 10:40 AM EST Office Visit Family Shanique Andrade [address] [place] [address] Donnell Dooley MD [address] [place] [address] 6 month follow up Family Shanique Andrade Comment on above: 6 month follow up Start: 01-06-2024 End: 04-06-2024 CBC W Auto Differential panel - Blood COMPLETE BLOOD COUNT AND DIFFERENTIAL Lab Routine Mixed hyperlipidemia Small B-cell lymphoma, unspecified body region (HCC) Expected: 01/06/2024, Expires: 04/06/2024 [facility] [facility] Work Phone: Comment on above: Expected: 01/06/2024 , Expires: 04/06/2024 Start: 01-06-2024 End: 04-06-2024 Comprehensive metabolic 2000 panel - Serum or Plasma COMPREHENSIVE METABOLIC PANEL Lab Routine Mixed hyperlipidemia Small B-cell lymphoma, unspecified body region (HCC) Expected: 01/06/2024, Expires: 04/06/2024 [facility] Comment on above: Expected: 01/06/2024 , Expires: 04/06/2024 Start: 01-06-2024 End: 04-06-2024 Lipid 1996 panel - Serum or Plasma LIPID PANEL BASIC Lab Routine Mixed hyperlipidemia Small B-cell lymphoma, unspecified body region (HCC) Expected: 01/06/2024, Expires: 04/06/2024 [facility] Comment on above: Expected: 01/06/2024 , Expires: 04/06/2024 Start: 12-24-2023 Annual PCP Team Rider Ticket Worker glenda Disease Visit Annual PCP Team Chronic Disease Visit [facility] Start: 12-24-2023 Covid-19 Vaccine () Covid-19 Vaccine () [facility] Comment on above: Postponed from 10/23 (Declined at this time) Start: 12-24-2023 RSV Vaccine (1 - 1-d ose 60+ series) RSV Vaccine (1 - 1-dose 60+ series) [facility] Comment on above: Postponed from 06/07 (Declined at this time) Start: 10-24-2023 Covid-19 Vaccine ( season) Covid-19 Vaccine () [facility] Start: 10-24-2023 Influenza vaccination Influenza Vacc ine (#1) [facility] Start: 10-06-2023 ANNUAL PCP TEAM BROKERAGE OFFICE MANAGER GLENDA DISEASE VISIT ANNUAL PCP TEAM CHRONIC DISEASE VISIT [facility] Start: 10-06-2023 COVID-19 VACCINE (6 - Moderna risk series) COVID-19 VACCINE (6 - Moderna risk series) [facility] Comment on above: Postponed from 02/03 (Declined at this time) Start: 08-11-2023 End: 08-11-2023 Patient encounter procedure Cat Scan Comment on above: Pelvic pain [R10.2] Start: 08-04-2023 End: 08-04-2023 Patient encounter procedure 08/04/2023 9:00 AM EDT Office Visit [facility] [address] [place], [place] [id number] Morelia Hewitt APRN.CREDIT CORRESPONDENCE CLERK [address] [place], [place] [id number] Pelvic Pain; See nurse Triage note [facility] Comment on above: Pelvic Pain; See evan se Triage note Start: 06-16-2023 ANNUAL PCP TEAM BROKERAGE OFFICE MANAGER GLENDA DISEASE VISIT ANNUAL PCP TEAM CHRONIC DISEASE VISIT [facility] Start: 03-02-2023 Covid-19 Vaccine () Covid-19 Vaccine () [facility] Start: 02-22-2023 Advance Directive Discussion Advance Directive Discussion [facility] Start: 02-22-2023 Depression Assessment Depression Ass essment [facility] Start: 01-27-2023 End: 04-28-2023 CBC W Auto Differential panel - Blood CBC + DIFF Lab Routine Small B-cell lymphoma, unspecified body region (HCC) Expected: 01/27/2023, Expires: 04/28/2023 [facility] Work Phone: Comment on above: Expected: 01/27/2023 , Expires: 04/28/2023 Start: 01-27-2023 End: 04-28-2023 Lactate dehydrogenase [Enzymatic activity/volume] in Serum or Plasma LD LACTATE DEHYDRO Lab Routine Small B-cell lymphoma, unspecified body region (HCC) Expected: 01/27/2023, Expires: 04/28/2023 [facility] Work Phone: Comment on above: Expected: 01/27/2023 , Expires: 04/28/2023 Start: 12-09-2022 ANNUAL PCP TEAM BROKERAGE OFFICE MANAGER GLENDA DISEASE VISIT ANNUAL PCP TEAM CHRONIC DISEASE VISIT [facility] Start: 11-18-[address] [facility] Start: 10-23-2022 Covid-19 Vaccine ( season) Covid-19 Vaccine () [facility] Start: 10-23-2022 Influenza vaccination C [facility] Start: 09-04-2022 [facility] DEPRESSION SCREENING [facility] Start: 09-04-2022 ANNUAL PCP TEAM BROKERAGE OFFICE MANAGER GLENDA DISEASE VISIT ANNUAL PCP TEAM CHRONIC DISEASE VISIT [facility] Start: 06-17-2022 End: 08-17-2022 Basic metabolic 2000 panel - Serum or Plasma BASIC METABOLIC PNL Lab Routine Hypercalcemia Expected: 06/17/2022, Expires: 08/17/2022 [facility] Work Phone: Comment on above: Expected: 06/17/2022 , Expires: 08/17/2022 Start: 06-17-2022 End: 08-17-2022 Calcium.ionized [Moles/volume] in Blood CALCIUM IONIZED BLOOD Lab Routine Hypercalcemia Expected: 06/17/2022, Expires: 08/17/2022 [facility] Work Phone: Comment on above: Expected: 06/17/2022 , Expires: 08/17/2022 Start: 06-15-2022 End: 08-15-2022 25-hydroxyvitamin D3 [Mass/volume] in Serum or Plasma [facility] Work Phone: Comment on above: Expected: 06/15/2022 , Expires: 08/15/2022 Start: 06-15-2022 End: 08-15-2022 Comprehensive metabolic 2000 panel - Serum or Plasma [facility] Work Phone: Comment on above: Expected: 06/15/2022 , Expires: 08/15/2022 Start: 06-15-2022 End: 08-15-2022 LIPID PANEL, NONFASTING [facility] Work Phone: Comment on above: Expected: 06/15/2022 , Expires: 08/15/2022 Start: 06-04-2022 ANNUAL PCP TEAM BROKERAGE OFFICE MANAGER GLENDA DISEASE VISIT ANNUAL PCP TEAM CHRONIC DISEASE VISIT [facility] Start: 05-06-2022 ANNUAL PCP TEAM BROKERAGE OFFICE MANAGER GLENDA DISEASE VISIT ANNUAL PCP TEAM CHRONIC DISEASE VISIT [facility] Start: 02-22-2022 ADVANCE DIRECTIVE DISCUSSION ADVANCE DIRECTIVE DISCUSSION [facility] Start: 02-22-2022 DEPRESSION ASSESSMENT DEPRESSION ASS ESSMENT [facility] Start: 10-23-2021 Influenza vaccination INFLUENZA (#1) [facility] Start: 10-01-2021 HEPATITIS C SCREENING HEPATITIS C [facility] Comment on above: Postponed from 06/07 (Declined at this time) Start: 07-03-2021 Patient referral [facility] Work Phone: Start: 06-10-2021 Adult depression scr eening assessment DEPRESSION SCREENING [facility] Start: 06-04-2021 End: 08-04-2021 POTASSIUM BLD POTASSIUM BLD Lab Routine Hypokalemia Expected: 06/04/2021, Expires: 08/04/2021 [facility] Work Phone: Comment on above: Expected: 06/04/2021 , Expires: 08/04/2021 Start: 06-04-2021 End: 08-04-2021 Thyrotropin [Units/volume] in Serum or Plasma TSH BLD Lab Routine Hypokalemia Mild cognitive impairment Expected: 06/04/2021, Expires: 08/04/2021 [facility] Work Phone: Comment on above: Expected: 06/04/2021 , Expires: 08/04/2021 Start: 02-22-2021 ADVANCE DIRECTIVE DISCUSSION ADVANCE DIRECTIVE DISCUSSION [facility] Start: 02-22-2021 DEPRESSION ASSESSMENT DEPRESSION ASS ESSMENT [facility] Start: 10-01-2020 COVID-19 VACCINE (3 - Booster for Moderna series) COVID-19 VACCINE (3 - Booster for Moderna series) [facility] Start: 05-29-2020 COVID-19 VACCINE (3 - Moderna risk series) COVID-19 VACCINE (3 - Moderna risk series) [facility] Start: 11-01-2017 End: 11-01-2017 Appointment Appointment [facility] Work Phone: Start: 10-22-2016 End: 10-22-2016 Appointment Appointment [facility] Work Phone: Start: 10-22-2016 End: 10-23-2016 Echocardiography Echocardiogram (complete) [facility] Work Phone: Start: 10-22-2016 End: 10-22-2016 Follow Up Appt 1 year Follow Up Appt 1 year [facility] Work Phone: Start: 10-22-2016 End: 10-22-2016 PFM PFM [facility] Work Phone: Start: 2002 RSV Vaccine (1 - 1-d ose 60+ series) RSV Vaccine (1 - 1-dose 60+ series) [facility] Start: 1961 Urine microalbumin profile DTAP,TDAP ,TD (1 - Tdap) [facility] Bacteria identified in Urine by Culture URINE CULTURE Microbiology Routine Pelvic pain 08/04/2023 9:44 AM EDT [facility] End: 09-02-2024 CT Abdomen and Pelvis WO contrast CT ABD/PEL WO IVCON Radiology Routine Pelvic pain 1 Occurrences starting 08/04/2023 until 09/02/2024 [facility] Work Phone: Comment on above: 1 Occurrences starti ng 08/04/2023 until 09/02/2024 CT Abdomen and Pelvi s WO contrast CT ABD/PEL WO IVCON Radiology Routine Pelvic pain 08/11/2023 3:50 PM EDT [facility] Work Phone: Magnesium measurement [facility] Patient [facility] Work Phone: Patient referral [facility] Work Phone: [facility] spine lumbosac ral 2/3 views XR LUMBAR GENERAL 3V AP/LAT/L5-S1 Radiology Routine Sciatica, right side 09/04/2021 4:53 PM EDT [facility] Work Phone: End: 12-16-2023 Radiologic exam chest 2 views XR CHEST 2V FRONTAL/LAT Radiology Routine Chest pain, unspecified type 1 Occurrences starting 11/16/2022 until 12/16/2023 [facility] Work Phone: Comment on above: 1 Occurrences starti ng 11/16/2022 until 12/16/2023 Respiratory pathogen s DNA and RNA panel - Respiratory specimen by AIME with probe detection [facility] End: 09-15-2024 US Kidney - bilateral and Urinary bladder US KIDNEY/BLADDER Radiology Routine Urinary frequency 1 Occurrences starting 08/17/2023 until 09/15/2024 [facility] Work Phone: Comment on above: 1 Occurrences starti ng 08/17/2023 until 09/15/2024 End: 04-02-2024 US Lower extremity vein US LEG VEIN DVT UNL [facility] Vascular Lab STAT Cellulitis of skin Left ankle swelling Discoloration of skin of lower leg Acute left ankle pain Blister of left lower extremity, initial encounter Localized edema 1 Occurrences starting 04/02/2023 until 04/02/2024 [facility] Work Phone: Comment on above: 1 Occurrences starti ng 04/02/2023 until 04/02/2024 End: 02-27-2025 US.doppler Extremity arteries - bilateral for physiologic artery study PVR ANK PRESS [facility]ANC[facility]CO [facility] Vascular Lab Routine Onychomycosis Diminished pulses in lower extremity 1 Occurrences starting 02/28/2024 until 02/27/2025 [facility] Work Phone: Comment on above: 1 Occurrences starti ng 02/28/2024 until 02/27/2025 End: 11-05-2023 XR FOOT GENERAL 3V AP/LAT/OBL RIGHT XR FOOT GENERAL 3V AP/LAT/OBL RIGHT Radiology Routine Callus of foot 1 Occurrences starting 10/06/2022 until 11/05/2023 [facility] Work Phone: Comment on above: 1 Occurrences starti ng 10/06/2022 until 11/05/2023 XR FOOT GENERAL 3V AP/LAT/OBL RIGHT XR FOOT GENERAL 3V AP/LAT/OBL RIGHT Radiology Routine Callus of foot 10/06/2022 2:35 PM EDT [facility] Work Phone: [facility] Immunizations Immunization Date Immunization Notes Care Provider Yury baldwin 12-06-2023 COVID-19 vaccine, unspecified formulation Donnell Dooley MD Work Phone: [facility] 12-06-2023 influenza virus vacc ine, unspecified formulation Donnell Dooley MD Work Phone: [facility] 02-09-2023 respiratory syncytia l virus (RSV) vaccine, unspecified formulation Donnell Dooley MD Work Phone: [facility] 01-05-2023 COVID-19 vaccine, ag e 12+ yr, season (Zafu) Margarito Shields MD Work Phone: [facility] 12-10-2022 influenza, high dose seasonal, preservative-free Donnell Dooley MD Work Phone: [facility] 10-19-2023 influenza virus vacc ine, unspecified formulation Donnell Dooley MD Work Phone: [facility] 12-09-2021 COVID-19 booster vaccine, age 12+ yr, bivalent (PFIZER-English [facility]ass [place]) Donnell Dooley MD Work Phone: [facility] 12-09-2021 influenza, high-dose , quadrivalent vaccine (FLUZONE HIGH DOSE QUADRIVALENT) Donnell Dooley MD Work Phone: [facility] 12-09-2021 influenza virus vacc ine, unspecified formulation Donnell Dooley MD Work Phone: [facility] 07-22-2021 COVID-19 original vaccine, full dose, monovalent (MODERNA) Donnell Dooley MD Work Phone: [facility] 01-06-2021 COVID-19 original vaccine, full dose, monovalent (MODERNA) Donnell Dooley MD Work Phone: [facility] 12-19-2020 influenza, high dose seasonal, preservative-free Donnell Dooley MD Work Phone: [facility] 11-13-2020 zoster vaccine recombinant Donnell Dooley MD Work Phone: [facility] 08-05-2020 zoster vaccine recombinant Donnell Dooley MD Work Phone: [facility] 08-05-2020 zoster vaccine, live Donnell Dooley MD Work Phone: [facility] 05-01-2020 COVID-19 vaccine, fu ll dose (MODERNA) Donnell Dooley MD Work Phone: [facility] 04-04-2020 COVID-19 vaccine, fu ll dose (MODERNA) Donnell Dooley MD Work Phone: [facility] 11-25-2019 influenza, high-dose , quadrivalent vaccine (FLUZONE HIGH DOSE QUADRIVALENT) Donnell Dooley MD Work Phone: [facility] Work Phone: 11-29-2017 influenza, injectabl e, quadrivalent, preservative free Dr. Donnell Dooley Work Phone: [facility] 11-29-2017 influenza, seasonal, injectable Dr. Donnell Dooley Work Phone: [facility] 11-29-2017 influenza, seasonal, injectable, preservative free Donnell Dooley MD Work Phone: [facility] 11-20-2017 influenza, high dose seasonal, preservative-free Donnell Dooley MD Work Phone: [facility] 11-23-2016 influenza, high dose seasonal, preservative-free Donnell Dooley MD Work Phone: [facility] 12-07-2015 influenza, high dose seasonal, preservative-free Donnell Dooley MD Work Phone: [facility] Work Phone: 11-23-[address] Donnell Dooley Work Phone: [facility] 11-23-2015 influenza, seasonal, injectable, preservative free Donnell Dooley MD Work Phone: [facility] 03-03-2014 pneumococcal conjuga te vaccine, 13 valent Donnell Dooley MD Work Phone: [facility] Work Phone: 12-24-2007 pneumococcal polysaccharide vaccine, 23 valent Donnell Dooley MD Work Phone: [facility] Work Phone: Payers Date Payer Category Payer Self-pay [id number] 2008 Private Health Insurance [facility] [id number] 2008 Unknown [employer]IC[employer] SUPPLEMENT [id number] 2008-Present [phone] [id number] [employer] [place] [id number] Indemnity [id number] 2008 Unknown [id number] 2008 Unknown [employer]IC[employer] SUPPLEMENT [id number] 2008-Present [phone] 3300 [employer] [place] [id number] Indemnity [id number] 2008 Medicare [id number] 2007 Medicare MEDICARE MEDICAR E A AND B [id number] 2007-Present [phone] [facility] [address] [place] [address] Medicare [id number] 2007 Medicare [id number] 2007 Medicare [id number] Unknown [id number] Unknown [id number] Unknown [id number] Unknown [id number] Unknown [id number] Unknown [id number] Social History Date Type Detail Facility Start: 03-03-2016 End: 08-22-2024 Tobacco smoking status NHIS Ex-smoker [facility] Start: 02-22-1969 End: 02-22-1999 History of tobacco use Current smoker [facility] Start: 02-22-1969 End: 02-22-1999 History of tobacco use Cigarette Smoker [facility] Start: 03-03-2016 End: 10-29-2022 Cigarettes smoked current (pack per day) - Reported 1 [facility] Work Phone: Start: 03-03-2016 End: 01-14-2024 Tobacco use and exposure Smokeless tobacco non-user [facility] Start: 05-06-2021 End: 02-28-2024 Alcohol intake Current drinker of alcohol (finding) [facility] Start: 06-10-2020 History SDOH Alcohol Frequency 4 [facility] Start: 06-10-2020 History SDOH Alcohol Std Drinks 1 [facility] Start: 03-03-2016 History SDOH Alcohol Comment With dinner. [facility] Start: 06-10-2020 History SDOH Social Connections Phone 3 [facility] Start: 06-10-2020 History SDOH Social Connections [employer] 98 [facility] Start: 06-10-2020 History SDOH Social Connections Meetings 2 [facility] Start: 06-10-2020 History SDOH Physical Activity DPW 7 [facility] Start: 06-10-2020 Education 21 [facility] Start: 09-10-2016 End: 12-09-2021 Tobacco Comment Father smoked in childhood home. [facility] Start: 1940 Sex Assigned At Not on file [facility] Start: 04-26-2021 End: 12-22-2021 Exposure to SARS-CoV-2 (event) Not sure [facility] Start: 09-12-2021 End: 12-04-2022 Tobacco smoking status NJIS Unknown if ever smoked [facility] Start: 04-19-2019 Occasional [facility] Start: 04-19-2019 None [facility] Start: 04-19-2019 Spouse/ Significant Other [facility] Start: 04-20-2019 Non-smoker [facility] Start: 1940 Sex Assigned At Female [facility] Start: 09-13-2021 End: 09-23-2021 Exposure to SARS-CoV-2 (event) Unable to assess [facility] Work Phone: Start: 07-23-2022 End: 10-29-2022 Tobacco use panel [facility] Work Phone: Adult Depression Screening Assessment 0 [facility] Work Phone: Do you belong to any clubs or organizations such as religion groups, unions, fraternal or athletic groups, or school groups? Yes [facility] Are you now , , , , never or living with a partner? [facility] How often to you hav e a drink containing alcohol? 2-3 time sa week [facility] How many standard dr inks containing alcohol do you have on a typical day? 1 or 2 [facility] How often do you hav e 6 or more drinks on 1 occasion? Never [facility] How hard is it for y ou to pay for the very basics like food, housing, medical care, and heating Not very hard [facility] Do you feel stress - tense, restless, nervous, or anxious, or unable to sleep at night because your mind is troubled all the time - these days [OSQ] Rather much [facility] (I/We) worried wheth er (my/our) food would run out before (I/we) got money to buy more. Never true [facility] In the past 12 month s, was there a time when you were not able to pay the mortgage or rent on time? No [facility] How often to you hav e a drink containing alcohol? Monthly or less [facility] Do you feel stress - tense, restless, nervous, or anxious, or unable to sleep at night because your mind is troubled all the time - these days [OSQ] Not at all [facility] Are you now , , , , never or living with a partner? [facility] Mental Status Date Assessment Result Facility 12-04-2022 Cognitive function Level Of Cons ciousness Awake;Alert;Appropriate;Follow s Commands [facility] Work Phone: 11-18-2022 Cognitive function Awake;Alert;A ppropriate;Follow s Commands [facility] Work Phone: 04-15-2022 Cognitive function Level Of Cons ciousness Awake;Alert;Appropriate [facility] Work Phone: Clinical Notes 05-12-2017 to 08-22-2024 Note Date & Type Note Facility 08-22-2024 Evaluation note Diagnosis Onset Date Resolution Essential hypertension acute 2024 8:07pm Respiratory insufficiency acute August 22, 2024 8:07pm COPD exacerbation chronic August 8:07pm [facility] Work Phone: 1(190) 282-386007-01-2025 Radiology Diagnostic study note [facility] [address] [place] [address] Chest PA and Lateral MR#: [id number] Acct: [id number] Name: MADISON LOFTON MILY Rep #: [id number] : 1940 F 84 From: Stephani Espino MD PCP: Dr. Donnell Dooley MD Status: REG E R Study:Chest PA and Lateral Date of Exam: 08/22/24 Exam# [id number] Ordering Dr: Juno Garza DO PROCEDURE: CHEST [...] Hyperinflated lungs may reflect COPD. Reading Location: [id number] CC: Dr. Juno Cruz DO; Dr. Donnell Dooley MD ~ Sport Psychologist: Signed [facility]05-21-2025 NoteHNO ID: [id number] Author: DONNELL DOOLEY MD Service: ? Author [...] Otolaryngology) Margarito Shields MD (Hematology/Oncology) Morelia Hewitt APRN.CREDIT CORRESPONDENCE CLERK as Trustee Of Estate (Family Medicine) Amber Griffith APRN.REYNALDO as Trustee Of Estate (Family Medicine) Dr Helms, podiatry. Now seeing podiatry at facility. Dr Antunez, pulmonary. Dr Diallo, optho. [facility]-not followed up. Defers follow up. [...] practice. J Neurol. 2023 Jef . doi: 10.1007/[id number]. Epub ahead of print. PMID: 52103958. Cognitive screening reviewed and Patient has known [...] ICD10: J96.11 - stabl (more content not included)...[facility]05-07-2025 Note HNO ID: [id number] Author: HANNAH MILLS MA Service: ? Author Type: Campaign Assistant Type: Progress Notes Filed: 06/28/2024 12:19 Note [...] Updated appointment notes HCC related Navigation Signature: Hannha Mills MA June 28, 2024 12:10 [facility]05-07-2025 History of Present illness Narrative* Hannah Mills [...] 28, 2024 12:10 PM [facility] NotePatient Outreach (NETNAV) MADISON LOFTON ([id number]) 1940 F Date Time Provider Department 06/28/24 [...] Navigation Outreach [[id number]] Cmt: TRA BRODYSnehal [facility] Prescriptions as of 06/28/2024 - fluticasone propion-salmeterol [...] 01/14/2024 Encounter Status:Closed by HANNAH MILLS on 06/28/24[facility]03-20-2025 NoteHNO ID: [id number] Author: HANNAH MILLS MA Service: ? Author Type: Campaign Assistant Type: Progress Notes Filed: 05/11/2024 15:36 Note [...] Hannah Mills MA May 11, 2024 1:[facility] History of Present illness Narrative* Hannah Mills [...] 11, 2024 1:33 PM documented in [facility]25 NotePatient Outreach (NETNAV) MADISON LOFTON ([id number]) 1940 F Date Time Provider Department 05/11/24 [...] 01/14/2024 Encounter Status:Closed by HANNAH MILLS on 05/11/24[facility]03-03-2025 Telephone encounter Note* Telephone Encounter - [...] p.o. fluid intake. All the best Reena [facility] Work Phone: 1(566) 787-975603-03-2025 Miscellaneous Notes* Telephone Encounter - Reena Arango [...] All the best Reena documented [facility]01-[facility]25 Telephone encounter Note * Telephone Encounter - Jessica Middleton LPN - 03/22/2024 9:55 AM EST Sandy with [facility] called to request ed list and dx list for pt. Pt was identified withname and date of . Done. Jessica Middleton LPN [facility]01-29-2025 Miscellaneous Notes* Telephone Encounter - Jessica Middleton LPN - 03/22/2024 9:55 AM EST Sandy with [facility] called to request ed list and dx list for pt. Pt was identified withname and date of . Done. Jessica Middleton LPN documented [facility] Telephone encounter Note * Telephone Encounter - [...] prolongation on last ECG. Renal function ok. [facility]01-16-2025 Miscellaneous Notes* Telephone Encounter - Amber Griffith [...] - 03/09/2024 4:51 PM EST Ronda from [place] calling with results to chest x ray. Results show Slight left lower lobe infiltrate (Left Basilar infiltrate without any mass or fusion). Patient still has cough and other symptoms without fever. Pharmacy is [facility]. Please review and advise, Alejandrina Cooper RN documented in [facility]Western [facility]01-[facility]25 Telephone encounter Note * Telephone Encounter - Alejandrina Cooper RN - 03/09/2024 4:51 PM EST Ronda from [place] calling with results to chest x ray. Results show Slight left lower lobe infiltrate (Left Basilar infiltrate without any mass or fusion). Patient still has cough and other symptoms without fever. Pharmacy is [facility]. Please review and advise, Alejandrina Cooper RN [facility]01-16-2025 Telephone encounter Note* Telephone Encounter - Skye [...] made aware of this. Skye Payton MA [facility] [facility] Miscellaneous Notes* Telephone Encounter - Skye Payton [...] 03/09/2024 9:13 AM EST Ronda nurse with [facility] calls with patient update. Patient has [...] do one there. Call back number is [phone]. Guera Roy RN documented in [facility] encounterWestern [facility] Telephone encounter Note * Telephone Encounter - Donnell Dooley MD - 03/09/2024 11:17 AM EST Ok for chest xray Can use robitussin dm 5 cc po q 8 hours prn cough [facility]01-16-2025 Telephone encounter Note* Telephone Encounter - Guera Roy RN - 03/09/2024 9:13 AM EST Ronda nurse with [facility] calls with patient update. Patient has [...] do one there. Call back number is [phone]. Guera Roy RN [facility]01-06-2025 NoteHNO ID: [id number] Author: DANIKA HELMS, ? Service: ? Author [...] shellfish into diet. Bacitracin Itching Latex Rash Avon Swelling PAST SURGICAL HISTORY Procedure Laterality Date [...] bronchitis.) Father other (Other) Brother Parkinson's vs Lannon's. age 61. other (Other) Other Meningioma: multiple [...] polyuria, polydipsia and g (more content not included)...[facility]01-06-2025 History of Present illness Narrative* Danika [...] shellfish into diet. Bacitracin Itching Latex Rash Avon Swelling PAST SURGICAL HISTORY Procedure Laterality Date [...] bronchitis.) Father other (Other) Brother Parkinson's vs Lannon's. age 61. other (Other) Other Meningioma: multiple [...] Helms DPM Podiatry [address] [facility] [address] Dept: [phone] Dept * Sherron Warren RN - 02/28/2024 10:07 AM EST [facility] ROOMING INTAKE FLOWSHEET DATA Pain Pain Level: 8 Pain Location: Toe Description: Throbbing Duration Units: Months Frequency: Continuous Intervention/Comfort measure: Relaxation, Reposition Patient presents with: Right Foot - Established Patient, Follow Up, Pain Patient presents for right 5th toe pain. States that it has been bothering her for the last few months. Develops callus to 1st and 5th toe. [facility] 10/29/22 documented in this encounterWestern Reserve Hospital01-06-2025 NoteHNO ID: [id number] Author: SHERRON WARREN RN Service: ? Author Type: Registered Nurse Type: Progress Notes Filed: 02/28/2024 11:08 Note Text: [facility] ROOMING INTAKE FLOWSHEET DATA Pain Pain Level: 8 Pain Location: Toe Description: Throbbing Duration Units: Months Frequency: Continuous Intervention/Comfort measure: Relaxation, Reposition Patient presents with: Right Foot - Established Patient, Follow Up, Pain Patient presents for right 5th toe pain. States that it has been bothering her for the last few months. Develops callus to 1st and 5th toe. [facility] 10/29/22[facility]12-27-[facility] Telephone encounter Note* Telephone Encounter - An Barker MA - 02/18/2024 5:02 PM EST Tanika, nurse, notified that antibiotic was called in and to obtain urine culture with sensitivity. She verbalizes understanding and is agreeable. An Barker MA February 18, 2024 5:03 PM [facility]12-27-2024 Miscellaneous Notes* Telephone Encounter - An Barker [...] - 02/18/2024 4:35 PM EST Tanika from [place] calls and states that patient is complaining of lower abdomen pain. Patient completed antibiotics on 02/12 for UTI. Nursing did urine dip on patient, patient was positive for WBCs, Nitrites, Protein, and Ketones. Tanika is faxing over results to provider. [facility]. Please review and advise, Alejandrina Cooper RN documented in this encounterWestern Reserve Hospital12-27-2024 Telephone encounter Note * Telephone Encounter - Donnell Dooley MD - 02/18/2024 4:48 PM EST Have them send for c and s. Rx sent [facility]12-27-2024 Telephone encounter Note* Telephone Encounter - Alejandrina Cooper RN - 02/18/2024 4:35 PM EST Tanika from [place] calls and states that patient is complaining of lower abdomen pain. Patient completed antibiotics on 02/12 for UTI. Nursing did urine dip on patient, patient was positive for WBCs, Nitrites, Protein, and Ketones. Tanika is faxing over results to provider. [facility]. Please review and advise, Alejandrina Cooper RN [facility]12-20-2024 Telephone encounter Note* Telephone Encounter - Remberto Bob RN - 02/11/2024 12:08 PM EST Johanna returned call and given provider's message below with verbalized understanding. Johanna agreeable. [facility]12-20-2024 Miscellaneous Notes* Telephone Encounter - Remberto Bob [...] 02/07/2024 7:57 PM EST See sheet from [facility] documented in this encounterWestern Reserve Hospital12-20-2024 Telephone encounter Note * Telephone Encounter - Jennifer Holm LPN - 02/11/2024 11:38 AM EST Left message for [place] to call and speak with triage. I did pull culture report from [facility] so we are sure the ATB she is on should help. If not helping that is why she needs ER. [facility]12-20-2024 Telephone encounter Note* Telephone Encounter - Donnell Dooley MD - 02/11/2024 11:05 AM EST If still confused, to ER [facility]12-20-2024 Telephone encounter Note* Telephone Encounter - Alejandrina Cooper RN - 02/11/2024 11:03 AM EST Patient's daughter calls and states that patient has been on antibiotic for UTI for a couple of days. Daughter reports that patient is still out of it. Daughter asking if there is anything else that can be prescribed? Please review and advise, Alejandrina Cooper RN [facility]12-16-2024 Telephone encounter Note* Telephone Encounter - Donnell Dooley MD - 02/07/2024 7:57 PM EST See sheet from [facility]11-22-2024 NoteHNO ID: [id number] Author: DONNELL DOOLEY MD Service: ? Author [...] Abs Lymph 1.00 - 4.00 k/uL 3.51 Bienville% % 7.6 Abs [place]ien[place] <0.87 k/uL 0.86 Eosin% % 3.7 Abs [...] shellfish into diet. Bacitracin Itching Latex Rash Avon Swelling PAST MEDICAL HISTORY Diagnosis Date Breast cancer (HCC (more content not included)...[facility] 01-14-2024 History of Present illness Narrative* [...] Abs Lymph 1.00 - 4.00 k/uL 3.51 Bienville% % 7.6 Abs [place]ien[place] <0.87 k/uL 0.86 Eosin% % 3.7 Abs [...] shellfish into diet. Bacitracin Itching Latex Rash Avon Swelling PAST MEDICAL HISTORY Diagnosis Date Breast [...] bronchitis.) Father other (Other) Brother Parkinson's vs Lannon's. age 61. other (Other) Other Meningioma: multiple [...] age. Donnell Dooley MD documented in this encounterWestern Reserve Hospital11-14-2024 Telephone encounter Note * Telephone Encounter - Jessica Middleton LPN - 01/06/2024 2:01 PM EST Detailed VM left on Johanna's identified voicemail of information below. Jessica Middleton LPN [facility]11-14-2024 Miscellaneous Notes* Telephone Encounter - Jessica Middleton [...] the loss of Andre. documented in this encounterWestern Reserve Hospital11-14-2024 Telephone encounter Note * Telephone Encounter - Donnell Dooley MD - 01/06/2024 1:48 PM EST Orders placed [facility]11-14-2024 Telephone encounter Note* Telephone Encounter - Jennifer Holm LPN - 01/06/2024 12:29 PM EST Rescheduled visit from this week till next. Johanna asking if there are any labs that should be done prior to visit? She doesn't have any major concerns. She has noticed a little more decline in memorybut she does relate this a little to the loss of Andre. [facility]08-26-2024 Telephone encounter Note* Telephone Encounter - Kaleigh Simmons RN - 10/18/2023 4:02 PM EDT Outside Sales Representative Insurance Haleigh at [facility] returning call to [facility] patient is improving since shebegan the Bactrim, as ordered by Dr. Gomez. Kaleigh Simmons RN [facility]08-26-2024 Miscellaneous Notes* Telephone Encounter - Kaleigh Simmons RN - 10/18/2023 4:02 PM EDT Outside Sales Representative Insurance Haleigh at [facility] returning call to [facility] patient is improving since shebegan the Bactrim, as ordered by Dr. Gomez. Kaleigh Simmons RN * Telephone Encounter - Thao Bowen LPN - 10/18/2023 1:36 PM EDT Message left on community coordinator Rusty svitlana , instructed to call office [...] - 10/16/2023 11:18 AM EDT Nurse from [facility] called to state that the urine culture report showed that one ofthe bacteria is resistant to macrobid. She is faxing the report for review. documented in this encounterWestern Reserve Hospital08-26-2024 Telephone encounter Note * Telephone Encounter - Thao Bowen LPN - 10/18/2023 1:36 PM EDT Message left on community coordinator Rusty ROBERTS, instructed to call office and ask for a triage nurse for update. Thao Bowen LPN [facility]08-25-2024 Telephone encounter Note* Telephone Encounter - Isabel Vegas RN - 10/17/2023 10:08 AM EDT Caregiver calling to verify new antibiotic and pharmacy information. Spoke with MEG Andrade from [facility]. Verified medication and pharmacy info in [facility]. Caregiver denies anynew or worsening symptoms of which a provider is not aware:Yes . [facility]08-25-2024 Miscellaneous Notes* Telephone Encounter - Isabel Vegas RN - 10/17/2023 10:08 AM EDT Caregiver calling to verify new antibiotic and pharmacy information. Spoke with MEG Andrade from [facility]. Verified medication and pharmacy info in [facility]. Caregiver denies anynew or worsening symptoms of which a provider is not aware:Yes . documented in this encounterWestern Reserve Hospital08-25-2024 Telephone encounter Note * Telephone Encounter - [...] medication was sent to the [facility] in [place]. Daughter is advising that the medication should have been sent to [facility] because the patient is a resident at [facility]. On file, KEVIN sees [facility], daughter advising that this is incorrect. Daughter unsure of the contact information for [facility]. Daughter will have nurse from [facility] call back with the contact information for [facility] so it is ensured medication goes to the correct pharmacy. [facility]08-25-20[facility] Miscellaneous Notes* Telephone Encounter - Roger Boateng [...] medication was sent to the [facility] in [place]. Daughter is advising that the medication should have been sent to [facility] because the patient is a resident at [facility]. On file, KEVIN sees [facility], daughter advising that this is incorrect. Daughter unsure of the contact information for [facility]. Daughter will have nurse from [facility] call back with the contact information for [facility] so it is ensured medication goes to the correct pharmacy. documented in this encounterWestern Reserve Hospital08-25-2024 Telephone encounter Note * Telephone Encounter - Desi Gomez MD - 10/17/2023 7:35 AM EDT Rx sent for Bactrim DS BID x 7 days. Stop Macrobid. Go to ER with worsening symptoms of fever/chills, confusion, nausea, vomiting, abdominal pain, flank pain. Attempted to call daughter with this message without answer. LM to call office back regarding this. [facility]08-[facility]24 Telephone encounter Note* Telephone Encounter - Tammy North LPN - 10/16/2023 11:41 AM EDT Culture showed that Proteus mirabilie is susceptible to: ampicillin ampicillin.sulbactam cefazolin cefepime ceftriaxone ciprofloxacin ertapanem gentamicin levofloxacin piperacillin/tazobactam tobramycin trimethoprim/sulfametho See scanned documents [facility]08-24-2024 Telephone encounter Note* Telephone Encounter - Tammy North LPN - 10/16/2023 11:18 AM EDT Nurse from [facility] called to state that the urine culture report showed that one ofthe bacteria is resistant to macrobid. She is faxing the report for review. [facility]08-21-2024 Telephone encounter Note* Telephone Encounter - Jennifer Holm LPN - 10/13/2023 5:23 PM EDT Orders were given to Haleigh via phone. [facility]08-21-2024 Miscellaneous Notes* Telephone Encounter - Jennifer Holm LPN - 10/13/2023 5:23 PM EDT Orders were given to Haleigh via phone. * Telephone Encounter - Morelia Hewitt APRN.CNP - 10/13/2023 5:18 PM EDT Start macrobid 100 mg twice daily for 10 days. Send urine for culture. Morelia Hewitt APRN.CREDIT CORRESPONDENCE CLERK * Telephone Encounter - Jennifer Holm LPN - 10/13/2023 5:11 PM EDT UA showed 70+ WBC +nitrite no blood * Telephone Encounter - Kaleigh Simmons RN - 10/13/2023 4:48 PM EDT Nurse Haleigh calling from [facility] regarding patient. Reports they have sent a fax over to PCP office indicating pt has had recent abnormal urine dip along with confusion, increased frequency and urgency. Asking provider if they wish to order a urine culture and/or medication? Please either respond back on their fax, and fax to [phone] or call Nurse at [phone] withreply. Thank you. documented in this encounterWestern Reserve Hospital08-21-2024 Telephone encounter Note * Telephone Encounter - Morelia Hewitt APRN.CNP - 10/13/2023 5:18 PM EDT Start macrobid 100 mg twice daily for 10 days. Send urine for culture. Morelia Hewitt APRN.CREDIT CORRESPONDENCE CLERK [facility] Work Phone: 1(894) 418-385408-21-2024 Telephone encounter Note* Telephone Encounter - Jennifer Holm LPN - 10/13/2023 5:11 PM EDT UA showed 70+ WBC +nitrite no blood [facility]08-21-2024 Telephone encounter Note* Telephone Encounter - Kaleigh Simmons RN - 10/13/2023 4:48 PM EDT Nurse Ricardo calling from [facility] regarding patient. Reports they have sent a fax over to PCP office indicating pt has had recent abnormal urine dip along with confusion, increased frequency and urgency. Asking provider if they wish to order a urine culture and/or medication? Please either respond back on their fax, and fax to [phone] or call Nurse at [phone] withreply. Thank you. [facility]06-25-2024 Telephone encounter Note* Telephone Encounter - Alejandrina Cooper RN - 08/17/2023 11:32 AM EDT Johanna Calls back and notified of below. Johanna voices understanding. Johanna transferred to airline lounge receptionist to get testing scheduled. Alejandrina Cooper RN [facility]06-25-2024 Miscellaneous Notes* Telephone Encounter - Alejandrina Cooper RN - 08/17/2023 11:32 AM EDT Johanna Calls back and notified of below. Johanna voices understanding. Johanna transferred to airline lounge receptionist to get testing scheduled. Alejandrina Cooper, RN [...] went over results, notes from Morelia Hewitt JET BLADE POLISHER, daughter said mother is voiding more often [...] completely when she urinates? documented in this encounterWestern Reserve Hospital06-25-2024 Telephone encounter Note * Telephone Encounter - Ruby Delgado OCCA - 08/17/2023 11:18 AM EDT TC no answer. Left VM to return call.ANDERS Neff [facility]06-25-2024 Telephone encounter Note* Telephone Encounter - Morelia Hewitt APRN.CNP - 08/17/2023 10:22 AM EDT Lets have her get an ultrasound of the bladder to r/o urinary retention. The order is in. Morelia Hewitt APRN.REYNALDO [facility]06-25-2024 Telephone encounter Note* Telephone Encounter - Jennifer Conrad LPN - 08/17/2023 10:06 AM EDT Patient daughter Johanna returned call and went over results, notes from Morelia Hewitt J[employer] BLADE POLISHER, daughter said mother is voiding more often may not be getting empty. [facility]06-25-2024 Telephone encounter Note* Telephone Encounter - Parish Correia LPN - 08/17/2023 9:39 AM EDT Phoned daughter, Johanna. LM to return call to office. Parish Correia LPN [facility]06-24-2024 Telephone encounter Note* Telephone Encounter - Morelia [...] emptying her bladder completely when she urinates? [facility]06-22-2024 NoteHNO ID: [id number] Author: SAV MEJÍA APRN.CREDIT CORRESPONDENCE CLERK Service: ? Author Type: Nurse Practitioner Type: [...] Codeine, Shellfish Containing Products, Bacitracin, Latex, and Avon MEDICATIONS aspirin, enteric coated (ASPIRIN, ENTERIC COATED) [...] bronchitis.) Father other (Other) Brother Parkinson's vs Lannon's. age 61. other (Other) Other Meningioma: multiple [...] abdominal pain, diarrhea, na (more content not included)...[facility]06-22-2024 History of Present illness Narrative* Sav Mejía, RADHA.CREDIT CORRESPONDENCE CLERK - 08/14/2023 1:54 PM EDT Subjective HPI [...] Codeine, Shellfish Containing Products, Bacitracin, Latex, and Avon MEDICATIONS aspirin, enteric coated (ASPIRIN, ENTERIC COATED) [...] bronchitis.) Father other (Other) Brother Parkinson's vs Lannon's. age 61. other (Other) Other Meningioma: multiple [...] care. Sav Mejía APRN.REYNALDO documented in this encounterWestern Reserve Hospital06-19-2024 History of Present illness Narrative* Erin Simon [...] PATIENT PRESENTS WITH AN IMPLANTABLE OR ATTACHED AUTOMOBILE RACER: No RADIOLOGY DEPARTMENT: CT; Exam(s) Completed: Abdomen/Pelvis PERIPHERAL IV DATA: Not applicable SIGNED BY: RT Samantha(Stephanie) August 11, 2023 3:52 PM documented in this encounterWestern Reserve Hospital06-19-2024 NoteHNO ID: [id number] Author: ERIN SIMON RT(R) Service: ? Author Type: Vat House Laborer Type: Progress Notes Filed: 08/11/2023 15:52 Note [...] PATIENT PRESENTS WITH AN IMPLANTABLE OR ATTACHED AUTOMOBILE RACER: No RADIOLOGY DEPARTMENT: CT; Exam(s) Completed: Abdomen/Pelvis PERIPHERAL IV DATA: Not applicable SIGNED BY: RT Samantha(R) August 11, 2023 3:52 [facility]06-12-2024 Instructions* Patient Instructions* Morelia Hewitt APRN.CNP - 08/04/2023 9:[address] To ER with any severe symptoms. documented in this encounterWestern Reserve Hospital06-12-2024 NoteHNO ID: [id number] Author: MORELIA HEWITT APRN.CNP Service: ? Author [...] back). Started a month ago. Lives at [facility]. Refers did a urine sample about a [...] CATARACT SURGERY, COMPLEX COLONOSCOPY W/BIOPSY SINGLE/MULTIPLE 10/12/2016 [facility] DIAG AND/OR THERAP, NOT OB EGD TRANSORAL BIOPSY SINGLE/MULTIPLE 10/12/2016 EGD W/O BRSH SPEC VARICIES INJ N/A HEMORRHOIDECTOMY MASTECTOMY HX Bilateral 1982 PAST SURGICAL HISTORY OF Bronchial artery embolization, left lung PAST SURGICAL HISTORY OF 2002 Lymph node removal on left arm SLING OPER STRES INCONTINENCE TOT ABDOMINL HYSTERECTOMY 1984 ALLERGIES Augmentin [Amoxicillin-Pot Clavulanate], Codeine, Shellfish Containing Products, Bacitracin, Latex, and Avon MEDICATIONS Current Outpatient Medications Medication Sig aspirin, [...] use: No EXAM: BP (more content not included)...[facility]06[facility] History of Present illness Narrative* Morelia Hewitt APRN.CREDIT CORRESPONDENCE CLERK - 08/04/2023 9:26 AM EDT This is [...] back). Started a month ago. Lives at [facility]. Refers did a urine sample about a [...] Codeine, Shellfish Containing Products, Bacitracin, Latex, and Avon MEDICATIONS Current Outpatient Medications Medication Sig aspirin, [...] normal. ASSESSMENT/PLAN: 1. Pelvic pain - ICD9: [id number], ICD10: R10.2 (primary diagnosis) - Work up [...] as needed for worsening/no improvement. Morelia Hewitt APRN.CREDIT CORRESPONDENCE CLERK documented in this encounterWestern Reserve Hospital06-11-2024 Telephone encounter Note * Telephone Encounter - Zoey Lorenzo LPN - 08/03/2023 4:48 PM EDT Pt's daughter Johanna requested letter be sent through . Zoey Lorenzo LPN [facility]06-11-2024 Miscellaneous Notes* Telephone Encounter - Zoey Lorenzo LPN - 08/03/2023 4:48 PM EDT Pt's daughter Johanna requested letter be sent through . Zoey Lorenzo LPN documented in this encounterWestern Reserve Hospital06-11-2024 Telephone encounter Note * Telephone Encounter - Olinda Knight MA - 08/03/2023 1:47 PM EDT Placed call to Johanna. Left message for return call. Mail or fax letter? Olinda Knight MA [facility]06-11-2024 Miscellaneous Notes* Telephone Encounter - Olinda Knight MA - 08/03/2023 1:47 PM EDT Placed call to Johanna. Left message for return call. Mail or fax letter? Olinda Knight MA * Telephone Encounter - Donnell Dooley MD - 08/03/2023 12:09 PM EDT See printed letter. Also wrote husbands documented in this encounterWestern Reserve Hospital06-11-2024 Telephone encounter Note * Telephone Encounter - Alejandrina Cooper RN - 08/03/2023 1:05 PM EDT Patient call in for pelvic pain with urination frequency and burning. Nurse Triage assessment completed with protocol recommending for disposition of See PCP in 24 hours. Patient scheduled with [facility] for tomorrow morning at 9:00 am. Care [...] with Urination Protocols used: Pelvic Pain - [id number] [facility]06-11-2024 Miscellaneous Notes* Telephone Encounter - Alejandrina Cooper [...] with Urination Protocols used: Pelvic Pain - [id number] documented in this encounterWestern Reserve Hospital06-11-2024 Telephone encounter Note * Telephone Encounter - Donnell Dooley MD - 08/03/2023 12:09 PM EDT See printed letter. Also wrote husbands [facility]05-23-2024 Telephone encounter Note* Telephone Encounter - Amber Griffith APRN.CNS - 07/15/2023 5:10 PM EDT [facility] report of urine culture. There are 3 organisms all colonized. Contaminated urine. Treating bacteria is not appropriate. It does not appear that she has a urinarytract infection. [facility]05-23-2024 Miscellaneous Notes* Telephone Encounter - Amber Griffith APRN.CNS - 07/15/2023 5:10 PM EDT [facility] report of urine culture. There are 3 organisms all colonized. Contaminated urine. Treating bacteria is not appropriate. It does not appear that she has a urinarytract infection. documented in this encounterWestern Reserve Hospital05-06-2024 History of Present illness Narrative* Donnell Dooley [...] Abs Lymph 1.00 - 4.00 k/uL 3.68 [place]ienville% % 5.8 Abs [place] <0.87 k/uL 0.68 Eosin% % 2.7 Abs [...] shellfish into diet. Bacitracin Itching Latex Rash Avon Swelling PAST MEDICAL HISTORY Diagnosis Date Breast cancer (HCC) Left mastectomy. Right mastectomy. Bilateral reconstructions. No chemo/XRT. Cervical cancer (HCC) Remote. SOHEIAL/BSO. No chemo or XRT. COPD (chronic obstructive [...] bronchitis.) Father other (Other) Brother Parkinson's vs Lannon's. age 61. other (Other) Other Meningioma: multiple [...] stable. Donnell Dooley MD documented in this encounterWestern Reserve Hospital03-26-2024 Miscellaneous Notes* Telephone Encounter - An Barker MA - 05/18/2023 1:46 PM EDT See other telephone encounter An Barker MA May 18, 2023 1:47 PM * Telephone Encounter - Amber Griffith APRN.ASSOCIATE WEB DEVELOPER - 05/18/2023 12:51 PM EDT Images from the original note were not included. Robyn Wound Nurse from [place] calls and states that she just received the office note visit from today. Robyn states that she does not think that duoderm is working for patient's wound. It is keepingthe wound too moist. Robyn is still recommending a Gricel collagen type dressing, top with alginate (an absorbant gauze) and change daily. Robyn did receive order for this on 05/14/2023 however office visit not does not match this. Please review and advise, Alejandrina Cooper RN Note Robyn Wound Nurse from [place] [phone] Alejandrina Cooper, RN documented in this encounterWestern Reserve Hospital03-26-2024 Nurse Note* An Barker MA - 05/18/2023 1:25 PM EDT Robyn,Wound Nurse from [place] called after visit was complete. and states that she does not think that duoderm is working for patient's wound. It is keeping the wound too moist. Robyn is recommendinga Gricel collagen type dressing, topped with alginate, changed daily. Provider agreed with plan. An Barker MA May 18, 2023 1:46 PM documented in this encounterWestern Reserve Hospital03-26-2024 Miscellaneous Notes* Telephone Encounter - An Barker MA - 05/18/2023 1:22 PM EDT Spoke with Robyn Wound nurse, and advised ok to continue prism collagen type dressing, topped with alginate, changed daily. * Telephone Encounter - Amber Griffith APRN.CNS - 05/18/2023 12:48 PM EDT Please let [facility] care facility that it is fine for them to dress daily with wound nurse's recommendation. documented in this encounterWestern Reserve Hospital03-26-2024 Instructions* Patient Instructions* Amber Griffith APRN.CNS - 05/18/2023 11:39 AM EDT 1) May change Duoderm every 3-5 days and if soiled 2) Cleanse with normal saline and reapply 3) More supplies sent to pharmacy of record 4) Follow up with Dr. Dooley 06/27 for routine care and wound check documented in this encounterWestern Reserve Hospital03-26-2024 History of Present illness Narrative* Amber Griffith [...] Codeine, Shellfish Containing Products, Bacitracin, Latex, and Avon MEDICATIONS Current Outpatient Medications Medication Sig fluticasone [...] agrees with the plan. documented in this encounterWestern Reserve Hospital03-22-2024 Miscellaneous Notes* Telephone Encounter - Olinda Knight [...] PM EDT Robyn, Wound Care Nurse @ [facility], reports pcp provider ordered duoderm for patient's LLL wound. Reports it is not working, the drainage is just sitting there, the wound is macerated, and larger. Robyn is recommending using a Gricel collagen type dressing, top with alginate (an absorbant gauze) and change daily. Asking for verbal order to use the recommended treatment. Please call Robyn with verbal order: [phone] Robyn will be there until 3 or 4 today. documented in this encounterWestern Reserve Hospital03-22-2024 Miscellaneous Notes* Telephone Encounter - Olinda Knight MA - 05/14/2023 2:36 PM EDT See other TC. Olinda Knight MA * Telephone Encounter - Amber Griffith APRN.CNS - 05/14/2023 1:50 PM EDT Please let visiting nurse know that they may use their dressing of preference. documented in this encounterWestern Reserve Hospital03-12-2024 Instructions* Patient Instructions* Amber Griffith APRN.CNS - 05/04/2023 2:54 PM EDT 1) Duoderm every 3 days and as needed 2) Increase protein in diet 3) Increase vitamin C in your diet 4) Keep left leg elevated 5) Follow up in 2 weeks documented in this encounterWestern Reserve Hospital03-12-2024 History of Present illness Narrative* Amber Griffith [...] Codeine, Shellfish Containing Products, Bacitracin, Latex, and Avon MEDICATIONS Current Outpatient Medications Medication Sig fluticasone [...] bronchitis.) Father other (Other) Brother Parkinson's vs Lannon's. age 61. other (Other) Other Meningioma: multiple [...] agrees with the plan. documented in this encounterWestern Reserve Hospital02-12-2024 Instructions* Patient Instructions* Dallas Calabrese APRN.CNP - [...] this time as well. documented in this encounterWestern Reserve Hospital02-12-2024 History of Present illness Narrative* Dallas Calabrese [...] bronchitis.) Father other (Other) Brother Parkinson's vs Lannon's. age 61. other (Other) Other Meningioma: multiple cousins Patient Allergies ALLERGIES ALLERGIES Allergen Reactions Augmentin [Amoxicil* Vomiting Codeine GI Upset, Vomiting Shellfish Containin* Swelling, Anaphylaxis, Shortness of Breath, Other: See Comments, Hives No serious trouble with recent re-introduction of shellfish into diet. Bacitracin Itching Latex Rash Avon Swelling Current Medications Current Outpatient Medications on [...] - US DVT LOWER LEFT Dallas Calabrese, OFFSET LITHOGRAPHIC PRESS OPERATOR.CREDIT CORRESPONDENCE CLERK Currently: Ultrasound was negative for DVT. Has [...] bronchitis.) Father other (Other) Brother Parkinson's vs Lannon's. age 61. other (Other) Other Meningioma: multiple cousins Patient Allergies ALLERGIES Allergen Reactions Augmentin [Amoxicil* Vomiting Codeine GI Upset, Vomiting Shellfish Containin* Swelling, Anaphylaxis, Shortness of Breath, Other: See Comments, Hives No serious trouble with recent re-introduction of shellfish into diet. Bacitracin Itching Latex Rash Avon Swelling Current Medications Current Outpatient Medications on [...] doxy course Continue with elevation Dallas Calabrese APRN.CREDIT CORRESPONDENCE CLERK documented in this encounterWestern Reserve Hospital02-09-2024 NoteHNO ID: [id number] Author: IZAIAH ROSSI TECHNOLOGIST Service: ? Author [...] PATIENT PRESENTS WITH AN IMPLANTABLE OR ATTACHED AUTOMOBILE RACER: No RADIOLOGY DEPARTMENT: Ultrasound PERIPHERAL IV DATA: Not applicable SIGNED BY: GILL ProctorOLOGIST April 02, 2023 4:25 [facility]02-09-2024 History of Present illness Narrative* Izaiah [...] PATIENT PRESENTS WITH AN IMPLANTABLE OR ATTACHED AUTOMOBILE RACER: No RADIOLOGY DEPARTMENT: Ultrasound PERIPHERAL IV DATA: Not applicable SIGNED BY: TECHNOLOGIST Esthela April 02, 2023 4:25 PM documented in this encounterWestern Reserve Hospital02-09-2024 Miscellaneous Notes* Telephone Encounter - Patrizia Bradford - 04/02/2023 3:18 PM EST Faxed to MARIKA Bradford * Telephone Encounter - Dallas Calabrese APRN.CNP - 04/02/2023 3:13 PM EST Can my order be printed? Or am I supposed to put in a whole new order? Dallas Calabrese APRN.CNP * Telephone Encounter - Remberto Bob RN - 04/02/2023 2:41 PM EST Maura- [facility]- reports daughter informed them Heddler sent Rx to pharmacy for doxycycline. Maura asking provider to fax them an order so that they can put it into their system. documented in this encounterWestern Reserve Hospital02-09-2024 Instructions* Patient Instructions* Dallas Calabrese APRN.CNP - [...] Wednesday 04/05 at 1:20. documented in this encounterWestern Reserve Hospital02-09-2024 History of Present illness Narrative* Dallas Calabrese [...] shellfish into diet. 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 age 61. other (Other) Other Meningioma: multiple [...] shellfish into diet. Bacitracin Itching Latex Rash Avon Swelling CURRENT OUTPATIENT MEDICATIONS: fluticasone propion-salmeterol 232-14 [...] which included preparing to see the patient, [id number] patient care, completing clinical documentation, obtaining and/or reviewing separately obtained history, performing a medically appropriate examination, counseling and educating the pat ient/family/caregiver, independently interpreting results (not separately reported), and communicating results to the patient/family/caregiver. Electronically Signed: Margarito Shields MD January 27, 2023 9:55 AM documented in this encounterWestern Reserve Hospital11-01-2023 Miscellaneous Notes* Telephone Encounter - Yary AllynMalinaLianna [...] call patient to schedule. documented in this encounterWestern Reserve Hospital11-01-2023 History of Present illness Narrative* Donnell Dooley MD - 12/23/2022 10:38 AM EDT Patient presents with: Follow Up HPI: Patient presents today for office visit for follow up. Currently resides in [facility]. Follows with podiatry. Has not seen Dr. Haq. Memory is the same. Not any worse. She writes a lot of things down to help her remember. Had last mri in 2021. PULM: Still seeing Dr. Antunez with [facility] Breathing is stable Using oxygen at [...] since retired. Still sees Dr Antunez, at [facility]. Meds have recently been changed. Uses [...] shellfish into diet. Bacitracin Itching Latex Rash Avon Swelling PAST MEDICAL HISTORY Diagnosis Date Breast [...] bronchitis.) Father other (Other) Brother Parkinson's vs Lannon's. age 61. other (Other) Other Meningioma: multiple [...] pulmonary. Donnell Dooley MD documented in this encounterWestern Reserve Hospital10-20-2023 Miscellaneous Notes* Telephone Encounter - Jennifer Holm LPN - 12/11/2022 2:03 PM EDT Completed and faxed back as requested. * Telephone Encounter - Parish Correia LPN - 12/11/2022 10:22 AM EDT Type of form: NH orders Form received via fax When form is completed, Fax form to [phone] Form has been forwarded to Physician Mailbox: Dr. Soumya Correia LPN documented in this encounterWestern Reserve Hospital10-17-2023 Miscellaneous Notes* Telephone Encounter - Amber Clark LPN - 12/08/2022 3:58 PM EDT Therapy department at [facility], notified. Verbalized understanding. * Telephone Encounter - Donnell Dooley MD - 12/08/2022 3:53 PM EDT Ok to do * Telephone Encounter - Amber Clark LPN - 12/08/2022 3:42 PM EDT Faxed received from [facility] Requesting OT Eval and Tx orders for patient due to recent ER visit, collar bone discomfort, and patient reporting difficulty dressing now. Please review and advise documented in this encounterWestern Reserve Hospital10-13-2023 Miscellaneous Notes* Telephone Encounter - Jessica Middleton [...] - 12/04/2022 12:00 PM EDT Haleigh with [facility] called to let you know pt woke up this am complaining of left shoulder pain and now she is having left shoulder pain down to left foot. Vital signs are stable, 11:45am BP 112/64 pulse 73. Pt denies any chest pain. Please advise Jessica Ricardo LPN documented in this encounterWestern Reserve Hospital09-25-2023 Miscellaneous Notes* Telephone Encounter - Skye Payton [...] 11/16/2022 1:22 PM EDT Haleigh, nurse at [facility] nursing facility calling. States patient fell [...] order for xray? Please call Haleigh at [phone]. Thank you. documented in this encounterWestern Reserve Hospital09-07-2023 History of Present illness Narrative* Danika Helms [...] shellfish into diet. Bacitracin Itching Latex Rash Avon Swelling Objective: Incision site is healed without [...] Up Denise Bowman LPN documented in this encounterWestern Reserve Hospital08-31-2023 Instructions* Patient Instructions* Danika Helms - 10/22/2022 9:07 AM EDT Your foot looks great Continue with bandage change every 2-3 days Continue with post-op shoe Plan for suture removal next week documented in this encounterWestern Reserve Hospital08-31-2023 History of Present illness Narrative* Danika Helms [...] shellfish into diet. Bacitracin Itching Latex Rash Avon Swelling Objective: Incision site is well coapted [...] Amputation Denise Bowman LPN documented in this encounterWestern Reserve Hospital08-28-2023 Miscellaneous Notes* Telephone Encounter - Denise Bowman LPN - 10/19/2022 4:52 PM EDT Patient rescheduled. Denise Bowman LPN * Telephone Encounter - Denise Bowman LPN - 10/19/2022 4:32 PM EDT Called patients daughter to possibly move patients appointment due to provider being in surgery. Please transfer patient to podiatry staff. Denise Bowman LPN documented in this encounterWestern Reserve Hospital08-22-2023 History of Present illness Narrative* Danika Helms [...] shellfish into diet. Bacitracin Itching Latex Rash Avon Swelling Objective: Incision site is well coapted [...] shoe at this time. documented in this encounterWestern Reserve Hospital08-22-2023 Instructions* Patient Instructions* Danika Helms - 10/13/2022 [...] you have any questions, call scooter at [phone] documented in this encounterWestern Reserve Hospital08-21-2023 Miscellaneous Notes* Telephone Encounter - Danika Helms - 10/12/2022 8:31 PM EDT I called patient this evening and spoke with daughter. Patient daughter reports that her pain is doing well. Has no complaints. Is coming in for a dressing change tomorrow am. If they have any questions or concerns, they are to contact the office Danika Helms DPM documented in this encounterWestern Reserve Hospital08-21-2023 Miscellaneous Notes* Telephone Encounter - Denise Bowman [...] schedule Danika Helms DPM documented in this encounterWestern Reserve Hospital08-18-2023 Miscellaneous Notes* Telephone Encounter - Denise Bowman LPN - 10/09/2022 2:44 PM EDT PAT patient preoperative instruction was faxed to [phone] with the att. to [facility]. Denise Bowman LPN * Telephone Encounter - Erin Peter LPN - 10/09/2022 1:38 PM EDT Amy. WEAVER with [facility] called. Verified name and date [...] letter, hibiclens, mitchellicleloreta instruction, and map of [facility]. Patient was schedule for preadmission testing and surgical [facility]. Denise Bowman LPN documented in this encounterWestern Reserve Hospital08-18-2023 Miscellaneous Notes* Telephone Encounter - Molly Delacruz LPN - 10/09/2022 9:59 AM EDT Received Cardiac records from [facility]. Original sent to [facility] through [employer] scanning. Molly Delacruz LPN * Telephone Encounter - Molly Delacruz LPN - 10/07/2022 11:44 AM EDT Fax request sent to [facility] for last office visit and cardiac testing for upcoming surgery. Molly Delacruz LPN * Telephone Encounter - Molly Delacruz LPN - 10/07/2022 11:37 AM EDT Fax request sent to [facility] requesting last office visit. Molly Delacruz LPN documented in this encounterWestern Reserve Hospital08-15-2023 Miscellaneous Notes* Telephone Encounter - Guera Roy RN - 10/06/2022 1:11 PM EDT Faxed OV note and medication list to [phone] per request of Domonique. Guera Roy RN * Telephone Encounter - Remberto Bob RN - 10/02/2022 11:44 AM EDT Titi HAIRSTON, reports patient will be moving from independent living to assisted living on 10-07-22.Will need H & P within 30 days of moving date. Last seen in pcp office: 06-14-22. Scheduled apptfor H & P on 10-05-22. documented in this encounterWestern Reserve Hospital08-15-2023 History of Present illness Narrative* Danika Helms - 10/06/2022 1:09 PM EDT Subjective: Patient presents to clinic c/o painful toenails. They state that the nails are especially painful with shoe gear and pressure. Patient also complaining of painful callus between her hevxr2lb and 2nd toe. She states that it has been about 2 months since she had her callus debrided and as a result, her pain to her first and 2nd toe is severe. No other pedal complaints at this time. Patient states no change in medications or medical history since last visit. Objective: Patient presents to clinic ambulating in [facility] Vasc: DP and PT pulses are palpable [...] Patient, Debridement of Nail documented in this encounterWestern Reserve Hospital08-14-2023 Instructions* Patient Instructions* Donnell Dooley MD - 10/05/2022 7:45 PM EDT Needs to see hematology, neurology, and pulmonary. documented in this encounterWestern Reserve Hospital08-14-2023 History of Present illness Narrative* Donnell Dooley [...] since retired. Still sees Dr Antunez, at [facility]. Meds have recently been changed. Uses oxygen at hs. Follows with Dr. Helms, podiatry. Sees Dr. Triana for pain management. Has had some more increased pain. Meniere's is stable. Sees Dr Ramírez and uses meclizine prn. Sees [facility] but needs to follow up [...] Abs Lymph 1.00 - 4.00 k/uL 3.82 [place]% % 6.9 Abs [place] <0.87 k/uL 1.03 (H) Eosin% % 1.3 [...] shellfish into diet. Bacitracin Itching Latex Rash Avon Swelling PAST MEDICAL HISTORY Diagnosis Date Breast [...] bronchitis.) Father other (Other) Brother Parkinson's vs Lannon's. age 61. other (Other) Other Meningioma: multiple [...] six months and prn. documented in this encounterWestern Reserve Hospital08-10-2023 Miscellaneous Notes* Telephone Encounter - Olinda Knight - 10/01/2022 4:38 PM EDT Faxed to [facility]. Olinda Knight * Telephone Encounter - Donnell Dooley MD - 10/01/2022 8:37 AM EDT Printed. * Telephone Encounter - Alejandrina Cooper RN - 09/30/2022 12:52 PM EDT Patient's daughter calls and states that patient is moving from independent living to [facility] assisted care. Daughter states that [facility] is going to need a letter from provider that states that provider recommends patient to be in assisted living. Please review and advise, Alejandrina Cooper RN documented in this encounterWestern Reserve Hospital07-27-2023 Miscellaneous Notes* Telephone Encounter - Guera Roy RN - 09/17/2022 10:51 AM EDT Domonique with [facility] calls to request Face Sheet, Insurance Info, OV Note, Current Medication list withH&P. Verbal ok received from daughter Johanna to send. Faxed to [facility] per request. Guera Roy RN documented in this encounterWestern Reserve Hospital06-01-2023 History of Present illness Narrative* Danika Helms [...] shellfish into diet. Bacitracin Itching Latex Rash Avon Swelling PAST SURGICAL HISTORY Procedure Laterality Date [...] Pain Denise Bowman LPN documented in this encounterWestern Reserve Hospital04-27-2023 History of Present illness Narrative* Danika Helms [...] shellfish into diet. Bacitracin Itching Latex Rash Avon Swelling PAST SURGICAL HISTORY Procedure Laterality Date [...] wellpost total nail removal. documented in this encounterWestern Reserve Hospital04-27-2023 Miscellaneous Notes* Telephone Encounter - Ronda Ruiz [...] can advise? Thank you. documented in this encounterWestern Reserve Hospital04-26-2023 Miscellaneous Notes* Telephone Encounter - Kaleigh Simmons [...] labs in one week documented in this encounterWestern Reserve Hospital04-24-2023 History of Past illness Narrative* Problem Noted Date Diagnosed Date Resolved Date Atrial fibrillation 06/15/2022 12/24/19 Last Assessment & Plan: Assessment: following [facility], records requested History of breast cancer in female 05/12/2017 03/24/2018 Epigastric pain 05/11/2016 12/20/2020 Chronic bronchitis Overview: Sees Dr. Antunez at [facility] documented as of this encounter (statuses as of 12/23/2022) [facility] History of Past illness Narrative* Problem Noted Date Diagnosed Date Resolved Date Atrial fibrillation 06/15/2022 12/24/19 Last Assessment & Plan: Assessment: following [facility], records requested History of breast cancer in female 05/12/2017 03/24/2018 Epigastric pain 05/11/2016 12/20/2020 Chronic bronchitis Overview: Sees Dr. Antunez at [facility] documented as of this encounter (statuses as of 12/24/2022) [facility] History of Past illness Narrative* Problem Noted Date Diagnosed Date Resolved Date Atrial fibrillation 06/15/2022 12/24/19 Last Assessment & Plan: Assessment: following [facility], records requested History of breast cancer in female 05/12/2017 03/24/2018 Epigastric pain 05/11/2016 12/20/2020 Chronic bronchitis Overview: Sees Dr. Antunez at [facility] documented as of this encounter (statuses as of 01/27/2023) [facility] of Past illness Narrative* Problem Noted Date Diagnosed Date Resolved Date Atrial fibrillation 06/15/2022 12/24/19 Last Assessment & Plan: Assessment: following [facility], records requested History of breast cancer in female 05/12/2017 03/24/2018 Epigastric pain 05/11/2016 12/20/2020 Chronic bronchitis 3 Overview: Sees Dr. Antunez at [facility] documented as of this encounter (statuses as of 04/02/2023) [facility] of Past illness Narrative* Problem Noted Date Diagnosed Date Resolved Date Atrial fibrillation 06/15/2022 12/24/19 Last Assessment & Plan: Assessment: following [facility], records requested History of breast cancer in female 05/12/2017 03/24/2018 Epigastric pain 05/11/2016 12/20/2020 Chronic bronchitis Overview: Sees Dr. Antunez at [facility] documented as of this encounter (statuses as of 04/03/2023) [facility] of Past illness Narrative* Problem Noted Date Diagnosed Date Resolved Date Atrial fibrillation 06/15/2022 12/24/19 Last Assessment & Plan: Assessment: following [facility], records requested History of breast cancer in female 05/12/2017 03/24/2018 Epigastric pain 05/11/2016 12/20/2020 Chronic bronchitis Overview: Sees Dr. Antunez at [facility] documented as of this encounter (statuses as of 04/07/2023) [facility] of Past illness Narrative* Problem Noted Date Diagnosed Date Resolved Date Atrial fibrillation 06/15/2022 12/24/19 Last Assessment & Plan: Assessment: following [facility], records requested History of breast cancer in female 05/12/2017 03/24/2018 Epigastric pain 05/11/2016 12/20/2020 Chronic bronchitis Overview: Sees Dr. Antunez at [facility] documented as of this encounter (statuses as of 04/07/2023) [facility] of Past illness Narrative* Problem Noted Date Diagnosed Date Resolved Date Atrial fibrillation 06/15/2022 12/24/19 Last Assessment & Plan: Assessment: following [facility], records requested History of breast cancer in female 05/12/2017 03/24/2018 Epigastric pain 05/11/2016 12/20/2020 Chronic bronchitis Overview: Sees Dr. Antunez at [facility] documented as of this encounter (statuses as of 05/05/2023) [facility] of Past illness Narrative* Problem Noted Date Diagnosed Date Resolved Date Atrial fibrillation 06/15/2022 12/24/19 Last Assessment & Plan: Assessment: following [facility], records requested History of breast cancer in female 05/12/2017 03/24/2018 Epigastric pain 05/11/2016 12/20/2020 Chronic bronchitis 3 Overview: Sees Dr. Antunez at [facility] documented as of this encounter (statuses as of 05/14/2023) [facility] of Past illness Narrative* Problem Noted Date Diagnosed Date Resolved Date Atrial fibrillation 06/15/2022 12/24/19 Last Assessment & Plan: Assessment: following [facility], records requested History of breast cancer in female 05/12/2017 03/24/2018 Epigastric pain 05/11/2016 12/20/2020 Chronic bronchitis 3 Overview: Sees Dr. Antunez at [facility] documented as of this encounter (statuses as of 05/14/2023) [facility] of Past illness Narrative* Problem Noted Date Diagnosed Date Resolved Date Atrial fibrillation 06/15/2022 12/24/19 Last Assessment & Plan: Assessment: following [facility], records requested History of breast cancer in female 05/12/2017 03/24/2018 Epigastric pain 05/11/2016 12/20/2020 Chronic bronchitis 3 Overview: Sees Dr. Antunez at [facility] documented as of this encounter (statuses as of 05/18/2023) [facility] of Past illness Narrative* Problem Noted Date Diagnosed Date Resolved Date Atrial fibrillation 06/15/2022 12/24/19 Last Assessment & Plan: Assessment: following [facility], records requested History of breast cancer in female 05/12/2017 03/24/2018 Epigastric pain 05/11/2016 12/20/2020 Chronic bronchitis Overview: Sees Dr. Antunez at [facility] documented as of this encounter (statuses as of 05/18/2023) [facility] of Present illness Narrative* Donnell Dooley [...] shellfish into diet. Bacitracin Itching Latex Rash Avon Swelling PAST MEDICAL HISTORY Diagnosis Date Breast [...] bronchitis.) Father other (Other) Brother Parkinson's vs Lannon's. age 61. other (Other) Other Meningioma: multiple [...] agel Donnell Dooley MD documented in this encounterWestern Reserve Hospital03-29-2023 Miscellaneous Notes* Telephone Encounter - Jennifer Holm LPN - 05/20/2022 1:23 PM EDT Completed and faxed. * Telephone Encounter - Parish Correia LPN - 05/19/2022 10:40 AM EDT Type of form: Physical Therapy Orders Form received via fax When form is completed, Fax form to [phone] Form has been forwarded to Physician Mailbox: Dr. Soumya Correia LPN documented in this encounterWestern Reserve Hospital03-23-2023 History of Present illness Narrative* Danika Helms [...] (FLONASE) 50 mcg/actuation nasal spray Use 1 [place] in each nostril once daily. CALCIUM ORAL [...] shellfish into diet. Bacitracin Itching Latex Rash Avon Swelling PAST SURGICAL HISTORY Procedure Laterality Date [...] toe. Denise Bowman LPN documented in this encounterWestern Reserve Hospital03-23-2023 Instructions* Patient Instructions* Danika Helms - 05/14/2022 1:45 PM EDT Your wound appears to be healing Continue with soaks for 1-2 more weeks or until healed Call if any issues arise documented in this encounterWestern [facility] Hospital03-09-[facility]23 History of Present illness Narrative* Sherron Warren [...] History of ileus Meniere's disease Dr. Mendosa, [place] [facility]. Meningioma (HCC) Mitral valve regurgitation Non [...] (FLONASE) 50 mcg/actuation nasal spray Use 1 Alma in each nostril once daily. CALCIUM ORAL [...] shellfish into diet. Bacitracin Itching Latex Rash Avon Swelling PAST SURGICAL HISTORY Procedure Laterality Date [...] are audible with doppler. Non-Invasive Vascular Laboratory [facility] Lower Extremity Arterial Physiology Study Bilateral/Complete [...] Normal at rest. Technologist: Eugenia Wang RVT, [facility] Ordering physician: DANIKA HELMS Interpreting physician: [...] foot. Denise Bowman LPN documented in this encounterWestern Reserve Hospital03-09-2023 Instructions* Patient Instructions* Sherron Warren RN - [...] as well if you have any questions/concerns [phone], ask for Podiatry Nurse documented in this encounterWestern Reserve Hospital02-22-2023 Miscellaneous Notes* Telephone Encounter - Guera Roy [...] SYMPTOMS: Just feels off. Protocols used: Neurologic Jppdgtl-[id number]-RW documented in this encounterWestern Reserve Hospital02-04-2023 History of Present illness Narrative* Danika Helms [...] (FLONASE) 50 mcg/actuation nasal spray Use 1 Alma in each nostril once daily. CALCIUM ORAL [...] shellfish into diet. Bacitracin Itching Latex Rash Avon Swelling PAST SURGICAL HISTORY Procedure Laterality Date [...] foot pain and callus. documented in this encounterWestern Reserve Hospital01-23-2023 History of Present illness Narrative* Patsy Valencia APRN.CREDIT CORRESPONDENCE CLERK - 03/16/2022 10:44 AM EST CC: Patient [...] Codeine, Shellfish Containing Products, Bacitracin, Latex, and Avon MEDICATIONS rivastigmine tartrate (EXELON) 1.5 mg capsule [...] (FLONASE) 50 mcg/actuation nasal spray Use 1 Alma in each nostril once daily. CALCIUM ORAL [...] bronchitis.) Father other (Other) Brother Parkinson's vs Lannon's. age 61. other (Other) Other Meningioma: multiple [...] changes. IMPRESSION IMPRESSION: No acute radiographic abnormality. Sport Psychologist: TAMMY Transcribe Date/Time: Mar 16 2022 11:37A [...] daughter agreeable to treatment plan. Patsy Valencia APRN.CREDIT CORRESPONDENCE CLERK documented in this encounterWestern Reserve Hospital01-23-2023 Miscellaneous Notes* Telephone Encounter - Remberto Bob [...] exposures. Had flu over Jal[place]. Lives at [facility] independent living. Protocols used: Cough - Acute Iax-Yawvwzhvjq-XCUID-AH documented in this encounterWestern Reserve Hospital12-06-2022 History of Present illness Narrative* Danika Helms [...] History of ileus Meniere's disease Dr. Mendosa, [place] [facility]. Meningioma (HCC) Mitral valve regurgitation Non [...] (FLONASE) 50 mcg/actuation nasal spray Use 1 Alma in each nostril once daily. CALCIUM ORAL [...] shellfish into diet. Bacitracin Itching Latex Rash Avon Swelling PAST SURGICAL HISTORY Procedure Laterality Date [...] Right greater toe pain. documented in this encounterWestern Reserve Hospital10-31-2022 History of Present illness Narrative* Danika Helms [...] (FLONASE) 50 mcg/actuation nasal spray Use 1 Alma in each nostril once daily. CALCIUM ORAL [...] - Follow Up, Callous documented in this encounterWestern Reserve Hospital10-18-2022 History of Present illness Narrative* Donnell Dooley [...] was put on a medrol per the [employer] at her facility and it improved. Now having some issues with her right hip and back on her leg. Hurts to lay down and move. No falls or trauma. No redness or warmth in the leg. Has some mild numbness No issues controlling bowel or bladder. Neuro:will not take aricept. Dell dizzy. Has menier's also. PULM: still wearing [...] (FLONASE) 50 mcg/actuation nasal spray Use 1 Alma in each nostril once daily. CALCIUM ORAL [...] SEASONAL QUADRIVALENT HIGH DOSE AGE 65+ - PFIZER-YouEye COVID-19 BIVALENT BOOSTER VACCINE, AGE 12+ YR [...] RTO in six months documented in this encounterWestern Reserve Hospital09-29-2022 History of Present illness Narrative* Catrachita Osuna - 11/20/2021 2:15 PM EDT POPULATION HEALTH NAVIGATION OUTREACH Action/I Barron Support: Called pt to schedule an appt in Pain Management. Lvm for pt to call [phone] for scheduling. Pt identified by name and [...] 20, 2021 2:15 PM documented in this encounterWestern Reserve Hospital09-15-2022 History of Present illness Narrative* Danika Helms [...] (FLONASE) 50 mcg/actuation nasal spray Use 1 Alma in each nostril once daily. CALCIUM ORAL [...] EGD TRANSORAL BIOPSY SINGLE/MULTIPLE 10/12/2016 EGD W/O [facility] [place] SPEC VARICIES INJ N/A HEMORRHOIDECTOMY MASTECTOMY HX [...] Continuous Intervention/Comfort measure: Relaxation documented in this encounterWestern Reserve Hospital09-07-2022 Miscellaneous Notes* Telephone Encounter - Jennifer Holm LPN - 10/29/2021 4:33 PM EDT Faxed order as requested. * Telephone Encounter - Donnell Dooley MD - 10/29/2021 4:20 PM EDT done * Telephone Encounter - Jennifer Holm LPN - 10/29/2021 4:01 PM EDT [facility] requesting order for outpatient PT orders due to decreased strength, balance, and walking without assistive device. Please see pending order so can be printed and faxed as requested to [phone]. documented in this encounterWestern Reserve Hospital09-01-2022 History of Present illness Narrative* Molly Hays - 10/23/2021 5:40 PM EDT POPULATION HEALTH NAVIGATION OUTREACH Action/[facility] OUTREACH: M for Patient to call [phone] to schedule PT Consult Pt identified by [...] 23, 2021 5:40 PM documented in this encounterWestern Reserve Hospital08-18-2022 History of Present illness Narrative* Danika Helms [...] (FLONASE) 50 mcg/actuation nasal spray Use 1 Alma in each nostril once daily. CALCIUM ORAL [...] Could consider removal in future. * Denise Bowman LPN - 10/09/2021 10:43 AM EDT AMB ROOMING INTAKE FLOWSHEET DATA Risk Screening Do you have concerns about personal safety or safety in the home?: No Patient presents with: Left Foot - Established Patient, Follow Up, callus Right Foot - Established Patient, Follow Up, callus Present with daughter. Denise Bowman LPN documented in this encounterWestern Reserve Hospital08-02-2022 Miscellaneous Notes* Telephone Encounter - Tammy North [...] in until 10/14/21. She reports she got [place] ordered from the hospital to take every 6 hours, but daughter doesn't remember the dose. She states the hospital told them to call the PCP for ore pain medication once it ran out. They are asking if you would send a prescription in to [facility] in [place]. Please call and advise. documented in this encounterWestern Reserve Hospital07-26-2022 Miscellaneous Notes* Telephone Encounter - An Barker [...] Andre is requesting a call back at [phone]. Please review and advise, Guera Roy RN documented in this encounterWestern Reserve Hospital07-25-2022 Miscellaneous Notes* Telephone Encounter - Guera Roy RN - 09/15/2021 10:06 AM EDT Daughter (Johanna) calls to request referral be sent to Dr. Nowak for pain management to arrange appointment for post hospitalization. Faxed per daughter request to [phone] with note patient currently hospitalized. Guera Roy [...] Andrade. Inna Harris LPN documented in this encounterWestern Reserve Hospital07-19-2022 Miscellaneous Notes* Telephone Encounter - Stefanie Crawford [...] Prior Authorization has been completed online at [employer] for Rivastigmine Patch , will await response. [id number] Please keep encounter open until final decision has been received and documented from insurance company. Stefanie Crawford MA documented in this encounterWestern Reserve Hospital07-18-2022 Miscellaneous Notes* Telephone Encounter - Jennifer Holm LPN - 09/08/2021 12:49 PM EDT Notified daughter via [employer] that office was working on PA. * [...] 11:36 AM EDT PT order sent to [facility] at fax # [phone]. She also reports that the patch the provider ordered for the Pt was declined by her insurance. She states her mom can take the pill and is asking if provider could send that to [facility] for her. documented in this encounterWestern Reserve Hospital07-14-2022 History of Present illness Narrative* Donnell Dooley MD - 09/04/2021 4:05 PM EDT Patient presents with: Follow Up: 3 month follow up Back Pain: sciatica right leg 1 week HPI: Patient presents today for office visit for follow up. Had some neck soreness a month ago but was put on a medrol per the [employer] at her facility and it improved. Now having some issues with her right hip and back on her leg. Hurts to lay down and move. No falls or trauma. No redness or warmth in the leg. Has some mild numbness No issues controlling bowel or bladder. Neuro:will not take aricept. Dell dizzy. Has menier's also. PULM: still wearing [...] (FLONASE) 50 mcg/actuation nasal spray Use 1 Alma in each nostril once daily. CALCIUM ORAL [...] three months and prn. documented in this encounterWestern Reserve Hospital06-28-2022 Instructions* Patient Instructions* Danika Helms - 08/19/2021 11:19 AM EDT Use toe spacer or lambs wool to prevent rubbing Follow-up every 4 weeks for callus paring. documented in this encounterWestern Reserve Hospital06-28-2022 History of Present illness Narrative* Danika Helms [...] (FLONASE) 50 mcg/actuation nasal spray Use 1 Alma in each nostril once daily. CALCIUM ORAL [...] until after the wedding. documented in this encounterWestern Reserve Hospital06-13-2022 History of Present illness Narrative* Jane Mcmillan MD - 08/04/2021 11:17 AM EDT PATIENT NAME: Madison Lofton. CLINIC NO: [id number]. ATTENDING PHYSICIAN: Jane Mcmillan MD. 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 Patient [...] Lymph 1.00 - 4.00 k/uL 4.46 (H) [place]% % 5.7 Abs [place] <0.87 k/uL 0.85 Eosin% % 2.7 Abs [...] Cc: Dr. Donnell Dooley documented in this encounterWestern Reserve Hospital04-13-2022 History of Present illness Narrative* Donnell Dooley [...] and her daughter. They have moved to [place] in October. Has had issues with memory assessments done recently. Did have an issues about six weeks ago where she was not feeling well and was saying strange things. Has had episodes where she is talking about things that did not occur. She has also noted some issues with her memory. Concerned because she has a family history of dementia manager long term care memory is intact. Short term memory has [...] Lymph 1.00 - 4.00 k/uL 6.01 (H) [place]% % 0.0 Abs [place] <0.87 k/uL 0.00 Eosin% % 1.0 Abs Eosin <0.46 k/uL 0.13 Baso% % 0.0 Abs Baso <0.11 k/uL 0.00 Platelet Estimate Adequate Red Cell Morph Reviewed Ovalocytes Few RBC Fragments None Seen Few (A) DTYPE Manual Color Yellow Yellow Clarity Clear Clear Glucose, Urine Negative Negative Bilirubin, Urine Negative Negative Ketones, Urine Negative Negative Specific [place], Ur 1.005 - 1.030 1.019 Hemoglobin/Blood,Ur Negative [...] Take 1 tablet by mouth once daily. [id number]-PTZCAPSHY-VOXC ORAL Take by mouth. SYMBICORT 160-4.5 mcg/actuation [...] (FLONASE) 50 mcg/actuation nasal spray Use 1 Alma in each nostril once daily. CALCIUM ORAL [...] chart. Has a new medical power of attorney lawyer form VITALS: BP 138/82 Pulse 70 Wt [...] three months and prn. documented in this encounterWestern Reserve Hospital04-04-2022 History of Present illness Narrative* RT Nkechi(R) [...] 2021 TIME: 3:06 PM documented in this encounterWestern Reserve Hospital03-15-2022 History of Present illness Narrative* Magali Lau [...] 06, 2021 2:55 PM documented in this encounterWestern Reserve Hospital03-21-2018 History of Past illness Narrative* Problem Noted Date Resolved Date History of breast cancer in female 05/12/2017 03/24/2018 Epigastric pain 05/11/2016 12/20/2020 Non Hodgkin's lymphoma 1 Overview: About 14 years ago. No XRT, chemotherapy. Watchful waiting. documented as of this encounter (statuses as of 05/26/2021) [facility] of Past illness Narrative* Problem Noted Date Resolved Date History of breast cancer in female 05/12/2017 03/24/2018 Epigastric pain 05/11/2016 12/20/2020 Non Hodgkin's lymphoma 1 Overview: About 14 years ago. No XRT, chemotherapy. Watchful waiting. documented as of this encounter (statuses as of 05/27/2021) [facility] of [facility] illness Narrative* Problem Noted Date Resolved Date History of breast cancer in female 05/12/2017 03/24/2018 Epigastric pain 05/11/2016 12/20/2020 Non Hodgkin's lymphoma Overview: About 14 years ago. No XRT, chemotherapy. Watchful waiting. documented as of this encounter (statuses as of 06/04/2021) [address]21-2018 History of Past illness Narrative* Problem Noted Date Resolved Date History of breast cancer in female 05/12/2017 03/24/2018 Epigastric pain 05/11/2016 12/20/2020 documented as of this encounter (statuses as of 08/05/2021) [address]2018 History of Past illness Narrative* Problem Noted Date Resolved Date History of breast cancer in female 05/12/2017 03/24/2018 Epigastric pain 05/11/2016 12/20/2020 documented as of this encounter (statuses as of 08/19/2021) [address]2018 History of Past illness Narrative* Problem Noted Date Resolved Date History of breast cancer in female 05/12/2017 03/24/2018 Epigastric pain 05/11/2016 12/20/2020 documented as of this encounter (statuses as of 09/04/2021) [address]-2018 History of Past illness Narrative* Problem Noted Date Resolved Date History of breast cancer in female 05/12/2017 03/24/2018 Epigastric pain 05/11/2016 12/20/2020 documented as of this encounter (statuses as of 09/08/2021) [address]2018 History of Past illness Narrative* Problem Noted Date Resolved Date History of breast cancer in female 05/12/2017 03/24/2018 Epigastric pain 05/11/2016 12/20/2020 documented as of this encounter (statuses as of 09/09/2021) [address]2018 History of Past illness Narrative* Problem Noted Date Resolved Date History of breast cancer in female 05/12/2017 03/24/2018 Epigastric pain 05/11/2016 12/20/2020 documented as of this encounter (statuses as of 09/15/2021) [address]2018 History of Past illness Narrative* Problem Noted Date Resolved Date History of breast cancer in female 05/12/2017 03/24/2018 Epigastric pain 05/11/2016 12/20/2020 documented as of this encounter (statuses as of 09/16/2021) [address]2018 History of Past illness Narrative* Problem Noted Date Resolved Date History of breast cancer in female 05/12/2017 03/24/2018 Epigastric pain 05/11/2016 12/20/2020 documented as of this encounter (statuses as of 09/23/2021) [address]2018 History of Past illness Narrative* Problem Noted Date Resolved Date History of breast cancer in female 05/12/2017 03/24/2018 Epigastric pain 05/11/2016 12/20/2020 documented as of this encounter (statuses as of 10/09/2021) [address]2018 History of Past illness Narrative* Problem Noted Date Resolved Date History of breast cancer in female 05/12/2017 03/24/2018 Epigastric pain 05/11/2016 12/20/2020 documented as of this encounter (statuses as of 10/23/2021) [address]2018 History of Past illness Narrative* Problem Noted Date Resolved Date History of breast cancer in female 05/12/2017 03/24/2018 Epigastric pain 05/11/2016 12/20/2020 documented as of this encounter (statuses as of 10/29/2021) [address] History of Past illness Narrative* Problem Noted Date Resolved Date History of breast cancer in female 05/12/2017 03/24/2018 Epigastric pain 05/11/2016 12/20/2020 documented as of this encounter (statuses as of 11/06/2021) [address]2018 History of Past illness Narrative* Problem Noted Date Resolved Date History of breast cancer in female 05/12/2017 03/24/2018 Epigastric pain 05/11/2016 12/20/2020 documented as of this encounter (statuses as of 11/20/2021) [address] History of Past illness Narrative* Problem Noted Date Resolved Date History of breast cancer in female 05/12/2017 03/24/2018 Epigastric pain 05/11/2016 12/20/2020 documented as of this encounter (statuses as of 12/09/2021) [facility]* Problem Noted Date Resolved Date History of breast cancer in female 05/12/2017 03/24/2018 Epigastric pain 05/11/2016 12/20/2020 documented as of this encounter (statuses as of 12/22/2021) [facility] Narrative* Problem Noted Date Resolved Date History of breast cancer in female 05/12/2017 03/24/2018 Epigastric pain 05/11/2016 12/20/2020 documented as of this encounter (statuses as of 01/27/2022) [address] History of Past illness Narrative* Problem Noted Date Resolved Date History of breast cancer in female 05/12/2017 03/24/2018 Epigastric pain 05/11/2016 12/20/2020 documented as of this encounter (statuses as of 03/16/2022) [facility]* Problem Noted Date Resolved Date History of breast cancer in female 05/12/2017 03/24/2018 Epigastric pain 05/11/2016 12/20/2020 documented as of this encounter (statuses as of 03/16/2022) [facility]* Problem Noted Date Resolved Date History of breast cancer in female 05/12/2017 03/24/2018 Epigastric pain 05/11/2016 12/20/2020 documented as of this encounter (statuses as of 03/28/2022) [facility]* Problem Noted Date Resolved Date History of breast cancer in female 05/12/2017 03/24/2018 Epigastric pain 05/11/2016 12/20/2020 documented as of this encounter (statuses as of 04/15/2022) [facility]* Problem Noted Date Resolved Date History of breast cancer in female 05/12/2017 03/24/2018 Epigastric pain 05/11/2016 12/20/2020 documented as of this encounter (statuses as of 04/30/2022) [address] History of Past illness Narrative* Problem Noted Date Resolved Date History of breast cancer in female 05/12/2017 03/24/2018 Epigastric pain 05/11/2016 12/20/2020 documented as of this encounter (statuses as of 05/14/2022) [facility]* Problem Noted Date Resolved Date History of breast cancer in female 05/12/2017 03/24/2018 Epigastric pain 05/11/2016 12/20/2020 documented as of this encounter (statuses as of 05/20/2022) [facility]* Problem Noted Date Resolved Date History of breast cancer in female 05/12/2017 03/24/2018 Epigastric pain 05/11/2016 12/20/2020 Chronic bronchitis 06/15/2022 Overview: Sees Dr. Antunez at [facility] documented as of this encounter (statuses as of 06/15/2022) [facility] Narrative* Problem Noted Date Resolved Date History of breast cancer in female 05/12/2017 03/24/2018 Epigastric pain 05/11/2016 12/20/2020 Chronic bronchitis 06/15/2022 Overview: Sees Dr. Antunez at [facility] documented as of this encounter (statuses as of 06/18/2022) [facility] Narrative* Problem Noted Date Resolved Date History of breast cancer in female 05/12/2017 03/24/2018 Epigastric pain 05/11/2016 12/20/2020 Chronic bronchitis 06/15/2022 Overview: Sees Dr. Antunez at [facility] documented as of this encounter (statuses as of 06/18/2022) [facility] Narrative* Problem Noted Date Resolved Date History of breast cancer in female 05/12/2017 03/24/2018 Epigastric pain 05/11/2016 12/20/2020 Chronic bronchitis 06/15/2022 Overview: Sees Dr. Antunez at [facility] documented as of this encounter (statuses as of 06/27/2022) [facility] Narrative* Problem Noted Date Resolved Date History of breast cancer in female 05/12/2017 03/24/2018 Epigastric pain 05/11/2016 12/20/2020 Chronic bronchitis 06/15/2022 Overview: Sees Dr. Antunez at [facility] documented as of this encounter (statuses as of 07/23/2022) [facility]ative* Problem Noted Date Diagnosed Date Resolved Date History of breast cancer in female 05/12/2017 03/24/2018 Epigastric pain 05/11/2016 12/20/2020 Chronic bronchitis 3 Overview: Sees Dr. Antunez at [facility] documented as of this encounter (statuses as of 09/17/2022) [facility] Narrative* Problem Noted Date Diagnosed Date Resolved Date History of breast cancer in female 05/12/2017 03/24/2018 Epigastric pain 05/11/2016 12/20/2020 Chronic bronchitis 3 Overview: Sees Dr. Antunez at [facility] documented as of this encounter (statuses as of 10/02/2022) [facility] Narrative* Problem Noted Date Diagnosed Date Resolved Date History of breast cancer in female 05/12/2017 03/24/2018 Epigastric pain 05/11/2016 12/20/2020 Chronic bronchitis 3 Overview: Seerohan Antunez at [facility] documented as of this encounter (statuses as of 10/06/2022) [facility]arrative* Problem Noted Date Diagnosed Date Resolved Date History of breast cancer in female 05/12/2017 03/24/2018 Epigastric pain 05/11/2016 12/20/2020 Chronic bronchitis 3 Overview: Seerohan Antunez at [facility] documented as of this encounter (statuses as of 10/07/2022) [facility] Narrative* Problem Noted Date Diagnosed Date Resolved Date History of breast cancer in female 05/12/2017 03/24/2018 Epigastric pain 05/11/2016 12/20/2020 Chronic bronchitis 3 Overview: Sees Dr. Antunez at [facility] documented as of this encounter (statuses as of 10/07/2022) [facility] Narrative* Problem Noted Date Diagnosed Date Resolved Date History of breast cancer in female 05/12/2017 03/24/2018 Epigastric pain 05/11/2016 12/20/2020 Chronic bronchitis 3 Overview: Sees Dr. Antunez at [facility] documented as of this encounter (statuses as of 10/09/2022) [facility]arrative* Problem Noted Date Diagnosed Date Resolved Date History of breast cancer in female 05/12/2017 03/24/2018 Epigastric pain 05/11/2016 12/20/2020 Chronic bronchitis 3 Overview: Seerohan Antunez at [facility] documented as of this encounter (statuses as of 10/12/2022) [facility] Narrative* Problem Noted Date Diagnosed Date Resolved Date History of breast cancer in female 05/12/2017 03/24/2018 Epigastric pain 05/11/2016 12/20/2020 Chronic bronchitis 3 Overview: Seerohan Antunez at [facility] documented as of this encounter (statuses as of 10/13/2022) [facility]arrative* Problem Noted Date Diagnosed Date Resolved Date History of breast cancer in female 05/12/2017 03/24/2018 Epigastric pain 05/11/2016 12/20/2020 Chronic bronchitis 3 Overview: Seerohan Antunez at [facility] documented as of this encounter (statuses as of 10/13/2022) [facility]arrative* Problem Noted Date Diagnosed Date Resolved Date History of breast cancer in female 05/12/2017 03/24/2018 Epigastric pain 05/11/2016 12/20/2020 Chronic bronchitis 3 Overview: Seerohan Antunez at [facility] documented as of this encounter (statuses as of 10/20/2022) [facility]03-21-2018 History of Past illness Narrative* Problem Noted Date Diagnosed Date Resolved Date History of breast cancer in female 05/12/2017 03/24/2018 Epigastric pain 05/11/2016 12/20/2020 Chronic bronchitis 3 Overview: Sees Dr. Antunez at [facility] documented as of this encounter (statuses as of 10/22/2022) [facility] History of Past illness Narrative* Problem Noted Date Diagnosed Date Resolved Date History of breast cancer in female 05/12/2017 03/24/2018 Epigastric pain 05/11/2016 12/20/2020 Chronic bronchitis 3 Overview: Seerohan Antunez at [facility] documented as of this encounter (statuses as of 10/29/2022) [facility] History of Past illness Narrative* Problem Noted Date Diagnosed Date Resolved Date History of breast cancer in female 05/12/2017 03/24/2018 Epigastric pain 05/11/2016 12/20/2020 Chronic bronchitis 3 Overview: Seerohan Antunez at [facility] documented as of this encounter (statuses as of 11/16/2022) [facility] History of Past illness Narrative* Problem Noted Date Diagnosed Date Resolved Date History of breast cancer in female 05/12/2017 03/24/2018 Epigastric pain 05/11/2016 12/20/2020 Chronic bronchitis 3 Overview: Seerohan Antunez at [facility] documented as of this encounter (statuses as of 12/04/2022) [facility] History of Past illness Narrative* Problem Noted Date Diagnosed Date Resolved Date History of breast cancer in female 05/12/2017 03/24/2018 Epigastric pain 05/11/2016 12/20/2020 Chronic bronchitis 3 Overview: Sees Dr. Antunez at [facility] documented as of this encounter (statuses as of 12/09/2022) [facility] History of Past illness Narrative* Problem Noted Date Diagnosed Date Resolved Date History of breast cancer in female 05/12/2017 03/24/2018 Epigastric pain 05/11/2016 12/20/2020 Chronic bronchitis 3 Overview: Sees Dr. Antunez at [facility] documented as of this encounter (statuses as of 12/11/2022) [facility] Thrush- Primary Candidiasis of mouth [facility] Diagnosis Brain mass Unspecified condition of brain Meningioma (HCC) Benign neoplasm of cerebral meninges [facility] Diagnosis Hypokalemia- Primary Hypopotassemia Mild cognitive impairment Mild cognitive impairment, so stated Meningioma (HCC) Benign neoplasm of cerebral meninges Pulmonary emphysema, unspecified emphysema type (HCC) Personal history of CLL (chronic lymphocytic leukemia) Personal history of lymphoid leukemia [facility] History of breast cancer- Primary Personal history of malignant neoplasm of breast Small B-cell lymphoma, unspecified body region (HCC) Meningioma (HCC) Benign neoplasm of cerebral meninges [facility] Diagnosis Hallux valgus of right foot- Primary Callus of foot Corns and callosities [facility] Diagnosis Mild cognitive disorder- Primary Unspecified persistent mental disorders due to conditions classified elsewhere Pulmonary emphysema, unspecified emphysema type (HCC) Sciatica, right side History of breast cancer Personal history of malignant neoplasm of breast Personal history of CLL (chronic lymphocytic leukemia) Personal history of lymphoid leukemia [facility] Diagnosis Mild cognitive impairment- Primary Mild cognitive impairment, so stated [facility] Diagnosis Onset Date Resolution Status Constipation acute Gastritis acute Hx of small bowel obstruction acute Thrush acute Chronic respiratory failure with hypoxia chronic COPD (chronic obstructive pulmonary disease) [facility] Work Phone: Evaluation note* Diagnosis Acute midline low back pain without sciatica- Primary [facility] Diagnosis DDD (degenerative disc disease), lumbar- Primary Degeneration of lumbar or lumbosacral intervertebral disc [facility] Diagnosis Hallux valgus of right foot- Primary Callus of foot Corns and callosities Onychomycosis Dermatophytosis of nail [facility] Diagnosis Decreased strength- Primary Muscle weakness (generalized) Unsteady gait Abnormality of gait Balance problem Other symptoms involving nervous and musculoskeletal systems [facility] Diagnosis Callus of foot- Primary Corns and callosities Hallux valgus of right foot [facility] Diagnosis Mild cognitive impairment- Primary Mild cognitive impairment, so stated Encounter for immunization Need for other specified prophylactic vaccination against single bacterial disease Meningioma (HCC) Benign neoplasm of cerebral meninges Mitral valve insufficiency, unspecified etiology Pulmonary emphysema, unspecified emphysema type (HCC) Small B-cell lymphoma, unspecified body region (HCC) [facility] Diagnosis Callus of foot- Primary Corns and callosities Hallux valgus of right foot Onychomycosis Dermatophytosis of nail Pain in toe of left foot Pain in limb [facility] Diagnosis Hallux valgus of right foot- Primary Ulcer of toe of right foot, limited to breakdown of skin (HCC) [facility] Diagnosis Acute cough- Primary Rhinosinusitis Unspecified sinusitis (chronic) [facility] Diagnosis Hallux valgus of right foot- Primary Callus of foot Corns and callosities Ulcer of toe of right foot, limited to breakdown of skin (HCC) [facility] Diagnosis Onset Date Resolution Status Chronic respiratory failure with hypoxia chronic COPD (chronic obstructive pulmonary disease) [facility] Work Phone: Evaluation note* Diagnosis Onychomycosis- Primary Dermatophytosis of nail Hallux valgus of right foot Callus of foot Corns and callosities [facility]* Diagnosis Open wound of toe, initial [...] unspecified type- Primary [facility]* Diagnosis Mild cognitive impairment- Primary Mild [...] unspecified, unspecified cause documented in this encounter [facility]* Diagnosis Small B-cell lymphoma, unspecified body region (HCC) [facility] Diagnosis Cellulitis of skin Cellulitis and abscess of unspecified site Left ankle swelling Effusion of ankle and foot joint Discoloration of skin of lower leg Dyschromia, unspecified Acute left ankle pain Blister of left lower extremity, initial encounter Localized edema Edema documented in this encounter [facility]* Diagnosis Cellulitis of skin- Primary Cellulitis and abscess of unspecified site Left ankle swelling Effusion of ankle and foot joint Discoloration of skin of lower leg Dyschromia, unspecified Acute left ankle pain Blister of left lower extremity, initial encounter Localized edema Edema documented in this encounter [facility]* Diagnosis Cellulitis of skin- Primary Cellulitis and abscess of unspecified site Left ankle swelling Effusion of ankle and foot joint Discoloration of skin of lower leg Dyschromia, unspecified Acute left ankle pain Blister of left lower extremity, initial encounter documented in this encounter [facility]* Diagnosis Venous stasis ulcer of left lower leg with edema of left lower leg (HCC) (HCC)- Primary [facility]* Diagnosis Venous stasis ulcer of other part of lower leg limited to breakdown of skin, unspecified laterality, unspecified whether varicose veins present (HCC)- Primary documented in this encounter [facility] note* Diagnosis Mixed hyperlipidemia- Primary VHD (valvular [...] of skin (HCC) [facility] Diagnosis Pelvic pain- Primary UTI symptoms Other symptoms involving urinary system documented in this encounter [facility]* Diagnosis Pelvic pain documented in this encounter [facility]* Diagnosis Eye pain, bilateral- Primary [facility]* Diagnosis Urinary frequency- Primary [facility] Diagnosis Acute cough Pre-operative examination- Primary [...] unspecified, unspecified cause [facility]* Diagnosis Sciatica, right side Pre-operative examination- [...] unspecified, unspecified cause documented in this encounter [facility]* Diagnosis Mild cognitive impairment Mild cognitive [...] unspecified, unspecified cause documented in this encounter [facility]* Diagnosis Pre-operative examination- Primary Preoperative examination, [...] body region (HCC) documented in this encounter [facility] note* Diagnosis Pre-operative examination- Primary Preoperative examination, [...] fracture Senile osteoporosis documented in this encounter [facility] note* Diagnosis Pre-operative examination- Primary Preoperative examination, [...] involving cardiovascular system [facility] Diagnosis Pre-operative examination- Primary Preoperative examination, [...] Bacterial pneumonia, unspecified [facility] Additional Instructions Continue to use ice 20 minutes on, 20 minutes off. Follow-up with your orthopedic surgeon. Another orthopedic surgeon name and number has been given to you as discussed for a second option for left shoulder pain. You can take Tylenol with Mobic daily as [facility] Work Phone: Reason for referral (narrative)* Diagnostic Procedure Only (Routine) - Closed Specialty Diagnoses / Procedures Referred By Contac t Referred To Contact XR IMAGING Diagnoses Sciatica, right side Procedures XR LUMBAR GENERAL 3V AP/LAT/L5-S1 RADEX SPINE LUMBOSACRAL 2/3 VIEWS Donnell Dooley MD [address] [place] [address] Xr Imaging Referral ID Status Reason Start Date Expiration Date V isits Requested Visits Authorized [id number] Closed Auto-Generate d Referral 09/04/2021 10/04/2022 1 1 [facility] for referral (narrative)* Diagnostic Procedure Only (Routine) - Closed Specialty Diagnoses / Procedures Referred By Contac t Referred To Contact XR IMAGING Diagnoses Callus of foot Procedures XR FOOT GENERAL 3V AP/LAT/OBL RIGHT RADEX FOOT COMPLETE MINIMUM 3 VIEWS Danika Helms [address] [place] [address] [place] [address] Referral ID Status Reason Start Date Expiration Date V isits Requested Visits Authorized [id number] Closed Auto-Generate d Referral 10/06/2022 11/05/2023 1 1 [facility] for referral (narrative)* Diagnostic Procedure Only (Urgent) - Closed Specialty Diagnoses / Procedures Referred By Contac t Referred To Contact US IMAGING Diagnoses Cellulitis of skin Left ankle swelling Discoloration of skin of lower leg Acute left ankle pain Blister of left lower extremity, initial encounter Localized edema Procedures US DVT LOWER LEFT DUP-SCAN XTR VEINS UNILATERAL/LIMITED STUDY Dallas Calabrese APRN.CREDIT CORRESPONDENCE CLERK [address] [place] [address] [place] [address] Referral ID Status Reason Start Date Expiration Date V isits Requested Visits Authorized [id number] Closed Auto-Generate d Referral 04/02/2023 05/01/2024 1 1 [facility] for referral (narrative)* Diagnostic Procedure Only (Urgent) - Closed Specialty Diagnoses / Procedures Referred By Contac t Referred To Contact US IMAGING Diagnoses Cellulitis of skin Left ankle swelling Discoloration of skin of lower leg Acute left ankle pain Blister of left lower extremity, initial encounter Localized edema Procedures US DVT LOWER LEFT DUP-SCAN XTR VEINS UNILATERAL/LIMITED STUDY Dallas Calabrese APRN.CREDIT CORRESPONDENCE CLERK [address] [place] [address] Us Imaging [id number] Referral ID Status Reason Start Date Expiration Date V isits Requested Visits Authorized [id number] Closed Auto-Generate d Referral 04/02/2023 05/01/2024 1 [...] DUP-SCAN XTR VEINS UNILATERAL/LIMITED STUDY Dallas Calabrese APRN.CREDIT CORRESPONDENCE CLERK [address] [place] [address] [facility] [address] [place] [id number] Referral ID Status Reason Start Date Expiration Date Visits Requested Visits Authorized [id number] Pending Review Auto-Generat ed Referral 04/02/2023 04/01/2024 1 1 [facility] for referral (narrative)* Diagnostic Procedure Only (Routine) - Pending Review Specialty Diagnoses / Procedures Referred By Contac t Referred To Contact US IMAGING Diagnoses Urinary frequency Procedures US KIDNEY/BLADDER US RETROPERITONEAL REAL TIME W/IMAGE COMPLETE Morelia Hewitt APRN.CREDIT CORRESPONDENCE CLERK [address] [place] [address] Us Imaging [id number] Referral ID Status Reason Start Date Expiration Date Visits Requested Visits Authorized [id number] Pending Review Auto-Generat ed Referral 08/17/2023 09/15/2024 1 1 [facility] for referral (narrative)* Diagnostic Procedure Only (Routine) - Closed Specialty Diagnoses / Procedures Referred By Contac t Referred To Contact XR IMAGING Diagnoses Sciatica, right side Procedures XR LUMBAR GENERAL 3V AP/LAT/L5-S1 RADEX SPINE LUMBOSACRAL 2/3 VIEWS Soumya, Donnell J, MD [address] [place] [address] [place] [address] Referral ID Status Reason Start Date Expiration Date V isits Requested Visits Authorized [id number] Closed Auto-Generate d Referral 09/04/2021 10/04/2022 1 1 [facility] for referral (narrative)* Outpatient Procedure (Routine) - Authorized Specialty Diagnoses / Procedures Referred By Contac t Referred To Contact [facility] Diagnoses Onychomycosis Diminished pulses in lower extremity Procedures PVR ANK PRESS [facility] NON-INVAS PHYSIOLOGIC STD EXTREMITY ART 2 LEVEL Danika Helms [address] [address] [facility] [address] [place] [id number] Referral ID Status Reason Start Date Expiration Date Visits Requested Visits Authorized [id number] Authorized Auto-Generat ed Referral 02/28/2024 02/27/2025 1 1 [facility] for referral (narrative)No reason for referral information [facility] Work Phone: Reason for visit Narrative* Diagnostic Procedure Only (Urgent) - Closed Specialty Diagnoses / Procedures Referred By Contac t Referred To Contact US IMAGING Diagnoses Cellulitis of skin Left ankle swelling Discoloration of skin of lower leg Acute left ankle pain Blister of left lower extremity, initial encounter Localized edema Procedures US DVT LOWER LEFT DUP-SCAN XTR VEINS UNILATERAL/LIMITED STUDY Dallas Calabrese, RADHA.CREDIT CORRESPONDENCE CLERK [address] [place] [address] [place] [address] Referral ID Status Reason Start Date Expiration Date V isits Requested Visits Authorized [id number] Closed Auto-Generate d Referral 04/02/2023 05/01/2024 1 1 [facility] for visit Narrative* Diagnostic Procedure Only (Routine) - Closed Specialty Diagnoses / Procedures Referred By Contac t Referred To Contact XR IMAGING Diagnoses Sciatica, right side Procedures XR LUMBAR GENERAL 3V AP/LAT/L5-S1 RADEX SPINE LUMBOSACRAL 2/3 VIEWS Donnell Dooley MD [address] [place] [address] [place] [address] Referral ID Status Reason Start Date Expiration Date V isits Requested Visits Authorized [id number] Closed Auto-Generate d Referral 09/04/2021 10/04/2022 1 1 [facility] Advance Directives Documents on File Type Date Recorded Patient Supervisory Aide Expl anation Advance Directive(s) 08/17/2017 6:17 AM Documents on File Type Date Recorded Patient Supervisory Aide Expl anation Advance Directive(s) 08/17/2017 6:17 AM Advance Directive Response Recorded Date/ Time Name of Medical Power of Airport Operations Crew Member September 12, 2021 12:09pm Living Will Yes September 12, 2021 12:09pm Power of Airport Operations Crew Member Yes September 12 12:09pm Advance Directive Response Recorded Date/ Time Name of Medical Power of Airport Operations Crew Member Johanna Salas April 15, 2022 3:45pm Living Will Yes April 15 023 3:45pm Power of Airport Operations Crew Member Yes April 15, 2022 3:45pm Advance Directive Response Recorded Date/ Time Name of Medical Power of Airport Operations Crew Member johanna salas- daughter November 18, 2022 10:41am Name of Medical Power of Airport Operations Crew Member . December 04, 2022 1:36pm Living Will Yes December 04 1:36pm Power of Airport Operations Crew Member Yes December 04, 2022 1:36pm Advance Directive Response Recorded Date/ Time Do you have a Healthcare Power of Airport Operations Crew Member? Yes August 22, 2024 5:08pm Reason for Referral Specialty Diagnoses / Procedures Referred By Luis Fernando larkin Referred To Contact MR IMAGING Diagnoses Brain mass Meningioma (HCC) Procedures MRI BRAIN WO/W IVCON MRI BRAIN BRAIN STEM W/O W/CONTRAST MATERIAL Donnell Dooley MD [address] [place] [address] Mr Imaging Referral ID Status Reason Start Date Expiration Date V isits Requested Visits Authorized [id number] Closed Auto-Generate d Referral 05/06/2021 06/05/2022 1 1 Specialty Diagnoses / Procedures Referred By Contac t Referred To Contact Pain Management Diagnoses Acute midline low back pain without sciatica Procedures CONSULT TO PAIN MGT OFFICE/OUTPATIENT [facility] MDM 60-74 MINUTES Donnell Dooley MD [address] [place] [address] Referral ID Status Reason Start Date Expiration Date Visits Requested Visits Authorized [id number] Authorized PCP Requested Referral 09/12/2021 09/12/2022 1 1 Specialty Diagnoses / Procedures Referred By Contac t Referred To Contact [facility] Diagnoses Decreased strength Unsteady gait Balance problem Procedures CONSULT TO PHYSICAL THERAPY PHYSICAL THERAPY EVALUATION [facility] COMPLEX 45 MINS Donnell Dooley MD [address] [place] [address] [facility] [address] [place] [address] Referral ID Status Reason Start Date Expiration Date Visits Requested Visits Authorized [id number] Authorized PCP Requested Referral Auto-Generate d Referral 10/29/2021 10/29/2022 99 99 Specialty Diagnoses / Procedures Referred By Contac t Referred To Contact Hematology Diagnoses Small B-cell lymphoma, unspecified body region (HCC) Procedures CONSULT TO HEMATOLOGY OFFICE/OUTPATIENT [facility] MDM 60-74 MINUTES Donnell Dooley MD [address] [place] [address] Referral ID Status Reason Start Date Expiration Date Visits Requested Visits Authorized [id number] Authorized PCP Requested Referral 12/23/2022 12/23/2023 1 1 Specialty Diagnoses / Procedures Referred By Contac t Referred To Contact CT IMAGING Diagnoses Pelvic pain Procedures CT ABD/PEL WO IVCON CT ABD & PELVIS W/O CONTRAST Morelia Hewitt, OFFSET LITHOGRAPHIC PRESS OPERATOR.CREDIT CORRESPONDENCE CLERK [address] [place] [address] [place] [address] Referral ID Status Reason Start Date Expiration Date Visits Requested Visits Authorized [id number] Authorized Auto-Generat ed Referral 08/04/2023 09/02/2024 1 [...] or prosecute any alcohol or drug abuse patient.[facility] the event this information is protected by the Federal Confidentiality of Alcohol and Drug Abuse Patient Records regulations: The Federal rules restrict any use of the information to criminally investigate or prosecute any alcohol or drug abuse patient.[facility] the event this information is protected by the Federal Confidentiality of Alcohol and Drug Abuse Patient Records regulations: The Federal rules restrict any use of the information to criminally investigate or prosecute any alcohol or drug abuse patient.[facility] the event this information is protected by the Federal Confidentiality of Alcohol and Drug Abuse Patient Records regulations: The Federal rules restrict any use of the information to criminally investigate or prosecute any alcohol or drug abuse patient.[facility] the event this information is protected by the Federal Confidentiality of Alcohol and Drug Abuse Patient Records regulations: The Federal rules restrict any use of the information to criminally investigate or prosecute any alcohol or drug abuse patient.[facility] the event this information is protected by the Federal Confidentiality of Alcohol and Drug Abuse Patient Records regulations: The Federal rules restrict any use of the information to criminally investigate or prosecute any alcohol or drug abuse patient.[facility] the event this information is protected by the Federal Confidentiality of Alcohol and Drug Abuse Patient Records regulations: The Federal rules restrict any use of the information to criminally investigate or prosecute any alcohol or drug abuse patient.[facility] the event this information is protected by the Federal Confidentiality of Alcohol and Drug Abuse Patient Records regulations: The Federal rules restrict any use of the information to criminally investigate or prosecute any alcohol or drug abuse patient.[facility] the event this information is protected by the Federal Confidentiality of Alcohol and Drug Abuse Patient Records regulations: The Federal rules restrict any use of the information to criminally investigate or prosecute any alcohol or drug abuse patient.[facility] the event this information is protected by the Federal Confidentiality of Alcohol and Drug Abuse Patient Records regulations: The Federal rules restrict any use of the information to criminally investigate or prosecute any alcohol or drug abuse patient.[facility] the event this information is protected by the Federal Confidentiality of Alcohol and Drug Abuse Patient Records regulations: The Federal rules restrict any use of the information to criminally investigate or prosecute any alcohol or drug abuse patient.[facility] the event this information is protected by the Federal Confidentiality of Alcohol and Drug Abuse Patient Records regulations: The Federal rules restrict any use of the information to criminally investigate or prosecute any alcohol or drug abuse patient.[facility] the event this information is protected by the Federal Confidentiality of Alcohol and Drug Abuse Patient Records regulations: The Federal rules restrict any use of the information to criminally investigate or prosecute any alcohol or drug abuse patient.[facility] the event this information is protected by the Federal Confidentiality of Alcohol and Drug Abuse Patient Records regulations: The Federal rules restrict any use of the information to criminally investigate or prosecute any alcohol or drug abuse patient.[facility] the event this information is protected by the Federal Confidentiality of Alcohol and Drug Abuse Patient Records regulations: The Federal rules restrict any use of the information to criminally investigate or prosecute any alcohol or drug abuse patient.[facility] HospitalIn the event this information is protected by the Federal Confidentiality of Alcohol and Drug Abuse Patient Records regulations: The Federal rules restrict any use of the information to criminally investigate or prosecute any alcohol or drug abuse patient.[facility] HospitalIn the event this information is protected by the Federal Confidentiality of Alcohol and Drug Abuse Patient Records regulations: The Federal rules restrict any use of the information to criminally investigate or prosecute any alcohol or drug abuse patient.[facility] HospitalIn the event this information is protected by the Federal Confidentiality of Alcohol and Drug Abuse Patient Records regulations: The Federal rules restrict any use of the information to criminally investigate or prosecute any alcohol or drug abuse patient.[facility] HospitalIn the event this information is protected by the Federal Confidentiality of Alcohol and Drug Abuse Patient Records regulations: The Federal rules restrict any use of the information to criminally investigate or prosecute any alcohol or drug abuse patient.[facility] HospitalIn the event this information is protected by the Federal Confidentiality of Alcohol and Drug Abuse Patient Records regulations: The Federal rules restrict any use of the information to criminally investigate or prosecute any alcohol or drug abuse patient.[facility] HospitalIn the event this information is protected by the Federal Confidentiality of Alcohol and Drug Abuse Patient Records regulations: The Federal rules restrict any use of the information to criminally investigate or prosecute any alcohol or drug abuse patient.[facility] HospitalIn the event this information is protected by the Federal Confidentiality of Alcohol and Drug Abuse Patient Records regulations: The Federal rules restrict any use of the information to criminally investigate or prosecute any alcohol or drug abuse patient.[facility] HospitalIn the event this information is protected by the Federal Confidentiality of Alcohol and Drug Abuse Patient Records regulations: The Federal rules restrict any use of the information to criminally investigate or prosecute any alcohol or drug abuse patient.[facility] HospitalIn the event this information is protected by the Federal Confidentiality of Alcohol and Drug Abuse Patient Records regulations: The Federal rules restrict any use of the information to criminally investigate or prosecute any alcohol or drug abuse patient.[facility] HospitalIn the event this information is protected by the Federal Confidentiality of Alcohol and Drug Abuse Patient Records regulations: The Federal rules restrict any use of the information to criminally investigate or prosecute any alcohol or drug abuse patient.[facility] HospitalIn the event this information is protected by the Federal Confidentiality of Alcohol and Drug Abuse Patient Records regulations: The Federal rules restrict any use of the information to criminally investigate or prosecute any alcohol or drug abuse patient.[facility] HospitalIn the event this information is protected by the Federal Confidentiality of Alcohol and Drug Abuse Patient Records regulations: The Federal rules restrict any use of the information to criminally investigate or prosecute any alcohol or drug abuse patient.[facility] HospitalIn the event this information is protected by the Federal Confidentiality of Alcohol and Drug Abuse Patient Records regulations: The Federal rules restrict any use of the information to criminally investigate or prosecute any alcohol or drug abuse patient.[facility] HospitalIn the event this information is protected by the Federal Confidentiality of Alcohol and Drug Abuse Patient Records regulations: The Federal rules restrict any use of the information to criminally investigate or prosecute any alcohol or drug abuse patient.[facility] HospitalIn the event this information is protected by the Federal Confidentiality of Alcohol and Drug Abuse Patient Records regulations: The Federal rules restrict any use of the information to criminally investigate or prosecute any alcohol or drug abuse patient.[facility] HospitalIn the event this information is protected by the Federal Confidentiality of Alcohol and Drug Abuse Patient Records regulations: The Federal rules restrict any use of the information to criminally investigate or prosecute any alcohol or drug abuse patient.[facility] HospitalIn the event this information is protected by the Federal Confidentiality of Alcohol and Drug Abuse Patient Records regulations: The Federal rules restrict any use of the information to criminally investigate or prosecute any alcohol or drug abuse patient.[facility] HospitalIn the event this information is protected by the Federal Confidentiality of Alcohol and Drug Abuse Patient Records regulations: The Federal rules restrict any use of the information to criminally investigate or prosecute any alcohol or drug abuse patient.[facility] HospitalIn the event this information is protected by the Federal Confidentiality of Alcohol and Drug Abuse Patient Records regulations: The Federal rules restrict any use of the information to criminally investigate or prosecute any alcohol or drug abuse patient.[facility] HospitalIn the event this information is protected by the Federal Confidentiality of Alcohol and Drug Abuse Patient Records regulations: The Federal rules restrict any use of the information to criminally investigate or prosecute any alcohol or drug abuse patient.[facility] HospitalIn the event this information is protected by the Federal Confidentiality of Alcohol and Drug Abuse Patient Records regulations: The Federal rules restrict any use of the information to criminally investigate or prosecute any alcohol or drug abuse patient.[facility] HospitalIn the event this information is protected by the Federal Confidentiality of Alcohol and Drug Abuse Patient Records regulations: The Federal rules restrict any use of the information to criminally investigate or prosecute any alcohol or drug abuse patient.[facility] HospitalIn the event this information is protected by the Federal Confidentiality of Alcohol and Drug Abuse Patient Records regulations: The Federal rules restrict any use of the information to criminally investigate or prosecute any alcohol or drug abuse patient.[facility] the event this information is protected by the Federal Confidentiality of Alcohol and Drug Abuse Patient Records regulations: The Federal rules restrict any use of the information to criminally investigate or prosecute any alcohol or drug abuse patient.[facility] HospitalIn the event this information is protected by the Federal Confidentiality of Alcohol and Drug Abuse Patient Records regulations: The Federal rules restrict any use of the information to criminally investigate or prosecute any alcohol or drug abuse patient.[facility] HospitalIn the event this information is protected by [...] or prosecute any alcohol or drug abuse patient.[facility] HospitalIn the event this information is protected by the Federal Confidentiality of Alcohol and Drug Abuse Patient Records regulations: The Federal rules restrict any use of the information to criminally investigate or prosecute any alcohol or drug abuse patient.[facility] HospitalIn the event this information is protected by the Federal Confidentiality of Alcohol and Drug Abuse Patient Records regulations: The Federal rules restrict any use of the information to criminally investigate or prosecute any alcohol or drug abuse patient.[facility] HospitalIn the event this information is protected by the Federal Confidentiality of Alcohol and Drug Abuse Patient Records regulations: The Federal rules restrict any use of the information to criminally investigate or prosecute any alcohol or drug abuse patient.[facility] HospitalIn the event this information is protected by the Federal Confidentiality of Alcohol and Drug Abuse Patient Records regulations: The Federal rules restrict any use of the information to criminally investigate or prosecute any alcohol or drug abuse patient.[facility] HospitalIn the event this information is protected by the Federal Confidentiality of Alcohol and Drug Abuse Patient Records regulations: The Federal rules restrict any use of the information to criminally investigate or prosecute any alcohol or drug abuse patient.[facility] HospitalIn the event this information is protected by the Federal Confidentiality of Alcohol and Drug Abuse Patient Records regulations: The Federal rules restrict any use of the information to criminally investigate or prosecute any alcohol or drug abuse patient.[facility] HospitalIn the event this information is protected by the Federal Confidentiality of Alcohol and Drug Abuse Patient Records regulations: The Federal rules restrict any use of the information to criminally investigate or prosecute any alcohol or drug abuse patient.[facility] HospitalIn the event this information is protected by the Federal Confidentiality of Alcohol and Drug Abuse Patient Records regulations: The Federal rules restrict any use of the information to criminally investigate or prosecute any alcohol or drug abuse patient.[facility] HospitalIn the event this information is protected by the Federal Confidentiality of Alcohol and Drug Abuse Patient Records regulations: The Federal rules restrict any use of the information to criminally investigate or prosecute any alcohol or drug abuse patient.[facility] HospitalIn the event this information is protected by the Federal Confidentiality of Alcohol and Drug Abuse Patient Records regulations: The Federal rules restrict any use of the information to criminally investigate or prosecute any alcohol or drug abuse patient.[facility] HospitalIn the event this information is protected by the Federal Confidentiality of Alcohol and Drug Abuse Patient Records regulations: The Federal rules restrict any use of the information to criminally investigate or prosecute any alcohol or drug abuse patient.[facility] HospitalIn the event this information is protected by the Federal Confidentiality of Alcohol and Drug Abuse Patient Records regulations: The Federal rules restrict any use of the information to criminally investigate or prosecute any alcohol or drug abuse patient.[facility] HospitalIn the event this information is protected by the Federal Confidentiality of Alcohol and Drug Abuse Patient Records regulations: The Federal rules restrict any use of the information to criminally investigate or prosecute any alcohol or drug abuse patient.[facility] HospitalIn the event this information is protected by the Federal Confidentiality of Alcohol and Drug Abuse Patient Records regulations: The Federal rules restrict any use of the information to criminally investigate or prosecute any alcohol or drug abuse patient.[facility] HospitalIn the event this information is protected by the Federal Confidentiality of Alcohol and Drug Abuse Patient Records regulations: The Federal rules restrict any use of the information to criminally investigate or prosecute any alcohol or drug abuse patient.[facility] HospitalIn the event this information is protected by the Federal Confidentiality of Alcohol and Drug Abuse Patient Records regulations: The Federal rules restrict any use of the information to criminally investigate or prosecute any alcohol or drug abuse patient.[facility] HospitalIn the event this information is protected by the Federal Confidentiality of Alcohol and Drug Abuse Patient Records regulations: The Federal rules restrict any use of the information to criminally investigate or prosecute any alcohol or drug abuse patient.[facility] HospitalIn the event this information is protected by the Federal Confidentiality of Alcohol and Drug Abuse Patient Records regulations: The Federal rules restrict any use of the information to criminally investigate or prosecute any alcohol or drug abuse patient.[facility] HospitalIn the event this information is protected by the Federal Confidentiality of Alcohol and Drug Abuse Patient Records regulations: The Federal rules restrict any use of the information to criminally investigate or prosecute any alcohol or drug abuse patient.[facility] HospitalIn the event this information is protected by the Federal Confidentiality of Alcohol and Drug Abuse Patient Records regulations: The Federal rules restrict any use of the information to criminally investigate or prosecute any alcohol or drug abuse patient.[facility] HospitalIn the event this information is protected by the Federal Confidentiality of Alcohol and Drug Abuse Patient Records regulations: The Federal rules restrict any use of the information to criminally investigate or prosecute any alcohol or drug abuse patient.[facility] HospitalIn the event this information is protected by the Federal Confidentiality of Alcohol and Drug Abuse Patient Records regulations: The Federal rules restrict any use of the information to criminally investigate or prosecute any alcohol or drug abuse patient.[facility] HospitalIn the event this information is protected by the Federal Confidentiality of Alcohol and Drug Abuse Patient Records regulations: The Federal rules restrict any use of the information to criminally investigate or prosecute any alcohol or drug abuse patient.[facility] HospitalIn the event this information is protected by the Federal Confidentiality of Alcohol and Drug Abuse Patient Records regulations: The Federal rules restrict any use of the information to criminally investigate or prosecute any alcohol or drug abuse patient.[facility] HospitalIn the event this information is protected by the Federal Confidentiality of Alcohol and Drug Abuse Patient Records regulations: The Federal rules restrict any use of the information to criminally investigate or prosecute any alcohol or drug abuse patient.[facility] HospitalIn the event this information is protected by the Federal Confidentiality of Alcohol and Drug Abuse Patient Records regulations: The Federal rules restrict any use of the information to criminally investigate or prosecute any alcohol or drug abuse patient.[facility] HospitalIn the event this information is protected by the Federal Confidentiality of Alcohol and Drug Abuse Patient Records regulations: The Federal rules restrict any use of the information to criminally investigate or prosecute any alcohol or drug abuse patient.[facility] HospitalIn the event this information is protected by the Federal Confidentiality of Alcohol and Drug Abuse Patient Records regulations: The Federal rules restrict any use of the information to criminally investigate or prosecute any alcohol or drug abuse patient.[facility] HospitalIn the event this information is protected by the Federal Confidentiality of Alcohol and Drug Abuse Patient Records regulations: The Federal rules restrict any use of the information to criminally investigate or prosecute any alcohol or drug abuse patient.[facility] HospitalIn the event this information is protected by the Federal Confidentiality of Alcohol and Drug Abuse Patient Records regulations: The Federal rules restrict any use of the information to criminally investigate or prosecute any alcohol or drug abuse patient.[facility] HospitalIn the event this information is protected by the Federal Confidentiality of Alcohol and Drug Abuse Patient Records regulations: The Federal rules restrict any use of the information to criminally investigate or prosecute any alcohol or drug abuse patient.[facility] HospitalIn the event this information is protected by the Federal Confidentiality of Alcohol and Drug Abuse Patient Records regulations: The Federal rules restrict any use of the information to criminally investigate or prosecute any alcohol or drug abuse patient.[facility] HospitalIn the event this information is protected by the Federal Confidentiality of Alcohol and Drug Abuse Patient Records regulations: The Federal rules restrict any use of the information to criminally investigate or prosecute any alcohol or drug abuse patient.[facility] HospitalIn the event this information is protected by the Federal Confidentiality of Alcohol and Drug Abuse Patient Records regulations: The Federal rules restrict any use of the information to criminally investigate or prosecute any alcohol or drug abuse patient.[facility] HospitalIn the event this information is protected by the Federal Confidentiality of Alcohol and Drug Abuse Patient Records regulations: The Federal rules restrict any use of the information to criminally investigate or prosecute any alcohol or drug abuse patient.[facility] HospitalIn the event this information is protected by the Federal Confidentiality of Alcohol and Drug Abuse Patient Records regulations: The Federal rules restrict any use of the information to criminally investigate or prosecute any alcohol or drug abuse patient.[facility] HospitalIn the event this information is protected by the Federal Confidentiality of Alcohol and Drug Abuse Patient Records regulations: The Federal rules restrict any use of the information to criminally investigate or prosecute any alcohol or drug abuse patient.[facility] HospitalIn the event this information is protected by the Federal Confidentiality of Alcohol and Drug Abuse Patient Records regulations: The Federal rules restrict any use of the information to criminally investigate or prosecute any alcohol or drug abuse patient.[facility] HospitalIn the event this information is protected by the Federal Confidentiality of Alcohol and Drug Abuse Patient Records regulations: The Federal rules restrict any use of the information to criminally investigate or prosecute any alcohol or drug abuse patient.[facility] HospitalIn the event this information is protected by the Federal Confidentiality of Alcohol and Drug Abuse Patient Records regulations: The Federal rules restrict any use of the information to criminally investigate or prosecute any alcohol or drug abuse patient.[facility] HospitalIn the event this information is protected by the Federal Confidentiality of Alcohol and Drug Abuse Patient Records regulations: The Federal rules restrict any use of the information to criminally investigate or prosecute any alcohol or drug abuse patient.[facility] HospitalIn the event this information is protected by the Federal Confidentiality of Alcohol and Drug Abuse Patient Records regulations: The Federal rules restrict any use of the information to criminally investigate or prosecute any alcohol or drug abuse patient.[facility] HospitalIn the event this information is protected by the Federal Confidentiality of Alcohol and Drug Abuse Patient Records regulations: The Federal rules restrict any use of the information to criminally investigate or prosecute any alcohol or drug abuse patient.[facility] HospitalIn the event this information is protected by the Federal Confidentiality of Alcohol and Drug Abuse Patient Records regulations: The Federal rules restrict any use of the information to criminally investigate or prosecute any alcohol or drug abuse patient.[facility] HospitalIn the event this information is protected by the Federal Confidentiality of Alcohol and Drug Abuse Patient Records regulations: The Federal rules restrict any use of the information to criminally investigate or prosecute any alcohol or drug abuse patient.[facility] HospitalIn the event this information is protected by the Federal Confidentiality of Alcohol and Drug Abuse Patient Records regulations: The Federal rules restrict any use of the information to criminally investigate or prosecute any alcohol or drug abuse patient.[facility] HospitalIn the event this information is protected by the Federal Confidentiality of Alcohol and Drug Abuse Patient Records regulations: The Federal rules restrict any use of the information to criminally investigate or prosecute any alcohol or drug abuse patient.[facility] HospitalIn the event this information is protected by the Federal Confidentiality of Alcohol and Drug Abuse Patient Records regulations: The Federal rules restrict any use of the information to criminally investigate or prosecute any alcohol or drug abuse patient.[facility] Care Teams (unrecognized sec tion and content) Physician General Internal Medicine Relationship Specialty Start Date End Date Donnell Dooley MD [address] [place], [place] [id number] PCP - General Family Practice 05/11/16 Dennis Mendosa [address] [place] [id number] Ent - Otolaryngology 03/30/18 Physician General Internal Medicine Relationship Specialty Start Date End Date Donnell Dooley MD [address] [facility] [place] [place] [address] PCP - General Family Practice 05/11/16 Dennis Mendosa [address] [place] [address] Ent - Otolaryngology 03/30/18 Physician General Internal Medicine Relationship Specialty Start Date End Date Donnell Dooley MD [address] [place] [address] PCP - General Family Practice 05/11/16 Dennis Mendosa [address] [place] [address] Ent - Otolaryngology 03/30/18 Physician General Internal Medicine Relationship Specialty Start Date End Date Donnell Dooley MD [address] [place] [address] PCP - General Family Practice 05/11/16 Dennis Mendosa [address] [place] [address] Ent - Otolaryngology 03/30/18 Physician General Internal Medicine Relationship Specialty Start Date End Date Donnell Dooley MD [address] [place] [address] PCP - General Family Practice 05/11/16 Dennis Mendosa [address] [place] [address] Ent - Otolaryngology 03/30/18 Physician General Internal Medicine Relationship Specialty Start Date End Date Donnell Dooley MD [address] [place] [address] PCP - General Family Practice 05/11/16 Dennis Mendosa [address] [place] [address] Ent - Otolaryngology 03/30/18 Physician General Internal Medicine Relationship Specialty Start Date End Date Donnell Dooley MD [address] [place] [address] PCP - General Family Practice 05/11/16 Dennis Mendosa [address] [place] [address] Ent - Otolaryngology 03/30/18 Physician General Internal Medicine Relationship Specialty Start Date End Date Donnell Dooley MD [address] [place] [address] PCP - General Family Practice 05/11/16 Dennis Mendosa [address] [place] [address] Ent - Otolaryngology 03/30/18 Physician General Internal Medicine Relationship Specialty Start Date End Date Donnell Dooley MD [address] [place] [address] PCP - General Family Practice 05/11/16 Dennis Mendosa [address] [place] [address] Ent - Otolaryngology 03/30/18 Physician General Internal Medicine Relationship Specialty Start Date End Date Donnell Dooley MD [address] [place] [address] PCP - General Family Practice 05/11/16 Dennis Mendosa [address] [place] [address] Ent - Otolaryngology 03/30/18 Physician General Internal Medicine Relationship Specialty Start Date End Date Donnell Dooley MD [address] [place] [address] PCP - General Family Practice 05/11/16 Dennis Mendosa [address] [place] [address] Ent - Otolaryngology 03/30/18 Physician General Internal Medicine Relationship Specialty Start Date End Date Donnell Dooley MD [address] [place] [address] PCP - General Family Practice 05/11/16 Dennis Mendosa [address] [place] [address] Ent - Otolaryngology 03/30/18 Physician General Internal Medicine Relationship Specialty Start Date End Date Donnell Dooley MD [address] [place] [address] PCP - General Family Practice 05/11/16 Dennis Mendosa [address] [place] [address] Ent - Otolaryngology 03/30/18 Physician General Internal Medicine Relationship Specialty Start Date End Date Donnell Dooley MD [address] [place] [address] PCP - General Family Medicine 05/11/16 Dennis Mendosa [address] [place] [address] Ent - Otolaryngology 03/30/18 Physician General Internal Medicine Relationship Specialty Start Date End Date Donnell Dooley MD [address] [place] [address] PCP - General Family Medicine 05/11/16 Dennis Mendosa [address] [place] [address] Ent - Otolaryngology 03/30/18 Physician General Internal Medicine Relationship Specialty Start Date End Date Donnell Dooley MD [address] [place] [address] PCP - General Family Medicine 05/11/16 Dennis Mendosa [address] [place] [address] Ent - Otolaryngology 03/30/18 Physician General Internal Medicine Relationship Specialty Start Date End Date Donnell Dooley MD [address] [place] [address] PCP - General Family Medicine 05/11/16 Dennis Mendosa [address] [place] [address] Ent - Otolaryngology 03/30/18 Physician General Internal Medicine Relationship Specialty Start Date End Date Donnell Dooley MD [address] [place] [address] PCP - General Family Medicine 05/11/16 Dennis Mendosa [address] [place] [address] Ent - Otolaryngology 03/30/18 Physician General Internal Medicine Relationship Specialty Start Date End Date Donnell Dooley MD [address] [place] [address] PCP - General Family Medicine 05/11/16 Dennis Mendosa [address] [place] [address] Ent - Otolaryngology 03/30/18 Physician General Internal Medicine Relationship Specialty Start Date End Date Donnell Dooley MD [address] [place] [address] PCP - General Family Medicine 05/11/16 Dennis Mendosa [address] [place] [address] Ent - Otolaryngology 03/30/18 Team Status: Active Member Role Status Dates Dr. Donnell Dooley MD Family Provider Active Dr. Donnell Dooley MD Primary Care Provider Active Team Status: Inactive Member Role Status Dates Dr. Donnell Dooley MD Primary Care Provider, Referring Provider Active Sheba Damian JET BLADE POLISHER, JET BLADE POLISHER-C Attending Provider Active Team Status: Inactive Member Role Status Dates Dr. Donnell Dooley MD Primary Care Provider Active Dr. Jess Kendrick MD Emergency Provider Active Physician General Internal Medicine Relationship Specialty Start Date End Date Donnell Dooley MD [address] [place] [address] PCP - General Family Medicine 05/11/16 Dennis Mendosa [address] [place] [address] Ent - Otolaryngology 03/30/18 Physician General Internal Medicine Relationship Specialty Start Date End Date Donnell Dooley MD [address] [place] [address] PCP - General Family Medicine 05/11/16 Dennis Mendosa [address] [place] [address] Ent - Otolaryngology 03/30/18 Physician General Internal Medicine Relationship Specialty Start Date End Date Donnell Dooley MD [address] [place] [address] PCP - General Family Medicine 05/11/16 Dennis Mendosa [address] [place] [address] Ent - Otolaryngology 03/30/18 Physician General Internal Medicine Relationship Specialty Start Date End Date Donnell Dooley MD [address] [place], [place] 898991 PCP - General Family Medicine 05/11/16 Dennis Mendosa [address] [place] [address] Ent - Otolaryngology 03/30/18 Physician General Internal Medicine Relationship Specialty Start Date End Date Donnell Dooley MD [address] [place], [place] 664211 PCP - General Family Medicine 05/11/16 Dennis Mendosa [address] [place] [address] Ent - Otolaryngology 03/30/18 Physician General Internal Medicine Relationship Specialty Start Date End Date Donnell Dooley MD [address] [place], [place] 767371 PCP - General Family Medicine 05/11/16 Dennis Mendosa [address] [place] [address] Ent - Otolaryngology 03/30/18 Physician General Internal Medicine Relationship Specialty Start Date End Date Donnell Dooley MD [address] [place], [place] 684961 PCP - General Family Medicine 05/11/16 Dennis Mendosa [address] [place] [address] Ent - Otolaryngology 03/30/18 Physician General Internal Medicine Relationship Specialty Start Date End Date Donnell Dooley MD [address] [place] [address] PCP - General Family Medicine 05/11/16 Dennis Mendosa [address] [place] [address] Ent - Otolaryngology 03/30/18 Physician General Internal Medicine Relationship Specialty Start Date End Date Donnell Dooley MD [address] [place], [place] 705821 PCP - General Family Medicine 05/11/16 Dennis Mendosa [address] [place] [address] Ent - Otolaryngology 03/30/18 Physician General Internal Medicine Relationship Specialty Start Date End Date Donnell Dooley MD [address] [place], [place] 645271 PCP - General Family Medicine 05/11/16 Dennis Mendosa [address] [place] [address] Ent - Otolaryngology 03/30/18 Physician General Internal Medicine Relationship Specialty Start Date End Date Donnell Dooley MD [address] [place], [place] 367151 PCP - General Family Medicine 05/11/16 Dennis Mendosa [address] [place] [phone] Ent - Otolaryngology 03/30/18 Physician General Internal Medicine Relationship Specialty Start Date End Date Donnell Dooley MD [address] [place] [address] PCP - General Family Medicine 05/11/16 Dennis Mendosa [address] [place] [address] Ent - Otolaryngology 03/30/18 Physician General Internal Medicine Relationship Specialty Start Date End Date Donnell Dooley MD [address] [place], [place] 992271 PCP - General Family Medicine 05/11/16 Dennis Mendosa [address] [place] [address] Ent - Otolaryngology 03/30/18 Physician General Internal Medicine Relationship Specialty Start Date End Date Donnell Dooley MD [address] [place], [place] 792451 PCP - General Family Medicine 05/11/16 Dennis Mendosa [address] [place] [address] Ent - Otolaryngology 03/30/18 Physician General Internal Medicine Relationship Specialty Start Date End Date Donnell Dooley MD [address] [place], [place] 463801 PCP - General Family Medicine 05/11/16 Dennis Mendosa [address] [place] [address] Ent - Otolaryngology 03/30/18 Physician General Internal Medicine Relationship Specialty Start Date End Date Donnell Dooley MD [address] [place] [address] PCP - General Family Medicine 05/11/16 Dennis Mendosa [address] [place] [address] Ent - Otolaryngology 03/30/18 Team Status: Inactive Member Role Status Dates Dr. Donnlel Dooley MD Primary Care Provider, Referring Provider Active Dr. Conrad Antunez , DO Attending Provider Active Team Status: Inactive Member Role Status Dates Dr. Donnell Dooley MD Primary Care Provider Active Dr. Ponce Wang , DO Attending Provider, Emergency Provider Active Team Status: Inactive Member Role Status Dates Dr. Donnell Dooley MD Primary Care Provider Active Dr. Sav Carter , Emergency Provider Active Physician General Internal Medicine Relationship Specialty Start Date End Date Donnell Dooley MD [address] [place], [place] 271371 PCP - General Family Medicine 05/11/16 Dennis Mendosa [address] [place] [address] Ent - Otolaryngology 03/30/18 Physician General Internal Medicine Relationship Specialty Start Date End Date Donnell Dooley MD [address] [place], [place] 941781 PCP - General Family Medicine 05/11/16 Dennis Mendosa [address] [place] [address] Ent - Otolaryngology 03/30/18 Physician General Internal Medicine Relationship Specialty Start Date End Date Donnell Dooley MD [address] [place], [place] 737561 PCP - General Family Medicine 05/11/16 Dennis Mendosa [address] [place] [address] Ent - Otolaryngology 03/30/18 Physician General Internal Medicine Relationship Specialty Start Date End Date Donnell Dooley MD [address] [facility] [place] [address] PCP - General Family Medicine 05/11/16 Dennis Mendosa [address] [place] [phone] Ent - Otolaryngology 03/30/18 Margarito Shields MD [address] [facility] [place] [address] [phone] Hematology/Oncology 01/28/23 Physician General Internal Medicine Relationship Specialty Start Date End Date Donnell Dooley MD [address] [facility] [place] 672491 PCP - General Family Medicine 05/11/16 Dennis Mendosa [address] [place] [phone] Ent - Otolaryngology 03/30/18 Margarito Shields MD [address] [address] Hematology/Oncology 01/28/23 Physician General Internal Medicine Relationship Specialty Start Date End Date Donnell Dooley MD [address] [place] [address] PCP - General Family Medicine 05/11/16 Denins Mendosa [address] [place] [address] Ent - Otolaryngology 03/30/18 Margarito Shields MD [address] [place] [address] Hematology/Oncology 01/28/23 Physician General Internal Medicine Relationship Specialty Start Date End Date Donnell Dooley MD [address] [place] [address] PCP - General Family Medicine 05/11/16 Dennis Mendosa [address] [place] [address] Ent - Otolaryngology 03/30/18 Margarito Shields MD [address] [place] 188370 [phone] Hematology/Oncology 01/28/23 Physician General Internal Medicine Relationship Specialty Start Date End Date Donnell Dooley MD [address] [place] [address] PCP - General Family Medicine 05/11/16 Dennis Mendosa [address] [place] [address] Ent - Otolaryngology 03/30/18 Margarito Shields MD [address] [place] [address] Hematology/Oncology 01/28/23 Physician General Internal Medicine Relationship Specialty Start Date End Date Donnell Dooley MD [address] [place] [address] PCP - General Family Medicine 05/11/16 Dennis Mendosa [address] [place] [address] Ent - Otolaryngology 03/30/18 Margarito Shields MD [address] [place] [address] Hematology/Oncology 01/28/23 Physician General Internal Medicine Relationship Specialty Start Date End Date Donnell Dooley MD [address] [place] [address] PCP - General Family Medicine 05/11/16 Dennis Mendosa [address] [place] [address] Ent - Otolaryngology 03/30/18 Margarito Shields MD [address] [place] [address] Hematology/Oncology 01/28/23 Physician General Internal Medicine Relationship Specialty Start Date End Date Donnell Dooley MD [address] [place] [place] [address] PCP - General Family Medicine 05/11/16 Dennis Mendosa [address] [place] [address] Ent - Otolaryngology 03/30/18 Margarito Shields MD [address] [place], [place] 983947 [phone] Hematology/Oncology 01/28/23 Physician General Internal Medicine Relationship Specialty Start Date End Date Donnell Dooley MD [address] [place] [address] PCP - General Family Medicine 05/11/16 Dennis Mendosa [address] [place] [address] Ent - Otolaryngology 03/30/18 Margarito Shields MD [address] [place] [address] Hematology/Oncology 01/28/23 Physician General Internal Medicine Relationship Specialty Start Date End Date Donnell Dooley MD [address] [place] [address] PCP - General Family Medicine 05/11/16 Dennis Mendosa [address] [place] [address] Ent - Otolaryngology 03/30/18 Margarito Shields MD [address] [place] [address] Hematology/Oncology 01/28/23 Physician General Internal Medicine Relationship Specialty Start Date End Date Donnell Dooley MD [address] [place] [address] PCP - General Family Medicine 05/11/16 Dennis Mendosa [address] [place] [address] Ent - Otolaryngology 03/30/18 Margarito Shields MD [address] [place] [address] Hematology/Oncology 01/28/23 Physician General Internal Medicine Relationship Specialty Start Date End Date Donnell Dooley MD [address] [place] [address] PCP - General Family Medicine 05/11/16 Dennis Mendosa [address] [place] [address] Ent - Otolaryngology 03/30/18 Margarito Shields MD [address] [place] [address] Hematology/Oncology 01/28/23 Physician General Internal Medicine Relationship Specialty Start Date End Date Donnell Dooley MD [address] [place] [address] PCP - General Family Medicine 05/11/16 Dennis Mendosa [address] [place] [address] Ent - Otolaryngology 03/30/18 Margarito Shields MD [address] [place] [address] Hematology/Oncology 01/28/23 Physician General Internal Medicine Relationship Specialty Start Date End Date Donnell Dooley MD [address] [place] [address] PCP - General Family Medicine 05/11/16 Dennis Mendosa [address] [place] [address] Ent - Otolaryngology 03/30/18 Margarito Shields MD [address] [place] [address] Hematology/Oncology 01/28/23 Physician General Internal Medicine Relationship Specialty Start Date End Date Donnell Dooley MD [address] [place] [address] PCP - General Family Medicine 05/11/16 Dennis Mendosa [address] [place] [address] Ent - Otolaryngology 03/30/18 Margarito Shields MD [address] [place], [place] 9[address]75 [phone] Hematology/Oncology 01/28/23 Physician General Internal Medicine Relationship Specialty Start Date End Date Donnell Dooley MD [address] [place] [address] PCP - General Family Medicine 05/11/16 Dennis Mendosa [address] [place] [address] Ent - Otolaryngology 03/30/18 Margarito Shields MD [address] [place] [address] Hematology/Oncology 01/28/23 Physician General Internal Medicine Relationship Specialty Start Date End Date Donnell Dooley MD [address] [place], [place] 217751 PCP - General Family Medicine 05/11/16 Dennis Mendosa [address] [place] [address] Ent - Otolaryngology 03/30/18 Physician General Internal Medicine Relationship Specialty Start Date End Date Donnell Dooley MD [address] [place], [place] 001071 PCP - General Family Medicine 05/11/16 Dennis Mendosa [address] [place] [address] Ent - Otolaryngology 03/30/18 Physician General Internal Medicine Relationship Specialty Start Date End Date Donnell Dooley MD [address] [place], [place] 22238691 PCP - General Family Medicine 05/11/16 Dennis Mendosa [address] [place] [address] Ent - Otolaryngology 03/30/18 Physician General Internal Medicine Relationship Specialty Start Date End Date Donnell Dooley MD [address] [place], [place] 23742691 PCP - General Family Medicine 05/11/16 Dennis Mendosa [address] [place] [address] Ent - Otolaryngology 03/30/18 Margarito Shields MD [address] [place], [place] [address] [phone] Hematology/Oncology 01/28/23 Physician General Internal Medicine Relationship Specialty Start Date End Date Donnell Dooley MD [address] [place] [address] PCP - General Family Medicine 05/11/16 Dennis Mendosa [address] [place] [address] Ent - Otolaryngology 03/30/18 Margarito Shields MD [address] [place] [address] Hematology/Oncology 01/28/23 Physician General Internal Medicine Relationship Specialty Start Date End Date Donnell Dooley MD [address] [place] [address] PCP - General Family Medicine 05/11/16 Dennis Mendosa [address] [place] [phone] Ent - Otolaryngology 03/30/18 Margarito Shields MD [address] [place] [address] Hematology/Oncology 01/28/23 Morelia Hewitt APRN.CREDIT CORRESPONDENCE CLERK [address] [place] [address] Trustee [employer] Estate Family [facility] 01/31/24 Amber Griffith APRN.CREDIT CORRESPONDENCE CLERK [address] [place] [address] Trustee [employer] Family Medicine 01/31/24 Physician General Internal Medicine Relationship Specialty Start Date End Date Donnell Dooley MD [address] [place], [place] 675631 PCP - General Family Medicine 05/11/16 Dennis Mendosa [address] [place] [address] Ent - Otolaryngology 03/30/18 Margarito Shields MD [address] [place] [address] Hematology/Oncology 01/28/23 Morelia Hewitt, OFFSET LITHOGRAPHIC PRESS OPERATOR.CREDIT CORRESPONDENCE CLERK [address] [place] [address] [facility] 01/31/24 Amber Griffith OFFSET LITHOGRAPHIC PRESS OPERATOR.CREDIT CORRESPONDENCE CLERK [address] [place] [address] [facility] 01/31/24 Physician General Internal Medicine Relationship Specialty Start Date End Date Donnell Dooley MD [address] [place] [address] PCP - General Family Medicine 05/11/16 Dennis Mendosa [address] [place] [address] Ent - Otolaryngology 03/30/18 Margarito Shields MD [address] [place] [address] Hematology/Oncology 01/28/23 Morelia Hewitt, OFFSET LITHOGRAPHIC PRESS OPERATOR.CREDIT CORRESPONDENCE CLERK [address] [place] [address] [facility] 01/31/24 Amber Griffith OFFSET LITHOGRAPHIC PRESS OPERATOR.CREDIT CORRESPONDENCE CLERK [address] [place] [address] [facility] 01/31/24 Physician General Internal Medicine Relationship Specialty Start Date End Date Donnell Dooley MD [address] [place] [address] PCP - General Family Medicine 05/11/16 Dennis Mendosa [address] [place] [address] Ent - Otolaryngology 03/30/18 Margarito Shields MD [address] [place] [address] Hematology/Oncology 01/28/23 Morelia Hewitt APRN.CREDIT CORRESPONDENCE CLERK [address] [place] [address] [facility] 01/31/24 Amber Griffith OFFSET LITHOGRAPHIC PRESS OPERATOR.CREDIT CORRESPONDENCE CLERK [address] [place] [address] [facility] 01/31/24 Physician General Internal Medicine Relationship Specialty Start Date End Date Donnell Dooley MD [address] [place] [address] PCP - General Family Medicine 05/11/16 Dennis Mendosa [address] [place] [address] Ent - Otolaryngology 03/30/18 Margarito Shields MD [address] [place] [address] Hematology/Oncology 01/28/23 Morelia Hewitt APRN.CREDIT CORRESPONDENCE CLERK [address] [facility] [place] [address] Trustee Of Estate Family [facility] 01/31/24 Amber Griffith APRN.CREDIT CORRESPONDENCE CLERK [address] [place] [address] [facility] 01/31/24 Physician General Internal Medicine Relationship Specialty Start Date End Date Donnell Dooley MD [address] [facility] [place] [address] PCP - General Family Medicine 05/11/16 Dennis Mendosa [address] [facility] [place] [address] Ent - Otolaryngology 03/30/18 Margarito Shields MD [address] [place] [address] Hematology/Oncology 01/28/23 Morelia Hewitt, OFFSET LITHOGRAPHIC PRESS OPERATOR.CREDIT CORRESPONDENCE CLERK [address] [facility] [place] [address] [facility] 01/31/24 Amber Griffith APRN.CREDIT CORRESPONDENCE CLERK [address] [facility] [place] [address] Trustee Of Estate Family [facility] 01/31/24 Physician General Internal Medicine Relationship Specialty Start Date End Date Donnell Dooley MD [address] [place] [address] PCP - General Family Medicine 05/11/16 Dennis Mendosa [address] [place] [address] Ent - Otolaryngology 03/30/18 Margarito Shields MD [address] [place] [address] Hematology/Oncology 01/28/23 Morelia Hewitt APRN.CREDIT CORRESPONDENCE CLERK [address] [place] [address] [facility] 01/31/24 Amber Griffith OFFSET LITHOGRAPHIC PRESS OPERATOR.CREDIT CORRESPONDENCE CLERK [address] [place] [address] [facility] 01/31/24 Physician General Internal Medicine Relationship Specialty Start Date End Date Donnell Dooley MD [address] [place] [address] PCP - General Family Medicine 05/11/16 Dennis Mendosa [address] [place] [phone] Ent - Otolaryngology 03/30/18 Margarito Shields MD [address] [place] [address] Hematology/Oncology 01/28/23 Morelia Hewitt, OFFSET LITHOGRAPHIC PRESS OPERATOR.CREDIT CORRESPONDENCE CLERK [address] [place] [address] [facility] 01/31/24 Amber Griffith OFFSET LITHOGRAPHIC PRESS OPERATOR.CREDIT CORRESPONDENCE CLERK [address] [place] [address] [facility] 01/31/24 Physician General Internal Medicine Relationship Specialty Start Date End Date Donnell Dooley MD [address] [place], [place] 844191 PCP - General Family Medicine 05/11/16 Dennis Mendosa [address] [place] [address] Ent - Otolaryngology 03/30/18 Margarito Shields MD [address] [place], [place] 8948[address] Hematology/Oncology 01/28/23 Morelia Hewitt, RADHA.CREDIT CORRESPONDENCE CLERK [address] [place] [address] [facility] 01/31/24 Amber Griffith OFFSET LITHOGRAPHIC PRESS OPERATOR.CREDIT CORRESPONDENCE CLERK [address] [place] [address] [facility] 01/31/24 Team Status: Active Member Role/Relationship [...] MDM 60-74 MINUTES Donnell Dooley MD [address] [place] [address] Referral ID Status Reason Start Date Expiration Date V isits Requested Visits Authorized [id number] Closed PCP Requested Referral 12/23/2022 12/23/2023 1 1 Specialty Diagnoses / Procedures Referred By Contac t Referred To Contact MR IMAGING Diagnoses Brain mass Meningioma (HCC) Procedures MRI BRAIN WO/W IVCON MRI BRAIN BRAIN STEM W/O W/CONTRAST MATERIAL Donnell Dooley MD [address] [place] [address] Mr Imaging Referral ID Status Reason Start Date Expiration Date V isits Requested Visits Authorized [id number] Closed Auto-Generate d Referral 05/06/2021 06/05/2022 1 [...] 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 Reason Comments [...] ABD & PELVIS W/O CONTRAST Morelia Hewitt, RADHA.CREDIT CORRESPONDENCE CLERK [address] [place] [address] [place] [address] Referral ID Status Reason Start Date Expiration Date V isits Requested Visits Authorized [id number] Closed Auto-Generate d Referral 08/04/2023 09/02/2024 [address] Specialty Diagnoses / Procedures Referred By Contac t Referred To Contact CT IMAGING Diagnoses Pelvic pain Procedures CT ABD/PEL WO IVCON CT ABD & PELVIS W/O CONTRAST Morelia Hewitt, RADHA.CREDIT CORRESPONDENCE CLERK [address] [place] [address] Ct Imaging [id number] Reason Comments Eye Problem Bilat eyes, redness, swelling, x 1 week Reason Comments Results Reason Comments Information Reason Comments Clinical Update Reason Comments Established Patient Follow Up Pain Reason Onset Date Comments Population Health Navigation Outreach 05/11[facility]2024 [facility] Reason Onset Date Comments Population Health Navigation Outreach 06/28/2024 [facility] Goals (unrecognized section and content) Goals may be documented in a n alternate sectionGoals may be documented in an alternate sectionGoals may be documented in an alternate sectionGoals may be documented in an alternate section INFORMATION SOURCE (unrecogn ized section and content) DATE CREATED AUTHOR 10/17/[address] [facility] DATE CREATED AUTHOR AUTHOR'S ORGANIZ ATION 04/04/2023 [facility] DATE CREATED AUTHOR AUTHOR'S ORGANIZ ATION 03/24/2024 [facility] DATE CREATED AUTHOR AUTHOR'S ORGANTHIERRY ATION 07/19/2024 [facility] FOR RECORDS PERTAINING TO PATIENTS WHO [...] BE BASED ON THE PRIMARY CLINICAL RECORDS. [employer] [facility]. provides no warranty or guarantee of the accuracy or completeness of information in this document.
--- OUTSIDE RECORDS SUMMARY | 2024-08-22 23:16 | XMS RPT_ITS | CCD ---
Author Organization [facility] Care Team Providers Care Process Control Engineer Name Role Phone Suzi RN, Thao Oakes Unavailable [phone] Suzi RN, Thao Oakes Unavailable [phone] Suzi RN, Thao Oakes Unavailable [phone] Marcela More Unavailable Unavailable Suzi RN, Thao Oakes Unavailable [phone] Suzi RN, Thao Oakes Unavailable [phone] Donnell Dooley MD Primary Care Provider Dennis Mendosa Unavailable Dr. Donnell Dooley Primary Care Provider Dr. Donnell Dooley Referring Provider Emmy NETWORK ENGINEER ADMINISTRATOR, NETWORK ENGINEER ADMINISTRATOR-C Lashanda Sr Attending Provider Dr. Conrad Antunez Attending Provider Chey CROCKER, NETWORK ENGINEER ADMINISTRATOR-C Kori Attending Provider Unav ailable Donnell Doloey MD Primary Care Provider Dennis Mendosa Unavailable Donnell Dooley MD Primary Care Provider Dennis Mendosa Unavailable Donnell Dooley MD Primary Care Provider Dennis Mendosa Unavailable Dr. Donnell Dooley Primary Care Provider Dr. Donnell Dooley Referring Provider Rickie NETWORK ENGINEER ADMINISTRATOR, NETWORK ENGINEER ADMINISTRATOR-C Sheba Attending Provider DONNELL DOOLEY Primary Care Unavailable DANIKA HELMS Attending Unavailable DANIKA HELMS Admitting Unavailable Dr. Donnell Dooley Primary Care Provider [phone] Soumya, Dr. Jacobo Referring Provider Dr. Conrad Antunez Attending Provider [phone] Cornelius SNOW, Margarito Unavailable BHARATIDALLAS Referring Unavailable SOUMYA, DONNELL Maldonado Primary Care Unavailable Sam Rayburn Donnell SNOW Primary Care Provider Haagen RELIABILITY TECHNOLOGIST.PART TIME FLEXIBLE CLERK, Morelia Unavailable Suppan RELIABILITY TECHNOLOGIST.PART TIME FLEXIBLE CLERK, Amber A Unavailable Suppan RELIABILITY TECHNOLOGIST.PART TIME FLEXIBLE CLERK, Amber A Unavailable [phone] Suppan RELIABILITY TECHNOLOGIST.PART TIME FLEXIBLE CLERK, Amber A Unavailable Shbea Damian Attending Unavailable Soumya, Donnell Referring Unavailable Soumya, Donnell Primary Care Unavailable Soumya OLS, Donnell Attending Unavailable Sam Rayburn, Donnell Primary Care Unavailable Soumya OLS, Donnell Attending Unavailable Sam Rayburn, Donnell Primary Care Unavailable Soumya, Donnell Primary Care Unavailable Soumya OLS, Donnell Attending Unavailable Sam Rayburn, Donnell Primary Care Unavailable Soumya OLS, Donnell Attending Unavailable Sam Rayburn OLS, Donnell Attending Unavailable Sam Rayburn, Donnell Primary Care Unavailable SOUMYA, DONNELL J [...] Soumya , Dr. Jacobo Primary Care Provider Dr. Juno Cruz DO Emergency Provider Dr. Naeem Barnett DO Admit Provider Unavail able Barnett DO, Dr. Hartley Attending Provider Unav ailable Allergies Allergy Classification Reported Allergen(s) Allergy Type Date of Onset Reaction(s) Facility Amoxicillin / Clavulanate (3 sources) Amoxicillin / Clavulanate Drug Allergy 8 Vomiting [facility] Work Phone: Bacitracin (3 sources) Bacitracin Drug Allergy 7 Itching [facility] Latex (3 sources) Latex Substance Allergy 7 Rash [facility] Opioid Agonists (3 sources) Codeine Drug Allergy 7 GI Upset, Vomiting [facility] walnut allergenic extract (3 sources) walnut allergenic extract Drug Allergy 2 Swelling [facility] (20 sources) bacitracin; Translations: [BACITRACIN] drug allergy 7 Itching [facility] Work Phone: (20 sources) codeine; Translations: [CODEINE] drug allergy 7 GI Upset, Vomiting [facility] Work Phone: (20 sources) Latex; Translations: [LATEX] drug allergy 7 Rash [facility] Work Phone: (6 sources) Shellfish drug allergy 7 swelling, anaphylaxis [facility] Work Phone: (20 sources) Amoxicillin / Clavulanate; Translations: [AMOXICILLIN-PO T CLAVULANATE] Drug Allergy 8 Vomiting [facility] Work Phone: (20 sources) Shellfish; Translations: [SHELLFISH CONTAINING PRODUCTS] Drug Allergy 7 Swelling, Anaphylaxis, Shortness of Breath, Other: See Comments, Yumi [facility] (5 sources) Shellfish; Translations: [shellfish derived] Allergy to substance 2 Anaphylaxis [facility] (1 source) WALNUTS Propensity to adverse reactions 2 Swelling [facility] Work Phone: (20 sources) walnut allergenic extract; Translations: [WALNUT] Drug Allergy 2 Swelling [facility] (2 sources) Amoxicillin Drug Allergy 3 Vomiting [facility] (2 sources) Clavulanate Drug Allergy 3 Vomiting [facility] (1 source) Amoxicillin Drug Allergy 4 [facility] (1 source) Clavulanate Drug Allergy 4 [facility] (1 source) walnut Drug allergy (disorder) 4 [facility] Medications Current Medications Medication Drug Class(es) [...] mouth. Take by mouth as nee ded. [id number] actuat albuterol 0.09 mg/actuat metered dose [...] Base) MCG/ACT AERS as directed ALBUTEROL SULFATE [id number] Thao Archer RN Start: 10-21-2016 PROAIR HFA 108 (90 Base) MCG/ACT AERS as directed ALBUTEROL SULFATE [id number] Thao Archer RN Comment on above: Inhale [...] 7 days. Take 1 capsule by mo [facility] twice daily. Take 1 tablet by ruben [...] on above: Take 1 capsule by mo [facility] once daily. Hydrocolloid Dressing (DUODERM CGF BORDER [...] Comment on above: [facility]. meclizine hydrochloride 25 mg [...] Comment on above: Take 1 tablet [facility] daily for 5 days. Take [...] once daily. Take 1 capsule by mo [facility] twice daily. Tiotropium [place] 18 mcg capsule, w/inhalation device (2 sources) Start: take 1 capsule by inhalation once daily Tiotropium [place] 18 mcg capsule, w/inhalation device Active 18 ug INHALATION DAILY 3 3 January 12, 2024 2:10pm copd Start: 02-16-2023 End: 01-12-2024 take 1 capsule by inhalation once daily Tiotropium [place] 18 mcg capsule, w/inhalation device Discontinued 18 [...] on above: Take 1 capsule by mo [facility] three times daily as needed. Budesonide-Formote rol [...] 4.5 MCG/ACT AERO as directed BUDESONIDE-FORMOTEROL FUMARATE [id number] Thao Archer RN Start: 10-21-2016 SYMBICORT 160- 4.5 MCG/ACT AERO as directed BUDESONIDE-FORMOTEROL FUMARATE [id number] Thao L Archer RN Comment on above: Inhale 2 Puffs as in structed twice daily. IUQBXSR-[id number]-JBU C ORAL (4 sources) End: 06-04-2021 IUKDLON-XHCTEJHLH-KNLY ORAL Take by mouth. 06/04/2021 Discontinued End: 06-04-2021 SBRIUUZ-KLEJCAHJI-VGMO ORAL Take by mouth. 0 06/04/2021 Discontinued CALCIUM-MAGNESIU M-ZINC ORAL Take by mouth. 0 Active Comment on above: Take by mouth. cholecalciferol 2000 unt oral capsule (20 sources) Vitamin D Start: 7 take 1 tablet by mouth once daily VITAMIN D3 2000 UNIT CAPS One tablet by mouth daily CHOLECALCIFEROL [id number] Thao Archer RN take 1 capsule by [...] (FLONASE) 50 mcg/actuation nasal spray Use 1 Jackson in each nostril once daily. 1 Bottle 11 03/08/2017 06/15/2022 Discontinued (Other) Start: 10-21-2016 FLUTICASONE VA OPIONATE 50 MCG/ACT SUSP (0.05mg/inh) 1 spray each nostril once a day FLUTICASONE PROPIONATE [id number] Thao Archer RN Start: 10-21-2016 take 0.05 mg by inha lation once daily FLUTICASONE PROPIONATE 50 MCG/ACT SUSP (0.05mg/inh) 1 spray each nostril once a day FLUTICASONE PROPIONATE 74476263129 Thao Archer RN Comment on above: Use 1 Jackson in each nostril once daily. 12 hr [...] NICORETTE GUM as directed NICOTINE POLACRILEX GUM 10154777477 Thao Archer RN nystatin 516074 unt/ml oral suspension (20 sources) Polyene Antifungal [...] 1 G M TABS 1g tid SUCRALFATE 80874156689 Thao Archer RN sulfamethoxazole 800 mg / [...] 1 capsule by inhalation once daily Tiotropium [place] 18 mcg capsule, w/inhalation device Discontinued 18 ug INHALATION DAILY 1 0 December 12, 2021 2:19pm January 07, 2022 11:32am copd Start: 04-19-2019 End: 05-02-2019 Tiotropium [place] 1 PUFF in haler Discontinued 1 NMA INHALATION DAILY April 19, 2019 1:00am May 02, 2019 11:07am copd Start: 04-19-2019 End: 05-02-2019 take 1 puff(s) by inhalation once daily Tiotropium [place] Discontinued 1 PUFF INHALATION DAILY April 19, 2019 1:00am May 02, 2019 11:07am Start: 03-15-2019 take 1 capsule by in halation once daily tiotropium (SPIRIVA WITH HANDIHALER) 18 mcg inhalation capsule INHALE THE CONTENTS OF ONE CAPSULE VIA HANDIHALER ONCE DAILY 90 capsule 3 03/15/2019 Active Start: 10-21-2016 SPIRIVA HANDIH ALER 18 MCG CAPS as directed TIOTROPIUM BROMIDE MONOHYDRATE 65363707420 Thao Archer RN Start: 10-21-2016 SPIRIVA HANDIH ALER 18 MCG CAPS as directed TIOTROPIUM BROMIDE MONOHYDRATE 99267882064 Thao Archer RN Comment on above: INHALE [...] One tablet by mouth daily ZINC GLUCONATE [id number] Thao Archer RN Problems Active Problems Problem [...] Auto (Unsp spec) [#/Vol] 3.85 10*3/uL 0.83-4.51 [facility] Absolute neutrophil countOrd ered By: Juno Cruz on 08-22-2024 Neutrophils (Bld) [#/Vol] 9.8 10*3/uL High 2.0-7.7 [facility] Anion gap in Serum or Plasma Ordered By: Juno Cruz on 08-22-2024 Anion gap [Moles/Vol] 14 mmol/L 5-15 [facility] Automated lymphocyte count a s percentage of total leukocytesOrdered By: Juno Cruz on 08-22-2024 Lymphocytes/100 WBC Auto (Unsp spec) 25.4 % 19-41 [facility] BUN/creatinine ratioOrdered By: Juno Cruz on 08-22-2024 Urea nitrogen/Creatinine [Mass ratio] 40.5 mg/mg High 10-20 [facility] Basophil percentageOrdered B y: Juno Cruz on 08-22-2024 Basophils/100 WBC (Bld) 0.4 % 0-1 [facility] CO2 (BldV) [Moles/Vol]Ordere d By: Juno Cruz on 08-22-2024 CO2 [Moles/Vol] 28 mmol/L 23-33 [facility] Carbon dioxide, total [Moles /volume] in Central venous bloodOrdered By: Juno Cruz on 08-22-2024 CO2 [Moles/Vol] 25.2 mmol/L 21.0-32.0 [facility] Chloride assayOrdered By: Albert Cruz on 08-22-2024 Chloride [Moles/Vol] 94 mmol/L Low 98-108 [facility] Eosinophil percentageOrdered By: Juno Cruz on 08-22-2024 Eosinophils/100 WBC (Bld) 1.0 % 0-5 [facility] Erythrocyte distribution wid th ratioOrdered By: Juno Cruz on 08-22-2024 Erythrocyte distribution width (RBC) [Ratio] 14.4 % 11.6-14.6 [facility] Erythrocyte distribution wid th standard deviationOrdered By: Juno Alonzo on 08-22-2024 Erythrocyte distribution width (RBC) [Ratio] 45.6 fl High 35.1-43.9 [facility] Glomerular filtration rate ( GFR) estimation/1.73 sq m using serum, plasma, or whole bOrdered By: Juno Cruz on 08-22-2024 GFR/1.73 sq M.predicted among non-blacks MDRD (S/P/Bld) [Vol rate/Area] 79 mL/min/{1.73_m2} >60 [facility] Comment on above: mL/min/1.73m2 CKD-EP I Creatinine Equation (2020) Hematocrit Auto (Bld) [Volum e fraction]Ordered By: Juno Cruz on 08-22-2024 Hematocrit (Bld) [Volume fraction] 42.9 % 37-47 [facility] Hemoglobin measurementOrdere d By: Juno Cruz on 08-22-2024 Hemoglobin (Bld) [Mass/Vol] 14.5 g/dL 12.0-15.0 [facility] Immature granulocytes/100 WB C Auto (Bld)Ordered By: Juno Cruz on 08-22-2024 Immature granulocytes/100 WBC (Bld) 0.500 % 0.0-0.9 [facility] Comment on above: IG% - Immature Granu locytes (promyelocytes, myelocytes and metamyelocytes) > 1% indicates that a LEFT SHIFT is Present. Influenza virus A and B and SARS-CoV-2 (COVID-19) and Respiratory syncytial virus RNAOrdered By: Juno Cruz on 08-22-2024 SARS-CoV-2 (COVID-19) RNA AIME+probe Ql (Unsp spec) [facility] Lactic acid measurementOrder ed By: Juno Cruz on 08-22-2024 Lactate [Moles/Vol] 1.4 mmol/L 0.0-2.0 [facility] MCV (mean corpuscular volume ) determinationOrdered By: Juno Cruz on 08-22-2024 MCV (RBC) [Entitic vol] 86.3 fL 81-99 [facility] Mean corpuscular hemoglobin (MCH) determinationOrdered By: Juno Cruz on 08-22-2024 MCH (RBC) [Entitic mass] 29.2 pg 27.0-32.0 [facility] Mean corpuscular hemoglobin concentration (MCHC) determinationOrdered By: Juno Cruz on 08-22-2024 MCHC (RBC) [Mass/Vol] 33.8 g/dL 32-36 [facility] Mean platelet volume determi nationOrdered By: Juno Cruz on 08-22-2024 Platelet mean volume (Bld) [Entitic vol] 12.6 fL High 6.2-12.0 [facility] Monocyte percentageOrdered B y: Juno Cruz on 08-22-2024 Monocytes/100 WBC (Bld) 8.3 % 0-10 [facility] Neutrophil percentageOrdered By: Juno Cruz on 08-22-2024 Neutrophils/100 WBC (Bld) 64.4 % 47-70 [facility] No Panel InformationOrdered By: Juno Cruz on 08-22-2024 Blood Gas Sample Site Not entered [facility] Blood Gas Specimen Type NAHOMY [facility] Oxygen Delivery Device Room Air [facility] Nucleated red blood cell per centageOrdered By: Juno Cruz on 08-22-2024 Nucleated RBC/100 WBC (Bld) [Ratio] 0 % 0-5 [facility] Platelet countOrdered By: Albert Cruz on 08-22-2024 Platelets (Bld) [#/Vol] 127 10*3/uL Low 150-450 [facility] Potassium measurement (mass/ volume)Ordered By: Juno Cruz on 08-22-2024 Potassium (Unsp spec) [Mass/Vol] 4.1 mmol/L 3.3-5.1 [facility] Comment on above: Hemolysis present, R esults could be affected. RBC Auto (Bld) [#/Vol]Ordere d By: Juno Cruz on 08-22-2024 RBC (Bld) [#/Vol] 4.97 10*6/uL 4.2-5.4 [facility] Serum creatinine measurement (mass/volume)Ordered By: Juno Cruz on 08-22-2024 Creatinine [Mass/Vol] 0.76 mg/dL 0.70-1.20 [facility] Serum glucose measurement (m ass/volume)Ordered By: Juno Cruz on 08-22-2024 Glucose [Mass/Vol] 118 mg/dL High 70-99 [facility] Serum or plasma calcium dmitry urement (mass/volume)Ordered By: Juno Alonzo on 08-22-2024 Calcium [Mass/Vol] 8.6 mg/dL 7.6-11.0 [facility] Serum or plasma urea nitroge n measurement (mass/volume)Ordered By: Juno Cruz on 08-22-2024 Urea nitrogen [Mass/Vol] 31 mg/dL High 4-19 [facility] Sodium levelOrdered By: Anthony Cruz on 08-22-2024 Sodium [Moles/Vol] 133 mmol/L 133-145 [facility] Venous blood base excess myriam surementOrdered By: Juno Cruz on 08-22-2024 Base excess Calc (BldV) [Moles/Vol] 4 mmol/L High -1.0-3.5 [facility] Venous blood bicarbonate myriam surementOrdered By: Juno Cruz on 08-22-2024 HCO3 (Bld) [Moles/Vol] 27 mmol/L High 22-26 [facility] Venous blood oxygen saturati on measurementOrdered By: Juno Cruz on 08-22-2024 Oxygen saturation in Blood 76 % High 50-70 [facility] Venous blood pH measurementO rdered By: Juno Cruz on 08-22-2024 pH (BldV) 7.52 [pH] High 7.32-7.42 [facility] Venous blood partial pressur e of carbon dioxide measurementOrdered By: Juno Cruz on 08-22-2024 CO2 (BldV) [Partial pressure] 33.0 mm[Hg] Low 41-51 [facility] Venous blood partial pressur e of oxygen measurementOrdered By: Juno Alonzo on 08-22-2024 Oxygen (BldV) [Partial pressure] 36 mm[Hg] 25-40 [facility] White blood cell (WBC) count Ordered By: Juno Cruz on 08-22-2024 WBC (Bld) [#/Vol] 15.2 10*3/uL High 4.4-11.0 [facility] ) MADISON LOFTON ([id number]) 1940 F Date Time Provider Department 07/12/24 [...] Shields MD (Hematology/Oncology) Morelia Hewitt APRN.REYNALDO as Nurse Practitioner Manager (Family Medicine) Amber Griffith APRN.CNP as Nurse Practitioner Manager (Family Medicine) Dr Helms, podiatry. Now seeing podiatry at facility. Dr Antunez, pulmonary. Dr Diallo, optho. [facility]-not followed up. Defers follow up. [...] [1] Brian K, Kirsty TW, Vitor RL, Luhter JAIRON, Joshua JT, Duarte AH. The PHQ-8 [...] practice. J Neurol. 2023 Jef . doi: 10.1007/h20304-132-542 44-8. Epub ahead of print. PMID: 15104765. Cognitive screening reviewed and Patient has known [...] on fo (more content not included)... Normal [facility] MADISON LOFTON ([id number]) 1940 F Date Time Provider Department 04/24/24 [...] Encounter Status:Closed by REENA ARANGO on 04/24/24 [facility] 03-22-2024 [facility] Telephone (MEKAWS) MADISON LOFTON ([id number]) 1940 F Date Time Provider Department 03/22/24 DONNELL DOOLEY [facility] During your visit today, we recorded the following information about you: Jessica Middleton LPN 03/22/2024 9:56 AM Signed Sandy with [facility] called to request ed list [...] Status:Closed by JESSICA MIDDLETON on 03/22/24 Normal [facility] PVR LEG FRANCIS[facility] VAS LABon 2024 [facility] Non-Invasive Vascula r Laboratory [facility] Lower Extremity Arterial Physiology Study Bilateral/Complete Date [...] called by tracings. Technologist: Eugenia Whelan RVT [facility] Ordering physician: DANIKA HELMS Interpreting physician: AMINA Hart DO Final CC BTIG Medical Image : [id number] See Link below for Image [facility] Telephone (CHELSEA) MADISON LOFTON ([id number]) 1940 F Date Time Provider Department 03/09/24 DONNELL DOOLEY During your visit today, we recorded the following information about you: Guera Roy RN 03/09/2024 9:18 AM Signed Ronda nurse with [facility] calls with patient update. Patient has [...] do one there. Call back number is [phone]. SHANTELL Mitchell William J, MD 03/09/2024 11:18 [...] Encounter Status:Closed by SKYE PAYTON on [facility]09[facility] MADISON LOFTON ([id number]) 1940 F Date Time Provider Department 03/09/24 [facility] During your visit today, we recorded the following information about you: Alejandrina Cooper RN 03/09/2024 4:54 PM Signed Ronda from [place] calling with results to chest x ray. Results show Slight left lower lobe infiltrate (Left Basilar infiltrate without any mass or fusion). Patient still has cough and other symptoms without fever. Pharmacy is [facility]. Please review and advise, SHANTELL Emmanuel Jacqueline A, APRN.PART TIME FLEXIBLE CLERK 03/09/2024 5:11 PM Signed Called patient [...] Encounter Status:Closed by AMBER GRIFFITH on 03/09/24 [facility] CNOVon 02-28-2024 CNOV Office Visit (PODIWS ) MADISON LOFTON ([id number]) 1940 F Date Time Provider Department 02/28/24 [...] shellfish into diet. Bacitracin Itching Latex Rash [place] Swelling PAST SURGICAL HISTORY Procedure Laterality Date BREAST RECONSTRUCTION CATARACT EXTRACTION HX Bilateral 2011 CATARACT SURGERY, COMPLEX COLONOSCOPY W/BIOPSY SINGLE/MULTIPLE 10/12/2016 [facility] DIAG AND/OR THERAP, NOT OB EGD TRANSORAL BIOPSY SINGLE/MULTIPLE 10/12/2016 EGD W/O [facility] SPEC VARICIES INJ N/A HEMORRHOIDECTOMY MASTECTOMY HX [...] REVIEW OF (more content not included)... Normal [facility] 02-18-2024 [facility] ([facility] MADISON LOFTON ([id number]) 1940 F Date Time Provider Department 02/18/24 DONNELL DOOLEY [facility] During your visit today, we recorded the following information about you: Alejandrina Cooper RN 02/18/2024 4:37 PM Signed Tanika from [place] calls and states that patient is complaining [...] DONNELL DOOLEY on 02/18/24 [facility] 02-07-2024 [facility] (FAMPWS[facility] KIRSTYMADISON ([id number]) 1940 F Date Time Provider Department 02/07/24 DONNELL DOOLEY [facility] During your visit today, we recorded [...] I did pull culture report from [facility] so we are sure the ATB she [...] Encounter Status:Closed by Remberto BOB on 02/11/24 [facility] 01-14-2024 CNOV Office Visit (FAMPWS ) MADISON LOFTON ([id number]) 1940 F Date Time Provider Department 01/14/24 [...] Abs Lymph 1.00 - 4.00 k/uL 3.51 Bledsoe% % 7.6 Abs Bledsoe <0.87 k/uL 0.86 Eosin% % 3.7 Abs [...] Vomiting Shellfish (more content not included)... Normal [facility] Pulmonary Visit Reporton Pulmonary Visit Report [facility] [place] [address] [place] [address] OFFICE VISIT Date of Service: 01/12/24 MR#: [id number] Acct: [id number] Name: MADISON LOFTON Rep #: [id number] : 1940 Provider: NEFTALI Damain Age/Sex: 83/F Location: [facility].PMW Status: Signed Assessment and Plan Assessment and [...] air Intake Visit Reasons: 6 M FU Intermediate Manager Required: No DME Vendor: [employer] Accompanied by: [...] RespiClick) lo (more content not included)... Normal [facility] CBC W Auto Differential pane l (Bld)on 01-10-2024 Basophils (Bld) [#/Vol] 0.09 10*3/uL Normal <0.11 [facility] Comment on above: Order Comment: Speci men Type: BLOOD SPECIMENOrdering Facility: [facility] Address: [address] [place] [address] Performed By: #### 5 7021-8 ####[facility] LABCLIA [id number] [place] [address] [place] Basophils/100 WBC (Bld) 0.8 % Normal C [facility] Comment on above: Order Comment: Speci men Type: BLOOD SPECIMENOrdering Facility: [facility] Address: [address] [place] [address] Performed By: #### 5 7021-8 ####[facility] LABCLIA [id number] [place] [address] [place] Differential cell count method Nom (Bld) Auto Normal [facility] Comment on above: Order Comment: Speci men Type: BLOOD SPECIMENOrdering Facility: [facility] Address: [address] [place] [address] Performed By: #### 5 7021-8 ####[facility] LABCLIA [id number] [place] [address] [place] Eosinophils (Bld) [#/Vol] 0.42 10*3/uL Normal <0.46 [facility] Comment on above: Order Comment: Speci men Type: BLOOD SPECIMENOrdering Facility: [facility] Address: [address] [place] [address] Performed By: #### 5 7021-8 ####[facility] LABCLIA [id number] [place] [address] [place] Eosinophils/100 WBC (Bld) 3.7 % Normal [facility] Comment on above: Order Comment: Speci men Type: BLOOD SPECIMENOrdering Facility: [facility] Address: [address] [place] [address] Performed By: #### 5 7021-8 ####[facility] LABIA [id number] [place] [address] [place] Erythrocyte distribution width (RBC) [Ratio] 14.4 % Normal 11.5-15.0 [facility] Comment on above: Order Comment: Speci men Type: BLOOD SPECIMENOrdering Facility: [facility] Address: [address] [place] [address] Performed By: #### 5 7021-8 ####[facility] LABIA [id number] [place] [address] [place] Hematocrit (Bld) [Volume fraction] 40.4 % Normal 36.0-46.0 [facility] Comment on above: Order Comment: Speci men Type: BLOOD SPECIMENOrdering Facility: [facility] Address: [address] [place] [address] Performed By: #### 5 7021-8 ####[facility] LABIA [id number] [place] [address] [place] Hemoglobin (Bld) [Mass/Vol] 12.9 g/dL Normal 11.5-15.5 [facility] Comment on above: Order Comment: Speci men Type: BLOOD SPECIMENOrdering Facility: [facility] Address: [address] [place] [address] Performed By: #### 5 7021-8 ####[facility] LABCLIA [id number] [place] [address] [place] Immature granulocytes (Bld) [#/Vol] 0.06 10*3/uL Normal <0.10 [facility] Comment on above: Order Comment: Speci men Type: BLOOD SPECIMENOrdering Facility: [facility] Address: [address] [place] [address] Performed By: #### 5 7021-8 ####[facility] LABCLIA [id number] [address] [place] Immature granulocytes/100 WBC (Bld) 0.5 % Normal [facility] [facility] Comment on above: Order Comment: Speci men Type: BLOOD SPECIMENOrdering Facility: [facility] Address: [address] [place] [address] Performed By: #### 5 7021-8 ####[facility] LABCLIA [id number] [place] [address] [place] Lymphocytes (Bld) [#/Vol] 3.51 10*3/uL Normal 1.00-4.00 [facility] Comment on above: Order Comment: Speci men Type: BLOOD SPECIMENOrdering Facility: [facility] Address: [address] [place] [address] Performed By: #### 5 7021-8 ####[facility] LABCLIA [id number] [place] [address] [place] Lymphocytes/100 WBC (Bld) 31.1 % Normal [facility] Comment on above: Order Comment: Speci men Type: BLOOD SPECIMENOrdering Facility: [facility] Address: [address] [place] [address] Performed By: #### 5 7021-8 ####[facility] LABCLIA [id number] [place] [address] [place] MCH (RBC) [Entitic mass] 29.9 pg Normal 26.0-34.0 [facility] Comment on above: Order Comment: Speci men Type: BLOOD SPECIMENOrdering Facility: [facility] Address: [address] [place] [address] Performed By: #### 5 7021-8 ####[facility] LABCLIA [id number] [place] [address] [place] MCHC (RBC) [Mass/Vol] 31.9 g/dL Normal 30.5-36.0 [facility] Comment on above: Order Comment: Speci men Type: BLOOD SPECIMENOrdering Facility: [facility] Address: [address] [place] [address] Performed By: #### 5 7021-8 ####[facility] LABCLIA [id number] [place] [address] [place] MCV (RBC) [Entitic vol] 93.7 fL Normal 80.0-100.0 C [facility] Comment on above: Order Comment: Speci men Type: BLOOD SPECIMENOrdering Facility: [facility] Address: [address] [place] [address] Performed By: #### 5 7021-8 ####[facility] LABCLIA [id number] [place] [address] [place] Monocytes (Bld) [#/Vol] 0.86 10*3/uL Normal <0.87 [facility] Comment on above: Order Comment: Speci men Type: BLOOD SPECIMENOrdering Facility: [facility] Address: [address] [place] [address] Performed By: #### 5 7021-8 ####[facility] LABCLIA [id number] [address] [place] Monocytes/100 WBC (Bld) 7.6 % Normal C [facility] Comment on above: Order Comment: Speci men Type: BLOOD SPECIMENOrdering Facility: [facility] Address: [address] [place] [address] Performed By: #### 5 7021-8 ####[facility] LABCLIA [id number] [place] [address] [place] Neutrophils (Bld) [#/Vol] 6.33 10*3/uL Normal 1.45-7.50 [facility] Comment on above: Order Comment: Speci men Type: BLOOD SPECIMENOrdering Facility: [facility] Address: [address] [place] [address] Performed By: #### 5 7021-8 ####[facility] LABCLIA [id number] [place] [address] [place] Neutrophils/100 WBC (Bld) 56.3 % Normal [facility] Comment on above: Order Comment: Speci men Type: BLOOD SPECIMENOrdering Facility: [facility] Address: [address] [place] [address] Performed By: #### 5 7021-8 ####[facility] LABCLIA [id number] [place] [address] [place] Nucleated RBC (Bld) [#/Vol] 10*3/uL Normal <0.01 [facility] Comment on above: Order Comment: Speci men Type: BLOOD SPECIMENOrdering Facility: [facility] Address: [address] [place] [address] Performed By: #### 5 7021-8 ####[facility] LABCLIA [id number] [place] [address] [place] Nucleated RBC/100 WBC (Bld) [Ratio] 0.0 /100 WBC Normal [facility] Comment on above: Order Comment: Speci men Type: BLOOD SPECIMENOrdering Facility: [facility] Address: [address] [place] [address] Performed By: #### 5 7021-8 ####[facility] LABCLIA [id number] [place] [address] [place] Platelet mean volume (Bld) [Entitic vol] 12.1 fL Normal 9.0-12.7 [facility] Comment on above: Order Comment: Speci men Type: BLOOD SPECIMENOrdering Facility: [facility] Address: [address] [place] [address] Performed By: #### 5 7021-8 ####[facility] LABCLIA [id number] [place] [address] [place] Platelets (Bld) [#/Vol] 173 10*3/uL Normal 150-400 [facility] Comment on above: Order Comment: Speci men Type: BLOOD SPECIMENOrdering Facility: [facility] Address: [address] [place] [address] Performed By: #### 5 7021-8 ####[facility] LABCLIA [id number] [place] [address] [place] RBC (Bld) [#/Vol] 4.31 10*6/uL Normal 3.90-5.20 [facility] Comment on above: Order Comment: Speci men Type: BLOOD SPECIMENOrdering Facility: [facility] Address: [address] [place] [address] Performed By: #### 5 7021-8 ####[facility] LABIA [id number] [place] [address] [place] WBC (Bld) [#/Vol] 11.27 10*3/uL High 3.70-11.00 [facility] Comment on above: Order Comment: Speci men Type: BLOOD SPECIMENOrdering Facility: [facility] Address: [address] [place] [address] Performed By: #### 5 7021-8 ####[facility] LABCLIA [id number] [place] [address] [place] Comprehensive metabolic 2000 panelon 01-10-2024 Albumin [Mass/Vol] 3.8 g/dL Low 3.9-4.9 [facility] Comment on above: Order Comment: Speci men Type: BLOOD SPECIMENOrdering Facility: [facility] Address: [address] [id number] Performed By: #### 2 4331-1, ####[facility] LABCLIA [id number] [place] [address] [place] ALP [Catalytic activity/Vol] 93 U/L Normal 34-123 [facility] Comment on above: Order Comment: Speci men Type: BLOOD SPECIMENOrdering Facility: [facility] Address: [address] [place] [address] Performed By: #### 2 4331-1, ####[facility] LABCLIA [id number] [place] [address] [place] ALT [Catalytic activity/Vol] 18 U/L Normal 7-38 [facility] Comment on above: Order Comment: Speci men Type: BLOOD SPECIMENOrdering Facility: [facility] Address: [address] [place] [address] Performed By: #### 2 4331-1, ####[facility] LABCLIA [id number] [place] [address] [place] Anion gap [Moles/Vol] 9 mmol/L Normal 8-15 [facility] Comment on above: Order Comment: Speci men Type: BLOOD SPECIMENOrdering Facility: [facility] Address: [address] [place] [address] Performed By: #### 2 4331-1, ####[facility] LABCLIA [id number] [place] [address] [place] AST [Catalytic activity/Vol] 25 U/L Normal 13-35 [facility] Comment on above: Order Comment: Speci men Type: BLOOD SPECIMENOrdering Facility: [facility] Address: [address] [place] [address] Performed By: #### 2 4331-1, ####[facility] LABCLIA [id number] [address] [address] [place] Bilirubin [Mass/Vol] 0.4 mg/dL Normal 0.2-1.3 [facility] Comment on above: Order Comment: Speci men Type: BLOOD SPECIMENOrdering Facility: [facility] Address: [address] [place] [address] Performed By: #### 2 4331-, ####[facility] LABCLIA [id number] [place] [address] [place] Calcium [Mass/Vol] 9.9 mg/dL Normal 8.5-10.2 [facility] Comment on above: Order Comment: Speci men Type: BLOOD SPECIMENOrdering Facility: [facility] Address: [address] [place] [address] Performed By: #### 2 4331-, ####[facility] LABCLIA [id number] [place] [address] [place] Chloride [Moles/Vol] 106 mmol/L Normal 98-107 [facility] Comment on above: Order Comment: Speci men Type: BLOOD SPECIMENOrdering Facility: [facility] Address: [address] [place], [place] [address] Performed By: #### 2 4331-, ####[facility] LABCLIA [id number] [address] [address] [place] CO2 [Moles/Vol] 31 mmol/L High 22-30 [facility] Comment on above: Order Comment: Speci men Type: BLOOD SPECIMENOrdering Facility: [facility] Address: [address] [place], [place] [address] Performed By: #### 2 4331-1, 64936-6 ####[facility] LABCLIA [id number] [place] [address] [place] Creatinine [Mass/Vol] 0.68 mg/dL Normal 0.58-0.96 [facility] Comment on above: Order Comment: Cindy michelle Type: BLOOD SPECIMENOrdering Facility: [facility] Address: [address] [place] [address] Performed By: #### 2 4331-1, 64377-1 ####[facility] [id number] [place] [address] [place] [facility] [place] Creatinine and Glomerular filtration rate.predicted panel (S/P/Bld) 88 mL/min/1.73m??? Normal >=60 [facility] Comment on above: Order Comment: Cindy michelle Type: BLOOD SPECIMENOrdering Facility: [facility] Address: [address] [place] [address] Result Comment: Hailey mated Glomerular Filtration Rate [...] actual GFR. Performed By: #### 2 4331-1, 85930-1 ####[facility] [id number] [place] [address] [place] Glucose [Mass/Vol] 90 mg/dL Normal 74-99 [facility] Comment on above: Order Comment: Cindy miguel angel Type: BLOOD SPECIMENOrdering Facility: [facility] Address: [address] [place] [address] Result Comment: The [place] Diabetes Association (ADA) provides guidance for cutoff [...] Standards of Medical Care in Diabetes 2016, [place] Diabetes Association. Diabetes Care. 2016.39(Suppl 1). Performed By: #### 2 4331-1, ####[facility] LABCLIA [id number] [place] [address] [place] Potassium [Moles/Vol] 4.4 mmol/L Normal 3.7-5.1 [facility] Comment on above: Order Comment: Speci men Type: BLOOD SPECIMENOrdering Facility: [facility] Address: [address] [place] [address] Performed By: #### 2 4331-, ####[facility] LABCLIA [id number] [place] [address] [place] Protein [Mass/Vol] 5.8 g/dL Low 6.3-8.0 [facility] Comment on above: Order Comment: Speci men Type: BLOOD SPECIMENOrdering Facility: [facility] Address: [address] [place] [address] Performed By: #### 2 433-, ####[facility] LABCLIA [id number] [place] [address] [place] Sodium [Moles/Vol] 146 mmol/L High 136-144 [facility] Comment on above: Order Comment: Speci men Type: BLOOD SPECIMENOrdering Facility: [facility] Address: [address] [place] [address] Performed By: #### 2 4331-, ####[facility] LABCLIA [id number] [place] [address] [place] Urea nitrogen [Mass/Vol] 23 mg/dL High 7-21 [facility] Comment on above: Order Comment: Speci men Type: BLOOD SPECIMENOrdering Facility: [facility] Address: [address] [place] [address] Performed By: #### 2 4331-1, 06582-1 ####[facility] LABCLIA [id number] [place] [address] [place] Lipid 1996 panelon 4 Cholesterol [Mass/Vol] 210 mg/dL High <200 [facility] Comment on above: Order Comment: Speci men Type: BLOOD SPECIMENOrdering Facility: [facility] Address: [address] [place] [address] Result Comment: <200 mg/dL, Desirable 200-239 mg/dL, Borderline high >239 mg/dL, High Performed By: #### 2 4331-1, ####[facility] LABCLIA [id number] [address] [place] Cholesterol in HDL [Mass/Vol] 83 mg/dL Normal >39 [facility] Comment on above: Order Comment: Speci men Type: BLOOD SPECIMENOrdering Facility: [facility] Address: [address] [place] [address] Result Comment: 40-5 9 mg/dL, Acceptable >59 mg/dL, High: Negative risk factor for coronary heart disease <40 mg/dL, Low: Positive risk factor for coronary heart disease Performed By: #### 2 4331-1, 92221-3 ####[facility] LABCLIA [id number] [address] [place] Cholesterol in LDL [Mass/Vol] 110 mg/dL High <100 [facility] Comment on above: Order Comment: Speci men Type: BLOOD SPECIMENOrdering Facility: [facility] Address: [address] [place] [address] Result Comment: <100 mg/dL, Optimal 100-129 mg/dL, Near optimal/above optimal 130-159 mg/dL, Borderline high 160-189 mg/dL, High >189 mg/dL, Very high Secondary prevention optimal LDL Cholesterol levels are recommended to be < 70 mg/dL Performed By: #### 2 4331-1, 24163-8 ####[facility] LABCLIA [id number] [address] [place] Cholesterol in LDL/Cholesterol in HDL [Mass ratio] 1.33 {ratio} Normal <2.54 [facility] Comment on above: Order Comment: Speci men Type: BLOOD SPECIMENOrdering Facility: [facility] Address: [address] [place] [address] Result Comment: Refe rence: 1. National Cholesterol Education Program ATP III Guideline At-A-Glance Quick Desk Reference: National Heart, Lung, and Blood Francis. National Institutes of Health. 2001: NIH Publication No. 01-3305. 2. An International Atherosclerosis Society position paper: global recommendations for the management of dyslipidemia: executive summary, Atherosclerosis. 2014: 232(2):410-413. Performed By: #### 2 4331-, 55954-0 ####[facility] LABCLIA [id number] [place] [address] [place] Cholesterol in VLDL [Mass/Vol] 17 mg/dL Normal <30 [facility] Comment on above: Order Comment: Speci men Type: BLOOD SPECIMENOrdering Facility: [facility] Address: [address] [place] [address] Performed By: #### 2 4331-, 50575-6 ####[facility] LABCLIA [id number] [place] [address] [place] Cholesterol non HDL [Mass/Vol] 127 mg/dL Normal <130 [facility] Comment on above: Order Comment: Speci men Type: BLOOD SPECIMENOrdering Facility: [facility] Address: [address] [place] [address] Result Comment: <130 mg/dL, Optimal 130-159 mg/dL, Near optimal/above optimal 160-189 mg/dL, Borderline high 190-219 mg/dL, High >219 mg/dL, Very high Secondary prevention optimal non HDL Cholesterol levels are recommended to be <100 mg/dL Performed By: #### 2 4331-1, ####[facility] LABCLIA [id number] [place] [address] [place] Cholesterol.total/Azalea sterol in HDL [Mass ratio] 2.53 {ratio} Normal <5.10 [facility] Comment on above: Order Comment: Speci men Type: BLOOD SPECIMENOrdering Facility: [facility] Address: [address] [place] [address] Performed By: #### 2 4331-1, ####[facility] LABIA [id number] [address] [place] FASTING TIME 12 hrs Normal [facility] Comment on above: Order Comment: Speci men Type: BLOOD SPECIMENOrdering Facility: [facility] Address: [address] [place] [address] Performed By: #### 2 4331-1, ####[facility] LABIA [id number] [place] [address] [place] Triglyceride [Mass/Vol] 85 mg/dL Normal <150 C [facility] Comment on above: Order Comment: Speci men Type: BLOOD SPECIMENOrdering Facility: [facility] Address: [address] [place] [address] Result Comment: <150 mg/dL, Normal 150-199 mg/dL, Borderline high 200-499 mg/dL, High >499 mg/dL, Very high Performed By: #### 2 4331-1, ####[facility] LABIA [id number] [address] [place] Angel 01-06-2024 [facility] Telephone ([facility]) MADISON LOFTON ([id number]) 1940 F Date Time Provider Department 01/06/24 [...] Date Reviewed: 08/14/2023 Reviewed by: Sav Mejía APRN.PART TIME FLEXIBLE CLERK - Fully Assessed Reason for Visit: Orders [681] Primary Visit Diagnosis:Mixed hyperlipidemia [E78.2] Other Visit Diagnosis:Small B-cell lymphoma, unspecified body region (HCC) [C83.00] Order(s):COMPLETE BLOOD COUNT AND DIFFERENTIAL [SQCBCDIF] Order #: [id number] FUTURE COMPREHENSIVE METABOLIC PANEL [SQCMP] Order #: [id number] FUTURE LIPID PANEL BASIC [SQLIPB] Order #: [id number] FUTURE Prescriptions as of 01/06/2024 - aspirin, [...] JESSICA MIDDLETON on 01/06/24 [facility] MADISON LOFTON ([id number]) 1940 F Date Time Provider Department 10/16/23 [facility] During your visit today, we recorded the following information about you: Tammy North LPN 10/16/2023 11:24 AM Signed Nurse from [facility] called to state that the [...] 1:37 PM Signed Message left on community sports coordinator Rusty shane , instructed to call office and ask for a triage nurse for update. MEG Gonzalez Sherrie, RN 10/18/2023 4:05 PM Signed Bank Sales And Service Manager Haleigh at [facility] returning call to state patient is [...] Date Reviewed: 08/14/2023 Reviewed by: Sav Mejía APRN.PART TIME FLEXIBLE CLERK - Fully Assessed Reason for Visit: [...] MG-TRIMETHOPRIM* 10 (more content not included)... [facility] MADISON LOFTON ([id number]) 1940 F Date Time Provider Department 10/13/23 DONNELL DOOLEY [facility] During your visit today, we recorded the following information about you: Kaleigh Simmons, RN 10/13/2023 4:54 PM Signed Nurse Haleigh calling from [facility] regarding patient. Reports they have sent a fax over to PCP office indicating pt has had recent abnormal urine dip along with confusion, increased frequency and urgency. Asking provider if they wish to order a urine culture and/or medication? Please either respond back on their fax, and fax to [phone] or call Nurse at [phone] with reply. Thank you. Jennifer Holm LPN 10/13/2023 5:13 PM Signed UA showed 70+ WBC +nitrite no blood Morelia Hewitt APRN.PART TIME FLEXIBLE CLERK 10/13/2023 5:18 PM Signed Start macrobid [...] - Swelling Date Reviewed: 08/14/2023 Reviewed by: aSv Mejía APRN.PART TIME FLEXIBLE CLERK - Fully Assessed Reason for Visit: [...] JENNIFER HOLM on 10/13/23 [facility] 08-16-2023 [facility] Telephone ([facility]) MADISON LOFTON ([id number]) 1940 F Date Time Provider Department 08/16/23 MORELIA HEWITT During your visit today, we recorded the following information about you: Morelia Hewitt APRN.PART TIME FLEXIBLE CLERK 08/16/2023 7:57 PM Signed Can please [...] went over results, notes from Morelia Hewitt NETWORK ENGINEER ADMINISTRATOR, daughter said mother is voiding more often [...] below. Johanna voices understanding. Johanna transferred to psych nurse to get testing scheduled. Alejandrina Cooper RN [...] Swelling Date Reviewed: 08/14/2023 Reviewed by: Sav Mjeía APRN.PART TIME FLEXIBLE CLERK - Fully Assessed Reason for Visit: Results [95] Primary Visit Diagnosis:Urinary frequency [R35.0] Order(s): KIDNEY/BLADDER [1306447] Order #: [id number] FUTURE Prescriptions as of 08/17/2023 - aspirin, [...] Encounter Status:Closed by ALEJANDRINA COOPER on 08/17/23 [facility] 08-14-2023 [facility] Office Visit ([facility] ) MADISON LOFTON ([id number]) 1940 F Date Time Provider Department 08/14/23 1:45 PM [facility] During your visit today, we recorded the following information about you: Temperature Pulse Respiration Blood pressure 98.1 degrees 63/minute 20/minute 131/78 Weight 42 kg Sav Mejía APRN.PART TIME FLEXIBLE CLERK 08/14/2023 2:12 PM Signed Subjective HPI [...] CATARACT SURGERY, COMPLEX COLONOSCOPY W/BIOPSY SINGLE/MULTIPLE 10/12/2016 [facility] DIAG AND/OR THERAP, NOT OB EGD TRANSORAL BIOPSY SINGLE/MULTIPLE 10/12/2016 EGD W/O BRSH SPEC VARICIES INJ N/A HEMORRHOIDECTOMY MASTECTOMY HX Bilateral 1982 PAST SURGICAL HISTORY OF Bronchial artery embolization, left lung PAST SURGICAL HISTORY OF 2002 Lymph node removal on left arm SLING OPER STRES INCONTINENCE TOT ABDOMINL HYSTERECTOMY 1984 ALLERGIES Augmentin [Amoxicillin-Pot Clavulanate], Codeine, Shellfish Containing Products, Bacitracin, Latex, and [place] MEDICATIONS aspirin, enteric coated (ASPIRIN, ENTERIC COATED) [...] bronchitis.) Father other (Other) Brother Parkinson's vs [place]'s. age 61. other (Other) Other Meningioma: multiple [...] blurred visio (more content not included)... Normal [facility] CT ABD/PEL WO IVCONon 2023 CT ABD/PEL WO IVCON * * *Final Report* * * DATE OF EXAM: Aug 11 2023 3:50PM [facility] 0531 - CT ABD/PEL WO IVCON [...] mass or adenopathy. Incidental findings as described Office Service Coordinator: PSCB Transcribe Date/Time: Aug 16 2023 1:24P Dictated by : MANI RICHARDSON MD This examination was interpreted and the report reviewed and electronically signed by: MANI RICHARDSON MD on Aug 16 2023 1:39PM EST [id number] Normal [facility] Bacteria Ur Culton 4 Bacteria identified Cx Nom (U) ORGANISM ID: 1 <10,000 CFU/ml Lactose negative gram negative bacilli Insignificant colony count. No further workup. Normal [facility] Comment on above: Performed By: #### 6 30-4 ####[facility] LABCLIA [id number] [address] [facility] CNOVon 08-04-2023 CNOV Office Visit (MEKAWS ) MADISON LOFTON ([id number]) 1940 F Date Time Provider Department 08/04/23 9:00 AM MORELIA HEWITT During your visit today, we recorded the following information about you: Pulse Respiration Blood pressure 84/minute 16/minute 124/82 Morelia Hewitt APRN.PART TIME FLEXIBLE CLERK 08/04/2023 10:03 AM Signed This is [...] back). Started a month ago. [facility]. Refers did a urine sample about a [...] CATARACT SURGERY, COMPLEX COLONOSCOPY W/BIOPSY SINGLE/MULTIPLE 10/12/2016 [facility] DIAG AND/OR THERAP, NOT OB EGD TRANSORAL BIOPSY SINGLE/MULTIPLE 10/12/2016 EGD W/O BRSH SPEC VARICIES INJ N/A HEMORRHOIDECTOMY MASTECTOMY HX Bilateral 1982 PAST SURGICAL HISTORY OF Bronchial artery embolization, left lung PAST SURGICAL HISTORY OF 2002 Lymph node removal on left arm SLING OPER STRES INCONTINENCE TOT ABDOMINL HYSTERECTOMY 1984 ALLERGIES Augmentin [Amoxicillin-Pot Clavulanate], Codeine, Shellfish Containing Products, Bacitracin, Latex, and [place] MEDICATIONS Current Outpatient Medications Medication Sig aspirin, [...] comments: Fathe (more content not included)... Normal [facility] UA DIP, URINE (POC)on 2023 BILIRUBIN UA (POCT) Negative Negative [facility] CLARITY UA (POCT) Clear [facility] COLOR UA (POCT) Yellow [facility] GLUCOSE UA (POCT) Negative Negative mg/dL [facility] Hemoglobin Ql (U) Negative Negative [facility] KETONE UA (POCT) Negative Negative mg/dL [facility] LEUKOCYTES UA (POCT) Negative Negative [facility] NITRITE UA (POCT) Negative Negative [facility] PH UA (POCT) 6.0 4.5 - 8.0 [facility] Protein Ql (U) Negative Negative mg/dL [facility] SPECIFIC GRAVITY UA (POCT) 1.025 1.005 - 1.030 [facility] UROBILINOGEN UA (POCT) 0.2 Lisha l E.U./dL [facility] Location:[address], [address] [place] [address] POINT OF CARE [facility] CNCOon 08-03-2023 CNCO Letter Text Normal [facility] US DVT LOWER LTon 04-02-2023 US [...] imaged segments of the left lower extremity. Office Service Coordinator: PSCB Transcribe Date/Time: Apr 02 2023 4:53P Dictated by : GENOVEVA SCHERER MD This examination was interpreted and the report reviewed and electronically signed by: GENOVEVA SCHERER MD on Apr 02 2023 4:55PM EST [id number] Normal [facility] US Lower extremity vein - le fton 04-02-2023 [facility] Absolute lymphocyte countOrd ered By: Ponce Wang on 11-18-2022 Lymphocytes Auto (Unsp spec) [#/Vol] 3.50 10*3/uL 0.83-4.51 [facility] Basophil percentageOrdered B y: Ponce Wang on 11-18-2022 Basophils/100 WBC (Bld) 0.4 % 0-1 [facility] Chloride [Moles/Vol] 104 mmol/L 98-107 [facility] Eosinophils/100 WBC (Bld) 2.0 % 0-5 [facility] Glucose [Mass/Vol] 81 mg/dL 74-106 [facility] Neutrophils (Bld) [#/Vol] 10.8 10*3/uL 2.0-7.7 [facility] Neutrophils/100 WBC (Bld) 68.3 % 47-70 [facility] Potassium [Moles/Vol] 3.4 mmol/L 3.5-5.1 [facility] Sodium [Moles/Vol] 142 mmol/L 136-145 [facility] WBC (Bld) [#/Vol] 15.9 10*3/uL 4.4-11.0 [facility] Blood erythrocytes count (nu mber/volume)Ordered By: Ponce Wang on 11-18-2022 RBC (Bld) [#/Vol] 4.54 10*6/uL 4.2-5.4 [facility] Blood hemoglobin measurement (mass/volume)Ordered By: Ponce Wang on 11-18-2022 Hemoglobin (Bld) [Mass/Vol] 13.8 g/dL 12.0-15.0 [facility] Blood lymphocytes/100 leukoc ytesOrdered By: Ponce Wang on 11-18-2022 Lymphocytes/100 WBC (Bld) 22.0 % 19-41 [facility] Blood monocytes/100 leukocyt esOrdered By: Ponce Wang on 11-18-2022 Monocytes/100 WBC (Bld) 6.7 % 0-10 [facility] Blood platelet mean volumeOr dered By: Ponce Wang on 11-18-2022 Platelet mean volume (Bld) [Entitic vol] 11.8 fL 6.2-12.0 [facility] Determination of erythrocyte mean corpuscular volume (MCV)Ordered By: Ponce Wang on 11-18-2022 MCV (RBC) [Entitic vol] 95.4 fL 81-99 [facility] Hematocrit Auto (Bld) [Volum e fraction]Ordered By: Ponce Wang on 11-18-2022 Hematocrit (Bld) [Volume fraction] 43.3 % 37-47 [facility] - Chemistry and C hemistry - challengeOrdered By: Ponce Wang on 11-18-2022 CO2 [Moles/Vol] 35.0 mmol/L 21.0-32.0 [facility] Urea nitrogen/Creatinine [Mass ratio] 33.2 mg/mg 10-20 [facility] - Hematology and Cell countsOrdered By: Ponce Wang on 11-18-2022 Erythrocyte distribution width (RBC) [Entitic vol] 49.1 fL 35.1-43.9 [facility] Erythrocyte distribution width (RBC) [Ratio] 14.1 % 11.6-14.6 [facility] Immature granulocytes/100 WBC (Bld) 0.600 % 0.0-0.9 [facility] Comment on above: IG% - Immature Granu locytes (promyelocytes, myelocytes and metamyelocytes) > 1% indicates that a LEFT SHIFT is Present. MCH (RBC) [Entitic mass] 30.4 pg 27.0-32.0 [facility] Nucleated RBC/100 WBC (Bld) [Ratio] 0 % 0-5 [facility] MCHC Auto (RBC) [Mass/Vol]Or dered By: Ponce Wang on 11-18-2022 MCHC (RBC) [Mass/Vol] 31.9 g/dL 32-36 [facility] No Panel InformationOrdered By: Ponce Wang on 11-18-2022 Troponin I High Sensitivity 6 pg/mL 3.0-54.0 [facility] Comment on above: Please Note: New Cheryl t Units and Gender Specific Reference Ranges. For more information see Policy Stat Procedure [place] High Sensitivity Troponin (TNIH) and attachments. D-Dimer Quantitative (PE/DVT) 0.96 FEU/ug/m 0.27-0.49 [facility] Comment on above: D-Dimer ELEVATED (>0 .49): Additional studies and clinicalassessments are indicated to conclude diagnosis of:Deep Vein Thrombosis (DVT) or Pulmonary Embolism (PE)CRITICAL VALUE VERIFIED. CALLED TO [id number]/27/23 [address].RESULTS READ BACK BY SAME. Estimated Creatinine Clearance Calc 31.17 ml/min [facility] Estimated GFR (MDRD) Amer 100 mL/min >60 [facility] Comment on above: GFR Calc Estimated GFR (MDRD) Non-Af Amer 82 mL/min >60 [facility] Comment on above: Non- GFR Calc Platelets bldOrdered By: Adan Wang on 11-18-2022 Platelets (Bld) [#/Vol] 161 10*3/uL 150-450 [facility] Serum or plasma calcium dmitry urement (mass/volume)Ordered By: Ponce Wang on 11-18-2022 Calcium [Mass/Vol] 9.1 mg/dL 8.5-10.1 [facility] Serum or plasma creatinine m easurement (mass/volume)Ordered By: Ponce Wang on 11-18-2022 Creatinine [Mass/Vol] 0.72 mg/dL 0.55-1.02 [facility] Comment on above: The validity of the calculated GFR & GFRAA in patients over 70 years has not been determined. Clinical correlation is essential. Serum or plasma urea nitroge n measurement (mass/volume)Ordered By: Ponce Wang on 11-18-2022 Urea nitrogen [Mass/Vol] 24 mg/dL 7-18 [facility] Thin prep Papanicolaou smear with manual screeningOrdered By: Ponce Wang on 11-18-2022 Thin prep Papanicolaou smear with manual screening 3 5-15 [facility] ANES POSTPROC EVALon 023 ANES POSTPROC EVAL HNO ID: [id number] Author: Donnell Palmer DO Service: Anesthesiology Author Type: Physician Type: Anesthesia Postprocedure Evaluation Filed: 10/12/2022 1:09 PM Note Text: POST ANESTHESIA EVALUATION NOTE : 1940 Procedure Summary Date: 10/12/22 Room / Location: [place] [address] / [place] OR Anesthesia Start: 1121 Anesthesia Stop: 1241 [...] October 12, 2022 TIME: 1:09 PM CSN: [id number] [facility] ANES PRE-OPon 10-12-2022 ANES PRE-OP HNO ID: [id number] Author: Donnell Palmer DO Service: Anesthesiology Author Type: Physician Type: Anesthesia Preprocedure Evaluation Filed: 10/12/2022 10:47 AM Note Text: Summary: Breast Ca, Cervical Ca, Nonhogkin. Emphysema (PRN albuterol and O2), +1MR, +1-2TR ANESTHESIOLOGY DAY OF SURGERY NOTE : 1940 Procedure Information Date/Time: 10/12/22 1225 Procedure: AMPUTATION TOE(S) (Right) Location: [place] OR01 / [place] OR Surgeons: Danika Helms Estimated body mass [...] and consent discussed: yes. Patient / Responsible Alliance Party agrees to proceed: yes Patient / Surrogate [...] October 12, 2022 TIME: 10:46 AM CSN: [id number] [facility] OPERATIVE NOon 10-12-2022 OPERATIVE NO HNO ID: [id number] Author: Danika Helms Service: ? Author Type: Physician Type: Operative Report Filed: 10/13/2022 10:44 PM Note Text: OPERATIVE/PROCEDURE REPORT LOG ID: [id number] SURGERY/PROCEDURE DATE: 10/12/2022 INCISION/PROCEDURE START TIME: 11:49 AM INCISION CLOSE/PROCEDURE END TIME: 12:27 PM SURGEON(S)/PROCEDURALI ST(S) AND PEER EDUCATOR(S): Surgeon(s) and Role: * Danika Helms - Primary Registered Nurse Glue Spreader: Carlee Ruiz RN SURGERY/PROCEDURE(S): Right 2nd toe [...] DATE: October 12, 2022 TIME: 9:13 PM [facility] SURGICAL PATHOLOGYon 023 CASE REPORT [facility] Comment on above: Order Comment: Speci miguel angel Type: TISSUE SPECIMEN Ordering Facility: [facility] Address: [address] [place], [place] [id number] Result Comment: Surg ica Pathology Report Case: [id number] Authorizing Provider: Danika Helms Collected: 10/12/2022 11:53 AM Ordering Location: [facility] Surgery Received: 10/12/2022 02:58 PM Pathologist: Dianne Bullock MD Specimens: A) - DIGIT SECOND, RIGHT FOOT, right second toe amputation B) - SOFT TISSUE, right second toe neuroma Performed By: #### S #### [facility] CLIA [id number] [address] [place] [address] [place] CLINICAL HISTORY Normal [facility] Comment on above: Order Comment: Speci men Type: TISSUE SPECIMEN Ordering Facility: [facility] Address: [address] [place], [place] [id number] Result Comment: Pre- op diagnosis: Hammer toe of right foot [M20.41] Performed By: #### S #### [facility] CLIA [id number] [address] [place] [address] [place] FINAL DIAGNOSIS Normal [facility] Comment on above: Order Comment: Speci men Type: TISSUE SPECIMEN Ordering Facility: [facility] Address: [address] [place] [address] Result Comment: A. S econd digit, right foot, amputation: - Osteocartilaginous tissue with degenerative changes. - Skin with hyperkeratosis. B. Soft tissue, right second toe, excision: - Neuroma. Performed By: #### S #### [facility] CLIA [id number] [address] [place] [address] [place] FINAL PERFORMING LAB Normal [facility] Comment on above: Order Comment: Speci men Type: TISSUE SPECIMEN Ordering Facility: [facility] Address: [address] [place] [address] Result Comment: Diag nostic interpretation performed at [place] [address] CLIA# [id number] Sample Case Porter: Octaviano Glynn M.D. Performed By: #### S #### [facility] CLIA [id number] [address] [place] [address] GROSS DESCRIPTION [facility] Comment on above: Order Comment: Speci men Type: TISSUE SPECIMEN Ordering Facility: [facility] Address: [address] [place] [address] Result Comment: A. D IGIT SECOND, RIGHT FOOT Received in formalin designated right second toe amputation is a toe measuring 5.3 x 1.5 x 1.4 cm. On the medial aspect is a callus lesion measuring 0.5 x 0.4 cm. Sectioning the bone reveals a softened cut surface. A veterans employment representative section of the bone and skin lesion are submitted in cassette A1 after decalcification. B. SOFT TISSUE Received in formalin designated right second toe neuroma is an irregular segments of white rubbery tissue with yellow fatty tissue measuring 3 x 0.9 x 0.4 cm. The specimen is totally submitted in cassette B1. BF October 13, 2022 12:44 PM Gross examination performed at [facility], [address] [place] [address] Performed By: #### S #### [facility] CLIA [id number] [place] XR FLUOROSCOPYon 10-12-2022 [...] Epic for further discussion. IMPRESSION: As discussed Office Service Coordinator: TAMMY Transcribe Date/Time: Oct 12 2022 1:30P Dictated by : JANNY BOWMAN DO This examination was interpreted and the report reviewed and electronically signed by: JANNY BOWMAN DO on Oct 12 2022 1:34PM EST [id number] [facility] XR FOOT 3V AP/LAT/OBL RTon 0 10-12-2022 [...] radiopaque foreign body. IMPRESSION: Expected postoperative changes. Office Service Coordinator: TAMMY Transcribe Date/Time: Oct 12 2022 2:59P Dictated by : TRACEY HURTADO MD This examination was interpreted and the report reviewed and electronically signed by: TRACEY HURTADO MD on Oct 12 2022 3:01PM EST [id number] Normal [facility] CBC W Auto Differential pane l (Bld)on 06-15-2022 Basophils (Bld) [#/Vol] 0.06 10*3/uL <0.11 k/uL [facility] Basophils/100 WBC (Bld) 0.4 % C [facility] Differential cell count method Nom (Bld) Auto [facility] Eosinophils (Bld) [#/Vol] 0.19 10*3/uL <0.46 k/uL [facility] Eosinophils/100 WBC (Bld) 1.3 % [facility] Erythrocyte distribution width (RBC) [Ratio] 13.3 % 11.5 - 15.0 % [facility] Hematocrit (Bld) [Volume fraction] 43.3 % 36.0 - 46.0 % [facility] Hemoglobin (Bld) [Mass/Vol] 14.4 g/dL 11.5 - 15.5 g/dL [facility] Immature granulocytes (Bld) [#/Vol] 0.07 10*3/uL <0.10 k/uL [facility] Immature granulocytes/100 WBC (Bld) 0.5 % [facility] Lymphocytes (Bld) [#/Vol] 3.82 10*3/uL 1.00 - 4.00 k/uL [facility] Lymphocytes/100 WBC (Bld) 25.7 % [facility] MCH (RBC) [Entitic mass] 31.4 pg 26.0 - 34.0 pg [facility] MCHC (RBC) [Mass/Vol] 33.3 g/dL 30.5 - 36.0 g/dL [facility] MCV (RBC) [Entitic vol] 94.5 fL 80.0 - 100.0 fL [facility] Monocytes (Bld) [#/Vol] 1.03 10*3/uL High <0.87 k/uL [facility] Monocytes/100 WBC (Bld) 6.9 % C [facility] Neutrophils (Bld) [#/Vol] 9.70 10*3/uL High 1.45 - 7.50 k/uL [facility] Neutrophils/100 WBC (Bld) 65.2 % [facility] Nucleated RBC (Bld) [#/Vol] <0.01 k/uL [facility] Nucleated RBC/100 WBC (Bld) [Ratio] 0.0 /100 WBC [facility] Platelet mean volume (Bld) [Entitic vol] 12.2 fL 9.0 - 12.7 fL [facility] Platelets (Bld) [#/Vol] 193 10*3/uL 150 - 400 k/uL [facility] RBC (Bld) [#/Vol] 4.58 10*6/uL 3.90 - 5.2 0 m/uL [facility] WBC (Bld) [#/Vol] 14.87 10*3/uL High 3.70 - 11 .00 k/uL [facility] Absolute lymphocyte countOrd ered By: Dr. Kendrick on 04-15-2022 Lymphocytes Auto (Unsp spec) [#/Vol] 4.98 10*3/uL 0.83-4.51 [facility] Basophil percentageOrdered B y: Dr. Kendrick on 04-15-2022 Basophil percentage 0-5 SEEN /hpf 0-5 [facility] Basophils/100 WBC (Bld) 0.3 % 0-1 [facility] Bilirubin [Mass/Vol] 0.60 mg/dL 0.20-1.00 [facility] Comment on above: For patients on eltr ombopag therapy, use of Dimension [place] TBIL is not recommended. Chloride [Moles/Vol] 99 mmol/L 98-107 [facility] Eosinophils/100 WBC (Bld) 0.3 % 0-5 [facility] Glucose [Mass/Vol] 126 mg/dL 74-106 [facility] Comment on above: Fasting Glucose resu lt greater than or equal to 126 mg/dL suggests DIABETES MELLITUS per A.D.A. criteria. Neutrophils (Bld) [#/Vol] 9.6 10*3/uL 2.0-7.7 [facility] Neutrophils/100 WBC (Bld) 61.8 % 47-70 [facility] Potassium [Moles/Vol] 3.4 mmol/L 3.5-5.1 [facility] Protein [Mass/Vol] 6.5 g/dL 6.4-8.2 [facility] Sodium [Moles/Vol] 138 mmol/L 136-145 [facility] WBC (Bld) [#/Vol] 15.6 10*3/uL 4.4-11.0 [facility] Bilirubin Test strip Ql (U)O rdered By: Dr. Kendrick on 04-15-2022 Bilirubin Ql (U) Negative Negative [facility] Blood erythrocytes count (nu mber/volume)Ordered By: Dr. Kendrick on 04-15-2022 RBC (Bld) [#/Vol] 4.72 10*6/uL 4.2-5.4 [facility] Blood hemoglobin measurement (mass/volume)Ordered By: Dr. Kendrick on 04-15-2022 Hemoglobin (Bld) [Mass/Vol] 14.6 g/dL 12.0-15.0 [facility] Blood lymphocytes/100 leukoc ytesOrdered By: Dr. Kendrick on 04-15-2022 Lymphocytes/100 WBC (Bld) 32.0 % 19-41 [facility] Blood monocytes/100 leukocyt esOrdered By: Dr. Kendrick on 04-15-2022 Monocytes/100 WBC (Bld) 5.3 % 0-10 [facility] Blood platelet mean volumeOr dered By: Dr. Kendrick on 04-15-2022 Platelet mean volume (Bld) [Entitic vol] 11.8 fL 6.2-12.0 [facility] Determination of erythrocyte mean corpuscular volume (MCV)Ordered By: Dr. Kendrick on 04-15-2022 MCV (RBC) [Entitic vol] 91.5 fL 81-99 [facility] Direct bilirubinOrdered By: Dr. Kendrick on 04-15-2022 Bilirubin.direct [Mass/Vol] 0.19 mg/dL 0.00-0.30 [facility] Hematocrit Auto (Bld) [Volum e fraction]Ordered By: Dr. Kendrick on 04-15-2022 Hematocrit (Bld) [Volume fraction] 43.2 % 37-47 [facility] Hyaline casts LM.LPF (Urine sed) [#/Area]Ordered By: Dr. Kendrick on 04-15-2022 Hyaline casts (Urine sed) [#/Area] 0 /[LPF] 0-5 [facility] Ketones Test strip Ql (U)Ord ered By: Dr. Kendrick on 04-15-2022 Ketones Ql (U) 5 mg/dl Negative [facility] - Chemistry and C hemistry - challengeOrdered By: Dr. Kendrick on 04-15-2022 ALP [Catalytic activity/Vol] 79 U/L 45-117 [facility] ALT [Catalytic activity/Vol] 27 U/L 13-56 [facility] CO2 [Moles/Vol] 28.0 mmol/L 21.0-32.0 [facility] Globulin (S) [Mass/Vol] 2.8 g/dL 2.2-4.2 [facility] Urea nitrogen/Creatinine [Mass ratio] 44.0 mg/mg 10-20 [facility] - Hematology and Cell countsOrdered By: Dr. Kendrick on 04-15-2022 Erythrocyte distribution width (RBC) [Entitic vol] 44.9 fL 35.1-43.9 [facility] Erythrocyte distribution width (RBC) [Ratio] 13.4 % 11.6-14.6 [facility] Immature granulocytes/100 WBC (Bld) 0.300 % 0.0-0.9 [facility] Comment on above: IG% - Immature Granu locytes (promyelocytes, myelocytes and metamyelocytes) > 1% indicates that a LEFT SHIFT is Present. MCH (RBC) [Entitic mass] 30.9 pg 27.0-32.0 [facility] Nucleated RBC/100 WBC (Bld) [Ratio] 0 % 0-5 [facility] MCHC Auto (RBC) [Mass/Vol]Or dered By: Dr. Kendrick on 04-15-2022 MCHC (RBC) [Mass/Vol] 33.8 g/dL 32-36 [facility] Mucus LM Ql (Urine sed)Order ed By: Dr. Kendrick on 04-15-2022 Mucus Ql (Urine sed) 0 SEEN /hpf [facility] Nitrite Test strip Ql (U)Ord ered By: Dr. Kendrick on 04-15-2022 Nitrite Ql (U) Negative Negative [facility] No Panel InformationOrdered By: Dr. Kendrick on 04-15-2022 Estimated Creatinine Clearance Calc 36.55 ml/min [facility] Estimated GFR (MDRD) Amer 89 mL/min >60 [facility] Comment on above: GFR Calc Estimated GFR (MDRD) Non-Af Amer 74 mL/min >60 [facility] Comment on above: Non- GFR Calc Troponin I High Sensitivity 4 pg/mL 3.0-54.0 [facility] Comment on above: Please Note: New Cheryl t Units and Gender Specific Reference Ranges. For more information see Policy Stat Procedure [place] High Sensitivity Troponin (TNIH) and attachments. Platelets bldOrdered By: Dr. Kendrick on 04-15-2022 Platelets (Bld) [#/Vol] 200 10*3/uL 150-450 [facility] Protein Test strip Ql (U)Ord ered By: Dr. Kendrick on 04-15-2022 Protein Ql (U) 15 mg/dl Negative [facility] Serum or plasma albumin dmitry urement (mass/volume)Ordered By: Dr. Kendrick on 04-15-2022 Albumin [Mass/Vol] 3.7 g/dL 3.2-5.0 [facility] Serum or plasma calcium dmitry urement (mass/volume)Ordered By: Dr. Kendrick on 04-15-2022 Calcium [Mass/Vol] 9.8 mg/dL 8.5-10.1 [facility] Serum or plasma creatinine m easurement (mass/volume)Ordered By: Dr. Kendrick on 04-15-2022 Creatinine [Mass/Vol] 0.80 mg/dL 0.55-1.02 [facility] Comment on above: The validity of the calculated GFR & GFRAA in patients over 70 years has not been determined. Clinical correlation is essential. Serum or plasma urea nitroge n measurement (mass/volume)Ordered By: Dr. Kendrick on 04-15-2022 Urea nitrogen [Mass/Vol] 35 mg/dL 7-18 [facility] Squamous epithelial cells de tection in urine sediment by light microscopyOrdered By: Dr. Kendrick on 04-15-2022 Epithelial cells.squamous LM Ql (Urine sed) 0-5 SEEN /hpf 5-10 [facility] Thin prep Papanicolaou smear with manual screeningOrdered By: Dr. Kendrick on 04-15-2022 Thin prep Papanicolaou smear with manual screening 21 U/L 15-37 [facility] Thin prep Papanicolaou smear with manual screening 11 5-15 [facility] Urine blood detectionOrdered By: Dr. Kendrick on 04-15-2022 RBC Ql (U) Negative Negative [facility] RBC Ql (U) 0 SEEN /hpf 0-5 [facility] Urine clarityOrdered By: Dr. Kendrick on 04-15-2022 Clarity (U) Sl. Cloudy Clear [facility] Urine color determinationOrd ered By: Dr. Kendrick on 04-15-2022 Color (U) Yellow Yellow [facility] Urine glucose detectionOrder ed By: Dr. Kendrick on 04-15-2022 Glucose Ql (U) Normal mg/dl Normal [facility] Urine leukocyte esterase det ection by dipstickOrdered By: Dr. Kendrick on 04-15-2022 Leukocyte esterase Test strip Ql (U) 100 /ul Negative [facility] Urine pHOrdered By: Dr. Terry horvath on 04-15-2022 pH (U) 6.0 [pH] 5.0 - 8.0 [facility] Urine sediment bacteria coun t by microscopy (number/high power field)Ordered By: Dr. Kendrick on 04-15-2022 Bacteria LM.HPF (Urine sed) [#/Area] 0 /[HPF] None Seen [facility] Urine specific gravity measu rementOrdered By: Dr. Kendrick on 04-15-2022 Specific gravity (U) [Rel density] 1.020 1.002-1.030 [facility] Urobilinogen Auto test strip Ql (U)Ordered By: Dr. Kendrick on 04-15-2022 Urobilinogen Ql (U) Normal mg/dl Normal [facility] XR CHEST 2V FRONTAL/LATon [facility] XR Chest PA and Lateralon IMPRESSION: No acute radiographic abnormality. Office Service Coordinator: PSCB Transcribe Date/Time: Mar 16 2022 11:37A Dictated by : DOMI HOLLINGSWORTH MD This examination was interpreted and the report reviewed and electronically signed by: DOMI HOLLINGSWORTH MD on Mar 16 2022 11:38AM [facility] DIVISION OF RADIOLOGY * * *Final Report* [...] changes. DIVISION OF RADIOLOGY Provider, Kiera Onofre [facility] - 03/16/2022 * * *Final Report* [...] changes. IMPRESSION IMPRESSION: No acute radiographic abnormality. Office Service Coordinator: PSCB Transcribe Date/Time: Mar 16 2022 11:37A Dictated by : DOMI HOLLINGSWORTH MD This examination was interpreted and the report reviewed and electronically signed by: DOMI HOLLINGSWORTH MD on Mar 16 2022 11:38AM EST [facility] Radiology Study observation (narrative) Johann [facility] XR Chest PA and LateralOrder ed By: Ccf Provider on 03-16-2022 [facility] XR Lumbar spine 3 Viewson IMPRESSION: Lumbar spine degenerative changes as described above. Office Service Coordinator: TAMMY Transcribe Date/Time: Sep 05 2021 3:24P [...] spine are presented. FINDINGS: There are five bqv-fog-evxdjtj lumbar vertebrae. No acute fractures demonstrated. There is grade 1 L4 on L5 anterolisthesis. The disc spaces are grossly preserved. There is mild osteophyte formation, with facet arthrosis. Kissing spine seen on lateral view. The bones are osteopenic. Others: There are vascular calcifications ZZZ_DO_NOT_ USE_DIVISIO N OF RADIOLOGY [facility] * * *Final [...] spine are presented. FINDINGS: There are five pdp-dis-kvkvgrp lumbar vertebrae. No acute fractures demonstrated. There is grade 1 L4 on L5 anterolisthesis. The disc spaces are grossly preserved. There is mild osteophyte formation, with facet arthrosis. Kissing spine seen on lateral view. The bones are osteopenic. Others: There are vascular calcifications IMPRESSION IMPRESSION: Lumbar spine degenerative changes as described above. Office Service Coordinator: PSCB Transcribe Date/Time: Sep 05 2021 3:24P Dictated by : HALINA GARBER MD This examination was interpreted and the report reviewed and electronically signed by: HALINA GARBER MD on Sep 05 2021 3:29PM EST [facility] XR Lumbar spine 3 ViewsOrder ed By: Ccf Provider on 09-05-2021 [facility] XR Lumbar spine 3 Viewson Radiology Study observation (narrative) [facility] MRI BRAIN WO/W IVCONon 05-26 [facility] XR Chest PA and Lateralon IMPRESSION: Stable chest. No acute cardiopulmonary process. Office Service Coordinator: [facility] Transcribe Date/Time: May 06 2021 [...] intact DIVISION OF RADIOLOGY Provider, Terrence allen Francis - 05/06/2021 * * *Final Report* * [...] IMPRESSION: Stable chest. No acute cardiopulmonary process. 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 -Nonspecific ST depression -Seen with left ventricular hypertrophy (strain) or digitalis effect. ABNORMAL Invalid Interpretation Code [facility] Work Phone: GE use only - for Link[employer]ic import when terms are not otherwise specified 393 ms Invalid Interpretation Code [facility] Work Phone: [phone] P wave axis, electrocardiogram 64 deg Invalid Interpretation Code [facility] Work Phone: [phone] VA interval, electrocardiogram 140 ms Invalid Interpretation Code [facility] Work Phone: [phone] Pulse (Heart Rate) 56 /min Invalid Interpretation Code [facility] Work Phone: [phone] QRS axis, electrocardiogram 41 deg Invalid Interpretation Code [facility] Work Phone: [phone] QRS duration, electrocardiogram 84 ms Invalid Interpretation Code [facility] Work Phone: [phone] QT interval, electrocardiogram new path ms Invalid Interpretation Code [facility] Work Phone: [phone] T wave axis, electrocardiogram 42 deg Invalid Interpretation Code [facility] Work Phone: [phone] Clinical Lists Update: [employer] actuary 10-21-2016 Tobacco smoking status NHIS Former smoker [facility] Work Phone: [phone] Tobacco use [facility] Former smoker Invalid Interpretation Code [facility] Work Phone: [phone] Vital Signs Date Time Vital Sign Value Performing Clinician Ziggy arriola 08-22-2024 22:00-0400 Body temperature 98.8 [degF] Dr. Donnell Dooley MD Work Phone: [facility] 08-22-2024 22:00-0400 Diastolic blood pressure 88 mm[Hg] Dr. Donnell Dooley MD Work Phone: [facility] 08-22-2024 22:00-0400 Heart rate 81 /min Dr. Donnell Dooley MD Work Phone: [facility] 08-22-2024 22:00-0400 Inhaled oxygen flow rate 2 L/min Dr. Donnell Dooley MD Work Phone: [facility] 08-22-2024 22:00-0400 Respiratory rate 24 /min Dr. Donnell Dooley MD Work Phone: [facility] 08-22-2024 22:00-0400 SaO2% (BldA) [Mass fraction] 98 % Dr. Donnell Dooley MD Work Phone: [facility] 08-22-2024 22:00-0400 Systolic blood pressure 121 mm[Hg] Dr. Donnell Dooley MD Work Phone: [facility] 08-22-2024 17:02-0400 Body mass index (BMI) [Ratio] 17.4 kg/m2 Dr. Donnell Dooley MD Work Phone: [facility] 08-22-2024 17:02-0400 Body weight 41.[address] Donnell Dooley MD Work Phone: [facility] 08-22-2024 16:32-0400 Body height 154.[address] Donnell Dooley MD Work Phone: [facility] 01-14-2024 14:07-0500 Body height 149.9 cm Donnell Dooley MD Work Phone: [facility] 01-14-2024 14:07-0500 Body mass index (BMI) [Ratio] 20.44 kg/m2 Donnell Dooley MD Work Phone: [facility] 01-14-2024 14:07-0500 Body weight 45.9 kg Donnell Dooley MD Work Phone: [facility] 01-14-2024 14:07-0500 Diastolic blood pressure 66 mm[Hg] Donnell Dooley MD Work Phone: [facility] 01-14-2024 14:07-0500 Heart rate 59 /min Donnell Dooley MD Work Phone: [facility] 01-14-2024 14:07-0500 SaO2% (BldA) [Mass fraction] 99 % Donnell Dooley MD Work Phone: [facility] 01-14-2024 14:07-0500 Systolic blood pressure 118 mm[Hg] Donnell Dooley MD Work Phone: [facility] 08-14-2023 13:47-0400 Body mass index (BMI) [Ratio] 18.18 kg/m2 Sav Mejía APRN.CNP Work Phone: [facility] 08-14-2023 13:47-0400 Body temperature 98.1 [degF] Sav Mejía RELIABILITY TECHNOLOGIST.PART TIME FLEXIBLE CLERK Work Phone: [facility] 08-14-2023 13:47-0400 Body weight 42 kg Sav Mejía RELIABILITY TECHNOLOGIST.PART TIME FLEXIBLE CLERK Work Phone: [facility] 08-14-2023 13:47-0400 Diastolic blood pressure 78 mm[Hg] Sav Mejía RELIABILITY TECHNOLOGIST.PART TIME FLEXIBLE CLERK Work Phone: [facility] 08-14-2023 13:47-0400 Heart rate 63 /min Sav Mejía RELIABILITY TECHNOLOGIST.PART TIME FLEXIBLE CLERK Work Phone: [facility] 08-14-2023 13:47-0400 Respiratory rate 20 /min Sav Mejía RELIABILITY TECHNOLOGIST.PART TIME FLEXIBLE CLERK Work Phone: [facility] 08-14-2023 13:47-0400 SaO2% (BldA) [Mass fraction] 98 % Sav Mejía RELIABILITY TECHNOLOGIST.PART TIME FLEXIBLE CLERK Work Phone: [facility] 08-14-2023 13:47-0400 Systolic blood pressure 131 mm[Hg] Sav Mejía RELIABILITY TECHNOLOGIST.PART TIME FLEXIBLE CLERK Work Phone: [facility] 08-04-2023 09:13-0400 Diastolic blood pressure 82 mm[Hg] Morelia Haagen RELIABILITY TECHNOLOGIST.PART TIME FLEXIBLE CLERK Work Phone: [facility] 08-04-2023 09:13-0400 Heart rate 84 /min Morelia Haagen RELIABILITY TECHNOLOGIST.PART TIME FLEXIBLE CLERK Work Phone: [facility] 08-04-2023 09:13-0400 Respiratory rate 16 /min Morelia Haagen RELIABILITY TECHNOLOGIST.PART TIME FLEXIBLE CLERK Work Phone: [facility] 08-04-2023 09:13-0400 Systolic blood pressure 124 mm[Hg] Morelia Haagen RELIABILITY TECHNOLOGIST.PART TIME FLEXIBLE CLERK Work Phone: [facility] 06-28-2023 10:04-0400 Body mass index (BMI) [Ratio] 18.26 kg/m2 Donnell Dooley MD Work Phone: [facility] 06-28-2023 10:04-0400 Body weight 42.19 kg Donnell Dooley MD Work Phone: [facility] 06-28-2023 10:04-0400 Diastolic blood pressure 72 mm[Hg] Donnell Dooley MD Work Phone: [facility] 06-28-2023 10:04-0400 Heart rate 64 /min Donnell Dooley MD Work Phone: [facility] 06-28-2023 10:04-0400 SaO2% (BldA) [Mass fraction] 99 % Donnell Dooley MD Work Phone: [facility] 06-28-2023 10:04-0400 Systolic blood pressure 122 mm[Hg] Donnell Dooley MD Work Phone: [facility] 05-18-2023 11:05-0400 Body weight 44.73 kg Amber Suppan RELIABILITY TECHNOLOGIST.BANDAGE WINDING MACHINE OPERATOR Work Phone: [facility] 05-18-2023 11:05-0400 Diastolic blood pressure 80 mm[Hg] Amber Suppan RELIABILITY TECHNOLOGIST.BANDAGE WINDING MACHINE OPERATOR Work Phone: [facility] 05-18-2023 11:05-0400 Heart rate 70 /min Amber Suppan RELIABILITY TECHNOLOGIST.BANDAGE WINDING MACHINE OPERATOR Work Phone: [facility] 05-18-2023 11:05-0400 SaO2% (BldA) [Mass fraction] 99 % Amber Suppan RELIABILITY TECHNOLOGIST.BANDAGE WINDING MACHINE OPERATOR Work Phone: [facility] 05-18-2023 11:05-0400 Systolic blood pressure 112 mm[Hg] Amber Suppan RELIABILITY TECHNOLOGIST.BANDAGE WINDING MACHINE OPERATOR Work Phone: [facility] 05-04-2023 14:19-0400 Body temperature 98.8 [degF] Amber Suppan RELIABILITY TECHNOLOGIST.BANDAGE WINDING MACHINE OPERATOR Work Phone: [facility] 05-04-2023 14:19-0400 Body weight 43.09 kg Amber Suppan RELIABILITY TECHNOLOGIST.BANDAGE WINDING MACHINE OPERATOR Work Phone: [facility] 05-04-2023 14:19-0400 Diastolic blood pressure 64 mm[Hg] Amber Suppan RELIABILITY TECHNOLOGIST.BANDAGE WINDING MACHINE OPERATOR Work Phone: [facility] 05-04-2023 14:19-0400 Heart rate 71 /min Amber Suppan RELIABILITY TECHNOLOGIST.BANDAGE WINDING MACHINE OPERATOR Work Phone: [facility] 05-04-2023 14:19-0400 Respiratory rate 14 /min Amber Suppan RELIABILITY TECHNOLOGIST.BANDAGE WINDING MACHINE OPERATOR Work Phone: [facility] 05-04-2023 14:19-0400 SaO2% (BldA) [Mass fraction] 95 % Amber Suppan RELIABILITY TECHNOLOGIST.BANDAGE WINDING MACHINE OPERATOR Work Phone: [facility] 05-04-2023 14:19-0400 Systolic blood pressure 102 mm[Hg] Amber Suppan RELIABILITY TECHNOLOGIST.BANDAGE WINDING MACHINE OPERATOR Work Phone: [facility] 04-05-2023 13:39-0500 Body weight 42.64 kg Dallas Bharati RELIABILITY TECHNOLOGIST.PART TIME FLEXIBLE CLERK Work Phone: [facility] 04-05-2023 13:39-0500 Diastolic blood pressure 78 mm[Hg] Dallas Bharati RELIABILITY TECHNOLOGIST.PART TIME FLEXIBLE CLERK Work Phone: [facility] 04-05-2023 13:39-0500 Heart rate 80 /min Dallas Bharati RELIABILITY TECHNOLOGIST.PART TIME FLEXIBLE CLERK Work Phone: [facility] 04-05-2023 13:39-0500 Respiratory rate 16 /min Dallas Bharati RELIABILITY TECHNOLOGIST.PART TIME FLEXIBLE CLERK Work Phone: [facility] 04-05-2023 13:39-0500 Systolic blood pressure 118 mm[Hg] Dallas Bharati RELIABILITY TECHNOLOGIST.PART TIME FLEXIBLE CLERK Work Phone: [facility] 04-02-2023 12:56-0500 Body weight 44.54 kg Dallas Bharati RELIABILITY TECHNOLOGIST.PART TIME FLEXIBLE CLERK Work Phone: [facility] 04-02-2023 12:56-0500 Diastolic blood pressure 70 mm[Hg] Dallas Bharati RELIABILITY TECHNOLOGIST.PART TIME FLEXIBLE CLERK Work Phone: [facility] 04-02-2023 12:56-0500 Heart rate 69 /min Dallas Bharati RELIABILITY TECHNOLOGIST.PART TIME FLEXIBLE CLERK Work Phone: [facility] 04-02-2023 12:56-0500 SaO2% (BldA) [Mass fraction] 96 % Dallas Bharati RELIABILITY TECHNOLOGIST.PART TIME FLEXIBLE CLERK Work Phone: [facility] 04-02-2023 12:56-0500 Systolic blood pressure 110 mm[Hg] Dallas Bharati RELIABILITY TECHNOLOGIST.PART TIME FLEXIBLE CLERK Work Phone: [facility] 01-27-2023 09:52-0500 Body height 152 cm Margarito Shields MD Work Phone: [facility] 01-27-2023 09:52-0500 Body temperature 98.4 [degF] Margarito Shields MD Work Phone: [facility] 01-27-2023 09:52-0500 Body weight 40.37 kg Margarito Shields MD Work Phone: [facility] 01-27-2023 09:52-0500 Diastolic blood pressure 77 mm[Hg] Margarito Shields MD Work Phone: [facility] 01-27-2023 09:52-0500 Heart rate 89 /min Margarito Shields MD Work Phone: [facility] 01-27-2023 09:52-0500 SaO2% (BldA) [Mass fraction] 100 % Margarito Shields MD Work Phone: [facility] 01-27-2023 09:52-0500 Systolic blood pressure 119 mm[Hg] Margarito Shields MD Work Phone: [facility] 12-23-2022 11:04-0400 Body height 152.4 cm Donnell Dooley MD Work Phone: [facility] 12-23-2022 11:04-0400 Body weight 42.64 kg Donnell Dooley MD Work Phone: [facility] 12-23-2022 11:04-0400 Diastolic blood pressure 70 mm[Hg] Donnell Dooley MD Work Phone: [facility] 12-23-2022 11:04-0400 Heart rate 78 /min Donnell Dooley MD Work Phone: [facility] 12-23-2022 11:04-0400 SaO2% (BldA) [Mass fraction] 95 % Donnell Dooley MD Work Phone: [facility] 12-23-2022 11:04-0400 Systolic blood pressure 94 mm[Hg] Donnell Dooley MD Work Phone: [facility] 12-04-2022 13:36-0400 Body height 154.[address] Donnell Dooley Work Phone: [facility] 12-04-2022 13:36-0400 Body mass index (BMI) [Ratio] 18.3 kg/m2 Dr. Donnell Dooley Work Phone: 8(090)[phone] [place] [address] 12-04-2022 13:36-0400 Body temperature 98.1 [degF] Dr. Donnell Dooley Work Phone: 6(969)391-307811 [place] [address] 12-04-2022 13:36-0400 Body weight 44.[address] Donnell Dooley Work Phone: 2(244)629-990011 [place] [address] 12-04-2022 13:36-0400 Diastolic blood pressure 72 mm[Hg] Dr. Donnell Dooley Work Phone: 8(546)981-036476 [place] [address] 12-04-2022 13:36-0400 Heart rate 82 /min Dr. Donnell Dooley Work Phone: 4(072)331-635776 [place] [address] 12-04-2022 13:36-0400 Respiratory rate 28 /min Dr. Donnell Dooley Work Phone: 9(948)873-002476 [place] [address] 12-04-2022 13:36-0400 SaO2% (BldA) [Mass fraction] 95 % Dr. Donnell Dooley Work Phone: 1(341)332-226976 [place] [address] 12-04-2022 13:36-0400 Systolic blood pressure 122 mm[Hg] Dr. Donnell Dooley Work Phone: [facility] 11-18-2022 14:30-0400 Diastolic blood pressure 82 mm[Hg] Dr. Donnell Dooley Work Phone: [facility] 11-18-2022 14:30-0400 Heart rate 66 /min Dr. Donnell Dooley Work Phone: [facility] 11-18-2022 14:30-0400 Respiratory rate 21 /min Dr. Donnell Dooley Work Phone: 5(634)[phone] [address] 11-18-2022 14:30-0400 SaO2% (BldA) [Mass fraction] 96 % Dr. Donnell Dooley Work Phone: [facility] 11-18-2022 14:30-0400 Systolic blood pressure 141 mm[Hg] Dr. Donnell Dooley Work Phone: 8(944)225-523011 [place] [address] 11-18-2022 10:37-0400 Body mass index (BMI) [Ratio] 18.3 kg/m2 Dr. Donnell Dooley Work Phone: 4(312)889-917111 [place] [address] 11-18-2022 10:37-0400 Body temperature 97.7 [degF] Dr. Donnell Dooley Work Phone: [facility] 11-18-2022 10:37-0400 Body weight [address] Donnell Dooley Work Phone: [facility] 10-05-2022 19:26-0400 Body weight 42.19 kg Donnell Dooley MD Work Phone: [facility] 10-05-2022 19:26-0400 Diastolic blood pressure 82 mm[Hg] Donnell Dooley MD Work Phone: [facility] 10-05-2022 19:26-0400 Heart rate 63 /min Donnell Dooley MD Work Phone: [facility] 10-05-2022 19:26-0400 SaO2% (BldA) [Mass fraction] 98 % Donnell Dooley MD Work Phone: [facility] 10-05-2022 19:26-0400 Systolic blood pressure 132 mm[Hg] Donnell Dooley MD Work Phone: [facility] 08-11-2022 06:23-0400 Body mass index (BMI) [Ratio] 17.2 kg/m2 Dr. Donnell Dooley Work Phone: [facility] 08-11-2022 06:23-0400 Body temperature 97.6 [degF] Dr. Donnell Dooley Work Phone: [facility] 08-11-2022 06:23-0400 Body weight 41.[address] Donnell Dooley Work Phone: [facility] 08-11-2022 06:23-0400 Diastolic blood pressure 71 mm[Hg] Dr. Donnell Dooley Work Phone: [facility] 08-11-2022 06:23-0400 Heart rate 61 /min Dr. Donnell Dooley Work Phone: [facility] 08-11-2022 06:23-0400 Respiratory rate 18 /min Dr. Donnell Dooley Work Phone: [facility] 08-11-2022 06:23-0400 SaO2% (BldA) [Mass fraction] 93 % Dr. Donnell Dooley Work Phone: [facility] 08-11-2022 06:23-0400 Systolic blood pressure 106 mm[Hg] Dr. Donnell Dooley Work Phone: [facility] 06-15-2022 10:03-0400 Body height 152.4 cm Donnell Dooley MD Work Phone: [facility] 06-15-2022 10:03-0400 Body weight 42.37 kg Donnell Dooley MD Work Phone: [facility] 06-15-2022 10:03-0400 Diastolic blood pressure 72 mm[Hg] Donnell Dooley MD Work Phone: [facility] 06-15-2022 10:03-0400 Heart rate 60 /min Donnell Dooley MD Work Phone: [facility] 06-15-2022 10:03-0400 SaO2% (BldA) [Mass fraction] 97 % Donnell Dooley MD Work Phone: [facility] 06-15-2022 10:03-0400 Systolic blood pressure 120 mm[Hg] Donnell Dooley MD Work Phone: [facility] 04-15-2022 15:40-0500 Heart rate 62 /min Dr. Donnell Dooley Work Phone: [facility] 04-15-2022 15:40-0500 Respiratory rate 21 /min Dr. Donnell Dooley Work Phone: [facility] 04-15-2022 15:40-0500 SaO2% (BldA) [Mass fraction] 100 % Dr. Donnell Dooley Work Phone: [facility] 04-15-2022 15:31-0500 Diastolic blood pressure 84 mm[Hg] Dr. Donnell Dooley Work Phone: [facility] 04-15-2022 15:31-0500 Systolic blood pressure 147 mm[Hg] Dr. Donnell Dooley Work Phone: [facility] 04-15-2022 12:48-0500 Body height 154.[address] Donnell Dooley Work Phone: [facility] 04-15-2022 12:48-0500 Body mass index (BMI) [Ratio] 16.9 kg/m2 Dr. Donnell Dooley Work Phone: [facility] 04-15-2022 12:48-0500 Body temperature 98 [degF] Dr. Donnell Dooley Work Phone: [facility] 04-15-2022 12:48-0500 Body weight 40.[address] Donnell Dooley Work Phone: [facility] 03-16-2022 10:27-0500 Body temperature 97.3 [degF] Patsy Valencia APRN.CNP Work Phone: [facility] 03-16-2022 10:27-0500 Body weight 40.01 kg Patsy Valencia APRN.PART TIME FLEXIBLE CLERK Work Phone: [facility] 03-16-2022 10:27-0500 Diastolic blood pressure 78 mm[Hg] Patsy Valencia APRN.PART TIME FLEXIBLE CLERK Work Phone: [facility] 03-16-2022 10:27-0500 Heart rate 69 /min Patsy Valencia APRN.PART TIME FLEXIBLE CLERK Work Phone: [facility] 03-16-2022 10:27-0500 Respiratory rate 18 /min Patsy Valencia APRN.PART TIME FLEXIBLE CLERK Work Phone: [facility] 03-16-2022 10:27-0500 SaO2% (BldA) [Mass fraction] 99 % Patsy Valencia APRN.PART TIME FLEXIBLE CLERK Work Phone: [facility] 03-16-2022 10:27-0500 Systolic blood pressure 116 mm[Hg] Patsy Valencia APRN.PART TIME FLEXIBLE CLERK Work Phone: [facility] 01-07-2022 10:18-0500 Body mass index (BMI) [Ratio] 17.4 kg/m2 Dr. Donnell Dooley Work Phone: [facility] 01-07-2022 10:18-0500 Body temperature 96.8 [degF] Dr. Donnell Dooley Work Phone: [facility] 01-07-2022 10:18-0500 Body weight 41.[address] Donnell Dooley Work Phone: [facility] 01-07-2022 10:18-0500 Diastolic blood pressure 67 mm[Hg] Dr. Donnell Dooley Work Phone: [facility] 01-07-2022 10:18-0500 Heart rate 72 /min Dr. Donnell Dooley Work Phone: [facility] 01-07-2022 10:18-0500 Respiratory rate 18 /min Dr. Donnell Dooley Work Phone: [facility] 01-07-2022 10:18-0500 SaO2% (BldA) [Mass fraction] 93 % Dr. Donnell Dooley Work Phone: [facility] 01-07-2022 10:18-0500 Systolic blood pressure 111 mm[Hg] Dr. Donnell Dooley Work Phone: [facility] 12-09-2021 13:20-0400 Body height 152.4 cm Donnell Dooley MD Work Phone: [facility] 12-09-2021 13:20-0400 Body weight 40.1 kg Donnell Dooley MD Work Phone: [facility] 12-09-2021 13:20-0400 Diastolic blood pressure 72 mm[Hg] Donnell Dooley MD Work Phone: [facility] 12-09-2021 13:20-0400 Systolic blood pressure 114 mm[Hg] Donnell Dooley MD Work Phone: [facility] 09-12-2021 11:42-0400 Body height 154.[address] Donnell Dooley Work Phone: [facility] Work Phone: 09-12-2021 11:42-0400 Body mass index (BMI) [Ratio] 18.3 kg/m2 Dr. Donnell Dooley Work Phone: [facility] Work Phone: 09-12-2021 11:42-0400 Body temperature 97.4 [degF] Dr. Donnell Dooley Work Phone: [facility] Work Phone: 09-12-2021 11:42-0400 Body weight 43.[address] Donnell Dooley Work Phone: [facility] Work Phone: 09-12-2021 11:42-0400 Diastolic blood pressure 85 mm[Hg] Dr. Donnell Dooley Work Phone: [facility] Work Phone: 09-12-2021 11:42-0400 Heart rate 71 /min Dr. Donnell Dooley Work Phone: [facility] Work Phone: 09-12-2021 11:42-0400 Respiratory rate 16 /min Dr. Donnell Dooley Work Phone: [facility] Work Phone: 09-12-2021 11:42-0400 SaO2% (BldA) [Mass fraction] 97 % Dr. Donnell Dooley Work Phone: [facility] Work Phone: 09-12-2021 11:42-0400 Systolic blood pressure 147 mm[Hg] Dr. Donnell Dooley Work Phone: [facility] Work Phone: 09-04-2021 15:56-0400 Body weight 44 kg Donnell Dooley MD Work Phone: [facility] 09-04-2021 15:56-0400 Diastolic blood pressure 82 mm[Hg] Donnell Dooley MD Work Phone: [facility] 09-04-2021 15:56-0400 Heart rate 72 /min Donnell Dooley MD Work Phone: [facility] 09-04-2021 15:56-0400 Systolic blood pressure 162 mm[Hg] Donnell Dooley MD Work Phone: [facility] 08-08-2021 11:47-0400 Diastolic blood pressure 90 mm[Hg] Dr. Donnell Dooley Work Phone: [facility] Work Phone: 08-08-2021 11:47-0400 Systolic blood pressure 150 mm[Hg] Dr. Donnell Dooley Work Phone: [facility] Work Phone: 08-08-2021 11:44-0400 Body mass index (BMI) [Ratio] 18.3 kg/m2 Dr. Donnell Dooley Work Phone: [facility] Work Phone: 08-08-2021 11:44-0400 Body temperature 99.1 [degF] Dr. Donnell Dooley Work Phone: [facility] Work Phone: 08-08-2021 11:44-0400 Body weight 43.[address] Donnell Dooley Work Phone: [facility] Work Phone: 08-08-2021 11:44-0400 Heart rate 72 /min Dr. Donnell Dooley Work Phone: [facility] Work Phone: 08-08-2021 11:44-0400 Respiratory rate 20 /min Dr. Donnell Dooley Work Phone: [facility] Work Phone: 08-08-2021 11:44-0400 SaO2% (BldA) [Mass fraction] 100 % Dr. Donnell Dooley Work Phone: [facility] Work Phone: 08-04-2021 11:23-0400 Body temperature 98.1 [degF] Jane Mcmillan MD Work Phone: [facility] 08-04-2021 11:23-0400 Body weight 43.55 kg Jane Mcmillan MD Work Phone: [facility] 08-04-2021 11:23-0400 Diastolic blood pressure 77 mm[Hg] Jane Mcmillan MD Work Phone: [facility] 08-04-2021 11:23-0400 Heart rate 54 /min Jane Mcmillan MD Work Phone: [facility] 08-04-2021 11:23-0400 Systolic blood pressure 125 mm[Hg] Jane Mcmillan MD Work Phone: [facility] 07-03-2021 10:04-0400 Body mass index (BMI) [Ratio] 18.1 kg/m2 Dr. Donnell Dooley Work Phone: [facility] Work Phone: 07-03-2021 10:04-0400 Body temperature 97.7 [degF] Dr. Donnell Dooley Work Phone: [facility] Work Phone: 07-03-2021 10:04-0400 Body weight 43.[address] Donnell Dooley Work Phone: [facility] Work Phone: 07-03-2021 10:04-0400 Diastolic blood pressure 77 mm[Hg] Dr. Donnell Dooley Work Phone: [facility] Work Phone: 07-03-2021 10:04-0400 Heart rate 74 /min Dr. Donnell Dooley Work Phone: [facility] Work Phone: 07-03-2021 10:04-0400 Respiratory rate 17 /min Dr. Donnell Dooley Work Phone: [facility] Work Phone: 07-03-2021 10:04-0400 SaO2% (BldA) [Mass fraction] 98 % Dr. Donnell Dooley Work Phone: [facility] Work Phone: 07-03-2021 10:04-0400 Systolic blood pressure 125 mm[Hg] Dr. Donnell Dooley Work Phone: [facility] Work Phone: 06-04-2021 14:05-0400 Body weight 43.55 kg Donnell Dooley MD Work Phone: [facility] 06-04-2021 14:05-0400 Diastolic blood pressure 82 mm[Hg] Donnell Dooley MD Work Phone: [facility] 06-04-2021 14:05-0400 Heart rate 70 /min Donnell Dooley MD Work Phone: [facility] 06-04-2021 14:05-0400 SaO2% (BldA) [Mass fraction] 99 % Donnell Dooley MD Work Phone: [facility] 06-04-2021 14:05-0400 Systolic blood pressure 138 mm[Hg] Donnell Dooley MD Work Phone: [facility] 05-29-2021 09:44-0400 Body mass index (BMI) [Ratio] 18.7 kg/m2 Dr. Donnell Dooley Work Phone: [facility] Work Phone: 05-29-2021 09:44-0400 Body weight 44.[address] Donnell Dooley Work Phone: [facility] Work Phone: 05-29-2021 09:44-0400 Diastolic blood pressure 79 mm[Hg] Dr. Donnell Dooley Work Phone: [facility] Work Phone: 05-29-2021 09:44-0400 Heart rate 72 /min Dr. Donnell Dooley Work Phone: [facility] Work Phone: 05-29-2021 09:44-0400 SaO2% (BldA) [Mass fraction] 91 % Dr. Donnell Dooley Work Phone: [facility] Work Phone: 05-29-2021 09:44-0400 Systolic blood pressure 156 mm[Hg] Dr. Donnell Dooley Work Phone: [facility] Work Phone: 10-22-2016 13:38-0400 BMI (Body Mass Index) 18.17 kg/m2 [facility] Work Phone: 10-22-2016 13:38-0400 BP Diastolic 62 mm[Hg] Thao Archer RN [facility] Work Phone: 10-22-2016 13:38-0400 [...] management of inpatient Dr. Naeem Barnett DO -[facility] Work Phone: Start: 07-12-2024 End: 07-12-2024 ambulatory DONNELL DOOLEY Facility:[facility] Start: 07-12-2024 Patient encounter procedure DONNELL DOOLEY [facility] Start: 06-28-2024 End: 06-28-2024 ambulatory Hannah Mills MA [facility] Start: 06-28-2024 End: 06-28-2024 Patient encounter procedure Hannah Mills MA [facility] Comment on above: Population Health Na vigation Outreach ([facility] [employer] ) Start: 05-11-2024 End: 05-11-2024 ambulatory Hannah Mills MA [facility] Start: 05-11-2024 End: 05-11-2024 Patient encounter procedure Hannah Mills MA [facility] Comment on above: Population Health Na vigation Outreach ([employer] [facility]) Start: 04-24-2024 End: 04-24-2024 Telephone encounter Reena Ricardo Arango DO Work Phone: [facility] [place] Start: 04-11-2024 End: 04-13-2024 Follow-up encounter [facility] Work Phone: Vascul[facility] Surgery Start: 03-22-2024 End: 03-22-2024 Telephone encounter Donnell Dooley MD Work Phone: [facility] [place] Comment on above: Release Of Medical R ecords Start: 03-21-2024 End: 03-21-2024 ambulatory DONNELL Erica [facility] Facility:[facility] Start: 03-14-2024 ambulatory [facility] Facility:[facility] Start: 03-09-2024 End: 03-09-2024 Telephone encounter Donnell Dooley MD Work Phone: [facility] Comment on above: Patient Update Results Start: 02-28-2024 End: 02-28-2024 ambulatory [facility] [facility] Start: 02-28-2024 End: 02-28-2024 Patient encounter procedure Danika Helms Work Phone: Podiatry Comment on above: Onychomycosis (Prima ry Dx); Diminished pulses in lower extremity Start: 02-18-2024 [facility] Facility:[facility] Start: 02-18-2024 End: 02-18-2024 Telephone encounter Donnell Dooley MD Work Phone: [facility] Comment on above: Patient Update Start: 02-08-2024 [facility] Start: 02-07-2024 End: 02-11-2024 Telephone encounter Donnell Dooley MD Work Phone: [facility] Comment on above: Patient Update Start: 01-14-2024 End: 01-14-2024 Patient encounter procedure Donnell Dooley MD Work Phone: [facility] Comment on above: Mixed hyperlipidemia (Primary Dx); VHD (valvular heart disease); Meningioma (HCC); Meniere's disease of both ears; Pulmonary emphysema, unspecified emphysema type (HCC); Personal history of CLL (chronic lymphocytic leukemia); History of breast cancer; Mild cognitive impairment; Age-related osteoporosis without current pathological fracture Start: 01-14-2024 End: 01-14-2024 ambulatory [facility] Facility:[facility] Start: 01-12-2024 End: 01-12-2024 ambulatory Sheba Damian Facility:[facility] Start: 01-10-2024 End: 01-10-2024 ambulatory [facility] Facility:[facility] Start: 01-06-2024 End: 01-06-2024 Telephone encounter Donnell Dooley MD Work Phone: [facility] Comment on above: Orders Start: 10-17-2023 End: 10-17-2023 ambulatory Roger Boateng RN NURSE LOCOMOTIVE OPERATOR Comment on above: Information Start: 10-17-2023 End: 10-17-2023 Patient encounter procedure Isabel Vegas RN NURSE LOCOMOTIVE OPERATOR Comment on above: Clinical Update Start: 10-16-2023 End: 11-24-2023 Telephone encounter Desi Gomez MD Work Phone: [facility] Comment on above: Orders Start: 10-14-2023 ambulatory Donnell Dooley [facility] ty:[facility] Start: 10-13-2023 End: 10-13-2023 Telephone encounter Donnell Dooley MD Work Phone: [facility] Comment on above: Patient Update Start: 08-16-2023 Telephone encounter Morelia storm RELIABILITY TECHNOLOGIST.PART TIME FLEXIBLE CLERK Work Phone: [facility] Comment on above: Results Start: 08-14-2023 End: 08-14-2023 ambulatory DONNELL DOOLEY Facility:[facility] Start: 08-14-2023 End: 08-14-2023 Patient encounter procedure Sav Mejía RELIABILITY TECHNOLOGIST.PART TIME FLEXIBLE CLERK Work Phone: [facility] Comment on above: Eye pain, bilateral (Primary Dx) Start: 08-11-2023 End: 08-11-2023 ambulatory [facility] Facility:[facility] Start: 08-11-2023 End: 08-11-2023 Subsequent hospital visit by physician [facility] Cat Scan Comment on above: Pelvic pain [R10.2] Start: 08-04-2023 End: 08-04-2023 ambulatory [facility] Facility:[facility] Start: 08-04-2023 End: 08-04-2023 Office outpatient visit 25 minutes Morelia Hewitt APRN.PART TIME FLEXIBLE CLERK Work Phone: [facility] Comment on above: Pelvic pain (Primary Dx); UTI symptoms Start: 08-03-2023 ambulatory Donnell Dooley MD Work Phone: [facility] Start: 08-03-2023 E-mail encounter fro m caregiver [facility] Start: 08-03-2023 Letter encounter [facility] Comment on above: letter Start: 08-03-2023 Manual pelvic examination Donnell Dooley MD Work Phone: [facility] Comment on above: Pelvic Pain Start: 08-02-2023 ambulatory Donnell Dooley MD Work Phone: [facility] Start: 08-02-2023 Letter encounter Donnell jaimes MD Work Phone: [facility] Comment on above: letter request Start: 07-15-2023 Telephone encounter Amber Griffith APRN.BANDAGE WINDING MACHINE OPERATOR Work Phone: [facility] Start: 07-13-2023 End: 07-13-2023 ambulatory Donnell ELLSWORTH Facility:[facility] Start: 06-28-2023 End: 06-28-2023 Patient encounter procedure Donnell Dooley MD Work Phone: [facility] Comment on above: Mixed hyperlipidemia (Primary [...] (HCC) Start: 05-18-2023 Telephone encounter Amber Griffith APRN.BANDAGE WINDING MACHINE OPERATOR Work Phone: [facility] Start: 05-18-2023 End: 05-18-2023 Office outpatient visit 15 minutes Amber Griffith APRN.BANDAGE WINDING MACHINE OPERATOR Work Phone: [facility] Comment on above: Venous stasis ulcer of other part of lower leg limited to breakdown of skin, unspecified laterality, unspecified whether varicose veins present (HCC) (Primary Dx) Start: 05-14-2023 Telephone encounter Donnell Dooley MD Work Phone: [facility] [place] Comment on above: Wound dressing quest ion Start: 05-04-2023 End: 05-04-2023 Office outpatient visit 15 minutes Amber Griffith APRN.BANDAGE WINDING MACHINE OPERATOR Work Phone: [facility] [place] Comment on above: Venous stasis ulcer of left lower leg with edema of left lower leg (HCC) (HCC) (Primary Dx) Start: 04-05-2023 End: 04-05-2023 Patient encounter procedure Dallas Calabrese APRN.PART TIME FLEXIBLE CLERK Work Phone: [facility] [place] Comment on above: Cellulitis of skin ( Primary Dx); Left ankle swelling; Discoloration of skin of lower leg; Acute left ankle pain; Blister of left lower extremity, initial encounter Start: 04-02-2023 [facility] Start: 04-02-2023 End: 04-02-2023 Subsequent hospital visit by physician [facility] Comment on above: Cellulitis of skin [ L03.90] Start: 04-02-2023 Telephone encounter Donnell Dooley MD Work Phone[facility] Comment on above: Request for order Start: 04-02-2023 End: 04-02-2023 Patient encounter procedure Dallas Calabrese APRN.PART TIME FLEXIBLE CLERK Work Phone: [facility] [place] Comment on above: Cellulitis of skin [...] procedure Margarito Shields MD Work Phone: [place] [facility] Start: 12-23-2022 Telephone encounter Donnell Dooley MD Work Phone: [facility] [place] Start: 12-23-2022 End: 12-23-2022 Patient encounter procedure Donnell Dooley MD Work Phone: [facility] Comment on above: Mild cognitive impai rment (Primary Dx); MVP (mitral valve prolapse); Mixed hyperlipidemia; Meningioma (HCC); History of breast cancer; Small B-cell lymphoma, unspecified body region (HCC); Age-related osteoporosis without current pathological fracture; Pulmonary emphysema, unspecified emphysema type (HCC); VHD (valvular heart disease) Start: 12-11-2022 Telephone encounter Donnell Dooley MD Work Phone: [facility] Comment on above: Forms Start: 12-08-2022 Telephone encounter Donnell Dooley MD Work Phone: [facility] Comment on above: Orders Start: 12-04-2022 Telephone encounter Donnell Dooley MD Work Phone: [facility] Comment on above: Pain on left side Start: 12-04-2022 End: 12-04-2022 Emergency department patient [facility] Dr[facility] Work [facility]: Start: 11-18-2022 End: 11-18-2022 Emergency department patient visit Dr. Donnell Dooley [facility] Work Phone: Start: 11-16-2022 Telephone encounter Donnell Dooley MD Work Phone: [facility] Comment on above: Patient Update; Orde [...] Start: 10-12-2022 End: 10-12-2022 ambulatory DONNELL DOOLEY [facility] Start: 10-08-2022 Telephone encounter Danika Linda Work Phone: Podiatry Comment on above: Corporate Security Officer - O ther Start: 10-07-2022 Telephone encounter [...] encounter procedure Donnell Dooley MD Work Phone: [facility] [place] Comment on above: Mild [...] Telephone encounter Donnell Dooley MD Work Phone: [facility] [place] Comment on above: Moving to [facility] Start: 09-30-2022 Telephone encounter Donnell Dooley MD Work Phone: [facility] [place] Comment on above: Letter Start: 09-17-2022 Telephone encounter Donnell Dooley MD Work Phone: [facility] Comment on above: Release Of Medical R ecords Start: 08-11-2022 End: 08-11-[address] Donnell Dooley Work Phone: [facility] [place] Work Phone: Start: 07-23-2022 [...] Telephone encounter Donnell Dooley MD Work Phone: [facility] Comment on above: Patient Update Results Start: 06-15-2022 End: 06-15-2022 Patient encounter procedure Donnell Dooley MD Work Phone: [facility] Comment on above: Meningioma (HCC) (Pr imary Dx); Small B-cell lymphoma, unspecified body region (HCC); Pulmonary emphysema, unspecified emphysema type (HCC); Chronic respiratory failure with hypoxia (HCC); Atrial fibrillation, unspecified type (HCC); Mild cognitive impairment; MVP (mitral valve prolapse); Age-related osteoporosis without current pathological fracture; Mixed hyperlipidemia Start: 05-19-2022 Telephone encounter Donnell Dooley MD Work Phone: [facility] Comment on above: Forms Start: 05-14-2022 [...] 04-15-2022 ambulatory Donnell Dooley MD Work Phone: [facility] Comment on above: Neurologic Problem Start: 04-15-2022 End: 04-15-2022 Emergency department patient visit Dr. Donnell Dooley Work Phone: [facility] Start: 03-25-2022 End: 03-25-2022 Patient encounter procedure Danika Helms Work Phone: Podiatry Comment on above: Hallux valgus of rig ht foot (Primary Dx); Callus of foot; Ulcer of toe of right foot, limited to breakdown of skin (HCC) Start: 03-16-2022 ambulatory Donnell Dooley MD Work Phone: [facility] Comment on above: Cough Start: 03-16-2022 End: 03-16-2022 Subsequent hospital visit by physician Xr [facility] Work Phone: Radiology Comment on above: Acute cough [R05.1] Start: 03-16-2022 End: 03-16-2022 Patient encounter procedure Patsy Valencia APRN.CNP Work Phone: [facility] Comment on above: Acute cough (Primary Dx); Rhinosinusitis Start: 01-27-2022 End: 01-27-2022 Patient encounter procedure Danika Helms Work Phone: Podiatry Comment on above: Hallux valgus of rig ht foot (Primary Dx); Ulcer of toe of right foot, limited to breakdown of skin (HCC) Start: 01-07-2022 End: 01-07-[address] Donnell Dooley Work Phone: [facility] Start: 12-22-2021 End: 12-22-2021 Patient encounter procedure Danika Helms Work Phone: Podiatry Comment on above: Callus of foot (Prim claudine Dx); Hallux valgus of right foot; Onychomycosis; Pain in toe of left foot Start: 12-09-2021 End: 12-09-2021 Patient encounter procedure Donnell Dooley MD Work Phone: [facility] [place] Comment on above: Mild cognitive impai rment (Primary Dx); Encounter for immunization; Meningioma (HCC); Mitral valve insufficiency, unspecified etiology; Pulmonary emphysema, unspecified emphysema type (HCC); Small B-cell lymphoma, unspecified body region (HCC) Start: 11-20-2021 ambulatory No Pcp [facility] Start: 11-06-2021 End: 11-06-2021 Patient encounter procedure Danika Scooter Work Phone: Podiatry Comment on above: Callus of foot (Prim claudine Dx); Hallux valgus of right foot Start: 10-29-2021 Telephone encounter Donnell Dooley MD Work Phone: [facility] [place] Comment on above: Orders Start: 10-23-2021 ambulatory No Pcp (Historical) [facility] [place] Start: 10-09-2021 End: 10-09-2021 Patient encounter procedure Danika Scooter Work Phone: Podiatry Comment on above: Hallux valgus of rig ht foot (Primary Dx); Callus of foot; Onychomycosis Start: 09-22-2021 Telephone encounter Donnell Dooley MD Work Phone: [facility] [place] Comment on above: Patient Update; Medi cation Request Start: 09-16-2021 Telephone encounter Donnell Dooley MD Work Phone: [facility] [place] Comment on above: Results Start: 09-12-2021 End: 09-12-2021 Emergency department patient visit Dr. Donnell Dooley Work Phone: [facility] Start: 09-11-2021 Telephone encounter Donnell Dooley MD Work Phone: [facility] [place] Comment on above: Low Back Pain (& francisco ateral legs) Start: 09-08-2021 Telephone encounter Donnell Dooley MD Work Phone: [facility] [place] Comment on above: Patient Update; Medi cation Problem Start: 09-05-2021 Telephone encounter Donnell Dooley MD Work Phone: [facility] Comment on above: Insurance Authorizat ion (Rivastigmine patch ) Start: 09-04-2021 End: 09-04-2021 Subsequent hospital visit by physician Xr [facility] Work Phone: Radiology Comment on above: Sciatica, right side [M54.31] Start: 09-04-2021 End: 09-04-2021 Patient encounter procedure Donnell Dooley MD Work Phone: [facility] Comment on above: Mild cognitive disor [...] / Non-visit Dr. Jessica Dooley Work Phone: [facility] Start: 08-04-2021 End: 08-04-2021 ambulatory Jane Mcmillan MD Work Phone: Hematology/Oncology Comment on above: History of breast ca ncer (Primary Dx); Small B-cell lymphoma, unspecified body region (HCC); Meningioma (HCC) Start: 08-04-2021 End: 08-04-2021 Patient encounter procedure Jane Mcmillan MD Work Phone: [facility] Start: 07-03-2021 End: 07-03-[address] Donnell Dooley [facility] Start: 06-04-2021 End: 06-04-2021 Patient encounter procedure Donnell Dooley MD Work Phone: [facility] Comment on above: Hypokalemia (Primary Dx); Mild cognitive impairment; Meningioma (HCC); Pulmonary emphysema, unspecified emphysema type (HCC); Personal history of CLL (chronic lymphocytic leukemia) Start: 05-29-2021 End: 05-29-[address] Donnell Dooley Work Phone: [facility] Start: 05-26-2021 End: 05-26-2021 Subsequent hospital visit by physician Mri [facility] (I-Stat/1.5t) Work Phone: Radiology Comment on above: Brain mass [G93.89] Start: 05-26-2021 ambulatory Donnell Dooley MD Work Phone: [facility] [place] Comment on above: Madison Lofton, thru sh Start: 05-06-2021 End: 05-06-2021 Subsequent hospital visit by physician Xr [facility] Work Phone: Radiology Comment on above: Mild [...] et rgnt auto w/o microscopy Morelia Hewitt RELIABILITY TECHNOLOGIST.PART TIME FLEXIBLE CLERK Work Phone: Start: 06-28-2023 Adult depression scr eening assessment Donnell Dooley MD Work Phone: Start: 04-02-2023 Dup-scan xtr veins unilateral/limited study Dallas Calabrese RELIABILITY TECHNOLOGIST.PART TIME FLEXIBLE CLERK Work Phone: Start: 11-18-2022 CT angiography [...] Start: 01-09-2027 Diabetes Screening Diabetes Screenin g [facility] Start: 01-27-2026 Diabetes Screening Diabetes Screenin g [facility] Start: 10-09-2025 DIABETES SCREEN DIABETES SCREEN [facility] Start: 10-09-2025 Diabetes Screening Diabetes Screenin g [facility] Start: 07-09-2025 DIABETES SCREEN DIABETES SCREEN [facility] Start: 06-15-2025 DIABETES SCREEN DIABETES SCREEN [facility] Start: 08-22-2024 Verification routine [facility] Start: 08-22-2024 Admission procedure [facility] Start: 08-22-2024 Hospital admission, emergency, from emergency room, medical nature [facility] Start: 08-22-2024 [facility] Start: 08-22-2024 Respiratory Panel (PCR) Respiratory Panel (PCR) [facility] Start: 08-04-2024 DIABETES SCREEN DIABETES SCREEN [facility] Start: 07-12-2024 End: 07-12-2024 Patient encounter procedure 07/12/2024 1:00 PM EDT Office Visit Family [facility] [address] [place] [address] Donnell Dooley MD [address] [place], [place] [id number] Medicare Wellness [facility] Comment on above: Medicare Wellness Start: 06-27-2024 Anxiety Screening Anxiety Screening [facility] Start: 06-27-2024 Covid-19 Vaccine () Covid-19 Vaccine () [facility] Comment on above: Postponed from 03/02 (Declined at this time) Start: 06-27-2024 Depression Screening Depression Scre ening [facility] Start: 06-05-2024 Covid-19 Vaccine (8 - Moderna risk season) Covid-19 Vaccine (8 - Moderna risk ) [facility] Start: 05-06-2024 DIABETES SCREEN DIABETES SCREEN [facility] Start: 04-05-2024 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 Annual PCP Team Chronic Disease Visit [facility] Start: 04-02-2024 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 Annual PCP Team Chronic Disease Visit [facility] Start: 03-21-2024 End: 03-21-2024 Patient encounter procedure 03/21/2024 11:00 AM EST Office Visit [facility] [address] [place] [address] Onychomycosis [B35.1] [facility] Comment on above: Onychomycosis [B35.1 ] Start: 02-28-2024 End: 02-28-2024 Patient encounter procedure 02/28/2024 10:45 AM EST Office Visit Podiatry [address] [place] [address] Danika Helms [address] [address] foot and nail pain Podiatry Comment on above: foot and nail pain Start: 02-23-2024 Advance Directive Discussion Advance Directive Discussion [facility] Start: 01-31-2024 Covid-19 Vaccine ( season) Covid-19 Vaccine () [facility] Start: 01-26-2024 End: 01-26-2024 ambulatory [facility] Comment on above: CBC/LDH* 1 YR OV/LABS EARLY* Start: 01-25-2024 End: 01-25-2024 ambulatory [facility] Comment on above: CBC/LDH* 1 YR OV/LABS EARLY* Start: 01-14-2024 End: 01-14-2024 Patient encounter procedure 01/14/2024 2:20 PM EST Office Visit Family [facility] [address] [place] [address] Donnell Dooley MD [address] [place] [address] 6 month follow up Family [facility] Comment on above: 6 month follow up Start: 01-10-2024 End: 01-10-2024 ambulatory 01/10/2024 7:15 AM EST Results Only [facility] [address] [place] [address] [place] [facility] Start: 01-07-2024 End: 01-07-2024 Patient encounter procedure 01/07/2024 10:40 AM EST Office Visit Family Shanique [facility] [address] [place] [address] Donnell Dooley MD [address] [place] [address] 6 month follow up Family [facility] Comment on above: 6 month follow up Start: 01-06-2024 End: 04-06-2024 CBC W Auto Differential panel - Blood COMPLETE BLOOD COUNT AND DIFFERENTIAL Lab Routine Mixed hyperlipidemia Small B-cell lymphoma, unspecified body region (HCC) Expected: 01/06/2024, Expires: 04/06/2024 [facility] Work Phone: Comment on above: Expected: 01/06/2024 , Expires: 04/06/2024 Start: 01-06-2024 End: 04-06-2024 Comprehensive metabolic 2000 panel - Serum or Plasma COMPREHENSIVE METABOLIC PANEL Lab Routine Mixed hyperlipidemia Small B-cell lymphoma, unspecified body region (HCC) Expected: 01/06/2024, Expires: 04/06/2024 [facility] Comment on above: Expected: 01/06/2024 , Expires: 04/06/2024 Start: 01-06-2024 End: 04-06-2024 Lipid 1996 panel - Serum or Plasma LIPID PANEL BASIC Lab Routine Mixed hyperlipidemia Small B-cell lymphoma, unspecified body region (HCC) Expected: 01/06/2024, Expires: 04/06/2024 [facility] Comment on above: Expected: 01/06/2024 , Expires: 04/06/2024 Start: 12-24-2023 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 Annual PCP Team Chronic Disease Visit [facility] Start: 12-24-2023 Covid-19 Vaccine () Covid-19 Vaccine () [facility] Comment on above: Postponed from 10/23 (Declined at this time) Start: 12-24-2023 RSV Vaccine (1 - 1-d ose 60+ series) RSV Vaccine (1 - 1-dose 60+ series) [facility] Comment on above: Postponed from 06/07 (Declined at this time) Start: 10-24-2023 Covid-19 Vaccine ( season) Covid-19 Vaccine () [facility] Start: 10-24-2023 Influenza vaccination Influenza Vacc ine (#1) [facility] Start: 10-06-2023 ANNUAL PCP TEAM LAB SUPPORT TECH GLENDA DISEASE VISIT ANNUAL PCP TEAM CHRONIC DISEASE VISIT [facility] Start: 10-06-2023 COVID-19 VACCINE (6 - Moderna risk series) COVID-19 VACCINE (6 - Moderna risk series) [facility] Comment on above: Postponed from 02/03 (Declined at this time) Start: 08-11-2023 End: 08-11-2023 Patient encounter procedure Cat Scan Comment on above: Pelvic pain [R10.2] Start: 08-04-2023 End: 08-04-2023 Patient encounter procedure 08/04/2023 9:00 AM EDT Office Visit [facility] [place] [address] [place], [place] [phone] Morelia Hewitt APRN.PART TIME FLEXIBLE CLERK [address] [place], [place] [phone] Pelvic Pain; See nurse Triage note [facility] [place] Comment on above: Pelvic Pain; See evan se Triage note Start: 06-16-2023 ANNUAL PCP TEAM LAB SUPPORT TECH GLENDA DISEASE VISIT ANNUAL PCP TEAM CHRONIC DISEASE VISIT [facility] Start: 03-02-2023 Covid-19 Vaccine () Covid-19 Vaccine () [facility] Start: 02-22-2023 Advance Directive Discussion Advance Directive Discussion [facility] Start: 02-22-2023 Depression Assessment Depression Ass essment [facility] Start: 01-27-2023 End: 04-28-2023 CBC W Auto Differential panel - Blood CBC + DIFF Lab Routine Small B-cell lymphoma, unspecified body region (HCC) Expected: 01/27/2023, Expires: 04/28/2023 [facility] Work Phone: Comment on above: Expected: 01/27/2023 , Expires: 04/28/2023 Start: 01-27-2023 End: 04-28-2023 Lactate dehydrogenase [Enzymatic activity/volume] in Serum or Plasma LD LACTATE DEHYDRO Lab Routine Small B-cell lymphoma, unspecified body region (HCC) Expected: 01/27/2023, Expires: 04/28/2023 [facility] Work Phone: Comment on above: Expected: 01/27/2023 , Expires: 04/28/2023 Start: 12-09-2022 ANNUAL PCP TEAM LAB SUPPORT TECH GLENDA DISEASE VISIT ANNUAL PCP TEAM CHRONIC DISEASE VISIT [facility] Start: 11-18-2022 [facility] Start: 10-23-2022 Covid-19 Vaccine ( season) Covid-19 Vaccine () [facility] Start: 10-23-2022 Influenza vaccination C [facility] Start: 09-04-2022 [facility] Start: 09-04-2022 ANNUAL PCP TEAM LAB SUPPORT TECH GLENDA DISEASE VISIT ANNUAL PCP TEAM CHRONIC DISEASE VISIT [facility] Start: 06-17-2022 End: 08-17-2022 Basic metabolic 2000 panel - Serum or Plasma BASIC METABOLIC PNL Lab Routine Hypercalcemia Expected: 06/17/2022, Expires: 08/17/2022 [facility] Work Phone: Comment on above: Expected: 06/17/2022 , Expires: 08/17/2022 Start: 06-17-2022 End: 08-17-2022 Calcium.ionized [Moles/volume] in Blood CALCIUM IONIZED BLOOD Lab Routine Hypercalcemia Expected: 06/17/2022, Expires: 08/17/2022 [facility] Work Phone: Comment on above: Expected: 06/17/2022 , Expires: 08/17/2022 Start: 06-15-2022 End: 08-15-2022 25-hydroxyvitamin D3 [Mass/volume] in Serum or Plasma [facility] Work Phone: Comment on above: Expected: 06/15/2022 , Expires: 08/15/2022 Start: 06-15-2022 End: 08-15-2022 Comprehensive metabolic 2000 panel - Serum or Plasma [facility] Work Phone: Comment on above: Expected: 06/15/2022 , Expires: 08/15/2022 Start: 06-15-2022 End: 08-15-2022 LIPID PANEL, NONFASTING [facility] Work Phone: Comment on above: Expected: 06/15/2022 , Expires: 08/15/2022 Start: 06-04-2022 ANNUAL PCP TEAM LAB SUPPORT TECH GLENDA DISEASE VISIT ANNUAL PCP TEAM CHRONIC DISEASE VISIT [facility] Start: 05-06-2022 ANNUAL PCP TEAM LAB SUPPORT TECH GLENDA DISEASE VISIT ANNUAL PCP TEAM CHRONIC DISEASE VISIT [facility] Start: 02-22-2022 ADVANCE DIRECTIVE DISCUSSION ADVANCE DIRECTIVE DISCUSSION [facility] Start: 02-22-2022 DEPRESSION ASSESSMENT DEPRESSION ASS ESSMENT [facility] Start: 10-23-2021 Influenza vaccination INFLUENZA (#1) [facility] Start: 10-01-2021 HEPATITIS C SCREENING HEPATITIS C [facility] Comment on above: Postponed from 06/07 (Declined at this time) Start: 07-03-2021 Patient referral [facility] Work Phone: Start: 06-10-2021 Adult depression scr eening assessment DEPRESSION SCREENING [facility] Start: 06-04-2021 End: 08-04-2021 POTASSIUM BLD POTASSIUM BLD Lab Routine Hypokalemia Expected: 06/04/2021, Expires: 08/04/2021 [facility] Work Phone: Comment on above: Expected: 06/04/2021 , Expires: 08/04/2021 Start: 06-04-2021 End: 08-04-2021 Thyrotropin [Units/volume] in Serum or Plasma TSH BLD Lab Routine Hypokalemia Mild cognitive impairment Expected: 06/04/2021, Expires: 08/04/2021 [facility] Work Phone: Comment on above: Expected: 06/04/2021 , Expires: 08/04/2021 Start: 02-22-2021 ADVANCE DIRECTIVE DISCUSSION ADVANCE DIRECTIVE DISCUSSION [facility] Start: 02-22-2021 DEPRESSION ASSESSMENT DEPRESSION ASS ESSMENT [facility] Start: 10-01-2020 COVID-19 VACCINE (3 - Booster for Moderna series) COVID-19 VACCINE (3 - Booster for Moderna series) [facility] Start: 05-29-2020 COVID-19 VACCINE (3 - Moderna risk series) COVID-19 VACCINE (3 - Moderna risk series) [facility] Start: 11-01-2017 End: 11-01-2017 Appointment Appointment [facility] Work Phone: Start: 10-22-2016 End: 10-22-2016 Appointment Appointment [facility] Work Phone: Start: 10-22-2016 End: 10-23-2016 Echocardiography Echocardiogram (complete) [facility] Work Phone: Start: 10-22-2016 End: 10-22-2016 Follow Up Appt 1 year Follow Up Appt 1 year [facility] Work Phone: Start: 10-22-2016 End: 10-22-2016 PFM PFM [facility] Work Phone: Start: 2002 RSV Vaccine (1 - 1-d ose 60+ series) RSV Vaccine (1 - 1-dose 60+ series) [facility] Start: 1961 Urine microalbumin profile DTAP,TDAP ,TD (1 - Tdap) [facility] Bacteria identified in Urine by Culture URINE CULTURE Microbiology Routine Pelvic pain 08/04/2023 9:44 AM EDT [facility] End: 09-02-2024 CT Abdomen and Pelvis WO contrast CT ABD/PEL WO IVCON Radiology Routine Pelvic pain 1 Occurrences starting 08/04/2023 until 09/02/2024 [facility] Work Phone: Comment on above: 1 Occurrences starti ng 08/04/2023 until 09/02/2024 CT Abdomen and Pelvi s WO contrast CT ABD/PEL WO IVCON Radiology Routine Pelvic pain 08/11/2023 3:50 PM EDT [facility] Work Phone: Magnesium measurement [facility] Patient Education [facility] Work Phone: Patient referral [facility] Work Phone: Radex spine lumbosac ral 2/3 views XR LUMBAR GENERAL 3V AP/LAT/L5-S1 Radiology Routine Sciatica, right side 09/04/2021 4:53 PM EDT [facility] Work Phone: End: 12-16-2023 Radiologic exam chest 2 views XR CHEST 2V FRONTAL/LAT Radiology Routine Chest pain, unspecified type 1 Occurrences starting 11/16/2022 until 12/16/2023 [facility] Work Phone: Comment on above: 1 Occurrences starti ng 11/16/2022 until 12/16/2023 Respiratory pathogen s DNA and RNA panel - Respiratory specimen by AIME with probe detection [facility] End: 09-15-2024 US Kidney - bilateral and Urinary bladder US KIDNEY/BLADDER Radiology Routine Urinary frequency 1 Occurrences starting 08/17/2023 until 09/15/2024 [facility] Work Phone: Comment on above: 1 Occurrences starti ng 08/17/2023 until 09/15/2024 End: 04-02-2024 US Lower extremity vein US LEG VEIN DVT UNL VAS LAB Vascular Lab STAT Cellulitis of skin Left ankle swelling Discoloration of skin of lower leg Acute left ankle pain Blister of left lower extremity, initial encounter Localized edema 1 Occurrences starting 04/02/2023 until 04/02/2024 [facility] Work Phone: Comment on above: 1 Occurrences starti ng 04/02/2023 until 04/02/2024 End: 02-27-2025 US.doppler Extremity arteries - bilateral for physiologic artery study PVR ANK PRESS FRANCISCO VAS LAB Vascular Lab Routine Onychomycosis Diminished pulses in lower extremity 1 Occurrences starting 02/28/2024 until 02/27/2025 [facility] Work Phone: Comment on above: 1 Occurrences starti ng 02/28/2024 until 02/27/2025 End: 11-05-2023 XR FOOT GENERAL 3V AP/LAT/OBL RIGHT XR FOOT GENERAL 3V AP/LAT/OBL RIGHT Radiology Routine Callus of foot 1 Occurrences starting 10/06/2022 until 11/05/2023 [facility] Work Phone: Comment on above: 1 Occurrences starti ng 10/06/2022 until 11/05/2023 XR FOOT GENERAL 3V AP/LAT/OBL RIGHT XR FOOT GENERAL 3V AP/LAT/OBL RIGHT Radiology Routine Callus of foot 10/06/2022 2:35 PM EDT [facility] Work Phone: [facility] Immunizations Immunization Date Immunization Notes Care Provider Yury baldwin 12-06-2023 COVID-19 vaccine, unspecified formulation Donnell Dooley MD Work Phone: [facility] 12-06-2023 influenza virus vacc ine, unspecified formulation Donnell Dooley MD Work Phone: [facility] 02-09-2023 respiratory syncytia l virus (RSV) vaccine, unspecified formulation Donnell Dooley MD Work Phone: [facility] 01-05-2023 COVID-19 vaccine, ag e 12+ yr, season (J.G. ink) Margarito Shields MD Work Phone: [facility] 12-10-2022 influenza, high dose seasonal, preservative-free Donnell Dooley MD Work Phone: [facility] 10-19-2023 influenza virus vacc ine, unspecified formulation Donnell Dooley MD Work Phone: [facility] 12-09-2021 COVID-19 booster vaccine, age 12+ yr, bivalent ([employer]) Donnell Dooley MD Work Phone: [facility] 12-09-2021 influenza, high-dose , quadrivalent vaccine (FLUZONE HIGH DOSE QUADRIVALENT) Donnell Dooley MD Work Phone: [facility] 12-09-2021 influenza virus vacc ine, unspecified formulation Donnell Dooley MD Work Phone: [facility] 07-22-2021 COVID-19 original vaccine, full dose, monovalent (MODERNA) Donnell Dooley MD Work Phone: [facility] 01-06-2021 COVID-19 original vaccine, full dose, monovalent (MODERNA) Donnell Dooley MD Work Phone: [facility] 12-19-2020 influenza, high dose seasonal, preservative-free Donnell Dooley MD Work Phone: [facility] 11-13-2020 zoster vaccine recombinant Donnell Dooley MD Work Phone: [facility] 08-05-2020 zoster vaccine recombinant Donnell Dooley MD Work Phone: [facility] 08-05-2020 zoster vaccine, live Donnell Dooley MD Work Phone: [facility] 05-01-2020 COVID-19 vaccine, fu ll dose (MODERNA) Donnell Dooley MD Work Phone: [facility] 04-04-2020 COVID-19 vaccine, fu ll dose (MODERNA) Donnell Dooley MD Work Phone: [facility] 11-25-2019 influenza, high-dose , quadrivalent vaccine (FLUZONE HIGH DOSE QUADRIVALENT) Donnell Dooley MD Work Phone: [facility] Work Phone: 11-29-2017 influenza, injectabl e, quadrivalent, preservative free Dr. Donnell Dooley Work Phone: [facility] 11-29-2017 influenza, seasonal, injectable Dr. Donnell Dooley Work Phone: [facility] 11-29-2017 influenza, seasonal, injectable, preservative free Donnell Dooley MD Work Phone: [facility] 11-20-2017 influenza, high dose seasonal, preservative-free Donnell Dooley MD Work Phone: [facility] 11-23-2016 influenza, high dose seasonal, preservative-free Donnell Dooley MD Work Phone: [facility] 12-07-2015 influenza, high dose seasonal, preservative-free Donnell Dooley MD Work Phone: [facility] Work Phone: 11-23-[address] Donnell Dooley Work Phone: [facility] 11-23-2015 influenza, seasonal, injectable, preservative free Donnell Dooley MD Work Phone: [facility] 03-03-2014 pneumococcal conjuga te vaccine, 13 valent Donnell Dooley MD Work Phone: [facility] Work Phone: 12-24-2007 pneumococcal polysaccharide vaccine, 23 valent Donnell Dooley MD Work Phone: [facility] Work Phone: Payers Date Payer Category Payer Self-pay [id number] 2008 Private Health Insurance [facility] [id number] 2008 Unknown [employer]IC[employer] SUPPLEMENT [id number] 2008-Present [phone] [id number] [employer] [place] [id number] Indemnity [id number] 2008 Unknown [id number] 2008 Unknown [employer] MEDIC[employer] SUPPLEMENT [id number] 2008-Present [phone] [id number] [employer] [place] [id number] Indemnity [id number] 2008 Medicare [id number] 2007 Medicare MEDICARE MEDICAR E A AND B [id number] 2007-Present [phone] [facility] [address] [place] [address] Medicare [id number] 2007 Medicare [id number] 2007 Medicare [id number] Unknown [id number] Unknown [id number] Unknown [id number] Unknown [id number] Unknown [id number] Unknown [id number] Social History Date Type Detail Facility Start: 03-03-2016 End: 08-22-2024 Tobacco smoking status NHIS Ex-smoker [facility] Start: 02-22-1969 End: 02-22-1999 History of tobacco use Current smoker [facility] Start: 02-22-1969 End: 02-22-1999 History of tobacco use Cigarette Smoker [facility] Start: 03-03-2016 End: 10-29-2022 Cigarettes smoked current (pack per day) - Reported 1 [facility] Work Phone: Start: 03-03-2016 End: 01-14-2024 Tobacco use and exposure Smokeless tobacco non-user [facility] Start: 05-06-2021 End: 02-28-2024 Alcohol intake Current drinker of alcohol (finding) [facility] Start: 06-10-2020 History SDOH Alcohol Frequency 4 [facility] Start: 06-10-2020 History SDOH Alcohol Std Drinks 1 [facility] Start: 03-03-2016 History SDOH Alcohol Comment With dinner. [facility] Start: 06-10-2020 History SDOH Social Connections Phone 3 [facility] Start: 06-10-2020 History SDOH Social Connections Zoroastrianism 98 [facility] Start: 06-10-2020 History SDOH Social Connections Meetings 2 [facility] Start: 06-10-2020 History SDOH Physical Activity DPW 7 [facility] Start: 06-10-2020 Education 21 [facility] Start: 09-10-2016 End: 12-09-2021 Tobacco Comment Father smoked in childhood home. [facility] Start: 1940 Sex Assigned At Not on file [facility] Start: 04-26-2021 End: 12-22-2021 Exposure to SARS-CoV-2 (event) Not sure [facility] Start: 09-12-2021 End: 12-04-2022 Tobacco smoking status KSIS Unknown if ever smoked [facility] Start: 04-19-2019 Occasional [facility] Start: 04-19-2019 None [facility] Start: 04-19-2019 Spouse/ Significant Other [facility] Start: 04-20-2019 Non-smoker [facility] Start: 1940 Sex Assigned At Female [facility] Start: 09-13-2021 End: 09-23-2021 Exposure to SARS-CoV-2 (event) Unable to assess [facility] Work Phone: Start: 07-23-2022 End: 10-29-2022 Tobacco use panel [facility] Work Phone: Adult Depression Screening Assessment 0 [facility] Work Phone: Do you belong to any clubs or organizations such as yazdanism groups, unions, fraternal or athletic groups, or school groups? Yes [facility] Are you now , , , , never or living with a partner? [facility] How often to you hav e a drink containing alcohol? 2-3 time sa week [facility] How many standard dr inks containing alcohol do you have on a typical day? 1 or 2 [facility] How often do you hav e 6 or more drinks on 1 occasion? Never [facility] How hard is it for y ou to pay for the very basics like food, housing, medical care, and heating Not very hard [facility] Do you feel stress - tense, restless, nervous, or anxious, or unable to sleep at night because your mind is troubled all the time - these days [OSQ] Rather much [facility] (I/We) worried wheth er (my/our) food would run out before (I/we) got money to buy more. Never true [facility] In the past 12 month s, was there a time when you were not able to pay the mortgage or rent on time? No [facility] How often to you hav e a drink containing alcohol? Monthly or less [facility] Do you feel stress - tense, restless, nervous, or anxious, or unable to sleep at night because your mind is troubled all the time - these days [OSQ] Not at all [facility] Are you now , , , , never or living with a partner? [facility] Mental Status Date Assessment Result Facility 12-04-2022 Cognitive function Level Of Cons ciousness Awake;Alert;Appropriate;Follow s Commands [facility] Work Phone: 11-18-2022 Cognitive function Awake;Alert;A ppropriate;Follow s Commands [facility] Work Phone: 04-15-2022 Cognitive function Level Of Cons ciousness Awake;Alert;Appropriate [facility] Work Phone: Clinical Notes 05-12-2017 to 08-22-2024 Note Date & Type Note Facility 08-22-2024 Evaluation note Diagnosis Onset Date Resolution Essential hypertension acute 2024 8:07pm Respiratory insufficiency acute August 22, 2024 8:07pm COPD exacerbation chronic August 8:07pm [facility] Work Phone: 1(459) 546-545307-01-2025 Radiology Diagnostic study note [facility] Imaging Services [address] [place] [address] Chest PA and Lateral MR#: [id number] Acct: [id number] Name: MADISON LOFTON MILY Rep #: [id number] : 1940 F 84 From: Stephani Espino MD PCP: Dr. Donnell Dooley MD Status: REG E R Study:Chest PA and Lateral Date of Exam: 08/22/24 Exam# [id number] Ordering Dr: Juno Garza DO PROCEDURE: CHEST [...] Hyperinflated lungs may reflect COPD. Reading Location: [id number] CC: Dr. Juno Cruz DO; Dr. Donnell Dooley MD ~ Office Service Coordinator: Signed [facility]05-21-2025 NoteHNO ID: [id number] Author: DONNELL DOOLEY MD Service: ? Author [...] Otolaryngology) Margarito Shields MD (Hematology/Oncology) Morelia Hewitt APRN.PART TIME FLEXIBLE CLERK as Nurse Practitioner Manager (Family Medicine) Amber Griffith APRN.REYNALDO as Nurse Practitioner Manager (Family Medicine) Dr Helms, podiatry. Now seeing podiatry at facility. Dr Antunez, pulmonary. Dr Diallo, optho. [facility]-not followed up. Defers follow up. [...] practice. J Neurol. 2023 Jef . doi: 10.1007/[id number]. Epub ahead of print. PMID: [id number]. Cognitive screening reviewed and Patient has known [...] ICD10: J96.11 - stabl (more content not included)...[facility]05-07-2025 Note HNO ID: [id number] Author: HANNAH MILLS MA Service: ? Author Type: Sample Examiner Type: Progress Notes Filed: 06/28/2024 12:19 Note [...] Hannah Mills MA June 28, 2024 12:10 [facility]05-07-2025 History of Present illness Narrative* Hannah Mills [...] 28, 2024 12:10 PM documented in [facility] encounterThe [facility] NotePatient Outreach (NETNAV) MADISON LOFTON ([id number]) 1940 F Date Time Provider Department 06/28/24 [...] Navigation Outreach [[id number]] Cmt: [facility] as of 06/28/2024 - fluticasone propion-salmeterol [...] 01/14/2024 Encounter Status:Closed by HANNAH MILLS on 06/28/24[facility]03-20-2025 NoteHNO ID: [id number] Author: HANNAH MILLS MA Service: ? Author Type: Sample Examiner Type: Progress Notes Filed: 05/11/2024 15:36 Note [...] Hannah Mills MA May 11, 2024 1[facility] History of Present illness Narrative* Hannah [...] 11, 2024 1:33 PM documented in this encounterThe [facility]03-[facility]-2025 NotePatient Outreach (NETNAV) MADISON LOFTON ([id number]) 1940 F Date Time Provider Department 05/11/24 [...] 01/14/2024 Encounter Status:Closed by HANNAH MILLS on 05/11/24[facility]03-03-2025 Telephone encounter Note* Telephone Encounter - [...] p.o. fluid intake. All the best Reena [facility] Work Phone: 1(869) 848-712703-03-2025 Miscellaneous Notes* Telephone Encounter - Reena Arango [...] All the best Reena documented in this encounterThe [facility] System01-29-2025 Telephone encounter Note * Telephone Encounter - Jessica Middleton LPN - 03/22/2024 9:55 AM EST Sandy with [facility] called to request ed list and dx list for pt. Pt was identified withname and date of . Done. Jessica Middleton LPN [facility]01-29-2025 Miscellaneous Notes* Telephone Encounter - Jessica Middleton LPN - 03/22/2024 9:55 AM EST Sandy with [facility] called to request ed list and dx list for pt. Pt was identified withname and date of . Done. Jessica Middleton LPN documented in this encounterThe [facility]01-16-2025 Telephone encounter Note * Telephone Encounter - Amber Grfifith APRN.CNP - 03/09/2024 5:06 PM EST Called patient and daughter answered. I let her know that mother does have a pneumonia. I will sendan order of Zpak to her pharmacy. Not in distress and daughter says she has an inhaler and wears O2at night. RX sent. No QT prolongation on last ECG. Renal function ok. [facility]01-16-2025 Miscellaneous Notes* Telephone Encounter - Amber Griffith [...] - 03/09/2024 4:51 PM EST Ronda from [facility] calling with results to chest x ray. Results show Slight left lower lobe infiltrate (Left Basilar infiltrate without any mass or fusion). Patient still has cough and other symptoms without fever. Pharmacy is [facility]. Please review and advise, Alejandrina Cooper RN documented in this encounterThe [facility]health System01-16-2025 Telephone encounter Note * Telephone Encounter - Alejandrina Cooper RN - 03/09/2024 4:51 PM EST Ronda from [facility] calling with results to chest x ray. Results show Slight left lower lobe infiltrate (Left Basilar infiltrate without any mass or fusion). Patient still has cough and other symptoms without fever. Pharmacy is [facility]. Please review and advise, Alejandrina Cooper RN [facility]01-16-2025 Telephone encounter Note* Telephone Encounter - Skye [...] made aware of this. Skye Payton MA [facility]01-16-2025 Miscellaneous Notes* Telephone Encounter - Skye Payton [...] 03/09/2024 9:13 AM EST Ronda nurse with [facility] calls with patient update. Patient has [...] do one there. Call back number is [phone]. Guera Roy RN documented in this encounterThe [facility] System01-16-2025 Telephone encounter Note * Telephone Encounter - Donnell Dooley MD - 03/09/2024 11:17 AM EST Ok for chest xray Can use robitussin dm 5 cc po q 8 hours prn cough [facility]01-16-2025 Telephone encounter Note* Telephone Encounter - Guera Roy RN - 03/09/2024 9:13 AM EST Ronda nurse with [facility] calls with patient update. Patient has [...] do one there. Call back number is [phone]. Guera Roy RN [facility]01-06-2025 NoteHNO ID: [id number] Author: DANIKA HELMS, ? Service: ? Author [...] shellfish into diet. Bacitracin Itching Latex Rash [place] Swelling PAST SURGICAL HISTORY Procedure Laterality Date [...] bronchitis.) Father other (Other) Brother Parkinson's vs [place]'s. age 61. other (Other) Other Meningioma: multiple [...] polyuria, polydipsia and g (more content not included)...[facility]01-06-2025 History of Present illness Narrative* Danika [...] shellfish into diet. Bacitracin Itching Latex Rash [place] Swelling PAST SURGICAL HISTORY Procedure Laterality Date [...] bronchitis.) Father other (Other) Brother Parkinson's vs [place]'s. age 61. other (Other) Other Meningioma: multiple [...] Helms DPM Podiatry [address] [facility] [address] Dept: [phone] Dept * Sherron Warren RN - 02/28/2024 10:07 AM EST [facility] ROOMING INTAKE FLOWSHEET DATA Pain Pain Level: 8 Pain Location: Toe Description: Throbbing Duration Units: Months Frequency: Continuous Intervention/Comfort measure: Relaxation, Reposition Patient presents with: Right Foot - Established Patient, Follow Up, Pain Patient presents for right 5th toe pain. States that it has been bothering her for the last few months. Develops callus to 1st and 5th toe. [facility] 10/29/22 documented in this encounterThe [facility] System01-06-2025 NoteHNO ID: [id number] Author: SHERRON WARREN RN Service: ? Author Type: Registered Nurse Type: Progress Notes Filed: 02/28/2024 11:08 Note Text: [facility] ROOMING INTAKE FLOWSHEET DATA Pain Pain Level: 8 Pain Location: Toe Description: Throbbing Duration Units: Months Frequency: Continuous Intervention/Comfort measure: Relaxation, Reposition Patient presents with: Right Foot - Established Patient, Follow Up, Pain Patient presents for right 5th toe pain. States that it has been bothering her for the last few months. Develops callus to 1st and 5th toe. [facility] 10/29/22[facility]12-27-2024 Telephone encounter Note* Telephone Encounter - An Barker MA - 02/18/2024 5:02 PM EST Tanika, nurse, notified that antibiotic was called in and to obtain urine culture with sensitivity. She verbalizes understanding and is agreeable. An Barker MA February 18, 2024 5:03 PM [facility]12-27-2024 Miscellaneous Notes* Telephone Encounter - An Barker [...] - 02/18/2024 4:35 PM EST Tanika from [place] calls and states that patient is complaining of lower abdomen pain. Patient completed antibiotics on 02/12 for UTI. Nursing did urine dip on patient, patient was positive for WBCs, Nitrites, Protein, and Ketones. Tanika is faxing over results to provider. [facility] Please review and advise, Alejandrina Cooper RN documented in this encounterThe [facility]health System12-27-2024 Telephone encounter Note * Telephone Encounter - Donnell Dooley MD - 02/18/2024 4:48 PM EST Have them send for c and s. Rx sent [facility]12-27-2024 Telephone encounter Note* Telephone Encounter - Alejandrina Cooper RN - 02/18/2024 4:35 PM EST Tanika from [place] calls and states that patient is complaining of lower abdomen pain. Patient completed antibiotics on 02/12 for UTI. Nursing did urine dip on patient, patient was positive for WBCs, Nitrites, Protein, and Ketones. Tanika is faxing over results to provider. [facility] Please review and advise, Alejandrina Cooper RN [facility]12-20-2024 Telephone encounter Note* Telephone Encounter - Remberto Bob RN - 02/11/2024 12:08 PM EST Johanna returned call and given provider's message below with verbalized understanding. Johanna agreeable. [facility]12-20-2024 Miscellaneous Notes* Telephone Encounter - Remberto Bob RN - 02/11/2024 12:08 PM EST Johanna returned call and given provider's message below with verbalized understanding. Johanna agreeable. * Telephone Encounter - Jennifer Holm LPN - 02/11/2024 11:38 AM EST Left message for Johanna to call and speak with triage. I did pull culture report from [facility] [facility] are [facility] the ATB she [...] 02/07/2024 7:57 PM EST [facility] documented in this encounterThe [facility]12-[facility]24 Telephone encounter Note * Telephone Encounter - Jennifer Holm LPN - 02/11/2024 11:38 AM EST Left message for Driscoll to call and speak with triage. I did pull culture report from [facility] so we are sure the ATB she is on should help. If not helping that is why she needs ER. [facility] Telephone encounter Note* Telephone Encounter - Donnell Dooley MD - 02/11/2024 11:05 AM EST If still confused, to ER [facility]12-20-2024 Telephone encounter Note* Telephone Encounter - Alejandrina Cooper RN - 02/11/2024 11:03 AM EST Patient's daughter calls and states that patient has been on antibiotic for UTI for a couple of days. Daughter reports that patient is still out of it. Daughter asking if there is anything else that can be prescribed? Please review and advise, Alejandrina Cooper RN [facility]12-16-2024 Telephone encounter Note* Telephone Encounter - Donnell Dooley MD - 02/07/2024 7:57 PM EST [facility] sheet from [facility]11-22-2024 NoteHNO ID: [id number] Author: DONNELL DOOLEY MD Service: ? Author [...] Abs Lymph 1.00 - 4.00 k/uL 3.51 Bledsoe% % 7.6 Abs Bledsoe <0.87 k/uL 0.86 Eosin% % 3.7 Abs [...] shellfish into diet. Bacitracin Itching Latex Rash [place] Swelling PAST MEDICAL HISTORY Diagnosis Date Breast cancer (HCC (more content not included)...[facility] 01-14-2024 History of Present illness Narrative* [...] Abs Lymph 1.00 - 4.00 k/uL 3.51 Bledsoe% % 7.6 Abs Bledsoe <0.87 k/uL 0.86 Eosin% % 3.7 Abs [...] shellfish into diet. Bacitracin Itching Latex Rash [place] Swelling PAST MEDICAL HISTORY Diagnosis Date Breast [...] bronchitis.) Father other (Other) Brother Parkinson's vs [place]'s. age 61. other (Other) Other Meningioma: multiple [...] age. Donnell Dooley MD documented in this encounterThe [facility]health System11-14-2024 Telephone encounter Note * Telephone Encounter - Jessica Middleton LPN - 01/06/2024 2:01 PM EST Detailed VM left on Johanna's identified voicemail of information below. Jessica Middleton LPN [facility]11-14-2024 Miscellaneous Notes* Telephone Encounter - Jessica Middleton [...] the loss of Andre. documented in this encounterThe [facility]health System11-14-2024 Telephone encounter Note * Telephone Encounter - Donnell Dooley MD - 01/06/2024 1:48 PM EST Orders placed [facility]11-14-2024 Telephone encounter Note* Telephone Encounter - Jennifer Holm LPN - 01/06/2024 12:29 PM EST Rescheduled visit from this week till next. Johanna asking if there are any labs that should be done prior to visit? She doesn't have any major concerns. She has noticed a little more decline in memorybut she does relate this a little to the loss of Andre. [facility]-26[facility] Telephone encounter Note* Telephone Encounter - Kaleigh Simmons RN - 10/18/2023 4:02 PM EDT Bank Sales And Service Manager Haleigh at [facility] returning call to [facility] patient is improving since shebegan the Bactrim, as ordered by Dr. Gomez. Kaleigh Simmons RN [facility]08-26-2024 Miscellaneous Notes* Telephone Encounter - Kaleigh Simmons RN - 10/18/2023 4:02 PM EDT Bank Sales And Service Manager Haleigh at [facility] returning call to [facility] patient is improving since shebegan the Bactrim, as ordered by Dr. Gomez. Kaleigh Simmons RN * Telephone Encounter - Thao Bowen LPN - 10/18/2023 1:36 PM EDT Message left on community sports coordinator Rusty svitlana , instructed to call [...] - 10/16/2023 11:18 AM EDT Nurse from [facility] called to state that the urine culture report showed that one ofthe bacteria is resistant to macrobid. She is faxing the report for review. documented in this encounterThe Metrohealth System08-26-2024 Telephone encounter Note * Telephone Encounter - Thao Bowen LPN - 10/18/2023 1:36 PM EDT Message left on community sports coordinator Rusty ROBERTS, instructed to call office and ask for a triage nurse for update. Thao Bowen LPN [facility]08-25-2024 Telephone encounter Note* Telephone Encounter - Isabel Vegas RN - 10/17/2023 10:08 AM EDT Caregiver calling to verify new antibiotic and pharmacy information. Spoke with MEG Andrade from . Verified medication and pharmacy info in [facility]OLI. Caregiver denies anynew or worsening symptoms of which a provider is not aware:Yes . [facility]08-25-2024 Miscellaneous Notes* Telephone Encounter - Isabel Vegas RN - 10/17/2023 10:08 AM EDT Caregiver calling to verify new antibiotic and pharmacy information. Spoke with MEG Andrade from . Verified medication and pharmacy info in EPIC. Caregiver denies anynew or worsening symptoms of which a provider is not aware:Yes . documented in this encounterThe Metrohealth System08-25-2024 Telephone encounter Note * Telephone Encounter - [...] medication was sent to the [facility] in [place]. Daughter is advising that the medication should have been sent to [facility] because the patient is a resident at [facility]. On file, KEVIN sees [facility], daughter advising that this is incorrect. Daughter unsure of the contact information for [facility]. Daughter will have nurse from [facility] call back with the contact information for [facility] so it is ensured medication goes to the correct pharmacy. [facility] Miscellaneous Notes* Telephone Encounter - Roger Boateng [...] medication was sent to the [facility] in [place]. Daughter is advising that the medication should have been sent to [facility] because the patient is a resident at [facility]. On file, KEVIN sees [facility], daughter advising that this is incorrect. Daughter unsure of the contact information for [facility]. Daughter will have nurse from [facility] call back with the contact information for [facility] so it is ensured medication goes to the correct pharmacy. documented in this encounterThe [facility]health System08-25-2024 Telephone encounter Note * Telephone Encounter - Desi Gomez MD - 10/17/2023 7:35 AM EDT Rx sent for Bactrim DS BID x 7 days. Stop Macrobid. Go to ER with worsening symptoms of fever/chills, confusion, nausea, vomiting, abdominal pain, flank pain. Attempted to call daughter with this message without answer. LM to call office back regarding this. [facility] Telephone encounter Note* Telephone Encounter - Tammy North LPN - 10/16/2023 11:41 AM EDT Culture showed that Proteus mirabilie is susceptible to: ampicillin ampicillin.sulbactam cefazolin cefepime ceftriaxone ciprofloxacin ertapanem gentamicin levofloxacin piperacillin/tazobactam tobramycin trimethoprim/sulfametho See scanned documents [facility]08-24-2024 Telephone encounter Note* Telephone Encounter - Tammy North LPN - 10/16/2023 11:18 AM EDT Nurse from [facility] called to state that the urine culture report showed that one ofthe bacteria is resistant to macrobid. She is faxing the report for review. [facility]08-21-2024 Telephone encounter Note* Telephone Encounter - Jennifer Holm LPN - 10/13/2023 5:23 PM EDT Orders were given to Haleigh via phone. [facility]08-21-2024 Miscellaneous Notes* Telephone Encounter - Jennifer Holm LPN - 10/13/2023 5:23 PM EDT Orders were given to Haleigh via phone. * Telephone Encounter - Morelia Hewitt APRN.CNP - 10/13/2023 5:18 PM EDT Start macrobid 100 mg twice daily for 10 days. Send urine for culture. Morelia Hewitt APRN.PART TIME FLEXIBLE CLERK * Telephone Encounter - Jennifer Holm LPN - 10/13/2023 5:11 PM EDT UA showed 70+ WBC +nitrite no blood * Telephone Encounter - Kaleigh Simmons RN - 10/13/2023 4:48 PM EDT Nurse Haleigh calling from [facility] regarding patient. Reports they have sent a fax over to PCP office indicating pt has had recent abnormal urine dip along with confusion, increased frequency and urgency. Asking provider if they wish to order a urine culture and/or medication? Please either respond back on their fax, and fax to [phone] or call Nurse at [phone] withreply. Thank you. documented in this encounterThe [facility] System08-21-2024 Telephone encounter Note * Telephone Encounter - Morelia Hewitt APRN.CNP - 10/13/2023 5:18 PM EDT Start macrobid 100 mg twice daily for 10 days. Send urine for culture. Morelia Hewitt APRN.PART TIME FLEXIBLE CLERK [facility] Work Phone: 1(263) 830-897408-21-2024 Telephone encounter Note* Telephone Encounter - Jennifer Holm LPN - 10/13/2023 5:11 PM EDT UA showed 70+ WBC +nitrite no blood [facility]08-21-2024 Telephone encounter Note* Telephone Encounter - Kaleigh Simmons RN - 10/13/2023 4:48 PM EDT Nurse Ricardo calling from [facility] regarding patient. Reports they have sent a fax over to PCP office indicating pt has had recent abnormal urine dip along with confusion, increased frequency and urgency. Asking provider if they wish to order a urine culture and/or medication? Please either respond back on their fax, and fax to [phone] or call Nurse at [phone] withreply. Thank you. [facility]-25-[facility] Telephone encounter Note* Telephone Encounter - Alejandrina Cooper RN - 08/17/2023 11:32 AM EDT Johanna Calls back and notified of below. Johanna voices understanding. Johanna transferred to psych nurse to get testing scheduled. Alejandrina Cooper RN [facility]06-25-2024 Miscellaneous Notes* Telephone Encounter - Alejandrina Cooper RN - 08/17/2023 11:32 AM EDT Johanna Calls back and notified of below. Johanna voices understanding. Johanna transferred to psych nurse to get testing scheduled. Alejandrina Cooper, RN [...] went over results, notes from Morelia Hewitt NETWORK ENGINEER ADMINISTRATOR, daughter said mother is voiding more often [...] completely when she urinates? documented in this encounterThe Metrohealth System06-25-2024 Telephone encounter Note * Telephone Encounter - Ruby Delgado OCCA - 08/17/2023 11:18 AM EDT TC no answer. Left VM to return call.ANDERS Neff [facility]06-25-2024 Telephone encounter Note* Telephone Encounter - Morelia Hewitt APRN.CNP - 08/17/2023 10:22 AM EDT Lets have her get an ultrasound of the bladder to r/o urinary retention. The order is in. Morelia Hewitt APRN.REYNALDO [facility]06-25-2024 Telephone encounter Note* Telephone Encounter - Jennifer Conrad LPN - 08/17/2023 10:06 AM EDT Patient daughter Johanna returned call and went over results, notes from Morelia Hewitt NETWORK ENGINEER ADMINISTRATOR, daughter said mother is voiding more often may not be getting empty. [facility]06-25-[facility] Telephone encounter Note* Telephone Encounter - Parish Correia LPN - 08/17/2023 9:39 AM EDT Phoned daughter, Johanna. LM to return call to office. Parish Correia LPN [facility]06-24-2024 Telephone encounter Note* Telephone Encounter - Morelia [...] emptying her bladder completely when she urinates? [facility]06-22-2024 NoteHNO ID: [id number] Author: SAV MEJÍA APRN.PART TIME FLEXIBLE CLERK Service: ? Author Type: Nurse Practitioner [...] Codeine, Shellfish Containing Products, Bacitracin, Latex, and [place] MEDICATIONS aspirin, enteric coated (ASPIRIN, ENTERIC COATED) [...] bronchitis.) Father other (Other) Brother Parkinson's vs [place]'s. age 61. other (Other) Other Meningioma: multiple [...] abdominal pain, diarrhea, na (more content not included)...[facility]06-22-2024 History of Present illness Narrative* Sav Mejía, RADHA.PART TIME FLEXIBLE CLERK - 08/14/2023 1:54 PM EDT Subjective [...] Codeine, Shellfish Containing Products, Bacitracin, Latex, and [place] MEDICATIONS aspirin, enteric coated (ASPIRIN, ENTERIC COATED) [...] bronchitis.) Father other (Other) Brother Parkinson's vs [place]'s. age 61. other (Other) Other Meningioma: multiple [...] care. Sav Mejía APRN.REYNALDO documented in this encounterThe [facility]health System06-19-2024 History of Present illness Narrative* Erin Simon [...] PATIENT PRESENTS WITH AN IMPLANTABLE OR ATTACHED OPHTHALMIC AIDE: No RADIOLOGY DEPARTMENT: CT; Exam(s) Completed: Abdomen/Pelvis PERIPHERAL IV DATA: Not applicable SIGNED BY: RT Samantha(Stephanie) August 11, 2023 3:52 PM documented in this encounterThe [facility]health System06-19-2024 NoteHNO ID: [id number] Author: ERIN SIMON RT(R) Service: ? Author Type: Iron Worker Foreman Type: Progress Notes Filed: 08/11/2023 15:52 Note [...] PATIENT PRESENTS WITH AN IMPLANTABLE OR ATTACHED OPHTHALMIC AIDE: No RADIOLOGY DEPARTMENT: CT; Exam(s) Completed: Abdomen/Pelvis PERIPHERAL IV DATA: Not applicable SIGNED BY: RT Samantha(R) August 11, 2023 3:52 [facility]06-12-2024 Instructions* Patient Instructions* Morelia Hewitt APRN.CNP - 08/04/2023 9:[address] To ER with any severe symptoms. documented in this encounterThe [facility]health System06-12-2024 NoteHNO ID: [id number] Author: MORELIA HEWITT APRN.CNP Service: ? Author [...] back). Started a month ago. [facility]. Refers did a urine sample about a [...] CATARACT SURGERY, COMPLEX COLONOSCOPY W/BIOPSY SINGLE/MULTIPLE 10/12/2016 [facility] DIAG AND/OR THERAP, NOT OB EGD TRANSORAL BIOPSY SINGLE/MULTIPLE 10/12/2016 EGD W/O BRSH SPEC VARICIES INJ N/A HEMORRHOIDECTOMY MASTECTOMY HX Bilateral 1982 PAST SURGICAL HISTORY OF Bronchial artery embolization, left lung PAST SURGICAL HISTORY OF 2002 Lymph node removal on left arm SLING OPER STRES INCONTINENCE TOT ABDOMINL HYSTERECTOMY 1984 ALLERGIES Augmentin [Amoxicillin-Pot Clavulanate], Codeine, Shellfish Containing Products, Bacitracin, Latex, and [place] MEDICATIONS Current Outpatient Medications Medication Sig aspirin, [...] use: No EXAM: BP (more content not included)...[facility]06-12-20[facility] History of Present illness Narrative* Morelia Hewitt APRN.PART TIME FLEXIBLE CLERK - 08/04/2023 9:26 AM EDT This [...] back). Started a month ago. [facility]. Refers did a urine sample about a [...] Codeine, Shellfish Containing Products, Bacitracin, Latex, and [place] MEDICATIONS Current Outpatient Medications Medication Sig aspirin, [...] normal. ASSESSMENT/PLAN: 1. Pelvic pain - ICD9: [id number], ICD10: R10.2 (primary diagnosis) - Work up [...] as needed for worsening/no improvement. Morelia Hewitt APRN.PART TIME FLEXIBLE CLERK documented in this encounterThe [facility] System06-11-2024 Telephone encounter Note * Telephone Encounter - Zoye Lorenzo LPN - 08/03/2023 4:48 PM EDT Pt's daughter Johanna requested letter be sent through . Zoey Lorenzo LPN [facility]06-11-2024 Miscellaneous Notes* Telephone Encounter - Zoey Lorenzo LPN - 08/03/2023 4:48 PM EDT Pt's daughter Johanna requested letter be sent through . Zoey Lorenzo LPN documented in this encounterThe [facility] System06-11-2024 Telephone encounter Note * Telephone Encounter - Olinda Knight MA - 08/03/2023 1:47 PM EDT Placed call to Johanna. Left message for return call. Mail or fax letter? Olinda Knight MA [facility]06-11-2024 Miscellaneous Notes* Telephone Encounter - Olinda Knight MA - 08/03/2023 1:47 PM EDT Placed call to Johanna. Left message for return call. Mail or fax letter? Olinda Knight MA * Telephone Encounter - Donnell Dooley MD - 08/03/2023 12:09 PM EDT See printed letter. Also wrote husbands documented in this encounterThe [facility] System06-11-2024 Telephone encounter Note * Telephone Encounter - Alejandrina Cooper RN - 08/03/2023 1:05 PM EDT Patient call in for pelvic pain with urination frequency and burning. Nurse Triage assessment completed with protocol recommending for disposition of See PCP in 24 hours. Patient scheduled with [facility] for tomorrow morning at 9:00 am. Care [...] with Urination Protocols used: Pelvic Pain - [id number] [facility]06-11-2024 Miscellaneous Notes* Telephone Encounter - Alejandrina Cooper [...] with Urination Protocols used: Pelvic Pain - [id number] documented in this encounterThe [facility]health System06-11-2024 Telephone encounter Note * Telephone Encounter - Donnell Dooley MD - 08/03/2023 12:09 PM EDT See printed letter. Also wrote husbands [facility]05-23-2024 Telephone encounter Note* Telephone Encounter - Amber Griffith APRN.CNS - 07/15/2023 5:10 PM EDT [facility] report of urine culture. There are 3 organisms all colonized. Contaminated urine. Treating bacteria is not appropriate. It does not appear that she has a urinarytract infection. [facility]-23-2024 Miscellaneous Notes* Telephone Encounter - Amber Griffith APRN.CNS - 07/15/2023 5:10 PM EDT [facility] report of urine culture. There are 3 organisms all colonized. Contaminated urine. Treating bacteria is not appropriate. It does not appear that she has a urinarytract infection. documented in this encounterThe [facility]health System05-06-2024 History of Present illness Narrative* Donnell Dooley [...] Abs Lymph 1.00 - 4.00 k/uL 3.68 Bledsoe% % 5.8 Abs Bledsoe <0.87 k/uL 0.68 Eosin% % 2.7 Abs [...] shellfish into diet. Bacitracin Itching Latex Rash [place] Swelling PAST MEDICAL HISTORY Diagnosis Date Breast [...] bronchitis.) Father other (Other) Brother Parkinson's vs [place]'s. age 61. other (Other) Other Meningioma: multiple [...] stable. Donnell Dooley MD documented in this encounterThe [facility] System03-26-2024 Miscellaneous Notes* Telephone Encounter - An Barker MA - 05/18/2023 1:46 PM EDT See other telephone encounter An Barker MA May 18, 2023 1:47 PM * Telephone Encounter - Amber Griffith APRN.BANDAGE WINDING MACHINE OPERATOR - 05/18/2023 12:51 PM EDT Images from the original note were not included. Robyn Wound Nurse from [place] calls and states that she just received [...] Cooper RN Note Robyn Wound Nurse from [place] [phone] Alejandrina Cooper, RN documented in this encounterThe [facility]health System03-26-2024 Nurse Note* An Barker MA - 05/18/2023 1:25 PM EDT Robyn,Wound Nurse from [place] called after visit was complete. and states that she does not think that duoderm is working for patient's wound. It is keeping the wound too moist. Robyn is recommendinga Gricel collagen type dressing, topped with alginate, changed daily. Provider agreed with plan. An Barker MA May 18, 2023 1:46 PM documented in this encounterThe [facility]health System03-26-2024 Miscellaneous Notes* Telephone Encounter - An Barker MA - 05/18/2023 1:22 PM EDT Spoke with Robyn Wound nurse, and advised ok to continue prism collagen type dressing, topped with alginate, changed daily. * Telephone Encounter - Amber Griffith APRN.CNS - 05/18/2023 12:48 PM EDT Please let [facility] care facility that it is fine for them to dress daily with wound nurse's recommendation. documented in this encounterThe [facility]health System03-26-2024 Instructions* Patient Instructions* Amber Griffith APRN.CNS - 05/18/2023 11:39 AM EDT 1) May change Duoderm every 3-5 days and if soiled 2) Cleanse with normal saline and reapply 3) More supplies sent to pharmacy of record 4) Follow up with Dr. Dooley 06/27 for routine care and wound check documented in this encounterThe [facility]health System03-26-2024 History of Present illness Narrative* Amber Griffith [...] Codeine, Shellfish Containing Products, Bacitracin, Latex, and [place] MEDICATIONS Current Outpatient Medications Medication Sig fluticasone [...] agrees with the plan. documented in this encounterThe [facility] System03-22-2024 Miscellaneous Notes* Telephone Encounter - Olinda Knight [...] PM EDT Robyn, Wound Care Nurse @ [facility], reports pcp provider ordered duoderm for patient's LLL wound. Reports it is not working, the drainage is just sitting there, the wound is macerated, and larger. Robyn is recommending using a Gricel collagen type dressing, top with alginate (an absorbant gauze) and change daily. Asking for verbal order to use the recommended treatment. Please call Robyn with verbal order: [phone] Robyn will be there until 3 or 4 today. documented in this encounterThe [facility] System03-22-2024 Miscellaneous Notes* Telephone Encounter - Olinda Knight MA - 05/14/2023 2:36 PM EDT See other TC. Olinda Knight MA * Telephone Encounter - Amber Griffith APRN.CNS - 05/14/2023 1:50 PM EDT Please let visiting nurse know that they may use their dressing of preference. documented in this encounterThe [facility] System03-12-2024 Instructions* Patient Instructions* Amber Griffith APRN.CNS - 05/04/2023 2:54 PM EDT 1) Duoderm every 3 days and as needed 2) Increase protein in diet 3) Increase vitamin C in your diet 4) Keep left leg elevated 5) Follow up in 2 weeks documented in this encounterThe [facility]health System03-12-2024 History of Present illness Narrative* Amber Griffith [...] Codeine, Shellfish Containing Products, Bacitracin, Latex, and [place] MEDICATIONS Current Outpatient Medications Medication Sig fluticasone [...] bronchitis.) Father other (Other) Brother Parkinson's vs [place]'s. age 61. other (Other) Other Meningioma: multiple [...] agrees with the plan. documented in this encounterThe [facility]health System02-12-2024 Instructions* Patient Instructions* Dallas Calabrese APRN.CNP - [...] this time as well. documented in this encounterThe Metrohealth System02-12-2024 History of Present illness Narrative* Dallas Calabrese [...] bronchitis.) Father other (Other) Brother Parkinson's vs [place]'s. age 61. other (Other) Other Meningioma: multiple cousins Patient Allergies ALLERGIES ALLERGIES Allergen Reactions Augmentin [Amoxicil* Vomiting Codeine GI Upset, Vomiting Shellfish Containin* Swelling, Anaphylaxis, Shortness of Breath, Other: See Comments, Hives No serious trouble with recent re-introduction of shellfish into diet. Bacitracin Itching Latex Rash [place] Swelling Current Medications Current Outpatient Medications on [...] - US DVT LOWER LEFT Dallas Calabrese, RELIABILITY TECHNOLOGIST.PART TIME FLEXIBLE CLERK Currently: Ultrasound was negative for DVT. [...] bronchitis.) Father other (Other) Brother Parkinson's vs [place]'s. age 61. other (Other) Other Meningioma: multiple cousins Patient Allergies ALLERGIES Allergen Reactions Augmentin [Amoxicil* Vomiting Codeine GI Upset, Vomiting Shellfish Containin* Swelling, Anaphylaxis, Shortness of Breath, Other: See Comments, Hives No serious trouble with recent re-introduction of shellfish into diet. Bacitracin Itching Latex Rash [place] Swelling Current Medications Current Outpatient Medications on [...] doxy course Continue with elevation Dallas Calabrese APRN.PART TIME FLEXIBLE CLERK documented in this encounterThe Metrohealth System02-09-2024 NoteHNO ID: [id number] Author: IZAIAH ROSSI TECHNOLOGIST Service: ? Author [...] PATIENT PRESENTS WITH AN IMPLANTABLE OR ATTACHED OPHTHALMIC AIDE: No RADIOLOGY DEPARTMENT: Ultrasound PERIPHERAL IV DATA: Not applicable SIGNED BY: GILL ProctorOLOGIST April 02, 2023 4:25 [facility]02-09-2024 History of Present illness Narrative* Izaiah Rossi [...] PATIENT PRESENTS WITH AN IMPLANTABLE OR ATTACHED OPHTHALMIC AIDE: No RADIOLOGY DEPARTMENT: Ultrasound PERIPHERAL IV DATA: Not applicable SIGNED BY: TECHNOLOGIST Esthela April 02, 2023 4:25 PM documented in this encounterThe [facility]health System02-09-2024 Miscellaneous Notes* Telephone Encounter - Patrizia Bradford - 04/02/2023 3:18 PM EST Faxed to [facility]IK[facility] Bradford * Telephone Encounter - Dallas Calabrese APRN.CNP - 04/02/2023 3:13 PM EST Can my order be printed? Or am I supposed to put in a whole new order? Dallas Calabrese APRN.CNP * Telephone Encounter - Remberto Bob RN - 04/02/2023 2:41 PM EST Maura- [facility]- reports daughter informed them Vessel Crew Member sent Rx to pharmacy for doxycycline. Maura asking provider to fax them an order so that they can put it into their system. documented in this encounterThe Metrohealth System02-09-2024 Instructions* Patient Instructions* Dallas Calabrese APRN.CNP - [...] Wednesday 04/05 at 1:20. documented in this encounterThe Metrohealth System02-09-2024 History of Present illness Narrative* Dallas Calabrese [...] shellfish into diet. 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 age 61. other (Other) Other Meningioma: multiple [...] shellfish into diet. Bacitracin Itching Latex Rash [place] Swelling CURRENT OUTPATIENT MEDICATIONS: fluticasone propion-salmeterol 232-14 [...] which included preparing to see the patient, [id number]-[id number] patient care, completing clinical documentation, obtaining and/or reviewing separately obtained history, performing a medically appropriate examination, counseling and educating the pat ient/family/caregiver, independently interpreting results (not separately reported), and communicating results to the patient/family/caregiver. Electronically Signed: Margarito Shields MD January 27, 2023 9:55 AM documented in this encounterThe Metrohealth System11-01-2023 Miscellaneous Notes* Telephone Encounter - Yary AllynMalinaLianna [...] call patient to schedule. documented in this encounterThe Metrohealth System11-01-2023 History of Present illness Narrative* Donnell Dooley MD - 12/23/2022 10:38 AM EDT Patient presents with: Follow Up HPI: Patient presents today for office visit for follow up. Currently resides in [facility]. Follows with podiatry. Has not seen Dr. Haq. Memory is the same. Not any worse. She writes a lot of things down to help her remember. Had last mri in 2021. PULM: Still seeing Dr. Antunez with [facility] Breathing is stable Using oxygen at [...] since retired. Still sees Dr Antunez, at [facility]. Meds have recently been changed. Uses [...] shellfish into diet. Bacitracin Itching Latex Rash [place] Swelling PAST MEDICAL HISTORY Diagnosis Date Breast [...] bronchitis.) Father other (Other) Brother Parkinson's vs [place]'s. age 61. other (Other) Other Meningioma: multiple [...] pulmonary. Donnell Dooley MD documented in this encounterThe Metrohealth System10-20-2023 Miscellaneous Notes* Telephone Encounter - Jennifer Holm LPN - 12/11/2022 2:03 PM EDT Completed and faxed back as requested. * Telephone Encounter - Parish Correia LPN - 12/11/2022 10:22 AM EDT Type of form: NH orders Form received via fax When form is completed, Fax form to [phone] Form has been forwarded to Physician Mailbox: Dr. Soumya Correia LPN documented in this encounterThe Metrohealth System10-17-2023 Miscellaneous Notes* Telephone Encounter - Amber Clark LPN - 12/08/2022 3:58 PM EDT Therapy department at [facility], notified. Verbalized understanding. * Telephone Encounter - Donnell Dooley MD - 12/08/2022 3:53 PM EDT Ok to do * Telephone Encounter - Amber Clark LPN - 12/08/2022 3:42 PM EDT Faxed received from [facility] Requesting OT Eval and Tx orders for patient due to recent ER visit, collar bone discomfort, and patient reporting difficulty dressing now. Please review and advise documented in this encounterThe Metrohealth System10-13-2023 Miscellaneous Notes* Telephone Encounter - Jessica Middleton [...] - 12/04/2022 12:00 PM EDT Haleigh with [facility] called to let you know pt woke up this am complaining of left shoulder pain and now she is having left shoulder pain down to left foot. Vital signs are stable, 11:45am BP 112/64 pulse 73. Pt denies any chest pain. Please advise Jessica Ricardo LPN documented in this encounterThe Metrohealth System09-25-2023 Miscellaneous Notes* Telephone Encounter - Skye Payton [...] 11/16/2022 1:22 PM EDT Haleigh, nurse at [facility] nursing facility calling. States patient fell [...] order for xray? Please call Haleigh at [phone]. Thank you. documented in this encounterThe Metrohealth System09-07-2023 History of Present illness Narrative* Danika Helms [...] shellfish into diet. Bacitracin Itching Latex Rash [place] Swelling Objective: Incision site is healed without [...] Up Denise Bowman LPN documented in this encounterThe Metrohealth System08-31-2023 Instructions* Patient Instructions* Danika Helms - 10/22/2022 9:07 AM EDT Your foot looks great Continue with bandage change every 2-3 days Continue with post-op shoe Plan for suture removal next week documented in this encounterThe Metrohealth System08-31-2023 History of Present illness Narrative* Danika Helms [...] shellfish into diet. Bacitracin Itching Latex Rash [place] Swelling Objective: Incision site is well coapted [...] Amputation Denise Bowman LPN documented in this encounterThe Metrohealth System08-28-2023 Miscellaneous Notes* Telephone Encounter - Denise Bowman LPN - 10/19/2022 4:52 PM EDT Patient rescheduled. Denise Bowman LPN * Telephone Encounter - Denise Bowman LPN - 10/19/2022 4:32 PM EDT Called patients daughter to possibly move patients appointment due to provider being in surgery. Please transfer patient to podiatry staff. Denise Bowman LPN documented in this encounterThe Metrohealth System08-22-2023 History of Present illness Narrative* Danika Helms [...] shellfish into diet. Bacitracin Itching Latex Rash [place] Swelling Objective: Incision site is well coapted [...] shoe at this time. documented in this encounterThe Metrohealth System08-22-2023 Instructions* Patient Instructions* Danika Helms - 10/13/2022 [...] you have any questions, call scooter at [phone] documented in this encounterThe Metrohealth System08-21-2023 Miscellaneous Notes* Telephone Encounter - Danika Helms - 10/12/2022 8:31 PM EDT I called patient this evening and spoke with daughter. Patient daughter reports that her pain is doing well. Has no complaints. Is coming in for a dressing change tomorrow am. If they have any questions or concerns, they are to contact the office Danika Helms DPM documented in this encounterThe Metrohealth System08-21-2023 Miscellaneous Notes* Telephone Encounter - Denise Bowman [...] schedule Danika Helms DPM documented in this encounterThe Metrohealth System08-18-2023 Miscellaneous Notes* Telephone Encounter - Denise Bowman LPN - 10/09/2022 2:44 PM EDT PAT patient preoperative instruction was faxed to [phone] with the att. to [facility] station. Denise Bowman LPN * Telephone Encounter - Erin Peter LPN - 10/09/2022 1:38 PM EDT Amy. WEAVER with [facility] called. Verified name and date [...] letter, hibiclens, mitchellicleloreta instruction, and map of [facility]. Patient was schedule for preadmission testing and surgical request was placed in [facility]. Denise Bowman LPN documented in this encounterThe Metrohealth System08-18-2023 Miscellaneous Notes* Telephone Encounter - Molly Delacruz LPN - 10/09/2022 9:59 AM EDT Received Cardiac records from [facility]. Original sent to [facility] through Onbase scanning. Molly Delacruz LPN * Telephone Encounter - Molly Delacruz LPN - 10/07/2022 11:44 AM EDT Fax request sent to [facility] for last office visit and cardiac testing for upcoming surgery. Molly Delacruz LPN * Telephone Encounter - Molly Delacruz LPN - 10/07/2022 11:37 AM EDT Fax request sent to [facility] requesting last office visit. Molly Delacruz LPN documented in this encounterThe Metrohealth System08-15-2023 Miscellaneous Notes* Telephone Encounter - Guera Roy RN - 10/06/2022 1:11 PM EDT Faxed OV note and medication list to [phone] per request of Domonique. Guera Roy RN * Telephone Encounter - Remberto Bob RN - 10/02/2022 11:44 AM EDT Titi HAIRSTON, reports patient will be moving from independent living to assisted living on 10-07-22.Will need H & P within 30 days of moving date. Last seen in pcp office: 06-14-22. Scheduled apptfor H & P on 10-05-22. documented in this encounterThe Metrohealth System08-15-2023 History of Present illness Narrative* Danika Helms - 10/06/2022 1:09 PM EDT Subjective: Patient presents to clinic c/o painful toenails. They state that the nails are especially painful with shoe gear and pressure. Patient also complaining of painful callus between her adpea8sk and 2nd toe. She states that it has been about 2 months since she had her callus debrided and as a result, her pain to her first and 2nd toe is severe. No other pedal complaints at this time. Patient states no change in medications or medical history since last visit. Objective: Patient presents to clinic ambulating in [facility] Vasc: DP and PT pulses are palpable [...] Patient, Debridement of Nail documented in this encounterThe Metrohealth System08-14-2023 Instructions* Patient Instructions* Donnell Dooley MD - 10/05/2022 7:45 PM EDT Needs to see hematology, neurology, and pulmonary. documented in this encounterThe Metrohealth System08-14-2023 History of Present illness Narrative* Donnell Dooley [...] since retired. Still sees Dr Antunez, at [facility]. Meds have recently been changed. Uses oxygen at hs. Follows with Dr. Helms, podiatry. Sees Dr. Triana for pain management. Has had some more increased pain. Meniere's is stable. Sees Dr Ramírez and uses meclizine prn. Sees [facility] but needs to follow up [...] Abs Lymph 1.00 - 4.00 k/uL 3.82 Bledsoe% % 6.9 Abs Bledsoe <0.87 k/uL 1.03 (H) Eosin% % 1.3 [...] shellfish into diet. Bacitracin Itching Latex Rash [place] Swelling PAST MEDICAL HISTORY Diagnosis Date Breast [...] bronchitis.) Father other (Other) Brother Parkinson's vs [place]'s. age 61. other (Other) Other Meningioma: multiple [...] six months and prn. documented in this encounterThe Metrohealth System08-10-2023 Miscellaneous Notes* Telephone Encounter - Olinda Knight - 10/01/2022 4:38 PM EDT Faxed to [facility]. Olinda Knight * Telephone Encounter - Donnell Dooley MD - 10/01/2022 8:37 AM EDT Printed. * Telephone Encounter - Alejandrina Cooper RN - 09/30/2022 12:52 PM EDT Patient's daughter calls and states that patient is moving from independent living to [facility] assisted care. Daughter states that [facility] is going to need a letter from provider that states that provider recommends patient to be in assisted living. Please review and advise, Alejandrina Cooper RN documented in this encounterThe Metrohealth System07-27-2023 Miscellaneous Notes* Telephone Encounter - Guera Roy RN - 09/17/2022 10:51 AM EDT Domonique with [facility] calls to request Face Sheet, Insurance Info, OV Note, Current Medication list withH&P. Verbal ok received from daughter Johanna to send. Faxed to [facility] per request. Guera Roy RN documented in this encounterThe Metrohealth System06-01-2023 History of Present illness Narrative* Danika Helms [...] shellfish into diet. Bacitracin Itching Latex Rash [place] Swelling PAST SURGICAL HISTORY Procedure Laterality Date [...] Pain Denise Bowman LPN documented in this encounterThe Metrohealth System04-27-2023 History of Present illness Narrative* Danika Helms [...] 4.3 - 5.6 % Final PCP: Donnell Dooely MD PAST MEDICAL HISTORY Diagnosis Date Breast [...] shellfish into diet. Bacitracin Itching Latex Rash [place] Swelling PAST SURGICAL HISTORY Procedure Laterality Date [...] wellpost total nail removal. documented in this encounterThe Metrohealth System04-27-2023 Miscellaneous Notes* Telephone Encounter - Ronda Ruiz [...] can advise? Thank you. documented in this encounterThe Metrohealth System04-26-2023 Miscellaneous Notes* Telephone Encounter - Kaliegh Simmons RN - 06/17/2022 1:40 PM EDT [...] labs in one week documented in this encounterThe Metrohealth System04-24-2023 History of Past illness Narrative* Problem Noted Date Diagnosed Date Resolved Date Atrial fibrillation 06/15/2022 12/24/19 Last Assessment & Plan: Assessment: following [facility], records requested History of breast cancer in female 05/12/2017 03/24/2018 Epigastric pain 05/11/2016 12/20/2020 Chronic bronchitis Overview: Sees Dr. Antunez at [facility] documented as of this encounter (statuses as of 12/23/2022) [facility]04-24-2023 History of Past illness Narrative* Problem Noted Date Diagnosed Date Resolved Date Atrial fibrillation 06/15/2022 12/24/19 Last Assessment & Plan: Assessment: following [facility], records requested History of breast cancer in female 05/12/2017 03/24/2018 Epigastric pain 05/11/2016 12/20/2020 Chronic bronchitis Overview: Sees Dr. Antunez at [facility] documented as of this encounter (statuses as of 12/24/2022) [facility]04-24-2023 History of Past illness Narrative* Problem Noted Date Diagnosed Date Resolved Date Atrial fibrillation 06/15/2022 12/24/19 Last Assessment & Plan: Assessment: following [facility], records requested History of breast cancer in female 05/12/2017 03/24/2018 Epigastric pain 05/11/2016 12/20/2020 Chronic bronchitis Overview: Sees Dr. Antunez at [facility] documented as of this encounter (statuses as of 01/27/2023) [facility]04-24-2023 History of Past illness Narrative* Problem Noted Date Diagnosed Date Resolved Date Atrial fibrillation 06/15/2022 12/24/19 Last Assessment & Plan: Assessment: following [facility], records requested History of breast cancer in female 05/12/2017 03/24/2018 Epigastric pain 05/11/2016 12/20/2020 Chronic bronchitis 3 Overview: Sees Dr. Antunez at [facility] documented as of this encounter (statuses as of 04/02/2023) [facility]04-24-2023 History of Past illness Narrative* Problem Noted Date Diagnosed Date Resolved Date Atrial fibrillation 06/15/2022 12/24/19 Last Assessment & Plan: Assessment: following [facility], records requested History of breast cancer in female 05/12/2017 03/24/2018 Epigastric pain 05/11/2016 12/20/2020 Chronic bronchitis Overview: Sees Dr. Antunez at [facility] documented as of this encounter (statuses as of 04/03/2023) [facility]04-24-[facility] History of Past illness Narrative* Problem Noted Date Diagnosed Date Resolved Date Atrial fibrillation 06/15/2022 12/24/19 Last Assessment & Plan: Assessment: following [facility], records requested History of breast cancer in female 05/12/2017 03/24/2018 Epigastric pain 05/11/2016 12/20/2020 Chronic bronchitis Overview: Sees Dr. Antunez at [facility] documented as of this encounter (statuses as of 04/07/2023) [facility]04-24-[facility] History of Past illness Narrative* Problem Noted Date Diagnosed Date Resolved Date Atrial fibrillation 06/15/2022 12/24/19 Last Assessment & Plan: Assessment: following [facility], records requested History of breast cancer in female 05/12/2017 03/24/2018 Epigastric pain 05/11/2016 12/20/2020 Chronic bronchitis Overview: Sees Dr. Antunez at [facility] documented as of this encounter (statuses as of 04/07/2023) [facility]04-24-[facility] History of Past illness Narrative* Problem Noted Date Diagnosed Date Resolved Date Atrial fibrillation 06/15/2022 12/24/19 Last Assessment & Plan: Assessment: following [facility], records requested History of breast cancer in female 05/12/2017 03/24/2018 Epigastric pain 05/11/2016 12/20/2020 Chronic bronchitis Overview: Sees Dr. Antunez at [facility] documented as of this encounter (statuses as of 05/05/2023) [facility]04-24-[facility] History of Past illness Narrative* Problem Noted Date Diagnosed Date Resolved Date Atrial fibrillation 06/15/2022 12/24/19 Last Assessment & Plan: Assessment: following [facility], records requested History of breast cancer in female 05/12/2017 03/24/2018 Epigastric pain 05/11/2016 12/20/2020 Chronic bronchitis 3 Overview: Sees Dr. Antunez at [facility] documented as of this encounter (statuses as of 05/14/2023) [facility]04-24-[facility] History of Past illness Narrative* Problem Noted Date Diagnosed Date Resolved Date Atrial fibrillation 06/15/2022 12/24/19 Last Assessment & Plan: Assessment: following [facility], records requested History of breast cancer in female 05/12/2017 03/24/2018 Epigastric pain 05/11/2016 12/20/2020 Chronic bronchitis 3 Overview: Sees Dr. Antunez at [facility] documented as of this encounter (statuses as of 05/14/2023) [facility] History of Past illness Narrative* Problem Noted Date Diagnosed Date Resolved Date Atrial fibrillation 06/15/2022 12/24/19 Last Assessment & Plan: Assessment: following [facility], records requested History of breast cancer in female 05/12/2017 03/24/2018 Epigastric pain 05/11/2016 12/20/2020 Chronic bronchitis 3 Overview: Sees Dr. Antunez at [facility] documented as of this encounter (statuses as of 05/18/2023) [facility] History of Past illness Narrative* Problem Noted Date Diagnosed Date Resolved Date Atrial fibrillation 06/15/2022 12/24/19 Last Assessment & Plan: Assessment: following [facility], records requested History of breast cancer in female 05/12/2017 03/24/2018 Epigastric pain 05/11/2016 12/20/2020 Chronic bronchitis Overview: Sees Dr. Antunez at [facility] documented as of this encounter (statuses as of 05/18/2023) [facility]04-24-[facility] History of Present illness Narrative* Donnell Dooley [...] shellfish into diet. Bacitracin Itching Latex Rash [place] Swelling PAST MEDICAL HISTORY Diagnosis Date Breast [...] bronchitis.) Father other (Other) Brother Parkinson's vs [place]'s. age 61. other (Other) Other Meningioma: multiple [...] agel Donnell Dooley MD documented in this encounterThe Metrohealth System03-29-2023 Miscellaneous Notes* Telephone Encounter - Jennifer Holm LPN - 05/20/2022 1:23 PM EDT Completed and faxed. * Telephone Encounter - Parish Correia LPN - 05/19/2022 10:40 AM EDT Type of form: Physical Therapy Orders Form received via fax When form is completed, Fax form to [phone] Form has been forwarded to Physician Mailbox: Dr. Soumya Correia LPN documented in this encounterThe Metrohealth System03-23-2023 History of Present illness Narrative* Danika Helms [...] (FLONASE) 50 mcg/actuation nasal spray Use 1 Jackson in each nostril once daily. CALCIUM ORAL [...] shellfish into diet. Bacitracin Itching Latex Rash [place] Swelling PAST SURGICAL HISTORY Procedure Laterality Date [...] toe. Denise Bowman LPN documented in this encounterThe Metrohealth System03-23-2023 Instructions* Patient Instructions* Danika Helms - 05/14/2022 1:45 PM EDT Your wound appears to be healing Continue with soaks for 1-2 more weeks or until healed Call if any issues arise documented in this encounterThe Metrohealth System03-09-2023 History of Present illness Narrative* Sherron Warren [...] History of ileus Meniere's disease Dr. Mendosa, [facility]. Meningioma (HCC) Mitral valve regurgitation Non [...] (FLONASE) 50 mcg/actuation nasal spray Use 1 Jackson in each nostril once daily. CALCIUM ORAL [...] shellfish into diet. Bacitracin Itching Latex Rash [place] Swelling PAST SURGICAL HISTORY Procedure Laterality Date [...] are audible with doppler. Non-Invasive Vascular Laboratory [facility] Lower Extremity Arterial Physiology Study Bilateral/Complete Date [...] Normal at rest. Technologist: Eugenia Wang RVT, [facility] Ordering physician: DANIKA HELMS Interpreting physician: AMINA [...] foot. Denise Bowman LPN documented in this encounterThe Metrohealth System03-09-2023 Instructions* Patient Instructions* Sherron Warren RN - [...] as well if you have any questions/concerns [phone], ask for Podiatry Nurse documented in this encounterThe Metrohealth System02-22-2023 Miscellaneous Notes* Telephone Encounter - Guera Roy [...] SYMPTOMS: Just feels off. Protocols used: Neurologic Shwgyry-LUFNQ-KS documented in this encounterThe Metrohealth System02-04-2023 History of Present illness Narrative* Danika Helms [...] (FLONASE) 50 mcg/actuation nasal spray Use 1 Jackson in each nostril once daily. CALCIUM ORAL [...] shellfish into diet. Bacitracin Itching Latex Rash [place] Swelling PAST SURGICAL HISTORY Procedure Laterality Date [...] foot pain and callus. documented in this encounterThe Metrohealth System01-23-2023 History of Present illness Narrative* Patsy Valencia APRN.PART TIME FLEXIBLE CLERK - 03/16/2022 10:44 AM EST CC: [...] Codeine, Shellfish Containing Products, Bacitracin, Latex, and [place] MEDICATIONS rivastigmine tartrate (EXELON) 1.5 mg capsule [...] (FLONASE) 50 mcg/actuation nasal spray Use 1 Jackson in each nostril once daily. CALCIUM ORAL [...] bronchitis.) Father other (Other) Brother Parkinson's vs [place]'s. age 61. other (Other) Other Meningioma: multiple [...] changes. IMPRESSION IMPRESSION: No acute radiographic abnormality. Office Service Coordinator: TAMMY Transcribe Date/Time: Mar 16 2022 11:37A [...] daughter agreeable to treatment plan. Patsy Valencia APRN.PART TIME FLEXIBLE CLERK documented in this encounterThe Metrohealth System01-23-2023 Miscellaneous Notes* Telephone Encounter - Remberto Bob [...] exposures. Had flu over [place]. Lives at [facility] independent living. Protocols used: Cough - Acute Lil-Ktvsmmibeg-WCGQR-AH documented in this encounterThe Metrohealth System12-06-2022 History of Present illness Narrative* Danika Helms [...] History of ileus Meniere's disease Dr. Mendosa, [facility]. Meningioma (HCC) Mitral valve regurgitation Non [...] (FLONASE) 50 mcg/actuation nasal spray Use 1 Jackson in each nostril once daily. CALCIUM ORAL [...] shellfish into diet. Bacitracin Itching Latex Rash [place] Swelling PAST SURGICAL HISTORY Procedure Laterality Date [...] Right greater toe pain. documented in this encounterThe Metrohealth System10-31-2022 History of Present illness Narrative* Danika Helms [...] (FLONASE) 50 mcg/actuation nasal spray Use 1 Jackson in each nostril once daily. CALCIUM ORAL [...] - Follow Up, Callous documented in this encounterThe Metrohealth System10-18-2022 History of Present illness Narrative* Donnell Doolye MD - 12/09/2021 1:21 PM EDT Patient [...] was put on a medrol per the NETWORK ENGINEER ADMINISTRATOR at her facility and it improved. Now having some issues with her right hip and back on her leg. Hurts to lay down and move. No falls or trauma. No redness or warmth in the leg. Has some mild numbness No issues controlling bowel or bladder. Neuro:will not take aricept. [place] dizzy. Has menier's also. PULM: still wearing [...] (FLONASE) 50 mcg/actuation nasal spray Use 1 Jackson in each nostril once daily. CALCIUM ORAL [...] SEASONAL QUADRIVALENT HIGH DOSE AGE 65+ - [employer] COVID-19 BIVALENT BOOSTER VACCINE, AGE 12+ YR [...] RTO in six months documented in this encounterThe Metrohealth System09-29-2022 History of Present illness Narrative* Catrachita Osuna - 11/20/2021 2:15 PM EDT POPULATION HEALTH NAVIGATION OUTREACH Action/I Francis Support: Called pt to schedule an appt in Pain Management. Lvm for pt to call [phone] for scheduling. Pt identified by name and [...] 20, 2021 2:15 PM documented in this encounterThe Metrohealth System09-15-2022 History of Present illness Narrative* Danika Helms [...] (FLONASE) 50 mcg/actuation nasal spray Use 1 Jackson in each nostril once daily. CALCIUM ORAL [...] EGD TRANSORAL BIOPSY SINGLE/MULTIPLE 10/12/2016 EGD W/O [facility] SPEC VARICIES INJ N/A HEMORRHOIDECTOMY MASTECTOMY HX [...] Continuous Intervention/Comfort measure: Relaxation documented in this encounterThe [facility]09-07-2022 Miscellaneous Notes* Telephone Encounter - Jennifer Holm LPN - 10/29/2021 4:33 PM EDT Faxed order as requested. * Telephone Encounter - Donnell Dooley MD - 10/29/2021 4:20 PM EDT done * Telephone Encounter - Jennifer Holm LPN - 10/29/2021 4:01 PM EDT [facility] requesting order for outpatient PT orders due to decreased strength, balance, and walking without assistive device. Please see pending order so can be printed and faxed as requested to [phone]. documented in this encounterThe Metrohealth System09-01-2022 History of Present illness Narrative* Molly Hays - 10/23/2021 5:40 PM EDT POPULATION HEALTH NAVIGATION OUTREACH Action/[facility] OUTREACH: M for Patient to call [phone] to schedule PT Consult Pt identified by [...] 23, 2021 5:40 PM documented in this encounterThe Metrohealth System08-18-2022 History of Present illness Narrative* Danika Helms [...] 4.3 - 5.6 % Final PCP: Donnell Doolye MD PAST MEDICAL HISTORY Diagnosis Date Breast [...] (FLONASE) 50 mcg/actuation nasal spray Use 1 Jackson in each nostril once daily. CALCIUM ORAL [...] daughter. Denise Bowman LPN documented in this encounterThe Metrohealth System08-02-2022 Miscellaneous Notes* Telephone Encounter - Tammy North [...] in until 10/14/21. She reports she got Ruston ordered from the hospital to take every 6 hours, but daughter doesn't remember the dose. She states the hospital told them to call the PCP for ore pain medication once it ran out. They are asking if you would send a prescription in to [facility] in [place]. Please call and advise. documented in this encounterThe Metrohealth System07-26-2022 Miscellaneous Notes* Telephone Encounter - An Barker [...] of lumbar back completed yesterday at [facility]. Andre is requesting a call back at [phone]. Please review and advise, Guera Roy RN documented in this encounterThe Metrohealth System07-25-2022 Miscellaneous Notes* Telephone Encounter - Guera Roy RN - 09/15/2021 10:06 AM EDT Daughter (Johanna) calls to request referral be sent to Dr. Nowak for pain management to arrange appointment for post hospitalization. Faxed per daughter request to [phone] with note patient currently hospitalized. Guera Roy [...] Andrade. Inna Harris LPN documented in this encounterThe Metrohealth System07-19-2022 Miscellaneous Notes* Telephone Encounter - Stfeanie Crawford Ma - 09/09/2021 12:04 PM EDT [...] Prior Authorization has been completed online at [employer] for Rivastigmine Patch , will await response. [id number] Please keep encounter open until final decision has been received and documented from insurance company. Stefanie Crawford MA documented in this encounterThe Metrohealth System07-18-2022 Miscellaneous Notes* Telephone Encounter - Jennifer Holm LPN - 09/08/2021 12:49 PM EDT Notified daughter via [employer] that office was working on PA. * [...] 11:36 AM EDT PT order sent to [facility] at fax # [phone]. She also reports that the patch the provider ordered for the Pt was declined by her insurance. She states her mom can take the pill and is asking if provider could send that to [facility] for her. documented in this encounterThe Metrohealth System07-14-2022 History of Present illness Narrative* Donnell Dooley MD - 09/04/2021 4:05 PM EDT Patient presents with: Follow Up: 3 month follow up Back Pain: sciatica right leg 1 week HPI: Patient presents today for office visit for follow up. Had some neck soreness a month ago but was put on a medrol per the NETWORK ENGINEER ADMINISTRATOR at her facility and it improved. Now having some issues with her right hip and back on her leg. Hurts to lay down and move. No falls or trauma. No redness or warmth in the leg. Has some mild numbness No issues controlling bowel or bladder. Neuro:will not take aricept. [place] dizzy. Has menier's also. PULM: still wearing [...] (FLONASE) 50 mcg/actuation nasal spray Use 1 Jackson in each nostril once daily. CALCIUM ORAL [...] three months and prn. documented in this encounterThe Metrohealth System06-28-2022 Instructions* Patient Instructions* Danika Helms - 08/19/2021 11:19 AM EDT Use toe spacer or lambs wool to prevent rubbing Follow-up every 4 weeks for callus paring. documented in this encounterThe Metrohealth System06-28-2022 History of Present illness Narrative* Danika Helms [...] (FLONASE) 50 mcg/actuation nasal spray Use 1 Jackson in each nostril once daily. CALCIUM ORAL [...] until after the wedding. documented in this encounterThe Metrohealth System06-13-2022 History of Present illness Narrative* Jane Mcmillan MD - 08/04/2021 11:17 AM EDT PATIENT NAME: Madison Lofton. CLINIC NO: [id number]. ATTENDING PHYSICIAN: Jane Mcmillan MD. 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 Patient [...] Lymph 1.00 - 4.00 k/uL 4.46 (H) Bledsoe% % 5.7 Abs Bledsoe <0.87 k/uL 0.85 Eosin% % 2.7 Abs [...] Cc: Dr. Donnell Dooley documented in this encounterThe Metrohealth System04-13-2022 History of Present illness Narrative* Donnell Dooley [...] and her daughter. They have moved to [place] in October. Has had issues with memory assessments done recently. Did have an issues about six weeks ago where she was not feeling well and was saying strange things. Has had episodes where she is talking about things that did not occur. She has also noted some issues with her memory. 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 Short term memory has [...] Lymph 1.00 - 4.00 k/uL 6.01 (H) Bledsoe% % 0.0 Abs Bledsoe <0.87 k/uL 0.00 Eosin% % 1.0 Abs Eosin <0.46 k/uL 0.13 Baso% % 0.0 Abs Baso <0.11 k/uL 0.00 Platelet Estimate Adequate Red Cell Morph Reviewed Ovalocytes Few RBC Fragments None Seen Few (A) DTYPE Manual Color Yellow Yellow Clarity Clear Clear Glucose, Urine Negative Negative Bilirubin, Urine Negative Negative Ketones, Urine Negative Negative Specific [place], Ur 1.005 - 1.030 1.019 Hemoglobin/Blood,Ur Negative [...] Take 1 tablet by mouth once daily. [id number] ORAL Take by mouth. SYMBICORT 160-4.5 mcg/actuation [...] (FLONASE) 50 mcg/actuation nasal spray Use 1 Jackson in each nostril once daily. CALCIUM ORAL [...] chart. Has a new medical power of assistant county attorney form VITALS: BP 138/82 Pulse 70 [...] three months and prn. documented in this encounterThe Metrohealth System04-04-2022 History of Present illness Narrative* RT Nkechi(R) [...] Routine Brain SIGNATURE: RT Nkechi(R) PATIENT NAME: aMdison Lofton DATE: May 26, 2021 TIME: 3:06 PM documented in this encounterThe [facility]health System03-15-2022 History of Present illness Narrative* Magali Lau [...] 06, 2021 2:55 PM documented in this encounterThe [facility] System03-21-2018 History of Past illness Narrative* Problem Noted Date Resolved Date History of breast cancer in female 05/12/2017 03/24/2018 Epigastric pain 05/11/2016 12/20/2020 Non Hodgkin's lymphoma 1 Overview: About 14 years ago. No XRT, chemotherapy. Watchful waiting. documented as of this encounter (statuses as of 05/26/2021) [facility] History of Past illness Narrative* Problem Noted Date Resolved Date History of breast cancer in female 05/12/2017 03/24/2018 Epigastric pain 05/11/2016 12/20/2020 Non Hodgkin's lymphoma 1 Overview: About 14 years ago. No XRT, chemotherapy. Watchful waiting. documented as of this encounter (statuses as of 05/27/2021) [facility] of Past illness Narrative* Problem Noted Date Resolved Date History of breast cancer in female 05/12/2017 03/24/2018 Epigastric pain 05/11/2016 12/20/2020 Non Hodgkin's lymphoma Overview: About 14 years ago. No XRT, chemotherapy. Watchful waiting. documented as of this encounter (statuses as of 06/04/2021) [address]21-2018 History of Past illness Narrative* Problem Noted Date Resolved Date History of breast cancer in female 05/12/2017 03/24/2018 Epigastric pain 05/11/2016 12/20/2020 documented as of this encounter (statuses as of 08/05/2021) [address]21-2018 History of Past illness Narrative* Problem Noted Date Resolved Date History of breast cancer in female 05/12/2017 03/24/2018 Epigastric pain 05/11/2016 12/20/2020 documented as of this encounter (statuses as of 08/19/2021) [address]21-2018 History of Past illness Narrative* Problem Noted Date Resolved Date History of breast cancer in female 05/12/2017 03/24/2018 Epigastric pain 05/11/2016 12/20/2020 documented as of this encounter (statuses as of 09/04/2021) [address]21-2018 History of Past illness Narrative* Problem Noted Date Resolved Date History of breast cancer in female 05/12/2017 03/24/2018 Epigastric pain 05/11/2016 12/20/2020 documented as of this encounter (statuses as of 09/08/2021) [address]21-2018 History of Past illness Narrative* Problem Noted Date Resolved Date History of breast cancer in female 05/12/2017 03/24/2018 Epigastric pain 05/11/2016 12/20/2020 documented as of this encounter (statuses as of 09/09/2021) [address]21-2018 History of Past illness Narrative* Problem Noted Date Resolved Date History of breast cancer in female 05/12/2017 03/24/2018 Epigastric pain 05/11/2016 12/20/2020 documented as of this encounter (statuses as of 09/15/2021) [address]21-2018 History of Past illness Narrative* Problem Noted Date Resolved Date History of breast cancer in female 05/12/2017 03/24/2018 Epigastric pain 05/11/2016 12/20/2020 documented as of this encounter (statuses as of 09/16/2021) [address]21-2018 History of Past illness Narrative* Problem Noted Date Resolved Date History of breast cancer in female 05/12/2017 03/24/2018 Epigastric pain 05/11/2016 12/20/2020 documented as of this encounter (statuses as of 09/23/2021) [address]21-2018 History of Past illness Narrative* Problem Noted Date Resolved Date History of breast cancer in female 05/12/2017 03/24/2018 Epigastric pain 05/11/2016 12/20/2020 documented as of this encounter (statuses as of 10/09/2021) [address]21-2018 History of Past illness Narrative* Problem Noted Date Resolved Date History of breast cancer in female 05/12/2017 03/24/2018 Epigastric pain 05/11/2016 12/20/2020 documented as of this encounter (statuses as of 10/23/2021) [address]21-2018 History of Past illness Narrative* Problem Noted Date Resolved Date History of breast cancer in female 05/12/2017 03/24/2018 Epigastric pain 05/11/2016 12/20/2020 documented as of this encounter (statuses as of 10/29/2021) [address]21-2018 History of Past illness Narrative* Problem Noted Date Resolved Date History of breast cancer in female 05/12/2017 03/24/2018 Epigastric pain 05/11/2016 12/20/2020 documented as of this encounter (statuses as of 11/06/2021) [address]21-2018 History of Past illness Narrative* Problem Noted Date Resolved Date History of breast cancer in female 05/12/2017 03/24/2018 Epigastric pain 05/11/2016 12/20/2020 documented as of this encounter (statuses as of 11/20/2021) [address]21-2018 History of Past illness Narrative* Problem Noted Date Resolved Date History of breast cancer in female 05/12/2017 03/24/2018 Epigastric pain 05/11/2016 12/20/2020 documented as of this encounter (statuses as of 12/09/2021) [facility] Narrative* Problem Noted Date Resolved Date History of breast cancer in female 05/12/2017 03/24/2018 Epigastric pain 05/11/2016 12/20/2020 documented as of this encounter (statuses as of 12/22/2021) [facility] Narrative* Problem Noted Date Resolved Date History of breast cancer in female 05/12/2017 03/24/2018 Epigastric pain 05/11/2016 12/20/2020 documented as of this encounter (statuses as of 01/27/2022) [address]21-2018 History of Past illness Narrative* Problem Noted Date Resolved Date History of breast cancer in female 05/12/2017 03/24/2018 Epigastric pain 05/11/2016 12/20/2020 documented as of this encounter (statuses as of 03/16/2022) [facility] Narrative* Problem Noted Date Resolved Date History of breast cancer in female 05/12/2017 03/24/2018 Epigastric pain 05/11/2016 12/20/2020 documented as of this encounter (statuses as of 03/16/2022) [facility] Narrative* Problem Noted Date Resolved Date History of breast cancer in female 05/12/2017 03/24/2018 Epigastric pain 05/11/2016 12/20/2020 documented as of this encounter (statuses as of 03/28/2022) [facility] Narrative* Problem Noted Date Resolved Date History of breast cancer in female 05/12/2017 03/24/2018 Epigastric pain 05/11/2016 12/20/2020 documented as of this encounter (statuses as of 04/15/2022) [facility] Narrative* Problem Noted Date Resolved Date History of breast cancer in female 05/12/2017 03/24/2018 Epigastric pain 05/11/2016 12/20/2020 documented as of this encounter (statuses as of 04/30/2022) [address]-2018 History of Past illness Narrative* Problem Noted Date Resolved Date History of breast cancer in female 05/12/2017 03/24/2018 Epigastric pain 05/11/2016 12/20/2020 documented as of this encounter (statuses as of 05/14/2022) [facility] Narrative* Problem Noted Date Resolved Date History of breast cancer in female 05/12/2017 03/24/2018 Epigastric pain 05/11/2016 12/20/2020 documented as of this encounter (statuses as of 05/20/2022) [facility] Narrative* Problem Noted Date Resolved Date History of breast cancer in female 05/12/2017 03/24/2018 Epigastric pain 05/11/2016 12/20/2020 Chronic bronchitis 06/15/2022 Overview: Sees Dr. Antunez at [facility] documented as of this encounter (statuses as of 06/15/2022) [facility] Narrative* Problem Noted Date Resolved Date History of breast cancer in female 05/12/2017 03/24/2018 Epigastric pain 05/11/2016 12/20/2020 Chronic bronchitis 06/15/2022 Overview: Sees Dr. Antunez at [facility] documented as of this encounter (statuses as of 06/18/2022) [facility] Narrative* Problem Noted Date Resolved Date History of breast cancer in female 05/12/2017 03/24/2018 Epigastric pain 05/11/2016 12/20/2020 Chronic bronchitis 06/15/2022 Overview: Sees Dr. Antunez at [facility] documented as of this encounter (statuses as of 06/18/2022) [facility] Narrative* Problem Noted Date Resolved Date History of breast cancer in female 05/12/2017 03/24/2018 Epigastric pain 05/11/2016 12/20/2020 Chronic bronchitis 06/15/2022 Overview: Sees Dr. Antunez at [facility] documented as of this encounter (statuses as of 06/27/2022) [facility] Narrative* Problem Noted Date Resolved Date History of breast cancer in female 05/12/2017 03/24/2018 Epigastric pain 05/11/2016 12/20/2020 Chronic bronchitis 06/15/2022 Overview: Sees Dr. Antunez at [facility] documented as of this encounter (statuses as of 07/23/2022) [facility] Narrative* Problem Noted Date Diagnosed Date Resolved Date History of breast cancer in female 05/12/2017 03/24/2018 Epigastric pain 05/11/2016 12/20/2020 Chronic bronchitis 3 Overview: Sees Dr. Antunez at [facility] documented as of this encounter (statuses as of 09/17/2022) [facility] Narrative* Problem Noted Date Diagnosed Date Resolved Date History of breast cancer in female 05/12/2017 03/24/2018 Epigastric pain 05/11/2016 12/20/2020 Chronic bronchitis 3 Overview: Sees Dr. Antunez at [facility] documented as of this encounter (statuses as of 10/02/2022) [facility] Narrative* Problem Noted Date Diagnosed Date Resolved Date History of breast cancer in female 05/12/2017 03/24/2018 Epigastric pain 05/11/2016 12/20/2020 Chronic bronchitis 3 Overview: Seerohan Antunez at [facility] documented as of this encounter (statuses as of 10/06/2022) [facility] Narrative* Problem Noted Date Diagnosed Date Resolved Date History of breast cancer in female 05/12/2017 03/24/2018 Epigastric pain 05/11/2016 12/20/2020 Chronic bronchitis 3 Overview: Seerohan Antunez at [facility] documented as of this encounter (statuses as of 10/07/2022) [facility] Narrative* Problem Noted Date Diagnosed Date Resolved Date History of breast cancer in female 05/12/2017 03/24/2018 Epigastric pain 05/11/2016 12/20/2020 Chronic bronchitis 3 Overview: Sees Dr. Antunez at [facility] documented as of this encounter (statuses as of 10/07/2022) [facility] Narrative* Problem Noted Date Diagnosed Date Resolved Date History of breast cancer in female 05/12/2017 03/24/2018 Epigastric pain 05/11/2016 12/20/2020 Chronic bronchitis 3 Overview: Sees Dr. Antunez at [facility] documented as of this encounter (statuses as of 10/09/2022) [facility] Narrative* Problem Noted Date Diagnosed Date Resolved Date History of breast cancer in female 05/12/2017 03/24/2018 Epigastric pain 05/11/2016 12/20/2020 Chronic bronchitis 3 Overview: Seerohan Antunez at [facility] documented as of this encounter (statuses as of 10/12/2022) [facility] Narrative* Problem Noted Date Diagnosed Date Resolved Date History of breast cancer in female 05/12/2017 03/24/2018 Epigastric pain 05/11/2016 12/20/2020 Chronic bronchitis 3 Overview: Seerohan Antunez at [facility] documented as of this encounter (statuses as of 10/13/2022) [facility] Narrative* Problem Noted Date Diagnosed Date Resolved Date History of breast cancer in female 05/12/2017 03/24/2018 Epigastric pain 05/11/2016 12/20/2020 Chronic bronchitis 3 Overview: Seerohan Antunez at [facility] documented as of this encounter (statuses as of 10/13/2022) [facility] Narrative* Problem Noted Date Diagnosed Date Resolved Date History of breast cancer in female 05/12/2017 03/24/2018 Epigastric pain 05/11/2016 12/20/2020 Chronic bronchitis 3 Overview: Seerohan Antunez at [facility] documented as of this encounter (statuses as of 10/20/2022) [facility] Narrative* Problem Noted Date Diagnosed Date Resolved Date History of breast cancer in female 05/12/2017 03/24/2018 Epigastric pain 05/11/2016 12/20/2020 Chronic bronchitis 3 Overview: Sees Dr. Antunez at [facility] documented as of this encounter (statuses as of 10/22/2022) [facility] Narrative* Problem Noted Date Diagnosed Date Resolved Date History of breast cancer in female 05/12/2017 03/24/2018 Epigastric pain 05/11/2016 12/20/2020 Chronic bronchitis 3 Overview: Seerohan Antunez at [facility] documented as of this encounter (statuses as of 10/29/2022) [facility] Narrative* Problem Noted Date Diagnosed Date Resolved Date History of breast cancer in female 05/12/2017 03/24/2018 Epigastric pain 05/11/2016 12/20/2020 Chronic bronchitis 3 Overview: Seerohan Antunez at [facility] documented as of this encounter (statuses as of 11/16/2022) [facility] Narrative* Problem Noted Date Diagnosed Date Resolved Date History of breast cancer in female 05/12/2017 03/24/2018 Epigastric pain 05/11/2016 12/20/2020 Chronic bronchitis 3 Overview: Seerohan Antunez at [facility] documented as of this encounter (statuses as of 12/04/2022) [facility] Narrative* Problem Noted Date Diagnosed Date Resolved Date History of breast cancer in female 05/12/2017 03/24/2018 Epigastric pain 05/11/2016 12/20/2020 Chronic bronchitis 3 Overview: Sees Dr. Antunez at [facility] documented as of this encounter (statuses as of 12/09/2022) [facility] Narrative* Problem Noted Date Diagnosed Date Resolved Date History of breast cancer in female 05/12/2017 03/24/2018 Epigastric pain 05/11/2016 12/20/2020 Chronic bronchitis 3 Overview: Sees Dr. Antunez at [facility] documented as of this encounter (statuses as of 12/11/2022) [facility]* Diagnosis Thrush- Primary Candidiasis of mouth documented in this encounter [facility]* Diagnosis Brain mass Unspecified condition of brain Meningioma (HCC) Benign neoplasm of cerebral meninges documented in this encounter [facility]* Diagnosis Hypokalemia- Primary Hypopotassemia Mild cognitive impairment Mild cognitive impairment, so stated Meningioma (HCC) Benign neoplasm of cerebral meninges Pulmonary emphysema, unspecified emphysema type (HCC) Personal history of CLL (chronic lymphocytic leukemia) Personal history of lymphoid leukemia [facility] History of breast cancer- Primary Personal history of malignant neoplasm of breast Small B-cell lymphoma, unspecified body region (HCC) Meningioma (HCC) Benign neoplasm of cerebral meninges [facility] Diagnosis Hallux valgus of right foot- Primary Callus of foot Corns and callosities [facility] Diagnosis Mild cognitive disorder- Primary Unspecified persistent mental disorders due to conditions classified elsewhere Pulmonary emphysema, unspecified emphysema type (HCC) Sciatica, right side History of breast cancer Personal history of malignant neoplasm of breast Personal history of CLL (chronic lymphocytic leukemia) Personal history of lymphoid leukemia [facility] Diagnosis Mild cognitive impairment- Primary Mild cognitive impairment, so stated documented [facility] this encounter [facility]* Diagnosis Onset Date Resolution Status Constipation acute Gastritis acute Hx of small bowel obstruction acute Thrush acute Chronic respiratory failure with hypoxia chronic COPD (chronic obstructive pulmonary disease) [facility] Work Phone: Evaluation note* Diagnosis Acute midline low back pain without sciatica- Primary [facility] Diagnosis DDD (degenerative disc disease), lumbar- Primary Degeneration of lumbar or lumbosacral intervertebral disc [facility] Diagnosis Hallux valgus of right foot- Primary Callus of foot Corns and callosities Onychomycosis Dermatophytosis of nail [facility] Diagnosis Decreased strength- Primary Muscle weakness (generalized) Unsteady gait Abnormality of gait Balance problem Other symptoms involving nervous and musculoskeletal systems [facility] Callus of foot- Primary Corns and callosities Hallux valgus of right foot [facility] Diagnosis Mild cognitive impairment- Primary Mild cognitive impairment, so stated Encounter for immunization Need for other specified prophylactic vaccination against single bacterial disease Meningioma (HCC) Benign neoplasm of cerebral meninges Mitral valve insufficiency, unspecified etiology Pulmonary emphysema, unspecified emphysema type (HCC) Small B-cell lymphoma, unspecified body region (HCC) [facility] Diagnosis Callus of foot- Primary Corns and callosities Hallux valgus of right foot Onychomycosis Dermatophytosis of nail Pain in toe of left foot Pain in limb [facility] Diagnosis Hallux valgus of right foot- Primary Ulcer of toe of right foot, limited to breakdown of skin (HCC) [facility] Diagnosis Acute cough- Primary Rhinosinusitis Unspecified sinusitis (chronic) [facility] Diagnosis Hallux valgus of right foot- Primary Callus of foot Corns and callosities Ulcer of toe of right foot, limited to breakdown of skin (HCC) [facility] Diagnosis Onset Date Resolution Status Chronic respiratory failure with hypoxia chronic COPD (chronic obstructive pulmonary disease) [facility] Work Phone: Evaluation note* Diagnosis Onychomycosis- Primary Dermatophytosis of nail Hallux valgus of right foot Callus of foot Corns and callosities [facility]* Diagnosis Open wound of toe, [...] unspecified type- Primary [facility] Diagnosis Mild cognitive impairment- Primary [...] unspecified, unspecified cause [facility]* Diagnosis Small B-cell lymphoma, unspecified body region (HCC) [facility]* Diagnosis Cellulitis of skin Cellulitis and abscess of unspecified site Left ankle swelling Effusion of ankle and foot joint Discoloration of skin of lower leg Dyschromia, unspecified Acute left ankle pain Blister of left lower extremity, initial encounter Localized edema Edema [facility]* Diagnosis Cellulitis of skin- Primary Cellulitis and abscess of unspecified site Left ankle swelling Effusion of ankle and foot joint Discoloration of skin of lower leg Dyschromia, unspecified Acute left ankle pain Blister of left lower extremity, initial encounter Localized edema Edema [facility]* Diagnosis Cellulitis of skin- Primary Cellulitis and abscess of unspecified site Left ankle swelling Effusion of ankle and foot joint Discoloration of skin of lower leg Dyschromia, unspecified Acute left ankle pain Blister of left lower extremity, initial encounter [facility]* Diagnosis Venous stasis ulcer of left lower leg with edema of left lower leg (HCC) (HCC)- Primary [facility]* Diagnosis Venous stasis ulcer of other part of lower leg limited to breakdown of skin, unspecified laterality, unspecified whether varicose veins present (HCC)- Primary documented in this encounter [facility] note* Diagnosis Mixed hyperlipidemia- Primary [...] of skin (HCC) [facility] Diagnosis Pelvic pain- Primary UTI symptoms Other symptoms involving urinary system [facility]* Diagnosis Pelvic pain [facility]* Diagnosis Eye pain, bilateral- Primary [facility]* Diagnosis Urinary frequency- Primary [facility]* Diagnosis Acute cough Pre-operative examination- [...] unspecified, unspecified cause [facility]* Diagnosis Sciatica, right side Pre-operative [...] unspecified, unspecified cause [facility]* Diagnosis Mild cognitive impairment Mild [...] unspecified, unspecified cause [facility]* Diagnosis Pre-operative examination- Primary Preoperative [...] body region (HCC) documented in this encounter [facility] note* Diagnosis Pre-operative examination- Primary [...] fracture Senile osteoporosis documented in this encounter [facility] note* Diagnosis Pre-operative examination- Primary [...] involving cardiovascular system [facility] Diagnosis Pre-operative examination- Primary Preoperative examination, [...] Bacterial pneumonia, unspecified [facility] Additional Instructions Continue to use ice 20 minutes on, 20 minutes off. Follow-up with your orthopedic surgeon. Another orthopedic surgeon name and number has been given to you as discussed for a second option for left shoulder pain. You can take Tylenol with Mobic daily as [facility] Work Phone: Reason for referral (narrative)* Diagnostic Procedure Only (Routine) - Closed Specialty Diagnoses / Procedures Referred By Contac t Referred To Contact XR IMAGING Diagnoses Sciatica, right side Procedures XR LUMBAR GENERAL 3V AP/LAT/L5-S1 RADEX SPINE LUMBOSACRAL 2/3 VIEWS Donnell Dooley MD [address] [place] [address] Xr Imaging Referral ID Status Reason Start Date Expiration Date V isits Requested Visits Authorized [id number] Closed Auto-Generate d Referral 09/04/2021 10/04/2022 1 1 [facility] for referral (narrative)* Diagnostic Procedure Only (Routine) - Closed Specialty Diagnoses / Procedures Referred By Contac t Referred To Contact XR IMAGING Diagnoses Callus of foot Procedures XR FOOT GENERAL 3V AP/LAT/OBL RIGHT RADEX FOOT COMPLETE MINIMUM 3 VIEWS Danika Helms [address] [place] [address] [place] [address] Referral ID Status Reason Start Date Expiration Date V isits Requested Visits Authorized [id number] Closed Auto-Generate d Referral 10/06/2022 11/05/2023 1 1 [facility] for referral (narrative)* Diagnostic Procedure Only (Urgent) - Closed Specialty Diagnoses / Procedures Referred By Contac t Referred To Contact US IMAGING Diagnoses Cellulitis of skin Left ankle swelling Discoloration of skin of lower leg Acute left ankle pain Blister of left lower extremity, initial encounter Localized edema Procedures US DVT LOWER LEFT DUP-SCAN XTR VEINS UNILATERAL/LIMITED STUDY Dallas Calabrese APRN.PART TIME FLEXIBLE CLERK [address] [place] [address] [place] [address] Referral ID Status Reason Start Date Expiration Date V isits Requested Visits Authorized [id number] Closed Auto-Generate d Referral 04/02/2023 05/01/2024 1 1 [facility] for referral (narrative)* Diagnostic Procedure Only (Urgent) - Closed Specialty Diagnoses / Procedures Referred By Contac t Referred To Contact US IMAGING Diagnoses Cellulitis of skin Left ankle swelling Discoloration of skin of lower leg Acute left ankle pain Blister of left lower extremity, initial encounter Localized edema Procedures US DVT LOWER LEFT DUP-SCAN XTR VEINS UNILATERAL/LIMITED STUDY Dallas Calabrese APRN.PART TIME FLEXIBLE CLERK [address] [place] [address] Us Imaging [facility] Referral ID Status Reason Start Date Expiration Date V isits Requested Visits Authorized [id number] Closed Auto-Generate d Referral 04/02/2023 05/01/2024 1 [...] DUP-SCAN XTR VEINS UNILATERAL/LIMITED STUDY Dallas Calabrese APRN.PART TIME FLEXIBLE CLERK [address] [place] [address] [facility] [address] [place] [id number] Referral ID Status Reason Start Date Expiration Date Visits Requested Visits Authorized [id number] Pending Review Auto-Generat ed Referral 04/02/2023 04/01/2024 1 1 [facility] for referral (narrative)* Diagnostic Procedure Only (Routine) - Pending Review Specialty Diagnoses / Procedures Referred By Contac t Referred To Contact US IMAGING Diagnoses Urinary frequency Procedures US KIDNEY/BLADDER US RETROPERITONEAL REAL TIME W/IMAGE COMPLETE Morelia Hewitt APRN.PART TIME FLEXIBLE CLERK [address] [place] [address] Us Imaging [facility] Referral ID Status Reason Start Date Expiration Date Visits Requested Visits Authorized [id number] Pending Review Auto-Generat ed Referral 08/17/2023 09/15/2024 1 1 [facility] for referral (narrative)* Diagnostic Procedure Only (Routine) - Closed Specialty Diagnoses / Procedures Referred By Contac t Referred To Contact XR IMAGING Diagnoses Sciatica, right side Procedures XR LUMBAR GENERAL 3V AP/LAT/L5-S1 RADEX SPINE LUMBOSACRAL 2/3 VIEWS Soumya, Donnell J, MD [address] [place] [address] [place] [address] Referral ID Status Reason Start Date Expiration Date V isits Requested Visits Authorized [id number] Closed Auto-Generate d Referral 09/04/2021 10/04/2022 1 1 [facility] for referral (narrative)* Outpatient Procedure (Routine) - Authorized Specialty Diagnoses / Procedures Referred By Contac t Referred To Contact [facility] Diagnoses Onychomycosis Diminished pulses in lower extremity Procedures PVR ANK PRESS [facility] NON-INVAS PHYSIOLOGIC STD EXTREMITY ART 2 LEVEL Danika Helms [address] [address] [facility] [address] [place] [id number] Referral ID Status Reason Start Date Expiration Date Visits Requested Visits Authorized [id number] Authorized Auto-Generat ed Referral 02/28/2024 02/27/2025 1 1 [facility] for referral (narrative)No reason for referral [facility] Reason for visit Narrative* Diagnostic Procedure Only (Urgent) - Closed Specialty Diagnoses / Procedures Referred By Contac t Referred To Contact US IMAGING Diagnoses Cellulitis of skin Left ankle swelling Discoloration of skin of lower leg Acute left ankle pain Blister of left lower extremity, initial encounter Localized edema Procedures US DVT LOWER LEFT DUP-SCAN XTR VEINS UNILATERAL/LIMITED STUDY Dallas Calabrese, RADHA.PART TIME FLEXIBLE CLERK [address] [place] [address] [place] [address] Referral ID Status Reason Start Date Expiration Date V isits Requested Visits Authorized [id number] Closed Auto-Generate d Referral 04/02/2023 05/01/2024 1 1 [facility] for visit Narrative* Diagnostic Procedure Only (Routine) - Closed Specialty Diagnoses / Procedures Referred By Contac t Referred To Contact XR IMAGING Diagnoses Sciatica, right side Procedures XR LUMBAR GENERAL 3V AP/LAT/L5-S1 RADEX SPINE LUMBOSACRAL 2/3 VIEWS Donnell Dooley MD [address] [place] [address] [place] [address] Referral ID Status Reason Start Date Expiration Date V isits Requested Visits Authorized [id number] Closed Auto-Generate d Referral 09/04/2021 10/04/2022 1 1 [facility] Advance Directives Documents on File Type Date Recorded Patient Remanufacturing Technician Expl anation Advance Directive(s) 08/17/2017 6:17 AM Documents on File Type Date Recorded Patient Remanufacturing Technician Expl anation Advance Directive(s) 08/17/2017 6:17 AM Advance Directive Response Recorded Date/ Time Name of Medical Power of Clay Shop Supervisor September 12, 2021 12:09pm Living Will Yes September 12, 2021 12:09pm Power of Clay Shop Supervisor Yes September 12 12:09pm Advance Directive Response Recorded Date/ Time Name of Medical Power of Clay Shop Supervisor Johanna Salas April 15, 2022 3:45pm Living Will Yes April 15 023 3:45pm Power of Clay Shop Supervisor Yes April 15, 2022 3:45pm Advance Directive Response Recorded Date/ Time Name of Medical Power of Clay Shop Supervisor johanna salas- daughter November 18, 2022 10:41am Name of Medical Power of Clay Shop Supervisor . December 04, 2022 1:36pm Living Will Yes December 04 1:36pm Power of Clay Shop Supervisor Yes December 04, 2022 1:36pm Advance Directive Response Recorded Date/ Time Do you have a Healthcare Power of Clay Shop Supervisor? Yes August 22, 2024 5:08pm Reason for Referral Specialty Diagnoses / Procedures Referred By Luis Fernando larkin Referred To Contact MR IMAGING Diagnoses Brain mass Meningioma (HCC) Procedures MRI BRAIN WO/W IVCON MRI BRAIN BRAIN STEM W/O W/CONTRAST MATERIAL Donnell Dooley MD [address] [place] [address] Mr Imaging Referral ID Status Reason Start Date Expiration Date V isits Requested Visits Authorized [id number] Closed Auto-Generate d Referral 05/06/2021 06/05/2022 1 1 Specialty Diagnoses / Procedures Referred By Contac t Referred To Contact Pain Management Diagnoses Acute midline low back pain without sciatica Procedures CONSULT TO PAIN MGT OFFICE/OUTPATIENT [facility] MDM 60-74 MINUTES Donnell Dooley MD [address] [place] [address] Referral ID Status Reason Start Date Expiration Date Visits Requested Visits Authorized [id number] Authorized PCP Requested Referral 09/12/2021 09/12/2022 1 1 Specialty Diagnoses / Procedures Referred By Contac t Referred To Contact [facility] Diagnoses Decreased strength Unsteady gait Balance problem Procedures CONSULT TO PHYSICAL THERAPY PHYSICAL THERAPY [facility] COM[facility]X 45 MINS Donnell Dooley MD [address] [place] [address] [facility] [address] [place] [address] Referral ID Status Reason Start Date Expiration Date Visits Requested Visits Authorized [id number] Authorized PCP Requested Referral Auto-Generate d Referral 10/29/2021 10/29/2022 99 99 Specialty Diagnoses / Procedures Referred By Contac t Referred To Contact Hematology Diagnoses Small B-cell lymphoma, unspecified body region (HCC) Procedures CONSULT TO HEMATOLOGY OFFICE/OUTPATIENT [facility] MDM 60-74 MINUTES Donnell Dooley MD [address] [place] [address] Referral ID Status Reason Start Date Expiration Date Visits Requested Visits Authorized [id number] Authorized PCP Requested Referral 12/23/2022 12/23/2023 1 1 Specialty Diagnoses / Procedures Referred By Contac t Referred To Contact CT IMAGING Diagnoses Pelvic pain Procedures CT ABD/PEL WO IVCON CT ABD & PELVIS W/O CONTRAST Morelia Hewitt, RELIABILITY TECHNOLOGIST.PART TIME FLEXIBLE CLERK [address] [place] [address] [place] [address] Referral ID Status Reason Start Date Expiration Date Visits Requested Visits Authorized [id number] Authorized Auto-Generat ed Referral 08/04/2023 09/02/2024 1 [...] or prosecute any alcohol or drug abuse patient.[facility] the event this information is protected by the Federal Confidentiality of Alcohol and Drug Abuse Patient Records regulations: The Federal rules restrict any use of the information to criminally investigate or prosecute any alcohol or drug abuse patient.[facility] the event this information is protected by the Federal Confidentiality of Alcohol and Drug Abuse Patient Records regulations: The Federal rules restrict any use of the information to criminally investigate or prosecute any alcohol or drug abuse patient.[facility] the event this information is protected by the Federal Confidentiality of Alcohol and Drug Abuse Patient Records regulations: The Federal rules restrict any use of the information to criminally investigate or prosecute any alcohol or drug abuse patient.[facility] the event this information is protected by the Federal Confidentiality of Alcohol and Drug Abuse Patient Records regulations: The Federal rules restrict any use of the information to criminally investigate or prosecute any alcohol or drug abuse patient.[facility] the event this information is protected by the Federal Confidentiality of Alcohol and Drug Abuse Patient Records regulations: The Federal rules restrict any use of the information to criminally investigate or prosecute any alcohol or drug abuse patient.[facility] event this information is protected by the Federal Confidentiality of Alcohol and Drug Abuse Patient Records regulations: The Federal rules restrict any use of the information to criminally investigate or prosecute any alcohol or drug abuse patient.[facility] the event this information is protected by the Federal Confidentiality of Alcohol and Drug Abuse Patient Records regulations: The Federal rules restrict any use of the information to criminally investigate or prosecute any alcohol or drug abuse patient.[facility] the event this information is protected by the Federal Confidentiality of Alcohol and Drug Abuse Patient Records regulations: The Federal rules restrict any use of the information to criminally investigate or prosecute any alcohol or drug abuse patient.[facility] the event this information is protected by the Federal Confidentiality of Alcohol and Drug Abuse Patient Records regulations: The Federal rules restrict any use of the information to criminally investigate or prosecute any alcohol or drug abuse patient.[facility] the event this information is protected by the Federal Confidentiality of Alcohol and Drug Abuse Patient Records regulations: The Federal rules restrict any use of the information to criminally investigate or prosecute any alcohol or drug abuse patient.[facility] the event this information is protected by the Federal Confidentiality of Alcohol and Drug Abuse Patient Records regulations: The Federal rules restrict any use of the information to criminally investigate or prosecute any alcohol or drug abuse patient.[facility] the event this information is protected by the Federal Confidentiality of Alcohol and Drug Abuse Patient Records regulations: The Federal rules restrict any use of the information to criminally investigate or prosecute any alcohol or drug abuse patient.[facility] the event this information is protected by the Federal Confidentiality of Alcohol and Drug Abuse Patient Records regulations: The Federal rules restrict any use of the information to criminally investigate or prosecute any alcohol or drug abuse patient.[facility] the event this information is protected by the Federal Confidentiality of Alcohol and Drug Abuse Patient Records regulations: The Federal rules restrict any use of the information to criminally investigate or prosecute any alcohol or drug abuse patient.[facility] the event this information is protected by the Federal Confidentiality of Alcohol and Drug Abuse Patient Records regulations: The Federal rules restrict any use of the information to criminally investigate or prosecute any alcohol or drug abuse patient.[facility] the event this information is protected by the Federal Confidentiality of Alcohol and Drug Abuse Patient Records regulations: The Federal rules restrict any use of the information to criminally investigate or prosecute any alcohol or drug abuse patient.[facility] the event this information is protected by the Federal Confidentiality of Alcohol and Drug Abuse Patient Records regulations: The Federal rules restrict any use of the information to criminally investigate or prosecute any alcohol or drug abuse patient.[facility] the event this information is protected by the Federal Confidentiality of Alcohol and Drug Abuse Patient Records regulations: The Federal rules restrict any use of the information to criminally investigate or prosecute any alcohol or drug abuse patient.[facility] the event this information is protected by the Federal Confidentiality of Alcohol and Drug Abuse Patient Records regulations: The Federal rules restrict any use of the information to criminally investigate or prosecute any alcohol or drug abuse patient.[facility] the event this information is protected by the Federal Confidentiality of Alcohol and Drug Abuse Patient Records regulations: The Federal rules restrict any use of the information to criminally investigate or prosecute any alcohol or drug abuse patient.[facility] the event this information is protected by the Federal Confidentiality of Alcohol and Drug Abuse Patient Records regulations: The Federal rules restrict any use of the information to criminally investigate or prosecute any alcohol or drug abuse patient.[facility] the event this information is protected by the Federal Confidentiality of Alcohol and Drug Abuse Patient Records regulations: The Federal rules restrict any use of the information to criminally investigate or prosecute any alcohol or drug abuse patient.[facility] the event this information is protected by the Federal Confidentiality of Alcohol and Drug Abuse Patient Records regulations: The Federal rules restrict any use of the information to criminally investigate or prosecute any alcohol or drug abuse patient.[facility] the event this information is protected by the Federal Confidentiality of Alcohol and Drug Abuse Patient Records regulations: The Federal rules restrict any use of the information to criminally investigate or prosecute any alcohol or drug abuse patient.[facility] the event this information is protected by the Federal Confidentiality of Alcohol and Drug Abuse Patient Records regulations: The Federal rules restrict any use of the information to criminally investigate or prosecute any alcohol or drug abuse patient.[facility] the event this information is protected by the Federal Confidentiality of Alcohol and Drug Abuse Patient Records regulations: The Federal rules restrict any use of the information to criminally investigate or prosecute any alcohol or drug abuse patient.[facility] the event this information is protected by the Federal Confidentiality of Alcohol and Drug Abuse Patient Records regulations: The Federal rules restrict any use of the information to criminally investigate or prosecute any alcohol or drug abuse patient.[facility] the event this information is protected by the Federal Confidentiality of Alcohol and Drug Abuse Patient Records regulations: The Federal rules restrict any use of the information to criminally investigate or prosecute any alcohol or drug abuse patient.[facility] the event this information is protected by the Federal Confidentiality of Alcohol and Drug Abuse Patient Records regulations: The Federal rules restrict any use of the information to criminally investigate or prosecute any alcohol or drug abuse patient.[facility] the event this information is protected by the Federal Confidentiality of Alcohol and Drug Abuse Patient Records regulations: The Federal rules restrict any use of the information to criminally investigate or prosecute any alcohol or drug abuse patient.[facility] the event this information is protected by the Federal Confidentiality of Alcohol and Drug Abuse Patient Records regulations: The Federal rules restrict any use of the information to criminally investigate or prosecute any alcohol or drug abuse patient.[facility] SystemIn the event this information is protected by the Federal Confidentiality of Alcohol and Drug Abuse Patient Records regulations: The Federal rules restrict any use of the information to criminally investigate or prosecute any alcohol or drug abuse patient.[facility] SystemIn the event this information is protected by the Federal Confidentiality of Alcohol and Drug Abuse Patient Records regulations: The Federal rules restrict any use of the information to criminally investigate or prosecute any alcohol or drug abuse patient.[facility] SystemIn the event this information is protected by the Federal Confidentiality of Alcohol and Drug Abuse Patient Records regulations: The Federal rules restrict any use of the information to criminally investigate or prosecute any alcohol or drug abuse patient.[facility] SystemIn the event this information is protected by the Federal Confidentiality of Alcohol and Drug Abuse Patient Records regulations: The Federal rules restrict any use of the information to criminally investigate or prosecute any alcohol or drug abuse patient.[facility] SystemIn the event this information is protected by the Federal Confidentiality of Alcohol and Drug Abuse Patient Records regulations: The Federal rules restrict any use of the information to criminally investigate or prosecute any alcohol or drug abuse patient.[facility] SystemIn the event this information is protected by the Federal Confidentiality of Alcohol and Drug Abuse Patient Records regulations: The Federal rules restrict any use of the information to criminally investigate or prosecute any alcohol or drug abuse patient.[facility] the event this information is protected by the Federal Confidentiality of Alcohol and Drug Abuse Patient Records regulations: The Federal rules restrict any use of the information to criminally investigate or prosecute any alcohol or drug abuse patient.[facility] SystemIn the event this information is protected by the Federal Confidentiality of Alcohol and Drug Abuse Patient Records regulations: The Federal rules restrict any use of the information to criminally investigate or prosecute any alcohol or drug abuse patient.[facility] SystemIn the event this information is protected by [...] or prosecute any alcohol or drug abuse patient.[facility] SystemIn the event this information is protected by the Federal Confidentiality of Alcohol and Drug Abuse Patient Records regulations: The Federal rules restrict any use of the information to criminally investigate or prosecute any alcohol or drug abuse patient.[facility] SystemIn the event this information is protected by the Federal Confidentiality of Alcohol and Drug Abuse Patient Records regulations: The Federal rules restrict any use of the information to criminally investigate or prosecute any alcohol or drug abuse patient.[facility] SystemIn the event this information is protected by the Federal Confidentiality of Alcohol and Drug Abuse Patient Records regulations: The Federal rules restrict any use of the information to criminally investigate or prosecute any alcohol or drug abuse patient.[facility] SystemIn the event this information is protected by the Federal Confidentiality of Alcohol and Drug Abuse Patient Records regulations: The Federal rules restrict any use of the information to criminally investigate or prosecute any alcohol or drug abuse patient.[facility] SystemIn the event this information is protected by the Federal Confidentiality of Alcohol and Drug Abuse Patient Records regulations: The Federal rules restrict any use of the information to criminally investigate or prosecute any alcohol or drug abuse patient.[facility] SystemIn the event this information is protected by the Federal Confidentiality of Alcohol and Drug Abuse Patient Records regulations: The Federal rules restrict any use of the information to criminally investigate or prosecute any alcohol or drug abuse patient.[facility] SystemIn the event this information is protected by the Federal Confidentiality of Alcohol and Drug Abuse Patient Records regulations: The Federal rules restrict any use of the information to criminally investigate or prosecute any alcohol or drug abuse patient.[facility] SystemIn the event this information is protected by the Federal Confidentiality of Alcohol and Drug Abuse Patient Records regulations: The Federal rules restrict any use of the information to criminally investigate or prosecute any alcohol or drug abuse patient.[facility] SystemIn the event this information is protected by the Federal Confidentiality of Alcohol and Drug Abuse Patient Records regulations: The Federal rules restrict any use of the information to criminally investigate or prosecute any alcohol or drug abuse patient.[facility] SystemIn the event this information is protected by the Federal Confidentiality of Alcohol and Drug Abuse Patient Records regulations: The Federal rules restrict any use of the information to criminally investigate or prosecute any alcohol or drug abuse patient.[facility] SystemIn the event this information is protected by the Federal Confidentiality of Alcohol and Drug Abuse Patient Records regulations: The Federal rules restrict any use of the information to criminally investigate or prosecute any alcohol or drug abuse patient.[facility] SystemIn the event this information is protected by the Federal Confidentiality of Alcohol and Drug Abuse Patient Records regulations: The Federal rules restrict any use of the information to criminally investigate or prosecute any alcohol or drug abuse patient.[facility] SystemIn the event this information is protected by the Federal Confidentiality of Alcohol and Drug Abuse Patient Records regulations: The Federal rules restrict any use of the information to criminally investigate or prosecute any alcohol or drug abuse patient.[facility] SystemIn the event this information is protected by the Federal Confidentiality of Alcohol and Drug Abuse Patient Records regulations: The Federal rules restrict any use of the information to criminally investigate or prosecute any alcohol or drug abuse patient.[facility] SystemIn the event this information is protected by the Federal Confidentiality of Alcohol and Drug Abuse Patient Records regulations: The Federal rules restrict any use of the information to criminally investigate or prosecute any alcohol or drug abuse patient.[facility] SystemIn the event this information is protected by the Federal Confidentiality of Alcohol and Drug Abuse Patient Records regulations: The Federal rules restrict any use of the information to criminally investigate or prosecute any alcohol or drug abuse patient.[facility] SystemIn the event this information is protected by the Federal Confidentiality of Alcohol and Drug Abuse Patient Records regulations: The Federal rules restrict any use of the information to criminally investigate or prosecute any alcohol or drug abuse patient.[facility] SystemIn the event this information is protected by the Federal Confidentiality of Alcohol and Drug Abuse Patient Records regulations: The Federal rules restrict any use of the information to criminally investigate or prosecute any alcohol or drug abuse patient.[facility] SystemIn the event this information is protected by the Federal Confidentiality of Alcohol and Drug Abuse Patient Records regulations: The Federal rules restrict any use of the information to criminally investigate or prosecute any alcohol or drug abuse patient.[facility] SystemIn the event this information is protected by the Federal Confidentiality of Alcohol and Drug Abuse Patient Records regulations: The Federal rules restrict any use of the information to criminally investigate or prosecute any alcohol or drug abuse patient.[facility] SystemIn the event this information is protected by the Federal Confidentiality of Alcohol and Drug Abuse Patient Records regulations: The Federal rules restrict any use of the information to criminally investigate or prosecute any alcohol or drug abuse patient.[facility] SystemIn the event this information is protected by the Federal Confidentiality of Alcohol and Drug Abuse Patient Records regulations: The Federal rules restrict any use of the information to criminally investigate or prosecute any alcohol or drug abuse patient.[facility] SystemIn the event this information is protected by the Federal Confidentiality of Alcohol and Drug Abuse Patient Records regulations: The Federal rules restrict any use of the information to criminally investigate or prosecute any alcohol or drug abuse patient.[facility] SystemIn the event this information is protected by the Federal Confidentiality of Alcohol and Drug Abuse Patient Records regulations: The Federal rules restrict any use of the information to criminally investigate or prosecute any alcohol or drug abuse patient.[facility] SystemIn the event this information is protected by the Federal Confidentiality of Alcohol and Drug Abuse Patient Records regulations: The Federal rules restrict any use of the information to criminally investigate or prosecute any alcohol or drug abuse patient.[facility] SystemIn the event this information is protected by the Federal Confidentiality of Alcohol and Drug Abuse Patient Records regulations: The Federal rules restrict any use of the information to criminally investigate or prosecute any alcohol or drug abuse patient.[facility] SystemIn the event this information is protected by the Federal Confidentiality of Alcohol and Drug Abuse Patient Records regulations: The Federal rules restrict any use of the information to criminally investigate or prosecute any alcohol or drug abuse patient.[facility] SystemIn the event this information is protected by the Federal Confidentiality of Alcohol and Drug Abuse Patient Records regulations: The Federal rules restrict any use of the information to criminally investigate or prosecute any alcohol or drug abuse patient.[facility] SystemIn the event this information is protected by the Federal Confidentiality of Alcohol and Drug Abuse Patient Records regulations: The Federal rules restrict any use of the information to criminally investigate or prosecute any alcohol or drug abuse patient.[facility] SystemIn the event this information is protected by the Federal Confidentiality of Alcohol and Drug Abuse Patient Records regulations: The Federal rules restrict any use of the information to criminally investigate or prosecute any alcohol or drug abuse patient.[facility] SystemIn the event this information is protected by the Federal Confidentiality of Alcohol and Drug Abuse Patient Records regulations: The Federal rules restrict any use of the information to criminally investigate or prosecute any alcohol or drug abuse patient.[facility] SystemIn the event this information is protected by the Federal Confidentiality of Alcohol and Drug Abuse Patient Records regulations: The Federal rules restrict any use of the information to criminally investigate or prosecute any alcohol or drug abuse patient.[facility] SystemIn the event this information is protected by the Federal Confidentiality of Alcohol and Drug Abuse Patient Records regulations: The Federal rules restrict any use of the information to criminally investigate or prosecute any alcohol or drug abuse patient.[facility] SystemIn the event this information is protected by the Federal Confidentiality of Alcohol and Drug Abuse Patient Records regulations: The Federal rules restrict any use of the information to criminally investigate or prosecute any alcohol or drug abuse patient.[facility] SystemIn the event this information is protected by the Federal Confidentiality of Alcohol and Drug Abuse Patient Records regulations: The Federal rules restrict any use of the information to criminally investigate or prosecute any alcohol or drug abuse patient.[facility] SystemIn the event this information is protected by the Federal Confidentiality of Alcohol and Drug Abuse Patient Records regulations: The Federal rules restrict any use of the information to criminally investigate or prosecute any alcohol or drug abuse patient.[facility] SystemIn the event this information is protected by the Federal Confidentiality of Alcohol and Drug Abuse Patient Records regulations: The Federal rules restrict any use of the information to criminally investigate or prosecute any alcohol or drug abuse patient.[facility] SystemIn the event this information is protected by the Federal Confidentiality of Alcohol and Drug Abuse Patient Records regulations: The Federal rules restrict any use of the information to criminally investigate or prosecute any alcohol or drug abuse patient.[facility] SystemIn the event this information is protected by the Federal Confidentiality of Alcohol and Drug Abuse Patient Records regulations: The Federal rules restrict any use of the information to criminally investigate or prosecute any alcohol or drug abuse patient.[facility] SystemIn the event this information is protected by the Federal Confidentiality of Alcohol and Drug Abuse Patient Records regulations: The Federal rules restrict any use of the information to criminally investigate or prosecute any alcohol or drug abuse patient.[facility] SystemIn the event this information is protected by the Federal Confidentiality of Alcohol and Drug Abuse Patient Records regulations: The Federal rules restrict any use of the information to criminally investigate or prosecute any alcohol or drug abuse patient.[facility] SystemIn the event this information is protected by the Federal Confidentiality of Alcohol and Drug Abuse Patient Records regulations: The Federal rules restrict any use of the information to criminally investigate or prosecute any alcohol or drug abuse patient.[facility] SystemIn the event this information is protected by the Federal Confidentiality of Alcohol and Drug Abuse Patient Records regulations: The Federal rules restrict any use of the information to criminally investigate or prosecute any alcohol or drug abuse patient.[facility] SystemIn the event this information is protected by the Federal Confidentiality of Alcohol and Drug Abuse Patient Records regulations: The Federal rules restrict any use of the information to criminally investigate or prosecute any alcohol or drug abuse patient.[facility] SystemIn the event this information is protected by the Federal Confidentiality of Alcohol and Drug Abuse Patient Records regulations: The Federal rules restrict any use of the information to criminally investigate or prosecute any alcohol or drug abuse patient.[facility] SystemIn the event this information is protected by the Federal Confidentiality of Alcohol and Drug Abuse Patient Records regulations: The Federal rules restrict any use of the information to criminally investigate or prosecute any alcohol or drug abuse patient.[facility] SystemIn the event this information is protected by the Federal Confidentiality of Alcohol and Drug Abuse Patient Records regulations: The Federal rules restrict any use of the information to criminally investigate or prosecute any alcohol or drug abuse patient.[facility] SystemIn the event this information is protected by the Federal Confidentiality of Alcohol and Drug Abuse Patient Records regulations: The Federal rules restrict any use of the information to criminally investigate or prosecute any alcohol or drug abuse patient.[facility] Care Teams (unrecognized sec tion and content) Process Control Engineer Relationship Specialty Start Date End Date Donnell Dooley MD [address] [place], [place] [id number] PCP - General Family Practice 05/11/16 Dennis Mendosa [address] [place] [phone] Ent - Otolaryngology 03/30/18 Process Control Engineer Relationship Specialty Start Date End Date Donnell Dooley MD [address] [facility] [place] [address] PCP - General Family Practice 05/11/16 Dennis Mendosa [address] [place] [address] Ent - Otolaryngology 03/30/18 Process Control Engineer Relationship Specialty Start Date End Date Donnell Dooley MD [address] [place] [address] PCP - General Family Practice 05/11/16 Dennis Mendosa [address] [place] [address] Ent - Otolaryngology 03/30/18 Process Control Engineer Relationship Specialty Start Date End Date Donnell Dooley MD [address] [place] [address] PCP - General Family Practice 05/11/16 Dennis Mendosa [address] [place] [address] Ent - Otolaryngology 03/30/18 Process Control Engineer Relationship Specialty Start Date End Date Donnell Dooley MD [address] [place] [address] PCP - General Family Practice 05/11/16 Dennis Mendosa [address] [place] [address] Ent - Otolaryngology 03/30/18 Process Control Engineer Relationship Specialty Start Date End Date Donnell Dooley MD [address] [place] [address] PCP - General Family Practice 05/11/16 Dennis Mendosa [address] [place] [address] Ent - Otolaryngology 03/30/18 Process Control Engineer Relationship Specialty Start Date End Date Donnell Dooley MD [address] [place] [address] PCP - General Family Practice 05/11/16 Dennis Mendosa [address] [place] [address] Ent - Otolaryngology 03/30/18 Process Control Engineer Relationship Specialty Start Date End Date Donnell Dooley MD [address] [place] [address] PCP - General Family Practice 05/11/16 Dennis Mendosa [address] [place] [address] Ent - Otolaryngology 03/30/18 Process Control Engineer Relationship Specialty Start Date End Date Donnell Dooley MD [address] [place] [address] PCP - General Family Practice 05/11/16 Dennis Mendosa [address] [place] [address] Ent - Otolaryngology 03/30/18 Process Control Engineer Relationship Specialty Start Date End Date Donnell Dooley MD [address] [place] [address] PCP - General Family Practice 05/11/16 Dennis Mendosa [address] [place] [address] Ent - Otolaryngology 03/30/18 Process Control Engineer Relationship Specialty Start Date End Date Donnell Dooley MD [address] [place] [address] PCP - General Family Practice 05/11/16 Dennis Mendosa [address] [place] [address] Ent - Otolaryngology 03/30/18 Process Control Engineer Relationship Specialty Start Date End Date Donnell Dooley MD [address] [place] [address] PCP - General Family Practice 05/11/16 Dennis Mendosa [address] [place] [address] Ent - Otolaryngology 03/30/18 Process Control Engineer Relationship Specialty Start Date End Date Donnell Dooley MD [address] [place] [address] PCP - General Family Practice 05/11/16 Dennis Mendosa [address] [place] [address] Ent - Otolaryngology 03/30/18 Process Control Engineer Relationship Specialty Start Date End Date Donnell Dooley MD [address] [place] [address] PCP - General Family Medicine 05/11/16 Dennis Mendosa [address] [place] [address] Ent - Otolaryngology 03/30/18 Process Control Engineer Relationship Specialty Start Date End Date Donnell Dooley MD [address] [place] [address] PCP - General Family Medicine 05/11/16 Dennis Mendosa [address] [place] [address] Ent - Otolaryngology 03/30/18 Process Control Engineer Relationship Specialty Start Date End Date Donnell Dooley MD [address] [place] [address] PCP - General Family Medicine 05/11/16 Dennis Mendosa [address] [place] [address] Ent - Otolaryngology 03/30/18 Process Control Engineer Relationship Specialty Start Date End Date Donnell Dooley MD [address] [place] [address] PCP - General Family Medicine 05/11/16 Dennis Mendosa [address] [place] [address] Ent - Otolaryngology 03/30/18 Process Control Engineer Relationship Specialty Start Date End Date Donnell Dooley MD [address] [place] [address] PCP - General Family Medicine 05/11/16 Dennis Mendosa [address] [place] [address] Ent - Otolaryngology 03/30/18 Process Control Engineer Relationship Specialty Start Date End Date Donnell Dooley MD [address] [place] [address] PCP - General Family Medicine 05/11/16 Dennis Mendosa [address] [place] [address] Ent - Otolaryngology 03/30/18 Process Control Engineer Relationship Specialty Start Date End Date Donnell Dooley MD [address] [place] [address] PCP - General Family Medicine 05/11/16 Dennis Mendosa [address] [place] [phone] Ent - Otolaryngology 03/30/18 Team Status: Active Member Role Status Dates Dr. Donnell Dooley MD Family Provider Active Dr. Donnell Dooley MD Primary Care Provider Active Team Status: Inactive Member Role Status Dates Dr. Donnell Dooley MD Primary Care Provider, Referring Provider Active Sheba Damian NETWORK ENGINEER ADMINISTRATOR, NETWORK ENGINEER ADMINISTRATOR-C Attending Provider Active Team Status: Inactive Member Role Status Dates Dr. Donnell Dooley MD Primary Care Provider Active Dr. Jess Kendrick MD Emergency Provider Active Process Control Engineer Relationship Specialty Start Date End Date Donnell Dooley MD [address] [place] [address] PCP - General Family Medicine 05/11/16 Dennis Mendosa [address] [place] [address] Ent - Otolaryngology 03/30/18 Process Control Engineer Relationship Specialty Start Date End Date Donnell Dooley MD [address] [place] [address] PCP - General Family Medicine 05/11/16 Dennis Mendosa [address] [place] [address] Ent - Otolaryngology 03/30/18 Process Control Engineer Relationship Specialty Start Date End Date Donnell Dooley MD [address] [place] [address] PCP - General Family Medicine 05/11/16 Dennis Mendosa [address] [place] [address] Ent - Otolaryngology 03/30/18 Process Control Engineer Relationship Specialty Start Date End Date Donnell Dooley MD [address] [place], [place] [address] PCP - General Family Medicine 05/11/16 Dennis Mendosa [address] [place] [address] Ent - Otolaryngology 03/30/18 Process Control Engineer Relationship Specialty Start Date End Date Donnell Dooley MD [address] [place], [place] [address] PCP - General Family Medicine 05/11/16 Dennis Mendosa [address] [place] [phone] Ent - Otolaryngology 03/30/18 Process Control Engineer Relationship Specialty Start Date End Date Donnell Dooley MD [address] [place], [place] [address] PCP - General Family Medicine 05/11/16 Dennis Mendosa [address] [place] [phone] Ent - Otolaryngology 03/30/18 Process Control Engineer Relationship Specialty Start Date End Date Donnell Dooley MD [address] [place], [place] [address] PCP - General Family Medicine 05/11/16 Dennis Mendosa [address] [place] [phone] Ent - Otolaryngology 03/30/18 Process Control Engineer Relationship Specialty Start Date End Date Donnell Dooley MD [address] [place] [address] PCP - General Family Medicine 05/11/16 Dennis Mendosa [address] [place] [address] Ent - Otolaryngology 03/30/18 Process Control Engineer Relationship Specialty Start Date End Date Donnell Dooley MD [address] [place], [place] [address] PCP - General Family Medicine 05/11/16 Dennis Mendosa [address] [place] [address] Ent - Otolaryngology 03/30/18 Process Control Engineer Relationship Specialty Start Date End Date Donnell Dooley MD [address] [place], [place] [address] PCP - General Family Medicine 05/11/16 Dennis Mendosa [address] [place] [address] Ent - Otolaryngology 03/30/18 Process Control Engineer Relationship Specialty Start Date End Date Donnell Dooley MD [address] [place], [place] [address] PCP - General Family Medicine 05/11/16 Dennis Mendosa [address] [place] [phone] Ent - Otolaryngology 03/30/18 Process Control Engineer Relationship Specialty Start Date End Date Donnell Dooley MD [address] [place] [address] PCP - General Family Medicine 05/11/16 Dennis Mendosa [address] [place] [address] Ent - Otolaryngology 03/30/18 Process Control Engineer Relationship Specialty Start Date End Date Donnell Dooley MD [address] [place], [place] [address]888[address] PCP - General Family Medicine 05/11/16 Dennis Mendosa [address] [place] [phone] Ent - Otolaryngology 03/30/18 Process Control Engineer Relationship Specialty Start Date End Date Donnell Dooley MD [address] [place], [place] 8830[address] PCP - General Family Medicine 05/11/16 Dennis Mendosa [address] [place] [address] Ent - Otolaryngology 03/30/18 Process Control Engineer Relationship Specialty Start Date End Date Donnell Dooley MD [address] [place], [place] [address] PCP - General Family Medicine 05/11/16 Dennis Mendosa [address] [place] [phone] Ent - Otolaryngology 03/30/18 Process Control Engineer Relationship Specialty Start Date End Date Donnell Dooley MD [address] [place] [address] PCP - General Family Medicine 05/11/16 Dennis Mendosa [address] [place] [phone] Ent - Otolaryngology 03/30/18 Team Status: Inactive [...] Dr. Sav Carter , Emergency Provider Active Process Control Engineer Relationship Specialty Start Date End Date Donnell Dooley MD [address] [place], [place] [address]2001 PCP - General Family Medicine 05/11/16 Dennis Mendosa [address] [place] [phone] Ent - Otolaryngology 03/30/18 Process Control Engineer Relationship Specialty Start Date End Date Donnell Dooley MD [address] [place], [place] 809321 PCP - General Family Medicine 05/11/16 Dennis Mendosa [address] [place] [phone] Ent - Otolaryngology 03/30/18 Process Control Engineer Relationship Specialty Start Date End Date Donnell Dooley MD [address] [place], [place] 987731 PCP - General Family Medicine 05/11/16 Dennis Mendosa [address] [facility] [place] [phone] Ent - Otolaryngology 03/30/18 Process Control Engineer Relationship Specialty Start Date End Date Donnell Dooley MD [address] [facility] 15[address] PCP - General Family Medicine 05/11/16 Dennis Mendosa [address] [facility] [place] [phone] Ent - Otolaryngology 03/30/18 Margarito Shields MD [address] [facility], [place] [phone] Hematology/Oncology 01/28/23 Process Control Engineer Relationship Specialty Start Date End Date Donnell Dooley MD [address] [facility] 405071 PCP - General Family Medicine 05/11/16 Dennis Mendosa [address] [facility] [place] [phone] Ent - Otolaryngology 03/30/18 Margarito Shields MD [address] [place] [address] Hematology/Oncology 01/28/23 Process Control Engineer Relationship Specialty Start Date End Date Donnell Dooley MD [address] [facility] [place] [address] PCP - General Family Medicine 05/11/16 Dennis Mendosa [address] [place] [address] Ent - Otolaryngology 03/30/18 Margarito Shields MD [address] [place] [address] Hematology/Oncology 01/28/23 Process Control Engineer Relationship Specialty Start Date End Date Donnell Dooley MD [address] [place] [address] PCP - General Family Medicine 05/11/16 Dennis Mendosa [address] [place] [phone] Ent - Otolaryngology 03/30/18 Margarito Shields MD [address] [place], [place] 69[address]64 [phone] Hematology/Oncology 01/28/23 Process Control Engineer Relationship Specialty Start Date End Date Donnell Dooley MD [address] [place] [address] PCP - General Family Medicine 05/11/16 Dennis Mendosa [address] [place] [phone] Ent - Otolaryngology 03/30/18 Margarito Shields MD [address] [place] [address] Hematology/Oncology 01/28/23 Process Control Engineer Relationship Specialty Start Date End Date Donnell Dooley MD [address] [address] PCP - General Family Medicine 05/11/16 Dennis Mendosa [address] [place] [phone] Ent - Otolaryngology 03/30/18 Margarito Shields MD [address] [place] [address] Hematology/Oncology 01/28/23 Process Control Engineer Relationship Specialty Start Date End Date Donnell Dooley MD [address] [place] [address] PCP - General Family Medicine 05/11/16 Dennis Mendosa [address] [phone] Ent - Otolaryngology 03/30/18 Margarito Shields MD [address] [place] [address] Hematology/Oncology 01/28/23 Process Control Engineer Relationship Specialty Start Date End Date Donnell Dooley MD [address] [place] [address]911 PCP - General Family Medicine 05/11/16 Dennis Mendosa [address] [place] [phone] Ent - Otolaryngology 03/30/18 Margarito Shields MD [address] [place] [address] [phone] Hematology/Oncology 01/28/23 Process Control Engineer Relationship Specialty Start Date End Date Donnell Dooley MD [address] [place] [address] PCP - General Family Medicine 05/11/16 Dennis Mendosa [address] [place] [address] Ent - Otolaryngology 03/30/18 Margarito Shields MD [address] [place] [address] Hematology/Oncology 01/28/23 Process Control Engineer Relationship Specialty Start Date End Date Donnell Dooley MD [address] [place] [address] PCP - General Family Medicine 05/11/16 Dennis Mendosa [address] [place] [address] Ent - Otolaryngology 03/30/18 Margarito Shields MD [address] [place] [address] Hematology/Oncology 01/28/23 Process Control Engineer Relationship Specialty Start Date End Date Donnell Dooley MD [address] [place] [address] PCP - General Family Medicine 05/11/16 Dennis Mendosa [address] [place] [address] Ent - Otolaryngology 03/30/18 Margarito Shields MD [address] [place] [address] Hematology/Oncology 01/28/23 Process Control Engineer Relationship Specialty Start Date End Date Donnell Dooley MD [address] [place] [address] PCP - General Family Medicine 05/11/16 Dennis Mendosa [address] [place] [phone] Ent - Otolaryngology 03/30/18 Margarito Shields MD [address] [place] [address] Hematology/Oncology 01/28/23 Process Control Engineer Relationship Specialty Start Date End Date Donnell Dooley MD [address] [place] [address] PCP - General Family Medicine 05/11/16 Dennis Mendosa [address] [place] [phone] Ent - Otolaryngology 03/30/18 Margarito Shields MD [address] [place] [address] Hematology/Oncology 01/28/23 Process Control Engineer Relationship Specialty Start Date End Date Donnell Dooley MD [address] [place] [address] PCP - General Family Medicine 05/11/16 Dennis Mendosa [address] [place] [address] Ent - Otolaryngology 03/30/18 Margarito Shields MD [address] [place] [address] Hematology/Oncology 01/28/23 Process Control Engineer Relationship Specialty Start Date End Date Donnell Dooley MD [address] [place] [address] PCP - General Family Medicine 05/11/16 Dennis Mendosa [address] [place] [phone] Ent - Otolaryngology 03/30/18 Margarito Shields MD [address] [place], [place] 510235 [phone] Hematology/Oncology 01/28/23 Process Control Engineer Relationship Specialty Start Date End Date Donnell Dooley MD [address] [place] [address] PCP - General Family Medicine 05/11/16 Dennis Mendosa [address] [place] [address] Ent - Otolaryngology 03/30/18 Margarito Shields MD [address] [place] [address] Hematology/Oncology 01/28/23 Process Control Engineer Relationship Specialty Start Date End Date Donnell Dooley MD [address] [place], [place] 989851 PCP - General Family Medicine 05/11/16 Dennis Mendosa [address] [place] [phone] Ent - Otolaryngology 03/30/18 Process Control Engineer Relationship Specialty Start Date End Date Donnell Dooley MD [address] [place], [place] 935441 PCP - General Family Medicine 05/11/16 Dennis Mendosa [address] [place] [phone] Ent - Otolaryngology 03/30/18 Process Control Engineer Relationship Specialty Start Date End Date Donnell Dooley MD [address] [place], [place] [phone] PCP - General Family Medicine 05/11/16 Dennis Mendosa [address] [place] [phone] Ent - Otolaryngology 03/30/18 Process Control Engineer Relationship Specialty Start Date End Date Donnell Dooley MD [address] [place], [place] [phone] PCP - General Family Medicine 05/11/16 Dennis Mendosa [address] [place] [phone] Ent - Otolaryngology 03/30/18 Margarito Shields MD [address] [place], [place] [phone] Hematology/Oncology 01/28/23 Process Control Engineer Relationship Specialty Start Date End Date Donnell Dooley MD [address] [place] [address] PCP - General Family Medicine 05/11/16 Dennis Mendosa [address] [place] [phone] Ent - Otolaryngology 03/30/18 Margarito Shields MD [address] [place] [address] Hematology/Oncology 01/28/23 Process Control Engineer Relationship Specialty Start Date End Date Donnell Dooley MD [address] [place] [address] PCP - General Family Medicine 05/11/16 Dennis Mendosa [address] [place] [phone] Ent - Otolaryngology 03/30/18 Margarito Shields MD [address] [place] [address] Hematology/Oncology 01/28/23 Morelia Hewitt APRN.PART TIME FLEXIBLE CLERK [address] [place] [address] Nurse Practitioner Manager Family Medicine 01/31/24 Amber Griffith APRN.PART TIME FLEXIBLE CLERK [address] [place] [address] Nurse Practitioner Manager Family Medicine 01/31/24 Process Control Engineer Relationship Specialty Start Date End Date Donnell Dooley MD [address] [place], [place] 994541 PCP - General Family Medicine 05/11/16 Dennis Mendosa [address] [place] [phone] Ent - Otolaryngology 03/30/18 Margarito Shields MD [address] [place] [address] Hematology/Oncology 01/28/23 Morelia Hewitt, RELIABILITY TECHNOLOGIST.PART TIME FLEXIBLE CLERK [address] [place] [address] [facility] 01/31/24 Amber Griffith RELIABILITY TECHNOLOGIST.PART TIME FLEXIBLE CLERK [address] [place] [address] [facility] 01/31/24 Process Control Engineer Relationship Specialty Start Date End Date Donnell Dooley MD [address] [place] [address] PCP - General Family Medicine 05/11/16 Dennis Mendosa [address] [place] [phone] Ent - Otolaryngology 03/30/18 Margarito Shields MD [address] [place] [address] Hematology/Oncology 01/28/23 Morelia Hewitt, RELIABILITY TECHNOLOGIST.PART TIME FLEXIBLE CLERK [address] [place] [address] Nurse Practitioner Manager Family Medicine 01/31/24 Amber Griffith RELIABILITY TECHNOLOGIST.PART TIME FLEXIBLE CLERK [address] [place] [address] Nurse Practitioner Manager Family Medicine 01/31/24 Process Control Engineer Relationship Specialty Start Date End Date Donnell Dooley MD [address] [place] [address] PCP - General Family Medicine 05/11/16 Dennis Mendosa [address] [place] [address] Ent - Otolaryngology 03/30/18 Margarito Shields MD [address] [place] [address] Hematology/Oncology 01/28/23 Morelia Hewitt APRN.PART TIME FLEXIBLE CLERK [address] [place] [address] Nurse Practitioner Manager Family Medicine 01/31/24 Amber Griffith RELIABILITY TECHNOLOGIST.PART TIME FLEXIBLE CLERK [address] [place] [address] Nurse Practitioner Manager Family Medicine 01/31/24 Process Control Engineer Relationship Specialty Start Date End Date Donnell Dooley MD [address] [place] [address] PCP - General Family Medicine 05/11/16 Dennis Mendosa [address] [place] [phone] Ent - Otolaryngology 03/30/18 Margarito Shields MD [address] [place] [address] Hematology/Oncology 01/28/23 Morelia Hewitt APRN.PART TIME FLEXIBLE CLERK [address] [facility] [place] [address] Nurse Practitioner Manager Family [facility] 01/31/24 Amber Griffith APRN.PART TIME FLEXIBLE CLERK [address] [place] [address] [facility] 01/31/24 Process Control Engineer Relationship Specialty Start Date End Date Donnell Dooely MD [address] [facility] [place] [address] PCP - General Family Medicine 05/11/16 Dennis Mendosa [address] [facility] [place] [phone] Ent - Otolaryngology 03/30/18 Margarito Shields MD [address] [place] [address] Hematology/Oncology 01/28/23 Morelia Hewitt, RELIABILITY TECHNOLOGIST.PART TIME FLEXIBLE CLERK [address] [facility] [place] [address] [facility] 01/31/24 Amber Griffith APRN.PART TIME FLEXIBLE CLERK [address] [facility] [place] [address] Nurse Practitioner Manager Family [facility] 01/31/24 Process Control Engineer Relationship Specialty Start Date End Date Donnell Dooley MD [address] [place] [address] PCP - General Family Medicine 05/11/16 Dennis Mendosa [address] [place] [phone] Ent - Otolaryngology 03/30/18 Margarito Shields MD [address] [place] [address] Hematology/Oncology 01/28/23 Morelia Hewitt APRN.PART TIME FLEXIBLE CLERK [address] [place] [address] [facility] 01/31/24 Amber Griffith RELIABILITY TECHNOLOGIST.PART TIME FLEXIBLE CLERK [address] [place] [address] [facility] 01/31/24 Process Control Engineer Relationship Specialty Start Date End Date Donnell Dooley MD [address] [place] [address] PCP - General Family Medicine 05/11/16 Dennis Mendosa [address] [place] [phone] Ent - Otolaryngology 03/30/18 Margarito Shields MD [address] [place] [address] Hematology/Oncology 01/28/23 Morelia Hewitt, RELIABILITY TECHNOLOGIST.PART TIME FLEXIBLE CLERK [address] [place] [address] [facility] 01/31/24 Amber Griffith RELIABILITY TECHNOLOGIST.PART TIME FLEXIBLE CLERK [address] [place] [address] [facility] 01/31/24 Process Control Engineer Relationship Specialty Start Date End Date Donnell Dooley MD [address] [place], [place] 0[address]221 PCP - General Family Medicine 05/11/16 Dennis Mendosa [address] [place] [address] Ent - Otolaryngology 03/30/18 Margarito Shields MD [address] [place], [place] [address] Hematology/Oncology 01/28/23 Morelia Hewitt, RADHA.PART TIME FLEXIBLE CLERK [address] [place] [address] [facility] 01/31/24 Amber Griffith RELIABILITY TECHNOLOGIST.PART TIME FLEXIBLE CLERK [address] [place] [address] [facility] 01/31/24 Team Status: Active Member Role/Relationship Status [...] MDM 60-74 MINUTES Donnell Dooley MD [address] [place] [address] Referral ID Status Reason Start Date Expiration Date V isits Requested Visits Authorized [id number] Closed PCP Requested Referral 12/23/2022 12/23/2023 1 1 Specialty Diagnoses / Procedures Referred By Contac t Referred To Contact MR IMAGING Diagnoses Brain mass Meningioma (HCC) Procedures MRI BRAIN WO/W IVCON MRI BRAIN BRAIN STEM W/O W/CONTRAST MATERIAL Donnell Dooley MD [address] [place] [address] Mr Imaging Referral ID Status Reason Start Date Expiration Date V isits Requested Visits Authorized [id number] Closed Auto-Generate d Referral 05/06/2021 06/05/2022 1 [...] Request for outside medical records 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 Appointment Reason Comments [...] ABD & PELVIS W/O CONTRAST Morelia Hewitt, RADHA.PART TIME FLEXIBLE CLERK [address] [place] [address] [place] [address] Referral ID Status Reason Start Date Expiration Date V isits Requested Visits Authorized [id number] Closed Auto-Generate d Referral 08/04/2023 09/02/2024 [address] Specialty Diagnoses / Procedures Referred By Contac t Referred To Contact CT IMAGING Diagnoses Pelvic pain Procedures CT ABD/PEL WO IVCON CT ABD & PELVIS W/O CONTRAST Morelia Hewitt, RADHA.PART TIME FLEXIBLE CLERK [address] [place] [address] Ct Imaging [facility] Reason Comments Eye Problem Bilat eyes, redness, swelling, x 1 week Reason Comments Results Reason Comments Information Reason Comments Clinical Update Reason Comments Established Patient Follow Up Pain Reason Onset Date Comments Population Health Navigation Outreach 05/11/2024 [facility] [place] [facility] Reason Onset Date Comments Population Health Navigation Outreach 06/28/2024 [facility] [place] [facility] Goals (unrecognized section and content) Goals may be documented in a n alternate sectionGoals may be documented in an alternate sectionGoals may be documented in an alternate sectionGoals may be documented in an alternate section INFORMATION SOURCE (unrecogn ized section and content) DATE CREATED AUTHOR 10/17/2022 [facility] DATE CREATED AUTHOR AUTHOR'S ORGANIZ ATION 04/04/2023 [facility] DATE CREATED AUTHOR AUTHOR'S ORGANIZ ATION 03/24/2024 [facility] DATE CREATED AUTHOR AUTHOR'S ORGANTHIERRY ATION 07/19/2024 [facility] FOR RECORDS PERTAINING TO PATIENTS WHO [...] BE BASED ON THE PRIMARY CLINICAL RECORDS. [employer] [facility]. provides no warranty or guarantee of the accuracy or completeness of information in this document.
[2024-08-22 23:20] LABS: Magnesium 1.7 mg/dL (1.5-2.2)
--- NOTE | 2024-08-22 23:20 | CT_ITS ---
PROCEDURE: CHEST WITHOUT CONTRAST 08/22/2024 REASON FOR EXAM: CXR OBSCURED BY BREAST TISSUE. QUESTIONABLE PNA. TECHNIQUE: Chest CT without contrast. Coronal and Sagittal reconstruction series were provided. One or more dose reduction techniques were used (e.g., Automated exposure control, adjustment of the mA and/or kV according to patient size, use of iterative reconstruction technique RADIATION DOSE SUMMARY: CTDlvol: 6 mGy DLP: 231 mGycm COMPARISON: CT 11/18/2022 FINDINGS: Small tracheal secretions. Small right lower lobe secretions within a dilated bronchial, series 4 images 90/93. Otherwise patent central airways. Severe emphysema. Bilateral linear scar/atelectasis. No effusion or pneumothorax. On the left, there is small posterior lower lobe nodular lung densities, series 4, image 91, possibly infectious. On the right, series 4, image 67, stable 12 mm pleural-based oval-shaped density consistent with benign etiology. Series 601, image 116, interval development of a lower lobe spiculated density measuring approximately 5 x 8 mm, pleural-based and favoring scarring. Unremarkable base of neck and axilla. Thoracic spine degeneration. Normal esophagus. Normal heart size. No acute vascular findings. No acute abdominal wall findings. Diffuse hepatic steatosis. Liver cyst. CT/Chest without Contrast IMPRESSION: In the posterior aspect of the left lower lobe, there is a small area of nodula r densities possibly infectious in etiology. In the posterior right lower lobe, there is a pleural-based spiculated density, not present previously, favoring scarring. Lung nodule not excluded. Recommend three-month follow up imaging. Reading Location: [facility]
[2024-08-22] MEDS: 0.9% Normal Saline (1000mL) 1,000 ML 70 ML IV (23:32)
[2024-08-23] VITALS (10 sets, daily range): BP systolic 133–158; BP diastolic 89–121; PULSE 71–90; RESP 12–28; TEMP 35.9–36.7; O2SAT 95–98; BMI 16.7
[2024-08-23 01:39] LABS: Allen Test Positive; Base Excess 3 mmol/L (-2 to +2); FI02 2.0; PO2 87 mmHG (75-100); SITE L Radial; SO2 97 % (95-99)
--- NOTE | 2024-08-23 06:16 | ECHOD_ITS ---
Reason For Study Reason For Study: DYSPNEA/SOB Procedure This was a 2D Doppler, Color Flow transthoracic echocardiogram. The study was technically difficult. PT sat up for exam due to dyspnea/SOB. Exam performed in department. Left Ventricle Normal left ventricle. The estimated ejection fraction is 60???65 %. Right Ventricle Normal right ventricle. Normal systolic function. Atria Normal left atrium. Normal right atrium. Mitral Valve Posterior mitral valve prolapse Moderate MR. Tricuspid Valve Normal tricuspid valve. Mild tricuspid valve insufficiency. Aortic Valve Trisinus/trileaflet aortic valve. Pulmonic Valve The pulmonic valve is not well visualized. Great Vessels The aortic root is not well visualized. Pericardium/Pleural No pericardial effusion. MMode/2D Measurements & Calculations LVIDd: 4.0 cm IVSd: 0.77 cm LVAd ap4: 19.8 cm2 LVIDs: 2.9 cm LVPWd: 0.78 cm LVLd ap4: 6.0 cm RVDd: 2.9 cm FS: 27.3 % EDV(MOD-sp4): 52.7 ml EDV(sp4-el): 55.7 ml LVAs ap4: 9.6 cm2 LVLs ap4: 5.6 cm ESV(MOD-sp4): 14.6 ml ESV(sp4-el): 14.0 ml EF(MOD-sp4): 72.3 % EF(sp4-el): 74.9 % LVAd ap2: 19.0 cm2 SV(MOD-sp4): 38.0 ml SV(MOD-sp2): 29.5 ml LVLd ap2: 6.8 cm SI(MOD-sp4): 28.5 ml/m2 SI(MOD-sp2): 22.1 ml/m2 EDV(MOD-sp2): 43.4 ml EDV(sp2-el): 45.1 ml LVAs ap2: 10.1 cm2 LVLs ap2: 6.0 cm ESV(MOD-sp2): 13.9 ml ESV(sp2-el): 14.4 ml EF(MOD-sp2): 68.0 % SV(sp4-el): 41.7 ml LA dimension(2D): 3.1 cm TAPSE: 1.9 cm Time Measurements MV dec time: 0.20 sec Doppler Measurements & Calculations MV E max king: 82.2 cm/sec Lat Peak E' King: 7.3 cm/sec Med Peak E' King: 7.9 cm/sec MV A max king: 97.9 cm/sec E/E' lat: 11.2 E/E' med: 10.5 MV E/A: 0.84 MV V2 max: 88.0 cm/sec MV P1/2t max king: 81.2 cm/sec Ao V2 max: 191.5 cm/sec MV max P.1 mmHg MV P1/2t: 50.3 msec Ao max P.7 mmHg MV V2 mean: 55.0 cm/sec MV dec slope: 472.7 cm/sec2 Ao V2 mean: 120.5 cm/sec MV mean P.4 mmHg MVA(P1/2t): 4.4 cm2 Ao mean P.6 mmHg MV V2 VTI: 18.5 cm Ao V2 VTI: 33.6 cm AV (velocity ratio): 0.50 LV V1 max: 95.5 cm/sec PA V2 max: 94.0 cm/sec TR max king: 265.0 cm/sec LV V1 max P.6 mmHg PA V2 mean: 70.0 cm/sec TR max P.1 mmHg LV V1 mean P.8 mmHg LV V1 mean: 62.2 cm/sec LV V1 VTI: 17.0 cm ECHO/Echo Complete Interpretation Summary The estimated ejection fraction is 60???65 %. Posterior mitral valve prolapse Mild MR. Grade 1 diastolic dysfunction. Mild tricuspid regurgitation No significant difference from previous echocardiogram. Ordering Physician: Naeem Barnett Referring Physician: Donnell Tse Performed By: Kisha Ayala RDCS, RVT
[2024-08-23 06:50] LABS: Hematocrit 42.3 % (37-47); Hemoglobin 14.3 g/dL (12.0-15.0); Immature Granulocytes Count 0.040 X10^3/uL (0.0-0.0); Mean Corp Hgb Conc 33.8 g/dL (32-36); Mean Corpuscular Volume 86.7 fL (81-99); Mean Platelet Vol. 13.0 fl (6.2-12.0); NRBC Flagged by Analyzer 0 % (0-5); POSITIVE MORPHOLOGY YES; Platelet Count 129 K/mm3 (150-450); RBC Distribution Width CV 14.4 % (11.6-14.6); RBC Distribution Width SD 45.9 fl (35.1-43.9); Red Blood Count 4.88 M/mm3 (4.2-5.4); White Blood Count 9.2 K/mm3 (4.4-11.0)
[2024-08-23 07:12] LABS: Differential Indicated SCAN CRITERIA MET
[2024-08-23 07:54] LABS: AST(SGOT) 54 U/L (<=31); Alanine Aminotransfer ALT/SGPT 42 U/L (<=34); Albumin, Serum 3.7 g/dL (3.4-4.8); Alkaline Phosphatase 113 U/L (35-104); Anion Gap 15 (5-15); BUN 27 mg/dL (4-19); BUN/Creat Ratio 34.5 RATIO (10-20); Calcium,Total 8.3 mg/dL (7.6-11.0); Carbon Dioxide 24.0 mmol/L (21.0-32.0); Chloride 97 mmol/L (98-108); Estimated Creatinine Clearance 34.32 ml/min (50-250); Globulin 2.2 g/dL (2.2-4.2); Glucose 129 mg/dL (70-99); Potassium 3.7 mmol/L (3.3-5.1)
--- NOTE | 2024-08-23 08:20 | PCM.PN.HOSP ---
Reason for Visit Reason for Visit: Diagnoses Elevated white blood cell count, unspecified (08/22/24) Essential (primary) hypertension (08/22/24) Nonrheumatic mitral (valve) insufficiency (08/22/24) Nonrheumatic tricuspid (valve) insufficiency (08/22/24) Pneumonia, unspecified organism (08/22/24) Chronic obstructive pulmonary disease with (acute) exacerbation (08/22/24) Acute respiratory failure, unspecified whether with hypoxia or hypercapnia (08/22/24) Acute respiratory failure with hypoxia (08/22/24) Other abnormalities of breathing (08/22/24) Objective Data Objective Data Vital Signs: Vital Signs Temp Pulse Resp BP Pulse Ox O2 Del Method O2 Flow Rate 96.7 F L 84 18 133/97 H 97 Nasal Cannula 2 08/23/24 03:23 08/23/24 03:23 08/23/24 03:23 08/23/24 03:23 08/23/24 03:23 08/23/24 07:55 08/23/24 07:55 Oxygen Flow Rate (L/min) 2 Oxygen Delivery Method Nasal Cannula Weight: 88 lb 6.486 oz Body Mass Index (BMI) 16.7 Intake & Output: Intake and Output for Last 24 Hours 08/21/24 08/22/24 08/23/24 23:59 23:59 23:59 Intake Total 650 / 650 Balance 650 / 650 Lab / Micro Data 08/23/24 05:52 08/23/24 05:52 Labs: Laboratory Results - last 24 hr 08/22/24 17:35: WBC 15.2 H, RBC 4.97, Hgb 14.5, Hct 42.9, MCV 86.3, MCH 29.2, MCHC 33.8, RDW Std Deviation 45.6 H, RDW Coeff of Anderson 14.4, Plt Count 127 L, MPV 12.6 H, Immature Gran % (Auto) 0.500, Neut % (Auto) 64.4, Lymph % (Auto) 25.4, [place] % (Auto) 8.3, Eos % (Auto) 1.0, Baso % (Auto) 0.4, Absolute Neuts (auto) 9.8 H, Absolute Lymphs (auto) 3.85, Nucleated RBC % 0, Sodium 133, Potassium 4.1, Chloride 94 L, Carbon Dioxide 25.2, Anion Gap 14, BUN 31 H, Creatinine 0.76, Estim Creat Clear Calc 35.86 L, Est GFR (MDRD) Non-Af 79, BUN/Creatinine Ratio 40.5 H, Glucose 118 H, Lactic Acid 1.4, Calcium 8.6, Magnesium 1.7 08/23/24 05:52: WBC 9.2, RBC 4.88, Hgb 14.3, Hct 42.3, MCV 86.7, MCH 29.3, MCHC 33.8, RDW Std Deviation 45.9 H, RDW Coeff of Anderson 14.4, Plt Count 129 L, MPV 13.0 H, Immature Gran % (Auto) 0.400, Neut % (Auto) 42.0 L, Lymph % (Auto) 51.0 H, [place] % (Auto) 6.5, Eos % (Auto) 0.0, Baso % (Auto) 0.1, Absolute Neuts (auto) 3.9, Absolute Lymphs (auto) 4.70 H, Nucleated RBC % 0, Sodium 136, Potassium 3.7, Chloride 97 L, Carbon Dioxide 24.0, Anion Gap 15, BUN 27 H, Creatinine 0.79, Estim Creat Clear Calc 34.32 L, Est GFR (MDRD) Non-Af 75, BUN/Creatinine Ratio 34.5 H, Glucose 129 H, Calcium 8.3, Phosphorus 3.2, Total Bilirubin 0.52, AST 54 H, ALT 42 H, Alkaline Phosphatase 113 H, Total Protein 5.9, Albumin 3.7, Globulin 2.2, Albumin/Globulin Ratio 1.7, TSH 3.560 Micro: Microbiology 08/22/24 20:48 Mucosa - Nose Respiratory Panel (PCR) - Final Human [place] 08/22/24 17:38 Mucosa - Nose SARS-CoV-2, Influenza & RSV (PCR) - Final ABG Data ABG results: ABG 08/22/24 08/23/24 17:55 01:36 Specimen Type NAHOMY ART Sample Site Not entered L Radial pH 7.44 Bicarbonate Actual 27.5 H Total CO2 29 Base Excess 3 H O2 Saturation 97 O2 % 2.0 ABG pCO2 40.8 ABG pO2 87 Sujit Test Positive VBG pH 7.52 H VBG pO2 36 VBG HCO3 27 H VBG Total CO2 28 VBG O2 Sat (Calc) 76 H VBG Base Excess 4 H POC Mix VBG pCO2 Pt Tmp 33.0 L O2 Delivery Device Room Air Cannula Vent Mode Not entered Radiography Diagnostic Testing: Radiology Impression Chest X-Ray 08/22/24 17:17 IMPRESSION: Overlying dense breasts limits evaluation of underlying bilateral lower lobes. Focal consolidations within the bilateral lower lobes not excluded. Hyperinflated lungs may reflect COPD. Reading Location: [id number] Chest CT 08/22/24 23:20 IMPRESSION: In the posterior aspect of the left lower lobe, there is a small area of nodular densities possibly infectious in etiology. In the posterior right lower lobe, there is a pleural-based spiculated density, not present previously, favoring scarring. Lung nodule not excluded. Recommend three-month follow up imaging. Reading Location: [place] [address] Assessment & Plan Assessment/Plan (1) COPD exacerbation: (2) Pneumonia: QUALIFIERS: Laterality: left Lung location: lower lobe of lung Pneumonia type: due to unspecified organism Qualified Code(s): J18.9 - Pneumonia, unspecified organism (3) Leukocytosis: QUALIFIERS: Leukocytosis type: unspecified Qualified Code(s): D72.829 - Elevated white blood cell count, unspecified (4) Acute respiratory failure: QUALIFIERS: Respiratory failure complication: hypoxia Qualified Code(s): J96.01 - Acute respiratory failure with hypoxia (5) Nonrheumatic mitral valve regurgitation: (6) Nonrheumatic tricuspid valve regurgitation: (7) Essential hypertension: PLAN: Plan 84-year-old female admitted with Shortness of breath, URI symptoms and cough for past several days with history of COPD. At urgent care pulse ox was 88% therefore sent to ED. On 3 L of oxygen at night only. 1. Acute hypercarbic on chronic hypoxic respiratory failure due to acute exacerbation of COPD probably due to metapneumovirus bronchitis: Patient is being admitted in PCU. VBG 7.52/mixed pCO2 33, total CO2 28. ABG looks more compensated 7.44/40.8/87 on 2 L of oxygen. Next VBG 7.31/max. CO2 61.3. Respiratory panel positive for human metapneumovirus. Urinary antigens are negative. Triple PCR for SARS-CoV-2, flu and RSV are negative. Chest x-ray initially reviewed and shows flattening of diaphragm, hyperlucent and hyperinflated/air trapping. Patient had chest CT without contrast small area of nodular densities in posterior aspect left lower lobe and pleural-based spiculated density favoring scarring in posterior right lower lobe. Severe emphysema bilateral linear atelectasis. No effusion or pneumothorax. Patient is being managed on scheduled bronchodilator, IV Solu-Medrol, Mucinex, incentive spirometry and Pep.She is not able to tolerate BiPAP and therefore low-dose IV Ativan 0.25 mg ordered and Seroquel 25 mg twice daily. Will monitor consult requested 2. Acute hypercarbic on chronic hypoxic respiratory failure due to COPD exacerbation as mentioned. The patient's daughter said she had bleeding in the lung and had to put a stent about 20 years ago, exact mechanism and college unclear and procedure 3. History of nonrheumatic mitral/tricuspid valve regurgitation -2D echo is being done 4. Essential hypertension; on triamterene-hydrochlorothiazide Home medication current 5. History of Hodgkin's lymphoma/CLL, CML?: Follows [facility] oncologist Dr. 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 Mild cognitive impairment; on rivastigmine twice daily - Continue rivastigmine as previous. History of breast cancer; s/p bilateral mastectomy (1982) with breast reconstruction (2015) - Noted. Chronic constipation - Give laxatives prn. History of thrush; on oral fluconazole, changed to oral nystatin swish and swallow as patient is on Seroquel to avoid QT prolongation adverse effect Degenerative arthritiscervicalgia and Left shoulder pain - Give acetaminophen as needed DVT/GI prophylaxis - Enoxaparin 40 mg sq daily plus SCD's. Give pantoprazole 40 mg daily Total time of the visit including total time spent in counseling or coordination of care, (more than 50% of the total time, spent in obtaining medical information from nurses and other ancillary care providers ,explaining to the patient about labs, imaging, diagnosis and management of active complex medical conditions), , review of labs and imaging is 35 minutes. Microbiology Past 72 Hours 08/22/24 20:48 Mucosa - Nose Respiratory Panel (PCR) - Final Human [place] 08/22/24 17:38 Mucosa - Nose SARS-CoV-2, Influenza & RSV (PCR) - Final Laboratory Results 08/22/24 17:35: WBC 15.2 H, RBC 4.97, Hgb 14.5, Hct 42.9, MCV 86.3, MCH 29.2, MCHC 33.8, RDW Std Deviation 45.6 H, RDW Coeff of Anderson 14.4, Plt Count 127 L, MPV 12.6 H, Immature Gran % (Auto) 0.500, Neut % (Auto) 64.4, Lymph % (Auto) 25.4, [place] % (Auto) 8.3, Eos % (Auto) 1.0, Baso % (Auto) 0.4, Absolute Neuts (auto) 9.8 H, Absolute Lymphs (auto) 3.85, Nucleated RBC % 0, Sodium 133, Potassium 4.1, Chloride 94 L, Carbon Dioxide 25.2, Anion Gap 14, BUN 31 H, Creatinine 0.76, Estim Creat Clear Calc 35.86 L, Est GFR (MDRD) Non-Af 79, BUN/Creatinine Ratio 40.5 H, Glucose 118 H, Lactic Acid 1.4, Calcium 8.6, Magnesium 1.7 08/22/24 17:55: Specimen Type NAHOMY, Sample Site Not entered, VBG pH 7.52 H, VBG pO2 36, VBG HCO3 27 H, VBG Total CO2 28, VBG O2 Sat (Calc) 76 H, VBG Base Excess 4 H, POC Mix VBG pCO2 Pt Tmp 33.0 L, O2 Delivery Device Room Air 08/23/24 01:36: Specimen Type ART, Sample Site L Radial, pH 7.44, Bicarbonate Actual 27.5 H, Total CO2 29, Base Excess 3 H, O2 Saturation 97, O2 % 2.0, ABG pCO2 40.8, ABG pO2 87, Sujit Test Positive, O2 Delivery Device Cannula, Vent Mode Not entered 08/23/24 05:52: WBC 9.2, RBC 4.88, Hgb 14.3, Hct 42.3, MCV 86.7, MCH 29.3, MCHC 33.8, RDW Std Deviation 45.9 H, RDW Coeff of Anderson 14.4, Plt Count 129 L, MPV 13.0 H, Immature Gran % (Auto) 0.400, Neut % (Auto) 42.0 L, Lymph % (Auto) 51.0 H, [place] % (Auto) 6.5, Eos % (Auto) 0.0, Baso % (Auto) 0.1, Absolute Neuts (auto) 3.9, Absolute Lymphs (auto) 4.70 H, Nucleated RBC % 0, Differential Comment SCANNED, Sodium 136, Potassium 3.7, Chloride 97 L, Carbon Dioxide 24.0, Anion Gap 15, BUN 27 H, Creatinine 0.79, Estim Creat Clear Calc 34.32 L, Est GFR (MDRD) Non-Af 75, BUN/Creatinine Ratio 34.5 H, Glucose 129 H, Calcium 8.3, Phosphorus 3.2, Total Bilirubin 0.52, AST 54 H, ALT 42 H, Alkaline Phosphatase 113 H, Total Protein 5.9, Albumin 3.7, Globulin 2.2, Albumin/Globulin Ratio 1.7, TSH 3.560 08/23/24 08:21: Specimen Type NAHOMY, Sample Site Not entered, VBG pH 7.31 L, VBG pO2 53 H, VBG HCO3 31 H, VBG Total CO2 33, VBG O2 Sat (Calc) 82 H, VBG Base Excess 5 H, POC Mix VBG pCO2 Pt Tmp 61.3 H, O2 Delivery Device Not entered Clinical Impression(s) from Imaging Studies Chest X-Ray 08/22/24 17:17 IMPRESSION: Overlying dense breasts limits evaluation of underlying bilateral lower lobes. Focal consolidations within the bilateral lower lobes not excluded. Hyperinflated lungs may reflect COPD. Reading Location: [id number] Chest CT 08/22/24 23:20 IMPRESSION: In the posterior aspect of the left lower lobe, there is a small area of nodular densities possibly infectious in etiology. In the posterior right lower lobe, there is a pleural-based spiculated density, not present previously, favoring scarring. Lung nodule not excluded. Recommend three-month follow up imaging. Reading Location: [place] [address] Charges/Coding Visit Charges Inpatient E&M: 50325 Subs Hosp L3
[2024-08-23 08:23] LABS: SITE Not entered; VBG BASE EXCESS 5 mmol/L (-1.0-3.5); VBG PO2 53 mmHg (25-40); VBG SO2 82 % (50-70); VBG TCO2 33 mmol/L (23-33)
[2024-08-23 08:54] LABS: Differential Comment SCANNED
--- NOTE | 2024-08-23 09:26 | CON.PCM.CC_ITS ---
Assessment & Plan Assessment/Plan (1) COPD exacerbation: PLAN: Plan RECOMMENDATIONS: 1. Continue PAP therapy, with breaks, as tolerated. 2. Supplemental oxygen to maintain saturations at or above 90%. 3. Continue scheduled bronchodilators and steroids. 4. Lovenox for DVT prophylaxis. IMPRESSIONS: 1. Acute combined respiratory failure secondary to COPD exacerbation due to human metapneumovirus The patient has a known history of advanced stage COPD on triple therapy inhaler regimen. She appears to be experiencing an acute exacerbation of her COPD secondary to human metapneumovirus infection. At this time, I agree with continuing supportive care including scheduled bronchodilators and steroids. Given her increased work of breathing, PAP therapy has been initiated. CODE STATUS was discussed with the patient and confirmed to be DNR CCA without intubation. 2. 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 Continue home medications as indicated. This note was generated with [employer] dictation software. It may contain incorrect words, spelling, and punctuation that were not noted in checking the note before signing. HPI Consult Data Date of Consult: 08/23/24 HPI Narrative Reason for Consultation: COPD exacerbation HPI Narrative: The patient is an 84-year-old female, with a history as outlined below, who presented to the emergency department on August 23 with complaints of worsening dyspnea. The patient has a known history of advanced age COPD on a triple therapy inhaler regimen along with a baseline oxygen requirement of 2 L/min. She was last seen in the pulmonary medicine office in December 2023. On presentation to the emergency department, the patient was noted to be afebrile and hemodynamically stable. She was, however, noted to be tachypneic and saturating 89% on room air. Laboratory evaluation was notable for a white blood cell count of 15,000. Chemistry profile was unremarkable. Lactate was normal at 1.4. Respiratory viral panel was positive for human metapneumovirus. The patient was placed on bronchodilators, steroids and doxycycline. She was admitted to the progressive care unit for further management. Although the patient was initially stable on 2 L/min, she was noted to have increased work of breathing this morning. Mixed VBG was notable for a pH of 7.3 with a pCO2 of 61. The patient was subsequently placed on PAP therapy. I did have a ibeth discussion with the patient and her daughter at the bedside this morning regarding goals of care. They indicated that the patient is a DNR CCA and would not want to be intubated. [facility] Medical History Intractable back pain Sciatica Radicular pain of lower extremity Lumbar back pain Thrush Hx of small bowel obstruction Gastritis Constipation Arthritis Easy bruising Back pain Gastric reflux Former smoker On home oxygen therapy Hoarseness Leg cramps History of edema Hypertension Cardiology follow-up encounter History of stress test History of echocardiogram Abdominal pain Meniere disease Essential hypertension History of bilateral breast cancer Cervical cancer Nonrheumatic tricuspid valve regurgitation Nonrheumatic mitral valve regurgitation Pneumothorax CML (chronic myelocytic leukemia) Weight loss COPD (chronic obstructive pulmonary disease) CLL (chronic lymphocytic leukemia) Home Medications ?Medication ?Instructions ?Recorded ?Last Taken ?Type triamterene 37.5 1 tab PO DAILY bp 04/19/19 0 08/22/24 History mg-hydrochlorothiazide 25 mg tablet meclizine 25 mg chewable tablet 25 mg PO BID PRN verti go #20 tabs 04/15/22 08/22/24 Rx (Antivert) Ventolin HFA 90 mcg/actuation 2 puff inhalation Q4H [place] N 01/12/24 Unknown Rx aerosol inhaler (albuterol sulfate) shortness of breat h or wheezing #3 device acetaminophen 325 mg capsule 650 mg PO Q4H PRN pain Unknown History fluticasone 232 mcg-salmeterol 14 1 inh inhalation Q12 H copd #1 ea 01/12/24 08/22/24 Rx mcg/actuation breath activated powdr (AirDuo RespiClick) rivastigmine tartrate 1.5 mg 1.5 mg PO BID memory 12/2408/22/24 History capsule tiotropium bromide 18 mcg capsule 18 mcg inhalation DA JUED copd #3 ea 01/12/24 08/22/24 Rx with inhalation device Allergy/AdvReac Type Severity Reaction Status Date / Time shellfish derived Allergy Severe Anaphylaxis Verified 08/22/24 16:36 bacitracin Allergy Rash Verified 08/22/24 16:36 codeine Allergy Rash Verified 08/22/24 16:36 latex Allergy IF PT USES Verified 08/22/24 16:36 LATEX GLOVES GETS RASH walnut Allergy Swelling Verified 08/22/24 16:36 amoxicillin (From Augmentin) AdvReac Mild Vomiting Verified 08/22/24 16:36 clavulanic acid (From AdvReac Mild Vomiting Verified 08/22/24 16:36 Augmentin) Family History Father Abdominal aortic aneurysm (AAA) Mother Alzheimers disease Surgical History History of esophagogastroduodenoscopy (EGD) Hx of bilateral cataract extraction Hx of lymph node excision Hx of bilateral oophorectomy Hx of colonoscopy History of dilatation and curettage History of lung surgery History of bladder surgery History of cataract surgery History of breast reconstruction History of mastectomy Social History household members: spouse number of children: 2 current occupational status: retired Smoking Status: Former smoker quit date: 02/22/94 how long ago did patient quit smokin ppd since 20s alcohol intake: current alcohol intake frequency: holidays/special occasions only Alcohol type: wine details: 4 glasses wine per week substance use type: does not use ROS ROS Narrative 10 systems were reviewed with pertinent positives as noted in the HPI above. Physical Exam Const alert and no apparent distress Constitutional Narrative: Appears comfortable at the present time with PAP therapy in place. General Appearance: cooperative and frail HEENT normocephalic and head/scalp atraumatic Eyes PERRL, EOMs intact bilaterally and conjunctivae normal Neck supple General: trachea midline Chest inspection of chest normal Resp Effort and Inspection: tachypneic Auscultation: diminished lung sounds Cardio regular rate and regular rhythm GI normal to inspection, nondistended, normoactive bowel sounds Extremity no clubbing, cyanosis or edema Skin no rashes or lesions noted Neuro CN's II-XII intact bilaterally, moves all extremities and no focal motor deficits Psych cooperative and affect normal Lab / Micro Data 08/23/24 05:52 08/23/24 05:52 Labs: Laboratory Results - last 24 hr 08/22/24 17:35: WBC 15.2 H, RBC 4.97, Hgb 14.5, Hct 42.9, MCV 86.3, MCH 29.2, MCHC 33.8, RDW Std Deviation 45.6 H, RDW Coeff of [place] 14.4, Plt Count 127 L, MPV 12.6 H, Immature Gran % (Auto) 0.500, Neut % (Auto) 64.4, Lymph % (Auto) 25.4, [place] % (Auto) 8.3, Eos % (Auto) 1.0, Baso % (Auto) 0.4, Absolute Neuts (auto) 9.8 H, Absolute Lymphs (auto) 3.85, Nucleated RBC % 0, Sodium 133, Potassium 4.1, Chloride 94 L, Carbon Dioxide 25.2, Anion Gap 14, BUN 31 H, Creatinine 0.76, Estim Creat Clear Calc 35.86 L, Est GFR (MDRD) Non-Af 79, BUN/Creatinine Ratio 40.5 H, Glucose 118 H, Lactic Acid 1.4, Calcium 8.6, Magnesium 1.7 08/23/24 05:52: WBC 9.2, RBC 4.88, Hgb 14.3, Hct 42.3, MCV 86.7, MCH 29.3, MCHC 33.8, RDW Std Deviation 45.9 H, RDW Coeff of [place] 14.4, Plt Count 129 L, MPV 13.0 H, Immature Gran % (Auto) 0.400, Neut % (Auto) 42.0 L, Lymph % (Auto) 51.0 H, [place] % (Auto) 6.5, Eos % (Auto) 0.0, Baso % (Auto) 0.1, Absolute Neuts (auto) 3.9, Absolute Lymphs (auto) 4.70 H, Nucleated RBC % 0, Differential Comment SCANNED, Sodium 136, Potassium 3.7, Chloride 97 L, Carbon Dioxide 24.0, Anion Gap 15, BUN 27 H, Creatinine 0.79, Estim Creat Clear Calc 34.32 L, Est GFR (MDRD) Non-Af 75, BUN/Creatinine Ratio 34.5 H, Glucose 129 H, Calcium 8.3, Phosphorus 3.2, Total Bilirubin 0.52, AST 54 H, ALT 42 H, Alkaline Phosphatase 113 H, Total Protein 5.9, Albumin 3.7, Globulin 2.2, Albumin/Globulin Ratio 1.7, TSH 3.560 Micro: Microbiology 08/22/24 20:48 Mucosa - Nose Respiratory Panel (PCR) - Final Human [place] 08/22/24 17:38 Mucosa - Nose SARS-CoV-2, Influenza & RSV (PCR) - Final ABG Data ABG results: ABG 08/22/24 08/23/24 08/23/24 17:55 01:36 08:21 Specimen Type NAHOMY ART NAHOMY Sample Site Not entered L Radial Not entered pH 7.44 Bicarbonate Actual 27.5 H Total CO2 29 Base Excess 3 H O2 Saturation 97 O2 % 2.0 ABG pCO2 40.8 ABG pO2 87 Sujit Test Positive VBG pH 7.52 H 7.31 L VBG pO2 36 53 H VBG HCO3 27 H 31 H VBG Total CO2 28 33 VBG O2 Sat (Calc) 76 H 82 H VBG Base Excess 4 H 5 H POC Mix VBG pCO2 Pt Tmp 33.0 L 61.3 H O2 Delivery Device Room Air Cannula Not entered Vent Mode Not entered Imaging Radiology Impression Chest X-Ray 08/22/24 17:17 IMPRESSION: Overlying dense breasts limits evaluation of underlying bilateral lower lobes. Focal consolidations within the bilateral lower lobes not excluded. Hyperinflated lungs may reflect COPD. Reading Location: [id number] Chest CT 08/22/24 23:20 IMPRESSION: In the posterior aspect of the left lower lobe, there is a small area of nodular densities possibly infectious in etiology. In the posterior right lower lobe, there is a pleural-based spiculated density, not present previously, favoring scarring. Lung nodule not excluded. Recommend three-month follow up imaging. [facility] Charges/Coding Visit Charges Inpatient E&M: 85131 Init Hosp L3
[2024-08-23] MEDS: 0.9% Saline Lock 10 ML Syringe IV ×2 (09:58→21:39)
[2024-08-23] MEDS: Aspirin E.C. 81 MG Tablet PO (09:59)
[2024-08-23] MEDS: Lorazepam 2 MG/ML WCH Syringe 0.25 MG IV (09:59)
[2024-08-23] MEDS: Lactobacillis Acidophilus 1 CAP PO ×4 (09:59→21:28)
[2024-08-23] MEDS: Triamterene 37.5MG/Hctz 25MG Capsule 1 CAP PO (09:59)
[2024-08-23] MEDS: guaiFENesin/D-Methorphan TAB.SR.12H 2 TABLET PO ×2 (10:38→21:27)
[2024-08-23] MEDS: NYSTATIN 500,000 UNIT/5 ML UDC 500000 UNIT PO ×4 (10:38→21:27)
--- NOTE | 2024-08-23 14:08 | CASEMGMT ---
SHANTELL REYNAGA in to discuss discharge planning with patient and daughter Johanna, patient confused. SHANTELL REYNAGA updated daughter that patient ambulated 25ft contact guard, daughter denies need for therapy at [place]. Daughter states the plan is for patient to return to [facility] at discharge and she is able to provide transportation at discharge. Daughter states that patient has home oxygen through [employer] and is able to bring portable tank from home. Patient daughter had no further questions or concerns. SHANTELL REYNAGA updated DC Mosaic Technician to send updated to [facility]. CM will continue to follow this patient and plan for a safe discharge.
--- NOTE | 2024-08-23 14:25 | CASEMGMT ---
Addendum entered by Inna Elizabeth 08/23/24 15:51: Per [facility], they have no concerns with pt returning to [place]. RN CM updated. Inna Elizabeth DC Planning Asst. Original Note: Discharge Planning Updates sent to [facility] [place]. Inna Elizabeth DC Planning Asst.
--- NOTE | 2024-08-23 14:30 | CASEMGMT ---
Met with patient to complete COBIAN form. COBIAN form and its content were verbally explained and patient's questions were answered to the best of my ability.? Patient voiced understanding and signed COBIAN form.? Patient provided a copy of signed COBIAN form and original placed in patient's chart.? Patient had no further questions. Inna Elizabeth, Discharge Planning Asst
[2024-08-23 16:31] LABS: Mucous, Urine 0 SEEN /hpf (<or=2+)
[2024-08-23 16:40] LABS: Color, Urine Yellow (Yellow); Glucose, Dipstick Normal (Normal); Ketone-Dipstick 5 mg/dl (Negative); Leukocyte Esterase-Dipstick Negative /ul (Negative); Nitrite-Dipstick Negative (Negative); Occult Blood-Urine Negative /ul (Negative); Protein-Dipstick 15 mg/dl (Negative); Specific Gravity, Urine 1.015 (1.002-1.030); Urine Bilirubin Dipstick Negative (Negative)
[2024-08-23 17:58] LABS: Red Blood Cells-Urine 0-5 SEEN /hpf (0-5); Squamous Epithelial Cells - UA 5-10 SEEN /hpf (5-10); Triple Phosphate Crystals Ur K5 /hpf (<or=1+)
[2024-08-23] MEDS: Budesonide Respules 0.5 MG/2 ML AMPUL.NEB. INHALATION (20:01)
[2024-08-23] MEDS: MELATONIN 10 MG TABLET PO (22:42)
[2024-08-24] VITALS (11 sets, daily range): BP systolic 123–150; BP diastolic 79–106; PULSE 75–90; RESP 14–24; TEMP 35.8–36.8; O2SAT 92–99; BMI 17.4
--- NOTE | 2024-08-24 07:27 | PCM.PN.INT ---
Assessment & Plan Assessment/Plan (1) COPD exacerbation: PLAN: Plan RECOMMENDATIONS: 1. Continue PAP therapy, if needed, for increased work of breathing. 2. Supplemental oxygen to maintain saturations at or above 90%. 3. Continue scheduled bronchodilators and steroids. 4. Lovenox for DVT prophylaxis. 5. Encourage incentive spirometer use and mobilize patient as tolerated. IMPRESSIONS: 1. Acute combined respiratory failure secondary to COPD exacerbation due to human metapneumovirus The patient has a known history of advanced stage COPD on triple therapy inhaler regimen. She appears to be experiencing an acute exacerbation of her COPD secondary to human metapneumovirus infection. At this time, I agree with continuing supportive care including scheduled bronchodilators and steroids. PAP therapy can be utilized, if needed, for increased work of breathing. The patient appears to be slowly improving from a clinical perspective. CODE STATUS again confirmed to be DNR CCA without intubation. 2. 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 Continue home medications as indicated. This note was generated with [employer] dictation software. It may contain incorrect words, spelling, and punctuation that were not noted in checking the note before signing. Subjective Subjective The patient was seen and examined at the bedside this morning. Events from the last 24 hours have been reviewed. The patient is currently afebrile, hemodynamically stable and maintaining appropriate oxygen saturations on 3 L/min via nasal cannula. The patient reported that she is feeling much better from a breathing perspective than yesterday. Objective Data Objective Data The patient's most recent lab work, culture data and imaging studies have all been personally reviewed. Respiratory viral panel was positive for human metapneumovirus. Vital Signs: Vital Signs Temp Pulse Resp BP Pulse Ox O2 Del Method O2 Flow Rate 97.6 F L 82 18 142/104 H 94 Nasal Cannula 3 08/24/24 03:25 08/24/24 03:25 08/24/24 03:25 08/24/24 03:25 08/24/24 03:25 08/24/24 03:25 08/24/24 03:25 FiO2 30 08/23/24 09:34 Oxygen Flow Rate (L/min) 3 Oxygen Delivery Method Nasal Cannula Weight: 92 lb 2.452 oz Body Mass Index (BMI) 17.4 Intake & Output: Intake and Output for Last 24 Hours 08/22/24 08/23/24 08/24/24 23:59 23:59 23:59 Intake Total 650 / 650 1720 / 1720 Balance 650 / 650 1720 / 1720 Lab / Micro Data Attestation: I reviewed the patient's lab results. 08/23/24 05:52 08/23/24 05:52 Labs: Laboratory Results - last 24 hr 08/23/24 05:52: Differential Comment SCANNED, Sodium 136, Potassium 3.7, Chloride 97 L, Carbon Dioxide 24.0, Anion Gap 15, BUN 27 H, Creatinine 0.79, Estim Creat Clear Calc 34.32 L, Est GFR (MDRD) Non-Af 75, BUN/Creatinine Ratio 34.5 H, Glucose 129 H, Calcium 8.3, Phosphorus 3.2, Total Bilirubin 0.52, AST 54 H, ALT 42 H, Alkaline Phosphatase 113 H, Total Protein 5.9, Albumin 3.7, Globulin 2.2, Albumin/Globulin Ratio 1.7, TSH 3.560 08/23/24 12:50: Urine Color Yellow, Urine Clarity Clear, Urine pH 6.0, Ur Specific [place] 1.015, U Specif Grav (Refrac) VEGETABLE THINNER, Urine Protein 15 H, Urine Glucose (UA) Normal, Urine Ketones 5 H, Urine Occult Blood Negative, Urine Nitrite Negative, Urine Bilirubin Negative, Urine Urobilinogen Normal, Ur Leukocyte Esterase Negative, Urine RBC 0-5 SEEN, Urine WBC 0-5 SEEN, Ur Squamous Epith Cells 5-10 SEEN, Ur Transition Epith Cell VEGETABLE THINNER, Ur Renal Epithelial Cell VEGETABLE THINNER, Calcium Oxalate Crystal VEGETABLE THINNER, Uric Acid Crystals VEGETABLE THINNER, Triple Phos Crystals K5, Other Crystals VEGETABLE THINNER, Amorphous Sediment VEGETABLE THINNER, Urine Bacteria 0 SEEN, Hyaline Casts VEGETABLE THINNER, Fine Granular Casts VEGETABLE THINNER, Coarse Granular Casts VEGETABLE THINNER, Waxy Casts VEGETABLE THINNER, RBC Casts VEGETABLE THINNER, WBC Casts VEGETABLE THINNER, Urine Mucus 0 SEEN, Urine Trichomonas VEGETABLE THINNER, Urine Yeast VEGETABLE THINNER 08/24/24 05:00: Phosphorus 2.8 Micro: Microbiology 08/23/24 12:50 Urine, Clean Catch Legionella Antigen - Final 08/23/24 12:50 Urine, Clean Catch Streptococcus pneumoniae Antigen (M - Final 08/22/24 20:48 Mucosa - Nose Respiratory Panel (PCR) - Final Human [place] 08/22/24 17:38 Mucosa - Nose SARS-CoV-2, Influenza & RSV (PCR) - Final ABG Data ABG results: ABG 08/23/24 08:21 Specimen Type NAHOMY Sample Site Not entered VBG pH 7.31 L VBG pO2 53 H VBG HCO3 31 H VBG Total CO2 33 VBG O2 Sat (Calc) 82 H VBG Base Excess 5 H POC Mix VBG pCO2 Pt Tmp 61.3 H O2 Delivery Device Not entered Radiography Diagnostic Testing: Radiology Impression Echocardiogram 08/23/24 06:16 Interpretation Summary The estimated ejection fraction is 60???65 %. Posterior mitral valve prolapse Mild MR. Grade 1 diastolic dysfunction. Mild tricuspid regurgitation No significant difference from previous echocardiogram. Ordering Physician: Naeem Barnett Referring Physician: Donnell Tse Performed By: Kisha Ayala, OSIRIS, RVT Physical Exam Const alert, oriented x3 and no apparent distress General Appearance: cooperative and frail HEENT normocephalic and head/scalp atraumatic Eyes PERRL, EOMs intact bilaterally and conjunctivae normal Neck supple General: trachea midline Chest inspection of chest normal Resp normal respiratory effort and no use of accessory muscles Auscultation: wheezes and diminished lung sounds Cardio regular rate and regular rhythm GI normal to inspection, nondistended, normoactive bowel sounds Extremity no clubbing, cyanosis or edema Skin no rashes or lesions noted Neuro CN's II-XII intact bilaterally, moves all extremities and no focal motor deficits Psych cooperative and affect normal Charges/Coding Visit Charges Inpatient E&M: 92319 Subs Hosp L2
[2024-08-24] MEDS: Budesonide Respules 0.5 MG/2 ML AMPUL.NEB. INHALATION (07:44)
--- NOTE | 2024-08-24 08:37 | PCM.PN.HOSP ---
Reason for Visit Reason for Visit: Diagnoses Elevated white blood cell count, unspecified (08/22/24) Essential (primary) hypertension (08/22/24) Nonrheumatic mitral (valve) insufficiency (08/22/24) Nonrheumatic tricuspid (valve) insufficiency (08/22/24) Pneumonia, unspecified organism (08/22/24) Chronic obstructive pulmonary disease with (acute) exacerbation (08/22/24) Acute respiratory failure, unspecified whether with hypoxia or hypercapnia (08/22/24) Acute respiratory failure with hypoxia (08/22/24) Other abnormalities of breathing (08/22/24) Objective Data Objective Data Vital Signs: Vital Signs Temp Pulse Resp BP Pulse Ox O2 Del Method O2 Flow Rate 97.6 F L 75 20 H 142/104 H 93 Nasal Cannula 2 08/24/24 03:25 08/24/24 07:46 08/24/24 07:46 08/24/24 03:25 08/24/24 07:46 08/24/24 07:46 08/24/24 07:46 FiO2 30 08/23/24 09:34 Oxygen Flow Rate (L/min) 2 Oxygen Delivery Method Nasal Cannula Weight: 92 lb 2.452 oz Body Mass Index (BMI) 17.4 Intake & Output: Intake and Output for Last 24 Hours 08/22/24 08/23/24 08/24/24 23:59 23:59 23:59 Intake Total 650 / 650 1720 / 1720 Balance 650 / 650 1720 / 1720 Lab / Micro Data 08/23/24 05:52 08/23/24 05:52 Labs: Laboratory Results - last 24 hr 08/23/24 05:52: Differential Comment SCANNED 08/23/24 12:50: Urine Color Yellow, Urine Clarity Clear, Urine pH 6.0, Ur Specific [place] 1.015, U Specif Grav (Refrac) HEADEND TECHNICIAN, Urine Protein 15 H, Urine Glucose (UA) Normal, Urine Ketones 5 H, Urine Occult Blood Negative, Urine Nitrite Negative, Urine Bilirubin Negative, Urine Urobilinogen Normal, Ur Leukocyte Esterase Negative, Urine RBC 0-5 SEEN, Urine WBC 0-5 SEEN, Ur Squamous Epith Cells 5-10 SEEN, Ur Transition Epith Cell HEADEND TECHNICIAN, Ur Renal Epithelial Cell HEADEND TECHNICIAN, Calcium Oxalate Crystal HEADEND TECHNICIAN, Uric Acid Crystals HEADEND TECHNICIAN, Triple Phos Crystals K5, Other Crystals HEADEND TECHNICIAN, Amorphous Sediment HEADEND TECHNICIAN, Urine Bacteria 0 SEEN, Hyaline Casts HEADEND TECHNICIAN, Fine Granular Casts HEADEND TECHNICIAN, Coarse Granular Casts HEADEND TECHNICIAN, Waxy Casts HEADEND TECHNICIAN, RBC Casts HEADEND TECHNICIAN, WBC Casts HEADEND TECHNICIAN, Urine Mucus 0 SEEN, Urine Trichomonas HEADEND TECHNICIAN, Urine Yeast HEADEND TECHNICIAN 08/24/24 05:00: Phosphorus 2.8 Micro: Microbiology 08/23/24 12:50 Urine, Clean Catch Legionella Antigen - Final 08/23/24 12:50 Urine, Clean Catch Streptococcus pneumoniae Antigen (M - Final 08/22/24 20:48 Mucosa - Nose Respiratory Panel (PCR) - Final Human [place] 08/22/24 17:38 Mucosa - Nose SARS-CoV-2, Influenza & RSV (PCR) - Final Radiography Diagnostic Testing: Radiology Impression Echocardiogram 08/23/24 06:16 Interpretation Summary The estimated ejection fraction is 60???65 %. Posterior mitral valve prolapse Mild MR. Grade 1 diastolic dysfunction. Mild tricuspid regurgitation No significant difference from previous echocardiogram. Ordering Physician: Naeem Barnett Referring Physician: Donnell Tse Performed By: Kisha Ayala, RDCS, RVT Physical Exam Narrative Seen and examined Shortness of breath and cough is better but is still she gets short of breath even going to bathroom. Admitted with shortness of breath and cough for 5 days and hypoxia. Afebrile advanced COPD/emphysema, COPD Physical exam General: Alert, Oriented x3, Cooperative. BMI 17.4 kg per square HEENT: Atraumatic, PERRLA, EOMI, Normocephalic. Oral: No Gingival or Mucosal Lesions/ Ulcerations Neck: Supple, No JVD, Negative Carotid Bruits Chest wall/Lungs: Air entry diminished in all lung benietz. Mild fine expiratory rhonchi. Cardiovascular: Regular rate and rhythm, Normal S1,S2, No M/G/R Abdomen: Bowel Sounds Present, Soft, Non Tender, Non-Distended : No dysuria. No renal angle tenderness. No suprapubic tenderness. Extremities: No edema, Capillary Refill Less than 3 Seconds Skin: No rashes, No breakdown Musculoskeletal: No Tenderness to Palpation of Joints or Extremities. Moderate atrophy of muscles of extremities, paravertebral muscles and craniofacial muscles, chronic moderate protein calorie malnutrition Neurological: Cranial nerves II-XII grossly intact, DTR 2+/4. No acute focal neurological deficit. Psych/Mental Status: Flat affect Assessment & Plan Assessment/Plan (1) COPD exacerbation: (2) Pneumonia: QUALIFIERS: Laterality: left Lung location: lower lobe of lung Pneumonia type: due to unspecified organism Qualified Code(s): J18.9 - Pneumonia, unspecified organism (3) Leukocytosis: QUALIFIERS: Leukocytosis type: unspecified Qualified Code(s): D72.829 - Elevated white blood cell count, unspecified (4) Acute respiratory failure: QUALIFIERS: Respiratory failure complication: hypoxia Qualified Code(s): J96.01 - Acute respiratory failure with hypoxia (5) Nonrheumatic mitral valve regurgitation: (6) Nonrheumatic tricuspid valve regurgitation: (7) Essential hypertension: PLAN: Plan 84-year-old female admitted with Shortness of breath, URI symptoms and cough for past several days with history of COPD. At urgent care pulse ox was 88% therefore sent to ED. On 3 L of oxygen at night only. History of [id number] smoking quit completely at the age of 47. 1. Acute hypercarbic on chronic hypoxic respiratory failure due to acute exacerbation of COPD probably due to metapneumovirus bronchitis: Patient is being admitted in PCU. VBG 7.52/mixed pCO2 33, total CO2 28. ABG looks more compensated 7.44/40.8/87 on 2 L of oxygen. Next VBG 7.31/max. CO2 61.3. Respiratory panel positive for human metapneumovirus. Urinary antigens are negative. Triple PCR for SARS-CoV-2, flu and RSV are negative. Chest x-ray initially reviewed and shows flattening of diaphragm, hyperlucent and hyperinflated/air trapping. Patient had chest CT without contrast small area of nodular densities in posterior aspect left lower lobe and pleural-based spiculated density favoring scarring in posterior right lower lobe. Severe emphysema bilateral linear atelectasis. No effusion or pneumothorax. Patient is being managed on scheduled bronchodilator, IV Solu-Medrol, Mucinex, incentive spirometry and Pep.She is not able to tolerate BiPAP and therefore low-dose IV Ativan 0.25 mg ordered and Seroquel 25 mg twice daily. Will monitor consult requested 08/24: Patient currently on 3 L of oxygen. Patient has improvement in shortness of breath but is still dyspnea on mild exertion. Continue without treatment. Patient's daughter asked about prognosis and hospice care. Advised to follow with Dr. Antunez for COPD prognostication. In my opinion, she has stage IV COPD. PFT in August 2019 showed irreversible moderately severe large airway obstruction ventilatory defect with associated hyperinflation and air trapping. At that time, 6-minute walk test showed that she needed 2 L of supplemental oxygen with exertion. No FEV1 documented. In the past had also completed pulmonary rehab. No current PFT. I think this current exacerbation is due to metapneumovirus therefore I do not think she is hospice appropriate. I advised the daughter that palliative consult would be appropriate but she would like to follow-up as an outpatient and declined the inpatient palliative offer. 2. Acute hypercarbic on chronic hypoxic respiratory failure due to COPD exacerbation as mentioned. The patient's daughter said she had bleeding in the lung and had to put a stent about 20 years ago, exact mechanism and college unclear and procedure 3. History of nonrheumatic mitral/tricuspid valve regurgitation -2D echo is being done 4. Essential hypertension; on triamterene-hydrochlorothiazide Home medication current 5. History of Hodgkin's lymphoma/CLL, CML?: Follows [facility] oncologist Dr. 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 Mild cognitive impairment; on rivastigmine twice daily - Continue rivastigmine as previous. History of breast cancer; s/p bilateral mastectomy (1982) with breast reconstruction (2015) - Noted. Chronic constipation - Give laxatives prn. History of thrush; on oral fluconazole, changed to oral nystatin swish and swallow as patient is on Seroquel to avoid QT prolongation adverse effect Degenerative arthritiscervicalgia and Left shoulder pain - Give acetaminophen as needed DVT/GI prophylaxis - Enoxaparin 40 mg sq daily plus SCD's. Give pantoprazole 40 mg daily Total time of the visit including total time spent in counseling or coordination of care, (more than 50% of the total time, spent in obtaining medical information from nurses and other ancillary care providers ,explaining to the patient about labs, imaging, diagnosis and management of active complex medical conditions), , review of labs and imaging is 35 minutes. Microbiology Past 72 Hours 08/23/24 12:50 Urine, Clean Catch Legionella Antigen - Final 08/23/24 12:50 Urine, Clean Catch Streptococcus pneumoniae Antigen (M - Final 08/22/24 20:48 Mucosa - Nose Respiratory Panel (PCR) - Final Human [place] 08/22/24 17:38 Mucosa - Nose SARS-CoV-2, Influenza & RSV (PCR) - Final Laboratory Results 08/23/24 12:50: Urine Color Yellow, Urine Clarity Clear, Urine pH 6.0, Ur Specific [place] 1.015, U Specif Grav (Refrac) HEADEND TECHNICIAN, Urine Protein 15 H, Urine Glucose (UA) Normal, Urine Ketones 5 H, Urine Occult Blood Negative, Urine Nitrite Negative, Urine Bilirubin Negative, Urine Urobilinogen Normal, Ur Leukocyte Esterase Negative, Urine RBC 0-5 SEEN, Urine WBC 0-5 SEEN, Ur Squamous Epith Cells 5-10 SEEN, Ur Transition Epith Cell HEADEND TECHNICIAN, Ur Renal Epithelial Cell HEADEND TECHNICIAN, Calcium Oxalate Crystal HEADEND TECHNICIAN, Uric Acid Crystals HEADEND TECHNICIAN, Triple Phos Crystals K5, Other Crystals HEADEND TECHNICIAN, Amorphous Sediment HEADEND TECHNICIAN, Urine Bacteria 0 SEEN, Hyaline Casts HEADEND TECHNICIAN, Fine Granular Casts HEADEND TECHNICIAN, Coarse Granular Casts HEADEND TECHNICIAN, Waxy Casts HEADEND TECHNICIAN, RBC Casts HEADEND TECHNICIAN, WBC Casts HEADEND TECHNICIAN, Urine Mucus 0 SEEN, Urine Trichomonas HEADEND TECHNICIAN, Urine Yeast HEADEND TECHNICIAN 08/24/24 05:00: Phosphorus 2.8 08/23/24 01:36: Specimen Type ART, Sample Site L Radial, pH 7.44, Bicarbonate Actual 27.5 H, Total CO2 29, Base Excess 3 H, O2 Saturation 97, O2 % 2.0, ABG pCO2 40.8, ABG pO2 87, Sujit Test Positive, O2 Delivery Device Cannula, Vent Mode Not entered 08/23/24 05:52: WBC 9.2, RBC 4.88, Hgb 14.3, Hct 42.3, MCV 86.7, MCH 29.3, MCHC 33.8, RDW Std Deviation 45.9 H, RDW Coeff of [place] 14.4, Plt Count 129 L, MPV 13.0 H, Immature Gran % (Auto) 0.400, Neut % (Auto) 42.0 L, Lymph % (Auto) 51.0 H, [place] % (Auto) 6.5, Eos % (Auto) 0.0, Baso % (Auto) 0.1, Absolute Neuts (auto) 3.9, Absolute Lymphs (auto) 4.70 H, Nucleated RBC % 0, Differential Comment SCANNED, Sodium 136, Potassium 3.7, Chloride 97 L, Carbon Dioxide 24.0, Anion Gap 15, BUN 27 H, Creatinine 0.79, Estim Creat Clear Calc 34.32 L, Est GFR (MDRD) Non-Af 75, BUN/Creatinine Ratio 34.5 H, Glucose 129 H, Calcium 8.3, Phosphorus 3.2, Total Bilirubin 0.52, AST 54 H, ALT 42 H, Alkaline Phosphatase 113 H, Total Protein 5.9, Albumin 3.7, Globulin 2.2, Albumin/Globulin Ratio 1.7, TSH 3.560 08/23/24 08:21: Specimen Type NAHOMY, Sample Site Not entered, VBG pH 7.31 L, VBG pO2 53 H, VBG HCO3 31 H, VBG Total CO2 33, VBG O2 Sat (Calc) 82 H, VBG Base Excess 5 H, POC Mix VBG pCO2 Pt Tmp 61.3 H, O2 Delivery Device Not entered Clinical Impression(s) from Imaging Studies Chest X-Ray 08/22/24 17:17 IMPRESSION: Overlying dense breasts limits evaluation of underlying bilateral lower lobes. Focal consolidations within the bilateral lower lobes not excluded. Hyperinflated lungs may reflect COPD. Reading Location: [id number] Chest CT 08/22/24 23:20 IMPRESSION: In the posterior aspect of the left lower lobe, there is a small area of nodular densities possibly infectious in etiology. In the posterior right lower lobe, there is a pleural-based spiculated density, not present previously, favoring scarring. Lung nodule not excluded. Recommend three-month follow up imaging. Reading Location: [place] [address] Charges/Coding Addendum Addendum: Total time of the visit including total time spent in counseling or coordination of care, (more than 50% of the total time, spent in obtaining medical information from nurses and other ancillary care providers ,explaining to the patient about labs, imaging, diagnosis and management of active complex medical conditions), discussion with the patient's daughter and fuel cell designer, review of labs and imaging is 35 minutes. Visit Charges Inpatient E&M: [id number] [facility] L3
[2024-08-24] MEDS: Triamterene 37.5MG/Hctz 25MG Capsule 1 CAP PO (09:27)
[2024-08-24] MEDS: guaiFENesin/D-Methorphan TAB.SR.12H 2 TABLET PO ×2 (09:27→21:10)
[2024-08-24] MEDS: Aspirin E.C. 81 MG Tablet PO (09:27)
[2024-08-24] MEDS: Lactobacillis Acidophilus 1 CAP PO ×3 (09:27→21:09)
[2024-08-24] MEDS: Lidocaine 5% Patch 1 PATCH TOPICAL (09:27)
[2024-08-24] MEDS: NYSTATIN 500,000 UNIT/5 ML UDC 500000 UNIT PO ×3 (09:28→21:09)
[2024-08-24] MEDS: 0.9% Saline Lock 10 ML Syringe IV (21:26)
[2024-08-24] MEDS: MELATONIN 10 MG TABLET PO (23:21)
[2024-08-25] VITALS (10 sets, daily range): BP systolic 127–153; BP diastolic 87–107; PULSE 76–99; RESP 14–26; TEMP 36.3–36.9; O2SAT 93–98; BMI 17.2
[2024-08-25 04:35] LABS: Hematocrit 42.3 % (37-47); Hemoglobin 14.5 g/dL (12.0-15.0); Immature Granulocytes Count 0.100 X10^3/uL (0.0-0.0); Mean Corp Hgb Conc 34.3 g/dL (32-36); Mean Corpuscular Volume 86.0 fL (81-99); Mean Platelet Vol. 13.5 fl (6.2-12.0); NRBC Flagged by Analyzer 0 % (0-5); POSITIVE DIFFERENTIAL YES; Platelet Count 125 K/mm3 (150-450); RBC Distribution Width CV 14.0 % (11.6-14.6); RBC Distribution Width SD 43.8 fl (35.1-43.9); Red Blood Count 4.92 M/mm3 (4.2-5.4); White Blood Count 17.0 K/mm3 (4.4-11.0)
[2024-08-25 04:37] LABS: Differential Indicated SCAN CRITERIA MET
[2024-08-25] MEDS: 0.9% Saline Lock 10 ML Syringe IV ×3 (05:49→23:14)
--- NOTE | 2024-08-25 06:59 | PCM.PN.INT ---
Assessment & Plan Assessment/Plan (1) COPD exacerbation: PLAN: Plan RECOMMENDATIONS: 1. Continue intermittent use of PAP therapy, if needed. 2. Supplemental oxygen to maintain saturations at or above 90%. 3. Continue scheduled bronchodilators and IV steroids. 4. Lovenox for DVT prophylaxis. 5. Encourage incentive spirometer use and mobilize patient as tolerated. 6. Start scheduled BuSpar today to assist with anxiety management. IMPRESSIONS: 1. Acute combined respiratory failure secondary to COPD exacerbation due to human metapneumovirus The patient has a known history of advanced stage COPD on triple therapy inhaler regimen. She appears to be experiencing an acute exacerbation of her COPD secondary to human metapneumovirus infection. At this time, I agree with continuing supportive care including scheduled bronchodilators and steroids. PAP therapy can be utilized, if needed, for increased work of breathing. The patient appears to be slowly improving from a clinical perspective. CODE STATUS again confirmed to be DNR CCA without intubation. BuSpar will be started today to assist with management of the patient's underlying anxiety. 2. 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 Continue home medications as indicated. This note was generated with [employer] dictation software. It may contain incorrect words, spelling, and punctuation that were not noted in checking the note before signing. Subjective Subjective The patient was seen and examined at the bedside this morning. Events from the last 24 hours have been reviewed. The patient is currently afebrile, hemodynamically stable and maintaining appropriate oxygen saturations on 4 L/min via nasal cannula. The patient tolerated PAP therapy overnight. She does report a great deal of anxiety this morning. White blood cell count is elevated at 17,000. Objective Data Objective Data The patient's most recent lab work, culture data and imaging studies have all been personally reviewed. Respiratory viral panel was positive for human metapneumovirus. Vital Signs: Vital Signs Temp Pulse Resp BP Pulse Ox O2 Del Method O2 Flow Rate 97.4 F L 79 20 H 127/92 H 96 Bi-pap 4 08/25/24 05:43 08/25/24 05:43 08/25/24 05:43 08/25/24 05:43 08/25/24 05:43 08/25/24 05:43 08/24/24 23:15 FiO2 30 08/25/24 03:00 Oxygen Flow Rate (L/min) 4 Oxygen Delivery Method Bi-pap Weight: 90 lb 13.287 oz Body Mass Index (BMI) 17.2 Intake & Output: Intake and Output for Last 24 Hours 08/23/24 08/24/24 08/25/24 23:59 23:59 23:59 Intake Total 1720 / 1720 480 / 480 Balance 1720 / 1720 480 / 480 Lab / Micro Data Attestation: I reviewed the patient's lab results. 08/25/24 03:30 08/23/24 05:52 Labs: Laboratory Results - last 24 hr 08/25/24 03:30: WBC 17.0 H, RBC 4.92, Hgb 14.5, Hct 42.3, MCV 86.0, MCH 29.5, MCHC 34.3, RDW Std Deviation 43.8, RDW Coeff of [place] 14.0, Plt Count 125 L, MPV 13.5 H, Immature Gran % (Auto) 0.600, Neut % (Auto) 57.2, Lymph % (Auto) 37.1, [place] % (Auto) 4.9, Eos % (Auto) 0.1, Baso % (Auto) 0.1, Absolute Neuts (auto) 9.7 H, Absolute Lymphs (auto) 6.33 H, Nucleated RBC % 0, Differential Comment COMMENT Micro: Microbiology 08/23/24 12:50 Urine, Clean Catch Legionella Antigen - Final 08/23/24 12:50 Urine, Clean Catch Streptococcus pneumoniae Antigen (M - Final 08/22/24 20:48 Mucosa - Nose Respiratory Panel (PCR) - Final Human [place] 08/22/24 17:38 Mucosa - Nose SARS-CoV-2, Influenza & RSV (PCR) - Final ABG Data ABG results: ABG 08/23/24 08:21 Specimen Type NAHOMY Sample Site Not entered VBG pH 7.31 L VBG pO2 53 H VBG HCO3 31 H VBG Total CO2 33 VBG O2 Sat (Calc) 82 H VBG Base Excess 5 H POC Mix VBG pCO2 Pt Tmp 61.3 H O2 Delivery Device Not entered Radiography Diagnostic Testing: Radiology Impression Echocardiogram 08/23/24 06:16 Interpretation Summary The estimated ejection fraction is 60???65 %. Posterior mitral valve prolapse Mild MR. Grade 1 diastolic dysfunction. Mild tricuspid regurgitation No significant difference from previous echocardiogram. Ordering Physician: Naeem Barnett Referring Physician: Donnell Tse Performed By: Kisha Ayala RDCS, RVT Physical Exam Const alert and oriented x3 General Appearance: cooperative and frail HEENT normocephalic and head/scalp atraumatic Eyes PERRL, EOMs intact bilaterally and conjunctivae normal Neck supple General: trachea midline Chest inspection of chest normal Resp no use of accessory muscles Effort and Inspection: tachypneic Auscultation: wheezes and diminished lung sounds Cardio regular rate and regular rhythm GI normal to inspection, nondistended, normoactive bowel sounds Extremity no clubbing, cyanosis or edema Skin no rashes or lesions noted Neuro CN's II-XII intact bilaterally, moves all extremities and no focal motor deficits Psych Mood & Affect: anxious Charges/Coding Visit Charges Inpatient E&M: 35819 Subs Hosp L2
[2024-08-25] MEDS: Budesonide Respules 0.5 MG/2 ML AMPUL.NEB. INHALATION (07:19)
--- NOTE | 2024-08-25 07:44 | PN.HOSP_ITS ---
Reason for Visit Reason for Visit: Diagnoses Elevated white blood cell count, unspecified (08/22/24) Essential (primary) hypertension (08/22/24) Nonrheumatic mitral (valve) insufficiency (08/22/24) Nonrheumatic tricuspid (valve) insufficiency (08/22/24) Pneumonia, unspecified organism (08/22/24) Chronic obstructive pulmonary disease with (acute) exacerbation (08/22/24) Acute respiratory failure, unspecified whether with hypoxia or hypercapnia (08/22/24) Acute respiratory failure with hypoxia (08/22/24) Other abnormalities of breathing (08/22/24) Objective Data Objective Data Vital Signs: Vital Signs Temp Pulse Resp BP Pulse Ox O2 Del Method O2 Flow Rate 98.4 F 97 24 H 153/87 H 94 Nasal Cannula 4 08/25/24 07:35 08/25/24 07:35 08/25/24 07:35 08/25/24 07:35 08/25/24 07:35 08/25/24 07:35 08/25/24 07:35 FiO2 30 08/25/24 03:00 Oxygen Flow Rate (L/min) 4 Oxygen Delivery Method Nasal Cannula Weight: 90 lb 13.287 oz Body Mass Index (BMI) 17.2 Intake & Output: Intake and Output for Last 24 Hours 08/23/24 08/24/24 08/25/24 23:59 23:59 23:59 Intake Total 1720 / 1720 480 / 480 Balance 1720 / 1720 480 / 480 Lab / Micro Data 08/25/24 03:30 08/23/24 05:52 Labs: Laboratory Results - last 24 hr 08/25/24 03:30: WBC 17.0 H, RBC 4.92, Hgb 14.5, Hct 42.3, MCV 86.0, MCH 29.5, MCHC 34.3, RDW Std Deviation 43.8, RDW Coeff of Anderson 14.0, Plt Count 125 L, MPV 13.5 H, Immature Gran % (Auto) 0.600, Neut % (Auto) 57.2, Lymph % (Auto) 37.1, [place] % (Auto) 4.9, Eos % (Auto) 0.1, Baso % (Auto) 0.1, Absolute Neuts (auto) 9.7 H, Absolute Lymphs (auto) 6.33 H, Nucleated RBC % 0, Differential Comment COMMENT Micro: Microbiology 08/23/24 12:50 Urine, Clean Catch Legionella Antigen - Final 08/23/24 12:50 Urine, Clean Catch Streptococcus pneumoniae Antigen (M - Final 08/22/24 20:48 Mucosa - Nose Respiratory Panel (PCR) - Final Human [place] 08/22/24 17:38 Mucosa - Nose SARS-CoV-2, Influenza & RSV (PCR) - Final Physical Exam Narrative Seen and examined Shortness of breath and cough is better but still dyspnea of exertion on mild exertion Admitted with shortness of breath and cough for 5 days and hypoxia. Afebrile advanced COPD/emphysema, COPD Physical exam General: Alert, Oriented x3, Cooperative. BMI 17.4 kg per square HEENT: Atraumatic, PERRLA, EOMI, Normocephalic. Oral: No Gingival or Mucosal Lesions/ Ulcerations Neck: Supple, No JVD, Negative Carotid Bruits Chest wall/Lungs: Air entry diminished in all lung benitez. Mild fine expiratory rhonchi. Cardiovascular: Regular rate and rhythm, Normal S1,S2, No M/G/R Abdomen: Bowel Sounds Present, Soft, Non Tender, Non-Distended : No dysuria. No renal angle tenderness. No suprapubic tenderness. Extremities: No edema, Capillary Refill Less than 3 Seconds Skin: No rashes, No breakdown Musculoskeletal: No Tenderness to Palpation of Joints or Extremities. Moderate atrophy of muscles of extremities, paravertebral muscles and craniofacial muscles, chronic moderate protein calorie malnutrition Neurological: Cranial nerves II-XII grossly intact, DTR 2+/4. No acute focal neurological deficit. Psych/Mental Status: Flat affect Assessment & Plan Assessment/Plan (1) COPD exacerbation: (2) Pneumonia: QUALIFIERS: Laterality: left Lung location: lower lobe of lung P neumonia type: due to unspecified organism Qualified Code(s): J18.9 - Pneumonia, unspecified organism (3) Leukocytosis: QUALIFIERS: Leukocytosis type: unspecified Qualified Code(s): D 72.829 - Elevated white blood cell count, unspecified (4) Acute respiratory failure: QUALIFIERS: Respiratory failure complication: hypoxia Qualified Code(s): J96.01 - Acute respiratory failure with hypoxia (5) Nonrheumatic mitral valve regurgitation: (6) Nonrheumatic tricuspid valve regurgitation: (7) Essential hypertension: PLAN: Plan 84-year-old female admitted with Shortness of breath, URI symptoms and cough for past several days with history of COPD. At urgent care pulse ox was 88% therefore sent to ED. On 3 L of oxygen at night only. History of [id number] smoking quit completely at the age of 47. 1. Acute hypercarbic on chronic hypoxic respiratory failure due to acute exacerbation of COPD probably due to metapneumovirus bronchitis: Patient is being admitted in PCU. VBG 7.52/mixed pCO2 33, total CO2 28. ABG looks more compensated 7.44/40.8/87 on 2 L of oxygen. Next VBG 7.31/max. CO2 61.3. Respiratory panel positive for human metapneumovirus. Urinary antigens are negative. Triple PCR for SARS-CoV-2, flu and RSV are negative. Chest x-ray initially reviewed and shows flattening of diaphragm, hyperlucent and hyperinflated/air trapping. Patient had chest CT without contrast small area of nodular densities in posterior aspect left lower lobe and pleural-based spiculated density favoring scarring in posterior right lower lobe. Severe emphysema bilateral linear atelectasis. No effusion or pneumothorax. Patient is being managed on scheduled bronchodilator, IV Solu-Medrol, Mucinex, incentive spirometry and Pep.She is not able to tolerate BiPAP and therefore low-dose IV Ativan 0.25 mg ordered and Seroquel 25 mg twice daily. Will monitor consult requested 08/24: Patient currently on 3 L of oxygen. Patient has improvement in shortness of breath but is still dyspnea on mild exertion. Continue without treatment. Patient's daughter asked about prognosis and hospice care. Advised to follow with Dr. Antunez for COPD prognostication. In my opinion, she has stage IV COPD. PFT in August 2019 showed irreversible moderately severe large airway obstruction ventilatory defect with associated hyperinflation and air trapping. At that time, 6-minute walk test showed that she needed 2 L of supplemental oxygen with exertion. No FEV1 documented. In the past had also completed pulmonary rehab. No current PFT. I think this current exacerbation is due to metapneumovirus therefore I do not think she is hospice appropriate. I advised the daughter that palliative consult would be appropriate but she would like to follow-up as an outpatient and declined the inpatient palliative offer. 08/25: Pulmonary follow-up reviewed. Pulse ox 95% on 3 to 4 L of oxygen, RR 20- 24 /min, dyspnea on exertion. Continue same treatment. Patient leukocytosis had resolved but again went up due to marginalization from IV Solu-Medrol/ steroid effect 2. Acute hypercarbic on chronic hypoxic respiratory failure due to COPD exacerbation as mentioned. The patient's daughter said she had bleeding in the lung and had to put a stent about 20 years ago, exact mechanism, cause, and procedure unclear 3. History of nonrheumatic mitral/tricuspid valve regurgitation -2D echo is being done 4. Essential hypertension; on triamterene-hydrochlorothiazide Home medication current 5. History of Hodgkin's lymphoma/CLL, CML?: Follows [facility] oncologist Dr. 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 Mild cognitive impairment; on rivastigmine twice daily - Continue rivastigmine as previous. History of breast cancer; s/p bilateral mastectomy (1982) with breast reconstruction (2015) - Noted. Chronic constipation - Give laxatives prn. History of thrush; on oral fluconazole, changed to oral nystatin swish and swallow as patient is on Seroquel to avoid QT prolongation adverse effect Degenerative arthritiscervicalgia and Left shoulder pain - Give acetaminophen as needed DVT/GI prophylaxis - Enoxaparin 40 mg sq daily plus SCD's. Give pantoprazole 40 mg daily Total time of the visit including total time spent in counseling or coordination of care, (more than 50% of the total time, spent in obtaining medical information from nurses and other ancillary care providers ,explaining to the patient about labs, imaging, diagnosis and management of active complex medical conditions), , review of labs and imaging is 35 minutes. Microbiology Past 72 Hours 08/23/24 12:50 Urine, Clean Catch Urine Culture - Final Culture exhibits no growth. 08/23/24 12:50 Urine, Clean Catch Legionella Antigen - Final 08/23/24 12:50 Urine, Clean Catch Streptococcus pneumoniae Antigen (M - Final 08/22/24 20:48 Mucosa - Nose Respiratory Panel (PCR) - Final Human [place] 08/22/24 17:38 Mucosa - Nose SARS-CoV-2, Influenza & RSV (PCR) - Final Laboratory Results 08/25/24 03:30: WBC 17.0 H, RBC 4.92, Hgb 14.5, Hct 42.3, MCV 86.0, MCH 29.5, MCHC 34.3, RDW Std Deviation 43.8, RDW Coeff of Anderson 14.0, Plt Count 125 L, MPV 13.5 H, Immature Gran % (Auto) 0.600, Neut % (Auto) 57.2, Lymph % (Auto) 37.1, [place] % (Auto) 4.9, Eos % (Auto) 0.1, Baso % (Auto) 0.1, Absolute Neuts (auto) 9.7 H, Absolute Lymphs (auto) 6.33 H, Nucleated RBC % 0, Differential Comment COMMENT 08/23/24 08:21: Specimen Type NAHOMY, Sample Site Not entered, VBG pH 7.31 L, VBG pO2 53 H, VBG HCO3 31 H, VBG Total CO2 33, VBG O2 Sat (Calc) 82 H, VBG Base Excess 5 H, POC Mix VBG pCO2 Pt Tmp 61.3 H, O2 Delivery Device Not entered 08/25/24 03:30: WBC 17.0 H, RBC 4.92, Hgb 14.5, Hct 42.3, MCV 86.0, MCH 29.5, MCHC 34.3, RDW Std Deviation 43.8, RDW Coeff of Anderson 14.0, Plt Count 125 L, MPV 13.5 H, Immature Gran % (Auto) 0.600, Neut % (Auto) 57.2, Lymph % (Auto) 37.1, [place] % (Auto) 4.9, Eos % (Auto) 0.1, Baso % (Auto) 0.1, Absolute Neuts (auto) 9.7 H, Absolute Lymphs (auto) 6.33 H, Nucleated RBC % 0, Differential Comment COMMENT Clinical Impression(s) from Imaging Studies Chest X-Ray 08/22/24 17:17 IMPRESSION: Overlying dense breasts limits evaluation of underlying bilateral lower lobes. Focal consolidations within the bilateral lower lobes not excluded. Hyperinflated lungs may reflect COPD. Reading Location: [id number] Chest CT 08/22/24 23:20 IMPRESSION: In the posterior aspect of the left lower lobe, there is a small area of nodular densities possibly infectious in etiology. In the posterior right lower lobe, there is a pleural-based spiculated density, not present previously, favoring scarring. Lung nodule not excluded. Recommend three-month follow up imaging. Reading Location: [place] [address] Charges/Coding Visit Charges Inpatient E&M: 76497 Subs Hosp L2
[2024-08-25] MEDS: Lidocaine 5% Patch 1 PATCH TOPICAL (09:16)
[2024-08-25] MEDS: Aspirin E.C. 81 MG Tablet PO (09:16)
[2024-08-25] MEDS: NYSTATIN 500,000 UNIT/5 ML UDC 500000 UNIT PO ×4 (09:16→21:22)
[2024-08-25] MEDS: Triamterene 37.5MG/Hctz 25MG Capsule 1 CAP PO (09:16)
[2024-08-25] MEDS: Lactobacillis Acidophilus 1 CAP PO ×2 (09:16→21:21)
[2024-08-25] MEDS: guaiFENesin/D-Methorphan TAB.SR.12H 2 TABLET PO ×2 (09:27→21:21)
[2024-08-25] MEDS: MELATONIN 10 MG TABLET PO (21:22)
[2024-08-26] VITALS (14 sets, daily range): BP systolic 120–155; BP diastolic 86–104; PULSE 78–96; RESP 14–26; TEMP 36.4–36.8; O2SAT 92–96
[2024-08-26] MEDS: 0.9% Saline Lock 10 ML Syringe IV ×4 (05:02→23:02)
[2024-08-26 07:15] LABS: Anion Gap 11 (5-15); BUN 47 mg/dL (4-19); BUN/Creat Ratio 58.3 RATIO (10-20); Calcium,Total 8.6 mg/dL (7.6-11.0); Carbon Dioxide 24.9 mmol/L (21.0-32.0); Chloride 97 mmol/L (98-108); Estimated Creatinine Clearance 34.83 ml/min (50-250); Glucose 133 mg/dL (70-99); Potassium 4.6 mmol/L (3.3-5.1)
[2024-08-26] MEDS: NYSTATIN 500,000 UNIT/5 ML UDC 500000 UNIT PO ×3 (09:04→21:49)
[2024-08-26] MEDS: guaiFENesin/D-Methorphan TAB.SR.12H 2 TABLET PO ×2 (09:05→21:46)
[2024-08-26] MEDS: Lactobacillis Acidophilus 1 CAP PO ×3 (09:05→21:45)
[2024-08-26] MEDS: Aspirin E.C. 81 MG Tablet PO (09:05)
[2024-08-26] MEDS: Triamterene 37.5MG/Hctz 25MG Capsule 1 CAP PO (09:05)
--- NOTE | 2024-08-26 11:12 | PCM.PN.HOSP ---
Reason for Visit Reason for Visit: Diagnoses Elevated white blood cell count, unspecified (08/22/24) Essential (primary) hypertension (08/22/24) Nonrheumatic mitral (valve) insufficiency (08/22/24) Nonrheumatic tricuspid (valve) insufficiency (08/22/24) Pneumonia, unspecified organism (08/22/24) Chronic obstructive pulmonary disease with (acute) exacerbation (08/22/24) Acute respiratory failure, unspecified whether with hypoxia or hypercapnia (08/22/24) Acute respiratory failure with hypoxia (08/22/24) Other abnormalities of breathing (08/22/24) Objective Data Objective Data Vital Signs: Vital Signs Temp Pulse Resp BP Pulse Ox O2 Del Method O2 Flow Rate 98.2 F 78 20 H 120/86 H 96 Nasal Cannula 3 08/26/24 09:03 08/26/24 09:03 08/26/24 09:03 08/26/24 09:03 08/26/24 10:38 08/26/24 09:37 08/26/24 10:38 FiO2 93 08/26/24 09:37 Oxygen Flow Rate (L/min) 3 Oxygen Delivery Method Nasal Cannula Weight: 90 lb 13.287 oz Body Mass Index (BMI) 17.2 Intake & Output: Intake and Output for Last 24 Hours 08/24/24 08/25/24 08/26/24 23:59 23:59 23:59 Intake Total 480 / 480 720 / 720 100 / 100 Balance 480 / 480 720 / 720 100 / 100 Lab / Micro Data 08/25/24 03:30 08/26/24 05:14 Labs: Laboratory Results - last 24 hr 08/26/24 05:14: Sodium 133, Potassium 4.6, Chloride 97 L, Carbon Dioxide 24.9, Anion Gap 11, BUN 47 H, Creatinine 0.81, Estim Creat Clear Calc 34.83 L, Est GFR (MDRD) Non-Af 73, BUN/Creatinine Ratio 58.3 H, Glucose 133 H, Calcium 8.6 Micro: Microbiology 08/23/24 12:50 Urine, Clean Catch Urine Culture - Final Culture exhibits no growth. 08/23/24 12:50 Urine, Clean Catch Legionella Antigen - Final 08/23/24 12:50 Urine, Clean Catch Streptococcus pneumoniae Antigen (M - Final 08/22/24 20:48 Mucosa - Nose Respiratory Panel (PCR) - Final Human [place] 08/22/24 17:38 Mucosa - Nose SARS-CoV-2, Influenza & RSV (PCR) - Final Physical Exam Narrative Seen and examined Patient is feeling better with regards to shortness of breath and dyspnea of exertion. She can go to bathroom without dyspnea. No fever. Admitted with shortness of breath and cough for 5 days and hypoxia. Afebrile advanced COPD/emphysema, COPD Physical exam General: Alert, Oriented x3, Cooperative. BMI 17.4 kg per square HEENT: Atraumatic, PERRLA, EOMI, Normocephalic. Oral: No Gingival or Mucosal Lesions/ Ulcerations Neck: Supple, No JVD, Negative Carotid Bruits Chest wall/Lungs: Air entry diminished in all lung benitez. Mild fine expiratory rhonchi. MENSAH better Cardiovascular: Regular rate and rhythm, Normal S1,S2, No M/G/R Abdomen: Bowel Sounds Present, Soft, Non Tender, Non-Distended : No dysuria. No renal angle tenderness. No suprapubic tenderness. Extremities: No edema, Capillary Refill Less than 3 Seconds Skin: No rashes, No breakdown Musculoskeletal: No Tenderness to Palpation of Joints or Extremities. Moderate atrophy of muscles of extremities, paravertebral muscles and craniofacial muscles, chronic moderate protein calorie malnutrition Neurological: Cranial nerves II-XII grossly intact, DTR 2+/4. No acute focal neurological deficit. Psych/Mental Status: Flat affect Assessment & Plan Assessment/Plan (1) COPD exacerbation: (2) Pneumonia: QUALIFIERS: Pneumonia type: due to unspecified organism Laterality: left Lung location: lower lobe of lung Qualified Code(s): J18.9 - Pneumonia, unspecified organism (3) Leukocytosis: QUALIFIERS: Leukocytosis type: unspecified Qualified Code(s): D72.829 - Elevated white blood cell count, unspecified (4) Acute respiratory failure: QUALIFIERS: Respiratory failure complication: hypoxia Qualified Code(s): J96.01 - Acute respiratory failure with hypoxia (5) Nonrheumatic mitral valve regurgitation: (6) Nonrheumatic tricuspid valve regurgitation: (7) Essential hypertension: PLAN: Plan 84-year-old female admitted with Shortness of breath, URI symptoms and cough for past several days with history of COPD. At urgent care pulse ox was 88% therefore sent to ED. On 3 L of oxygen at night only. History of [id number] smoking quit completely at the age of 47. 1. Acute hypercarbic on chronic hypoxic respiratory failure due to acute exacerbation of COPD probably due to metapneumovirus bronchitis: Patient is being admitted in PCU. VBG 7.52/mixed pCO2 33, total CO2 28. ABG looks more compensated 7.44/40.8/87 on 2 L of oxygen. Next VBG 7.31/max. CO2 61.3. Respiratory panel positive for human metapneumovirus. Urinary antigens are negative. Triple PCR for SARS-CoV-2, flu and RSV are negative. Chest x-ray initially reviewed and shows flattening of diaphragm, hyperlucent and hyperinflated/air trapping. Patient had chest CT without contrast small area of nodular densities in posterior aspect left lower lobe and pleural-based spiculated density favoring scarring in posterior right lower lobe. Severe emphysema bilateral linear atelectasis. No effusion or pneumothorax. Patient is being managed on scheduled bronchodilator, IV Solu-Medrol, Mucinex, incentive spirometry and Pep.She is not able to tolerate BiPAP and therefore low-dose IV Ativan 0.25 mg ordered and Seroquel 25 mg twice daily. Will monitor consult requested 08/24: Patient currently on 3 L of oxygen. Patient has improvement in shortness of breath but is still dyspnea on mild exertion. Continue without treatment. Patient's daughter asked about prognosis and hospice care. Advised to follow with Dr. Antunez for COPD prognostication. In my opinion, she has stage IV COPD. PFT in August 2019 showed irreversible moderately severe large airway obstruction ventilatory defect with associated hyperinflation and air trapping. At that time, 6-minute walk test showed that she needed 2 L of supplemental oxygen with exertion. No FEV1 documented. In the past had also completed pulmonary rehab. No current PFT. I think this current exacerbation is due to metapneumovirus therefore I do not think she is hospice appropriate. I advised the daughter that palliative consult would be appropriate but she would like to follow-up as an outpatient and declined the inpatient palliative offer. 08/25: Pulmonary follow-up reviewed. Pulse ox 95% on 3 to 4 L of oxygen, RR 20-24 /min, dyspnea on exertion. Continue same treatment. Patient leukocytosis had resolved but again went up due to marginalization from IV Solu-Medrol/ steroid effect 08/26: Yesterday, IV Solu-Medrol was increased to 40 mg every 6 hourly and DuoNeb Q4 hourly. Patient feels better with regards to dyspnea on exertion. Tachypnea better, RR 18 to 20/min. Continue same regimen. 2. Acute hypercarbic on chronic hypoxic respiratory failure due to COPD exacerbation as mentioned. The patient's daughter said she had bleeding in the lung and had to put a stent about 20 years ago, exact mechanism, cause, and procedure unclear 08/26: Pulse ox 93% on 3 L oxygen. 3. History of nonrheumatic mitral/tricuspid valve regurgitation -2D echo is being done 4. Essential hypertension; on triamterene-hydrochlorothiazide Home medication current 5. History of Hodgkin's lymphoma/CLL, CML?: Follows [facility] oncologist Dr. 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 Mild cognitive impairment; on rivastigmine twice daily - Continue rivastigmine as previous. History of breast cancer; s/p bilateral mastectomy (1982) with breast reconstruction (2015) - Noted. Chronic constipation - Give laxatives prn. History of thrush; on oral fluconazole, changed to oral nystatin swish and swallow as patient is on Seroquel to avoid QT prolongation adverse effect Degenerative arthritiscervicalgia and Left shoulder pain - Give acetaminophen as needed DVT/GI prophylaxis - Enoxaparin 40 mg sq daily plus SCD's. Give pantoprazole 40 mg daily Total time of the visit including total time spent in counseling or coordination of care, (more than 50% of the total time, spent in obtaining medical information from nurses and other ancillary care providers ,explaining to the patient about labs, imaging, diagnosis and management of active complex medical conditions), , review of labs and imaging is 35 minutes. Microbiology Past 72 Hours 08/23/24 12:50 Urine, Clean Catch Urine Culture - Final Culture exhibits no growth. 08/23/24 12:50 Urine, Clean Catch Legionella Antigen - Final 08/23/24 12:50 Urine, Clean Catch Streptococcus pneumoniae Antigen (M - Final 08/22/24 20:48 Mucosa - Nose Respiratory Panel (PCR) - Final Human [place] Laboratory Results 08/26/24 05:14: Sodium 133, Potassium 4.6, Chloride 97 L, Carbon Dioxide 24.9, Anion Gap 11, BUN 47 H, Creatinine 0.81, Estim Creat Clear Calc 34.83 L, Est GFR (MDRD) Non-Af 73, BUN/Creatinine Ratio 58.3 H, Glucose 133 H, Calcium 8.6 Clinical Impression(s) from Imaging Studies Chest X-Ray 08/22/24 17:17 IMPRESSION: Overlying dense breasts limits evaluation of underlying bilateral lower lobes. Focal consolidations within the bilateral lower lobes not excluded. Hyperinflated lungs may reflect COPD. Reading Location: [id number] Chest CT 08/22/24 23:20 IMPRESSION: In the posterior aspect of the left lower lobe, there is a small area of nodular densities possibly infectious in etiology. In the posterior right lower lobe, there is a pleural-based spiculated density, not present previously, favoring scarring. Lung nodule not excluded. Recommend three-month follow up imaging. Reading [facility] Charges/Coding Visit Charges Inpatient E&M: 30267 Subs Hosp L2
--- NOTE | 2024-08-26 12:04 | PCM.PN.TICU ---
Objective Data Objective Data Vital Signs: Vital Signs Last response Temperature 36.8 C 08/26/24 09:03 Temperature Source Oral 08/26/24 09:03 Pulse Rate 82 08/26/24 11:19 Pulse Strength Normal (2+) 08/24/24 10:00 Respiratory Rate 18 08/26/24 11:19 Respiratory Effort Normal, Non-Labored 08/26/24 09:37 Respiratory Depth Normal 08/26/24 09:37 Respiratory Pattern Normal 08/26/24 11:19 Blood Pressure 120/86 H 08/26/24 09:03 Blood Pressure Mean 97 08/26/24 09:03 Blood Pressure Source Monitor 08/26/24 04:55 Blood Pressure Position Semi-Fowlers 08/26/24 04:55 Blood Pressure Location Right Arm 08/26/24 04:55 Pulse Ox 93 08/26/24 11:55 Oxygen Delivery Method Nasal Cannula 08/26/24 11:55 Oxygen Flow Rate (L/min) 2 08/26/24 11:55 Fraction of Inspired Oxygen (FIO2) 93 08/26/24 09:37 I&O: I&O Last 24 Hours 08/25/24 08/26/24 08/26/24 23:59 11:59 23:59 Intake Total 720 / 720 200 / 200 Balance 720 / 720 200 / 200 I&O: Total Stay 08/22/24 16:32 thru 08/26/24 11:59 Intake Total 3770 Balance 3770 Current Meds Ordered / Administered: Current meds ordered / Administered Generic Name Dose Route Start Last Admin Trade Name Freq PRN Reason Stop Dose Admin Acetaminophen 650 mg 08/22/24 22:37 Acetaminophen 325 Mg Tablet PO Q4H PRN PRN Pain 1-5/10 or Fever Albuterol/Ipratropium 3 ml 08/25/24 14:45 08/26/24 11:18 Ipratropium/Albuterol Sulfate 3 Ml Ampul.Neb INHALATION 3 ml Q4HWA.RT CANDELARIA Administration Aspirin 81 mg 08/23/24 08:00 08/26/24 09:05 Aspirin E.C. 81 Mg Tablet PO 81 mg BREAKFAST CANDELARIA Administration Buspirone HCl 10 mg 08/25/24 10:00 08/26/24 09:04 Buspirone 5 Mg Tablet PO 10 mg BID CANDELARIA Administration Doxycycline Monohydrate 100 mg 08/23/24 10:00 08/26/24 09:05 Doxycycline 100 Mg Capsule PO 100 mg BID CANDELARIA Administration Enoxaparin Sodium 40 mg 08/23/24 10:00 08/26/24 09:05 Enoxaparin 40 Mg/0.4 Ml Syringe SC 40 mg DAILY CANDELARIA Administration Guaifenesin 2 tablet 08/23/24 10:00 08/26/24 09:05 Guaifenesin/D-Methorphan Tab.Sr.12h PO 2 tablet BID CANDELARIA Administration Hydralazine HCl 5 mg 08/22/24 22:37 Hydralazine 20 Mg/Ml Vial IV Q8H PRN PRN SBP GREATER THAN 160 Protocol Sodium Chloride 250 mls @ 15 mls/hr 08/22/24 22:49 IV .[id number] PRN Saline Flush Sodium Chloride 250 mls @ 15 mls/hr 08/22/24 22:49 IV .[id number] PRN Additional IVPB Infusion Lidocaine 1 patch 08/23/24 10:00 08/26/24 09:06 Lidocaine 5% Patch TOPICAL Not Given DAILY [facility] Protocol Loratadine 10 mg 08/23/24 10:00 08/26/24 09:05 Loratadine 10 Mg Tablet PO 10 mg DAILY CANDELARIA Administration Meclizine HCl 25 mg 08/22/24 23:08 Meclizine Hcl 25 Mg Tablet PO BID PRN PRN vertigo Melatonin 10 mg 08/23/24 09:00 08/25/24 21:22 Melatonin 10 Mg Tablet PO 10 mg QHS PRN PRN Administration INSOMNIA Methylprednisolone Sodium Succinate 40 mg 08/25/24 18:00 08/26/24 11:48 Methylprednisolone Sod Succ 40 Mg/Ml Vial IV 40 mg Q6 CANDELARIA Administration Morphine Sulfate 2 mg 08/22/24 22:37 08/25/24 07:36 Morphine 2 Mg/Ml Syringe IV 2 mg Q4H PRN PRN Administration Pain Score 6-10 Nystatin 500,000 unit 08/23/24 10:00 08/26/24 09:04 Nystatin 500,000 Unit/5 Ml Udc PO 500,000 unit 4X/DAY CANDELARIA Administration Ondansetron HCl 4 mg 08/25/24 13:31 08/26/24 11:48 Ondansetron 4 Mg/2 Ml Vial IV 4 mg Q6H PRN PRN Administration NAUSEA/VOMITING Prochlorperazine Maleate 25 mg 08/22/24 22:37 Prochlorperazine 25 Mg Suppos. RC BID PRN PRN Breakthrough Nausea/Vomiting Quetiapine Fumarate 25 mg 08/23/24 10:00 08/26/24 09:05 Quetiapine 25 Mg Tablet PO 25 mg BID CANDELARIA Administration Protocol Rivastigmine Tartrate 1.5 mg 08/23/24 10:00 08/26/24 09:05 Rivastigmine Tartrate 1.5 Mg Capsule PO 1.5 mg BID CANDELARIA Administration Sodium Chloride 10 - 40 ml 08/22/24 22:49 08/26/24 11:48 0.9% Saline Lock 10 Ml Syringe IV 20 ml UD PRN Administration SALINE FLUSH Triamterene/Hydrochlorothiazide 1 cap 08/23/24 10:00 08/26/24 09:05 Triamterene 37.5mg/Hctz 25mg Capsule PO 1 cap DAILY CANDELARIA Administration Lab / Micro Data Attestation: I reviewed the patient's lab results. 08/25/24 03:30 08/26/24 05:14 Labs: Laboratory Results - last 24 hr 08/26/24 05:14: Sodium 133, Potassium 4.6, Chloride 97 L, Carbon Dioxide 24.9, Anion Gap 11, BUN 47 H, Creatinine 0.81, Estim Creat Clear Calc 34.83 L, Est GFR (MDRD) Non-Af 73, BUN/Creatinine Ratio 58.3 H, Glucose 133 H, Calcium 8.6 Micro: Microbiology 08/23/24 12:50 Urine, Clean Catch Urine Culture - Final Culture exhibits no growth. Assessment and Plan . Assessment and plan: Assesssment: Acute Exacerbation of COPD Human Metapneumovirus Infection Anxiety HTN CML -cont scheduled bronchodilators -anticipate transition to PO steroids on 08/27 -mobilize -cont non-sedating anxiolytics The entirety of this encounter was done via Telemedicine Physical Exam Narrative G- NAD/A&O 3 ENT- anicteric, moist mm, no obvious TM or LAD CV- rrr no mrg, nl s1 s2 L- CTA with fair air movement and effort; no accessory muscle use Ab- s nt nd + BS Ext- no cce Neuro- no focal deficits Psych- nl affect Subjective Subjective Up in chair. States that she doesn't feel well today but better than she did when she arrived. RN reports that pt did better today ambulating to bathroom than she did previously. Anxiety a little better.
[2024-08-26] MEDS: MELATONIN 10 MG TABLET PO (23:25)
[2024-08-27] VITALS (15 sets, daily range): BP systolic 121–155; BP diastolic 81–113; PULSE 78–103; RESP 18–20; TEMP 36.4–36.9; O2SAT 90–96; BMI 17.2
[2024-08-27] MEDS: 0.9% Saline Lock 10 ML Syringe IV ×2 (05:22→20:50)
[2024-08-27] MEDS: guaiFENesin/D-Methorphan TAB.SR.12H 2 TABLET PO ×2 (09:30→23:17)
[2024-08-27] MEDS: NYSTATIN 500,000 UNIT/5 ML UDC 500000 UNIT PO ×2 (09:30→23:16)
[2024-08-27] MEDS: Triamterene 37.5MG/Hctz 25MG Capsule 1 CAP PO (09:31)
[2024-08-27] MEDS: Aspirin E.C. 81 MG Tablet PO (09:31)
[2024-08-27 12:13] LABS: Hematocrit 46.6 % (37-47); Hemoglobin 15.6 g/dL (12.0-15.0); Immature Granulocytes Count 0.460 X10^3/uL (0.0-0.0); Mean Corp Hgb Conc 33.5 g/dL (32-36); Mean Corpuscular Volume 86.9 fL (81-99); Mean Platelet Vol. 13.0 fl (6.2-12.0); NRBC Flagged by Analyzer 0.1 % (0-5); POSITIVE COUNT YES; POSITIVE DIFFERENTIAL YES; POSITIVE MORPHOLOGY YES; Platelet Count 139 K/mm3 (150-450); RBC Distribution Width CV 14.6 % (11.6-14.6); RBC Distribution Width SD 46.5 fl (35.1-43.9); Red Blood Count 5.36 M/mm3 (4.2-5.4); White Blood Count 35.5 K/mm3 (4.4-11.0)
[2024-08-27 12:15] LABS: Differential Indicated SCAN CRITERIA MET
--- NOTE | 2024-08-27 12:52 | PCM.PN.HOSP ---
Reason for Visit Reason for Visit: Diagnoses Elevated white blood cell count, unspecified (08/22/24) Essential (primary) hypertension (08/22/24) Nonrheumatic mitral (valve) insufficiency (08/22/24) Nonrheumatic tricuspid (valve) insufficiency (08/22/24) Pneumonia, unspecified organism (08/22/24) Chronic obstructive pulmonary disease with (acute) exacerbation (08/22/24) Acute respiratory failure, unspecified whether with hypoxia or hypercapnia (08/22/24) Acute respiratory failure with hypoxia (08/22/24) Other abnormalities of breathing (08/22/24) Objective Data Objective Data Vital Signs: Vital Signs Temp Pulse Resp BP Pulse Ox O2 Del Method O2 Flow Rate 97.9 F 97 18 121/89 H 96 Nasal Cannula 2 08/27/24 11:02 08/27/24 11:02 08/27/24 11:02 08/27/24 11:02 08/27/24 11:02 08/27/24 11:02 08/27/24 11:02 FiO2 30 08/26/24 23:00 Oxygen Flow Rate (L/min) 2 Oxygen Delivery Method Nasal Cannula Weight: 91 lb 7.869 oz Body Mass Index (BMI) 17.2 Intake & Output: Intake and Output for Last 24 Hours 08/25/24 08/26/24 08/27/24 23:59 23:59 23:59 Intake Total 720 / 720 200 / 200 100 / 100 Output Total 100 / 100 Balance 720 / 720 200 / 200 0 / 0 Lab / Micro Data 08/27/24 12:03 08/26/24 05:14 Labs: Laboratory Results - last 24 hr 08/27/24 12:03: WBC 35.5 H*, RBC 5.36, Hgb 15.6 H, Hct 46.6, MCV 86.9, MCH 29.1, MCHC 33.5, RDW Std Deviation 46.5 H, RDW Coeff of Anderson 14.6, Plt Count 139 L, MPV 13.0 H, Immature Gran % (Auto) 1.300 H, Neut % (Auto) 56.9, Lymph % (Auto) 38.4, Meagher % (Auto) 3.2, Eos % (Auto) 0.0, Baso % (Auto) 0.2, Absolute Neuts (auto) 20.2 H, Absolute Lymphs (auto) 13.63 H, Nucleated RBC % 0.1 Micro: Microbiology 08/23/24 12:50 Urine, Clean Catch Urine Culture - Final Culture exhibits no growth. 08/23/24 12:50 Urine, Clean Catch Legionella Antigen - Final 08/23/24 12:50 Urine, Clean Catch Streptococcus pneumoniae Antigen (M - Final 08/22/24 20:48 Mucosa - Nose Respiratory Panel (PCR) - Final Human [place] 08/22/24 17:38 Mucosa - Nose SARS-CoV-2, Influenza & RSV (PCR) - Final Physical Exam Narrative Seen and examined Patient has cough, predominantly dry. Not able to bring up phlegm. She is already on Mucinex DM. Patient is feeling better with regards to shortness of breath. She has mild dyspnea on exertion today compared to yesterday. No fever. Admitted with shortness of breath and cough for 5 days and hypoxia. Afebrile advanced COPD/emphysema, COPD Physical exam General: Alert, Oriented x3, Cooperative. BMI 17.4 kg per square HEENT: Atraumatic, PERRLA, EOMI, Normocephalic. Oral: No Gingival or Mucosal Lesions/ Ulcerations Neck: Supple, No JVD, Negative Carotid Bruits Chest wall/Lungs: Air entry diminished in all lung benitez. Mild fine expiratory rhonchi. Cardiovascular: Regular rate and rhythm, Normal S1,S2, No M/G/R Abdomen: Bowel Sounds Present, Soft, Non Tender, Non-Distended : No dysuria. No renal angle tenderness. No suprapubic tenderness. Extremities: No edema, Capillary Refill Less than 3 Seconds Skin: No rashes, No breakdown Musculoskeletal: No Tenderness to Palpation of Joints or Extremities. Moderate atrophy of muscles of extremities, paravertebral muscles and craniofacial muscles, chronic moderate protein calorie malnutrition Neurological: Cranial nerves II-XII grossly intact, DTR 2+/4. No acute focal neurological deficit. Psych/Mental Status: Flat affect Assessment & Plan Assessment/Plan (1) COPD exacerbation: (2) Pneumonia: QUALIFIERS: Pneumonia type: due to unspecified organism Laterality: left Lung location: lower lobe of lung Qualified Code(s): J18.9 - Pneumonia, unspecified organism (3) Leukocytosis: QUALIFIERS: Leukocytosis type: unspecified Qualified Code(s): D72.829 - Elevated white blood cell count, unspecified (4) Acute respiratory failure: QUALIFIERS: Respiratory failure complication: hypoxia Qualified Code(s): J96.01 - Acute respiratory failure with hypoxia (5) Nonrheumatic mitral valve regurgitation: (6) Nonrheumatic tricuspid valve regurgitation: (7) Essential hypertension: PLAN: Plan 84-year-old female admitted with Shortness of breath, URI symptoms and cough for past several days with history of COPD. At urgent care pulse ox was 88% therefore sent to ED. On 3 L of oxygen at night only. History of 10-[id number]-[id number] smoking quit completely at the age of 47. 1. Acute hypercarbic on chronic hypoxic respiratory failure due to acute exacerbation of COPD probably due to metapneumovirus bronchitis: Patient is being admitted in PCU. VBG 7.52/mixed pCO2 33, total CO2 28. ABG looks more compensated 7.44/40.8/87 on 2 L of oxygen. Next VBG 7.31/max. CO2 61.3. Respiratory panel positive for human metapneumovirus. Urinary antigens are negative. Triple PCR for SARS-CoV-2, flu and RSV are negative. Chest x-ray initially reviewed and shows flattening of diaphragm, hyperlucent and hyperinflated/air trapping. Patient had chest CT without contrast small area of nodular densities in posterior aspect left lower lobe and pleural-based spiculated density favoring scarring in posterior right lower lobe. Severe emphysema bilateral linear atelectasis. No effusion or pneumothorax. Patient is being managed on scheduled bronchodilator, IV Solu-Medrol, Mucinex, incentive spirometry and Pep.She is not able to tolerate BiPAP and therefore low-dose IV Ativan 0.25 mg ordered and Seroquel 25 mg twice daily. Will monitor consult requested 08/24: Patient currently on 3 L of oxygen. Patient has improvement in shortness of breath but is still dyspnea on mild exertion. Continue without treatment. Patient's daughter asked about prognosis and hospice care. Advised to follow with Dr. Antunez for COPD prognostication. In my opinion, she has stage IV COPD. PFT in August 2019 showed irreversible moderately severe large airway obstruction ventilatory defect with associated hyperinflation and air trapping. At that time, 6-minute walk test showed that she needed 2 L of supplemental oxygen with exertion. No FEV1 documented. In the past had also completed pulmonary rehab. No current PFT. I think this current exacerbation is due to metapneumovirus therefore I do not think she is hospice appropriate. I advised the daughter that palliative consult would be appropriate but she would like to follow-up as an outpatient and declined the inpatient palliative offer. 08/25: Pulmonary follow-up reviewed. Pulse ox 95% on 3 to 4 L of oxygen, RR 20-24 /min, dyspnea on exertion. Continue same treatment. Patient leukocytosis had resolved but again went up due to marginalization from IV Solu-Medrol/ steroid effect 08/26: Yesterday, IV Solu-Medrol was increased to 40 mg every 6 hourly and DuoNeb Q4 hourly. Patient feels better with regards to dyspnea on exertion. Tachypnea better, RR 18 to 20/min. Continue same regimen. 08/27: Patient with mild dyspnea on exertion and shortness of breath probably due to dry cough. Fred Shaw added. Previous chest CT described above. Labs shows critically high leukocytosis although it got normal 2 days ago most likely from high-dose of methylprednisolone therefore discontinued. Prednisone 40 mg daily ordered. Repeat chest x-ray PA and lateral ordered. Patient on doxycycline. Discussed with the patient's daughter. 2. Acute hypercarbic on chronic hypoxic respiratory failure due to COPD exacerbation as mentioned. The patient's daughter said she had bleeding in the lung and had to put a stent about 20 years ago, exact mechanism, cause, and procedure unclear 08/26: Pulse ox 93% on 3 L oxygen. 08/27: Patient pulse ox 94% on 2 L of oxygen. RR 18 to 20/min 3. History of nonrheumatic mitral/tricuspid valve regurgitation -2D echo is being done 4. Essential hypertension; on triamterene-hydrochlorothiazide Home medication current 5. History of Hodgkin's lymphoma/CLL, CML?: Follows [facility] oncologist Dr. 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 Mild cognitive impairment; on rivastigmine twice daily - Continue rivastigmine as previous. History of breast cancer; s/p bilateral mastectomy (1982) with breast reconstruction (2015) - Noted. Chronic constipation - Give laxatives prn. History of thrush; on oral fluconazole, changed to oral nystatin swish and swallow as patient is on Seroquel to avoid QT prolongation adverse effect Degenerative arthritiscervicalgia and Left shoulder pain - Give acetaminophen as needed DVT/GI prophylaxis - Enoxaparin 40 mg sq daily plus SCD's. Give pantoprazole 40 mg daily Total time of the visit including total time spent in counseling or coordination of care, (more than 50% of the total time, spent in obtaining medical information from nurses and other ancillary care providers ,explaining to the patient about labs, imaging, diagnosis and management of active complex medical conditions), , review of labs and imaging is 35 minutes. Microbiology Past 72 Hours 08/23/24 12:50 Urine, Clean Catch Urine Culture - Final Culture exhibits no growth. Laboratory Results 08/27/24 12:03: WBC 35.5 H*, RBC 5.36, Hgb 15.6 H, Hct 46.6, MCV 86.9, MCH 29.1, MCHC 33.5, RDW Std Deviation 46.5 H, RDW Coeff of Anderson 14.6, Plt Count 139 L, MPV 13.0 H, Immature Gran % (Auto) 1.300 H, Neut % (Auto) 56.9, Lymph % (Auto) 38.4, Meagher % (Auto) 3.2, Eos % (Auto) 0.0, Baso % (Auto) 0.2, Absolute Neuts (auto) 20.2 H, Absolute Lymphs (auto) 13.63 H, Nucleated RBC % 0.1, Sodium Pending, Potassium Pending, Chloride Pending, Carbon Dioxide Pending, Anion Gap Pending, BUN Pending, Creatinine Pending, Est GFR (MDRD) Non-Af Pending, BUN/Creatinine Ratio Pending, Glucose Pending, Calcium Pending Clinical Impression(s) from Imaging Studies Chest X-Ray 08/22/24 17:17 IMPRESSION: Overlying dense breasts limits evaluation of underlying bilateral lower lobes. Focal consolidations within the bilateral lower lobes not excluded. Hyperinflated lungs may reflect COPD. Reading Location: [facility] Chest CT 08/22/24 23:20 IMPRESSION: In the posterior aspect of the left lower lobe, there is a small area of nodular densities possibly infectious in etiology. In the posterior right lower lobe, there is a pleural-based spiculated density, not present previously, favoring scarring. Lung nodule not excluded. Recommend three-month follow up imaging. Reading Location: [id number] Charges/Coding Visit Charges Inpatient E&M: 82823 Subs Hosp L2
[2024-08-27 13:07] LABS: Reactive Lymphocyte 1+
--- NOTE | 2024-08-27 13:20 | RAD_ITS ---
PROCEDURE: CHEST PA AND LATERAL 08/27/2024 REASON FOR EXAM: SOB, COPD EXA, R/O PNEUMONIA TECHNIQUE: CHEST PA AND LATERAL COMPARISON: Two-view chest, 08/22/2024 FINDINGS: Emphysema. The lungs are clear. There are no pleural effusions. There are surgical clips noted at the left hilum. The heart size is normal. There is calcific vascular disease of the thoracic aorta. Status post bilateral mastectomy and breast reconstruction with prostheses. The upper abdominal bowel gas pattern is normal. There is mild dextroscoliosis of the thoracic spine. RAD/Chest PA and Lateral IMPRESSION: Emphysema. No evidence of acute cardiopulmonary pathology. Other findings as noted. Reading Location: [id number]
[2024-08-27 13:23] LABS: Anion Gap 14 (5-15); BUN 68 mg/dL (4-19); BUN/Creat Ratio 61.5 RATIO (10-20); Calcium,Total 9.0 mg/dL (7.6-11.0); Carbon Dioxide 23.4 mmol/L (21.0-32.0); Chloride 99 mmol/L (98-108); Estimated Creatinine Clearance 25.83 ml/min (50-250); Glucose 213 mg/dL (70-99); Potassium 4.7 mmol/L (3.3-5.1)
--- NOTE | 2024-08-27 13:30 | PCM.PN.TICU ---
Objective Data Objective Data Vital Signs: Vital Signs Last response Temperature 36.6 C 08/27/24 11:02 Temperature Source Oral 08/27/24 11:02 Pulse Rate 97 08/27/24 11:02 Pulse Strength Normal (2+) 08/26/24 21:53 Respiratory Rate 18 08/27/24 11:02 Respiratory Effort Normal, Non-Labored 08/27/24 09:47 Respiratory Depth Normal 08/27/24 09:47 Respiratory Pattern Normal 08/27/24 10:51 Blood Pressure 121/89 H 08/27/24 11:02 Blood Pressure Mean 99 08/27/24 11:02 Blood Pressure Source Monitor 08/27/24 04:47 Blood Pressure Position Semi-Fowlers 08/27/24 04:47 Blood Pressure Location Right Arm 08/27/24 04:47 Pulse Ox 94 08/27/24 12:42 Oxygen Delivery Method Nasal Cannula 08/27/24 11:02 Oxygen Flow Rate (L/min) 3 08/27/24 12:42 Fraction of Inspired Oxygen (FIO2) 30 08/26/24 23:00 I&O: I&O Last 24 Hours 08/26/24 08/27/24 08/27/24 23:59 11:59 23:59 Intake Total 100 / 100 Output Total 100 / 100 Balance -100 / 0 100 / 0 I&O: Total Stay 08/22/24 16:32 thru 08/27/24 12:00 Intake Total 3870 Output Total 100 Balance 3770 Current Meds Ordered / Administered: Current meds ordered / Administered Generic Name Dose Route Start Last Admin Trade Name Freq PRN Reason Stop Dose Admin Acetaminophen 650 mg 08/22/24 22:37 Acetaminophen 325 Mg Tablet PO Q4H PRN PRN Pain 1-5/10 or Fever Albuterol/Ipratropium 3 ml 08/25/24 14:45 08/27/24 10:50 Ipratropium/Albuterol Sulfate 3 Ml Ampul.Neb INHALATION 3 ml Q4HWA.RT CANDELARIA Administration Aspirin 81 mg 08/23/24 08:00 08/27/24 09:31 Aspirin E.C. 81 Mg Tablet PO 81 mg BREAKFAST CANDELARIA Administration Benzonatate 200 mg 08/27/24 14:00 Benzonatate 100 Mg Capsule PO TID CANDELARIA Buspirone HCl 10 mg 08/25/24 10:00 08/27/24 09:31 Buspirone 5 Mg Tablet PO 10 mg BID CANDELARIA Administration Doxycycline Monohydrate 100 mg 08/23/24 10:00 08/27/24 09:31 Doxycycline 100 Mg Capsule PO 100 mg BID CANDELARIA Administration Enoxaparin Sodium 40 mg 08/23/24 10:00 08/27/24 09:30 Enoxaparin 40 Mg/0.4 Ml Syringe SC 40 mg DAILY CANDELARIA Administration Guaifenesin 2 tablet 08/23/24 10:00 08/27/24 09:30 Guaifenesin/D-Methorphan Tab.Sr.12h PO 2 tablet BID CANDELARIA Administration Hydralazine HCl 5 mg 08/22/24 22:37 Hydralazine 20 Mg/Ml Vial IV Q8H PRN PRN SBP GREATER THAN 160 Protocol Sodium Chloride 250 mls @ 15 mls/hr 08/22/24 22:49 IV .[id number] PRN Saline Flush Sodium Chloride 250 mls @ 15 mls/hr 08/22/24 22:49 IV .[id number] PRN Additional IVPB Infusion Lidocaine 1 patch 08/23/24 10:00 08/27/24 09:31 Lidocaine 5% Patch TOPICAL Not Given DAILY [facility] Protocol Loratadine 10 mg 08/23/24 10:00 08/27/24 09:38 Loratadine 10 Mg Tablet PO Not Given DAILY [facility] Meclizine HCl 25 mg 08/22/24 23:08 08/27/24 11:05 Meclizine Hcl 25 Mg Tablet PO 25 mg BID PRN PRN Administration vertigo Melatonin 10 mg 08/23/24 09:00 08/26/24 23:25 Melatonin 10 Mg Tablet PO 10 mg QHS PRN PRN Administration INSOMNIA Morphine Sulfate 2 mg 08/22/24 22:37 08/25/24 07:36 Morphine 2 Mg/Ml Syringe IV 2 mg Q4H PRN PRN Administration Pain Score 6-10 Nystatin 500,000 unit 08/23/24 10:00 08/27/24 09:30 Nystatin 500,000 Unit/5 Ml Udc PO 500,000 unit 4X/DAY CANDELARIA Administration Ondansetron HCl 4 mg 08/25/24 13:31 08/27/24 10:54 Ondansetron 4 Mg/2 Ml Vial IV 4 mg Q6H PRN PRN Administration NAUSEA/VOMITING Prednisone 40 mg 08/28/24 08:00 Prednisone 20 Mg Tablet PO BREAKFAST CANDELARIA Prochlorperazine Maleate 25 mg 08/22/24 22:37 Prochlorperazine 25 Mg Suppos. RC BID PRN PRN Breakthrough Nausea/Vomiting Quetiapine Fumarate 25 mg 08/23/24 10:00 08/27/24 09:30 Quetiapine 25 Mg Tablet PO 25 mg BID CANDELARIA Administration Protocol Rivastigmine Tartrate 1.5 mg 08/23/24 10:00 08/27/24 09:31 Rivastigmine Tartrate 1.5 Mg Capsule PO 1.5 mg BID CANDELARIA Administration Sodium Chloride 10 - 40 ml 08/22/24 22:49 08/27/24 05:22 0.9% Saline Lock 10 Ml Syringe IV 10 ml UD PRN Administration SALINE FLUSH Triamterene/Hydrochlorothiazide 1 cap 08/23/24 10:00 08/27/24 09:31 Triamterene 37.5mg/Hctz 25mg Capsule PO 1 cap DAILY CANDELARIA Administration Lab / Micro Data 08/27/24 12:03 08/27/24 12:03 Labs: Laboratory Results - last 24 hr 08/27/24 12:03: WBC 35.5 H*, RBC 5.36, Hgb 15.6 H, Hct 46.6, MCV 86.9, MCH 29.1, MCHC 33.5, RDW Std Deviation 46.5 H, RDW Coeff of Anderson 14.6, Plt Count 139 L, MPV 13.0 H, Immature Gran % (Auto) 1.300 H, Neut % (Auto) 56.9, Lymph % (Auto) 38.4, [place] % (Auto) 3.2, Eos % (Auto) 0.0, Baso % (Auto) 0.2, Absolute Neuts (auto) 20.2 H, Absolute Lymphs (auto) 13.63 H, Nucleated RBC % 0.1, Diff Path Review May foll, Reactive Lymphocytes 1+, Sodium 136, Potassium 4.7, Chloride 99, Carbon Dioxide 23.4, Anion Gap 14, BUN 68 H, Creatinine 1.10, Estim Creat Clear Calc 25.83 L, Est GFR (MDRD) Non-Af 50 L, BUN/Creatinine Ratio 61.5 H, Glucose 213 H, Calcium 9.0 Assessment and Plan . Assessment and plan: Acute Exacerbation of COPD Human Metapneumovirus Infection Anxiety HTN CML Leukocytosis -cont scheduled bronchodilators -transition to PO steroids -mobilize -cont non-sedating anxiolytics -WBC higher but she is non-toxic/improved; suspect related to CM/cont to follow The entirety of this encounter was done via Telemedicine Physical Exam Const alert and oriented x3 Constitutional Narrative: Frail General Appearance: cooperative HEENT normocephalic Eyes no scleral icterus Neck supple Lymph Lymphatic: no lymphadenopathy noted Resp normal respiratory effort Effort and Inspection: able to speak in complete sentences Auscultation: clear to auscultation bilaterally Cardio regular rate, S1 normal heart sound, S2 normal heart sound, no murmurs, no rub and no gallops GI normal to inspection, nondistended, normoactive bowel sounds Extremity no clubbing, cyanosis or edema Skin no rashes or lesions noted Neuro oriented x3, moves all extremities and no focal motor deficits Psych Appearance: well kempt Subjective Subjective Up in chair. States she feels a little better. Overall improved but has moments where she is more short of breath.
[2024-08-27] MEDS: MELATONIN 10 MG TABLET PO (20:59)
[2024-08-27] MEDS: Lactobacillis Acidophilus 1 CAP PO (23:16)
[2024-08-28] VITALS (12 sets, daily range): BP systolic 107–139; BP diastolic 71–100; PULSE 77–102; RESP 14–22; TEMP 36–36.6; O2SAT 92–96; BMI 17.3
[2024-08-28] MEDS: 0.9% Saline Lock 10 ML Syringe IV ×2 (02:25→19:48)
[2024-08-28 05:52] LABS: Hematocrit 43.8 % (37-47); Hemoglobin 14.7 g/dL (12.0-15.0); Immature Granulocytes Count 0.730 X10^3/uL (0.0-0.0); Mean Corp Hgb Conc 33.6 g/dL (32-36); Mean Corpuscular Volume 86.9 fL (81-99); Mean Platelet Vol. 12.8 fl (6.2-12.0); NRBC Flagged by Analyzer 0.2 % (0-5); POSITIVE COUNT YES; POSITIVE DIFFERENTIAL YES; Platelet Count 150 K/mm3 (150-450); RBC Distribution Width CV 14.5 % (11.6-14.6); RBC Distribution Width SD 46.5 fl (35.1-43.9); Red Blood Count 5.04 M/mm3 (4.2-5.4)
[2024-08-28 05:55] LABS: Differential Indicated SCAN CRITERIA MET
[2024-08-28 05:56] LABS: White Blood Count 40.4 K/mm3 (4.4-11.0)
[2024-08-28 06:31] LABS: Anion Gap 10 (5-15); BUN 75 mg/dL (4-19); BUN/Creat Ratio 64.3 RATIO (10-20); Calcium,Total 8.7 mg/dL (7.6-11.0); Carbon Dioxide 25.2 mmol/L (21.0-32.0); Chloride 100 mmol/L (98-108); Estimated Creatinine Clearance 24.35 ml/min (50-250); Glucose 135 mg/dL (70-99); Potassium 5.1 mmol/L (3.3-5.1)
[2024-08-28 06:50] LABS: Red Cell Morphology NORM C+C NORMAL (NORM C&C)
--- NOTE | 2024-08-28 07:19 | PCM.PN.HOSP ---
Reason for Visit Reason for Visit: Diagnoses Elevated white blood cell count, unspecified (08/22/24) Essential (primary) hypertension (08/22/24) Nonrheumatic mitral (valve) insufficiency (08/22/24) Nonrheumatic tricuspid (valve) insufficiency (08/22/24) Pneumonia, unspecified organism (08/22/24) Chronic obstructive pulmonary disease with (acute) exacerbation (08/22/24) Acute respiratory failure, unspecified whether with hypoxia or hypercapnia (08/22/24) Acute respiratory failure with hypoxia (08/22/24) Other abnormalities of breathing (08/22/24) Subjective Subjective Patient with no acute events overnight per self and per nursing report. Patient does report feeling notably fatigued with general malaise and having some suprapubic discomfort specifically. Daughter also reports that she is not back to her baseline and is less interactive and less spunky than her normal. Urinalysis not marked appearing but daughter did report that she has a history of bowel obstruction. Given this and mildly decreased bowel sounds on exam to be cautious CT of the abdomen was obtained with mildly distended bladder but no concerning findings and mildly distended gallbladder with possible small stones. Discussed plan of care with daughter and patient with plan for gallbladder ultrasound to be cautious although lower suspicion. Also discussed lab markers including procalcitonin to be obtained which were noted to be not severely elevated. Patient denies fevers, chills, nausea, emesis, chest pain or dyspnea. Objective Data Objective Data Vital Signs: Vital Signs Temp Pulse Resp BP Pulse Ox O2 Del Method O2 Flow Rate 97.4 F L 80 20 H 139/100 H 95 Nasal Cannula 2 08/28/24 02:40 08/28/24 07:02 08/28/24 07:02 08/28/24 02:40 08/28/24 07:02 08/28/24 07:02 08/28/24 07:02 FiO2 30 08/26/24 23:00 Oxygen Flow Rate (L/min) 2 Oxygen Delivery Method Nasal Cannula Weight: 91 lb 11.397 oz Body Mass Index (BMI) 17.3 Intake & Output: Intake and Output for Last 24 Hours 08/26/24 08/27/24 08/28/24 23:59 23:59 23:59 Intake Total 200 / 200 150 / 150 Output Total 100 / 100 Balance 200 / 200 50 / 50 -25 / -25 Lab / Micro Data 08/28/24 05:15 08/28/24 05:15 Labs: Laboratory Results - last 24 hr 08/27/24 12:03: WBC 35.5 H*, RBC 5.36, Hgb 15.6 H, Hct 46.6, MCV 86.9, MCH 29.1, MCHC 33.5, RDW Std Deviation 46.5 H, RDW Coeff of Anderson 14.6, Plt Count 139 L, MPV 13.0 H, Immature Gran % (Auto) 1.300 H, Neut % (Auto) 56.9, Lymph % (Auto) 38.4, Nolan % (Auto) 3.2, Eos % (Auto) 0.0, Baso % (Auto) 0.2, Absolute Neuts (auto) 20.2 H, Absolute Lymphs (auto) 13.63 H, Nucleated RBC % 0.1, Diff Path Review May , Reactive Lymphocytes 1+, Sodium 136, Potassium 4.7, Chloride 99, Carbon Dioxide 23.4, Anion Gap 14, BUN 68 H, Creatinine 1.10, Estim Creat Clear Calc 25.83 L, Est GFR (MDRD) Non-Af 50 L, BUN/Creatinine Ratio 61.5 H, Glucose 213 H, Calcium 9.0 08/28/24 05:15: WBC 40.4 H*, RBC 5.04, Hgb 14.7, Hct 43.8, MCV 86.9, MCH 29.2, MCHC 33.6, RDW Std Deviation 46.5 H, RDW Coeff of Anderson 14.5, Plt Count 150, MPV 12.8 H, Immature Gran % (Auto) 1.800 H, Neut % (Auto) 59.8, Lymph % (Auto) 31.6, Nolan % (Auto) 6.4, Eos % (Auto) 0.0, Baso % (Auto) 0.4, Absolute Neuts (auto) 24.2 H, Absolute Lymphs (auto) 12.75 H, Nucleated RBC % 0.2, Atypical Lymphocytes 1+, Platelet Estimate ADEQUATE, RBC Morphology NORM C+C, Sodium 135, Potassium 5.1, Chloride 100, Carbon Dioxide 25.2, Anion Gap 10, BUN 75 H, Creatinine 1.17, Estim Creat Clear Calc 24.35 L, Est GFR (MDRD) Non-Af 47 L, BUN/Creatinine Ratio 64.3 H, Glucose 135 H, Calcium 8.7 Micro: Microbiology 08/23/24 12:50 Urine, Clean Catch Urine Culture - Final Culture exhibits no growth. 08/23/24 12:50 Urine, Clean Catch Legionella Antigen - Final 08/23/24 12:50 Urine, Clean Catch Streptococcus pneumoniae Antigen (M - Final 08/22/24 20:48 Mucosa - Nose Respiratory Panel (PCR) - Final Human [place] 08/22/24 17:38 Mucosa - Nose SARS-CoV-2, Influenza & RSV (PCR) - Final Radiography Diagnostic Testing: Radiology Impression Chest X-Ray 08/27/24 13:20 IMPRESSION: Emphysema. No evidence of acute cardiopulmonary pathology. Other findings as noted. Reading Location: [id number] Physical Exam Narrative Physical Examination: General: Awake, alert, oriented to self, place and recent events, remains cooperative, seated upright in the PCU bedside chair, fatigued appearing, notes some suprapubic discomfort. Skin: Normal color, normal turgor, no icterus, no cyanosis except occasional stage ecchymoses, abrasion. HEENT: AT/NC, EOMI, PERRLA, mildly dry MM. Lungs: CTA bilaterally, moderate effort, mild decrease BL bases, no rales, ronchi or wheezing. Heart: Regular rate and rhythm; no gallop, rub audible. Abdomen: Soft, NTTP except for the suprapubic region but otherwise no rebound or guarding, no marked distention, mildly decreased bowel sounds. Extremities: No cyanosis, clubbing, or edema. Neurological: Patient awake, alert, oriented as noted, cognitive function intact but less interactive and cheerful than her normal per daughter discussion; pupils equally reactive to light and accommodation, cranial nerves grossly normal, moving all 4 extremities, no focal deficits, strength moderately to severely decreased. Psychiatric: Affect appears mildly flat, fatigued, no acute evidence of depressive or anxiety feelings. Assessment & Plan Assessment/Plan (1) COPD exacerbation: PLAN: Plan The patient is an 84 y/o F w/ PMHx: CKD stage II per GFR trending, HTN, HLD, Former tobacco use, COPD w/ Chronic Hypoxic Respiratory Failure (3.5L NC q HS), Hx CML/CLL, Valvular Heart Disease, Hx SBO, Hx Breast CA unclear type s/p remote mastectomy (1982) and reconstruction, Hx Cervical CA s/p hysterectomy who presents to the [facility] ED on 08/22/2024 with ongoing progressively worsening dyspnea and cough starting 3 to 4 days previous as well as URI type symptoms including wheezing and recent urgent care evaluation with noted hypoxia 88% on room air prompting referral to the ED for evaluation. #1. Acute hypercarbic on chronic hypoxic respiratory failure secondary to Acute COPD exacerbation secondary to acute human metapneumovirus bronchitis/acute viral syndrome: Patient admitted to the PCU, full respiratory panel with human metapneumovirus, urine antigens negative, COVID-negative, chest x-ray with COPD type changes, CT chest follow-up with contrast with nodular densities in posterior aspect of left lower lobe and pleural-based spiculated density favoring scarring in the posterior right lower lobe with severe emphysematous changes and bilateral linear atelectasis, maintained on scheduled DuoNeb therapy, PRN Albuterol, Mucinex, Pep therapy, aggressive I-S and encouraged head of bed, initially maintained on IV Solu-Medrol however given significant leukocytosis transitioned to oral prednisone therapy with plan for 5-day duration burst therapy per pulmonary recommendation, initially attempted BiPAP however unable to tolerate therefore placed on low-dose Ativan and Seroquel transition to BuSpar 10 mg p.o. twice daily in addition to Seroquel low-dose 25 mg p.o. twice daily. Maintained on oral doxycycline 100 mg p.o. twice daily with de-escalation off 08/29/2024. Pulmonary medicine consulted and following. #2. Suprapubic discomfort, abdominal pain of unclear etiology complicated by significant leukocytosis: Suspect leukocytosis primarily secondary to IV Solu-Medrol eventually transition to prednisone therapy at noted, urinalysis not marked appearing, CT abdomen and pelvis with mild bladder distention, will assure no retention with bladder scans per discussion with nursing staff, noted gallbladder mildly distended with possibly small gallstones therefore we will obtain gallbladder ultrasound to be cautious, we will continue to trend with CMP although no significant elevation of LFTs noted at this time, procalcitonin requested and not markedly elevated thus will defer any antibiotic alteration. If no acute findings or concerns and a.m. CBC with no marked further elevation of WBC or any fevers overnight likely would plan to discharge back to facility. If any changes or concerns arise low threshold to involve infectious disease. #3. Oral thrush: Patient with chronic issues with oral thrush, will maintain on oral nystatin regimen. #4. 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 Shields, not necessarily remission per discussion but on continued observation, encouraged continued follow-up as previously arranged. #5. Chronic Kidney Disease Stage II per GFR trending: Admission BUN/Cr 31/0.76, GFR 79, baseline renal function primarily 0.7-0.9, continue to trend, 08/28/2024 BUN/creatinine 75/1.17, GFR 47. #6. Dementia with chronic mild cognitive impairment, unclear type with unclear behavioral disturbance history: Complicates presentation, maintain on fall and aspiration precautions, therapies consulted as well as case management, continued on rivastigmine regimen. #7. Hypertension: Continue home regimen including triamterene/hydrochlorothiazide with low threshold to hold if needed, PRN hydralazine. #8. Hyperlipidemia: Not on regimen, defer to outpatient. #9. History of breast cancer: Unclear specific location or specific type, status post remote 1992 bilateral mastectomy, eventual reconstructive surgery 2015, considered in remission, encouraged continued follow-up as previously arranged. #10. Chronic degenerative arthritis, chronic left shoulder pain, chronic neck pain: Complicates presentation, maintain on fall precautions, offloading, continue therapies as consulted,. Tylenol. #11. Valvular heart disease: 08/23/2024 echocardiogram with EF 60%, posterior mitral valve prolapse, mild MR, grade 1 diastolic dysfunction, mild TR with no significant change from previous echocardiogram. #12. Allergic rhinitis: Will continue patient home loratadine regimen. #13. Former tobacco use: Encouraged continued tobacco cessation. #14. GERD: Maintained on PPI. #15. DVT prophylaxis: Renally dosed Lovenox. #16. CODE STATUS: DNR-CCA, no intubation. Charges/Coding Visit Charges Inpatient E&M: 05702 Subs Hosp L3
[2024-08-28 08:06] LABS: Mucous, Urine 0 SEEN /hpf (<or=2+)
[2024-08-28 08:12] LABS: Color, Urine Yellow (Yellow); Glucose, Dipstick Normal (Normal); Ketone-Dipstick Negative (Negative); Leukocyte Esterase-Dipstick 100 /ul (Negative); Nitrite-Dipstick Negative (Negative); Occult Blood-Urine Negative /ul (Negative); Protein-Dipstick 30 mg/dl (Negative); Specific Gravity, Urine 1.015 (1.002-1.030); Urine Bilirubin Dipstick Negative (Negative)
[2024-08-28 08:47] LABS: Red Blood Cells-Urine 0-5 SEEN /hpf (0-5); Squamous Epithelial Cells - UA 0-5 SEEN /hpf (5-10)
[2024-08-28 08:49] LABS: Fine Granular Cast- Urine 0-5 SEEN /lpf (0-5)
--- NOTE | 2024-08-28 09:08 | PCM.PN.INT ---
Assessment & Plan Assessment/Plan (1) COPD exacerbation: PLAN: Plan RECOMMENDATIONS: 1. Continue intermittent use of PAP therapy, if needed. 2. Supplemental oxygen to maintain saturations at or above 90%. 3. Continue scheduled bronchodilators and prednisone. 4. Recommend prednisone 40 mg daily x 5 days, then stop. 5. Lovenox for DVT prophylaxis. 6. Encourage incentive spirometer use and mobilize patient as tolerated. 7. Perform walking oximetry study prior to consideration for discharge. IMPRESSIONS: 1. Acute combined respiratory failure secondary to COPD exacerbation due to human metapneumovirus The patient has a known history of advanced stage COPD on triple therapy inhaler regimen. She appears to be experiencing an acute exacerbation of her COPD secondary to human metapneumovirus infection. At this time, I agree with continuing supportive care including scheduled bronchodilators and steroids. PAP therapy can be utilized, if needed, for increased work of breathing. The patient appears to be slowly improving from a clinical perspective. CODE STATUS again confirmed to be DNR CCA without intubation. 2. 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 Continue home medications as indicated. This note was generated with [employer] dictation software. It may contain incorrect words, spelling, and punctuation that were not noted in checking the note before signing. Subjective Subjective The patient was seen and examined at the bedside this morning. Events from the last 24 hours have been reviewed. The patient is currently afebrile, hemodynamically stable and maintaining appropriate oxygen saturations on 2 L/min via nasal cannula. The patient continues to improve slowly from a respiratory perspective. Objective Data Objective Data The patient's most recent lab work, culture data and imaging studies have all been personally reviewed. Respiratory viral panel was positive for human metapneumovirus. Vital Signs: Vital Signs Temp Pulse Resp BP Pulse Ox O2 Del Method O2 Flow Rate 97.4 F L 80 20 H 139/100 H 95 Nasal Cannula 2 08/28/24 02:40 08/28/24 07:02 08/28/24 07:02 08/28/24 02:40 08/28/24 07:02 08/28/24 08:05 08/28/24 08:05 FiO2 30 08/26/24 23:00 Oxygen Flow Rate (L/min) 2 Oxygen Delivery Method Nasal Cannula Weight: 91 lb 11.397 oz Body Mass Index (BMI) 17.3 Intake & Output: Intake and Output for Last 24 Hours 08/26/24 08/27/24 08/28/24 23:59 23:59 23:59 Intake Total 200 / 200 150 / 150 Output Total 100 / 100 Balance 200 / 200 50 / 50 -25 / -25 Lab / Micro Data Attestation: I reviewed the patient's lab results. 08/28/24 05:15 08/28/24 05:15 Labs: Laboratory Results - last 24 hr 08/27/24 12:03: WBC 35.5 H*, RBC 5.36, Hgb 15.6 H, Hct 46.6, MCV 86.9, MCH 29.1, MCHC 33.5, RDW Std Deviation 46.5 H, RDW Coeff of Anderson 14.6, Plt Count 139 L, MPV 13.0 H, Immature Gran % (Auto) 1.300 H, Neut % (Auto) 56.9, Lymph % (Auto) 38.4, Wise % (Auto) 3.2, Eos % (Auto) 0.0, Baso % (Auto) 0.2, Absolute Neuts (auto) 20.2 H, Absolute Lymphs (auto) 13.63 H, Nucleated RBC % 0.1, Diff Path Review June, Reactive Lymphocytes 1+, Sodium 136, Potassium 4.7, Chloride 99, Carbon Dioxide 23.4, Anion Gap 14, BUN 68 H, Creatinine 1.10, Estim Creat Clear Calc 25.83 L, Est GFR (MDRD) Non-Af 50 L, BUN/Creatinine Ratio 61.5 H, Glucose 213 H, Calcium 9.0 08/28/24 05:15: WBC 40.4 H*, RBC 5.04, Hgb 14.7, Hct 43.8, MCV 86.9, MCH 29.2, MCHC 33.6, RDW Std Deviation 46.5 H, RDW Coeff of Anderson 14.5, Plt Count 150, MPV 12.8 H, Immature Gran % (Auto) 1.800 H, Neut % (Auto) 59.8, Lymph % (Auto) 31.6, Wise % (Auto) 6.4, Eos % (Auto) 0.0, Baso % (Auto) 0.4, Absolute Neuts (auto) 24.2 H, Absolute Lymphs (auto) 12.75 H, Nucleated RBC % 0.2, Atypical Lymphocytes 1+, Platelet Estimate ADEQUATE, RBC Morphology NORM C+C, Sodium 135, Potassium 5.1, Chloride 100, Carbon Dioxide 25.2, Anion Gap 10, BUN 75 H, Creatinine 1.17, Estim Creat Clear Calc 24.35 L, Est GFR (MDRD) Non-Af 47 L, BUN/Creatinine Ratio 64.3 H, Glucose 135 H, Calcium 8.7 08/28/24 07:45: Urine Color Yellow, Urine Clarity Clear, Urine pH 6.0, Ur Specific [place] 1.015, Urine Protein 30 H, Urine Glucose (UA) Normal, Urine Ketones Negative, Urine Occult Blood Negative, Urine Nitrite Negative, Urine Bilirubin Negative, Urine Urobilinogen Normal, Ur Leukocyte Esterase 100 H, Urine RBC 0-5 SEEN, Urine WBC 5-10 SEEN, Ur Squamous Epith Cells 0-5 SEEN, Urine Bacteria 0 SEEN, Hyaline Casts 10-25 SEEN, Fine Granular Casts 0-5 SEEN, Urine Mucus 0 SEEN Micro: Microbiology 08/23/24 12:50 Urine, Clean Catch Urine Culture - Final Culture exhibits no growth. 08/23/24 12:50 Urine, Clean Catch Legionella Antigen - Final 08/23/24 12:50 Urine, Clean Catch Streptococcus pneumoniae Antigen (M - Final 08/22/24 20:48 Mucosa - Nose Respiratory Panel (PCR) - Final Human [place] 08/22/24 17:38 Mucosa - Nose SARS-CoV-2, Influenza & RSV (PCR) - Final ABG Data ABG results: ABG 08/23/24 08:21 Specimen Type NAHOMY Sample Site Not entered VBG pH 7.31 L VBG pO2 53 H VBG HCO3 31 H VBG Total CO2 33 VBG O2 Sat (Calc) 82 H VBG Base Excess 5 H POC Mix VBG pCO2 Pt Tmp 61.3 H O2 Delivery Device Not entered Radiography Diagnostic Testing: Radiology Impression Chest X-Ray 08/27/24 13:20 IMPRESSION: Emphysema. No evidence of acute cardiopulmonary pathology. Other findings as noted. Reading Location: [id number] Physical Exam Const alert and oriented x3 Constitutional Narrative: Sitting in bedside recliner. Daughter is present at the bedside. General Appearance: cooperative and frail HEENT normocephalic and head/scalp atraumatic Eyes PERRL, EOMs intact bilaterally and conjunctivae normal Neck supple General: trachea midline Chest inspection of chest normal Resp normal respiratory effort and no use of accessory muscles Auscultation: diminished lung sounds; Negative for rales, rhonchi or wheezes Cardio regular rate and regular rhythm GI normal to inspection, nondistended, normoactive bowel sounds Extremity no clubbing, cyanosis or edema Skin no rashes or lesions noted Neuro CN's II-XII intact bilaterally, moves all extremities and no focal motor deficits Psych Mood & Affect: flat affect Charges/Coding Visit Charges Inpatient E&M: 91163 Subs Hosp L2
[2024-08-28] MEDS: Triamterene 37.5MG/Hctz 25MG Capsule 1 CAP PO (09:14)
[2024-08-28] MEDS: Aspirin E.C. 81 MG Tablet PO (09:14)
[2024-08-28] MEDS: Lactobacillis Acidophilus 1 CAP PO ×3 (09:14→22:25)
[2024-08-28] MEDS: NYSTATIN 500,000 UNIT/5 ML UDC 500000 UNIT PO ×3 (09:15→22:25)
[2024-08-28] MEDS: guaiFENesin/D-Methorphan TAB.SR.12H 2 TABLET PO ×2 (09:15→22:25)
--- NOTE | 2024-08-28 09:25 | CT_ITS ---
PROCEDURE: ABDOMEN/PELVIS WITHOUT CONT 08/28/2024 REASON FOR EXAM: ABDOMINAL PAIN History of breast cancer. TECHNIQUE: ABDOMEN/PELVIS WITHOUT CONT Noncontrast technique limits evaluation of the abdominal and pelvic viscera. Coronal and Sagittal reconstruction series were provided. One or more dose reduction techniques were used (e.g., Automated exposure control, adjustment of the mA and/or kV according to patient size, use of iterative reconstruction technique). RADIATION DOSE SUMMARY: CTDlvol: 5.16 mGy DLP: 204.59 mGycm COMPARISON: None FINDINGS: Bilateral breast prostheses are seen. Lung bases: Unremarkable Liver: There is a 1.6 cm hypodense nodule in the anterior aspect of the left lobe of the liver anteriorly. This is not a simple cyst. Correlation with ultrasound recommended. Gallbladder: The gallbladder is distended. Mild densities are seen within the gallbladder lumen. Correlation with ultrasound recommended to rule out possible sludge or gallstones. Spleen: Normal size. Pancreas: Diffuse fatty atrophy. Adrenals: Unremarkable. Kidneys: 1 cm cyst in the mid portion of the left kidney along its lateral margin. Bladder: Distended urinary bladder. Reproductive Organs: Prior hysterectomy. History of prior bilateral oophorectomy. Bowel: Colonic diverticulosis without diverticulitis. Appendix: The appendix is not identified. There is no inflammatory process identified in the right lower quadrant to suggest appendicitis. Lymph nodes: Unremarkable. Vasculature: Mild diffuse atherosclerotic calcifications are noted. Peritoneum / Retroperitoneum: Unremarkable Bones: Degenerative changes of the spine. CT/Abdomen/Pelvis without Cont IMPRESSION: 1.6 cm hypodense nodule in the anterior aspect of the left lobe of the liver. Gallbladder distention with possible small gallstones. Correlation with ultras ound recommended. Distended urinary bladder. Status post hysterectomy. Reading [facility]
[2024-08-28] MEDS: Lidocaine 5% Patch 1 PATCH TOPICAL (09:27)
--- NOTE | 2024-08-28 11:56 | US_ITS ---
PROCEDURE: ABDOMEN LIMITED 08/28/2024 REASON FOR EXAM: DISTENDED GB, LEUKOCYTOSIS TECHNIQUE: ABDOMEN LIMITED COMPARISON: CT abdomen from August 28, 2024 FINDINGS: Liver: Normal length of 14.0 cm. No ductal dilatation. Normal hepatopetal flow in the portal vein. Gallbladder: Gallbladder wall is thin. Gallbladder length is 5.4 cm. Sludge is present in the gallbladder. Sonographic Arreaga's sign is positive sludge is seen in the gallbladder. No pericholecystic fluid. Common bile duct: Diameter: 7 mm. Pancreas: Remarkable. Kidneys: The right kidney measures 8.9 by 4.3 x 4.2 cm. Cortex is within normal limits. Extra renal pelvis no hydronephrosis.. US/Abdomen Limited IMPRESSION: Sonographic Arreaga's sign is positive and there is sludge in the gallbladder. However, no pericholecystic fluid or wall edema Reading [facility]
[2024-08-28 13:33] LABS: AST(SGOT) 35 U/L (<=31); Alanine Aminotransfer ALT/SGPT 54 U/L (<=34); Albumin, Serum 3.6 g/dL (3.4-4.8); Alkaline Phosphatase 108 U/L (35-104); Bilirubin, Direct 0.19 mg/dL (0.00-0.30); Globulin 2.0 g/dL (2.2-4.2)
[2024-08-28 13:58] LABS: Procalcitonin 0.14 ng/mL (<=0.10)
--- NOTE | 2024-08-28 15:49 | CASEMGMT ---
Discharge Planning Updates sent to MARIKA ANGUIANO. Inna Elizabeth DC Planning Asst.
[2024-08-29] VITALS (9 sets, daily range): BP systolic 103–142; BP diastolic 70–107; PULSE 74–108; RESP 14–20; TEMP 36.4–36.7; O2SAT 90–99; BMI 16.8
[2024-08-29] MEDS: 0.9% Saline Lock 10 ML Syringe IV ×2 (04:46→18:39)
[2024-08-29 06:08] LABS: Hematocrit 44.4 % (37-47); Hemoglobin 14.6 g/dL (12.0-15.0); Immature Granulocytes Count 0.870 X10^3/uL (0.0-0.0); Mean Corp Hgb Conc 32.9 g/dL (32-36); Mean Corpuscular Volume 87.2 fL (81-99); Mean Platelet Vol. 12.8 fl (6.2-12.0); NRBC Flagged by Analyzer 0.3 % (0-5); POSITIVE COUNT YES; POSITIVE DIFFERENTIAL YES; Platelet Count 156 K/mm3 (150-450); RBC Distribution Width CV 14.6 % (11.6-14.6); RBC Distribution Width SD 46.5 fl (35.1-43.9); Red Blood Count 5.09 M/mm3 (4.2-5.4)
[2024-08-29 06:33] LABS: Differential Indicated SCAN CRITERIA MET; White Blood Count 41.6 K/mm3 (4.4-11.0)
[2024-08-29 06:46] LABS: AST(SGOT) 33 U/L (<=31); Alanine Aminotransfer ALT/SGPT 51 U/L (<=34); Albumin, Serum 3.7 g/dL (3.4-4.8); Alkaline Phosphatase 116 U/L (35-104); Anion Gap 11 (5-15); BUN 87 mg/dL (4-19); BUN/Creat Ratio 58.5 RATIO (10-20); Calcium,Total 8.9 mg/dL (7.6-11.0); Carbon Dioxide 25.1 mmol/L (21.0-32.0); Chloride 101 mmol/L (98-108); Estimated Creatinine Clearance 18.57 ml/min (50-250); Globulin 1.8 g/dL (2.2-4.2); Glucose 142 mg/dL (70-99); Potassium 5.6 mmol/L (3.3-5.1)
--- NOTE | 2024-08-29 07:00 | NM_ITS ---
PROCEDURE: HEPATOBILLIARY IMG W/PHARM INT 08/29/2024 REASON FOR EXAM: ? CHOLECYSTITIS TECHNIQUE: Intravenous Choletec with planar imaging of the abdomen. 0.8 mcg Kinevac intravenously approximately 60 minutes after the radiopharmaceutical with additional anterior imaging and a region of interest drawn around the gallbladder to calculate a time-activity curve. RADIOPHARMACEUTICAL: Mebrofenin DOSE 4.6mCi COMPARISON: 9 FINDINGS: There is good uptake of the radiopharmaceutical by the liver. Normal gallbladder visualization with the gallbladder identified by 30 minutes. Gallbladder Ejection Fraction: 8 % (Normal is >35%) NM/Hepatobilliary Img w/Pharm Int IMPRESSION: Abnormal gallbladder ejection fraction. Reading Location: [place] [id number]
--- NOTE | 2024-08-29 07:04 | PCM.PN.HOSP ---
Reason for Visit Reason for Visit: Diagnoses Elevated white blood cell count, unspecified (08/22/24) Essential (primary) hypertension (08/22/24) Nonrheumatic mitral (valve) insufficiency (08/22/24) Nonrheumatic tricuspid (valve) insufficiency (08/22/24) Pneumonia, unspecified organism (08/22/24) Chronic obstructive pulmonary disease with (acute) exacerbation (08/22/24) Acute respiratory failure, unspecified whether with hypoxia or hypercapnia (08/22/24) Acute respiratory failure with hypoxia (08/22/24) Other abnormalities of breathing (08/22/24) Subjective Subjective Patient overnight with no acute events per discussion with patient and staff. She does report still some abdominal vague discomfort and decreased appetite. Gallbladder ultrasound from the day prior in the evening was positive for sonographic Arreaga sign but no acute pericholecystic fluid noted. Case was discussed earlier this morning with general surgery who recommended a HIDA scan just to be cautious which was obtained and not marked appearing. Microbiology also contacted and there is no obvious growth on urine culture thus far. Patient did have urinary retention x 1 overnight requiring straight cath x 1 but has had nothing concerning since. Discussed current presentation with patient and daughter in conjunction with infectious disease with plan for continued broad-spectrum antibiotic therapy which was also started today specifically IV Zosyn with plan reevaluation following repeat labs 08/30/2024. In addition General Surgery did start Protonix given recent steroid usage in case gastritis is a component. Patient denies fevers, chills, nausea, emesis, chest pain or dyspnea. Objective Data Objective Data Vital Signs: Vital Signs Temp Pulse Resp BP Pulse Ox O2 Del Method O2 Flow Rate 98 F 84 16 142/107 H 99 Nasal Cannula 6 08/29/24 02:49 08/29/24 07:02 08/29/24 07:02 08/29/24 02:49 08/29/24 07:02 08/29/24 07:02 08/29/24 07:02 FiO2 30 08/29/24 02:00 Oxygen Flow Rate (L/min) 6 Oxygen Delivery Method Nasal Cannula Weight: 89 lb 1.068 oz Body Mass Index (BMI) 16.8 Intake & Output: Intake and Output for Last 24 Hours 08/27/24 08/28/24 08/29/24 23:59 23:59 23:59 Intake Total 150 / 150 150 / 150 Output Total 100 / 100 745 / 745 803 / 803 Balance 50 / 50 -745 / -595 -653 / -653 Lab / Micro Data 08/29/24 05:52 08/29/24 05:52 Labs: Laboratory Results - last 24 hr 08/28/24 05:15: Total Bilirubin 0.46, Direct Bilirubin 0.19, AST 35 H, ALT 54 H, Alkaline Phosphatase 108 H, Total Protein 5.5 L, Albumin 3.6, Globulin 2.0 L, Procalcitonin 0.14 H 08/28/24 07:45: Urine Color Yellow, Urine Clarity Clear, Urine pH 6.0, Ur Specific [place] 1.015, Urine Protein 30 H, Urine Glucose (UA) Normal, Urine Ketones Negative, Urine Occult Blood Negative, Urine Nitrite Negative, Urine Bilirubin Negative, Urine Urobilinogen Normal, Ur Leukocyte Esterase 100 H, Urine RBC 0-5 SEEN, Urine WBC 5-10 SEEN, Ur Squamous Epith Cells 0-5 SEEN, Urine Bacteria 0 SEEN, Hyaline Casts 10-25 SEEN, Fine Granular Casts 0-5 SEEN, Urine Mucus 0 SEEN 08/29/24 05:52: WBC 41.6 H*, RBC 5.09, Hgb 14.6, Hct 44.4, MCV 87.2, MCH 28.7, MCHC 32.9, RDW Std Deviation 46.5 H, RDW Coeff of Anderson 14.6, Plt Count 156, MPV 12.8 H, Immature Gran % (Auto) 2.100 H, Neut % (Auto) 58.4, Lymph % (Auto) 33.2, [place] % (Auto) 5.9, Eos % (Auto) 0.0, Baso % (Auto) 0.4, Absolute Neuts (auto) 24.3 H, Absolute Lymphs (auto) 13.80 H, Nucleated RBC % 0.3, Sodium 137, Potassium 5.6 H, Chloride 101, Carbon Dioxide 25.1, Anion Gap 11, BUN 87 H, Creatinine 1.49 H, Estim Creat Clear Calc 18.57 L, Est GFR (MDRD) Non-Af 35 L, BUN/Creatinine Ratio 58.5 H, Glucose 142 H, Calcium 8.9, Total Bilirubin 0.52, AST 33 H, ALT 51 H, Alkaline Phosphatase 116 H, Total Protein 5.5 L, Albumin 3.7, Globulin 1.8 L, Albumin/Globulin Ratio 2.0 Micro: Microbiology 08/23/24 12:50 Urine, Clean Catch Urine Culture - Final Culture exhibits no growth. 08/23/24 12:50 Urine, Clean Catch Legionella Antigen - Final 08/23/24 12:50 Urine, Clean Catch Streptococcus pneumoniae Antigen (M - Final 08/22/24 20:48 Mucosa - Nose Respiratory Panel (PCR) - Final Human [place] 08/22/24 17:38 Mucosa - Nose SARS-CoV-2, Influenza & RSV (PCR) - Final Radiography Diagnostic Testing: Radiology Impression Abdomen/Pelvis CT 08/28/24 09:25 IMPRESSION: 1.6 cm hypodense nodule in the anterior aspect of the left lobe of the liver. Gallbladder distention with possible small gallstones. Correlation with ultrasound recommended. Distended urinary bladder. Status post hysterectomy. [facility] 08/28/24 11:56 IMPRESSION: Sonographic Arreaga's sign is positive and there is sludge in the gallbladder. However, no pericholecystic fluid or wall edema Reading Location: [facility] Physical Exam Narrative Physical Examination: General: Awake, alert, oriented to self, place and recent events, remains cooperative, seated upright in the PCU bed, fatigued appearing more so than day prior. Skin: Normal color, normal turgor, no icterus, no cyanosis except occasional stage ecchymoses, abrasion. HEENT: AT/NC, EOMI, PERRLA, mildly dry MM. Lungs: CTA bilaterally, moderate effort, mild decrease BL bases, no rales, ronchi or wheezing. Heart: Regular rate and rhythm; no gallop, rub audible. Abdomen: Soft, still some mild right upper quadrant discomfort with palpation but no rebound or guarding, no current suprapubic recurrent TTP, no marked distention, mildly hyperactive BS. Extremities: No cyanosis, clubbing, or edema. Neurological: Patient awake, alert, oriented as noted, cognitive function intact but fatigued; pupils equally reactive to light and accommodation, cranial nerves grossly normal, moving all 4 extremities, no focal deficits, strength severely decreased. Psychiatric: Affect appears flat, fatigued, no acute evidence of depressive or anxiety feelings. Assessment & Plan Assessment/Plan (1) COPD exacerbation: PLAN: Plan The patient is an 84 y/o F w/ PMHx: CKD stage II per GFR trending, HTN, HLD, Former tobacco use, COPD w/ Chronic Hypoxic Respiratory Failure (3.5L NC q HS), Hx CML/CLL, Valvular Heart Disease, Hx SBO, Hx Breast CA unclear type s/p remote mastectomy (1982) and reconstruction, Hx Cervical CA s/p hysterectomy who presents to the [facility] ED on 08/22/2024 with ongoing progressively worsening dyspnea and cough starting 3 to 4 days previous as well as URI type symptoms including wheezing and recent urgent care evaluation with noted hypoxia 88% on room air prompting referral to the ED for evaluation. #1. Acute hypercarbic on chronic hypoxic respiratory failure secondary to Acute COPD exacerbation secondary to acute human metapneumovirus bronchitis/acute viral syndrome: Patient admitted to the PCU, full respiratory panel with human metapneumovirus, urine antigens negative, COVID-negative, chest x-ray with COPD type changes, CT chest follow-up with contrast with nodular densities in posterior aspect of left lower lobe and pleural-based spiculated density favoring scarring in the posterior right lower lobe with severe emphysematous changes and bilateral linear atelectasis, maintained on scheduled DuoNeb therapy, PRN Albuterol, Mucinex, Pep therapy, aggressive I-S and encouraged head of bed, initially maintained on IV Solu-Medrol however given significant leukocytosis transitioned to oral prednisone therapy with plan for 5-day duration burst therapy per pulmonary recommendation, initially attempted BiPAP however unable to tolerate therefore placed on low-dose Ativan and Seroquel transition to BuSpar 10 mg p.o. twice daily in addition to Seroquel low-dose 25 mg p.o. twice daily; however, given transitioned off D/C. Maintained on oral doxycycline 100 mg p.o. twice daily with de-escalation off 08/29/2024. Pulmonary medicine consulted and following. #2. Suprapubic discomfort, abdominal pain of unclear etiology complicated by significant leukocytosis: Initially suspected leukocytosis secondary to primarily IV Solu-Medrol with eventual prednisone transition. Urinalysis not marked appearing but patient did have 08/28/2024 1 episode of urinary retention but none since per discussion with staff. Given CT findings with noted gallbladder mild distention and possible stones gallbladder ultrasound obtained with positive sonographic Arreaga sign but no significant stones only sludge noted and no pericholecystic fluid. Discussed with general surgery 08/29/2024 and HIDA scan obtained but was noted to be negative for acute cholecystitis. Procalcitonin minimally elevated. 08/29/2024 LFTs with AST/LT 33/51, alk phos 116. Currently maintained on IV Zosyn given initial concerns for possibly cholecystitis but as noted HIDA negative, surgery feels not an acute concern. MRSA screen requested. 08/29/24 discussed with microbiology and UCx 08/28/24 with no current marked growth thus far. Infectious disease following and recommended continued empiric zosyn for now. #3. ARIANA on Chronic Kidney Disease Stage II per GFR trending: Admission BUN/Cr 31/0.76, GFR 79, baseline renal function primarily 0.7-0.9, 08/28/2024 BUN/creatinine 75/1.17, GFR 47--> 08/29/2024 BUN/creatinine increased to 87/1.49, possibly related with #2, will need to assure no retention and if this is the case continue will place Lazaro catheter with Flomax. Will continue to judiciously hydrate and hold nephrotoxic medication (recently reinitiated triamterene/hydrochlorothiazide). #4. Oral thrush: Patient with chronic issues with oral thrush, will maintain on oral nystatin regimen. #5. 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 Shields, not necessarily remission per discussion but on continued observation, encouraged continued follow-up as previously arranged. #6. Dementia with chronic mild cognitive impairment, unclear type with unclear behavioral disturbance history: Complicates presentation, maintain on fall and aspiration precautions, therapies consulted as well as case management, continued on rivastigmine regimen. #7. Hypertension: Given ARIANA as noted holding triamterene/hydrochlorothiazide, PRN hydralazine. #8. Hyperlipidemia: Not on regimen, defer to outpatient. #9. History of breast cancer: Unclear specific location or specific type, status post remote 1992 bilateral mastectomy, eventual reconstructive surgery 2016, considered in remission, encouraged continued follow-up as previously arranged. #10. Chronic degenerative arthritis, chronic left shoulder pain, chronic neck pain: Complicates presentation, maintain on fall precautions, offloading, continue therapies as consulted, PRN Tylenol. #11. Valvular heart disease: 08/23/2024 echocardiogram with EF 60%, posterior mitral valve prolapse, mild MR, grade 1 diastolic dysfunction, mild TR with no significant change from previous echocardiogram. #12. Allergic rhinitis: Will continue patient home loratadine regimen. #13. Former tobacco use: Encouraged continued tobacco cessation. #14. GERD: Maintained on PPI. #15. DVT prophylaxis: Heparin. #16. CODE STATUS: DNR-CCA, no intubation. Charges/Coding Visit Charges Inpatient E&M: 81178 Subs Hosp L3
--- NOTE | 2024-08-29 10:46 | PCM.CONS.GEN ---
Assessment & Plan Assessment/Plan (1) COPD exacerbation: (2) Leukocytosis: QUALIFIERS: Leukocytosis type: unspecified Qualified Code(s): D72.829 - Elevated white blood cell count, unspecified PLAN: suspect gallbladder as source. HIDA and surg consult pending. Cont zosyn. Will follow, thank you HPI Consult Data Date of Consult: 08/29/24 HPI Narrative Reason for Consultation: leukocytosis HPI Narrative: EM PENALOZA, is a 84 F with copd, presented 08/22 with increased cough, dyspnea, hypoxia. Seen by pulm, given steroids and doxy, breathing improved. Now reports about one week progressive upper/mid abd pain worse with food intake, limited appetite, nausea, not feeling well. Daughter reports minimal po intake over past few days. Zosyn added, CT and US done, surgery consulted. Mild occasional dysuria, but not recently. Full ROS performed and neg except as noted above. [facility] Medical History Intractable back pain Sciatica Radicular pain of lower extremity Lumbar back pain Thrush Hx of small bowel obstruction Gastritis Constipation Arthritis Easy bruising Back pain Gastric reflux Former smoker On home oxygen therapy Hoarseness Leg cramps History of edema Hypertension Cardiology follow-up encounter History of stress test History of echocardiogram Abdominal pain Meniere disease Essential hypertension History of bilateral breast cancer Cervical cancer Nonrheumatic tricuspid valve regurgitation Nonrheumatic mitral valve regurgitation Pneumothorax CML (chronic myelocytic leukemia) Weight loss COPD (chronic obstructive pulmonary disease) CLL (chronic lymphocytic leukemia) Home Medications ?Medication ?Instructions ?Recorded ?Last Taken ?Type triamterene 37.5 1 tab PO DAILY bp 04/19/19 08/22/24 History mg-hydrochlorothiazide 25 mg tablet meclizine 25 mg chewable tablet 25 mg PO BID PRN vertigo #20 tabs 04/15/22 08/22/24 Rx (Antivert) Ventolin HFA 90 mcg/actuation 2 puff inhalation Q4H PRN 01/12/24 Unknown Rx aerosol inhaler (albuterol sulfate) shortness of breath or wheezing #3 device acetaminophen 325 mg capsule 650 mg PO Q4H PRN pain 01/12/24 Unknown History fluticasone 232 mcg-salmeterol 14 1 inh inhalation Q12H copd #1 ea 01/12/24 08/22/24 Rx mcg/actuation breath activated powdr (AirDuo RespiClick) rivastigmine tartrate 1.5 mg 1.5 mg PO BID memory 01/12/24 08/22/24 History capsule tiotropium bromide 18 mcg capsule 18 mcg inhalation DAILY copd #3 ea 01/12/24 08/22/24 Rx with inhalation device Allergy/AdvReac Type Severity Reaction Status Date / Time shellfish derived Allergy Severe Anaphylaxis Verified 08/22/24 16:36 bacitracin Allergy Rash Verified 08/22/24 16:36 codeine Allergy Rash Verified 08/22/24 16:36 latex Allergy IF PT USES Verified 08/22/24 16:36 LATEX GLOVES GETS RASH walnut Allergy Swelling Verified 08/22/24 16:36 amoxicillin (From Augmentin) AdvReac Mild Vomiting Verified 08/22/24 16:36 clavulanic acid (From AdvReac Mild Vomiting Verified 08/22/24 16:36 Augmentin) Family History Father Abdominal aortic aneurysm (AAA) Mother Alzheimers disease Surgical History History of esophagogastroduodenoscopy (EGD) Hx of bilateral cataract extraction Hx of lymph node excision Hx of bilateral oophorectomy Hx of colonoscopy History of dilatation and curettage History of lung surgery History of bladder surgery History of cataract surgery History of breast reconstruction History of mastectomy Social History household members: spouse number of children: 2 current occupational status: retired Smoking Status: Former smoker quit date: 02/22/94 how long ago did patient quit smokin ppd since 20s alcohol intake: current alcohol intake frequency: holidays/special occasions only Alcohol type: wine details: 4 glasses wine per week substance use type: does not use Physical Exam Const alert and no apparent distress General Appearance: cooperative HEENT normocephalic and head/scalp atraumatic Eyes PERRL and EOMs intact bilaterally Neck supple and No nodes Resp normal air movement and clear to auscultation bilaterally Cardio regular rate and regular rhythm GI soft to palpation and non-distended GI Narrative: mild RUQ soreness Extremity General Extremity: Negative for edema Skin no rashes or lesions noted Neuro CN's II-XII intact bilaterally Lab / Micro Data Attestation: I reviewed the patient's lab results. 08/29/24 05:52 08/29/24 05:52 Labs: Laboratory Results - last 24 hr 08/28/24 05:15: Total Bilirubin 0.46, Direct Bilirubin 0.19, AST 35 H, ALT 54 H, Alkaline Phosphatase 108 H, Total Protein 5.5 L, Albumin 3.6, Globulin 2.0 L, Procalcitonin 0.14 H 08/29/24 05:52: WBC 41.6 H*, RBC 5.09, Hgb 14.6, Hct 44.4, MCV 87.2, MCH 28.7, MCHC 32.9, RDW Std Deviation 46.5 H, RDW Coeff of [place] 14.6, Plt Count 156, MPV 12.8 H, Immature Gran % (Auto) 2.100 H, Neut % (Auto) 58.4, Lymph % (Auto) 33.2, [place] % (Auto) 5.9, Eos % (Auto) 0.0, Baso % (Auto) 0.4, Absolute Neuts (auto) 24.3 H, Absolute Lymphs (auto) 13.80 H, Nucleated RBC % 0.3, Atypical Lymphocytes 2+, Platelet Estimate A, Sodium 137, Potassium 5.6 H, Chloride 101, Carbon Dioxide 25.1, Anion Gap 11, BUN 87 H, Creatinine 1.49 H, Estim Creat Clear Calc 18.57 L, Est GFR (MDRD) Non-Af 35 L, BUN/Creatinine Ratio 58.5 H, Glucose 142 H, Calcium 8.9, Total Bilirubin 0.52, AST 33 H, ALT 51 H, Alkaline Phosphatase 116 H, Total Protein 5.5 L, Albumin 3.7, Globulin 1.8 L, Albumin/Globulin Ratio 2.0 Imaging Radiology Impression Abdomen/Pelvis CT 08/28/24 09:25 IMPRESSION: 1.6 cm hypodense nodule in the anterior aspect of the left lobe of the liver. Gallbladder distention with possible small gallstones. Correlation with ultrasound recommended. Distended urinary bladder. Status post hysterectomy. Reading Location: [facility] Abdomen Ultrasound 08/28/24 11:56 IMPRESSION: Sonographic Arreaga's sign is positive and there is sludge in the gallbladder. However, no pericholecystic fluid or wall edema Reading [facility]
[2024-08-29] MEDS: Pantoprazole Sodium 40 MG in 0.9% Normal Saline (100mL MB+) 100 ML 330 MG IV (12:30)
[2024-08-29] MEDS: 0.9% Normal Saline (1000mL) 1,000 ML 100 ML IV (12:30)
[2024-08-29] MEDS: Piperacil/Tazobactam 3.375 GM in 0.9% Normal Saline (50mL MB+) 50 ML IV ×3 (12:34→21:25)
[2024-08-29] MEDS: Lactobacillis Acidophilus 1 CAP PO ×3 (12:39→21:29)
[2024-08-29] MEDS: Aspirin E.C. 81 MG Tablet PO (12:39)
[2024-08-29] MEDS: NYSTATIN 500,000 UNIT/5 ML UDC 500000 UNIT PO ×3 (12:40→21:27)
[2024-08-29] MEDS: Heparin Injection (Vial) 5,000 UNIT/ML VIAL 5000 UNIT SC ×2 (12:40→21:27)
[2024-08-29] MEDS: Lidocaine 5% Patch 1 PATCH TOPICAL (12:41)
[2024-08-29] MEDS: guaiFENesin/D-Methorphan TAB.SR.12H 2 TABLET PO (12:47)
--- NOTE | 2024-08-29 14:54 | CON.PCM.SX_ITS ---
Assessment & Plan Assessment/Plan (1) Leukocytosis: QUALIFIERS: Leukocytosis type: unspecified Qualified Code(s): D 72.829 - Elevated white blood cell count, unspecified PLAN: I was consulted for possible gallbladder etiology to the patient's white count. The patient has been on steroids for a week and she is likely not eating because she has gastritis from the steroids. I will started her on a PPI. I ordered a HIDA to evaluate the gallbladder which showed prompt visualization with a lower ejection fraction. Given the fact that it showed visualization I do not believe that she has acute cholecystitis. The patient had some mild epigastric pain for me but no right upper quadrant pain and no Arreaga sign. When I asked her what hurts she only pointed to her lower left back. Omid Garcia MD Pager: [facility] [address] [place] [address], [address] [place] [phone] Office: HPI Consult Data Date of Consult: 08/29/24 HPI Narrative HPI Narrative: EM PENALOZA, is a 84 F who presentsWith COPD exacerbation. The patient was started on steroids for the last week and started having increased leukocytosis. The patient had a CT scan and ultrasound of the gallbladder. She is only complaining of lower back pain for me. She is not complaining of abdominal pain. According to her family member she has been taking less p.o. intake. [facility] Medical History Intractable back pain Sciatica Radicular pain of lower extremity Lumbar back pain Thrush Hx of small bowel obstruction Gastritis Constipation Arthritis Easy bruising Back pain Gastric reflux Former smoker On home oxygen therapy Hoarseness Leg cramps History of edema Hypertension Cardiology follow-up encounter History of stress test History of echocardiogram Abdominal pain Meniere disease Essential hypertension History of bilateral breast cancer Cervical cancer Nonrheumatic tricuspid valve regurgitation Nonrheumatic mitral valve regurgitation Pneumothorax CML (chronic myelocytic leukemia) Weight loss COPD (chronic obstructive pulmonary disease) CLL (chronic lymphocytic leukemia) Home Medications ?Medication ?Instructions ?Recorded ?Last Taken ?Type triamterene 37.5 1 tab PO DAILY bp 04/19/19 0 08/22/24 History mg-hydrochlorothiazide 25 mg tablet meclizine 25 mg chewable tablet 25 mg PO BID PRN verti go #20 tabs 04/15/22 08/22/24 Rx (Antivert) Ventolin HFA 90 mcg/actuation 2 puff inhalation Q4H NE N 01/12/24 Unknown Rx aerosol inhaler (albuterol sulfate) shortness of breat h or wheezing #3 device acetaminophen 325 mg capsule 650 mg PO Q4H PRN pain Unknown History fluticasone 232 mcg-salmeterol 14 1 inh inhalation Q12 H copd #1 ea 01/12/24 08/22/24 Rx mcg/actuation breath activated powdr (AirDuo RespiClick) rivastigmine tartrate 1.5 mg 1.5 mg PO BID memory 12/2408/22/24 History capsule tiotropium bromide 18 mcg capsule 18 mcg inhalation DA JUDE copd #3 ea 01/12/24 08/22/24 Rx with inhalation device Allergy/AdvReac Type Severity Reaction Status Date / Time shellfish derived Allergy Severe Anaphylaxis Verified 08/22/24 16:36 bacitracin Allergy Rash Verified 08/22/24 16:36 codeine Allergy Rash Verified 08/22/24 16:36 latex Allergy IF PT USES Verified 08/22/24 16:36 LATEX GLOVES GETS RASH walnut Allergy Swelling Verified 08/22/24 16:36 amoxicillin (From Augmentin) AdvReac Mild Vomiting Verified 08/22/24 16:36 clavulanic acid (From AdvReac Mild Vomiting Verified 08/22/24 16:36 Augmentin) Family History Father Abdominal aortic aneurysm (AAA) Mother Alzheimers disease Surgical History History of esophagogastroduodenoscopy (EGD) Hx of bilateral cataract extraction Hx of lymph node excision Hx of bilateral oophorectomy Hx of colonoscopy History of dilatation and curettage History of lung surgery History of bladder surgery History of cataract surgery History of breast reconstruction History of mastectomy Social History household members: spouse number of children: 2 current occupational status: retired Smoking Status: Former smoker quit date: 02/22/94 how long ago did patient quit smokin ppd since 20s alcohol intake: current alcohol intake frequency: holidays/special occasions only Alcohol type: wine details: 4 glasses wine per week substance use type: does not use Physical Exam Const alert and oriented x3 General Appearance: cooperative HEENT normocephalic Head and Scalp: normal to inspection Eyes PERRL Resp normal respiratory effort Cardio Rate: regular rate Rhythm: regular rhythm GI normal to inspection, nondistended, normoactive bowel sounds Lab / Micro Data 08/29/24 05:52 08/29/24 05:52 Labs: Laboratory Results - last 24 hr 08/29/24 05:52: WBC 41.6 H*, RBC 5.09, Hgb 14.6, Hct 44.4, MCV 87.2, MCH 28.7, MCHC 32.9, RDW Std Deviation 46.5 H, RDW Coeff of [place] 14.6, Plt Count 156, MPV 12.8 H, Immature Gran % (Auto) 2.100 H, Neut % (Auto) 58.4, Lymph % (Auto) 33.2, [place] % (Auto) 5.9, Eos % (Auto) 0.0, Baso % (Auto) 0.4, Absolute Neuts (auto) 24.3 H, Absolute Lymphs (auto) 13.80 H, Nucleated RBC % 0.3, Atypical Lymphocytes 2+, Platelet Estimate A, Sodium 137, Potassium 5.6 H, Chloride 101, Carbon Dioxide 25.1, Anion Gap 11, BUN 87 H, Creatinine 1.49 H, Estim Creat Clear Calc 18.57 L, Est GFR (MDRD) Non-Af 35 L, BUN/Creatinine Ratio 58.5 H, G lucose 142 H, Calcium 8.9, Total Bilirubin 0.52, AST 33 H, ALT 51 H, Alkaline Phosphatase 116 H, Total Protein 5.5 L, Albumin 3.7, Globulin 1.8 L, Albumin/Globulin Ratio 2.0 Imaging Radiology Impression Abdomen Ultrasound 08/28/24 11:56 IMPRESSION: Sonographic Arreaga's sign is positive and there is sludge in the gallbladder. However, no pericholecystic fluid or wall edema Reading [facility] Hepatobiliary Scan Nuclear Medicine 08/29/24 07:00 IMPRESSION: Abnormal gallbladder ejection fraction. Reading Location: [facility]
[2024-08-29 15:54] LABS: Magnesium 2.2 mg/dL (1.5-2.2)
--- NOTE | 2024-08-29 16:09 | CASEMGMT ---
SHANTELL REYNAGA in to patient's room to discuss discharge planning with daughter, Johanna. Daughter states she spoke WVM about patient going to the skilled side for additional therapy. Daughter is agreeable for CM to update WVM regarding requests for skilled stay. Daughter had no further questions or concerns. SHANTELL REYNAGA updated DC Director Of Labor Relations to update WVM. CM will continue to follow this patient and plan for a safe discharge.
[2024-08-29] MEDS: proCHLORPERazine 25 MG Suppos. RC (16:44)
[2024-08-29] MEDS: MELATONIN 10 MG TABLET PO (21:29)
--- NOTE | 2024-08-29 23:31 | CPS ---
pt declined bipap at this time
[2024-08-30] VITALS (13 sets, daily range): BP systolic 98–126; BP diastolic 70–111; PULSE 70–138; RESP 16–41; TEMP 36.3–36.8; O2SAT 90–97; BMI 17.0
[2024-08-30 05:10] LABS: Hematocrit 40.4 % (37-47); Hemoglobin 13.0 g/dL (12.0-15.0); Immature Granulocytes Count 1.190 X10^3/uL (0.0-0.0); Mean Corp Hgb Conc 32.2 g/dL (32-36); Mean Corpuscular Volume 89.0 fL (81-99); Mean Platelet Vol. 12.8 fl (6.2-12.0); NRBC Flagged by Analyzer 0.4 % (0-5); POSITIVE COUNT YES; POSITIVE DIFFERENTIAL YES; Platelet Count 168 K/mm3 (150-450); RBC Distribution Width CV 14.8 % (11.6-14.6); RBC Distribution Width SD 48.3 fl (35.1-43.9); Red Blood Count 4.54 M/mm3 (4.2-5.4)
[2024-08-30 05:29] LABS: White Blood Count 31.6 K/mm3 (4.4-11.0)
[2024-08-30 05:30] LABS: Differential Indicated SCAN CRITERIA MET
[2024-08-30 05:41] LABS: AST(SGOT) 33 U/L (<=31); Alanine Aminotransfer ALT/SGPT 51 U/L (<=34); Albumin, Serum 3.1 g/dL (3.4-4.8); Alkaline Phosphatase 114 U/L (35-104); Anion Gap 11 (5-15); BUN 72 mg/dL (4-19); BUN/Creat Ratio 59.2 RATIO (10-20); Calcium,Total 8.3 mg/dL (7.6-11.0); Carbon Dioxide 27.9 mmol/L (21.0-32.0); Chloride 102 mmol/L (98-108); Estimated Creatinine Clearance 22.86 ml/min (50-250); Globulin 1.7 g/dL (2.2-4.2); Glucose 93 mg/dL (70-99); Potassium 4.4 mmol/L (3.3-5.1)
[2024-08-30] MEDS: Piperacil/Tazobactam 3.375 GM in 0.9% Normal Saline (50mL MB+) 50 ML IV ×3 (05:59→23:30)
[2024-08-30 06:03] LABS: Differential Comment SCANNED
--- NOTE | 2024-08-30 06:50 | PCM.PN.HOSP ---
Reason for Visit Reason for Visit: Diagnoses Elevated white blood cell count, unspecified (08/22/24) Essential (primary) hypertension (08/22/24) Nonrheumatic mitral (valve) insufficiency (08/22/24) Nonrheumatic tricuspid (valve) insufficiency (08/22/24) Pneumonia, unspecified organism (08/22/24) Chronic obstructive pulmonary disease with (acute) exacerbation (08/22/24) Acute respiratory failure, unspecified whether with hypoxia or hypercapnia (08/22/24) Acute respiratory failure with hypoxia (08/22/24) Other abnormalities of breathing (08/22/24) Subjective Subjective Patient overnight with no acute events per self and per nursing report. Today patient does feel improved she notes and is more talkative and smiling. Her white count did decrease. She has remained afebrile. Discussed with patient and daughter that she has remained on IV Zosyn per discussion with infectious disease despite unremarkable HIDA scan given unclear etiology for leukocytosis. Patient did have evaluation today by speech therapy and she did have mild to moderate notable dysphagia therefore also concern aspiration a component however repeat chest x-ray with no overt concerns for developing infiltrate. She notes her stomach feels improved and is denying any abdominal pain at this time. Patient denies fevers, chills, nausea, emesis, chest pain or dyspnea. Objective Data Objective Data Vital Signs: Vital Signs Temp Pulse Resp BP Pulse Ox O2 Del Method O2 Flow Rate 98.0 F 90 17 119/98 H 93 Nasal Cannula 2 08/30/24 02:55 08/30/24 02:55 08/30/24 02:55 08/30/24 02:55 08/30/24 02:55 08/30/24 02:55 08/30/24 02:55 FiO2 30 08/29/24 02:00 Oxygen Flow Rate (L/min) 2 Oxygen Delivery Method Nasal Cannula Weight: 90 lb 6.232 oz Body Mass Index (BMI) 17.0 Intake & Output: Intake and Output for Last 24 Hours 08/28/24 08/29/24 08/30/24 23:59 23:59 23:59 Intake Total 1350 / 1470 370 / 370 Output Total 745 / 745 803 / 1253 1418 / 1418 Balance -745 / -595 547 / 217 -1048 / -1048 Lab / Micro Data 08/30/24 04:42 08/30/24 04:42 Labs: Laboratory Results - last 24 hr 08/29/24 05:52: Diff Path Review May foll, Atypical Lymphocytes 2+, Platelet Estimate A, Magnesium 2.2 08/30/24 04:42: WBC 31.6 H*, RBC 4.54, Hgb 13.0, Hct 40.4, MCV 89.0, MCH 28.6, MCHC 32.2, RDW Std Deviation 48.3 H, RDW Coeff of Anderson 14.8 H, Plt Count 168, MPV 12.8 H, Immature Gran % (Auto) 3.800 H, Neut % (Auto) 48.3, Lymph % (Auto) 42.2 H, Stephens % (Auto) 5.0, Eos % (Auto) 0.1, Baso % (Auto) 0.6, Absolute Neuts (auto) 15.3 H, Absolute Lymphs (auto) 13.35 H, Nucleated RBC % 0.4, Differential Comment SCANNED, Diff Path Review 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 08/23/24 12:50 Urine, Clean Catch Legionella Antigen - Final 08/23/24 12:50 Urine, Clean Catch Streptococcus pneumoniae Antigen (M - Final 08/22/24 20:48 Mucosa - Nose Respiratory Panel (PCR) - Final Human Reeves 08/22/24 17:38 Mucosa - Nose SARS-CoV-2, Influenza & RSV (PCR) - Final Radiography Diagnostic Testing: Radiology Impression Hepatobiliary Scan Nuclear Medicine 08/29/24 07:00 IMPRESSION: Abnormal gallbladder ejection fraction. Reading Location: [facility] Physical Exam Narrative Physical Examination: General: Awake, alert, oriented to self, place and recent events, remains cooperative, seated upright in the PCU bed, more comfortable and alert than day prior, intermittently smiling. Skin: Normal color, normal turgor, no icterus, no cyanosis except occasional stage ecchymoses, abrasion. HEENT: AT/NC, EOMI, PERRLA, MMM. Lungs: Mildly diminished, greater bases, appropriate effort, no rales, ronchi or wheezing. Heart: Regular rate and rhythm; no gallop, rub audible. Abdomen: Soft, improved, NTTP, no marked distention, mildly hyperactive BS. Extremities: No cyanosis, clubbing, or edema. Neurological: Patient awake, alert, oriented as noted, cognitive function intact, more interactive than day prior, pupils equally reactive to light and accommodation, cranial nerves grossly normal, moving all 4 extremities, no focal deficits, strength moderately to severely decreased. Psychiatric: Affect appears less fatigued, more baseline, smiling or mentally, no acute evidence of depressive or anxiety feelings. Assessment & Plan Assessment/Plan (1) COPD exacerbation: PLAN: Plan The patient is an 84 y/o F w/ PMHx: CKD stage II per GFR trending, HTN, HLD, Former tobacco use, COPD w/ Chronic Hypoxic Respiratory Failure (3.5L NC q HS), Hx CML/CLL, Valvular Heart Disease, Hx SBO, Hx Breast CA unclear type s/p remote mastectomy (1982) and reconstruction, Hx Cervical CA s/p hysterectomy who presents to the [facility] ED on 08/22/2024 with ongoing progressively worsening dyspnea and cough starting 3 to 4 days previous as well as URI type symptoms including wheezing and recent urgent care evaluation with noted hypoxia 88% on room air prompting referral to the ED for evaluation. #1. Acute hypercarbic on chronic hypoxic respiratory failure secondary to Acute COPD exacerbation secondary to acute human metapneumovirus bronchitis/acute viral syndrome: Patient admitted to the PCU, full respiratory panel with human metapneumovirus, urine antigens negative, COVID-negative, chest x-ray with COPD type changes, CT chest follow-up with contrast with nodular densities in posterior aspect of left lower lobe and pleural-based spiculated density favoring scarring in the posterior right lower lobe with severe emphysematous changes and bilateral linear atelectasis, maintained on scheduled DuoNeb therapy, PRN Albuterol, Mucinex, Pep therapy, aggressive I-S and encouraged head of bed, initially maintained on IV Solu-Medrol however given significant leukocytosis transitioned to oral prednisone therapy with plan for 5-day duration burst therapy per pulmonary recommendation, initially attempted BiPAP however unable to tolerate therefore placed on low-dose Ativan and Seroquel transition to BuSpar 10 mg p.o. twice daily in addition to Seroquel low-dose 25 mg p.o. twice daily; however, given transitioned off D/C. Maintained on oral doxycycline 100 mg p.o. twice daily through 08/29/2024. Pulmonary medicine consulted and following. #2. Suprapubic discomfort, abdominal pain of unclear etiology complicated by significant leukocytosis: Initially suspected leukocytosis secondary to primarily IV Solu-Medrol with eventual prednisone transition. Urinalysis not marked appearing but patient did have 08/28/2024 1 episode of urinary retention but none since per discussion with staff. Given CT findings with noted gallbladder mild distention and possible stones gallbladder ultrasound obtained with positive sonographic Arreaga sign but no significant stones only sludge noted and no pericholecystic fluid. Discussed with general surgery 08/29/2024 and HIDA scan obtained but was noted to be negative for acute cholecystitis. Procalcitonin minimally elevated. 08/29/2024 LFTs with AST/LT 33/51, alk phos 116. Currently maintained on IV Zosyn given initial concerns for possibly cholecystitis but as noted HIDA negative, surgery feels not an acute concern. MRSA screen requested. 08/29/24 discussed with microbiology and UCx 08/28/24 with no current marked growth thus far. Infectious disease following and recommended continued empiric zosyn for now. 08/30/2024 CBC with WBC improvement to 31.6, remained afebrile overnight and clinically appears improved and noted to be feeling better. Patient did have speech therapy evaluation with noted mild to moderate dysphagia thus concern for aspiration as potentially component although repeat chest x-ray with no overt findings. Per discussion with infectious disease 08/30/2024 if patient continues to clinically improve would plan discharge on 10 to 14-day total antibiotic therapy with transition off of Zosyn at discharge to likely Augmentin although could certainly consider cefdinir plus Flagyl or Cipro plus Flagyl. #3. ARIANA on Chronic Kidney Disease Stage II per GFR trending, improving: Admission BUN/Cr 31/0.76, GFR 79, baseline renal function primarily 0.7-0.9, 08/28/2024 BUN/creatinine 75/1.17, GFR 47--> 08/29/2024 BUN/creatinine increased to 87/1.49, possibly related with #2, no further episodes of retention only x 1, judiciously hydrated, hold nephrotoxic medication including triamterene/hydrochlorothiazide, repeat 08/30/2024 BUN/creatinine 72/1.21, GFR 45, improving but still not at baseline. #4. Mild to moderate oropharyngeal dysphagia: Repeat chest x-ray 08/30/2024 with no overt evidence of any aspiration/infiltrates, speech therapy evaluation 08/30 test 25 with noted mild to moderate oropharyngeal dysphagia following MBSS, speech therapy recommending easy to chew/thin with meds crushed, alternating bites with sips, one-to-one and given esophageal retention also recommended significant GERD precautions as well as GI involvement. Discussed case with gastroenterology Dr. Barfield who is known to the patient and will evaluate her inpatient. Will increase patient to PPI twice daily. Strongly encouraged again aspiration precautions. #5. Oral thrush: Patient with chronic issues with oral thrush, will maintain on oral nystatin regimen. #6. 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 Shields, not necessarily remission per discussion but on continued observation, encouraged continued follow-up as previously arranged. #7. Dementia with chronic mild cognitive impairment, unclear type with unclear behavioral disturbance history: Complicates presentation, maintain on fall and aspiration precautions, therapies consulted as well as case management, continued on rivastigmine regimen. #8. Hypertension: Given ARIANA as noted holding triamterene/hydrochlorothiazide, PRN hydralazine. #9. Hyperlipidemia: Not on regimen, defer to outpatient. #10. History of breast cancer: Unclear specific location or specific type, status post remote 1992 bilateral mastectomy, eventual reconstructive surgery 2015, considered in remission, encouraged continued follow-up as previously arranged. #11. Chronic degenerative arthritis, chronic left shoulder pain, chronic neck pain: Complicates presentation, maintain on fall precautions, offloading, continue therapies as consulted, PRN Tylenol. #12. Valvular heart disease: 08/23/2024 echocardiogram with EF 60%, posterior mitral valve prolapse, mild MR, grade 1 diastolic dysfunction, mild TR with no significant change from previous echocardiogram. #13. Allergic rhinitis: Will continue patient home loratadine regimen. #14. Former tobacco use: Encouraged continued tobacco cessation. #15. GERD: Given #4 will change to twice daily PPI. GI consulted as noted as suspect contributing to dysphagia and worried about aspiration component. #16. DVT prophylaxis: Heparin. #17. CODE STATUS: DNR-CCA, no intubation. Charges/Coding Visit Charges Inpatient E&M: 36420 Subs Hosp L3
[2024-08-30] MEDS: Pantoprazole Sodium 40 MG in 0.9% Normal Saline (100mL MB+) 100 ML 330 MG IV (08:29)
[2024-08-30] MEDS: Lidocaine 5% Patch 1 PATCH TOPICAL (08:33)
[2024-08-30] MEDS: Aspirin E.C. 81 MG Tablet PO (08:39)
[2024-08-30] MEDS: Lactobacillis Acidophilus 1 CAP PO ×2 (08:39→14:00)
[2024-08-30] MEDS: Heparin Injection (Vial) 5,000 UNIT/ML VIAL 5000 UNIT SC (08:40)
[2024-08-30] MEDS: NYSTATIN 500,000 UNIT/5 ML UDC 500000 UNIT PO ×2 (08:41→14:00)
--- NOTE | 2024-08-30 10:03 | ST.MBS ---
Modified Barium Swallow Patient Information Study Date: 08/30/24 Study Time: 10:00 Direct Billable Minutes: 115 Total Minutes procedure & reportin Diagnosis: PNA J18.9; COPD J44.1 Referring Physician: Amina Cespedes Reason for Referral: BSE 08/29/2024 revealed coughing w/ liquids, multiple swallows w/ po intake. Given history of acute respiratory failure, COPD, and oxygen use, along with observed signs of aspiration, MBSS was recommended to objectively assess swallow function and aspiration risk. Medical History: PMH per BSE 08/29/2024: essential hypertension (on triamterene-HCTZ), COPD with chronic hypoxic respiratory insufficiency (~3.5L NC nightly), remote tobacco use (quit 1994), history of pneumothorax, CML, nonrheumatic mitral/tricuspid valve regurgitation, M?ni?re?s disease (on PRN meclizine), mild cognitive impairment (on rivastigmine), seasonal allergies (on loratadine), history of breast and cervical cancer (s/p mastectomy 1982, reconstruction 2015), SBO, chronic constipation, thrush (on fluconazole), and musculoskeletal complaints including cervicalgia and left shoulder pain. Patient, currently residing in an [facility], presented to [facility] ED with 3?4 days of gradually worsening dyspnea on exertion, progressing to SOB at rest, with associated nonproductive cough and wheezing. She was evaluated at urgent care earlier today where SpO2 was 88% on room air and was referred to ED. Symptoms are consistent with her prior COPD exacerbations. She denies fever, chills, chest pain, palpitations, LE edema, GI or neurologic symptoms. ED evaluation revealed clinical signs of AE-COPD with leukocytosis (WBC 15.2K), CXR limited by dense breast tissue but showing hyperinflation, and VBG consistent with rfvvb-gf-vodreco respiratory insufficiency (pH 7.52, CO2 28, PaO2 36 on RA). She was admitted to PCU for ongoing care with an expected stay >2 midnights. Speech therapy was consulted due to difficulty swallowing pills with applesauce and noted water spilling from mouth while drinking. Patient made NPO pending bedside swallow evaluation. Currently being treated for thrush. No prior documented history of dysphagia, but relevant history includes COPD and recent weight loss. Current Diet Ordered: Regular textures / Thin liquids Dentition: Natural Teeth Respiratory Status: Oxygenating on Room Air Penetration-Aspiration Scale Penetration-Aspiration Scale: OBJECTIVE ASSESSMENT OF SWALLOW FUNCTION (QUANTITATIVE ? PER TRIAL): PENETRATION / ASPIRATION SCALE (GASCA): 1 = does not enter airway 2 = enters airway/above vocal folds/ejected 3 = enters airway/above vocal folds/not ejected 4 = enters airway/contacts vocal folds/ejected 5 = enters airway/contacts vocal folds/not ejected 6 = enters airway/below vocal folds/ejected 7 = enters airway/below vocal folds/not ejected despite effort 8 = enters airway/below vocal folds/no effort VIDEOFLOROSCOPIC SCALE SCORE (GASCA): Grade I = aspiration of material that has penetrated into the laryngeal vestibule, intact cough reflex Grade II = aspiration < 10 % of the bolus, intact cough reflex Grade III = aspiration of < 10 % of the bolus, reduced cough reflex or aspiration of > 10 % of the bolus, intact cough reflex Grade IV = aspiration of > 10 % of the bolus, reduced cough reflex Penetration-Aspiration Scale Score Thin Liquid via teaspoon: Result: 1= does not enter airway Thin Liquid via small single sip: cup: Result: 1= does not enter airway Thin Liquid via sequential sips: cup: Result: 1= does not enter airway Comment: Esophageal screen - Retention in the lower esophagus. Pudding via teaspoon: Result: 1= does not enter airway Comment: Esophageal screen - Mild retention in the UES, upper, and lower esophagus. 1/2 Cookie: Result: 1= does not enter airway Comment: Esophageal screen - Retention throughout the esophagus, primarily in the middle esophagus. Thin Liquid via sequential sips:straw: Result: 2= enter airway/above vocal folds/ejected Comment: Esophageal screen - 3 liquid washes required to clear a majority of cookie coated barium from the esophagus; however, continued retention of barium in the middle and lower esophagus despite multiple liquid washes. Clarence Thick Liquid via small single sip: cup: Result: 1= does not enter airway Barium tablet w/ water: Comment: No PAS due to no clearance of cavity from oral cavity. Barium tablet w/ pudding: Comment: No PAS due to no clearance of cavity from oral cavity. Oral Phase Labial Seal: No Labial Escape Tongue Control During Bolus Hold: Posterior escape of greater than half of bolus Bolus Preparation/Mastication: Slow prolonged chewing/mashing with complete recollection Bolus Transport/Lingual Motion: Slowed tongue motion Oral Residue: Residue collection on oral structures Pharyngeal Phase Initiation of Pharyngeal Swallow: Bolus head at posterior laryngeal surgace of epiglottis Soft Palate Elevation: No bolus between soft palate and pharyngeal wall Laryngeal Elevation: Comp. Superior move thyroid cart w/comp. apprx arytenoid cart-epig pet Anterior Hyoid Excursion: Partial anterior movement Epiglottic Movement: Complete inversion Laryngeal Vestibule Closure at Height of Swallow: Incomplete; narrow column of air/contrast in laryngeal vestibule Pharyngeal Stripping Wave: Present - diminished Pharyngoesophageal Segment Opening: Parital distension and partial duration; parital obstruction of flow Tongue Base Retraction: Wide column of contrast between tongue base & post. pharyngeal wall Pharyngeal Residue: Collection of residue within or on pharyngeal structures Esophageal Phase Esophageal Clearance: Esophageal retention w/ retrograde flow below pharyngoesophageal seg. Diagnosis/Impression Diagnosis: Mild-mod oropharyngeal dysphagia R13.12; Esophageal dysphagia R13.14 Impression: The oral phase is marked by... -Slowed, but complete chewing. -Decreased bolus control w/ premature posterior spillage to the posterior surface of the epiglottis w/ liquids prior to swallow onset. -Slow tongue motion for A-P transport. The pharyngeal phase is marked by... -Decreased pharyngeal motility w/ decreased TB retraction and pharyngeal motility w/ mild-moderate pharyngeal residues throughout the study. Multiple swallows mostly cleared thin liquid residue. Liquid wash mostly cleared food residues. -Decreased anterior hyoid excursion w/ laryngeal penetration w/ sequential sips; however, barium fully ejected after the swallow. No aspiration observed. The patient may be at risk for post prandial aspiration of pharyngeal residues or reflux aspiration given esophageal retention described below. The esophageal phase is marked by... -Decreased UES opening/duration of opening w/ retention of pudding and cookie in the UES. -Retention of pudding and cookie in the esophagus, which somewhat cleared w/ multiple liquid washes. Recommendations Diet: Easy to Chew Textures (Moisten dry textures) and Thin Liquids Comment: Medications crushed in applesauce Stop meal if increased s/s of aspiration or reflux despite use of strategies and resume at a later time Compensatory Strategies: Small Bites, Small Sips, Slow Rate, Alternate bites/solids and sips/liquids (1-2 sips after each bite) and Sitting upright (During and 60min after meal) Recommend Repeat Modified Barium Swallow: TBD Need for Skilled Speech Therapy Services: Yes Comment: -Train pt in strategies to reduce risk for aspiration or reflux aspiration. -Ongoing assessment of diet tolerance. -Train pt in oropharyngeal exercise program: lingual resistance, Chloe, effortful swallow, Javier. Recommended Referrals: GI Consult Education Completed: 1. Described result of evaluation., 2. Pt understands evaluation & agrees with goals and treatment plan. and 7. Pt requires further education on strategies & risks. Status Active ST Patient: Active Contact Information [facility] Speech Therapy:: Shu Schmidt M.A. CCC-AVIATION SUPPORT EQUIPMENT REPAIRER? Speech-Language Pathologist?? [facility] [address] [place] [address]? [email or web address]?? [phone]
--- NOTE | 2024-08-30 11:22 | RAD_ITS ---
EXAM: XR Chest, 1 View CLINICAL INDICATION: ASPIRATION TECHNIQUE: Frontal view of the chest. COMPARISON: No relevant prior studies available. FINDINGS: LUNGS AND PLEURAL SPACES: Hyperlucent lungs. Flattening of the diaphragm. No consolidation. No pneumothorax. HEART: Unremarkable. No cardiomegaly. MEDIASTINUM: Unremarkable. Normal mediastinal contour. BONES/JOINTS: Unremarkable. No acute fracture. RAD/Chest 1 View (Portable) IMPRESSION: Suggestion of COPD. Reading Location: [facility]
--- NOTE | 2024-08-30 13:29 | PCM.PN.ID ---
Physical Exam Narrative Feeling better, eating some, no fever, less abd pain Const alert and no apparent distress General Appearance: cooperative Resp normal air movement and clear to auscultation bilaterally Cardio regular rate and regular rhythm GI soft to palpation, non-tender and non-distended Skin no rashes or lesions noted ID ID: Route of nutrition/ use of supplements: [] Nutritional Intake: [] IV Site: [] Lazaro Catheter: [] Assessment & Plan Assessment/Plan (1) COPD exacerbation: (2) Leukocytosis: QUALIFIERS: Leukocytosis type: unspecified Qualified Code(s): D72.829 - Elevated white blood cell count, unspecified PLAN: suspect gallbladder as source but HIDA neg. Wbc improved on zosyn, will continue. Ucx with only small growth radha. Will follow
--- NOTE | 2024-08-30 16:10 | PCM.HOSP.N ---
Hospitalist Note Patient with onset of chest tightness and discomfort following per RN report recent aerosol. EKG with ST with occasional PAC with ST-T changes not noted on most recent EKG from 10/2022. Cardiac enzymes ordered to be cautious although given age and renal disease certainly could be elevated chronically to some degree. Given low normal range BP will dose with fentanyl 25 mcg x 1 now.
[2024-08-30] MEDS: fentaNYL 100 MCG/2 ML Ampul 25 MCG IV (16:55)
--- NOTE | 2024-08-30 18:35 | CON.PCM.GI_ITS ---
HPI Consult Data Date of Consult: 09/12/24 HPI Narrative Reason for Consultation: Possible aspiration pneumonia HPI Narrative: 84-year-old female admitted with Shortness of breath, URI symptoms and cough for past several days with history of COPD. At urgent care pulse ox was 88% therefore sent to ED. On 3 L of oxygen at night only. She was diagnosed with acute hypercarbic on chronic hypoxic respiratory failure due to acute exacerbation of COPD probably due to metapneumovirus bronchitis. I was asked to see her due to some esophageal dysphagia and possible aspiration pneumonia. She admitted to a 3-day history of increasing cough, productive with foul- smelling, dark green sputum, shortness of breath, fatigue, and fever. States she has had some difficulty swallowing recently, especially with thin liquids. She reports no recent travel or known exposure to sick individuals. She was discovered to have a severe increase in her white blood cell count up to 40,000. She had been on antibiotics and is slowly coming down with antibiotic therapy. Initial CT scan of the chest: In the posterior aspect of the left lower lobe, there is a small area of nodular densities possibly infectious in etiology. In the posterior right lower lobe, there is a pleural-based spiculated density, not present previously, favoring scarring. Lung nodule not excluded. Recent chest x-ray: Consistent with COPD [facility] Medical History Intractable back pain Sciatica Radicular pain of lower extremity Lumbar back pain Thrush Hx of small bowel obstruction Gastritis Constipation Arthritis Easy bruising Back pain Gastric reflux Former smoker On home oxygen therapy Hoarseness Leg cramps History of edema Hypertension Cardiology follow-up encounter History of stress test History of echocardiogram Abdominal pain Meniere disease Essential hypertension History of bilateral breast cancer Cervical cancer Nonrheumatic tricuspid valve regurgitation Nonrheumatic mitral valve regurgitation Pneumothorax CML (chronic myelocytic leukemia) Weight loss COPD (chronic obstructive pulmonary disease) CLL (chronic lymphocytic leukemia) Home Medications ?Medication ?Instructions ?Recorded ?Last Taken ?Type triamterene 37.5 1 tab PO DAILY bp 04/19/19 0 08/22/24 History mg-hydrochlorothiazide 25 mg tablet meclizine 25 mg chewable tablet 25 mg PO BID PRN verti go #20 tabs 04/15/22 08/22/24 Rx (Antivert) Ventolin HFA 90 mcg/actuation 2 puff inhalation Q4H SC N 01/12/24 Unknown Rx aerosol inhaler (albuterol sulfate) shortness of breat h or wheezing #3 device acetaminophen 325 mg capsule 650 mg PO Q4H PRN pain Unknown History fluticasone 232 mcg-salmeterol 14 1 inh inhalation Q12 H copd #1 ea 01/12/24 08/22/24 Rx mcg/actuation breath activated powdr (AirDuo RespiClick) rivastigmine tartrate 1.5 mg 1.5 mg PO BID memory 12/2408/22/24 History capsule tiotropium bromide 18 mcg capsule 18 mcg inhalation DA JUDE copd #3 ea 01/12/24 08/22/24 Rx with inhalation device Allergy/AdvReac Type Severity Reaction Status Date / Time shellfish derived Allergy Severe Anaphylaxis Verified 08/22/24 16:36 bacitracin Allergy Rash Verified 08/22/24 16:36 codeine Allergy Rash Verified 08/22/24 16:36 latex Allergy IF PT USES Verified 08/22/24 16:36 LATEX GLOVES GETS RASH walnut Allergy Swelling Verified 08/22/24 16:36 amoxicillin (From Augmentin) AdvReac Mild Vomiting Verified 08/22/24 16:36 clavulanic acid (From AdvReac Mild Vomiting Verified 08/22/24 16:36 Augmentin) Family History Father Abdominal aortic aneurysm (AAA) Mother Alzheimers disease Surgical History History of esophagogastroduodenoscopy (EGD) Hx of bilateral cataract extraction Hx of lymph node excision Hx of bilateral oophorectomy Hx of colonoscopy History of dilatation and curettage History of lung surgery History of bladder surgery History of cataract surgery History of breast reconstruction History of mastectomy Social History household members: spouse number of children: 2 current occupational status: retired Smoking Status: Former smoker quit date: 02/22/94 how long ago did patient quit smokin ppd since 20s alcohol intake: current alcohol intake frequency: holidays/special occasions only Alcohol type: wine details: 4 glasses wine per week substance use type: does not use Lab / Micro Data 08/30/24 21:45 08/30/24 21:45 Labs: Laboratory Results - last 24 hr 08/29/24 05:52: Diff Path Review June08/30/24 04:42: WBC 31.6 H*, RBC 4.54, Hgb 13.0, Hct 40.4, MCV 89.0, MCH 28.6, MCHC 32.2, RDW Std Deviation 48.3 H, RDW Coeff of Anderson 14.8 H, Plt Count 168, MPV 12.8 H, Immature Gran % (Auto) 3.800 H, Neut % (Auto) 48.3, Lymph % (Auto) 42.2 H, Eagle % (Auto) 5.0, Eos % (Auto) 0.1, Baso % (Auto) 0.6, Absolute Neuts (auto) 15.3 H, Absolute Lymphs (auto) 13.35 H, Nucleated RBC % 0.4, Differential Comment SCANNED, Diff Path Review TREATMENT TECHNICIAN, Sodium 140, Potassium 4.4, Chloride 102, Carbon Dioxide 27.9, Anion Gap 11, BUN 72 H, Creatinine 1.21 H, Estim Creat Clear Calc 22.86 L, Est GFR (MDRD) Non-Af 45 L, BUN/Creatinine Ratio 59.2 H, Glucose 93, Calcium 8.3, Total Bilirubin 0.54, AST 33 H, ALT 51 H, Alkaline Phosphatase 114 H, Total Protein 4.8 L, Albumin 3.1 L, Globulin 1.7 L, Albumin/Globulin Ratio 1.8 Micro: Microbiology 08/28/24 07:45 Urine, Clean Catch Urine Culture - Final Presumptive C albicans Imaging Radiology Impression Chest X-Ray 08/30/24 11:22 IMPRESSION: Suggestion of COPD. Reading Location: [facility] Assessment & Plan Assessment/Plan (1) COPD exacerbation: PLAN: Plan The patient is an 84 y/o F with abdominal pain of unclear etiology complicated by significant leukocytosis. Given CT findings with noted gallbladder mild distention and possible stones gallbladder ultrasound obtained with positive sonographic Arreaga sign but no significant stones only sludge noted and no pericholecystic fluid. Patient did have speech therapy evaluation with noted mild to moderate dysphagia thus concern for aspiration as potentially component although repeat chest x-ray with no overt findings. Mild to moderate oropharyngeal dysphagia: Repeat chest x-ray 08/30/2024 with no overt evidence of any aspiration/infiltrates, speech therapy evaluation 08/30 test 25 with noted mild to moderate oropharyngeal dysphagia following MBSS, speech therapy recommending easy to chew/thin with meds crushed, alternating bites with sips, one-to-one and given esophageal retention also recommended significant GERD precautions as well as my involvement. Recommend to just to increase patient to PPI twice daily for now. I agree with strongly encouraged again aspiration precautions. Charges/Coding Visit Charges Inpatient E&M: 56551 Init Hosp L3
[2024-08-30 18:59] LABS: Allen Test Positive; Base Excess -10 mmol/L (-2 to +2); FI02 30.0; PO2 148 mmHG (75-100); SITE L Radial; SO2 99 % (95-99)
[2024-08-30] MEDS: Budesonide Respules 0.5 MG/2 ML AMPUL.NEB. INHALATION (19:04)
--- NOTE | 2024-08-30 19:08 | CPS ---
TUBE MACHINE OPERATOR took patient off of BIPAP due to patient complaining of nausea, also due to ABG results. RN notified. Patient placed on 2L NC
--- NOTE | 2024-08-30 19:14 | PN.HOSP_ITS ---
Hospitalist Note ABG reviewed. 7.34/28.9/148/17 with base excess -10. This is around 30%, 400 tidal volume Bipap. This was discussed with attending physician, Dr. Cespedes and nighttime hospitalist Dr. Carvajal. Overall it seems patient has mild metabolic acid, pH low normal with compensated respiratory alkalosis. With ABG total bicarb of 17, actual 15 it seems patient has high anion gap metabolic acidosis but BMP bicarb in the morning shows bicarb 28, anion gap 11. BMP bicarb might be wrong/error Patient is already on BiPAP. Signout given to my Nileshl is to follow troponins. Attending physician also talked to dinkey operator Dr. Padilla. Twelve- lead EKG had concern of some ST elevation in the lead I to lead III and ST depression in inferior leads. Follow troponins. I also also discussed with patient's RN, Khushi. Microbiology Past 72 Hours 08/28/24 07:45 Urine, Clean Catch Urine Culture - Final Presumptive C albicans Laboratory Results 08/29/24 05:52: Diff Path Review June foll 08/30/24 04:42: WBC 31.6 H*, RBC 4.54, Hgb 13.0, Hct 40.4, MCV 89.0, MCH 28.6, MCHC 32.2, RDW Std Deviation 48.3 H, RDW Coeff of Anderson 14.8 H, Plt Count 168, MPV 12.8 H, Immature Gran % (Auto) 3.800 H, Neut % (Auto) 48.3, Lymph % (Auto) 42.2 H, [place] % (Auto) 5.0, Eos % (Auto) 0.1, Baso % (Auto) 0.6, Absolute Neuts (auto) 15.3 H, Absolute Lymphs (auto) 13.35 H, Nucleated RBC % 0.4, Differential Comment SCANNED, Diff Path Review POST CLOSING SPECIALIST, Sodium 140, Potassium 4.4, Chloride 102, Carbon Dioxide 27.9, Anion Gap 11, BUN 72 H, Creatinine 1.21 H, Estim Creat Clear Calc 22.86 L, Est GFR (MDRD) Non-Af 45 L, BUN/Creatinine Ratio 59.2 H, Glucose 93, Calcium 8.3, Total Bilirubin 0.54, AST 33 H, ALT 51 H, Alkaline Phosphatase 114 H, Total Protein 4.8 L, Albumin 3.1 L, Globulin 1.7 L, Albumin/Globulin Ratio 1.8 08/30/24 16:55: Troponin T High Sens Pending 08/30/24 18:56: Specimen Type ART, Sample Site L Radial, pH 7.34 L, Bicarbonate Actual 15.6 L, Total CO2 17, Base Excess -10 L, O2 Saturation 99, O2 % 30.0, ABG pCO2 28.9 L, ABG pO2 148 H, Sujit Test Positive, O2 Delivery Device BiPAP, Vent Mode Not entered, Tidal Volume 400.0
[2024-08-30 19:43] LABS: Troponin T High Sensitivity 100 ng/L (<=14)
--- NOTE | 2024-08-30 20:00 | CT_ITS ---
PROCEDURE: BRAIN/HEAD WITHOUT CONTRAST 08/30/2024 REASON FOR EXAM: LETHARGY TECHNIQUE: BRAIN/HEAD WITHOUT CONTRAST Coronal and Sagittal reconstruction series were provided. One or more dose reduction techniques were used (e.g., Automated exposure control, adjustment of the mA and/or kV according to patient size, use of iterative reconstruction technique. RADIATION DOSE SUMMARY: CTDlvol: 44.99 mGy DLP: 812.98 mGycm COMPARISON: 11/18/2022 FINDINGS: No acute intracranial hemorrhage, extra-axial collection, mass effect or evidence of acute infarct. Moderate generalized brain parenchymal volume loss, and chronic small-vessel ischemic changes. Absent tanana ocular lenses. Atherosclerotic calcification of the carotid siphons. Intact skull base and calvarium. No mastoid effusions. Dependent fluid levels throughout the paranasal sinuses can be seen with acute sinusitis, or may reflect recent sinonasal irrigation. CT/Brain/Head without Contrast IMPRESSION: 1. No acute intracranial abnormality. 2. Moderate parenchymal volume loss and chronic microangiopathic changes. 3. Fluid in the sinuses can be seen with acute sinusitis, or from recent sinona tavares irrigation. Reading Location: [id number]
--- NOTE | 2024-08-30 20:05 | CT_ITS ---
PROCEDURE: STROKE CTA HEAD AND NECK W/CON 08/30/2024 REASON FOR EXAM: LETHARGY TECHNIQUE: STROKE CTA HEAD AND NECK W/CON Multiplanar Sagittal and Coronal images were obtained. CONTRAST: Isovue 370 VOLUME: mL One or more dose reduction techniques were used (e.g., Automated exposure control, adjustment of the mA and/or kV according to patient size, use of iterative reconstruction technique). RADIATION DOSE SUMMARY: CTDlvol: 13.07+ 10.86 mGy DLP: 415.24 mGycm COMPARISON: Same day CT head. FINDINGS: The common carotid arteries are patent. Atherosclerosis of the right carotid bulb without hemodynamically significant stenosis. The internal carotid arteries are patent. The left cervical vertebral artery is dominant when compared to the right vertebral artery. The anterior cerebral, anterior communicating, middle cerebral, and posterior cerebral arteries are patent. The vertebrobasilar system is patent. Biapical centrilobular emphysema. See same day CT head for nonvascular findings. CT/STROKE CTA Head AND Neck W/Con IMPRESSION: No acute arterial abnormality of the head or neck. Biapical centrilobular emphysema. Reading Location: [place] [id number]
--- NOTE | 2024-08-30 20:50 | CT_ITS ---
PROCEDURE: CTA CHST, ABD, PEL W AND/OR WO 08/30/2024 REASON FOR EXAM: MENTAL STATUS CHANGE TECHNIQUE: CTA CHST, ABD, PEL W AND/OR WO coronal and Sagittal reconstruction series were provided. One or more dose reduction techniques were used (e.g., Automated exposure control, adjustment of the mA and/or kV according to patient size, use of iterative reconstruction technique. CONTRAST: Isovue 370 VOLUME: 78 mL RADIATION DOSE SUMMARY: CTDlvol: 5.39+ 6.59 mGy DLP: 400.82 mGycm COMPARISON: 08/28/2024 CT abdomen pelvis. FINDINGS: CHEST: Bilateral breast implants. Degenerative changes of the spine. Subcentimeter left thyroid nodule. No mediastinal lymphadenopathy. Normal caliber thoracic aorta. No evidence of aortic dissection or aneurysm. Atherosclerosis of the origins of the great vessels which are patent. Coronary artery calcifications are present. No pulmonary artery filling defects. Moderate centrilobular emphysema (suboptimally assessed due to motion artifact). No pulmonary consolidation. ABDOMEN AND PELVIS: The peripheral soft tissues unremarkable. Degenerative changes of the spine. Moderate atherosclerosis of a normal caliber abdominal aorta. The celiac trunk, superior mesenteric artery, inferior mesenteric artery are patent. The bilateral renal arteries are patent. The bilateral common iliac arterial systems are patent. Hypodense liver suggestive of steatosis. Left hepatic cyst. Distended gallbladder with probable cholelithiasis. Hyperenhancing gallbladder wall. Fatty atrophy of the pancreas. Small spleen. The adrenals are unremarkable. Left kidney simple cyst. Additional bilateral cortical scarring. No hydroureteronephrosis. Lazaro catheter within the urinary bladder. Loops of small bowel measuring up to 3.0 cm without a definite transition point. Normal caliber colon. CT/CTA Chst, Abd, Pel W and/or WO IMPRESSION: Distended gallbladder with a hyperenhancing wall and probable cholelithiasis. Consider ultrasound to exclude acute cholecystitis. Borderline dilated loops of small bowel without a definite transition point whi ch may represent a developing ileus or low-grade small bowel obstruction. Additional chronic and ancillary findings as above. Reading Location: [place] [id number]
--- NOTE | 2024-08-30 21:01 | CPS ---
Stroke alert called on patient, unable to obtain pulse ox reading, NC increased to 6L, patient in no signs of respiratory distress at his time
[2024-08-30] MEDS: Lorazepam 2 MG/ML WCH Syringe 0.5 MG IV (21:08)
[2024-08-30 21:21] LABS: Allen Test Positive; Base Excess -11 mmol/L (-2 to +2); FI02 6.0; PO2 127 mmHG (75-100); SITE L Radial; SO2 98 % (95-99)
--- NOTE | 2024-08-30 21:31 | NURSING ---
This RN and Nightshift RN went to bedside to give bedside report at 1950. Pt lethargic, not responsive to painful stimuli. RN OFFICE called. See RN OFFICE documentation.
[2024-08-30] MEDS: Sodium Bicarbonate 8.4% 50 ML Syringe 100 MEQ IV (21:54)
[2024-08-30] MEDS: NORMAL SALINE 999 ML IV (22:01)
[2024-08-30 22:05] LABS: Hematocrit 27.2 % (37-47); Hemoglobin 8.4 g/dL (12.0-15.0); Mean Corp Hgb Conc 30.9 g/dL (32-36); Mean Corpuscular Volume 94.8 fL (81-99); Mean Platelet Vol. 12.4 fl (6.2-12.0); POSITIVE COUNT YES; POSITIVE DIFFERENTIAL YES; POSITIVE MORPHOLOGY YES; Platelet Count 154 K/mm3 (150-450); RBC Distribution Width CV 15.2 % (11.6-14.6); RBC Distribution Width SD 53.1 fl (35.1-43.9); Red Blood Count 2.87 M/mm3 (4.2-5.4)
[2024-08-30 22:06] LABS: Differential Indicated MANUAL DIFF
[2024-08-30 22:08] LABS: White Blood Count 50.3 K/mm3 (4.4-11.0)
[2024-08-30 22:31] LABS: Anion Gap 14 (5-15); BUN 78 mg/dL (4-19); BUN/Creat Ratio 54.9 RATIO (10-20); Calcium,Total 6.9 mg/dL (7.6-11.0); Carbon Dioxide 18.5 mmol/L (21.0-32.0); Chloride 107 mmol/L (98-108); Estimated Creatinine Clearance 19.77 ml/min (50-250); Glucose 139 mg/dL (70-99); Potassium 4.7 mmol/L (3.3-5.1)
[2024-08-30 22:58] LABS: Neutrophil-Band 2 % (0-5); Neutrophil-Segmented 60 % (47-70); Total Cells Counted 100 (MANUAL DIFF)
[2024-08-30 23:03] LABS: Troponin T High Sens 2 HR 167 ng/L (<=14)
[2024-08-30] MEDS: Sodium Bicarbonate 50 MEQ in Dextrose 5%-Water (1000mL Bag) 1,000 ML 100 MEQ IV (23:38)
--- NOTE | 2024-08-30 23:46 | CPS ---
RIGGING SUPERVISOR notified Dr. Carvajal of critical ABG results ABG unable to be re-run due to insufficient sample size
[2024-08-31 00:47] LABS: Troponin T High Sens 4 HR 264 ng/L (<=14)
--- NOTE | 2024-08-31 01:10 | PN.HOSP_ITS ---
Hospitalist Note Rapid response called around 7:50 PM. I arrived at the bedside a few minutes later. Patient was sitting back in bed with eyes open but was not responsive. She did not respond to verbal command or to pain stimuli. Vitals showed sinus tachycardia and normal BP in the 110s over 80s. This notably was a zhou change in her mental status from 20 minutes before when nursing saw her. They and family had noted the patient was confused today but she was still following commands and interacting appropriately. Given concern for stroke versus int racranial bleed, stroke alert was called. CT brain and CTA head/neck were obtained. While CT scans were being done patient became hypotensive to the 60s over 40s. CT scans did not show any acute pathology on wet read. She did maintain a pulse and BP came up to the 100s over 60s without intervention. She was taken to triage area by CT and teleneurology evaluated her further. He confirms no abnormal findings on CT scan. Notably patient did have elevated troponins prior to this episode and was reporting chest pain. Neurology recommended CT chest/abdomen/pelvis and stat labs for further workup. CT scans were obtained showed no aortic dissection or other concerning findings. Patient was then moved back to her room at that time. Stat ABG showed pH 7.18, which was considerably worse than ABG at 7 PM that showed pH 7.36. Stat labs showed a lactate of 7.0 and hemoglobin 8.4, significantly down from hemoglobin of 13 this morning. Unfortunately there is no source for blood loss for the patient. Patient's daughter and son were at bedside throughout this time and on further discussion with them, he decided to hold on blood transfusion for the patient and monitor clinically and keep her comfortable. Shortly after midnight patient bradied down and then went asystolic. No pulse was verified by 2 nurses. Time of 00:23.
--- NOTE | 2024-08-31 01:20 | DCINST_ITS ---
Discharge Instructions DC O2, CPAP, BIPAP needs Home O2 Discharge instructions: No Follow Up Care Test Results: Test results from this visit will be discussed in further detail at your follow- up appointment, if applicable. Discharge Plan Admission Admit Date/Time: 08/22/24 22:05 Primary Reason for Your Visit: shortness of breath Attending Provider: Amina Cespedes Primary Care Provider: Donnell Tse Consulting Providers: Naeem Barnett; Jony Lantigua; Radames Flowers; Mike Magana; Conrad Antunez; Naeem Cabral; Ty Rosales; Beltran Rosales; Arelis Hargrove; Valentín Chau; Juventino Parker; Clemente Rao; Kaylie Byrd; Qian Lindsay; Niru Sandoval; Julio Galvez; Brad Richmond; Kev Elias; Tulio Danielle; Sunil Joshi; Jeny Hunt; Shaji Conrad; Ignacio Kilgore; Donnell Dash; Candido Connell; Omid Garcia; Riley Tenorio Instructions Patient Instructions: ED COPD Flare Discharge Orders/Prescriptions Prescriptions: No Action fluticasone propion-salmeterol [AirDuo RespiClick] 232-14 mcg/actuation aerosol powdr breath activated 1 inh inhalation Q12H Qty: 1 11RF albuterol sulfate [Ventolin HFA] 90 mcg/actuation HFA aerosol inhaler 2 puff inhalation Q4H PRN (Reason: shortness of breath or wheezing) Qty: 3 3RF tiotropium bromide 18 mcg capsule, w/inhalation device 18 mcg inhalation DAILY Qty: 3 3RF rivastigmine tartrate 1.5 mg capsule 1.5 mg PO BID acetaminophen 325 mg capsule 650 mg PO Q4H PRN (Reason: pain) triamterene-hydrochlorothiazid 1 EACH tablet 1 tab PO DAILY meclizine [Antivert] 25 mg tablet,chewable 25 mg PO BID PRN (Reason: vertigo) Qty: 20 0RF Referrals / Follow Up: Donnell Tse MD [Primary Care Provider] - 3-5 Days Disposition Disposition (needs filled in before D/C Order can be placed):
--- NOTE | 2024-08-31 01:21 | PCM.DEATH ---
Date of Admission: 08/22/24 Principle Diagnosis Problem List: Active and Suspected Problems (Updated 08/23/24 @ 06:[address] Naeem Barnett DO) Pneumonia (Acute) Leukocytosis (Acute) Acute respiratory failure (Acute) Essential hypertension (Acute)
[2024-08-31 01:51] LABS: Reflex Lactate? Y
--- NOTE | 2024-08-31 07:17 | EXP.PCM_ITS ---
Preliminary Cause of Preliminary Cause of Preliminary Cause of : #1. Shock, Undifferentiated versus Hypovolemic versus Hemorrhagic, uncertain with eventual Cardiopulmonary arrest #2. Acute NSTEMI, suspected demand related secondary to #1, complicated by #3- #6 #3. Acute hypercarbic on chronic hypoxic respiratory failure secondary to Acute COPD exacerbation secondary to acute human metapneumovirus bronchitis/acute viral syndrome #4. Suprapubic discomfort, abdominal pain of unclear etiology complicated by significant leukocytosis, UTI ruled out, no obvious PNA/Infiltrate of CXR, initial concern possible Acute Cholecystitis however HIDA negative, empirically kept on Zosyn #5. ARI[place] on Chronic Kidney Disease Stage II per GFR trending #6. Mild to moderate oropharyngeal dysphagia #7. Oral thrush #8. 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 Dementia with chronic mild cognitive impairment, unclear type with unclear behavioral disturbance history #10. Hypertension #11. Hyperlipidemia #12. History of breast cancer, Unclear specific location or specific type #13. Chronic degenerative arthritis, chronic left shoulder pain, chronic neck pain #14. Valvular heart disease #15. Allergic rhinitis #16. Former tobacco use: #17. GERD Date of Admission: 08/22/24 Date of : 08/31/24 (Time of 00:23) Principle Diagnosis Problem List: Active and Suspected Problems (Updated 08/23/24 @ 06:[address] Naeem Barnett, DO) Pneumonia (Acute) Leukocytosis (Acute) Acute respiratory failure (Acute) Essential hypertension (Acute) Hospital Course The patient is an 84 y/o F w/ PMHx: CKD stage II per GFR trending, HTN, HLD, Former tobacco use, COPD w/ Chronic Hypoxic Respiratory Failure (3.5L NC q HS), Hx CML/CLL, Valvular Heart Disease, Hx SBO, Hx Breast CA unclear type s/p remote mastectomy (1982) and reconstruction, Hx Cervical CA s/p hysterectomy who presented to the [facility] ED on 08/22/2024 with ongoing progressively worsening dyspnea and cough starting 3 to 4 days previous as well as URI type symptoms including wheezing and recent urgent care evaluation with noted hypoxia 88% on room air prompting referral to the ED for evaluation. Patient admitted to the PCU, full respiratory panel with human metapneumovirus, urine antigens negative, COVID- negative, chest x-ray with COPD type changes, CT chest follow-up with contrast with nodular densities in posterior aspect of left lower lobe and pleural-based spiculated density favoring scarring in the posterior right lower lobe with severe emphysematous changes and bilateral linear atelectasis, maintained on scheduled DuoNeb therapy, PRN Albuterol, Mucinex, Pep therapy, aggressive I-S and encouraged head of bed, initially maintained on IV Solu-Medrol however given significant leukocytosis transitioned to oral prednisone therapy with plan for 5-day duration burst therapy per pulmonary recommendation, initially attempted BiPAP however unable to tolerate therefore placed on low-dose Ativan and Seroquel transition to BuSpar 10 mg p.o. twice daily in addition to Seroquel low-dose 25 mg p.o. twice daily; however, given transitioned off D/C. Maintained on oral doxycycline 100 mg p.o. twice daily through 08/29/2024. During admission leukocytosis increased despite transition off IV steroids as initially suspected leukocytosis secondary to primarily IV Solu-Medrol with eventual prednisone transition. Urinalysis not marked appearing but patient did have 08/28/2024 1 episode of urinary retention but none since per discussion with staff. Given CT findings with noted gallbladder mild distention and possible stones gallbladder ultrasound obtained with positive sonographic Arreaga sign but no significant st ones only sludge noted and no pericholecystic fluid. Discussed with general surgery 08/29/2024 and HIDA scan obtained but was noted to be negative for acute cholecystitis. Procalcitonin minimally elevated. 08/29/2024 LFTs with AST/LT 33/51, alk phos 116. Currently maintained on IV Zosyn given initial concerns for possibly cholecystitis but as noted HIDA negative, surgery feels not an acute concern. MRSA screen requested. 08/29/24 discussed with microbiology and UCx 08/28/24 with no marked growth thus far. Speech therapy evaluation with noted mild to moderate dysphagia thus concern for aspiration as potentially component although repeat chest x-ray with no overt findings. Infectious disease following and recommended continued empiric zosyn which was started and continued. Admission BUN/Cr 31/0.76, GFR 79, baseline renal function primarily 0.7-0.9, 08/28/2024 BUN/creatinine 75/1.17, GFR 47--> 08/29/2024 BUN/creatinine increased to 87/1.49, judiciously hydrated, held nephrotoxic medication including triamterene/hydrochlorothiazide, repeat 08/30/2024 BUN/creatinine 72/1.21, GFR 45, improved. Speech therapy evaluation 08/30 with noted mild to moderate oropharyngeal dysphagia following MBSS, speech therapy recommending easy to chew/thin with meds crushed, alternating bites with sips, one-to-one and given esophageal retention also recommended significant GERD precautions as well as GI involvement. Discussed case with gastroenterology Dr. Barfield who is known to the patient with plan to evaluate. Increased PPI to BID. On 08/31/24 patient with onset of chest discomfort. EKG with nonspecific changes reviewed with Cardiology. Recommended avoidance of further aerosols so rate may decrease and planned cardiac enzyme cycling. Enzymes returned elevated with plan for cardiology consultation. At 7:50 pm, rapid response called, patient found seated upright, unresponsive, in sinus tachycardia and normal BP in the 110s over 80s, obtained stat CT brain and CTA head/neck with no overt acute findings. While CT scans were being done patient became hypotensive to the 60s over 40s. She did maintain a pulse and BP came up to the 100s over 60s without intervention. She was taken to triage area by CT and teleneurology evaluated her further. Neurology recommended CT chest/abdomen/pelvis and stat labs for further workup. CT scans were obtained showed no aortic dissection or other concerning findings. Patient was then moved back to her room at that time. Stat ABG showed pH 7.18, which was considerably worse than ABG 7 PM that showed pH 7.36. Stat labs showed a lactate of 7.0 and hemoglobin 8.4, significantly down from hemoglobin of 13 earlier in the AM. There was no obvious source for ABLA. Patient daughter and son at bedside transitioned her to comfort care status at that time. Patient near midnight started to have marked arrhythmia, eventually with notable bradycardia and eventual asystole, passing at 00:23 on 08/31/24.
--- NOTE | 2024-09-01 10:07 | CASEMGMT ---
Discharge Planning [facility] notified that patient has . Inna Elizabeth DC Planning Asst.
== END 2024-08-31 00:23 | DRG 190 ==
LOC: ED 19:33 → PCU 22:50
PROVIDERS: Hospitalist; Internal Medicine; Admitting Provider Internal Medicine; Emergency Provider Surgery; PCP Family Medicine; Visit Provider Family Medicine
DX: J44.1 Chronic obstructive pulmonary disease with (acute) exacerbation (principal); J96.21 Acute and chronic respiratory failure with hypoxia; J69.0 Pneumonitis due to inhalation of food and vomit; J96.22 Acute and chronic respiratory failure with hypercapnia; G93.41 Metabolic encephalopathy; I21.A1 Myocardial infarction type 2; R57.9 Shock, unspecified; F03.94 Unspecified dementia, unspecified severity, with anxiety; N17.9 Acute kidney failure, unspecified; B37.0 Candidal stomatitis; J44.0 Chronic obstructive pulmonary disease with (acute) lower respiratory infection; I36.1 Nonrheumatic tricuspid (valve) insufficiency; I12.9 Hypertensive chronic kidney disease with stage 1 through stage 4 chronic kidney disease, or unspecified chronic kidney disease; D69.6 Thrombocytopenia, unspecified; J43.9 Emphysema, unspecified; J30.2 Other seasonal allergic rhinitis; I34.0 Nonrheumatic mitral (valve) insufficiency; K21.9 Gastro-esophageal reflux disease without esophagitis; N18.2 Chronic kidney disease, stage 2 (mild); E78.5 Hyperlipidemia, unspecified; K29.70 Gastritis, unspecified, without bleeding; M19.012 Primary osteoarthritis, left shoulder; I46.9 Cardiac arrest, cause unspecified; J20.8 Acute bronchitis due to other specified organisms; M25.512 Pain in left shoulder; B97.81 Human metapneumovirus as the cause of diseases classified elsewhere; R13.12 Dysphagia, oropharyngeal phase; Z66 Do not resuscitate; R33.9 Retention of urine, unspecified; Z79.51 Long term (current) use of inhaled steroids; Z79.899 Other long term (current) drug therapy; Z87.891 Personal history of nicotine dependence; Z11.52 Encounter for screening for COVID-19; Z85.3 Personal history of malignant neoplasm of breast; Z90.13 Acquired absence of bilateral breasts and nipples
CPT/HCPCS: 36415; 36600; 70450; 70496; 70498; 71045; 71046; 71250; 71275; 74174; 74176; 74230; 76705; 78227; 80048; 80053; 80076; 81001; 82803; 82962; 83605; 83735; 84100; 84145; 84443; 84484; 85025; 86850; 86900; 86901; 87086; 87088; 87449; 87631; 87633; 92610; 92611; 93005; 93306; 94002; 94003; 94640; 94668; 94762; 97110; 97116; 97162; 97166; 97530; 97535; 97803; 99252; 99285; A9537; Q9967; A4216; G0463; J2405; J2805